=== PATIENT | female | born 1940 | race Caucasian/White ===

== ENCOUNTER 2017-06-24 20:41 | Emergency (ER) | payer OTHER ==
[2017-06-24 22:20] LABS: Absolute Lymphocytes (CBC) 2.2 K/uL (0.7-4.9); Absolute Monocytes 1.3 K/uL (0.1-1.3); Absolute Neutrophil 7.7 K/uL (1.8-8.0); Basophils % 0.6 % (0-1.3); Eosinophils % 1.9 % (0-4.4); Hematocrit 37.6 % (36.0-45.0); Lymphocytes % 19.5 % (15.3-44.8); MCH 28.5 pg (27.0-35.0); MCV 89.5 fL (80-100); MPV 9.5 fL (7.6-11.3); Monocytes % 11.1 % (3.3-12.3)
[2017-06-24] MEDS ORDERED: ONDANSETRON 4 MG/2 ML VIAL ONE (22:22)
[2017-06-24] MEDS ORDERED: LOPERAMIDE HCL 2 MG CAPSULE ONE (22:22)
[2017-06-24] MEDS ORDERED: cloNIDine HCl 0.1 MG TAB ONE (22:22)
[2017-06-24 22:25] LABS: Albumin 3.7 g/dL (3.2-5.5); Bilirubin Total 0.6 mg/dL (0.3-1.2); Protein, Total 7.5 g/dL (6.0-8.3)
--- NOTE | 2017-06-24 22:25 | RAD REPORT ---
EXAM DESCRIPTION: Giovanny Single View06/24/2017 10:13 pm CLINICAL HISTORY: Chest pain COMPARISON: March 2017 FINDINGS: The lungs appear clear of acute infiltrate. The heart is normal size IMPRESSION: No acute abnormalities displayed
--- NOTE | 2017-06-25 00:08 | ER ---
Nurse's Notes [facility] Name: Bharati Lancaster Age: 77 yrs Sex: Female : 1940 Arrival Date: 06/24/2017 Time: 20:57 Bed 4 Private MD: Diagnosis: Gastroenteritis;Uncontrolled hypertension Presentation: 06/24 21:06 Presenting complaint: Patient states: nausea/diarrhea. pt denies vomiting. pt c/o ak1 general weakness. pt vitals at home at 2030 were 216/116 110pulse. Transition of care: patient was not received from another setting of care. Onset of symptoms was June 24, 2017. Care prior to arrival: None. 21:06 Method Of Arrival: Wheelchair ak1 21:06 Acuity: GONZALEZ 3 ak1 Historical: - Allergies: 21:07 ACETAMINOPHEN; ak1 21:07 BACLOFEN; ak1 21:07 Codeine; ak1 21:07 Darvocet-N 100; ak1 21:07 Hydrocodone-Acetaminophen; ak1 21:07 plastic tape; ak1 21:07 Morphine; ak1 - Home Meds: 21:39 allopurinol 300 mg Oral tab 1 tab once daily [Active]; amlodipine 5 mg tab once daily tl2 [Active]; calcium carbonate 600 mg (1,500 mg) Oral tab daily [Active]; clonidine HCl 0.2 mg Oral tab 3 times per day [Active]; clonidine HCl 0.1 mg Oral tab [Active]; CURAPHEN daily [Active]; furosemide 20 mg Oral tab 1 tab Every other day [Active]; MCT Oil 7.7 kcal/mL Oral oil Every other day [Active]; Multiple Vitamins Oral tab daily [Active]; Neurontin 300 mg Oral cap 1 cap 3 times per day [Active]; omeprazole 40 mg Oral cpDR 1 cap once daily [Active]; paroxetine HCl 20 mg Oral tab [Active]; Synthroid 50 mcg Oral tab 1 tab once daily [Active]; Vitamin D3 800 unit Oral tab daily [Active]; - PMHx: 21:39 Atrial Fib; CHF; Hyperlipidemia; Hypertension; Hypothyroidism; tl2 - Immunization history:: Adult Immunizations up to date. - Social history:: Smoking status: Patient/guardian denies using tobacco. Screenin:34 Abuse screen: Denies threats or abuse. Nutritional screening: No deficits noted. tl2 Tuberculosis screening: No symptoms or risk factors identified. Fall Risk Secondary diagnosis (15 points). Assessment: 21:33 General: Appears in no apparent distress. uncomfortable, Behavior is cooperative, tl2 appropriate for age, anxious. 21:34 Pain: Complains of pain in headache. Neuro: Level of Consciousness is awake, alert, tl2 obeys commands, Oriented to person, place, time, situation. Cardiovascular: Reports shortness of breath, Denies chest pain, Rhythm is sinus rhythm. Respiratory: Reports shortness of breath Airway is patent Respiratory effort is even, unlabored, Respiratory pattern is regular, symmetrical, Breath sounds are clear bilaterally. GI: Abdomen is round Bowel sounds present X 4 quads. Reports diarrhea, nausea, Patient currently denies vomiting. : No signs and/or symptoms were reported regarding the genitourinary system. Derm: Skin is pink, warm \T\ dry. 21:39 Reassessment: Patient appears in no apparent distress at this time. Pt states she did tl2 not take her BP medication today because of her nausea. 22:52 Reassessment: Patient appears in no apparent distress at this time. Patient and/or tl2 family updated on plan of care and expected duration. Pain level reassessed. Patient is alert, oriented x 3, equal unlabored respirations, skin warm/dry/pink. BP trending down, will continue to monitor Patient states feeling better. 23:54 Reassessment: Patient appears in no apparent distress at this time. Patient and/or bp family updated on plan of care and expected duration. Pain level reassessed. Patient is alert, oriented x 3, equal unlabored respirations, skin warm/dry/pink. Patient states feeling better. 06/25 00:28 Reassessment: PT D/C HOME WITH FAMILY VIA W/C, DX WITH VIRAL GASTROENTERITIS. bp Vital Signs: 06/24 21:05 BP 235 / 86; Pulse 96; Resp 18; Temp 99.1(TE); Pulse Ox 96% on R/A; Weight 90.72 kg ak1 (R); Height 5 ft. 5 in. (165.10 cm) (R); Pain 0/10; 22:09 BP 222 / 89; Pulse 102; Resp 22; Pulse Ox 99% on R/A; tl2 22:48 BP 200 / 83; Pulse 95; Resp 19; Pulse Ox 96% on R/A; mt 22:52 BP 200 / 83; Pulse 92; Resp 18; Pulse Ox 94% on R/A; tl2 23:03 BP 189 / 75; Pulse 98; Resp 18; Pulse Ox 98% on R/A; bp 23:54 BP 168 / 72; Pulse 92; Resp 18; Pulse Ox 95% on R/A; bp 06/25 00:08 BP 182 / 69; Pulse 88; Resp 17; Pulse Ox 98% on R/A; mt 06/24 21:05 Body Mass Index 33.28 (90.72 kg, 165.10 cm) ak1 ED Course: 06/24 20:57 Patient arrived in ED. al2 21:07 Triage completed. ak1 21:07 Arm band placed on Patient placed in an exam room, on a stretcher, Patient notified of ak1 wait time. 21:34 Patient has correct armband on for positive identification. Bed in low position. Call tl2 light in reach. Side rails up X2. Adult w/ patient. 21:38 Ryder Briscoe MD is Attending Physician. ps1 21:52 Pramod Lee RN is Primary Nurse. bp 22:00 Inserted saline lock: 22 gauge in left forearm, using aseptic technique. Blood tl2 collected. placed by TOI Perez. 22:12 X-ray completed. Portable x-ray completed in exam room. Patient tolerated procedure kw1 well. 22:27 BNP Sent. bp 22:27 CXR XRAY Sent. bp 22:27 CBC with Diff Sent. bp 22:27 CMP Sent. bp 22:27 Troponin (emerg Dept Use Only) Sent. bp 06/25 00:28 No provider procedures requiring assistance completed. IV discontinued, intact, bp bleeding controlled, No redness/swelling at site. Pressure dressing applied. Administered Medications: 06/24 22:07 Drug: Zofran 4 mg Route: IVP; Site: left forearm; tl2 06/25 00:28 Follow up: Response: No adverse reaction bp 06/24 22:08 Drug: Imodium A-D 2 mg Route: PO; tl2 06/25 00:27 Follow up: Response: No adverse reaction bp 06/24 22:08 Drug: cloNIDine 0.2 mg Route: PO; tl2 06/25 00:27 Follow up: Response: No adverse reaction bp Outcome: 00:07 Discharge ordered by . ps1 00:29 Discharged to home via wheelchair, with family. bp 00:29 Condition: stable 00:29 Discharge instructions given to patient, family, Instructed on discharge instructions, follow up and referral plans. medication usage, Demonstrated understanding of instructions, follow-up care, medications, Prescriptions given X 2. 00:29 Patient left the ED. bp Signatures: Sarai Paredes RN RN ak1 Lala Cleary RN RN tl2 Christin Rose mt, Brian, RN RN bp Ryder Briscoe MD MD ps1 Stiven, Madelin arteaga1 Mechelle Vigil2 Corrections: (The following items were deleted from the chart) 06/24 21:36 21:33 General: Appears in no apparent distress. uncomfortable, Behavior is cooperative, tl2 appropriate for age, anxious, tl2
--- NOTE | 2017-06-25 00:08 | EDPHYS ---
Physician Documentation [facility] Name: Bharati Lancaster Age: 77 yrs Sex: Female : 1940 Arrival Date: 06/24/2017 Time: 20:57 Bed 4 Private MD: ED Physician Ryder Briscoe HPI: 06/24 23:58 This 77 yrs old Female presents to ER via Wheelchair with complaints of ps1 Nausea/Vomiting/Diarrhea. 23:58 The patient presents to the emergency department with nausea, vomiting, diarrhea, that ps1 is continuous, 10 times today. Onset: The symptoms/episode began/occurred 2 day(s) ago. Possible causes: unknown. The symptoms are alleviated by nothing. Associated signs and symptoms: Pertinent positives: headache and high blood pressure secondary to not being able to take medications. . hx of CHF. Sees Dr. Morton. . Historical: - Allergies: 21:07 ACETAMINOPHEN; ak1 21:07 BACLOFEN; ak1 21:07 Codeine; ak1 21:07 Darvocet-N 100; ak1 21:07 Hydrocodone-Acetaminophen; ak1 21:07 plastic tape; ak1 21:07 Morphine; ak1 - Home Meds: 21:39 allopurinol 300 mg Oral tab 1 tab once daily [Active]; amlodipine 5 mg tab once daily tl2 [Active]; calcium carbonate 600 mg (1,500 mg) Oral tab daily [Active]; clonidine HCl 0.2 mg Oral tab 3 times per day [Active]; clonidine HCl 0.1 mg Oral tab [Active]; CURAPHEN daily [Active]; furosemide 20 mg Oral tab 1 tab Every other day [Active]; MCT Oil 7.7 kcal/mL Oral oil Every other day [Active]; Multiple Vitamins Oral tab daily [Active]; Neurontin 300 mg Oral cap 1 cap 3 times per day [Active]; omeprazole 40 mg Oral cpDR 1 cap once daily [Active]; paroxetine HCl 20 mg Oral tab [Active]; Synthroid 50 mcg Oral tab 1 tab once daily [Active]; Vitamin D3 800 unit Oral tab daily [Active]; - PMHx: 21:39 Atrial Fib; CHF; Hyperlipidemia; Hypertension; Hypothyroidism; tl2 - Immunization history:: Adult Immunizations up to date. - Social history:: Smoking status: Patient/guardian denies using tobacco. ROS: 23:58 Constitutional: Negative for fever, chills, and weight loss, Eyes: Negative for injury, ps1 pain, redness, and discharge, Neck: Negative for injury, pain, and swelling, Cardiovascular: Negative for chest pain, palpitations, and edema, Respiratory: Negative for shortness of breath, cough, wheezing, and pleuritic chest pain, MS/Extremity: Negative for injury and deformity, Skin: Negative for injury, rash, and discoloration. 23:58 Abdomen/GI: Positive for nausea, vomiting, and diarrhea. Exam: 23:58 Constitutional: This is a well developed, well nourished patient who is awake, alert, ps1 and in no acute distress. Head/Face: Normocephalic, atraumatic. Neck: Trachea midline, no thyromegaly or masses palpated, and no cervical lymphadenopathy. Supple, full range of motion without nuchal rigidity, or vertebral point tenderness. No Meningismus. Chest/axilla: Normal chest wall appearance and motion. Nontender with no deformity. No lesions are appreciated. Cardiovascular: Regular rate and rhythm. No gallops, murmurs, or rubs. Normal PMI, no JVD. No pulse deficits. Respiratory: Lungs have equal breath sounds bilaterally, clear to auscultation and percussion. No rales, rhonchi or wheezes noted. No increased work of breathing, no retractions or nasal flaring. Abdomen/GI: Soft, non-tender, with normal bowel sounds. No distension or tympany. No guarding or rebound. No evidence of tenderness throughout. Skin: Warm, dry with normal turgor. Normal color with no rashes, no lesions, and no evidence of cellulitis. MS/ Extremity: Pulses equal, no cyanosis. Neurovascular intact. Full, normal range of motion. Neuro: Awake and alert, GCS 15, oriented to person, place, time, and situation. Cranial nerves II-XII grossly intact. Sensory grossly intact. Vital Signs: 21:05 BP 235 / 86; Pulse 96; Resp 18; Temp 99.1(TE); Pulse Ox 96% on R/A; Weight 90.72 kg ak1 (R); Height 5 ft. 5 in. (165.10 cm) (R); Pain 0/10; 22:09 BP 222 / 89; Pulse 102; Resp 22; Pulse Ox 99% on R/A; tl2 22:48 BP 200 / 83; Pulse 95; Resp 19; Pulse Ox 96% on R/A; mt 22:52 BP 200 / 83; Pulse 92; Resp 18; Pulse Ox 94% on R/A; tl2 23:03 BP 189 / 75; Pulse 98; Resp 18; Pulse Ox 98% on R/A; bp 23:54 BP 168 / 72; Pulse 92; Resp 18; Pulse Ox 95% on R/A; bp 03/ 00:08 BP 182 / 69; Pulse 88; Resp 17; Pulse Ox 98% on R/A; mt 03 21:05 Body Mass Index 33.28 (90.72 kg, 165.10 cm) ak1 MDM: 06/24 21:46 Patient medically screened. ps1 06/25 00:04 Data reviewed: vital signs, nurses notes, lab test result(s), EKG, radiologic studies. ps1 ED course: Gave zofran and immodium. Symptoms improved. Able to tolerate PO. Clonidine given. BP improved. Stable to go home with follow up with DR. Morton. Home with zofran. . 03 21:46 Order name: CBC with Diff ps1 06/24 21:46 Order name: CMP ps1 03 21:46 Order name: Troponin (emerg Dept Use Only) ps1 06/24 22:21 Order name: CBC with Automated Diff; Complete Time: 22:21 EDMS 06/24 22:21 Order name: BNP ps1 06/24 22:22 Order name: Comprehensive Metabolic Panel; Complete Time: 22:31 EDMS 06/24 21:46 Order name: CXR XRAY ps1 06/24 22:26 Order name: RAD; Complete Time: 22:31 EDMS 06/24 22:28 Order name: Troponin (Emerg Dept Use Only); Complete Time: 22:31 EDMS 06/24 23:08 Order name: BNP B-Type Natriuretic Peptide; Complete Time: 23:38 EDMS EC/15 21:23 Rate is 99 beats/min. Rhythm is regular. QRS [place] is Normal. TN interval is normal. QRS ps1 interval is prolonged. QT interval is prolonged at 518 msec. No Q waves. T waves are Normal. No ST changes noted. Clinical impression: IRBBB. PVC's. Non-specific Twaves. . Interpreted by me. Administered Medications: 22:07 Drug: Zofran 4 mg Route: IVP; Site: left forearm; tl2 06/25 00:28 Follow up: Response: No adverse reaction bp 06/24 22:08 Drug: Imodium A-D 2 mg Route: PO; tl2 06/25 00:27 Follow up: Response: No adverse reaction bp 06/24 22:08 Drug: cloNIDine 0.2 mg Route: PO; tl2 06/25 00:27 Follow up: Response: No adverse reaction bp Disposition: 06/25/17 00:07 Discharged to Home. Impression: Gastroenteritis, Uncontrolled hypertension. - Condition is Stable. - Discharge Instructions: Viral Gastroenteritis. - Prescriptions for Imodium A- D 2 mg Oral tablet - take 2 tablet by ORAL route every 4-6 hours after 1st loose stool and 1 tablet (2 mg) after each next bowel movement; do not exceed 16 mg in 24hrs; 20 tablet. Zofran 4 mg Oral Tablet - take 1 tablet by ORAL route every 12 hours As needed; 20 tablet. - Medication Reconciliation Form, Thank You Letter, Antibiotic Education, Prescription Opioid Use form. - Follow up: Emergency Department; When: As needed; Reason: Fever > 102 F, Trouble breathing, Worsening of condition. Follow up: Private Physician; When: As needed; Reason: Recheck today's complaints, Continuance of care, Re-evaluation by your physician. - Problem is an ongoing problem. - Symptoms have improved. Signatures: Dispatcher [employer] Sarai Ma RN RN ak1 Lala Cleary RN RN tl2 Pramod Lee RN RN bp Ryder Briscoe MD MD ps1
[2017-06-25 00:40] VITALS: TEMP 99.1
[2017-06-25 00:49] VITALS: BP 182/69; O2SAT 98
--- NOTE | 2017-06-25 12:43 | EKG ---
Test Date: 2017-06-24 Test Time: 21:23:30 Parking Lot Attendant And Cashier: JUDY MEASUREMENT RESULTS: Intervals: Rate: 99 OH: 140 QRSD: 110 QT: 404 QTc: 518 Letts: P: 72 OH: 140 QRS: -47 T: 33 INTERPRETIVE STATEMENTS: Sinus rhythm with occasional premature ventricular complexes Left axis deviation Right bundle branch block Prolonged QT Abnormal ECG Compared to ECG 04/06/2017 07:24:55 Ventricular premature complex(es) now present Electronically Signed On 06-25-17 12:43:15 CDT by Abhijit Joseph
== END 2017-06-25 00:29 | disposition home or self-care (01) ==
LOC: ER 20:41
DX: K52.9 Noninfective gastroenteritis and colitis, unspecified (principal); I10 Essential (primary) hypertension; E78.5 Hyperlipidemia, unspecified; I50.9 Heart failure, unspecified; I48.91 Unspecified atrial fibrillation; E03.9 Hypothyroidism, unspecified; Z88.6 Allergy status to analgesic agent; Z88.5 Allergy status to narcotic agent; Z91.048 Other nonmedicinal substance allergy status
CPT/HCPCS: 36415; 71045; 80053; 83880; 84484; 85025; 93005; 96374; 99284; J2405

== ENCOUNTER 2018-01-07 16:46 | Emergency (ER) | payer OTHER ==
--- NOTE | 2018-01-07 17:37 | RAD REPORT ---
EXAM DESCRIPTION: CT - Head Brain Wo Cont - 01/07/2018 5:28 pm CLINICAL HISTORY: Headache, hypertension COMPARISON: CT study July 2016 TECHNIQUE: Axial 5 mm thick images of the head were obtained without IV contrast. All CT scans are performed using dose optimization technique as appropriate and may include automated exposure control or mA/KV adjustment according to patient size. FINDINGS: No intracranial hemorrhage, mass, edema or shift of mid-line structures. No acute infarcti on changes seen. No acute cortical based infarction. No cortical edema or sulcal effacement. Atrophy changes are mild. Ventricular size is in proportion. Chronic ischemic change seen in the cerebral whi te matter. Intracranial findings are similar to the comparison study. Mastoid air cells and visualized portions of the paranasal sinuses are clear. No acute bony findings. IMPRESSION: No acute intracranial finding identifiable. Atrophy and chronic ischemic pattern is similar to July 2016.
[2018-01-07 18:17] LABS: Urine Amorphous Sediment 1+ /HPF (NONE SEEN); Urine Bacteria <20 /HPF (<20); Urine Culture Reflex Order REFLEXED; Urine RBC <5 /HPF (NONE SEEN)
[2018-01-07 18:18] LABS: Urine Blood NEGATIVE (NEG); Urine Glucose NEGATIVE (NEG); Urine Protein 3+ (NEG); Urine pH 5.5 (5.0-7.0)
--- NOTE | 2018-01-07 18:20 | RAD REPORT ---
EXAM DESCRIPTION: RAD - Chest Single View - 01/07/2018 6:12 pm CLINICAL HISTORY: lower extremity swelling Chest pain. COMPARISON: Chest Single View dated 06/24/2017; Chest Single View dated 04/06/2017; Chest Single View dated 04/05/2017; Chest Single View dated 12/01/2016 FINDINGS: Portable technique limits examination quality. The lungs are grossly clear. The heart is normal in size. No displaced fractures. IMPRESSION: No acute intrathoracic process suspected.
[2018-01-07 18:27] LABS: Absolute Lymphocytes (CBC) 1.8 K/uL (0.7-4.9); Absolute Monocytes 1.1 K/uL (0.1-1.3); Absolute Neutrophil 6.9 K/uL (1.8-8.0); Basophils % 0.9 % (0-1.3); Eosinophils % 3.8 % (0-4.4); Hematocrit 37.2 % (36.0-45.0); Lymphocytes % 17.7 % (15.3-44.8); MCH 30.5 pg (27.0-35.0); MCV 90.8 fL (80-100); MPV 9.3 fL (7.6-11.3); Monocytes % 10.8 % (3.3-12.3)
[2018-01-07 18:32] LABS: Protime INR 0.97
[2018-01-07 18:47] LABS: Magnesium 2.1 mg/dL (1.8-2.4); Potassium 4.1 mmol/L (3.5-5.1)
--- NOTE | 2018-01-07 19:06 | RAD REPORT ---
EXAM DESCRIPTION: US - Extrem Venous W Compress Jey - 01/07/2018 6:56 pm CLINICAL HISTORY: swelling lower extremities Bilateral leg edema and swelling. COMPARISON: Extremity Venous Uni Ltd dated 06/09/2016 TECHNIQUE: Real-time sonographic interrogation of the left and right lower extremity deep venous sys tems was performed. FINDINGS: Normal compressibility, flow augmentation, phasic flow and spontaneous flow is identified in both the left and right lower extremity deep venous systems. IMPRESSION: No sonographic evidence of left or right lower extremity deep venous thrombosis.
[2018-01-07] MEDS ORDERED: FUROSEMIDE 20 MG/ 2ML VIAL ONE (19:19)
[2018-01-07] MEDS ORDERED: POTASSIUM 25 MEQ EFFERV TAB ONE (19:20)
--- NOTE | 2018-01-07 19:27 | EDPHYS ---
Physician Documentation [facility] Name: Bharati Lancaster Age: 77 yrs Sex: Female : 1940 Arrival Date: 01/07/2018 Time: 16:47 Bed 20 Private MD: Casa Morton V ED Physician Brandon Shaver HPI: 01/07 17:15 This 77 yrs old Female presents to ER via Wheelchair with complaints of High cp Blood Pressure. 17:15 The patient has elevated blood pressure and discovered this at home, with a home cp device. Associated signs and symptoms: Pertinent positives: headache, Pertinent negatives: chest pain, visual changes, vomiting, weakness. Severity of symptoms: At its worst the blood pressure was 222 mm Hg, in the emergency department the blood pressure is improved, 179 mm Hg. Historical: - Allergies: 16:54 ACETAMINOPHEN; aa5 16:54 BACLOFEN; aa5 16:54 Codeine; aa5 16:54 Darvocet-N 100; aa5 16:54 Hydrocodone-Acetaminophen; aa5 16:54 Morphine; aa5 16:54 plastic tape; aa5 - Home Meds: 17:07 allopurinol 300 mg Oral tab 1 tab once daily [Active]; Bystolic 20 mg oral tab once aa5 daily [Active]; clonidine HCl 0.2 mg Oral tab 3 times per day [Active]; colchicine 0.6 mg Oral cap every two hours until pain goes away or diarrhea starts [Active]; doxepin 25mg QHS miscellaneous [Active]; Neurontin 300 mg Oral cap 1 cap 3 times per day [Active]; hydralazine 100 mg Oral tab 2 times per day [Active]; levothyroxine 50 mcg tab once daily [Active]; ProAir HFA 90 mcg/actuation inhalation HFAA 2 puffs every 6 hours [Active]; torsemide 10 mg oral tab once daily [Active]; Xarelto 20 mg oral tab 1 tab once daily [Active]; - PMHx: 16:54 Atrial Fib; CHF; Hyperlipidemia; Hypertension; Hypothyroidism; Degenative join disease; aa5 Gout; GERD; Cervical radicular pain; - PSHx: 16:54 hand, Knee, GB, Shoulder; Appendectomy; aa5 16:54 Cholecystectomy; aa5 - Immunization history:: Adult Immunizations up to date. - Social history:: Smoking status: Patient/guardian denies using tobacco. - Ebola Screening: : No symptoms or risks identified at this time. ROS: 17:20 Constitutional: Negative for body aches, chills, fever, poor PO intake. cp 17:20 Eyes: Negative for injury, pain, redness, and discharge. cp 17:20 ENT: Negative for drainage from ear(s), ear pain, sore throat, difficulty swallowing, difficulty handling secretions. 17:20 Cardiovascular: Negative for chest pain, edema, palpitations. 17:20 Respiratory: Negative for cough, shortness of breath, wheezing. 17:20 Abdomen/GI: Negative for abdominal pain, nausea, vomiting, and diarrhea, anorexia, black/tarry stool, rectal bleeding. 17:20 Back: Negative for pain at rest, pain with movement, radiated pain. 17:20 Skin: Negative for cellulitis, rash. 17:20 Neuro: Positive for headache, Negative for altered mental status, syncope, near syncope, weakness. 17:20 All other systems are negative. Exam: 17:25 Constitutional: The patient appears in no acute distress, alert, awake, cp non-diaphoretic, non-toxic, well developed, well nourished. 17:25 Head/Face: Normocephalic, atraumatic. cp 17:25 Eyes: Periorbital structures: appear normal, Pupils: equal, round, and reactive to light and accomodation, Extraocular movements: intact throughout, Conjunctiva: normal, no exudate, no injection, Sclera: no appreciated abnormality, Lids and lashes: appear normal, bilaterally. 17:25 ENT: External ear(s): are unremarkable, Ear canal(s): are normal, clear, TM's: bulging, is not appreciated, bilaterally, dullness, bilaterally, erythema, is not appreciated, bilaterally, Nose: is normal, Mouth: Lips: moist, Oral mucosa: pink and intact, moist, Posterior pharynx: is normal, airway is patent, no erythema, no exudate. 17:25 Neck: ROM/movement: is normal, is supple, without pain, no range of motions limitations, no meningismus, no nuchal rigidity. 17:25 Chest/axilla: Inspection: normal, Palpation: is normal, no crepitus, no tenderness. 17:25 Cardiovascular: Rate: normal, Rhythm: regular, Pulses: Pulses are 2+ in right radial artery and left radial artery. Edema: ankle edema, that is mild, JVD: is not appreciated. 17:25 Respiratory: the patient does not display signs of respiratory distress, Respirations: normal, no use of accessory muscles, no retractions, no splinting, no tachypnea, labored breathing, is not present, Breath sounds: are clear throughout, no decreased breath sounds, no stridor, no wheezing. 17:25 Abdomen/GI: Inspection: abdomen appears normal, Palpation: abdomen is soft and non-tender, in all quadrants, rebound tenderness, is not appreciated, voluntary guarding, is not appreciated, involuntary guarding, is not appreciated. 17:25 Back: pain, is absent, ROM is normal. 17:25 Skin: cellulitis, is not appreciated, no rash present. 17:25 Neuro: Orientation: to person, place \T\ time. Mentation: is normal, Cerebellar function: is grossly normal, Motor: moves all fours, strength is normal, Sensation: no obvious gross deficits. 17:53 ECG was reviewed by the Attending Physician. cp Vital Signs: 16:54 BP 179 / 70; Pulse 80; Resp 18 S; Temp 98.0(TE); Pulse Ox 95% on R/A; Weight 90.72 kg aa5 (R); Height 5 ft. 4 in. (162.56 cm) (R); Pain 4/10; 18:21 BP 168 / 101; Pulse 61; Resp 20; Pulse Ox 96% on R/A; aj 19:01 BP 177 / 77; Pulse 76; Resp 18; Pulse Ox 96% on R/A; aj 20:10 BP 189 / 68 Supine; Pulse 60; Resp 20 S; Pulse Ox 95% on R/A; bp 20:13 BP 200 / 68 Sitting; Pulse 66; Resp 20 S; Pulse Ox 95% on R/A; bp 20:15 BP 187 / 64 Standing; Pulse 65; Resp 20 S; Pulse Ox 96% on R/A; bp 16:54 Body Mass Index 34.33 (90.72 kg, 162.56 cm) aa5 MDM: 17:10 Patient medically screened. cp 19:15 Physician consultation: Casa Morton MD was contacted at 19:15, regarding patient's cp condition, outpatient follow-up, next week. 19:25 Data reviewed: vital signs, nurses notes, lab test result(s), EKG, radiologic studies, cp plain films, ultrasound. 19:25 Response to treatment: Blood pressure improved, but remains elevated. Patient has oral cp clonidine to take PRN. Will discharge to home for continued monitoring. 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 01/07 17:49 Order name: Urine Microscopic Only; Complete Time: 18:38 01/07 18:38 Interpretation: Normal except: UWBC 20-50. 01/07 17:49 Order name: Urine Culture 01/07 17:51 Order name: Urine Dipstick--Ancillary (enter results); Complete Time: 18:38 01/07 18:38 Interpretation: Normal except: UPROT 3+; UESTR TRACE. 01/07 18:00 Order name: CBC with Diff; Complete Time: 18:38 01/07 18:00 Order name: BMP; Complete Time: 18:52 01/07 18:52 Interpretation: Normal except: CL 109; GLUC 113; BUN 24; GFR 40. 01/07 18:00 Order name: BNP; Complete Time: 18:52 01/07 18:53 Interpretation: Abnormal: NT PRO-BNP 1415. 01/07 17:16 Order name: CT Head Brain wo Cont; Complete Time: 17:45 01/07 18:00 Order name: PT-INR; Complete Time: 18:38 01/07 18:00 Order name: Ptt, Activated; Complete Time: 18:38 01/07 18:00 Order name: US Extremity Venous W Compression Jey; Complete Time: 19:13 01/07 18:00 Order name: Magnesium; Complete Time: 18:52 01/07 18:00 Order name: XRAY Chest (1 view); Complete Time: 18:38 01/07 17:02 Order name: Orthostatics; Complete Time: 20:39 snw 01/07 17:10 Order name: EKG; Complete Time: 17:11 cp 01/07 17:10 Order name: EKG - Nurse/Tech; Complete Time: 17:54 cp 01/07 17:16 Order name: Urine Dipstick-Ancillary (obtain specimen); Complete Time: 17:53 cp EC:53 Rate is 58 beats/min. Rhythm is regular. [place] interval is normal. QRS interval is cp prolonged. QT interval is normal. T waves are Inverted in leads III, aVF. Interpreted by me. Reviewed by me. Administered Medications: 19:15 Drug: Potassium Effervescent Tablet 25 mEq Route: PO; cc3 20:00 Follow up: Response: No adverse reaction cc3 19:15 Drug: Lasix 20 mg Route: IVP; Site: right antecubital; cc3 20:00 Follow up: Response: No adverse reaction cc3 Disposition: 01/07/18 19:26 Discharged to Home. Impression: Hypertensive heart disease, Edema, unspecified - Mild Bilateral Lower Extremities. - Condition is Stable. - Discharge Instructions: Edema, Hypertension, How to Take Your Blood Pressure, [id number], Managing Your Hypertension. - Medication Reconciliation Form, Thank You Letter, Antibiotic Education, Prescription Opioid Use form. - Follow up: Casa Morton MD; When: 01/10/2018; Reason: hypertension. - Problem is an acute exacerbation. - Symptoms have improved. Addendum: 01/10/2018 07:48 Co-signature as Attending Physician, Brandon Shaver MD. r n Signatures: Dispatcher [employer] Shelbie Sawyer RN RN aj Therrien, Shelly, TAPE MAKING MACHINE OPERATOR-C TAPE MAKING MACHINE OPERATOR-Csnw Brandon Shaver MD MD rn Calderon, Audri, RN RN aa5 Matt Reilly PA PA cp Cordel, Charlene cc3 Corrections: (The following items were deleted from the chart) 01/07 20:39 19:26 01/07/2018 19:26 Discharged to Home. Impression: Hypertensive heart disease; cc3 Edema, unspecified - Mild Bilateral Lower Extremities. Condition is Stable. Forms are Medication Reconciliation Form, Thank You Letter, Antibiotic Education, Prescription Opioid Use. Follow up: Casa Morton; When: 01/10/2018; Reason: hypertension. Problem is an acute exacerbation. Symptoms have improved. cp
--- NOTE | 2018-01-07 19:27 | ER ---
Nurse's Notes [facility] Name: Bharati Lancaster Age: 77 yrs Sex: Female : 1940 Arrival Date: 01/07/2018 Time: 16:47 Bed 20 Private MD: Casa Morton V Diagnosis: Hypertensive heart disease;Edema, unspecified-Mild Bilateral Lower Extremities Presentation: 01/07 16:49 Presenting complaint: Patient states: "my blood pressure was 222/111 30 minutes ago". aa5 Pt also reports feeling lightheaded and headache today. Pt states "my blood pressure has been gradually getting higher and higher but today it was the highest". Pt reports taking Clonidine 0.2 mg and Bystolic 20 mg, and hydralazine 100 mg around 1540 today. Transition of care: patient was not received from another setting of care. Onset of symptoms was January 07, 2018. Risk Assessment: Do you want to hurt yourself or someone else? Patient reports no desire to harm self or others. Initial Sepsis Screen: Does the patient meet any 2 criteria? No. Patient's initial sepsis screen is negative. Does the patient have a suspected source of infection? No. Patient's initial sepsis screen is negative. Care prior to arrival: None. 16:49 Method Of Arrival: Wheelchair aa5 16:49 Acuity: GONZALEZ 3 aa5 Historical: - Allergies: 16:54 ACETAMINOPHEN; aa5 16:54 BACLOFEN; aa5 16:54 Codeine; aa5 16:54 Darvocet-N 100; aa5 16:54 Hydrocodone-Acetaminophen; aa5 16:54 Morphine; aa5 16:54 plastic tape; aa5 - Home Meds: 17:07 allopurinol 300 mg Oral tab 1 tab once daily [Active]; Bystolic 20 mg oral tab once aa5 daily [Active]; clonidine HCl 0.2 mg Oral tab 3 times per day [Active]; colchicine 0.6 mg Oral cap every two hours until pain goes away or diarrhea starts [Active]; doxepin 25mg QHS miscellaneous [Active]; Neurontin 300 mg Oral cap 1 cap 3 times per day [Active]; hydralazine 100 mg Oral tab 2 times per day [Active]; levothyroxine 50 mcg tab once daily [Active]; ProAir HFA 90 mcg/actuation inhalation HFAA 2 puffs every 6 hours [Active]; torsemide 10 mg oral tab once daily [Active]; Xarelto 20 mg oral tab 1 tab once daily [Active]; - PMHx: 16:54 Atrial Fib; CHF; Hyperlipidemia; Hypertension; Hypothyroidism; Degenative join disease; aa5 Gout; GERD; Cervical radicular pain; - PSHx: 16:54 hand, Knee, GB, Shoulder; Appendectomy; aa5 16:54 Cholecystectomy; aa5 - Immunization history:: Adult Immunizations up to date. - Social history:: Smoking status: Patient/guardian denies using tobacco. - Ebola Screening: : No symptoms or risks identified at this time. Screenin:21 Abuse screen: Denies threats or abuse. Denies injuries from another. Nutritional aj screening: No deficits noted. Tuberculosis screening: No symptoms or risk factors identified. Fall Risk None identified. Assessment: 18:21 General: Appears in no apparent distress. comfortable, Behavior is calm, cooperative, aj appropriate for age. Pain: Denies pain. Neuro: Level of Consciousness is awake, alert, obeys commands, Oriented to person, place, time, situation, Appropriate for age. Cardiovascular: Denies chest pain, Capillary refill < 3 seconds in bilateral fingers Patient's skin is warm and dry. Edema is 2+ to left midcalf, left ankle, left foot, left toes, right midcalf, right ankle, right foot and right toes. Respiratory: Airway is patent Respiratory effort is even, unlabored, Respiratory pattern is regular, symmetrical. Derm: Skin is intact, is healthy with good turgor, Skin is pink, warm \\T\\ dry. normal. 19:15 Reassessment: Patient appears in no apparent distress at this time. Patient and/or cc3 family updated on plan of care and expected duration. Pain level reassessed. Patient is alert, oriented x 3, equal unlabored respirations, skin warm/dry/pink. Received patient from morning shift TOI Morfin as a case of high blood pressure. With intravenous cannula gauge 22 at the right ACV no ongoing IVF noted. 20:20 Reassessment: Patient appears in no apparent distress at this time. Patient and/or cc3 family updated on plan of care and expected duration. Pain level reassessed. Patient is alert, oriented x 3, equal unlabored respirations, skin warm/dry/pink. Patient discharged home by JERICA Reilly, no prescription was given. IV cannula removed and patient left ER vitally stable by wheelchair with family. Vital Signs: 16:54 BP 179 / 70; Pulse 80; Resp 18 S; Temp 98.0(TE); Pulse Ox 95% on R/A; Weight 90.72 kg aa5 (R); Height 5 ft. 4 in. (162.56 cm) (R); Pain 4/10; 18:21 BP 168 / 101; Pulse 61; Resp 20; Pulse Ox 96% on R/A; aj 19:01 BP 177 / 77; Pulse 76; Resp 18; Pulse Ox 96% on R/A; aj 20:10 BP 189 / 68 Supine; Pulse 60; Resp 20 S; Pulse Ox 95% on R/A; bp 20:13 BP 200 / 68 Sitting; Pulse 66; Resp 20 S; Pulse Ox 95% on R/A; bp 20:15 BP 187 / 64 Standing; Pulse 65; Resp 20 S; Pulse Ox 96% on R/A; bp 16:54 Body Mass Index 34.33 (90.72 kg, 162.56 cm) aa5 ED Course: 16:47 Patient arrived in ED. mr 16:47 Casa Morton MD is Private Physician. mr 16:52 Triage completed. aa5 16:52 Arm band placed on. aa5 17:10 Matt Reilly PA is PHCP. cp 17:10 Brandon Shaver MD is Attending Physician. cp 17:13 Shelbie Cuevas, RN is Primary Nurse. aj 17:[address] via wheelchair. nj 17:27 CT completed. Patient tolerated procedure well. Patient moved back from CT. nj 17:27 CT Head Brain wo Cont In Process Unspecified. EDMS 17:50 EKG done, by biodiesel technology manager. reviewed by Matt PIZANO. sm3 18:12 XRAY Chest (1 view) In Process Unspecified. EDMS 18:21 Patient has correct armband on for positive identification. aj 18:21 Inserted saline lock: 22 gauge in right antecubital area, using aseptic technique. aj Blood collected. 18:54 Ultrasound completed. Patient tolerated well. cy 18:56 US Extremity Venous W Compression Jey In Process Unspecified. EDMS 19:24 Casa Morton MD is Referral Physician. cp 20:20 No provider procedures requiring assistance completed. IV discontinued, intact, cc3 bleeding controlled, No redness/swelling at site. Pressure dressing applied. Administered Medications: 19:15 Drug: Potassium Effervescent Tablet 25 mEq Route: PO; cc3 20:00 Follow up: Response: No adverse reaction cc3 19:15 Drug: Lasix 20 mg Route: IVP; Site: right antecubital; cc3 20:00 Follow up: Response: No adverse reaction cc3 Outcome: 19:26 Discharge ordered by . cp 20:20 Discharged to home via wheelchair, with family. cc3 20:20 Condition: stable 20:20 Discharge instructions given to patient, family, Instructed on discharge instructions, follow up and referral plans. Demonstrated understanding of instructions, follow-up care. 20:39 Patient left the ED. cc3 Signatures: Dispatcher [employer] EDMS Shelbie Cuevas RN RN aj Rivera, Mary mr HutchisonValerie RN RN aa5 Matt Reilly PA PA Neville Mcknight Brian, RN RN bp Yong, Chheannith cy Montes, Shakira 3 Brina Pressley cc3 Corrections: (The following items were deleted from the chart) 17:08 16:49 Presenting complaint: Patient states: "my blood pressure was 222/111 30 minutes aa5 ago". Pt also reports feeling lightheaded and headache today. Pt states "my blood pressure has been gradually getting higher and higher but today it was the highest". Pt reports taking Clonidine 0.2 mg and Bystolic 20 mg around 1540 today aa5
[2018-01-07 21:16] VITALS: TEMP 98
[2018-01-07 21:23] VITALS: BP 187/64; O2SAT 96
--- NOTE | 2018-01-08 09:27 | EKG ---
Test Date: 2018-01-07 Test Time: 17:46:09 Automobile Assembler: RONN MEASUREMENT RESULTS: Intervals: Rate: 58 SD: 118 QRSD: 138 QT: 488 QTc: 479 [place]: P: 72 SD: 118 QRS: -38 T: -10 INTERPRETIVE STATEMENTS: Sinus bradycardia with sinus arrhythmia Left axis deviation Right bundle branch block Voltage criteria for left ventricular hypertrophy Abnormal ECG Compared to ECG 06/24/2017 21:23:30 Left ventricular hypertrophy now present Sinus rhythm no longer present Ventricular premature complex(es) no longer present Prolonged QT interval no longer present Electronically Signed On 01-08-18 09:27:00 CDT by Abhijit Joseph
== END 2018-01-07 20:39 | disposition home or self-care (01) ==
LOC: ER 16:46
DX: I11.9 Hypertensive heart disease without heart failure (principal); R60.0 Localized edema; I10 Essential (primary) hypertension; I48.91 Unspecified atrial fibrillation; I50.9 Heart failure, unspecified; E78.5 Hyperlipidemia, unspecified; E03.9 Hypothyroidism, unspecified; Z88.5 Allergy status to narcotic agent; Z88.6 Allergy status to analgesic agent; Z88.8 Allergy status to other drugs, medicaments and biological substances; Z91.048 Other nonmedicinal substance allergy status
CPT/HCPCS: 36415; 70450; 71045; 80048; 83735; 83880; 85025; 85610; 85730; 87086; 87088; 93005; 93970; 96374; 99284; J1940; 81003; 81015

== ENCOUNTER 2018-04-06 11:49 | Emergency (ER) | payer OTHER ==
[2018-04-06 13:28] LABS: Absolute Lymphocytes (CBC) 1.5 K/uL (0.7-4.9); Absolute Monocytes 0.9 K/uL (0.1-1.3); Absolute Neutrophil 7.8 K/uL (1.8-8.0); Basophils % 0.6 % (0-1.3); Eosinophils % 1.5 % (0-4.4); Hematocrit 36.8 % (36.0-45.0); Lymphocytes % 14.8 % (15.3-44.8); MPV 9.6 fL (7.6-11.3); Monocytes % 8.5 % (3.3-12.3); RBC Red Blood Cell Count 3.89 M/uL (3.86-4.86)
[2018-04-06 13:45] LABS: ALT/SGPT 25 U/L (12-78); AST/SGOT 20 U/L (15-37); Albumin 3.4 g/dL (3.4-5.0); Alkaline Phosphatase 87 U/L (45-117); BUN Blood Urea Nitrogen 24 mg/dL (7-18); Bicarbonate 24 mmol/L (21-32); Bilirubin Direct < 0.1 mg/dL (0-0.2); Bilirubin Total 0.2 mg/dL (0.2-1.0); Glucose Level 155 mg/dL (74-106); Lipase 191 U/L (73-393); Phosphorus 2.1 mg/dL (2.5-4.9); Potassium 4.3 mmol/L (3.5-5.1); Protein, Total 8.1 g/dL (6.4-8.2); Sodium Level 142 mmol/L (136-145)
[2018-04-06 13:51] LABS: Urine Bacteria 20-50 /HPF (<20); Urine Culture Reflex Order REFLEXED; Urine Mucus 1+ /HPF (NONE SEEN)
[2018-04-06] MEDS ORDERED: NA CHLORIDE 0.9% 250 ML ONE (14:02)
--- NOTE | 2018-04-06 14:11 | ER ---
Nurse's Notes [facility] Name: Bharati Lancaster Age: 78 yrs Sex: Female : 1940 Arrival Date: 04/06/2018 Time: 11:52 Bed 16 Private MD: Casa Morton V Diagnosis: Diarrhea, unspecified;Urinary tract infection, site not specified Presentation: 04/06 11:57 Presenting complaint: Patient states: my BP was up, 204/86; i have diarrhea that aj1 started last night; denies fever, denies abd pain, reports lightheaded and headache;. Transition of care: patient was not received from another setting of care. Onset of symptoms was April 06, 2018. Risk Assessment: Do you want to hurt yourself or someone else? Patient reports no desire to harm self or others. Initial Sepsis Screen: Does the patient meet any 2 criteria? Yes Does the patient have a suspected source of infection? No. Patient's initial sepsis screen is negative. Care prior to arrival: None. 11:57 Method Of Arrival: Ambulatory aj1 11:57 Acuity: GONZALEZ 3 aj1 Triage Assessment: 12:02 General: Appears in no apparent distress. uncomfortable, Behavior is calm, cooperative, aj1 appropriate for age. Pain: Denies pain. GI: Reports diarrhea. Historical: - Allergies: 12:01 ACETAMINOPHEN; aj1 12:01 BACLOFEN; aj1 12:01 Codeine; aj1 12:01 Darvocet-N 100; aj1 12:01 Hydrocodone-Acetaminophen; aj1 12:01 Morphine; aj1 12:01 plastic tape; aj1 - Home Meds: 12:01 allopurinol 300 mg Oral tab 1 tab once daily [Active]; amlodipine 5 mg tab once daily aj1 [Active]; Bystolic 20 mg Oral tab once daily [Active]; calcium carbonate 600 mg (1,500 mg) Oral tab daily [Active]; clonidine HCl 0.2 mg oral tab 1 tab 3 times per day [Active]; clonidine HCl 0.2 mg Oral tab 3 times per day [Active]; colchicine 0.6 mg Oral cap every two hours until pain goes away or diarrhea starts [Active]; CURAPHEN daily [Active]; doxepin 25mg QHS miscellaneous [Active]; furosemide 20 mg Oral tab 1 tab Every other day [Active]; hydralazine 100 mg Oral tab 2 times per day [Active]; levothyroxine 50 mcg tab once daily [Active]; MCT Oil 7.7 kcal/mL Oral oil Every other day [Active]; paroxetine HCl 20 mg Oral tab [Active]; Neurontin 300 mg Oral cap 1 cap 3 times per day [Active]; Multiple Vitamins Oral tab daily [Active]; omeprazole 40 mg Oral cpDR 1 cap once daily [Active]; ProAir HFA 90 mcg/actuation inhalation HFAA 2 puffs every 6 hours [Active]; Synthroid 50 mcg Oral tab 1 tab once daily [Active]; torsemide 10 mg Oral tab once daily [Active]; Vitamin D3 800 unit Oral tab daily [Active]; Xarelto 20 mg Oral tab 1 tab once daily [Active]; - PMHx: 12:01 Atrial Fib; Cervical radicular pain; CHF; Degenative join disease; GERD; Gout; aj1 Hyperlipidemia; Hypertension; Hypothyroidism; - PSHx: 12:01 hand, Knee, GB, Shoulder; Appendectomy; Cholecystectomy; aj1 - Immunization history:: Adult Immunizations up to date. - Social history:: Smoking status: Patient/guardian denies using tobacco, Patient/guardian denies using alcohol. - Ebola Screening: : Patient negative for fever greater than or equal to 101.5 degrees Fahrenheit, and additional compatible Ebola Virus Disease symptoms Patient denies exposure to infectious person Patient denies travel to an Ebola-affected area in the 21 days before illness onset. Screenin:02 Abuse screen: Denies threats or abuse. Denies injuries from another. Nutritional aj1 screening: No deficits noted. Tuberculosis screening: No symptoms or risk factors identified. Fall Risk None identified. Assessment: 12:30 General: Appears in no apparent distress. uncomfortable, Behavior is calm, cooperative, jl7 appropriate for age. Pain: Denies pain. Neuro: Level of Consciousness is awake, alert, obeys commands, Oriented to person, place, time, situation. Cardiovascular: Patient's skin is warm and dry. Respiratory: Airway is patent Respiratory effort is even, unlabored. GI: Abdomen is round non-distended, Bowel sounds present X 4 quads. : No signs and/or symptoms were reported regarding the genitourinary system. EENT: No signs and/or symptoms were reported regarding the EENT system. Derm: Skin is pink, warm \T\ dry. Musculoskeletal: No signs and/or symptoms reported regarding the musculoskeletal system. 13:30 Reassessment: Patient appears in no apparent distress at this time. No changes from jl7 previously documented assessment. Patient and/or family updated on plan of care and expected duration. Pain level reassessed. Patient is alert, oriented x 3, equal unlabored respirations, skin warm/dry/pink. 14:30 Reassessment: Pt will be discharged once pharmacy delivers ordered medication. General:.jl7 Vital Signs: 12:02 BP 131 / 84; Pulse 63; Resp 18; Temp 98.0(O); Pulse Ox 98% on R/A; Weight 90.72 kg; aj1 Height 5 ft. 6 in. (167.64 cm); Pain 0/10; 14:24 BP 159 / 71; Pulse 71; Resp 18; Pulse Ox 97% on R/A; mh5 12:02 Body Mass Index 32.28 (90.72 kg, 167.64 cm) aj1 ED Course: 11:52 Patient arrived in ED. mr 11:53 Casa Morton MD is Private Physician. mr 11:59 Triage completed. aj1 12:02 Arm band placed on left wrist. aj1 12:02 Patient has correct armband on for positive identification. Placed in gown. Bed in low aj1 position. Call light in reach. Side rails up X 1. 12:28 Matt Reilly PA is PHCP. cp 12:28 Uvaldo Branch MD is Attending Physician. cp 12:35 Ga Valderrama RN is Primary Nurse. jl7 13:36 Inserted saline lock: 20 gauge in left forearm, using aseptic technique. bp 14:03 Urine collected: clean catch specimen, cloudy. mh5 14:04 Urine Dipstick--Ancillary (enter results) Sent. 5 14:04 Urine Culture Sent. 5 15:31 No provider procedures requiring assistance completed. IV discontinued, intact, jl7 bleeding controlled, No redness/swelling at site. Pressure dressing applied. Administered Medications: 13:55 Drug: NS 0.9% 250 ml Route: IV; Rate: bolus; Site: left antecubital; jl7 14:25 Follow up: Response: No adverse reaction; IV Status: Completed infusion [facility] 14:24 Drug: Rocephin 1 grams Route: IV; Rate: bolus; Site: left antecubital; 14:27 Follow up: Response: No adverse reaction; IV Status: Completed infusion 15:29 Drug: LoMOTIL 2 tabs Route: PO; 15:29 Follow up: Response: Medication administered at discharge. jl7 Outcome: 14:10 Discharge ordered by MD. rose 15:30 Discharged to home ambulatory, with family. [facility] 15:30 Condition: stable 15:30 Discharge instructions given to patient, family, Instructed on discharge instructions, follow up and referral plans. medication usage, Demonstrated understanding of instructions, follow-up care, medications, Prescriptions given X 3. 15:31 Patient left the ED. 7 Signatures: Ashwini Mullins, TOI RN aj1 Noa Correa Corey, PA PA cp Martinez, [facility] Ga Valderrama RN RN jl7 Pramod Lee RN RN bp Corrections: (The following items were deleted from the chart) 12:04 12:02 Pulse 63bpm; Resp 18bpm; Pulse Ox 98% RA; Temp 98.0F Oral; 90.72 kg; Height 5 ft. aj1 6 in.; BMI: 32.2; Pain 0/10; aj1
--- NOTE | 2018-04-06 14:11 | EDPHYS ---
Physician Documentation [facility] Name: Bharati Lancaster Age: 78 yrs Sex: Female : 1940 Arrival Date: 04/06/2018 Time: 11:52 Bed 16 Private MD: Casa Morton V ED Physician Uvaldo Branch HPI: 04/06 12:35 This 78 yrs old Female presents to ER via Ambulatory with complaints of cp Diarrhea, Nausea, Dizziness. 12:35 The patient presents to the emergency department with diarrhea, that is continuous. cp 12:35 Onset: The symptoms/episode began/occurred yesterday. cp 12:35 Possible causes: unknown. cp 12:35 Associated signs and symptoms: Pertinent negatives: abdominal pain, anorexia, cp constipation, fever, GI bleeding. Severity of symptoms: in the emergency department the symptoms are unchanged. Historical: - Allergies: 12:01 ACETAMINOPHEN; aj1 12:01 BACLOFEN; aj1 12:01 Codeine; aj1 12:01 Darvocet-N 100; aj 12:01 Hydrocodone-Acetaminophen; aj 12:01 Morphine; aj 12:01 plastic tape; aj1 - Home Meds: 12:01 allopurinol 300 mg Oral tab 1 tab once daily [Active]; amlodipine 5 mg tab once daily aj1 [Active]; Bystolic 20 mg Oral tab once daily [Active]; calcium carbonate 600 mg (1,500 mg) Oral tab daily [Active]; clonidine HCl 0.2 mg oral tab 1 tab 3 times per day [Active]; clonidine HCl 0.2 mg Oral tab 3 times per day [Active]; colchicine 0.6 mg Oral cap every two hours until pain goes away or diarrhea starts [Active]; CURAPHEN daily [Active]; doxepin 25mg QHS miscellaneous [Active]; furosemide 20 mg Oral tab 1 tab Every other day [Active]; hydralazine 100 mg Oral tab 2 times per day [Active]; levothyroxine 50 mcg tab once daily [Active]; MCT Oil 7.7 kcal/mL Oral oil Every other day [Active]; paroxetine HCl 20 mg Oral tab [Active]; Neurontin 300 mg Oral cap 1 cap 3 times per day [Active]; Multiple Vitamins Oral tab daily [Active]; omeprazole 40 mg Oral cpDR 1 cap once daily [Active]; ProAir HFA 90 mcg/actuation inhalation HFAA 2 puffs every 6 hours [Active]; Synthroid 50 mcg Oral tab 1 tab once daily [Active]; torsemide 10 mg Oral tab once daily [Active]; Vitamin D3 800 unit Oral tab daily [Active]; Xarelto 20 mg Oral tab 1 tab once daily [Active]; - PMHx: 12:01 Atrial Fib; Cervical radicular pain; CHF; Degenative join disease; GERD; Gout; aj1 Hyperlipidemia; Hypertension; Hypothyroidism; - PSHx: 12:01 hand, Knee, GB, Shoulder; Appendectomy; Cholecystectomy; aj1 - Immunization history:: Adult Immunizations up to date. - Social history:: Smoking status: Patient/guardian denies using tobacco, Patient/guardian denies using alcohol. - Ebola Screening: : Patient negative for fever greater than or equal to 101.5 degrees Fahrenheit, and additional compatible Ebola Virus Disease symptoms Patient denies exposure to infectious person Patient denies travel to an Ebola-affected area in the 21 days before illness onset. ROS: 12:40 Constitutional: Negative for body aches, chills, fever, poor PO intake. cp 12:40 Eyes: Negative for injury, pain, redness, and discharge. cp Exam: 12:45 Constitutional: The patient appears in no acute distress, alert, awake, cp non-diaphoretic, non-toxic, well developed, well nourished. 12:45 Head/Face: Normocephalic, atraumatic. cp 12:45 Eyes: Periorbital structures: appear normal, Pupils: equal, round, and reactive to light and accomodation, Extraocular movements: intact throughout, Conjunctiva: normal, no exudate, no injection, Sclera: no appreciated abnormality, Lids and lashes: appear normal, bilaterally. 12:45 ENT: External ear(s): are unremarkable, Ear canal(s): are normal, clear, TM's: are normal, no evidence of bulging, no erythema, Nose: is normal, Mouth: Lips: moist, Oral mucosa: pink and intact, moist, Posterior pharynx: is normal, airway is patent, no erythema, no exudate. 12:45 Neck: ROM/movement: is normal, is supple, without pain, no range of motions limitations, no meningismus, no nuchal rigidity. 12:45 Chest/axilla: Inspection: normal, Palpation: is normal, no crepitus, no tenderness. 12:45 Cardiovascular: Rate: normal, Rhythm: regular, Edema: is not appreciated, JVD: is not appreciated. 12:45 Respiratory: the patient does not display signs of respiratory distress, Respirations: normal, no use of accessory muscles, no retractions, no splinting, no tachypnea, labored breathing, is not present, Breath sounds: are clear throughout, no decreased breath sounds, no stridor, no wheezing. 12:45 Abdomen/GI: Inspection: obese Bowel sounds: active, all quadrants, Palpation: abdomen is soft and non-tender, in all quadrants, rebound tenderness, is not appreciated, voluntary guarding, is not appreciated, involuntary guarding, is not appreciated. 12:45 Back: pain, is absent, ROM is normal. 12:45 Skin: cellulitis, is not appreciated, no rash present. 12:45 Neuro: Orientation: to person, place \T\ time. Mentation: is normal, Cerebellar function: is grossly normal, Motor: moves all fours, strength is normal, Sensation: is normal. Vital Signs: 12:02 BP 131 / 84; Pulse 63; Resp 18; Temp 98.0(O); Pulse Ox 98% on R/A; Weight 90.72 kg; aj1 Height 5 ft. 6 in. (167.64 cm); Pain 0/10; 14:24 BP 159 / 71; Pulse 71; Resp 18; Pulse Ox 97% on R/A; mh5 12:02 Body Mass Index 32.28 (90.72 kg, 167.64 cm) aj1 MDM: 12:29 Patient medically screened. cp 13:00 Differential diagnosis: gastritis, diverticulitis, viral gastroenteritis, cp gastroenteritis, dehydration, electrolyte abnormality. 14:10 Data reviewed: vital signs, nurses notes, lab test result(s), radiologic studies, CT cp scan, and as a result, I will discharge patient. 14:10 Counseling: I had a detailed discussion with the patient and/or guardian regarding: the cp historical points, exam findings, and any diagnostic results supporting the discharge/admit diagnosis, lab results, radiology results, to return to the emergency department if symptoms worsen or persist or if there are any questions or concerns that arise at home. 04/06 12:49 Order name: Basic Metabolic Panel; Complete Time: 13:46 04/06 13:47 Interpretation: Normal except: CL 111; GLUC 155; BUN 24; CRE 1.33; GFR 39. 04/06 12:49 Order name: CBC with Diff; Complete Time: 13:45 04/06 13:45 Interpretation: Normal except: MCV 94.6; RDW 15.6; DIETER% 74.6; LYM% 14.8. 04/06 12:49 Order name: Creatinine for Radiology; Complete Time: 13:45 04/06 13:46 Interpretation: CRE 1.46; GFR 35; Reviewed. 04/06 12:49 Order name: Hepatic Function; Complete Time: 13:46 04/06 13:47 Interpretation: Normal except: GLOB 4.7; A/G 0.7. 04/06 12:49 Order name: Lipase; Complete Time: 13:46 04/06 12:49 Order name: Urine Microscopic Only; Complete Time: 13:55 04/06 13:55 Interpretation: Normal except: UWBC 20-50; URBC 5-10; UBACT 20-50. 04/06 12:28 Order name: Orthostatics; Complete Time: 12:42 04/06 12:49 Order name: Magnesium; Complete Time: 13:46 04/06 12:49 Order name: Phosphorus; Complete Time: 13:46 04/06 13:46 Interpretation: Abnormal: PHOS 2.1. 04/06 13:52 Order name: Urine Culture [facility] 04/06 13:53 Order name: Urine Dipstick--Ancillary (enter results) 04/06 12:49 Order name: IV Saline Lock; Complete Time: 13:36 04/06 12:49 Order name: Labs collected and sent; Complete Time: 13:35 04/06 12:49 Order name: Urine Dipstick-Ancillary (obtain specimen); Complete Time: 13:51 04/06 13:59 Order name: PO challenge; Complete Time: 15:25 cp Administered Medications: 13:55 Drug: NS 0.9% 250 ml Route: IV; Rate: bolus; Site: left antecubital; jl7 14:25 Follow up: Response: No adverse reaction; IV Status: Completed infusion jl7 14:24 Drug: Rocephin 1 grams Route: IV; Rate: bolus; Site: left antecubital; [facility] 14:27 Follow up: Response: No adverse reaction; IV Status: Completed infusion [facility] 15:29 Drug: LoMOTIL 2 tabs Route: PO; 15:29 Follow up: Response: Medication administered at discharge. [facility] Disposition: 16:19 Co-signature as Attending Physician, Uvaldo Branch MD I agree with the assessment and [facility] plan of care. Disposition: 04/06/18 14:10 Discharged to Home. Impression: Diarrhea, unspecified, Urinary tract infection, site not specified. - Condition is Stable. - Discharge Instructions: Food Choices to Help Relieve Diarrhea, Adult, Diarrhea, Adult, Urinary Tract Infection, Adult. - Prescriptions for Metronidazole 500 mg Oral Tablet - take 1 tablet by ORAL route every 8 hours for 7 days; 21 tablet. Lomotil 2.5- 0.025 mg Oral Tablet - take 1 tablet by ORAL route every 6 hours As needed; 20 tablet. Bactrim DS 800- 160 mg Oral Tablet - take 1 tablet by ORAL route every 12 hours for 7 days; 14 tablet. - Medication Reconciliation Form, Thank You Letter, Antibiotic Education, Prescription Opioid Use form. - Follow up: Private Physician; When: 2 - 3 days; Reason: Recheck today's complaints. - Problem is new. - Symptoms have improved. Signatures: Dispatcher [employer] EDMS Ashwini Mullins RN RN aj1 Uvaldo Branch MD MD [facility] Matt Reilly PA PA cp Leal, Jahala RN RN jl7 Corrections: (The following items were deleted from the chart) 15:31 14:10 04/06/2018 14:10 Discharged to Home. Impression: Diarrhea, unspecified; Urinary jl7 tract infection, site not specified. Condition is Stable. Forms are Medication Reconciliation Form, Thank You Letter, Antibiotic Education, Prescription Opioid Use. Follow up: Private Physician; When: 2 - 3 days; Reason: Recheck today's complaints. Problem is new. Symptoms have improved. cp
[2018-04-06] MEDS ORDERED: CEFTRIAXONE/SWI 1gm 1 GM/10 ML SYR ONE (14:28)
[2018-04-06] MEDS ORDERED: DIPHENOX/ATROP SULF 1 TAB PO ONE (14:47)
[2018-04-06 14:48] LABS: Urine Blood NEGATIVE (NEG); Urine Glucose NEGATIVE (NEG); Urine Protein 2+ (NEG); Urine pH 5.5 (5.0-7.0)
[2018-04-06 15:37] VITALS: TEMP 98
[2018-04-06 15:38] VITALS: BP 159/71; O2SAT 97
== END 2018-04-06 15:31 | disposition home or self-care (01) ==
LOC: ER 11:49
DX: N39.0 Urinary tract infection, site not specified (principal); R19.7 Diarrhea, unspecified; E78.5 Hyperlipidemia, unspecified; E03.9 Hypothyroidism, unspecified; I48.91 Unspecified atrial fibrillation; I11.0 Hypertensive heart disease with heart failure; I50.9 Heart failure, unspecified; K21.9 Gastro-esophageal reflux disease without esophagitis; Z79.01 Long term (current) use of anticoagulants; Z79.899 Other long term (current) drug therapy
CPT/HCPCS: 36415; 80048; 80076; 83690; 83735; 84100; 85025; 87086; 87088; 96361; 96374; 99284; J0696; 81003; 81015; 96365; 96375

== ENCOUNTER 2018-12-27 20:25 | Emergency (ER) | payer OTHER ==
[2018-12-27] MEDS ORDERED: cloNIDine HCl 0.1 MG TAB ONE (21:12)
[2018-12-27 22:04] LABS: Protime INR 1.96
[2018-12-27 22:15] LABS: Absolute Lymphocytes (CBC) 1.8 K/uL (0.7-4.9); Basophils % 0.9 % (0-1.3); Hematocrit 36.3 % (36.0-45.0); Lymphocytes % 16.4 % (15.3-44.8); MPV 9.6 fL (7.6-11.3); RBC Red Blood Cell Count 4.01 M/uL (3.86-4.86)
[2018-12-27 22:18] LABS: BUN Blood Urea Nitrogen 28 mg/dL (7-18); Bicarbonate 23 mmol/L (21-32); Glucose Level 136 mg/dL (74-106); NT PRO-BNP 1621 pg/mL (<450); Potassium 4.4 mmol/L (3.5-5.1); Sodium Level 143 mmol/L (136-145); Troponin (Emerg Dept Use Only) < 0.02 ng/mL (0.0-0.045)
[2018-12-27] MEDS ORDERED: FUROSEMIDE 40 MG/4 ML VIAL ONE (23:16)
--- NOTE | 2018-12-27 23:16 | RAD REPORT ---
EXAM DESCRIPTION: Giovanny Single View12/27/2018 9:10 pm CLINICAL HISTORY: Shortness of breath COMPARISON: 2018 FINDINGS: Lungs appear grossly clear Heart is mildly to moderately enlarged
--- NOTE | 2018-12-28 00:13 | ER ---
Nurse's Notes [facility] Name: Bharati Lancaster Age: 78 yrs Sex: Female : 1940 Arrival Date: 12/27/2018 Time: 20:29 Bed 7 Private MD: Diagnosis: Essential (primary) hypertension;Heart failure Presentation: 12/27 20:36 Presenting complaint: Patient states: I checked my BP at home and it was 230s for the la1 top number and I was feeling SOB, I took a clonidine 0.1 at about 1900. Transition of care: patient was not received from another setting of care. Onset of symptoms was December 27, 2018. Risk Assessment: Do you want to hurt yourself or someone else? Patient reports no desire to harm self or others. Initial Sepsis Screen: Does the patient meet any 2 criteria? No. Patient's initial sepsis screen is negative. Does the patient have a suspected source of infection? No. Patient's initial sepsis screen is negative. Care prior to arrival: None. 20:36 Method Of Arrival: Wheelchair la1 20:36 Acuity: GONZALEZ 3 la1 Historical: - Allergies: 20:35 ACETAMINOPHEN; la1 20:35 BACLOFEN; la1 20:35 Codeine; la1 20:35 Darvocet-N 100; la1 20:35 Hydrocodone-Acetaminophen; la1 20:35 Morphine; la1 20:35 plastic tape; la1 - Home Meds: 21:00 allopurinol 300 mg Oral tab 1 tab once daily [Active]; amlodipine 5 mg tab once daily lp1 [Active]; Bystolic 20 mg Oral tab once daily [Active]; calcium carbonate 600 mg (1,500 mg) Oral tab daily [Active]; clonidine HCl 0.2 mg Oral tab 3 times per day [Active]; clonidine HCl 0.2 mg Oral tab 1 tab 3 times per day [Active]; colchicine 0.6 mg Oral cap every two hours until pain goes away or diarrhea starts [Active]; CURAPHEN daily [Active]; doxepin 25mg QHS miscellaneous [Active]; furosemide 20 mg Oral tab 1 tab Every other day [Active]; hydralazine 100 mg Oral tab 2 times per day [Active]; levothyroxine 50 mcg tab once daily [Active]; MCT Oil 7.7 kcal/mL Oral oil Every other day [Active]; Multiple Vitamins Oral tab daily [Active]; Neurontin 300 mg Oral cap 1 cap 3 times per day [Active]; omeprazole 40 mg Oral cpDR 1 cap once daily [Active]; paroxetine HCl 20 mg Oral tab [Active]; ProAir HFA 90 mcg/actuation inhalation HFAA 2 puffs every 6 hours [Active]; Synthroid 50 mcg Oral tab 1 tab once daily [Active]; torsemide 10 mg Oral tab once daily [Active]; Vitamin D3 800 unit Oral tab daily [Active]; Xarelto 20 mg Oral tab 1 tab once daily [Active]; - PMHx: 20:35 Atrial Fib; Cervical radicular pain; CHF; Degenative join disease; GERD; Gout; la1 Hyperlipidemia; Hypertension; Hypothyroidism; - Immunization history:: Adult Immunizations up to date. - Social history:: Smoking status: Patient/guardian denies using tobacco. - Ebola Screening: : No symptoms or risks identified at this time. Screenin:56 Abuse screen: Denies threats or abuse. Denies injuries from another. Nutritional lp1 screening: No deficits noted. Tuberculosis screening: No symptoms or risk factors identified. Fall Risk None identified. Assessment: 20:54 General: Appears in no apparent distress. Behavior is appropriate for age. Pain: Denies lp1 pain. Neuro: Level of Consciousness is awake, alert, obeys commands, Oriented to person, place, time, situation. Cardiovascular: Patient's skin is warm and dry. Rhythm is sinus rhythm. Respiratory: Reports shortness of breath Airway is patent Respiratory effort is even, Respiratory pattern is regular, Breath sounds are clear bilaterally. Onset: The symptoms/episode began/occurred gradually, the patient has mild shortness of breath. GI: Abdomen is obese. : No signs and/or symptoms were reported regarding the genitourinary system. EENT: No signs and/or symptoms were reported regarding the EENT system. Derm: Skin is pink, warm \T\ dry. Musculoskeletal: No deficits noted. 22:03 Reassessment: Patient appears in no apparent distress at this time. No changes from lp1 previously documented assessment. Patient is alert, oriented x 3, equal unlabored respirations, skin warm/dry/pink. 23:15 Reassessment: Patient is alert, oriented x 3, equal unlabored respirations, skin lp1 warm/dry/pink. Patient states shortness of breath and headache have improved. Vital Signs: 20:36 BP 184 / 85; Pulse 85; Resp 20; Temp 98.4; Pulse Ox 98.2% on R/A; Weight 90.72 kg; la1 Height 5 ft. 3 in. (160.02 cm); 20:45 BP 232 / 89; Pulse 79; Resp 19; Pulse Ox 95% on R/A; lp1 21:00 BP 194 / 70; Pulse 78; Resp 20; Pulse Ox 95% on R/A; lp1 21:15 BP 204 / 79; Pulse 78; Resp 20; Pulse Ox 95% on R/A; lp1 21:45 BP 195 / 57; Pulse 75; Resp 15; Pulse Ox 97% on R/A; lp1 22:20 BP 175 / 59; Pulse 84; Resp 20; Pulse Ox 97% on R/A; lp1 22:40 BP 182 / 55; Pulse 64; Resp 15; Pulse Ox 95% on R/A; Pain 0/10; lp1 23:00 BP 193 / 54; Pulse 67; Resp 20; Pulse Ox 96% on R/A; lp1 12/28 00:00 BP 205 / 90 LA (man/); lp1 00:00 BP 201 / 73 LA (auto/); Pulse 71; Resp 19; Pulse Ox 97% on R/A; lp1 12/27 20:36 Body Mass Index 35.43 (90.72 kg, 160.02 cm) la1 ED Course: 12/27 20:29 Patient arrived in ED. cf2 20:36 Arm band placed on right wrist. la1 20:37 Triage completed. la1 20:43 Andrew Pascual MD is Attending Physician. gs 20:54 Marilyn Medina, TOI is Primary Nurse. lp1 20:55 EKG done, by ED staff, reviewed by Andrew Pascual MD. lp1 20:56 Patient has correct armband on for positive identification. Bed in low position. Call lp1 light in reach. glass maker on. Pulse ox on. NIBP on. 21:08 XRAY Chest (1 view) In Process Unspecified. EDMS 21:29 Missed attempt(s): 20 gauge in left antecubital area. 22 gauge in right antecubital ds4 area. Bleeding controlled, band aid applied, catheter tip intact. 21:45 Accessed peripheral vein via ultrasound, utilizing dynamic ultrasound technique using lp1 ,sterile technique, per hospital protocol. Good blood return. Flushes easily. 22g to R AC. 21:45 Initial lab(s) drawn, by me, sent to lab. lp1 23:38 No provider procedures requiring assistance completed. lp1 12/28 00:15 IV discontinued, No redness/swelling at site. Pressure dressing applied. lp1 Administered Medications: 12/27 21:12 Drug: cloNIDine 0.1 mg Route: PO; lp1 23:00 Follow up: Response: Blood pressure is lowered lp1 23:25 Drug: Lasix 40 mg Route: IVP; Site: right antecubital; lp1 12/28 00:32 Follow up: Response: No adverse reaction lp1 Outcome: 00:10 Discharge ordered by . 00:20 Discharged to home via wheelchair, with family. lp1 00:20 Condition: good 00:20 Discharge instructions given to patient, family, Instructed on discharge instructions, follow up and referral plans. Demonstrated understanding of instructions, follow-up care. 00:32 Patient left the ED. lp1 Signatures: Dispatcher [employer] EDMS Marilyn Medina RN RN lp1 Eusebio Taveras ds4 Frandy Vizcarra RN RN la1 Andrew Pascual MD MD gs Frazier, [place] cf2 Corrections: (The following items were deleted from the chart) 12/27 20:56 20:54 Respiratory: Reports shortness of breath Airway is patent Respiratory effort is lp1 even, Respiratory pattern is regular, Breath sounds are clear bilaterally. lp1 20:56 20:54 Respiratory: Reports shortness of breath Airway is patent Respiratory effort is lp1 even, Respiratory pattern is regular, Breath sounds are clear bilaterally. the patient has mild shortness of breath lp1
--- NOTE | 2018-12-28 00:14 | EDPHYS ---
Physician Documentation [facility] Name: Bharati Lancaster Age: 78 yrs Sex: Female : 1940 Arrival Date: 12/27/2018 Time: 20:29 Bed 7 Private MD: ED Physician Andrew Pascual HPI: 12/28 01:05 This 78 yrs old Female presents to ER via Wheelchair with complaints of High gs Blood Pressure, Shortness Of Breath. 01:05 The patient has elevated blood pressure and discovered this at home. Onset: The gs symptoms/episode began/occurred yesterday, last night. Modifying factors:. Associated signs and symptoms: Pertinent positives: dyspnea. Severity of symptoms: At its worst the blood pressure was severe, in the emergency department the blood pressure is unchanged. The patient has experienced similar episodes in the past, multiple times. The patient has not recently seen a physician. Historical: - Allergies: 12/27 20:35 ACETAMINOPHEN; la1 20:35 BACLOFEN; la1 20:35 Codeine; la1 20:35 Darvocet-N 100; la1 20:35 Hydrocodone-Acetaminophen; la1 20:35 Morphine; la1 20:35 plastic tape; la1 - Home Meds: 21:00 allopurinol 300 mg Oral tab 1 tab once daily [Active]; amlodipine 5 mg tab once daily lp1 [Active]; Bystolic 20 mg Oral tab once daily [Active]; calcium carbonate 600 mg (1,500 mg) Oral tab daily [Active]; clonidine HCl 0.2 mg Oral tab 3 times per day [Active]; clonidine HCl 0.2 mg Oral tab 1 tab 3 times per day [Active]; colchicine 0.6 mg Oral cap every two hours until pain goes away or diarrhea starts [Active]; CURAPHEN daily [Active]; doxepin 25mg QHS miscellaneous [Active]; furosemide 20 mg Oral tab 1 tab Every other day [Active]; hydralazine 100 mg Oral tab 2 times per day [Active]; levothyroxine 50 mcg tab once daily [Active]; MCT Oil 7.7 kcal/mL Oral oil Every other day [Active]; Multiple Vitamins Oral tab daily [Active]; Neurontin 300 mg Oral cap 1 cap 3 times per day [Active]; omeprazole 40 mg Oral cpDR 1 cap once daily [Active]; paroxetine HCl 20 mg Oral tab [Active]; ProAir HFA 90 mcg/actuation inhalation HFAA 2 puffs every 6 hours [Active]; Synthroid 50 mcg Oral tab 1 tab once daily [Active]; torsemide 10 mg Oral tab once daily [Active]; Vitamin D3 800 unit Oral tab daily [Active]; Xarelto 20 mg Oral tab 1 tab once daily [Active]; - PMHx: 20:35 Atrial Fib; Cervical radicular pain; CHF; Degenative join disease; GERD; Gout; la1 Hyperlipidemia; Hypertension; Hypothyroidism; - Immunization history:: Adult Immunizations up to date. - Social history:: Smoking status: Patient/guardian denies using tobacco. - Ebola Screening: : No symptoms or risks identified at this time. ROS: 12/28 01:05 All other systems are negative. gs Exam: 01:05 Head/Face: Normocephalic, atraumatic. Eyes: Pupils equal round and reactive to light, gs extra-ocular motions intact. Lids and lashes normal. Conjunctiva and sclera are non-icteric and not injected. Cornea within normal limits. Periorbital areas with no swelling, redness, or edema. ENT: Nares patent. No nasal discharge, no septal abnormalities noted. Tympanic membranes are normal and external auditory canals are clear. Oropharynx with no redness, swelling, or masses, exudates, or evidence of obstruction, uvula midline. Mucous membranes moist. Neck: Trachea midline, no thyromegaly or masses palpated, and no cervical lymphadenopathy. Supple, full range of motion without nuchal rigidity, or vertebral point tenderness. No Meningismus. Chest/axilla: Normal chest wall appearance and motion. Nontender with no deformity. No lesions are appreciated. Cardiovascular: Regular rate and rhythm with a normal S1 and S2. No gallops, murmurs, or rubs. Normal PMI, no JVD. No pulse deficits. Respiratory: Lungs have equal breath sounds bilaterally, clear to auscultation and percussion. No rales, rhonchi or wheezes noted. No increased work of breathing, no retractions or nasal flaring. Abdomen/GI: Soft, non-tender, with normal bowel sounds. No distension or tympany. No guarding or rebound. No evidence of tenderness throughout. Back: No spinal tenderness. No costovertebral tenderness. Full range of motion. Skin: Warm, dry with normal turgor. Normal color with no rashes, no lesions, and no evidence of cellulitis. MS/ Extremity: Pulses equal, no cyanosis. Neurovascular intact. Full, normal range of motion. Neuro: Awake and alert, GCS 15, oriented to person, place, time, and situation. Cranial nerves II-XII grossly intact. Motor strength 5/5 in all extremities. Sensory grossly intact. Cerebellar exam normal. Normal gait. 01:05 Constitutional: The patient appears alert, awake. 01:05 ECG was reviewed by the Attending Physician. Vital Signs: 12/27 20:36 BP 184 / 85; Pulse 85; Resp 20; Temp 98.4; Pulse Ox 98.2% on R/A; Weight 90.72 kg; la1 Height 5 ft. 3 in. (160.02 cm); 20:45 BP 232 / 89; Pulse 79; Resp 19; Pulse Ox 95% on R/A; lp1 21:00 BP 194 / 70; Pulse 78; Resp 20; Pulse Ox 95% on R/A; lp1 21:15 BP 204 / 79; Pulse 78; Resp 20; Pulse Ox 95% on R/A; lp1 21:45 BP 195 / 57; Pulse 75; Resp 15; Pulse Ox 97% on R/A; lp1 22:20 BP 175 / 59; Pulse 84; Resp 20; Pulse Ox 97% on R/A; lp1 22:40 BP 182 / 55; Pulse 64; Resp 15; Pulse Ox 95% on R/A; Pain 0/10; lp1 23:00 BP 193 / 54; Pulse 67; Resp 20; Pulse Ox 96% on R/A; lp1 12/28 00:00 BP 205 / 90 LA (man/); lp1 00:00 BP 201 / 73 LA (auto/); Pulse 71; Resp 19; Pulse Ox 97% on R/A; lp1 12/27 20:36 Body Mass Index 35.43 (90.72 kg, 160.02 cm) la1 MDM: 12/27 20:56 Patient medically screened. 12/28 01:05 Differential diagnosis: chf,malignant htn, mi. Data reviewed: vital signs, nurses gs notes. Counseling: I had a detailed discussion with the patient and/or guardian regarding: the historical points, exam findings, and any diagnostic results supporting the discharge/admit diagnosis, lab results, radiology results, the need for outpatient follow up. Response to treatment: the patient's symptoms have markedly improved after treatment, the patient's symptoms have resolved after treatment, no sob or pain, feel cxr tool more wet than previous offered admit for chf treatment refused and will see pcp later today. 12/27 20:57 Order name: Basic Metabolic Panel; Complete Time: 22:33 12/27 20:57 Order name: CBC with Diff; Complete Time: 22:33 12/27 20:57 Order name: NT PRO-BNP; Complete Time: :33 12/27 20:57 Order name: PT-INR; Complete Time: :33 12/27 20:57 Order name: Troponin (emerg Dept Use Only); Complete Time: 22:33 12/27 23:12 Order name: Troponin (emerg Dept Use Only); Complete Time: 00:07 12/27 20:57 Order name: XRAY Chest (1 view); Complete Time: 23:26 12/27 20:57 Order name: EKG; Complete Time: 20:58 12/27 20:57 Order name: Cardiac monitoring; Complete Time: 21:07 12/27 20:57 Order name: EKG - Nurse/Tech; Complete Time: 21: 12/27 20:57 Order name: IV Saline Lock; Complete Time: 21:49 12/27 20:57 Order name: Labs collected and sent; Complete Time: 21:49 12/27 20:57 Order name: O2 Per Protocol; Complete Time: 21: 12/27 20:57 Order name: O2 Sat Monitoring; Complete Time: 21:07 EC:05 Rate is 77 beats/min. Rhythm is regular. MA interval is normal. QRS interval is gs prolonged. QT interval is prolonged. No ST changes noted. Clinical impression: Abnormal EKG without significant change. Interpreted by me. Administered Medications: 12/27 21:12 Drug: cloNIDine 0.1 mg Route: PO; lp1 23:00 Follow up: Response: Blood pressure is lowered lp1 23:25 Drug: Lasix 40 mg Route: IVP; Site: right antecubital; lp1 12/28 00:32 Follow up: Response: No adverse reaction lp1 Disposition: 12/28/18 00:10 Discharged to Home. Impression: Essential (primary) hypertension, Heart failure. - Condition is Stable. - Discharge Instructions: Hypertension, Heart Failure, [id number]. - Medication Reconciliation Form, Thank You Letter, Antibiotic Education, Prescription Opioid Use form. - Follow up: Private Physician; When: Today; Reason: Re-evaluation by your physician. Signatures: Dispatcher [employer] EDMarilyn Ceballos RN RN lp1 Frandy Vizcarra RN RN la1 Andrew Pascual MD MD gs Corrections: (The following items were deleted from the chart) 00:32 00:10 12/28/2018 00:10 Discharged to Home. Impression: Essential (primary) lp1 hypertension; Heart failure. Condition is Stable. Forms are Medication Reconciliation Form, Thank You Letter, Antibiotic Education, Prescription Opioid Use. Follow up: Private Physician; When: Today; Reason: Re-evaluation by your physician. gs
[2018-12-28 01:17] VITALS: TEMP 98.4
[2018-12-28 01:22] VITALS: BP 205/90; O2SAT 97
--- NOTE | 2018-12-28 07:26 | EKG ---
Test Date: 2018-12-27 Test Time: 20:51:03 Boat Tester: [place] MEASUREMENT RESULTS: Intervals: Rate: 77 MO: 142 QRSD: 120 QT: 418 QTc: 473 [place]: P: 73 MO: 142 QRS: -44 T: 16 INTERPRETIVE STATEMENTS: Normal sinus rhythm Left axis deviation RSR' or QR pattern in V1 suggests right ventricular conduction delay Left ventricular hypertrophy with QRS widening Abnormal ECG Compared to ECG 01/07/2018 17:46:09 RSR' in V1 or V2 now present Sinus bradycardia no longer present Sinus arrhythmia no longer present Right bundle-branch block no longer present Electronically Signed On 12-28-18 07:25:11 CDT by Renaldo Mcleod
== END 2018-12-28 00:32 | disposition home or self-care (01) ==
LOC: ER 20:25
DX: I10 Essential (primary) hypertension (principal); I50.9 Heart failure, unspecified; I48.91 Unspecified atrial fibrillation; E03.9 Hypothyroidism, unspecified; Z79.01 Long term (current) use of anticoagulants; Z88.1 Allergy status to other antibiotic agents; Z88.5 Allergy status to narcotic agent; Z88.6 Allergy status to analgesic agent; Z88.8 Allergy status to other drugs, medicaments and biological substances
CPT/HCPCS: 93005; 85025; 80048; 36415; 85610; 84484 ×2; 83880; 71045; 96374; 99285; J1940

== ENCOUNTER 2019-03-21 18:38 | Inpatient (IN) | payer OTHER ==
--- NOTE | 2019-03-21 19:50 | RAD REPORT ---
EXAM DESCRIPTION: CT - Head Brain Wo Cont - 03/21/2019 7:39 pm CLINICAL HISTORY: Dizziness COMPARISON: 2018 TECHNIQUE: Computed axial tomography of the head was obtained. IV contrast was not requested. All CT scans are performed using dose optimization technique as appropriate and may include automated exposure control or mA/KV adjustment according to patient size. FINDINGS: An intracranial bleed is not seen . The ventricles are normal in caliber. No extra-axial fluid collection is noted. Mild low-density areas within periventricular, deep and subcortical white matter likely represent isc hemic changes secondary to small vessel disease. Fluid within the sinuses/ mastoids is not seen. IMPRESSION: No acute intracranial abnormality is seen. If patient's symptoms persist MRI of the bra in would be recommended.
[2019-03-21 20:20] LABS: Urine Blood NEGATIVE (NEG); Urine Glucose NEGATIVE (NEG); Urine Protein 2+ (NEG); Urine Specific Gravity 1.015 (1.005-1.030); Urine pH 5.5 (5.0-7.0)
[2019-03-21 20:32] LABS: Absolute Lymphocytes (CBC) 1.4 K/uL (0.7-4.9); Basophils % 0.7 % (0-1.3); Hematocrit 33.1 % (36.0-45.0); Lymphocytes % 11.9 % (15.3-44.8); MPV 9.6 fL (7.6-11.3); RBC Red Blood Cell Count 3.68 M/uL (3.86-4.86)
[2019-03-21 20:38] LABS: Protime INR 1.11
[2019-03-21 20:51] LABS: ALT/SGPT 27 U/L (12-78); AST/SGOT 19 U/L (15-37); Albumin 3.3 g/dL (3.4-5.0); Alkaline Phosphatase 98 U/L (45-117); BUN Blood Urea Nitrogen 43 mg/dL (7-18); Bicarbonate 27 mmol/L (21-32); Bilirubin Direct 0.1 mg/dL (0-0.2); Bilirubin Total 0.2 mg/dL (0.2-1.0); Glucose Level 144 mg/dL (74-106); Magnesium 2.2 mg/dL (1.8-2.4); Potassium 4.1 mmol/L (3.5-5.1); Protein, Total 7.6 g/dL (6.4-8.2); Sodium Level 139 mmol/L (136-145); Troponin (Emerg Dept Use Only) < 0.02 ng/mL (0.0-0.045)
[2019-03-21 20:57] LABS: Urine Bacteria <20 /HPF (<20); Urine Culture Reflex Order REFLEXED; Urine RBC <5 /HPF (NONE SEEN)
--- NOTE | 2019-03-21 21:19 | ER ---
Nurse's Notes [facility] Name: Bharati Lancaster Age: 79 yrs Sex: Female : 1940 Arrival Date: 03/21/2019 Time: 18:45 Bed 5 Private MD: Diagnosis: Acute dizziness;UTI Presentation: 03/21 18:45 Presenting complaint: Patient states: Dizziness and nausea that started one hour ago, aj1 patient states that she stood up to go to the bathroom and she was so dizzy that she couldn't make it. Patient received Zofran 4mg IV en route. States she is feeling a little better now, but her symptoms have not resolved completely. Transition of care: patient was not received from another setting of care. Onset of symptoms was March 21, 2019. Risk Assessment: Do you want to hurt yourself or someone else? Patient reports no desire to harm self or others. Initial Sepsis Screen: Does the patient meet any 2 criteria? No. Patient's initial sepsis screen is negative. Does the patient have a suspected source of infection? No. Patient's initial sepsis screen is negative. Care prior to arrival: None. 18:45 Method Of Arrival: EMS: [facility] aj1 18:45 Acuity: GONZALEZ 3 aj1 Triage Assessment: 18:50 General: Appears in no apparent distress. uncomfortable, Behavior is calm, cooperative, aj1 appropriate for age. Pain: Denies pain. Historical: - Allergies: 18:50 ACETAMINOPHEN; aj1 18:50 BACLOFEN; aj1 18:50 Codeine; aj1 18:50 Darvocet-N 100; aj1 18:50 Hydrocodone-Acetaminophen; aj1 18:50 Morphine; aj1 18:50 plastic tape; aj1 18:50 Demerol; aj1 - Home Meds: 18:50 allopurinol 100 mg oral tab 1 tab once daily [Active]; amlodipine 5 mg tab once daily aj1 [Active]; Bystolic 20 mg Oral tab once daily [Active]; clonidine HCl 0.2 mg Oral tab 3 times per day [Active]; colchicine 0.6 mg Oral cap every two hours until pain goes away or diarrhea starts [Active]; doxepin 25mg QHS miscellaneous at bedtime [Active]; Edarbi 80 mg oral tab 1 tab once daily [Active]; Neurontin 300 mg Oral cap 1 cap 3 times per day [Active]; hydralazine 100 mg Oral tab 2 times per day [Active]; metformin 500 mg Oral Tb24 1 tab once daily [Active]; ProAir HFA 90 mcg/actuation inhalation HFAA 2 puffs every 6 hours [Active]; ranitidine HCl 150 mg Oral cap 1 cap before meals [Active]; Xarelto 20 mg Oral tab 1 tab once daily [Active]; - PMHx: 18:50 Atrial Fib; Cervical radicular pain; CHF; Degenative join disease; GERD; Gout; aj1 Hyperlipidemia; Hypertension; Hypothyroidism; - PSHx: 18:50 Knee surgery; hand surgery; Cholecystectomy; Appendectomy; aj1 - Immunization history:: Flu vaccine is not up to date. - Social history:: Smoking status: Patient/guardian denies using tobacco. - Ebola Screening: : Patient denies travel to an Ebola-affected area in the 21 days before illness onset. - Family history:: not pertinent. - Hospitalizations: : No recent hospitalization is reported. Screenin:51 Abuse screen: Denies threats or abuse. Denies injuries from another. Nutritional aj1 screening: No deficits noted. Tuberculosis screening: No symptoms or risk factors identified. 19:14 Fall Risk No fall in past 12 months (0 pts). IV access (20 points). Gait- Weak (10 ak1 pts.). Assessment: 18:51 General: Appears in no apparent distress. uncomfortable, Behavior is calm, cooperative, aj1 appropriate for age. Pain: Denies pain. Neuro: Level of Consciousness is awake, alert, obeys commands, Oriented to person, place, time, situation, Patent Law Specialist are equal bilaterally Moves all extremities. Gait is not observed. Speech is normal, Facial symmetry appears normal, Reports dizziness, Denies paresthesias numbness headache. Cardiovascular: Denies chest pain, palpitations, shortness of breath, Heart tones S1 S2 present Patient's skin is warm and dry. Rhythm is sinus rhythm. Respiratory: Reports shortness of breath Airway is patent Respiratory effort is even, unlabored, Respiratory pattern is regular, symmetrical. GI: No signs and/or symptoms were reported involving the gastrointestinal system. : No signs and/or symptoms were reported regarding the genitourinary system. EENT: No signs and/or symptoms were reported regarding the EENT system. Derm: No signs and/or symptoms reported regarding the dermatologic system. Skin is pink, warm \T\ dry. normal. Musculoskeletal: No signs and/or symptoms reported regarding the musculoskeletal system. Circulation, motion, and sensation intact. 19:20 Reassessment: Patient appears in no apparent distress at this time. Patient and/or cc3 family updated on plan of care and expected duration. Pain level reassessed. Patient is alert, oriented x 3, equal unlabored respirations, skin warm/dry/pink. Received this female patient from morning shift RN Ashwini as a case of dizziness with IV cannula from EMS gauge 20 saline locked. General: Appears in no apparent distress. uncomfortable, Behavior is calm, cooperative, appropriate for age. Pain: Denies pain. Neuro: Level of Consciousness is awake, alert, obeys commands, Oriented to person, place, time, situation. Cardiovascular: Reports lightheadedness, Denies chest pain, palpitations, shortness of breath, Heart tones S1 S2 present Capillary refill < 3 seconds in bilateral fingers Patient's skin is warm and dry. Rhythm is regular. Respiratory: Airway is patent Respiratory effort is even, unlabored, Respiratory pattern is regular, symmetrical, Breath sounds are clear bilaterally. GI: Abdomen is round obese, Bowel sounds present X 4 quads. Abd is soft and non tender X 4 quads. : No signs and/or symptoms were reported regarding the genitourinary system. EENT: No signs and/or symptoms were reported regarding the EENT system. Derm: Skin is fragile, is thin, Skin is pink, warm \T\ dry. normal. Musculoskeletal: Circulation, motion, and sensation intact. Range of motion: intact in all extremities. 20:12 Reassessment: Patient appears in no apparent distress at this time. Patient and/or cc3 family updated on plan of care and expected duration. Pain level reassessed. Patient is alert, oriented x 3, equal unlabored respirations, skin warm/dry/pink. 21:20 Reassessment: Patient appears in no apparent distress at this time. Patient and/or cc3 family updated on plan of care and expected duration. Pain level reassessed. Patient is alert, oriented x 3, equal unlabored respirations, skin warm/dry/pink. 22:00 Reassessment: Patient appears in no apparent distress at this time. Patient and/or cc3 family updated on plan of care and expected duration. Pain level reassessed. Patient is alert, oriented x 3, equal unlabored respirations, skin warm/dry/pink. 23:05 Reassessment: Patient appears in no apparent distress at this time. Patient and/or cc3 family updated on plan of care and expected duration. Pain level reassessed. Patient is alert, oriented x 3, equal unlabored respirations, skin warm/dry/pink. Patient for admission, room available in 220, report called and handed over to [address] for continuity of care and management. Patient states feeling better. Patient states symptoms have improved. 23:40 Reassessment: Patient appears in no apparent distress at this time. Patient and/or cc3 family updated on plan of care and expected duration. Pain level reassessed. Patient is alert, oriented x 3, equal unlabored respirations, skin warm/dry/pink. Patient left ER for admission vitally stable by stretcher escorted by information technology consultant Eusebio and the patient's granddaughter. No valuables left in the patient's room. Patient denies pain at this time. Patient states feeling better. Patient states symptoms have improved. Vital Signs: 18:50 BP 194 / 70; Pulse 77; Resp 17; Temp 98.1; Pulse Ox 99% on R/A; Weight 90.72 kg (R); aj1 19:13 BP 168 / 63; Pulse 79; Resp 21; Pulse Ox 97% on R/A; ak1 20:30 BP 186 / 77; Pulse 75; Resp 18 S; Pulse Ox 98% on R/A; cc3 21:41 BP 201 / 77; Pulse 74; Resp 18 S; Pulse Ox 97% on R/A; cc3 22:00 BP 206 / 64; Pulse 73; Resp 16 S; Pulse Ox 97% on R/A; cc3 22:55 BP 189 / 78; Pulse 71; Resp 19 S; Pulse Ox 98% on R/A; cc3 23:06 BP 171 / 72; Pulse 66; Resp 15 S; Pulse Ox 97% on R/A; cc3 23:35 BP 167 / 77; Pulse 68; Resp 17 S; Pulse Ox 98% on R/A; Pain 0/10; cc3 ED Course: 18:45 Patient arrived in ED. aj1 18:46 Triage completed. aj1 18:50 Arm band placed on. aj1 18:51 Patient has correct armband on for positive identification. Bed in low position. Call aj1 light in reach. 18:51 No provider procedures requiring assistance completed. aj1 19:09 Guillaume Lancaster MD is Attending Physician. wa 19:13 Sarai Paredes, RN is Primary Nurse. ak1 19:41 CT Head Brain wo Cont In Process Unspecified. EDMS 20:45 EKG done, by ED staff, reviewed by Guillaume Lancaster MD. ds4 21:05 Chest Single View XRAY In Process Unspecified. EDMS 21:18 Casa Morton MD is Hospitalizing Provider. wa 23:05 Patient admitted, IV remains in place. cc3 Administered Medications: 22:20 Drug: cloNIDine 0.1 mg Route: PO; cc3 23:00 Follow up: Response: No adverse reaction; Blood pressure is lowered cc3 22:20 Drug: amLODIPine 5 mg Route: PO; cc3 23:00 Follow up: Response: No adverse reaction; Blood pressure is lowered cc3 22:30 Drug: fentaNYL (PF) 25 mcg {Note: RASS 0.} Route: IVP; Site: right hand; cc3 23:14 Follow up: Response: No adverse reaction; Pain is decreased; RASS: Alert and Calm (0) cc3 22:35 Drug: Zofran 4 mg Route: IVP; Site: right hand; cc3 23:14 Follow up: Response: No adverse reaction; Nausea is decreased cc3 22:40 Drug: Rocephin - (cefTRIAXone) 2 grams Route: IVPB; Infused Over: 30 mins; Site: right cc3 hand; 23:14 Follow up: Response: No adverse reaction; IV Status: Completed infusion; IV Intake: [id number] 22:48 Not Given (Patient Refused; Patient said she cannot take Aspirin because she's on cc3 Xarelto): Aspirin Chewable Tablet 324 mg PO once; 81 mg tablets x 4 Intake: 23:14 IV: 20ml; Total: 20ml. cc3 Outcome: 21:18 Decision to Hospitalize by Provider. wa 23:05 Admitted to Med/surg accompanied by tech, family with patient, via stretcher, room 220, cc3 with chart, Report called to [facility] [address] 23:05 Condition: stable 23:05 Instructed on the need for admit, Demonstrated understanding of instructions. 23:49 Patient left the ED. cc3 Signatures: Dispatcher [employer] Ashwini Sprague RN RN [email or web address] Eusebio Taveras ds4 Sarai Paredes RN RN ak1 Guillaume Lancaster MD MD wa Cordel, Charlene cc3
--- NOTE | 2019-03-21 21:19 | EDPHYS ---
Physician Documentation [facility] Name: Bharati Lancaster Age: 79 yrs Sex: Female : 1940 Arrival Date: 03/21/2019 Time: 18:45 Bed 5 Private MD: ED Physician Guillaume Lancaster HPI: 03/21 19:32 This 79 yrs old Female presents to ER via EMS with complaints of Dizziness. wa 19:32 The patient presents with feeling faint, generalized weakness, lightheadedness. Onset: wa The symptoms/episode began/occurred 1 hour(s) ago. Context: occurred at home, occurred while the patient was sitting, just prior to the episode the patient experienced no apparent symptoms. Modifying factors: The symptoms are alleviated by nothing, the symptoms are aggravated by nothing. Associated signs and symptoms: Pertinent positives: nausea, shortness of breath, Pertinent negatives: abdominal pain, blurred vision, confusion, focal weakness, headache, numbness, palpitations, tingling, vomiting. Severity of symptoms: At their worst the symptoms were moderate just prior to arrival, in the emergency department the symptoms mild improvement, Pain is currently a 0 / 10. Patient's baseline: Neuro: alert and fully oriented, Motor: no deficits, Ambulation: walks without assistance, Speech: normal, The patient has a previous history of HTN. The patient has not experienced similar symptoms in the past. The patient has not recently seen a physician, the patient's primary care provider is Dr. Dr. Morton. 79 yo F. sudden onset dizziness, described as lightheartedness and feeling faint. Began while sitting in a chair watching TV. states experienced extreme nausea with it. denies ALLEN, blurry vision, chest pain or palpitations. Given Zofran by EMS but nausea and dizziness still present although improved some. denies h/o same in the past. Historical: - Allergies: 18:50 ACETAMINOPHEN; aj1 18:50 BACLOFEN; aj1 18:50 Codeine; aj1 18:50 Darvocet-N 100; aj1 18:50 Hydrocodone-Acetaminophen; aj1 18:50 Morphine; aj1 18:50 plastic tape; aj1 18:50 Demerol; aj1 - Home Meds: 18:50 allopurinol 100 mg oral tab 1 tab once daily [Active]; amlodipine 5 mg tab once daily aj1 [Active]; Bystolic 20 mg Oral tab once daily [Active]; clonidine HCl 0.2 mg Oral tab 3 times per day [Active]; colchicine 0.6 mg Oral cap every two hours until pain goes away or diarrhea starts [Active]; doxepin 25mg QHS miscellaneous at bedtime [Active]; Edarbi 80 mg oral tab 1 tab once daily [Active]; Neurontin 300 mg Oral cap 1 cap 3 times per day [Active]; hydralazine 100 mg Oral tab 2 times per day [Active]; metformin 500 mg Oral Tb24 1 tab once daily [Active]; ProAir HFA 90 mcg/actuation inhalation HFAA 2 puffs every 6 hours [Active]; ranitidine HCl 150 mg Oral cap 1 cap before meals [Active]; Xarelto 20 mg Oral tab 1 tab once daily [Active]; - PMHx: 18:50 Atrial Fib; Cervical radicular pain; CHF; Degenative join disease; GERD; Gout; aj1 Hyperlipidemia; Hypertension; Hypothyroidism; - PSHx: 18:50 Knee surgery; hand surgery; Cholecystectomy; Appendectomy; aj1 - Immunization history:: Flu vaccine is not up to date. - Social history:: Smoking status: Patient/guardian denies using tobacco. - Ebola Screening: : Patient denies travel to an Ebola-affected area in the 21 days before illness onset. - Family history:: not pertinent. - Hospitalizations: : No recent hospitalization is reported. ROS: 19:39 Constitutional: Negative for fever, chills, and weight loss, Eyes: Negative for injury, wa pain, redness, and discharge, ENT: Negative for injury, pain, and discharge, Neck: Negative for injury, pain, and swelling, Abdomen/GI: Negative for abdominal pain, nausea, vomiting, diarrhea, and constipation, Back: Negative for injury and pain, : Negative for injury, bleeding, discharge, and swelling, MS/Extremity: Negative for injury and deformity, Skin: Negative for injury, rash, and discoloration. 19:39 Constitutional: 19:39 Cardiovascular: Negative for chest pain, edema, orthopnea, palpitations, paroxysmal nocturnal dyspnea. 19:39 Respiratory: Positive for shortness of breath, at rest. Negative for cough, hemoptysis, orthopnea, pleurisy, sputum production, wheezing. 19:39 Neuro: Positive for dizziness, weakness, Negative for altered mental status, headache, loss of consciousness, seizure activity, tingling, tremor. 19:39 All other systems are negative. Exam: 19:40 Head/Face: Normocephalic, atraumatic. Eyes: Pupils equal round and reactive to light, wa extra-ocular motions intact. Lids and lashes normal. Conjunctiva and sclera are non-icteric and not injected. Cornea within normal limits. Periorbital areas with no swelling, redness, or edema. ENT: Nares patent. No nasal discharge, no septal abnormalities noted. Tympanic membranes are normal and external auditory canals are clear. Oropharynx with no redness, swelling, or masses, exudates, or evidence of obstruction, uvula midline. Mucous membranes moist. Neck: Trachea midline, no thyromegaly or masses palpated, and no cervical lymphadenopathy. Supple, full range of motion without nuchal rigidity, or vertebral point tenderness. No Meningismus. Chest/axilla: Normal chest wall appearance and motion. Nontender with no deformity. No lesions are appreciated. Abdomen/GI: Soft, non-tender, with normal bowel sounds. No distension or tympany. No guarding or rebound. No evidence of tenderness throughout. Back: No spinal tenderness. No costovertebral tenderness. Full range of motion. Skin: Warm, dry with normal turgor. Normal color with no rashes, no lesions, and no evidence of cellulitis. MS/ Extremity: Pulses equal, no cyanosis. Neurovascular intact. Full, normal range of motion. Psych: Awake, alert, with orientation to person, place and time. Behavior, mood, and affect are within normal limits. 19:40 Constitutional: The patient appears NAD. appears generally weak 19:40 Cardiovascular: Rate: normal, Rhythm: irregularly irregular, Pulses: no pulse deficits are appreciated, Heart sounds: normal, Edema: 1+ edema to level of left ankle and right ankle, JVD: is not appreciated. 19:40 Respiratory: the patient does not display signs of respiratory distress, Respirations: normal, Breath sounds: are clear throughout, Respiratory rate: nml 19:40 Neuro: Orientation: is normal, Mentation: is normal, Cranial nerves: grossly normal, CN II- XII are normal as tested, Cerebellar function: normal finger to nose testing, heel to larsen testing is normal, able to perform alternating rapid hand movements, no facial asymmetry. neuro exam essentially within nml limits, Motor: moves all extremities symmetrically. Vital Signs: 18:50 BP 194 / 70; Pulse 77; Resp 17; Temp 98.1; Pulse Ox 99% on R/A; Weight 90.72 kg (R); aj1 19:13 BP 168 / 63; Pulse 79; Resp 21; Pulse Ox 97% on R/A; ak1 20:30 BP 186 / 77; Pulse 75; Resp 18 S; Pulse Ox 98% on R/A; cc3 21:41 BP 201 / 77; Pulse 74; Resp 18 S; Pulse Ox 97% on R/A; cc3 22:00 BP 206 / 64; Pulse 73; Resp 16 S; Pulse Ox 97% on R/A; cc3 22:55 BP 189 / 78; Pulse 71; Resp 19 S; Pulse Ox 98% on R/A; cc3 23:06 BP 171 / 72; Pulse 66; Resp 15 S; Pulse Ox 97% on R/A; cc3 23:35 BP 167 / 77; Pulse 68; Resp 17 S; Pulse Ox 98% on R/A; Pain 0/10; cc3 MDM: 19:09 Patient medically screened. wa 19:45 Differential diagnosis: cardiac arrhythmia, CVA, generalized weakness, idiopathic wa dizziness, TIA, vertigo, h/o afib. consider dysrhythmia. r/o CVA. Thus far, neuro intact. will eval and obs. 21:04 Data reviewed: vital signs, nurses notes. Test interpretation: by ED physician or ma midlevel provider:. Response to treatment: the patient's symptoms have markedly improved after treatment, states nausea has stopped. . 21:12 Test interpretation: by ED physician or midlevel provider: labs noted for 2+ protein, wa 1+ LE, 20-50 WBC in UA. CXR: no acute process. EKG: Interp by me: HR 72. sinus. LAD. RBBB. diffuse ST-T changes. EKG unchanged from 12/27/2018. . Physician consultation: Casa Morton MD. Admission orders: after a detailed discussion of the patient's condition and case, the admit orders are written by me. Other consultation: Dr. Morillo, neurology. advised will consult on this pt in AM. admit, obs, MRI r/o posterior circulation stroke. of note, pt with completely normal neuro exam, including cerebellar exam and dizziness and nausea has significantly improved. Not a candidate for emergent TPA. discussed with Dr. morillo. treated with rocephin for UTI. 22:02 ED course: 2200 hrs: c/o ALLEN. pain meds given. noted elevated BP. will give BP meds from ma pt's current BP med list. will continue to monitor and reassess. 03/21 19:16 Order name: Basic Metabolic Panel ma 03/21 19:16 Order name: CBC with Diff ma 03/21 19:16 Order name: Hepatic Function ma 03/21 19:16 Order name: Magnesium; Complete Time: 21:01 ma 03/21 19:16 Order name: Protime (+inr) ma 03/21 19:16 Order name: Troponin (emerg Dept Use Only); Complete Time: 21: ma 03/21 19:16 Order name: CT Head Brain wo Cont; Complete Time: 20:26 ma 03/21 19:27 Order name: Urine Microscopic Only; Complete Time: 21:01 [facility] 03/21 19:30 Order name: Urine Dipstick--Ancillary (enter results); Complete Time: 20:25 [facility] 03/21 21:05 Order name: Urine Culture [facility] 03/21 22:12 Order name: Basic Metabolic Panel [facility] 03/21 22:12 Order name: Basic Metabolic Panel [facility] 03/21 22:12 Order name: CBC with Automated Diff [facility] 03/21 22:12 Order name: CBC with Automated Diff [facility] 03/21 19:16 Order name: EKG; Complete Time: 19:17 ma 03/21 19:16 Order name: Cardiac monitoring; Complete Time: 20:06 ma 03/21 19:16 Order name: EKG - Nurse/Tech; Complete Time: 21:01 ma 03/21 19:16 Order name: IV Saline Lock; Complete Time: 21:01 ma 03/21 19:16 Order name: Labs collected and sent; Complete Time: 21:02 ma 03/21 20:34 Order name: Chest Single View XRAY; Complete Time: 21:33 ma 03/21 22:12 Order name: CONS Physician Consult [facility] 03/21 22:12 Order name: Consistent Carb (ADA) 1800 Renan EDAZ 03/21 22:26 Order name: MRA Neck Without Cont EDMS 03/21 22:26 Order name: Brain Wo Cont EDMS 03/21 19:16 Order name: NPO; Complete Time: : ma 03/21 19:16 Order name: O2 Per Protocol; Complete Time: : ma 03/21 19:16 Order name: O2 Sat Monitoring; Complete Time: : ma 03/21 19:16 Order name: Urine Dipstick-Ancillary (obtain specimen); Complete Time: : ma 03/21 21:03 Order name: Recheck Blood Pressure; Complete Time: 22:48 wa Administered Medications: 22:20 Drug: cloNIDine 0.1 mg Route: PO; cc3 23:00 Follow up: Response: No adverse reaction; Blood pressure is lowered cc3 22:20 Drug: amLODIPine 5 mg Route: PO; cc3 23:00 Follow up: Response: No adverse reaction; Blood pressure is lowered cc3 22:30 Drug: fentaNYL (PF) 25 mcg {Note: RASS 0.} Route: IVP; Site: right hand; cc3 23:14 Follow up: Response: No adverse reaction; Pain is decreased; RASS: Alert and Calm (0) cc3 22:35 Drug: Zofran 4 mg Route: IVP; Site: right hand; cc3 23:14 Follow up: Response: No adverse reaction; Nausea is decreased cc3 22:40 Drug: Rocephin - (cefTRIAXone) 2 grams Route: IVPB; Infused Over: 30 mins; Site: right cc3 hand; 23:14 Follow up: Response: No adverse reaction; IV Status: Completed infusion; IV Intake: [id number] 22:48 Not Given (Patient Refused; Patient said she cannot take Aspirin because she's on cc3 Xarelto): Aspirin Chewable Tablet 324 mg PO once; 81 mg tablets x 4 Disposition: 03/21/19 21:18 Hospitalization ordered by Casa Morton for Observation. Preliminary diagnosis are Acute dizziness, UTI. - Bed requested for Telemetry/MedSurg (observation). - Status is Observation. cc3 - Condition is Stable. - Problem is new. - Symptoms have improved. UTI on Admission? Yes Signatures: Dispatcher [employer] EDMS Ashwini Mullins RN RN aj1 Reva Massey RN Guillaume Page MD MD wa Cordel, Charlene cc3 Corrections: (The following items were deleted from the chart) 22:15 21:18 Hospitalization Ordered by Casa Morton MD for Observation. Preliminary diagnosis mw is Acute dizziness; UTI. Bed requested for Telemetry/MedSurg (observation). Status is Observation. Condition is Stable. Problem is new. Symptoms have improved. UTI on Admission? Yes. ma 23:49 22:15 03/21/2019 21:18 Hospitalization Ordered by Casa Morton MD for Observation. cc3 Preliminary diagnosis is Acute dizziness; UTI. Bed requested for Telemetry/MedSurg (observation). Status is Observation. Condition is Stable. Problem is new. Symptoms have improved. UTI on Admission? Yes. mw
--- NOTE | 2019-03-21 21:24 | RAD REPORT ---
EXAM DESCRIPTION: Giovanny Single View03/21/2019 8:59 pm CLINICAL HISTORY: sob COMPARISON: December 2018 FINDINGS: The lungs appear clear of acute infiltrate. The heart is mildly enlarged IMPRESSION: No acute abnormalities displayed
[2019-03-21] MEDS ORDERED: ONDANSETRON 4 MG/2 ML VIAL IV PRN (22:07)
[2019-03-21] MEDS ORDERED: ASPIRIN 81 MG CHEWABLE TABLET PO ONE (22:11)
[2019-03-21] MEDS ORDERED: cloNIDine HCL 0.1 MG TAB ONE (22:23)
[2019-03-21] MEDS ORDERED: FENTANYL CITR 100 MCG/2 ML ONE (22:24)
[2019-03-21] MEDS ORDERED: ASPIRIN EC 81 MG TAB PO ONE (22:25)
[2019-03-21] MEDS ORDERED: AMLODIPINE 5 MG TAB ONE (22:25)
[2019-03-21] MEDS ORDERED: CEFTRIAXONE/SWI 1gm 2 GM/20 ML SYR ONE (22:26)
[2019-03-21] MEDS ORDERED: ONDANSETRON 4 MG/2 ML VIAL ONE (22:26)
[2019-03-22 00:06] VITALS: BMI 31.1
[2019-03-22 06:01] LABS: Absolute Lymphocytes (CBC) 1.8 K/uL (0.7-4.9); Basophils % 0.6 % (0-1.3); Hematocrit 32.2 % (36.0-45.0); Lymphocytes % 17.3 % (15.3-44.8); MPV 9.7 fL (7.6-11.3); RBC Red Blood Cell Count 3.56 M/uL (3.86-4.86)
--- NOTE | 2019-03-22 06:01 | EKG ---
Test Date: 2019-03-21 Test Time: 20:04:12 Circular Sawyer Helper: MILAD MEASUREMENT RESULTS: Intervals: Rate: 72 IL: 124 QRSD: 142 QT: 472 QTc: 516 [place]: P: 74 IL: 124 QRS: -42 T: 8 INTERPRETIVE STATEMENTS: Normal sinus rhythm Left axis deviation Right bundle branch block Voltage criteria for left ventricular hypertrophy Abnormal ECG Compared to ECG 12/27/2018 20:51:03 Right bundle-branch block now present Electronically Signed On 03-22-19 06:00:52 APPRENTICE COOK by Abhijit Joseph
[2019-03-22 06:09] LABS: Potassium 3.9 mmol/L (3.5-5.1)
[2019-03-22] MEDS ORDERED: cloNIDine HCL 0.1 MG TAB PO PRN ×2 (06:49→16:15)
[2019-03-22] MEDS ORDERED: COLCHICINE 0.6 MG TAB PO PRN (06:52)
[2019-03-22] MEDS: RANITIDINE 150 MG TABLET PO SCH ×4 (08:51→21:21)
[2019-03-22] MEDS: GABAPENTIN 100 MG CAP PO SCH ×3 (08:51→21:21)
[2019-03-22] MEDS: TORSEMIDE 20 MG TAB PO SCH (08:51)
[2019-03-22] MEDS: allopurinoL 300 MG TAB PO SCH (08:52)
[2019-03-22] MEDS: HYDRALAZINE HCL 25 MG TABLET PO SCH ×2 (08:52→21:21)
[2019-03-22] MEDS: AMLODIPINE 2.5 MG TAB PO SCH (08:53)
[2019-03-22] MEDS: VALSARTAN 160 MG TAB PO SCH (08:53)
[2019-03-22] MEDS: ALBUTEROL INHALER 60 PUFF/8 GM IH SCH ×4 (08:54→21:00)
[2019-03-22] MEDS ORDERED: RIVAROXABAN 20 MG TABLET PO SCH (09:00)
[2019-03-22] MEDS ORDERED: NEBIVOLOL HCL 20 MG TABLET PO SCH (09:00)
[2019-03-22] MEDS ORDERED: CEFTRIAXONE 1 GM/NS 50 ML 1 GM/50 ML BAG IV SCH (09:00)
[2019-03-22] MEDS ORDERED: PNEUMOCOCCAL VACCINE 0.5 ML IMVAC ONE (09:00)
--- NOTE | 2019-03-22 09:06 | RAD REPORT ---
EXAM DESCRIPTION: MRI - Brain Wo Cont - 03/22/2019 8:49 am CLINICAL HISTORY: Dizziness/syncope COMPARISON: March 21, 2019 cat scan TECHNIQUE: Axial, sagittal, and coronal magnetic images of the brain were obtained. Contrast was not requested FINDINGS: Moderate signal is present within periventricular, deep and subcortical white matter bilat erally probably ischemic changes secondary to small vessel disease Diffusion-weighted/ADC mapping does not reveal evidence of acute infarction. The ventricles are normal caliber. 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 Fluid within the sinuses/mastoids is not noted. 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
--- NOTE | 2019-03-22 09:12 | RAD REPORT ---
EXAM DESCRIPTION: MRI - MRA Neck Without Cont - 03/22/2019 8:48 am CLINICAL HISTORY: Syncope/dizziness COMPARISON: None. TECHNIQUE: 2D and 3D [id number] Magnetic resonance angiogram of the neck was performed. MIPS rec onstruction performed. Contrast was not administered secondary to an elevated creatinine. This does l imit the quality of the examination. FINDINGS: Mild plaque is present within the common and internal carotid arteries bilaterally. Portions of the proximal and mid left internal carotid artery are not well visualized secondary to te chnical factors. Mild to moderate narrowing of the proximal left and mild narrowing of the proximal right external car otid arteries Evaluation of vertebral arteries was suboptimal without visualization of gross abnormality. IMPRESSION: Mild plaque within the common internal carotid arteries bilaterally Limited evaluation of portions of the proximal and mid left internal carotid arteries and vertebral a rteries. It is recommended that patient have a carotid ultrasound for further evaluation NASCET criteria used. Mild 0-49% stenosis Moderate 50-69% stenosis Severe 70-99% stenosis
--- NOTE | 2019-03-22 09:17 | RAD REPORT ---
EXAM DESCRIPTION: MRI - MRA Head Wo Cont - 03/22/2019 8:49 am CLINICAL HISTORY: Syncope and dizziness COMPARISON: None. TECHNIQUE: Magnetic resonance angiogram was performed. 3D MIPS reconstruction performed FINDINGS: The anterior cerebral, middle cerebral, posterior cerebral, distal internal carotid arteri es do not demonstrate a significant stenosis. 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 8 millimeter basilar tip arterial aneurysm IMPRESSION: 8 millimeter basilar tip arterial aneurysm
[2019-03-22] MEDS ORDERED: METFORMIN ER 500 MG TAB PO SCH ×2 (17:30)
[2019-03-22] MEDS: NEBIVOLOL HCL 20 MG TABLET PO SCH (18:16)
--- NOTE | 2019-03-22 18:20 | P.HP ---
Certification for Inpatient Patient admitted to: Observation With expected LOS: <2 Midnights Practitioner: I am a practitioner with admitting privileges, knowledge of patient current condition, hospital course, and medical plan of care. Services: Services provided to patient in accordance with Admission requirements found in Title 42 Section 412.3 of the Code of Federal Regulations Patient History Date of Service: 03/22/19 Reason for admission: SUDDEN DIZZINESS History of Present Illness: IS A PATIENT WITH HTN WAS WATCHING TV WITH FAMILY AND SUDDENLY GOT DIZZY AND NAUSEOUS. SHE IS UNSTEADY AT GAIT. I ASKED ER MD TO ORDER STROKE PROTOCOL BUT MRI COULD NOT BE DONE LAST NIGHT. SHE HAS 8 MM ANEURYSM AT THE BASILAR ARTERY. SHE IS CLINICALLY STABLE. I CALLED DR. BOLTON WHO WANTED TO TRANSFER PATIENT TO [facility] BUT THEY WANT TO SEE HER OUTPATIENT. I WILL TRY TO REDUCE HER BP WHILE SHE IS HERE. HER DIET IS POOR AT HOME AND THERE IS NO CONTROL OVER SALT AND WEIGHT. Allergies codeine phosphate [From Tylenol-Codeine #3] Allergy (Mild, Verified 04/05/17 23: 42) Rash morphine Allergy (Mild, Verified 04/05/17 23:42) Hives/Rash acetaminophen [From Darvocet-N 100] Allergy (Verified 04/05/17 23:42) Rash codeine Allergy (Verified 04/05/17 23:42) Rash meperidine HCl [From Demerol] Allergy (Verified 04/06/17 12:12) Unknown propoxyphene napsylate [From Darvocet-N 100] Allergy (Verified 04/05/17 23:42) Nausea/Vomiting BACLOFEN Allergy (Severe, Uncoded 04/05/17 23:42) Unknown Hydrocodone-Acetaminophen Allergy (Severe, Uncoded 04/05/17 23:42) Itching/Hives/Rash Tape Allergy (Severe, Uncoded 04/05/17 23:42) Rash plastic Allergy (Uncoded 04/05/17 23:42) Unknown Home Medications: Gabapentin [Neurontin*] 300 mg PO TID 02/14/16 Amlodipine [Norvasc*] 5 mg PO DAILY 12/02/16 allopurinoL [Zyloprim*] 100 mg PO DAILY 12/02/16 cloNIDine HCL [Catapres*] 0.1 mg PO TID PRN 12/02/16 Doxepin HCl [Sinequan] 25 mg PO BEDTIME 04/05/17 Rivaroxaban [Xarelto] 20 mg PO DAILY 04/05/17 Albuterol Sulfate [Proair Hfa] 2 puff IH QID 03/22/19 Azilsartan Medoxomil [Edarbi] 80 mg PO DAILY 03/22/19 Colchicine 0.6 mg PO Q2H 03/22/19 Hydralazine HCl [Apresoline] 199 mg PO BID 03/22/19 Metformin ER [Glucophage ER*] 500 mg PO PCS 03/22/19 Nebivolol HCl [Bystolic*] 20 mg PO DAILY 03/22/19 Ranitidine [Zantac*] 150 mg PO ACHS 03/22/19 Torsemide [Demadex*] 20 mg PO DAILY 03/22/19 - Past Medical/Surgical History Has patient received pneumonia vaccine in the past: No Diabetic: No -: hypertension -: hyperlipidemia -: hypothyroid -: gout -: appendectomy -: cholecystectomy -: jaqueline -: appe -: knee surg x2 -: wrist surg x3 -: surg on chin, not sure what it was -: L Knee replacement -: appendectomy -: Cholecystectomy - Family History Brother -: Heart disease, Hypertension, Diabetes, Liver disease, Kidney disease Father -: Lung disease Mother -: Heart disease, Hypertension, Blood disorders - Social History Smoking Status: Never smoker Alcohol use: No CD- Drugs: No Caffeine use: Yes Place of Residence: Home Review of Systems 10-point ROS is otherwise unremarkable General: As per HPI Physical Examination - Vital Signs Temperature: 97.3 F Blood Pressure: 167/48 Pulse: 85 Respirations: 23 Pulse Ox (%): 94 - Physical Exam General: Alert, In no apparent distress, Obese HEENT: Atraumatic, PERRLA, Mucous membr. moist/pink, EOMI, Sclerae nonicteric Neck: Supple, 2+ carotid pulse no bruit, No LAD, Without JVD or thyroid abnormality Respiratory: Clear to auscultation bilaterally, Normal air movement Cardiovascular: Regular rate/rhythm, Normal S1 S2 Gastrointestinal: Normal bowel sounds, No tenderness Musculoskeletal: No tenderness Integumentary: No rashes Neurological: Normal speech, Normal strength at 5/5 x4 extr, Normal tone, Normal affect, Abnormal gait (UNSTEADY GAIT, MILD ATAXIA. ) Lymphatics: No axilla or inguinal lymphadenopathy - Studies Laboratory Data (last 24 hrs) 03/22/19 05:26: Sodium 142, Potassium 3.9, BUN 41 H, Creatinine 1.63 H, Glucose 128 H 03/22/19 05:26: WBC 10.4, Hgb 10.8 L, Hct 32.2 L, Plt Count 218 03/21/19 20:15: PT 13.0 H, INR 1.11 03/21/19 20:15: WBC 11.6 H, Hgb 11.1 L, Hct 33.1 L, Plt Count 224 03/21/19 20:15: Sodium 139, Potassium 4.1, BUN 43 H, Creatinine 1.82 H, Glucose 144 H, Magnesium 2.2, Total Bilirubin 0.2, AST 19, ALT 27, Alkaline Phosphatase 98 Assessment and Plan - Problems (Diagnosis) (1) Basilar artery aneurysm Current Visit: Yes Status: Acute Plan: BP CONTROL SHE WILL NEED NEUROSURGERY EVAL. WE WILL GET HER APT BEFORE SHE GOES HOME. SEE HPI. (2) Hypertension Onset Date: 02/14/16 Current Visit: No Status: Chronic Plan: I RAISED BYSTOLIC TO BID AND HOPEFULLY BP WILL BE DOWN. SHE HAS A LABILE HTN AND AT TIMES SHE IS 120 AND NEXT DAY WITH SAME MEDS SHE CAN BE 200 SYSTOLIC. DIET IS POOR AND NOT SALT CONTROLLED. Qualifiers: Hypertension type: essential hypertension (3) Atrial fibrillation Current Visit: No Status: Chronic - Advance Directives Does patient have a Living Will: No Does patient have a Durable POA for Healthcare: No
[2019-03-22] MEDS ORDERED: DOXEPIN HCL 25 MG CAP ONE (20:49)
[2019-03-22] MEDS ORDERED: DOXEPIN HCL 25 MG CAP PO SCH (21:00)
[2019-03-22] MEDS ORDERED: DOXEPIN HCL 10 MG CAP PO SCH (21:00)
[2019-03-22] MEDS ORDERED: CEFTRIAXONE/SWI 1gm 1 GM/10 ML SYR IV SCH (21:00)
--- NOTE | 2019-03-23 00:07 | CON ---
Reason For Consultation: Consultation called because of dizziness. History Of Present Illness: Ms. Lancaster is a 79-year-old right-handed patient with atrial fibrillation, on Xarelto 20 mg daily, hypertension, hypothyroidism, who has had for at least 2 weeks episodes of lightheadedness, generalized weakness, feeling faint and vertiginous symptoms. She had significant episode on the 10th, that is yesterday and that episode occurred for about 1 hour prior to her coming into [facility] around 6:45 in the evening. She was evaluated by head CT scan, which was unremarkable. Her NIH Stroke Scale was actually placed at 0, but she did have some orthostatic related symptoms. 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 She did not have acute ischemic or hemorrhagic stroke. There was moderate small-vessel ischemic disease. MRA of the neck was limited in its evaluation of the internal carotid arteries and vertebral arteries and there is recommendation for an echocardiogram. It should be noted that the rest of the brain MRA did not show anything further and the MRA identified that the aneurysm mass 8 mm instead of 7.5. She was also diagnosed with urinary tract infection and was given Rocephin. At this point, she is hemodynamically stable, but at her admission she had very elevated blood pressures with systolic ranging up to over 200 or 210 and diastolic up to 98. Currently, blood pressure is 167/48. The possibility of a transfer was discussed and transfer center in [place] was contacted. After speaking with the neuro-interventionalist, they reported that since the patient has a non-ruptured basilar artery aneurysm and her blood pressure is greater than 140, that they do not recommend transfer for acute intervention at this time, but control her blood pressure and then schedule an outpatient evaluation for possible aneurysm evaluation and treatment accordingly. The patient was then transferred to the ICU for closer monitoring and to address her blood pressure issues. Past Medical History: As indicated in addition to cervical radiculopathy, congestive heart failure, degenerative joint disease, gastroesophageal reflux disease, gout, dyslipidemia, hypertension, and hypothyroidism. Past Surgical History: Knee surgery, hand surgery, cholecystectomy, appendectomy. Allergies: ACETAMINOPHEN, BACLOFEN, CODEINE, DARVOCET, NORCO, MORPHINE, PLASTIC TAPE, DEMEROL. Medications: At home, allopurinol 100 mg daily, amlodipine 5 mg daily, Bystolic 20 mg daily, clonidine 0.2 mg tablets 3 times daily, colchicine 0.6 mg every 2 hours, doxepin 25 mg at night, Neurontin 300 mg 3 times daily, hydralazine 100 mg 2 times daily, metformin 500 mg daily, ProAir inhaler 2 puffs every 6 hours as needed, ranitidine 150 mg before meals, Xarelto 20 mg daily. Family History: Noncontributory. Social History: No alcohol, tobacco, or IV drug use. Review of Systems: No recent fevers, chills, nausea, vomiting, myalgias, arthralgias, headaches, weight change, rash, psychiatric complaints, gastrointestinal or genitourinary issues. Physical Examination: Vital Signs: Blood pressure 167/48, pulse is 77, respiratory rate 17, temperature 97.3, oxygen saturation 94% on room air, weight 197 pounds, height 5 feet 5 inches, BMI 31.2. General: Ms. Lancaster is sitting on the side of her bed, in no acute distress. HEENT: She is normocephalic, atraumatic. Sclerae were anicteric. Oropharynx is pink and moist. Heart: Irregularly, irregular. Abdomen: Soft. Extremities: Show no significant clubbing, cyanosis, or edema. She does have some pain in the knees where she had a left knee replacement and she is scheduled for a potential right knee replacement due to degenerative joint disease there. NEUROLOGIC: Cranial nerve examination revealed no deficits. She has full visual laws to confrontation. Pupils are round, reactive to light and accommodation. Extraocular muscles are intact. Facial sensation intact to light touch and temperature bilaterally. Hearing slightly decreased bilaterally to finger rub. Tongue and palate extrude and elevate respectively in the midline. Motor examination in the upper extremities, no weakness left and right, proximally and distally. In the lower extremities, she has suboptimal effort due to bilateral knee pain. Sensory exam, stocking-glove, loss to light touch temperature. Reflexes 1+ at biceps, triceps, 0 at patellar , 0 at Achilles. Gait is antalgic and she has some orthostatic type dizziness as she gets up that resolves somewhat as she sits down. Laboratory Studies: Complete blood count with differential is essentially showing slightly low hemoglobin of 10.8, hematocrit 32.2, platelets normal 218, white blood cell count 10.4, INR 1.1. Chemistries; sodium 142, potassium 3.9, chloride 108, carbon dioxide 29, BUN 41, creatinine 1.63, glucose ranged 128-149 , calcium 8.9, magnesium 2.2. Liver function studies normal. Urinalysis 10-20 epithelial cells, 20-50 white blood cells, 1+ esterase, 2+ protein. Assessment And Plan: Ms. Lancaster is a 79-year-old with an 8 mm tip of the basilar aneurysm and symptoms of vertigo, but no focal long track findings. No speech loss. No vision loss. The transfer center in [place] was contacted, but they refused patient admission at this point indicating that she should be seen outpatient once her blood pressure is controlled with systolic blood pressure being less than 140. This was communicated with Dr. Morton, the patient 's primary care physician, and she is now in ICU to address her blood pressure and will then be discharged for admission to [place]. She should continue aggressive management of hypertension. At this point, continue all medications as indicated. Continue DVT prophylaxis, which actually is the Xarelto 20 mg daily, and once she has been discharged and her aneurysm addressed, she may follow up with Dr. Mccall's clinic 1 month later. RACHANA/FREDDY Voice ID: [id number] Report ID: [id number] BILLY
[2019-03-23 00:19] VITALS: O2SAT 100
[2019-03-23] MEDS: HYDRALAZINE HCL 25 MG TABLET PO SCH (08:59)
[2019-03-23] MEDS: GABAPENTIN 100 MG CAP PO SCH (08:59)
[2019-03-23] MEDS: VALSARTAN 160 MG TAB PO SCH (08:59)
[2019-03-23] MEDS: AMLODIPINE 2.5 MG TAB PO SCH (08:59)
[2019-03-23] MEDS: RANITIDINE 150 MG TABLET PO SCH (09:00)
[2019-03-23] MEDS: ALBUTEROL INHALER 60 PUFF/8 GM IH SCH (09:00)
[2019-03-23] MEDS: NEBIVOLOL HCL 20 MG TABLET PO SCH (09:00)
[2019-03-23] MEDS: TORSEMIDE 20 MG TAB PO SCH (11:20)
[2019-03-23] MEDS: allopurinoL 300 MG TAB PO SCH (11:21)
[2019-03-23] MEDS ORDERED: ACETAMINOPHEN 325 MG TABLET ONE (11:21)
[2019-03-23 11:23] VITALS: BP 150/45
[2019-03-23 11:49] VITALS: TEMP 98.2
[2019-03-23] MEDS ORDERED: RIVAROXABAN 20 MG TABLET PO SCH (17:00)
--- NOTE | 2019-03-24 07:35 | DS ---
Date of Discharge: 03/23/2019 Final Diagnosis: Basilar artery aneurysms. Secondary Diagnoses: Hypertension, atrial fibrillation, degenerative joint disease. Hospital Course: Patient is a 79-year-old with past medical history of elbow problems, comes in with acute severe dizziness and nausea, turns out to have a vertebral basilar artery aneurysm about [address] Mccall consulted on the patient. He talked to the doctors in [place] and then our nurses jayce led in an appointment for a neurosurgeon to see her on , which is the earliest appointment we can get. She is clinically stable, able to ambulate. I raised her Bystolic to 20 mg p.o. b.i.d. She t olerated it well. Her blood pressure stayed about 140/60, down to 110/60. Discharge Condition: Stable. Followup: In office in a week or 10 days or we will see her in beginning of April. Her WBC was hi gh in the urine, but she has no symptoms of UTI. This is asymptomatic bacteriuria. SAURABH/MODL Voice ID: [id number] Report ID: [id number]
== END 2019-03-23 11:40 | disposition home or self-care (01) | DRG 93 ==
LOC: ER 18:38 → ERHOLD 22:04 → 2ND 23:08 → OBSVTOIN 03-22 14:26 → 3RD-ICU 03-22 15:08
PROVIDERS: ADMIT Internal Medicine; ATTEND Internal Medicine
DX: I67.1 Cerebral aneurysm, nonruptured (principal); E03.9 Hypothyroidism, unspecified; I10 Essential (primary) hypertension; E78.5 Hyperlipidemia, unspecified; M10.9 Gout, unspecified; Z96.652 Presence of left artificial knee joint; I48.91 Unspecified atrial fibrillation; Z79.01 Long term (current) use of anticoagulants
CPT/HCPCS: 36415; 70450; 70544; 70547; 70551; 71045; 80048; 80076; 81003; 81015; 82947; 83735; 84484; 85025; 85610; 87086; 87088; 90670; 93005; 96365; 96375; 99285; G0378; J0696; J2405; J3010

== ENCOUNTER 2019-04-12 11:44 | Emergency (ER) | payer OTHER ==
--- OUTSIDE RECORDS SUMMARY | 2019-04-12 11:46 | XMS REPORT ---
:1940 Author Organization [facility] Address [address] [place] [address] Care Team Providers Name Role Phone KHAI CARRASCO Unavailable Unavailable Problems This patient has no known problems. Allergies, Adverse Reactions, Alerts This patient has no known allergies or adverse reactions. Medications This patient has no known medications. Results Test Description Test Time Test Comments Text Results Atomic Results Result Comments BASIC METABOLIC PANEL 2019-03-31 14:37:00 Test Item Value Reference Range Comments SODIUM (BEAKER) (test 140 meq/L 136-145 ccdh=191) POTASSIUM (BEAKER) (test 4.6 meq/L 3.5-5.1 ztsr=356) CHLORIDE (BEAKER) (test 107 meq/L 98-107 xnuj=991) CO2 (BEAKER) (test kjyz=684) 23 meq/L 22-29 BLOOD UREA NITROGEN (BEAKER) 78 mg/dL 7-21 (test vrzb=799) CREATININE (BEAKER) (test 2.35 mg/dL 0.57-1.25 dixt=703) GLUCOSE RANDOM (BEAKER) 112 mg/dL 70-105 (test fslx=887) CALCIUM (BEAKER) (test 9.8 mg/dL 8.4-10.2 jkbk=584) EGFR (BEAKER) (test 20 mL/min/1.73 sq m ESTIMATED GFR IS NOT axfx=4833) ACCURATE CREATININE CLEARANCE IN PREDICTING GLOMERULAR FILTRATION RATE. ESTIMATED GFR IS NOT APPLICABLE FOR DIALYSIS PATIENTS. BASIC METABOLIC [id number] 13:34:00 Test Item Value Reference Range Comments SODIUM (BEAKER) (test 138 meq/L 136-145 ivkj=564) POTASSIUM (BEAKER) (test 4.6 meq/L 3.5-5.1 kdgb=844) CHLORIDE (BEAKER) (test 106 meq/L 98-107 yrpr=738) CO2 (BEAKER) (test 21 meq/L 22-29 awxc=871) BLOOD UREA NITROGEN 80 mg/dL 7-21 (BEAKER) (test urhy=339) CREATININE (BEAKER) (test 2.49 mg/dL 0.57-1.25 cuix=260) GLUCOSE RANDOM (BEAKER) 122 mg/dL 70-105 (test nfbg=722) CALCIUM (BEAKER) (test 9.9 mg/dL 8.4-10.2 yafo=740) EGFR (BEAKER) (test 19 mL/min/1.73 sq m ESTIMATED GFR IS NOT uiza=4245) ACCURATE CREATININE CLEARANCE IN PREDICTING GLOMERULAR FILTRATION RATE. ESTIMATED GFR IS NOT APPLICABLE FOR DIALYSIS PATIENTS. [id number] 12:49:00 Test Item Value Reference Range Comments PROTIME (BEAKER) (test ohhd=647) 13.2 seconds 11.9-14.2 INR (BEAKER) (test grxn=414) 1.1 <=5.9 PARTIAL THROMBOPLASTIN TIME (BEAKER) (test 28.8 seconds 22.5-36.0 qofk=938) Effective 09/07/2018: PT Reference Range ChangeNew: 11.9-14.2 Previous: 11.7- 14.7RECOMMENDED COUMADIN/WARFARIN INR THERAPY RANGESSTANDARD DOSE: 2.0-3.0 Includes: PROPHYLAXIS for venous thrombosis, systemic embolization; TREATMENT for venous thrombosis and/or pulmonary embolus.HIGH RISK: Target INR is2.5-3.5 for patients wiht mechanical heart valves.CBC W/PLT COUNT & AUTO [id number] 12:48:00 Test Item Value Reference Range Comments WHITE BLOOD CELL COUNT (BEAKER) (test xynv=306) 12.4 K/ L 3.5-10.5 RED BLOOD CELL COUNT (BEAKER) (test keuo=014) 3.90 M/ L 3.93-5.22 HEMOGLOBIN (BEAKER) (test gsdv=058) 11.4 GM/DL 11.2-15.7 HEMATOCRIT (BEAKER) (test rsjs=088) 36.5 % 34.1-44.9 MEAN CORPUSCULAR VOLUME (BEAKER) (test pxkp=556) 93.6 fL 79.4-94.8 MEAN CORPUSCULAR HEMOGLOBIN (BEAKER) (test 29.2 pg 25.6-32.2 gggx=224) MEAN CORPUSCULAR HEMOGLOBIN CONC (BEAKER) (test 31.2 GM/DL 32.2-35.5 vhcz=219) RED CELL DISTRIBUTION WIDTH (BEAKER) (test 13.7 % 11.7-14.4 lydf=438) PLATELET COUNT (BEAKER) (test uqiy=719) 307 K/CU MM 150-450 MEAN PLATELET VOLUME (BEAKER) (test ldlv=900) 11.3 fL 9.4-12.3 NUCLEATED RED BLOOD CELLS (BEAKER) (test 0 /100 WBC 0-0 gtdz=303) NEUTROPHILS RELATIVE PERCENT (BEAKER) (test 68 % fulf=090) LYMPHOCYTES RELATIVE PERCENT (BEAKER) (test 19 % vjha=079) MONOCYTES RELATIVE PERCENT (BEAKER) (test 8 % ozkp=898) EOSINOPHILS RELATIVE PERCENT (BEAKER) (test 4 % uleu=874) BASOPHILS RELATIVE PERCENT (BEAKER) (test 1 % boeh=373) NEUTROPHILS ABSOLUTE COUNT (BEAKER) (test 8.38 K/ L 1.56-6.13 cyuz=715) LYMPHOCYTES ABSOLUTE COUNT (BEAKER) (test 2.40 K/ L 1.18-3.74 upcl=153) MONOCYTES ABSOLUTE COUNT (BEAKER) (test 0.94 K/ L 0.24-0.36 pfdk=389) EOSINOPHILS ABSOLUTE COUNT (BEAKER) (test 0.44 K/ L 0.04-0.36 lipw=343) BASOPHILS ABSOLUTE COUNT (BEAKER) (test 0.06 K/ L 0.01-0.08 oeth=226) IMMATURE GRANULOCYTES-RELATIVE PERCENT (BEAKER) 1 % 0-1 (test xzzo=4455)
[2019-04-12] MEDS ORDERED: NA CHLORIDE 0.9% 1,000 ML ONE (12:11)
[2019-04-12] MEDS ORDERED: ONDANSETRON 4 MG/2 ML VIAL ONE (12:11)
[2019-04-12] MEDS ORDERED: CEFTRIAXONE/SWI 1gm 1 GM/10 ML SYR ONE (12:11)
[2019-04-12 12:31] LABS: Absolute Lymphocytes (CBC) 1.5 K/uL (0.7-4.9); Basophils % 0.9 % (0-1.3); Lymphocytes % 12.7 % (15.3-44.8); MPV 9.4 fL (7.6-11.3); RBC Red Blood Cell Count 3.87 M/uL (3.86-4.86)
[2019-04-12 12:38] LABS: Albumin 3.1 g/dL (3.4-5.0); Bilirubin Direct 0.1 mg/dL (0-0.2); Bilirubin Total 0.2 mg/dL (0.2-1.0); Potassium 4.2 mmol/L (3.5-5.1); Protein, Total 7.4 g/dL (6.4-8.2)
[2019-04-12] MEDS ORDERED: METOCLOPRAMIDE 10 MG/2mL INJ ONE (12:57)
[2019-04-12] MEDS ORDERED: KETOROLAC 30 MG/ML INJ ONE (12:57)
--- NOTE | 2019-04-12 13:16 | RAD REPORT ---
EXAM DESCRIPTION: CT - Head Brain Wo Cont - 04/12/2019 12:41 pm CLINICAL HISTORY: Headache, vomiting, history of aneurysm COMPARISON: MRI March 22, 2019 TECHNIQUE: Axial 5 mm thick images of the head were obtained without IV contrast. All CT scans are performed using dose optimization technique as appropriate and may include automated exposure control or mA/KV adjustment according to patient size. FINDINGS: No intracranial hemorrhage is present. No mass effect, edema or shift of midline structure s. No acute cortical based infarction. Atrophy and chronic ischemic change matches comparison. The 7- 8 millimeter basilar tip aneurysm is again noted. Ventricles are in proportion to volume loss. Mastoid air cells and visualized portions of the paranasal sinuses are clear. No acute bony findings. IMPRESSION: No subarachnoid hemorrhage or other acute intracranial finding. No change to the 7-8 mm basilar tip aneurysm since March 22 imaging. Atrophy and chronic ischemic change similar to comparison.
[2019-04-12 13:36] LABS: Urine Blood NEGATIVE (NEG); Urine Glucose NEGATIVE (NEG); Urine Protein 3+ (NEG); Urine Specific Gravity 1.015 (1.005-1.030)
--- NOTE | 2019-04-12 14:07 | ER ---
Nurse's Notes [facility] Name: Bharati Lancaster Age: 79 yrs Sex: Female : 1940 Arrival Date: 04/12/2019 Time: 11:46 Bed 30 Private MD: Casa Morton V Diagnosis: Cystitis, unspecified without hematuria Presentation: 04/12 11:49 Presenting complaint: Patient states: occipital headache that radiates to the top of sv the head, hx frontal brain aneurysm, c/o vomiting, urinary problem x 1 day. Transition of care: patient was not received from another setting of care. Onset of symptoms was April 11, 2019. Risk Assessment: Do you want to hurt yourself or someone else? Patient reports no desire to harm self or others. Care prior to arrival: None. 11:49 Method Of Arrival: Wheelchair sv 11:49 Acuity: GONZALEZ 3 sv 12:10 Initial Sepsis Screen: Does the patient meet any 2 criteria? No. Patient's initial em sepsis screen is negative. Does the patient have a suspected source of infection? Yes: Dysuria/Frequency/Urgency/UTI. Historical: - Allergies: 11:50 ACETAMINOPHEN; sv 11:50 BACLOFEN; sv 11:50 Codeine; sv 11:50 Darvocet-N 100; sv 11:50 Demerol; sv 11:50 Hydrocodone-Acetaminophen; sv 11:50 Morphine; sv 11:50 plastic tape; sv - PMHx: 11:50 Atrial Fib; Cervical radicular pain; Degenative join disease; CHF; GERD; Gout; sv Hyperlipidemia; Hypertension; Hypothyroidism; - PSHx: 11:50 Knee surgery; Cholecystectomy; Appendectomy; hand surgery; sv - Immunization history:: Adult Immunizations up to date. - Social history:: Smoking status: Patient/guardian denies using tobacco, Patient/guardian denies using alcohol, street drugs, The patient lives with family. - Ebola Screening: : Patient negative for fever greater than or equal to 101.5 degrees Fahrenheit, and additional compatible Ebola Virus Disease symptoms Patient denies exposure to infectious person Patient denies travel to an Ebola-affected area in the 21 days before illness onset No symptoms or risks identified at this time. - Family history:: not pertinent. Screenin:30 Abuse screen: Denies threats or abuse. Nutritional screening: No deficits noted. em Tuberculosis screening: No symptoms or risk factors identified. Fall Risk None identified. Assessment: 12:30 General: Appears in no apparent distress. comfortable, Behavior is calm, cooperative, em Denies fever. Pain: Complains of pain in head Pain currently is 8 out of 10 on a pain scale. Neuro: Level of Consciousness is awake, alert, obeys commands, Oriented to person, place, time, situation, Appropriate for age Reports headache occipital area. Cardiovascular: Capillary refill < 3 seconds Patient's skin is warm and dry. Respiratory: Airway is patent Respiratory effort is even, unlabored, Respiratory pattern is regular, symmetrical. GI: Abdomen is round non-distended, Reports constipation, nausea, vomiting, Patient currently denies diarrhea. : Reports burning with urination. Derm: Skin is intact, is fragile, Skin is dry, Skin is pink, warm \T\ dry. Skin temperature is warm. Musculoskeletal: Capillary refill < 3 seconds, Range of motion: intact in all extremities, 13:49 Reassessment: Patient appears in no apparent distress at this time. Patient is alert, em oriented x 3, equal unlabored respirations, skin warm/dry/pink. Patient states feeling better. Patient states symptoms have improved. Vital Signs: 11:50 BP 139 / 70; Pulse 78; Resp 18; Pulse Ox 99% ; Weight 88.45 kg; Height 5 ft. 6 in. sv (167.64 cm); 13:11 BP 159 / 67; Pulse 66; Resp 20; Temp 99.1(O); Pulse Ox 100% on R/A; Pain 8/10; em 11:50 Body Mass Index 31.47 (88.45 kg, 167.64 cm) sv ED Course: 11:46 Patient arrived in ED. as 11:46 Casa Morton MD is Private Physician. as 11:50 Triage completed. sv 11:53 Arm band placed on. sv 11:56 Cesar Shah MD is Attending Physician. ma2 11:59 Pernell Pathak LVN is Primary Nurse. em 12:14 Initial lab(s) drawn, by me, sent to lab. Inserted saline lock: 22 gauge in right lt1 antecubital area, using aseptic technique. 12:30 Patient has correct armband on for positive identification. Bed in low position. Call em light in reach. Side rails up X2. Adult w/ patient. Pulse ox on. NIBP on. 12:40 CT completed. Patient tolerated procedure well. Patient moved back from CT. bq 12:42 Head Brain Wo Cont CT In Process Unspecified. EDMS 14:33 No provider procedures requiring assistance completed. IV discontinued, intact, em bleeding controlled, No redness/swelling at site. Pressure dressing applied. Administered Medications: 12:15 Drug: NS 0.9% 1000 ml Route: IV; Rate: 1 bolus; Site: right antecubital; em 14:30 Follow up: IV Status: Completed infusion; IV Intake: 1000ml em 12:18 Drug: Zofran 4 mg Route: IVP; Site: right antecubital; iw 13:00 Follow up: Response: No adverse reaction; Nausea is decreased em 13:17 Drug: TORadol 30 mg Route: IVP; Site: right antecubital; iw 14:30 Follow up: Response: No adverse reaction; Marked relief of symptoms; Pain is decreased em 13:19 Drug: Reglan 10 mg Route: IVP; Site: right antecubital; iw 14:30 Follow up: Response: No adverse reaction; Marked relief of symptoms; Pain is decreased em 13:20 Drug: Rocephin 1 grams Route: IV; Rate: calculated rate; Site: right antecubital; iw 13:30 Follow up: Response: No adverse reaction; IV Status: Completed infusion; IV Intake: 10mlem 14:29 Drug: Bactrim 160 mg-800 mg (DS) 160 mg Route: PO; em 14:30 Follow up: Response: Medication administered at discharge. em Intake: 13:30 IV: 10ml; Total: 10ml. em 14:30 IV: 1000ml; Total: 1010ml. em Outcome: 14:05 Discharge ordered by MD. villafana 14:33 Discharged to home via wheelchair, with family. em 14:33 Condition: good 14:33 Discharge instructions given to patient, family, Instructed on discharge instructions, follow up and referral plans. medication usage, Demonstrated understanding of instructions, follow-up care, medications, Prescriptions given X 2. 14:35 Patient left the ED. em Signatures: Dispatcher [employer] Tatianna Whittaker, TOI RN Bharati Alanis, Pernell, MACHINE HEEL SPRAYER MACHINE HEEL SPRAYER Jeane Salazar Irene, TOI RN iw Cesar Shah MD MD ma2 Yesica Vásquez 1
--- NOTE | 2019-04-12 14:07 | EDPHYS ---
Physician Documentation [facility] Name: Bharati Lancaster Age: 79 yrs Sex: Female : 1940 Arrival Date: 04/12/2019 Time: 11:46 Bed 30 Private MD: [facility] ED Physician Cesar Shah HPI: 04/12 14:04 This 79 yrs old Female presents to ER via Wheelchair with complaints of ma2 Vomiting, Headache, Urinary Problem. 14:04 The patient presents to the emergency department with nausea, vomiting. Onset: The ma2 symptoms/episode began/occurred gradually, 2 day(s) ago. Associated signs and symptoms: Pertinent negatives: belching, diarrhea, flatulence, GI bleeding. Severity of symptoms: At their worst the symptoms were moderate in the emergency department the symptoms are unchanged. The patient has not experienced similar symptoms in the past, The patient has experienced similar episodes in the past. Historical: - Allergies: 11:50 ACETAMINOPHEN; sv 11:50 BACLOFEN; sv 11:50 Codeine; sv 11:50 Darvocet-N 100; sv 11:50 Demerol; sv 11:50 Hydrocodone-Acetaminophen; sv 11:50 Morphine; sv 11:50 plastic tape; sv - PMHx: 11:50 Atrial Fib; Cervical radicular pain; Degenative join disease; CHF; GERD; Gout; sv Hyperlipidemia; Hypertension; Hypothyroidism; - PSHx: 11:50 Knee surgery; Cholecystectomy; Appendectomy; hand surgery; sv - Immunization history:: Adult Immunizations up to date. - Social history:: Smoking status: Patient/guardian denies using tobacco, Patient/guardian denies using alcohol, street drugs, The patient lives with family. - Ebola Screening: : Patient negative for fever greater than or equal to 101.5 degrees Fahrenheit, and additional compatible Ebola Virus Disease symptoms Patient denies exposure to infectious person Patient denies travel to an Ebola-affected area in the 21 days before illness onset No symptoms or risks identified at this time. - Family history:: not pertinent. ROS: 14:04 Constitutional: Negative for fever, chills, and weight loss. ma2 14:04 All other systems are negative. Exam: 14:04 Constitutional: This is a well developed, well nourished patient who is awake, alert, ma2 and in no acute distress. Head/Face: Normocephalic, atraumatic. Eyes: Pupils equal round and reactive to light, extra-ocular motions intact. Lids and lashes normal. Conjunctiva and sclera are non-icteric and not injected. Cornea within normal limits. Periorbital areas with no swelling, redness, or edema. ENT: Nares patent. No nasal discharge, no septal abnormalities noted. Tympanic membranes are normal and external auditory canals are clear. Oropharynx with no redness, swelling, or masses, exudates, or evidence of obstruction, uvula midline. Mucous membranes moist. Neck: Trachea midline, no thyromegaly or masses palpated, and no cervical lymphadenopathy. Supple, full range of motion without nuchal rigidity, or vertebral point tenderness. No Meningismus. Chest/axilla: Normal chest wall appearance and motion. Nontender with no deformity. No lesions are appreciated. Cardiovascular: Regular rate and rhythm with a normal S1 and S2. No gallops, murmurs, or rubs. Normal PMI, no JVD. No pulse deficits. Respiratory: Lungs have equal breath sounds bilaterally, clear to auscultation and percussion. No rales, rhonchi or wheezes noted. No increased work of breathing, no retractions or nasal flaring. Abdomen/GI: Soft, non-tender, with normal bowel sounds. No distension or tympany. No guarding or rebound. No evidence of tenderness throughout. MS/ Extremity: Pulses equal, no cyanosis. Neurovascular intact. Full, normal range of motion. Neuro: Awake and alert, GCS 15, oriented to person, place, time, and situation. Cranial nerves II-XII grossly intact. Motor strength 5/5 in all extremities. Sensory grossly intact. Cerebellar exam normal. Normal gait. Vital Signs: 11:50 BP 139 / 70; Pulse 78; Resp 18; Pulse Ox 99% ; Weight 88.45 kg; Height 5 ft. 6 in. sv (167.64 cm); 13:11 BP 159 / 67; Pulse 66; Resp 20; Temp 99.1(O); Pulse Ox 100% on R/A; Pain 8/10; em 11:50 Body Mass Index 31.47 (88.45 kg, 167.64 cm) sv MDM: 11:56 Patient medically screened. ma2 14:04 Differential diagnosis: Nonspecific abd pain, pancreatitis, appendicitis, ma2 diverticulitis. Data reviewed: vital signs, nurses notes. Counseling: I had a detailed discussion with the patient and/or guardian regarding: the historical points, exam findings, and any diagnostic results supporting the discharge/admit diagnosis, the presence of at least one elevated blood pressure reading (>120/80) during this emergency department visit, the need for outpatient follow up. Response to treatment: the patient's symptoms have markedly improved after treatment. 04/12 11:59 Order name: Basic Metabolic Panel; Complete Time: 13:09 nh2 04/12 11:59 Order name: CBC with Diff; Complete Time: 13:09 [facility] 04/12 11:59 Order name: Creatinine for Radiology; Complete Time: 13:09 nh2 04/12 11:59 Order name: Hepatic Function; Complete Time: 13:09 nh2 04/12 11:59 Order name: Lipase; Complete Time: 13:09 [facility] 04/12 13:24 Order name: Urine Dipstick--Ancillary (enter results); Complete Time: 13:38 bd 04/12 11:59 Order name: IV Saline Lock; Complete Time: 12:14 nh2 04/12 12:19 Order name: Head Brain Wo Cont CT; Complete Time: 13:38 em 04/12 11:59 Order name: Labs collected and sent; Complete Time: 12:14 nh2 04/12 11:59 Order name: Urine Dipstick-Ancillary (obtain specimen); Complete Time: 13:20 ma2 Administered Medications: 12:15 Drug: NS 0.9% 1000 ml Route: IV; Rate: 1 bolus; Site: right antecubital; em 14:30 Follow up: IV Status: Completed infusion; IV Intake: 1000ml em 12:18 Drug: Zofran 4 mg Route: IVP; Site: right antecubital; iw 13:00 Follow up: Response: No adverse reaction; Nausea is decreased em 13:17 Drug: TORadol 30 mg Route: IVP; Site: right antecubital; iw 14:30 Follow up: Response: No adverse reaction; Marked relief of symptoms; Pain is decreased em 13:19 Drug: Reglan 10 mg Route: IVP; Site: right antecubital; iw 14:30 Follow up: Response: No adverse reaction; Marked relief of symptoms; Pain is decreased em 13:20 Drug: Rocephin 1 grams Route: IV; Rate: calculated rate; Site: right antecubital; iw 13:30 Follow up: Response: No adverse reaction; IV Status: Completed infusion; IV Intake: 10mlem 14:29 Drug: Bactrim 160 mg-800 mg (DS) 160 mg Route: PO; em 14:30 Follow up: Response: Medication administered at discharge. em Disposition: 04/12/19 14:05 Discharged to Home. Impression: Cystitis, unspecified without hematuria. - Condition is Stable. - Discharge Instructions: Urinary Tract Infection, Adult. - Prescriptions for Reglan 10 mg Oral Tablet - take 1 tablet by ORAL route every 6 hours . take 30 minutes before meals and at bedtime; 100 tablet. Bactrim DS 800- 160 mg Oral Tablet - take 1 tablet by ORAL route every 12 hours for 5 days; 12 tablet. - Medication Reconciliation Form, Thank You Letter, Antibiotic Education, Prescription Opioid Use form. - Follow up: Private Physician; When: Tomorrow; Reason: If symptoms return. Signatures: Dispatcher [employer] Tatianna Whittaker, RN RN Pernell Blank, UPHOLSTER[employer] HE[employer]SE UPHOL[employer] HEAR[employer] Jennifer Muñoz RN RN iw Cesar Shah MD MD ma2 Corrections: (The following items were deleted from the chart) 14:35 14:05 04/12/2019 14:05 Discharged to Home. Impression: Cystitis, unspecified without em hematuria. Condition is Stable. Forms are Medication Reconciliation Form, Thank You Letter, Antibiotic Education, Prescription Opioid Use. Follow up: Private Physician; When: Tomorrow; Reason: If symptoms return. ma2
[2019-04-12] MEDS ORDERED: SMZ./TMP. 800/160 MG TABLET ONE (14:17)
[2019-04-12 14:41] VITALS: BP 159/67; TEMP 99.1; O2SAT 100
== END 2019-04-12 14:35 | disposition home or self-care (01) ==
LOC: ER 11:44
DX: N30.90 Cystitis, unspecified without hematuria (principal); I10 Essential (primary) hypertension; Z88.5 Allergy status to narcotic agent; Z88.6 Allergy status to analgesic agent; Z91.048 Other nonmedicinal substance allergy status
CPT/HCPCS: 96361; 85025; 80048; 36415; 80076; 81003; 83690; 70450; 96375; 96374; 99284; J2765; J0696; J7030; J2405

== ENCOUNTER 2019-05-14 11:31 | Emergency (ER) | payer OTHER ==
--- OUTSIDE RECORDS SUMMARY | 2019-05-14 11:33 | XMS REPORT ---
:1940 [facility] Address [address] [place] [address] Care Team Providers Name Role Phone KHAI [...] Comments SODIUM (BEAKER) (test 140 meq/L 136-145 sbon=893) POTASSIUM (BEAKER) (test 4.6 meq/L 3.5-5.1 jdct=647) CHLORIDE (BEAKER) (test 107 meq/L 98-107 lswr=707) CO2 (BEAKER) (test skif=288) 23 meq/L 22-29 BLOOD UREA NITROGEN (BEAKER) 78 mg/dL 7-21 (test hycn=741) CREATININE (BEAKER) (test 2.35 mg/dL 0.57-1.25 ikae=374) GLUCOSE RANDOM (BEAKER) 112 mg/dL 70-105 (test cbgk=075) CALCIUM (BEAKER) (test 9.8 mg/dL 8.4-10.2 fzwk=065) EGFR (BEAKER) (test 20 mL/min/1.73 sq m ESTIMATED GFR IS NOT igdt=6649) ACCURATE CREATININE CLEARANCE IN PREDICTING GLOMERULAR FILTRATION RATE. ESTIMATED GFR IS NOT APPLICABLE FOR DIALYSIS PATIENTS. BASIC METABOLIC [id number] 13:34:00 Test Item Value Reference Range Comments SODIUM (BEAKER) (test 138 meq/L 136-145 xoms=144) POTASSIUM (BEAKER) (test 4.6 meq/L 3.5-5.1 sovh=341) CHLORIDE (BEAKER) (test 106 meq/L 98-107 jwei=097) CO2 (BEAKER) (test 21 meq/L 22-29 kngk=581) BLOOD UREA NITROGEN 80 mg/dL 7-21 (BEAKER) (test xdad=130) CREATININE (BEAKER) (test 2.49 mg/dL 0.57-1.25 zfbk=061) GLUCOSE RANDOM (BEAKER) 122 mg/dL 70-105 (test zvpf=721) CALCIUM (BEAKER) (test 9.9 mg/dL 8.4-10.2 llei=951) EGFR (BEAKER) (test 19 mL/min/1.73 sq m ESTIMATED GFR IS NOT qrrf=3530) ACCURATE CREATININE CLEARANCE IN PREDICTING GLOMERULAR FILTRATION RATE. ESTIMATED GFR IS NOT APPLICABLE FOR DIALYSIS PATIENTS. PT/[id number] 12:49:00 Test Item Value Reference Range Comments PROTIME (BEAKER) (test ckny=715) 13.2 seconds 11.9-14.2 INR (BEAKER) (test unky=027) 1.1 <=5.9 PARTIAL THROMBOPLASTIN TIME (BEAKER) (test 28.8 seconds 22.5-36.0 mwwi=729) Effective 09/07/2018: PT Reference Range ChangeNew: 11.9-14.2 Previous: 11.7- 14.7RECOMMENDED COUMADIN/WARFARIN INR THERAPY RANGESSTANDARD DOSE: 2.0-3.0 Includes: PROPHYLAXIS for venous thrombosis, systemic embolization; TREATMENT for venous thrombosis and/or pulmonary embolus.HIGH RISK: Target INR is2.5-3.5 for patients wiht mechanical heart valves.CBC W/PLT COUNT & AUTO [id number] 12:48:00 Test Item Value Reference Range Comments WHITE BLOOD CELL COUNT (BEAKER) (test whqa=532) 12.4 K/ L 3.5-10.5 RED BLOOD CELL COUNT (BEAKER) (test lmih=791) 3.90 M/ L 3.93-5.22 HEMOGLOBIN (BEAKER) (test mvzz=741) 11.4 GM/DL 11.2-15.7 HEMATOCRIT (BEAKER) (test nioa=975) 36.5 % 34.1-44.9 MEAN CORPUSCULAR VOLUME (BEAKER) (test khoz=730) 93.6 fL 79.4-94.8 MEAN CORPUSCULAR HEMOGLOBIN (BEAKER) (test 29.2 pg 25.6-32.2 ymzr=163) MEAN CORPUSCULAR HEMOGLOBIN CONC (BEAKER) (test 31.2 GM/DL 32.2-35.5 hrrm=993) RED CELL DISTRIBUTION WIDTH (BEAKER) (test 13.7 % 11.7-14.4 uumz=140) PLATELET COUNT (BEAKER) (test inqo=132) 307 K/CU MM 150-450 MEAN PLATELET VOLUME (BEAKER) (test hlmc=412) 11.3 fL 9.4-12.3 NUCLEATED RED BLOOD CELLS (BEAKER) (test 0 /100 WBC 0-0 yltb=243) NEUTROPHILS RELATIVE PERCENT (BEAKER) (test 68 % wqqk=282) LYMPHOCYTES RELATIVE PERCENT (BEAKER) (test 19 % ineb=456) MONOCYTES RELATIVE PERCENT (BEAKER) (test 8 % civb=725) EOSINOPHILS RELATIVE PERCENT (BEAKER) (test 4 % dtlf=232) BASOPHILS RELATIVE PERCENT (BEAKER) (test 1 % vcwi=220) NEUTROPHILS ABSOLUTE COUNT (BEAKER) (test 8.38 K/ L 1.56-6.13 thhj=378) LYMPHOCYTES ABSOLUTE COUNT (BEAKER) (test 2.40 K/ L 1.18-3.74 fvth=451) MONOCYTES ABSOLUTE COUNT (BEAKER) (test 0.94 K/ L 0.24-0.36 irrc=038) EOSINOPHILS ABSOLUTE COUNT (BEAKER) (test 0.44 K/ L 0.04-0.36 npdr=608) BASOPHILS ABSOLUTE COUNT (BEAKER) (test 0.06 K/ L 0.01-0.08 fowq=579) IMMATURE GRANULOCYTES-RELATIVE PERCENT (BEAKER) 1 % 0-1 (test ncbt=5543)
[2019-05-14] MEDS ORDERED: NA CHLORIDE 0.9% 1,000 ML ONE (11:51)
[2019-05-14] MEDS ORDERED: FOLIC ACID 5 MG/ML VIAL ONE (11:52)
--- NOTE | 2019-05-14 11:55 | RAD REPORT ---
EXAM DESCRIPTION: CT - Ct Stroke Brain Wo Cont - 05/14/2019 11:44 am CLINICAL HISTORY: Acute CVA, slurred speech COMPARISON: CT HEAD APRIL 12, 2019 TECHNIQUE: Axial 5 millimeter thick images of the head were obtained without IV contrast. All CT scans are performed using dose optimization technique as appropriate and may include automated exposure control or mA/KV adjustment according to patient size. FINDINGS: No intracranial hemorrhage, mass, or cerebral edema. No acute infarction identifiable. No extra-axial fluid collections. [place] matter-white matter differentiation is preserved. Mild for age atrophy changes are present with ventricular size in proportion. mild to moderate chroni c ischemic changes are present. Visualized portions of the mastoid air cells, paranasal sinuses, and orbits are unremarkable. 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 Images were only immediately available in the exception folder. This precluded comparison. Findings w ere telephoned 11:43 a.m. to the referring clinician based on the preliminary image set. Final dictat ion with comparison was delayed. IMPRESSION: No CT evidence of acute intracranial process. Atrophy is mild and mild to moderate chronic ischemic changes are present. Chronic ischemic change ca n potentially mask nonhemorrhagic CVA. 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 No evidence for subarachnoid hemorrhage.
--- NOTE | 2019-05-14 12:00 | EDPHYS ---
Physician Documentation [facility] Name: Bharati Lancaster Age: 79 yrs Sex: Female : 1940 Arrival Date: 05/14/2019 Time: 11:32 Bed 5 Private MD: Casa Morton V ED Physician Matt Blackburn HPI: 05/14 11:47 This 79 yrs old Female presents to ER via Wheelchair with complaints of dudley Slurred Speech. 11:47 The patient presents to the emergency department with weakness of the right upper dudley extremity, that is mild. Onset: The symptoms/episode began/occurred 1 day(s) ago. Context: occurred at home. Associated signs and symptoms: Pertinent positives: dizziness. Severity of symptoms: At their worst the symptoms were mild in the emergency department the symptoms are unchanged. Patient's baseline: Neuro: alert and fully oriented. The patient has not experienced similar symptoms in the past. Historical: - Allergies: 11:39 ACETAMINOPHEN; aj1 11:39 BACLOFEN; aj1 11:39 Codeine; aj1 11:39 Darvocet-N 100; aj1 11:39 Demerol; aj1 11:39 Hydrocodone-Acetaminophen; aj1 11:39 Morphine; aj1 11:39 plastic tape; aj1 - Home Meds: 11:39 allopurinol 100 mg Oral tab 1 tab once daily [Active]; amlodipine 5 mg tab once daily aj1 [Active]; Bystolic 20 mg Oral tab once daily [Active]; clonidine HCl 0.2 mg Oral tab 3 times per day [Active]; colchicine 0.6 mg Oral cap every two hours until pain goes away or diarrhea starts [Active]; doxepin 25mg QHS miscellaneous at bedtime [Active]; Edarbi 80 mg Oral tab 1 tab once daily [Active]; hydralazine 100 mg Oral tab 2 times per day [Active]; metformin 500 mg Oral Tb24 1 tab once daily [Active]; Neurontin 300 mg Oral cap 1 cap 3 times per day [Active]; ProAir HFA 90 mcg/actuation inhalation HFAA 2 puffs every 6 hours [Active]; ranitidine HCl 150 mg Oral cap 1 cap before meals [Active]; Xarelto 20 mg Oral tab 1 tab once daily [Active]; - PMHx: 11:39 Atrial Fib; Cervical radicular pain; CHF; Degenative join disease; GERD; Gout; aj1 Hyperlipidemia; Hypertension; Hypothyroidism; - Immunization history:: Adult Immunizations up to date. - Coronavirus screen:: The patient has NOT traveled to [place], [place], or [place] in the past 14 days. - Social history:: Smoking status: Patient/guardian denies using tobacco. - Family history:: not pertinent. - Ebola Screening: : Patient denies travel to an Ebola-affected area in the 21 days before illness onset. ROS: 11:47 Constitutional: Negative for fever, chills, and weight loss, Eyes: Negative for injury, dudley pain, redness, and discharge, ENT: Negative for injury, pain, and discharge, Neck: Negative for injury, pain, and swelling, Cardiovascular: Negative for chest pain, palpitations, and edema, Respiratory: Negative for shortness of breath, cough, wheezing, and pleuritic chest pain, Abdomen/GI: Negative for abdominal pain, nausea, vomiting, diarrhea, and constipation, Back: Negative for injury and pain, : Negative for injury, bleeding, discharge, and swelling, MS/Extremity: Negative for injury and deformity, Skin: Negative for injury, rash, and discoloration, Psych: Negative for depression, anxiety, suicide ideation, homicidal ideation, and hallucinations, Allergy/Immunology: Negative for hives, rash, and allergies, Endocrine: Negative for neck swelling, polydipsia, polyuria, polyphagia, and marked weight changes, Hematologic/Lymphatic: Negative for swollen nodes, abnormal bleeding, and unusual bruising. 11:47 Neuro: Positive for numbness, tingling, of the face and right arm. Exam: 11:51 Constitutional: This is a well developed, well nourished patient who is awake, alert, dudley and in no acute distress. Eyes: Pupils equal round and reactive to light, extra-ocular motions intact. Lids and lashes normal. Conjunctiva and sclera are non-icteric and not injected. Cornea within normal limits. Periorbital areas with no swelling, redness, or edema. ENT: Nares patent. No nasal discharge, no septal abnormalities noted. Tympanic membranes are normal and external auditory canals are clear. Oropharynx with no redness, swelling, or masses, exudates, or evidence of obstruction, uvula midline. Mucous membranes moist. Neck: Trachea midline, no thyromegaly or masses palpated, and no cervical lymphadenopathy. Supple, full range of motion without nuchal rigidity, or vertebral point tenderness. No Meningismus. Chest/axilla: Normal chest wall appearance and motion. Nontender with no deformity. No lesions are appreciated. Cardiovascular: Regular rate and rhythm with a normal S1 and S2. No gallops, murmurs, or rubs. Normal PMI, no JVD. No pulse deficits. Respiratory: Lungs have equal breath sounds bilaterally, clear to auscultation and percussion. No rales, rhonchi or wheezes noted. No increased work of breathing, no retractions or nasal flaring. Abdomen/GI: Soft, non-tender, with normal bowel sounds. No distension or tympany. No guarding or rebound. No evidence of tenderness throughout. Back: No spinal tenderness. No costovertebral tenderness. Full range of motion. Female : Normal external genitalia. Skin: Warm, dry with normal turgor. Normal color with no rashes, no lesions, and no evidence of cellulitis. Neuro: Awake and alert, GCS 15, oriented to person, place, time, and situation. Cranial nerves II-XII grossly intact. Motor strength 5/5 in all extremities. Sensory grossly intact. Cerebellar exam normal. Normal gait. Psych: Awake, alert, with orientation to person, place and time. Behavior, mood, and affect are within normal limits. 11:51 Head/face: Noted is 11:51 Neuro: Orientation: is normal, appropriate for stated age, no acute changes, Mentation: is normal, Memory: is normal, appropriate for stated age, no acute changes, Cranial nerves: grossly normal, is grossly normal based on the patient's age, no acute changes, Cerebellar function: is grossly normal, is grossly normal based on the patient's age, no acute changes, Motor: is normal, is grossly normal based on the patient's age, no acute changes, moves all fours, Gait: not tested. Babinski testing is normal, seizure activity, is not displayed by the patient. Vital Signs: 11:51 BP 190 / 65; Pulse 64; Resp 17; Temp 97.8; Pulse Ox 99% on R/A; Pain 0/10; hb NIH Stroke Scale Scores: 11:45 NIHSS Score: 3 em 11:54 NIHSS Score: 2 [facility] MDM: 11:33 Patient medically screened. [facility] 11:51 Data reviewed: vital signs, nurses notes, lab test result(s), EKG, radiologic studies, [facility] CT scan, plain films. 11:56 ED course: to [facility], shlomo,dr shannon. ED course: no tpa, no drip and ship, symptoms began dudley yesterday, on xeralto, awoke with symptoms. 05/14 11:34 Order name: Basic Metabolic Panel; Complete Time: 13:42 em 05/14 11:34 Order name: CBC with Diff; Complete Time: 13:42 em 05/14 11:34 Order name: Protime (+inr); Complete Time: 13:42 05/14 11:34 Order name: Ptt, Activated; Complete Time: 13:42 em 05/14 11:34 Order name: CT Stroke Brain w/o Contrast; Complete Time: 13:42 05/14 12:00 Order name: Glucose, Ancillary Testing; Complete Time: 13:42 [facility] 05/14 11:34 Order name: Stroke CXR 1 View; Complete Time: 13:42 em 05/14 11:34 Order name: EKG; Complete Time: 11:42 em 05/14 11:34 Order name: Accucheck; Complete Time: 12:09 05/14 11:34 Order name: Cardiac monitoring; Complete Time: 12:09 05/14 11:34 Order name: EKG - Nurse/Tech; Complete Time: 12:09 05/14 11:54 Order name: CT Head Angio; Complete Time: 13:42 [facility] 05/14 11:34 Order name: IV Saline Lock; Complete Time: 12:10 05/14 11:34 Order name: Labs collected and sent; Complete Time: 12:09 05/14 11:34 Order name: NPO; Complete Time: 12:09 05/14 11:34 Order name: O2 Per Protocol; Complete Time: 12:10 em 05/14 11:34 Order name: O2 Sat Monitoring; Complete Time: 12:10 05/14 11:34 Order name: Stroke Swallow Screen; Complete Time: 12:09 em Administered Medications: 11:52 Drug: NS 0.9% 1000 ml Route: IV; Rate: 1 bolus; Site: left antecubital; em 13:01 Follow up: IV Status: Completed infusion; IV Intake: 1000ml em 11:52 Drug: foLIC Acid 1 mg Route: IVPB; Site: left antecubital; em 13:01 Follow up: Response: No adverse reaction; IV Status: Completed infusion em Point of Care Testing: Blood Glucose: 11:41 Blood Glucose: 93 mg/dL; em Ranges: Critical Glucose Levels:Adult <50 mg/dl or >400 mg/dl <40 mg/dl or >180 mg/dl Disposition: 05/14/19 12:[address] [facility]. Diagnosis are Cerebral infarction, Anemia, unspecified, Unspecified kidney failure. - Reason for transfer: Higher level of care. - Accepting physician is to [facility]. - Condition is Fair. - Problem is new. - Symptoms have improved. NIH Stroke Scale - NIH Stroke Score Date: 05/14/2019 Time: 11:45 Total Score = 3 1a. Level of Consciousness (LOC) - 0(Alert) 1b. Level of Consciousness (LOC) (Year \T\ Age) - 0(Both) 1c. LOC Commands (Open \T\ Closes Eyes/Knuckle Strap Sewer) - 0(Both) 2. Best Gaze (Lateral Gaze Paresis) - 0(Normal) 3. Visual Field Loss - 0(No visual loss) 4. Facial Palsy - 0(Normal) 5a. Left Arm: Motor (10-second hold) - 0(No drift) 5b. Right Arm: Motor (10-second hold) - 1(Drift) 6a. Left Leg: Motor (5-second hold - always test supine) - 0(No drift) 6b. Right Leg: Motor (5-second hold - always test supine) - 0(No drift) 7. Limb Ataxia (finger/nose \T\ heel/larsen - test with eyes open) - 0(Absent) 8. Sensory Loss (pinprick arms/legs/face) - 1(Mild to moderate loss) 9. Best Language: Aphasia (description/naming/reading) - 0(No aphasia) 10. Dysarthria (speech clarity - read or repeat words) - 1(Mild to Moderate) 11. Extinction and Inattention (visual/tactile/auditory/spatial/personal) - 0(No abnormality) Initials: em NIH Stroke Scale - NIH Stroke Score Date: 05/14/2019 Time: 11:54 Total Score = 2 1a. Level of Consciousness (LOC) - 0(Alert) 1b. Level of Consciousness (LOC) (Year \T\ Age) - 0(Both) 1c. LOC Commands (Open \T\ Closes Eyes/Knuckle Strap Sewer) - 0(Both) 2. Best Gaze (Lateral Gaze Paresis) - 0(Normal) 3. Visual Field Loss - 0(No visual loss) 4. Facial Palsy - 0(Normal) 5a. Left Arm: Motor (10-second hold) - 0(No drift) 5b. Right Arm: Motor (10-second hold) - 1(Drift) 6a. Left Leg: Motor (5-second hold - always test supine) - 0(No drift) 6b. Right Leg: Motor (5-second hold - always test supine) - 0(No drift) 7. Limb Ataxia (finger/nose \T\ heel/larsen - test with eyes open) - 0(Absent) 8. Sensory Loss (pinprick arms/legs/face) - 1(Mild to moderate loss) 9. Best Language: Aphasia (description/naming/reading) - 0(No aphasia) 10. Dysarthria (speech clarity - read or repeat words) - 0(Normal) 11. Extinction and Inattention (visual/tactile/auditory/spatial/personal) - 0(No abnormality) Initials: [facility] Signatures: Dispatcher [employer] Ashwini Sprague, RN RN aj1 Matt Blackburn MD MD cha Munoz, Edgar, RN RN em Baxter, Heather, RN RN Corrections: (The following items were deleted from the chart) 13:44 12:00 05/14/2019 12:00 Transfer ordered to [facility]. Diagnosis is Cerebral infarction. Reason for transfer: Higher level of care. Accepting physician is to [facility]. Condition is Fair. Problem is new. Symptoms have improved. [facility] 14:09 13:44 05/14/2019 12:00 Transfer ordered to [facility]. Diagnosis is Cerebral infarction; Anemia, unspecified; Unspecified kidney failure. Reason for transfer: Higher level of care. Accepting physician is to [facility]. Condition is Fair. Problem is new. Symptoms have improved. [facility]
--- NOTE | 2019-05-14 12:00 | ER ---
Nurse's Notes [facility] Name: Bharati Lancaster Age: 79 yrs Sex: Female : 1940 Arrival Date: 05/14/2019 Time: 11:32 Bed 5 Private MD: Casa Morton V Diagnosis: Cerebral infarction;Anemia, unspecified;Unspecified kidney failure Presentation: 05/14 11:35 Presenting complaint: Patient states: Right sided weakness that was intermittent aj1 yesterday, started again this morning at around 0700 and has gotten progressively worse. Patient states that she has a brain aneurysm that she has an appointment to see if it can be clipped next week. Code stroke called and patient taken directly to CT. Transition of care: patient was not received from another setting of care. Onset of symptoms was May 14, 2019 at 07:00. Risk Assessment: Do you want to hurt yourself or someone else? Patient reports no desire to harm self or others. Risk Assessment: Do you want to hurt yourself or someone else?. Initial Sepsis Screen: Does the patient meet any 2 criteria?. Care prior to arrival: None. 11:35 Method Of Arrival: Wheelchair aj1 11:35 Acuity: GONZALEZ 2 aj1 12:02 Initial Sepsis Screen: Does the patient have a suspected source of infection? No. hb Patient's initial sepsis screen is negative. Triage Assessment: 11:39 The onset of the patients symptoms was May 14, 2019 at 07:00. aj1 Stroke Activation: Symptom onset < 3 hours Physician: Stroke Attending; Name: ; Notified At: ; Arrived At: Physician: Chief Stroke Resident; Name: ; Notified At: ; Arrived At: Physician: Stroke Resident; Name: ; Notified At: ; Arrived At: Physician: ED Attending; Name: ; Notified At: ; Arrived At: Physician: ED Resident; Name: ; Notified At: ; Arrived At: Historical: - Allergies: 11:39 ACETAMINOPHEN; aj1 11:39 BACLOFEN; aj1 11:39 Codeine; aj1 11:39 Darvocet-N 100; aj1 11:39 Demerol; aj1 11:39 Hydrocodone-Acetaminophen; aj1 11:39 Morphine; aj1 11:39 plastic tape; aj1 - Home Meds: 11:39 allopurinol 100 mg Oral tab 1 tab once daily [Active]; amlodipine 5 mg tab once daily aj1 [Active]; Bystolic 20 mg Oral tab once daily [Active]; clonidine HCl 0.2 mg Oral tab 3 times per day [Active]; colchicine 0.6 mg Oral cap every two hours until pain goes away or diarrhea starts [Active]; doxepin 25mg QHS miscellaneous at bedtime [Active]; Edarbi 80 mg Oral tab 1 tab once daily [Active]; hydralazine 100 mg Oral tab 2 times per day [Active]; metformin 500 mg Oral Tb24 1 tab once daily [Active]; Neurontin 300 mg Oral cap 1 cap 3 times per day [Active]; ProAir HFA 90 mcg/actuation inhalation HFAA 2 puffs every 6 hours [Active]; ranitidine HCl 150 mg Oral cap 1 cap before meals [Active]; Xarelto 20 mg Oral tab 1 tab once daily [Active]; - PMHx: 11:39 Atrial Fib; Cervical radicular pain; CHF; Degenative join disease; GERD; Gout; aj1 Hyperlipidemia; Hypertension; Hypothyroidism; - Immunization history:: Adult Immunizations up to date. - Coronavirus screen:: The patient has NOT traveled to [place], [place], or [place] in the past 14 days. - Social history:: Smoking status: Patient/guardian denies using tobacco. - Family history:: not pertinent. - Ebola Screening: : Patient denies travel to an Ebola-affected area in the 21 days before illness onset. Screenin:55 Abuse screen: Denies threats or abuse. Denies injuries from another. Nutritional hb screening: No deficits noted. Tuberculosis screening: No symptoms or risk factors identified. Fall Risk Total Lee Fall Scale indicates Low Risk Score (25-44 pts). Fall prevention measures have been instituted. Side Rails Up X 2 Frequent Obs/Assesments occuring Family Present and informed to notify staff if they need to leave bedside As available Patient and Family Educated on Fall Prevention Program and strategies. 11:58 Patient has been NPO before screening. The patient is alert, able to follow commands. em The patient exhibits slurred or garbled speech. The patient is not exhibiting difficulty speaking. The patient does not exhibit difficulty understanding words. The patient is able to swallow own secretions with no drooling or need for suction. Patient tolerated one teaspoon of water. No drooling, immediate coughing, gurgling, or clearing of the throat was noted. The patient did not tolerate 90mL of water. Drooling, immediate coughing, gurgling, or clearing of the throat was noted. Bedside swallow screening discontinued. Patient kept NPO until cleared by Speech Therapy or Physician. The patient failed the bedside swallow screening. The patient will be kept NPO until cleared by Speech Therapy or Physician. Provider notified of bedside swallow screening results: Matt Blackburn MD. Assessment: 11:32 Reassessment: CODE STROKE CALLED, PT TO CT VIA WHEELCHAIR WITH ANASTASIA CM. hb 11:41 Reassessment: Pt from CT, Dr. Blackburn at bedside to evaluate patient. hb 11:45 Reassessment: BGL 93. hb 11:45 Reassessment: 20g LAC, labs collected and sent to lab with purple stroke sticker, hb outside lab notified. 11:45 VAN Scoring: Arm Drift: Minor drift Visual Disturbance: No visual disturbance noted. em Aphasia: No aphasia noted. Neglect: No neglect noted. 11:45 General: Appears in no apparent distress. comfortable, Behavior is calm, cooperative. em Pain: Denies pain. Neuro: Level of Consciousness is awake, alert, obeys commands, Oriented to person, place, time, situation, Appropriate for age Hobbing Press Operator are weak on left Weakness in left arm(s) Speech is slurred, Facial symmetry appears normal, paresthesias in right cheek and right arm. Cardiovascular: Capillary refill < 3 seconds Patient's skin is warm and dry. Respiratory: Airway is patent Respiratory effort is even, unlabored, Respiratory pattern is regular, symmetrical. GI: Patient currently denies nausea, vomiting. Derm: Skin is intact, is thin, Skin is pink, warm \T\ dry. Musculoskeletal: Range of motion: intact in all extremities. 11:46 Reassessment: EKG completed. hb 11:47 T-PA (Activase) Screening: Contraindications: Other: Pt not a candidate for TPA, takes hb Xarelto Is the patient on Aspirin, Heparin, or Warfarin:. 11:47 Reassessment: Pt takes Xarelto, decision made by Dr. Blackburn to not give TPA. hb 11:58 Patient has been NPO before screening. The patient is alert, and able to follow em commands. The patient exhibits slurred or garbled speech. Provider notified of the indication for Speech Therapy consult. The patient is not exhibiting difficulty speaking. The patient does not exhibit difficulty understanding words. The patient is able to swallow own secretions with no drooling or need for suction. Patient tolerated one teaspoon of water. No drooling, immediate coughing, gurgling, or clearing of the throat was noted. The patient did not tolerate 90mL of water. Drooling, immediate coughing, gurgling, or clearing of the throat was noted. Bedside swallow screening discontinued. Patient kept NPO until cleared by Speech Therapy or Physician. The patient failed the bedside swallow screening. The patient will be kept NPO until cleared by Speech Therapy or Physician. Provider notified of bedside swallow screening results: Matt Blackburn MD. Vital Signs: 11:51 BP 190 / 65; Pulse 64; Resp 17; Temp 97.8; Pulse Ox 99% on R/A; Pain 0/10; hb NIH Stroke Scale Scores: 11:45 NIHSS Score: 3 em 11:54 NIHSS Score: 2 [place] ED Course: 11:32 Patient arrived in ED. mr 11:32 Casa Morton MD is Private Physician. mr 11:33 Matt Blackburn MD is Attending Physician. [place]udley 11:37 Triage completed. aj1 11:38 Pernell Pathak, RN is Primary Nurse. em 11:39 Arm band placed on. aj1 11:44 CT Stroke Brain w/o Contrast In Process Unspecified. EDMS 11:45 Inserted saline lock: 20 gauge in left antecubital area, using aseptic technique. hb ,using aseptic technique. by Pernell CM Blood collected. 11:59 Stroke CXR 1 View In Process Unspecified. EDMS 11:59 Patient has correct armband on for positive identification. Placed in gown. Bed in low hb position. Call light in reach. 12:39 CT completed. Patient tolerated procedure well. Patient moved back from CT. bq 12:43 CT Head Angio In Process Unspecified. EDMS 14:08 No provider procedures requiring assistance completed. Patient transferred, IV remains em in place. Administered Medications: 11:52 Drug: NS 0.9% 1000 ml Route: IV; Rate: 1 bolus; Site: left antecubital; em 13:01 Follow up: IV Status: Completed infusion; IV Intake: 1000ml em 11:52 Drug: foLIC Acid 1 mg Route: IVPB; Site: left antecubital; em 13:01 Follow up: Response: No adverse reaction; IV Status: Completed infusion em Point of Care Testing: Blood Glucose: 11:41 Blood Glucose: 93 mg/dL; em Ranges: Intake: 13:01 IV: 1000ml; Total: 1000ml. em Outcome: 12:00 ER care complete, transfer ordered by MD. buckner 14:08 [place] by [place] [facility] [facility] [place]. em X-rays sent w/ patient. 14:08 Condition: good 14:08 Instructed on the need for transfer, Demonstrated understanding of instructions. 14:09 Patient left the ED. hb NIH Stroke Scale - NIH Stroke Score Date: 05/14/2019 Time: 11:45 Total Score = 3 1a. Level of Consciousness (LOC) - 0(Alert) 1b. Level of Consciousness (LOC) (Year \T\ Age) - 0(Both) 1c. LOC Commands (Open \T\ Closes Eyes/Funeral Home Location Manager) - 0(Both) 2. Best Gaze (Lateral Gaze Paresis) - 0(Normal) 3. Visual Field Loss - 0(No visual loss) 4. Facial Palsy - 0(Normal) 5a. Left Arm: Motor (10-second hold) - 0(No drift) 5b. Right Arm: Motor (10-second hold) - 1(Drift) 6a. Left Leg: Motor (5-second hold - always test supine) - 0(No drift) 6b. Right Leg: Motor (5-second hold - always test supine) - 0(No drift) 7. Limb Ataxia (finger/nose \T\ heel/larsen - test with eyes open) - 0(Absent) 8. Sensory Loss (pinprick arms/legs/face) - 1(Mild to moderate loss) 9. Best Language: Aphasia (description/naming/reading) - 0(No aphasia) 10. Dysarthria (speech clarity - read or repeat words) - 1(Mild to Moderate) 11. Extinction and Inattention (visual/tactile/auditory/spatial/personal) - 0(No abnormality) Initials: em NIH Stroke Scale - NIH Stroke Score Date: 05/14/2019 Time: 11:54 Total Score = 2 1a. Level of Consciousness (LOC) - 0(Alert) 1b. Level of Consciousness (LOC) (Year \T\ Age) - 0(Both) 1c. LOC Commands (Open \T\ Closes Eyes/Funeral Home Location Manager) - 0(Both) 2. Best Gaze (Lateral Gaze Paresis) - 0(Normal) 3. Visual Field Loss - 0(No visual loss) 4. Facial Palsy - 0(Normal) 5a. Left Arm: Motor (10-second hold) - 0(No drift) 5b. Right Arm: Motor (10-second hold) - 1(Drift) 6a. Left Leg: Motor (5-second hold - always test supine) - 0(No drift) 6b. Right Leg: Motor (5-second hold - always test supine) - 0(No drift) 7. Limb Ataxia (finger/nose \T\ heel/larsen - test with eyes open) - 0(Absent) 8. Sensory Loss (pinprick arms/legs/face) - 1(Mild to moderate loss) 9. Best Language: Aphasia (description/naming/reading) - 0(No aphasia) 10. Dysarthria (speech clarity - read or repeat words) - 0(Normal) 11. Extinction and Inattention (visual/tactile/auditory/spatial/personal) - 0(No abnormality) Initials: [place] Signatures: Dispatcher [employer] Ashwini Sprague, RN RN aj1 Matt Blackburn MD MD cha Rivera, Noa mr Bharati Iqbal Edgar, RN RN em Baxter, Heather, RN RN hb Corrections: (The following items were deleted from the chart) 12:01 11:45 Reassessment: 22g LAC, labs collected and sent to lab with purple stroke hb sticker, outside lab notified. hb
[2019-05-14 12:02] LABS: Absolute Lymphocytes (CBC) 2.1 K/uL (0.7-4.9); Basophils % 0.8 % (0-1.3); Lymphocytes % 19.5 % (15.3-44.8); MPV 9.2 fL (7.6-11.3); RBC Red Blood Cell Count 3.71 M/uL (3.86-4.86)
[2019-05-14 12:06] LABS: Protime INR 1.14
[2019-05-14 12:15] LABS: Potassium 4.6 mmol/L (3.5-5.1)
--- NOTE | 2019-05-14 12:48 | RAD REPORT ---
EXAM DESCRIPTION: RAD - Chest Single View - 05/14/2019 11:57 am CLINICAL HISTORY: DYSPNEA COMPARISON: Portable March 2019 TECHNIQUE: AP portable chest image was obtained 05/14/2019 11:57 am . FINDINGS: No focal mass or consolidation. Interstitial pattern is similar to the comparison study. H eart size is upper normal and stable. No significant failure or volume overload seen. No measurable p leural effusion and no pneumothorax. No acute bony abnormality seen. No acute aortic findings suspect ed. IMPRESSION: Mild chronic interstitial lung pattern not substantially different from comparison. Chronic pattern can mask interstitial edema and infiltrate.
--- NOTE | 2019-05-14 13:02 | RAD REPORT ---
EXAM DESCRIPTION: CT - Head angio - 05/14/2019 12:40 pm CLINICAL HISTORY: TIA;Numbness TECHNIQUE: During dynamic enhancement using nonionic IV contrast, axial 1 millimeter thick images of the head were obtained. Sagittal and axial reconstruction images were generated using MIP technique and reviewed. All CT scans are performed using dose optimization technique as appropriate and may include automated exposure control or mA/KV adjustment according to patient size. COMPARISON: CT head same date, CT head April 12, MRA brain March 2019 FINDINGS: The patient has known 8 millimeter basilar tip aneurysm again noted. Aneurysm extends sup erior to the posterior cerebral artery origins. CT imaging showed no evidence for aneurysm rupture or leakage. No other aneurysm seen. No vascular malformation otherwise noted. The anterior, middle and posterior cerebral artery distributions show no stenosis, occlusion or significant finding. Basilar a rtery is tortuous. No vasculitis findings. Major venous sinuses are patent. IMPRESSION: Basilar tip 8 millimeter aneurysm unchanged back to March 2019. No significant vascular finding otherwise noted.
[2019-05-14 14:49] VITALS: BP 190/65; TEMP 97.8; O2SAT 99
--- NOTE | 2019-05-15 05:27 | EKG ---
Test Date: 2019-05-14 Test Time: 11:48:42 Echo Vascular Tech: MEMO MEASUREMENT RESULTS: Intervals: Rate: 65 UT: 128 QRSD: 116 QT: 424 QTc: 440 [place]: P: 72 UT: 128 QRS: -42 T: -3 INTERPRETIVE STATEMENTS: Normal sinus rhythm with sinus arrhythmia Left axis deviation Right bundle branch block Abnormal ECG Compared to ECG 03/21/2019 20:04:12 no significant change from previous ECG Electronically Signed On 05-15-19 05:26:29 POWER PLANT TECHNICIAN by Abhijit Joseph
== END 2019-05-14 14:09 | disposition short-term general hospital (02) ==
LOC: ER 11:31
DX: I63.9 Cerebral infarction, unspecified (principal); I10 Essential (primary) hypertension; R29.703 NIHSS score 3; N19 Unspecified kidney failure; D64.9 Anemia, unspecified; E03.9 Hypothyroidism, unspecified; I48.91 Unspecified atrial fibrillation; Z79.01 Long term (current) use of anticoagulants; Z88.1 Allergy status to other antibiotic agents; Z88.5 Allergy status to narcotic agent; Z88.6 Allergy status to analgesic agent; Z88.8 Allergy status to other drugs, medicaments and biological substances; Z91.048 Other nonmedicinal substance allergy status
CPT/HCPCS: 96365; 93005; 85025; 80048; 36415; 85610; 82947; 85730; 70496; 70450; 71045; 99285; Q9967; J7030

== ENCOUNTER 2019-05-29 12:24 | Inpatient (IN) | payer OTHER ==
--- NOTE | 2019-05-29 15:32 | R.PREADM ---
SCREENING DATE AND TIME 05/29/2019 13:12 (MOTION PICTURE DIRECTOR) ANTICIPATED REHAB ADMISSION DATE 05/31/2019 REFERRING FACILITY [facility] REFERRAL DATE AND TIME 05/29/2019 13:12 (MOTION PICTURE DIRECTOR) ACUTE ADMIT DATE 05/14/2019 Previous Rehabilitation(s): No. 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 Juanjo Mccall M.D. MR# [id number] [facility] [id number] NAME BHARATI BRAVO AD[address]ESS [id number] [facility] [place]IP [address] DATE OF 1940 AGE 79 SSN# [id number] GENDER female MARITAL STATUS RACE white ADMIT FROM 02 - [facility] PRE-HOSPITAL LIVING SETTING 01 - Home (private home/apt. board/care, assisted living, [place] [facility], transitional living) HOME TYPE AND DETAILS Type of home: single family house # of steps within the residence: 0 # of levels in the residence: 1 # of steps to enter the residence: 0 PRE-HOSPITAL LIVING WITH Family/Relatives FAMILY SUPPORT Yes PRIMARY FAMILY CONTACT NAME WILMER GARCIA PRIMARY FAMILY CONTACT PHONE PHONE PRIMARY FAMILY CONTACT ON ADM.? no IS PRIMARY FAMILY CONTACT AUTH. REP.? no 1ST EMERGENCY CONTACT WILMER GARCIA 1ST CONTACT PHONE PHONE 1ST CONTACT ON ADM. no IS 1ST CONTACT AUTH. REP.? no PHONE 2ND CONTACT ON ADM.? no PATIENT EMPLOYMENT STATUS Retired (for age) PATIENT EMPLOYER No Employer PAYOR INFORMATION: 1ST PAYOR NAME [employer] MED[employer]ARE 1ST PAYOR PHONE 1ST PAYOR CONTACT Kenney Wells 1ST PAYOR INJURY/ILLNESS DUE TO ACCIDENT? No ANOTHER CONSTITUTION PARTY RESPONSIBLE? No PRIMARY REHAB/ACUTE DIAGNOSIS: LEFT MCA INFARCT ONSET DATE 05/14/2019 REHAB IMPAIRMENT CATEGORY (ANTON): 01 Stroke (STR) MEETS 60% rule AFFECTED EXTREMITIES: RLE, and RUE PRIMARY DIAGNOSIS-RELATED SURGERIES: No surgeries related to the primary diagnosis were performed. COMORBID REHAB/ACUTE DIAGNOSES: - N/A COPD DM LLE DVT GERD Gout Hyperlipidemia HTN Hypothyroidism CKD STAGE 4 Anemia INTERVENTIONS: - COPD 02 sats Medications Nebulizers Oxygen Resp. therapy X-rays - GERD Altered diet Elevation of head of bed Medications Nausea/vomiting Nighttime food/fluid restrictions Nutrition RISK FOR COMPLICATIONS: - COPD Acute Resp failure Pneumonia Resp. Arrest - GERD Alteration in sleep Aspiration Dehydration Malnutrition Pain SUMMARY OF ACUTE HOSPITALIZATION: Pt. is a 79 yo Right-handed white female. On 05/14/2019 Pt. presented to [facility] with sudden onset of right-side weakness . On 05/14/2019 she was admitted to [facility] with diagnosis LEFT MCA INFARCT. Her impairment category is Stroke 01 - Right Body (Left Brain) (01.2). Pre-morbidly, Pt. was independent/mod-I in Locomotion, Safety Awareness, Balance, Social Cognition, T ransfers Control, Sphincter Control, Self-Care, Communication, and Endurance; and she had good Locomo tion, Safety Awareness, Balance, Social Cognition, Transfers Control, Self-Care, Communication, Sphin cter Control, and Endurance. Currently, she has deficits of Locomotion, Safety Awareness, Balance, Transfers Control, Self-Care, a nd Endurance. Pt. is now referred to [facility] for acute in-patient rehabilitation in order to maximize patient's functional independence in activities of daily living, strength, ROM, and mobi lity. Patient has realistic goal of being discharged at assistance level 6-Florentino to reside at Home with Fam sasha/Relatives. Bharati Bravo is a 79 year old female that lives in a single ayde house with her . She was independent with ADLs and IADLs and ambulatory without assistive device. On 05/14/2019, patient right sided weakness and numbness and was admitted to [facility] and treated. She is now medically stable but in need of 24-hour nursing, doctor supervision and oversite while receivi ng active and ongoing intensive (PT, expected to participate in 3hours of therapy a day/15 hours per week and receive care with an intensive interdisciplinary approach. PAST MEDICAL HISTORY Anemia CKD STAGE 4 COPD DM GERD Gout HTN Hyperlipidemia Hypothyroidism LLE DVT MEDICATION ALLERGIES: No Known Drug Allergies (NKDA) ENVIRONMENTAL ALLERGIES: None Known - Substance Allergies None Known - Other Allergies None Known CODE STATUS: Full code WEIGHT/HEIGHT/BMI: WEIGHT 185 lbs HEIGHT 5' 6" BMI 29.9 DIET: - Diet Type Regular - Diet - Solid Texture Regular - Diet - Liquid Texture Regular - Tube Feed N/A REVIEW OF SYSTEMS: - Gen Alert and awake Lying in bed No apparent distress Oriented to: person, time, and place - Vital Signs Temperature: 98 F SBP/DBP: 118/52 Pulse: 68 Resp: 18 Vital signs stable, afebrile - CVS RRR VITAL SIGNS Temperature: 98 F SBP/DBP: 118/52 Pulse: 68 Resp: 18 Vital signs stable, afebrile MEDICATIONS/TREATMENT: Other- See attached MAR (Medication Administration Record). CURRENT SPHINCTER CONTROL: Pre-hospital bladder status: continent # of bladder accidents in the last 7 days prior to screenin Pre-hospital bowel status: continent # of bowel accidents in the last 7 days prior to screenin Last Bowel Movement Date: CURRENT LOCOMOTION STATUS: distance walked 270 feet DETAILED CURRENT FUNCTIONAL STATUS: - Bladder accident frequency: Ind - No accidents in the past 7 days - Bowel accident frequency: Ind - No accidents in the past 7 days - Walking score based on distance walked: 0(N/A) score based on distance walked: 3(>=150ft) - Wheelchair score based on distance traveled: 0(N/A) QI SCORES: - Self-Care A. Eating 05-Setup or clean-up assistance B. Oral hygiene 05-Setup or clean-up assistance C. Toileting hygiene 03-Partial/moderate assistance E. Shower/bathe self 03-Partial/moderate assistance F. Upper body dressing 04-Supervision or touching assistance G. Lower body dressing 03-Partial/moderate assistance H. Putting on/taking off footwear 03-Partial/moderate assistance - Mobility A. Roll left and right 04-Supervision or touching assistance B. Sit to lying 04-Supervision or touching assistance C. Lying to sitting on side of bed 04-Supervision or touching assistance D. Sit to stand 04-Supervision or touching assistance E. Chair/[id number] transfer 03-Partial/moderate assistance F. Toilet transfer 03-Partial/moderate assistance G. Car transfer 88-Not attempted due to medical condition or safety concerns I. Walk 10 feet 04-Supervision or touching assistance J. Walk 50 feet with two turns 88-Not attempted due to medical condition or safety concerns K. Walk 150 feet 04-Supervision or touching assistance L. Walking 10 feet on uneven surfaces 88-Not attempted due to medical condition or safety concerns M. 1 step (curb) 88-Not attempted due to medical condition or safety concerns N. 4 steps 88-Not attempted due to medical condition or safety concerns O. 12 steps 88-Not attempted due to medical condition or safety concerns P. Picking up object 88-Not attempted due to medical condition or safety concerns R. Wheel 50 feet with two turns 88-Not attempted due to medical condition or safety concerns S. Wheel 150 feet 88-Not attempted due to medical condition or safety concerns - Bladder and Bowel Bladder continence 0-Always continent Bowel continence 0-Always continent - Endurance Fair - Balance Fair - Safety Awareness Fair CURRENT FUNC. DEFICITS: Self-Care, Mobility, Endurance, Balance, and Safety Awareness CURRENT / PREVIOUS ASSISTIVE DEVICES: 3-in-1 Commode BSC [facility] Bed Oxygen Rolling Walker Shower Chair Tub Bench Wheelchair CURRENT USE ASSISTIVE DEVICES: SCDs HISTORY OF FALLS. HAS THE PATIENT HAD TWO OR MORE FALLS IN THE PAST YEAR OR ANY FALL WITH INJURY IN T HE PAST YEAR?: No PRIOR SURGERY. DID THE PATIENT HAVE MAJOR SURGERY DURING THE 100 DAYS PRIOR TO ADMISSION?: No THERAPY NOTES FROM ACUTE CARE: Attached. SPECIAL NEEDS: - Safety Concerns Skin breakdown precautions needed due to skin breakdown risk PRECAUTIONS: - Weight Bearing Precaution WBAT right LE PATIENT NEEDS ACTIVE AND ONGOING THERAPEUTIC INTERVENTION OF MULTIPLE THERAPY DISCIPLINES, INCLUDING: - Occupational Therapy Cognitive Retraining. Visual Perceptual Training. - Dietary and Nutrition Adequate Nutrition. Nutritional Education. Nutritional Supplements. - Speech Therapy Cognitive Training. Expressive Language Skills. Memory Strategies. Receptive Language Skills. Speech Intelligibility Training. PATIENT NEEDS CLOSE MEDICAL SUPERVISION BY A REHABILITATION PHYSICIAN FOR: Coordination of Treatment Team DVT Management Medical and Co-Morbidity Management PATIENT REQUIRES 24X7 REHAB NURSING FOR MEDICAL AND FUNCTIONAL MGT. 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 MEANS's functional capaci ty or adaptations to impairments Has a viable Discharge Plan Medically appropriate; condition is sufficiently stable to participate in intensive rehab program DISCHARGE PLAN: - Estimated Length of Stay (days) 17. - Consensus on plan Discharge plan has been discussed with primary caregiver. Patient/Family is in agreement with the nisa n. Primary caregiver is in agreement with the plan. - Patient/Family Goals Return home with assistance. - Planned Living Setting Upon Discharge Home, to live with Family/Relatives. Transitional Living. RECOMMENDED CARE LEVEL: IRF RECOMMENDATION DETAILS: Recommended Admission to Comprehensive Rehabilitation Program to Increase Functional [place] SCREENER'S COMPLETENESS CONFIRMATION: - Screening Confirmation The patient data collection on this preadmission screening form is finished PHYSICIANS REVIEW AND ADMISSION DETERMINATION Admit - Based on my review of the Pre-Admission Screening results, in my medical judgment and experie nce, I concur with the findings and recommend admission to [facility], as this patient requires an IRF level of care. SIGNATURE PANEL: Clinical Liaison - [electronically] signed by Renzo Doshi on 05/29/2019 at 13:48 (MOTION PICTURE DIRECTOR) Physician Reviewer - [electronically] signed by Dr. Juanjo Mccall M.D. on 05/29/2019 at 15:30 (MOTION PICTURE DIRECTOR )
--- OUTSIDE RECORDS SUMMARY | 2019-05-29 19:36 | XMS REPORT ---
:1940 [facility] Address [address] [place] [address] Care Team Providers Name Role Phone KARELY FLORES Unavailable Unavailable KHAI CARRASCO Unavailable Unavailable Problems This patient has no known problems. Allergies, Adverse Reactions, Alerts This patient has no known allergies or adverse reactions. Medications This patient has no known medications. Results Test Description Test Time Test Comments Text Results Atomic Results Result Comments POCT-GLUCOSE METER 2019-05-29 12:47:00 Test Item Value Reference Range Comments POC-GLUCOSE METER (BEAKER) 133 mg/dL 70-110 : TESTED AT [address] (test uzfk=7271) [place], [address]: Grout Pump Operator/Plastic Parts Fabricator UB=[id number] for TSEGGAI, TSIGHEREDA POCT-GLUCOSE [id number] 07:59:00 Test Item Value Reference Range Comments POC-GLUCOSE METER (BEAKER) 125 mg/dL 70-110 : TESTED AT [address] (test rgtz=1740) [facility], [address]: Grout Pump Operator/Plastic Parts Fabricator DK=[id number] for TSEGGAI, TSIGHEREDA POCT-GLUCOSE [id number] 21:06:00 Test Item Value Reference Range Comments POC-GLUCOSE METER (BEAKER) 192 mg/dL 70-110 : TESTED AT [address] (test iifa=6469) [facility], [address]: Grout Pump Operator/Plastic Parts Fabricator LQ=[id number] for MALIHA JULIAN POCT-GLUCOSE [id number] 17:33:00 Test Item Value Reference Range Comments POC-GLUCOSE METER (BEAKER) 124 mg/dL 70-110 : TESTED AT [address] (test hsnj=7629) [facility], [address]: Grout Pump Operator/Plastic Parts Fabricator LL=[id number] for TSEGGAI, TSIGHEREDA POCT-GLUCOSE [id number] 11:50:00 Test Item Value Reference Range Comments POC-GLUCOSE METER (BEAKER) 102 mg/dL 70-110 : TESTED AT [address] (test rsjk=0950) [facility], [address]: Grout Pump Operator/Plastic Parts Fabricator NA=[id number] for TSEGGAI, TSIGHEREDA POCT-GLUCOSE [id number] 07:44:00 Test Item Value Reference Range Comments POC-GLUCOSE METER (BEAKER) 96 mg/dL 70-110 : TESTED AT [address] (test gksw=6911) [facility], [address]: Grout Pump Operator/Plastic Parts Fabricator EF=[id number] for TSEGGAI, TSIGHEREDA POCT-GLUCOSE [id number] 22:28:00 Test Item Value Reference Range Comments POC-GLUCOSE METER (BEAKER) 201 mg/dL 70-110 : Notified RN/MD: TESTED AT (test hieg=2779) [address], [address]: Grout Pump Operator/Plastic Parts Fabricator RP=[id number] for LATHBRIDGE, SKYLER HEMOGLOBIN AND [id number] 11:01:00 Test Item Value Reference Range Comments HEMOGLOBIN (BEAKER) (test sihu=858) 9.3 GM/DL 11.2-15.7 HEMATOCRIT (BEAKER) (test upuw=007) 28.8 % 34.1-44.9 Grout Pump Operator ID - 6000POCT-GLUCOSE [id number] 23:42:00 Test Item Value Reference Range Comments POC-GLUCOSE METER (BEAKER) 158 mg/dL 70-110 : Notified RN/MD: TESTED AT (test wcpw=7531) [address], [address]: Grout Pump Operator/Plastic Parts Fabricator AR=[id number] for LATHBRIDGE, SKYLER POCT-GLUCOSE [id number] 12:06:00 Test Item Value Reference Range Comments POC-GLUCOSE METER (BEAKER) 157 mg/dL 70-110 : TESTED AT [address] (test rbxd=8180) [facility], [address]: Grout Pump Operator/Plastic Parts Fabricator DC=[id number] for TSEGGAI, TSIGHEREDA [id number] 06:57:00 Test Item Value Reference Range Comments MAGNESIUM (BEAKER) (test lpsv=942) 1.7 mg/dL 1.6-2.6 Grout Pump Operator ID - KEARA WBASIC METABOLIC [id number] 06:57:00 Test Item Value Reference Range Comments SODIUM (BEAKER) (test 141 meq/L 136-145 rqlv=951) POTASSIUM (BEAKER) (test 4.1 meq/L 3.5-5.1 sbxz=213) CHLORIDE (BEAKER) (test 110 meq/L 98-107 gdob=867) CO2 (BEAKER) (test 20 meq/L 22-29 rgdu=637) BLOOD UREA NITROGEN 32 mg/dL 7-21 (BEAKER) (test iohq=474) CREATININE (BEAKER) (test 1.23 mg/dL 0.57-1.25 urep=354) GLUCOSE RANDOM (BEAKER) 96 mg/dL 70-105 (test dxyu=683) CALCIUM (BEAKER) (test 9.7 mg/dL 8.4-10.2 tnbu=054) EGFR (BEAKER) (test 42 mL/min/1.73 sq m ESTIMATED GFR IS NOT enzm=8339) ACCURATE CREATININE CLEARANCE IN PREDICTING GLOMERULAR FILTRATION RATE. ESTIMATED GFR IS NOT APPLICABLE FOR DIALYSIS PATIENTS. Grout Pump Operator ID - KEARA WHEMOGLOBIN AND [id number] 05:42:00 Test Item Value Reference Range Comments HEMOGLOBIN (BEAKER) (test shsr=211) 8.3 GM/DL 11.2-15.7 HEMATOCRIT (BEAKER) (test anaz=728) 26.4 % 34.1-44.9 Grout Pump Operator ID - EmmettPOCT-GLUCOSE [id number] 22:26:00 Test Item Value Reference Range Comments POC-GLUCOSE METER (BEAKER) 137 mg/dL 70-110 : TESTED AT [address] (test oomo=4372) [facility], [address]: Grout Pump Operator/Plastic Parts Fabricator KJ=[id number] for MALLORY SRIVASTAVA RAD, CHEST, 1 VIEW, NON [id number] 21:41:00Reason for exam:->shortness of breath, coughShould this be performed at the bedside?->YesFINAL REPORT RAD, CHEST, 1 VIEW, NON DEPT INDICATION: shortness of breath, cough COMPARISON: None available FINDINGS: Portable frontal view of the chest. IMPRESSION: Lungs andpleura: Lungs are clear. No pleural effusion. No pneumothorax.Heart and mediastinum: Within normal limits. Atherosclerotic calcifications of the thoracic aorta.Additional findings: Osseous structures are unremarkable. Signed: Karely Davis Verified Date/Time: 21:41:23 Electronically signed by: KARELY DAVIS MD on 09:41 PMPOCT-GLUCOSE [id number] 16:37:00 Test Item Value Reference Range Comments POC-GLUCOSE METER (BEAKER) 217 mg/dL 70-110 : TESTED AT [address] (test tihz=4218) [facility], [facility]: Grout Pump Operator/Plastic Parts Fabricator CZ=[id number] for NITA PATE POCT-GLUCOSE [id number] 13:05:00 Test Item Value Reference Range Comments POC-GLUCOSE METER (BEAKER) 196 mg/dL 70-110 : TESTED AT [address] (test ygme=1514) [place] [address]: Grout Pump Operator/Plastic Parts Fabricator WI=[id number] for NITA PATE POCT-GLUCOSE [id number] 08:49:00 Test Item Value Reference Range Comments POC-GLUCOSE METER (BEAKER) 95 mg/dL 70-110 : TESTED AT [address] (test duxd=5552) [place] [address]: Grout Pump Operator/Plastic Parts Fabricator ZO=[id number] for PATENITA CARTAGENA HEMOGLOBIN AND [id number] 05:24:00 Test Item Value Reference Range Comments HEMOGLOBIN (BEAKER) (test spvt=233) 8.4 GM/DL 11.2-15.7 HEMATOCRIT (BEAKER) (test sovs=111) 27.0 % 34.1-44.9 Grout Pump Operator ID - 6000POCT-GLUCOSE [id number] 22:08:00 Test Item Value Reference Range Comments POC-GLUCOSE METER (BEAKER) 164 mg/dL 70-110 : TESTED AT [address] (test pqdw=0587) [place] [address]: Grout Pump Operator/Plastic Parts Fabricator DK=[id number] for MALLORY SRIVASTAVA POCT-GLUCOSE [id number] 12:57:00 Test Item Value Reference Range Comments POC-GLUCOSE METER (BEAKER) 156 mg/dL 70-110 : TESTED AT [address] (test whiy=6349) [place], [address]: Grout Pump Operator/Plastic Parts Fabricator ST=[id number] for NITA PATE POCT-GLUCOSE [id number] 08:38:00 Test Item Value Reference Range Comments POC-GLUCOSE METER (BEAKER) 102 mg/dL 70-110 : TESTED AT [facility] [address] (test fsln=8365) [facility], [address]: Grout Pump Operator/Plastic Parts Fabricator BO=[id number] for NITA PATE BASIC METABOLIC [id number] 06:30:00 Test Item Value Reference Range Comments SODIUM (BEAKER) (test 141 meq/L 136-145 qlec=725) POTASSIUM (BEAKER) (test 3.5 meq/L 3.5-5.1 ljyo=773) CHLORIDE (BEAKER) (test 114 meq/L 98-107 gmwt=759) CO2 (BEAKER) (test 19 meq/L 22-29 uyhg=105) BLOOD UREA NITROGEN 22 mg/dL 7-21 (BEAKER) (test agpx=991) CREATININE (BEAKER) (test 1.03 mg/dL 0.57-1.25 hlag=791) GLUCOSE RANDOM (BEAKER) 104 mg/dL 70-105 (test akug=231) CALCIUM (BEAKER) (test 9.3 mg/dL 8.4-10.2 shbv=172) EGFR (BEAKER) (test 52 mL/min/1.73 sq m ESTIMATED GFR IS NOT miux=3142) ACCURATE CREATININE CLEARANCE IN PREDICTING GLOMERULAR FILTRATION RATE. ESTIMATED GFR IS NOT APPLICABLE FOR DIALYSIS PATIENTS. Grout Pump Operator ID - GALAPCBC (HEMOGRAM ONLY)2019-05-24 05:51:00 Test Item Value Reference Range Comments WHITE BLOOD CELL COUNT (BEAKER) (test eevr=904) 11.1 K/ L 3.5-10.5 RED BLOOD CELL COUNT (BEAKER) (test zwbb=938) 2.67 M/ L 3.93-5.22 HEMOGLOBIN (BEAKER) (test rery=594) 7.8 GM/DL 11.2-15.7 HEMATOCRIT (BEAKER) (test nziw=878) 24.6 % 34.1-44.9 MEAN CORPUSCULAR VOLUME (BEAKER) (test vtkg=276) 92.1 fL 79.4-94.8 MEAN CORPUSCULAR HEMOGLOBIN (BEAKER) (test 29.2 pg 25.6-32.2 hwxt=737) MEAN CORPUSCULAR HEMOGLOBIN CONC (BEAKER) (test 31.7 GM/DL 32.2-35.5 azgh=723) RED CELL DISTRIBUTION WIDTH (BEAKER) (test 14.1 % 11.7-14.4 xgji=371) PLATELET COUNT (BEAKER) (test izle=590) 283 K/CU MM 150-450 MEAN PLATELET VOLUME (BEAKER) (test ahzy=527) 11.1 fL 9.4-12.3 NUCLEATED RED BLOOD CELLS (BEAKER) (test 0 /100 WBC 0-0 pikj=563) POCT-GLUCOSE [id number] 18:38:00 Test Item Value Reference Range Comments POC-GLUCOSE METER (BEAKER) 243 mg/dL 70-110 : Notified RN/MD: TESTED AT (test iehz=0241) [facility] [address] [facility], [address]: Grout Pump Operator/Plastic Parts Fabricator YN=[id number] for Keiry Mays BASIC METABOLIC [id number] 06:25:00 Test Item Value Reference Range Comments SODIUM (BEAKER) (test 139 meq/L 136-145 pybb=026) POTASSIUM (BEAKER) (test 3.9 meq/L 3.5-5.1 yvch=264) CHLORIDE (BEAKER) (test 114 meq/L 98-107 jkuo=617) CO2 (BEAKER) (test 19 meq/L 22-29 egvw=734) BLOOD UREA NITROGEN 29 mg/dL 7-21 (BEAKER) (test ynle=437) CREATININE (BEAKER) (test 1.18 mg/dL 0.57-1.25 vspk=891) GLUCOSE RANDOM (BEAKER) 124 mg/dL 70-105 (test ddaq=348) CALCIUM (BEAKER) (test 9.1 mg/dL 8.4-10.2 jlls=633) EGFR (BEAKER) (test 44 mL/min/1.73 sq m ESTIMATED GFR IS NOT yvhn=8675) ACCURATE CREATININE CLEARANCE IN PREDICTING GLOMERULAR FILTRATION RATE. ESTIMATED GFR IS NOT APPLICABLE FOR DIALYSIS PATIENTS. Grout Pump Operator ID - GALAPCBC (HEMOGRAM ONLY)2019-05-23 05:56:00 Test Item Value Reference Range Comments WHITE BLOOD CELL COUNT (BEAKER) (test czvb=467) 10.9 K/ L 3.5-10.5 RED BLOOD CELL COUNT (BEAKER) (test srou=807) 2.78 M/ L 3.93-5.22 HEMOGLOBIN (BEAKER) (test krmm=403) 7.9 GM/DL 11.2-15.7 HEMATOCRIT (BEAKER) (test nhio=197) 25.8 % 34.1-44.9 MEAN CORPUSCULAR VOLUME (BEAKER) (test axmi=277) 92.8 fL 79.4-94.8 MEAN CORPUSCULAR HEMOGLOBIN (BEAKER) (test 28.4 pg 25.6-32.2 ldlg=677) MEAN CORPUSCULAR HEMOGLOBIN CONC (BEAKER) (test 30.6 GM/DL 32.2-35.5 mcvd=987) RED CELL DISTRIBUTION WIDTH (BEAKER) (test 14.3 % 11.7-14.4 orjz=685) PLATELET COUNT (BEAKER) (test ylvb=405) 258 K/CU MM 150-450 MEAN PLATELET VOLUME (BEAKER) (test mtgl=999) 11.3 fL 9.4-12.3 NUCLEATED RED BLOOD CELLS (BEAKER) (test 0 /100 WBC 0-0 bnzl=727) POCT-GLUCOSE [id number] 00:29:00 Test Item Value Reference Range Comments POC-GLUCOSE METER (BEAKER) 126 mg/dL 70-110 : TESTED AT [facility] [address] [facility] (test hhis=0626) [facility], [address]: Grout Pump Operator/Plastic Parts Fabricator MP=[id number] for MASON GALARZA CBC W/PLT COUNT & AUTO [id number] 06:36:00 Test Item Value Reference Range Comments WHITE BLOOD CELL COUNT (BEAKER) (test cacr=968) 10.4 K/ L 3.5-10.5 RED BLOOD CELL COUNT (BEAKER) (test gjtg=838) 2.27 M/ L 3.93-5.22 HEMOGLOBIN (BEAKER) (test prvr=810) 6.8 GM/DL 11.2-15.7 HEMATOCRIT (BEAKER) (test vsfd=117) 21.3 % 34.1-44.9 MEAN CORPUSCULAR VOLUME (BEAKER) (test jkzz=409) 93.8 fL 79.4-94.8 MEAN CORPUSCULAR HEMOGLOBIN (BEAKER) (test 30.0 pg 25.6-32.2 gkyp=642) MEAN CORPUSCULAR HEMOGLOBIN CONC (BEAKER) (test 31.9 GM/DL 32.2-35.5 hbma=774) RED CELL DISTRIBUTION WIDTH (BEAKER) (test 14.4 % 11.7-14.4 khyh=360) PLATELET COUNT (BEAKER) (test dhfq=064) 197 K/CU MM 150-450 MEAN PLATELET VOLUME (BEAKER) (test vzry=807) 11.6 fL 9.4-12.3 NUCLEATED RED BLOOD CELLS (BEAKER) (test 0 /100 WBC 0-0 ekhl=322) NEUTROPHILS RELATIVE PERCENT (BEAKER) (test 71 % uksd=169) LYMPHOCYTES RELATIVE PERCENT (BEAKER) (test 13 % yufe=116) MONOCYTES RELATIVE PERCENT (BEAKER) (test 11 % mofy=575) EOSINOPHILS RELATIVE PERCENT (BEAKER) (test 4 % ryje=138) BASOPHILS RELATIVE PERCENT (BEAKER) (test 0 % fjms=094) NEUTROPHILS ABSOLUTE COUNT (BEAKER) (test 7.36 K/ L 1.56-6.13 stoc=243) LYMPHOCYTES ABSOLUTE COUNT (BEAKER) (test 1.31 K/ L 1.18-3.74 yawt=344) MONOCYTES ABSOLUTE COUNT (BEAKER) (test 1.13 K/ L 0.24-0.36 pedn=886) EOSINOPHILS ABSOLUTE COUNT (BEAKER) (test 0.44 K/ L 0.04-0.36 rcgv=015) BASOPHILS ABSOLUTE COUNT (BEAKER) (test 0.03 K/ L 0.01-0.08 pqqw=806) IMMATURE GRANULOCYTES-RELATIVE PERCENT (BEAKER) 1 % 0-1 (test oeuh=6345) POCT-GLUCOSE [id number] 06:11:00 Test Item Value Reference Range Comments POC-GLUCOSE METER (BEAKER) 111 mg/dL 70-110 : [address] (test clao=0925) [facility], [address]: Grout Pump Operator/Plastic Parts Fabricator DS=[id number] for RAFAEL ADORNO POCT-GLUCOSE [id number] 18:56:00 Test Item Value Reference Range Comments POC-GLUCOSE METER (BEAKER) 137 mg/dL 70-110 : Notified RN/MD: TESTED AT (test tjck=9697) [place] [address] [facility], [address]: Grout Pump Operator/Plastic Parts Fabricator XG=[id number] for DANDY HUNTER [id number] 13:58:00 Test Item Value Reference Range Comments POTASSIUM (BEAKER) (test ynwd=321) 3.9 meq/L 3.5-5.1 Grout Pump Operator ID - MALOU [id number] 13:58:00 Test Item Value Reference Range Comments MAGNESIUM (BEAKER) (test btxc=811) 1.8 mg/dL 1.6-2.6 Grout Pump Operator ID - MALOU FCBC (HEMOGRAM ONLY)2019-05-21 13:41:00 Test Item Value Reference Range Comments WHITE BLOOD CELL COUNT (BEAKER) (test lemi=663) 13.4 K/ L 3.5-10.5 RED BLOOD CELL COUNT (BEAKER) (test xuuj=686) 2.40 M/ L 3.93-5.22 HEMOGLOBIN (BEAKER) (test gifq=844) 7.2 GM/DL 11.2-15.7 HEMATOCRIT (BEAKER) (test gmjz=307) 22.3 % 34.1-44.9 MEAN CORPUSCULAR VOLUME (BEAKER) (test iqjm=236) 92.9 fL 79.4-94.8 MEAN CORPUSCULAR HEMOGLOBIN (BEAKER) (test 30.0 pg 25.6-32.2 wfuz=761) MEAN CORPUSCULAR HEMOGLOBIN CONC (BEAKER) (test 32.3 GM/DL 32.2-35.5 etuz=719) RED CELL DISTRIBUTION WIDTH (BEAKER) (test 14.6 % 11.7-14.4 kvns=237) PLATELET COUNT (BEAKER) (test dhsb=617) 189 K/CU MM 150-450 MEAN PLATELET VOLUME (BEAKER) (test pmqo=775) 11.2 fL 9.4-12.3 NUCLEATED RED BLOOD CELLS (BEAKER) (test 0 /100 WBC 0-0 ovsl=935) POCT-GLUCOSE [id number] 13:11:00 Test Item Value Reference Range Comments POC-GLUCOSE METER (BEAKER) 164 mg/dL 70-110 : Notified RN/MD: TESTED AT (test tlti=9611) [facility] [address] [facility], [address]: Grout Pump Operator/Plastic Parts Fabricator FY=[id number] for DANDY HUNTER URIC [id number] 10:43:00 Test Item Value Reference Range Comments URIC ACID (BEAKER) (test vqhp=200) 5.7 mg/dL 2.6-7.2 Grout Pump Operator ID - MALOU FBASIC METABOLIC [id number] 06:40:00 Test Item Value Reference Range Comments SODIUM (BEAKER) (test 139 meq/L 136-145 fauv=012) POTASSIUM (BEAKER) (test 3.7 meq/L 3.5-5.1 grtj=526) CHLORIDE (BEAKER) (test 114 meq/L 98-107 fgmo=544) CO2 (BEAKER) (test 20 meq/L 22-29 ggnv=949) BLOOD UREA NITROGEN 28 mg/dL 7-21 (BEAKER) (test jgsu=299) CREATININE (BEAKER) (test 1.19 mg/dL 0.57-1.25 ldhn=936) GLUCOSE RANDOM (BEAKER) 143 mg/dL 70-105 (test zhcd=619) CALCIUM (BEAKER) (test 8.6 mg/dL 8.4-10.2 ctks=387) EGFR (BEAKER) (test 44 mL/min/1.73 sq m ESTIMATED GFR IS NOT ifcr=5521) ACCURATE CREATININE CLEARANCE IN PREDICTING GLOMERULAR FILTRATION RATE. ESTIMATED GFR IS NOT APPLICABLE FOR DIALYSIS PATIENTS. Grout Pump Operator ID - KEARA WPOCT-GLUCOSE [id number] 06:37:00 Test Item Value Reference Range Comments POC-GLUCOSE METER (BEAKER) 156 mg/dL 70-110 : TESTED AT [facility] [address] [facility] (test fuup=7141) [facility], [address]: Grout Pump Operator/Plastic Parts Fabricator TX=[id number] for RAJ SALAS CBC (HEMOGRAM ONLY)2019-05-21 06:20:00 Test Item Value Reference Range Comments WHITE BLOOD CELL COUNT (BEAKER) (test cglt=554) 13.5 K/ L 3.5-10.5 RED BLOOD CELL COUNT (BEAKER) (test wgfv=507) 2.41 M/ L 3.93-5.22 HEMOGLOBIN (BEAKER) (test tcgb=639) 7.1 GM/DL 11.2-15.7 HEMATOCRIT (BEAKER) (test libp=592) 22.4 % 34.1-44.9 MEAN CORPUSCULAR VOLUME (BEAKER) (test pibt=705) 92.9 fL 79.4-94.8 MEAN CORPUSCULAR HEMOGLOBIN (BEAKER) (test 29.5 pg 25.6-32.2 udji=316) MEAN CORPUSCULAR HEMOGLOBIN CONC (BEAKER) (test 31.7 GM/DL 32.2-35.5 pvzv=444) RED CELL DISTRIBUTION WIDTH (BEAKER) (test 14.5 % 11.7-14.4 ufgs=148) PLATELET COUNT (BEAKER) (test xokp=402) 201 K/CU MM 150-450 MEAN PLATELET VOLUME (BEAKER) (test mhyh=442) 11.4 fL 9.4-12.3 NUCLEATED RED BLOOD CELLS (BEAKER) (test 0 /100 WBC 0-0 faaa=905) CBC (HEMOGRAM ONLY)2019-05-21 00:54:00 Test Item Value Reference Range Comments WHITE BLOOD CELL COUNT (BEAKER) (test jfxp=184) 12.6 K/ L 3.5-10.5 RED BLOOD CELL COUNT (BEAKER) (test mkro=198) 2.37 M/ L 3.93-5.22 HEMOGLOBIN (BEAKER) (test baci=644) 7.1 GM/DL 11.2-15.7 HEMATOCRIT (BEAKER) (test flvm=349) 22.3 % 34.1-44.9 MEAN CORPUSCULAR VOLUME (BEAKER) (test qroj=971) 94.1 fL 79.4-94.8 MEAN CORPUSCULAR HEMOGLOBIN (BEAKER) (test 30.0 pg 25.6-32.2 rynt=217) MEAN CORPUSCULAR HEMOGLOBIN CONC (BEAKER) (test 31.8 GM/DL 32.2-35.5 sdjo=064) RED CELL DISTRIBUTION WIDTH (BEAKER) (test 14.6 % 11.7-14.4 nqcl=028) PLATELET COUNT (BEAKER) (test urcd=635) 171 K/CU MM 150-450 MEAN PLATELET VOLUME (BEAKER) (test ijua=140) 11.4 fL 9.4-12.3 NUCLEATED RED BLOOD CELLS (BEAKER) (test 0 /100 WBC 0-0 elyo=238) POCT-GLUCOSE [id number] 00:42:00 Test Item Value Reference Range Comments POC-GLUCOSE METER (BEAKER) 155 mg/dL 70-110 : TESTED AT [facility] [address] (test jdsj=8508) [place], [address]: Grout Pump Operator/Plastic Parts Fabricator YU=[id number] for RAJ SALAS [id number] 19:49:00 Test Item Value Reference Range Comments FERRITIN (BEAKER) (test uqsh=876) 29 ng/mL 5-275 Grout Pump Operator ID - TERRI [id number] 18:51:00 Test Item Value Reference Range Comments TRANSFERRIN (BEAKER) (test kkqd=237) 211 mg/dL 174-382 Grout Pump Operator ID - TERRI CARL, TIBC, % SAT. (WITHOUT FERRITIN)2019-05-20 18:51:00 Test Item Value Reference Range Comments IRON (BEAKER) (test wyit=762) 14.0 ug/dL 40.0-160.0 TOTAL IRON BINDING CAPACITY (BEAKER) (test 264 ug/dL 250-450 ybfb=825) IRON % SATURATION (2) (BEAKER) (test utsd=6088) 5 % 20-55 Grout Pump Operator ID - TERRI MRAD, ANKLE, 1 VIEW, [id number] 18:09:00Reason for exam:- >left ankle painShould this be performed at the bedside?->YesFINAL REPORT TECHNIQUE: Two views of left ankle HISTORY: left ankle pain. COMPARISON: None. IMPRESSION:No acute displaced fracture or dislocation. Joint spaces are within normal limits.Minimal Achilles enthesopathy. Large plantar calcaneal spur and enthesopathy. Signed: Steven Lyman MDRepcross[facility] regional [facility] Verified Date/Time: 05/20/2019 18:09:20 Reading Location: [facility] [id number] Consult Reading Room Electronically signed by: STEVEN LYMAN DO on 2019 06:09 PMCBC (HEMOGRAM ONLY)2019-05-20 17:58:00 Test Item Value Reference Range Comments WHITE BLOOD CELL COUNT (BEAKER) (test bszu=033) 14.2 K/ L 3.5-10.5 RED BLOOD CELL COUNT (BEAKER) (test odea=074) 2.62 M/ L 3.93-5.22 HEMOGLOBIN (BEAKER) (test grqs=569) 7.8 GM/DL 11.2-15.7 HEMATOCRIT (BEAKER) (test dlof=091) 24.0 % 34.1-44.9 MEAN CORPUSCULAR VOLUME (BEAKER) (test bpuz=479) 91.6 fL 79.4-94.8 MEAN CORPUSCULAR HEMOGLOBIN (BEAKER) (test 29.8 pg 25.6-32.2 gwka=744) MEAN CORPUSCULAR HEMOGLOBIN CONC (BEAKER) (test 32.5 GM/DL 32.2-35.5 lihd=860) RED CELL DISTRIBUTION WIDTH (BEAKER) (test 14.6 % 11.7-14.4 kxsm=570) PLATELET COUNT (BEAKER) (test mvlb=786) 196 K/CU MM 150-450 MEAN PLATELET VOLUME (BEAKER) (test grvo=083) 11.4 fL 9.4-12.3 NUCLEATED RED BLOOD CELLS (BEAKER) (test 0 /100 WBC 0-0 uxsq=704) [id number] 05:29:00 Test Item Value Reference Range Comments MAGNESIUM (BEAKER) (test 1.9 mg/dL 1.6-2.6 Specimen slightly hemolyzed qpkk=331) [employer] Operator ID - TERRI [id number] 05:29:00 Test Item Value Reference Range Comments PHOSPHORUS (BEAKER) (test 3.3 mg/dL 2.3-4.7 Specimen slightly hemolyzed qcfj=779) Grout [employer] Operator ID - TERRI MBASIC METABOLIC [id number] 05:29:00 Test Item Value Reference Range Comments SODIUM (BEAKER) (test 139 meq/L 136-145 zycp=642) POTASSIUM (BEAKER) (test 3.8 meq/L 3.5-5.1 Specimen slightly xoqe=316) hemolyzed CHLORIDE (BEAKER) (test 115 meq/L 98-107 xcli=338) CO2 (BEAKER) (test 18 meq/L 22-29 tebm=440) BLOOD UREA NITROGEN 26 mg/dL 7-21 (BEAKER) (test rvpl=964) CREATININE (BEAKER) (test 1.04 mg/dL 0.57-1.25 Specimen slightly mtni=694) hemolyzed GLUCOSE RANDOM (BEAKER) 96 mg/dL 70-105 (test lplr=223) CALCIUM (BEAKER) (test 8.6 mg/dL 8.4-10.2 ofyd=158) EGFR (BEAKER) (test 51 mL/min/1.73 sq m ESTIMATED GFR IS NOT jkqo=6694) ACCURATE CREATININE CLEARANCE IN PREDICTING GLOMERULAR FILTRATION RATE. ESTIMATED GFR IS NOT APPLICABLE FOR DIALYSIS PATIENTS. Grout Pump Operator ID - TERRI [facility] [place] (HEMOGRAM ONLY)2019-05-20 04:51:00 Test Item Value Reference Range Comments WHITE BLOOD CELL COUNT (BEAKER) (test gvty=076) 13.5 K/ L 3.5-10.5 RED BLOOD CELL COUNT (BEAKER) (test abjl=431) 2.72 M/ L 3.93-5.22 HEMOGLOBIN (BEAKER) (test ctbo=690) 7.8 GM/DL 11.2-15.7 HEMATOCRIT (BEAKER) (test jtjo=658) 25.3 % 34.1-44.9 MEAN CORPUSCULAR VOLUME (BEAKER) (test tywg=448) 93.0 fL 79.4-94.8 MEAN CORPUSCULAR HEMOGLOBIN (BEAKER) (test 28.7 pg 25.6-32.2 lvdz=137) MEAN CORPUSCULAR HEMOGLOBIN CONC (BEAKER) (test 30.8 GM/DL 32.2-35.5 bnxa=610) RED CELL DISTRIBUTION WIDTH (BEAKER) (test 14.8 % 11.7-14.4 yusb=175) PLATELET COUNT (BEAKER) (test ilgf=437) 181 K/CU MM 150-450 MEAN PLATELET VOLUME (BEAKER) (test ojbr=402) 11.5 fL 9.4-12.3 NUCLEATED RED BLOOD CELLS (BEAKER) (test 0 /100 WBC 0-0 gssl=947) CBC (HEMOGRAM ONLY)2019-05-20 00:36:00 Test Item Value Reference Range Comments WHITE BLOOD CELL COUNT (BEAKER) (test lnen=127) 13.3 K/ L 3.5-10.5 RED BLOOD CELL COUNT (BEAKER) (test ybbg=555) 2.72 M/ L 3.93-5.22 HEMOGLOBIN (BEAKER) (test xcue=177) 8.1 GM/DL 11.2-15.7 HEMATOCRIT (BEAKER) (test aqxt=223) 25.3 % 34.1-44.9 MEAN CORPUSCULAR VOLUME (BEAKER) (test ksps=922) 93.0 fL 79.4-94.8 MEAN CORPUSCULAR HEMOGLOBIN (BEAKER) (test 29.8 pg 25.6-32.2 tnvq=499) MEAN CORPUSCULAR HEMOGLOBIN CONC (BEAKER) (test 32.0 GM/DL 32.2-35.5 vxfi=705) RED CELL DISTRIBUTION WIDTH (BEAKER) (test 14.8 % 11.7-14.4 hdli=557) PLATELET COUNT (BEAKER) (test gbne=006) 193 K/CU MM 150-450 MEAN PLATELET VOLUME (BEAKER) (test zcxw=266) 11.6 fL 9.4-12.3 NUCLEATED RED BLOOD CELLS (BEAKER) (test 0 /100 WBC 0-0 twab=079) POCT-GLUCOSE [id number] 18:36:00 Test Item Value Reference Range Comments POC-GLUCOSE METER (BEAKER) 101 mg/dL 70-110 : TESTED AT [address] (test qdsw=2299) [place] [id number]: Grout Pump Operator/[employer] LA=[id number] for DANDY HUNTER [facility] (HEMOGRAM ONLY)2019-05-19 18:33:00 Test Item Value Reference Range Comments WHITE BLOOD CELL COUNT (BEAKER) (test qpdz=562) 12.7 K/ L 3.5-10.5 RED BLOOD CELL COUNT (BEAKER) (test mouy=852) 2.69 M/ L 3.93-5.22 HEMOGLOBIN (BEAKER) (test gqiv=410) 8.0 GM/DL 11.2-15.7 HEMATOCRIT (BEAKER) (test gyoz=375) 25.0 % 34.1-44.9 MEAN CORPUSCULAR VOLUME (BEAKER) (test fkej=285) 92.9 fL 79.4-94.8 MEAN CORPUSCULAR HEMOGLOBIN (BEAKER) (test 29.7 pg 25.6-32.2 lfoj=459) MEAN CORPUSCULAR HEMOGLOBIN CONC (BEAKER) (test 32.0 GM/DL 32.2-35.5 zsfh=762) RED CELL DISTRIBUTION WIDTH (BEAKER) (test 14.5 % 11.7-14.4 yhkh=584) PLATELET COUNT (BEAKER) (test bemd=488) 168 K/CU MM 150-450 MEAN PLATELET VOLUME (BEAKER) (test leri=530) 11.1 fL 9.4-12.3 NUCLEATED RED BLOOD CELLS (BEAKER) (test 0 /100 WBC 0-0 yqac=702) CBC (HEMOGRAM ONLY)2019-05-19 12:46:00 Test Item Value Reference Range Comments WHITE BLOOD CELL COUNT (BEAKER) (test ofcw=375) 14.2 K/ L 3.5-10.5 RED BLOOD CELL COUNT (BEAKER) (test ldtc=672) 2.36 M/ L 3.93-5.22 HEMOGLOBIN (BEAKER) (test eihl=176) 6.9 GM/DL 11.2-15.7 HEMATOCRIT (BEAKER) (test ddmo=244) 22.6 % 34.1-44.9 MEAN CORPUSCULAR VOLUME (BEAKER) (test fopy=449) 95.8 fL 79.4-94.8 MEAN CORPUSCULAR HEMOGLOBIN (BEAKER) (test 29.2 pg 25.6-32.2 hdak=835) MEAN CORPUSCULAR HEMOGLOBIN CONC (BEAKER) (test 30.5 GM/DL 32.2-35.5 hkey=220) RED CELL DISTRIBUTION WIDTH (BEAKER) (test 14.4 % 11.7-14.4 xyia=193) PLATELET COUNT (BEAKER) (test dhpb=408) 182 K/CU MM 150-450 MEAN PLATELET VOLUME (BEAKER) (test pnxk=047) 11.2 fL 9.4-12.3 NUCLEATED RED BLOOD CELLS (BEAKER) (test 0 /100 WBC 0-0 paea=225) POCT-GLUCOSE [id number] 12:30:00 Test Item Value Reference Range Comments POC-GLUCOSE METER (BEAKER) 130 mg/dL 70-110 : TESTED AT [facility] [address] (test raab=8721) [place], [address]: Grout Pump Operator/Plastic Parts Fabricator [id number] for DANDY HUNTER [id number] 08:02:00 Test Item Value Reference Range Comments PHOSPHORUS (BEAKER) (test dxfy=257) 2.5 mg/dL 2.3-4.7 Grout Pump Operator ID - TERRI [id number] 08:02:00 Test Item Value Reference Range Comments MAGNESIUM (BEAKER) (test qejj=386) 1.6 mg/dL 1.6-2.6 Grout Pump Operator ID - TERRI MBASIC METABOLIC [id number] 08:02:00 Test Item Value Reference Range Comments SODIUM (BEAKER) (test 140 meq/L 136-145 yxqz=418) POTASSIUM (BEAKER) (test 4.1 meq/L 3.5-5.1 njkh=475) CHLORIDE (BEAKER) (test 117 meq/L 98-107 npuo=479) CO2 (BEAKER) (test 18 meq/L 22-29 zhsg=571) BLOOD UREA NITROGEN 30 mg/dL 7-21 (BEAKER) (test stsr=769) CREATININE (BEAKER) (test 1.03 mg/dL 0.57-1.25 bucf=816) GLUCOSE RANDOM (BEAKER) 123 mg/dL 70-105 (test fhsp=588) CALCIUM (BEAKER) (test 8.4 mg/dL 8.4-10.2 geou=501) EGFR (BEAKER) (test 52 mL/min/1.73 sq m ESTIMATED GFR IS NOT kvxk=5378) ACCURATE CREATININE CLEARANCE IN PREDICTING GLOMERULAR FILTRATION RATE. ESTIMATED GFR IS NOT APPLICABLE FOR DIALYSIS PATIENTS. Grout Pump Operator ID Ross MURRAY [id number] 07:40:00 Test Item Value Reference Range Comments FIBRINOGEN LEVEL (BEAKER) (test rxfx=296) 489 mg/dl 225-434 PT/[id number] 07:40:00 Test Item Value Reference Range Comments PROTIME (BEAKER) (test tzlv=234) 18.7 seconds 11.9-14.2 INR (BEAKER) (test hxgy=829) 1.6 <=5.9 PARTIAL THROMBOPLASTIN TIME (BEAKER) (test 30.0 seconds 22.5-36.0 dlne=237) Effective 09/07/2018: PT Reference Range ChangeNew: 11.9-14.2 Previous: 11.7- 14.7RECOMMENDED COUMADIN/WARFARIN INR THERAPY RANGESSTANDARD DOSE: 2.0-3.0 Includes: PROPHYLAXIS for venous thrombosis, systemic embolization; TREATMENT for venous thrombosis and/or pulmonary embolus.HIGH RISK: Target INR is2.5-3.5 for patients wiht mechanical heart valves.CBC (HEMOGRAM ONLY)2019-05-19 06:13:00 Test Item Value Reference Range Comments WHITE BLOOD CELL COUNT (BEAKER) (test ppwo=672) 14.8 K/ L 3.5-10.5 RED BLOOD CELL COUNT (BEAKER) (test apoq=461) 2.57 M/ L 3.93-5.22 HEMOGLOBIN (BEAKER) (test atar=726) 7.5 GM/DL 11.2-15.7 HEMATOCRIT (BEAKER) (test wkva=600) 24.7 % 34.1-44.9 MEAN CORPUSCULAR VOLUME (BEAKER) (test hgrv=644) 96.1 fL 79.4-94.8 MEAN CORPUSCULAR HEMOGLOBIN (BEAKER) (test 29.2 pg 25.6-32.2 ywaj=031) MEAN CORPUSCULAR HEMOGLOBIN CONC (BEAKER) (test 30.4 GM/DL 32.2-35.5 lqlr=190) RED CELL DISTRIBUTION WIDTH (BEAKER) (test 14.5 % 11.7-14.4 vxmk=250) PLATELET COUNT (BEAKER) (test nbit=396) 236 K/CU MM 150-450 MEAN PLATELET VOLUME (BEAKER) (test anxp=857) 11.5 fL 9.4-12.3 NUCLEATED RED BLOOD CELLS (BEAKER) (test 0 /100 WBC 0-0 bftl=514) POCT-GLUCOSE [id number] 00:26:00 Test Item Value Reference Range Comments POC-GLUCOSE METER (BEAKER) 110 mg/dL 70-110 : Notified RN/MD: TESTED AT (test lscz=2670) [address], [address]: Grout Pump Operator/Plastic Parts Fabricator [id number] for CHRIS ABAD POCT-GLUCOSE [id number] 18:22:00 Test Item Value Reference Range Comments POC-GLUCOSE METER (BEAKER) 127 mg/dL 70-110 : TESTED AT [address] (test vnih=5153) [facility], [address]: Grout Pump Operator/Plastic Parts Fabricator [id number] for RADHA STREETER POCT-GLUCOSE [id number] 12:25:00 Test Item Value Reference Range Comments POC-GLUCOSE METER (BEAKER) 171 mg/dL 70-110 : TESTED AT [address] (test klbw=1944) [facility], [address]: Grout Pump Operator/Plastic Parts Fabricator [id number] for RADHA STREETER [id number] 04:17:00 Test Item Value Reference Range Comments PHOSPHORUS (BEAKER) (test abcn=265) 2.0 mg/dL 2.3-4.7 Grout Pump Operator ID Ross SARAH [id number] 04:17:00 Test Item Value Reference Range Comments MAGNESIUM (BEAKER) (test upfh=617) 1.6 mg/dL 1.6-2.6 Grout Pump Operator ID - KEARA WBASIC METABOLIC [id number] 04:17:00 Test Item Value Reference Range Comments SODIUM (BEAKER) (test 141 meq/L 136-145 zunk=246) POTASSIUM (BEAKER) (test 4.1 meq/L 3.5-5.1 jwiv=374) CHLORIDE (BEAKER) (test 115 meq/L 98-107 hqvr=847) CO2 (BEAKER) (test 21 meq/L 22-29 ufzb=913) BLOOD UREA NITROGEN 22 mg/dL 7-21 (BEAKER) (test ryoy=701) CREATININE (BEAKER) (test 1.08 mg/dL 0.57-1.25 pljl=975) GLUCOSE RANDOM (BEAKER) 122 mg/dL 70-105 (test epzr=475) CALCIUM (BEAKER) (test 8.8 mg/dL 8.4-10.2 quwa=729) EGFR (BEAKER) (test 49 mL/min/1.73 sq m ESTIMATED GFR IS NOT uyrr=0746) ACCURATE CREATININE CLEARANCE IN PREDICTING GLOMERULAR FILTRATION RATE. ESTIMATED GFR IS NOT APPLICABLE FOR DIALYSIS PATIENTS. Grout Pump Operator ID Ross SARAH WCBC (HEMOGRAM ONLY)2019-05-18 03:55:00 Test Item Value Reference Range Comments WHITE BLOOD CELL COUNT (BEAKER) (test kgwx=098) 14.8 K/ L 3.5-10.5 RED BLOOD CELL COUNT (BEAKER) (test iawx=022) 3.00 M/ L 3.93-5.22 HEMOGLOBIN (BEAKER) (test gmul=934) 8.7 GM/DL 11.2-15.7 HEMATOCRIT (BEAKER) (test kzwo=021) 28.4 % 34.1-44.9 MEAN CORPUSCULAR VOLUME (BEAKER) (test lfgs=856) 94.7 fL 79.4-94.8 MEAN CORPUSCULAR HEMOGLOBIN (BEAKER) (test 29.0 pg 25.6-32.2 osgw=112) MEAN CORPUSCULAR HEMOGLOBIN CONC (BEAKER) (test 30.6 GM/DL 32.2-35.5 zndt=048) RED CELL DISTRIBUTION WIDTH (BEAKER) (test 14.3 % 11.7-14.4 juvj=567) PLATELET COUNT (BEAKER) (test zprc=409) 209 K/CU MM 150-450 MEAN PLATELET VOLUME (BEAKER) (test swer=577) 10.6 fL 9.4-12.3 NUCLEATED RED BLOOD CELLS (BEAKER) (test 0 /100 WBC 0-0 ccfp=449) POCT-GLUCOSE [id number] 18:43:00 Test Item Value Reference Range Comments POC-GLUCOSE METER (BEAKER) 139 mg/dL 70-110 : TESTED AT [facility] [address] [place] [address] (test qmfn=5328) [facility], [address]: Grout Pump Operator/Plastic Parts Fabricator [id number] for RADHA STREETER, CAROTID STENT W [id number] 15:10:00Reason for exam:->left carotid stenosisFINAL REPORT Date of procedure May CLINICAL HISTORY: 79 years female with recent arteriogram demonstrating heavily calcified irregular plaque at the origin of the left internal carotid artery with severe focal stenosis of approximately 95- 99 % and poor antegrade flow . After detailed discussions with the referring physician and the patient and his family the patient returned for angioplasty and stenting. Procedure: The risks and benefits of the procedure as well as alternative treatment were explained to the patient and his family and they expressed understanding and willingness to proceed with the procedure. A consent form was signed. The risks include but not limited to stroke, aneurysm rupture, seizure, damage to the blood vessels, hemorrhage, loss of vision, damage to the cranial nerves with loss of motor and sensory functions, infection, allergic reaction to the contrast, damage to the kidney with renal failure,need for additional treatment , complications of general anesthesia and . Neuroleptic sedation and monitoring was provided by anesthesiology. Using a micropuncture set and under fluoroscopic guidance and strict sterile technique a 6 Nicaraguan shuttle sheath was inserted through the right common femoral artery into the left common carotid artery. Under systemic anticoagulation to keep the ACT between 250 and 300 and following premedication with Plavix aspirin the following procedure was performed: 1. Pretreatment selective left common carotid arteriogram with biplane and oblique imaging over the carotid bifurcation.2. Pretreatment selective left common carotid arteriogram with biplane imaging over the intracranial carotid circulation.3. Successful stenting and angioplasty of proximal left internal carotid artery stenosis.4. Post treatment the left common carotid arteriogram with biplane imaging over the carotid bifurcation.5. Posttreatment left common carotid arteriogram with biplane imaging over the intracranial carotid circulation. Finding: The pretreatment left common carotid arteriogram with biplane and oblique imaging over the carotid bifurcation demonstrates an irregular plaque involving the origin of the left internal carotid artery with severe stenosis of approximately 95%. There is poor delayed antegrade flow distal tothe stenotic segment. Following the diagnostic angiogram, and via left common carotid artery approach, An SL 10 microcatheter was gently advanced over a microwire past the stenotic segment. An exchangewire was then placed within the microcatheter. Over the exchange wire a 4 x 20 mm balloon was utilized for predilatation of the stenotic segment. The balloon was then removed. Post angioplasty shows mild improvement in the lumenal diameter with residual stenosis of approximately 70%. A distal protective device (EmbYoics) was gently navigated through the stenotic segment and positioned in the distalcervical segment of the left internal carotid artery. A self expanded nitinol stent ( XACT) which measures 8-6 x 40 mm was was introduced over the wire of the protective device and successfully deployed across the stenotic segment extending from the proximal cervical segment of the left internal carotid artery to the distal segment of the left common carotid artery. A 4 x 20 mm mm balloon were introduced over the wire of the protective device and utilized for post stent deployment angioplasty. The protection devise was then removed using the retrieval sheath. Post treatment arteriogram demonstrates good apposition of the stent to the arterial wall with presybeterian of the intraluminal flow and mild residual stenosis of approximately 20%. There is no evidence of platelet aggregation, or dissection. Intracranially there is presybeterian of good antegrade flow with no evidence of acute clot formation. The MCA on the left side fills normally At the end of the procedure hemostasis was achieved utilizing manual compression and the deployment AngioSeal device. The patient tolerated the procedure well without acute complication related to the procedure. Impression: 1. Successful stenting and angioplasty of proximal left internal carotid artery stenosis. 2. The patient should remain on antiplatelet therapy. Signed: Khai Carrasco MDReport Verified Date/Time: 05/17/2019 15:10:42 Reading Location: [facility] [id number] Neuro Angio Reading Room Electronically signed by: KHAI CARRASCO MD on 2019 03:10 PMPOCT-GLUCOSE [id number] 12:40:00 Test Item Value Reference Range Comments POC-GLUCOSE METER (BEAKER) 130 mg/dL 70-110 : TESTED AT [facility] [address] [facility] (test qdfk=1703) [facility], [address]: Grout Pump Operator/Plastic Parts Fabricator [id number] for SYL RADHA PROTHROMBIN [id number] 11:08:00 Test Item Value Reference Range Comments PROTIME (BEAKER) (test oqzd=398) 13.7 seconds 11.9-14.2 INR (BEAKER) (test shwn=621) 1.1 <=5.9 Effective 09/07/2018: PT Reference Range ChangeNew: 11.9-14.2 Previous: 11.7- 14.7RECOMMENDED COUMADIN/WARFARIN INR THERAPY RANGESSTANDARD DOSE: 2.0-3.0 Includes: PROPHYLAXIS for venous thrombosis, systemic embolization; TREATMENT for venous thrombosis and/or pulmonary embolus.HIGH RISK: Target INR is2.5-3.5 for patients wiht mechanical heart valves.[id number] 09:19:00 Test Item Value Reference Range Comments PARTIAL THROMBOPLASTIN TIME (BEAKER) (test 37.6 seconds 22.5-36.0 yiej=711) POCT-GLUCOSE [id number] 06:49:00 Test Item Value Reference Range Comments POC-GLUCOSE METER (BEAKER) 110 mg/dL 70-110 : TESTED AT [facility] [address] [facility] (test ftry=1051) [facility], [address]: Grout Pump Operator/Plastic Parts Fabricator [id number] for MASON GALARZA BASIC METABOLIC [id number] 05:59:00 Test Item Value Reference Range Comments SODIUM (BEAKER) (test 140 meq/L 136-145 lvbb=736) POTASSIUM (BEAKER) (test 4.2 meq/L 3.5-5.1 Specimen slightly cdld=774) hemolyzed CHLORIDE (BEAKER) (test 111 meq/L 98-107 cbtp=387) CO2 (BEAKER) (test 22 meq/L 22-29 ahrj=185) BLOOD UREA NITROGEN 17 mg/dL 7-21 (BEAKER) (test nbsd=453) CREATININE (BEAKER) (test 1.23 mg/dL 0.57-1.25 Specimen slightly cryu=217) hemolyzed GLUCOSE RANDOM (BEAKER) 90 mg/dL 70-105 (test knon=574) CALCIUM (BEAKER) (test 8.8 mg/dL 8.4-10.2 ywyg=953) EGFR (BEAKER) (test 42 mL/min/1.73 sq m ESTIMATED GFR IS NOT ijeb=5420) ACCURATE CREATININE CLEARANCE IN PREDICTING GLOMERULAR FILTRATION RATE. ESTIMATED GFR IS NOT APPLICABLE FOR DIALYSIS PATIENTS. Grout Pump Operator ID - TERRI [id number] 05:35:00 Test Item Value Reference Range Comments PARTIAL THROMBOPLASTIN TIME (BEAKER) (test 38.3 seconds 22.5-36.0 gshv=161) Prior to initiating heparinPOCT-P2Y12 PLATELET [id number] 05:34:00 Test Item Value Reference Range Comments POC-P2Y12 PLATELET AGG (BEAKER) (test aadi=2381) 230 PRU RANGE INFORMATION: PRU reference range is 194-418. Post Drug Results: Lower PRU levels are associated with expected antiplatelet effect. Values may be below the stated reference range above. The post-drug PRU values reported in the [employer] P2Y12 package insert are [id number].POCT-ASPIRIN PLATELET [id number] 05:34:00 Test Item Value Reference Range Comments POC-ASPIRIN PLATELET AGG (BEAKER) (test xxsm=3851) 564 ARU RANGE INFORMATION: 350-549 ARU Therapeutic range for platelet function. 550-700 ARU Non-Therapeutic range for platelet function.[id number] 05:34:00 Test Item Value Reference Range Comments PARTIAL THROMBOPLASTIN TIME (BEAKER) (test 38.5 seconds 22.5-36.0 mghf=770) CBC (HEMOGRAM ONLY)2019-05-17 04:59:00 Test Item Value Reference Range Comments WHITE BLOOD CELL COUNT (BEAKER) (test zhjl=696) 11.9 K/ L 3.5-10.5 RED BLOOD CELL COUNT (BEAKER) (test iwsx=235) 3.27 M/ L 3.93-5.22 HEMOGLOBIN (BEAKER) (test bplf=247) 9.5 GM/DL 11.2-15.7 HEMATOCRIT (BEAKER) (test otum=265) 31.0 % 34.1-44.9 MEAN CORPUSCULAR VOLUME (BEAKER) (test mkos=767) 94.8 fL 79.4-94.8 MEAN CORPUSCULAR HEMOGLOBIN (BEAKER) (test 29.1 pg 25.6-32.2 bnno=359) MEAN CORPUSCULAR HEMOGLOBIN CONC (BEAKER) (test 30.6 GM/DL 32.2-35.5 xlln=990) RED CELL DISTRIBUTION WIDTH (BEAKER) (test 14.0 % 11.7-14.4 mliw=634) PLATELET COUNT (BEAKER) (test kump=497) 208 K/CU MM 150-450 MEAN PLATELET VOLUME (BEAKER) (test uoad=896) 10.9 fL 9.4-12.3 NUCLEATED RED BLOOD CELLS (BEAKER) (test 0 /100 WBC 0-0 wdgv=171) [id number] 02:03:00 Test Item Value Reference Range Comments PARTIAL THROMBOPLASTIN TIME (BEAKER) (test 35.8 seconds 22.5-36.0 wiaw=327) 6 hours after starting heparin infusion and as indicated per sliding scalePOCT- GLUCOSE [id number] 00:00:00 Test Item Value Reference Range Comments POC-GLUCOSE METER (BEAKER) 109 mg/dL 70-110 : TESTED AT [address] (test gudt=7428) [facility], [address]: Grout Pump Operator/Plastic Parts Fabricator [id number] for MASON GALARZA POCT-GLUCOSE [id number] 18:48:00 Test Item Value Reference Range Comments POC-GLUCOSE METER (BEAKER) 148 mg/dL 70-110 : Notified RN/MD: TESTED AT (test zbzi=8347) [address], [address]: Grout Pump Operator/Plastic Parts Fabricator [id number] for STEWART ZAPATA, ANGIOGRAM, [id number] 16:45:00Reason for exam:->basilar tip aneurysmFINAL REPORT Date of service May 16, 2019 CLINICAL HISTORY: 79 years old female with recent history of left hemispheric strokes and 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 The patient is referred for angiographic evaluation. Procedure: The risk and benefits of the procedure as well as alternatives were explained to the patient and his family and they expressed understanding and willingness to proceed with the procedure. A consent form was signed by the patient. The risks include but not limited to stroke, damage to the blood vessels, aneurysm rupture, hemorrhage, damage to the cranial nerves with loss motor, and sensory functions, loss of vision, infection, allergic reaction to the contrast, damage to the kidney with renal failure,need for additional treatment, and . Neuroleptic sedation was provided by anesthesiology. Using a micropuncture set and under fluoroscopic guidance and strict sterile technique a 4 Nicaraguan femoral sheath was inserted into the right radial artery. Through the sheath a 4 [place]ar[place]uan Blue Saint catheter was then advanced over the wire and the following procedure was performed: 1. Selective right common carotid arteriogram with biplane imaging over the common carotid bifurcation. 2. Selective right common carotid arteriogram with biplane imaging over the intracranial carotid circulation.3. Selective left common carotid arteriogram with biplane imaging over the common carotid bifurcation.4. Selective left common carotid arteriogram with biplane and oblique imaging over the intracranial carotid circulation.5. Selective left subclavian arteriogram with biplane imaging over the vertebrobasilar circulation.6. Selective right vertebral arteriogram with biplane and oblique imaging over the vertebrobasilar circulation.7. Selectiveright vertebral arteriogram with three-dimensional rotational imaging which was reconstructed on a dedicated workstation for better understanding of the anatomy. Findings: The selective right common carotid arteriogram with biplane imaging over the common carotid bifurcation demonstrates normal bifurcation of the common carotid artery with no angiographic evidence of dissection, aneurysm, significant focal stenosis , or other vascular abnormality. The selective right common carotid arteriogram withbiplane ,and three-dimensional imaging demonstrates normal antegrade flow with no angiographic evidence of aneurysm, vascular malformation, vasculitis, major branch occlusion, significant focal stenosis, dural arteriovenous fistula, or other vascular abnormality. There is flash filling of the left anterior cerebral artery through a patent anterior communicating artery filling the left KIRSTEN. The left A1 is not visualized. There is no significant pial collaterals. The venous system is within normal limits. The selective left common carotid arteriogram with biplane imaging over the common carotid bifurcation demonstrates a critical 99% stenosis of the left ICA just distal to the origin. The flow intracranially is extremely delayed. The selective left common carotid arteriogram with biplane ,and oblique imaging demonstrates extremely delayed antegrade flow with no angiographic evidence of aneurysm, vascular malformation, vasculitis, major branch occlusion, significant focal stenosis, dural arteriovenous fistula, or other vascular abnormality. The venous system is within normal limits. The selective left subclavian artery review left vertebral artery origin occlusion. The selective right vertebral arteriogram with 3-D rotational angiography demonstrates normal antegrade flow with a large basilarapex aneurysm. The aneurysm measured 6.8 mm at the neck 7 mm with an 6 mm height. At the end of theprocedure, the right femoral sheath was removed. Local hemostasis was achieved utilizing manual compression. The patient tolerated the procedure well without complication. SUMMARY: 1. Critical 99% left ICA stenosis right distal to the origin. 2. 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 Signed: [facility]ai [facility] Verified Date/Time: 16:45:20 Reading Location[facility] POCT- GLUCOSE [id number] 13:41:00 Test Item Value Reference Range Comments POC-GLUCOSE METER (BEAKER) 120 mg/dL 70-110 : TESTED AT [facility] [address] [facility] (test dsas=5103) [facility], [address]: Grout Pump Operator/Plastic Parts Fabricator [id number]=[id number] for ESVIN RIVERA [id number] 09:24:00 Test Item Value Reference Range Comments PARTIAL THROMBOPLASTIN TIME (BEAKER) (test 36.3 seconds 22.5-36.0 ilvh=298) 6 hours after starting heparin infusion and as indicated [facility] ( [facility])2019-05-16 09:10:00 Test Item Value Reference Range Comments WHITE BLOOD CELL COUNT (BEAKER) (test pdha=875) 10.1 K/ L 3.5-10.5 RED BLOOD CELL COUNT (BEAKER) (test mlnd=160) 3.68 M/ L 3.93-5.22 HEMOGLOBIN (BEAKER) (test uyzt=207) 10.6 GM/DL 11.2-15.7 HEMATOCRIT (BEAKER) (test wlek=201) 34.7 % 34.1-44.9 MEAN CORPUSCULAR VOLUME (BEAKER) (test ixdu=308) 94.3 fL 79.4-94.8 MEAN CORPUSCULAR HEMOGLOBIN (BEAKER) (test 28.8 pg 25.6-32.2 kfkv=086) MEAN CORPUSCULAR HEMOGLOBIN CONC (BEAKER) (test 30.5 GM/DL 32.2-35.5 qvvc=129) RED CELL DISTRIBUTION WIDTH (BEAKER) (test 14.0 % 11.7-14.4 acvq=605) PLATELET COUNT (BEAKER) (test rlrs=774) 240 K/CU MM 150-450 MEAN PLATELET VOLUME (BEAKER) (test tkzo=555) 10.6 fL 9.4-12.3 NUCLEATED RED BLOOD CELLS (BEAKER) (test 0 /100 WBC 0-0 fjlf=622) [id number] 03:01:00 Test Item Value Reference Range Comments PROTIME (BEAKER) (test oozr=677) 19.1 seconds 11.9-14.2 INR (BEAKER) (test dfbs=972) 1.7 <=5.9 PARTIAL THROMBOPLASTIN TIME (BEAKER) (test 32.2 seconds 22.5-36.0 mxgl=701) Effective 09/07/2018: PT Reference Range ChangeNew: 11.9-14.2 Previous: 11.7- 14.7RECOMMENDED COUMADIN/WARFARIN INR THERAPY RANGESSTANDARD DOSE: 2.0-3.0 Includes: PROPHYLAXIS for venous thrombosis, systemic embolization; TREATMENT for venous thrombosis and/or pulmonary embolus.HIGH RISK: Target INR is2.5-3.5 for patients wiht mechanical heart valves.Prior to initiating heparinPrior to initiating [id number] 03:01:00 Test Item Value Reference Range Comments PARTIAL THROMBOPLASTIN TIME (BEAKER) (test 32.2 seconds 22.5-36.0 vtng=022) BASIC METABOLIC [id number] 02:58:00 Test Item Value Reference Range Comments SODIUM (BEAKER) (test 135 meq/L 136-145 wxtx=476) POTASSIUM (BEAKER) (test 4.2 meq/L 3.5-5.1 royc=900) CHLORIDE (BEAKER) (test 106 meq/L 98-107 rupp=160) CO2 (BEAKER) (test 22 meq/L 22-29 vxac=960) BLOOD UREA NITROGEN 15 mg/dL 7-21 (BEAKER) (test zgzk=008) CREATININE (BEAKER) (test 1.16 mg/dL 0.57-1.25 evaf=193) GLUCOSE RANDOM (BEAKER) 116 mg/dL 70-105 (test ffdh=067) CALCIUM (BEAKER) (test 8.9 mg/dL 8.4-10.2 kjfz=591) EGFR (BEAKER) (test 45 mL/min/1.73 sq m ESTIMATED GFR IS NOT upxu=4190) ACCURATE CREATININE CLEARANCE IN PREDICTING GLOMERULAR FILTRATION RATE. ESTIMATED GFR IS NOT APPLICABLE FOR DIALYSIS PATIENTS. Grout Pump Operator ID - TERRI MPLATELET [id number] 02:45:00 Test Item Value Reference Range Comments PLATELET COUNT (BEAKER) (test imnl=129) 231 K/CU MM 150-450 Grout Pump Operator ID - [id number], CEREBRAL PERFUSION [id number] 01:22:00FINAL REPORT CT cerebral perfusion analysis. Comparison: None. Reason for exam: Neuro deficit, acute, stroke suspected. Discussion: CT imaging was provided using perfusion technique with associated post processed perfusion analysis maps including main transit time, time to peak, blood flow, and blood volume. Dose modulation, iterative reconstruction, and/or weight based adjustment of the mA/kV was utilized to reduce the radiation dose to as low as reasonably achievable. Thereis a large area of matched perfusion defects (increased mean transit time, decreased cerebral blood flow and decreased cerebral blood volume) in the left MCA territory consistent with an infarct core.Impression: Large left MCA infarct core. Discussed with covering neurology resident at approximately 1:20 AM 05/16/2018. Signed: Fabiano Montoya Verified Date/Time: 05/16/2019 01:22:48 [facility], CTANGIO [id number] 01: 09:00FINAL REPORT EXAM: CT, CT Angio, Brain. CT Carotid Angio CLINICAL HISTORY: Neuro deficit, acute, stroke suspected COMPARISON: None. TECHNIQUE: CT angiogram of the head and neck was performed with intravenous contrast. 2-D and 3-D reformatted images were obtained. This exam wasperformed according to our departmental dose optimization program which includes automated exposure control, adjustment of the mA and/or kV according to patient's size and/or use of iterative reconstructive technique. FINDINGS: CTA head: There are mild atherosclerotic calcifications of the bilateral carotid siphons. There is good flow related enhancement of the bilateral anterior, middle and posterior cerebral arteries and within the basilar artery. The intracranial and skull base internal carotid arteries as well as the vertebral arteries demonstrate normal flow-related enhancement. There is mild long segment stenosis of the proximal left intradural vertebral artery.There is no vessel occlusion or flow-limiting stenosis.The dural venous sinuses are patent. There is an 8 x 7 x 8 mm (AP x TR x CC)superiorly projecting and mildly lobulated basilar tip aneurysm. CTA neck: The visualized aortic arch and great vessel origins are unremarkable except for calcific atherosclerosis.There are small ulcerations of the distal right common carotid artery.The right internal carotid artery has a retropharyngeal course. There are atheromatous changes of the left carotid bulb with calcified and noncalcified plaque resulting in mild stenosis. There is near occlusion/ severe stenosis of the proximal left cervical ICA (approximately 79% criteria NASCET criteria) due to calcified and noncalcified mural plaque. The vertebral arteries are well visualized. There is mild stenosis of the bilateral vertebral artery origins due to calcified and noncalcified mural plaque. 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 Mild long segment stenosis of the proximal left intradural vertebral artery. No vessel occlusion or flow-limiting stenosis. CTA neck: Critical stenosis of the proximal left cervical ICA.Discussed with covering neurology resident at approximately 1:05 AM 05/16/2019. Signed: Fabiano Montoya MDReport Verified Date/Time: 05/16/2019 01:09:25 [facility], [id number] 01:09: 00FINAL REPORT EXAM: CT, CT Angio, Brain. CT Carotid Angio CLINICAL HISTORY: Neuro deficit, acute, stroke suspected COMPARISON: None. TECHNIQUE: CT angiogram of the head and neck was performed with intravenous contrast. 2-D and 3-D reformatted images were obtained. This exam wasperformed according to our departmental dose optimization program which includes automated exposure control, adjustment of the mA and/or kV according to patient's size and/or use of iterative reconstructive technique. FINDINGS: CTA head: There are mild atherosclerotic calcifications of the bilateral carotid siphons. There is good flow related enhancement of the bilateral anterior, middle and posterior cerebral arteries and within the basilar artery. The intracranial and skull base internal carotid arteries as well as the vertebral arteries demonstrate normal flow-related enhancement. There is mild long segment stenosis of the proximal left intradural vertebral artery.There is no vessel occlusion or flow-limiting stenosis.The dural venous sinuses are patent. There is an 8 x 7 x 8 mm (AP x TR x CC)superiorly projecting and mildly lobulated basilar tip aneurysm. CTA neck: The visualized aortic arch and great vessel origins are unremarkable except for calcific atherosclerosis.There are small ulcerations of the distal right common carotid artery.The right internal carotid artery has a retropharyngeal course. There are atheromatous changes of the left carotid bulb with calcified and noncalcified plaque resulting in mild stenosis. There is near occlusion/ severe stenosis of the proximal left cervical ICA (approximately 79% criteria NASCET criteria) due to calcified and noncalcified mural plaque. The vertebral arteries are well visualized. There is mild stenosis of the bilateral vertebral artery origins due to calcified and noncalcified mural plaque. 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 Mild long segment stenosis of the proximal left intradural vertebral artery. No vessel occlusion or flow-limiting stenosis. CTA neck: Critical stenosis of the proximal left cervical ICA.Discussed with covering neurology resident at approximately 1:05 AM 05/16/2019. Signed: Fabiano Montoya MDReport Verified Date/Time: 05/16/2019 01:09:25 [facility], BRAIN/STROKE [id number] 23:34 :00FINAL REPORT EXAM: CT head without contrast. CLINICAL HISTORY: Focal neuro deficit, new, fixed or worsening, <6 hours COMPARISON: Same-day brain MRI. TECHNIQUE: CT images of the head were obtained without intravenous contrast. This exam was performed according to our departmental dose optimization program which includes automated exposure control , adjustment of the mA and/or kV according to patient's size and/or use of iterative reconstructive technique. FINDINGS:There ismild generalized parenchymal atrophy.There are mild white matter microvascular ischemic changes. There is intracranial calcific atherosclerosis.There is an 8 x 7 mm opacity in the interpeduncular fossaconsistent with a basilar tip aneurysm.There is no acute intracranial hemorrhage, extra-axial fluid collection, mass effect, herniation, hydrocephalus or large demarcated acute territorial infarct. The basal cisterns are patent. There are bilateral lens replacements. The visualized paranasal sinusesand tympanomastoid cavities are clear. The skull base and calvarium are intact. IMPRESSION: Mild white matter microvascular ischemic changes.No acute intracranial hemorrhage, mass effect or large demarcated acute territorial infarct.8 x 7 mm basilar tip aneurysm. Discussed with neurology resident at 11:30 PM 05/15/2019. Signed: Fabiano Montoya Verified Date/Time: 05/15/2019 23:34:22 POCT-GLUCOSE [id number] 20:57:00 Test Item Value Reference Range Comments POC-GLUCOSE METER (BEAKER) 119 mg/dL 70-110 : TESTED AT [facility] [address] [facility] (test mhgn=3359) [facility], [id number]: Grout Pump Operator/Plastic Parts Fabricator [id number] for CARLINE PETERSON PROTHROMBIN [id number] 19:47:00 Test Item Value Reference Range Comments PROTIME (BEAKER) (test rkwk=731) 19.6 seconds 11.9-14.2 INR (BEAKER) (test ttfc=530) 1.7 <=5.9 Effective 09/07/2018: PT Reference Range ChangeNew: 11.9-14.2 Previous: 11.7- 14.7RECOMMENDED COUMADIN/WARFARIN INR THERAPY RANGESSTANDARD DOSE: 2.0-3.0 Includes: PROPHYLAXIS for venous thrombosis, systemic embolization; TREATMENT for venous thrombosis and/or pulmonary embolus.HIGH RISK: Target INR is2.5-3.5 for patients wiht mechanical heart valves.POCT-GLUCOSE [id number] 17:51:00 Test Item Value Reference Range Comments POC-GLUCOSE METER (BEAKER) 125 mg/dL 70-110 : TESTED AT [address] (test qowl=5863) [facility], [address]: Grout Pump Operator/Plastic Parts Fabricator [id number] for MISTI SIMONSLE POCT-GLUCOSE [id number] 11:55:00 Test Item Value Reference Range Comments POC-GLUCOSE METER (BEAKER) 169 mg/dL 70-110 : TESTED AT [address] (test tdxj=2266) [facility], [id number]: Grout Pump Operator/Plastic Parts Fabricator [id number] for MISTI SIMONSLE HEMOGLOBIN [id number] 10:46:00 Test Item Value Reference Range Comments HEMOGLOBIN A1C (BEAKER) (test hlxe=008) 5.8 % 4.3-6.1 POCT-GLUCOSE [id number] 08:50:00 Test Item Value Reference Range Comments POC-GLUCOSE METER (BEAKER) 134 mg/dL 70-110 : TESTED AT [address] (test jppq=4451) [facility], [id number]: Grout Pump Operator/Plastic Parts Fabricator [id number] for MARIA DEL CARMEN SIMONS VITAMIN B12 AND [id number] 07:44:00 Test Item Value Reference Range Comments VITAMIN B12 (BEAKER) (test nrgl=417) 472 pg/mL 213-816 FOLATE (BEAKER) (test xkmd=211) 19.4 ng/mL >=7.0 Grout Pump Operator ID - MALOU FPOCT-GLUCOSE [id number] 06:57:00 Test Item Value Reference Range Comments POC-GLUCOSE METER (BEAKER) 114 mg/dL 70-110 : TESTED AT [address] (test rvle=2904) [facility], [address]: Grout Pump Operator/Plastic Parts Fabricator [id number] for MALIHA JULIAN LIPID [id number] 06:53:00 Test Item Value Reference Range Comments TRIGLYCERIDES (BEAKER) (test fyks=943) 341 mg/dL CHOLESTEROL (BEAKER) (test hyeg=639) 199 mg/dL HDL CHOLESTEROL (BEAKER) (test ftwt=231) 41 mg/dL LDL CHOLESTEROL CALCULATED (BEAKER) (test 90 mg/dL yiiv=556) Triglyceride Reference Range: Low Risk <150 Borderline 150- 199 High Risk 200-499 Very High Risk >=500Cholesterol Reference Range: Low Risk <200 Borderline 200-239 High Risk > 240HDL Cholesterol Reference Range: Low Risk >=60 High Risk <40LDL Cholesterol Reference Range: Optimal <100 Near Optimal 100-129 Borderline 130-159 High 160-189 Very High >=190 Grout Pump Operator ID - PIAYALBASIC METABOLIC [id number] 06:53:00 Test Item Value Reference Range Comments SODIUM (BEAKER) (test 139 meq/L 136-145 ebah=286) POTASSIUM (BEAKER) (test 4.3 meq/L 3.5-5.1 mjsh=071) CHLORIDE (BEAKER) (test 110 meq/L 98-107 foku=369) CO2 (BEAKER) (test 22 meq/L 22-29 qmat=482) BLOOD UREA NITROGEN 17 mg/dL 7-21 (BEAKER) (test pzdl=298) CREATININE (BEAKER) (test 1.15 mg/dL 0.57-1.25 eddl=708) GLUCOSE RANDOM (BEAKER) 121 mg/dL 70-105 (test hqkt=340) CALCIUM (BEAKER) (test 9.3 mg/dL 8.4-10.2 ucfr=192) EGFR (BEAKER) (test 46 mL/min/1.73 sq m ESTIMATED GFR IS NOT ggdx=6883) ACCURATE CREATININE CLEARANCE IN PREDICTING GLOMERULAR FILTRATION RATE. ESTIMATED GFR IS NOT APPLICABLE FOR DIALYSIS PATIENTS. Grout Pump Operator ID - PIAYA LCBC (HEMOGRAM ONLY)2019-05-15 06:29:00 Test Item Value Reference Range Comments WHITE BLOOD CELL COUNT (BEAKER) (test nqux=579) 10.6 K/ L 3.5-10.5 RED BLOOD CELL COUNT (BEAKER) (test wlgn=246) 3.58 M/ L 3.93-5.22 HEMOGLOBIN (BEAKER) (test ppgb=733) 10.3 GM/DL 11.2-15.7 HEMATOCRIT (BEAKER) (test vpwk=980) 34.0 % 34.1-44.9 MEAN CORPUSCULAR VOLUME (BEAKER) (test kokc=070) 95.0 fL 79.4-94.8 MEAN CORPUSCULAR HEMOGLOBIN (BEAKER) (test 28.8 pg 25.6-32.2 nerb=181) MEAN CORPUSCULAR HEMOGLOBIN CONC (BEAKER) (test 30.3 GM/DL 32.2-35.5 jdqf=770) RED CELL DISTRIBUTION WIDTH (BEAKER) (test 13.8 % 11.7-14.4 pvnm=267) PLATELET COUNT (BEAKER) (test sjyl=217) 244 K/CU MM 150-450 MEAN PLATELET VOLUME (BEAKER) (test whuf=969) 10.8 fL 9.4-12.3 NUCLEATED RED BLOOD CELLS (BEAKER) (test 0 /100 WBC 0-0 glth=205) MR, BRAIN, WITHOUT [id number] 04:06:00FINAL REPORT EXAM: MR, BRAIN, WITHOUT CONTRAST CLINICAL INDICATION: Neuro deficit. Concern for stroke. TECHNIQUE: Sagittal and coronal T1-w and axial T2-FLAIR , GRE, fat-saturated T2-w, and diffusion-w images of the brain with ADC maps. COMPARISON: 03/22/2019 MRI/MRA FINDINGS:Parenchyma: There are a few punctate acute infarctions on DWI in the posterior left le radiata. Remote subcortical focal infarction of the left postcentral gyrus No hemorrhage. No mass or mass effect. Scattered foci of T2 hyperintensity are present in the cerebral white matter that are nonspecific but compatible with mild chronic microvascular ischemic changes. Extra-axial Collection: None Ventricular System: No hydrocephalus. Major Intracranial Flow Voids: Preserved. A basilar tip aneurysm is present with diameter of 0.9 cm correlating to prior MRA. Osseous Structures: Expected marrow signal. Included Orbits: Prior bilateral lens surgery Paranasal Sinuses: Predominantly clear Tympanomastoid Cavities: Normal IMPRESSION: 1. Few punctate acute infarctions in the posterior left le radiata. No hemorrhage or mass effect.2. 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 Signed: Denise Rosario MDReport Verified Date/Time: 05/15/2019 04:06: 56 POCT- GLUCOSE [id number] 21:18:00 Test Item Value Reference Range Comments POC-GLUCOSE METER (BEAKER) 95 mg/dL 70-110 : TESTED AT [facility] [address] (test efyz=4237) [facility], [address]: Grout Pump Operator/Plastic Parts Fabricator [id number] for MALIHA JULIAN BASIC METABOLIC [id number] 14:37:00 Test Item Value Reference Range Comments SODIUM (BEAKER) (test 140 meq/L 136-145 nxty=513) POTASSIUM (BEAKER) (test 4.6 meq/L 3.5-5.1 ubop=713) CHLORIDE (BEAKER) (test 107 meq/L 98-107 iwuy=180) CO2 (BEAKER) (test 23 meq/L 22-29 cpnq=289) BLOOD UREA NITROGEN 78 mg/dL 7-21 (BEAKER) (test vrbk=695) CREATININE (BEAKER) (test 2.35 mg/dL 0.57-1.25 ofeh=789) GLUCOSE RANDOM (BEAKER) 112 mg/dL 70-105 (test dtkx=064) CALCIUM (BEAKER) (test 9.8 mg/dL 8.4-10.2 ffmu=503) EGFR (BEAKER) (test 20 mL/min/1.73 sq m ESTIMATED GFR IS NOT cktt=8505) ACCURATE CREATININE CLEARANCE IN PREDICTING GLOMERULAR FILTRATION RATE. ESTIMATED GFR IS NOT APPLICABLE FOR DIALYSIS PATIENTS. BASIC METABOLIC [id number] 13:34:00 Test Item Value Reference Range Comments SODIUM (BEAKER) (test 138 meq/L 136-145 llpe=405) POTASSIUM (BEAKER) (test 4.6 meq/L 3.5-5.1 pgtz=554) CHLORIDE (BEAKER) (test 106 meq/L 98-107 tsnm=313) CO2 (BEAKER) (test 21 meq/L 22-29 epnn=297) BLOOD UREA NITROGEN 80 mg/dL 7-21 (BEAKER) (test gcjz=296) CREATININE (BEAKER) (test 2.49 mg/dL 0.57-1.25 rzak=674) GLUCOSE RANDOM (BEAKER) 122 mg/dL 70-105 (test gbda=303) CALCIUM (BEAKER) (test 9.9 mg/dL 8.4-10.2 gugs=659) EGFR (BEAKER) (test 19 mL/min/1.73 sq m ESTIMATED GFR IS NOT nmty=3271) ACCURATE CREATININE CLEARANCE IN PREDICTING GLOMERULAR FILTRATION RATE. ESTIMATED GFR IS NOT APPLICABLE FOR DIALYSIS PATIENTS. PT/[id number] 12:49:00 Test Item Value Reference Range Comments PROTIME (BEAKER) (test akxc=431) 13.2 seconds 11.9-14.2 INR (BEAKER) (test gxie=223) 1.1 <=5.9 PARTIAL THROMBOPLASTIN TIME (BEAKER) (test 28.8 seconds 22.5-36.0 kmym=116) Effective 09/07/2018: PT Reference Range ChangeNew: 11.9-14.2 Previous: 11.7- 14.7RECOMMENDED COUMADIN/WARFARIN INR THERAPY RANGESSTANDARD DOSE: 2.0-3.0 Includes: PROPHYLAXIS for venous thrombosis, systemic embolization; TREATMENT for venous thrombosis and/or pulmonary embolus.HIGH RISK: Target INR is2.5-3.5 for patients wiht mechanical heart valves.CBC W/PLT COUNT & AUTO [id number] 12:48:00 Test Item Value Reference Range Comments WHITE BLOOD CELL COUNT (BEAKER) (test vxli=174) 12.4 K/ L 3.5-10.5 RED BLOOD CELL COUNT (BEAKER) (test owda=047) 3.90 M/ L 3.93-5.22 HEMOGLOBIN (BEAKER) (test sqce=875) 11.4 GM/DL 11.2-15.7 HEMATOCRIT (BEAKER) (test reoo=529) 36.5 % 34.1-44.9 MEAN CORPUSCULAR VOLUME (BEAKER) (test hfng=358) 93.6 fL 79.4-94.8 MEAN CORPUSCULAR HEMOGLOBIN (BEAKER) (test 29.2 pg 25.6-32.2 nxwn=962) MEAN CORPUSCULAR HEMOGLOBIN CONC (BEAKER) (test 31.2 GM/DL 32.2-35.5 sgzl=080) RED CELL DISTRIBUTION WIDTH (BEAKER) (test 13.7 % 11.7-14.4 vyii=199) PLATELET COUNT (BEAKER) (test iqcf=077) 307 K/CU MM 150-450 MEAN PLATELET VOLUME (BEAKER) (test gdmq=707) 11.3 fL 9.4-12.3 NUCLEATED RED BLOOD CELLS (BEAKER) (test 0 /100 WBC 0-0 hani=972) NEUTROPHILS RELATIVE PERCENT (BEAKER) (test 68 % ygik=071) LYMPHOCYTES RELATIVE PERCENT (BEAKER) (test 19 % gdsf=903) MONOCYTES RELATIVE PERCENT (BEAKER) (test 8 % wdjg=480) EOSINOPHILS RELATIVE PERCENT (BEAKER) (test 4 % suxv=409) BASOPHILS RELATIVE PERCENT (BEAKER) (test 1 % bthv=747) NEUTROPHILS ABSOLUTE COUNT (BEAKER) (test 8.38 K/ L 1.56-6.13 erxc=267) LYMPHOCYTES ABSOLUTE COUNT (BEAKER) (test 2.40 K/ L 1.18-3.74 envy=675) MONOCYTES ABSOLUTE COUNT (BEAKER) (test 0.94 K/ L 0.24-0.36 wmms=408) EOSINOPHILS ABSOLUTE COUNT (BEAKER) (test 0.44 K/ L 0.04-0.36 khpz=460) BASOPHILS ABSOLUTE COUNT (BEAKER) (test 0.06 K/ L 0.01-0.08 gqbt=130) IMMATURE GRANULOCYTES-RELATIVE PERCENT (BEAKER) 1 % 0-1 (test iwfl=3680)
[2019-05-29] MEDS ORDERED: ALBUTEROL INHALER 60 PUFF/8 GM IH PRN (20:49)
[2019-05-29] MEDS ORDERED: DOCUSATE NA/SENNA CONC 1 TAB PO PRN (20:49)
[2019-05-29] MEDS ORDERED: COLCHICINE 0.6 MG TAB PO PRN (20:49)
[2019-05-29] MEDS: IPRATROPIUM BROM 0.5MG/2.5ML NEB SCH (21:30)
[2019-05-29] MEDS ORDERED: IPRATROPIUM BROM 0.5MG/2.5ML ONE (21:37)
[2019-05-29] MEDS: BENZONATATE 100 MG CAP PO PRN (22:16)
[2019-05-29] MEDS: MELATONIN 5 MG TABLET PO SCH (22:16)
[2019-05-29] MEDS: ATORVASTATIN 80 MG TAB PO SCH (22:16)
[2019-05-29] MEDS: GABAPENTIN 300 MG CAP PO SCH (22:16)
[2019-05-30] MEDS: IPRATROPIUM BROM 0.5MG/2.5ML NEB SCH (01:10)
[2019-05-30 06:11] LABS: Albumin 2.5 g/dL (3.4-5.0); Magnesium 2.3 mg/dL (1.8-2.4); Potassium 4.1 mmol/L (3.5-5.1); Prealbumin 31.1 mg/dL (20-40)
[2019-05-30 06:23] LABS: Absolute Lymphocytes (CBC) 2.3 K/uL (0.7-4.9); Basophils % 0.2 % (0-1.3); Hematocrit 38.1 % (36.0-45.0); MPV 9.3 fL (7.6-11.3); RBC Red Blood Cell Count 4.15 M/uL (3.86-4.86)
[2019-05-30] MEDS: LEVOTHYROXINE SOD 0.05 MG TABLET PO SCH (06:56)
[2019-05-30] MEDS: PANTOPRAZOLE 40MG TABLET PO SCH (06:56)
[2019-05-30] MEDS: NEBIVOLOL HCL 5 MG TAB PO SCH ×2 (08:18→19:19)
[2019-05-30] MEDS: cloNIDine HCL 0.1 MG TAB PO SCH ×2 (08:18→19:19)
[2019-05-30] MEDS: VALSARTAN 160 MG TAB PO SCH (08:19)
[2019-05-30] MEDS: predniSONE 20 MG TAB PO SCH (08:19)
[2019-05-30] MEDS: TICAGRELOR 90 MG TABLET PO SCH ×2 (08:19→19:19)
[2019-05-30] MEDS: RANITIDINE 150 MG TABLET PO SCH ×2 (08:20→19:20)
[2019-05-30] MEDS: ACETAMINOPHEN 500 MG TAB PO PRN ×3 (08:20→19:20)
[2019-05-30] MEDS: TORSEMIDE 20 MG TAB PO SCH (08:21)
[2019-05-30] MEDS: GUAIFENESIN 600 MG SA TAB PO SCH ×2 (08:21→19:20)
[2019-05-30] MEDS: allopurinoL 100 MG TAB PO SCH (08:21)
[2019-05-30] MEDS: FERROUS SULFATE 325 MG TAB PO SCH (08:21)
[2019-05-30] MEDS: TAMSULOSIN 0.4 MG SR CAP PO SCH (08:22)
[2019-05-30] MEDS: ASPIRIN 81 MG CHEWABLE TABLET PO SCH (08:22)
[2019-05-30] MEDS: HYDRALAZINE HCL 25 MG TABLET PO SCH ×4 (08:23→19:19)
[2019-05-30] MEDS: GABAPENTIN 300 MG CAP PO SCH ×3 (08:25→19:20)
[2019-05-30] MEDS ORDERED: AMOX/K CLAV 875 MG TAB PO SCH (08:30)
[2019-05-30 09:01] LABS: Anisocytosis 1+; Blood Morphology Comment NOTED (NOT SEEN); Platelet Estimate ADEQ
[2019-05-30] MEDS ORDERED: GLUCAGON 1 MG/VIAL IM PRN (09:32)
[2019-05-30] MEDS ORDERED: D50W 25 GM/50 ML SYRINGE/VIAL IV PRN (09:32)
[2019-05-30] MEDS: INSULIN -REGULAR HUMAN 50 UNIT/0.5 ML ML SQ SCH ×3 (11:30→19:20)
--- NOTE | 2019-05-30 14:35 | RAD REPORT ---
EXAM DESCRIPTION: RAD - Barium Swallow Modified - 05/30/2019 2:03 pm CLINICAL HISTORY: Swallowing eval Dysphagia COMPARISON: [facility] Protocol dated 02/13/2017 TECHNIQUE: The patient was given liquid, semi-solid and solid forms of barium. Lateral view fluorosc opic imaging was performed in conjunction with speech pathology service. FINDINGS: Laryngeal penetration: cleared thin when taken with barium tablet Pharyngeal residue: : vallecular and pyriform trace with thin and nectar Total fluoroscopy time: 2 minutes and 13 seconds
--- NOTE | 2019-05-30 14:37 | RAD REPORT ---
EXAM DESCRIPTION: RAD - Chest Single View - 05/30/2019 2:03 pm CLINICAL HISTORY: R/O PNEUMONIA Chest pain. COMPARISON: Chest Single View dated 05/14/2019; Chest Single View dated 03/21/2019; Chest Single View dated 12/27/2018; Chest Single View dated 01/07/2018; Barium Swallow Modified dated 05/30/2019 FINDINGS: Portable technique limits examination quality. The lungs are grossly clear. Slight high density material along the tracheobronchial tree suggests mi ld aspiration of barium. The heart is upper limit of normal in size. No displaced fractures. IMPRESSION: No focal infiltrate to suggest pneumonia seen. Mild aspiration of barium suspected.
--- NOTE | 2019-05-30 14:55 | FAST ---
SHIFT START DATE/TIME: 05/30/2019 07:00 (MOTOR VEHICLE EXAMINER) SHIFT END DATE/TIME: 05/30/2019 19:00 (MOTOR VEHICLE EXAMINER) NAME BETTY BRAVO DATE OF : 1940 DATE OF ADMISSION: 05/29/2019 19:32 (MOTOR VEHICLE EXAMINER) PHONE: AGE: 79 N# [id number] GENDER: Female ENCOUNTER PHYSICIAN: Dr. Juanjo Mccall M.D. ADMISSION DIAGNOSIS: - Stroke 01 - Right Body (Left Brain) (01.2) LEFT MCA INFARCT. EATING: EATING - STEP 1: Does the patient complete the activity by him/herself with no assistance (physical, verbal/nonverbal cueing, setup/clean-up)? No. EATING - STEP 2: Does the patient need only setup/clean-up assistance from one helper? Yes. 1. [id number] ADMISSION PERFORMANCE: Setup or clean-up assistance CODE: 05 ORAL HYGIENE: ORAL HYGIENE - STEP 1: Does the patient complete the activity by him/herself with no assistance (physical, verbal/nonverbal cueing, setup/clean-up)? No. ORAL HYGIENE - STEP 2: Does the patient need only setup/clean-up assistance from one helper? Yes. 1. [id number] ADMISSION PERFORMANCE: Setup or clean-up assistance CODE: 05 TOILETING HYGIENE: TOILETING HYGIENE - STEP 1: Does the patient complete the activity by him/herself with no assistance (physical, verbal/nonverbal cueing, setup/clean-up)? No. TOILETING HYGIENE - STEP 2: Does the patient need only setup/clean-up assistance from one helper? Yes. 1. [id number] ADMISSION PERFORMANCE: Setup or clean-up assistance CODE: 05 BATHING: Not assessed/no information CODE: - DRESSING - UPPER BODY: Not assessed/no information CODE: - DRESSING - LOWER BODY: Not assessed/no information CODE: - PUTTING ON/TAKING OFF FOOTWEAR: Not assessed/no information CODE: - DOES THE PATIENT USE A WHEELCHAIR/SCOOTER? CODE: EXPR INDICATE THE TYPE OF WHEELCHAIR/SCOOTER USED: CODE: EXPR INDICATE THE TYPE OF WHEELCHAIR/SCOOTER USED: CODE: EXPR BLADDER AND BOWEL: H350. BLADDER CONTINENCE (3-DAY ASSESSMENT PERIOD): Always continent (no documented incontinence) CODE: 0 H400. BOWEL CONTINENCE (3-DAY ASSESSMENT PERIOD): Occasionally incontinent (one episode of bowel incontinence) CODE: 1 SIGNATURE PANEL: The following modified sections: 1. [id number] Admission Performance, 1. [id number] Admission Performance, 1. [id number] Admission Performance, H400. Bowel Continence (3-day assessment period), H350. Bladder Con tinence (3-day assessment period) were [electronically] signed by Romy Contreras C.N.AJuan on WedMay 30 2019 14:54:57 GMT-0600 (Central Standard Time)
[2019-05-30 16:19] LABS: Urine Appearance CLOUDY; Urine Bilirubin NEGATIVE (NEG); Urine Blood NEGATIVE (NEG); Urine Color YELLOW; Urine Glucose NEGATIVE (NEG); Urine Protein 2+ (NEG); Urine Specific Gravity 1.015 (1.005-1.030); Urine Urobilinogen 0.2 mg/dL (0.2-1.0)
[2019-05-30] MEDS ORDERED: METFORMIN HCL 500 MG TAB PO SCH (17:00)
[2019-05-30] MEDS ORDERED: RIVAROXABAN 10 MG TABLET PO SCH (17:00)
[2019-05-30 17:04] LABS: Urine RBC <5 /HPF (NONE SEEN)
[2019-05-30 17:05] LABS: Urine Bacteria >50 /HPF (<20); Urine Culture Reflex Order REFLEXED
--- NOTE | 2019-05-30 17:33 | R.HP ---
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 board/care, assisted living, skilled nursing, transitional living) PRE-HOSPITAL LIVING WITH Family/Relatives ENCOUNTER PHYSICIAN: Dr. Juanjo Mccall M.D. 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 SECONDARY/COMORBID DIAGNOSES (TIERED): - N/A COPD DM LLE DVT GERD Gout Hyperlipidemia HTN Hypothyroidism CKD STAGE 4 Anemia HISTORY OF PRESENT ILLNESS (HPI): Pt. is a 79 yo Right-handed white female. On 05/14/2019 Pt. presented to [facility] with sudden onset of right-side weakness . On 05/14/2019 she was admitted to [facility] with diagnosis LEFT MCA INFARCT. Her impairment category is Stroke 01 - Right Body (Left Brain) (01.2). Pre-morbidly, Pt. was independent/mod-I in Locomotion, Safety Awareness, Balance, Social Cognition, T ransfers Control, Sphincter Control, Self-Care, Communication, and Endurance; and she had good Locomo tion, Safety Awareness, Balance, Social Cognition, Transfers Control, Self-Care, Communication, Sphin cter Control, and Endurance. Currently, she has deficits of Locomotion, Safety Awareness, Balance, Transfers Control, Self-Care, a nd Endurance. Pt. is now referred to [facility] for acute in-patient rehabilitation in order to maximize patient's functional independence in activities of daily living, strength, ROM, and mobi lity. Patient has realistic goal of being discharged at assistance level 6-Florentino to reside at Home with Fam sasha/Relatives. Bharati Bravo is a 79 year old female that lives in a single ayde house with her . She was independent with ADLs and IADLs and ambulatory without assistive device. On 05/14/2019, patient right sided weakness and numbness and was admitted to [facility] and treated. She is now medically stable but in need of 24-hour nursing, doctor supervision and oversite while receivi ng active and ongoing intensive (PT, expected to participate in 3hours of therapy a day/15 hours per week and receive care with an intensive interdisciplinary approach. MEDICATION ALLERGIES: No Known Drug Allergies (NKDA) ENVIRONMENTAL ALLERGIES: None Known - Substance Allergies None Known - Other Allergies None Known PAST MEDICAL HISTORY: Anemia CKD STAGE 4 COPD DM GERD Gout HTN Hyperlipidemia Hypothyroidism LLE DVT FAMILY HISTORY: Family history is not contributory. SOCIAL HISTORY: - Home Living Family/Relatives REVIEW OF SYSTEMS: - Gen No Chills Fatigue No Fever - Eyes No Double Vision No itchiness - ENMT No Difficulty Swallowing - CVS No Chest Discomfort No Chest Pain Fatigue No Weight Gain - Resp No Cough No Shortness of Breath - GI Continent No Abdominal Pain No Constipation No Diarrhea - Continent No Kidney Pain No Painful Urination No Urinary Urgency - MSK No Joint Pain Muscle Cramps Stiffness - Skin No Itching No Rash No Suspicious Lesions - Neuro Coordination Difficulty No Difficulty with Concentration Memory Loss No Seizures Weakness - Psych No Anxiety No Depression No HIV Exposure No Persistent Infections No Seasonal Allergies - Endo No Cold/Heat Intolerance No Excessive Hunger No Excessive Thirst No Excessive Urination PHYSICAL EXAM - Gen Alert and awake Lying in bed No apparent distress Oriented to: person, time, and place - Skin No skin breakdown. Normacephalic - Eyes No abnormalities - ENMT No abnormalities - Neck No abnormalities No cervical adenopathy - CVS RRR - Chest No abnormalities - Resp Clear to auscultation - Abd Soft - GI Non distended Deferred - No abnormalities - Ext No significant edema - MSK 4+/5 weakness in right upper and lower extremity - Neuro 4/5 strength right upper and lower extremities. - Psych No abnormalities VITAL SIGNS Temperature: 98 F SBP/DBP: 118/52 Pulse: 68 Resp: 18 NURSING: - Shower allowing shower - Bladder care per protocol - Skin care per protocol PRECAUTIONS: - Weight Bearing Precaution WBAT right LE ACTIVITIES OOB only with supervision QI SCORES: - Self-Care A. Eating 05-Setup or clean-up assistance B. Oral hygiene 05-Setup or clean-up assistance C. Toileting hygiene 03-Partial/moderate assistance E. Shower/bathe self 03-Partial/moderate assistance F. Upper body dressing 04-Supervision or touching assistance G. Lower body dressing 03-Partial/moderate assistance H. Putting on/taking off footwear 03-Partial/moderate assistance - Mobility A. Roll left and right 04-Supervision or touching assistance B. Sit to lying 04-Supervision or touching assistance C. Lying to sitting on side of bed 04-Supervision or touching assistance D. Sit to stand 04-Supervision or touching assistance E. Chair/fae-ry-akdgy transfer 03-Partial/moderate assistance F. Toilet transfer 03-Partial/moderate assistance G. Car transfer 88-Not attempted due to medical condition or safety concerns I. Walk 10 feet 04-Supervision or touching assistance J. Walk 50 feet with two turns 88-Not attempted due to medical condition or safety concerns K. Walk 150 feet 04-Supervision or touching assistance L. Walking 10 feet on uneven surfaces 88-Not attempted due to medical condition or safety concerns M. 1 step (curb) 88-Not attempted due to medical condition or safety concerns N. 4 steps 88-Not attempted due to medical condition or safety concerns O. 12 steps 88-Not attempted due to medical condition or safety concerns P. Picking up object 88-Not attempted due to medical condition or safety concerns R. Wheel 50 feet with two turns 88-Not attempted due to medical condition or safety concerns S. Wheel 150 feet 88-Not attempted due to medical condition or safety concerns - Bladder and Bowel Bladder continence 0-Always continent Bowel continence 0-Always continent - Endurance Fair - Balance Fair - Safety Awareness Fair CURRENT FUNC. DEFICITS: Self-Care, Mobility, Endurance, Balance, and Safety Awareness MEDICATIONS: - Other See attached MAR (Medication Administration Record) ASSESSMENT: Pt. is a 79 yo Right-handed white female.On 05/14/2019 Pt. presented to [facility] with sudden onset of right-side weakness.On 05/14/2019 she was admitted to [facility] with diagnosis LEFT MCA INFARCT.Her impairment category is Stroke 01 - Right Body (Left Brain) (01.2).Pre-morbidly, Pt. was independent/mod-I in Locomotion, Safety Awareness, Balance, Social Cogni tion, Transfers Control, Sphincter Control, Self-Care, Communication, and Endurance; and she had good Locomotion, Safety Awareness, Balance, Social Cognition, Transfers Control, Self-Care, Communication , Sphincter Control, and Endurance.Currently, she has deficits of Locomotion, Safety Awareness, Kiley ce, Transfers Control, Self-Care, and Endurance.Pt. is now referred to [facility] for acute in-patient rehabilitation in order to maximize patient's functional independence in act ivities of daily living, strength, ROM, and mobility.- Rehab Goal Patient has realistic goal of being discharged at assistance level 6-Florentino to reside at Home with Fam sasha/Relatives. Bharati Bravo is a 79 year old female that lives in a single ayde house with her . She was independent with ADLs and IADLs and ambulatory without assistive device. On 05/14/2019, patient right sided weakness and numbness and was admitted to [facility] and treated. She is now medically stable but in need of 24-hour nursing, doctor supervision and oversite while receivi ng active and ongoing intensive (PT, expected to participate in 3hours of therapy a day/15 hours per week and receive care with an intensive interdisciplinary approach.REHAB PLAN: for Dementia, TBI, Stroke, or others - Physical Therapy Gait dysfunction - to improve, our physical therapists will perform initial evaluation of pt's status upon admission and devise an individualized program for Gait Training, and Wheel Chair mobility Inability to transfer - to improve, our physical therapists will perform initial evaluation of pt's s tatus upon admission and devise an individualized program for Bed mobility Need for home safety evaluation - to improve, our physical therapists will perform initial evaluation of pt's status upon admission and devise an individualized program for Home Evaluation Need in caregiver upon discharge - to improve, our physical therapists will perform initial evaluatio n of pt's status upon admission and devise an individualized program for Caregiver Training New precaution - to improve, our physical therapists will perform initial evaluation of pt's status u bob admission and devise an individualized program for Patient precaution education Edema - to improve, our physical therapists will perform initial evaluation of pt's status upon admi ssion and devise an individualized program for Elevation Training, and Lymphedema Therapy Poor balance - to improve, our physical therapists will perform initial evaluation of pt's status upo n admission and devise an individualized program for Balance Training Poor endurance - to improve, our physical therapists will perform initial evaluation of pt's status u bob admission and devise an individualized program for Endurance Training Weakness - to improve, our physical therapists will perform initial evaluation of pt's status upon ad mission and devise an individualized program for Aquatic Therapy, Neuromuscular Reeducation, and Stre ngthening Achieving independence - to improve, our physical therapists will perform initial evaluation of pt's status upon admission and devise an individualized program for Community Reintegration Activities - Occupational Therapy ADL deficits - to improve, our occupation therapists will perform initial evaluation of pt's status u bob admission and devise an individualized program for Bathing, Bed mobility, Community Reintegration , Cooking, Dressing, Eating, Fine Motor Skills, Grooming, Homemaking, Kitchen Mobility, Laundry, Michelle ent Education, Safety Awareness, Splinting - Positioning, Transfers(Toilet, Tub, Shower), and Wheel C hair Management Need for care mgr - to improve, our occupation therapists will perform initial evaluation of pt's s tatus upon admission and devise an individualized program for Caregiver Training Weakness - to improve, our occupation therapists will perform initial evaluation of pt's status upon admission and devise an individualized program for Aquatic Therapy, Balance, Endurance, UE ROM, and U E strengthening MEDICAL PLAN: - Diet Type Start Regular - Diet - Liquid Texture Start Regular - Tube Feed Start N/A - Bladder care per protocol - Weight Bearing Precaution WBAT right LE - Skin care per protocol - Other See attached MAR (Medication Administration Record) - Diet - Solid Texture Regular - Shower shower DISCHARGE PLAN: - Estimated Length of Stay (days) 17. - Consensus on plan Discharge plan has been discussed with primary caregiver. Patient/Family is in agreement with the nisa n. Primary caregiver is in agreement with the plan. - Patient/Family Goals Return home with assistance. - Planned Living Setting Upon Discharge Home, to live with Family/Relatives. Transitional Living. SIGNATURE PANEL: (ARTIFICIAL LIMB FITTER)
--- NOTE | 2019-05-30 17:35 | PAPE ---
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 Juanjo Mccall M.D. ADMISSION DIAGNOSIS: LEFT MCA INFARCT ONSET DATE 05/14/2019 SECONDARY/COMORBID DIAGNOSES TIERED: - N/A COPD DM LLE DVT GERD Gout Hyperlipidemia HTN Hypothyroidism CKD STAGE 4 Anemia POST-ADMISSION FUNCTIONAL/MEDICAL STATUS: - Bladder Same accident frequency: Ind - No accidents in the past 7 days - Bowel Same accident frequency: Ind - No accidents in the past 7 days - Walking Same score based on distance walked: 0(N/A) Same score based on distance walked: 3(>=150ft) - Wheelchair Same score based on distance traveled: 0(N/A) STATUS CHANGE EVALUATION: No change in Functional or Medical Status is identified compared with Pre-Admission screening. PATIENT NEEDS CLOSE MEDICAL SUPERVISION BY A REHABILITATION PHYSICIAN FOR: Coordination of Treatment Team DVT Management Medical and Co-Morbidity Management PATIENT REQUIRES 24X7 REHAB NURSING FOR MEDICAL AND FUNCTIONAL MGT. OF THE FOLLOWING DEFICITS: Disease Management Medication Management Patient/Family Education Providing Safe Environment PATIENT REQUIRES INTENSIVE, COORDINATED INTERDISCIPLINARY APPROACH TO REHAB: Arranging Home Equipment/Services Discharge Planning Family Intervention/Training Climbing Guide/Case Management LIST OF IDENTIFIED AND POTENTIAL PROBLEMS: Alteration in leisure activities Bladder, Incontinence Bowel, Incontinence DVT, Actual or Potential Infection, Actual or Potential Mobility Impaired Pain, Alteration in Comfort Self Care Deficit Skin Integrity, Actual or Potential Urinary Tract Infection (UTI), Actual or Potential RISK FOR COMPLICATIONS - COPD Acute Resp failure. Pneumonia. Resp. Arrest. - GERD Alteration in sleep. Aspiration. Dehydration. Malnutrition. Pain. INTERVENTIONS - COPD 02 sats. Medications. Nebulizers. Oxygen. Resp. therapy. X-rays. - GERD Altered diet. Elevation of head of bed. Medications. Nausea/vomiting. Nighttime food/fluid restrictio ns. Nutrition. PATIENT COULD BE AT RISK FOR COMPLICATIONS FROM ADVERSE MEDICAL CONDITIONS DUE TO HIS/HER COMORBIDITI ES AND THE RIGORS OF THE INTENSIVE REHABILLITATION PROGRAM. METHODS OR INTERVENTIONS TO AVOID COMPLIC ATIONS INCLUDE: - Deep Vein Thrombosis (DVT) Prophylaxis therapy for prevention . Sequential Compression Device (SCD). MONTY [place]. - Bleeding Stroke patients assessed for lethargy or change in status. - Infection Clinical staff to assess and manage the signs and symptoms of infection including fever, redness, war mth, etc. - Urinary Tract Infection - Aspiration Clinical staff will assess and manage coughing, drooling, congestion. - Falls Patient will be evaluated for Fall Precautions and will be placed on Fall Precautions as indicated pe r protocol. - Skin Breakdown Nursing will assess skin daily using assessment tool and will place on Skin Breakdown Precautions as indicated per protocol. - Pain Clinical staff may employ non-medication methods such as massage, distraction, decrease stimulus, etc . as needed. Clinical staff will assess patient's pain level every shift per protocol to assess and e nsure pain management effectiveness. Medications will be given and the pain level re-assessed. PRELIMINARY PLAN OF CARE: - Physical Therapy Patient needs Physical Therapy for a daily minimum of 1.5 hours at least 5 out of 7 days, to improve: Mobility, Strengthening, Transfers, Stretching, ROM, Endurance, Ability to manage stairs, Gait, and Balance. - Speech Therapy Patient needs Speech Therapy for a daily minimum of 0.5 hours at least 5 out of 7 days, to improve: S wallowing, Cognition, Language Skills, and Compensatory Strategies. - Rehabilitation Nursing Patient requires 24x7 Rehabilitation Nursing for: Pain Issues, Identifying and preventing risk factor s, Monitoring and reporting current medical conditions, Assisting with ambulation and transfer, Shabbir ting with all ADL-s, Teaching patients about disease process and medications, Family teaching, Provid ing safe environment, Bowel and Bladder Issues, Skin Integrity, and Medication Management. Patient needs Climbing Guide and/or Case Management for: Discharge Planning, Arranging Home Equipmen t or Services, and Family Interventions. - Dietary and Nutrition Services Patient needs Dietary and Nutrition Services for: Adequate Nutrition, Nutritional Supplements, and Nu tritional Education. - Occupational Therapy Patient needs Occupational Therapy for a daily minimum of 1.5 hours at least 5 out of 7 days, to impr ove Activities of Daily Living, including: Eating, Grooming, Bathing, Dressing, Toileting, Toilet Tra nsfers, Community Reintegration, Higher functional activities, Adaptive Equipment, Splinting, Househo ld Tasks, and Other activities as determined. QI SCORES: - Self-Care A. Eating 05-Setup or clean-up assistance B. Oral hygiene 05-Setup or clean-up assistance C. Toileting hygiene 03-Partial/moderate assistance E. Shower/bathe self 03-Partial/moderate assistance F. Upper body dressing 04-Supervision or touching assistance G. Lower body dressing 03-Partial/moderate assistance H. Putting on/taking off footwear 03-Partial/moderate assistance - Mobility A. Roll left and right 04-Supervision or touching assistance B. Sit to lying 04-Supervision or touching assistance C. Lying to sitting on side of bed 04-Supervision or touching assistance D. Sit to stand 04-Supervision or touching assistance E. Chair/hzi-al-ucsro transfer 03-Partial/moderate assistance F. Toilet transfer 03-Partial/moderate assistance G. Car transfer 88-Not attempted due to medical condition or safety concerns I. Walk 10 feet 04-Supervision or touching assistance J. Walk 50 feet with two turns 88-Not attempted due to medical condition or safety concerns K. Walk 150 feet 04-Supervision or touching assistance L. Walking 10 feet on uneven surfaces 88-Not attempted due to medical condition or safety concerns M. 1 step (curb) 88-Not attempted due to medical condition or safety concerns N. 4 steps 88-Not attempted due to medical condition or safety concerns O. 12 steps 88-Not attempted due to medical condition or safety concerns P. Picking up object 88-Not attempted due to medical condition or safety concerns R. Wheel 50 feet with two turns 88-Not attempted due to medical condition or safety concerns S. Wheel 150 feet 88-Not attempted due to medical condition or safety concerns - Bladder and Bowel Bladder continence 0-Always continent Bowel continence 0-Always continent - Endurance Fair - Balance Fair - Safety Awareness Fair POTENTIAL FUNCTIONAL GOALS FOR PATIENT TO ACHIEVE BY DISCHARGE: - Safety Precaution Patient will remain free from falls or injury at time of discharge. - Bed Mobility Patient will perform bed mobility at 4-Marco level of assistance. - Transfers Patient will complete transfers from bed to chair at 4-Marco level of assistance. - Mobility Patient will ambulate 150 ft with 4-Marco level of assistance with RW. PATIENT REHAB POTENTIAL Ban BRAVO is able and expected to receive 3 hours of individualized therapy daily on at least 5 of chema ry 7 days BJuan BRAVO's prognosis for significant practical improvement within a reasonable period of time appears Good Expected level of measurable improvement will be of a practical value to B. SHELLY's functional capaci ty or adaptations to impairments Has a viable Discharge Plan Medically appropriate; condition is sufficiently stable to participate in intensive rehab program DISCHARGE PLAN: - Estimated Length of Stay (days) 17. - Consensus on plan Discharge plan has been discussed with primary caregiver. Patient/Family is in agreement with the nisa n. Primary caregiver is in agreement with the plan. - Patient/Family Goals Return home with assistance. - Planned Living Setting Upon Discharge Home, to live with Family/Relatives. Transitional Living. CONCLUSION ON REHABILITATION NECESSITY: I have evaluated patient's pre-admission functional status and, comparing it to the patient's post-ad mission functional status now, I conclude that the pre-admission assessment was accurate. Patient's c ondition on admission supports the medical necessity of admission to [facility]. It is safe to proceed with patient's therapy program. 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
--- NOTE | 2019-05-30 18:12 | P.HP ---
Certification for Inpatient Patient admitted to: Inpatient With expected LOS: >2 Midnights Patient will require the following post-hospital care: Rehabilitation Practitioner: I am a practitioner with admitting privileges, knowledge of patient current condition, hospital course, and medical plan of care. Services: Services provided to patient in accordance with Admission requirements found in Title 42 Section 412.3 of the Code of Federal Regulations Patient History Date of Service: 05/30/19 Reason for admission: WEAKNESS History of Present Illness: MS. BRAVO HAS HAD CAROTID ARTERY STENOSIS STENT FOR RECURRENT TIA. 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 SHE WILL GET SURGERY FOR THAT TWO MONTHS FROM NOW. SHE WAS SENT TO DR. CARRASCO FOR ANEURYSM IT WAS SYMPTOMATIC CAUSING HER TO HAVE DIZZINESS AND SYNCOPE. BUT LATELY SHE HAD TWO EPISODES OF TIA WITH HEMIPARESIS AND SHE WAS SENT TO [facility]. SHE WAS FOUND TO HAVE STENOSIS AND HAD STENT FOR IT DONE BY DR. CARRASCO. SHE IS NOW SENT TO REHAB HERE FOR PT SHE REMAINED GENERALLY WEAK. Allergies codeine phosphate [From Tylenol-Codeine #3] Allergy (Mild, Verified 04/05/17 23: 42) Rash morphine Allergy (Mild, Verified 04/05/17 23:42) Hives/Rash acetaminophen [From Darvocet-N 100] Allergy (Verified 04/05/17 23:42) Rash codeine Allergy (Verified 04/05/17 23:42) Rash meperidine HCl [From Demerol] Allergy (Verified 04/06/17 12:12) Unknown propoxyphene napsylate [From Darvocet-N 100] Allergy (Verified 04/05/17 23:42) Nausea/Vomiting BACLOFEN Allergy (Severe, Uncoded 04/05/17 23:42) Unknown Hydrocodone-Acetaminophen Allergy (Severe, Uncoded 04/05/17 23:42) Itching/Hives/Rash Tape Allergy (Severe, Uncoded 04/05/17 23:42) Rash plastic Allergy (Uncoded 04/05/17 23:42) Unknown Home Medications: Gabapentin [Neurontin*] 300 mg PO TID 02/14/16 Amlodipine [Norvasc*] 5 mg PO DAILY 12/02/16 allopurinoL [Zyloprim*] 100 mg PO DAILY 12/02/16 cloNIDine HCL [Catapres*] 0.3 mg PO TID PRN 12/02/16 Rivaroxaban [Xarelto] 20 mg PO DAILY 04/05/17 Albuterol Sulfate [Proair Hfa] 2 puff IH QID 03/22/19 Azilsartan Medoxomil [Edarbi] 80 mg PO DAILY 03/22/19 Colchicine 0.6 mg PO Q4HP PRN 03/22/19 Hydralazine HCl [Apresoline] 100 mg PO BID 03/22/19 Metformin ER [Glucophage ER*] 500 mg PO PCS 03/22/19 Ranitidine [Zantac*] 150 mg PO ACHS 03/22/19 Torsemide [Demadex*] 10 mg PO DAILY 03/22/19 Nebivolol HCl [Bystolic] 10 mg PO BID 05/29/19 - Past Medical/Surgical History Has patient received pneumonia vaccine in the past: No Diabetic: No -: hypertension -: hyperlipidemia -: hypothyroid -: gout -: appendectomy -: cholecystectomy -: jaqueline -: appe -: knee surg x2 -: wrist surg x3 -: surg on chin, not sure what it was -: L Knee replacement -: appendectomy -: Cholecystectomy - Family History Brother -: Heart disease, Hypertension, Diabetes, Liver disease, Kidney disease Father -: Lung disease Mother -: Heart disease, Hypertension, Blood disorders - Social History Smoking Status: Former smoker Alcohol use: No CD- Drugs: No Caffeine use: Yes Place of Residence: Home Review of Systems 10-point ROS is otherwise unremarkable General: Weakness, Malaise Physical Examination - Vital Signs Temperature: 99.4 F Blood Pressure: 120/61 Pulse: 64 Respirations: 18 Pulse Ox (%): 95 - Physical Exam General: Mild distress, Obese HEENT: Atraumatic, PERRLA, Mucous membr. moist/pink, EOMI, Sclerae nonicteric Neck: Supple, 2+ carotid pulse no bruit, No LAD, Without JVD or thyroid abnormality Respiratory: Clear to auscultation bilaterally, Normal air movement Cardiovascular: Regular rate/rhythm, Normal S1 S2 Gastrointestinal: Normal bowel sounds, No tenderness Musculoskeletal: No tenderness Integumentary: No rashes Neurological: Normal speech, Abnormal gait Lymphatics: No axilla or inguinal lymphadenopathy - Studies Laboratory Data (last 24 hrs) 05/30/19 05:36: Sodium 142, Potassium 4.1, BUN 48 H, Creatinine 1.54 H, Glucose 127 H, Magnesium 2.3 05/30/19 05:36: WBC 15.6 H, Hgb 12.4, Hct 38.1, Plt Count 337 Assessment and Plan - Problems (Diagnosis) (1) Diabetes Current Visit: Yes Status: Chronic Qualifiers: Diabetes mellitus type: type 2 Diabetes mellitus custodial insulin use: without superintendent terminal use Diabetes mellitus complication status: with circulatory complication Diabetes mellitus complication detail: with other circulatory complications Qualified Code(s): E11.59 - Type 2 diabetes mellitus with other circulatory complications (2) Dehydration Current Visit: Yes Status: Chronic Plan: REDUCE DIURETIC TO EVERY OTHER DAY AND ALSO K. (3) Fever Onset Date: 04/07/17 Current Visit: No Status: Acute Plan: UTI START WITH AUGMENTIN. AGREE. Qualifiers: Encounter type: initial encounter (4) Weakness Onset Date: 04/07/17 Current Visit: No Status: Chronic Plan: HAS HAD CERVICAL RADICULOPATHY. TIA NOW TWICE. WILL CHECK REPORTS FROM [facility]. RESUME MEDS AND PT. (5) Atrial fibrillation Current Visit: No Status: Chronic (6) Hypertension Onset Date: 05/20/15 Current Visit: No Status: Chronic Plan: CONT MEDS AND FU DAILY. Qualifiers: Hypertension type: essential hypertension - Advance Directives Does patient have a Living Will: No Does patient have a Durable POA for Healthcare: No
[2019-05-30] MEDS: CRANBERRY FRUIT EXTRACT 200 MG CAP PO SCH (19:18)
[2019-05-30] MEDS: AMOX/K CLAV 875 MG TAB PO SCH (19:19)
[2019-05-30] MEDS: MELATONIN 5 MG TABLET PO SCH (19:19)
[2019-05-30] MEDS: ATORVASTATIN 80 MG TAB PO SCH (19:20)
[2019-05-30] MEDS: GLUCERNA SHAKE 237 ML CAN PO SCH (19:21)
[2019-05-30] MEDS: IPRATROPIUM BROM 0.5MG/2.5ML NEB PRN (20:20)
[2019-05-31] MEDS: PANTOPRAZOLE 40MG TABLET PO SCH (06:03)
[2019-05-31] MEDS: LEVOTHYROXINE SOD 0.05 MG TABLET PO SCH (06:03)
[2019-05-31] MEDS: INSULIN -REGULAR HUMAN 50 UNIT/0.5 ML ML SQ SCH ×4 (07:19→20:59)
[2019-05-31] MEDS: TICAGRELOR 90 MG TABLET PO SCH ×2 (07:56→19:52)
[2019-05-31] MEDS: GLUCERNA SHAKE 237 ML CAN PO SCH ×2 (08:00→20:05)
[2019-05-31] MEDS: VALSARTAN 160 MG TAB PO SCH (08:00)
[2019-05-31] MEDS: LIDOCAINE 4% PATCH TOP SCH (08:00)
[2019-05-31] MEDS: CRANBERRY FRUIT EXTRACT 200 MG CAP PO SCH ×2 (08:04→19:53)
[2019-05-31] MEDS: HYDRALAZINE HCL 25 MG TABLET PO SCH ×3 (08:04→20:58)
[2019-05-31] MEDS: predniSONE 20 MG TAB PO SCH (08:04)
[2019-05-31] MEDS: TORSEMIDE 20 MG TAB PO SCH (08:04)
[2019-05-31] MEDS: allopurinoL 100 MG TAB PO SCH (08:04)
[2019-05-31] MEDS: METFORMIN HCL 500 MG TAB PO SCH (08:04)
[2019-05-31] MEDS: RANITIDINE 150 MG TABLET PO SCH ×2 (08:05→19:55)
[2019-05-31] MEDS: TAMSULOSIN 0.4 MG SR CAP PO SCH (08:05)
[2019-05-31] MEDS: ASPIRIN 81 MG CHEWABLE TABLET PO SCH (08:05)
[2019-05-31] MEDS: GUAIFENESIN 600 MG SA TAB PO SCH ×2 (08:05→19:55)
[2019-05-31] MEDS: FERROUS SULFATE 325 MG TAB PO SCH (08:06)
[2019-05-31] MEDS: AMOX/K CLAV 875 MG TAB PO SCH ×2 (08:06→19:52)
[2019-05-31] MEDS: cloNIDine HCL 0.1 MG TAB PO SCH ×2 (08:06→19:53)
[2019-05-31] MEDS: GABAPENTIN 300 MG CAP PO SCH ×3 (08:06→20:58)
[2019-05-31] MEDS: ACETAMINOPHEN 500 MG TAB PO PRN (08:06)
[2019-05-31] MEDS: NEBIVOLOL HCL 5 MG TAB PO SCH ×2 (08:07→19:52)
--- NOTE | 2019-05-31 10:23 | EKG ---
Test Date: 2019-05-30 Test Time: 14:32:28 Family Day Carer: ANTHONY MEASUREMENT RESULTS: Intervals: Rate: 66 WI: 124 QRSD: 144 QT: 486 QTc: 509 [place]: P: 76 WI: 124 QRS: -25 T: 41 INTERPRETIVE STATEMENTS: Normal sinus rhythm with sinus arrhythmia Right bundle branch block Voltage criteria for left ventricular hypertrophy Abnormal ECG Compared to ECG 05/14/2019 11:48:42 Left ventricular hypertrophy now present Left-axis deviation no longer present Electronically Signed On 05-31-19 10:22:27 COLLATERAL SPECIALIST by Abhijit Joseph
[2019-05-31] MEDS ORDERED: ONDANSETRON 4 MG (ODT) TAB PO PRN (10:37)
--- NOTE | 2019-05-31 11:22 | RAD REPORT ---
EXAM DESCRIPTION: CT - Head Brain Wo Cont - 05/31/2019 10:59 am CLINICAL HISTORY: Headache COMPARISON: None TECHNIQUE: Computed axial tomography of the head was obtained. IV contrast was not requested. All CT scans are performed using dose optimization technique as appropriate and may include automated exposure control or mA/KV adjustment according to patient size. FINDINGS: An intracranial bleed is not seen . Basilar tip aneurysm unchanged The ventricles are normal in caliber. No extra-axial fluid collection is noted. Mild to moderate low-density areas within periventricular, deep and subcortical white matter likely r epresent ischemic changes secondary to small vessel disease. Fluid within the sinuses/ mastoids is not seen. IMPRESSION: 8 millimeter basilar tip aneurysm unchanged No acute intracranial abnormality is seen. If patient's symptoms persist MRI of the brain would be r ecommended.
--- NOTE | 2019-05-31 14:12 | RAD REPORT ---
EXAM DESCRIPTION: RAD - Chest Single View - 05/31/2019 2:05 pm CLINICAL HISTORY: change in status; increased cough; WBCs elevated Chest pain. COMPARISON: Chest Single View dated 05/30/2019; Chest Single View dated 05/14/2019; Chest Single View d ated 03/21/2019; Chest Single View dated 12/27/2018 FINDINGS: Portable technique limits examination quality. The lungs are grossly clear. The heart is upper limit of normal in size. No displaced fractures. IMPRESSION: No acute intrathoracic process suspected.
[2019-05-31 14:16] LABS: Arterial Blood Carboxyhemoglob 1.4 % (0-1.5)
[2019-05-31 14:17] LABS: Blood Gas Oxyhemoglobin 91.6 % (94-97)
--- NOTE | 2019-05-31 17:34 | PN ---
Subjective: Ms. Lancaster is doing great this morning. Later on, nurse called me that she was having so me nausea and dizziness. Dr. Mccall ordered a stat CAT scan, which showed negative findings for an y kind of hemorrhage. Objective: Vital Signs: Blood pressure anywhere from 100 systolic to 150 systolic now. Chest: Clear. Heart: Regular. Abdomen: No guarding, no rebound, no rigidity. Laboratory Data: White count 15,000, BUN 48, creatinine 1.54. Assessment/plan: 1.Status post carotid stenosis, stent placement, did well with the surgery. Generally, she is weak. Her left side is weaker than the right side. Left minimally weak. Continue to work on PT. 2.High blood pressure, control was very difficult until now. We will have to modify medications, lo oks like BP is reducing on its own. 3.Prednisone is given to her from [facility]. I reviewed the record of [place] admission. I would see no signs of why she was placed on prednisone. I called Dr. Indra Oconnor and he has no idea wh y she is on prednisone. So, we will be stopping prednisone. She was not on steroids before. I see no signs of any acute illness requiring steroids. I see no signs of temporal arteritis or PMR, so it would be prudent just to stop the prednisone. RVD/MODL Voice ID: [id number] Report ID: [id number]
--- NOTE | 2019-05-31 17:48 | R.PN ---
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 Pt denied any depression. 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 She had nausea with dizziness. Head CT scan was negative for acute changes. ABG showed slightly low p O2 with normal pCO2. Started O2 2L via nasal cannula. Lactate mildly elevated to 2.1 and procalcitoni n is normal at < 0.05. She required moderate assistance for comprehension. Verbal problem solving done with 80% accuracy. Pr opelled wheelchair 325' with standby assistance. Ambulated 500' with rolling walker and contact guard assistance. VITAL SIGNS Temperature: 98 F SBP/DBP: 118/52 Pulse: 68 Resp: 18 MEDICATION ALLERGIES: No Known Drug Allergies (NKDA) ENVIRONMENTAL ALLERGIES: None Known - Substance Allergies None Known - Other Allergies None Known NURSING: - Shower allowing shower - Bladder care per protocol - Skin care per protocol PRECAUTIONS: - Weight Bearing Precaution WBAT right LE ACTIVITIES OOB only with supervision THERAPIES: - Occupational Therapy Cognitive Retraining. Visual Perceptual Training. - Dietary and Nutrition Adequate Nutrition. Nutritional Education. Nutritional Supplements. - Speech Therapy Cognitive Training. Expressive Language Skills. Memory Strategies. Receptive Language Skills. Speech Intelligibility Training. PHYSICAL EXAM - Gen Alert and awake Lying in bed No apparent distress Oriented to: person, time, and place - Skin No skin breakdown. Normacephalic - Eyes No abnormalities - ENMT No abnormalities - Neck No abnormalities No cervical adenopathy - CVS RRR - Chest No abnormalities - Resp Clear to auscultation - Abd Soft - GI Non distended Deferred - No abnormalities - Ext No significant edema - MSK 4+/5 weakness in right upper and lower extremity - Neuro 4/5 strength right upper and lower extremities. - Psych No abnormalities ASSESSMENT: Pt. is a 79 yo Right-handed white female.On 05/14/2019 Pt. presented to [facility] with sudden onset of right-side weakness.On 05/14/2019 she was admitted to [facility] nter with diagnosis LEFT MCA INFARCT.Her impairment category is Stroke 01 - Right Body (Left Brain) (01.2).Pre-morbidly, Pt. was independent/mod-I in Locomotion, Safety Awareness, Balance, Social Cogni tion, Transfers Control, Sphincter Control, Self-Care, Communication, and Endurance; and she had good Locomotion, Safety Awareness, Balance, Social Cognition, Transfers Control, Self-Care, Communication , Sphincter Control, and Endurance.Currently, she has deficits of Locomotion, Safety Awareness, Kiley ce, Transfers Control, Self-Care, and Endurance.Pt. is now referred to [facility] for acute in-patient rehabilitation in order to maximize patient's functional independence in act ivities of daily living, strength, ROM, and mobility.- Rehab Goal Patient has realistic goal of being discharged at assistance level 6-Florentino to reside at Home with Fam sasha/Relatives. MDM/PLAN: - Physical Therapy Gait dysfunction - to improve, our physical therapists will perform initial evaluation of pt's statu s upon admission and devise an individualized program for Gait Training, and Wheel Chair mobility Inability to transfer - to improve, our physical therapists will perform initial evaluation of pt's status upon admission and devise an individualized program for Bed mobility Need for home safety evaluation - to improve, our physical therapists will perform initial evaluatio n of pt's status upon admission and devise an individualized program for Home Evaluation Need in caregiver upon discharge - to improve, our physical therapists will perform initial evaluati on of pt's status upon admission and devise an individualized program for Caregiver Training New precaution - to improve, our physical therapists will perform initial evaluation of pt's status upon admission and devise an individualized program for Patient precaution education Edema - to improve, our physical therapists will perform initial evaluation of pt's status upon admis rodolfo and devise an individualized program for Elevation Training, and Lymphedema Therapy Poor balance - to improve, our physical therapists will perform initial evaluation of pt's status up on admission and devise an individualized program for Balance Training Poor endurance - to improve, our physical therapists will perform initial evaluation of pt's status upon admission and devise an individualized program for Endurance Training Weakness - to improve, our physical therapists will perform initial evaluation of pt's status upon a dmission and devise an individualized program for Aquatic Therapy, Neuromuscular Reeducation, and Str engthening Achieving independence - to improve, our physical therapists will perform initial evaluation of pt's status upon admission and devise an individualized program for Community Reintegration Activities - Occupational Therapy ADL deficits - to improve, our occupation therapists will perform initial evaluation of pt's status upon admission and devise an individualized program for Bathing, Bed mobility, Community Reintegratio n, Cooking, Dressing, Eating, Fine Motor Skills, Grooming, Homemaking, Kitchen Mobility, Laundry, Pat ient Education, Safety Awareness, Splinting - Positioning, Transfers(Toilet, Tub, Shower), and Wheel Chair Management Need for attending ambulatory care - to improve, our occupation therapists will perform initial evaluation of pt's status upon admission and devise an individualized program for Caregiver Training Weakness - to improve, our occupation therapists will perform initial evaluation of pt's status upon admission and devise an individualized program for Aquatic Therapy, Balance, Endurance, UE ROM, and UE strengthening - Other See attached MAR (Medication Administration Record) - Diet Type Continue Regular - Diet - Liquid Texture Continue Regular - Tube Feed Continue N/A - Bladder care per protocol - Weight Bearing Precaution WBAT right LE - Skin care per protocol - Diet - Solid Texture Continue Regular - Shower allowing shower for Dementia, TBI, Stroke, or others FUNCTIONAL STATUS: UPDATED AT WEEKLY TEAM CONFERENCE - Bladder Same accident frequency: 7-Ind - No accidents in the past 7 days - Bowel Same accident frequency: 7-Ind - No accidents in the past 7 days - Walking Same score based on distance walked: 0(N/A) Same score based on distance walked: 3(>=150ft) - Wheelchair Same score based on distance traveled: 0(N/A) FUNCTIONAL STATUS: - Self-Care A. Eating Florentino B. Grooming Florentino C. Bathing sup D. Dressing - Upper sup E. Dressing - Lower Marco F. Toileting sup - Sphincter Control G. Bladder control sup H. Bowel control Florentino - Transfers Control I. Bed/Chair/Wheelchair Marco J. Toilet Marco K. Tub/Shower modA - Locomotion L. Walk/Wheelchair (B) modA M. Stairs ADNO - Communication N. Comprehension (B) sup O. Expression (B) Marco - Social Cognition P. Social Interaction Florentino Q. Problem Solving sup R. Memory sup - Endurance Fair - Balance Fair - Safety Awareness Fair QI SCORES: - Self-Care A. Eating 05-Setup or clean-up assistance B. Oral hygiene 05-Setup or clean-up assistance C. Toileting hygiene 03-Partial/moderate assistance E. Shower/bathe self 03-Partial/moderate assistance F. Upper body dressing 04-Supervision or touching assistance G. Lower body dressing 03-Partial/moderate assistance H. Putting on/taking off footwear 03-Partial/moderate assistance - Mobility A. Roll left and right 04-Supervision or touching assistance B. Sit to lying 04-Supervision or touching assistance C. Lying to sitting on side of bed 04-Supervision or touching assistance D. Sit to stand 04-Supervision or touching assistance E. Chair/[id number] transfer 03-Partial/moderate assistance F. Toilet transfer 03-Partial/moderate assistance G. Car transfer 88-Not attempted due to medical condition or safety concerns I. Walk 10 feet 04-Supervision or touching assistance J. Walk 50 feet with two turns 88-Not attempted due to medical condition or safety concerns K. Walk 150 feet 04-Supervision or touching assistance L. Walking 10 feet on uneven surfaces 88-Not attempted due to medical condition or safety concerns M. 1 step (curb) 88-Not attempted due to medical condition or safety concerns N. 4 steps 88-Not attempted due to medical condition or safety concerns O. 12 steps 88-Not attempted due to medical condition or safety concerns P. Picking up object 88-Not attempted due to medical condition or safety concerns R. Wheel 50 feet with two turns 88-Not attempted due to medical condition or safety concerns S. Wheel 150 feet 88-Not attempted due to medical condition or safety concerns - Bladder and Bowel Bladder continence 0-Always continent Bowel continence 0-Always continent - Endurance Fair - Balance Fair - Safety Awareness Fair 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
[2019-05-31] MEDS: IPRATROPIUM BROM 0.5MG/2.5ML NEB PRN (20:20)
[2019-05-31] MEDS: ATORVASTATIN 80 MG TAB PO SCH (20:58)
[2019-05-31] MEDS: MELATONIN 5 MG TABLET PO SCH (20:58)
[2019-06-01] MEDS: LEVOTHYROXINE SOD 0.05 MG TABLET PO SCH (06:18)
[2019-06-01] MEDS: PANTOPRAZOLE 40MG TABLET PO SCH (06:18)
[2019-06-01 06:26] LABS: Absolute Lymphocytes (CBC) 1.6 K/uL (0.7-4.9); Basophils % 0.4 % (0-1.3); Hematocrit 28.3 % (36.0-45.0); Lymphocytes % 8.5 % (15.3-44.8); RBC Red Blood Cell Count 3.05 M/uL (3.86-4.86)
[2019-06-01 07:04] LABS: Albumin 2.4 g/dL (3.4-5.0); Magnesium 2.6 mg/dL (1.8-2.4); Potassium 4.9 mmol/L (3.5-5.1); Prealbumin 31.2 mg/dL (20-40)
[2019-06-01] MEDS: INSULIN -REGULAR HUMAN 50 UNIT/0.5 ML ML SQ SCH ×4 (07:30→20:41)
[2019-06-01 08:00] LABS: Blood Morphology Comment NOT SEEN (NOT SEEN); Platelet Estimate ADEQ; Urine White Blood Cell Casts OK
[2019-06-01] MEDS: GLUCERNA SHAKE 237 ML CAN PO SCH ×2 (08:00→20:00)
[2019-06-01] MEDS: LIDOCAINE 4% PATCH TOP SCH (08:00)
[2019-06-01] MEDS: GABAPENTIN 300 MG CAP PO SCH ×3 (08:08→20:41)
[2019-06-01] MEDS: METFORMIN HCL 500 MG TAB PO SCH (08:08)
[2019-06-01] MEDS: AMOX/K CLAV 875 MG TAB PO SCH ×2 (08:08→19:33)
[2019-06-01] MEDS: RANITIDINE 150 MG TABLET PO SCH ×2 (08:08→19:33)
[2019-06-01] MEDS: VALSARTAN 160 MG TAB PO SCH (08:09)
[2019-06-01] MEDS: allopurinoL 100 MG TAB PO SCH (08:09)
[2019-06-01] MEDS: HYDRALAZINE HCL 25 MG TABLET PO SCH ×4 (08:09→20:42)
[2019-06-01] MEDS: GUAIFENESIN 600 MG SA TAB PO SCH ×2 (08:09→19:33)
[2019-06-01] MEDS: TICAGRELOR 90 MG TABLET PO SCH ×2 (08:10→19:33)
[2019-06-01] MEDS: NEBIVOLOL HCL 5 MG TAB PO SCH ×2 (08:11→19:33)
[2019-06-01] MEDS: cloNIDine HCL 0.1 MG TAB PO SCH ×2 (08:12→19:34)
--- NOTE | 2019-06-01 17:52 | R.PN ---
ENCOUNTER DATE AND TIME: 06/01/2019 17:41 (MANAGER UTILIZATION) NAME BETTY LANCASTER DATE OF : 1940 DATE OF ADMISSION: 05/29/2019 19:32 (MANAGER UTILIZATION) LEFT MCA INFARCTCHIEF COMPLAINT: Right sided weakness SUBJECTIVE: Pt denied any Shortness of Breath. Pt denied any depression. 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 She had nausea with dizziness. Head CT scan was negative for acute changes. ABG showed slightly low p O2 with normal pCO2. Started O2 2L via nasal cannula. Lactate mildly elevated to 2.1 and procalcitoni n is normal at < 0.05. She required moderate assistance for comprehension. Verbal problem solving done with 80% accuracy. Pr opelled wheelchair 325' with standby assistance. Ambulated 500' with rolling walker and standby wilber tance. Her Hgb dropped from 12.4 to 9.1 in two days. She is on hemocyte plus and ferrous sulfate. Will repea t CBC in the AM. Her stool guaiac test is positive for occult blood. Her WBC increased from 15.6 to 1 8.9, neutrophils increased to 85.4 and absolute neutrophils increased to 16.2. Her UA grew pansensiti ve E. Coli. Dr. Morton started Augmentin. VITAL SIGNS Temperature: 97.0 F SBP/DBP: 122/46 Pulse: 54 Resp: 16 MEDICATION ALLERGIES: No Known Drug Allergies (NKDA) ENVIRONMENTAL ALLERGIES: None Known - Substance Allergies None Known - Other Allergies None Known NURSING: - Shower allowing shower - Bladder care per protocol - Skin care per protocol PRECAUTIONS: - Weight Bearing Precaution WBAT right LE ACTIVITIES OOB only with supervision THERAPIES: - Occupational Therapy Cognitive Retraining. Visual Perceptual Training. - Dietary and Nutrition Adequate Nutrition. Nutritional Education. Nutritional Supplements. - Speech Therapy Cognitive Training. Expressive Language Skills. Memory Strategies. Receptive Language Skills. Speech Intelligibility Training. PHYSICAL EXAM - Gen Alert and awake Lying in bed No apparent distress Oriented to: person, time, and place - Skin No skin breakdown. Normacephalic - Eyes No abnormalities - ENMT No abnormalities - Neck No abnormalities No cervical adenopathy - CVS RRR - Chest No abnormalities - Resp Clear to auscultation - Abd Soft - GI Non distended Deferred - No abnormalities - Ext No significant edema - MSK 4+/5 weakness in right upper and lower extremity - Neuro 4/5 strength right upper and lower extremities. - Psych No abnormalities ASSESSMENT: Pt. is a 79 yo Right-handed white female.On 05/14/2019 Pt. presented to [facility] with sudden onset of right-side weakness.On 05/14/2019 she was admitted to [facility] with diagnosis LEFT MCA INFARCT.Her impairment category is Stroke 01 - Right Body (Left Brain) (01.2).Pre-morbidly, Pt. was independent/mod-I in Locomotion, Safety Awareness, Balance, Social Cogni tion, Transfers Control, Sphincter Control, Self-Care, Communication, and Endurance; and she had good Locomotion, Safety Awareness, Balance, Social Cognition, Transfers Control, Self-Care, Communication , Sphincter Control, and Endurance.Currently, she has deficits of Locomotion, Safety Awareness, Kiley ce, Transfers Control, Self-Care, and Endurance.Pt. is now referred to [facility] for acute in-patient rehabilitation in order to maximize patient's functional independence in act ivities of daily living, strength, ROM, and mobility.- Rehab Goal Patient has realistic goal of being discharged at assistance level 6-Florentino to reside at Home with Fam sasha/Relatives. MDM/PLAN: - Physical Therapy Gait dysfunction - to improve, our physical therapists will perform initial evaluation of pt's statu s upon admission and devise an individualized program for Gait Training, and Wheel Chair mobility Inability to transfer - to improve, our physical therapists will perform initial evaluation of pt's status upon admission and devise an individualized program for Bed mobility Need for home safety evaluation - to improve, our physical therapists will perform initial evaluatio n of pt's status upon admission and devise an individualized program for Home Evaluation Need in caregiver upon discharge - to improve, our physical therapists will perform initial evaluati on of pt's status upon admission and devise an individualized program for Caregiver Training New precaution - to improve, our physical therapists will perform initial evaluation of pt's status upon admission and devise an individualized program for Patient precaution education Edema - to improve, our physical therapists will perform initial evaluation of pt's status upon admi ssion and devise an individualized program for Elevation Training, and Lymphedema Therapy Poor balance - to improve, our physical therapists will perform initial evaluation of pt's status up on admission and devise an individualized program for Balance Training Poor endurance - to improve, our physical therapists will perform initial evaluation of pt's status upon admission and devise an individualized program for Endurance Training Weakness - to improve, our physical therapists will perform initial evaluation of pt's status upon a dmission and devise an individualized program for Aquatic Therapy, Neuromuscular Reeducation, and Str engthening Achieving independence - to improve, our physical therapists will perform initial evaluation of pt's status upon admission and devise an individualized program for Community Reintegration Activities - Occupational Therapy ADL deficits - to improve, our occupation therapists will perform initial evaluation of pt's status upon admission and devise an individualized program for Bathing, Bed mobility, Community Reintegratio n, Cooking, Dressing, Eating, Fine Motor Skills, Grooming, Homemaking, Kitchen Mobility, Laundry, Pat ient Education, Safety Awareness, Splinting - Positioning, Transfers(Toilet, Tub, Shower), and Wheel Chair Management Need for family day care provider - to improve, our occupation therapists will perform initial evaluation of pt's status upon admission and devise an individualized program for Caregiver Training Weakness - to improve, our occupation therapists will perform initial evaluation of pt's status upon admission and devise an individualized program for Aquatic Therapy, Balance, Endurance, UE ROM, and UE strengthening - Other See attached MAR (Medication Administration Record) - Diet Type Continue Regular - Diet - Liquid Texture Continue Regular - Tube Feed Continue N/A - Bladder care per protocol - Weight Bearing Precaution WBAT right LE - Skin care per protocol - Diet - Solid Texture Continue Regular - Shower allowing shower for Dementia, TBI, Stroke, or others FUNCTIONAL STATUS: UPDATED AT WEEKLY TEAM CONFERENCE - Bladder Same accident frequency: 7-Ind - No accidents in the past 7 days - Bowel Same accident frequency: 7-Ind - No accidents in the past 7 days - Walking Same score based on distance walked: 0(N/A) Same score based on distance walked: 3(>=150ft) - Wheelchair Same score based on distance traveled: 0(N/A) FUNCTIONAL STATUS: - Self-Care A. Eating Florentino B. Grooming Florentino C. Bathing sup D. Dressing - Upper sup E. Dressing - Lower Marco F. Toileting sup - Sphincter Control G. Bladder control sup H. Bowel control Florentino - Transfers Control I. Bed/Chair/Wheelchair Marco J. Toilet Marco K. Tub/Shower modA - Locomotion L. Walk/Wheelchair (B) modA M. Stairs ADNO - Communication N. Comprehension (B) sup O. Expression (B) Marco - Social Cognition P. Social Interaction Florentino Q. Problem Solving sup R. Memory sup - Endurance Fair - Balance Fair - Safety Awareness Fair QI SCORES: - Self-Care A. Eating 05-Setup or clean-up assistance B. Oral hygiene 05-Setup or clean-up assistance C. Toileting hygiene 03-Partial/moderate assistance E. Shower/bathe self 03-Partial/moderate assistance F. Upper body dressing 04-Supervision or touching assistance G. Lower body dressing 03-Partial/moderate assistance H. Putting on/taking off footwear 03-Partial/moderate assistance - Mobility A. Roll left and right 04-Supervision or touching assistance B. Sit to lying 04-Supervision or touching assistance C. Lying to sitting on side of bed 04-Supervision or touching assistance D. Sit to stand 04-Supervision or touching assistance E. Chair/[id number] transfer 03-Partial/moderate assistance F. Toilet transfer 03-Partial/moderate assistance G. Car transfer 88-Not attempted due to medical condition or safety concerns I. Walk 10 feet 04-Supervision or touching assistance J. Walk 50 feet with two turns 88-Not attempted due to medical condition or safety concerns K. Walk 150 feet 04-Supervision or touching assistance L. Walking 10 feet on uneven surfaces 88-Not attempted due to medical condition or safety concerns M. 1 step (curb) 88-Not attempted due to medical condition or safety concerns N. 4 steps 88-Not attempted due to medical condition or safety concerns O. 12 steps 88-Not attempted due to medical condition or safety concerns P. Picking up object 88-Not attempted due to medical condition or safety concerns R. Wheel 50 feet with two turns 88-Not attempted due to medical condition or safety concerns S. Wheel 150 feet 88-Not attempted due to medical condition or safety concerns - Bladder and Bowel Bladder continence 0-Always continent Bowel continence 0-Always continent - Endurance Fair - Balance Fair - Safety Awareness Fair CURRENT FUNC. DEFICITS: Self-Care, Mobility, Endurance, Balance, and Safety Awareness SIGNATURE PANEL: (MANAGER UTILIZATION)
[2019-06-01] MEDS: MELATONIN 5 MG TABLET PO SCH (20:41)
[2019-06-01] MEDS: ATORVASTATIN 80 MG TAB PO SCH (20:41)
[2019-06-01] MEDS: IPRATROPIUM BROM 0.5MG/2.5ML NEB PRN (21:00)
--- NOTE | 2019-06-01 23:03 | PN ---
Subjective: Ms. Lancaster is doing great, feeling a lot better, not dizzy any longer. Objective: Chest: Clear. Heart: Regular. Abdomen: No guarding. No rebound or rigidity. Vital Signs: Blood pressure 122/46, pulse is 51. This is a very good blood pressure for someone, who has not had blood pressure control for a long time. Laboratory Examination: White count is 18,900. This is possibly from prednisone, which we discontin ued yesterday. I do not see any clinical signs of infection except for UTI. Her BUN is 64, creatini ne 1.70. Assessment And Plan: I have stopped the torsemide for now to see if there is improvement in her crea tinine. I am able to reduce the number of medications as her blood pressure is doing lot better and I will continue tapering the medicines if I can which will be great for her and have less side effect s from it. Prognosis overall fair. SAURABH/MODL Voice ID: [id number] Report ID: [id number]
[2019-06-02 06:10] LABS: Absolute Lymphocytes (CBC) 2.1 K/uL (0.7-4.9); Basophils % 0.3 % (0-1.3); Hematocrit 29.5 % (36.0-45.0); Lymphocytes % 14.9 % (15.3-44.8); MPV 9.1 fL (7.6-11.3); RBC Red Blood Cell Count 3.18 M/uL (3.86-4.86)
[2019-06-02] MEDS: LEVOTHYROXINE SOD 0.05 MG TABLET PO SCH (06:31)
[2019-06-02] MEDS: INSULIN -REGULAR HUMAN 50 UNIT/0.5 ML ML SQ SCH ×4 (07:30→20:31)
[2019-06-02] MEDS: LIDOCAINE 4% PATCH TOP SCH (08:00)
[2019-06-02] MEDS: GLUCERNA SHAKE 237 ML CAN PO SCH ×2 (08:00→20:29)
[2019-06-02] MEDS: cloNIDine HCL 0.1 MG TAB PO SCH ×2 (08:06→20:28)
[2019-06-02] MEDS: RANITIDINE 150 MG TABLET PO SCH ×2 (08:07→20:29)
[2019-06-02] MEDS: TICAGRELOR 90 MG TABLET PO SCH ×2 (08:07→20:26)
[2019-06-02] MEDS: NEBIVOLOL HCL 5 MG TAB PO SCH ×2 (08:07→20:27)
[2019-06-02] MEDS: GUAIFENESIN 600 MG SA TAB PO SCH ×2 (08:08→20:29)
[2019-06-02] MEDS: allopurinoL 100 MG TAB PO SCH (08:08)
[2019-06-02] MEDS: METFORMIN HCL 500 MG TAB PO SCH (08:08)
[2019-06-02] MEDS: GABAPENTIN 300 MG CAP PO SCH ×3 (08:08→20:30)
[2019-06-02] MEDS: FE SULF/FA/VIT B COMP & C TAB PO SCH (08:08)
[2019-06-02] MEDS: AMOX/K CLAV 875 MG TAB PO SCH ×2 (08:08→20:26)
[2019-06-02] MEDS: VALSARTAN 160 MG TAB PO SCH (08:09)
[2019-06-02] MEDS: ACETAMINOPHEN 500 MG TAB PO PRN (08:09)
[2019-06-02] MEDS: FERROUS SULFATE 325 MG TAB PO SCH (08:09)
[2019-06-02] MEDS: HYDRALAZINE HCL 25 MG TABLET PO SCH ×3 (09:04→20:29)
--- NOTE | 2019-06-02 09:59 | P.RH.PN ---
Estimated Length of Stay: 12 Expected Discharge Date: 06/09/19 Discharge Disposition Plan: Home Family Support: Yes Intermediate Goal: Mobility, Transfers, Self Care Vital Signs: Last Vital Signs Temp 97.3 F 06/02/19 06:56 Pulse 72 06/02/19 09:24 Resp 18 06/02/19 06:56 BP 138/41 L 06/02/19 09:24 Pulse Ox 98 06/02/19 06:56 Laboratory: Laboratory Last Values WBC 14.2 K/uL (4.3-10.9) H D 06/02/19 05:48 RBC 3.18 M/uL (3.86-4.86) L 06/02/19 05:48 Hgb 9.4 g/dL (12.0-15.0) L 06/02/19 05:48 Hct 29.5 % (36.0-45.0) L 06/02/19 05:48 MCV 92.8 fL (80-100) 06/02/19 05:48 MCH 29.6 pg (27.0-35.0) 06/02/19 05:48 MCHC 31.9 g/dL (32.0-36.0) L 06/02/19 05:48 RDW 16.4 % (12.1-15.2) H 06/02/19 05:48 Plt Count 351 K/uL (152-406) 06/02/19 05:48 MPV 9.1 fL (7.6-11.3) 06/02/19 05:48 Neutrophils % 74.3 % (41.7-73.7) H 06/02/19 05:48 Lymphocytes % 14.9 % (15.3-44.8) L 06/02/19 05:48 Monocytes % 8.9 % (3.3-12.3) 06/02/19 05:48 Eosinophils % 1.6 % (0-4.4) 06/02/19 05:48 Basophils % 0.3 % (0-1.3) 06/02/19 05:48 Absolute Neutrophils 10.5 K/uL (1.8-8.0) H 06/02/19 05:48 Segmented Neutrophils 72 % (40-80) 05/30/19 05:36 Band Neutrophils 4 % (0-1) H 05/30/19 05:36 Absolute Lymphocytes 2.1 K/uL (0.7-4.9) 06/02/19 05:48 Lymphocytes 12 % (15-42) L 05/30/19 05:36 Monocytes 8 % (0-10) 05/30/19 05:36 Absolute Monocytes 1.3 K/uL (0.1-1.3) 06/02/19 05:48 Eosinophils 1 % (0-3) 05/30/19 05:36 Absolute Eosinophils 0.2 K/uL (0-0.5) 06/02/19 05:48 Absolute Basophils 0.0 K/uL (0-0.5) 06/02/19 05:48 Metamyelocytes 1 % (0-0) H 05/30/19 05:36 Myelocytes 1 % (0-0) H 05/30/19 05:36 Anisocytosis 1+ 05/30/19 05:36 Morphology Comment Not seen (NOT SEEN) 06/01/19 06:13 pH 7.39 (7.35-7.45) 05/31/19 13:55 pCO2 37.4 mmHG (35-45) 05/31/19 13:55 pO2 73.4 mmHG (75-100) L 05/31/19 13:55 HCO3 22.3 mmol/L (22-28) 05/31/19 13:55 Base Excess -1.9 mmol/L 05/31/19 13:55 Oxyhemoglobin 91.6 % (94-97) L 05/31/19 13:55 ABG O2 Sat (Measured) 94.0 % (92-98.5) 05/31/19 13:55 ABG Carboxyhemoglobin 1.4 % (0-1.5) 05/31/19 13:55 ABG Methemoglobin 1.1 % (0-1.5) 05/31/19 13:55 Other Total Hgb 9.6 g/dl (12-18) L 05/31/19 13:55 Inspired O2 21.0 % 05/31/19 13:55 Sodium 140 mmol/L (136-145) 06/01/19 06:27 Potassium 4.9 mmol/L (3.5-5.1) 06/01/19 06:27 Chloride 109 mmol/L (98-107) H 06/01/19 06:27 Carbon Dioxide 26 mmol/L (21-32) 06/01/19 06:27 BUN 64 mg/dL (7-18) H 06/01/19 06:27 Creatinine 1.70 mg/dL (0.55-1.3) H 06/01/19 06:27 Estimated GFR 29 mL/min (=/>90) L 06/01/19 06:27 Glucose 117 mg/dL (74-106) H 06/01/19 06:27 POC Glucose 85 mg/dl (65-120) 06/02/19 07:21 Lactic Acid 1.8 mmol/L (0.4-2.0) 05/31/19 17:04 Calcium 9.1 mg/dL (8.5-10.1) 06/01/19 06:27 Magnesium 2.6 mg/dL (1.8-2.4) H 06/01/19 06:27 Albumin 2.4 g/dL (3.4-5.0) L 06/01/19 06:27 Prealbumin 31.2 mg/dL (20-40) 06/01/19 06:27 Procalcitonin 0.05 ng/mL (<0.50) 05/31/19 12:50 Urine Color Yellow 05/30/19 16:00 Urine Appearance Cloudy 05/30/19 16:00 Urine pH 5.0 (5.0-7.0) 05/30/19 16:00 Ur Specific [place] 1.015 (1.005-1.030) 05/30/19 16:00 Glucose (UA)(Auto) Negative (NEG) 05/30/19 16:00 Urine Ketones Negative (NEG) 05/30/19 16:00 Urine Blood Negative (NEG) 05/30/19 16:00 Urine Nitrite Negative (NEG) 05/30/19 16:00 Urine Bilirubin Negative (NEG) 05/30/19 16:00 Urine Urobilinogen 0.2 mg/dL (0.2-1.0) 05/30/19 16:00 Ur Leukocyte Esterase 3+ (NEG) H 05/30/19 16:00 Urine RBC <5 /HPF (NONE SEEN) 05/30/19 16:00 Urine WBC >50 /HPF (<5) H 05/30/19 16:00 Ur Squamous Epith Cells <5 /HPF (NONE SEEN) 05/30/19 16:00 Urine Bacteria >50 /HPF (<20) H 05/30/19 16:00 Urine Culture Reflexed Reflexed 05/30/19 16:00 Urine Total Protein 2+ (NEG) H 05/30/19 16:00 Weight: 174 lb Wound Present: No Closed Surgical Incision Present: No Negative Pressure Wound Therapy Present: No Physician Update: She is doing well. Walking 325' with rolling walker and minimum assistance. Her Hgb is holding steady at 9.4. She is on hemocyte plus. She is on antibiotics for her UTI. Medical Issues: Patient is always continent with bladder and bowel. Speech Therapy Update: Patient has min (trace) cognitive-linguistic impairments characterized by decreased mental flexibility and verbal fluency. Patient has been performing well in therapy. Treatment focuses on compensatory strategies and high leve/complex problem solving. Summary: Patient's care plan and skilled nursing goals have been reviewed and revised as necessary. Please see the Rehabilitation Signature page for all necessary signatures.
[2019-06-02] MEDS: MELATONIN 5 MG TABLET PO SCH (20:30)
[2019-06-02] MEDS: ATORVASTATIN 80 MG TAB PO SCH (20:30)
[2019-06-02] MEDS: IPRATROPIUM BROM 0.5MG/2.5ML NEB PRN (21:30)
--- NOTE | 2019-06-03 01:56 | PN ---
Subjective: Ms. Lancaster is doing great now. Has no nausea, vomiting, dizziness, or headaches. She is improving physically with the therapy. Physical Examination: Vital Signs: Blood pressure 146/52, pulse 68, temperature 98.6. Chest: Clear. Heart: Regular. Abdomen: No guarding. No rebound. No rigidity. Neurological: Her power overall is just mildly wea k. Otherwise, she has regained most of her physical abilities at this point. Laboratory Data: White count down to 14,000. It was high because of steroids. BUN is 64, creatinin e 1.74. Assessment And Plan: I stopped her diuretic because of dehydration I have seen on the blood work. I will be watching her blood count on a daily basis. Currently, she is clinically stable. RVD/MODL Voice ID: [id number] Report ID: [id number]
--- NOTE | 2019-06-03 02:29 | FAST ---
SHIFT START DATE/TIME: 06/02/2019 19:00 (BUTTON SAWYER) SHIFT END DATE/TIME: 06/03/2019 07:00 (BUTTON SAWYER) NAME BETTY BRAVO DATE OF : 1940 DATE OF ADMISSION: 05/29/2019 19:32 (BUTTON SAWYER) PHONE: AGE: 79 SSN# [id number] GENDER: Female ENCOUNTER PHYSICIAN: Dr. Juanjo Mccall M.D. ADMISSION DIAGNOSIS: - Stroke 01 - Right Body (Left Brain) (01.2) LEFT MCA INFARCT. EATING: Not assessed/no information CODE: - ORAL HYGIENE: Not assessed/no information CODE: - TOILETING HYGIENE: TOILETING HYGIENE - STEP 1: Does the patient complete the activity by him/herself with no assistance (physical, verbal/nonverbal cueing, setup/clean-up)? No. TOILETING HYGIENE - STEP 2: Does the patient need only setup/clean-up assistance from one helper? No. TOILETING HYGIENE - STEP 3: Does the patient need only verbal/nonverbal cueing or touching/steadying/contact guard assistance fro m one helper? Yes. 1. [id number] ADMISSION PERFORMANCE: Supervision or touching assistance CODE: 04 BATHING: Not assessed/no information CODE: - DRESSING - UPPER BODY: Not assessed/no information CODE: - DRESSING - LOWER BODY: Not assessed/no information CODE: - PUTTING ON/TAKING OFF FOOTWEAR: Not assessed/no information CODE: - ROLL LEFT AND RIGHT: ROLL LEFT AND RIGHT - STEP 1: Does the patient complete the activity by him/herself with no assistance (physical, verbal/nonverbal cueing, setup/clean-up)? No. ROLL LEFT AND RIGHT - STEP 2: Does the patient need only setup/clean-up assistance from one helper? No. ROLL LEFT AND RIGHT - STEP 3: Does the patient need only verbal/nonverbal cueing or touching/steadying/contact guard assistance fro m one helper? Yes. 1. [id number] ADMISSION PERFORMANCE: Supervision or touching assistance CODE: 04 SIT TO LYING: SIT TO LYING - STEP 1: Does the patient complete the activity by him/herself with no assistance (physical, verbal/nonverbal cueing, setup/clean-up)? No. SIT TO LYING - STEP 2: Does the patient need only setup/clean-up assistance from one helper? No. SIT TO LYING - STEP 3: Does the patient need only verbal/nonverbal cueing or touching/steadying/contact guard assistance fro m one helper? Yes. 1. [id number] ADMISSION PERFORMANCE: Supervision or touching assistance CODE: 04 LYING TO SITTING: LYING TO SITTING ON SIDE OF BED - STEP 1: Does the patient complete the activity by him/herself with no assistance (physical, verbal/nonverbal cueing, setup/clean-up)? No. LYING TO SITTING ON SIDE OF BED - STEP 2: Does the patient need only setup/clean-up assistance from one helper? No. LYING TO SITTING ON SIDE OF BED - STEP 3: Does the patient need only verbal/nonverbal cueing or touching/steadying/contact guard assistance fro m one helper? Yes. 1. [id number] ADMISSION PERFORMANCE: Supervision or touching assistance CODE: 04 SIT TO STAND: SIT TO STAND - STEP 1: Does the patient complete the activity by him/herself with no assistance (physical, verbal/nonverbal cueing, setup/clean-up)? No. SIT TO STAND - STEP 2: Does the patient need only setup/clean-up assistance from one helper? No. SIT TO STAND - STEP 3: Does the patient need only verbal/nonverbal cueing or touching/steadying/contact guard assistance fro m one helper? Yes. 1. [id number] ADMISSION PERFORMANCE: Supervision or touching assistance CODE: 04 TRANSFERS: BED, CHAIR: CHAIR/[id number] TRANSFER - STEP 1: Does the patient complete the activity by him/herself with no assistance (physical, verbal/nonverbal cueing, setup/clean-up)? No. CHAIR/[id number] TRANSFER - STEP 2: Does the patient need only setup/clean-up assistance from one helper? No. CHAIR/[id number] TRANSFER - STEP 3: Does the patient need only verbal/nonverbal cueing or touching/steadying/contact guard assistance fro m one helper? Yes. 1. [id number] ADMISSION PERFORMANCE: Supervision or touching assistance CODE: 04 TRANSFER TOILET: TOILET TRANSFER - STEP 1: Does the patient complete the activity by him/herself with no assistance (physical, verbal/nonverbal cueing, setup/clean-up)? No. TOILET TRANSFER - STEP 2: Does the patient need only setup/clean-up assistance from one helper? No. TOILET TRANSFER - STEP 3: Does the patient need only verbal/nonverbal cueing or touching/steadying/contact guard assistance fro m one helper? Yes. 1. [id number] ADMISSION PERFORMANCE: Supervision or touching assistance CODE: 04 TRANSFERS: CAR: Not assessed/no information CODE: - WALK 10 FEET: Not assessed/no information CODE: - 1 STEP (CURB): Not assessed/no information CODE: - PICKING UP OBJECT: Not assessed/no information CODE: - DOES THE PATIENT USE A WHEELCHAIR/SCOOTER? CODE: EXPR WHEEL 50 FEET WITH TWO TURNS: Not assessed/no information CODE: - INDICATE THE TYPE OF WHEELCHAIR/SCOOTER USED: CODE: EXPR WHEEL 150 FEET: Not assessed/no information CODE: - INDICATE THE TYPE OF WHEELCHAIR/SCOOTER USED: CODE: EXPR BLADDER AND BOWEL: H350. BLADDER CONTINENCE (3-DAY ASSESSMENT PERIOD): Always continent (no documented incontinence) CODE: 0 H400. BOWEL CONTINENCE (3-DAY ASSESSMENT PERIOD): Always continent CODE: 0
[2019-06-03] MEDS: LEVOTHYROXINE SOD 0.05 MG TABLET PO SCH (06:37)
[2019-06-03] MEDS: INSULIN -REGULAR HUMAN 50 UNIT/0.5 ML ML SQ SCH ×4 (07:30→20:33)
[2019-06-03] MEDS: LIDOCAINE 4% PATCH TOP SCH (08:00)
[2019-06-03] MEDS: GLUCERNA SHAKE 237 ML CAN PO SCH ×2 (08:00→20:00)
[2019-06-03] MEDS: TICAGRELOR 90 MG TABLET PO SCH ×2 (08:57→20:00)
[2019-06-03] MEDS: NEBIVOLOL HCL 5 MG TAB PO SCH ×2 (08:57→20:35)
[2019-06-03] MEDS: RANITIDINE 150 MG TABLET PO SCH ×2 (08:58→20:32)
[2019-06-03] MEDS: cloNIDine HCL 0.1 MG TAB PO SCH ×2 (08:58→20:32)
[2019-06-03] MEDS: AMOX/K CLAV 875 MG TAB PO SCH ×2 (08:58→20:32)
[2019-06-03] MEDS: METFORMIN HCL 500 MG TAB PO SCH (08:59)
[2019-06-03] MEDS: ACETAMINOPHEN 500 MG TAB PO PRN ×2 (08:59→20:33)
[2019-06-03] MEDS: GUAIFENESIN 600 MG SA TAB PO SCH ×2 (08:59→20:33)
[2019-06-03] MEDS: HYDRALAZINE HCL 25 MG TABLET PO SCH ×3 (08:59→20:33)
[2019-06-03] MEDS: VALSARTAN 160 MG TAB PO SCH (09:00)
[2019-06-03] MEDS: allopurinoL 100 MG TAB PO SCH (09:01)
[2019-06-03] MEDS: FE SULF/FA/VIT B COMP & C TAB PO SCH (09:02)
[2019-06-03] MEDS: GABAPENTIN 300 MG CAP PO SCH ×3 (09:02→20:33)
[2019-06-03] MEDS: FERROUS SULFATE 325 MG TAB PO SCH (09:03)
--- NOTE | 2019-06-03 11:35 | PN ---
Subjective: Ms. Lancaster is doing great, lot better than yesterday and day before. Denies chest pain, nausea, vomiting, diarrhea, coughing, sputum, hemoptysis, hematemesis, and melena. Physical Examination: Vital Signs: Blood pressure is higher up to 160/50, temperature 98.6. Chest: Clear. Heart: Irregular. Abdomen: No guarding, no rebound, no rigidity. Extremities: Left side; upper and lower limb muscle weakness, slightly lower than normal, not even a s low as 4/5. Laboratory Data: Hemoglobin is 9.4, WBC 14,000, I think this is still a residual effect of being on prednisone from [place]. BUN 64, creatinine 1.7. Assessment And Plan: 1.Left hemiparesis, stroke from recent carotid stenosis, status post stent placement. 2.Brain aneurysm, which is 8 mm, stable and needs surgery in future. Dr. Indra Oconnor is a neurovascul ar surgeon on case. 3.Hypertension, raised the dose to 320 mg once a day of Dilantin. She is still on multiple other me dications as her blood pressure has been always difficult to control in the past. 4.Diabetes. Continue medications, further stable. RVD/MODL Voice ID: [id number] Report ID: [id number]
[2019-06-03 12:59] LABS: C.diff Antigen/Toxin Ag neg : Tox neg (NEG : NEG)
[2019-06-03] MEDS: MELATONIN 5 MG TABLET PO SCH (20:32)
[2019-06-03] MEDS: ATORVASTATIN 80 MG TAB PO SCH (20:33)
[2019-06-03] MEDS: IPRATROPIUM BROM 0.5MG/2.5ML NEB PRN (20:35)
[2019-06-04] MEDS: LEVOTHYROXINE SOD 0.05 MG TABLET PO SCH (06:30)
[2019-06-04 06:35] LABS: Absolute Lymphocytes (CBC) 1.6 K/uL (0.7-4.9); Basophils % 0.5 % (0-1.3); Hematocrit 29.4 % (36.0-45.0); Lymphocytes % 13.3 % (15.3-44.8); RBC Red Blood Cell Count 3.16 M/uL (3.86-4.86)
[2019-06-04 07:06] LABS: Potassium 4.9 mmol/L (3.5-5.1)
[2019-06-04] MEDS: INSULIN -REGULAR HUMAN 50 UNIT/0.5 ML ML SQ SCH ×4 (07:24→20:12)
[2019-06-04] MEDS: LIDOCAINE 4% PATCH TOP SCH (07:25)
[2019-06-04 07:29] LABS: Blood Morphology Comment NOT SEEN (NOT SEEN); Platelet Estimate ADEQ
[2019-06-04] MEDS: AMOX/K CLAV 875 MG TAB PO SCH (07:49)
[2019-06-04] MEDS: NEBIVOLOL HCL 5 MG TAB PO SCH ×2 (07:49→20:12)
[2019-06-04] MEDS: cloNIDine HCL 0.1 MG TAB PO SCH ×2 (07:49→20:11)
[2019-06-04] MEDS: VALSARTAN 160 MG TAB PO SCH (07:50)
[2019-06-04] MEDS: RANITIDINE 150 MG TABLET PO SCH ×2 (07:51→20:12)
[2019-06-04] MEDS: GABAPENTIN 300 MG CAP PO SCH ×3 (07:51→20:12)
[2019-06-04] MEDS: allopurinoL 100 MG TAB PO SCH (07:52)
[2019-06-04] MEDS: METFORMIN HCL 500 MG TAB PO SCH (07:52)
[2019-06-04] MEDS: GLUCERNA SHAKE 237 ML CAN PO SCH ×2 (07:52→20:00)
[2019-06-04] MEDS: FE SULF/FA/VIT B COMP & C TAB PO SCH (07:52)
[2019-06-04] MEDS: TICAGRELOR 90 MG TABLET PO SCH ×2 (07:52→20:00)
[2019-06-04] MEDS: FERROUS SULFATE 325 MG TAB PO SCH (07:52)
[2019-06-04] MEDS: GUAIFENESIN 600 MG SA TAB PO SCH ×2 (07:52→20:11)
[2019-06-04] MEDS: HYDRALAZINE HCL 25 MG TABLET PO SCH ×3 (09:32→20:11)
[2019-06-04] MEDS ORDERED: LOPERAMIDE HCL 2 MG CAPSULE PO PRN (11:06)
--- NOTE | 2019-06-04 11:06 | P.PN ---
Subjective Date of Service: 06/04/19 Chief Complaint: WEAKNESS Subjective: Improving DIARRHEA FROM AUGMENTIN. SHE IS NOT COUGHING ANY LONGER. Review of Systems 10-point ROS is otherwise unremarkable Physical Examination - Vital Signs Temperature: 96.9 F Blood Pressure: 125/55 Pulse: 80 Respirations: 18 Pulse Ox (%): 96 - Studies Laboratory Data (last 24 hrs) 06/04/19 06:23: Sodium 143, Potassium 4.9, BUN 37 H D, Creatinine 1.38 H, Glucose 117 H 06/04/19 06:23: WBC 12.0 H D, Hgb 9.4 L, Hct 29.4 L, Plt Count 316 Assessment And Plan - Current Problems (Diagnosis) (1) Diabetes Current Visit: Yes Status: Chronic Qualifiers: Diabetes mellitus type: type 2 Diabetes mellitus prison insulin use: without prison use Diabetes mellitus complication status: with circulatory complication Diabetes mellitus complication detail: with other circulatory complications Qualified Code(s): E11.59 - Type 2 diabetes mellitus with other circulatory complications (2) Dehydration Current Visit: Yes Status: Chronic Plan: REDUCE DIURETIC TO EVERY OTHER DAY AND ALSO K. (3) Fever Onset Date: 04/07/17 Current Visit: No Status: Acute Plan: UTI START WITH AUGMENTIN. AGREE. STOP AUGMENTIN SHE HAS NO SS. CXR NEG. FEELS A LOT BETTER. Qualifiers: Encounter type: initial encounter (4) Weakness Onset Date: 04/07/17 Current Visit: No Status: Chronic Plan: HAS HAD CERVICAL RADICULOPATHY. TIA NOW TWICE. WILL CHECK REPORTS FROM [facility]. RESUME MEDS AND PT. (5) Atrial fibrillation Current Visit: No Status: Chronic (6) Hypertension Onset Date: 05/20/15 Current Visit: No Status: Chronic Plan: CONT MEDS AND FU DAILY. Qualifiers: Hypertension type: essential hypertension (7) Diarrhea Current Visit: Yes Status: Acute Plan: ABX RELATED. IMMMODIUM. STOP AUGMENTIN.
[2019-06-04] MEDS: ATORVASTATIN 80 MG TAB PO SCH (20:11)
[2019-06-04] MEDS: MELATONIN 5 MG TABLET PO SCH (20:11)
[2019-06-04] MEDS: ACETAMINOPHEN 500 MG TAB PO PRN (20:12)
[2019-06-05 06:06] LABS: Basophils % 0.4 % (0-1.3); Hematocrit 27.2 % (36.0-45.0); MPV 9.5 fL (7.6-11.3); RBC Red Blood Cell Count 2.91 M/uL (3.86-4.86)
[2019-06-05] MEDS: LEVOTHYROXINE SOD 0.05 MG TABLET PO SCH (06:32)
[2019-06-05] MEDS: INSULIN -REGULAR HUMAN 50 UNIT/0.5 ML ML SQ SCH ×4 (07:28→20:34)
[2019-06-05] MEDS: FERROUS SULFATE 325 MG TAB PO SCH (07:51)
[2019-06-05] MEDS: allopurinoL 100 MG TAB PO SCH (07:51)
[2019-06-05] MEDS: TICAGRELOR 90 MG TABLET PO SCH ×2 (07:52→19:20)
[2019-06-05] MEDS: METFORMIN HCL 500 MG TAB PO SCH (07:52)
[2019-06-05] MEDS: FE SULF/FA/VIT B COMP & C TAB PO SCH (07:52)
[2019-06-05] MEDS: GABAPENTIN 300 MG CAP PO SCH ×3 (07:52→20:33)
[2019-06-05] MEDS: RANITIDINE 150 MG TABLET PO SCH ×2 (07:52→19:21)
[2019-06-05] MEDS: GLUCERNA SHAKE 237 ML CAN PO SCH ×2 (07:52→19:21)
[2019-06-05] MEDS: GUAIFENESIN 600 MG SA TAB PO SCH ×2 (07:52→19:20)
[2019-06-05] MEDS: cloNIDine HCL 0.1 MG TAB PO SCH ×2 (08:00→20:33)
[2019-06-05] MEDS: NEBIVOLOL HCL 5 MG TAB PO SCH ×2 (08:00→19:20)
[2019-06-05] MEDS: VALSARTAN 160 MG TAB PO SCH (08:00)
[2019-06-05] MEDS: HYDRALAZINE HCL 25 MG TABLET PO SCH (08:53)
[2019-06-05] MEDS: LIDOCAINE 4% PATCH TOP SCH (09:00)
[2019-06-05] MEDS: IPRATROPIUM BROM 0.5MG/2.5ML NEB PRN (14:55)
--- NOTE | 2019-06-05 16:05 | FAST ---
SHIFT START DATE/TIME: 06/05/2019 07:00 ([facility]) SHIFT END DATE/TIME: 06/05/2019 19:00 ([facility]) NAME BETTY BRAVO DATE OF : 1940 DATE OF ADMISSION: 05/29/2019 19:32 ([facility]) PHONE: AGE: 79 N# [id number] GENDER: Female ENCOUNTER PHYSICIAN: Dr. Juanjo Mccall M.D. ADMISSION DIAGNOSIS: - Stroke 01 - Right Body (Left Brain) (01.2) LEFT MCA INFARCT. EATING: EATING - STEP 1: Does the patient complete the activity by him/herself with no assistance (physical, verbal/nonverbal cueing, setup/clean-up)? No. EATING - STEP 2: Does the patient need only setup/clean-up assistance from one helper? Yes. 1. [id number] ADMISSION PERFORMANCE: Setup or clean-up assistance CODE: 05 ORAL HYGIENE: ORAL HYGIENE - STEP 1: Does the patient complete the activity by him/herself with no assistance (physical, verbal/nonverbal cueing, setup/clean-up)? Yes. 1. [id number] ADMISSION PERFORMANCE: Independent CODE: 06 TOILETING HYGIENE: TOILETING HYGIENE - STEP 1: Does the patient complete the activity by him/herself with no assistance (physical, verbal/nonverbal cueing, setup/clean-up)? No. TOILETING HYGIENE - STEP 2: Does the patient need only setup/clean-up assistance from one helper? Yes. 1. [id number] ADMISSION PERFORMANCE: Setup or clean-up assistance CODE: 05 BATHING: Not assessed/no information CODE: - DRESSING - UPPER BODY: DRESSING - UPPER BODY - STEP 1: Does the patient complete the activity by him/herself with no assistance (physical, verbal/nonverbal cueing, setup/clean-up)? No. DRESSING - UPPER BODY - STEP 2: Does the patient need only setup/clean-up assistance from one helper? Yes. 1. [id number] ADMISSION PERFORMANCE: Setup or clean-up assistance CODE: 05 DRESSING - LOWER BODY: DRESSING - LOWER BODY - STEP 1: Does the patient complete the activity by him/herself with no assistance (physical, verbal/nonverbal cueing, setup/clean-up)? No. DRESSING - LOWER BODY - STEP 2: Does the patient need only setup/clean-up assistance from one helper? No. DRESSING - LOWER BODY - STEP 3: Does the patient need only verbal/nonverbal cueing or touching/steadying/contact guard assistance fro m one helper? Yes. 1. [id number] ADMISSION PERFORMANCE: Supervision or touching assistance CODE: 04 PUTTING ON/TAKING OFF FOOTWEAR: FOOTWEAR - STEP 1: Does the patient complete the activity by him/herself with no assistance (physical, verbal/nonverbal cueing, setup/clean-up)? No. FOOTWEAR - STEP 2: Does the patient need only setup/clean-up assistance from one helper? No. FOOTWEAR - STEP 3: Does the patient need only verbal/nonverbal cueing or touching/steadying/contact guard assistance fro m one helper? Yes. 1. [id number] ADMISSION PERFORMANCE: Supervision or touching assistance CODE: 04 DOES THE PATIENT USE A WHEELCHAIR/SCOOTER? CODE: EXPR INDICATE THE TYPE OF WHEELCHAIR/SCOOTER USED: CODE: EXPR INDICATE THE TYPE OF WHEELCHAIR/SCOOTER USED: CODE: EXPR BLADDER AND BOWEL: H350. BLADDER CONTINENCE (3-DAY ASSESSMENT PERIOD): Always continent (no documented incontinence) CODE: 0 H400. BOWEL CONTINENCE (3-DAY ASSESSMENT PERIOD): Always continent CODE: 0 SIGNATURE PANEL: The following modified sections: 1. [id number] Admission Performance, 1. [id number] Admission Performance, 1. [id number] Admission Performance, 1. [id number] Admission Performance, 1. [id number] Admission Performance, 1. [id number] Admission Performance, 1. [id number] Admission Performance, H350. Bladder Continence (3-day assessment period), H400. Bowel Continence (3-day assessment period) were [electronically] signed by Verna JoynerNLaurie on WedJun 05 2019 16:05:12 GMT-0600 (Central Standard Time)
--- NOTE | 2019-06-05 18:10 | R.PN ---
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 Pt denied any depression. 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 She had nausea with dizziness. Head CT scan was negative for acute changes. ABG showed slightly low p O2 with normal pCO2. Started O2 2L via nasal cannula. Lactate mildly elevated to 2.1 and procalcitoni n is normal at < 0.05. She required moderate assistance for comprehension. Verbal problem solving done with 80% accuracy. Pr opelled wheelchair 325' with standby assistance. Ambulated 1250' with rolling walker and independence . Up and down 15 steps with standby assistance. VITAL SIGNS Temperature: 97.8 F SBP/DBP: 128/47 Pulse: 79 Resp: 16 MEDICATION ALLERGIES: No Known Drug Allergies (NKDA) ENVIRONMENTAL ALLERGIES: None Known - Substance Allergies None Known - Other Allergies None Known NURSING: - Shower allowing shower - Bladder care per protocol - Skin care per protocol PRECAUTIONS: - Weight Bearing Precaution WBAT right LE ACTIVITIES OOB only with supervision THERAPIES: - Occupational Therapy Cognitive Retraining. Visual Perceptual Training. - Dietary and Nutrition Adequate Nutrition. Nutritional Education. Nutritional Supplements. - Speech Therapy Cognitive Training. Expressive Language Skills. Memory Strategies. Receptive Language Skills. Speech Intelligibility Training. PHYSICAL EXAM - Gen Alert and awake Lying in bed No apparent distress Oriented to: person, time, and place - Skin No skin breakdown. Normacephalic - Eyes No abnormalities - ENMT No abnormalities - Neck No abnormalities No cervical adenopathy - CVS RRR - Chest No abnormalities - Resp Clear to auscultation - Abd Soft - GI Non distended Deferred - No abnormalities - Ext No significant edema - MSK 4+/5 weakness in right upper and lower extremity - Neuro 4/5 strength right upper and lower extremities. - Psych No abnormalities ASSESSMENT: Pt. is a 79 yo Right-handed white female.On 05/14/2019 Pt. presented to [facility] with sudden onset of right-side weakness.On 05/14/2019 she was admitted to [facility] nt with diagnosis LEFT MCA INFARCT.Her impairment category is Stroke 01 - Right Body (Left Brain) (01.2).Pre-morbidly, Pt. was independent/mod-I in Locomotion, Safety Awareness, Balance, Social Cogni tion, Transfers Control, Sphincter Control, Self-Care, Communication, and Endurance; and she had good Locomotion, Safety Awareness, Balance, Social Cognition, Transfers Control, Self-Care, Communication , Sphincter Control, and Endurance.Currently, she has deficits of Locomotion, Safety Awareness, Kiley ce, Transfers Control, Self-Care, and Endurance.Pt. is now referred to [facility] for acute in-patient rehabilitation in order to maximize patient's functional independence in act ivities of daily living, strength, ROM, and mobility.- Rehab Goal Patient has realistic goal of being discharged at assistance level 6-Florentino to reside at Home with Fam sasha/Relatives. MDM/PLAN: - Physical Therapy Gait dysfunction - to improve, our physical therapists will perform initial evaluation of pt's statu s upon admission and devise an individualized program for Gait Training, and Wheel Chair mobility Inability to transfer - to improve, our physical therapists will perform initial evaluation of pt's status upon admission and devise an individualized program for Bed mobility Need for home safety evaluation - to improve, our physical therapists will perform initial evaluatio n of pt's status upon admission and devise an individualized program for Home Evaluation Need in caregiver upon discharge - to improve, our physical therapists will perform initial evaluati on of pt's status upon admission and devise an individualized program for Caregiver Training New precaution - to improve, our physical therapists will perform initial evaluation of pt's status upon admission and devise an individualized program for Patient precaution education Edema - to improve, our physical therapists will perform initial evaluation of pt's status upon admi ssion and devise an individualized program for Elevation Training, and Lymphedema Therapy Poor balance - to improve, our physical therapists will perform initial evaluation of pt's status up on admission and devise an individualized program for Balance Training Poor endurance - to improve, our physical therapists will perform initial evaluation of pt's status upon admission and devise an individualized program for Endurance Training Weakness - to improve, our physical therapists will perform initial evaluation of pt's status upon a dmission and devise an individualized program for Aquatic Therapy, Neuromuscular Reeducation, and Str engthening Achieving independence - to improve, our physical therapists will perform initial evaluation of pt's status upon admission and devise an individualized program for Community Reintegration Activities - Occupational Therapy ADL deficits - to improve, our occupation therapists will perform initial evaluation of pt's status upon admission and devise an individualized program for Bathing, Bed mobility, Community Reintegratio n, Cooking, Dressing, Eating, Fine Motor Skills, Grooming, Homemaking, Kitchen Mobility, Laundry, Pat ient Education, Safety Awareness, Splinting - Positioning, Transfers(Toilet, Tub, Shower), and Wheel Chair Management Need for care technician - to improve, our occupation therapists will perform initial evaluation of pt's status upon admission and devise an individualized program for Caregiver Training Weakness - to improve, our occupation therapists will perform initial evaluation of pt's status upon admission and devise an individualized program for Aquatic Therapy, Balance, Endurance, UE ROM, and UE strengthening - Other See attached MAR (Medication Administration Record) - Diet Type Continue Regular - Diet - Liquid Texture Continue Regular - Tube Feed Continue N/A - Bladder care per protocol - Weight Bearing Precaution WBAT right LE - Skin care per protocol - Diet - Solid Texture Continue Regular - Shower allowing shower for Dementia, TBI, Stroke, or others FUNCTIONAL STATUS: UPDATED AT WEEKLY TEAM CONFERENCE - Bladder Same accident frequency: 7-Ind - No accidents in the past 7 days - Bowel Same accident frequency: 7-Ind - No accidents in the past 7 days - Walking Same score based on distance walked: 0(N/A) Same score based on distance walked: 3(>=150ft) - Wheelchair Same score based on distance traveled: 0(N/A) FUNCTIONAL STATUS: - Self-Care A. Eating Florentino B. Grooming Florentino C. Bathing sup D. Dressing - Upper sup E. Dressing - Lower Marco F. Toileting sup - Sphincter Control G. Bladder control sup H. Bowel control Florentino - Transfers Control I. Bed/Chair/Wheelchair Marco J. Toilet Marco K. Tub/Shower modA - Locomotion L. Walk/Wheelchair (B) modA M. Stairs ADNO - Communication N. Comprehension (B) sup O. Expression (B) Marco - Social Cognition P. Social Interaction Florentino Q. Problem Solving sup R. Memory sup - Endurance Fair - Balance Fair - Safety Awareness Fair QI SCORES: - Self-Care A. Eating 05-Setup or clean-up assistance B. Oral hygiene 05-Setup or clean-up assistance C. Toileting hygiene 03-Partial/moderate assistance E. Shower/bathe self 03-Partial/moderate assistance F. Upper body dressing 04-Supervision or touching assistance G. Lower body dressing 03-Partial/moderate assistance H. Putting on/taking off footwear 03-Partial/moderate assistance - Mobility A. Roll left and right 04-Supervision or touching assistance B. Sit to lying 04-Supervision or touching assistance C. Lying to sitting on side of bed 04-Supervision or touching assistance D. Sit to stand 04-Supervision or touching assistance E. Chair/wfl-fi-ywwbi transfer 03-Partial/moderate assistance F. Toilet transfer 03-Partial/moderate assistance G. Car transfer 88-Not attempted due to medical condition or safety concerns I. Walk 10 feet 04-Supervision or touching assistance J. Walk 50 feet with two turns 88-Not attempted due to medical condition or safety concerns K. Walk 150 feet 04-Supervision or touching assistance L. Walking 10 feet on uneven surfaces 88-Not attempted due to medical condition or safety concerns M. 1 step (curb) 88-Not attempted due to medical condition or safety concerns N. 4 steps 88-Not attempted due to medical condition or safety concerns O. 12 steps 88-Not attempted due to medical condition or safety concerns P. Picking up object 88-Not attempted due to medical condition or safety concerns R. Wheel 50 feet with two turns 88-Not attempted due to medical condition or safety concerns S. Wheel 150 feet 88-Not attempted due to medical condition or safety concerns - Bladder and Bowel Bladder continence 0-Always continent Bowel continence 0-Always continent - Endurance Fair - Balance Fair - Safety Awareness Fair CURRENT FUNC. 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
[2019-06-05] MEDS: MELATONIN 5 MG TABLET PO SCH (20:33)
[2019-06-05] MEDS: ATORVASTATIN 80 MG TAB PO SCH (20:33)
--- NOTE | 2019-06-05 21:40 | PN ---
Subjective: Ms. Lancaster is doing a lot better. This morning she had an episode of blood pressure whic h was down to 120 systolic, which is really low for her, now it is up to 162 after we stopped hydrala zine for the time being. Objective: Chest: Clear. Heart: Regular. Abdomen: No guarding, no rebound, no rigidity. Laboratory Data: BUN 34, creatinine 1.46, WBC count 12,000 which is stable at this point. Assessment And Plan: 1.There are no signs of infection, except for respiratory infection she had a few days ago for which she was given Augmentin, which gave her severe diarrhea, so Augmentin has been discontinued. There are no signs of pneumonia on chest x-ray and very minimal cough at this point, I will observe her wit hout antibiotics to avoid any complications like diarrhea. 2.BUN and creatinine elevation 34/1.46, suggesting mild dehydration. We have stopped the diuretics a few days ago, we will see how much improvement we see. 3.Anemia. Hemoglobin down to 8.6. Again, she is on antiplatelet agent because of carotid stenosis. We will have to see how much she drops, she cannot get off anti platelet agent at this point. Othe rwise, she will have worsening of the stenosis or stent stenosis. Prognosis overall guarded. RVD/MODL Voice ID: [id number] Report ID: [id number]
[2019-06-06] MEDS: LEVOTHYROXINE SOD 0.05 MG TABLET PO SCH (06:25)
[2019-06-06 07:15] LABS: Absolute Lymphocytes (CBC) 1.8 K/uL (0.7-4.9); Basophils % 0.3 % (0-1.3); Hematocrit 29.2 % (36.0-45.0); Lymphocytes % 13.6 % (15.3-44.8); MPV 9.5 fL (7.6-11.3); RBC Red Blood Cell Count 3.14 M/uL (3.86-4.86)
[2019-06-06] MEDS: INSULIN -REGULAR HUMAN 50 UNIT/0.5 ML ML SQ SCH ×4 (07:16→21:00)
[2019-06-06] MEDS: GLUCERNA SHAKE 237 ML CAN PO SCH ×2 (08:00→19:53)
[2019-06-06] MEDS: LIDOCAINE 4% PATCH TOP SCH (08:00)
[2019-06-06] MEDS: TICAGRELOR 90 MG TABLET PO SCH ×2 (08:00→19:51)
[2019-06-06] MEDS: cloNIDine HCL 0.1 MG TAB PO SCH ×2 (08:09→21:07)
[2019-06-06] MEDS: GUAIFENESIN 600 MG SA TAB PO SCH ×2 (08:10→19:53)
[2019-06-06] MEDS: METFORMIN HCL 500 MG TAB PO SCH (08:10)
[2019-06-06] MEDS: VALSARTAN 160 MG TAB PO SCH (08:10)
[2019-06-06] MEDS: RANITIDINE 150 MG TABLET PO SCH ×2 (08:10→19:51)
[2019-06-06] MEDS: FE SULF/FA/VIT B COMP & C TAB PO SCH (08:10)
[2019-06-06] MEDS: NEBIVOLOL HCL 5 MG TAB PO SCH ×2 (08:11→19:51)
[2019-06-06] MEDS: GABAPENTIN 300 MG CAP PO SCH ×3 (08:11→21:07)
[2019-06-06] MEDS: allopurinoL 100 MG TAB PO SCH (08:11)
[2019-06-06 09:12] LABS: Blood Morphology Comment NOTED (NOT SEEN); Platelet Estimate ADEQ
[2019-06-06 09:13] LABS: Anisocytosis 1+
--- NOTE | 2019-06-06 14:22 | FAST ---
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 Juanjo Mccall M.D. ADMISSION DIAGNOSIS: - Stroke 01 - Right Body (Left Brain) (01.2) LEFT MCA INFARCT. EATING: EATING - STEP 1: Does the patient complete the activity by him/herself with no assistance (physical, verbal/nonverbal cueing, setup/clean-up)? No. EATING - STEP 2: Does the patient need only setup/clean-up assistance from one helper? Yes. 1. [id number] ADMISSION PERFORMANCE: Setup or clean-up assistance CODE: 05 ORAL HYGIENE: ORAL HYGIENE - STEP 1: Does the patient complete the activity by him/herself with no assistance (physical, verbal/nonverbal cueing, setup/clean-up)? Yes. 1. [id number] ADMISSION PERFORMANCE: Independent CODE: 06 TOILETING HYGIENE: TOILETING HYGIENE - STEP 1: Does the patient complete the activity by him/herself with no assistance (physical, verbal/nonverbal cueing, setup/clean-up)? Yes. 1. [id number] ADMISSION PERFORMANCE: Independent CODE: 06 BATHING: Not assessed/no information CODE: - DRESSING - UPPER BODY: DRESSING - UPPER BODY - STEP 1: Does the patient complete the activity by him/herself with no assistance (physical, verbal/nonverbal cueing, setup/clean-up)? No. DRESSING - UPPER BODY - STEP 2: Does the patient need only setup/clean-up assistance from one helper? Yes. 1. [id number] ADMISSION PERFORMANCE: Setup or clean-up assistance CODE: 05 DRESSING - LOWER BODY: DRESSING - LOWER BODY - STEP 1: Does the patient complete the activity by him/herself with no assistance (physical, verbal/nonverbal cueing, setup/clean-up)? No. DRESSING - LOWER BODY - STEP 2: Does the patient need only setup/clean-up assistance from one helper? No. DRESSING - LOWER BODY - STEP 3: Does the patient need only verbal/nonverbal cueing or touching/steadying/contact guard assistance fro m one helper? Yes. 1. [id number] ADMISSION PERFORMANCE: Supervision or touching assistance CODE: 04 PUTTING ON/TAKING OFF FOOTWEAR: FOOTWEAR - STEP 1: Does the patient complete the activity by him/herself with no assistance (physical, verbal/nonverbal cueing, setup/clean-up)? No. FOOTWEAR - STEP 2: Does the patient need only setup/clean-up assistance from one helper? No. FOOTWEAR - STEP 3: Does the patient need only verbal/nonverbal cueing or touching/steadying/contact guard assistance fro m one helper? Yes. 1. [id number] ADMISSION PERFORMANCE: Supervision or touching assistance CODE: 04 DOES THE PATIENT USE A WHEELCHAIR/SCOOTER? CODE: EXPR INDICATE THE TYPE OF WHEELCHAIR/SCOOTER USED: CODE: EXPR INDICATE THE TYPE OF WHEELCHAIR/SCOOTER USED: CODE: EXPR BLADDER AND BOWEL: H350. BLADDER CONTINENCE (3-DAY ASSESSMENT PERIOD): Always continent (no documented incontinence) CODE: 0 H400. BOWEL CONTINENCE (3-DAY ASSESSMENT PERIOD): Always continent CODE: 0 SIGNATURE PANEL: The following modified sections: 1. [id number] Admission Performance, 1. [id number] Admission Performance, 1. [id number] Admission Performance, 1. [id number] Admission Performance, 1. [id number] Admission Performance, 1. [id number] Admission Performance, H350. Bladder Continence (3-day assessment period), H400. Bowel Co ntinence (3-day assessment period) were [electronically] signed by Verna [email or web address] on WedJun 06 2019 14:20:52 GMT-0600 (Central Standard Time)
--- NOTE | 2019-06-06 17:50 | R.PN ---
ENCOUNTER DATE AND TIME: 06/06/2019 17:45 (SPINNER OPEN END) NAME BETTY LANCASTER DATE OF : 1940 DATE OF ADMISSION: 05/29/2019 19:32 (SPINNER OPEN END) LEFT MCA INFARCTCHIEF COMPLAINT: Right sided weakness SUBJECTIVE: Pt denied any Shortness of Breath. Pt denied any depression. 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 She had nausea with dizziness. Head CT scan was negative for acute changes. ABG showed slightly low p O2 with normal pCO2. Started O2 2L via nasal cannula. Lactate mildly elevated to 2.1 and procalcitoni n is normal at < 0.05. She required moderate assistance for comprehension. Verbal problem solving done with 80% accuracy. Pr opelled wheelchair 325' with standby assistance. Ambulated 1500' with rolling walker and independence . Up and down 15 steps with standby assistance. WBC 13.6, Hgb 9.2, Stained Glass Joiner 1.47, glucose 92 to 110. VITAL SIGNS Temperature: 97.8 F SBP/DBP: 147/49 Pulse: 64 Resp: 16 MEDICATION ALLERGIES: No Known Drug Allergies (NKDA) ENVIRONMENTAL ALLERGIES: None Known - Substance Allergies None Known - Other Allergies None Known NURSING: - Shower allowing shower - Bladder care per protocol - Skin care per protocol PRECAUTIONS: - Weight Bearing Precaution WBAT right LE ACTIVITIES OOB only with supervision THERAPIES: - Occupational Therapy Cognitive Retraining. Visual Perceptual Training. - Dietary and Nutrition Adequate Nutrition. Nutritional Education. Nutritional Supplements. - Speech Therapy Cognitive Training. Expressive Language Skills. Memory Strategies. Receptive Language Skills. Speech Intelligibility Training. PHYSICAL EXAM - Gen Alert and awake Lying in bed No apparent distress Oriented to: person, time, and place - Skin No skin breakdown. Normacephalic - Eyes No abnormalities - ENMT No abnormalities - Neck No abnormalities No cervical adenopathy - CVS RRR - Chest No abnormalities - Resp Clear to auscultation - Abd Soft - GI Non distended Deferred - No abnormalities - Ext No significant edema - MSK 4+/5 weakness in right upper and lower extremity - Neuro 4/5 strength right upper and lower extremities. - Psych No abnormalities ASSESSMENT: Pt. is a 79 yo Right-handed white female.On 05/14/2019 Pt. presented to [facility] with sudden onset of right-side weakness.On 05/14/2019 she was admitted to [facility] with diagnosis LEFT MCA INFARCT.Her impairment category is Stroke 01 - Right Body (Left Brain) (01.2).Pre-morbidly, Pt. was independent/mod-I in Locomotion, Safety Awareness, Balance, Social Cogni tion, Transfers Control, Sphincter Control, Self-Care, Communication, and Endurance; and she had good Locomotion, Safety Awareness, Balance, Social Cognition, Transfers Control, Self-Care, Communication , Sphincter Control, and Endurance.Currently, she has deficits of Locomotion, Safety Awareness, Kiley ce, Transfers Control, Self-Care, and Endurance.Pt. is now referred to [facility] for acute in-patient rehabilitation in order to maximize patient's functional independence in act ivities of daily living, strength, ROM, and mobility.- Rehab Goal Patient has realistic goal of being discharged at assistance level 6-Florentino to reside at Home with Fam sasha/Relatives. MDM/PLAN: - Physical Therapy Gait dysfunction - to improve, our physical therapists will perform initial evaluation of pt's statu s upon admission and devise an individualized program for Gait Training, and Wheel Chair mobility Inability to transfer - to improve, our physical therapists will perform initial evaluation of pt's status upon admission and devise an individualized program for Bed mobility Need for home safety evaluation - to improve, our physical therapists will perform initial evaluatio n of pt's status upon admission and devise an individualized program for Home Evaluation Need in caregiver upon discharge - to improve, our physical therapists will perform initial evaluati on of pt's status upon admission and devise an individualized program for Caregiver Training New precaution - to improve, our physical therapists will perform initial evaluation of pt's status upon admission and devise an individualized program for Patient precaution education Edema - to improve, our physical therapists will perform initial evaluation of pt's status upon admi ssion and devise an individualized program for Elevation Training, and Lymphedema Therapy Poor balance - to improve, our physical therapists will perform initial evaluation of pt's status up on admission and devise an individualized program for Balance Training Poor endurance - to improve, our physical therapists will perform initial evaluation of pt's status upon admission and devise an individualized program for Endurance Training Weakness - to improve, our physical therapists will perform initial evaluation of pt's status upon a dmission and devise an individualized program for Aquatic Therapy, Neuromuscular Reeducation, and Str engthening Achieving independence - to improve, our physical therapists will perform initial evaluation of pt's status upon admission and devise an individualized program for Community Reintegration Activities - Occupational Therapy ADL deficits - to improve, our occupation therapists will perform initial evaluation of pt's status upon admission and devise an individualized program for Bathing, Bed mobility, Community Reintegratio n, Cooking, Dressing, Eating, Fine Motor Skills, Grooming, Homemaking, Kitchen Mobility, Laundry, Pat ient Education, Safety Awareness, Splinting - Positioning, Transfers(Toilet, Tub, Shower), and Wheel Chair Management Need for career and guidance counselor - to improve, our occupation therapists will perform initial evaluation of pt's status upon admission and devise an individualized program for Caregiver Training Weakness - to improve, our occupation therapists will perform initial evaluation of pt's status upon admission and devise an individualized program for Aquatic Therapy, Balance, Endurance, UE ROM, and UE strengthening - Other See attached MAR (Medication Administration Record) - Diet Type Continue Regular - Diet - Liquid Texture Continue Regular - Tube Feed Continue N/A - Bladder care per protocol - Weight Bearing Precaution WBAT right LE - Skin care per protocol - Diet - Solid Texture Continue Regular - Shower allowing shower for Dementia, TBI, Stroke, or others FUNCTIONAL STATUS: UPDATED AT WEEKLY TEAM CONFERENCE - Bladder Same accident frequency: 7-Ind - No accidents in the past 7 days - Bowel Same accident frequency: 7-Ind - No accidents in the past 7 days - Walking Same score based on distance walked: 0(N/A) Same score based on distance walked: 3(>=150ft) - Wheelchair Same score based on distance traveled: 0(N/A) FUNCTIONAL STATUS: - Self-Care A. Eating Florentino B. Grooming Florentino C. Bathing sup D. Dressing - Upper sup E. Dressing - Lower Marco F. Toileting sup - Sphincter Control G. Bladder control sup H. Bowel control Florentino - Transfers Control I. Bed/Chair/Wheelchair Marco J. Toilet Marco K. Tub/Shower modA - Locomotion L. Walk/Wheelchair (B) modA M. Stairs ADNO - Communication N. Comprehension (B) sup O. Expression (B) Marco - Social Cognition P. Social Interaction Florentino Q. Problem Solving sup R. Memory sup - Endurance Fair - Balance Fair - Safety Awareness Fair QI SCORES: - Self-Care A. Eating 05-Setup or clean-up assistance B. Oral hygiene 05-Setup or clean-up assistance C. Toileting hygiene 03-Partial/moderate assistance E. Shower/bathe self 03-Partial/moderate assistance F. Upper body dressing 04-Supervision or touching assistance G. Lower body dressing 03-Partial/moderate assistance H. Putting on/taking off footwear 03-Partial/moderate assistance - Mobility A. Roll left and right 04-Supervision or touching assistance B. Sit to lying 04-Supervision or touching assistance C. Lying to sitting on side of bed 04-Supervision or touching assistance D. Sit to stand 04-Supervision or touching assistance E. Chair/bvs-dw-[id number] transfer 03-Partial/moderate assistance F. Toilet transfer 03-Partial/moderate assistance G. Car transfer 88-Not attempted due to medical condition or safety concerns I. Walk 10 feet 04-Supervision or touching assistance J. Walk 50 feet with two turns 88-Not attempted due to medical condition or safety concerns K. Walk 150 feet 04-Supervision or touching assistance L. Walking 10 feet on uneven surfaces 88-Not attempted due to medical condition or safety concerns M. 1 step (curb) 88-Not attempted due to medical condition or safety concerns N. 4 steps 88-Not attempted due to medical condition or safety concerns O. 12 steps 88-Not attempted due to medical condition or safety concerns P. Picking up object 88-Not attempted due to medical condition or safety concerns R. Wheel 50 feet with two turns 88-Not attempted due to medical condition or safety concerns S. Wheel 150 feet 88-Not attempted due to medical condition or safety concerns - Bladder and Bowel Bladder continence 0-Always continent Bowel continence 0-Always continent - Endurance Fair - Balance Fair - Safety Awareness Fair CURRENT FUNC. DEFICITS: Self-Care, Mobility, Endurance, Balance, and Safety Awareness SIGNATURE PANEL: (SPINNER OPEN END)
[2019-06-06] MEDS: MELATONIN 5 MG TABLET PO SCH (21:07)
[2019-06-06] MEDS: ATORVASTATIN 80 MG TAB PO SCH (21:07)
--- NOTE | 2019-06-06 21:12 | P.PN ---
Subjective Date of Service: 06/06/19 Chief Complaint: WEAKNESS Subjective: Improving DIARRHEA FROM AUGMENTIN. SHE IS NOT COUGHING ANY LONGER. SHE HAS SOME COUGH, NO UTI SS BUT HAD LOW GRADE FEVER A FEW DAYS AGO. Review of Systems 10-point ROS is otherwise unremarkable Physical Examination - Vital Signs Temperature: 97.3 F Blood Pressure: 138/52 Pulse: 75 Respirations: 18 Pulse Ox (%): 96 - Physical Exam General: Acute distress, Mild distress HEENT: Atraumatic, PERRLA, EOMI Neck: Supple, JVD not distended Respiratory: Clear to auscultation bilaterally, Normal air movement Cardiovascular: Regular rate/rhythm, Normal S1 S2 Gastrointestinal: Normal bowel sounds, No tenderness Musculoskeletal: No tenderness Integumentary: No rashes Neurological: Normal speech, Normal tone, Normal affect Lymphatics: No axilla or inguinal lymphadenopathy - Studies Laboratory Data (last 24 hrs) 06/06/19 06:18: Sodium 141, Potassium 5.0, BUN 33 H, Creatinine 1.47 H, Glucose 110 H 06/06/19 06:18: WBC 13.6 H, Hgb 9.2 L, Hct 29.2 L, Plt Count 348 Medications List Reviewed: Yes Assessment And Plan - Current Problems (Diagnosis) (1) Diabetes Current Visit: Yes Status: Chronic Qualifiers: Diabetes mellitus type: type 2 Diabetes mellitus shelter insulin use: without shelter use Diabetes mellitus complication status: with circulatory complication Diabetes mellitus complication detail: with other circulatory complications Qualified Code(s): E11.59 - Type 2 diabetes mellitus with other circulatory complications (2) Dehydration Current Visit: Yes Status: Chronic Plan: REDUCE DIURETIC TO EVERY OTHER DAY AND ALSO K. (3) Fever Onset Date: 04/07/17 Current Visit: No Status: Acute Plan: UTI START WITH AUGMENTIN. AGREE. STOP AUGMENTIN SHE HAS NO SS. CXR NEG. FEELS A LOT BETTER. WE HAD TO STOP AUGMENTIN SHE HAD SEVERE DIRARRHEA. USUALLY SHE SHOULD HAVE BEEN OKAY. HER WBC COUNT IS RISING NOW. I SUSPECTED THAT IT COULD BE FROM STEROIDS BUT WE STOPPED IT A FEW DAYS AGO AND ONCE AGAIN IT IS STARTIGN TO RISE. SHE DID GROW E COLI IN URINE. I WILL GIVE HER FEW DAYS OF CIPRO. Qualifiers: Encounter type: initial encounter (4) Weakness Onset Date: 04/07/17 Current Visit: No Status: Chronic Plan: HAS HAD CERVICAL RADICULOPATHY. TIA NOW TWICE. WILL CHECK REPORTS FROM [place]. RESUME MEDS AND PT. (5) Atrial fibrillation Current Visit: No Status: Chronic (6) Hypertension Onset Date: 05/20/15 Current Visit: No Status: Chronic Plan: CONT MEDS AND FU DAILY. Qualifiers: Hypertension type: essential hypertension (7) Diarrhea Current Visit: Yes Status: Acute Plan: ABX RELATED. IMMMODIUM. STOP AUGMENTIN.
[2019-06-07] MEDS: LEVOTHYROXINE SOD 0.05 MG TABLET PO SCH (06:22)
[2019-06-07 06:37] LABS: Absolute Lymphocytes (CBC) 1.8 K/uL (0.7-4.9); Basophils % 0.7 % (0-1.3); Lymphocytes % 17.9 % (15.3-44.8); RBC Red Blood Cell Count 3.12 M/uL (3.86-4.86)
[2019-06-07] MEDS: INSULIN -REGULAR HUMAN 50 UNIT/0.5 ML ML SQ SCH ×4 (07:30→20:45)
[2019-06-07] MEDS: FE SULF/FA/VIT B COMP & C TAB PO SCH ×3 (08:00→13:16)
[2019-06-07] MEDS: GLUCERNA SHAKE 237 ML CAN PO SCH ×2 (08:00→20:00)
[2019-06-07] MEDS: LIDOCAINE 4% PATCH TOP SCH (08:00)
[2019-06-07] MEDS: GABAPENTIN 300 MG CAP PO SCH ×3 (08:23→20:43)
[2019-06-07] MEDS: CIPROFLOXACIN HCL 250 MG TAB PO SCH ×2 (08:23→20:44)
[2019-06-07] MEDS: VALSARTAN 160 MG TAB PO SCH (08:24)
[2019-06-07] MEDS: allopurinoL 100 MG TAB PO SCH (08:24)
[2019-06-07] MEDS: GUAIFENESIN 600 MG SA TAB PO SCH ×2 (08:24→20:44)
[2019-06-07] MEDS: TICAGRELOR 90 MG TABLET PO SCH ×2 (08:25→20:43)
[2019-06-07] MEDS: RANITIDINE 150 MG TABLET PO SCH ×2 (08:25→20:43)
[2019-06-07] MEDS: cloNIDine HCL 0.1 MG TAB PO SCH ×2 (08:25→20:43)
[2019-06-07] MEDS: NEBIVOLOL HCL 5 MG TAB PO SCH ×2 (08:26→20:44)
[2019-06-07] MEDS: METFORMIN HCL 500 MG TAB PO SCH (08:27)
[2019-06-07] MEDS: BENZONATATE 100 MG CAP PO PRN (11:52)
--- NOTE | 2019-06-07 12:50 | P.PN ---
Subjective Date of Service: 06/07/19 Chief Complaint: CVA, HTN Subjective: Improving DIARRHEA FROM AUGMENTIN. SHE IS NOT COUGHING ANY LONGER. SHE HAS SOME COUGH, NO UTI SS BUT HAD LOW GRADE FEVER A FEW DAYS AGO. IS DOING GREAT. SHE IS READY TO GO HOME. Review of Systems 10-point ROS is otherwise unremarkable General: Weakness Neurological: As per HPI Physical Examination - Vital Signs Temperature: 97.4 F Blood Pressure: 142/67 Pulse: 70 Respirations: 18 Pulse Ox (%): 99 - Physical Exam General: In no apparent distress, Mild distress HEENT: Atraumatic, PERRLA, EOMI Neck: Supple, JVD not distended Respiratory: Clear to auscultation bilaterally, Normal air movement Cardiovascular: Regular rate/rhythm, Normal S1 S2 Gastrointestinal: Normal bowel sounds, No tenderness Musculoskeletal: No tenderness Integumentary: No rashes Neurological: Normal speech, Normal tone, Normal affect Lymphatics: No axilla or inguinal lymphadenopathy - Studies Laboratory Data (last 24 hrs) 06/07/19 06:20: Sodium 141, Potassium 5.0, BUN 31 H, Creatinine 1.54 H, Glucose 112 H 06/07/19 06:20: WBC 10.1 D, Hgb 9.3 L, Hct 29.0 L, Plt Count 287 Medications List Reviewed: Yes Assessment And Plan - Current Problems (Diagnosis) (1) Diabetes Current Visit: Yes Status: Chronic Qualifiers: Diabetes mellitus type: type 2 Diabetes mellitus [facility] insulin use: without exterminator termite use Diabetes mellitus complication status: with circulatory complication Diabetes mellitus complication detail: with other circulatory complications Qualified Code(s): E11.59 - Type 2 diabetes mellitus with other circulatory complications (2) Dehydration Current Visit: Yes Status: Chronic Plan: REDUCE DIURETIC TO EVERY OTHER DAY AND ALSO K. (3) Fever Onset Date: 04/07/17 Current Visit: No Status: Acute Plan: UTI START WITH AUGMENTIN. AGREE. STOP AUGMENTIN SHE HAS NO SS. CXR NEG. FEELS A LOT BETTER. WE HAD TO STOP AUGMENTIN SHE HAD SEVERE DIRARRHEA. USUALLY SHE SHOULD HAVE BEEN OKAY. HER WBC COUNT IS RISING NOW. I SUSPECTED THAT IT COULD BE FROM STEROIDS BUT WE STOPPED IT A FEW DAYS AGO AND ONCE AGAIN IT IS STARTIGN TO RISE. SHE DID GROW E COLI IN URINE. I WILL GIVE HER FEW DAYS OF CIPRO. WBC COUNT CAME DOWN TO NORMAL ON CIPRO. Qualifiers: Encounter type: initial encounter (4) Weakness Onset Date: 04/07/17 Current Visit: No Status: Chronic Plan: HAS HAD CERVICAL RADICULOPATHY. TIA NOW TWICE. WILL CHECK REPORTS FROM [place]. RESUME MEDS AND PT. (5) Atrial fibrillation Current Visit: No Status: Chronic (6) Hypertension Onset Date: 05/20/15 Current Visit: No Status: Chronic Plan: CONT MEDS AND FU DAILY. Qualifiers: Hypertension type: essential hypertension (7) Diarrhea Current Visit: Yes Status: Acute Plan: ABX RELATED. IMMMODIUM. STOP AUGMENTIN.
--- NOTE | 2019-06-07 18:16 | R.PN ---
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 Pt denied any depression. 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 She had nausea with dizziness. Head CT scan was negative for acute changes. ABG showed slightly low p O2 with normal pCO2. Started O2 2L via nasal cannula. Lactate mildly elevated to 2.1 and procalcitoni n is normal at < 0.05. She required moderate assistance for comprehension. Verbal problem solving done with 80% accuracy. Pr opelled wheelchair 325' with standby assistance. Ambulated 1500' with rolling walker and independence . Up and down 15 steps with independence. WBC 10.1, Hgb 9.3, Regulatory Affairs Coordinator 1.54, glucose 84 to 127. VITAL SIGNS Temperature: 97.4 F SBP/DBP: 142/67 Pulse: 70 Resp: 16 MEDICATION ALLERGIES: No Known Drug Allergies (NKDA) ENVIRONMENTAL ALLERGIES: None Known - Substance Allergies None Known - Other Allergies None Known NURSING: - Shower allowing shower - Bladder care per protocol - Skin care per protocol PRECAUTIONS: - Weight Bearing Precaution WBAT right LE ACTIVITIES OOB only with supervision THERAPIES: - Occupational Therapy Cognitive Retraining. Visual Perceptual Training. - Dietary and Nutrition Adequate Nutrition. Nutritional Education. Nutritional Supplements. - Speech Therapy Cognitive Training. Expressive Language Skills. Memory Strategies. Receptive Language Skills. Speech Intelligibility Training. PHYSICAL EXAM - Gen Alert and awake Lying in bed No apparent distress Oriented to: person, time, and place - Skin No skin breakdown. Normacephalic - Eyes No abnormalities - ENMT No abnormalities - Neck No abnormalities No cervical adenopathy - CVS RRR - Chest No abnormalities - Resp Clear to auscultation - Abd Soft - GI Non distended Deferred - No abnormalities - Ext No significant edema - MSK 4+/5 weakness in right upper and lower extremity - Neuro 4/5 strength right upper and lower extremities. - Psych No abnormalities ASSESSMENT: Pt. is a 79 yo Right-handed white female.On 05/14/2019 Pt. presented to [facility] with sudden onset of right-side weakness.On 05/14/2019 she was admitted to [facility] with diagnosis LEFT MCA INFARCT.Her impairment category is Stroke 01 - Right Body (Left Brain) (01.2).Pre-morbidly, Pt. was independent/mod-I in Locomotion, Safety Awareness, Balance, Social Cogni tion, Transfers Control, Sphincter Control, Self-Care, Communication, and Endurance; and she had good Locomotion, Safety Awareness, Balance, Social Cognition, Transfers Control, Self-Care, Communication , Sphincter Control, and Endurance.Currently, she has deficits of Locomotion, Safety Awareness, Kiley ce, Transfers Control, Self-Care, and Endurance.Pt. is now referred to [facility] for acute in-patient rehabilitation in order to maximize patient's functional independence in act ivities of daily living, strength, ROM, and mobility.- Rehab Goal Patient has realistic goal of being discharged at assistance level 6-Florentino to reside at Home with Fam sasha/Relatives. MDM/PLAN: - Physical Therapy Gait dysfunction - to improve, our physical therapists will perform initial evaluation of pt's statu s upon admission and devise an individualized program for Gait Training, and Wheel Chair mobility Inability to transfer - to improve, our physical therapists will perform initial evaluation of pt's status upon admission and devise an individualized program for Bed mobility Need for home safety evaluation - to improve, our physical therapists will perform initial evaluatio n of pt's status upon admission and devise an individualized program for Home Evaluation Need in caregiver upon discharge - to improve, our physical therapists will perform initial evaluati on of pt's status upon admission and devise an individualized program for Caregiver Training New precaution - to improve, our physical therapists will perform initial evaluation of pt's status upon admission and devise an individualized program for Patient precaution education Edema - to improve, our physical therapists will perform initial evaluation of pt's status upon admi ssion and devise an individualized program for Elevation Training, and Lymphedema Therapy Poor balance - to improve, our physical therapists will perform initial evaluation of pt's status up on admission and devise an individualized program for Balance Training Poor endurance - to improve, our physical therapists will perform initial evaluation of pt's status upon admission and devise an individualized program for Endurance Training Weakness - to improve, our physical therapists will perform initial evaluation of pt's status upon a dmission and devise an individualized program for Aquatic Therapy, Neuromuscular Reeducation, and Str engthening Achieving independence - to improve, our physical therapists will perform initial evaluation of pt's status upon admission and devise an individualized program for Community Reintegration Activities - Occupational Therapy ADL deficits - to improve, our occupation therapists will perform initial evaluation of pt's status upon admission and devise an individualized program for Bathing, Bed mobility, Community Reintegratio n, Cooking, Dressing, Eating, Fine Motor Skills, Grooming, Homemaking, Kitchen Mobility, Laundry, Pat ient Education, Safety Awareness, Splinting - Positioning, Transfers(Toilet, Tub, Shower), and Wheel Chair Management Need for respite care provider - to improve, our occupation therapists will perform initial evaluation of pt's status upon admission and devise an individualized program for Caregiver Training Weakness - to improve, our occupation therapists will perform initial evaluation of pt's status upon admission and devise an individualized program for Aquatic Therapy, Balance, Endurance, UE ROM, and UE strengthening - Other See attached MAR (Medication Administration Record) - Diet Type Continue Regular - Diet - Liquid Texture Continue Regular - Tube Feed Continue N/A - Bladder care per protocol - Weight Bearing Precaution WBAT right LE - Skin care per protocol - Diet - Solid Texture Continue Regular - Shower allowing shower for Dementia, TBI, Stroke, or others FUNCTIONAL STATUS: UPDATED AT WEEKLY TEAM CONFERENCE - Bladder Same accident frequency: 7-Ind - No accidents in the past 7 days - Bowel Same accident frequency: 7-Ind - No accidents in the past 7 days - Walking Same score based on distance walked: 0(N/A) Same score based on distance walked: 3(>=150ft) - Wheelchair Same score based on distance traveled: 0(N/A) FUNCTIONAL STATUS: - Self-Care A. Eating Florentino B. Grooming Florentino C. Bathing sup D. Dressing - Upper sup E. Dressing - Lower Marco F. Toileting sup - Sphincter Control G. Bladder control sup H. Bowel control Florentino - Transfers Control I. Bed/Chair/Wheelchair Marco J. Toilet Marco K. Tub/Shower modA - Locomotion L. Walk/Wheelchair (B) modA M. Stairs ADNO - Communication N. Comprehension (B) sup O. Expression (B) Marco - Social Cognition P. Social Interaction Florentino Q. Problem Solving sup R. Memory sup - Endurance Fair - Balance Fair - Safety Awareness Fair QI SCORES: - Self-Care A. Eating 05-Setup or clean-up assistance B. Oral hygiene 05-Setup or clean-up assistance C. Toileting hygiene 03-Partial/moderate assistance E. Shower/bathe self 03-Partial/moderate assistance F. Upper body dressing 04-Supervision or touching assistance G. Lower body dressing 03-Partial/moderate assistance H. Putting on/taking off footwear 03-Partial/moderate assistance - Mobility A. Roll left and right 04-Supervision or touching assistance B. Sit to lying 04-Supervision or touching assistance C. Lying to sitting on side of bed 04-Supervision or touching assistance D. Sit to stand 04-Supervision or touching assistance E. Chair/ase-yu-sufpr transfer 03-Partial/moderate assistance F. Toilet transfer 03-Partial/moderate assistance G. Car transfer 88-Not attempted due to medical condition or safety concerns I. Walk 10 feet 04-Supervision or touching assistance J. Walk 50 feet with two turns 88-Not attempted due to medical condition or safety concerns K. Walk 150 feet 04-Supervision or touching assistance L. Walking 10 feet on uneven surfaces 88-Not attempted due to medical condition or safety concerns M. 1 step (curb) 88-Not attempted due to medical condition or safety concerns N. 4 steps 88-Not attempted due to medical condition or safety concerns O. 12 steps 88-Not attempted due to medical condition or safety concerns P. Picking up object 88-Not attempted due to medical condition or safety concerns R. Wheel 50 feet with two turns 88-Not attempted due to medical condition or safety concerns S. Wheel 150 feet 88-Not attempted due to medical condition or safety concerns - Bladder and Bowel Bladder continence 0-Always continent Bowel continence 0-Always continent - Endurance Fair - Balance Fair - Safety Awareness Fair CURRENT FUNC. 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
[2019-06-07] MEDS: MELATONIN 5 MG TABLET PO SCH (20:43)
[2019-06-07] MEDS: ATORVASTATIN 80 MG TAB PO SCH (20:44)
[2019-06-07] MEDS: HYDRALAZINE HCL 25 MG TABLET PO SCH (20:44)
[2019-06-07] MEDS: IPRATROPIUM BROM 0.5MG/2.5ML NEB PRN (21:00)
[2019-06-08] MEDS: LEVOTHYROXINE SOD 0.05 MG TABLET PO SCH (06:34)
[2019-06-08 06:41] LABS: Absolute Lymphocytes (CBC) 1.9 K/uL (0.7-4.9); Basophils % 0.6 % (0-1.3); Hematocrit 27.9 % (36.0-45.0); Lymphocytes % 19.3 % (15.3-44.8); MPV 9.2 fL (7.6-11.3); RBC Red Blood Cell Count 3.01 M/uL (3.86-4.86)
[2019-06-08 07:16] LABS: Potassium 5.3 mmol/L (3.5-5.1)
[2019-06-08 07:20] LABS: Albumin 2.1 g/dL (3.4-5.0); Prealbumin 25.7 mg/dL (20-40)
[2019-06-08] MEDS: INSULIN -REGULAR HUMAN 50 UNIT/0.5 ML ML SQ SCH ×4 (07:30→20:56)
[2019-06-08] MEDS: GLUCERNA SHAKE 237 ML CAN PO SCH ×2 (08:00→20:00)
[2019-06-08] MEDS: LIDOCAINE 4% PATCH TOP SCH (08:00)
[2019-06-08] MEDS: cloNIDine HCL 0.1 MG TAB PO SCH ×2 (08:36→20:55)
[2019-06-08] MEDS: CIPROFLOXACIN HCL 250 MG TAB PO SCH ×2 (08:38→20:54)
[2019-06-08] MEDS: METFORMIN HCL 500 MG TAB PO SCH (08:38)
[2019-06-08] MEDS: allopurinoL 100 MG TAB PO SCH (08:38)
[2019-06-08] MEDS: GUAIFENESIN 600 MG SA TAB PO SCH ×2 (08:38→20:54)
[2019-06-08] MEDS: GABAPENTIN 300 MG CAP PO SCH ×3 (08:38→20:55)
[2019-06-08] MEDS: TICAGRELOR 90 MG TABLET PO SCH ×2 (08:39→20:55)
[2019-06-08] MEDS: RANITIDINE 150 MG TABLET PO SCH ×2 (08:39→20:56)
[2019-06-08] MEDS: HYDRALAZINE HCL 25 MG TABLET PO SCH ×2 (08:39→20:56)
[2019-06-08] MEDS: NEBIVOLOL HCL 5 MG TAB PO SCH ×2 (08:40→20:55)
[2019-06-08] MEDS ORDERED: TRAMADOL HCL 50 MG TAB PO PRN (11:30)
[2019-06-08] MEDS: FE SULF/FA/VIT B COMP & C TAB PO SCH (12:33)
--- NOTE | 2019-06-08 17:16 | PN ---
Subjective: Ms. Lancaster had some hoarseness today with laryngitis. Denies any chest pain, nausea, vom iting. Physical Examination: Vital Signs: Blood pressure 156/69, is fluctuating anywhere from 123 to 156. Sugar 73. Pulse 70, t emperature 97.6. HEENT: No JVD. No carotid bruits. Chest: Clear. Heart: Regular. Abdomen: No guarding, no rebound, no rigidity. Laboratory Data: Creatinine is down to 1.46 after stopping losartan. Hemoglobin is 8.8, fluctuating between 9 and 8. Potassium 5.3. Assessment And Plan: 1.Recent cerebrovascular accident with carotid stenosis, status post stent placement. Continue OT a nd PT. Patient starting to be more independent. 2.Hypertension. We are managing the blood pressure medications. Now valsartan has been stopped and hydralazine has been restarted to see if I see any improvement on the creatinine. 3.Laryngitis. Patient will notify us if there is a continuation and if there is sputum production. RVD/MODL Voice ID: [id number] Report ID: [id number]
--- NOTE | 2019-06-08 17:22 | R.PN ---
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 Pt denied any depression. 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 She had nausea with dizziness. Head CT scan was negative for acute changes. ABG showed slightly low p O2 with normal pCO2. Started O2 2L via nasal cannula. Lactate mildly elevated to 2.1 and procalcitoni n is normal at < 0.05. She required moderate assistance for comprehension. Verbal problem solving done with 80% accuracy. Pr opelled wheelchair 325' with standby assistance. Ambulated 1500' with rolling walker and independence . Up and down 15 steps with independence. 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 Prealbumin 25.7. VITAL SIGNS Temperature: 97.4 F SBP/DBP: 156/69 Pulse: 68 Resp: 16 MEDICATION ALLERGIES: No Known Drug Allergies (NKDA) ENVIRONMENTAL ALLERGIES: None Known - Substance Allergies None Known - Other Allergies None Known NURSING: - Shower allowing shower - Bladder care per protocol - Skin care per protocol PRECAUTIONS: - Weight Bearing Precaution WBAT right LE ACTIVITIES OOB only with supervision THERAPIES: - Occupational Therapy Cognitive Retraining. Visual Perceptual Training. - Dietary and Nutrition Adequate Nutrition. Nutritional Education. Nutritional Supplements. - Speech Therapy Cognitive Training. Expressive Language Skills. Memory Strategies. Receptive Language Skills. Speech Intelligibility Training. PHYSICAL EXAM - Gen Alert and awake Lying in bed No apparent distress Oriented to: person, time, and place - Skin No skin breakdown. Normacephalic - Eyes No abnormalities - ENMT No abnormalities - Neck No abnormalities No cervical adenopathy - CVS RRR - Chest No abnormalities - Resp Clear to auscultation - Abd Soft - GI Non distended Deferred - No abnormalities - Ext No significant edema - MSK 4+/5 weakness in right upper and lower extremity - Neuro 4/5 strength right upper and lower extremities. - Psych No abnormalities ASSESSMENT: Pt. is a 79 yo Right-handed white female.On 05/14/2019 Pt. presented to [facility] with sudden onset of right-side weakness.On 05/14/[address] [facility] with diagnosis LEFT MCA INFARCT.Her impairment category is Stroke 01 - Right Body (Left Brain) (01.2).Pre-morbidly, Pt. was independent/mod-I in Locomotion, Safety Awareness, Balance, Social Cogni tion, Transfers Control, Sphincter Control, Self-Care, Communication, and Endurance; and she had good Locomotion, Safety Awareness, Balance, Social Cognition, Transfers Control, Self-Care, Communication , Sphincter Control, and Endurance.Currently, she has deficits of Locomotion, Safety Awareness, Kiley ce, Transfers Control, Self-Care, and Endurance.Pt. is now referred to [facility] for acute in-patient rehabilitation in order to maximize patient's functional independence in act ivities of daily living, strength, ROM, and mobility.- Rehab Goal Patient has realistic goal of being discharged at assistance level 6-Florentino to reside at Home with Fam sasha/Relatives. MDM/PLAN: - Physical Therapy Gait dysfunction - to improve, our physical therapists will perform initial evaluation of pt's statu s upon admission and devise an individualized program for Gait Training, and Wheel Chair mobility Inability to transfer - to improve, our physical therapists will perform initial evaluation of pt's status upon admission and devise an individualized program for Bed mobility Need for home safety evaluation - to improve, our physical therapists will perform initial evaluatio n of pt's status upon admission and devise an individualized program for Home Evaluation Need in caregiver upon discharge - to improve, our physical therapists will perform initial evaluati on of pt's status upon admission and devise an individualized program for Caregiver Training New precaution - to improve, our physical therapists will perform initial evaluation of pt's status upon admission and devise an individualized program for Patient precaution education Edema - to improve, our physical therapists will perform initial evaluation of pt's status upon admi ssion and devise an individualized program for Elevation Training, and Lymphedema Therapy Poor balance - to improve, our physical therapists will perform initial evaluation of pt's status up on admission and devise an individualized program for Balance Training Poor endurance - to improve, our physical therapists will perform initial evaluation of pt's status upon admission and devise an individualized program for Endurance Training Weakness - to improve, our physical therapists will perform initial evaluation of pt's status upon a dmission and devise an individualized program for Aquatic Therapy, Neuromuscular Reeducation, and Str engthening Achieving independence - to improve, our physical therapists will perform initial evaluation of pt's status upon admission and devise an individualized program for Community Reintegration Activities - Occupational Therapy ADL deficits - to improve, our occupation therapists will perform initial evaluation of pt's status upon admission and devise an individualized program for Bathing, Bed mobility, Community Reintegratio n, Cooking, Dressing, Eating, Fine Motor Skills, Grooming, Homemaking, Kitchen Mobility, Laundry, Pat ient Education, Safety Awareness, Splinting - Positioning, Transfers(Toilet, Tub, Shower), and Wheel Chair Management Need for primary care provider - to improve, our occupation therapists will perform initial evaluation of pt's status upon admission and devise an individualized program for Caregiver Training Weakness - to improve, our occupation therapists will perform initial evaluation of pt's status upon admission and devise an individualized program for Aquatic Therapy, Balance, Endurance, UE ROM, and UE strengthening - Other See attached MAR (Medication Administration Record) - Diet Type Continue Regular - Diet - Liquid Texture Continue Regular - Tube Feed Continue N/A - Bladder care per protocol - Weight Bearing Precaution WBAT right LE - Skin care per protocol - Diet - Solid Texture Continue Regular - Shower allowing shower for Dementia, TBI, Stroke, or others FUNCTIONAL STATUS: UPDATED AT WEEKLY TEAM CONFERENCE - Bladder Same accident frequency: 7-Ind - No accidents in the past 7 days - Bowel Same accident frequency: 7-Ind - No accidents in the past 7 days - Walking Same score based on distance walked: 0(N/A) Same score based on distance walked: 3(>=150ft) - Wheelchair Same score based on distance traveled: 0(N/A) FUNCTIONAL STATUS: - Self-Care A. Eating Florentino B. Grooming Florentino C. Bathing sup D. Dressing - Upper sup E. Dressing - Lower Marco F. Toileting sup - Sphincter Control G. Bladder control sup H. Bowel control Florentino - Transfers Control I. Bed/Chair/Wheelchair Marco J. Toilet Marco K. Tub/Shower modA - Locomotion L. Walk/Wheelchair (B) modA M. Stairs ADNO - Communication N. Comprehension (B) sup O. Expression (B) Marco - Social Cognition P. Social Interaction Florentino Q. Problem Solving sup R. Memory sup - Endurance Fair - Balance Fair - Safety Awareness Fair QI SCORES: - Self-Care A. Eating 05-Setup or clean-up assistance B. Oral hygiene 05-Setup or clean-up assistance C. Toileting hygiene 03-Partial/moderate assistance E. Shower/bathe self 03-Partial/moderate assistance F. Upper body dressing 04-Supervision or touching assistance G. Lower body dressing 03-Partial/moderate assistance H. Putting on/taking off footwear 03-Partial/moderate assistance - Mobility A. Roll left and right 04-Supervision or touching assistance B. Sit to lying 04-Supervision or touching assistance C. Lying to sitting on side of bed 04-Supervision or touching assistance D. Sit to stand 04-Supervision or touching assistance E. Chair/[id number]-fhhtr transfer 03-Partial/moderate assistance F. Toilet transfer 03-Partial/moderate assistance G. Car transfer 88-Not attempted due to medical condition or safety concerns I. Walk 10 feet 04-Supervision or touching assistance J. Walk 50 feet with two turns 88-Not attempted due to medical condition or safety concerns K. Walk 150 feet 04-Supervision or touching assistance L. Walking 10 feet on uneven surfaces 88-Not attempted due to medical condition or safety concerns M. 1 step (curb) 88-Not attempted due to medical condition or safety concerns N. 4 steps 88-Not attempted due to medical condition or safety concerns O. 12 steps 88-Not attempted due to medical condition or safety concerns P. Picking up object 88-Not attempted due to medical condition or safety concerns R. Wheel 50 feet with two turns 88-Not attempted due to medical condition or safety concerns S. Wheel 150 feet 88-Not attempted due to medical condition or safety concerns - Bladder and Bowel Bladder continence 0-Always continent Bowel continence 0-Always continent - Endurance Fair - Balance Fair - Safety Awareness Fair CURRENT FUNC. DEFICITS: Self-Care, Mobility, Endurance, Balance, and Safety Awareness SIGNATURE PANEL: (CAR BLOCKER)
[2019-06-08] MEDS: ATORVASTATIN 80 MG TAB PO SCH (20:54)
[2019-06-08] MEDS: MELATONIN 5 MG TABLET PO SCH (20:55)
[2019-06-09 06:54] LABS: Absolute Lymphocytes (CBC) 1.5 K/uL (0.7-4.9); Basophils % 0.5 % (0-1.3); Hematocrit 28.3 % (36.0-45.0); Lymphocytes % 14.5 % (15.3-44.8); RBC Red Blood Cell Count 3.05 M/uL (3.86-4.86)
[2019-06-09 07:10] LABS: Potassium 5.2 mmol/L (3.5-5.1)
[2019-06-09] MEDS: LEVOTHYROXINE SOD 0.05 MG TABLET PO SCH (07:15)
[2019-06-09] MEDS: INSULIN -REGULAR HUMAN 50 UNIT/0.5 ML ML SQ SCH ×4 (07:30→20:36)
[2019-06-09] MEDS: ACETAMINOPHEN 500 MG TAB PO PRN (07:47)
[2019-06-09] MEDS: NEBIVOLOL HCL 5 MG TAB PO SCH ×2 (07:48→20:34)
[2019-06-09] MEDS: TICAGRELOR 90 MG TABLET PO SCH ×2 (07:48→20:35)
[2019-06-09] MEDS: RANITIDINE 150 MG TABLET PO SCH ×2 (07:49→20:33)
[2019-06-09] MEDS: allopurinoL 100 MG TAB PO SCH (07:49)
[2019-06-09] MEDS: cloNIDine HCL 0.1 MG TAB PO SCH ×2 (07:49→20:33)
[2019-06-09] MEDS: CIPROFLOXACIN HCL 250 MG TAB PO SCH ×2 (07:50→20:34)
[2019-06-09] MEDS: GUAIFENESIN 600 MG SA TAB PO SCH ×2 (07:51→20:34)
[2019-06-09] MEDS: GABAPENTIN 300 MG CAP PO SCH ×3 (07:51→20:34)
[2019-06-09] MEDS: METFORMIN HCL 500 MG TAB PO SCH (07:51)
[2019-06-09] MEDS: GLUCERNA SHAKE 237 ML CAN PO SCH ×2 (08:00→20:35)
[2019-06-09] MEDS: LIDOCAINE 4% PATCH TOP SCH (08:00)
[2019-06-09] MEDS: HYDRALAZINE HCL 25 MG TABLET PO SCH ×2 (09:38→20:33)
--- NOTE | 2019-06-09 10:08 | P.RH.PN ---
Estimated Length of Stay: 15 Expected Discharge Date: 06/12/19 Discharge Disposition Plan: Home Family Support: Yes Mcfp Goal: Mobility, Transfers, Self Care Vital Signs: Last Vital Signs Temp 97.3 F 06/09/19 07:02 Pulse 58 06/09/19 07:49 Resp 16 06/09/19 07:02 BP 146/56 H 06/09/19 07:49 Pulse Ox 94 06/09/19 07:02 Laboratory: Laboratory Last Values WBC 10.6 K/uL (4.3-10.9) 06/09/19 06:26 RBC 3.05 M/uL (3.86-4.86) L 06/09/19 06:26 Hgb 9.1 g/dL (12.0-15.0) L 06/09/19 06:26 Hct 28.3 % (36.0-45.0) L 06/09/19 06:26 MCV 92.8 fL (80-100) 06/09/19 06:26 MCH 29.8 pg (27.0-35.0) 06/09/19 06:26 MCHC 32.0 g/dL (32.0-36.0) 06/09/19 06:26 RDW 15.8 % (12.1-15.2) H 06/09/19 06:26 Plt Count 263 K/uL (152-406) 06/09/19 06:26 MPV 9.0 fL (7.6-11.3) 06/09/19 06:26 Neutrophils % 73.1 % (41.7-73.7) 06/09/19 06:26 Lymphocytes % 14.5 % (15.3-44.8) L 06/09/19 06:26 Monocytes % 8.1 % (3.3-12.3) 06/09/19 06:26 Eosinophils % 3.8 % (0-4.4) 06/09/19 06:26 Basophils % 0.5 % (0-1.3) 06/09/19 06:26 Absolute Neutrophils 7.8 K/uL (1.8-8.0) 06/09/19 06:26 Segmented Neutrophils 70 % (40-80) 06/06/19 06:18 Band Neutrophils 2 % (0-1) H 06/04/19 06:23 Absolute Lymphocytes 1.5 K/uL (0.7-4.9) 06/09/19 06:26 Lymphocytes 14 % (15-42) L 06/06/19 06:18 Monocytes 9 % (0-10) 06/06/19 06:18 Absolute Monocytes 0.9 K/uL (0.1-1.3) 06/09/19 06:26 Eosinophils 5 % (0-3) H 06/06/19 06:18 Absolute Eosinophils 0.4 K/uL (0-0.5) 06/09/19 06:26 Absolute Basophils 0.1 K/uL (0-0.5) 06/09/19 06:26 Metamyelocytes 1 % (0-0) H 06/06/19 06:18 Myelocytes 1 % (0-0) H 06/06/19 06:18 Anisocytosis 1+ 06/06/19 06:18 Morphology Comment Noted (NOT SEEN) 06/06/19 06:18 pH 7.39 (7.35-7.45) 05/31/19 13:55 pCO2 37.4 mmHG (35-45) 05/31/19 13:55 pO2 73.4 mmHG (75-100) L 05/31/19 13:55 HCO3 22.3 mmol/L (22-28) 05/31/19 13:55 Base Excess -1.9 mmol/L 05/31/19 13:55 Oxyhemoglobin 91.6 % (94-97) L 05/31/19 13:55 ABG O2 Sat (Measured) 94.0 % (92-98.5) 05/31/19 13:55 ABG Carboxyhemoglobin 1.4 % (0-1.5) 05/31/19 13:55 ABG Methemoglobin 1.1 % (0-1.5) 05/31/19 13:55 Other Total Hgb 9.6 g/dl (12-18) L 05/31/19 13:55 Inspired O2 21.0 % 05/31/19 13:55 Sodium 141 mmol/L (136-145) 06/09/19 06:26 Potassium 5.2 mmol/L (3.5-5.1) H 06/09/19 06:26 Chloride 111 mmol/L (98-107) H 06/09/19 06:26 Carbon Dioxide 24 mmol/L (21-32) 06/09/19 06:26 BUN 25 mg/dL (7-18) H 06/09/19 06:26 Creatinine 1.57 mg/dL (0.55-1.3) H 06/09/19 06:26 Estimated GFR 32 mL/min (=/>90) L 06/09/19 06:26 Glucose 113 mg/dL (74-106) H 06/09/19 06:26 POC Glucose 105 mg/dl (65-120) 06/09/19 07:31 Lactic Acid 1.8 mmol/L (0.4-2.0) 05/31/19 17:04 Calcium 9.1 mg/dL (8.5-10.1) 06/09/19 06:26 Magnesium 2.0 mg/dL (1.8-2.4) D 06/08/19 06:10 Albumin 2.1 g/dL (3.4-5.0) L 06/08/19 06:10 Prealbumin 25.7 mg/dL (20-40) 06/08/19 06:10 Procalcitonin 0.05 ng/mL (<0.50) 05/31/19 12:50 Urine Color Yellow 05/30/19 16:00 Urine Appearance Cloudy 05/30/19 16:00 Urine pH 5.0 (5.0-7.0) 05/30/19 16:00 Ur Specific [place] 1.015 (1.005-1.030) 05/30/19 16:00 Glucose (UA)(Auto) Negative (NEG) 05/30/19 16:00 Urine Ketones Negative (NEG) 05/30/19 16:00 Urine Blood Negative (NEG) 05/30/19 16:00 Urine Nitrite Negative (NEG) 05/30/19 16:00 Urine Bilirubin Negative (NEG) 05/30/19 16:00 Urine Urobilinogen 0.2 mg/dL (0.2-1.0) 05/30/19 16:00 Ur Leukocyte Esterase 3+ (NEG) H 05/30/19 16:00 Urine RBC <5 /HPF (NONE SEEN) 05/30/19 16:00 Urine WBC >50 /HPF (<5) H 05/30/19 16:00 Ur Squamous Epith Cells <5 /HPF (NONE SEEN) 05/30/19 16:00 Urine Bacteria >50 /HPF (<20) H 05/30/19 16:00 Urine Culture Reflexed Reflexed 05/30/19 16:00 Urine Total Protein 2+ (NEG) H 05/30/19 16:00 C. difficile Ag & Toxin Ag neg : tox neg (NEG : NEG) 06/02/19 13:45 Weight: 174 lb 4.8 oz Wound Present: No Closed Surgical Incision Present: No Negative Pressure Wound Therapy Present: No Physician Update: Labs reviewed and are stable. She is doing well with all therapy. She is modified independent with all activties. Will be discharged home with home health. Medical Issues: Patient is always continent with bladder and bowel. Speech Therapy Update: Patient has made significant progress on her overall cognitive-communication skills. She exhibits a min (trace) degree of impairment which tends to reveal itself during higher level/complex cognitive tasks such as mental math, performing calculations and converting measurements. She responds well to a distraction free environment with extra time to process /respond and occasional reminders/cues. Patient's ability to return home at prior level of functioning does not appear to be limited by her current cognitive-linguistic functioning. However, at this time it is recommended that she have close supv and assistance for at least the first couple of days. Summary: Patient's care plan and senior living goals have been reviewed and revised as necessary. Please see the Rehabilitation Signature page for all necessary signatures.
[2019-06-09] MEDS: FE SULF/FA/VIT B COMP & C TAB PO SCH (12:25)
--- NOTE | 2019-06-09 13:42 | P.PN ---
Subjective Date of Service: 06/09/19 Chief Complaint: CVA, HTN Subjective: Improving DIARRHEA FROM AUGMENTIN. SHE IS NOT COUGHING ANY LONGER. SHE HAS SOME COUGH, NO UTI SS BUT HAD LOW GRADE FEVER A FEW DAYS AGO. IS DOING GREAT. SHE IS READY TO GO HOME. SORE THROAT, COUGH, BETTER. SOME. Review of Systems 10-point ROS is otherwise unremarkable General: Weakness, Malaise Physical Examination - Vital Signs Temperature: 97.3 F Blood Pressure: 146/56 Pulse: 58 Respirations: 16 Pulse Ox (%): 94 - Physical Exam HEENT: Atraumatic, PERRLA, EOMI Neck: Supple, JVD not distended Respiratory: Clear to auscultation bilaterally, Normal air movement Cardiovascular: Regular rate/rhythm, Normal S1 S2 Gastrointestinal: Normal bowel sounds, No tenderness Musculoskeletal: No tenderness Integumentary: No rashes Neurological: Normal speech, Normal tone, Normal affect, Abnormal strength ( SOME WEAKNESS. L.) Lymphatics: No axilla or inguinal lymphadenopathy - Studies Laboratory Data (last 24 hrs) 06/09/19 06:26: Sodium 141, Potassium 5.2 H, BUN 25 H, Creatinine 1.57 H, Glucose 113 H 06/09/19 06:26: WBC 10.6, Hgb 9.1 L, Hct 28.3 L, Plt Count 263 Medications List Reviewed: Yes Assessment And Plan - Current Problems (Diagnosis) (1) Diabetes Current Visit: Yes Status: Chronic Qualifiers: Diabetes mellitus type: type 2 Diabetes mellitus ferry terminal supervisor insulin use: without ferry terminal supervisor use Diabetes mellitus complication status: with circulatory complication Diabetes mellitus complication detail: with other circulatory complications Qualified Code(s): E11.59 - Type 2 diabetes mellitus with other circulatory complications (2) Dehydration Current Visit: Yes Status: Chronic Plan: REDUCE DIURETIC TO EVERY OTHER DAY AND ALSO K. (3) Fever Onset Date: 04/07/17 Current Visit: No Status: Acute Plan: UTI START WITH AUGMENTIN. AGREE. STOP AUGMENTIN SHE HAS NO SS. CXR NEG. FEELS A LOT BETTER. WE HAD TO STOP AUGMENTIN SHE HAD SEVERE DIRARRHEA. USUALLY SHE SHOULD HAVE BEEN OKAY. HER WBC COUNT IS RISING NOW. I SUSPECTED THAT IT COULD BE FROM STEROIDS BUT WE STOPPED IT A FEW DAYS AGO AND ONCE AGAIN IT IS STARTIGN TO RISE. SHE DID GROW E COLI IN URINE. I WILL GIVE HER FEW DAYS OF CIPRO. WBC COUNT CAME DOWN TO NORMAL ON CIPRO. Qualifiers: Encounter type: initial encounter (4) Weakness Onset Date: 04/07/17 Current Visit: No Status: Chronic Plan: HAS HAD CERVICAL RADICULOPATHY. TIA NOW TWICE. WILL CHECK REPORTS FROM [place]. RESUME MEDS AND PT. (5) Atrial fibrillation Current Visit: No Status: Chronic (6) Hypertension Onset Date: 05/20/15 Current Visit: No Status: Chronic Plan: CONT MEDS AND FU DAILY. Qualifiers: Hypertension type: essential hypertension (7) Diarrhea Current Visit: Yes Status: Acute Plan: ABX RELATED. IMMMODIUM. STOP AUGMENTIN.
--- NOTE | 2019-06-09 15:02 | FAST ---
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 Juanjo Mccall M.D. ADMISSION DIAGNOSIS: - Stroke 01 - Right Body (Left Brain) (01.2) LEFT MCA INFARCT. EATING: Not assessed/no information CODE: - ORAL HYGIENE: ORAL HYGIENE - STEP 1: Does the patient complete the activity by him/herself with no assistance (physical, verbal/nonverbal cueing, setup/clean-up)? Yes. 1. ADMISSION PERFORMANCE: Independent CODE: 06 TOILETING HYGIENE: Not assessed/no information CODE: - BATHING: SHOWER/BATHE SELF - STEP 1: Does the patient complete the activity by him/herself with no assistance (physical, verbal/nonverbal cueing, setup/clean-up)? Yes. 1. ADMISSION PERFORMANCE: Independent CODE: 06 DRESSING - UPPER BODY: DRESSING - UPPER BODY - STEP 1: Does the patient complete the activity by him/herself with no assistance (physical, verbal/nonverbal cueing, setup/clean-up)? Yes. 1. ADMISSION PERFORMANCE: Independent CODE: 06 DRESSING - LOWER BODY: DRESSING - LOWER BODY - STEP 1: Does the patient complete the activity by him/herself with no assistance (physical, verbal/nonverbal cueing, setup/clean-up)? Yes. 1. ADMISSION PERFORMANCE: Independent CODE: 06 PUTTING ON/TAKING OFF FOOTWEAR: FOOTWEAR - STEP 1: Does the patient complete the activity by him/herself with no assistance (physical, verbal/nonverbal cueing, setup/clean-up)? Yes. 1. ADMISSION PERFORMANCE: Independent CODE: 06 DOES THE PATIENT USE A WHEELCHAIR/SCOOTER? CODE: EXPR INDICATE THE TYPE OF WHEELCHAIR/SCOOTER USED: CODE: EXPR INDICATE THE TYPE OF WHEELCHAIR/SCOOTER USED: CODE: EXPR BLADDER AND BOWEL: CODE: EXPR CODE: EXPR SIGNATURE PANEL: The following modified sections: 1. [id number] Admission Performance, 1. [id number] Admission Performance, 1. [id number] Admission Performance, 1. [id number] Admission Performance, 1. [id number] Admission Performance were [electronically] signed by BRIDGETTE Vasques on WedJun 09 2019 15:01:14 GMT-0600 (Central Standard Time)
--- NOTE | 2019-06-09 15:52 | FAST ---
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 Juanjo Mccall M.D. ADMISSION DIAGNOSIS: - Stroke 01 - Right Body (Left Brain) (01.2) LEFT MCA INFARCT. ROLL LEFT AND RIGHT: ROLL LEFT AND RIGHT - STEP 1: Does the patient complete the activity by him/herself with no assistance (physical, verbal/nonverbal cueing, setup/clean-up)? Yes. 1. [id number] ADMISSION PERFORMANCE: Independent CODE: 06 SIT TO LYING: SIT TO LYING - STEP 1: Does the patient complete the activity by him/herself with no assistance (physical, verbal/nonverbal cueing, setup/clean-up)? Yes. 1. [id number] ADMISSION PERFORMANCE: Independent CODE: 06 LYING TO SITTING: LYING TO SITTING ON SIDE OF BED - STEP 1: Does the patient complete the activity by him/herself with no assistance (physical, verbal/nonverbal cueing, setup/clean-up)? Yes. 1. [id number] ADMISSION PERFORMANCE: Independent CODE: 06 SIT TO STAND: SIT TO STAND - STEP 1: Does the patient complete the activity by him/herself with no assistance (physical, verbal/nonverbal cueing, setup/clean-up)? Yes. 1. [id number] ADMISSION PERFORMANCE: Independent CODE: 06 TRANSFERS: BED, CHAIR: CHAIR/[id number] TRANSFER - STEP 1: Does the patient complete the activity by him/herself with no assistance (physical, verbal/nonverbal cueing, setup/clean-up)? Yes. 1. [id number] ADMISSION PERFORMANCE: Independent CODE: 06 TRANSFER TOILET: TOILET TRANSFER - STEP 1: Does the patient complete the activity by him/herself with no assistance (physical, verbal/nonverbal cueing, setup/clean-up)? Yes. 1. [id number] ADMISSION PERFORMANCE: Independent CODE: 06 TRANSFERS: CAR: Not attempted due to environmental limitations (e.g., lack of equipment, weather constraints) CODE: 10 WALK 10 FEET: WALK 10 FEET - STEP 1: Does the patient complete the activity by him/herself with no assistance (physical, verbal/nonverbal cueing, setup/clean-up)? Yes. 1. [id number] ADMISSION PERFORMANCE: Independent CODE: 06 WALK 50 FEET: WALK 50 FEET - STEP 1: Does the patient complete the activity by him/herself with no assistance (physical, verbal/nonverbal cueing, setup/clean-up)? Yes. 1. [id number] ADMISSION PERFORMANCE: Independent CODE: 06 WALK 150 FEET: WALK 150 FEET - STEP 1: Does the patient complete the activity by him/herself with no assistance (physical, verbal/nonverbal cueing, setup/clean-up)? Yes. 1. [id number] ADMISSION PERFORMANCE: Independent CODE: 06 WALK 10 FEET UNEVEN: WALKING 10 FEET ON UNEVEN SURFACES - STEP 1: Does the patient complete the activity by him/herself with no assistance (physical, verbal/nonverbal cueing, setup/clean-up)? Yes. 1. [id number] ADMISSION PERFORMANCE: Independent CODE: 06 1 STEP (CURB): 1 STEP CURB - STEP 1: Does the patient complete the activity by him/herself with no assistance (physical, verbal/nonverbal cueing, setup/clean-up)? Yes. 1. [id number] ADMISSION PERFORMANCE: Independent CODE: 06 4 STEPS: 4 STEPS - STEP 1: Does the patient complete the activity by him/herself with no assistance (physical, verbal/nonverbal cueing, setup/clean-up)? Yes. 1. [id number] ADMISSION PERFORMANCE: Independent CODE: 06 12 STEPS: 12 STEPS - STEP 1: Does the patient complete the activity by him/herself with no assistance (physical, verbal/nonverbal cueing, setup/clean-up)? Yes. 1. [id number] ADMISSION PERFORMANCE: Independent CODE: 06 PICKING UP OBJECT: Not attempted due to medical condition or safety concerns CODE: 88 DOES THE PATIENT USE A WHEELCHAIR/SCOOTER? Q1. DOES THE PATIENT USE A WHEELCHAIR/SCOOTER?: Yes CODE: 1 WHEEL 50 FEET WITH TWO TURNS: WHEEL 50 FEET WITH TWO TURNS - STEP 1: Does the patient complete the activity by him/herself with no assistance (physical, verbal/nonverbal cueing, setup/clean-up)? Yes. 1. [id number] ADMISSION PERFORMANCE: Independent CODE: 06 INDICATE THE TYPE OF WHEELCHAIR/SCOOTER USED: RR1. INDICATE THE TYPE OF WHEELCHAIR/SCOOTER USED.: Manual CODE: 1 WHEEL 150 FEET: WHEEL 150 FEET - STEP 1: Does the patient complete the activity by him/herself with no assistance (physical, verbal/nonverbal cueing, setup/clean-up)? Yes. 1. [id number] ADMISSION PERFORMANCE: Independent CODE: 06 INDICATE THE TYPE OF WHEELCHAIR/SCOOTER USED: SS1. INDICATE THE TYPE OF WHEELCHAIR/SCOOTER USED.: Manual CODE: 1 BLADDER AND BOWEL: CODE: EXPR CODE: EXPR SIGNATURE PANEL: The following modified sections: 1. [id number] Admission Performance, 1. [id number] Admission Performance, 1. GA3000K Admission Performance, 1. [id number] Admission Performance, 1. [id number] Admission Performance, 1. PS9594B Admission Performance, 1. [id number] Admission Performance, 1. [id number] Admission Performance , 1. [id number] Admission Performance, 1. BF2535N Admission Performance, 1. FL7691H Admission Performanc e, 1. [id number] Admission Performance, 1. [id number] Admission Performance, Q1. Does the patient use a whe elchair/scooter?, 1. [id number] Admission Performance, RR1. Indicate the type of wheelchair/scooter used ., 1. [id number] Admission Performance, Code, SS1. Indicate the type of wheelchair/scooter used. were [e lectronically] signed by Jluis Barrera PTA on WedJun 09 2019 15:51:13 GMT-0600 (Central Standard Time)
[2019-06-09] MEDS: ATORVASTATIN 80 MG TAB PO SCH (20:32)
[2019-06-09] MEDS: MELATONIN 5 MG TABLET PO SCH (20:33)
[2019-06-09 23:30] VITALS: O2SAT 96
--- NOTE | 2019-06-10 02:30 | FAST ---
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 Juanjo Mccall M.D. ADMISSION DIAGNOSIS: - Stroke 01 - Right Body (Left Brain) (01.2) LEFT MCA INFARCT. EATING: Not assessed/no information CODE: - ORAL HYGIENE: Not assessed/no information CODE: - TOILETING HYGIENE: TOILETING HYGIENE - STEP 1: Does the patient complete the activity by him/herself with no assistance (physical, verbal/nonverbal cueing, setup/clean-up)? No. TOILETING HYGIENE - STEP 2: Does the patient need only setup/clean-up assistance from one helper? No. TOILETING HYGIENE - STEP 3: Does the patient need only verbal/nonverbal cueing or touching/steadying/contact guard assistance fro m one helper? Yes. 1. [id number] ADMISSION PERFORMANCE: Supervision or touching assistance CODE: 04 BATHING: Not assessed/no information CODE: - DRESSING - UPPER BODY: Not assessed/no information CODE: - DRESSING - LOWER BODY: Not assessed/no information CODE: - PUTTING ON/TAKING OFF FOOTWEAR: Not assessed/no information CODE: - ROLL LEFT AND RIGHT: ROLL LEFT AND RIGHT - STEP 1: Does the patient complete the activity by him/herself with no assistance (physical, verbal/nonverbal cueing, setup/clean-up)? No. ROLL LEFT AND RIGHT - STEP 2: Does the patient need only setup/clean-up assistance from one helper? No. ROLL LEFT AND RIGHT - STEP 3: Does the patient need only verbal/nonverbal cueing or touching/steadying/contact guard assistance fro m one helper? Yes. 1. [id number] ADMISSION PERFORMANCE: Supervision or touching assistance CODE: 04 SIT TO LYING: SIT TO LYING - STEP 1: Does the patient complete the activity by him/herself with no assistance (physical, verbal/nonverbal cueing, setup/clean-up)? No. SIT TO LYING - STEP 2: Does the patient need only setup/clean-up assistance from one helper? No. SIT TO LYING - STEP 3: Does the patient need only verbal/nonverbal cueing or touching/steadying/contact guard assistance fro m one helper? Yes. 1. [id number] ADMISSION PERFORMANCE: Supervision or touching assistance CODE: 04 LYING TO SITTING: LYING TO SITTING ON SIDE OF BED - STEP 1: Does the patient complete the activity by him/herself with no assistance (physical, verbal/nonverbal cueing, setup/clean-up)? No. LYING TO SITTING ON SIDE OF BED - STEP 2: Does the patient need only setup/clean-up assistance from one helper? No. LYING TO SITTING ON SIDE OF BED - STEP 3: Does the patient need only verbal/nonverbal cueing or touching/steadying/contact guard assistance fro m one helper? Yes. 1. [id number] ADMISSION PERFORMANCE: Supervision or touching assistance CODE: 04 SIT TO STAND: SIT TO STAND - STEP 1: Does the patient complete the activity by him/herself with no assistance (physical, verbal/nonverbal cueing, setup/clean-up)? No. SIT TO STAND - STEP 2: Does the patient need only setup/clean-up assistance from one helper? No. SIT TO STAND - STEP 3: Does the patient need only verbal/nonverbal cueing or touching/steadying/contact guard assistance fro m one helper? Yes. 1. [id number] ADMISSION PERFORMANCE: Supervision or touching assistance CODE: 04 TRANSFERS: BED, CHAIR: CHAIR/[id number] TRANSFER - STEP 1: Does the patient complete the activity by him/herself with no assistance (physical, verbal/nonverbal cueing, setup/clean-up)? No. CHAIR/[id number] TRANSFER - STEP 2: Does the patient need only setup/clean-up assistance from one helper? No. CHAIR/[id number] TRANSFER - STEP 3: Does the patient need only verbal/nonverbal cueing or touching/steadying/contact guard assistance fro m one helper? Yes. 1. [id number] ADMISSION PERFORMANCE: Supervision or touching assistance CODE: 04 TRANSFER TOILET: TOILET TRANSFER - STEP 1: Does the patient complete the activity by him/herself with no assistance (physical, verbal/nonverbal cueing, setup/clean-up)? No. TOILET TRANSFER - STEP 2: Does the patient need only setup/clean-up assistance from one helper? No. TOILET TRANSFER - STEP 3: Does the patient need only verbal/nonverbal cueing or touching/steadying/contact guard assistance fro m one helper? Yes. 1. [id number] ADMISSION PERFORMANCE: Supervision or touching assistance CODE: 04 TRANSFERS: CAR: Not assessed/no information CODE: - WALK 10 FEET: Not assessed/no information CODE: - 1 STEP (CURB): Not assessed/no information CODE: - PICKING UP OBJECT: Not assessed/no information CODE: - DOES THE PATIENT USE A WHEELCHAIR/SCOOTER? CODE: EXPR WHEEL 50 FEET WITH TWO TURNS: Not assessed/no information CODE: - INDICATE THE TYPE OF WHEELCHAIR/SCOOTER USED: CODE: EXPR WHEEL 150 FEET: Not assessed/no information CODE: - INDICATE THE TYPE OF WHEELCHAIR/SCOOTER USED: CODE: EXPR BLADDER AND BOWEL: H350. BLADDER CONTINENCE (3-DAY ASSESSMENT PERIOD): Always continent (no documented incontinence) CODE: 0 H400. BOWEL CONTINENCE (3-DAY ASSESSMENT PERIOD): Always continent CODE: 0
[2019-06-10 05:41] VITALS: BMI 28.3
[2019-06-10 06:28] LABS: Absolute Lymphocytes (CBC) 1.4 K/uL (0.7-4.9); Basophils % 0.4 % (0-1.3); Hematocrit 26.8 % (36.0-45.0); MPV 9.3 fL (7.6-11.3); RBC Red Blood Cell Count 2.88 M/uL (3.86-4.86)
[2019-06-10 06:29] LABS: Potassium 4.8 mmol/L (3.5-5.1)
[2019-06-10] MEDS: LEVOTHYROXINE SOD 0.05 MG TABLET PO SCH (06:29)
[2019-06-10 07:11] VITALS: TEMP 97.4
[2019-06-10] MEDS: INSULIN -REGULAR HUMAN 50 UNIT/0.5 ML ML SQ SCH ×2 (07:30→11:30)
[2019-06-10] MEDS: GLUCERNA SHAKE 237 ML CAN PO SCH (08:00)
[2019-06-10] MEDS: LIDOCAINE 4% PATCH TOP SCH (08:00)
[2019-06-10] MEDS: RANITIDINE 150 MG TABLET PO SCH (08:15)
[2019-06-10] MEDS: CIPROFLOXACIN HCL 250 MG TAB PO SCH (08:15)
[2019-06-10] MEDS: cloNIDine HCL 0.1 MG TAB PO SCH (08:15)
[2019-06-10] MEDS: GUAIFENESIN 600 MG SA TAB PO SCH (08:15)
[2019-06-10] MEDS: allopurinoL 100 MG TAB PO SCH (08:16)
[2019-06-10] MEDS: GABAPENTIN 300 MG CAP PO SCH ×2 (08:16→13:03)
[2019-06-10] MEDS: ACETAMINOPHEN 500 MG TAB PO PRN (08:16)
[2019-06-10] MEDS: METFORMIN HCL 500 MG TAB PO SCH (08:16)
[2019-06-10] MEDS: TICAGRELOR 90 MG TABLET PO SCH (08:17)
[2019-06-10] MEDS: NEBIVOLOL HCL 5 MG TAB PO SCH (08:17)
[2019-06-10] MEDS: HYDRALAZINE HCL 25 MG TABLET PO SCH (09:33)
[2019-06-10 09:35] VITALS: BP 153/63
[2019-06-10] MEDS: FE SULF/FA/VIT B COMP & C TAB PO SCH (12:08)
--- NOTE | 2019-06-10 15:45 | PN ---
Subjective: Ms. Lancaster has improved significantly with her left-sided hemiparesis. She had power is about 4/5 on left side. She walks with a walker without any assistance now and is very eager to go h ome today. Physical Examination: Vital Signs: Blood pressure 153/63, pulse is 65, temperature 97.4. HEENT: No JVD. No carotid bruits. Chest: Clear. Heart: Regular. Abdomen: No guarding, no rebound. No rigidity. Laboratory Data: White count of 9100, hemoglobin 8.6, hematocrit 26, BUN 27, creatinine 1.54. Assessment And Plan: 1.Cerebrovascular accident with left hemiparesis, improved significantly. Continue medications. 2.Carotid stenosis. She had a stent placement by Dr. Oconnor. 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 Follow up with Dr. Oconnor when she is clinically able to do the procedure. 4.Hypertension, very difficult to control high blood pressure, which is currently controlled reasona nati well with hydralazine, Edarbi, clonidine. I have stopped the diuretics because of kidney issues. The creatinine baseline about 1.5 to 1.57. 5.Chronic kidney disease 3. Because of diabetes mellitus, she will probably stay about 1.5 on creat inine. After stopping Edarbi or losartan, the creatinine did not improve any, so I would resume it ba ck now. We can have some protective effect of this medications for diabetics. 6.Diabetes mellitus. She is on metformin and tolerating it very well. Her A1c is checked in the [facility] on a routine basis about every 3 to 6 months and save for urine microalbumin. 7.Urinary tract infection. She had a mild urinary tract infection in the hospital. She grew E coli for which Cipro 250 b.i.d. was given, which took care of her white count elevation and fever. Medications: List of medication for discharge. At discharge; she is on Lipitor 80 mg once a day, Ci pro 250 b.i.d., clonidine 0.3 mg p.o. b.i.d., colchicine 0.6 mg p.o. b.i.d. for gout and gabapentin 3 00 mg p.o. t.i.d. for neuropathy in the feet, hydralazine currently 50 mg p.o. b.i.d. She has been a s high as 100 mg p.o. b.i.d. in past, levothyroxine 0.05 mg once a day for hypothyroidism, metformin 500 mg p.o. b.i.d., Bystolic 10 mg p.o. b.i.d., Brilinta 90 mg p.o. b.i.d. for carotid stenosis, sten t placement, Edarbi 80 mg once a day. On Xarelto, she will be back on Xarelto 20 mg once a day in co uple of days. Torsemide is on hold currently if she needs to go back on it, we will see how the clini jayce symptoms go and replace her back on torsemide. SAURABH/MODL Voice ID: [id number] Report ID: [id number]
== END 2019-06-10 13:15 | disposition home health service (06) | DRG 57 ==
LOC: 5TH 19:32
PROVIDERS: ADMIT Psychiatry & Neurology Neurology with Special Qualifications in Child Neurology; ATTEND Psychiatry & Neurology Neurology with Special Qualifications in Child Neurology
DX: I69.351 Hemiplegia and hemiparesis following cerebral infarction affecting right dominant side (principal); N18.4 Chronic kidney disease, stage 4 (severe); I48.20 Chronic atrial fibrillation, unspecified; N39.0 Urinary tract infection, site not specified; I12.9 Hypertensive chronic kidney disease with stage 1 through stage 4 chronic kidney disease, or unspecified chronic kidney disease; E11.22 Type 2 diabetes mellitus with diabetic chronic kidney disease; E11.59 Type 2 diabetes mellitus with other circulatory complications; J44.9 Chronic obstructive pulmonary disease, unspecified; K21.9 Gastro-esophageal reflux disease without esophagitis; M10.9 Gout, unspecified; E78.5 Hyperlipidemia, unspecified; E03.9 Hypothyroidism, unspecified; E86.0 Dehydration; B96.20 Unspecified Escherichia coli [E. coli] as the cause of diseases classified elsewhere; M54.12 Radiculopathy, cervical region; J04.0 Acute laryngitis; R19.7 Diarrhea, unspecified
CPT/HCPCS: 36415; 70450; 71045; 74230; 80048; 81001; 82040; 82274; 82805; 82947; 83605; 83735; 84134; 84145; 85025; 87077; 87086; 87088; 87186; 87324; 87449; 92523; 92611; 93005; 94640; 97110; 97112; 97116; 97127; 97161; 97530; J7512

== ENCOUNTER 2019-09-06 22:05 | Inpatient (IN) | payer OTHER ==
--- OUTSIDE RECORDS SUMMARY | 2019-09-06 22:10 | XMS REPORT | Clinical Summary ---
:1940 Author Organization [facility] Address [address] [place] [address] Care Team Providers Name Role Phone Aaron Morton Primary Care Provider Allergies Active Allergy Reactions Severity Noted Date Comments Amlodipine 03/30/2019 Baclofen Other (See Comments) High 04/05/2017 Codeine Nausea And Vomiting, Medium 03/31/2016 Palpitations, Hives Cyclobenzaprine Nausea And Vomiting 04/01/2016 tremo rs Meperidine Nausea And Vomiting 05/17/2019 Per daug hter Hydrocodone-Acetaminophen 03/30/2019 Morphine 03/30/2019 Propoxyphene Napsylate Nausea And Vomiting 04/05/2017 Medications Medication Sig Dispensed Refills Start Date End Date Status allopurinol Take 100 mg by 0 Act sushil (ZYLOPRIM) 100 MG mouth daily. tablet colchicine Take 0.6 mg by 0 Acti ve (COLCRYS) 0.6 mg mouth as needed. tablet gabapentin Take 300 mg by 0 Acti ve (NEURONTIN) 300 MG mouth 3 (three) capsule times daily. metFORMIN Take 500 mg by 0 Activ e (GLUCOPHAGE) 500 mouth daily with MG tablet dinner . nebivolol Take 20 mg by 0 Active (BYSTOLIC) 10 MG mouth 2 (two) tablet times daily . azilsartan Take 80 mg by 0 Activ e medoxomil (EDARBI) mouth daily . 80 mg Tab albuterol HFA Inhale 2 puffs by 0 Active (VENTOLIN HFA) 90 mouth via inhaler mcg/actuation every 6 (six) inhaler hours as needed for Wheezing. ranitidine Take 150 mg by 0 Acti ve (ZANTAC) 150 MG mouth every capsule evening . levothyroxine Take 50 mcg by 0 A ctive (SYNTHROID, mouth Every LEVOTHROID) 50 MCG morning on an tablet empty stomach. cloNIDine HCl Take 1 tablet 0 05/29/2019 05/28/19 A ctive (CATAPRES) 0.2 MG (0.2 mg total) by 21 tablet mouth nightly. hydrALAZINE Take 1 tablet 0 05/29/2019 Act sushil (APRESOLINE) 100 (100 mg total) by MG tablet mouth 3 (three) times daily. atorvastatin Take 1 tablet (80 0 05/29/2019 05/28/19 Active (LIPITOR) 80 MG mg total) by 21 tablet mouth nightly. melatonin 10 mg Take 10 mg by 0 05/29/2019 Active Tab mouth nightly. pantoprazole Take 1 tablet (40 30 tablet 0 05/29/2019 Active (PROTONIX) 40 MG mg total) by tablet mouth daily. tamsulosin Take 1 capsule 0 05/30/2019 Act sushil (FLOMAX) 0.4 mg (0.4 mg total) by Cap 24 hr capsule mouth daily. aspirin 325 MG Take 325 mg by 0 Active tablet mouth daily. ticagrelor Take 90 mg by 0 Activ e (BRILINTA) 90 mg mouth 2 (two) Tab tablet times daily. torsemide Take 20 mg by 0 Active (DEMADEX) 20 MG mouth daily. tablet amLODIPine Take 5 mg by 0 05/15/19 Discon tinued (NORVASC) 2.5 MG mouth daily . 20 tablet azilsartan Take by mouth. 0 03/31/20 Disc ontinued medoxomil 80 mg 19 Tab cloNIDine HCl Take 0.2 mg by 0 05/29/19 D iscontinued (CATAPRES) 0.2 MG mouth 3 (three) 20 tablet times daily. hydrALAZINE Take 100 mg by 0 05/29/19 Dis continued (APRESOLINE) 100 mouth 2 (two) 20 MG tablet times daily. rivaroxaban Take by mouth 0 05/29/19 Disc ontinued (XARELTO) 20 mg daily with 20 Tab tablet dinner. torsemide Take 20 mg by 0 08/30/19 Discon tinued (DEMADEX) 10 MG mouth daily . 20 tablet doxepin (SINEQUAN) Take 25 mg by 0 0 Discontinued 25 MG capsule mouth nightly. 20 amLODIPine Take 5 mg by 0 02/21/2019 05/17/19 Disco ntinued (NORVASC) 5 MG mouth daily. 20 tablet ipratropium-albute Take 3 mLs by 0 05/29/2019 Discontinued rol (DUO-NEB) 0.5 nebulization 20 mg-3 mg(2.5 mg every 4 (four) base)/3 mL hours as needed nebulizer solution for Wheezing for up to 360 days. cloNIDine HCl Take 1 tablet 0 05/30/2019 08/30/19 D iscontinued (CATAPRES) 0.3 MG (0.3 mg total) by 20 tablet mouth 2 (two) times daily before meals. rivaroxaban Take 1 tablet (20 0 06/15/2019 08/30/19 Discontinued (XARELTO) 20 mg mg total) by 20 Tab tablet mouth daily with dinner. aspirin 81 MG Take 1 tablet (81 360 tablet 0 05/30/2019 Discontinued chewable tablet mg total) by 20 mouth daily. benzonatate Take 1 capsule 20 capsule 0 05/29/2019 06/05/19 E xpired (TESSALON) 100 MG (100 mg total) by 20 capsule mouth 3 (three) times daily as needed for Cough for up to 7 days. ferrous sulfate Take 1 tablet 0 05/29/2019 08/30/19 Discontinued 325 (65 FE) MG (325 mg total) by 20 tablet mouth 2 (two) times daily with breakfast and dinner. guaiFENesin Take 1 tablet 0 05/29/2019 06/08/19 Exp ired (MUCINEX) 600 mg (600 mg total) by 20 12 hr tablet mouth 2 (two) times daily for 10 days. senna (SENOKOT) Take 1 tablet 0 05/29/2019 08/30/19 Discontinued 8.6 mg tablet (8.6 mg total) by 20 mouth nightly. ticagrelor Take 1 tablet (90 0 05/29/2019 06/14/19 (BRILINTA) 90 mg mg total) by 20 Tab tablet mouth 2 (two) times daily for 16 days. predniSONE Take 4 tablets 0 05/29/2019 06/03/19 Exp ired (DELTASONE) 10 MG (40 mg total) by 20 tablet mouth daily for 5 days. 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 Cerebral hypoperfusion 05/17/2019 Hypertensive crisis 05/17/2019 Atrial fibrillation 05/16/2019 Hypertension 05/16/2019 Carotid stenosis, left 05/16/2019 Acute ischemic stroke 05/15/2019 RUE weakness 05/14/2019 Encounters Date Type Specialty Care Team Description 09/06/2019 Hospital Cardiology Khai Carrasco Arrived Encounter MD Jarocho 09/06/2019 Hospital Pre-Admission Testing Khai Carrasco Acut e blood loss Encounter MD Jarocho anemia 09/05/2019 Anesthesia Event Ramon Aldana MD 08/30/2019 Hospital Pre-Admission Testing Encounter 08/30/2019 Travel 08/30/2019 Outside Orders Radiology Khai Carrasco Unruptured cerebral MD Jarocho aneurysm (Prima 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) 08/28/2019 Orders Only Family Medicine Livia Mora Cerebral ane urysm Claudia (Primary Dx) 06/17/2019 Outside Orders Central Scheduling Khai Carrasco Basil ar artery MD Jarocho aneurysm (HCC) (Primary Dx) 05/20/2019 Anesthesia Event Gastroenterology José Antonio Daniels MD 05/20/2019 Surgery Gastroenterology Gonzalo, UPPER ENDOS COPY MD Estiven 05/17/2019 Anesthesia Event Ankur Hightower MD 05/17/2019 Surgery Virtual, PROCEDURE DONE Surgeon OUTSIDE OR 05/16/2019 Anesthesia Event Helen Mackenzie MD 05/16/2019 Surgery Virtual, PROCEDURE DONE Surgeon OUTSIDE OR 05/15/2019 Travel 05/14/2019 [facility] General Internal ALMA ROSA Campbell (Primary Dx); - Encounter Medicine Karely 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); 05/29/2019 MD Sarahy Acute ischemic stroke ([facility]); Nikki Zuniga, Stenosis of left carotid artery; Paroxysmal atrial fibrillation (HCC); Venkatasubba Aneurysm (HCC); Sharpe, Chethan Basilar artery aneurysm (HCC); Padmerlynselina, Carotid steno sis, left; Cerebral hypoperfusion; Mina Flower Essential hype rtension; MD Sami Hypertensive crisis; Karol Barahona; MD Vilma Acute blood loss anemia; Kevin Antonio Symptomatic bradycardia MD Yvan 05/12/2019 Outside Orders Central Scheduling Khai Carrasco Cereb ral Jarocho fitzgerald MD nonruptured (Pr imary Dx) 03/31/2019 Anesthesia Event Davin Moraeve ShearerClaudia 03/31/2019 Surgery Virtual, PROCEDURE DONE Surgeon OUTSIDE OR 03/31/2019 Hospital Khai Carrasco Encounter MD Jarocho 03/31/2019 Orders Only FanSravan S Cerebral aneury sm, nonruptured 03/29/2019 Outside Orders Central Scheduling Khai Carrasco Cereb ral aneurysm, MD Jarocho 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 09/05/2018 Social History Tobacco Use Types Packs/Day Years Used Date Former Smoker 1 Quit: 2016 Smokeless Tobacco: Never Used Alcohol Use Drinks/Week oz/Week Comments No Alcohol Habits Answer Date Recorded How often do you have a drink containing alcohol? Never 03/31/2019 How many drinks containing alcohol do you have on a typical Not asked day when you are drinking? How often do you have six or more drinks on one occasion? No t asked Sex Assigned at Date Recorded Not on file Job Start Date Occupation Industry Not on file Not on file Not on file Travel History Travel Start Travel End No recent travel history available. Last Filed Vital Signs Vital Sign Reading Time Taken Blood Pressure 110/65 09/06/2019 11:36 AM CDT Pulse 62 09/06/2019 11:36 AM CDT Temperature 35.8 C (96.4 F) 09/06/2019 11:36 AM CDT Respiratory Rate 20 09/06/2019 11:36 AM CDT Oxygen Saturation 96% 09/06/2019 11:36 AM CDT Inhaled Oxygen Concentration 21% 05/28/2019 9:19 PM SKOOG OPERATOR Weight 90.7 kg (200 lb) 08/30/2019 9:30 AM CDT Height 167.6 cm (5' 6") 08/30/2019 9:30 AM CDT Body Mass Index 32.28 08/30/2019 9:30 AM CDT Plan of Treatment Date Type Specialty Care Team Description 09/07/2019 Hospital Encounter Elvin, Khai Forman MD Canceled (Provider) [address] [place], [place] [address] [phone] Procedures Procedure Name Priority Date/Time Associated Diagnosis Comme nts ECG 12-LEAD Routine 09/06/2019 9:35 AM CDT Procedure Note - Interface, External Ris In - 09/06/2019 4:10 PM CDT Ventricular Rate 89 BPM Atrial Rate 89 BPM P-R Interval 126 ms QRS Duration 136 ms Q-T Interval 424 ms QTC Calculation(Bazett) 515 ms P [place] 85 degrees R [place] -40 degrees T [place] 64 degrees Normal sinus rhythm Left axis deviation Left ventricular hypertrophy with QRS widening Abnormal ECG When compared with ECG of 13:49, Right bundle branch block is no longer Present BASIC METABOLIC Routine 09/06/2019 9:34 Results for this PANEL (7) AM CDT procedure are i n the results section. POCT-ASPIRIN Routine 09/06/2019 9:34 Results for this PLATELET AGGREGATION AM CDT procedu re are in the results section. POCT-P2Y12 PLATELET Routine 09/06/2019 9:34 Resu lts for this AGGREGATION AM CDT procedure are i n the results section. CBC W/PLT COUNT & Routine 09/06/2019 9:33 Result s for this AUTO DIFFERENTIAL AM CDT procedure are in the results section. TYPE AND SCREEN, Routine 09/06/2019 9:33 Results for this AUTOMATED AM CDT procedure are i n the results section. CBC W/PLT COUNT & Routine 09/06/2019 9:33 Result s for this AUTO DIFFERENTIAL AM CDT procedure are in the results section. PT/APTT Routine 09/06/2019 9:33 Results for this AM CDT procedure are i n the results section. RHYTHM STRIP - SCAN 05/31/2019 11:43 AM SKOOG OPERATOR POCT-GLUCOSE METER Routine 05/29/2019 12:35 Resul ts for this PM SKOOG OPERATOR procedure are i n the results section. POCT-GLUCOSE METER Routine 05/29/2019 7:40 Resul ts for this AM SKOOG OPERATOR procedure are i n the results section. POCT-GLUCOSE METER Routine 05/28/2019 8:54 Resul ts for this PM SKOOG OPERATOR procedure are i n the results section. POCT-GLUCOSE METER Routine 05/28/2019 5:20 Resul ts for this PM SKOOG OPERATOR procedure are i n the results section. POCT-GLUCOSE METER Routine 05/28/2019 11:38 Resul ts for this AM SKOOG OPERATOR procedure are i n the results section. POCT-GLUCOSE METER Routine 05/28/2019 7:25 Resul ts for this AM SKOOG OPERATOR procedure are i n the results section. POCT-GLUCOSE METER Routine 05/27/2019 10:17 Resul ts for this PM SKOOG OPERATOR procedure are i n the results section. HEMOGLOBIN AND Routine 05/27/2019 10:27 Results f or this HEMATOCRIT AM SKOOG OPERATOR procedure are i n the results section. POCT-GLUCOSE METER Routine 05/26/2019 11:30 Resul ts for this PM SKOOG OPERATOR procedure are i n the results section. POCT-GLUCOSE METER Routine 05/26/2019 11:54 Resul ts for this AM SKOOG OPERATOR procedure are i n the results section. MAGNESIUM Routine 05/26/2019 5:18 Results for this AM SKOOG OPERATOR procedure are i n the results section. BASIC METABOLIC Routine 05/26/2019 5:18 Results for this PANEL (7) AM SKOOG OPERATOR procedure are i n the results section. HEMOGLOBIN AND Routine 05/26/2019 5:18 Results f or this HEMATOCRIT AM SKOOG OPERATOR procedure are i n the results section. POCT-GLUCOSE METER Routine 05/25/2019 10:12 Resul ts for this PM SKOOG OPERATOR procedure are i n the results section. XR CHEST 1 VIEW Routine 05/25/2019 7:24 Results for this PORTABLE/BEDSIDE PM SKOOG OPERATOR procedure a re in the results section. POCT-GLUCOSE METER Routine 05/25/2019 4:25 Resul ts for this PM SKOOG OPERATOR procedure are i n the results section. POCT-GLUCOSE METER Routine 05/25/2019 12:53 Resul ts for this PM SKOOG OPERATOR procedure are i n the results section. POCT-GLUCOSE METER Routine 05/25/2019 7:55 Resul ts for this AM SKOOG OPERATOR procedure are i n the results section. HEMOGLOBIN AND Routine 05/25/2019 4:53 Results f or this HEMATOCRIT AM SKOOG OPERATOR procedure are i n the results section. POCT-GLUCOSE METER Routine 05/24/2019 9:56 Resul ts for this PM SKOOG OPERATOR procedure are i n the results section. TRANSFUSION SERVICE 05/24/2019 5:52 REPORT - SCAN PM SKOOG OPERATOR POCT-GLUCOSE METER Routine 05/24/2019 12:28 Resul ts for this PM SKOOG OPERATOR procedure are i n the results section. POCT-GLUCOSE METER Routine 05/24/2019 8:19 Resul ts for this AM SKOOG OPERATOR procedure are i n the results section. CBC (HEMOGRAM ONLY) Routine 05/24/2019 4:59 Resu lts for this AM SKOOG OPERATOR procedure are i n the results section. BASIC METABOLIC Routine 05/24/2019 4:59 Results for this PANEL (7) AM SKOOG OPERATOR procedure are i n the results section. PREPARE Routine 05/23/2019 11:54 Results for this LEUKO-REDUCED RBC PM SKOOG OPERATOR procedure are in the results section. POCT-GLUCOSE METER Routine 05/23/2019 6:26 Resul ts for this PM SKOOG OPERATOR procedure are i n the results section. TRANSFUSION SERVICE 05/23/2019 5:54 REPORT - SCAN PM SKOOG OPERATOR BASIC METABOLIC Routine 05/23/2019 5:30 Results for this PANEL (7) AM SKOOG OPERATOR procedure are i n the results section. CBC (HEMOGRAM ONLY) Routine 05/23/2019 5:30 Resu lts for this AM SKOOG OPERATOR procedure are i n the results section. POCT-GLUCOSE METER Routine 05/23/2019 12:16 Resul ts for this AM SKOOG OPERATOR procedure are i n the results section. TRANSFUSE Routine 05/22/2019 4:22 LEUKO-REDUCED RED PM SKOOG OPERATOR BLOOD CELLS POCT-GLUCOSE METER Routine 05/22/2019 5:59 Resul ts for this AM SKOOG OPERATOR procedure are i n the results section. CBC W/PLT COUNT & Routine 05/22/2019 5:38 Result s for this AUTO DIFFERENTIAL AM SKOOG OPERATOR procedure are in the results section. CBC W/PLT COUNT & Routine 05/22/2019 5:38 Result s for this AUTO DIFFERENTIAL AM SKOOG OPERATOR procedure are in the results section. PERIPHERAL VASCULAR 05/21/2019 9:10 REPORT - SCAN PM SKOOG OPERATOR POCT-GLUCOSE METER Routine 05/21/2019 6:43 Resul ts for this PM SKOOG OPERATOR procedure are i n the results section. TRANSFUSION SERVICE 05/21/2019 5:51 REPORT - SCAN PM SKOOG OPERATOR POTASSIUM Routine 05/21/2019 1:28 Results for this PM SKOOG OPERATOR procedure are i n the results section. MAGNESIUM Routine 05/21/2019 1:28 Results for this PM SKOOG OPERATOR procedure are i n the results section. CBC (HEMOGRAM ONLY) Routine 05/21/2019 1:28 Resu lts for this PM SKOOG OPERATOR procedure are i n the results section. POCT-GLUCOSE METER Routine 05/21/2019 12:58 Resul ts for this PM SKOOG OPERATOR procedure are i n the results section. POCT-GLUCOSE METER Routine 05/21/2019 6:25 Resul ts for this AM SKOOG OPERATOR procedure are i n the results section. URIC ACID Add-On 05/21/2019 5:59 Results for this AM SKOOG OPERATOR procedure are i n the results section. BASIC METABOLIC Routine 05/21/2019 5:59 Results for this PANEL (7) AM SKOOG OPERATOR procedure are i n the results section. CBC (HEMOGRAM ONLY) Routine 05/21/2019 5:59 Resu lts for this AM SKOOG OPERATOR procedure are i n the results section. CBC (HEMOGRAM ONLY) Routine 05/21/2019 12:39 Resu lts for this AM SKOOG OPERATOR procedure are i n the results section. POCT-GLUCOSE METER Routine 05/21/2019 12:30 Resul ts for this AM SKOOG OPERATOR procedure are i n the results section. PREPARE STAT 05/20/2019 11:54 Results for this LEUKO-REDUCED RBC PM SKOOG OPERATOR procedure are in the results section. VENOUS DOPPLER LEGS Routine 05/20/2019 7:30 Resu lts for this BILATERAL PM SKOOG OPERATOR procedure are i n the results section. TRANSFUSION SERVICE 05/20/2019 5:53 REPORT - SCAN PM SKOOG OPERATOR IRON, TIBC, % SAT. Routine 05/20/2019 5:50 Resul ts for this (WITHOUT FERRITIN) PM SKOOG OPERATOR procedure are in the results section. TRANSFERRIN Routine 05/20/2019 5:50 Results for this PM SKOOG OPERATOR procedure are i n the results section. FERRITIN Routine 05/20/2019 5:50 Results for this PM SKOOG OPERATOR procedure are i n the results section. CBC (HEMOGRAM ONLY) Routine 05/20/2019 5:49 Resu lts for this PM SKOOG OPERATOR procedure are i n the results section. XR ANKLE 1 VIEW LEFT MANPREET 05/20/2019 10:10 Res ults for this AM SKOOG OPERATOR procedure are i n the results section. REPORT OF PROCEDURE 05/20/2019 8:39 - ENDOSCOPY URL AM SKOOG OPERATOR UPPER ENDOSCOPY 05/20/2019 7:56 Gastrointestinal AM SKOOG OPERATOR hemorrhage, unspecified gastrointestinal hemorrhage type CBC (HEMOGRAM ONLY) Routine 05/20/2019 4:06 Resu lts for this AM SKOOG OPERATOR procedure are i n the results section. PHOSPHORUS Routine 05/20/2019 4:06 Results for this AM SKOOG OPERATOR procedure are i n the results section. MAGNESIUM Routine 05/20/2019 4:06 Results for this AM SKOOG OPERATOR procedure are i n the results section. BASIC METABOLIC Routine 05/20/2019 4:06 Results for this PANEL (7) AM SKOOG OPERATOR procedure are i n the results section. CBC (HEMOGRAM ONLY) Routine 05/20/2019 12:07 Resu lts for this AM SKOOG OPERATOR procedure are i n the results section. POCT-GLUCOSE METER Routine 05/19/2019 6:25 Resul ts for this PM SKOOG OPERATOR procedure are i n the results section. CBC (HEMOGRAM ONLY) Routine 05/19/2019 6:21 Resu lts for this PM SKOOG OPERATOR procedure are i n the results section. TRANSFUSE STAT 05/19/2019 4:35 LEUKO-REDUCED RED PM SKOOG OPERATOR BLOOD CELLS TYPE AND SCREEN, STAT 05/19/2019 1:24 Results for this AUTOMATED PM SKOOG OPERATOR procedure are i n the results section. POCT-GLUCOSE METER Routine 05/19/2019 12:18 Resul ts for this PM SKOOG OPERATOR procedure are i n the results section. CBC (HEMOGRAM ONLY) Routine 05/19/2019 12:14 Resu lts for this PM SKOOG OPERATOR procedure are i n the results section. FIBRINOGEN Routine 05/19/2019 7:25 Results for this AM SKOOG OPERATOR procedure are i n the results section. PT/APTT Routine 05/19/2019 7:25 Results for this AM SKOOG OPERATOR procedure are i n the results section. PHOSPHORUS Routine 05/19/2019 6:52 Results for this AM SKOOG OPERATOR procedure are i n the results section. MAGNESIUM Routine 05/19/2019 6:52 Results for this AM SKOOG OPERATOR procedure are i n the results section. BASIC METABOLIC Routine 05/19/2019 6:52 Results for this PANEL (7) AM SKOOG OPERATOR procedure are i n the results section. CBC (HEMOGRAM ONLY) Routine 05/19/2019 5:54 Resu lts for this AM SKOOG OPERATOR procedure are i n the results section. POCT-GLUCOSE METER Routine 05/19/2019 12:09 Resul ts for this AM SKOOG OPERATOR procedure are i n the results section. POCT-GLUCOSE METER Routine 05/18/2019 6:09 Resul ts for this PM SKOOG OPERATOR procedure are i n the results section. POCT-GLUCOSE METER Routine 05/18/2019 12:11 Resul ts for this PM SKOOG OPERATOR procedure are i n the results section. CBC (HEMOGRAM ONLY) Routine 05/18/2019 3:43 Resu lts for this AM SKOOG OPERATOR procedure are i n the results section. PHOSPHORUS Routine 05/18/2019 3:42 Results for this AM SKOOG OPERATOR procedure are i n the results section. MAGNESIUM Routine 05/18/2019 3:42 Results for this AM SKOOG OPERATOR procedure are i n the results section. BASIC METABOLIC Routine 05/18/2019 3:42 Results for this PANEL (7) AM SKOOG OPERATOR procedure are i n the results section. POCT-GLUCOSE METER Routine 05/17/2019 6:32 Resul ts for this PM SKOOG OPERATOR procedure are i n the results section. NV CAROTID ARTERY Routine 05/17/2019 3:25 Result s for this STENT PLACEMENT W PM SKOOG OPERATOR procedure are in PROTECTION the results section. PROCEDURE DONE 05/17/2019 1:00 Left carotid stenosis OUTSIDE OR PM SKOOG OPERATOR Special Needs REQ:1300 POCT-GLUCOSE METER Routine 05/17/2019 12:28 PM Re sults for this SKOOG OPERATOR procedure are i n the results section. PROTHROMBIN TIME/INR Add-On 05/17/2019 8:55 AM Results for this SKOOG OPERATOR procedure are i n the results section. APTT Routine 05/17/2019 8:55 AM Results for this SKOOG OPERATOR procedure are i n the results section. POCT-GLUCOSE METER Routine 05/17/2019 6:37 AM Re sults for this SKOOG OPERATOR procedure are i n the results section. CBC (HEMOGRAM ONLY) Routine 05/17/2019 4:12 AM R esults for this SKOOG OPERATOR procedure are i n the results section. APTT Routine 05/17/2019 4:12 AM Results for this SKOOG OPERATOR procedure are i n the results section. POCT-ASPIRIN PLATELET Routine 05/17/2019 4:12 AM Results for this AGGREGATION SKOOG OPERATOR procedure are i n the results section. POCT-P2Y12 PLATELET Routine 05/17/2019 4:12 AM R esults for this AGGREGATION SKOOG OPERATOR procedure are i n the results section. BASIC METABOLIC PANEL Routine 05/17/2019 4:12 AM Results for this (7) SKOOG OPERATOR procedure are i n the results section. APTT Routine 05/17/2019 4:12 AM Results for this SKOOG OPERATOR procedure are i n the results section. APTT Routine 05/17/2019 1:19 AM Results for this SKOOG OPERATOR procedure are i n the results section. POCT-GLUCOSE METER Routine 05/16/2019 11:49 PM Re sults for this SKOOG OPERATOR procedure are i n the results section. POCT-GLUCOSE METER Routine 05/16/2019 6:36 PM Re sults for this SKOOG OPERATOR procedure are i n the results section. TRANSFUSION SERVICE 05/16/2019 6:22 PM REPORT - SCAN SKOOG OPERATOR NV CEREBRAL 4 VESSEL Routine 05/16/2019 4:14 PM Results for this ANGIOGRAM SKOOG OPERATOR procedure are i n the results section. POCT-GLUCOSE METER Routine 05/16/2019 1:29 PM Re sults for this SKOOG OPERATOR procedure are i n the results section. PROCEDURE DONE OUTSIDE 05/16/2019 12:00 PM Aneurysm of OR SKOOG OPERATOR basilar artery (HCC) Special Needs REQ AFTERNOON CAROTID DOPPLER BILATERAL Routine 05/16/2019 12:00 PM SKOOG OPERATOR Results for this procedure are i n the results section . APTT Routine 05/16/2019 9:03 AM SKOOG OPERATOR Resu lts for this procedure are i n the results section . CBC (HEMOGRAM ONLY) Routine 05/16/2019 9:03 AM SKOOG OPERATOR Results for this procedure are i n the results section . APTT Routine 05/16/2019 2:36 AM SKOOG OPERATOR Resu lts for this procedure are i n the results section . PLATELET COUNT Routine 05/16/2019 2:36 AM SKOOG OPERATOR Re sults for this procedure are i n the results section . PT/APTT Routine 05/16/2019 2:36 AM SKOOG OPERATOR Resu lts for this procedure are i n the results section . BASIC METABOLIC PANEL (7) Routine 05/16/2019 2:36 AM SKOOG OPERATOR Results for this procedure are i n the results section . CT CEREBRAL PERFUSION STAT 05/15/2019 11:45 PM SKOOG OPERATOR Results for this ANALYSIS procedure are i n the results section . CT/CTA CAROTID STAT 05/15/2019 11:45 PM SKOOG OPERATOR Re sults for this procedure are i n the results section . CTA BRAIN STAT 05/15/2019 11:45 PM SKOOG OPERATOR Resu lts for this procedure are i n the results section . CT BRAIN/STROKE TEST DESIGN STAT 05/15/2019 11:21 PM SKOOG OPERATOR Results for this procedure are i n the results section . POCT-GLUCOSE METER Routine 05/15/2019 8:45 PM SKOOG OPERATOR Results for this procedure are i n the results section . PROTHROMBIN TIME/INR STAT 05/15/2019 6:48 PM SKOOG OPERATOR Results for this procedure are i n the results section . TYPE AND SCREEN, AUTOMATED STAT 05/15/2019 6:47 PM SKOOG OPERATOR Results for this procedure are i n the results section . POCT-GLUCOSE METER Routine 05/15/2019 5:39 PM SKOOG OPERATOR Results for this procedure are i n the results section . POCT-GLUCOSE METER Routine 05/15/2019 11:43 AM SKOOG OPERATOR Results for this procedure are i n the results section . POCT-GLUCOSE METER Routine 05/15/2019 8:38 AM SKOOG OPERATOR Results for this procedure are i n the results section . POCT-GLUCOSE METER Routine 05/15/2019 6:46 AM SKOOG OPERATOR Results for this procedure are i n the results section . VITAMIN B12 AND FOLATE Routine 05/15/2019 6:09 AM SKOOG OPERATOR Results for this procedure are i n the results section . LIPID PANEL Routine 05/15/2019 6:09 AM SKOOG OPERATOR Resu lts for this procedure are i n the results section . BASIC METABOLIC PANEL (7) Routine 05/15/2019 6:09 AM SKOOG OPERATOR Results for this procedure are i n the results section . HEMOGLOBIN A1C Routine 05/15/2019 6:08 AM SKOOG OPERATOR Re sults for this procedure are i n the results section . CBC (HEMOGRAM ONLY) Routine 05/15/2019 6:08 AM SKOOG OPERATOR Results for this procedure are i n the results section . MR BRAIN WITHOUT IV Routine 05/15/2019 2:26 AM SKOOG OPERATOR Results for this CONTRAST procedure are i n the results section . POCT-GLUCOSE METER Routine 05/14/2019 9:07 PM SKOOG OPERATOR Results for this procedure are i n the results section . BASIC METABOLIC PANEL (7) STAT 03/31/2019 2:07 PM SKOOG OPERATOR Results for this procedure are i n the results section . ECG 12-LEAD Routine 03/31/2019 1:49 PM SKOOG OPERATOR Procedure Note - Interface, External Ris In - 03/31/2019 12:56 PM SKOOG OPERATOR Ventricular Rate 65 BPM Atrial Rate 65 BPM P-R Interval 138 ms QRS Duration 148 ms Q-T Interval 486 ms QTC Calculation(Bazett) 505 ms P [place] 81 degrees R [place] -41 degrees T [place] 36 degrees Normal sinus rhythm with sin us arrhythmia Left axis deviation Right bundle branch block Voltage criteria for left ve ntricular hypertrophy Abnormal ECG No previous ECGs available ECG 12-LEAD Routine 03/31/2019 1:49 PM SKOOG OPERATOR Resu lts for this procedure are i n the results section . CBC W/PLT COUNT & AUTO Routine 03/31/2019 12:28 PM SKOOG OPERATOR Results for this DIFFERENTIAL procedure are i n the results section . PT/APTT Routine 03/31/2019 12:28 PM SKOOG OPERATOR Resu lts for this procedure are i n the results section . CBC W/PLT COUNT & AUTO Routine 03/31/2019 12:28 PM SKOOG OPERATOR Results for this DIFFERENTIAL procedure are i n the results section . BASIC METABOLIC PANEL (7) Routine 03/31/2019 12:28 PM SKOOG OPERATOR Results for this procedure are i n the results section . after 09/05/2018 Results POCT-P2Y12 PLATELET AGGREGATION (09/06/2019 9:34 AM CDT)Only the most recent of 2 resultswithin the time period is included. POC-P2Y12 Plt Agg 79 PRU [facility] Specimen Blood Narrative Performed At RANGE INFORMATION: PRU reference range is [facility] 194-418. Post Drug Results: Lower PRU levels are associated with expected antiplatelet effect. Values may be below the stated reference range above. The post-drug PRU values reported in the VerifyNow P2Y12 package insert are [id number]. Performing Organization Address City/State/[place] [address] [place] POCT-ASPIRIN PLATELET AGGREGATION (09/06/2019 9:34 AM CDT)Only the most recent of2 resultswithin the time period is included. POC-Aspirin Plt Agg 385 ARU [facility] Specimen Blood Narrative Performed At RANGE INFORMATION: 350-549 ARU Therapeutic [facility] range for platelet function. 550-700 ARU Non-Therapeutic range for platelet function. Performing Organization Address City/[facility] Phone Number [address] [phone] CENTER Basic Metabolic Panel (09/06/2019 9:34 AM CDT)Only the most recent of13 results within the time period is included. Sodium 138 136 - 145 meq/L [facility] Potassium 5.4 (H)Comment: Specimen 3.5 - 5.1 meq/L [facility] slightly hemolyzed [facility] Chloride 107 98 - 107 meq/L [facility] CO2 23 22 - 29 meq/L [facility] BUN 60 (H) 7 - 21 mg/dL [facility] Creatinine 2.09 (H)Comment: Specimen 0.57 - 1.25 mg/dL [facility] slightly hemolyzed [facility] Glucose 108 (H) 70 - 105 mg/dL [facility] Calcium 9.9 8.4 - 10.2 mg/dL [facility] [place] EGFR 23Comment: ESTIMATED GFR IS mL/min/1.73 sq m [facility] NOT ACCURATE CREATININE ME DICAL CENTER CLEARANCE IN PREDICTING GLOMERULAR FILTRATION RATE. ESTIMATED GFR IS NOT APPLICABLE FOR DIALYSIS PATIENTS. Specimen Blood Narrative Performed At Professor Of Surgery ID - CAROLINA F [facility] Performing Organization Address City/[facility] Phone Number [address] [address] CENTER Type and screen, automated (09/06/2019 9:33 AM CDT)Only the most recent of3 resultswithin the time period is included. ABO/RH AUTOMATED (BEAKER) A POSITIVE [facility] Ab Scrn NEGATIVE [facility] Specimen Blood Performing Organization Address City/[facility]/Zipcode Phone Number [address] [address] PT/aPTT (09/06/2019 9:33 AM CDT)Only the most recent of4 resultswithin the time period is included. Protime 12.8 11.9 - 14.2 seconds [facility] INR 1.0 <=5.9 [facility] PTT 25.6 22.5 - 36.0 seconds [facility] Specimen Blood Narrative Performed At Effective 09/07/2018: PT Reference Range [facility] Change New: 11.9-14.2Previous: 11.7-14.7 RECOMMENDED COUMADIN/WARFARIN INR THERAPY RANGES STANDARD DOSE: 2.0-3.0Includes: PROPHYLAXIS for venous thrombosis, systemic embolization; TREATMENT for venous thrombosis and/or pulmonary embolus. HIGH RISK: Target INR is 2.5-3.5 for patients wiht mechanical heart valves. Performing Organization Address City/State/Zipcode Phone Number [facility] [address] [place] [address] CENTER CBC with platelet count + automated diff (09/06/2019 9:33 AM CDT)Only the most recent of3 resultswithin the time period is included. WBC 14.6 (H) 3.5 - 10.5 K/L [facility] [place] RBC 3.55 (L) 3.93 - 5.22 M/L [facility] Hemoglobin 10.5 (L) 11.2 - 15.7 GM/DL [facility] Hematocrit 34.1 34.1 - 44.9 % [facility] MCV 96.1 (H) 79.4 - 94.8 fL [facility] MCH 29.6 25.6 - 32.2 pg [facility] MCHC 30.8 (L) 32.2 - 35.5 GM/DL [facility] RDW 14.0 11.7 - 14.4 % [facility] Platelets 280 150 - 450 K/CU MM [facility] MPV 11.0 9.4 - 12.3 fL [facility] nRBC 0 0 - 0 /100 WBC [facility] % Neutros 75 % [facility] % Lymphs 14 % [facility] % Monos 6 % [facility] % Eos 4 % [facility] % Baso 0 % [facility] # Neutros 11.01 (H) 1.56 - 6.13 K/L [facility] # Lymphs 1.99 1.18 - 3.74 K/L [facility] # Monos 0.92 (H) 0.24 - 0.36 K/L [facility] # Eos 0.58 (H) 0.04 - 0.36 K/L [facility] # Baso 0.04 0.01 - 0.08 K/L [facility] Immature 1 0 - 1 % [facility] Granulocytes-Relative [facility] Specimen Blood Performing Organization Address City/[facility]/Zipcode Phone Number [address] [address] [place] RHYTHM STRIP - SCAN (05/31/2019 11:43 AM SKOOG OPERATOR) Narrative Performed At This result has an attachment that is no t available. POC-Glucose meter (05/29/2019 12:35 PM SKOOG OPERATOR)Only the most recent of40 results within the time period is included. POC-Glucose Meter 133 (H)Comment: : TESTED AT 70 - 110 mg/dL [facility] [place] [address] [place], [address]: Professor Of Surgery/Digester Operator ID = [id number] for LIZ HARDY Specimen Blood Performing Organization Address City/[facility]/Zipcode Phone Number [address] [address] [place] Hemoglobin and hematocrit (05/27/2019 10:27 AM SKOOG OPERATOR)Only the most recent of3 resultswithin the time period is included. Hemoglobin 9.3 (L) 11.2 - 15.7 GM/DL [facility] Hematocrit 28.8 (L) 34.1 - 44.9 % [facility] Specimen Blood Narrative Performed At Professor Of Surgery ID - [id number] [facility] Performing Organization Address City/[facility]/Zipcode Phone Number [facility] [address] [place] [address] CENTER Magnesium (05/26/2019 5:18 AM SKOOG OPERATOR)Only the most recent of5 resultswithin the time period is included. Magnesium 1.7 1.6 - 2.6 mg/dL [facility] Specimen Blood Narrative Performed At Professor Of Surgery ID - KEARA W [facility] Performing Organization Address City/[facility]/Zipcode Phone Number [facility] [address] [place] [address] CENTER XR chest 1 view portable / bedside (05/25/2019 7:24 PM SKOOG OPERATOR) Specimen Narrative Performed At FINAL REPORT GE RIS RAD, CHEST, 1 VIEW, NON DEPT INDICATION: shortness of breath, cough COMPARISON: None available FINDINGS: Portable frontal view of the c hest. IMPRESSION: Lungs and pleura: Lungs are clear. No pl eural effusion. No pneumothorax. Heart and mediastinum: Within normal ng its. Atherosclerotic calcifications of the thoracic aorta. Additional findings: Osseous structures are unremarkable. Signed: Karely Davis MD Report Verified Date/Time:05/25/2019 21:41:23 Procedure Note Interface, External Ris In - 05/25/2019 9:43 PM SKOOG OPERATOR FINAL REPORT RAD, CHEST, 1 VIEW, NON DEPT INDICATION: shortness of breath, cough COMPARISON: None available FINDINGS: Portable frontal view of the c hest. IMPRESSION: Lungs and pleura: Lungs are clear. No pl eural effusion. No pneumothorax. Heart and mediastinum: Within normal ng its. Atherosclerotic calcifications of the thoracic aorta. Additional findings: Osseous structures are unremarkable. Signed: Karely Davis MD Report Verified Date/Time: 05/25/2019 2 1:41:23 Performing Organization Address City/State/Zipcode Phone Number GE RIS TRANSFUSION SERVICE REPORT - SCAN (05/24/2019 5:52 PM SKOOG OPERATOR)Only the most recent of5 resultswithin the time period is included. Narrative Performed At This result has an attachment that is no t available. CBC (Hemogram only) (05/24/2019 4:59 AM SKOOG OPERATOR)Only the most recent of15 results within the time period is included. WBC 11.1 (H) 3.5 - 10.5 K/L [facility] [place] RBC 2.67 (L) 3.93 - 5.22 M/L [facility] Hemoglobin 7.8 (L) 11.2 - 15.7 GM/DL [facility] Hematocrit 24.6 (L) 34.1 - 44.9 % [facility] MCV 92.1 79.4 - 94.8 fL [facility] MCH 29.2 25.6 - 32.2 pg [facility] MCHC 31.7 (L) 32.2 - 35.5 GM/DL [facility] RDW 14.1 11.7 - 14.4 % [facility] Platelets 283 150 - 450 K/CU MM [facility] MPV 11.1 9.4 - 12.3 fL [facility] nRBC 0 0 - 0 /100 WBC [facility] Specimen Blood Performing Organization Address City/[facility]/Zipcode Phone Number [facility] [address] [place] [address] CENTER Prepare Leuko-Red RBC (05/23/2019 11:54 PM SKOOG OPERATOR)Only the most recent of2 results within the time period is included. CROSSMATCH COMPATIBLE SAFETRACE TX Unit ABO A Pos SAFETRACE TX UNIT NUMBER [id number] [place] Status TX_TIMEINCHART [place] Blood Bank Product RED BLOOD CELLS [place]AF[place] PRODUCT CODE [id number] [place] Specimen Other Performing Organization Address City/State/Zipcode Phone Number [place] Transfuse Leuko-Red RBC (05/22/2019 4:22 PM SKOOG OPERATOR)Only the most recent of4 resultswithin the time period is included.PERIPHERAL VASCULAR REPORT - SCAN (05/21/2019 9:10 PM SKOOG OPERATOR) Narrative Performed At This result has an attachment that is no t available. Potassium (05/21/2019 1:28 PM SKOOG OPERATOR) Potassium 3.9 3.5 - 5.1 meq/L [facility] Specimen Blood Narrative Performed At Professor Of Surgery ID - [facility] Performing Organization Address City/[facility] Phone Number [address] [address] CENTER Uric acid (05/21/2019 5:59 AM SKOOG OPERATOR) Uric Acid 5.7 2.6 - 7.2 mg/dL [facility] Specimen Blood Narrative Performed At Professor Of Surgery ID - [facility] Performing Organization Address [facility] Phone Number [address] [address] CENTER Venous doppler legs bilateral (05/20/2019 7:30 PM SKOOG OPERATOR) Ejection Fraction [facility] ECHO HEAR TLAB [facility] Specimen Impressions Performed At Right Impression [facility] ECHO HEARTLAB [facility] 1. There is no deep venous obstruction in the common femoral, profunda femoral, femoral, popliteal, posterior tibial or peroneal veins where visualized. 2. There is no superficial venous obstruction in the great saphenous vein where visualized. Left Impression 1. There is no deep venous obstruction in the common femoral, profunda femoral, femoral, popliteal, posterior tibial or peroneal veins where visualized. 2. There is no superficial venous obstruction in the great saphenous vein where visualized. Conclusions Summary Venous duplex imaging and compression of the bilateral lower extremities were performed. The veins were technically difficult to visualize due to edema and patient body habitus. The bilateral venous systems were patent and compressible with no evidence of thrombus where visualized. The venous Doppler waveforms were phasic with resp iration . Signature Velocities are measured in cm/s ; Diameters are measured in cm Narrative Performed At PV [facility] - Lower Extremities DVT Study [facility] ECHO HEARTLAB [facility] Demographics Patient BHARATI Lozano Date of Study 05/20/2019 79 Visit [id number] Female of 1940 [id number] Phys[facility] Animal Stunner Kelsey aceves [facility] Physician Procedure Type of Study: Veins: Lower Extremities DVT Study, VENOUS DOPPLER LEG, BILATERAL. Indications for Study:DVT. Patient Status:Routine. Study Location:Portable. Technical Quality:Technically Difficult. Risk Factors History of Disease + + + + !Diagnosis!Dom e!Comments ! + + + + !Other !!Carotid Stenosis, Stroke ! + + + + !History/Risk Factors:!05/20/2019!LLE pain ! ! !!A fib ! ! !!COPD ! ! !!HLD ! ! !!HTN ! ! !!DVT LLE? ! 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 Indications for Study:DVT. Patient Status:Routine. Study Location:Portable. Technical Quality:Technically Difficult. Risk Factors History of Disease + + + + !Diagnosis !Date ! Comments ! + + + + !Other ! ! Carotid Stenosis, Stroke ! + + + + !History/Risk Factors: !05/20/2019! LLE pain ! ! ! ! A fib ! ! ! ! COPD ! ! ! ! HLD ! ! ! ! HTN ! ! ! ! DVT LLE? ! + + + + Impressions Right Impression 1. There is no deep venous obstruction i n the common femoral, profunda femoral, femoral, popliteal, posterior t ibial or peroneal veins where visualized. 2. There is no superficial venous obstru ction in the great saphenous vein where visualized. Left Impression 1. There is no deep venous obstruction i n the common femoral, profunda femoral, femoral, popliteal, posterior t ibial or peroneal veins where visualized. 2. There is no superficial venous obstru ction in the great saphenous vein where visualized. Conclusions Summary Venous duplex imaging and compression o f the bilateral lower extremities were performed. The veins were technica lly difficult to visualize due to edema and patient body habitus. The charles ateral venous systems were patent and compressible with no evidence of th rombus where visualized. The venous Doppler waveforms were phasic with resp iration . Signature Velocities are measured in cm/s ; Diamet ers are measured in cm Performing Organization Address [facility] Phone Number [facility] ECHO HEARTLAB MK[facility] Iron, TIBC, % sat. (without ferritin) (05/20/2019 5:50 PM SKOOG OPERATOR) Iron 14.0 (L) 40.0 - 160.0 ug/dL [facility] TIBC 264 250 - 450 ug/dL [facility] Iron % Saturation 5 (L) 20 - 55 % [facility] Specimen Blood Narrative Performed At Professor Of Surgery ID - [facility] Performing Organization Address [facility] Phone Number [address] [address] CENTER Transferrin (05/20/2019 5:50 PM SKOOG OPERATOR) Transferrin 211 174 - 382 mg/dL [facility] Specimen Blood Narrative Performed At Professor Of Surgery ID - [facility] Performing Organization Address [facility] Phone Number [address] [address] CENTER Ferritin (05/20/2019 5:50 PM SKOOG OPERATOR) Ferritin 29 5 - 275 ng/mL [facility] Specimen Blood Narrative Performed At Professor Of Surgery ID - [facility] Performing Organization Address [facility] Phone Number [address] [address] CENTER XR ankle 1 view left (05/20/2019 10:10 AM SKOOG OPERATOR) Specimen Narrative Performed At FINAL REPORT GE RIS TECHNIQUE: Two views of left ankle HISTORY: left ankle pain. COMPARISON: None. IMPRESSION: No acute displaced fracture or dislocati on. Joint spaces are within normal limits. Minimal Achilles enthesopathy. Large nisa ntar calcaneal spur and enthesopathy. Signed: Steven Lyman MD Report Verified Date/Time:05/20/2019 18:09:20 Reading Location: [facility] C013 Consult R eading Room Procedure Note Interface, External Ris In - 05/20/2019 6:11 PM SKOOG OPERATOR FINAL REPORT TECHNIQUE: Two views of left ankle HISTORY: left ankle pain. COMPARISON: None. IMPRESSION: No acute displaced fracture or dislocati on. Joint spaces are within normal limits. Minimal Achilles enthesopathy. Large nisa ntar calcaneal spur and enthesopathy. Signed: Steven Lyman MD Report Verified Date/Time: 05/20/2019 1 8:09:20 Reading Location: [facility] B1 [id number] Consult R eading Room Performing Organization Address City/State/Zipcode Phone Number [facility] REPORT OF PROCEDURE - ENDOSCOPY URL (05/20/2019 8:39 AM SKOOG OPERATOR) Narrative Performed At This result has an attachment that is no t available. Phosphorus (05/20/2019 4:06 AM SKOOG OPERATOR)Only the most recent of3 resultswithin the time period is included. Phosphorus 3.3Comment: Specimen slightly 2.3 - 4.7 mg/dL [facility] I [facility] hemolyzed MEDICAL CENTER Specimen Blood Narrative Performed At Professor Of Surgery ID - TERRI Chao [facility] Performing Organization Address City/State/Zipcode Phone Number [facility] [address] [place] [address] CENTER Fibrinogen (05/19/2019 7:25 AM SKOOG OPERATOR) Fibrinogen 489 (H) 225 - 434 mg/dl [facility] Specimen Blood Performing Organization Address City/State/Zipcode Phone Number [facility] [address] [place] [address] CENTER [place] Carotid Artery Stent Placement w/Protection (05/17/2019 3:25 PM SKOOG OPERATOR) Specimen Narrative Performed At FINAL REPORT MEHUL BENAVIDEZ Date of procedure May 17, 2019 CLINICAL HISTORY: 79 years female with r ecent arteriogram demonstrating heavily calcified irregula r plaque at the origin of the left internal carotid artery with severe focal stenosis of approximately 95- 99 % and poor antegrad e flow . After detailed discussions with the referring physician and the patient and his family the patient returned for angiopla sty and stenting. Procedure: The risks and benefits of the procedure as well as alternative treatment were explained to the patient and his family and they expressed understanding and willingness to proceed with the procedure. A consent form was signed. Th e risks include but not limited to stroke, aneurysm rupture, sei zure, damage to the blood vessels, hemorrhage, loss of vision, dam age to the cranial nerves with loss of motor and sensory functions , infection, allergic reaction to the contrast, damage to the kidney with renal failure,need for additional treatment, c omplications of general anesthesia and . Neuroleptic sedation and monitoring was provided by anesthesiology. Using a micropuncture set and under fluo roscopic guidance and strict sterile technique a 6 Tongan shuttle she ath was inserted through the right common femoral artery into the lef t common carotid artery. Under systemic anticoagulation to keep t he ACT between 250 and 300 and following premedication with Plavix aspirin the following procedure was performed: 1. Pretreatment selective left common ca rotid arteriogram with biplane and oblique imaging over the car otid bifurcation. 2. Pretreatment selective left common ca rotid arteriogram with biplane imaging over the intracranial ca rotid circulation. 3. Successful stenting and angioplasty o f proximal left internal carotid artery stenosis. 4. Post treatment the left common caroti d arteriogram with biplane imaging over the carotid bifurcation. 5. Posttreatment left common carotid art eriogram with biplane imaging over the intracranial carotid circulatio n. Finding: The pretreatment left common carotid art eriogram with biplane and oblique imaging over the carotid bifurca tion demonstrates an irregular plaque involving the origin of the left internal carotid arterywith severe stenosis of approx imately 95%. There is poor delayed antegrade flow distal to the luca notic segment. Following the diagnostic angiogram, and via left common carotid artery approach, An SL 10 microcatheter was gently advanced over a microwire past the stenotic segment. An exchange wire was then placed within the microcatheter. Over the excha nge wire a 4 x 20 mm balloon was utilized for predilatation of the st enotic segment. The balloon was then removed. Post angioplasty shows mild improvement in the lumenal diameter with residual stenosis of approximately 70%. A distal protective device (EmboShield) wa s gently navigated through the stenotic segment and positioned in t he distal cervical segment of the left internal carotid artery. A self expanded nitinol stent ( XACT) which measures 8-6 x 40 mm was was introduced over the wire of the protective device and successfully d eployed across the stenotic segment extending from the proximal cerv ical segment of the left internal carotid artery to the distal se gment of the left common carotid artery. A 4 x 20 mm mm balloon w ere introduced over the wire of the protective device and utilized fo r post stent deployment angioplasty. The protection devise was t hen removed using the retrieval sheath. Post treatment arteriogram demonstrates good apposition of the stent to the arterial wall with pentecostalism of the intraluminal flow and mild residual stenosis of approximately 20%. There is no evidence of platelet aggregation, or dissection. Int racranially there is pentecostalism of good antegrade flow with no evidence of acute clot formation. The MCA on the left side fill s normally At the end of the procedure hemostasis w as achieved utilizing manual compression and the deployment AngioSeal device. The patient tolerated the procedure well without acu te complication related to the procedure. Impression: 1. Successful stenting and angioplasty o f proximal left internal carotid artery stenosis. 2. The patient should remain on antiplat elet therapy. Signed: Khai Carrasco MD Report Verified Date/Time:05/17/2019 15:10:42 Reading Location: [facility] Y018 [facility] o Reading Room Procedure Note Interface, External Ris In - 05/17/2019 3:32 PM SKOOG OPERATOR FINAL REPORT Date of procedure May 17, 2019 CLINICAL HISTORY: 79 years female with r ecent arteriogram demonstrating heavily calcified irregula r plaque at the origin of the left internal carotid artery with severe focal stenosis of approximately 95- 99 % and poor antegrad e flow . After detailed discussions with the referring physician and the patient and his family the patient returned for angiopla sty and stenting. Procedure: The risks and benefits of the procedure as well as alternative treatment were explained to the patient and his family and they expressed understanding and willingness to proceed with the procedure. A consent form was signed. Th e risks include but not limited to stroke, aneurysm rupture, sei zure, damage to the blood vessels, hemorrhage, loss of vision, dam age to the cranial nerves with loss of motor and sensory functions , infection, allergic reaction to the contrast, damage to the kidney with renal failure,need for additional treatment, c omplications of general anesthesia and . Neuroleptic sedation and monitoring was provided by anesthesiology. Using a micropuncture set and under fluo roscopic guidance and strict sterile technique a 6 Tongan shuttle she ath was inserted through the right common femoral artery into the lef t common carotid artery. Under systemic anticoagulation to keep t he ACT between 250 and 300 and following premedication with Plavix aspirin the following procedure was performed: 1. Pretreatment selective left common ca rotid arteriogram with biplane and oblique imaging over the car otid bifurcation. 2. Pretreatment selective left common ca rotid arteriogram with biplane imaging over the intracranial ca rotid circulation. 3. Successful stenting and angioplasty o f proximal left internal carotid artery stenosis. 4. Post treatment the left common caroti d arteriogram with biplane imaging over the carotid bifurcation. 5. Posttreatment left common carotid art eriogram with biplane imaging over the intracranial carotid circulatio n. Finding: The pretreatment left common carotid art eriogram with biplane and oblique imaging over the carotid bifurca tion demonstrates an irregular plaque involving the origin of the left internal carotid artery with severe stenosis of approxim ately 95%. There is poor delayed antegrade flow distal to the luca notic segment. Following the diagnostic angiogram, and via left common carotid artery approach, An SL 10 microcatheter was gently advanced over a microwire past the stenotic segment. An exchange wire was then placed within the microcatheter. Over the excha nge wire a 4 x 20 mm balloon was utilized for predilatation of the st enotic segment. The balloon was then removed. Post angioplasty shows mild improvement in the lumenal diameter with residual stenosis of approximately 70%. A distal protective device (EmboShield) wa s gently navigated through the stenotic segment and positioned in t he distal cervical segment of the left internal carotid artery. A self expanded nitinol stent ( XACT) which measures 8-6 x 40 mm was was introduced over the wire of the protective device and successfully d eployed across the stenotic segment extending from the proximal cerv ical segment of the left internal carotid artery to the distal se gment of the left common carotid artery. A 4 x 20 mm mm balloon w ere introduced over the wire of the protective device and utilized fo r post stent deployment angioplasty. The protection devise was t hen removed using the retrieval sheath. Post treatment arteriogram demonstrates good apposition of the stent to the arterial wall with pentecostalism of the intraluminal flow and mild residual stenosis of approximately 20%. There is no evidence of platelet aggregation, or dissection. Int racranially there is pentecostalism of good antegrade flow with no evidence of acute clot formation. The MCA on the left side fill s normally At the end of the procedure hemostasis w as achieved utilizing manual compression and the deployment AngioSeal device. The patient tolerated the procedure well without acu te complication related to the procedure. Impression: 1. Successful stenting and angioplasty o f proximal left internal carotid artery stenosis. 2. The patient should remain on antiplat elet therapy. Signed: Khai Carrasco MD Report Verified Date/Time: 05/17/2019 1 5:10:42 Reading Location: [facility] Y018 [facility] o Reading Room Performing Organization Address City/State/Zipcode Phone Number GE RIS aPTT (05/17/2019 8:55 AM SKOOG OPERATOR)Only the most recent of6 resultswithin the time period is included. PTT 37.6 (H) 22.5 - 36.0 seconds [facility] Specimen Blood Performing Organization Address City/State/Zipcode Phone Number [facility] [address] [place] [address] CENTER Prothrombin time/INR (05/17/2019 8:55 AM SKOOG OPERATOR)Only the most recent of2 results within the time period is included. Protime 13.7 11.9 - 14.2 seconds [facility] INR 1.1 <=5.9 [facility] Specimen Blood Narrative Performed At Effective 09/07/2018: PT Reference Range [facility] Change New: 11.9-14.2Previous: 11.7-14.7 RECOMMENDED COUMADIN/WARFARIN INR THERAPY RANGES STANDARD DOSE: 2.0-3.0Includes: PROPHYLAXIS for venous thrombosis, systemic embolization; TREATMENT for venous thrombosis and/or pulmonary embolus. HIGH RISK: Target INR is 2.5-3.5 for patients wiht mechanical heart valves. 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 The patient is referred for an giographic evaluation. Procedure: The risk and benefits of the procedure a s well as alternatives were explained to the patient and his family and they expressed understanding and willingness to proceed with the procedure. A consent form was signed by the patient. The risks include but not limited to stroke, damage to the blood v essels, aneurysm rupture, hemorrhage, damage to the cranial nerves with loss motor, and sensory functions, loss of vision, infection, al lergic reaction to the contrast, damage to the kidney with ej l failure,need for additional treatment, and . Neuroleptic sedation was provided by [facility]. Using a micropuncture set and under fluo roscopic guidance and strict sterile technique a 4 Tongan femoral she ath was inserted into the right radial artery. Through the sheath a 4 Tongan Yamsafer catheter was then advanced over the wire and the following procedure was performed: 1. Selective right common carotid arteri ogram with biplane imaging over the common carotid bifurcation. 2. Selective right common carotid arteri ogram with biplane imaging over the intracranial carotid circulatio n. 3. Selective left common carotid arterio gram with biplane imaging over the common carotid bifurcation. 4. Selective left common carotid arterio gram with biplane and oblique imaging over the intracranial carotid ci rculation. 5. Selective left subclavian arteriogram with biplane imaging over the vertebrobasilar circulation. 6. Selective right vertebral arteriogram with biplane and oblique imaging over the vertebrobasilar circula tion. 7. Selective right vertebral arteriogram with three-dimensional rotational imaging which was reconstruct ed on a dedicated workstation for better understanding of the anatomy. Findings: The selective right common carotid arter iogram with biplane imaging over the common carotid bifurcation demo nstrates normal bifurcation of the common carotid artery with no ang iographic evidence of dissection, aneurysm, significant focal stenosis , or other vascular abnormality. The selective right common carotid arter iogram with biplane ,and three-dimensional imaging demonstrates n ormal antegrade flow with no angiographic evidence of aneurysm, vascu lar malformation, vasculitis, major branch occlusion, significant foca l stenosis, dural arteriovenous fistula, or other vascular abnormality. There is flash filling of the left anterior cerebral ar sary through a patent anterior communicating artery filling th e left KIRSTEN. The left A1 is not visualized. There is no significant pial collaterals. The venous system is within normal limits. The selective left common carotid arteri ogram with biplane imaging over the common carotid bifurcation demo nstrates a critical 99% stenosis of the left ICA just distal to the origin. The flow intracranially is extremely delayed. The selective left common carotid arteri ogram with biplane ,and oblique imaging demonstrates extremely d elayed antegrade flow with no angiographic evidence of aneurysm, vascu lar malformation, vasculitis, major branch occlusion, significant foca l stenosis, dural arteriovenous fistula, or other vascular abnormality. The venous system is within normal limits. The selective left subclavian artery rev iew left vertebral artery origin occlusion. The selective right vertebral arteriogra m with 3-D rotational angiography demonstrates normal antegrad e flow with a large basilar apex aneurysm. The aneurysm measured 6.8 mm at the neck 7 mm with an 6 mm height. At the end of the procedure, the right f emoral sheath was removed. Local hemostasis was achieved utilizing manual compression. The patient tolerated the procedure well wit hout complication. SUMMARY: 1. Critical 99% left ICA stenosis right distal to the origin. 2. 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 The patient is referred for an giographic evaluation. Procedure: The risk and benefits of the procedure a s well as alternatives were explained to the patient and his family and they expressed understanding and willingness to proceed with the procedure. A consent form was signed by the patient. The risks include but not limited to stroke, damage to the blood v essels, aneurysm rupture, hemorrhage, damage to the cranial nerves with loss motor, and sensory functions, loss of vision, infection, al lergic reaction to the contrast, damage to the kidney with ej l failure,need for additional treatment, and . Neuroleptic sedation was provided by [facility]. Using a micropuncture set and under fluo roscopic guidance and strict sterile technique a 4 Tongan femoral she ath was inserted into the right radial artery. Through the sheath a 4 Tongan Yamsafer catheter was then advanced over the wire and the following procedure was performed: 1. Selective right common carotid arteri ogram with biplane imaging over the common carotid bifurcation. 2. Selective right common carotid arteri ogram with biplane imaging over the intracranial carotid circulatio n. 3. Selective left common carotid arterio gram with biplane imaging over the common carotid bifurcation. 4. Selective left common carotid arterio gram with biplane and oblique imaging over the intracranial carotid ci rculation. 5. Selective left subclavian arteriogram with biplane imaging over the vertebrobasilar circulation. 6. Selective right vertebral arteriogram with biplane and oblique imaging over the vertebrobasilar circula tion. 7. Selective right vertebral arteriogram with three-dimensional rotational imaging which was reconstruct ed on a dedicated workstation for better understanding of the anatomy. Findings: The selective right common carotid arter iogram with biplane imaging over the common carotid bifurcation demo nstrates normal bifurcation of the common carotid artery with no ang iographic evidence of dissection, aneurysm, significant focal stenosis , or other vascular abnormality. The selective right common carotid arter iogram with biplane ,and three-dimensional imaging demonstrates n ormal antegrade flow with no angiographic evidence of aneurysm, vascu lar malformation, vasculitis, major branch occlusion, significant foca l stenosis, dural arteriovenous fistula, or other vascular abnormality. There is flash filling of the left anterior cerebral ar sary through a patent anterior communicating artery filling th e left KIRSTEN. The left A1 is not visualized. There is no significant pial collaterals. The venous system is within normal limits. The selective left common carotid arteri ogram with biplane imaging over the common carotid bifurcation demo nstrates a critical 99% stenosis of the left ICA just distal to the origin. The flow intracranially is extremely delayed. The selective left common carotid arteri ogram with biplane ,and oblique imaging demonstrates extremely d elayed antegrade flow with no angiographic evidence of aneurysm, vascu lar malformation, vasculitis, major branch occlusion, significant foca l stenosis, dural arteriovenous fistula, or other vascular abnormality. The venous system is within normal limits. The selective left subclavian artery rev iew left vertebral artery origin occlusion. The selective right vertebral arteriogra m with 3-D rotational angiography demonstrates normal antegrad e flow with a large basilar apex aneurysm. The aneurysm measured 6.8 mm at the neck 7 mm with an 6 mm height. At the end of the procedure, the right f emoral sheath was removed. Local hemostasis was achieved utilizing manual compression. The patient tolerated the procedure well wit hout complication. SUMMARY: 1. Critical 99% left ICA stenosis right distal to the origin. 2. 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 Signed: Khai Carrasco MD Report Verified Date/Time: 05/16/2019 1 6:45:20 Reading Location: [facility] B1 Y018 Neuro Radha o Reading Room Performing Organization Address City/State/Zipcode Phone Number [employer] Carotid doppler bilateral (05/16/2019 12:00 PM SKOOG OPERATOR) Ejection Fraction [facility] E[facility] HEAR [facility] CPACS Specimen Impressions Performed At Right [facility] ECHO HEARTLAB [facility] CPACS 1. The internal carotid artery is within normal limits. 2. There is non-occluding plaque in the external carotid artery. 3. There is non-occluding plaque in the common carotid artery. 4. The vertebral artery flow is antegrade and normal. Left Impression 1. There is 70-99% diameter reduction in the internal carotid artery with heterogeneous plaque, a peak velocity of >522/178 cm/sec and an ICA/CCA peak systolic velocity ratio of 5.8. 2. There is >50% stenosis in the external carotid artery with a velocity of 293/70 cm/sec. 3. There is non-occluding plaque in the common carotid artery. 4. The vertebral artery was not visualiz ed. Conclusions Summary Carotid duplex scanning and color flow imaging were performed bilaterally. The arteries were adequately visualized. The right internal carotid artery was normal with no plaque visualized. The left internal carotid artery had 70-99% hemodynamically significant stenosis with heterogeneous plaque. The right vertebral artery was antegrade. The left vertebral artery was not visualized. *2D measurement was not obtained due to shadowing. Increased Doppler velocities of >522/178 cm/sec suggestive of a >80% diameter reduction. Signature Velocities are measured in cm/s ; Diameters are measured in cm Carotid Right Measurements + +----+----+-----+ +---- + + !Location !PSV !EDV !Angle!%Stenosis 2D!%Stenosis Doppler!Tortuosity ! + +----+----+-----+ +---- + + !Prox CCA !123 !29!60 !! ! ! + +----+----+-----+ +---- + + !Dist CCA !110 !24!60 !! ! ! + +----+----+-----+ +---- + + !Prox ICA !123 !25!60 !! ! ! + +----+----+-----+ +---- + + !Dist ICA !109 !34!60 !! ! ! + +----+----+-----+ +---- + + !Prox ECA !187 !33!60 !! ! ! + +----+----+-----+ +---- + + !Vertebral!33.8!7.07!60 !! ! ! + +----+----+-----+ +---- + + !Prox Subclavian!135 !!60 !! ! ! + +----+----+-----+ +---- + + - Additional Measurements:ICAPSV/CCAPSV 1.12.ICAEDV/CCAEDV 1.17. Carotid Left Measurements + +---+----+-----+ +----- + + !Location !PSV!EDV !Angle!%Stenosis 2D!%Stenosis Doppler !Tortuosity ! + +---+----+-----+ +----- + + !Prox CCA !88 !9 !60 !! ! ! + +---+----+-----+ +----- + + !Dist CCA !90 !12!60 !! ! ! + +---+----+-----+ +----- + + !Prox ICA !522!178 !60 !! ! ! + +---+----+-----+ +----- + + !Dist ICA !134!28!60 !! ! ! + +---+----+-----+ +----- + + !Prox ECA !293!70!60 !! ! ! + +---+----+-----+ +----- + + !Prox Subclavian!164!30.1!60 !! ! ! + +---+----+-----+ +----- + + - Additional Measurements:ICAPSV/CCAPSV 5.8.ICAEDV/CCAEDV 19.78. Narrative Performed At LAB - Carotid Duplex Study [facility] Demographics Patient NameBHARATI BRAVO Date of Study 05/16/2019 79 Visit [id number] Female of 1940 Referring SHALONDA BENNETT Room Number [id number] Physician Animal Stunner Pramod aceves, T Physician DOHERTY Procedure Type of Study: Cerebral: Carotid, CAROTID DOPPLER, CHARLES ATERAL. Indications for Study:Carotid stenosis . Patient Status:Routine. Study Location:Portable. Technical Quality:Adequate visualization . - Results were reported to:SARAI DOHERTY@ [facility]. Risk Factors History of Disease +---------+----+ + !Diagnosis!Date!Comments ! +---------+----+ + !Other!!Carotid Stenosis, Stroke ! +---------+----+ + Procedure Note Interface, External Ris In - 05/17/2019 1:06 PM SKOOG OPERATOR PV LAB - Carotid Duplex Study Demographics Patient Name BHARATI BRAVO Dom e of Study 05/16/2019 Age 79 Visit Number [id number] Gen hebert Female Accession Number [id number] Dom e of 1940 Referring SHALONDA BENNETT Adele m Number [id number] Physician Animal Stunner Pramod Pizarro Int erpreting Tonya Burleson, T Cira mcdonald MD Procedure Type of Study: Cerebral: Carotid, CAROTID DOPPLER, CHARLES ATERAL. Indications for Study:Carotid stenosis . Patient Status:Routine. Study Location:Portable. Technical Quality:Adequate visualization . - Results were reported to:SARAI DOHERTY@. Risk Factors History of Disease +---------+----+ + !Diagnosis!Date!Comments ! +---------+----+ + !Other ! !Carotid Stenosis, Stroke ! +---------+----+ + Impressions Right Impression 1. The internal carotid artery is within normal limits. 2. There is non-occluding plaque in the external carotid artery. 3. There is non-occluding plaque in the common carotid artery. 4. The vertebral artery flow is antegrad e and normal. Left Impression 1. There is 70-99% diameter reduction in the internal carotid artery with heterogeneous plaque, a peak velocity of >522/178 cm/sec and an ICA/CCA peak systolic velocity ratio of 5.8. 2. There is >50% stenosis in the externa l carotid artery with a velocity of 293/70 cm/sec. 3. There is non-occluding plaque in the common carotid artery. 4. The vertebral artery was not visualiz ed. Conclusions Summary Carotid duplex scanning and color flow imaging were performed bilaterally. The arteries were adequately visualized . The right internal carotid artery was normal with no plaque visualized. T he left internal carotid artery had 70-99% hemodynamically significant sten osis with heterogeneous plaque. The right vertebral artery was antegrade. T he left vertebral artery was not visualized. *2D measurement was not obtained due to shadowing. Increased Doppler velocities of >522/178 cm/sec suggestiv e of a >80% diameter reduction. Signature Velocities are measured in cm/s ; Diamet ers are measured in cm Carotid Right Measurements + +----+----+-----+------- -----+ + + !Location !PSV !EDV !Angle!%Stenos is 2D!%Stenosis Doppler!Tortuosity ! + +----+----+-----+------- -----+ + + !Prox CCA !123 !29 !60 ! ! ! ! + +----+----+-----+------- -----+ + + !Dist CCA !110 !24 !60 ! ! ! ! + +----+----+-----+------- -----+ + + !Prox ICA !123 !25 !60 ! ! ! ! + +----+----+-----+------- -----+ + + !Dist ICA !109 !34 !60 ! ! ! ! + +----+----+-----+------- -----+ + + !Prox ECA !187 !33 !60 ! ! ! ! + +----+----+-----+------- -----+ + + !Vertebral !33.8!7.07!60 ! ! ! ! + +----+----+-----+------- -----+ + + !Prox Subclavian!135 ! !60 ! ! ! ! + +----+----+-----+------- -----+ + + - Additional Measurements:ICAPSV/CCAPS V 1.12.ICAEDV/CCAEDV 1.17. Carotid Left Measurements + +---+----+-----+-------- ----+ + + !Location !PSV!EDV !Angle!%Stenosi s 2D!%Stenosis Doppler !Tortuosity ! + +---+----+-----+-------- ----+ + + !Prox CCA !88 !9 !60 ! ! ! ! + +---+----+-----+-------- ----+ + + !Dist CCA !90 !12 !60 ! ! ! ! + +---+----+-----+-------- ----+ + + !Prox ICA !522!178 !60 ! ! ! ! + +---+----+-----+-------- ----+ + + !Dist ICA !134!28 !60 ! ! ! ! + +---+----+-----+-------- ----+ + + !Prox ECA !293!70 !60 ! ! ! ! + +---+----+-----+-------- ----+ + + !Prox Subclavian!164!30.1!60 ! ! ! ! + +---+----+-----+-------- ----+ + + - Additional Measurements:ICAPSV/CCAPS V 5.8.ICAEDV/CCAEDV 19.78. Performing Organization Address City/[facility]/Zipcode Phone Number [facility] CPACS Platelet count (05/16/2019 2:36 AM SKOOG OPERATOR) Platelets 231 150 - 450 K/CU MM [facility] Specimen Blood Narrative Performed At Professor Of Surgery ID - [id number] [facility] Performing Organization Address City/State/Zipcode Phone Number [facility] [address] [place] [address] CENTER CTA carotid (05/15/2019 11:45 PM SKOOG OPERATOR) Specimen Narrative Performed At FINAL REPORT [place] RIS EXAM: CT, CT Angio, Brain.CT Carotid Angio CLINICAL HISTORY: Neuro deficit, acute, stroke suspected COMPARISON: None. TECHNIQUE: CT angiogram of the head and neck was performed with intravenous contrast.2-D and 3-D ref ormatted images were obtained. This exam was performed according to our departmental dose optimization program which includes auto mated exposure control, adjustment of the mA and/or kV according to patient's size and/or use of iterative reconstructive technique. FINDINGS: CTA head: There are mild atherosclerotic calcifications of the bilateral carotid siphons. There is good flow related enhancement of the bilateral anterior, middle and poste rior cerebral arteries and within the basilar artery. The intracran ial and skull base internal carotid arteries as well as the vertebra l arteries demonstrate normal flow-related enhancement. There is mild long segment stenosis of the proximal left intradural vertebral arter y. There is no vessel occlusion or flow-ng iting stenosis. The dural venous sinuses are patent. 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 CTA neck: The visualized aortic arch and great vessel origins are unremarkable except for calcific atheros clerosis. There are small ulcerations of the dista l right common carotid artery. The right internal carotid artery has a retropharyngeal course. There are atheromatous changes of the left car otid bulb with calcified and noncalcified plaque resulting in mild st enosis. There is near occlusion/ severe stenosis of the proxim al left cervical ICA (approximately 79% criteria NASCET crite donnell) due to calcified and noncalcified mural plaque. The vertebral arteries are well visuali zed. There is mild stenosis of the bilateral vertebral artery origin s due to calcified and noncalcified mural plaque. IMPRESSION: CTA head: 8 x 7 x 8 mm basilar tip aneur ysm. Mild long segment stenosis of the proximal left intradural vertebral artery. No vessel occlusion or flow-limiting stenosis. CTA neck: Critical stenosis of the proxi mal left cervical ICA. Discussed with covering neurology reside nt at approximately 1:05 AM 05/16/2019. Signed: Fabiano Montoya MD Report Verified Date/Time:05/16/2019 01:09:25 Procedure Note Interface, External Ris In - 05/16/2019 1:12 AM SKOOG OPERATOR FINAL REPORT EXAM: CT, CT Angio, Brain. CT Carotid A ngio CLINICAL HISTORY: Neuro deficit, acute, stroke suspected COMPARISON: None. TECHNIQUE: CT angiogram of the head and neck was performed with intravenous contrast. 2-D and 3-D refor matted images were obtained. This exam was performed according to our departmental dose optimization program which includes auto mated exposure control, adjustment of the mA and/or kV according to patient's size and/or use of iterative reconstructive technique. FINDINGS: CTA head: There are mild atherosclerotic calcifications of the bilateral carotid siphons. There is good flow related enhancement of the bilateral anterior, middle and poste rior cerebral arteries and within the basilar artery. The intracran ial and skull base internal carotid arteries as well as the vertebra l arteries demonstrate normal flow-related enhancement. There is mild long segment stenosis of the proximal left intradural vertebral arter y. There is no vessel occlusion or flow-ng iting stenosis. The dural venous sinuses are patent. 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 CTA neck: The visualized aortic arch and great vessel origins are unremarkable except for calcific atheros clerosis. There are small ulcerations of the dista l right common carotid artery. The right internal carotid artery has a retropharyngeal course. There are atheromatous changes of the left car otid bulb with calcified and noncalcified plaque resulting in mild st enosis. There is near occlusion/ severe stenosis of the proxim al left cervical ICA (approximately 79% criteria NASCET crite donnell) due to calcified and noncalcified mural plaque. The vertebral arteries are well visuali zed. There is mild stenosis of the bilateral vertebral artery origin s due to calcified and noncalcified mural plaque. IMPRESSION: CTA head: 8 x 7 x 8 mm basilar tip aneur ysm. Mild long segment stenosis of the proximal left intradural vertebral artery. No vessel occlusion or flow-limiting stenosis. CTA neck: Critical stenosis of the proxi mal left cervical ICA. Discussed with covering neurology reside nt at approximately 1:05 AM 05/16/2019. Signed: Fabiano Montoya MD Report Verified Date/Time: 05/16/2019 0 1:09:25 Performing Organization Address City/State/Zipcode Phone Number [facility] [employer] CT brain cerebral perfusion analysis (05/15/2019 11:45 PM SKOOG OPERATOR) Specimen Narrative Performed At FINAL REPORT [employer] CT cerebral perfusion analysis. Comparison: None. Reason for exam: Neuro deficit, acute, s troke suspected. Discussion: CT imaging was provided usin g perfusion technique with associated post processed perfusion anal ysis maps including main transit time, time to peak, blood flow, and blood volume. Dose modulation, iterative reconstruction, an d/or weight based adjustment of the mA/kV was utilized to reduce the radiation dose to as low as reasonably achievable. There is a large area of matched perfusi on defects (increased mean transit time, decreased cerebral blood f low and decreased cerebral blood volume) in the left MCA territory consistent with an infarct core. Impression: Large left MCA infarct core. Discussed with covering neurology reside nt at approximately 1:20 AM 05/16/2018. Signed: Fabiano Montoya MD Report Verified Date/Time:05/16/2019 01:22:48 Procedure Note Interface, External Ris In - 05/16/2019 1:25 AM SKOOG OPERATOR FINAL REPORT CT cerebral perfusion analysis. Comparison: None. Reason for exam: Neuro deficit, acute, s troke suspected. Discussion: CT imaging was provided usin g perfusion technique with associated post processed perfusion anal ysis maps including main transit time, time to peak, blood flow, and blood volume. Dose modulation, iterative reconstruction, an d/or weight based adjustment of the mA/kV was utilized to reduce the radiation dose to as low as reasonably achievable. There is a large area of matched perfusi on defects (increased mean transit time, decreased cerebral blood f low and decreased cerebral blood volume) in the left MCA territory consistent with an infarct core. Impression: Large left MCA infarct core. Discussed with covering neurology reside nt at approximately 1:20 AM 05/16/2018. Signed: Fabiano Montoya MD Report Verified Date/Time: 05/16/2019 0 1:22:48 Performing Organization Address City/State/Zipcode Phone Number [employer] CTA brain (05/15/2019 11:45 PM SKOOG OPERATOR) Specimen Narrative Performed At FINAL REPORT [facility] EXAM: CT, CT Angio, Brain.CT Carotid Angio CLINICAL HISTORY: Neuro deficit, acute, stroke suspected COMPARISON: None. TECHNIQUE: CT angiogram of the head and neck was performed with intravenous contrast.2-D and 3-D ref ormatted images were obtained. This exam was performed according to our departmental dose optimization program which includes auto mated exposure control, adjustment of the mA and/or kV according to patient's size and/or use of iterative reconstructive technique. FINDINGS: CTA head: There are mild atherosclerotic calcifications of the bilateral carotid siphons. There is good flow related enhancement of the bilateral anterior, middle and poste rior cerebral arteries and within the basilar artery. The intracran ial and skull base internal carotid arteries as well as the vertebra l arteries demonstrate normal flow-related enhancement. There is mild long segment stenosis of the proximal left intradural vertebral arter y. There is no vessel occlusion or flow-ng iting stenosis. The dural venous sinuses are patent. 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 CTA neck: The visualized aortic arch and great vessel origins are unremarkable except for calcific atheros clerosis. There are small ulcerations of the dista l right common carotid artery. The right internal carotid artery has a retropharyngeal course. There are atheromatous changes of the left car otid bulb with calcified and noncalcified plaque resulting in mild st enosis. There is near occlusion/ severe stenosis of the proxim al left cervical ICA (approximately 79% criteria NASCET crite donnell) due to calcified and noncalcified mural plaque. The vertebral arteries are well visuali zed. There is mild stenosis of the bilateral vertebral artery origin s due to calcified and noncalcified mural plaque. IMPRESSION: CTA head: 8 x 7 x 8 mm basilar tip aneur ysm. Mild long segment stenosis of the proximal left intradural vertebral artery. No vessel occlusion or flow-limiting stenosis. CTA neck: Critical stenosis of the proxi mal left cervical ICA. Discussed with covering neurology reside nt at approximately 1:05 AM 05/16/2019. Signed: Fabiano Montoya MD Report Verified Date/Time:05/16/2019 01:09:25 Procedure Note Interface, External Ris In - 05/16/2019 1:12 AM SKOOG OPERATOR FINAL REPORT EXAM: CT, CT Angio, Brain. CT Carotid A ngio CLINICAL HISTORY: Neuro deficit, acute, stroke suspected COMPARISON: None. TECHNIQUE: CT angiogram of the head and neck was performed with intravenous contrast. 2-D and 3-D refor matted images were obtained. This exam was performed according to our departmental dose optimization program which includes auto mated exposure control, adjustment of the mA and/or kV according to patient's size and/or use of iterative reconstructive technique. FINDINGS: CTA head: There are mild atherosclerotic calcifications of the bilateral carotid siphons. There is good flow related enhancement of the bilateral anterior, middle and poste rior cerebral arteries and within the basilar artery. The intracran ial and skull base internal carotid arteries as well as the vertebra l arteries demonstrate normal flow-related enhancement. There is mild long segment stenosis of the proximal left intradural vertebral arter y. There is no vessel occlusion or flow-ng iting stenosis. The dural venous sinuses are patent. 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 CTA neck: The visualized aortic arch and great vessel origins are unremarkable except for calcific atheros clerosis. There are small ulcerations of the dista l right common carotid artery. The right internal carotid artery has a retropharyngeal course. There are atheromatous changes of the left car otid bulb with calcified and noncalcified plaque resulting in mild st enosis. There is near occlusion/ severe stenosis of the proxim al left cervical ICA (approximately 79% criteria NASCET crite donnell) due to calcified and noncalcified mural plaque. The vertebral arteries are well visuali zed. There is mild stenosis of the bilateral vertebral artery origin s due to calcified and noncalcified mural plaque. IMPRESSION: CTA head: 8 x 7 x 8 mm basilar tip aneur ysm. Mild long segment stenosis of the proximal left intradural vertebral artery. No vessel occlusion or flow-limiting stenosis. CTA neck: Critical stenosis of the proxi mal left cervical ICA. Discussed with covering neurology reside nt at approximately 1:05 AM 05/16/2019. Signed: Fabiano Montoya MD Report Verified Date/Time: 05/16/2019 0 1:09:25 Performing Organization Address City/State/Zipcode Phone Number [facility] [employer] CT brain/stroke test design (05/15/2019 11:21 PM SKOOG OPERATOR) Specimen Narrative Performed At FINAL REPORT [employer] EXAM: CT head without contrast. CLINICAL HISTORY: Focal neuro deficit, n ew, fixed or worsening, <6 hours COMPARISON: Same-day brain MRI. TECHNIQUE: CT images of the head were ob tained without intravenous contrast.This exam was performed acc ording to our departmental dose optimization program which includes auto mated exposure control, adjustment of the mA and/or kV according to patient's size and/or use of iterative reconstructive technique. FINDINGS: There is mild generalized parenchymal at rophy. There are mild white matter microvascula r ischemic changes. There is intracranial calcific atherosclerosis. There is an 8 x 7 mm opacity in the inte rpeduncular fossa consistent with a basilar tip aneurysm. There is no acute intracranial hemorrhag e, extra-axial fluid collection, mass effect, herniation, hyd rocephalus or large demarcated acute territorial infarct. The basal cisterns are patent. There are bilateral lens replacements. The visualized paranasal sinuses and tympanomastoid cavities are clear.The skull base and calvarium are intact. IMPRESSION: Mild white matter microvascular ischemic changes. No acute intracranial hemorrhage, mass e ffect or large demarcated acute territorial infarct. 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 Discussed with neurology resident at 11: 30 PM 05/15/2019. Signed: Fabiano Montoya MD Report Verified Date/Time:05/15/2019 23:34:22 Procedure Note Interface, External Ris In - 05/15/2019 11:36 PM SKOOG OPERATOR FINAL REPORT EXAM: CT head without contrast. CLINICAL HISTORY: Focal neuro deficit, n ew, fixed or worsening, <6 hours COMPARISON: Same-day brain MRI. TECHNIQUE: CT images of the head were ob tained without intravenous contrast. This exam was performed accor ding to our departmental dose optimization program which includes auto mated exposure control, adjustment of the mA and/or kV according to patient's size and/or use of iterative reconstructive technique. FINDINGS: There is mild generalized parenchymal at rophy. There are mild white matter microvascula r ischemic changes. There is intracranial calcific atherosclerosis. There is an 8 x 7 mm opacity in the inte rpeduncular fossa consistent with a basilar tip aneurysm. There is no acute intracranial hemorrhag e, extra-axial fluid collection, mass effect, herniation, hyd rocephalus or large demarcated acute territorial infarct. T he basal cisterns are patent. There are bilateral lens replacements. The visualized paranasal sinuses and tympanomastoid cavities are clear. The skull base and calvarium are intact. IMPRESSION: Mild white matter microvascular ischemic changes. No acute intracranial hemorrhage, mass e ffect or large demarcated acute territorial infarct. 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 Discussed with neurology resident at 11: 30 PM 05/15/2019. Signed: Fabiano Montoya MD Report Verified Date/Time: 05/15/2019 2 3:34:22 Performing Organization Address City/[facility]/Zipcode Phone Number [facility] Vitamin B12 and Folate (05/15/2019 6:09 AM SKOOG OPERATOR) Vitamin B12 472 213 - 816 pg/mL [facility] Folate 19.4 >=7.0 ng/mL [facility] Specimen Blood Narrative Performed At Professor Of Surgery ID - MALOU F [facility] Performing Organization Address City/[facility]/Zipcode Phone Number [facility] [address] [place] [address] CENTER Lipid panel (05/15/2019 6:09 AM SKOOG OPERATOR) Triglycerides 341 mg/dL [facility] Cholesterol 199 mg/dL [facility] HDL 41 mg/dL [facility] LDL Calculated 90 mg/dL [facility] Specimen Blood Narrative Performed At Triglyceride Reference Range: [facility] Low Risk <150 [id number] High Risk 200-499 Very High Risk>=500 Cholesterol Reference Range: Low Risk <200 [id number] High Risk>240 HDL Cholesterol Reference Range: Low Risk >=60 High Risk <40 LDL Cholesterol Reference Range: Optimal<100 Near [id number] Very High >=190 Professor Of Surgery ID - PIAYA L Performing Organization Address City/State/Zipcode Phone Number [address] [phone] [place] Hemoglobin A1c (05/15/2019 6:08 AM SKOOG OPERATOR) Hemoglobin A1C 5.8 4.3 - 6.1 % [facility] Specimen Blood Performing Organization Address City/[facility]/Zipcode Phone Number [address] [phone] [place] MR brain without IV contrast (05/15/2019 2:26 AM SKOOG OPERATOR) Specimen Narrative Performed At FINAL REPORT [employer] EXAM: MR, BRAIN, WITHOUT CONTRAST CLINICAL INDICATION:Neuro deficit. C oncern for stroke. TECHNIQUE: Sagittal and coronal T1-w and axial T2-FLAIR, GRE, fat-saturated T2-w, and diffusion-w imag es of the brain with ADC maps. COMPARISON: 03/22/2019 MRI/MRA FINDINGS: Parenchyma: There are a few punctate acu te infarctions on DWI in the posterior left le radiata. Remote barahona bcortical focal infarction of the left postcentral gyrus No hemorrhage . No mass or mass effect. Scattered foci of T2 hyperintensity are present in the cerebral white matter that are nonspecific but compatib le with mild chronic microvascular ischemic changes. Extra-axial Collection:None Ventricular System: No hydrocephalus. Major Intracranial Flow Voids: Preserved . A basilar tip aneurysm is present with diameter of 0.9 cm correlat ing to prior MRA. Osseous Structures:Expected marrow s ignal. Included Orbits: Prior bilateral lens barahona rgery Paranasal Sinuses:Predominantly douglas r Tympanomastoid Cavities:Normal IMPRESSION: 1. Few punctate acute infarctions in the posterior left le radiata. No hemorrhage or mass effect. 2. Remote subcortical infarction of the left postcentral gyrus and background mild chronic deep white matte r ischemic changes. 3. 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 Signed: Denise Rosario MD Report Verified Date/Time:05/15/2019 04:06:56 Procedure Note Interface, External Ris In - 05/15/2019 4:10 AM SKOOG OPERATOR FINAL REPORT EXAM: MR, BRAIN, WITHOUT CONTRAST CLINICAL INDICATION: Neuro deficit. Con cern for stroke. TECHNIQUE: Sagittal and coronal T1-w and axial T2-FLAIR, GRE, fat-saturated T2-w, and diffusion-w imag es of the brain with ADC maps. COMPARISON: 03/22/2019 MRI/MRA FINDINGS: Parenchyma: There are a few punctate acu te infarctions on DWI in the posterior left le radiata. Remote bar[place]ona bcortical focal infarction of the left postcentral gyrus No hemorrhage . No mass or mass effect. Scattered foci of T2 hyperintensity are present in the cerebral white matter that are nonspecific but compatib le with mild chronic microvascular ischemic changes. Extra-axial Collection: None Ventricular System: No hydrocephalus. Major Intracranial Flow Voids: Preserved . A basilar tip aneurysm is present with diameter of 0.9 cm correlat ing to prior MRA. Osseous Structures: Expected marrow sig nal. Included Orbits: Prior bilateral lens barahona rgery Paranasal Sinuses: Predominantly clear Tympanomastoid Cavities: Normal IMPRESSION: 1. Few punctate acute infarctions in the posterior left le radiata. No hemorrhage or mass effect. 2. Remote subcortical infarction of the left postcentral gyrus and background mild chronic deep white matte r ischemic changes. 3. 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 Signed: Denise Rosario MD Report Verified Date/Time: 05/15/2019 0 4:06:56 Performing Organization Address City/State/Zipcode Phone Number [employer] ECG 12 lead (03/31/2019 1:49 PM SKOOG OPERATOR) Specimen Narrative Performed At Ventricular Rate 65 BPM [place] MUSE Atrial Rate 65 BPM P-R Interval 138 ms QRS Duration 148 ms Q-T Interval 486 ms QTC Calculation(Bazett) 505 ms P [place] 81 degrees R [place] -41 degrees T [place] 36 degrees Normal sinus rhythm with sinus arrhythmi a Left anterior fascicular block Right bundle branch block Voltage criteria for left ventricular hy pertrophy Nonspecific ST abnormality Prolonged QT Abnormal ECG No previous ECGs available Confirmed by MD CRENSHAW YOCHAI ([id number]) on 04/03/2019 6:26:38 AM Procedure Note Interface, External Ris In - 04/03/2019 6:26 AM SKOOG OPERATOR Ventricular Rate 65 BPM Atrial Rate 65 BPM P-R Interval 138 ms QRS Duration 148 ms Q-T Interval 486 ms QTC Calculation(Bazett) 505 ms P [place] 81 degrees R [place] -41 degrees T [place] 36 degrees Normal sinus rhythm with sinus arrhythmi a Left anterior fascicular block Right bundle branch block Voltage criteria for left ventricular hy pertrophy Nonspecific ST abnormality Prolonged QT Abnormal ECG No previous ECGs available Confirmed by MD CRENSHAW YOCHAI ([id number]) on 04/03/2019 6:26:38 AM Performing Organization Address City/State/Zipcode Phone Number [facility] MUSE after 09/05/2018 Insurance Payer Benefit Plan / Group Subscriber ID Type Phone A ddress [employer] - MEDICARE MGD [employer] MEDICARE ADV xxxxxxxxx Maps Contracted CARE Advance Directives For more information, please contact:[address] [phone] Code Status Date Activated Date Inactivated Comments Full Code 05/14/2019 4:27 PM 05/29/2019 8:25 PM This code status was determined by: Patient
--- OUTSIDE RECORDS SUMMARY | 2019-09-06 22:12 | XMS REPORT ---
:1940 Author Organization [facility] Address [address] [place] [address] Care Team Providers Name Role Phone DEUCE CARRASCO Attending Clinician Unavailable DALE FLORES Attending Clinician Unavailable SHALONDA Admitting Clinician Unavailable DEUCE CARRASCO Admitting Clinician Unavailable Problems This patient has no known problems. Allergies, Adverse Reactions, Alerts This patient has no known allergies or adverse reactions. Medications This patient has no known medications. Procedures This patient has no known procedures. Results Test Description Test Time Test Comments Results Result Comments Source POCT-P2Y12 PLATELET AGGREGATION 2019-09-06 11:11:00 Test Item Value Reference Range Interpretation Comme nts POC-P2Y12 PLATELET AGG (BEAKER) (test code = 2303) 79 PRU RANGE INFORMATION: PRU reference range is 194-418. Post Drug Results: Lower PRU levels are associated with expected antiplatelet effect. Values may be below the stated reference range above. The post-drug PRU values reported in the [employer] P2Y12 package insert are 18-435.POCT-ASPIRIN PLATELET [id number] 11:08:00 Test Item Value Reference Range Interpretation Comments POC-ASPIRIN PLATELET AGG (BEAKER) 385 ARU (test code = 2302) RANGE INFORMATION: 350-549 ARU Therapeutic range for platelet function. 550-700 ARU Non-Therapeutic range for platelet function.BASIC METABOLIC [id number] 10:35:00 Test Item Value Reference Range Interpretation Comments SODIUM (BEAKER) 138 meq/L 136-145 (test code = 381) POTASSIUM (BEAKER) 5.4 meq/L 3.5-5.1 H Specimen slightly (test code = 379) hemolyzed CHLORIDE (BEAKER) 107 meq/L 98-107 (test code = 382) CO2 (BEAKER) (test 23 meq/L 22-29 code = 355) BLOOD UREA NITROGEN 60 mg/dL 7-21 H (BEAKER) (test code = 354) CREATININE (BEAKER) 2.09 mg/dL 0.57-1.25 H Specimen slightly (test code = 358) hemolyzed GLUCOSE RANDOM 108 mg/dL 70-105 H (BEAKER) (test code = 652) CALCIUM (BEAKER) 9.9 mg/dL 8.4-10.2 (test code = 697) EGFR (BEAKER) (test 23 mL/min/1.73 ESTIMA LYN GFR IS code = 1092) sq m NOT ACCURATE CREATININE CLEARANCE IN PREDICTING GLOMERULAR FILTRATION RATE . ESTIMATED GFR I S NOT APPLICABLE FOR DIALYSIS PATIEN TS. Alberene Stone Setter ID - MALOU FCBC W/PLT COUNT & AUTO [id number] 10:33:00 Test Item Value Reference Range Interpretation Comments WHITE BLOOD CELL COUNT (BEAKER) 14.6 K/ L 3.5-10.5 H (test code = 775) RED BLOOD CELL COUNT (BEAKER) 3.55 M/ L 3.93-5.22 L (test code = 761) HEMOGLOBIN (BEAKER) (test code = 10.5 GM/DL 11.2-15.7 L 410) HEMATOCRIT (BEAKER) (test code = 34.1 % 34.1-44.9 411) MEAN CORPUSCULAR VOLUME (BEAKER) 96.1 fL 79.4-94.8 H (test code = 753) MEAN CORPUSCULAR HEMOGLOBIN 29.6 pg 25.6-32.2 (BEAKER) (test code = 751) MEAN CORPUSCULAR HEMOGLOBIN CONC 30.8 GM/DL 32.2-35.5 L (BEAKER) (test code = 752) RED CELL DISTRIBUTION WIDTH 14.0 % 11.7-14.4 (BEAKER) (test code = 412) PLATELET COUNT (BEAKER) (test 280 K/CU MM 150-450 code = 756) MEAN PLATELET VOLUME (BEAKER) 11.0 fL 9.4-12.3 (test code = 754) NUCLEATED RED BLOOD CELLS 0 /100 WBC 0-0 (BEAKER) (test code = 413) NEUTROPHILS RELATIVE PERCENT 75 % (BEAKER) (test code = 429) LYMPHOCYTES RELATIVE PERCENT 14 % (BEAKER) (test code = 430) MONOCYTES RELATIVE PERCENT 6 % (BEAKER) (test code = 431) EOSINOPHILS RELATIVE PERCENT 4 % (BEAKER) (test code = 432) BASOPHILS RELATIVE PERCENT 0 % (BEAKER) (test code = 437) NEUTROPHILS ABSOLUTE COUNT 11.01 K/ L 1.56-6.13 H (BEAKER) (test code = 670) LYMPHOCYTES ABSOLUTE COUNT 1.99 K/ L 1.18-3.74 (BEAKER) (test code = 414) MONOCYTES ABSOLUTE COUNT (BEAKER) 0.92 K/ L 0.24-0.36 H (test code = 415) EOSINOPHILS ABSOLUTE COUNT 0.58 K/ L 0.04-0.36 H (BEAKER) (test code = 416) BASOPHILS ABSOLUTE COUNT (BEAKER) 0.04 K/ L 0.01-0.08 (test code = 417) IMMATURE GRANULOCYTES-RELATIVE 1 % 0-1 PERCENT (BEAKER) (test code = 2801) [id number] 10:12:00 Test Item Value Reference Range Interpretation Comments PROTIME (BEAKER) (test code = 12.8 seconds 11.9-14.2 759) INR (BEAKER) (test code = 370) 1.0 <=5.9 PARTIAL THROMBOPLASTIN TIME 25.6 seconds 22.5-36.0 (BEAKER) (test code = 760) Effective 09/07/2018: PT Reference Range ChangeNew: 11.9-14.2 Previous: 11.7- 14.7RECOMMENDED COUMADIN/WARFARIN INR THERAPY RANGESSTANDARD DOSE: 2.0-3.0 Includes: PROPHYLAXIS for venous thrombosis, systemic embolization; TREATMENT for venous thrombosis and/or pulmonary embolus.HIGH RISK: Target INR is2.5-3.5 for patients wiht mechanical heart valves.POCT-GLUCOSE [id number] 12:47:00 Test Item Value Reference Range Interpretation Comments POC-GLUCOSE METER 133 mg/dL 70-110 H : TESTED A T [facility] 6720 (BEAKER) (test code [facility], = 1538) [address]: Alberene Stone Setter/Techni gretel ID = [id number] for LIZ BRYAN POCT-GLUCOSE [id number] 07:59:00 Test Item Value Reference Range Interpretation Comments POC-GLUCOSE METER 125 mg/dL 70-110 H : TESTED A T [facility] 6720 (BEAKER) (test code [facility], = 1538) 17079: Alberene Stone Setter/Techni gretel ID = [id number] for TSEG GAI, TSIGHEREDA POCT-GLUCOSE [id number] 21:06:00 Test Item Value Reference Range Interpretation Comments POC-GLUCOSE METER 192 mg/dL 70-110 H : [facility] (test code = [facility], 1538) 66368: Alberene Stone Setter/Techni gretel ID = [id number] for DE NNIS, MALIHA POCT-GLUCOSE [id number] 17:33:00 Test Item Value Reference Range Interpretation Comments POC-GLUCOSE METER 124 mg/dL 70-110 H : [facility] (test code [facility], = 1538) 04810: Alberene Stone Setter/Techni gretel ID = [id number] for TSEG GAI, TSIGHEREDA POCT-GLUCOSE [id number] 11:50:00 Test Item Value Reference Range Interpretation Comments POC-GLUCOSE METER 102 mg/dL 70-110 : [facility] (test code [facility], = 1538) 87142: Alberene Stone Setter/Techni gretel ID = [id number] for TSEG GAI, TSIGHEREDA POCT-GLUCOSE [id number] 07:44:00 Test Item Value Reference Range Interpretation Comments POC-GLUCOSE METER 96 mg/dL 70-110 : [facility] (test code [facility], = 1538) 84518: Alberene Stone Setter/Techni gretel ID = [id number] for TSEG GAI, TSIGHEREDA POCT-GLUCOSE [id number] 22:28:00 Test Item Value Reference Range Interpretation Comments POC-GLUCOSE METER 201 mg/dL 70-110 H : Notified RN/MD: (BANNER) (test code = TESTED AT [facility] 6720 1538) [facility], [address]: Alberene Stone Setter/Techni grteel ID = [id number] for LATHBRIDGE, AMRITA ICE HEMOGLOBIN AND [id number] 11:01:00 Test Item Value Reference Range Interpretation Comments HEMOGLOBIN (BANNER) (test code = 9.3 GM/DL 11.2-15.7 L 410) HEMATOCRIT (BEAKER) (test code = 28.8 % 34.1-44.9 L 411) Alberene Stone Setter ID - [id number]-GLUCOSE [id number] 23:42:00 Test Item Value Reference Range Interpretation Comments POC-GLUCOSE METER 158 mg/dL 70-110 H : Notified RN/MD: (BEAKER) (test code = TESTED AT [facility] 6720 1538) [facility], [address]: Alberene Stone Setter/Techni gretel ID = [id number] for AMRITA RAYO ICE POCT-GLUCOSE [id number] 12:06:00 Test Item Value Reference Range Interpretation Comments POC-GLUCOSE METER 157 mg/dL 70-110 H : TESTED A T [facility] 6720 (BANNER) (test code [facility], = 1538) 66962: Alberene Stone Setter/Techni gretel ID = [id number] for LIZ BRYAN [id number] 06:57:00 Test Item Value Reference Range Interpretation Comments MAGNESIUM (BEAKER) (test code = 1.7 mg/dL 1.6-2.6 627) Alberene Stone Setter ID - KEARA WBASIC METABOLIC [id number] 06:57:00 Test Item Value Reference Range Interpretation Comments SODIUM (BEAKER) 141 meq/L 136-145 (test code = 381) POTASSIUM (BEAKER) 4.1 meq/L 3.5-5.1 (test code = 379) CHLORIDE (BEAKER) 110 meq/L 98-107 H (test code = 382) CO2 (BEAKER) (test 20 meq/L 22-29 L code = 355) BLOOD UREA NITROGEN 32 mg/dL 7-21 H (BEAKER) (test code = 354) CREATININE (BEAKER) 1.23 mg/dL 0.57-1.25 (test code = 358) GLUCOSE RANDOM 96 mg/dL 70-105 (BEAKER) (test code = 652) CALCIUM (BEAKER) 9.7 mg/dL 8.4-10.2 (test code = 697) EGFR (BEAKER) (test 42 mL/min/1.73 ESTIMA LYN GFR IS code = 1092) sq m NOT ACCURATE CREATININE CLEARANCE IN PREDICTING GLOMERULAR FILTRATION RATE . ESTIMATED GFR I S NOT APPLICABLE FOR DIALYSIS PATIEN TS. Alberene Stone Setter ID - KEARA WHEMOGLOBIN AND [id number] 05:42:00 Test Item Value Reference Range Interpretation Comments HEMOGLOBIN (BEAKER) (test code = 8.3 GM/DL 11.2-15.7 L 410) HEMATOCRIT (BEAKER) (test code = 26.4 % 34.1-44.9 L 411) Alberene Stone Setter ID - [id number]-GLUCOSE [id number] 22:26:00 Test Item Value Reference Range Interpretation Comments POC-GLUCOSE METER 137 mg/dL 70-110 H : TESTED A T [facility] 6720 (BEAKER) (test code = [facility], 1538) 827[address]: Alberene Stone Setter/Techni gretel ID = [id number] for MALLORY GRAHAM RAD, CHEST, 1 VIEW, NON [id number] 21:41:00Reason for exam:->shortness of breath, coughShould this [...] are unremarkable. Signed: Karely Davis Verified Date/Time: 05/25/2019 21:41:23 POCT-GLUCOSE [id number] 16:37:00 Test Item Value Reference Range Interpretation Comments POC-GLUCOSE METER 217 mg/dL 70-110 H : TESTED A T [facility] 6720 (BEAKER) (test code = [facility], 1538) 84354: Alberene Stone Setter/Techni gretel ID = [id number] for RO DGERS, JAMECA POCT-GLUCOSE [id number] 13:05:00 Test Item Value Reference Range Interpretation Comments POC-GLUCOSE METER 196 mg/dL 70-110 H : TESTED A T [facility] 6720 (BEAKER) (test code = [facility], 1538) 05863: Alberene Stone Setter/Techni gretel ID = [id number] for RO DGERS, JAMECA POCT-GLUCOSE [id number] 08:49:00 Test Item Value Reference Range Interpretation Comments POC-GLUCOSE METER 95 mg/dL 70-110 : TESTED A T [facility] 6720 (BEAKER) (test code = [facility], 153) 80362: Alberene Stone Setter/Techni gretel ID = [id number] for NITA PORTER HEMOGLOBIN AND [id number] 05:24:00 Test Item Value Reference Range Interpretation Comments HEMOGLOBIN (BEAKER) (test code = 8.4 GM/DL 11.2-15.7 L 410) HEMATOCRIT (BEAKER) (test code = 27.0 % 34.1-44.9 L 411) Alberene Stone Setter ID - [id number]-GLUCOSE [id number] 22:08:00 Test Item Value Reference Range Interpretation Comments POC-GLUCOSE METER 164 mg/dL 70-110 H : TESTED A T [facility] 6720 (BEAKER) (test code = [facility], 1538) 63120: Alberene Stone Setter/Techni gretel ID = [id number] for MALLORY GRAHAM POCT-GLUCOSE [id number] 12:57:00 Test Item Value Reference Range Interpretation Comments POC-GLUCOSE METER 156 mg/dL 70-110 H : TESTED A T [facility] 6720 (BEAKER) (test code = [facility], 1538) 93223: Alberene Stone Setter/Techni gretel ID = [id number] for NITA GARNGER POCT-GLUCOSE [id number] 08:38:00 Test Item Value Reference Range Interpretation Comments POC-GLUCOSE METER 102 mg/dL 70-110 : TESTED A T [facility] 6720 (BEAKER) (test code = [facility], 1538) 26660: Alberene Stone Setter/Techni gretel ID = [id number] for RO DGERS, ROGERIOECA BASIC METABOLIC [id number] 06:30:00 Test Item Value Reference Range Interpretation Comments SODIUM (BEAKER) 141 meq/L 136-145 (test code = 381) POTASSIUM (BEAKER) 3.5 meq/L 3.5-5.1 (test code = 379) CHLORIDE (BEAKER) 114 meq/L 98-107 H (test code = 382) CO2 (BEAKER) (test 19 meq/L 22-29 L code = 355) BLOOD UREA NITROGEN 22 mg/dL 7-21 H (BEAKER) (test code = 354) CREATININE (BEAKER) 1.03 mg/dL 0.57-1.25 (test code = 358) GLUCOSE RANDOM 104 mg/dL 70-105 (BEAKER) (test code = 652) CALCIUM (BEAKER) 9.3 mg/dL 8.4-10.2 (test code = 697) EGFR (BEAKER) (test 52 mL/min/1.73 ESTIMA LYN GFR IS code = 1092) sq m NOT ACCURATE CREATININE CLEARANCE IN PREDICTING GLOMERULAR FILTRATION RATE . ESTIMATED GFR I S NOT APPLICABLE FOR DIALYSIS PATIEN TS. Alberene Stone Setter ID - [id number] (HEMOGRAM ONLY)2019-05-24 05:51:00 Test Item Value Reference Range Interpretation Comments WHITE BLOOD CELL COUNT (BEAKER) 11.1 K/ L 3.5-10.5 H (test code = 775) RED BLOOD CELL COUNT (BEAKER) 2.67 M/ L 3.93-5.22 L (test code = 761) HEMOGLOBIN (BEAKER) (test code = 7.8 GM/DL 11.2-15.7 L 410) HEMATOCRIT (BEAKER) (test code = 24.6 % 34.1-44.9 L 411) MEAN CORPUSCULAR VOLUME (BEAKER) 92.1 fL 79.4-94.8 (test code = 753) MEAN CORPUSCULAR HEMOGLOBIN 29.2 pg 25.6-32.2 (BEAKER) (test code = 751) MEAN CORPUSCULAR HEMOGLOBIN CONC 31.7 GM/DL 32.2-35.5 L (BEAKER) (test code = 752) RED CELL DISTRIBUTION WIDTH 14.1 % 11.7-14.4 (BEAKER) (test code = 412) PLATELET COUNT (BEAKER) (test 283 K/CU MM 150-450 code = 756) MEAN PLATELET VOLUME (BEAKER) 11.1 fL 9.4-12.3 (test code = 754) NUCLEATED RED BLOOD CELLS 0 /100 WBC 0-0 (BEAKER) (test code = 413) POCT-GLUCOSE [id number] 18:38:00 Test Item Value Reference Range Interpretation Comments POC-GLUCOSE METER 243 mg/dL 70-110 H : Notified RN/MD: (BEAKER) (test code = TESTED AT [facility] 0621 4337) [place], [address]: Alberene Stone Setter/Techni gretel ID = [id number] for Keiry Owens BASIC METABOLIC [id number] 06:25:00 Test Item Value Reference Range Interpretation Comments SODIUM (BEAKER) 139 meq/L 136-145 (test code = 381) POTASSIUM (BEAKER) 3.9 meq/L 3.5-5.1 (test code = 379) CHLORIDE (BEAKER) 114 meq/L 98-107 H (test code = 382) CO2 (BEAKER) (test 19 meq/L 22-29 L code = 355) BLOOD UREA NITROGEN 29 mg/dL 7-21 H (BEAKER) (test code = 354) CREATININE (BEAKER) 1.18 mg/dL 0.57-1.25 (test code = 358) GLUCOSE RANDOM 124 mg/dL 70-105 H (BEAKER) (test code = 652) CALCIUM (BEAKER) 9.1 mg/dL 8.4-10.2 (test code = 697) EGFR (BEAKER) (test 44 mL/min/1.73 ESTIMA LYN GFR IS code = 1092) sq m NOT ACCURATE CREATININE CLEARANCE IN PREDICTING GLOMERULAR FILTRATION RATE . ESTIMATED GFR I S NOT APPLICABLE FOR DIALYSIS PATIEN TS. Alberene Stone Setter ID - [id number] (HEMOGRAM ONLY)2019-05-23 05:56:00 Test Item Value Reference Range Interpretation Comments WHITE BLOOD CELL COUNT (BEAKER) 10.9 K/ L 3.5-10.5 H (test code = 775) RED BLOOD CELL COUNT (BEAKER) 2.78 M/ L 3.93-5.22 L (test code = 761) HEMOGLOBIN (BEAKER) (test code = 7.9 GM/DL 11.2-15.7 L 410) HEMATOCRIT (BEAKER) (test code = 25.8 % 34.1-44.9 L 411) MEAN CORPUSCULAR VOLUME (BEAKER) 92.8 fL 79.4-94.8 (test code = 753) MEAN CORPUSCULAR HEMOGLOBIN 28.4 pg 25.6-32.2 (BEAKER) (test code = 751) MEAN CORPUSCULAR HEMOGLOBIN CONC 30.6 GM/DL 32.2-35.5 L (BEAKER) (test code = 752) RED CELL DISTRIBUTION WIDTH 14.3 % 11.7-14.4 (BEAKER) (test code = 412) PLATELET COUNT (BEAKER) (test 258 K/CU MM 150-450 code = 756) MEAN PLATELET VOLUME (BEAKER) 11.3 fL 9.4-12.3 (test code = 754) NUCLEATED RED BLOOD CELLS 0 /100 WBC 0-0 (BEAKER) (test code = 413) POCT-GLUCOSE [id number] 00:29:00 Test Item Value Reference Range Interpretation Comments POC-GLUCOSE METER 126 mg/dL 70-110 H : TESTED A T [facility] 6720 (BEAKER) (test code = [place], 1538) [address]: Alberene Stone Setter/Techni gretel ID = [id number] for MASON PHELPS CBC W/PLT COUNT & AUTO [id number] 06:36:00 Test Item Value Reference Range Interpretation Comments WHITE BLOOD CELL COUNT (BEAKER) 10.4 K/ L 3.5-10.5 (test code = 775) RED BLOOD CELL COUNT (BEAKER) 2.27 M/ L 3.93-5.22 L (test code = 761) HEMOGLOBIN (BEAKER) (test code = 6.8 GM/DL 11.2-15.7 L 410) HEMATOCRIT (BEAKER) (test code = 21.3 % 34.1-44.9 L 411) MEAN CORPUSCULAR VOLUME (BEAKER) 93.8 fL 79.4-94.8 (test code = 753) MEAN CORPUSCULAR HEMOGLOBIN 30.0 pg 25.6-32.2 (BEAKER) (test code = 751) MEAN CORPUSCULAR HEMOGLOBIN CONC 31.9 GM/DL 32.2-35.5 L (BEAKER) (test code = 752) RED CELL DISTRIBUTION WIDTH 14.4 % 11.7-14.4 (BEAKER) (test code = 412) PLATELET COUNT (BEAKER) (test 197 K/CU MM 150-450 code = 756) MEAN PLATELET VOLUME (BEAKER) 11.6 fL 9.4-12.3 (test code = 754) NUCLEATED RED BLOOD CELLS 0 /100 WBC 0-0 (BEAKER) (test code = 413) NEUTROPHILS RELATIVE PERCENT 71 % (BEAKER) (test code = 429) LYMPHOCYTES RELATIVE PERCENT 13 % (BEAKER) (test code = 430) MONOCYTES RELATIVE PERCENT 11 % (BEAKER) (test code = 431) EOSINOPHILS RELATIVE PERCENT 4 % (BEAKER) (test code = 432) BASOPHILS RELATIVE PERCENT 0 % (BEAKER) (test code = 437) NEUTROPHILS ABSOLUTE COUNT 7.36 K/ L 1.56-6.13 H (BEAKER) (test code = 670) LYMPHOCYTES ABSOLUTE COUNT 1.31 K/ L 1.18-3.74 (BEAKER) (test code = 414) MONOCYTES ABSOLUTE COUNT (BEAKER) 1.13 K/ L 0.24-0.36 H (test code = 415) EOSINOPHILS ABSOLUTE COUNT 0.44 K/ L 0.04-0.36 H (BEAKER) (test code = 416) BASOPHILS ABSOLUTE COUNT (BEAKER) 0.03 K/ L 0.01-0.08 (test code = 417) IMMATURE GRANULOCYTES-RELATIVE 1 % 0-1 PERCENT (BEAKER) (test code = 2801) POCT-GLUCOSE [id number] 06:11:00 Test Item Value Reference Range Interpretation Comments POC-GLUCOSE METER 111 mg/dL 70-110 H : TESTED A T [place] [address] (BANNER) (test code = [facility], 1538) [address]: Alberene Stone Setter/Techni gretel ID = [id number] for RAFAEL CARBAJAL POCT-GLUCOSE [id number] 18:56:00 Test Item Value Reference Range Interpretation Comments POC-GLUCOSE METER 137 mg/dL 70-110 H : Notified RN/MD: (BANNER) (test code = TESTED AT [place] [id number] 1538) [facility], [address]: Alberene Stone Setter/Techni gretel ID = [id number] for DANDY ESTRADA [id number] 13:58:00 Test Item Value Reference Range Interpretation Comments POTASSIUM (BEAKER) (test code = 3.9 meq/L 3.5-5.1 379) Alberene Stone Setter ID Ross WESTFALL [id number] 13:58:00 Test Item Value Reference Range Interpretation Comments MAGNESIUM (BEAKER) (test code = 1.8 mg/dL 1.6-2.6 627) Alberene Stone Setter ID - MALOU FCBC (HEMOGRAM ONLY)2019-05-21 13:41:00 Test Item Value Reference Range Interpretation Comments WHITE BLOOD CELL COUNT (BEAKER) 13.4 K/ L 3.5-10.5 H (test code = 775) RED BLOOD CELL COUNT (BEAKER) 2.40 M/ L 3.93-5.22 L (test code = 761) HEMOGLOBIN (BEAKER) (test code = 7.2 GM/DL 11.2-15.7 L 410) HEMATOCRIT (BEAKER) (test code = 22.3 % 34.1-44.9 L 411) MEAN CORPUSCULAR VOLUME (BEAKER) 92.9 fL 79.4-94.8 (test code = 753) MEAN CORPUSCULAR HEMOGLOBIN 30.0 pg 25.6-32.2 (BEAKER) (test code = 751) MEAN CORPUSCULAR HEMOGLOBIN CONC 32.3 GM/DL 32.2-35.5 (BEAKER) (test code = 752) RED CELL DISTRIBUTION WIDTH 14.6 % 11.7-14.4 H (BEAKER) (test code = 412) PLATELET COUNT (BEAKER) (test 189 K/CU MM 150-450 code = 756) MEAN PLATELET VOLUME (BEAKER) 11.2 fL 9.4-12.3 (test code = 754) NUCLEATED RED BLOOD CELLS 0 /100 WBC 0-0 (BEAKER) (test code = 413) POCT-GLUCOSE [id number] 13:11:00 Test Item Value Reference Range Interpretation Comments POC-GLUCOSE METER 164 mg/dL 70-110 H : Notified RN/MD: (BEAKER) (test code = TESTED AT [facility] 1129 0134) [facility], [address]: Alberene Stone Setter/Techni gretel ID = [id number] for DANDY ESTRADA URIC [id number] 10:43:00 Test Item Value Reference Range Interpretation Comments URIC ACID (BEAKER) (test code = 5.7 mg/dL 2.6-7.2 773) Alberene Stone Setter ID - MALOU FBASIC METABOLIC [id number] 06:40:00 Test Item Value Reference Range Interpretation Comments SODIUM (BEAKER) 139 meq/L 136-145 (test code = 381) POTASSIUM (BEAKER) 3.7 meq/L 3.5-5.1 (test code = 379) CHLORIDE (BEAKER) 114 meq/L 98-107 H (test code = 382) CO2 (BEAKER) (test 20 meq/L 22-29 L code = 355) BLOOD UREA NITROGEN 28 mg/dL 7-21 H (BEAKER) (test code = 354) CREATININE (BEAKER) 1.19 mg/dL 0.57-1.25 (test code = 358) GLUCOSE RANDOM 143 mg/dL 70-105 H (BEAKER) (test code = 652) CALCIUM (BEAKER) 8.6 mg/dL 8.4-10.2 (test code = 697) EGFR (BEAKER) (test 44 mL/min/1.73 ESTIMA LYN GFR IS code = 1092) sq m NOT ACCURATE CREATININE CLEARANCE IN PREDICTING GLOMERULAR FILTRATION RATE . ESTIMATED GFR I S NOT APPLICABLE FOR DIALYSIS PATIEN TS. Alberene Stone Setter ID - KEARA WPOCT-GLUCOSE [id number] 06:37:00 Test Item Value Reference Range Interpretation Comments POC-GLUCOSE METER 156 mg/dL 70-110 H : TESTED A T [facility] 6720 (BEAKER) (test code = HUM[facility]ERTO [place] [facility], 1538) [address]: Alberene Stone Setter/Techni gretel ID = [id number] for VA RELA, RAJ CBC (HEMOGRAM ONLY)2019-05-21 06:20:00 Test Item Value Reference Range Interpretation Comments WHITE BLOOD CELL COUNT (BEAKER) 13.5 K/ L 3.5-10.5 H (test code = 775) RED BLOOD CELL COUNT (BEAKER) 2.41 M/ L 3.93-5.22 L (test code = 761) HEMOGLOBIN (BEAKER) (test code = 7.1 GM/DL 11.2-15.7 L 410) HEMATOCRIT (BEAKER) (test code = 22.4 % 34.1-44.9 L 411) MEAN CORPUSCULAR VOLUME (BEAKER) 92.9 fL 79.4-94.8 (test code = 753) MEAN CORPUSCULAR HEMOGLOBIN 29.5 pg 25.6-32.2 (BEAKER) (test code = 751) MEAN CORPUSCULAR HEMOGLOBIN CONC 31.7 GM/DL 32.2-35.5 L (BEAKER) (test code = 752) RED CELL DISTRIBUTION WIDTH 14.5 % 11.7-14.4 H (BEAKER) (test code = 412) PLATELET COUNT (BEAKER) (test 201 K/CU MM 150-450 code = 756) MEAN PLATELET VOLUME (BEAKER) 11.4 fL 9.4-12.3 (test code = 754) NUCLEATED RED BLOOD CELLS 0 /100 WBC 0-0 (BEAKER) (test code = 413) CBC (HEMOGRAM ONLY)2019-05-21 00:54:00 Test Item Value Reference Range Interpretation Comments WHITE BLOOD CELL COUNT (BEAKER) 12.6 K/ L 3.5-10.5 H (test code = 775) RED BLOOD CELL COUNT (BEAKER) 2.37 M/ L 3.93-5.22 L (test code = 761) HEMOGLOBIN (BEAKER) (test code = 7.1 GM/DL 11.2-15.7 L 410) HEMATOCRIT (BEAKER) (test code = 22.3 % 34.1-44.9 L 411) MEAN CORPUSCULAR VOLUME (BEAKER) 94.1 fL 79.4-94.8 (test code = 753) MEAN CORPUSCULAR HEMOGLOBIN 30.0 pg 25.6-32.2 (BEAKER) (test code = 751) MEAN CORPUSCULAR HEMOGLOBIN CONC 31.8 GM/DL 32.2-35.5 L (BEAKER) (test code = 752) RED CELL DISTRIBUTION WIDTH 14.6 % 11.7-14.4 H (BEAKER) (test code = 412) PLATELET COUNT (BEAKER) (test 171 K/CU MM 150-450 code = 756) MEAN PLATELET VOLUME (BEAKER) 11.4 fL 9.4-12.3 (test code = 754) NUCLEATED RED BLOOD CELLS 0 /100 WBC 0-0 (BEAKER) (test code = 413) POCT-GLUCOSE [id number] 00:42:00 Test Item Value Reference Range Interpretation Comments POC-GLUCOSE METER 155 mg/dL 70-110 H : TESTED A T [facility] 6720 (BEAKER) (test code = [place], 1538) [address]: Alberene Stone Setter/Techni gretel ID = [id number] for RAJ YANG [id number] 19:49:00 Test Item Value Reference Range Interpretation Comments FERRITIN (BEAKER) (test code = 361) 29 ng/mL 5-275 Alberene Stone Setter ID - TERRI [id number] 18:51:00 Test Item Value Reference Range Interpretation Comments TRANSFERRIN (BEAKER) (test code = 211 mg/dL 174-382 541) Alberene Stone Setter ID - TERRI HENRY, TIBC, % SAT. (WITHOUT FERRITIN)2019-05-20 18:51:00 Test Item Value Reference Range Interpretation Comments IRON (BEAKER) (test code = 547) 14.0 ug/dL 40.0-160.0 L TOTAL IRON BINDING CAPACITY 264 ug/dL 250-450 (BEAKER) (test code = 769) IRON % SATURATION (2) (BEAKER) 5 % 20-55 L (test code = 2590) Alberene Stone Setter ID - TERRI MRAD, ANKLE, 1 VIEW, [id number] 18:09:00Reason for exam:- >left ankle painShould this be performed at the bedside?->YesFINAL REPORT TECHNIQUE: Two views of left ankle HISTORY: left ankle pain. COMPARISON: None. IMPRESSION:No acute displaced fracture or dislocation. Joint spaces are within normal limits.Minimal Achilles enthesopathy. Large plantar calcaneal spur and enthesopathy. Signed: Steven Lyman MDReport Verified Date/Time: 05/20/2019 18:09:20 Reading Location: [address] Consult Reading Room CBC (HEMOGRAM ONLY)2019-05-20 17:58:00 Test Item Value Reference Range Interpretation Comments WHITE BLOOD CELL COUNT (BEAKER) 14.2 K/ L 3.5-10.5 H (test code = 775) RED BLOOD CELL COUNT (BEAKER) 2.62 M/ L 3.93-5.22 L (test code = 761) HEMOGLOBIN (BEAKER) (test code = 7.8 GM/DL 11.2-15.7 L 410) HEMATOCRIT (BEAKER) (test code = 24.0 % 34.1-44.9 L 411) MEAN CORPUSCULAR VOLUME (BEAKER) 91.6 fL 79.4-94.8 (test code = 753) MEAN CORPUSCULAR HEMOGLOBIN 29.8 pg 25.6-32.2 (BEAKER) (test code = 751) MEAN CORPUSCULAR HEMOGLOBIN CONC 32.5 GM/DL 32.2-35.5 (BEAKER) (test code = 752) RED CELL DISTRIBUTION WIDTH 14.6 % 11.7-14.4 H (BEAKER) (test code = 412) PLATELET COUNT (BEAKER) (test 196 K/CU MM 150-450 code = 756) MEAN PLATELET VOLUME (BEAKER) 11.4 fL 9.4-12.3 (test code = 754) NUCLEATED RED BLOOD CELLS 0 /100 WBC 0-0 (BEAKER) (test code = 413) [id number] 05:29:00 Test Item Value Reference Range Interpretation Comments MAGNESIUM (BEAKER) 1.9 mg/dL 1.6-2.6 Specimen slightly (test code = 627) hemolyzed Alberene Stone Setter ID - TERRI [id number] 05:29:00 Test Item Value Reference Range Interpretation Comments PHOSPHORUS (BEAKER) 3.3 mg/dL 2.3-4.7 Specimen slightly (test code = 604) hemolyzed Alberene Stone Setter ID - TERRI MBASIC METABOLIC [id number] 05:29:00 Test Item Value Reference Range Interpretation Comments SODIUM (BEAKER) 139 meq/L 136-145 (test code = 381) POTASSIUM (BEAKER) 3.8 meq/L 3.5-5.1 Specimen slightly (test code = 379) hemolyzed CHLORIDE (BEAKER) 115 meq/L 98-107 H (test code = 382) CO2 (BEAKER) (test 18 meq/L 22-29 L code = 355) BLOOD UREA NITROGEN 26 mg/dL 7-21 H (BEAKER) (test code = 354) CREATININE (BEAKER) 1.04 mg/dL 0.57-1.25 Specimen slightly (test code = 358) hemolyzed GLUCOSE RANDOM 96 mg/dL 70-105 (BEAKER) (test code = 652) CALCIUM (BEAKER) 8.6 mg/dL 8.4-10.2 (test code = 697) EGFR (BEAKER) (test 51 mL/min/1.73 ESTIMA LYN GFR IS code = 1092) sq m NOT ACCURATE CREATININE CLEARANCE IN PREDICTING GLOMERULAR FILTRATION RATE . ESTIMATED GFR I S NOT APPLICABLE FOR DIALYSIS PATIEN TS. Alberene Stone Setter ID - TERRI MCBC (HEMOGRAM ONLY)2019-05-20 04:51:00 Test Item Value Reference Range Interpretation Comments WHITE BLOOD CELL COUNT (BEAKER) 13.5 K/ L 3.5-10.5 H (test code = 775) RED BLOOD CELL COUNT (BEAKER) 2.72 M/ L 3.93-5.22 L (test code = 761) HEMOGLOBIN (BEAKER) (test code = 7.8 GM/DL 11.2-15.7 L 410) HEMATOCRIT (BEAKER) (test code = 25.3 % 34.1-44.9 L 411) MEAN CORPUSCULAR VOLUME (BEAKER) 93.0 fL 79.4-94.8 (test code = 753) MEAN CORPUSCULAR HEMOGLOBIN 28.7 pg 25.6-32.2 (BEAKER) (test code = 751) MEAN CORPUSCULAR HEMOGLOBIN CONC 30.8 GM/DL 32.2-35.5 L (BEAKER) (test code = 752) RED CELL DISTRIBUTION WIDTH 14.8 % 11.7-14.4 H (BEAKER) (test code = 412) PLATELET COUNT (BEAKER) (test 181 K/CU MM 150-450 code = 756) MEAN PLATELET VOLUME (BEAKER) 11.5 fL 9.4-12.3 (test code = 754) NUCLEATED RED BLOOD CELLS 0 /100 WBC 0-0 (BEAKER) (test code = 413) CBC (HEMOGRAM ONLY)2019-05-20 00:36:00 Test Item Value Reference Range Interpretation Comments WHITE BLOOD CELL COUNT (BEAKER) 13.3 K/ L 3.5-10.5 H (test code = 775) RED BLOOD CELL COUNT (BEAKER) 2.72 M/ L 3.93-5.22 L (test code = 761) HEMOGLOBIN (BEAKER) (test code = 8.1 GM/DL 11.2-15.7 L 410) HEMATOCRIT (BEAKER) (test code = 25.3 % 34.1-44.9 L 411) MEAN CORPUSCULAR VOLUME (BEAKER) 93.0 fL 79.4-94.8 (test code = 753) MEAN CORPUSCULAR HEMOGLOBIN 29.8 pg 25.6-32.2 (BEAKER) (test code = 751) MEAN CORPUSCULAR HEMOGLOBIN CONC 32.0 GM/DL 32.2-35.5 L (BEAKER) (test code = 752) RED CELL DISTRIBUTION WIDTH 14.8 % 11.7-14.4 H (BEAKER) (test code = 412) PLATELET COUNT (BEAKER) (test 193 K/CU MM 150-450 code = 756) MEAN PLATELET VOLUME (BEAKER) 11.6 fL 9.4-12.3 (test code = 754) NUCLEATED RED BLOOD CELLS 0 /100 WBC 0-0 (BEAKER) (test code = 413) POCT-GLUCOSE [id number] 18:36:00 Test Item Value Reference Range Interpretation Comments POC-GLUCOSE METER 101 mg/dL 70-110 : TESTED A T [facility] 6720 (BEAKER) (test code = [place], 1538) [address]: Alberene Stone Setter/Techni gretel ID = [id number] for DANDY WINSTON CBC (HEMOGRAM ONLY)2019-05-19 18:33:00 Test Item Value Reference Range Interpretation Comments WHITE BLOOD CELL COUNT (BEAKER) 12.7 K/ L 3.5-10.5 H (test code = 775) RED BLOOD CELL COUNT (BEAKER) 2.69 M/ L 3.93-5.22 L (test code = 761) HEMOGLOBIN (BEAKER) (test code = 8.0 GM/DL 11.2-15.7 L 410) HEMATOCRIT (BEAKER) (test code = 25.0 % 34.1-44.9 L 411) MEAN CORPUSCULAR VOLUME (BEAKER) 92.9 fL 79.4-94.8 (test code = 753) MEAN CORPUSCULAR HEMOGLOBIN 29.7 pg 25.6-32.2 (BEAKER) (test code = 751) MEAN CORPUSCULAR HEMOGLOBIN CONC 32.0 GM/DL 32.2-35.5 L (BEAKER) (test code = 752) RED CELL DISTRIBUTION WIDTH 14.5 % 11.7-14.4 H (BEAKER) (test code = 412) PLATELET COUNT (BEAKER) (test 168 K/CU MM 150-450 code = 756) MEAN PLATELET VOLUME (BEAKER) 11.1 fL 9.4-12.3 (test code = 754) NUCLEATED RED BLOOD CELLS 0 /100 WBC 0-0 (BEAKER) (test code = 413) CBC (HEMOGRAM ONLY)2019-05-19 12:46:00 Test Item Value Reference Range Interpretation Comments WHITE BLOOD CELL COUNT (BEAKER) 14.2 K/ L 3.5-10.5 H (test code = 775) RED BLOOD CELL COUNT (BEAKER) 2.36 M/ L 3.93-5.22 L (test code = 761) HEMOGLOBIN (BEAKER) (test code = 6.9 GM/DL 11.2-15.7 L 410) HEMATOCRIT (BEAKER) (test code = 22.6 % 34.1-44.9 L 411) MEAN CORPUSCULAR VOLUME (BEAKER) 95.8 fL 79.4-94.8 H (test code = 753) MEAN CORPUSCULAR HEMOGLOBIN 29.2 pg 25.6-32.2 (BEAKER) (test code = 751) MEAN CORPUSCULAR HEMOGLOBIN CONC 30.5 GM/DL 32.2-35.5 L (BEAKER) (test code = 752) RED CELL DISTRIBUTION WIDTH 14.4 % 11.7-14.4 (BEAKER) (test code = 412) PLATELET COUNT (BEAKER) (test 182 K/CU MM 150-450 code = 756) MEAN PLATELET VOLUME (BEAKER) 11.2 fL 9.4-12.3 (test code = 754) NUCLEATED RED BLOOD CELLS 0 /100 WBC 0-0 (BEAKER) (test code = 413) POCT-GLUCOSE [id number] 12:30:00 Test Item Value Reference Range Interpretation Comments POC-GLUCOSE METER 130 mg/dL 70-110 H : TESTED A T [facility] 6720 (BEAKER) (test code = [place], 1538) [address]: Alberene Stone Setter/Techni gretel ID = [id number] for DANDY ESTRADA [id number] 08:02:00 Test Item Value Reference Range Interpretation Comments PHOSPHORUS (BEAKER) (test code = 2.5 mg/dL 2.3-4.7 604) Alberene Stone Setter ID - TERRI [id number] 08:02:00 Test Item Value Reference Range Interpretation Comments MAGNESIUM (BEAKER) (test code = 1.6 mg/dL 1.6-2.6 627) Alberene Stone Setter ID - TERRI MBASIC METABOLIC [id number] 08:02:00 Test Item Value Reference Range Interpretation Comments SODIUM (BEAKER) 140 meq/L 136-145 (test code = 381) POTASSIUM (BEAKER) 4.1 meq/L 3.5-5.1 (test code = 379) CHLORIDE (BEAKER) 117 meq/L 98-107 H (test code = 382) CO2 (BEAKER) (test 18 meq/L 22-29 L code = 355) BLOOD UREA NITROGEN 30 mg/dL 7-21 H (BEAKER) (test code = 354) CREATININE (BEAKER) 1.03 mg/dL 0.57-1.25 (test code = 358) GLUCOSE RANDOM 123 mg/dL 70-105 H (BEAKER) (test code = 652) CALCIUM (BEAKER) 8.4 mg/dL 8.4-10.2 (test code = 697) EGFR (BEAKER) (test 52 mL/min/1.73 ESTIMA LYN GFR IS code = 1092) sq m NOT ACCURATE CREATININE CLEARANCE IN PREDICTING GLOMERULAR FILTRATION RATE . ESTIMATED GFR I S NOT APPLICABLE FOR DIALYSIS PATIEN TS. Alberene Stone Setter ID - TERRI [id number] 07:40:00 Test Item Value Reference Range Interpretation Comments FIBRINOGEN LEVEL (BEAKER) (test 489 mg/dl 225-434 H code = 658) [id number] 07:40:00 Test Item Value Reference Range Interpretation Comments PROTIME (BEAKER) (test code = 18.7 seconds 11.9-14.2 H 759) INR (BEAKER) (test code = 370) 1.6 <=5.9 PARTIAL THROMBOPLASTIN TIME 30.0 seconds 22.5-36.0 (BEAKER) (test code = 760) Effective 09/07/2018: PT Reference Range ChangeNew: 11.9-14.2 Previous: 11.7- 14.7RECOMMENDED COUMADIN/WARFARIN INR THERAPY RANGESSTANDARD DOSE: 2.0-3.0 Includes: PROPHYLAXIS for venous thrombosis, systemic embolization; TREATMENT for venous thrombosis and/or pulmonary embolus.HIGH RISK: Target INR is2.5-3.5 for patients wiht mechanical heart valves.CBC (HEMOGRAM ONLY)2019-05-19 06:13:00 Test Item Value Reference Range Interpretation Comments WHITE BLOOD CELL COUNT (BEAKER) 14.8 K/ L 3.5-10.5 H (test code = 775) RED BLOOD CELL COUNT (BEAKER) 2.57 M/ L 3.93-5.22 L (test code = 761) HEMOGLOBIN (BEAKER) (test code = 7.5 GM/DL 11.2-15.7 L 410) HEMATOCRIT (BEAKER) (test code = 24.7 % 34.1-44.9 L 411) MEAN CORPUSCULAR VOLUME (BEAKER) 96.1 fL 79.4-94.8 H (test code = 753) MEAN CORPUSCULAR HEMOGLOBIN 29.2 pg 25.6-32.2 (BEAKER) (test code = 751) MEAN CORPUSCULAR HEMOGLOBIN CONC 30.4 GM/DL 32.2-35.5 L (BEAKER) (test code = 752) RED CELL DISTRIBUTION WIDTH 14.5 % 11.7-14.4 H (BEAKER) (test code = 412) PLATELET COUNT (BEAKER) (test 236 K/CU MM 150-450 code = 756) MEAN PLATELET VOLUME (BEAKER) 11.5 fL 9.4-12.3 (test code = 754) NUCLEATED RED BLOOD CELLS 0 /100 WBC 0-0 (BEAKER) (test code = 413) POCT-GLUCOSE [id number] 00:26:00 Test Item Value Reference Range Interpretation Comments POC-GLUCOSE METER 110 mg/dL 70-110 : [facility]: [facility] (test code = TESTED AT [place] [address] 1538) [facility], [address]: Alberene Stone Setter/Techni gretel ID = [id number] for CHRIS PEREZ POCT-GLUCOSE [id number] 18:22:00 Test Item Value Reference Range Interpretation Comments POC-GLUCOSE METER 127 mg/dL 70-110 H : TESTED A T [place] [address] ([place]) (test code = [facility], 153) [address]: Alberene Stone Setter/Techni gretel ID = [id number] for RADHA DE LOS SANTOS POCT-GLUCOSE [id number] 12:25:00 Test Item Value Reference Range Interpretation Comments POC-GLUCOSE METER 171 mg/dL 70-110 H : [facility] ([facility]ER[facility] (test code = [place], 1538) [address]: Alberene Stone Setter/Techni gretel ID = [id number] for RADHA DE LOS SANTOS [id number] 04:17:00 Test Item Value Reference Range Interpretation Comments PHOSPHORUS (BEAKER) (test code = 2.0 mg/dL 2.3-4.7 L 604) Alberene Stone Setter ID Ross SARAH [id number] 04:17:00 Test Item Value Reference Range Interpretation Comments MAGNESIUM (BEAKER) (test code = 1.6 mg/dL 1.6-2.6 627) Alberene Stone Setter ID - KEARA WBASIC METABOLIC [id number] 04:17:00 Test Item Value Reference Range Interpretation Comments SODIUM (BEAKER) 141 meq/L 136-145 (test code = 381) POTASSIUM (BEAKER) 4.1 meq/L 3.5-5.1 (test code = 379) CHLORIDE (BEAKER) 115 meq/L 98-107 H (test code = 382) CO2 (BEAKER) (test 21 meq/L 22-29 L code = 355) BLOOD UREA NITROGEN 22 mg/dL 7-21 H (BEAKER) (test code = 354) CREATININE (BEAKER) 1.08 mg/dL 0.57-1.25 (test code = 358) GLUCOSE RANDOM 122 mg/dL 70-105 H (BEAKER) (test code = 652) CALCIUM (BEAKER) 8.8 mg/dL 8.4-10.2 (test code = 697) EGFR (BEAKER) (test 49 mL/min/1.73 ESTIMA LYN GFR IS code = 1092) sq m NOT ACCURATE CREATININE CLEARANCE IN PREDICTING GLOMERULAR FILTRATION RATE . ESTIMATED GFR I S NOT APPLICABLE FOR DIALYSIS PATIEN TS. Alberene Stone Setter ID Ross SARAH WCBC (HEMOGRAM ONLY)2019-05-18 03:55:00 Test Item Value Reference Range Interpretation Comments WHITE BLOOD CELL COUNT (BEAKER) 14.8 K/ L 3.5-10.5 H (test code = 775) RED BLOOD CELL COUNT (BEAKER) 3.00 M/ L 3.93-5.22 L (test code = 761) HEMOGLOBIN (BEAKER) (test code = 8.7 GM/DL 11.2-15.7 L 410) HEMATOCRIT (BEAKER) (test code = 28.4 % 34.1-44.9 L 411) MEAN CORPUSCULAR VOLUME (BEAKER) 94.7 fL 79.4-94.8 (test code = 753) MEAN CORPUSCULAR HEMOGLOBIN 29.0 pg 25.6-32.2 (BEAKER) (test code = 751) MEAN CORPUSCULAR HEMOGLOBIN CONC 30.6 GM/DL 32.2-35.5 L (BEAKER) (test code = 752) RED CELL DISTRIBUTION WIDTH 14.3 % 11.7-14.4 (BEAKER) (test code = 412) PLATELET COUNT (BEAKER) (test 209 K/CU MM 150-450 code = 756) MEAN PLATELET VOLUME (BEAKER) 10.6 fL 9.4-12.3 (test code = 754) NUCLEATED RED BLOOD CELLS 0 /100 WBC 0-0 (BEAKER) (test code = 413) POCT-GLUCOSE [id number] 18:43:00 Test Item Value Reference Range Interpretation Comments POC-GLUCOSE METER 139 mg/dL 70-110 H : TESTED A T [facility] 6720 (BEAKER) (test code = LEONARDMIKE Mackenzie [facility], 1538) [address]: Alberene Stone Setter/Techni gretel ID = [id number] for RADHA DE LOS SANTOS, CAROTID STENT W [id number] 15:10:00Reason for exam:->left carotid stenosisFINAL REPORT Date of procedure May 17, 2019 CLINICAL HISTORY: 79 years female with recent [...] kidney with renal failure,need for additional treatment, complications of general anesthesia and . Neuroleptic sedation and monitoring was provided by anesthesiology. Using a micropuncture set and under fluoroscopic guidance and strict sterile technique a 6 [place] shuttle sheath was inserted through the right common femoral artery into the left common carotid artery. Under systemic anticoagulation to keep the ACT between 250 and 300 and following premedication with Plavix aspirin the following procedure was performed: 1. Pretreatment selective left common carotid arteriogram with biplane and oblique imaging over the carotid bifurcation.2. Pretreatment select sushil left common carotid arteriogram with biplane imaging [...] approximately 70%. A distal protective device (EmboShield) was gently navigated through the stenotic segment and positioned in the distal cervical segment of the left internal [...] the stent to the arterial wall with evangelical of the intraluminal flow and mild residual stenosis of approximately 20%. There is no evidence of platelet aggregation, or dissection. Intracranially there is evangelical of good antegrade flow with no evidence of acute clot formation. The MCA on the left side fills normally At the end of the procedure hemostasis was achieved utilizin g manual compression and the deployment AngioSeal device. The patient tolerated the procedure well without acute complication related to the procedure. Impression: 1. Successful stenting and angioplasty of proximal left internal carotid artery stenosis. 2. The patient should remain on antiplatelet therapy. Signed: Khai Carrascoeport Verified Date/Time: 05/17/2019 15:10:42 [facility] Reading Room POCT-GLUCOSE [id number] 12:40:00 Test Item Value Reference Range Interpretation Comments POC-GLUCOSE METER 130 mg/dL 70-110 H : TESTED A T [facility] 6720 ([place]) (test code = [place], 1538) [address]: Alberene Stone Setter/Techni gretel ID = [id number] for RADHA DE LOS SANTOS PROTHROMBIN [id number] 11:08:00 Test Item Value Reference Range Interpretation Comments PROTIME (BEAKER) (test code = 13.7 seconds 11.9-14.2 759) INR (BEAKER) (test code = 370) 1.1 <=5.9 Effective 09/07/2018: PT Reference Range ChangeNew: 11.9-14.2 Previous: 11.7- 14.7RECOMMENDED COUMADIN/WARFARIN INR THERAPY RANGESSTANDARD DOSE: 2.0-3.0 Includes: PROPHYLAXIS for venous thrombosis, systemic embolization; TREATMENT for venous thrombosis and/or pulmonary embolus.HIGH RISK: Target INR is2.5-3.5 for patients wiht mechanical heart valves.[id number] 09:19:00 Test Item Value Reference Range Interpretation Comments PARTIAL THROMBOPLASTIN TIME 37.6 seconds 22.5-36.0 H (BEAKER) (test code = 760) POCT-GLUCOSE [id number] 06:49:00 Test Item Value Reference Range Interpretation Comments POC-GLUCOSE METER 110 mg/dL 70-110 : TESTED A T [facility] 6720 ([employer]) (test code = [place], 1538) [address]: Alberene Stone Setter/Techni gretel ID = [id number] for MASON PHELPS BASIC METABOLIC [id number] 05:59:00 Test Item Value Reference Range Interpretation Comments SODIUM (BEAKER) 140 meq/L 136-145 (test code = 381) POTASSIUM (BEAKER) 4.2 meq/L 3.5-5.1 Specimen slightly (test code = 379) hemolyzed CHLORIDE (BEAKER) 111 meq/L 98-107 H (test code = 382) CO2 (BEAKER) (test 22 meq/L 22-29 code = 355) BLOOD UREA NITROGEN 17 mg/dL 7-21 (BEAKER) (test code = 354) CREATININE (BEAKER) 1.23 mg/dL 0.57-1.25 Specimen slightly (test code = 358) hemolyzed GLUCOSE RANDOM 90 mg/dL 70-105 (BEAKER) (test code = 652) CALCIUM (BEAKER) 8.8 mg/dL 8.4-10.2 (test code = 697) EGFR (BEAKER) (test 42 mL/min/1.73 ESTIMA LYN GFR IS code = 1092) sq m NOT ACCURATE CREATININE CLEARANCE IN PREDICTING GLOMERULAR FILTRATION RATE . ESTIMATED GFR I S NOT APPLICABLE FOR DIALYSIS PATIEN TS. Alberene Stone Setter ID - TERRI [id number] 05:35:00 Test Item Value Reference Range Interpretation Comments PARTIAL THROMBOPLASTIN TIME 38.3 seconds 22.5-36.0 H (BEAKER) (test code = 760) Prior to initiating heparinPOCT-P2Y12 PLATELET [id number] 05:34:00 Test Item Value Reference Range Interpretation Comments POC-P2Y12 PLATELET AGG (BEAKER) (test 230 PRU code = 2303) RANGE INFORMATION: PRU reference range is 194-418. Post Drug Results: Lower PRU levels are associated with expected antiplatelet effect. Values may be below the stated reference range above. The post-drug PRU values reported in the [employer] P2Y12 package insert are [id number].POCT-ASPIRIN PLATELET [id number] 05:34:00 Test Item Value Reference Range Interpretation Comments POC-ASPIRIN PLATELET AGG (BEAKER) 564 ARU (test code = 2302) RANGE INFORMATION: 350-549 ARU Therapeutic range for platelet function. 550-700 ARU Non-Therapeutic range for platelet function.[id number] 05:34:00 Test Item Value Reference Range Interpretation Comments PARTIAL THROMBOPLASTIN TIME 38.5 seconds 22.5-36.0 H (BEAKER) (test code = 760) CBC (HEMOGRAM ONLY)2019-05-17 04:59:00 Test Item Value Reference Range Interpretation Comments WHITE BLOOD CELL COUNT (BEAKER) 11.9 K/ L 3.5-10.5 H (test code = 775) RED BLOOD CELL COUNT (BEAKER) 3.27 M/ L 3.93-5.22 L (test code = 761) HEMOGLOBIN (BEAKER) (test code = 9.5 GM/DL 11.2-15.7 L 410) HEMATOCRIT (BEAKER) (test code = 31.0 % 34.1-44.9 L 411) MEAN CORPUSCULAR VOLUME (BEAKER) 94.8 fL 79.4-94.8 (test code = 753) MEAN CORPUSCULAR HEMOGLOBIN 29.1 pg 25.6-32.2 (BEAKER) (test code = 751) MEAN CORPUSCULAR HEMOGLOBIN CONC 30.6 GM/DL 32.2-35.5 L (BEAKER) (test code = 752) RED CELL DISTRIBUTION WIDTH 14.0 % 11.7-14.4 (BEAKER) (test code = 412) PLATELET COUNT (BEAKER) (test 208 K/CU MM 150-450 code = 756) MEAN PLATELET VOLUME (BEAKER) 10.9 fL 9.4-12.3 (test code = 754) NUCLEATED RED BLOOD CELLS 0 /100 WBC 0-0 (BEAKER) (test code = 413) [id number] 02:03:00 Test Item Value Reference Range Interpretation Comments PARTIAL THROMBOPLASTIN TIME 35.8 seconds 22.5-36.0 (BEAKER) (test code = 760) 6 hours after starting heparin infusion and as indicated per sliding scalePOCT- GLUCOSE [id number] 00:00:00 Test Item Value Reference Range Interpretation Comments POC-GLUCOSE METER 109 mg/dL 70-110 : TESTED A T [facility] 6720 (BEAKER) (test code = [place], 1538) [address]: Alberene Stone Setter/Techni gretel ID = [id number] for RA MILLER MASON POCT-GLUCOSE [id number] 18:48:00 Test Item Value Reference Range Interpretation Comments POC-GLUCOSE METER 148 mg/dL 70-110 H : Notified RN/MD: (GIFTY) (test code = TESTED AT [facility] 6720 1538) [facility] ALBERTO [facility], [address]: Alberene Stone Setter/Techni gretel ID = [id number] for STEWART MOORE, ANGIOGRAM, [id number] 16:45:00Reason for exam:->basilar tip aneurysmFINAL REPORT Date [...] guidance and strict sterile technique a 4 [place] femoral sheath was inserted into the right radial artery. Through the sheath a 4 [place] [employer] catheter was then advanced over the wire [...] abnormality. The selective right common carotid arteriogram with biplane ,and three-dimensional imaging demonstrates normal antegrade flow [...] mm basilar apex aneurysm. Signed: Khai Carrasco MDReport Verified Date/Time: 05/16/2019 16:45:20 Reading Location: [place] [address] Neuro Angio Reading Room POCT-GLUCOSE [id number] 13:41:00 Test Item Value Reference Range Interpretation Comments POC-GLUCOSE METER 120 mg/dL 70-110 H : TESTED A T [facility] 6720 (GIFTY) (test code = [place], 1538) [address]: Alberene Stone Setter/Techni gretel ID = [id number] for ESVIN LAMBERT [id number] 09:24:00 Test Item Value Reference Range Interpretation Comments PARTIAL THROMBOPLASTIN TIME 36.3 seconds 22.5-36.0 H ([place]) (test code = 760) 6 hours after starting heparin infusion and as indicated per sliding scaleCBC (HEMOGRAM ONLY)2019-05-16 09:10:00 Test Item Value Reference Range Interpretation Comments WHITE BLOOD CELL COUNT (BEAKER) 10.1 K/ L 3.5-10.5 (test code = 775) RED BLOOD CELL COUNT (BEAKER) 3.68 M/ L 3.93-5.22 L (test code = 761) HEMOGLOBIN (BEAKER) (test code = 10.6 GM/DL 11.2-15.7 L 410) HEMATOCRIT (BEAKER) (test code = 34.7 % 34.1-44.9 411) MEAN CORPUSCULAR VOLUME (BEAKER) 94.3 fL 79.4-94.8 (test code = 753) MEAN CORPUSCULAR HEMOGLOBIN 28.8 pg 25.6-32.2 (BEAKER) (test code = 751) MEAN CORPUSCULAR HEMOGLOBIN CONC 30.5 GM/DL 32.2-35.5 L (BEAKER) (test code = 752) RED CELL DISTRIBUTION WIDTH 14.0 % 11.7-14.4 (BEAKER) (test code = 412) PLATELET COUNT (BEAKER) (test 240 K/CU MM 150-450 code = 756) MEAN PLATELET VOLUME (BEAKER) 10.6 fL 9.4-12.3 (test code = 754) NUCLEATED RED BLOOD CELLS 0 /100 WBC 0-0 (BEAKER) (test code = 413) [id number] 03:01:00 Test Item Value Reference Range Interpretation Comments PROTIME (BEAKER) (test code = 19.1 seconds 11.9-14.2 H 759) INR (BEAKER) (test code = 370) 1.7 <=5.9 PARTIAL THROMBOPLASTIN TIME 32.2 seconds 22.5-36.0 (BEAKER) (test code = 760) Effective 09/07/2018: PT Reference Range ChangeNew: 11.9-14.2 Previous: 11.7- 14.7RECOMMENDED COUMADIN/WARFARIN INR THERAPY RANGESSTANDARD DOSE: 2.0-3.0 Includes: PROPHYLAXIS for venous thrombosis, systemic embolization; TREATMENT for venous thrombosis and/or pulmonary embolus.HIGH RISK: Target INR is2.5-3.5 for patients wiht mechanical heart valves.Prior to initiating heparinPrior to initiating [id number] 03:01:00 Test Item Value Reference Range Interpretation Comments PARTIAL THROMBOPLASTIN TIME 32.2 seconds 22.5-36.0 (BEAKER) (test code = 760) BASIC METABOLIC [id number] 02:58:00 Test Item Value Reference Range Interpretation Comments SODIUM (BEAKER) 135 meq/L 136-145 L (test code = 381) POTASSIUM (BEAKER) 4.2 meq/L 3.5-5.1 (test code = 379) CHLORIDE (BEAKER) 106 meq/L 98-107 (test code = 382) CO2 (BEAKER) (test 22 meq/L 22-29 code = 355) BLOOD UREA NITROGEN 15 mg/dL 7-21 (BEAKER) (test code = 354) CREATININE (BEAKER) 1.16 mg/dL 0.57-1.25 (test code = 358) GLUCOSE RANDOM 116 mg/dL 70-105 H (BEAKER) (test code = 652) CALCIUM (BEAKER) 8.9 mg/dL 8.4-10.2 (test code = 697) EGFR (BEAKER) (test 45 mL/min/1.73 ESTIMA LYN GFR IS code = 1092) sq m NOT ACCURATE CREATININE CLEARANCE IN PREDICTING GLOMERULAR FILTRATION RATE . ESTIMATED GFR I S NOT APPLICABLE FOR DIALYSIS PATIEN TS. Alberene Stone Setter ID - TERRI MPLATELET [id number] 02:45:00 Test Item Value Reference Range Interpretation Comments PLATELET COUNT (BEAKER) (test 231 K/CU MM 150-450 code = 756) Alberene Stone Setter ID - [id number], CEREBRAL PERFUSION [id number] 01:22:00FINAL REPORT CT cerebral perfusion analysis. Comparison: None. Reason for exam: Neuro deficit, acute, stroke suspected. Discussion: CT imaging was provided using perfusion technique with associated post processed perfusion analysis maps including main transit time, time to peak, blood flow, and blood volume. Dose modulation, iterative reconstruction, and/or weight based adjustm ent of the mA/kV was utilized to reduce [...] approximately 1:20 AM 05/16/2018. Signed: Fabiano Montoya MDReport Verified Date/Time: 05/16/2019 01:22:48 [facility] [place] [id number] 01:09:00 FINAL REPORT EXAM: CT, CT Angio, Brain. [...] Fabiano Montoya MDReport Verified Date/Time: 05/16/2019 01:09:25 CT, CAROTID, ANGIO 2019-05-16 01:09:00FINAL REPORT EXAM: CT, CT Angio, Brain. CT [...] left carotid bulb with calcified and noncalcified pl aque resulting in mild stenosis. There is near [...] at approximately 1:05 AM 05/16/2019. Signed: Fabiano Montoyamaribel Verified Date/Time: 05/16/2019 01:09:25 [facility], BRAIN/STROKE PROTOCOL 2019-05-15 23:34:00FINAL REPORT EXAM: CT head without contrast. 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 Discussed with neurology resident at 11:30 PM 05/15/2019. Signed: [facility] Verified Date/Time: 05/15/2019 23:34:22 POCT-GLUCOSE [id number] 20:57:00 Test Item Value Reference Range Interpretation Comments POC-GLUCOSE METER 119 mg/dL 70-110 H : TESTED A T [facility] 6720 (BEAKER) (test code = HUMBERTO Mackenzie [place], 1538) [id number]: Alberene Stone Setter/Techni gretel ID = [id number] for CARLINE HARDING PROTHROMBIN [id number] 19:47:00 Test Item Value Reference Range Interpretation Comments PROTIME (BEAKER) (test code = 19.6 seconds 11.9-14.2 H 759) INR (BEAKER) (test code = 370) 1.7 <=5.9 Effective 09/07/2018: PT Reference Range ChangeNew: 11.9-14.2 Previous: 11.7- 14.7RECOMMENDED COUMADIN/WARFARIN INR THERAPY RANGESSTANDARD DOSE: 2.0-3.0 Includes: PROPHYLAXIS for venous thrombosis, systemic embolization; TREATMENT for venous thrombosis and/or pulmonary embolus.HIGH RISK: Target INR is2.5-3.5 for patients wiht mechanical heart valves.POCT-GLUCOSE [id number] 17:51:00 Test Item Value Reference Range Interpretation Comments POC-GLUCOSE METER 125 mg/dL 70-110 H : TESTED A T [facility] 6720 (BEAKER) (test code = [facility], 1538) [id number]: Alberene Stone Setter/Techni gretel ID = [id number] for BR OWN, MARIA DEL CARMEN POCT-GLUCOSE [id number] 11:55:00 Test Item Value Reference Range Interpretation Comments POC-GLUCOSE METER 169 mg/dL 70-110 H : TESTED A T [facility] 6720 (BEAKER) (test code = [facility], 1538) [id number]: Alberene Stone Setter/Techni gretel ID = [id number] for BR OWN, MARIA DEL CARMEN HEMOGLOBIN [id number] 10:46:00 Test Item Value Reference Range Interpretation Comments HEMOGLOBIN A1C (BEAKER) (test code = 5.8 % 4.3-6.1 368) POCT-GLUCOSE [id number] 08:50:00 Test Item Value Reference Range Interpretation Comments POC-GLUCOSE METER 134 mg/dL 70-110 H : TESTED A T [facility] 6720 (BEAKER) (test code = [facility], 1538) [id number]: Alberene Stone Setter/Techni gretel ID = [id number] for BR OWN, MARIA DEL CARMEN VITAMIN B12 AND [id number] 07:44:00 Test Item Value Reference Range Interpretation Comments VITAMIN B12 (BEAKER) (test code = 472 pg/mL 213-519 614) FOLATE (BEAKER) (test code = 362) 19.4 ng/mL >=7.0 Alberene Stone Setter ID - MALOU FPOCT-GLUCOSE [id number] 06:57:00 Test Item Value Reference Range Interpretation Comments POC-GLUCOSE METER 114 mg/dL 70-110 H : [facility] ([facility] (test code = [facility], 1538) [id number]: Alberene Stone Setter/Techni gretel ID = [id number] for DE MALIHA WARNER LIPID [id number] 06:53:00 Test Item Value Reference Range Interpretation Comments TRIGLYCERIDES (BEAKER) (test code = 341 mg/dL 540) CHOLESTEROL (BEAKER) (test code = 199 mg/dL 631) HDL CHOLESTEROL (BEAKER) (test code 41 mg/dL = 976) LDL CHOLESTEROL CALCULATED (BEAKER) 90 mg/dL (test code = 633) Triglyceride Reference Range: Low Risk <150 Borderline 150-199 High Risk 200-499 Very High Risk >=500Cholesterol Reference Range: Low Risk <200 Borderline 200-239 High Risk >240HDL Cholesterol Reference Range: Low Risk >=60 High Risk <40LDL Cholesterol Reference Range: Optimal <100 Near Optimal 100-129 Borderline 130-159 High 160-189 Very High >=190 Alberene Stone Setter ID - PIAYALBASIC METABOLIC [id number] 06:53:00 Test Item Value Reference Range Interpretation Comments SODIUM (BEAKER) 139 meq/L 136-145 (test code = 381) POTASSIUM (BEAKER) 4.3 meq/L 3.5-5.1 (test code = 379) CHLORIDE (BEAKER) 110 meq/L 98-107 H (test code = 382) CO2 (BEAKER) (test 22 meq/L 22-29 code = 355) BLOOD UREA NITROGEN 17 mg/dL 7-21 (BEAKER) (test code = 354) CREATININE (BEAKER) 1.15 mg/dL 0.57-1.25 (test code = 358) GLUCOSE RANDOM 121 mg/dL 70-105 H (BEAKER) (test code = 652) CALCIUM (BEAKER) 9.3 mg/dL 8.4-10.2 (test code = 697) EGFR (BEAKER) (test 46 mL/min/1.73 ESTIMA LYN GFR IS code = 1092) sq m NOT ACCURATE CREATININE CLEARANCE IN PREDICTING GLOMERULAR FILTRATION RATE . ESTIMATED GFR I S NOT APPLICABLE FOR DIALYSIS PATIEN TS. Alberene Stone Setter ID - PIAYA LCBC (HEMOGRAM ONLY)2019-05-15 06:29:00 Test Item Value Reference Range Interpretation Comments WHITE BLOOD CELL COUNT (BEAKER) 10.6 K/ L 3.5-10.5 H (test code = 775) RED BLOOD CELL COUNT (BEAKER) 3.58 M/ L 3.93-5.22 L (test code = 761) HEMOGLOBIN (BEAKER) (test code = 10.3 GM/DL 11.2-15.7 L 410) HEMATOCRIT (BEAKER) (test code = 34.0 % 34.1-44.9 L 411) MEAN CORPUSCULAR VOLUME (BEAKER) 95.0 fL 79.4-94.8 H (test code = 753) MEAN CORPUSCULAR HEMOGLOBIN 28.8 pg 25.6-32.2 (BEAKER) (test code = 751) MEAN CORPUSCULAR HEMOGLOBIN CONC 30.3 GM/DL 32.2-35.5 L (BEAKER) (test code = 752) RED CELL DISTRIBUTION WIDTH 13.8 % 11.7-14.4 (BEAKER) (test code = 412) PLATELET COUNT (BEAKER) (test 244 K/CU MM 150-450 code = 756) MEAN PLATELET VOLUME (BEAKER) 10.8 fL 9.4-12.3 (test code = 754) NUCLEATED RED BLOOD CELLS 0 /100 WBC 0-0 (BEAKER) (test code = 413) MR, BRAIN, WITHOUT [id number] 04:06:00FINAL REPORT EXAM: MR, BRAIN, WITHOUT CONTRAST CLINICAL INDICATION: Neuro deficit. Concern for stroke. TECHNIQUE: Sagittal and coronal T1-w and axial T2-FLAIR, GRE, fat-saturated T2-w, and diffusion-w images of [...] Signed: Denise Rosario MDReport Verified Date/Time: 05/15/2019 04:06:56 POCT-GLUCOSE [id number] 21:18:00 Test Item Value Reference Range Interpretation Comments POC-GLUCOSE METER 95 mg/dL 70-110 : TESTED A T [facility] 6720 (BEAKER) (test code = [facility], 1538) [id number]: Alberene Stone Setter/Techni gretel ID = [id number] for PETEBan ORVILLEMALIHA BASIC METABOLIC [id number] 14:37:00 Test Item Value Reference Range Interpretation Comments SODIUM (BEAKER) 140 meq/L 136-145 (test code = 381) POTASSIUM (BEAKER) 4.6 meq/L 3.5-5.1 (test code = 379) CHLORIDE (BEAKER) 107 meq/L 98-107 (test code = 382) CO2 (BEAKER) (test 23 meq/L 22-29 code = 355) BLOOD UREA NITROGEN 78 mg/dL 7-21 H (BEAKER) (test code = 354) CREATININE (BEAKER) 2.35 mg/dL 0.57-1.25 H (test code = 358) GLUCOSE RANDOM 112 mg/dL 70-105 H (BEAKER) (test code = 652) CALCIUM (BEAKER) 9.8 mg/dL 8.4-10.2 (test code = 697) EGFR (BEAKER) (test 20 mL/min/1.73 ESTIMA LYN GFR IS code = 1092) sq m NOT ACCURATE CREATININE CLEARANCE IN PREDICTING GLOMERULAR FILTRATION RATE . ESTIMATED GFR I S NOT APPLICABLE FOR DIALYSIS PATIEN TS. BASIC METABOLIC [id number] 13:34:00 Test Item Value Reference Range Interpretation Comments SODIUM (BEAKER) 138 meq/L 136-145 (test code = 381) POTASSIUM (BEAKER) 4.6 meq/L 3.5-5.1 (test code = 379) CHLORIDE (BEAKER) 106 meq/L 98-107 (test code = 382) CO2 (BEAKER) (test 21 meq/L 22-29 L code = 355) BLOOD UREA NITROGEN 80 mg/dL 7-21 H (BEAKER) (test code = 354) CREATININE (BEAKER) 2.49 mg/dL 0.57-1.25 H (test code = 358) GLUCOSE RANDOM 122 mg/dL 70-105 H (BEAKER) (test code = 652) CALCIUM (BEAKER) 9.9 mg/dL 8.4-10.2 (test code = 697) EGFR (BEAKER) (test 19 mL/min/1.73 ESTIMA LYN GFR IS code = 1092) sq m NOT ACCURATE CREATININE CLEARANCE IN PREDICTING GLOMERULAR FILTRATION RATE . ESTIMATED GFR I S NOT APPLICABLE FOR DIALYSIS PATIEN TS. [id number] 12:49:00 Test Item Value Reference Range Interpretation Comments PROTIME (BEAKER) (test code = 13.2 seconds 11.9-14.2 759) INR (BEAKER) (test code = 370) 1.1 <=5.9 PARTIAL THROMBOPLASTIN TIME 28.8 seconds 22.5-36.0 (BEAKER) (test code = 760) Effective 09/07/2018: PT Reference Range ChangeNew: 11.9-14.2 Previous: 11.7- 14.7RECOMMENDED COUMADIN/WARFARIN INR THERAPY RANGESSTANDARD DOSE: 2.0-3.0 Includes: PROPHYLAXIS for venous thrombosis, systemic embolization; TREATMENT for venous thrombosis and/or pulmonary embolus.HIGH RISK: Target INR is2.5-3.5 for patients wiht mechanical heart valves.CBC W/PLT COUNT & AUTO [id number] 12:48:00 Test Item Value Reference Range Interpretation Comments WHITE BLOOD CELL COUNT (BEAKER) 12.4 K/ L 3.5-10.5 H (test code = 775) RED BLOOD CELL COUNT (BEAKER) 3.90 M/ L 3.93-5.22 L (test code = 761) HEMOGLOBIN (BEAKER) (test code = 11.4 GM/DL 11.2-15.7 410) HEMATOCRIT (BEAKER) (test code = 36.5 % 34.1-44.9 411) MEAN CORPUSCULAR VOLUME (BEAKER) 93.6 fL 79.4-94.8 (test code = 753) MEAN CORPUSCULAR HEMOGLOBIN 29.2 pg 25.6-32.2 (BEAKER) (test code = 751) MEAN CORPUSCULAR HEMOGLOBIN CONC 31.2 GM/DL 32.2-35.5 L (BEAKER) (test code = 752) RED CELL DISTRIBUTION WIDTH 13.7 % 11.7-14.4 (BEAKER) (test code = 412) PLATELET COUNT (BEAKER) (test 307 K/CU MM 150-450 code = 756) MEAN PLATELET VOLUME (BEAKER) 11.3 fL 9.4-12.3 (test code = 754) NUCLEATED RED BLOOD CELLS 0 /100 WBC 0-0 (BEAKER) (test code = 413) NEUTROPHILS RELATIVE PERCENT 68 % (BEAKER) (test code = 429) LYMPHOCYTES RELATIVE PERCENT 19 % (BEAKER) (test code = 430) MONOCYTES RELATIVE PERCENT 8 % (BEAKER) (test code = 431) EOSINOPHILS RELATIVE PERCENT 4 % (BEAKER) (test code = 432) BASOPHILS RELATIVE PERCENT 1 % (BEAKER) (test code = 437) NEUTROPHILS ABSOLUTE COUNT 8.38 K/ L 1.56-6.13 H (BEAKER) (test code = 670) LYMPHOCYTES ABSOLUTE COUNT 2.40 K/ L 1.18-3.74 (BEAKER) (test code = 414) MONOCYTES ABSOLUTE COUNT (BEAKER) 0.94 K/ L 0.24-0.36 H (test code = 415) EOSINOPHILS ABSOLUTE COUNT 0.44 K/ L 0.04-0.36 H (BEAKER) (test code = 416) BASOPHILS ABSOLUTE COUNT (BEAKER) 0.06 K/ L 0.01-0.08 (test code = 417) IMMATURE GRANULOCYTES-RELATIVE 1 % 0-1 PERCENT (BEAKER) (test code = 2801)
[2019-09-06 22:32] LABS: Absolute Lymphocytes (CBC) 1.2 K/uL (0.7-4.9); Basophils % 0.5 % (0-1.3); Hematocrit 30.2 % (36.0-45.0); Lymphocytes % 6.3 % (15.3-44.8); MPV 9.3 fL (7.6-11.3); Protime INR 0.97; RBC Red Blood Cell Count 3.25 M/uL (3.86-4.86)
[2019-09-06] MEDS ORDERED: ONDANSETRON 4 MG/2 ML VIAL ONE (22:39)
[2019-09-06] MEDS ORDERED: MORPHINE 4 MG/ML SYR ONE (22:39)
[2019-09-06 22:44] LABS: ALT/SGPT 23 U/L (12-78); AST/SGOT 21 U/L (15-37); Albumin 3.2 g/dL (3.4-5.0); Alkaline Phosphatase 96 U/L (45-117); BUN Blood Urea Nitrogen 56 mg/dL (7-18); Bicarbonate 21 mmol/L (21-32); Bilirubin Direct < 0.1 mg/dL (0-0.2); Bilirubin Total 0.2 mg/dL (0.2-1.0); Glucose Level 199 mg/dL (74-106); Magnesium 2.2 mg/dL (1.8-2.4); NT PRO-BNP 993 pg/mL (<450); Potassium 4.9 mmol/L (3.5-5.1); Protein, Total 7.6 g/dL (6.4-8.2); Sodium Level 138 mmol/L (136-145); Troponin (Emerg Dept Use Only) 0.06 ng/mL (0.0-0.045)
[2019-09-06] MEDS ORDERED: KETOROLAC 30 MG/ML INJ ONE (22:44)
[2019-09-06] MEDS ORDERED: ONDANSETRON 4 MG/2 ML VIAL IV PRN (23:20)
[2019-09-06] MEDS ORDERED: MORPHINE 4 MG/ML SYR IV PRN (23:20)
[2019-09-06] MEDS ORDERED: AZITHROMYCIN IV 500 MG in NA CHLORIDE 0.9% 250 ML IVPB ONE (23:20)
[2019-09-06] MEDS ORDERED: AZITHROMYCIN 500 MG INJ IVPB ONE (23:46)
[2019-09-06] MEDS ORDERED: ENOXAPARIN 100 MG/ML SYR SQ ONE (23:46)
[2019-09-06] MEDS ORDERED: NA CHLORIDE 0.9% 250 ML ONE (23:47)
[2019-09-07] MEDS ORDERED: NITROGLYCERIN 1 GM PKT TD SCH
--- NOTE | 2019-09-07 06:18 | EKG ---
Test Date: 2019-09-06 Test Time: 22:14:43 Tourist Adviser: TT MEASUREMENT RESULTS: Intervals: Rate: 98 FL: 122 QRSD: 132 QT: 406 QTc: 518 [place]: P: 77 FL: 122 QRS: -45 T: 29 INTERPRETIVE STATEMENTS: Normal sinus rhythm Right bundle branch block Left anterior fascicular block Bifascicular block Moderate voltage criteria for LVH, may be normal variant Abnormal ECG Compared to ECG 05/30/2019 14:32:28 Left anterior fascicular block now present Bifascicular block now present Sinus arrhythmia no longer present Electronically Signed On 09-07-19 06:17:38 CDT by Renaldo Mcleod
[2019-09-07 06:28] LABS: Absolute Lymphocytes (CBC) 1.8 K/uL (0.7-4.9); Basophils % 0.8 % (0-1.3); Lymphocytes % 12.5 % (15.3-44.8); MPV 9.3 fL (7.6-11.3); RBC Red Blood Cell Count 2.98 M/uL (3.86-4.86)
[2019-09-07 06:53] LABS: Potassium 5.2 mmol/L (3.5-5.1)
[2019-09-07] MEDS ORDERED: ALBUTEROL INHALER 60 PUFF/8 GM IH PRN (07:57)
[2019-09-07] MEDS ORDERED: MELATONIN 5 MG TABLET PO PRN (07:57)
[2019-09-07 08:17] VITALS: BMI 32.3
--- NOTE | 2019-09-07 08:20 | RAD REPORT ---
EXAM DESCRIPTION: Giovanny Single View09/06/2019 10:36 pm CLINICAL HISTORY: Chest pain COMPARISON: May 2019 FINDINGS: The lungs appear clear of acute infiltrate. The heart is normal size IMPRESSION: No acute abnormalities displayed
[2019-09-07] MEDS: COLCHICINE 0.6 MG TAB PO SCH (08:57)
[2019-09-07] MEDS: TAMSULOSIN 0.4 MG SR CAP PO SCH (08:57)
[2019-09-07] MEDS: PANTOPRAZOLE 40MG TABLET PO SCH (08:58)
[2019-09-07] MEDS: VALSARTAN 160 MG TAB PO SCH (08:58)
[2019-09-07] MEDS: FERROUS SULFATE 325 MG TAB PO SCH ×2 (08:58→21:23)
[2019-09-07] MEDS: HYDRALAZINE HCL 25 MG TABLET PO SCH ×3 (08:59→21:00)
[2019-09-07] MEDS: GABAPENTIN 300 MG CAP PO SCH ×3 (08:59→21:23)
[2019-09-07] MEDS: allopurinoL 100 MG TAB PO SCH (08:59)
[2019-09-07] MEDS ORDERED: ASPIRIN EC 81 MG TAB PO SCH (09:00)
[2019-09-07] MEDS ORDERED: AZILSARTAN MEDOXOMIL 80 MG PO SCH (09:00)
[2019-09-07] MEDS: NEBIVOLOL HCL 20 MG TABLET PO SCH ×2 (09:26→21:00)
[2019-09-07] MEDS ORDERED: NITROGLYCERIN 0.4 MG/TAB SL ONE (09:33)
[2019-09-07 09:45] LABS: Urine Appearance CLEAR; Urine Bilirubin NEGATIVE (NEG); Urine Blood NEGATIVE (NEG); Urine Color YELLOW; Urine Glucose NEGATIVE (NEG); Urine Protein 2+ (NEG); Urine Specific Gravity 1.015 (1.005-1.030); Urine Urobilinogen 0.2 mg/dL (0.2-1.0); Urine pH 5.5 (5.0-7.0)
[2019-09-07 09:54] LABS: Urine Microscopic Reflex ORDER UMIC
[2019-09-07 11:14] LABS: Urine Amorphous Sediment 2+ /HPF (NONE SEEN); Urine Bacteria 20-50 /HPF (<20); Urine Culture Reflex Order NOT NEEDED; Urine RBC <5 /HPF (NONE SEEN)
[2019-09-07] MEDS ORDERED: NITROGLYCERIN 0.4 MG/TAB SL PRN (11:43)
[2019-09-07] MEDS ORDERED: ISOSORBIDE MONO SR 30 MG TAB PO SCH (12:00)
[2019-09-07] MEDS: NITROGLYCERIN 1 GM PKT TD SCH ×2 (12:13→17:42)
[2019-09-07] MEDS: LIDOCAINE 4% PATCH TOP SCH (12:14)
--- NOTE | 2019-09-07 17:36 | CON ---
Date of Consultation: 09/07/2019 Reason For Consultation: Chest pain and elevated troponin. History Of Present Illness: This 79-year-old female presented to the emergency room with chest pain, started about 3 p.m. yesterday along with shortness of breath. Chest pain is retrosternal. No radi ation. However, it seems that it gets relieved with sublingual nitroglycerin. Patient is known to h ave chronic atrial fibrillation and also carotid stenosis, status post carotid stents. She also has a history of brain aneurysm, diabetes, and hypertension. She denies having any nausea, vomiting, or diarrhea. No other complaints. Past Medical History: As outlined above in the HPI. Medications: Refer to reconciliation sheet for detailed list. Allergies: CODEINE, MORPHINE, ACETAMINOPHEN AND CODEINE. LIST OF ALLERGIES WAS REVIEWED. Family History: No premature coronary artery disease or cancer. Social History: She does not smoke or drink. Does not use any drugs. Review of Systems: All systems reviewed and they were negative except what is mentioned in the HPI. Physical Examination: Vital Signs: Temperature is 98.4, pulse 94, breathing at 18-20, blood pressure is 133/49, saturating 100%. General: This is a pleasant, elderly female, in no apparent distress. Head and Neck: Pupils are equal and reactive to light. Intact eye movements. No JVD. No cervical lymphadenopathy. Neck supple. Thyroid is not enlarged. Lungs: Clear to auscultation bilaterally. No rhonchi, rales, or crackles. No accessory muscle use. Heart: Regular rate and rhythm. No extra sounds. Abdomen: Soft and nontender. Bowel sounds positive. No organomegaly. No masses or hernia. No rig idity or rebound. Extremities: No clubbing or cyanosis. Intact pulses. Skin: No rash. Neurologic: Alert, awake, oriented x3. No acute focal deficits appreciated. Investigations: Troponin 0.07 and 0.05. NT-proBNP is 993. White blood cell count is 14.4, hemoglob in 9.1. Potassium 5.2, BUN is 59, creatinine is 2.06. Assessment And Recommendation: 1.Chest pain, atypical, however, gets relieved with nitroglycerin. This is unlikely to be cardiac i n etiology as this patient had a cardiac catheterization that showed normal coronary arteries as repo rted in the system by Dr. Joseph in 2018. At this point, given the fact that her creatinine is eleva shira, I recommend further evaluation with cardiac nuclear stress test. If that is negative, no furthe r workup to be done. 2.Hypertension. Blood pressure is acceptable. Continue current management. Thank you for the courtesy of this consultation. /FREDDY Voice ID: [id number] Report ID: [id number]
[2019-09-07] MEDS: RIVAROXABAN 10 MG TABLET PO SCH (17:41)
[2019-09-07] MEDS: METFORMIN HCL 500 MG TAB PO SCH (17:42)
[2019-09-07] MEDS ORDERED: RIVAROXABAN 10 MG TABLET PO SCH (18:00)
[2019-09-07] MEDS: ATORVASTATIN 80 MG TAB PO SCH (21:23)
[2019-09-07] MEDS: cloNIDine HCL 0.1 MG TAB PO SCH (21:23)
[2019-09-08] MEDS: NITROGLYCERIN 1 GM PKT TD SCH ×4 (00:14→17:35)
[2019-09-08] MEDS ORDERED: DIGOXIN 0.25 MG/ML AMP IV ONE (02:51)
[2019-09-08] MEDS: LEVOTHYROXINE SOD 0.05 MG TABLET PO SCH (06:00)
[2019-09-08] MEDS ORDERED: AMIODARONE HCL 150 MG in D5W 100 ML IV STA (06:49)
[2019-09-08] MEDS ORDERED: AMIODARONE HCL 150 MG/3 ML INJ IV ONE (07:00)
[2019-09-08] MEDS ORDERED: D5W 100 ML IV ONE (07:00)
[2019-09-08] MEDS ORDERED: AMIODARONE IN DEXTROSE,ISO-OSM 360 MG/200 ML BAG IV ONE (07:01)
[2019-09-08] MEDS ORDERED: AMIODARONE HCL 450 MG in D5W 241 ML IV SCH (07:15)
[2019-09-08] MEDS: TAMSULOSIN 0.4 MG SR CAP PO SCH (09:00)
[2019-09-08] MEDS: PANTOPRAZOLE 40MG TABLET PO SCH (09:00)
[2019-09-08] MEDS: ASPIRIN 81 MG CHEWABLE TABLET PO SCH (09:00)
[2019-09-08] MEDS: NEBIVOLOL HCL 20 MG TABLET PO SCH ×2 (09:00→20:17)
[2019-09-08] MEDS: allopurinoL 100 MG TAB PO SCH (09:00)
[2019-09-08] MEDS: COLCHICINE 0.6 MG TAB PO SCH (09:00)
[2019-09-08] MEDS: HYDRALAZINE HCL 25 MG TABLET PO SCH (09:00)
[2019-09-08] MEDS: FERROUS SULFATE 325 MG TAB PO SCH ×2 (09:00→20:16)
[2019-09-08] MEDS: VALSARTAN 160 MG TAB PO SCH (09:00)
[2019-09-08] MEDS: LIDOCAINE 4% PATCH TOP SCH (09:00)
[2019-09-08] MEDS: GABAPENTIN 300 MG CAP PO SCH ×3 (09:00→20:16)
--- NOTE | 2019-09-08 11:40 | P.HP ---
Certification for Inpatient Patient admitted to: Inpatient With expected LOS: >2 Midnights Practitioner: I am a practitioner with admitting privileges, knowledge of patient current condition, hospital course, and medical plan of care. Services: Services provided to patient in accordance with Admission requirements found in Title 42 Section 412.3 of the Code of Federal Regulations Patient History Date of Service: 09/07/19 Reason for admission: CHEST PAIN History of Present Illness: MS. BRAVO HAS DM, UNCONTROLLED HTN. CKD-3, COMES WITH CHEST PAIN THAT IS PLEURITIC. I SAW HER AT LUNCH TIME ON . SHE HAS NO DYSPNEA. PAIN IS MORE WHEN SHE BREATHES DEEP. Allergies codeine phosphate [From Tylenol-Codeine #3] Allergy (Mild, Verified 09/07/19 03:31) Rash morphine Allergy (Mild, Verified 09/07/19 03:31) Hives/Rash acetaminophen [From Darvocet-N 100] Allergy (Verified 09/07/19 03:31) Rash codeine Allergy (Verified 09/07/19 03:31) Rash meperidine HCl [From Demerol] Allergy (Verified 09/07/19 03:31) Unknown propoxyphene napsylate [From Darvocet-N 100] Allergy (Verified 09/07/19 03:31) Nausea/Vomiting BACLOFEN Allergy (Severe, Uncoded 09/07/19 03:31) Unknown Hydrocodone-Acetaminophen Allergy (Severe, Uncoded 09/07/19 03:31) Itching/Hives/Rash Tape Allergy (Severe, Uncoded 09/07/19 03:31) Rash plastic Allergy (Uncoded 09/07/19 03:31) Unknown Home Medications: Gabapentin [Neurontin*] 300 mg PO TID 02/14/16 Azilsartan Medoxomil [Edarbi] 80 mg PO DAILY 03/22/19 Nebivolol HCl [Bystolic*] 20 mg PO BID 05/29/19 Atorvastatin Calcium [Lipitor] 80 mg PO BEDTIME #30 tab 06/09/19 Ranitidine [Zantac*] 150 mg PO BID #30 tab 06/09/19 Levothyroxine [Synthroid*] 0.05 mg PO DAILYAC tablet 06/10/19 allopurinoL [Zyloprim*] 100 mg PO DAILY tab 06/10/19 Albuterol Inhaler [Ventolin Inhaler] 2 puff IH Q6H PRN 09/07/19 Aspirin Chewable [Aspirin Chewable*] 81 mg PO DAILY 09/07/19 Calcium Carbonate [Calcium] 500 mg PO DAILY 09/07/19 Calcium Carbonate/Vitamin D3 [Calcium 600-Vit D3 500 Softgel] 1 cap PO DAILY 09/07/19 Cholecalciferol (Vitamin D3) [Vitamin D3] 125 mcg PO DAILY 09/07/19 Clonidine HCl [Catapres*] 0.2 mg PO BEDTIME 09/07/19 Colchicine [Colcrys *] 0.6 mg PO DAILY 09/07/19 Ferrous Sulfate [Feosol] 325 mg PO BID 09/07/19 Hydralazine [Apresoline*] 100 mg PO TID 09/07/19 Melatonin 10 mg PO BEDTIME PRN 09/07/19 Metformin HCl [Glucophage*] 500 mg PO DAILY AT SUPPER 09/07/19 Pantoprazole [Protonix Tab] 40 mg PO DAILY 09/07/19 Rivaroxaban [Xarelto] 20 mg PO DAILY 6PM 09/07/19 Tamsulosin [Flomax] 0.4 mg PO DAILY 09/07/19 Ticagrelor [Brilinta*] 1 tab PO BID 09/07/19 Torsemide 20 mg PO DAILY 09/07/19 cloNIDine HCL [Catapres] 0.3 mg PO BIDAC 09/07/19 - Past Medical/Surgical History Has patient received pneumonia vaccine in the past: Yes Diabetic: No -: hypertension -: hyperlipidemia -: hypothyroid -: gout -: appendectomy -: cholecystectomy -: jaqueline -: appe -: knee surg x2 -: wrist surg x3 -: surg on chin, not sure what it was -: L Knee replacement -: appendectomy -: Cholecystectomy - Family History Brother -: Heart disease, Hypertension, Diabetes, Liver disease, Kidney disease Father -: Lung disease Mother -: Heart disease, Hypertension, Blood disorders - Social History Smoking Status: Never smoker Alcohol use: No CD- Drugs: No Caffeine use: No Place of Residence: Home Review of Systems 10-point ROS is otherwise unremarkable Respiratory: Pleuritic Pain, As per HPI Physical Examination - Vital Signs Temperature: 97.4 F Blood Pressure: 138/54 Pulse: 75 Respirations: 18 Pulse Ox (%): 100 - Physical Exam General: Moderate distress HEENT: Atraumatic, PERRLA, Mucous membr. moist/pink, EOMI, Sclerae nonicteric Neck: Supple, 2+ carotid pulse no bruit, No LAD, Without JVD or thyroid abn ormality Respiratory: Clear to auscultation bilaterally, Normal air movement Cardiovascular: Regular rate/rhythm, Normal S1 S2 Gastrointestinal: Normal bowel sounds, No tenderness Musculoskeletal: No tenderness Integumentary: No rashes Neurological: Normal gait, Normal speech, Normal strength at 5/5 x4 extr, Normal tone, Normal affect Lymphatics: No axilla or inguinal lymphadenopathy Assessment and Plan - Problems (Diagnosis) (1) Chest pain Onset Date: 12/02/16 Current Visit: No Status: Acute Plan: ATYPICAL PAIN. COSTOCHONDRITIS. MAY NOT BE CARDIAC. Qualifiers: Chest pain type: intercostal pain Qualified Code(s): R07.82 - Intercostal pain (2) Diabetes Current Visit: No Status: Chronic Qualifiers: Diabetes mellitus type: type 2 Diabetes mellitus detention insulin use: without detention use Diabetes mellitus complication status: with circulatory complication Diabetes mellitus complication detail: with other circulatory complications Qualified Code(s): E11.59 - Type 2 diabetes mellitus with other circulatory complications (3) CKD stage 3 due to type 2 diabetes mellitus Current Visit: Yes Status: Chronic Plan: WILL REDUCE THE LEVEL IF IMPROVES WITH HYDRATION. SHE HAS BEEN ON MULTIPLE MEDS FOR HTN IT HAS BEEN DIFFICULT TO CONTROL. SHE HAS BEEN FULLY CHECKED FOR SECONDARY CAUSES OF BP. - Advance Directives Does patient have a Living Will: No Does patient have a Durable POA for Healthcare: Yes
--- NOTE | 2019-09-08 11:56 | P.PN ---
Subjective Date of Service: 09/08/19 Chief Complaint: A FIB LAST NIGHT Subjective: Improving LAST NIGHT WENT INTO A FIB. HER BYSTOLIC WAS HELD BP WAS LOW. SHE IN ICU NOW CONVERTED BACK TO SINUS ON AMIODARONE DRIP. SHE IS STABLE TO GO TO FLOOR AND DC IN AM AFTER CKD IS STABLIIZED AND BP IS BETTER. Review of Systems 10-point ROS is otherwise unremarkable General: Weakness Physical Examination - Vital Signs Temperature: 97.4 F Blood Pressure: 138/54 Pulse: 75 Respirations: 18 Pulse Ox (%): 100 - Physical Exam General: Alert, Mild distress, Obese HEENT: Atraumatic, PERRLA, EOMI Neck: Supple, JVD not distended Respiratory: Clear to auscultation bilaterally, Normal air movement Cardiovascular: Regular rate/rhythm, Normal S1 S2 Gastrointestinal: Normal bowel sounds, No tenderness Musculoskeletal: No tenderness Integumentary: No rashes Neurological: Normal speech, Normal tone, Normal affect Lymphatics: No axilla or inguinal lymphadenopathy - Studies Medications List Reviewed: Yes Assessment And Plan - Current Problems (Diagnosis) (1) Chest pain Onset Date: 12/02/16 Current Visit: No Status: Acute Plan: ATYPICAL PAIN. COSTOCHONDRITIS. MAY NOT BE CARDIAC. Qualifiers: Chest pain type: intercostal pain Qualified Code(s): R07.82 - Intercostal pain (2) Diabetes Current Visit: No Status: Chronic Qualifiers: Diabetes mellitus type: type 2 Diabetes mellitus technician terminal and repeater insulin use: without nursing home use Diabetes mellitus complication status: with circulatory complication Diabetes mellitus complication detail: with other circulatory complications Qualified Code(s): E11.59 - Type 2 diabetes mellitus with other circulatory complications (3) CKD stage 3 due to type 2 diabetes mellitus Current Visit: Yes Status: Chronic Plan: WILL REDUCE THE LEVEL IF IMPROVES WITH HYDRATION. SHE HAS BEEN ON MULTIPLE MEDS FOR HTN IT HAS BEEN DIFFICULT TO CONTROL. SHE HAS BEEN FULLY CHECKED FOR SECONDARY CAUSES OF BP. (4) Atrial fibrillation Current Visit: No Status: Chronic Plan: CONTINUE MEDS. BACK ON SMALL DOSE OF BYSTOLIC IF NOT ABLE TO TOLERATE REGULAR DOSE.
[2019-09-08] MEDS: METFORMIN HCL 500 MG TAB PO SCH ×2 (17:00→17:23)
[2019-09-08] MEDS: AMIODARONE HCL 200 MG TAB PO SCH (17:21)
[2019-09-08] MEDS: RIVAROXABAN 10 MG TABLET PO SCH (17:24)
[2019-09-08] MEDS ORDERED: ACETAMINOPHEN 325 MG TABLET PO PRN (19:09)
[2019-09-08] MEDS: cloNIDine HCL 0.1 MG TAB PO SCH (20:16)
[2019-09-08] MEDS: ATORVASTATIN 80 MG TAB PO SCH (20:16)
[2019-09-09] MEDS: LEVOTHYROXINE SOD 0.05 MG TABLET PO SCH (05:38)
[2019-09-09] MEDS: NEBIVOLOL HCL 20 MG TABLET PO SCH (09:00)
[2019-09-09 09:16] VITALS: O2SAT 97
[2019-09-09] MEDS: COLCHICINE 0.6 MG TAB PO SCH (09:49)
[2019-09-09] MEDS: GABAPENTIN 300 MG CAP PO SCH (09:49)
[2019-09-09] MEDS: TAMSULOSIN 0.4 MG SR CAP PO SCH (09:49)
[2019-09-09] MEDS: FERROUS SULFATE 325 MG TAB PO SCH (09:49)
[2019-09-09] MEDS: allopurinoL 100 MG TAB PO SCH (09:49)
[2019-09-09] MEDS: PANTOPRAZOLE 40MG TABLET PO SCH (09:50)
[2019-09-09] MEDS: ASPIRIN 81 MG CHEWABLE TABLET PO SCH (09:50)
[2019-09-09] MEDS: AMIODARONE HCL 200 MG TAB PO SCH (09:50)
[2019-09-09] MEDS: VALSARTAN 160 MG TAB PO SCH (09:50)
[2019-09-09] MEDS: LIDOCAINE 4% PATCH TOP SCH (09:52)
[2019-09-09] MEDS ORDERED: NEBIVOLOL HCL 5 MG TAB PO SCH (10:00)
[2019-09-09 10:36] LABS: Absolute Lymphocytes (CBC) 1.6 K/uL (0.7-4.9); Basophils % 0.6 % (0-1.3); Hematocrit 29.1 % (36.0-45.0); MPV 9.3 fL (7.6-11.3); RBC Red Blood Cell Count 3.07 M/uL (3.86-4.86)
[2019-09-09 10:48] LABS: Potassium 5.1 mmol/L (3.5-5.1)
--- NOTE | 2019-09-09 12:59 | EKG ---
Test Date: 2019-09-08 Test Time: 09:32:14 Rehabilitation Tech: MAGGIE MEASUREMENT RESULTS: Intervals: Rate: 67 MN: 122 QRSD: 134 QT: 438 QTc: 462 [place]: P: 81 MN: 122 QRS: -31 T: 59 INTERPRETIVE STATEMENTS: Normal sinus rhythm with sinus arrhythmia Left axis deviation Right bundle branch block Abnormal ECG Electronically Signed On 09-09-19 12:58:23 CDT by Renaldo Mcleod
--- NOTE | 2019-09-09 13:00 | EKG ---
Test Date: 2019-09-08 Test Time: 02:34:46 Manager Of Housekeeping: RT-O MEASUREMENT RESULTS: Intervals: Rate: 133 PA: QRSD: 134 QT: 352 QTc: 523 [place]: P: PA: QRS: -40 T: 87 INTERPRETIVE STATEMENTS: Atrial fibrillation with rapid ventricular response Left axis deviation Right bundle branch block Minimal voltage criteria for LVH, may be normal variant Abnormal ECG Electronically Signed On 09-09-19 12:59:23 CDT by Renlado Mcleod
--- NOTE | 2019-09-09 13:02 | EKG ---
Test Date: 2019-09-07 Test Time: 12:00:53 Supervisor Nut Processing: MAGGIE MEASUREMENT RESULTS: Intervals: Rate: 102 [place]: 122 QRSD: 132 QT: 390 QTc: 508 [place]: P: 92 CO: 122 QRS: -55 T: 90 INTERPRETIVE STATEMENTS: Sinus tachycardia Left axis deviation Right bundle branch block Abnormal ECG Electronically Signed On 09-09-19 13:02:29 CDT by Renaldo Mcleod
[2019-09-09 13:35] VITALS: BP 158/67; TEMP 97.9
--- NOTE | 2019-09-11 15:13 | EDPHYS ---
Physician Documentation [facility] Name: Bharati Lancaster Age: 79 yrs Sex: Female : 1940 Arrival Date: 09/06/2019 Time: 22:08 Bed 6 Private MD: ED Physician Cesar Shah HPI: 09/05 22:21 This 79 yrs old Female presents to ER via EMS with complaints of chest pain. ma2 22:21 The patient or guardian reports chest pain that is located primarily in the epigastric ma2 area. Associated signs and symptoms: Pertinent negatives: diaphoresis, headache, lower extremity swelling, lightheadedness. The chest pain is described as aching. Severity of pain: At its worst the pain was moderate in the emergency department the pain is unchanged. The patient has not experienced similar symptoms in the past. Historical: - Allergies: 22:14 ACETAMINOPHEN; mg2 22:14 BACLOFEN; mg2 22:14 Codeine; mg2 22:14 Darvocet-N 100; mg2 22:14 Demerol; mg2 22:14 Hydrocodone-Acetaminophen; mg2 22:14 Morphine; mg2 22:14 plastic tape; mg2 - PMHx: 22:14 Atrial Fib; Cervical radicular pain; CHF; Degenative join disease; GERD; Gout; mg2 Hyperlipidemia; Hypertension; Hypothyroidism; - PSHx: 22:14 Knee surgery; Carpal Tunnel Repair; mg2 - Immunization history:: Flu vaccine is not up to date. - Social history:: Smoking status: Patient/guardian denies using tobacco, Patient/guardian denies using alcohol, street drugs, IV drugs, Patient/guardian denies using The patient lives with family. - Family history:: not pertinent. ROS: 22:21 Constitutional: Negative for fever, chills, and weight loss. ma2 22:21 All other systems are negative. Exam: 22:21 Constitutional: This is a well developed, well nourished patient who is awake, alert, ma2 and in no acute distress. ENT: Nares patent. No nasal discharge, no septal abnormalities noted. Tympanic membranes are normal and external auditory canals are clear. Oropharynx with no redness, swelling, or masses, exudates, or evidence of obstruction, uvula midline. Mucous membranes moist. Neck: Trachea midline, no thyromegaly or masses palpated, and no cervical lymphadenopathy. Supple, full range of motion without nuchal rigidity, or vertebral point tenderness. No Meningismus. Chest/axilla: Normal chest wall appearance and motion. Nontender with no deformity. No lesions are appreciated. Cardiovascular: Regular rate and rhythm with a normal S1 and S2. No gallops, murmurs, or rubs. Normal PMI, no JVD. No pulse deficits. Respiratory: Lungs have equal breath sounds bilaterally, clear to auscultation and percussion. No rales, rhonchi or wheezes noted. No increased work of breathing, no retractions or nasal flaring. Abdomen/GI: Soft, non-tender, with normal bowel sounds. No distension or tympany. No guarding or rebound. No evidence of tenderness throughout. Back: No spinal tenderness. No costovertebral tenderness. Full range of motion. Vital Signs: 22:11 BP 137 / 51; Pulse 98; Resp 18; Temp 99; Pulse Ox 95% on R/A; Weight 90.72 kg; Height 5 mg2 ft. 6 in. (167.64 cm); Pain 8/10; 09/06 00:09 BP 115 / 51; Pulse 92; Resp 18; Pulse Ox 96% on R/A; mg2 01:32 BP 112 / 59; Pulse 86; Resp 18; Temp 99; Pulse Ox 94% on R/A; mg2 09/05 22:11 Body Mass Index 32.28 (90.72 kg, 167.64 cm) mg2 MDM: 09/05 22:17 Patient medically screened. ma2 22:21 Differential diagnosis: abnormal EKG, gastroesophageal reflux disease (GERD), stable ma2 angina. 23:16 GLORIA Risk Score: 1 - ASA use in past 7 days. Data reviewed: vital signs, nurses notes. ma2 Counseling: I had a detailed discussion with the patient and/or guardian regarding: the historical points, exam findings, and any diagnostic results supporting the discharge/admit diagnosis, the presence of at least one elevated blood pressure reading (>120/80) during this emergency department visit, the need for outpatient follow up. ED course: discussed with dr. morton. 23:16 ED course: chest pain resolved, given asa by ems. ma2 09/05 22:11 Order name: Basic Metabolic Panel; Complete Time: 22:59 mg2 09/05 22:11 Order name: CBC with Diff; Complete Time: 22:35 [facility] 09/05 22:11 Order name: LFT's; Complete Time: 22:59 [facility] 09/05 22:11 Order name: Magnesium; Complete Time: 22:59 [facility] 09/05 22:11 Order name: NT PRO-BNP; Complete Time: 22:59 [facility] 09/05 22:11 Order name: PT-INR; Complete Time: 22:35 [facility] 09/05 22:11 Order name: Troponin (emerg Dept Use Only); Complete Time: 22:59 [facility] 09/05 22:37 Order name: Flu ma2 09/05 22:37 Order name: Strep al2 09/05 22:38 Order name: Influenza Screen (A EDMO 09/05 22:43 Order name: COVID-19 [facility] 09/05 23:25 Order name: Basic Metabolic Panel [facility] 09/05 23:25 Order name: Basic Metabolic Panel [facility] 09/05 22:11 Order name: XRAY Chest (1 view) [facility] 09/05 22:11 Order name: EKG; Complete Time: 22:12 [facility] 09/05 23:24 Order name: Consistent Carb (ADA) [address] EDMO 09/05 23:24 Order name: EKG Electrocardiogram [facility] 09/05 23:25 Order name: EKG Electrocardiogram [facility] 09/05 23:25 Order name: CBC with Automated Diff [facility] 09/05 23:25 Order name: CBC with Automated Diff [facility] 09/05 23:25 Order name: Troponin I [facility] 09/05 23:25 Order name: Troponin I [facility] 09/05 23:25 Order name: Troponin I [facility] 09/05 22:11 Order name: Cardiac monitoring; Complete Time: 22: [facility] 09/05 22:11 Order name: EKG - Nurse/Tech; Complete Time: 22:30 [facility] 09/05 22:11 Order name: IV Saline Lock; Complete Time: 22:30 [facility] 09/05 22:11 Order name: Labs collected and sent; Complete Time: 22: [facility] 09/05 22:11 Order name: O2 Per Protocol; Complete Time: 22:31 [facility] 09/05 22:11 Order name: O2 Sat Monitoring; Complete Time: 22: [facility] 09/05 22:37 Order name: Document PUI#; Complete Time: 00:07 [facility] 09/05 22:37 Order name: Droplet/Contact Precautions; Complete Time: 22:42 ma2 09/05 23:25 Order name: EKG Electrocardiogram EDMS 09/05 23:25 Order name: EKG Electrocardiogram EDMS Administered Medications: 22:40 Not Given (Physician Discretion): Ondansetron (Zofran) 4 mg PO once mg2 22:40 Drug: TORadol 30 mg Route: IVP; Site: right wrist; mg2 09/06 00:31 Follow up: Response: No adverse reaction mg2 09/05 22:41 Not Given (Physician Discretion): morphine 4 mg IVP once; RASS on ADMIN: Combtv4, Very mg2 Agttd3, Agttd2, Rstlss1, AlertClm0, Drwsy-1, Lt Sdtn-2, Mod Sdtn-3, Dp Sdtn-4, UnArsble-5 22:42 Drug: Zofran (Ondansetron) 4 mg Route: IVP; Site: right wrist; mg2 09/06 00:31 Follow up: Response: No adverse reaction mg2 09/05 23:50 Drug: Lovenox 100 mg Route: Sub-Q; Site: left lower abdomen; jb4 09/06 00:31 Follow up: Response: No adverse reaction mg2 00:00 Drug: AZITHromycin 500 mg Route: IVPB; Infused Over: 1 hrs; Site: right wrist; jb4 01:26 Follow up: Response: No adverse reaction; IV Status: Completed infusion mg2 Disposition: 09/06/19 23:18 Hospitalization ordered by Casa Morton for Inpatient Admission. Preliminary diagnosis is Non-ST elevation (NSTEMI) myocardial infarction. - Bed requested for Telemetry/MedSurg (Inpatient). - Status is Inpatient Admission. mg2 - Condition is Stable. - Problem is new. - Symptoms are unchanged. Signatures: Dispatcher [employer] EDMS Kelsey Dunham RN RN tl1 Humberto Maddox RN RN jb4 Cesar Shah MD MD ma2 Ermias Rubio RN RN mg2 Corrections: (The following items were deleted from the chart) 00:21 09/05 23:18 Hospitalization Ordered by Casa Morton MD for Inpatient Admission. tl1 Preliminary diagnosis is Non-ST elevation (NSTEMI) myocardial infarction. Bed requested for Telemetry/MedSurg (Inpatient). Status is Inpatient Admission. Condition is Stable. Problem is new. Symptoms are unchanged. ma2 09/06 01:35 00:21 09/06/2019 23:18 Hospitalization Ordered by Casa Morton MD for Inpatient mg2 Admission. Preliminary diagnosis is Non-ST elevation (NSTEMI) myocardial infarction. Bed requested for Telemetry/MedSurg (Inpatient). Status is Inpatient Admission. Condition is Stable. Problem is new. Symptoms are unchanged. tl1
--- NOTE | 2019-09-11 15:13 | ER ---
Nurse's Notes [facility] Name: Bharati Lancaster Age: 79 yrs Sex: Female : 1940 Arrival Date: 09/06/2019 Time: 22:08 Bed 6 Private MD: Diagnosis: Non-ST elevation (NSTEMI) myocardial infarction Presentation: 09/05 22:11 Chief complaint: EMS states: she has shortness of breath and sharp chest pain radiating mg2 to the back since 3 pm. Coronavirus screen: Proceed with normal triage. Patient denies a cough. Patient reports shortness of breath or difficulty breathing. Patient denies measured and/or subjective temperature greater than 100.4F prior to today's visit. Patient denies travel on a cruise ship or to a country the [facility] currently lists as an affected area. Patient denies contact with known and/or suspected case of COVID-19. Ebola Screen: No symptoms or risks identified at this time. Initial Sepsis Screen: Does the patient meet any 2 criteria? No. Patient's initial sepsis screen is negative. Does the patient have a suspected source of infection? No. Patient's initial sepsis screen is negative. Risk Assessment: Do you want to hurt yourself or someone else? Patient reports no desire to harm self or others. Onset of symptoms was September 06, 2019 at 15:00. 22:11 Method Of Arrival: EMS: [facility] 22:11 Acuity: GONZALEZ 2 mg2 22:11 Care prior to arrival: Medication(s) given: ASA, 325 mg, Nitroglycerin, 0.4 mg SL mg2 zofran 4 mg. Triage Assessment: 22:14 General: Appears in no apparent distress. comfortable, Behavior is calm, cooperative. mg2 Pain: Complains of pain in chest Pain radiates to back Pain currently is 8 out of 10 on a pain scale. Quality of pain is described as aching. EENT: No signs and/or symptoms were reported regarding the EENT system. Neuro: Level of Consciousness is awake, alert, obeys commands, Oriented to person, place, time, situation. Cardiovascular: Capillary refill < 3 seconds Patient's skin is warm and dry. Respiratory: Reports shortness of breath Airway is patent Respiratory effort is even, unlabored, Respiratory pattern is regular, symmetrical. GI: No signs and/or symptoms were reported involving the gastrointestinal system. : No signs and/or symptoms were reported regarding the genitourinary system. Derm: Skin is intact, is healthy with good turgor, Skin is pink, warm \T\ dry. normal. Musculoskeletal: Circulation, motion, and sensation intact. Capillary refill < 3 seconds. Historical: - Allergies: 22:14 ACETAMINOPHEN; mg2 22:14 BACLOFEN; mg2 22:14 Codeine; mg2 22:14 Darvocet-N 100; mg2 22:14 Demerol; mg2 22:14 Hydrocodone-Acetaminophen; mg2 22:14 Morphine; mg2 22:14 plastic tape; mg2 - PMHx: 22:14 Atrial Fib; Cervical radicular pain; CHF; Degenative join disease; GERD; Gout; mg2 Hyperlipidemia; Hypertension; Hypothyroidism; - PSHx: 22:14 Knee surgery; Carpal Tunnel Repair; mg2 - Immunization history:: Flu vaccine is not up to date. - Social history:: Smoking status: Patient/guardian denies using tobacco, Patient/guardian denies using alcohol, street drugs, IV drugs, Patient/guardian denies using The patient lives with family. - Family history:: not pertinent. Screenin:16 Abuse screen: Denies threats or abuse. Denies injuries from another. Nutritional mg2 screening: No deficits noted. Tuberculosis screening: No symptoms or risk factors identified. Fall Risk IV access (20 points). Assessment: 22:15 General: see triage note. mg2 22:50 Reassessment: daughter called- abby- [phone]. mg2 23:00 Reassessment: Patient appears in no apparent distress at this time. Patient and/or mg2 family updated on plan of care and expected duration. Pain level reassessed. Patient is alert, oriented x 3, equal unlabored respirations, skin warm/dry/pink. provider ordered to cancel flu and strep. 23:47 Reassessment: Patient's daughter called, Madelin, who has POA for patient; Updated on lp1 plan of care for patient admission; States PCP is Dr. Morton and Dr. 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 09/06 00:38 Reassessment: Patient appears in no apparent distress at this time. Patient and/or mg2 family updated on plan of care and expected duration. Pain level reassessed. Patient is alert, oriented x 3, equal unlabored respirations, skin warm/dry/pink. 4th floor nurse is not ready to take report yet. Vital Signs: 09/05 22:11 BP 137 / 51; Pulse 98; Resp 18; Temp 99; Pulse Ox 95% on R/A; Weight 90.72 kg; Height 5 mg2 ft. 6 in. (167.64 cm); Pain 8/10; 09/06 00:09 BP 115 / 51; Pulse 92; Resp 18; Pulse Ox 96% on R/A; mg2 01:32 BP 112 / 59; Pulse 86; Resp 18; Temp 99; Pulse Ox 94% on R/A; mg2 09/05 22:11 Body Mass Index 32.28 (90.72 kg, 167.64 cm) mg2 ED Course: 09/05 22:08 Patient arrived in ED. lp1 22:10 Ermias Rubio, RN is Primary Nurse. mg2 22:13 Triage completed. mg2 22:15 Arm band placed on. mg2 22:16 Patient has correct armband on for positive identification. engine monitor on. Pulse mg2 ox on. NIBP on. 22:16 No provider procedures requiring assistance completed. Maintain EMS IV. Dressing mg2 intact. Good blood return noted. Site clean \T\ dry. Gauge \T\ site: 20 \T\ right Wrist. 22:17 Cesar Shah MD is Attending Physician. ma2 22:36 XRAY Chest (1 view) In Process Unspecified. EDMS 23:18 Casa Morton MD is Hospitalizing Provider. ma2 09/06 01:33 Patient admitted, IV remains in place. mg2 Administered Medications: 09/05 22:40 Not Given (Physician Discretion): Ondansetron (Zofran) 4 mg PO once mg2 22:40 Drug: TORadol 30 mg Route: IVP; Site: right wrist; mg2 09/06 00:31 Follow up: Response: No adverse reaction mg2 09/05 22:41 Not Given (Physician Discretion): morphine 4 mg IVP once; RASS on ADMIN: Combtv4, Very mg2 Agttd3, Agttd2, Rstlss1, AlertClm0, Drwsy-1, Lt Sdtn-2, Mod Sdtn-3, Dp Sdtn-4, UnArsble-5 22:42 Drug: Zofran (Ondansetron) 4 mg Route: IVP; Site: right wrist; mg2 09/06 00:31 Follow up: Response: No adverse reaction mg2 09/05 23:50 Drug: Lovenox 100 mg Route: Sub-Q; Site: left lower abdomen; jb4 09/06 00:31 Follow up: Response: No adverse reaction mg2 00:00 Drug: AZITHromycin 500 mg Route: IVPB; Infused Over: 1 hrs; Site: right wrist; jb4 01:26 Follow up: Response: No adverse reaction; IV Status: Completed infusion mg2 Outcome: 09/05 23:18 Decision to Hospitalize by Provider. ma2 09/06 01:31 Admitted to Tele accompanied by tech, via wheelchair, room 415, with chart, Report mg2 called to TOI Grady Condition: stable Instructed on the need for admit, Demonstrated understanding of instructions. 01:35 Patient left the ED. mg2 Signatures: Dispatcher [employer] EDMarilyn Ceballos RN RN lp1 Humberto Maddox RN RN jb4 Cesar Shah MD MD ma2 Ermias Rubio RN RN mg2
--- NOTE | 2019-09-15 14:11 | P.DS ---
Admission Date: 09/06/19 Discharge Date: 09/15/19 Disposition: ROUTINE DISCHARGE Discharge Condition: FAIR Reason for Admission: A FIB LAST NIGHT - Problems (1) Chest pain Onset Date: 12/02/16 Status: Acute Qualifiers: Chest pain type: intercostal pain Qualified Code(s): R07.82 - Intercostal pain (2) Diabetes Status: Chronic Qualifiers: Diabetes mellitus type: type 2 Diabetes mellitus long-term insulin use: without exterminator helper use Diabetes mellitus complication status: with circulatory complication Diabetes mellitus complication detail: with other circulatory complications Qualified Code(s): 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 BRAVO HAS DM, UNCONTROLLED HTN. CKD-3, COMES WITH CHEST PAIN THAT IS PLEURITIC. I SAW HER AT LUNCH TIME ON . SHE HAS NO DYSPNEA. PAIN IS MORE WHEN SHE BREATHES DEEP. Hospital Course: MS. BRAVO COMES WITH CHEST PAIN THAT WAS PLEURITIC IN NATURE. LATER GOES INTO A FIB. NEEDED AMIODARONE DRIP. SHE IS STABLE TO GO HOME ON AMIODARONE PO. HER BP MEDS WERE ON HOLD BP WAS LOW. HER WBC WAS MILD HIGH BUT THERE WAS NO BACTERIAL INFECTION DETECTED. Vital Signs/Physical Exam: Temp Pulse Resp BP Pulse Ox 97.9 F 75 18 158/67 H 96 09/09/19 12:00 09/09/19 12:00 09/09/19 12:00 09/09/19 12:00 09/09/19 12:00 Laboratory Data at Discharge: WBC 11.6 K/uL (4.3-10.9) H D 09/09/19 10:28 Hgb 9.4 g/dL (12.0-15.0) L 09/09/19 10:28 Hct 29.1 % (36.0-45.0) L 09/09/19 10:28 Plt Count 247 K/uL (152-406) 09/09/19 10:28 PT 11.4 SECONDS (9.5-12.5) 09/06/19 22:15 INR 0.97 09/06/19 22:15 Sodium 141 mmol/L (136-145) 09/09/19 10:28 Potassium 5.1 mmol/L (3.5-5.1) 09/09/19 10:28 BUN 44 mg/dL (7-18) H 09/09/19 10:28 Creatinine 1.70 mg/dL (0.55-1.3) H 09/09/19 10:28 Glucose 110 mg/dL (74-106) H 09/09/19 10:28 Magnesium 2.2 mg/dL (1.8-2.4) 09/06/19 22:15 Total Bilirubin 0.2 mg/dL (0.2-1.0) 09/06/19 22:15 AST 21 U/L (15-37) 09/06/19 22:15 ALT 23 U/L (12-78) 09/06/19 22:15 Alkaline Phosphatase 96 U/L (45-117) 09/06/19 22:15 Troponin I < 0.02 ng/mL (0.0-0.045) 09/08/19 09:12 Home Medications: Gabapentin [Neurontin*] 300 mg PO TID 02/14/16 Azilsartan Medoxomil [Edarbi] 80 mg PO DAILY 03/22/19 Nebivolol HCl [Bystolic*] 20 mg PO BID 05/29/19 Atorvastatin Calcium [Lipitor] 80 mg PO BEDTIME #30 tab 06/09/19 Ranitidine [Zantac*] 150 mg PO BID #30 tab 06/09/19 Levothyroxine [Synthroid*] 0.05 mg PO DAILYAC tablet 06/10/19 allopurinoL [Zyloprim*] 100 mg PO DAILY tab 06/10/19 Albuterol Inhaler [Ventolin Inhaler*] 2 puff IH Q6H PRN 09/07/19 Calcium Carbonate [Calcium] 500 mg PO DAILY 09/07/19 Calcium Carbonate/Vitamin D3 [Calcium 600-Vit D3 500 Softgel] 1 cap PO DAILY 09/07/19 Cholecalciferol (Vitamin D3) [Vitamin D3] 125 mcg PO DAILY 09/07/19 Clonidine HCl [Catapres*] 0.2 mg PO BEDTIME 09/07/19 Colchicine [Colcrys *] 0.6 mg PO DAILY 09/07/19 Ferrous Sulfate [Ferrous Sulfate*] 325 mg PO BID 09/07/19 Melatonin 10 mg PO BEDTIME PRN 09/07/19 Pantoprazole [Protonix Tab*] 40 mg PO DAILY 09/07/19 Rivaroxaban [Xarelto*] 20 mg PO DAILY 6PM 09/07/19 Tamsulosin [Flomax*] 0.4 mg PO DAILY 09/07/19 Ticagrelor [Brilinta*] 1 tab PO BID 09/07/19 cloNIDine HCL [Catapres*] 0.3 mg PO BIDAC 09/07/19 Amiodarone HCl [Cordarone*] 200 mg PO DAILY #30 tab 09/09/19 New Medications: Amiodarone HCl [Cordarone*] 200 mg PO DAILY #30 tab Followup: Renaldo Mcleod MD [ACTIVE - CAN ADMIT] - Casa Morton MD [ACTIVE - CAN ADMIT] -
== END 2019-09-09 12:41 | disposition home or self-care (01) | DRG 313 ==
LOC: ER 22:05 → ERHOLD 23:22 → 4TH 09-07 01:32 → 3RD-ICU 09-08 06:30 → 2ND 09-08 21:00
PROVIDERS: ADMIT Internal Medicine; ATTEND Internal Medicine
DX: R07.82 Intercostal pain (principal); I48.91 Unspecified atrial fibrillation; I12.9 Hypertensive chronic kidney disease with stage 1 through stage 4 chronic kidney disease, or unspecified chronic kidney disease; N18.3 Chronic kidney disease, stage 3 (moderate); M94.0 Chondrocostal junction syndrome [Tietze]; E11.22 Type 2 diabetes mellitus with diabetic chronic kidney disease; Z91.048 Other nonmedicinal substance allergy status; Z91.09 Other allergy status, other than to drugs and biological substances; Z79.899 Other long term (current) drug therapy; Z79.890 Hormone replacement therapy; Z79.82 Long term (current) use of aspirin; Z79.84 Long term (current) use of oral hypoglycemic drugs; E78.5 Hyperlipidemia, unspecified; E03.9 Hypothyroidism, unspecified; Z90.49 Acquired absence of other specified parts of digestive tract; Z96.652 Presence of left artificial knee joint; E11.59 Type 2 diabetes mellitus with other circulatory complications; E66.9 Obesity, unspecified; Z68.32 Body mass index [BMI] 32.0-32.9, adult; Z88.6 Allergy status to analgesic agent; Z88.5 Allergy status to narcotic agent; Z20.828 Contact with and (suspected) exposure to other viral communicable diseases
CPT/HCPCS: 36415; 71045; 80048; 80076; 81003; 81015; 82947; 83735; 83880; 84484; 85025; 85610; 87086; 87088; 93005; 96365; 96372; 96375; 99285; J0282; J0456; J1160; J1650; J2405; J7030; J7060; U0002

== ENCOUNTER 2020-02-01 07:41 | Observation (INO) | payer OTHER ==
--- OUTSIDE RECORDS SUMMARY | 2020-02-01 08:05 | XMS REPORT | Clinical Summary ---
:1940 Author Organization [facility] Address [address] [place] [address] Care Team Providers Name Role Phone Aaron [...] Refills Start Date End Date Status allopurinol (ZYLOPRIM) Take 100 mg by 0 Active 100 MG tablet mouth daily. colchicine (COLCRYS) Take 0.6 mg by 0 Active 0.6 mg tablet mouth as needed. gabapentin (NEURONTIN) Take 300 mg by 0 Active 300 MG capsule mouth 3 (three) times daily. metFORMIN (GLUCOPHAGE) Take 500 mg by 0 Active 500 MG tablet mouth daily with dinner . nebivolol (BYSTOLIC) Take 20 mg by 0 Active 10 MG tablet mouth 2 (two) times daily . azilsartan medoxomil Take 80 mg by 0 Active (EDARBI) 80 mg Tab mouth daily . albuterol HFA Inhale 2 puffs 0 A ctive (VENTOLIN HFA) 90 by mouth via mcg/actuation inhaler inhaler every 6 (six) hours as needed for Wheezing. ranitidine (ZANTAC) Take 150 mg by 0 Active 150 MG capsule mouth every evening . levothyroxine Take 50 mcg by 0 A ctive (SYNTHROID, mouth Every LEVOTHROID) 50 MCG morning on an tablet empty stomach. cloNIDine HCl Take 1 tablet 0 05/29/2019 05/28/2020 Active (CATAPRES) 0.2 MG (0.2 mg total) tablet by mouth nightly. Additional Information Patient taking differently: 0.2 mg Oral 3 times daily, Reported on 08/30/2019 9:31 AM hydrALAZINE Take 1 tablet (100 0 05/29/2019 Active (APRESOLINE) 100 MG mg total) by mouth tablet 3 (three) times daily. atorvastatin Take 1 tablet (80 0 05/29/201905/28/ Active (LIPITOR) 80 MG mg total) by mouth 2020 tablet nightly. melatonin 10 mg Tab Take 10 mg by 0 05/29/2019 Active mouth nightly. pantoprazole Take 1 tablet (40 30 tablet 0 05/29/2019 Active (PROTONIX) 40 MG mg total) by mouth tablet daily. tamsulosin (FLOMAX) Take 1 capsule 0 05/30/2019 Active 0.4 mg Cap 24 hr (0.4 mg total) by capsule mouth daily. aspirin 325 MG Take 325 mg by 0 Active tablet mouth daily. ticagrelor Take 90 mg by 0 Activ e (BRILINTA) 90 mg mouth 2 (two) Tab tablet times daily. torsemide (DEMADEX) Take 20 mg by 0 Active 20 MG tablet mouth daily. amLODIPine Take 5 mg by mouth 0 05/15/ Discontinued (NORVASC) 2.5 MG daily . 2019 (Er ror) tablet azilsartan Take by mouth. 0 03/31/ Disc ontinued medoxomil 80 mg Tab 2018 cloNIDine HCl Take 0.2 mg by 0 05/29/ D iscontinued (Stop (CATAPRES) 0.2 MG mouth 3 (three) 2020 Taking at tablet times daily. Dischar ge) hydrALAZINE Take 100 mg by 0 05/29/ Dis continued (APRESOLINE) 100 MG mouth 2 (two) 2020 (Reorder) tablet times daily. rivaroxaban Take by mouth 0 05/29/ Disc ontinued (XARELTO) 20 mg Tab daily with dinner. 2 020 (Reorder) tablet torsemide (DEMADEX) Take 20 mg by 0 08/29/ Discontinued 10 MG tablet mouth daily . 2020 (Er ror) doxepin (SINEQUAN) Take 25 mg by 0 05/15/ Discontinued 25 MG capsule mouth nightly. 2020 ( Error) amLODIPine Take 5 mg by mouth 0 02/21/201905/17/ Discontinued (NORVASC) 5 MG daily. 2020 tablet ipratropium-albuter Take 3 mLs by 0 05/29/201908/29 / Discontinued ol (DUO-NEB) 0.5 nebulization every 2019 (Error) mg-3 mg(2.5 mg 4 (four) hours as base)/3 mL needed for nebulizer solution Wheezing for up to 360 days. cloNIDine HCl Take 1 tablet (0.3 0 05/30/201908/29/ Discontinued (CATAPRES) 0.3 MG mg total) by mouth 202 0 (Error) tablet 2 (two) times daily before meals. rivaroxaban Take 1 tablet (20 0 06/15/2019 Discontinued (XARELTO) 20 mg Tab mg total) by mouth 2 020 (Error) tablet daily with dinner. aspirin 81 MG Take 1 tablet (81 360 tablet 0 05/30/2019 Discontinued chewable tablet mg total) by mouth 2019 (Error) daily. benzonatate Take 1 capsule 20 capsule 0 05/29/201906/05/ E xpired (TESSALON) 100 MG (100 mg total) by 2019 capsule mouth 3 (three) times daily as needed for Cough for up to 7 days. ferrous sulfate 325 Take 1 tablet (325 0 05/29/201908/29/ Discontinued (65 FE) MG tablet mg total) by mouth 202 0 (Error) 2 (two) times daily with breakfast and dinner. guaiFENesin Take 1 tablet (600 0 05/29/201906/08/ (MUCINEX) 600 mg 12 mg total) by mouth 2 020 hr tablet 2 (two) times daily for 10 days. senna (SENOKOT) 8.6 Take 1 tablet (8.6 0 05/29/201908/29/ Discontinued mg tablet mg total) by mouth 2019 ( Error) nightly. ticagrelor Take 1 tablet (90 0 05/29/201906/13/ (BRILINTA) 90 mg mg total) by mouth 2020 Tab tablet 2 (two) times daily for 16 days. predniSONE Take 4 tablets (40 0 05/29/201906/03/ (DELTASONE) 10 MG mg total) by mouth 202 0 tablet daily for 5 days. Active Problems Problem [...] Encounters Date Type Specialty Care Team Description 09/07/2019 [facility] Khai Carrasco Canceled (Pro vider) Encounter MD Jarocho 09/07/2019 Lab Requisition Lab 09/06/2019 [facility] Cardiology Khai Carrasco Encounter MD Jarocho 09/06/2019 Hospital Pre-Admission Testing [...] ENDOS COPY MD Estiven 05/17/2019 Anesthesia Event Sania Ann MD Nazareth, Veeral Mehta, MD 05/17/2019 Surgery Virtual, PROCEDURE DONE Surgeon OUTSIDE OR 05/16/2019 Anesthesia Event Radhika Campos MD Brownewell, Tiffany Doan, MD 05/16/2019 Surgery Virtual, PROCEDURE DONE Surgeon OUTSIDE OR 05/15/2019 Travel 05/14/2019 [facility] General Internal ALMA ROSA Campbell (Primary Dx); - Encounter Medicine Karely 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); 05/29/2019 MD Sarahy Acute ischemic stroke (HCC); Nikki Zuniga, Stenosis of left carotid artery; Paroxysmal atrial fibrillation (HCC); Venkatasubba Aneurysm (HCC); Sharpe, Chethan Basilar artery aneurysm (HCC); Charles, Carotid steno sis, left; Cerebral hypoperfusion; Mina Flower Essential hype rtension; MD Sami Hypertensive crisis; Payal Barahonaena; MD Vilma Acute blood loss anemia; Kevin Antonio Symptomatic bradycardia MD Yvan 05/12/2019 Outside Orders Central Scheduling Khai Carrasco Cereb ral Jarocho fitzgerald MD nonruptured (Pr imary Dx) 03/31/2019 Anesthesia Event Morgan Liviaeve Taylor 03/31/2019 Surgery Virtual, PROCEDURE DONE Surgeon OUTSIDE OR 03/31/2019 Hospital Khai Carrasco Encounter MD Jarocho 03/31/2019 Orders Only Sravan Owens Cerebral aneury sm, nonruptured 03/29/2019 Outside Orders Central Scheduling Khai Carrasco Cereb ral aneurysmJarocho MD 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 01/31/2019 Social History Tobacco Use Types Packs/Day Years Used Date Former Smoker 1 Quit: 2017 Smokeless Tobacco: Never Used Alcohol Use Drinks/Week [...] Assigned at Date Recorded Not on file Last Filed Vital Signs Vital Sign Reading Time Taken Comments Blood Pressure 110/65 09/06/2019 11:36 AM CDT Pulse 62 09/06/2019 11:36 AM CDT Temperature 35.8 C (96.4 F) 09/06/2019 11:36 AM CDT Respiratory Rate 20 09/06/2019 11:36 AM CDT Oxygen Saturation 96% 09/06/2019 11:36 AM CDT Inhaled Oxygen Concentration 21% 05/28/2019 9:19 PM ACCESS DEVELOPER Weight 90.7 kg (200 lb) 08/30/2019 9:30 AM CDT Height 167.6 cm (5' 6") 08/30/2019 9:30 AM CDT Body Mass Index 32.28 08/30/2019 9:30 AM CDT Plan of Treatment Not on file Procedures Procedure Name Priority Date/Time Associated Comments Diagnosis TRANSFUSION SERVICE 09/07/2019 5:53 REPORT - SCAN PM CDT SARS-COV2/RT-PCR Routine 09/07/2019 12:01 Results for this ([facility]) AM CDT procedure are in the results section. ECG 12-LEAD Routine 09/06/2019 9:35 AM CDT Procedure Note - Interface, External Ris In - 09/06/2019 4:10 PM CDT Ventricular Rate 89 BPM Atrial Rate 89 BPM P-R Interval 126 ms QRS Duration 136 ms Q-T Interval 424 ms QTC Calculation(Bazett) 515 ms P [place] 85 degrees R [place] -40 degrees T [place] 64 degrees Normal sinus rhythm Left axis deviation Left ventricular hypertrophy with QRS widening Abnormal ECG When compared with ECG of 13:49, Right bundle branch block is no longer Present ECG 12-LEAD Routine 09/06/2019 9:35 Results for this AM CDT procedure are i n the results section. BASIC METABOLIC Routine 09/06/2019 9:34 Results for [...] RHYTHM STRIP - SCAN 05/31/2019 11:43 AM ACCESS DEVELOPER POCT-GLUCOSE METER Routine 05/29/2019 12:35 Resul ts for this PM ACCESS DEVELOPER procedure are i n the results section. POCT-GLUCOSE METER Routine 05/29/2019 7:40 Resul ts for this AM ACCESS DEVELOPER procedure are i n the results section. POCT-GLUCOSE METER Routine 05/28/2019 8:54 Resul ts for this PM ACCESS DEVELOPER procedure are i n the results section. POCT-GLUCOSE METER Routine 05/28/2019 5:20 Resul ts for this PM ACCESS DEVELOPER procedure are i n the results section. POCT-GLUCOSE METER Routine 05/28/2019 11:38 Resul ts for this AM ACCESS DEVELOPER procedure are i n the results section. POCT-GLUCOSE METER Routine 05/28/2019 7:25 Resul ts for this AM ACCESS DEVELOPER procedure are i n the results section. POCT-GLUCOSE METER Routine 05/27/2019 10:17 Resul ts for this PM ACCESS DEVELOPER procedure are i n the results section. HEMOGLOBIN AND Routine 05/27/2019 10:27 Results f or this HEMATOCRIT AM ACCESS DEVELOPER procedure are i n the results section. POCT-GLUCOSE METER Routine 05/26/2019 11:30 Resul ts for this PM ACCESS DEVELOPER procedure are i n the results section. POCT-GLUCOSE METER Routine 05/26/2019 11:54 Resul ts for this AM ACCESS DEVELOPER procedure are i n the results section. MAGNESIUM Routine 05/26/2019 5:18 Results for this AM ACCESS DEVELOPER procedure are i n the results section. BASIC METABOLIC Routine 05/26/2019 5:18 Results for this PANEL (7) AM ACCESS DEVELOPER procedure are i n the results section. HEMOGLOBIN AND Routine 05/26/2019 5:18 Results f or this HEMATOCRIT AM ACCESS DEVELOPER procedure are i n the results section. POCT-GLUCOSE METER Routine 05/25/2019 10:12 Resul ts for this PM ACCESS DEVELOPER procedure are i n the results section. XR CHEST 1 VIEW Routine 05/25/2019 7:24 Results for this PORTABLE/BEDSIDE PM ACCESS DEVELOPER procedure a re in the results section. POCT-GLUCOSE METER Routine 05/25/2019 4:25 Resul ts for this PM ACCESS DEVELOPER procedure are i n the results section. POCT-GLUCOSE METER Routine 05/25/2019 12:53 Resul ts for this PM ACCESS DEVELOPER procedure are i n the results section. POCT-GLUCOSE METER Routine 05/25/2019 7:55 Resul ts for this AM ACCESS DEVELOPER procedure are i n the results section. HEMOGLOBIN AND Routine 05/25/2019 4:53 Results f or this HEMATOCRIT AM ACCESS DEVELOPER procedure are i n the results section. POCT-GLUCOSE METER Routine 05/24/2019 9:56 Resul ts for this PM ACCESS DEVELOPER procedure are i n the results section. TRANSFUSION SERVICE 05/24/2019 5:52 REPORT - SCAN PM ACCESS DEVELOPER POCT-GLUCOSE METER Routine 05/24/2019 12:28 Resul ts for this PM ACCESS DEVELOPER procedure are i n the results section. POCT-GLUCOSE METER Routine 05/24/2019 8:19 Resul ts for this AM ACCESS DEVELOPER procedure are i n the results section. CBC (HEMOGRAM ONLY) Routine 05/24/2019 4:59 Resu lts for this AM ACCESS DEVELOPER procedure are i n the results section. BASIC METABOLIC Routine 05/24/2019 4:59 Results for this PANEL (7) AM ACCESS DEVELOPER procedure are i n the results section. PREPARE Routine 05/23/2019 11:54 Results for this LEUKO-REDUCED RBC PM ACCESS DEVELOPER procedure are in the results section. POCT-GLUCOSE METER Routine 05/23/2019 6:26 Resul ts for this PM ACCESS DEVELOPER procedure are i n the results section. TRANSFUSION SERVICE 05/23/2019 5:54 REPORT - SCAN PM ACCESS DEVELOPER BASIC METABOLIC Routine 05/23/2019 5:30 Results for this PANEL (7) AM ACCESS DEVELOPER procedure are i n the results section. CBC (HEMOGRAM ONLY) Routine 05/23/2019 5:30 Resu lts for this AM ACCESS DEVELOPER procedure are i n the results section. POCT-GLUCOSE METER Routine 05/23/2019 12:16 Resul ts for this AM ACCESS DEVELOPER procedure are i n the results section. TRANSFUSE Routine 05/22/2019 4:22 LEUKO-REDUCED RED PM ACCESS DEVELOPER BLOOD CELLS POCT-GLUCOSE METER Routine 05/22/2019 5:59 Resul ts for this AM ACCESS DEVELOPER procedure are i n the results section. CBC W/PLT COUNT & Routine 05/22/2019 5:38 Result s for this AUTO DIFFERENTIAL AM ACCESS DEVELOPER procedure are in the results section. CBC W/PLT COUNT & Routine 05/22/2019 5:38 Result s for this AUTO DIFFERENTIAL AM ACCESS DEVELOPER procedure are in the results section. PERIPHERAL VASCULAR 05/21/2019 9:10 REPORT - SCAN PM ACCESS DEVELOPER POCT-GLUCOSE METER Routine 05/21/2019 6:43 Resul ts for this PM ACCESS DEVELOPER procedure are i n the results section. TRANSFUSION SERVICE 05/21/2019 5:51 REPORT - SCAN PM ACCESS DEVELOPER POTASSIUM Routine 05/21/2019 1:28 Results for this PM ACCESS DEVELOPER procedure are i n the results section. MAGNESIUM Routine 05/21/2019 1:28 Results for this PM ACCESS DEVELOPER procedure are i n the results section. CBC (HEMOGRAM ONLY) Routine 05/21/2019 1:28 Resu lts for this PM ACCESS DEVELOPER procedure are i n the results section. POCT-GLUCOSE METER Routine 05/21/2019 12:58 Resul ts for this PM ACCESS DEVELOPER procedure are i n the results section. POCT-GLUCOSE METER Routine 05/21/2019 6:25 Resul ts for this AM ACCESS DEVELOPER procedure are i n the results section. URIC ACID Add-On 05/21/2019 5:59 Results for this AM ACCESS DEVELOPER procedure are i n the results section. BASIC METABOLIC Routine 05/21/2019 5:59 Results for this PANEL (7) AM ACCESS DEVELOPER procedure are i n the results section. CBC (HEMOGRAM ONLY) Routine 05/21/2019 5:59 Resu lts for this AM ACCESS DEVELOPER procedure are i n the results section. CBC (HEMOGRAM ONLY) Routine 05/21/2019 12:39 Resu lts for this AM ACCESS DEVELOPER procedure are i n the results section. POCT-GLUCOSE METER Routine 05/21/2019 12:30 Resul ts for this AM ACCESS DEVELOPER procedure are i n the results section. PREPARE STAT 05/20/2019 11:54 Results for this LEUKO-REDUCED RBC PM ACCESS DEVELOPER procedure are in the results section. VENOUS DOPPLER LEGS Routine 05/20/2019 7:30 Resu lts for this BILATERAL PM ACCESS DEVELOPER procedure are i n the results section. TRANSFUSION SERVICE 05/20/2019 5:53 REPORT - SCAN PM ACCESS DEVELOPER IRON, TIBC, % SAT. Routine 05/20/2019 5:50 Resul ts for this (WITHOUT FERRITIN) PM ACCESS DEVELOPER procedure are in the results section. TRANSFERRIN Routine 05/20/2019 5:50 Results for this PM ACCESS DEVELOPER procedure are i n the results section. FERRITIN Routine 05/20/2019 5:50 Results for this PM ACCESS DEVELOPER procedure are i n the results section. CBC (HEMOGRAM ONLY) Routine 05/20/2019 5:49 Resu lts for this PM ACCESS DEVELOPER procedure are i n the results section. XR ANKLE 1 VIEW LEFT MANPREET 05/20/2019 10:10 Res ults for this AM ACCESS DEVELOPER procedure are i n the results section. REPORT OF PROCEDURE 05/20/2019 8:39 - ENDOSCOPY URL AM ACCESS DEVELOPER UPPER ENDOSCOPY 05/20/2019 7:56 Gastrointestinal AM ACCESS DEVELOPER hemorrhage, unspecified gastrointestinal hemorrhage type CBC (HEMOGRAM ONLY) Routine 05/20/2019 4:06 Resu lts for this AM ACCESS DEVELOPER procedure are i n the results section. PHOSPHORUS Routine 05/20/2019 4:06 Results for this AM ACCESS DEVELOPER procedure are i n the results section. MAGNESIUM Routine 05/20/2019 4:06 Results for this AM ACCESS DEVELOPER procedure are i n the results section. BASIC METABOLIC Routine 05/20/2019 4:06 Results for this PANEL (7) AM ACCESS DEVELOPER procedure are i n the results section. CBC (HEMOGRAM ONLY) Routine 05/20/2019 12:07 Resu lts for this AM ACCESS DEVELOPER procedure are i n the results section. POCT-GLUCOSE METER Routine 05/19/2019 6:25 Resul ts for this PM ACCESS DEVELOPER procedure are i n the results section. CBC (HEMOGRAM ONLY) Routine 05/19/2019 6:21 Resu lts for this PM ACCESS DEVELOPER procedure are i n the results section. TRANSFUSE STAT 05/19/2019 4:35 LEUKO-REDUCED RED PM ACCESS DEVELOPER BLOOD CELLS TYPE AND SCREEN, STAT 05/19/2019 1:24 Results for this AUTOMATED PM ACCESS DEVELOPER procedure are i n the results section. POCT-GLUCOSE METER Routine 05/19/2019 12:18 Resul ts for this PM ACCESS DEVELOPER procedure are i n the results section. CBC (HEMOGRAM ONLY) Routine 05/19/2019 12:14 Resu lts for this PM ACCESS DEVELOPER procedure are i n the results section. FIBRINOGEN Routine 05/19/2019 7:25 Results for this AM ACCESS DEVELOPER procedure are i n the results section. PT/APTT Routine 05/19/2019 7:25 Results for this AM ACCESS DEVELOPER procedure are i n the results section. PHOSPHORUS Routine 05/19/2019 6:52 Results for this AM ACCESS DEVELOPER procedure are i n the results section. MAGNESIUM Routine 05/19/2019 6:52 Results for this AM ACCESS DEVELOPER procedure are i n the results section. BASIC METABOLIC Routine 05/19/2019 6:52 Results for this PANEL (7) AM ACCESS DEVELOPER procedure are i n the results section. CBC (HEMOGRAM ONLY) Routine 05/19/2019 5:54 Resu lts for this AM ACCESS DEVELOPER procedure are i n the results section. POCT-GLUCOSE METER Routine 05/19/2019 12:09 Resul ts for this AM ACCESS DEVELOPER procedure are i n the results section. POCT-GLUCOSE METER Routine 05/18/2019 6:09 Resul ts for this PM ACCESS DEVELOPER procedure are i n the results section. POCT-GLUCOSE METER Routine 05/18/2019 12:11 Resul ts for this PM ACCESS DEVELOPER procedure are i n the results section. CBC (HEMOGRAM ONLY) Routine 05/18/2019 3:43 Resu lts for this AM ACCESS DEVELOPER procedure are i n the results section. PHOSPHORUS Routine 05/18/2019 3:42 Results for this AM ACCESS DEVELOPER procedure are i n the results section. MAGNESIUM Routine 05/18/2019 3:42 Results for this AM ACCESS DEVELOPER procedure are i n the results section. BASIC METABOLIC Routine 05/18/2019 3:42 Results for this PANEL (7) AM ACCESS DEVELOPER procedure are i n the results section. POCT-GLUCOSE METER Routine 05/17/2019 6:32 Resul ts for this PM ACCESS DEVELOPER procedure are i n the results section. NV CAROTID ARTERY Routine 05/17/2019 3:25 Result s for this STENT PLACEMENT W PM ACCESS DEVELOPER procedure are in PROTECTION the results section. PROCEDURE DONE 05/17/2019 1:00 Left carotid stenosis OUTSIDE OR PM ACCESS DEVELOPER Special Needs REQ:[id number] POCT-GLUCOSE METER Routine 05/17/2019 12:28 PM Re sults for this ACCESS DEVELOPER procedure are i n the results section. PROTHROMBIN TIME/INR Add-On 05/17/2019 8:55 AM Results for this ACCESS DEVELOPER procedure are i n the results section. APTT Routine 05/17/2019 8:55 AM Results for this ACCESS DEVELOPER procedure are i n the results section. POCT-GLUCOSE METER Routine 05/17/2019 6:37 AM Re sults for this ACCESS DEVELOPER procedure are i n the results section. CBC (HEMOGRAM ONLY) Routine 05/17/2019 4:12 AM R esults for this ACCESS DEVELOPER procedure are i n the results section. APTT Routine 05/17/2019 4:12 AM Results for this ACCESS DEVELOPER procedure are i n the results section. POCT-ASPIRIN PLATELET Routine 05/17/2019 4:12 AM Results for this AGGREGATION ACCESS DEVELOPER procedure are i n the results section. POCT-P2Y12 PLATELET Routine 05/17/2019 4:12 AM R esults for this AGGREGATION ACCESS DEVELOPER procedure are i n the results section. BASIC METABOLIC PANEL Routine 05/17/2019 4:12 AM Results for this (7) ACCESS DEVELOPER procedure are i n the results section. APTT Routine 05/17/2019 4:12 AM Results for this ACCESS DEVELOPER procedure are i n the results section. APTT Routine 05/17/2019 1:19 AM Results for this ACCESS DEVELOPER procedure are i n the results section. POCT-GLUCOSE METER Routine 05/16/2019 11:49 PM Re sults for this ACCESS DEVELOPER procedure are i n the results section. POCT-GLUCOSE METER Routine 05/16/2019 6:36 PM Re sults for this ACCESS DEVELOPER procedure are i n the results section. TRANSFUSION SERVICE 05/16/2019 6:22 PM REPORT - SCAN ACCESS DEVELOPER NV CEREBRAL 4 VESSEL Routine 05/16/2019 4:14 PM Results for this ANGIOGRAM ACCESS DEVELOPER procedure are i n the results section. POCT-GLUCOSE METER Routine 05/16/2019 1:29 PM Re sults for this ACCESS DEVELOPER procedure are i n the results section. PROCEDURE DONE OUTSIDE 05/16/2019 12:00 PM Aneurysm of OR ACCESS DEVELOPER basilar artery (HCC) Special Needs REQ AFTERNOON CAROTID DOPPLER BILATERAL Routine 05/16/2019 12:00 PM ACCESS DEVELOPER Results for this procedure are i n the results section . APTT Routine 05/16/2019 9:03 AM ACCESS DEVELOPER Resu lts for this procedure are i n the results section . CBC (HEMOGRAM ONLY) Routine 05/16/2019 9:03 AM ACCESS DEVELOPER Results for this procedure are i n the results section . APTT Routine 05/16/2019 2:36 AM ACCESS DEVELOPER Resu lts for this procedure are i n the results section . PLATELET COUNT Routine 05/16/2019 2:36 AM ACCESS DEVELOPER Re sults for this procedure are i n the results section . PT/APTT Routine 05/16/2019 2:36 AM ACCESS DEVELOPER Resu lts for this procedure are i n the results section . BASIC METABOLIC PANEL (7) Routine 05/16/2019 2:36 AM ACCESS DEVELOPER Results for this procedure are i n the results section . CT CEREBRAL PERFUSION STAT 05/15/2019 11:45 PM ACCESS DEVELOPER Results for this ANALYSIS procedure are i n the results section . CT/CTA CAROTID STAT 05/15/2019 11:45 PM ACCESS DEVELOPER Re sults for this procedure are i n the results section . CTA BRAIN STAT 05/15/2019 11:45 PM ACCESS DEVELOPER Resu lts for this procedure are i n the results section . CT BRAIN/STROKE TEST DESIGN STAT 05/15/2019 11:21 PM ACCESS DEVELOPER Results for this procedure are i n the results section . POCT-GLUCOSE METER Routine 05/15/2019 8:45 PM ACCESS DEVELOPER Results for this procedure are i n the results section . PROTHROMBIN TIME/INR STAT 05/15/2019 6:48 PM ACCESS DEVELOPER Results for this procedure are i n the results section . TYPE AND SCREEN, AUTOMATED STAT 05/15/2019 6:47 PM ACCESS DEVELOPER Results for this procedure are i n the results section . POCT-GLUCOSE METER Routine 05/15/2019 5:39 PM ACCESS DEVELOPER Results for this procedure are i n the results section . POCT-GLUCOSE METER Routine 05/15/2019 11:43 AM ACCESS DEVELOPER Results for this procedure are i n the results section . POCT-GLUCOSE METER Routine 05/15/2019 8:38 AM ACCESS DEVELOPER Results for this procedure are i n the results section . POCT-GLUCOSE METER Routine 05/15/2019 6:46 AM ACCESS DEVELOPER Results for this procedure are i n the results section . VITAMIN B12 AND FOLATE Routine 05/15/2019 6:09 AM ACCESS DEVELOPER Results for this procedure are i n the results section . LIPID PANEL Routine 05/15/2019 6:09 AM ACCESS DEVELOPER Resu lts for this procedure are i n the results section . BASIC METABOLIC PANEL (7) Routine 05/15/2019 6:09 AM ACCESS DEVELOPER Results for this procedure are i n the results section . HEMOGLOBIN A1C Routine 05/15/2019 6:08 AM ACCESS DEVELOPER Re sults for this procedure are i n the results section . CBC (HEMOGRAM ONLY) Routine 05/15/2019 6:08 AM ACCESS DEVELOPER Results for this procedure are i n the results section . MR BRAIN WITHOUT IV Routine 05/15/2019 2:26 AM ACCESS DEVELOPER Results for this CONTRAST procedure are i n the results section . POCT-GLUCOSE METER Routine 05/14/2019 9:07 PM ACCESS DEVELOPER Results for this procedure are i n the results section . BASIC METABOLIC PANEL (7) STAT 03/31/2019 2:07 PM ACCESS DEVELOPER Results for this procedure are i n the results section . ECG 12-LEAD Routine 03/31/2019 1:49 PM ACCESS DEVELOPER Procedure Note - Interface, External Ris In - 03/31/2019 12:56 PM ACCESS DEVELOPER Ventricular Rate 65 BPM Atrial Rate 65 BPM P-R Interval 138 ms QRS Duration 148 ms Q-T Interval 486 ms QTC Calculation(Bazett) 505 ms P [place] 81 degrees R [place] -41 degrees T [place] 36 degrees Normal sinus rhythm with sin us arrhythmia Left axis deviation Right bundle branch block Voltage criteria for left ve ntricular hypertrophy Abnormal ECG No previous ECGs available ECG 12-LEAD Routine 03/31/2019 1:49 PM ACCESS DEVELOPER Resu lts for this procedure are i n the results section . CBC W/PLT COUNT & AUTO Routine 03/31/2019 12:28 PM ACCESS DEVELOPER Results for this DIFFERENTIAL procedure are i n the results section . PT/APTT Routine 03/31/2019 12:28 PM ACCESS DEVELOPER Resu lts for this procedure are i n the results section . CBC W/PLT COUNT & AUTO Routine 03/31/2019 12:28 PM ACCESS DEVELOPER Results for this DIFFERENTIAL procedure are i n the results section . BASIC METABOLIC PANEL (7) Routine 03/31/2019 12:28 PM ACCESS DEVELOPER Results for this procedure are i n the results section . after 01/31/2019 Results TRANSFUSION SERVICE REPORT - SCAN (09/07/2019 5:53 PM CDT)Only the most recent of6 resultswithin the time period is included. Narrative Performed At This result has an attachment that is no t available. SARS-CoV2/RT-PCR ([facility]) (09/07/2019 12:01 AM CDT) SARS-COV2/RT-PCR Not Detected Not Detected, [facility] Negative [facility] SARS-COV-2 [facility] Specimen Other - Nasopharyngeal wall structure (b adal structure) Narrative Performed At Negative results do not preclude SARS-CoV-2 [facility] infection and should not be used as the sole basis for patient management decisions. Negative results must be combined with clinical observations, patient history, and epidemiological information. A false negative result may occur if a specimen is improperly collected, transported or handled. The limit of detection for this assay is 250 copies/mL. This SARS CoV-2 test is a rapid, real-time RT-PCR test intended for the qualitative detection of nucleic acid from SARS-CoV-2 in a nasopharyngeal swab specimen collected from individuals suspected of COVID-19 by their healthcare provider. This test has not been Food and Drug Administration (FDA) cleared or approved and has been authorized by FDA under an Emergency Use Authorization (EUA). This EUA will be effective until the declaration that circumstances exist justifying the authorization of the emergency use of in vitro diagnostic tests for detection and/or diagnosis of COVID-19 is terminated under Section 564(b)(2) of the Act or the EUA is revoked under Section 564(g) of the Act. Fact Sheet for Healthcare Providers: https://www.Activism.com/Documents/Xpert%20Xpre ss%20SARS%20CoV-2/Fact%20Sheets/302-3802%20SAR S-COV-2%20HEALTHCARE%20PROVIDERS%20FACT%20SHEE T.pdf Fact Sheet for Healthcare Patients: https://www.Activism.com/Documents/Xpert%20Xpre ss%20SARS%20CoV-2/Fact%20Sheets/302-3801%20SAR S-COV-2%20PATIENT%20FACT%20SHEET.pdf Performing Laboratory: [address] [address] Performing Organization Address City/State/Zipcode Phone Number [address] [address] CENTER ECG 12 lead (09/06/2019 9:35 AM CDT)Only the most recent of2 resultswithin the time period is included. Specimen Narrative Performed At Ventricular Rate 89 BPM GE MUSE Atrial Rate 89 BPM P-R Interval 126 ms QRS Duration 136 ms Q-T Interval 424 ms QTC Calculation(Bazett) 515 ms P [place] 85 degrees R [place] -40 degrees T [place] 64 degrees Normal sinus rhythm Left axis deviation Left ventricular hypertrophy with QRS wi dening Right bundle branch block Abnormal ECG When compared with ECG of 31-MAR-2019 13 :49, Right bundle branch block is no longer P resent Confirmed by MD Kimble Roberto ([id number]) on 09/06 9:27:51 AM Procedure Note Interface, External Ris In - 09/07/2019 9:27 AM CDT Ventricular Rate 89 BPM Atrial Rate 89 BPM P-R Interval 126 ms QRS Duration 136 ms Q-T Interval 424 ms QTC Calculation(Bazett) 515 ms P [place] 85 degrees R [place] -40 degrees T [place] 64 degrees Normal sinus rhythm Left axis deviation Left ventricular hypertrophy with QRS wi dening Right bundle branch block Abnormal ECG When compared with ECG of 31-MAR-2019 13 :49, Right bundle branch block is no longer P resent Confirmed by MD Kimble Roberto ([id number]) on 09/07/2019 9:27:51 AM Performing Organization Address City/State/Zipcode Phone Number [facility] POCT-P2Y12 PLATELET AGGREGATION (09/06/2019 9:34 AM CDT)Only the most recent of 2 resultswithin the time period is included. Pathologist Sig nature POC-P2Y12 Plt Agg 79 PRU [facility] Specimen Blood - Entire right upper arm (body str ucture) Narrative Performed At RANGE INFORMATION: PRU reference range is [facility] 194-418. Post Drug Results: Lower PRU levels are associated with expected antiplatelet effect. Values may be below the stated reference range above. The post-drug PRU values reported in the VerifyNow P2Y12 package insert are [id number]. Performing Organization Address [place]/[facility] Phone Number [address] [address] [place] POCT-ASPIRIN PLATELET AGGREGATION (09/06/2019 9:34 AM CDT)Only the most recent of2 resultswithin the time period is included. Pathologist Sig nature POC-Aspirin Plt Agg 385 ARU [facility] Specimen Blood - Entire right upper arm (body str ucture) Narrative Performed At RANGE INFORMATION: 350-549 ARU Therapeutic [facility] range for platelet function. 550-700 ARU Non-Therapeutic range for platelet function. Performing Organization Address City/[facility] Phone Number [address] [address] CENTER Basic Metabolic Panel (09/06/2019 9:34 AM CDT)Only the most recent of13 results within the time period is included. Sodium 138 136 - 145 meq/L [facility] Potassium 5.4 (H)Comment: 3.5 - 5.1 meq/L [facility] hemolyzed [place] Chloride 107 98 - 107 meq/L [facility] CO2 23 22 - 29 meq/L [facility] BUN 60 (H) 7 - 21 mg/dL [facility] Creatinine 2.09 (H)Comment: 0.57 - 1.25 [facility] Specimen slightly mg/dL [facility] hemolyzed [place] Glucose 108 (H) 70 - 105 mg/dL [facility] Calcium 9.9 8.4 - 10.2 [facility] mg/dL [facility] [place] EGFR 23Comment: ESTIMATED mL/min/1.73 sq [facility] GFR IS NOT m [facility] ACCURATE CENTER CREATININE CLEARANCE IN PREDICTING GLOMERULAR FILTRATION RATE. ESTIMATED GFR IS NOT APPLICABLE FOR DIALYSIS PATIENTS. Specimen Blood - Entire right upper arm (body str ucture) Narrative Performed At Home Demonstrator ID - CAROLINA F [facility] Performing Organization Address City/[facility] Cent[facility] Phone Number [address] [address] CENTER Type and screen, automated (09/06/2019 9:33 AM CDT)Only the most recent of3 resultswithin the time period is included. Pathologist Sig nature ABO/RH AUTOMATED A POSITIVE [facility] Ab Scrn NEGATIVE [facility] Specimen Blood Performing Organization Address City/[facility] Phone Number [address] [address] PT/aPTT (09/06/2019 9:33 AM CDT)Only the most recent of4 resultswithin the time period is included. Pathologist Sig nature Protime 12.8 11.9 - 14.2 seconds [facility] INR 1.0 <=5.9 [facility] PTT 25.6 22.5 - 36.0 seconds [facility] Specimen Blood - Entire right upper arm (body str ucture) Narrative Performed At Effective 09/07/2018: PT Reference Range [facility] Change New: 11.9-14.2 Previous: 11.7-14.7 RECOMMENDED COUMADIN/WARFARIN INR THERAPY RANGES STANDARD DOSE: 2.0-3.0 Includes: PROPHYLAXIS for venous thrombosis, systemic embolization; TREATMENT for venous thrombosis and/or pulmonary embolus. HIGH RISK: Target INR is 2.5-3.5 for patients wiht mechanical heart valves. Performing Organization Address City/State/Zipcode Phone Number [facility] [address] [place] [address] CENTER CBC with platelet count + automated diff (09/06/2019 9:33 AM CDT)Only the most recent of3 resultswithin the time period is included. Pathologist Sig nature WBC 14.6 (H) 3.5 - 10.5 [facility] K/L [facility] RBC 3.55 (L) 3.93 - 5.22 [facility] M/L [facility] Hemoglobin 10.5 (L) 11.2 - 15.7 [facility] GM/DL [facility] Hematocrit 34.1 34.1 - 44.9 % [facility] MCV 96.1 (H) 79.4 - 94.8 fL [facility] MCH 29.6 25.6 - 32.2 pg [facility] MCHC 30.8 (L) 32.2 - 35.5 [facility] GM/DL [facility] RDW 14.0 11.7 - 14.4 % [facility] Platelets 280 150 - 450 K/CU [facility] MPV 11.0 9.4 - 12.3 fL [facility] nRBC 0 0 - 0 /100 WBC [facility] % Neutros 75 % [facility] % Lymphs 14 % [facility] % Monos 6 % [facility] % Eos 4 % [facility] % Baso 0 % [facility] # Neutros 11.01 (H) 1.56 - 6.13 [facility] # Lymphs 1.99 1.18 - 3.74 [facility] # Monos 0.92 (H) 0.24 - 0.36 [facility] # Eos 0.58 (H) 0.04 - 0.36 [facility] # Baso 0.04 0.01 - 0.08 [facility] Immature 1 0 - 1 % [facility] Specimen Blood Performing Organization Address City/State/Zipcode Phone Number [address] [phone] CENTER RHYTHM STRIP - SCAN (05/31/2019 11:43 AM ACCESS DEVELOPER) Narrative Performed At This result has an attachment that is no t available. POC-Glucose meter (05/29/2019 12:35 PM ACCESS DEVELOPER)Only the most recent of40 results within the time period is included. POC-Glucose Meter 133 (H)Comment: : 70 - 110 [facility] TESTED AT [facility] mg/dL [address], [address]: Home Demonstrator/Technicia n ID = [id number] for ANTONYLIZ Specimen Blood Performing Organization Address City/[facility]/Zipcode Phone Number [address] [phone] CENTER Hemoglobin and hematocrit (05/27/2019 10:27 AM ACCESS DEVELOPER)Only the most recent of3 resultswithin the time period is included. Pathologist Sig nature Hemoglobin 9.3 (L) 11.2 - 15.7 GM/DL [facility] Hematocrit 28.8 (L) 34.1 - 44.9 % [facility] Specimen Blood Narrative Performed At Home Demonstrator ID - [id number] [facility] CENTER Performing Organization Address City/[facility]/Zipcode Phone Number [facility] [address] [place] [address] CENTER Magnesium (05/26/2019 5:18 AM ACCESS DEVELOPER)Only the most recent of5 resultswithin the time period is included. Pathologist Sig nature Magnesium 1.7 1.6 - 2.6 mg/dL [facility] Specimen Blood Narrative Performed At Home Demonstrator ID - KEARA W [facility] Performing Organization Address [place]/[facility]/Zipcode Phone Number [facility] [address] [place], [place] [phone] CENTER XR chest 1 view portable / bedside (05/25/2019 7:24 PM ACCESS DEVELOPER) Specimen Narrative Performed At FINAL REPORT GE [...] Karely Davis MD Report Verified Date/Time: 05/25/2019 21:41:23 Procedure Note Interface, External Ris In - 05/25/2019 9:43 PM ACCESS DEVELOPER FINAL REPORT RAD, CHEST, 1 VIEW, NON [...] Date/Time: 05/25/2019 2 1:41:23 Performing Organization Address City/State/[facility] Phone Number GE RIS CBC (Hemogram only) (05/24/2019 4:59 AM ACCESS DEVELOPER)Only the most recent of15 results within the time period is included. Pathologist Sig nature WBC 11.1 (H) 3.5 - 10.5 K/L [facility] RBC 2.67 (L) 3.93 - 5.22 M/L [facility] Hemoglobin 7.8 (L) 11.2 - 15.7 GM/DL [facility] Hematocrit 24.6 (L) 34.1 - 44.9 % [facility] MCV 92.1 79.4 - 94.8 fL [facility] MCH 29.2 25.6 - 32.2 pg [facility] MCHC 31.7 (L) 32.2 - 35.5 GM/DL [facility] RDW 14.1 11.7 - 14.4 % [facility] Platelets 283 150 - 450 K/CU MM [facility] MPV 11.1 9.4 - 12.3 fL [facility] nRBC 0 0 - 0 /100 WBC [facility] Specimen Blood Performing Organization Address [place]/[facility] Cent[facility]ode Phone Number [address] [address] CENTER Prepare Leuko-Red RBC (05/23/2019 11:54 PM ACCESS DEVELOPER)Only the most recent of2 results within the time period is included. Pathologist Sig nature CROSSMATCH COMPATIBLE SAFETRACE TX Unit ABO A Pos SAFETRACE TX UNIT NUMBER [id number] SAFETRACE TX Status TX_TIMEINCHART SAFETRACE TX Blood Bank Product RED BLOOD CELLS SAFETRACE TX PRODUCT CODE [id number] SAFETRACE TX Specimen Other Performing Organization Address City/[facility]ode Phone Number SAFETRACE TX Transfuse Leuko-Red RBC (05/22/2019 4:22 PM ACCESS DEVELOPER)Only the most recent of2 resultswithin the time period is included.PERIPHERAL VASCULAR REPORT - SCAN (05/21/2019 9:10 PM ACCESS DEVELOPER) Narrative Performed At This result has an attachment that is no t available. Potassium (05/21/2019 1:28 PM ACCESS DEVELOPER) Pathologist Sig nature Potassium 3.9 3.5 - 5.1 meq/L [facility] Specimen Blood Narrative Performed At Home Demonstrator ID - [facility] Performing Organization Address City/[facility] Cent[facility]ode Phone Number [address] [address] [place] Uric acid (05/21/2019 5:59 AM ACCESS DEVELOPER) Pathologist Sig [facility] Uric Acid 5.7 2.6 - 7.2 mg/dL [facility] Specimen Blood Narrative Performed At Home Demonstrator ID - [facility] Performing Organization Address [place]/[facility] Cent[facility] Phone Number [address] [address] [place] Venous doppler legs bilateral (05/20/2019 7:30 PM ACCESS DEVELOPER) Pathologist Sig nature Ejection Fraction [facility] Specimen Impressions Performed At Right Impression [facility] 1. There is no deep venous obstruction [...] are measured in cm Narrative Performed At LAB - Lower Extremities DVT Study [facility] Demographics Patient Name BHARATI BRAVO Date of Study 05/20/2019 Age 79 Visit Number [id number] Gender Female Accession Number [id number] Date of 1940 Referring Mina Flower Room Number [id number] [employer]ician [employer] President eKlsey Kaufman Interpreting Tonya Burleson T Physician Procedure Type of Study: Veins: Lower Extremities DVT Study, VENOUS DOPPLER LEG, BILATERAL. Indications for Study:DVT. Patient Status:Routine. Study Location:Portable. Technical Quality:Technically Difficult. Risk Factors History of Disease + + + + !Diagnosis !Date !Comments ! + + + + !Other ! !Carotid Stenosis, Stroke ! + + + + !History/Risk Factors: !05/20/2019!LLE pain ! ! ! !A fib ! ! ! !COPD ! ! ! !HLD ! ! ! !HTN ! ! ! !DVT LLE? ! + + + + Procedure Note Interface, External Ris In - 05/21/2019 8:28 AM ACCESS DEVELOPER PV LAB - Lower Extremities DVT Study Demographics Patient Name BHARATI BRAVO Dom e of Study 05/20/2019 Age 79 Visit Number [id number] Gen hebert Female Accession Number [id number] Dom e of 1940 Referring Mina Mundo Mcdanielo m Number [id number] Physician [employer] President Kelsey Kaufman Int [facility] Tonya Burleson, T Cira mcdonald MD Procedure [...] are measured in cm Performing Organization Address [place]/[facility] Phone Number [facility] MKCKESSON CPACS Iron, TIBC, % sat. (without ferritin) (05/20/2019 5:50 PM ACCESS DEVELOPER) Pathologist Sig nature Iron 14.0 (L) 40.0 - 160.0 [facility] ug/dL [facility] TIBC 264 250 - 450 ug/dL [facility] Iron % Saturation 5 (L) 20 - 55 % [facility] Specimen Blood Narrative Performed At Home Demonstrator SC - [facility] Performing Organization Address [facility] Phone Number [address] [phone] CENTER Transferrin (05/20/2019 5:50 PM ACCESS DEVELOPER) Pathologist Sig nature Transferrin 211 174 - 382 mg/dL [facility] Specimen Blood Narrative Performed At Home Demonstrator SC - [facility] Performing Organization Address [facility] Phone Number [address] [phone] CENTER Ferritin (05/20/2019 5:50 PM ACCESS DEVELOPER) Pathologist Sig nature Ferritin 29 5 - 275 ng/mL [facility] [place] Specimen Blood Narrative Performed At Home Demonstrator ID - [facility] Performing Organization Address [facility] Phone Number [address] [address] CENTER XR ankle 1 view left (05/20/2019 10:10 AM ACCESS DEVELOPER) Specimen Narrative Performed At FINAL REPORT GE RIS TECHNIQUE: Two views of left ankle HISTORY: left ankle pain. COMPARISON: None. IMPRESSION: No acute displaced fracture or dislocati on. Joint spaces are within normal limits. Minimal Achilles enthesopathy. Large nisa ntar calcaneal spur and enthesopathy. Signed: Steven Lyman MD Report Verified Date/Time: 05/20/2019 18:09:20 Reading Location: [facility] B1 C013W Consult R eading Room Procedure Note Interface, External Ris In - 05/20/2019 6:11 PM ACCESS DEVELOPER FINAL REPORT TECHNIQUE: Two views of left ankle HISTORY: left ankle pain. COMPARISON: None. IMPRESSION: No acute displaced fracture or dislocati on. Joint spaces are within normal limits. Minimal Achilles enthesopathy. Large nisa ntar calcaneal spur and enthesopathy. Signed: Steven Lyman MD Report Verified Date/Time: 05/20/2019 1 8:09:20 Reading Location: [facility] C013W Consult R eading Room Performing Organization Address City/State/Zipcode Phone Number GE RIS REPORT OF PROCEDURE - ENDOSCOPY URL (05/20/2019 8:39 AM ACCESS DEVELOPER) Narrative Performed At This result has an attachment that is no t available. Phosphorus (05/20/2019 4:06 AM ACCESS DEVELOPER)Only the most recent of3 resultswithin the time period is included. Pathologist Sig nature Phosphorus 3.3Comment: 2.3 - 4.7 mg/dL [facility] hemolyzed CENTER Specimen Blood Narrative Performed At Home Demonstrator ID - TERRI Chao [facility] Performing Organization Address City/[facility]/Zipcode Phone Number [address] [address] CENTER Fibrinogen (05/19/2019 7:25 AM ACCESS DEVELOPER) Pathologist Sig nature Fibrinogen 489 (H) 225 - 434 mg/dl [facility] Specimen Blood Performing Organization Address City/[facility]/Zipcode Phone Number [address] [address] [place] Carotid Artery Stent Placement w/Protection (05/17/2019 3:25 PM ACCESS DEVELOPER) Specimen Narrative Performed At FINAL REPORT [facility] Date of procedure May 17, 2019 CLINICAL [...] guidance and strict sterile technique a 6 Tunisian shuttle she ath was inserted through the [...] internal carotid artery with severe stenosis of approxi mately 95%. There is poor delayed antegrade flow [...] the stent to the arterial wall with mosque of the intraluminal flow and mild residual stenosis of approximately 20%. There is no evidence of platelet aggregation, or dissection. Int racranially there is mosque of good antegrade flow with no evidence [...] Khai Carrasco MD Report Verified Date/Time: 05/17/2019 15:10:42 Reading Location: [facility] B1 Y018 [facility] o Reading Room Procedure Note Interface, External Ris In - 05/17/2019 3:32 PM ACCESS DEVELOPER FINAL REPORT Date of procedure May 17, [...] guidance and strict sterile technique a 6 Tunisian shuttle she ath was inserted through the [...] the stent to the arterial wall with mosque of the intraluminal flow and mild residual stenosis of approximately 20%. There is no evidence of platelet aggregation, or dissection. Int racranially there is mosque of good antegrade flow with no evidence [...] Verified Date/Time: 05/17/2019 1 5:10:42 Reading Location: [facility] [address] [place] [address] Reading Room Performing Organization Address City/[facility] Cent[facility] Phone Number GE RIS aPTT (05/17/2019 8:55 AM ACCESS DEVELOPER)Only the most recent of6 resultswithin the time period is included. Pathologist Sig nature PTT 37.6 (H) 22.5 - 36.0 seconds [facility] Specimen Blood Performing Organization Address City/[facility]/Zipcode Phone Number [address] [address] CENTER Prothrombin time/INR (05/17/2019 8:55 AM ACCESS DEVELOPER)Only the most recent of2 results within the time period is included. Pathologist Sig nature Protime 13.7 11.9 - 14.2 seconds [facility] INR 1.1 <=5.9 [facility] Specimen Blood Narrative Performed At Effective 09/07/2018: PT Reference Range [facility] Change New: 11.9-14.2 Previous: 11.7-14.7 RECOMMENDED COUMADIN/WARFARIN INR THERAPY RANGES STANDARD DOSE: 2.0-3.0 Includes: PROPHYLAXIS for venous thrombosis, systemic embolization; TREATMENT for venous thrombosis and/or pulmonary embolus. HIGH RISK: Target INR is 2.5-3.5 for patients wiht mechanical heart valves. Performing Organization Address City/State/Zipcode Phone Number [facility] [address] [place] [address] CENTER [place] cerebral 4 vessel angiogram (05/16/2019 4:14 PM ACCESS DEVELOPER) Specimen Narrative Performed At FINAL REPORT [facility] Date of service May 16, 2019 CLINICAL [...] and . Neuroleptic sedation was provided by [facility]. Using a micropuncture set and under fluo roscopic guidance and strict sterile technique a 4 Tunisian femoral she ath was inserted into the right radial artery. Through the sheath a 4 Tunisian Weaver catheter was then advanced over the wire [...] Khai Carrasco MD Report Verified Date/Time: 05/16/2019 16:45:20 Reading Location: [facility] Y018 [facility] o Reading Room Procedure Note Interface, External Ris In - 05/16/2019 4:47 PM ACCESS DEVELOPER FINAL REPORT Date of service May 16, [...] and . Neuroleptic sedation was provided by [facility]. Using a micropuncture set and under fluo roscopic guidance and strict sterile technique a 4 Tunisian femoral she ath was inserted into the right radial artery. Through the sheath a 4 Tunisian Weaver catheter was then advanced over the wire [...] Verified Date/Time: 05/16/2019 1 6:45:20 Reading Location: [facility] Y018 [facility] Rad[facility] o Reading Room Performing Organization Address City/State/Zipcode Phone Number [facility] RIS Carotid doppler bilateral (05/16/2019 12:00 PM ACCESS DEVELOPER) Pathologist Sig nature Ejection Fraction [facility]PA Specimen Impressions Performed At Right Impression [facility] 1. The internal carotid artery is within [...] +----+----+-----+ +---- + + !Prox CCA !123 !29 !60 ! ! ! ! + +----+----+-----+ +---- + + !Dist CCA !110 !24 !60 ! ! ! ! + +----+----+-----+ +---- + + !Prox ICA !123 !25 !60 ! ! ! ! + +----+----+-----+ +---- + + !Dist ICA !109 !34 !60 ! ! ! ! + +----+----+-----+ +---- + + !Prox ECA !187 !33 !60 ! ! ! ! + +----+----+-----+ +---- + + !Vertebral !33.8!7.07!60 ! ! ! ! + +----+----+-----+ +---- + + !Prox Subclavian!135 ! !60 ! ! ! ! + +----+----+-----+ +---- + + - Additional Measurements:ICAPSV/CCAPSV 1.12.ICAEDV/CCAEDV 1.17. Carotid Left Measurements + +---+----+-----+ +----- + + !Location !PSV!EDV !Angle!%Stenosis 2D!%Stenosis Doppler !Tortuosity ! + +---+----+-----+ +----- + + !Prox CCA !88 !9 !60 ! ! ! ! + +---+----+-----+ +----- + + !Dist CCA !90 !12 !60 ! ! ! ! + +---+----+-----+ +----- + + !Prox ICA !522!178 !60 ! ! ! ! + +---+----+-----+ +----- + + !Dist ICA !134!28 !60 ! ! ! ! + +---+----+-----+ +----- + + !Prox ECA !293!70 !60 ! ! ! ! + +---+----+-----+ +----- + + !Prox Subclavian!164!30.1!60 ! ! ! ! + +---+----+-----+ +----- + + - Additional Measurements:ICAPSV/CCAPSV 5.8.ICAEDV/CCAEDV 19.78. Narrative Performed At LAB - Carotid Duplex Study [facility] Demographics Patient Name BHARATI BRAVO Date of Study 05/16/2019 Age 79 Visit Number [id number] Gender Female Accession Number [id number] Date of 1940 Referring SHALONDA BENNETT Room Number 7518 Physician Financial Institution President Pramod Pizarro Interpreting Tonya Burleson, T Physician DOHERTY Procedure Type of Study: Cerebral: Carotid, CAROTID DOPPLER, CHARLES ATERAL. Indications for Study:Carotid stenosis . Patient Status:Routine. Study Location:Portable. Technical Quality:Adequate visualization . - Results were reported to:SARAI DOHERTY@1 200. Risk Factors History of Disease +---------+----+ + !Diagnosis!Date!Comments ! +---------+----+ + !Other ! !Carotid Stenosis, Stroke ! +---------+----+ + Procedure Note Interface, External Ris In - 05/17/2019 1:06 PM ACCESS DEVELOPER PV LAB - Carotid Duplex Study Demographics Patient Name MEANSBHARATI Dom e of Study 05/16/2019 Age 79 Visit Number [id number] Gen hebert Female Accession Number [id number] Dom e of 1940 Referring SHALONDA BENNETT Adele m Number [id number] Physician Financial Institution President Pramdo Pizarro Int erpreting Tonya Burleson, T Cira [...] Measurements:ICAPSV/CCAPS V 5.8.ICAEDV/CCAEDV 19.78. Performing Organization Address City/[facility]/Zipcode Phone Number [facility] Platelet count (05/16/2019 2:36 AM ACCESS DEVELOPER) Pathologist Sig nature Platelets 231 150 - 450 K/CU MM [facility] Specimen Blood Narrative Performed At Home Demonstrator ID - [id number] [facility] Performing Organization Address City/[facility]/Zipcode Phone Number [facility] [address] [place] [address] CENTER CTA carotid (05/15/2019 11:45 PM ACCESS DEVELOPER) Specimen Narrative Performed At FINAL REPORT [employer] EXAM: CT, CT Angio, Brain. CT Carotid Angio CLINICAL HISTORY: Neuro deficit, acute, stroke suspected COMPARISON: None. TECHNIQUE: CT angiogram of the head and neck was performed with intravenous contrast. 2-D and 3-D refo rmatted images were obtained. This exam was performed [...] Fabiano Montoya MD Report Verified Date/Time: 05/16/2019 01:09:25 Procedure Note Interface, External Ris In - 05/16/2019 1:12 AM ACCESS DEVELOPER FINAL REPORT EXAM: CT, CT Angio, Brain. [...] 1:09:25 Performing Organization Address City/State/Zipcode Phone Number [employer] CT brain cerebral perfusion analysis (05/15/2019 11:45 PM ACCESS DEVELOPER) Specimen Narrative Performed At FINAL REPORT [employer] CT cerebral perfusion analysis. Comparison: None. Reason [...] MCA infarct core. Discussed with covering neurology [facility] nt at approximately 1:20 AM 05/16/2018. Signed: Fabiano Montoya MD Report Verified Date/Time: 05/16/2019 01:22:48 Procedure Note Interface, External Ris In - 05/16/2019 1:25 AM ACCESS DEVELOPER FINAL REPORT CT cerebral perfusion analysis. Comparison: [...] MCA infarct core. Discussed with covering neurology [facility] nt at approximately 1:20 AM 05/16/2018. Signed: Fabiano Montoya MD Report Verified Date/Time: 05/16/2019 0 1:22:48 Performing Organization Address City/State/Zipcode Phone Number [employer] CTA brain (05/15/2019 11:45 PM ACCESS DEVELOPER) Specimen Narrative Performed At FINAL REPORT [employer] EXAM: CT, CT Angio, Brain. CT Carotid Angio CLINICAL HISTORY: Neuro deficit, acute, stroke suspected COMPARISON: None. TECHNIQUE: CT angiogram of the head and neck was performed with intravenous contrast. 2-D and 3-D refo rmatted images were obtained. This exam was performed [...] Fabiano Montoya MD Report Verified Date/Time: 05/16/2019 01:09:25 Procedure Note Interface, External Ris In - 05/16/2019 1:12 AM ACCESS DEVELOPER FINAL REPORT EXAM: CT, CT Angio, Brain. [...] 1:09:25 Performing Organization Address City/State/Zipcode Phone Number [employer] CT brain/stroke test design (05/15/2019 11:21 PM ACCESS DEVELOPER) Specimen Narrative Performed At FINAL REPORT [employer] EXAM: CT head without contrast. CLINICAL HISTORY: Focal neuro deficit, n ew, fixed or worsening, <6 hours COMPARISON: Same-day brain MRI. TECHNIQUE: CT images of the head were ob tained without intravenous contrast. This exam was performed acco rding to our departmental dose optimization program which [...] Fabiano Montoya MD Report Verified Date/Time: 05/15/2019 23:34:22 Procedure Note Interface, External Ris In - 05/15/2019 11:36 PM ACCESS DEVELOPER FINAL REPORT EXAM: CT head without contrast. [...] Date/Time: 05/15/2019 2 3:34:22 Performing Organization Address City/State/Zipcode Phone Number [facility] Vitamin B12 and Folate (05/15/2019 6:09 AM ACCESS DEVELOPER) Pathologist Sig nature Vitamin B12 472 213 - 816 pg/mL [facility] Folate 19.4 >=7.0 ng/mL [facility] Specimen Blood Narrative Performed At Home Demonstrator ID - [place]INA F [facility] Performing Organization Address City/[facility]/Zipcode Phone Number [address] [address] CENTER Lipid panel (05/15/2019 6:09 AM ACCESS DEVELOPER) Pathologist Sig nature Triglycerides 341 mg/dL [facility] Cholesterol 199 mg/dL [facility] HDL 41 mg/dL [facility] LDL Calculated 90 mg/dL [facility] Specimen Blood Narrative Performed At Triglyceride Reference Range: [facility] Low Risk <150 Borderline 150-199 High Risk 200-499 Very High Risk >=500 Cholesterol Reference Range: Low Risk <200 Borderline 200-239 High Risk >240 HDL Cholesterol Reference Range: Low Risk >=60 High Risk <40 LDL Cholesterol Reference Range: Optimal <100 Near Optimal 100-129 Borderline 130-159 High 160-189 Very High >=190 Home Demonstrator ID - [id number] L Performing Organization Address City/State/Zipcode Phone Number [facility] [address] [place], [place] [id number] [place] Hemoglobin A1c (05/15/2019 6:08 AM ACCESS DEVELOPER) Pathologist Sig nature Hemoglobin A1C 5.8 4.3 - 6.1 % [facility] Specimen Blood Performing Organization Address City/State/Zipcode Phone Number [address] [address] [place] MR brain without IV contrast (05/15/2019 2:26 AM ACCESS DEVELOPER) Specimen Narrative Performed At FINAL REPORT [employer] EXAM: MR, BRAIN, WITHOUT CONTRAST CLINICAL INDICATION: Neuro deficit. Co ncern for stroke. TECHNIQUE: Sagittal and coronal T1-w [...] to prior MRA. Osseous Structures: Expected marrow si gnal. Included Orbits: Prior bilateral lens [place] rgery [...] Denise Rosario MD Report Verified Date/Time: 05/15/2019 04:06:56 Procedure Note Interface, External Ris In - 05/15/2019 4:10 AM ACCESS DEVELOPER FINAL REPORT EXAM: MR, BRAIN, WITHOUT CONTRAST [...] 4:06:56 Performing Organization Address City/State/Zipcode Phone Number [facility] RIS after 01/31/2019 Insurance Payer Benefit Plan / Subscriber ID Effective Phone Address T e Group Dates HUMANA - HUMANA [id number] 2018-[employer] Maps Contracted MEDICARE MGD MEDICARE ADV nt CARE Advance Directives For more information, please contact: [phone] Code Status Date Activated Date Inactivated Comments Full Code 05/14/2019 4:27 PM 05/29/2019 8:25 PM This code status was determined by: Patient
--- OUTSIDE RECORDS SUMMARY | 2020-02-01 08:10 | XMS REPORT | Continuity of Care Document ---
:1940 Author Organization [facility] t Address [address] [place] [address] Care Team Providers Name Role Phone Aaron Morton Primary Care Physician Anna CM, Eva Attending Clinician Unavailable Unknown Attending Clinician Unavailable India Carrasco MD Attending Clinician Pob, Lab Main Attending Clinician Unavailable Doctor Unassigned, Name Attending Clinician Unavailable [facility] Attending Clinician Unavailable [facility] Attending Clinician Unavailable Only, Test Attending Clinician Unavailable India Carrasco MD Attending Clinician INDIA CARRASCO Attending Clinician Unavailable Katya DOHERTY, Maria Luz Attending Clinician Claudia Mora Attending Clinician Dale Flores MD Attending Clinician Shalonda DOHERTY Attending Clinician Charles Lebron MD Attending Clinician [phone] Sami Flower MD Attending Clinician Jun DOHERTY Attending Clinician Yvan Antonio MD Attending Clinician Gonzalo DOHERTY Attending Clinician Thomas Daniels MD Attending Clinician Arslan Ann MD Attending Clinician Chetan Hightower MD Attending Clinician Virtual Attending Clinician Unavailable Iam Campos MD Attending Clinician Bakari Mackenzie MD Attending Clinician DALE FLORES Attending Clinician Unavailable Jean Owens Attending Clinician Unavailable India Carrasco MD Man Admitting Clinician SHALONDA Admitting Clinician Unavailable INDIA CARRASCO Admitting Clinician Unavailable Payers Payer Name Policy Type Policy Effective Date Expiration Date Sour ce Number HUMANA - MEDICARE [id number] [address] [facility] MGD CAREHUMANA 00:00:00 - Medical MEDICARE Center [id number] 019-PresentMaps Contracted Problems Condition Condition Condition Status Onset Resolution Last Treating Co mments Source Name Details Category Date Date Treatment Clinician Date Acute Acute Disease Active 2020-[address] [facility] blood loss blood loss 2 Ella k[facility] - anemia anemia 00:00: Medical 00 [place] Gout flare Gout flare Disease Active 2020-[address] [facility] - 00:00: Medical 00 [place] COPD COPD Disease Active 2020-[address] [facility] (chronic (chronic 2 [facility] - obstructiv obstructiv 00:00: Ar dical e e 00 Center pulmonary pulmonary disease) disease) Gastroesop Gastroesop Disease Active 2020-[address] hageal hageal 2- [facility] - reflux reflux 00:00: Medical disease disease 00 Center with with esophagiti esophagiti s s HLD HLD Disease Active 2020-[address] [facility] (hyperlipi (hyperlipi 2- Ella kes - demia) demia) 00:00: Medical 00 [place] Hypothyroi Hypothyroi Disease Active 2020-[address] dism dism 2- [facility] - 00:00: Medical 00 [place] Coagulopat Coagulopat Disease Active 2020-[address] hy hy 2- [facility] - 00:00: Medical 00 [place] 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 00:00: Medica l 00 Center Cerebral Cerebral Disease Active 2020-0 [facility] hypoperfus hypoperfus 2-05 [facility] - ion ion 00:00: Medical 00 [place] Hypertensi Hypertensi Disease Active [facility] ve crisis ve crisis 2-05 [facility] - 00:00: Medical [place] Atrial Atrial Disease Active [facility] fibrillati fibrillati 2-04 Ella kes - on on 00:00: Medical [place] Hypertensi Hypertensi Disease Active [facility] on on 2- [facility] - 00:00: Medical [place] Carotid Carotid Disease Active [facility] stenosis, stenosis, 2-04 [facility] - left left 00:00: Medical [place] Acute Acute Disease Active [facility] ischemic ischemic 2-03 [facility] - stroke stroke 00:00: Medical [place] RUE RUE Disease Active [facility] weakness weakness 2- [facility] - 00:00: Medical 00 [place] Allergies, Adverse Reactions, Alerts Allergy Allergy Status Severity Reaction(s) Onset Inactive Treating Comm ents Source Name Type Date Date Clinician Meperidi Propensi Active Nausea And Per [facility] to Vomiting 2- daughter [facility] - adverse 00:00: Medical reaction 00 [place] Amlodipi Propensi Active 2018-[address] [facility] ne ty to 2-19 [facility] - adverse 00:00: Medical reaction 00 [place] s Hydrocod Propensi Active 2018-[address] one-Acet ty to 2-19 [facility] - aminophe adverse 00:00: Medical n reaction 00 [place] s Morphine Propensi Active 2018-[address] ty to 2-19 [facility] - adverse 00:00: Medical reaction Center s Baclofen Propensi Active Other (See 2016-[address] ty to Comments) 2-25 [facility] - adverse 00:00: Medical reaction 00 Center s Propoxyp Propensi Active Nausea And 2016-[address] hene ty to Vomiting 2-25 [facility] - Napsylat adverse 00:00: Medical e reaction 00 [place] Cycloben Propensi Active Nausea And 2015-[address] zaprine ty to Vomiting 2-21 [facility] - adverse 00:00: Medical reaction 00 [place] s Codeine Propensi Active Nausea And 2015-[address] [facility] ty to Vomiting, 2-20 [facility] - adverse Palpitations 00:00: Med ical reaction , Hives 00 Center s Social History Social Habit Start Date Stop Date Quantity Comments Source History of tobacco Current smoker [facility] use Medical Center History [facility] - Alcohol Std Drinks Medica l [place] History [facility] - Alcohol Binge Medical Carolee ter Sex Assigned At [facility] Cigarettes smoked 2019-08-30 2019-08-30 [facility] jose - current (pack per 00:00:00 00:00:00 [facility] Center day) - Reported Tobacco use and 2019-08-30 2019-08-30 Never used [facility] Ella jose - exposure 00:00:00 00:00:00 [facility] Alcohol intake 2019-08-30 2019-08-30 Current [facility] Marc es - 00:00:00 00:00:00 non-drinker of Medical Ce nter alcohol (finding) History [facility] 2019-03-31 2019-03-31 [address] [facility] [address] [facility] - Alcohol Frequency 00:00:00 00:00:00 [facility] Smoking Status Start Date Stop Date Source Former smoker 2019-08-30 00:00:00 2019-08-30 00:00:00 [facility] Medications Ordered Filled Start Stop Current Ordering Indication Dosage Frequency Signature Comments Components Source Medication Medication Date Date Medication? Clinician (SIG) Name Name aspirin 325 2019- Yes 325mg QD Take [address] MG tablet 5-27 mg by [facility] - 10:35: mouth Medical 24 daily. [place] ticagrelor Yes 90mg Q.5D Take [address] (BRILINTA) 5-27 by mouth 2 Marc es - 90 mg Tab 10:35: (two) Medical tablet 24 times Center daily. torsemide Yes 20mg QD Take [address] (DEMADEX) 5-20 by mouth [facility] - 20 MG 09:36: daily. Medical tablet 26 Center azilsartan Yes 80mg QD Take [address] medoxomil 5-20 by mouth [facility] - (EDARBI) 80 09:31: daily . Med ical mg Tab 59 Center ranitidine Yes 150mg QD Take [address] (ZANTAC) 5-20 mg by [facility] - 150 MG 09:31: mouth Medical capsule 59 every Center evening . torsemide 2020-0 2020- No 20mg QD Take [address] (DEMADEX) 5-20 05-20 by mouth [facility] - 10 MG 09:31: 00:00 daily . Medical tablet 57 :00 Center rivaroxaban 2020-0 2020- No 20mg Take [address] [facility] (XARELTO) 3-05 05-20 tablet (20 Marc es - 20 mg Tab 00:00: 00:00 mg total) Me dical tablet 00 :00 by mouth Center daily with dinner. tamsulosin 2020-0 Yes .4mg QD Take 1 [facility] (FLOMAX) 2-18 capsule [facility] - 0.4 mg Cap 00:00: (0.4 mg Medi jayce 24 hr 00 total) by Center capsule mouth daily. cloNIDine 2020-0 2020- No .3mg Take 1 [facility] HCl 2-18 05-20 tablet [facility] - (CATAPRES) 00:00: 00:00 (0.3 mg Med ical 0.3 MG 00 :00 total) by Center tablet mouth 2 (two) times daily before meals. aspirin 81 2020-0 2020- No 81mg QD Take [address] MG chewable 2-18 05-20 tablet (81 L ukes - tablet 00:00: 00:00 mg total) Medic al 00 :00 by mouth Center daily. allopurinol 2020-0 Yes 100mg QD Take [address] (ZYLOPRIM) 2-17 mg by [facility] - 100 MG 18:25: mouth Medical tablet 17 daily. Center colchicine 2020-0 Yes .6mg Take 0.[address] [facility] (COLCRYS) 2-17 mg by [facility] - 0.6 mg 18:25: mouth as Medical tablet 17 needed. Center gabapentin 2020-0 Yes 300mg Q.[id number] Take [address] (NEURONTIN) 2-17 [id number] mg by L ukes - 300 MG 18:25: 3D mouth 3 Medical capsule 17 (three) Center times daily. metFORMIN 2020-0 Yes 500mg Take [address] [facility] [facility] (GLUCOPHAGE 2-17 mg by [facility]ukes - ) 500 MG 18:25: mouth Medical tablet 17 daily with Center dinner . nebivolol 2020-0 Yes 20mg Q.5D Take [address] (BYSTOLIC) 2-17 by mouth 2 Marc es - 10 MG 18:25: (two) Medical tablet 17 times Center daily . albuterol 2020-0 Yes 2{puff} Inhale [address] HFA 2-17 puffs by [facility]ukes - (VENTOLIN 18:25: mouth via Med ical HFA) 90 17 inhaler Center mcg/actuati every 6 on inhaler (six) hours as needed for Wheezing. levothyroxi 2020-0 Yes 50ug Take [address] [facility] ne 2-17 mcg by [facility]ukes - (SYNTHROID, 18:25: mouth Medic al LEVOTHROID) 17 Every Center 50 MCG morning on tablet an empty stomach. hydrALAZINE 0 2020- No 100mg Q.5D Take [address] (APRESOLINE 2-17 02-17 mg by [facility]ukes - ) 100 MG 15:39: 00:00 mouth 2 Medic al tablet 37 :00 (two) Center times daily. rivaroxaban 2019-0 2020- No Take by [facility] (XARELTO) 2-17 02-17 mouth [facility] - 20 mg Tab 15:39: 00:00 daily with M edical tablet 37 :00 dinner. Center cloNIDine 2019-0 2019- No .2mg Q.[id number] Take 0.[address] HCl 2-17 02-17 [id number] mg by [facility] - (CATAPRES) 15:39: 00:00 3D mouth 3 Med ical 0.2 MG 34 :00 (three) Center tablet times daily. hydrALAZINE 2019-0 Yes 100mg Q.[id number] Take [address] (APRESOLINE 2-17 [id number] tablet [facility]ukes - ) 100 MG 00:00: 3D (100 mg Medica l tablet 00 total) by Center mouth 3 (three) times daily. melatonin 2020-0 Yes 10mg QD Take [address] 10 mg Tab 2-17 by mouth [facility] - 00:00: nightly. Medical 00 Center pantoprazol 2020-0 Yes 40mg QD Take [address] [facility] e 2-17 tablet (40 [facility] - (PROTONIX) 00:00: mg total) Me dical 40 MG 00 by mouth Center tablet daily. cloNIDine 2019-0 2020- No .2mg QD Take 1 [facility] HCl 2-17 02-16 tablet [facility] - (CATAPRES) 00:00: 23:59 (0.2 mg Med ical 0.2 MG 00 :00 total) by Center tablet mouth nightly. atorvastati No 80mg QD Take [address] n (LIPITOR) 05-29-16 tablet (80 L ukes - 80 MG 00:00: 23:59 mg total) Medica l tablet 00 :00 by mouth Center nightly. ipratropium 2019- No 3mL Take [address] -albuterol 05-29-20 by [facility]ukes - (DUO-NEB) 00:00: 00:00 nebulizati M edical 0.5 mg-3 00 :00 on every 4 Cente r mg(2.5 mg (four) base)/3 mL hours as nebulizer needed for solution Wheezing for up to 360 days. ferrous 2019- No 325mg Take [address] [facility] sulfate 325 05-29 tablet [facility] - (65 FE) MG 00:00: 00:00 (325 mg Med ical tablet 00 :00 total) by Center mouth 2 (two) times daily with breakfast and dinner. senna 2019- No 8.6mg QD Take [address] (SENOKOT) 05-29-20 tablet [facility] - 8.6 mg 00:00: 00:00 (8.6 mg Medical tablet 00 :00 total) by Center mouth nightly. ticagrelor 2019- No 90mg Q.5D Take [address] (BRILINTA) 05-29 03-04 tablet (90 Ella kes - 90 mg Tab 00:00: 23:59 mg total) Me dical tablet 00 :00 by mouth 2 Center (two) times daily for 16 days. guaiFENesin 2019- No 600mg Q.5D Take [address] (MUCINEX) 05-29 tablet [facility] - 600 mg 12 00:00: 23:59 (600 mg Medi jayce hr tablet 00 :00 total) by Cente r mouth 2 (two) times daily for 10 days. benzonatate 2019- No 100mg Take [address] (TESSALON) 05-29 capsule [facility] - 100 MG 00:00: 23:59 (100 mg Medical capsule 00 :00 total) by Center mouth 3 (three) times daily as needed for Cough for up to 7 days. predniSONE 40mg QD Take [address] (DELTASONE) 217 02- tablets Luke s - 10 MG 00:00: 23:59 (40 mg Medical tablet 00 :00 total) by Center mouth daily for 5 days. doxepin 25mg QD Take [address] (SINEQUAN) 05-15 by mouth Luke s - 25 MG 14:19: 00:00 nightly. Medical capsule 34 :00 [place] amLODIPine No 5mg QD Take [address] (NORVASC) 05-1503 by mouth [facility] - 2.5 MG 14:19: 00:00 daily . Medical tablet 05 :00 [place] azilsartan 2018-[address] [facility] medoxomil 06-01 12-20 mouth. [facility] - 80 mg Tab 12:31: 00:00 Medical 46 :00 [place] amLODIPine 2018-04 5mg QD Take [address] (NORVASC) 5 04-23 by mouth Marc es - MG tablet 00:00: 00:00 daily. Medic al 00 :00 [place] Vital Signs Vital Name Observation Time Observation Value Comments Source Systolic blood 2019-09-06 11:36:00 110 mm[Hg] [facility] pressure [facility] Diastolic blood 2019-09-06 11:36:00 65 mm[Hg] [facility] S t [facility] Heart rate 2019-09-06 11:36:00 62 /min [facility] Body temperature 2019-09-06 11:36:00 35.78 Sri [facility] Respiratory rate 2019-09-06 11:36:00 20 /min [facility] Oxygen saturation in 2019-09-06 11:36:00 96 /min [facility] Arterial blood by Medical Ce nter Pulse oximetry Body height 2019-08-30 09:30:00 167.6 cm [facility] Body weight 2019-08-30 09:30:00 90.719 kg [facility] BMI 2019-08-30 09:30:00 32.28 kg/m2 [facility] Procedures Procedure Date / Time Performing Clinician Source Performed TRANSFUSION SERVICE 2019-09-07 17:53:54 Provider, Default [facility] REPORT - SCAN Scanning [facility] SARS-COV2/RT-PCR (HS 2019-09-07 00:01:00 [facility] - & REF LABS) [facility] ECG 12-LEAD 2019-09-06 09:35:00 Unknown, Hl7 Doctor [facility] POCT-P2Y12 PLATELET 2019-09-06 09:34:00 Livia Mora [facility] POCT-ASPIRIN PLATELET 2019-09-06 09:34:00 Livia Mora [facility] BASIC METABOLIC PANEL 2019-09-06 09:34:00 Livia Mora [facility] (7) [facility] PT/APTT 2019-09-06 09:33:00 Livia Mora [facility] TYPE AND SCREEN, 2019-09-06 09:33:00 Livia Mora [facility] AUTOMATED [facility] CBC W/PLT COUNT & AUTO 2019-09-06 09:33:00 Livia Mora [facility] DIFFERENTIAL [facility] RHYTHM STRIP - SCAN 2019-05-31 11:43:59 Provider, Default [facility] POCT-GLUCOSE METER 2019-05-29 12:35:00 Kevin Antonio [facility] POCT-GLUCOSE METER 2019-05-29 07:40:00 Kevin Antonio [facility] POCT-GLUCOSE METER 2019-05-28 20:54[facility] 2019-05-28 17:20[facility]SE [facility] 2019-05-28 11:38:00 [facility]SE METER 2019-05-28 07:25:00 [facility] POCT-GLUCOSE METER 2019-05-27 22:17:[facility] HEMO[facility]IN AND 2019-05-27 10:27:00 Nikki Zuniga [facility] POCT-GLUCOSE METER 2019-05-26 23:30:00 [facility] PO[facility]-GLUCOSE METER 2019-05-26 11:54:00 [facility] HEMOGLOBIN AND 2019-05-26 05:18:00 Nikki Zuniga [facility] BASIC METABOLIC PANEL 2019-05-26 05:18:00 Nikki Zuniga [facility] (7) [facility] MAGNESIUM 2019-05-26 05:18:00 Nikki Zuniga [facility] POCT-GLUCOSE METER 2019-05-25 22:12:00 Nikki Zuniga [facility] XR CHEST 1 VIEW 2019-05-25 19:24:00 Nikki Zuniga [facility] PORTABLE/BEDSIDE [facility] POCT-GLUCOSE METER 2019-05-25 16:25:00 Nikki Zuniga [facility] POCT-GLUCOSE METER 2019-05-25 12:53:00 Nikki Zuniga [facility] POCT-GLUCOSE METER 2019-05-25 07:55:00 Nikki Zuniga [facility] HEMOGLOBIN AND 2019-05-25 04:53:00 Nikki Zuniga [facility] POCT-GLUCOSE METER 2019-05-24 21:56:00 Nikki Zuniga [facility] TRANSFUSION SERVICE 2019-05-24 17:52:04 Reji Jackson [facility] REPORT - SCAN Scanning [facility] POCT-GLUCOSE METER 2019-05-24 12:28:00 Nikki Zuniga [facility] POCT-GLUCOSE METER 2019-05-24 08:19:00 Nikki Zuniga [facility] BASIC METABOLIC PANEL 2019-05-24 04:59:00 Nikki Zuniga [facility] () [facility] CBC (HEMOGRAM ONLY) 2019-05-24 04:59:00 Nikki Zuniga [facility] PREPARE LEUKO-REDUCED 2019-05-23 23:54:00 Flex Vásquez [facility] RBC [facility] POCT-GLUCOSE METER 2019-05-23 18:26:00 [facility] TRANSFUSION SERVICE 2019-05-23 17:54:38 Provider, Default [facility] REPORT - SCAN Scanning [facility] CBC (HEMOGRAM ONLY) 2019-05-23 05:30:00 Flex Vásquez [facility] BASIC METABOLIC PANEL 2019-05-23 05:30:00 [facility] POCT-GLUCOSE METER 2019-05-23 00:16:00 Nikki Zuniga [facility] TRANSFUSE LEUKO-REDUCED 2019-05-22 16:22:50 Flex Vásquez [facility] RED BLOOD CELLS [facility] POCT-GLUCOSE METER 2019-05-22 05:59:00 [facility] CBC W/PLT COUNT & AUTO 2019-05-22 05:38:00 [facility] DI[facility] PERIPHERAL VASCULAR 2019-05-21 21:10:52 Provider, Default [facility] REPORT SCAN [facility] POCT-GLUCOSE METER 2019-05-21 18:43:00 [facility] TRANSFUSION SERVICE 2019-05-21 17:51:48 Provider, [facility] CBC (HEMOGRAM ONLY) 2019-05-21 13:28:00 Flex Vásquez [facility] MAGNESIUM 2019-05-21 13:28:00 Flex Vásquez [facility] POTASSIUM 2019-05-21 13:28:00 Flex Vásquez [facility] POCT-GLUCOSE METER 2019-05-21 12:58:00 Mundo Mina [facility] POCT-GLUCOSE METER 2019-05-21 06:25:00 [facility] (HE[facility] ONLY) 2019-05-21 05:59:00 Flex Vásquez [facility] BASIC METABOLIC PANEL 2019-05-21 05:59:00 Cesar Mae [facility] (7) [facility] URIC ACID 2019-05-21 05:59:00 Thad Patricia [facility] CBC (HEMOGRAM ONLY) 2019-05-21 00:39:00 Felx Vásquez [facility] POCT-GLUCOSE METER 2019-05-21 00:30:00 Ra Mundohul [facility] PREPARE LEUKO-REDUCED 2019-05-20 23:54:00 Linda Juarez [facility] VENOUS DOPPLER LEGS 2019-05-20 19:30:00 Kenji Carney [facility] TRANSFUSION SERVICE 2019-05-20 17:53:02 Provider, Reji [facility] - REPORT - SCAN Scanning [facility] FERRITIN 2019-05-20 17:50:00 Kenji Carney [facility] TRANSFERRIN 2019-05-20 17:50:00 Kenji Carney [facility] IRON, TIBC, % SAT. 2019-05-20 17:50:00 Kenji Carney [facility] - (WITHOUT FERRITIN) Medical Cente r CBC (HEMOGRAM ONLY) 2019-05-20 17:49:00 Flex Vásquez [facility] XR ANKLE 1 VIEW LEFT 2019-05-20 10:10:00 Kenji Carney [facility] REPORT OF PROCEDURE - 2019-05-20 08:39:57 Estiven Sánchez [facility] ENDOSCOPY [facility] UPPER ENDOSCOPY 2019-05-20 07:56:00 Estiven Sánchez [facility] BASIC METABOLIC PANEL 2019-05-20 04:06:00 Vivien Sharpe [facility] - (7) [facility]ter MAGNESIUM 2019-05-20 04:06:00 Vivien Sharpe, [facility] St Marc es - [facility] nter PHOSPHORUS 2019-05-20 04:06:00 Venpatel Sharpe, [facility] St Marc - [facility] Ce nter CBC (HEMOGRAM ONLY) 2019-05-20 04:06:00 Flex Vásquez [facility] CBC (HEMOGRAM ONLY) 2019-05-20 00:07:00 Flex Vásquez [facility] POCT-GLUCOSE METER 2019-05-19 18:25:00 Mina Flower [facility] CBC (HEMOGRAM ONLY) 2019-05-19 18:21:00 Flex Vásquez CH, I [facility] TRANSFUSE LEUKO-REDUCED 2019-05-19 16:35:17 Kenji Carney [facility] RED BLOOD CELLS [facility] TYPE AND SCREEN, 2019-05-19 13:24:00 Mono Juarez [facility] AUTOMATED Mir [facility] POCT-GLUCOSE METER 2019-05-19 12:18:00 Mina Flower [facility] CBC (HEMOGRAM ONLY) 2019-05-19 12:14:00 Flex Vásquez CH, I [facility] PT/APTT 2019-05-19 07:25:00 Flex Vásquez [facility] FIBRINOGEN 2019-05-19 07:25:00 Flex Vásquez [facility] BASIC METABOLIC PANEL 2019-05-19 06:52:00 Vivien Sharpe [facility] - (7) [facility] Ce nter MAGNESIUM 2019-05-19 06:52:00 Vivien Sharpe, [facility] St Marc [facility] Medical Ce nter PHOSPHORUS 2019-05-19 06:52:00 Vivien Sharpe, [facility] St Marc [facility] Ce nter CBC (HEMOGRAM ONLY) 2019-05-19 05:54:00 Kenji Carney [facility] POCT-GLUCOSE METER 2019-05-19 00:09:00 Mundo Mina [facility] POCT-GLUCOSE METER 2019-05-18 18:09:00 Ra Mundohul [facility] POCT-GLUCOSE METER 2019-05-18 12:11:00 Alfredmission hospitalfershreyaascencion Sharpe, [facility] Ce nter CBC (HEMOGRAM ONLY) 2019-05-18 03:43:00 Chanda Coronel [facility] BASIC METABOLIC PANEL 2019-05-18 03:42:00 Alfredmission hospitalfershreyaascencion Sharpe, [facility] (7) [facility] Ce nter MAGNESIUM 2019-05-18 03:42:00 Alfredmission hospitaltom Sharpe, [facility] Ce nter PHOSPHORUS 2019-05-18 03:42:00 [facility], [facility] Ce nter POCT-GLUCOSE METER 2019-05-17 18:32:00 [facility] Shar[facility], [facility] Ce nter [place] CAROTID ARTERY STENT 2019-05-17 15:25:00 Livia Mora [facility] W PROTECTION Medical C enter PROCEDURE DONE OUTSIDE 2019-05-17 13:00:00 Surgeon Harlan [facility] POCT-GLUCOSE METER 2019-05-17 12:28:00 [facility] Hospital[facility]rett Sharpe [facility] Ce nter APTT 2019-05-17 08:55:00 [facility]/INR 2019-05-17 08:55:00 Livia Mora [facility] POCT-GLUCOSE METER 2019-05-17 06:37:00 Vivien Sharpe [facility] Ce nter BASIC METABOLIC PANEL 2019-05-17 04:12:00 Nikki Zuniga [facility] (7) [facility] POCT-P2Y12 PLATELET 2019-05-17 04:12:00 Livia Mora [facility] AGGREGATION [facility] POCT-ASPIRIN PLATELET 2019-05-17 04:12:00 Livia Mora [facility] APTT 2019-05-17 04:12:00 Berna [facility] CBC (HEMOGRAM ONLY) 2019-05-17 04:12:00 Berna [facility] APTT 2019-05-17 01:19:00 Berna [facility] POCT-GLUCOSE METER 2019-05-16 23:49:00 Vivien Sharpe [facility] nter POCT-GLUCOSE METER 2019-05-16 18:36:00 [facility] Ce nter TRANSFUSION SERVICE 2019-05-16 18:22:25 Provider, Reji [facility] REPORT - SCAN Scanning [facility] [place] CEREBRAL 4 VESSEL 2019-05-16 16:14:00 Livia Mora [facility] ANGIOGRAM [facility] POCT-GLUCOSE METER 2019-05-16 13:29:00 Nikki Zuniga [facility] CAROTID DOPPLER 2019-05-16 12:00:00 Kenji Carney [facility] BILATERAL [facility] PROCEDURE DONE OUTSIDE 2019-05-16 12:00:00 Harlan, [facility] OR [facility] CBC (HEMOGRAM ONLY) 2019-05-16 09:03:00 [facility]a [facility] [facility] APTT 2019-05-16 09:03:00 Kenji Carney [facility] BASIC METABOLIC PANEL 2019-05-16 02:36:00 Nikki Zuniga [place] [id number]) [facility] PT/APTT 2019-05-16 02:36:00 De SotoLivia cardoso [facility] PLATELET COUNT 2019-05-16 02:36:00 Ramzan, Chanda [facility] APTT 2019-05-16 02:36:00 Ramzarafael, [facility] CTA BRAIN 2019-05-15 23:45:00 Manish Graf lewis [facility] CT/CTA CAROTID 2019-05-15 23:45:00 [facility] CT CEREBRAL PERFUSION 2019-05-15 23:45:00 Berna, [facility] CT BRAIN/STROKE TEST 2019-05-15 23:21:[address] [facility] POCT-GLUCOSE METER 2019-05-15 20:45:00 Nikki Zuniga [facility] PROTHROMBIN TIME/INR 2019-05-15 18:48:00 [facility] TYPE AND SCREEN, 2019-05-15 18:47:00 [facility] POCT-GLUCOSE METER 2019-05-15 17:39:00 Nikki Zuniga [facility] POCT-GLUCOSE METER 2019-05-15 11:43:00 Nikki Zuniga [facility] POCT-GLUCOSE METER 2019-05-15 08:38:00 Nikki Zuniga [facility] POCT-GLUCOSE METER 2019-05-15 06:46:00 Nikki Zuniga [facility] BASIC METABOLIC PANEL 2019-05-15 06:09:00 Nikki Zuniga [facility] () [facility] LIPID PANEL 2019-05-15 06:09:00 Nikki Zuniga [facility] VITAMIN B12 AND FOLATE 2019-05-15 06:09:00 Roman ZunigaRehan [facility] CBC (HEMOGRAM ONLY) 2019-05-15 06:08:00 Nikki Zuniga [facility] HEMOGLOBIN A1C 2019-05-15 06:08:00 [facility] BRAIN WITHOUT IV 2019-05-15 02:26:00 Berna Chanda [facility] POCT-GLUCOSE METER 2019-05-14 21:07:00 [facility] BASIC METABOLIC PANEL 2019-03-31 14:07:00 Magnus García [place] [id number]) [facility] ECG 12-LEAD 2019-03-31 13:49:47 Unknown, Hl7 Doctor [facility] BASIC METABOLIC PANEL 2019-03-31 12:28:00 Livia Mora [place] [address]) [facility] PT/APTT 2019-03-31 12:28:00 Livia Mora [facility] CBC W/PLT COUNT & AUTO 2019-03-31 12:28:00 [facility] Start End Encounter Admission Attending Care Care Encounter Source Date/Time Date/Time Type Type Clinicians Facility Department ID 2020-01-25 2020-01-25 Transition Jaz Castillo 1.2.840.114 [id number] 00:00:00 00:00:00 of Care Ermias Ly 350.1.13.10 [place] 4.2.7.2.686 [id number] 2020-01-23 2020-01-24 Hospital Unknown, [facility]ending [facility] 1.2.84 0.114 [id number] 10:26:00 11:59:00 Encounter Khai Carrasco [facility] 350.1.13. 10 Clear 4.2.7.2.686 [place] [id number] Hospital 111 ([facility]) 2020-01-24 2020-01-24 Telephone Khai Carrasco [facility] 1.2.840.114 [id number] 00:00:00 00:00:00 [facility] 350.1.13.10 Clear 4.2.7.2.686 [place] [id number] Medical [facility] Office [facility] 2020-01-22 2020-01-22 Sheetrock Applicator Alicia, [facility] 1.2.840.114 [id number] 12:34:09 12:49:09 Visit Lab Main José Miguel 350.1.13.10 [place] 4.2.7.2.686 [facility] [id number] [address] 2020-01-22 2020-01-22 Orders Doctor SHILPA 1.2.840.114 [id number] 00:00:00 00:00:00 Only Unassigned, KAILYN 350.1.13.10 [facility] 4.2.7.2.686 [id number] [id number] 2020-01-17 2020-01-17 Sheetrock Applicator c-Lab [facility] 1.2.840.114 [id number] 08:19:12 08:49:12 Visit HEALTH 350.1.13.10 CLINICS 4.2.7.2.686 [id number] [facility] 2020-01-15 2020-01-15 Sheetrock Applicator Vls-Lab [facility] 1.2.840.114 [id number] 12:07:39 12:22:39 Visit SPECIALTY 350.1.13.10 CARE 4.2.7.2.686 CENTER AT [id number] [address] 2020-01-15 2020-01-15 Laboratory Only, [facility] 1.2.840.114 [id number] 10:08:01 10:23:01 Only Test [place] 350.1.13.10 [place] 4.2.7.2.686 [place] [id number] [facility] 2020-01-15 2020-01-15 Orders Doctor SHILPA 1.2.840.114 [id number] 00:00:00 00:00:00 Only Unassigned, KAILYN 350.1.13.10 [facility] 4.2.7.2.686 [id number] [id number] 2020-01-08 2020-01-08 Office ElvinKhai [facility] 1.2.840.114 [id number] 10:52:01 16:03:43 Visit [facility] 350.1.13.10 Clear 4.2.7.2.686 [place] [id number] Medical [address] Office Building Results Test Description Test Time Test Comments Results Result [facility] e Comments ECG 12 lead 2019-08-12 Interface, External [facility] 8 Ris In - 09/07/2019 - Med ical 09:27:54 9:27 AM Center CDTVentricular Rate 89 BPMAtrial Rate 89 BPMP-R Interval 126 msQRS Duration 136 msQ-T Interval 424 msQTC Calculation(Bazett) 515 msP [facility] 85 degreesR [facility] -40 degreesT [facility] 64 degreesNormal sinus rhythmLeft axis deviationLeft ventricular hypertrophy with QRS wideningRight bundle branch blockAbnormal ECGWhen compared with ECG of 31-MAR-2019 13:49,Right bundle branch block is no longer PresentConfirmed by MD Kimble Roberto ([id number]) on 09/07/2019 9:27:51 AM SARS-CoV2/RT-PCR ([facility]) 2019-09-07 06:43:00 Test Item Value Reference Range Interpretation Comme nts SARS-COV2/RT-PCR (test code = Not Detected Not Detected, Negative 50577-7) SARS-COV-2 PERFORMING LAB [facility] (test code = 11777-5) [facility] (test code = JACI) Negative results do not preclude SARS-CoV-2 infection and should not be used as [...] of the Act. Fact Sheet for Healthcare Providers:https://www.Veggie Grill/Documents/Xpert%20Xpress %20SARS%20CoV-2/Fact%20Sheets /3023802%99WIZF-ZET-1%20HEAL THCARE%20PROVIDERS%20FACT%20S HEET.pdf Fact Sheet for Healthcare Patients:https://www.BookBub/Documents/Xpert%20Xpress% 20SARS%20CoV-2/Fact%20Sheets/ 3023801%29SGQL-RQA-8%20PATIE NT%20FACT%20SHEET.pdf Performing Laboratory:[facility] [place], [place] [address]alfred[place] [address] [facility] ([facility])2019-09-07 06:43:00 Test Item Value Reference Range Interpretation Comments SARS-COV2/RT-PCR (test Not Detected Not Detected, Negative code = 2697083) SARS-COV-2 PERFORMING LAB [facility] (test code = 7849239) Negative results do not preclude SARS-CoV-2 infection and should not be used as the sole basis for patient management decisions. Negative results must be combined with clinical observations, patient history, and epidemiological information. A false negative result may occur if a specimen is improperly collected, transported or handled.The limit of detection for this assay is 250 copies/mL.This SARS CoV-2 test is a rapid, real-time RT-PCR test intended for the qualitative detection of nucleic acid from SARS-CoV-2 in a nasopharyngeal swab specimen collected from individuals suspected of COVID-19 by their healthcare provider.This test has not been Food and Drug [...] is revoked under Section 564(g) of the Act.Fact Sheet for Healthcare Pro viders:https://www.Kimeltu.Outright/Documents/Xpert%20Xpress%20SARS%20CoV-2/Fact%20Sh eets/302-3802%10YTSD-SGU-0%20HEALTHCARE%20PROVIDERS%20FACT%20SHEET.pdfFact Sheet for Healthcare Patients:https://www.IPXI/Documents/Xpert%20Xpress%20SARS%20CoV-2/Fact%20Sheets/302-3801%20SARS-COV -2%20PATIENT%20FACT%20SHEET.pdfPerforming Laboratory:[facility] [place], [place] [id number] PLATELET AGGREGATION 2019-09-06 11:11:00 Test Item Value Reference Range Interpretation Comments POC-P2Y12 Plt Agg 79 PRU (test code = 2303) JACI (test code = RANGE INFORMATION: PRU JACI) reference range is 194-418. Post Drug Results: Lower PRU levels are associated with expected antiplatelet effect. Values may be below the stated reference range above. The post-drug PRU values reported in the VerifyNow P2Y12 package insert are 18-435. [facility] PLATELET [id number] 11:11:00 Test Item Value Reference Range Interpretation Comments POC-P2Y12 PLATELET AGG (BEAKER) (test 79 PRU code = 2303) RANGE INFORMATION: PRU reference range is 194-418. Post Drug Results: Lower PRU levels are associated with expected antiplatelet effect. Values may be below the stated reference range above. The post-drug PRU values reported in the VerifyNow P2Y12 package insert are 18-435.POCT-ASPIRIN PLATELET AGGREGATION 2019-09-06 11:08:00 Test Item Value Reference Range Interpretation Comments POC-Aspirin Plt Agg 385 ARU (test code = 2302) JACI (test code = RANGE INFORMATION: 350-549 JACI) ARU Therapeutic range for platelet function. 550-700 ARU Non-Therapeutic range for platelet function. [facility] PLATELET [id number] 11:08:00 Test Item Value Reference Range Interpretation Comments POC-ASPIRIN PLATELET AGG (BEAKER) 385 ARU (test code = 2302) RANGE INFORMATION: 350-549 ARU Therapeutic range for platelet function. 550-700 ARU Non-Therapeutic range for platelet function.Type and screen, [id number] 10:37:00 Test Item Value Reference Range Interpretation Comments ABO/RH AUTOMATED (BEAKER) (test A POSITIVE code = 2260) Ab Scrn (test code = 890-4) NEGATIVE [facility] Metabolic [id number] 10:35:00 Test Item Value Reference Range Interpretation Comments Sodium (test code = 138 meq/L 810-554 7167-2) Potassium (test code = 5.4 meq/L 3.5-5.1 H Speci men slightly 2823-3) hemolyzed Chloride (test code = 107 meq/L 98-107 2075-0) CO2 (test code = 23 meq/L 22-29 2028-9) BUN (test code = 60 mg/dL 7-21 H 3094-0) Creatinine (test code 2.09 mg/dL 0.57-1.25 H Specim en slightly = 2160-0) hemolyzed Glucose (test code = 108 mg/dL 70-105 H 2345-7) Calcium (test code = 9.9 mg/dL 8.4-10.2 87954-4) EGFR (test code = 23 mL/min/1.73 [place] [address]-8) NOT ACCURATE CREATININE CLEARANCE IN PREDICTING GLOMERULAR FILTRATION RATE . ESTIMATED GFR I S NOT APPLICABLE FOR DIALYSIS PATIENTS. JACI (test code = JACI) Dermatology Specialist ID - MALOU Raymond Lab Interpretation Abnormal (test code = 77720-3) [facility] METABOLIC [id number] 10:35:00 Test Item Value Reference Range Interpretation [...] S NOT APPLICABLE FOR DIALYSIS PATIEN TS. Dermatology Specialist ID - RAIL [address] FLAT FCBC with platelet count + automated [id number] 10:33:00 Test Item Value Reference Range Interpretation Comments WBC (test code = 6690-2) 14.6 3.5- 10.5 K/L H RBC (test code = 789-8) 3.55 3.93- 5.22 M/L L MCHC (test code = 786-4) 30.8 32.2- 35.5 GM/DL L Hematocrit (test code = 4544-3) 34.1 % 34.1-44.9 MCV (test code = 787-2) 96.1 fL 79.4-94.8 H MCH (test code = 785-6) 29.6 pg 25.6-32.2 RDW (test code = 788-0) 14.0 % 11.7-14.4 Platelets (test code = 777-3) 280 150- 450 K/CU MM MPV (test code = 78286-7) 11.0 fL 9.4-12.3 nRBC (test code = 413) 0 0- 0 /100 WBC % Neutros (test code = 429) 75 % % Lymphs (test code = 430) 14 % % Monos (test code = 431) 6 % % Eos (test code = 432) 4 % % Baso (test code = 437) 0 % # Neutros (test code = 670) 11.01 1.56- 6.13 K/L H # Lymphs (test code = 414) 1.99 1.18- 3.74 K/L # Monos (test code = 415) 0.92 0.24- 0.36 K/L H # Eos (test code = 416) 0.58 0.04- 0.36 K/L H # Baso (test code = 417) 0.04 0.01- 0.08 K/L Immature Granulocytes-Relative 1 % 0-1 (test code = 2801) Lab Interpretation (test code = Abnormal 38455-2) [facility] W/PLT COUNT & AUTO [id number] 10:33:00 Test Item Value Reference Range Interpretation [...] 0-1 PERCENT (BEAKER) (test code = 2801) [id number] 10:12:00 Test Item Value Reference Range Interpretation Comments Protime (test code = 12.8 11.9- 14.2 5902-2) seconds INR (test code = 1.0 <=5.9 6301-6) PTT (test code = 25.6 22.5- 36.0 46745-6) seconds JACI (test code = JACI) Effective 09/07/2018: PT Reference Range ChangeNew: 11.9-14.2 Previous: 11.7-14.7 RECOMMENDED COUMADIN/WARFARIN INR THERAPY RANGESSTANDARD DOSE: 2.0-3.0 Includes: PROPHYLAXIS for venous thrombosis, systemic embolization; TREATMENT for venous thrombosis and/or pulmonary embolus.HIGH RISK: Target INR is 2.5-3.5 for patients wiht mechanical heart valves. Lab Interpretation Normal (test code = 77386-4) [facility] Center[facility]/[id number] 10:12:00 Test Item Value Reference Range Interpretation [...] INR is2.5-3.5 for patients wiht mechanical heart valves.POC-Glucose [id number] 12:47:00 Test Item Value Reference Range Interpretation Comments POC-Glucose Meter (test 133 mg/dL 70-110 H : TE STED AT [facility] code = 1538) [address] [facility], [address]: Dermatology Specialist/Techni gretel ID = [id number] for AVANIGGPAULIE CROWDER REDA Lab Interpretation (test Abnormal code = 08782-0) [facility] [id number] 12:47:00 Test Item Value Reference Range Interpretation Comments POC-GLUCOSE METER 133 mg/dL 70-110 H : TESTED A T [facility] 6720 (BEAKER) (test code [facility], = 1538) [address]: Dermatology Specialist/Techni gretel ID = [id number] for TSEG GAI, TSIGHEREDA POCT-GLUCOSE [id number] 07:59:00 Test Item Value Reference Range Interpretation Comments POC-GLUCOSE METER 125 mg/dL 70-110 H : TESTED A T [facility] 6720 (BEAKER) (test code [facility], = 1538) [address]: Dermatology Specialist/Techni gretel ID = [id number] for TSEG GAI, TSIGHEREDA POCT-GLUCOSE [id number] 21:06:00 Test Item Value Reference Range Interpretation Comments POC-GLUCOSE METER 192 mg/dL 70-110 H : TESTED A T [facility] 6720 (BEAKER) (test code = [facility], 1538) [address]: Dermatology Specialist/Techni gretel ID = [id number] for DE NNIS, MALIHA POCT-GLUCOSE [id number] 17:33:00 Test Item Value Reference Range Interpretation Comments POC-GLUCOSE METER 124 mg/dL 70-110 H : TESTED A T [facility] 6720 (BEAKER) (test code [facility], = 1538) [address]: Dermatology Specialist/Techni gretel ID = [id number] for TSEG GAI, TSIGHEREDA POCT-GLUCOSE [id number] 11:50:00 Test Item Value Reference Range Interpretation Comments POC-GLUCOSE METER 102 mg/dL 70-110 : TESTED A T [facility] 6720 (BEAKER) (test code [facility], = 1538) [address]: Dermatology Specialist/Techni gretel ID = [id number] for TSEG GAI, TSIGHEREDA POCT-GLUCOSE [id number] 07:44:00 Test Item Value Reference Range Interpretation Comments POC-GLUCOSE METER 96 mg/dL 70-110 : [facility] (test code [facility], = 1538) [address]: Dermatology Specialist/Techni gretel ID = [id number] for TSEG CHARLOTTE BUTTEREDA POCT-GLUCOSE [id number] 22:28:00 Test Item Value Reference Range Interpretation Comments POC-GLUCOSE METER 201 mg/dL 70-110 H : Notified RN/MD: (GIFTY) (test code = TESTED AT [facility] 6720 1538) [facility], [address]: Dermatology Specialist/Techni gretel ID = [id number] for LATHBRIDGE, AMRITA ICE Hemoglobin and [id number] 11:01:00 Test Item Value Reference Range Interpretation Comments Hemoglobin (test code = 9.3 11.2- 15.7 GM/DL L 786-4) Hematocrit (test code = 28.8 % 34.1-44.9 L 4544-3) JACI (test code = JACI) Dermatology Specialist ID - [id number] Lab Interpretation (test Abnormal code = 22270-2) [facility] CenterHEMOGLOBIN AND [id number] 11:01:00 Test Item Value Reference Range Interpretation Comments HEMOGLOBIN (BEAKER) (test code = 9.3 GM/DL 11.2-15.7 L 410) HEMATOCRIT (BEAKER) (test code = 28.8 % 34.1-44.9 L 411) Dermatology Specialist ID - [id number]-GLUCOSE [id number] 23:42:00 Test Item Value Reference Range Interpretation Comments POC-GLUCOSE METER 158 mg/dL 70-110 H : Notified RN/: (GIFTY) (test code = TESTED AT [facility] 6720 1538) [facility], [address]: Dermatology Specialist/Techni gretel ID = [id number] for LATHBRIDGE, AMRITA ICE POCT-GLUCOSE [id number] 12:06:00 Test Item Value Reference Range Interpretation Comments POC-GLUCOSE METER 157 mg/dL 70-110 H : [facility] (BEAKER[facility] (test code [facility], = 1538) [address]: Dermatology Specialist/Techni gretel ID = [id number] for LIZ BRYAN [id number] 06:57:00 Test Item Value Reference Range Interpretation Comments Magnesium (test code = 1.7 mg/dL 1.6-2.6 74274-5) JACI (test code = JACI) Dermatology Specialist ID - KEARA W Lab Interpretation (test Normal code = 81352-4) [facility] CenterMAGNESIUM2020-02-14 06:57:00 Test Item Value Reference Range Interpretation Comments MAGNESIUM (BEAKER) (test code = 1.7 mg/dL 1.6-2.6 627) Dermatology Specialist ID - KEARA WBASIC METABOLIC [id number] 06:57:00 Test Item Value Reference Range Interpretation [...] S NOT APPLICABLE FOR DIALYSIS PATIEN TS. Dermatology Specialist ID - KEARA WHEMOGLOBIN AND [id number] 05:42:00 Test Item Value Reference Range Interpretation Comments HEMOGLOBIN (BEAKER) (test code = 8.3 GM/DL 11.2-15.7 L 410) HEMATOCRIT (BEAKER) (test code = 26.4 % 34.1-44.9 L 411) Dermatology Specialist ID - [id number]-GLUCOSE [id number] 22:26:00 Test Item Value Reference Range Interpretation Comments POC-GLUCOSE METER 137 mg/dL 70-110 H : TESTED A T [facility] 6720 (BEAKER) (test code = HUMBERTO Mackenzie [facility], 1538) [address]: Dermatology Specialist/Techni gretel ID = [id number] for MALLORY GRAHAM RAD, CHEST, 1 VIEW, NON [id number] 21:41:00Reason for exam:->shortness of breath, coughShould this be performed at the bedside?->YesFINAL REPORT RAD, CHEST, 1 VIEW, NON DEPT INDICATION: shortness of breath, cough COMPARISON: None available FINDINGS: Portable frontal view of the chest. IMPRESSION: Lungs andpleura: Lungs are clear. No pleural effusion. No pneumothorax.Heart and mediastinum: Within normal limits. Atherosclerotic calcifications of the thoracic aorta.Additional findings: Osseous structures are unremarkable. Signed: Annelise Davis Verified Date/Time: 05/25/2019 21:41:23 XR chest 1 view portable / [id number] 21:41:00 Interface, External Ris In - 05/25/2019 9:43 PM CSTFINAL REPORT RAD, CHEST, 1 VIEW, NON DEPT INDICATION: shortness of breath, cough COMPARISON: None available FINDINGS: Portablefrontal view of the chest. IMPRESSION: Lungs and pleura: Lungs are clear. No pleural effusion. No pneumothorax.Heart and mediastinum: Within normal limits. Atherosclerotic calcifications of the thoracic aorta.Additional findings: Osseous structures are unremarkable. Signed: Annelise Davis Verified Date/Time: 05/25/2019 21:41:23 Electronically signed by: ANNELISE DAVIS MDon 05/25/2019 09:41 [facility] [id number] 16:37:00 Test Item Value Reference Range Interpretation Comments POC-GLUCOSE METER 217 mg/dL 70-110 H : TESTED A T [facility] 6720 (BEAKER) (test code = HUMBERTO Mackenzie [place], 1538) [address]: Dermatology Specialist/Techni gretel ID = [id number] for NITA GRANGER POCT-GLUCOSE [id number] 13:05:00 Test Item Value Reference Range Interpretation Comments POC-GLUCOSE METER 196 mg/dL 70-110 H : TESTED A T [facility] 6720 (BEAKER) (test code = [facility], 153) [address]: Dermatology Specialist/Techni gretel ID = [id number] for RO DGERS, JAMECA POCT-GLUCOSE [id number] 08:49:00 Test Item Value Reference Range Interpretation Comments POC-GLUCOSE METER 95 mg/dL 70-110 : TESTED A T [facility] 6720 (BEAKER) (test code = [facility], 153) [address]: Dermatology Specialist/Techni gretel ID = [id number] for RODG ERS, ROGERIOECA HEMOGLOBIN AND [id number] 05:24:00 Test Item Value Reference Range Interpretation Comments HEMOGLOBIN (BEAKER) (test code = 8.4 GM/DL 11.2-15.7 L 410) HEMATOCRIT (BEAKER) (test code = 27.0 % 34.1-44.9 L 411) Dermatology Specialist ID - [id number]-GLUCOSE [id number] 22:08:00 Test Item Value Reference Range Interpretation Comments POC-GLUCOSE METER 164 mg/dL 70-110 H : TESTED A T [facility] 6720 (BEAKER) (test code = [facility], 153) [address]: Dermatology Specialist/Techni gretel ID = [id number] for MALLORY GRAHAM POCT-GLUCOSE [id number] 12:57:00 Test Item Value Reference Range Interpretation Comments POC-GLUCOSE METER 156 mg/dL 70-110 H : TESTED A T [facility] 6720 (BEAKER) (test code = [facility], 153) [address]: Dermatology Specialist/Techni gretel ID = [id number] for RO DGERS, JAMECA POCT-GLUCOSE [id number] 08:38:00 Test Item Value Reference Range Interpretation Comments POC-GLUCOSE METER 102 mg/dL 70-110 : TESTED A T [facility] 6720 (BEAKER) (test code = [facility], 153) [address]: Dermatology Specialist/Techni gretel ID = [id number] for RO DGERS, JAMECA BASIC METABOLIC [id number] 06:30:00 Test Item Value Reference Range Interpretation [...] S NOT APPLICABLE FOR DIALYSIS PATIEN TS. Dermatology Specialist ID - [id number] (Hemogram only)2019-05-24 05:51:00 Test Item Value Reference Range Interpretation Comments WBC (test code = 6690-2) 11.1 3.5- 10.5 K/L H RBC (test code = 789-8) 2.67 3.93- 5.22 M/L L MCHC (test code = 786-4) 31.7 32.2- 35.5 GM/DL L Hematocrit (test code = 4544-3) 24.6 % 34.1-44.9 L MCV (test code = 787-2) 92.1 fL 79.4-94.8 MCH (test code = 785-6) 29.2 pg 25.6-32.2 RDW (test code = 788-0) 14.1 % 11.7-14.4 Platelets (test code = 777-3) 283 150- 450 K/CU MM MPV (test code = 35164-1) 11.1 fL 9.4-12.3 nRBC (test code = 413) 0 0- 0 /100 WBC Lab Interpretation (test code = Abnormal 01828-1) [facility])2019-05-24 05:51:00 Test Item Value Reference [...] WBC 0-0 (BEAKER) (test code = 413) Prepare Leuko-Red [id number] 23:54:00 Test Item Value Reference Range Interpretation Comments CROSSMATCH (test code = 2264) COMPATIBLE Unit ABO (test code = A Pos 4408391) UNIT NUMBER (test code = [id number] 934-0) Status (test code = 9825997) [facility] Blood Bank Product (test code RED BLOOD CELLS = 2263) PRODUCT CODE (test code = B3767F62 933-2) [facility] [id number] 18:38:00 Test Item Value Reference Range Interpretation Comments POC-GLUCOSE METER 243 mg/dL 70-110 H : Notified RN/MD: (GIFTY) (test code = TESTED AT [facility] 6720 1538) [place] [place], [address]: Dermatology Specialist/Techni gretel ID = [id number] for St sanchez Keiry BASIC METABOLIC [id number] 06:25:00 Test Item Value Reference Range Interpretation [...] S NOT APPLICABLE FOR DIALYSIS PATIEN TS. Dermatology Specialist ID - [id number] (HEMOGRAM ONLY)2019-05-23 05:56:00 Test [...] 0-0 (BEAKER) (test code = 413) POCT-GLUCOSE [id number] 00:29:00 Test Item Value Reference Range Interpretation Comments POC-GLUCOSE METER 126 mg/dL 70-110 H : TESTED A T [facility] 6720 (BEAKER) (test code = [place], 1538) [id number]: Dermatology Specialist/Techni gretel ID = [id number] for MASON PHELPS CBC W/PLT COUNT & AUTO [id number] 06:36:00 Test Item Value Reference Range Interpretation [...] PERCENT (BEAKER) (test code = 2801) POCT-GLUCOSE [id number] 06:11:00 Test Item Value Reference Range Interpretation Comments POC-GLUCOSE METER 111 mg/dL 70-110 H : TESTED A T [facility] 67 ([facility]) (test [facility] = [facility], 1538) [address]: Dermatology Specialist/Techni gretel ID = [id number] for RAFAEL CARBAJAL POCT-GLUCOSE [id number] 18:56:00 Test Item Value Reference Range Interpretation Comments POC-GLUCOSE METER 137 mg/dL 70-110 H : Notified RN/MD: (MAKENNAAKER) (test code = TESTED AT [place] [id number] 1538) [facility], [address]: Dermatology Specialist/Techni gretel ID = [id number] for DANDY ESTRADA Urgvvdmkl6745-99-62 13:58:00 Test Item Value Reference Range Interpretation Comments Potassium (test code = 3.9 meq/L 3.5-5.1 2823-3) JACI (test code = JACI) Dermatology Specialist ID - MALOU F Lab Interpretation (test Normal code = 60666-0) [facility] 13:58:00 Test Item Value Reference Range Interpretation Comments POTASSIUM (BEAKER) (test code = 3.9 meq/L 3.5-5.1 379) Dermatology Specialist ID - MALOU [id number] 13:58:00 Test Item Value Reference Range Interpretation Comments MAGNESIUM (BEAKER) (test code = 1.8 mg/dL 1.6-2.6 627) Dermatology Specialist ID - MALOU FCBC (HEMOGRAM ONLY)2019-05-21 13:41:00 [...] 0-0 (BEAKER) (test code = 413) POCT-GLUCOSE [id number] 13:11:00 Test Item Value Reference Range Interpretation Comments POC-GLUCOSE METER 164 mg/dL 70-110 H : Notified RN/MD: (GIFTY) (test code = TESTED AT [facility] 6720 2504) [facility], [address]: Dermatology Specialist/Techni gretel ID = [id number] for DANDY WINSTON Uric [id number] 10:43:00 Test Item Value Reference Range Interpretation Comments Uric Acid (test code = 5.7 mg/dL 2.6-7.2 3084-1) JACI (test code = JACI) Dermatology Specialist ID - MALOU F Lab Interpretation (test Normal code = 81297-2) [facility] [id number] 10:43:00 Test Item Value Reference Range Interpretation Comments URIC ACID (BEAKER) (test code = 5.7 mg/dL 2.6-7.2 773) Dermatology Specialist ID - MALOU FVenous doppler legs axavjbvfi3546-07-92 08:28:09[facility] ECHO HEARTLAB MKCKESSON CPACSRight Impression1. There is no deep venous obstruction in the common femoral, profundafemoral, femoral, popliteal, posterior tibial or peroneal veins wherevisualized.2. There is no superficial venous obstruction in the great saphenous veinwhere visualized.Left Impression1. There is no deep venous obstruction in the common femoral, profundafemoral, fem oral, popliteal, posterior tibial or peroneal veins wherevisualized.2. There is no superficial venous obstruction in the great saphenous veinwhere visualized. Conclusions Summary Venous duplex imaging and compression of the bilateral lower extremities were performed. The veins were technically difficult to visualize due to edema and patient body habitus. The bilateral venous systems were patent and compressible with no evidence of thrombus where visualized. The venous Doppler waveforms were phasic with respiration . Signature Velocities are measured in cm/s ; Diameters are measured in cm Interface, External Ris In - 05/21/2019 8:28 AM CSTPV LAB - Lower Extremities DVT Study Demographics Patient Name BETTY BRAVO Date of Study 05/20/2019 Age 79 Visit Number [id number] Gender Female Accession Number [id number] Date of 1940 Referring Mina Flower Room Number 7518 Physician [employer] Kelsey Burleson RVT Physician ProcedureType of Study: Veins: Lower Extremities DVT Study, VENOUS DOPPLER LEG, BILATERAL. Indications for Study:DVT.PatientStatus:Routine.Study Location:Portable.Technical Quality:Technically Difficult.Risk FactorsHistory of Disease+ + + --+!Diagnosis !Date !Comments !+ + +-- +!Other ! !Carotid Stenosis, Stroke !+ + + +!Hi story/Risk Factors: !05/20/2019!LLE pain !! ! !A fib !! ! !COPD !! ! !HLD !! ! !HTN !! ! !DVT LLE? !+ + + +ImpressionsRight Impression1. There is no deep venous obstruction in the common femoral, profundafemoral, femoral, popliteal, posterior tibial or peroneal veins wherevisualized.2. There is no superficial venous obstruction in the great saphenous veinwhere visualized.Left Impression1. There is no deep venous obstruction in the common femoral, profundafemoral, femoral, popliteal, posterior tibial or peroneal veins wherevisualized.2. There is no superficial venous obstruction in the great saphenous veinwhere visualized. Conclusions Summary Venous duplex imaging and compression of the bilateral lower extremities were performed. The veins were technically difficult to visualize due to edema and patient body habitus. The bilateral venous systems were patent and compressible with no evidence of thrombus where visualized. The venous Doppler waveforms were phasic with respiration . Signature Velocities are measured in cm/s ; Diameters are measured in [facility] BASIC METABOLIC [id number] 06:40:00 Test Item Value Reference Range Interpretation [...] S NOT APPLICABLE FOR DIALYSIS PATIEN TS. Dermatology Specialist DEDE SARAH WPOCT-GLUCOSE [id number] 06:37:00 Test Item Value Reference Range Interpretation Comments POC-GLUCOSE METER 156 mg/dL 70-110 H : TESTED Eva T [facility] 6720 (BEAKER) (test code = [place], 1538) [address]: Dermatology Specialist/Techni gretel ID = [id number] for VA RELA, RAJ CBC (HEMOGRAM ONLY)2019-05-21 [...] 0-0 (BEAKER) (test code = 413) POCT-GLUCOSE [id number] 00:42:00 Test Item Value Reference Range Interpretation Comments POC-GLUCOSE METER 155 mg/dL 70-110 H : TESTED A T [facility] 6720 (BEAKER) (test code = HUMBERTO Mackenzie [facility], 1538) [address]: Dermatology Specialist/Techni gretel ID = [id number] for RAJ YANG [id number] 19:49:00 Test Item Value Reference Range Interpretation Comments Ferritin (test code = 29 ng/mL 5-275 2276-4) JACI (test code = JACI) Dermatology Specialist ID - TERRI M Lab Interpretation (test Normal code = 06464-7) [facility] CenterFERRITIN2020-02-08 19:49:00 Test Item Value Reference Range Interpretation Comments FERRITIN (BEAKER) (test code = 361) 29 ng/mL 5-275 Dermatology Specialist ID - TERRI CUquxhmuvksd6417-16-65 18:51:00 Test Item Value Reference Range Interpretation Comments Transferrin (test code = 211 mg/dL 709-609 9148-6) JACI (test code = JACI) Dermatology Specialist ID - TERRI M Lab Interpretation (test Normal code = 27760-5) [facility] CenterIron, TIBC, % sat. (without ferritin)2019-05-20 18:51:00 Test Item Value Reference Range Interpretation Comments Iron (test code = 2498-4) 14.0 ug/dL 40-160 L TIBC (test code = 2500-7) 264 ug/dL 250-450 Iron % Saturation (test 5 % 20-55 L code = 2502-3) JACI (test code = JACI) Dermatology Specialist ID Ross Chao Lab Interpretation (test Abnormal code = 11659-7) [facility] CenterTRANSFERRIN2020-02-08 18:51:00 Test Item Value Reference Range Interpretation Comments TRANSFERRIN (BEAKER) (test code = 211 mg/dL 174-382 541) Dermatology Specialist ID - TERRI HENRY, TIBC, % SAT. (WITHOUT FERRITIN)2019-05-20 18:51:00 Test Item Value Reference Range Interpretation Comments IRON (BEAKER) (test code = 547) 14.0 ug/dL 40.0-160.0 L TOTAL IRON BINDING CAPACITY 264 ug/dL 250-450 (BEAKER) (test code = 769) IRON % SATURATION (2) (BEAKER) 5 % 20-55 L (test code = 2590) Dermatology Specialist ID - TERRI MRAD, ANKLE, 1 VIEW, [id number] 18:09:00Reason for exam:- >left ankle painShould this be performed at the bedside?->YesFINAL REPORT TECHNIQUE: Two views of left ankle HISTORY: left ankle pain. COMPARISON: None. IMPRESSION:No acute displaced fracture or dislocation. Joint spaces are within normal limits.Minimal Achilles enthesopathy. Large plantar calcaneal spur and enthesopathy. Signed: Steven Lyman Verified Date/Time: 05/20/2019 18:09:20 Reading Location: [facility] C013 Consult Reading Room XR ankle 1 view [id number] 18:09:00Interface, External Ris In - 05/20/2019 6:11 PM CSTFINAL REPORT TECHNIQUE: Two views of left ankle HISTORY: left ankle pain. COMPARISON: None. IMPRESSION:No acute displaced fracture or dislocation. Joint spaces are within normal limits.Minimal Achilles enthesopathy. Large plantar calcaneal spur and enthesopathy. Signed: Steven Lyman Verified Date/Time: 05/20/2019 18:09:20 Reading Location: [facility] B1 C013W Consult Reading Room [facility] (HEMOGRAM ONLY)2019-05-20 17:58:00 Test Item Value Reference [...] WBC 0-0 (BEAKER) (test code = 413) [id number] 05:29:00 Test Item Value Reference Range Interpretation Comments Phosphorus (test code 3.3 mg/dL 2.3-4.7 Specim en = 2777-1) slightly hemolyzed JACI (test code = JACI) Dermatology Specialist ID - TERRI M Lab Interpretation Normal (test code = 14774-1) [facility] CenterMAGNESIUM2020-02-08 05:29:00 Test Item Value Reference Range Interpretation Comments MAGNESIUM (BEAKER) 1.9 mg/dL 1.6-2.6 Specimen slightly (test code = 627) hemolyzed Dermatology Specialist ID - TERRI [id number] 05:29:00 Test Item Value Reference Range Interpretation Comments PHOSPHORUS (BEAKER) 3.3 mg/dL 2.3-4.7 Specimen slightly (test code = 604) hemolyzed Dermatology Specialist ID - TERRI MBASIC METABOLIC [id number] 05:29:00 Test Item Value Reference Range Interpretation [...] S NOT APPLICABLE FOR DIALYSIS PATIEN TS. Dermatology Specialist ID - TERRI MCBC (HEMOGRAM ONLY)2019-05-20 04:51:00 [...] 0-0 (BEAKER) (test code = 413) POCT-GLUCOSE [id number] 18:36:00 Test Item Value Reference Range Interpretation Comments POC-GLUCOSE METER 101 mg/dL 70-110 : TESTED A T [facility] 6720 (BEAKER) (test code = [place], 1538) [address]: Dermatology Specialist/Techni gretel ID = [id number] for DANDY ESTRADA CBC (HEMOGRAM ONLY)2019-05-19 18:33:00 Test Item Value [...] 0-0 (BEAKER) (test code = 413) POCT-GLUCOSE [id number] 12:30:00 Test Item Value Reference Range Interpretation Comments POC-GLUCOSE METER 130 mg/dL 70-110 H : [facility] (BEAKER[facility] (test code = HUMBERTO Mackenzie [place], 1538) [address]: Dermatology Specialist/Techni gretel ID = [id number] for DANDY WINSTON [id number] 08:02:00 Test Item Value Reference Range Interpretation Comments PHOSPHORUS (BEAKER) (test code = 2.5 mg/dL 2.3-4.7 604) Dermatology Specialist ID - TERRI [id number] 08:02:00 Test Item Value Reference Range Interpretation Comments MAGNESIUM (BEAKER) (test code = 1.6 mg/dL 1.6-2.6 627) Dermatology Specialist ID - TERRI MBASIC METABOLIC [id number] 08:02:00 Test Item Value Reference Range Interpretation [...] S NOT APPLICABLE FOR DIALYSIS PATIEN TS. Dermatology Specialist ID - TERRI MYpfivdciws3576-23-00 07:40:00 Test Item Value Reference Range Interpretation Comments Fibrinogen (test code = 3255-7) 489 mg/dl 225-434 H Lab Interpretation (test code = Abnormal 70000-6) [facility] CenterFIBRINOGEN2020 07:40:00 Test Item Value Reference Range Interpretation Comments FIBRINOGEN LEVEL (BEAKER) (test 489 mg/dl 225-434 H code = 658) PT/[id number] 07:40:00 Test Item Value Reference Range Interpretation [...] RED BLOOD CELLS 0 /100 WBC 0-0 (AKER) (test code = 413) POCT-GLUCOSE [id number] 00:26:00 Test Item Value Reference Range Interpretation Comments POC-GLUCOSE METER 110 mg/dL 70-110 : Notified RN/MD: ([facility]) (test code = TESTED AT [place] [address]38) [facility], [address]: Dermatology Specialist/Techni gretel ID = [id number] for CHRIS PEREZ POCT-GLUCOSE [id number] 18:22:00 Test Item Value Reference Range Interpretation Comments POC-GLUCOSE METER 127 mg/dL 70-110 H : [facility] ([facility]) (test code = [facility], 1538) [address]: Dermatology Specialist/Techni gretel ID = [id number] for RADHA DE LOS SANTOS POCT-GLUCOSE [id number] 12:25:00 Test Item Value Reference Range Interpretation Comments POC-GLUCOSE METER 171 mg/dL 70-110 H : [facility] ([facility]) (test code = [facility], 1538) [address]: Dermatology Specialist/Techni gretel ID = [id number] for RADHA DE LOS SANTOS [id number] 04:17:00 Test Item Value Reference Range Interpretation Comments PHOSPHORUS (BEAKER) (test code = 2.0 mg/dL 2.3-4.7 L 604) Dermatology Specialist ID - KEARA [id number] 04:17:00 Test Item Value Reference Range Interpretation Comments MAGNESIUM (BEAKER) (test code = 1.6 mg/dL 1.6-2.6 627) Dermatology Specialist ID Ross SARAH WBASIC METABOLIC [id number] 04:17:00 Test Item Value Reference Range Interpretation [...] S NOT APPLICABLE FOR DIALYSIS PATIEN TS. Dermatology Specialist ID Ross SARAH WCBC (HEMOGRAM ONLY)2019-05-18 03:55:00 [...] 0-0 (BEAKER) (test code = 413) POCT-GLUCOSE [id number] 18:43:00 Test Item Value Reference Range Interpretation Comments POC-GLUCOSE METER 139 mg/dL 70-110 H : TESTED A T [facility] 6720 (BEAKER) (test code = [place], 1538) [address]: Dermatology Specialist/Techni gretel ID = [id number] for RADHA DE LOS SANTOS Carotid Artery Stent Placement w/Njpkmlsfqq9169-37-26 15:10:00Interface, External Ris In - 05/17/2019 3:32 PM CSTFINAL REPORT Date of procedure May 17, 2019 [...] strict sterile technique a 6 Tongan shuttle sheath was inserted through the right common femoral artery into the left common carotid artery. Under systemic anticoagulation to keep the ACT between 250 and 300 and following premedication with Plavix aspirin the following procedure was performed: 1. Pretreatment selective left common carotid arteriogram with biplane and oblique imaging over the carotid bifurcation.2. Pretreatment selective left common carotid arteriogram with biplaneimaging over the intracranial carotid circulation.3. Successful stenting and angioplasty of proximalleft internal carotid artery stenosis.4. Post treatment the left common carotid arteriogram with biplane imaging over the carotid bifurcation.5. Posttreatment left common carotid arteriogram with biplan e imaging over the intracranial carotid circulation. Finding: The pretreatment left common carotid arteriogram with biplane and oblique imaging over the carotid bifurcation demonstrates an irregular plaque involving the origin of the left internal carotid artery with severe stenosis of ktkqiredminxy14%. There is poor delayed antegrade flow distal to the stenotic segment. Following the diagnostic angiogram, and [...] of approximately 70%. A distal protective device (EmbRF Code) was gently navigated through the stenotic segment [...] the stent to the arterial wall with yazidi of the intraluminal flow and mild residual stenosis of approximately 20%. There is no evidence of platelet aggregation, or dissection. Intracranially there is yazidi of good antegrade flow with no evidence [...] MDReport Verified Date/Time: 05/17/2019 15:10:42 Reading Location: [facility] B1 Y018 Neuro Angio Reading Room Electronicallysigned by: KHAI CARRASCO MD on 05/17/2019 03:10 [facility] ANGELA, CAROTID STENT W [id number] 15:10:00Reason for exam:->left carotid stenosisFINAL REPORT Date [...] strict sterile technique a 6 Tongan shuttle sheath was inserted through the right [...] the stent to the arterial wall with yazidi of the intraluminal flow and mild residual stenosis of approximately 20%. There is no evidence of platelet aggregation, or dissection. Intracranially there is yazidi of good antegrade flow with no evidence [...] MDReport Verified Date/Time: 05/17/2019 15:10:42 Reading Location: [facility] A9Y679 Neuro Angio Reading Room Carotid doppler [id number] 13:06:24Ejection FractionSLEH ECHO HEARTLAB MKCKESSON CPACSRight Impression1. The internal carotid artery iswithin normal limits.2. There is non-occluding plaque in the external carotid artery.3. There is non-occluding plaque in the common carotid artery.4. The vertebral artery flow is antegrade and normal.Left Impression1. There is 70-99% diameter reduction in the internal carotid artery withheterogeneous plaque, a peak velocity of >522/178 cm/sec and an ICA/CCA peaksystolic velocity ratio of 5.8.2. There is >50% stenosis in the external carotid artery with a velocity of293/70 cm/sec.3. There is non-occluding plaque in the common carotid artery.4. The vertebral artery was not visualized. Conclusions Summary Carotid duplex scanning and color flow imaging were performed bilaterally. The arterieswere adequately visualized. The right internal carotid artery [...] Diameters are measured in cm Carotid Right Measurements+ +----+----+-----+ --+ + +!Location !PSV !EDV !Angle!%Stenosis 2D!%Stenosis Doppler!Tortuosity !+ +----+----+-----+ + + +!Pr ox CCA !123 !29 !60 ! ! ! !+ +----+----+-----+--------- ---+ + +!Dist CCA !110 !24 !60 ! ! ! !+ +----+----+-----+ + + +!Pr ox ICA!123 !25 !60 ! ! ! !+ +----+----+-----+-------- ----+ + +!Dist ICA !109 !34 !60 ! ! ! !+ +----+----+-----+ + + +!Pr ox ECA !187 !33 !60 ! ! ! !+ +----+----+-----+------- -----+ + +!Vertebral !33.8!7.07!60 ! ! ! !+ +----+----+-----+ + + +!Pr ox Subclavian!135 ! !60 ! ! ! !+ +----+----+-----+ + + + - Additional Measurements:ICAPSV/CCAPSV 1.12.ICAEDV/CCAEDV 1.17. Carotid Left Measurements+ +---+----+-----+ + +---- -------+!Location !PSV!EDV !Angle!%Stenosis 2D!%Stenosis Doppler !Tortuosity !+ +---+ ----+-----+ + + +!Prox CCA !88 !9 !60 ! ! ! !+ +---+----+-----+ + +------- ----+!Dist CCA !90 !12 !60 ! ! ! !+ +--- +----+-----+ + + +!Prox ICA !522!178 !60 ! ! ! !+ +---+----+-----+ + +------ -----+!Dist ICA !134!28 !60 ! ! ! !+ +-- -+----+-----+ + + +!Prox ECA !293!70 !60 !! ! !+ +---+----+-----+ + +----- ------+!Prox Subclavian!164!30.1!60 ! ! ! !+ +---+----+-----+ + + + - Additional Measurements:ICAPSV/CCAPSV5.8.ICAEDV/CCAEDV 19.78. Interface, External Ris In - 05/17/2019 1:06 PM CSTPV LAB - Carotid DuplexStudy Demographics Patient Name BETTY BRAVO Date of Study 05/16/2019 Age 79 Visit Number [id number] Gender Female Accession Number [id number] Date of 1940 Referring SHALONDA BENNETT Room Number 0636 Physician [employer] Pramod Pizarro Interpreting Tonya Burleson RVT Physician ProcedureType of Stud y: Cerebral: Carotid, CAROTID DOPPLER, BILATERAL. Indications for Study:Carotid stenosis .Patient Status:Routine.Study Location:Portable.Technical Quality:Adequate visualization. - Results were reported to:SARAI DOHERTY@1200.Risk FactorsHistory of Disease+---------+----+ +!Diagnosis!Date!Comments ! +---------+----+ +!Oth er ! !Carotid Stenosis, Stroke !+---------+----+ +ImpressionsRight Impression1. The internal carotid artery is within normallimits.2. There is non-occluding plaque in the external carotid artery.3. There is non-occluding plaque in the common carotid artery.4. The vertebral artery flow is antegrade and normal.Left Impression1. There is 70- 99% diameter reduction in the internal carotid artery withheterogeneous plaque, a peakvelocity of >522/178 cm/sec and an ICA/CCA peaksystolic velocity ratio of 5.8.2. There is >50%stenosis in the external carotid artery with a velocity of293/70 cm/sec.3. There is non-occluding plaque in the common carotid artery.4. The vertebral artery was not visualized. Conclusions Summary Carotid duplex scanning and color [...] in cm/s ; Diameters are measured in cmCarotid Right Measurements+ +----+----+-----+ + ----+ +!Location !PSV !EDV !Angle!%Stenosis 2D!%Stenosis Doppler!Tortuosity !+------- --------+----+----+-----+ + + +!Prox CCA !123 !29 !60 ! ! ! !+ +----+----+-----+ + -----+ +!Dist CCA !110 !24 !60 ! ! ! !+------ ---------+----+----+-----+ + + +!Prox ICA !123 !25 !60! ! ! !+ +----+----+-----+ + ------+ +!Dist ICA !109 !34 !60 ! ! ! !+----- +----+----+-----+ + + +!Prox ECA !187 !33 !60 ! ! ! !+ +----+----+-----+ + -------+ +!Vertebral !33.8!7.07!60 ! ! ! !+---- +----+----+-----+ + + +!Prox Subclavian!135 ! !60 ! ! ! !+ +----+----+-----+ + + + - Additional Measurements:ICAPSV/CCAPSV 1.12.ICAEDV/CCAEDV 1.17.Carotid Left M easurements+ +---+----+-----+ + +----- ------+!Location !PSV!EDV !Angle!%Stenosis 2D!%Stenosis Doppler !Tortuosity !+ +---+----+-----+------- -----+ + +!Prox CCA !88 !9 !60 ! ! ! !+ +---+----+-----+ + + +!Di st CCA !90 !12 !60 ! ! ! !+ +---+----+-----+------ ------+ + +!Prox ICA !522!178 !60 ! !! !+ +---+----+-----+ + + +!Di st ICA !134!28 !60 ! ! ! !+ +---+----+-----+----- -------+ + +!Prox ECA !293!70 !60 ! ! ! !+ +---+----+-----+ + + +!Pr ox Subclavian!164!30.1!60 ! ! ! !+ +---+----+-----+ + + + - Additional Measurements:ICAPSV/CCAPSV 5.8.ICAEDV/CCAEDV 19.78.[facility] [id number] 12:40:00 Test Item Value Reference Range Interpretation Comments POC-GLUCOSE METER 130 mg/dL 70-110 H : TESTED A T [facility] 6720 (GIFTY) (test code = [place], 1538) [address]: Dermatology Specialist/Techni gretel ID = [id number] for MIKE FLORES RADHA Prothrombin time/[id number] 11:08:00 Test Item Value Reference Range Interpretation Comments Protime (test code = 13.7 11.9- 14.2 5902-2) seconds INR (test code = 1.1 <=5.9 6301-6) JACI (test code = JACI) Effective 09/07/2018: PT Reference Range ChangeNew: 11.9-14.2 Previous: 11.7-14.7 RECOMMENDED COUMADIN/WARFARIN INR THERAPY RANGESSTANDARD DOSE: 2.0-3.0 Includes: PROPHYLAXIS for venous thrombosis, systemic embolization; TREATMENT for venous thrombosis and/or pulmonary embolus.HIGH RISK: Target INR is 2.5-3.5 for patients wiht mechanical heart valves. Lab Interpretation Normal (test code = 22988-4) [facility] CenterPROTHROMBIN TIME/[id number] 11:08:00 Test Item Value Reference Range Interpretation Comments PROTIME (BEAKER) (test code = 13.7 seconds 11.9-14.2 759) [facility] (test code = 370) 1.1 <=5.9 Effective 09/07/2018: PT Reference Range ChangeNew: 11.9-14.2 Previous: 11.7- 14.7RECOMMENDED COUMADIN/WARFARIN INR THERAPY RANGESSTANDARD DOSE: 2.0-3.0 Includes: PROPHYLAXIS for venous thrombosis, systemic embolization; TREATMENT for venous thrombosis and/or pulmonary embolus.HIGH RISK: Target INR is2.5-3.5 for patients wiht mechanical heart valves.[id number] 09:19:00 Test Item Value Reference Range Interpretation Comments PTT (test code = 64873-8) 37.6 22.5- 36.0 seconds H Lab Interpretation (test code = Abnormal 59262-5) [facility] CenterAPTT2020-02-05 09:19:00 Test Item Value Reference Range Interpretation Comments PARTIAL THROMBOPLASTIN TIME 37.6 seconds 22.5-36.0 H (BEAKER) (test code = 760) POCT-GLUCOSE [id number] 06:49:00 Test Item Value Reference Range Interpretation Comments POC-GLUCOSE METER 110 mg/dL 70-110 : TESTED A T [facility] 6720 (BEAKER) (test code = [place], 1538) [address]: Dermatology Specialist/Techni gretel ID = [id number] for MASON PHELPS BASIC METABOLIC [id number] 05:59:00 Test Item Value Reference Range Interpretation [...] S NOT APPLICABLE FOR DIALYSIS PATIEN TS. Dermatology Specialist ID - TERRI [id number] 05:35:00 Test Item Value Reference Range Interpretation Comments PARTIAL THROMBOPLASTIN TIME 38.3 seconds 22.5-36.0 H (BEAKER) (test code = 760) Prior to initiating heparinPOCT-P2Y12 PLATELET [id number] 05:34:00 Test Item Value Reference Range Interpretation Comments POC-P2Y12 PLATELET AGG (BEAKER) (test 230 PRU code = 2303) RANGE INFORMATION: PRU reference range is 194-418. Post Drug Results: Lower PRU levels are associated with expected antiplatelet effect. Values may be below the stated reference range above. The post-drug PRU values reported in the [employer] P2Y12 package insert are [id number].POCT-ASPIRIN PLATELET AGGREGATION 2019-05-17 05:34:00 Test Item Value Reference Range Interpretation Comments POC-ASPIRIN PLATELET AGG (BEAKER) 564 ARU (test code = 2302) RANGE INFORMATION: 350-549 ARU Therapeutic range for platelet function. 550-700 ARU Non-Therapeutic range for platelet function.[id number] 05:34:00 Test Item Value Reference Range Interpretation [...] WBC 0-0 (BEAKER) (test code = 413) [id number] 02:03:00 Test Item Value Reference Range Interpretation Comments PARTIAL THROMBOPLASTIN TIME 35.8 seconds 22.5-36.0 (BEAKER) (test code = 760) 6 hours after starting heparin infusion and as indicated per sliding scalePOCT- GLUCOSE [id number] 00:00:00 Test Item Value Reference Range Interpretation Comments POC-GLUCOSE METER 109 mg/dL 70-110 : TESTED A T [facility] 6720 ([facility]) (test code = [facility] Mackenzie [facility], 153) [address]: Dermatology Specialist/Techni gretel ID = [id number] for MASON PHELPS POCT-GLUCOSE [id number] 18:48:00 Test Item Value Reference Range Interpretation Comments POC-GLUCOSE METER 148 mg/dL 70-110 H : Notified RN/MD: ([facility]) (test code = TESTED AT [facility] 6720 1538) CARLOS ALBERTO [facility], [address]: Dermatology Specialist/Techni gretel ID = [id number] for STEWART MOORE, ANGIOGRAM, [id number] 16:45:00Reason for exam:->basilar tip aneurysmFINAL REPORT Date [...] strict sterile technique a 4 Tongan femoral sheath was inserted into the right radial artery. Through the sheath a 4 Tongan [employer] catheter was then advanced over the wire [...] MDReport Verified Date/Time: 05/16/2019 16:45:20 Reading Location[facility] Reading Room [place] cerebral 4 vessel [id number] 16:45:00Interface, External Ris In - 05/16/2019 4:47 PM CSTFINAL REPORT Date of service May 16, 2019 [...] they expressed understanding and willingness to proceed withthe procedure. A consent form was signed by the patient. The risks include but not limited to stroke, damage to the blood vessels, aneurysm rupture, hemorrhage, damage to the cranial nerves with loss mo tor, and sensory functions, loss of vision, infection, allergic reaction to the contrast, damage to the kidney with renal failure,need for additional treatment, and . Neuroleptic sedation was provided by anesthesiology. Using a micropuncture set and under fluoroscopic guidance and strict sterile technique a 4 Tongan femoral sheath was inserted into the right radial artery. Through the sheath a 4French Weaver catheter was then advanced over the wire and the following procedure was performed:1. Selective right common carotid arteriogram with biplane imaging over the common carotid bifurcation. 2. Selective right common carotid arteriogram with biplane imaging over the intracranial carotid c irculation.3. Selective left common carotid arteriogram with biplane imaging over the common carotidbifurcation.4. Selective left common carotid arteriogram with biplane and oblique imaging over the intracranial carotid circulation.5. Selective left subclavian arteriogram with biplane imaging over the vertebrobasilar circulation.6. Selective right vertebral arteriogram with biplane and oblique imaging over the vertebrobasilar circulation.7. Selective right vertebral arteriogram with three-dimensional rotational imaging which was reconstructed on a dedicated workstation for better understanding of the anatomy. Findings: The selective right common carotid arteriogram with biplane imaging over the common carotid bifurcation demonstrates normal bifurcation of the common carotid artery with no angiographic evidence of dissection, aneurysm, significant focal stenosis , or other vascular abnormality.The selective right common carotid arteriogram with biplane ,and three-dimensional imaging demonstrates normal antegrade flow with no angiographic evidence of aneurysm, vascular malformation, vasculitis, major branch occlusion, significant focal stenosis, dural arteriovenous fistula, or other vascularabnormality. There is flash filling of the left anterior cerebral artery through a patent anterior co mmunicating artery filling the left KIRSTEN. The left A1 is not visualized. There is no significant pialcollaterals. The venous system is within normal limits. [...] demonstrates normal antegrade flow with a large basilar apex aneurysm. The aneurysm measured 6.8 mm at the neck 7 mm with an 6 mm height. At the end of the procedure, the right femoral sheath was removed. Local hemostasis was achieved utilizing manual compression. The patient tolerated the procedure well without complication. SUMMARY: 1. Critical 99% left ICA stenosis right distal to the origin. 2. 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 Signed: Khai Carrasco MDReport Verified Date/Time: 05/16/2019 16:45:20Reading Location: [facility] Y018 Neuro Angio Reading Room [facility] [id number] 13:41:00 Test Item Value Reference Range Interpretation Comments POC-GLUCOSE METER 120 mg/dL 70-110 H : TESTED A T [facility] 6720 (BEAKER) (test code = HUMBERTO Gurdeep [facility], 1538) [address]: Dermatology Specialist/Techni gretel ID = [id number] for ESVIN LAMBERT [id number] 09:24:00 Test Item Value Reference Range Interpretation Comments PARTIAL THROMBOPLASTIN TIME 36.3 seconds 22.5-36.0 H (BEAKER) (test code = 760) 6 hours after starting heparin infusion and as indicated per sliding scaleCB (HEMOGRAM ONLY)2019-05-16 09:10:00 Test Item Value Reference [...] WBC 0-0 (BEAKER) (test code = 413) [id number] 03:01:00 Test Item Value Reference Range Interpretation [...] heart valves.Prior to initiating heparinPrior to initiating [id number] 03:01:00 Test Item Value Reference Range Interpretation Comments PARTIAL THROMBOPLASTIN TIME 32.2 seconds 22.5-36.0 (BEAKER) (test code = 760) BASIC METABOLIC [id number] 02:58:00 Test Item Value Reference Range Interpretation [...] S NOT APPLICABLE FOR DIALYSIS PATIEN TS. Dermatology Specialist ID - TERRI MPlatelet [id number] 02:45:00 Test Item Value Reference Range Interpretation Comments Platelets (test code = 231 150- 450 K/CU MM 777-3) JACI (test code = JACI) Dermatology Specialist ID - [id number] Lab Interpretation (test Normal code = 39858-4) [facility] Center[facility] [id number] 02:45:00 Test Item Value Reference Range Interpretation Comments PLATELET COUNT (BEAKER) (test 231 K/CU MM 150-450 code = 756) Dermatology Specialist ID - [id number], CEREBRAL PERFUSION [id number] 01:22:00FINAL REPORT CT cerebral perfusion analysis. Comparison: [...] at approximately 1:20 AM 05/16/2018. Signed: Fabiano Montoyaepdarryl Verified Date/Time: 05/16/2019 01:22:48 [facility] brain cerebral perfusion analysis 2019-05-16 01:22:00Interface, External Ris In - 05/16/2019 1:[address] cerebralperfusion analysis[address] Comparison: None. Reason for exam: Neuro [...] There is a large area of matched perfusion defects (inc reased mean transit time, decreased cerebral blood flow and decreased cerebral blood volume) in the left MCA territory consistent with an infarct core. Impression: Large left MCA infarct core. Discussed with covering neurology resident at approximately 1:20 AM 05/16/2018. Signed: Fabiano Montoya MDReport Verified Date/Time: 05/16/2019 01:22:48 [facility] CTANG[facility] [id number] 01:09:00FINAL REPORT EXAM: CT, CT Angio, Brain. [...] at approximately 1:05 AM 05/16/2019. Signed: Fabiano Montoyaort Verified Date/Time: 05/16/2019 01:09:25 [facility], ANGIO 2019-05-16 01:09:00FINAL REPORT EXAM: CT, [...] Fabiano Montoya MDReport Verified Date/Time: 05/16/2019 01:09:25 [facility] [id number] 01:09:00Interface, External Ris In - 05/16/2019 1:12 AM CSTFINAL REPORT EXAM: CT, CTAngio, Brain. CT Carotid Angio CLINICAL HISTORY: Neuro deficit, acute, stroke suspected COMPARISON:None. TECHNIQUE: CT angiogram of the head and neck was performed with intravenous contrast. 2-D and3-D reformatted images were obtained. This exam was performed according to our departmental dose optimization program which includes automated exposure control, adjustment of the mA and/or kV accordingto patient's size and/or use of iterative reconstructive [...] vessel occlusion or flow-limiting stenosis.The dural venous sinusesare patent. 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 CTA neck: The visualized aortic arch and great vessel origins are unremarkable except for calcific atherosclerosis.There are small ulcerations of the distal right common carotid artery.The right internal carotid artery has a retropharyngeal course. There are atheromatous changes of theleft carotid bulb with calcified and noncalcified plaque resulting in mild stenosis. There is near occlusion/ severe stenosis of the proximal left cervical ICA (approximately 79% criteria NASCET criteria) due to calcified and noncalcified mural plaque. The vertebral arteries are well visualized. There is mild stenosis of the bilateral vertebral artery origins due to calcified and noncalcified muralplaque. 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 Mild long segment stenosis of the proximal left intradural vertebral artery. No vessel occlusion or flow-limiting stenosis. CTA neck: Critical stenosis of the proximal left cervical ICA. Discussed with covering neurology resident at approximately 1:05 AM 05/16/2019. Signed: Fabiano Montoya MDReport Verified Date/Time: 05/16/2019 01:09:25 [facility] [id number] 01:09:00Interface, External Ris In - 05/16/2019 1:12 AM CSTFINAL REPORT EXAM: CT, CTAngio, Brain. CT Carotid Angio CLINICAL HISTORY: Neuro deficit, acute, stroke suspected COMPARISON:None. TECHNIQUE: CT angiogram of the head and neck was performed with intravenous contrast. 2-D and3-D reformatted images were obtained. This exam was performed according to our departmental dose opti mization program which includes automated exposure control, adjustment of the mA and/or kV accordingto patient's size and/or use of iterative reconstructive [...] vessel occlusion or flow-limiting stenosis.The dural venous sinusesare patent. 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 CTA neck: The visualized aortic arch and great vessel origins are unremarkable except for calcific atherosclerosis.There are small ulcerations of the distal right common carotid artery.The right internal carotid artery has a retropharyngeal course. There are atheromatous changes of theleft carotid bulb with calcified and noncalcified plaque resulting in mild stenosis. There is near occlusion/ severe stenosis of the proximal left cervical ICA (approximately 79% criteria NASCET criteria) due to calcified and noncalcified mural plaque. The vertebral arteries are well visualized. There is mild stenosis of the bilateral vertebral artery origins due to calcified and noncalcified muralplaque. 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 Mild long segment stenosis of theproximal left intradural vertebral artery. No vessel occlusion or flow-limiting stenosis. CTA neck: C ritical stenosis of the proximal left cervical ICA. Discussed with covering neurology resident at approximately 1:05 AM 05/16/2019. Signed: Fabiano Montoya Verified Date/Time: 05/16/2019 01:09:25 [facility]OKE [id number] 23:34:00FINAL REPORT EXAM: CT head without contrast. [...] is no acute intracranial hemorrhage, extra-axial fluid c ollection, mass effect, herniation, hydrocephalus or large demarcated [...] Signed: Fabiano Montoya Verified Date/Time: 05/15/2019 23:34:22 [facility] brain/stroke test design 2019-05-15 23:34:00Interface, External Ris In - 05/15/2019 11:36 PM CSTFINAL REPORT EXAM: CT head without contrast. CLINICAL [...] and/or use of iterative reconstructive technique. FINDINGS:There is mild generalized parenchymal atrophy.There are mild white matter microvascular ischemic changes. There is intracranial calcific atherosclerosis.Thereis an 8 x 7 mm opacity in the interpeduncular fossa consistent with a basilar tip aneurysm.There is no [...] demarcated acute territorial infarct.8 x 7 mm basilartip aneurysm. Discussed with neurology resident at 11:30 PM 05/15/2019. Signed: Fabiano Montoya MDReportVerified Date/Time: 05/15/2019 23:34:22 [facility]PO[facility] [id number] 20:57:00 Test Item Value Reference Range Interpretation Comments POC-GLUCOSE METER 119 mg/dL 70-110 H : TESTED A T [facility] 6720 (BEAKER) (test code = [place] [place], 1538) [address]: Dermatology Specialist/Techni gretel ID = [id number] for CARLINE HARDING PROTHROMBIN [id number] 19:47:00 Test Item Value Reference Range Interpretation [...] is2.5-3.5 for patients wiht mechanical heart valves.POCT-GLUCOSE [id number] 17:51:00 Test Item Value Reference Range Interpretation Comments POC-GLUCOSE METER 125 mg/dL 70-110 H : TESTED A T [facility] 6720 (BEAKER) (test code = [facility], 1538) [address]: Dermatology Specialist/Techni gretel ID = [id number] for BR OWN, MARIA DEL CARMEN POCT-GLUCOSE [id number] 11:55:00 Test Item Value Reference Range Interpretation Comments POC-GLUCOSE METER 169 mg/dL 70-110 H : TESTED A T [facility] 6720 (BEAKER) (test code = [facility], 1538) [address]: Dermatology Specialist/Techni gretel ID = [id number] for BR OWN, MARIA DEL CARMEN Hemoglobin [id number] 10:46:00 Test Item Value Reference Range Interpretation Comments Hemoglobin A1C (test code = 4548-4) 5.8 % 4.3-6.1 Lab Interpretation (test code = Normal 91852-1) [facility]MO[facility]IN [id number] 10:46:00 Test Item Value Reference Range Interpretation Comments HEMOGLOBIN A1C (BEAKER) (test code = 5.8 % 4.3-6.1 368) POCT-GLUCOSE [id number] 08:50:00 Test Item Value Reference Range Interpretation Comments POC-GLUCOSE METER 134 mg/dL 70-110 H : TESTED A T [facility] 6720 (BEAKER) (test code = [facility], 1538) [address]: Dermatology Specialist/Techni gretel ID = [id number] for BR OWN, MARIA DEL CARMEN Vitamin B12 and [id number] 07:44:00 Test Item Value Reference Range Interpretation Comments Vitamin B12 (test code = 472 pg/mL 102-941 0693-9) Folate (test code = 19.4 ng/mL >=7.0 2284-8) JACI (test code = JACI) Dermatology Specialist ID - MALOU F Lab Interpretation (test Normal code = 71535-2) [facility] Center[facility]ITAMIN B12 AND [id number] 07:44:00 Test Item Value Reference Range Interpretation Comments VITAMIN B12 (BEAKER) (test code = 472 pg/mL 213-816 774) FOLATE (BEAKER) (test code = 362) 19.4 ng/mL >=7.0 Dermatology Specialist ID - MALOU FPOCT-GLUCOSE [id number] 06:57:00 Test Item Value Reference Range Interpretation Comments POC-GLUCOSE METER 114 mg/dL 70-110 H : TESTED A T [facility] 6720 (BEAKER) (test code = [facility] [place], 1538) [address]: Dermatology Specialist/Techni gretel ID = [id number] for DE NNIS, MALIHA Lipid [id number] 06:53:00 Test Item Value Reference Range Interpretation Comments Triglycerides (test 341 mg/dL code = 2571-8) Cholesterol (test code 199 mg/dL = 2093-3) HDL (test code = 41 mg/dL 5-9) LDL Calculated (test 90 mg/dL code = 48273-3) JACI (test code = JACI) Triglyceride Reference Range: Low Risk <150 Borderline 150-199 High Risk 200-499 Very High Risk >=500 Cholesterol Reference Range: Low Risk <200 Borderline 200-239 High Risk >240 HDL Cholesterol Reference Range: Low Risk >=60 High Risk <40 LDL Cholesterol Reference Range: Optimal <100 Near Optimal 100-129 Borderline 130-159 High 160-189 Very High >=190 Dermatology Specialist ID - MARITZA L [facility] CenterLIPID [id number] 06:53:00 Test Item Value Reference Range Interpretation [...] Borderline 130-159 High 160-189 Very High >=190 Dermatology Specialist ID - PIAYALBASIC METABOLIC [id number] 06:53:00 Test Item Value Reference Range Interpretation [...] S NOT APPLICABLE FOR DIALYSIS PATIEN TS. Dermatology Specialist ID - PIAYA LCBC (HEMOGRAM ONLY)2019-05-15 06:29:00 [...] (test code = 413) MR, BRAIN, WITHOUT [id number] 04:06:00FINAL REPORT EXAM: MR, BRAIN, WITHOUT CONTRAST [...] aneurysm similar to prior MRA. Signed: Denise Roasrio MDReport Verified Date/Time: 05/15/2019 04:06:56 MR brain without IV [id number] 04:06:00Interface, External Ris In - 05/15/2019 4:10 AM CSTFINAL REPORT EXAM: MR, BRAIN, WITHOUT CONTRAST CLINICAL [...] are nonspecific but compatible with mild chronic microvascularischemic changes. Extra-axial Collection: None Ventricular System: No hydrocephalus. Major Intracranial Flow Voids: Preserved. A basilar tip aneurysm is present with diameter of 0.9 cm correlating toprior MRA. Osseous Structures: Expected marrow signal. Included [...] Denise Rosario MDReport Verified Date/Time: 05/15/2019 04:06:56 [facility] 2019-05-14 21:18:00 Test Item Value Reference Range Interpretation Comments POC-GLUCOSE METER 95 mg/dL 70-110 : TESTED A T [facility] 6720 (BEAKER) (test code = HUMBERTO Mackenzie [facility], 1538) [address]: Dermatology Specialist/Techni gretel ID = [id number] for MALIHA COWAN BASIC METABOLIC [id number] 14:37:00 Test Item Value Reference Range Interpretation [...] APPLICABLE FOR DIALYSIS PATIEN TS. BASIC METABOLIC [id number] 13:34:00 Test Item Value Reference Range Interpretation [...] S NOT APPLICABLE FOR DIALYSIS PATIEN TS. [id number] 12:49:00 Test Item Value Reference Range Interpretation [...] mechanical heart valves.CBC W/PLT COUNT & AUTO [id number] 12:48:00 Test Item Value Reference Range Interpretation [...]
--- OUTSIDE RECORDS SUMMARY | 2020-02-01 08:10 | XMS REPORT | Summary of Care ---
:1940 Author Organization [facility] Address [address] [place] [address] Care Team Providers Name Role Phone Selene Primary Care Provider Reason for Visit Reason Comments Orders Encounter Details Date Type Department Care Team Description 11/15/2019 Telephone [facility] Neurosurgery, [place], Patricia C, SOLDER DEPOSIT OPERATOR [place] [address] Floor [phone] [place] [address] [phone] Allergies Active Allergy Reactions Severity Noted Date Comments Adhesive Tape-Silicones Other - See comments Medium 6 Tears skin Codeine Nausea and/or Vomiting, Medium 03/31/2016 Palpitations Propoxyphene N-Acetaminophen Nausea and/or Vomiting, Medium 1 06/01/2015 Palpitations Cyclobenzaprine Other - See comments 04/01/2016 trem ors Hydrocodone Nausea and/or Vomiting, Medium 03/31/2016 Palpitations Morphine Nausea and/or Vomiting Medium 03/31/2016 Acetaminophen-Codeine Nausea and/or Vomiting, Medium 03/31/20 16 Palpitations documented as of this encounter (statuses as of 11/15/2019) Medications Medication Sig Dispensed Refills Start Date End Date Status Nebivolol (BYSTOLIC) Take 1 tablet by 0 Active 20 mg tablet mouth daily. levothyroxine Take 50 mcg by 0 A ctive (SYNTHROID) 50 mcg mouth daily. tablet rivaroxaban (XARELTO) Take 20 mg by 0 Active 20 mg tablet mouth daily. hydralAZINE Take 100 mg by 0 Act sushil (APRESOLINE) 100 mg mouth 2 (two) tablet times daily. allopurinol 300 mg Take 300 mg by 0 Active tablet mouth daily. cloniDINE 0.2 mg Take 0.2 mg by 0 Active tablet mouth 3 (three) times daily. colchicine 0.6 mg Take 0.6 mg by 0 Active tablet mouth as needed. doxepin 25 mg capsule Take 25 mg by 0 Active mouth at bedtime. gabapentin 300 mg Take 300 mg by 0 Active capsule mouth 3 (three) times daily. albuterol 90 Inhale 2 Puffs 0 Ac tive mcg/actuation inhaler every 6 (six) hours as needed for Wheezing or Shortness of Breath. torsemide 10 mg tablet Take 10 mg by 0 Active mouth daily. documented as of this encounter (statuses as of 11/15/2019) Active Problems Problem Noted Date Post-op pain 04/01/2016 documented as of this encounter (statuses as of 11/15/2019) Social History Tobacco Use Types Packs/Day Years Used Date Former Smoker Smokeless Tobacco: Never Used Comments: Quit 4 years ago Alcohol Use Drinks/Week oz/Week Comments No 0 Standard drinks or equivalent 0.0 Sex Assigned at Date Recorded Not on file COVID-19 Exposure Response Date Recorded In the last month, have you been in contact with No / Unsure 10/30/2019 9:40 AM CDT someone who was confirmed or suspected to have Coronavirus / COVID-19? documented as of this encounter Last Filed Vital Signs Not on filedocumented in this encounter Miscellaneous Notes Telephone Encounter - Patricia Rose FNP - 11/15/2019 10:11 AM CDTPre-op labs placed. Livia Mora NP, left message with instructions to patient's VM. 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 11/15/2019, Expires: Stenosis of carotid artery, 11/14/2020 unspecified laterality VERIFYNOW ASPIRIN TEST LAB Routine Congenital anomaly of Expected: cerebrovascular system 11/15/2019, Expires: Stenosis of carotid artery, 11/14/2020 unspecified laterality CBC WITH DIFF LAB Routine Congenital anomaly of Expec shira: cerebrovascular system 11/15/2019, Expires: Stenosis of carotid artery, 11/14/2020 unspecified laterality BASIC METABOLIC PANEL LAB Routine Congenital anomaly of Expected: (NA, K, CL, CO2, cerebrovascular system 11/15/2019, Expires: GLUCOSE, BUN, Stenosis of carotid artery, 11/14/2020 CREATININE, CA) unspecified laterality PROTHROMBIN TIME / INR LAB Routine Stenosis of caroti d artery, Expected: unspecified late rality 11/15/2019, Expires: Congenital anomaly of 2020 cerebrovascular system aPTT LAB Routine Congenital anomaly of Expect ed: cerebrovascular system 11/15/2019, Expires: Stenosis of carotid artery, 11/14/2020 unspecified laterality Type and Screen - LAB Routine 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 11/15/2019, Expires: Stenosis of carotid artery, 11/14/2020 unspecified laterality Health Maintenance Due Date Last Done Comments Depression Screening 1954 DTaP,Tdap,and Td Vaccines (1 - Tdap) 1961 Zoster Recombinant Vaccine (SHINGRIX) (1 of 2) 02/08/1992 LUNG CANCER SCREEN: Recommended for age 55-80 with 30 + 02/07/19 97 pack year history Medicare Wellness Visit 2007 Osteoporosis Screening 2007 PNEUMOCOCCAL VACCINES 65+ (1 of 1 - PPSV23) 2007 INFLUENZA VACCINE (#1) 2019 documented as of this encounter Implants Implanted Type Area Masonry Teacher Device Shelf Model / Serial Identifier Expiration / Lot Date [employer] W/ Gent CEMENT Left: Vinny [id number] / Implanted: Qty: 1 on 04/01/2016 by EggFlex rich MD at [facility] Knee 8 [id number] / [id number] [employer] C[employer] W/ Gent CEMENT Left: Vinny [id number] / Implanted: Qty: 1 on 04/01/2016 by Flex Penaloza MD at [facility] Knee 8 [id number] / [id number] Ps Open Box Femoral-Left Femur Left: Biomet 02/12 [id number] / Implanted: Qty: 1 on 04/01/2016 by Flex Penaloza MD at [facility] Knee J [id number] / [id number] Fixed Cruciate Tibial Plate KNEE Left: Biomet [id number] / Implanted: Qty: 1 on 04/01/2016 by Flex Penaloza MD at [facility] Knee J [id number] / [id number] Ps Tibial Bearing KNEE Left: Biomet 06/25/2020 1 [id number] / Implanted: Qty: 1 on 04/01/2016 by Flex Penaloza MD at [facility] Knee 3 [id number] / [id number] Lens, Raf #Sn60wf - [id number] LENS Left: Raf 06/09/2022 [id number] / Implanted: Qty: 1 on 12/09/2017 by Benjamin Rodriguez MD at [facility] Eye 9 [id number] / [id number] Lens, Raf #Sn60wf - [id number] LENS Right: Raf 08/09/2022 [id number] / Implanted: Qty: 1 on 12/23/2017 by Benjamin Rodriguez MD at [facility] Eye 2 [id number] / [id number] Adc Patella 28 X 8 Mm - [id number] Left: Biomet 11/01/2020 [id number] / Implanted: Qty: 1 on 04/01/2016 by Flex Penaloza MD at [facility] Knee 9 [id number] / [id number] documented as of this encounter Results Not on filedocumented in this encounter Visit Diagnoses Diagnosis 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
--- OUTSIDE RECORDS SUMMARY | 2020-02-01 08:10 | XMS REPORT | Summary of Care ---
:1940 Author Organization [facility] Address [address] [place] [address] Care Team Providers Name Role Phone Selene Primary Care Provider Reason for Referral Radiology Services (MANPREET) Status Reason Specialty Diagnoses / Referred By Referred To Procedures Contact Contact New Request Diagnostic Diagnoses Congenital anomaly of cerebrovascular system [place], Radiology Procedures IR ANGIOGRAM CEREBRAL Patricia Heck, [address] [address] Reason for Visit Reason Comments Orders Encounter Details Date Type Department Care Team Description 11/06/2019 Case Management [facility] Neurosurgery, Ant Rose, Orders [facility] SVP BUSINESS DEVELOPMENT[address] [address] [place] [address] [phone] Allergies Active Allergy Reactions Severity Noted Date [...] as of this encounter (statuses as of 11/06/2019) Medications Medication Sig Dispensed Refills Start Date [...] as of this encounter (statuses as of 11/06/2019) Active Problems Problem Noted Date Post-op pain 04/01/2016 documented as of this encounter (statuses as of 11/06/2019) Social History Tobacco Use Types Packs/Day Years [...] Travel End No recent travel history available. COVID-19 Exposure Response Date Recorded In the last month, have you been in contact with No / Unsure 10/30/2019 9:40 AM CDT someone who was confirmed or suspected to have Coronavirus / COVID-19? documented as of this encounter Last Filed Vital Signs Not on filedocumented in this encounter Progress Notes Patricia Rose FNP - 11/06/2019 1:[address] Oconnor, order placed for aneurysm embolization at [facility] on November 20. documented in this encounter Plan of Treatment Name Type Priority Associated Diagnoses Order S chedule IR ANGIOGRAM CEREBRAL IMAGING MANPREET Congenital anomaly of Expected: cerebrovascular system 11/05, Expires: 11/05/2020 Health Maintenance Due Date Last Done Comments DTaP,Tdap,and Td Vaccines (1 - Tdap) 1953 Depression Screening 1954 Zoster Recombinant Vaccine (SHINGRIX) (1 of 2) 02/08/1992 LUNG CANCER SCREEN: Recommended for age 55-80 with 30 + 02/07/19 97 pack year history Medicare Wellness Visit 2007 Osteoporosis Screening 2007 PNEUMOCOCCAL VACCINES 65+ (1 of 2 - PCV13) 2007 INFLUENZA VACCINE (#1) 2019 documented as of this encounter Implants Implanted Type Area Computer Applications Developer Device Shelf Model / Serial Identifier Expiration / Lot Date [employer] C[employer] W/ Gent CEMENT Left: Vinny [id number] / Implanted: Qty: 1 on 04/01/2016 by Flex Penaloza MD at [facility] Knee 8 [id number] / [id number] [employer] W/ Gent CEMENT Left: Vinny -1113-140-01 / Implanted: Qty: 1 on 04/01/2016 by Flex Penaloza MD at [facility] Knee 8 [id number] / [id number] Ps Open Box Femoral-Left Femur Left: Biomet 02/12 [id number] / Implanted: Qty: 1 on 04/01/2016 by Flex Penaloza MD at [facility] Knee J [id number] / [id number] Fixed Cruciate Tibial Plate KNEE Left: Biomet [id number] / Implanted: Qty: 1 on 04/01/2016 by Flex Penaloza MD at [facility] Knee J [id number] / [id number] Ps Tibial Bearing KNEE Left: Biomet 06/25/2020 1 [id number] / Implanted: Qty: 1 on 04/01/2016 by Flex Penaloza MD at [facility] Knee 3 [id number] / [id number] Lens, Raf #Sn60wf - [id number] LENS Left: Raf 06/09/2022 SN60WF / Implanted: Qty: 1 on 12/09/2017 by Benjamin Rodriguez MD at [facility] Eye 6 [id number] / [id number] Lens, Raf #Sn60wf - [id number] LENS Right: Raf 08/09/2022 SN60WF / Implanted: Qty: 1 on 12/23/2017 by Benjamin Rodriguez MD at [facility] Eye 4 [id number] / [id number] Adc Patella 28 X 8 Mm - [id number] Left: Biomet 11/01/2020 [id number] / Implanted: Qty: 1 on 04/01/2016 by Flex Penaloza MD at [facility] Knee 9 [id number] / [id number] documented as of this encounter Results Not on filedocumented in this encounter Visit Diagnoses Diagnosis 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
--- OUTSIDE RECORDS SUMMARY | 2020-02-01 08:10 | XMS REPORT | Summary of Care ---
:1940 Author Organization [facility] Address [address] [place] [address] Care Team Providers Name Role Phone Selene Primary Care Provider Reason for Visit Reason Comments Pre-op Clearance Encounter Details Date Type Department Care Team Description 11/16/2019 Laboratory Only [facility] Clinical Jean Rose, FRONT DESK AGENT [address] [place] [address] Unspecified general Laboratory, Clear Only, Clc Bls Test medical examination [facility] (Primary Dx) [address] [phone] Allergies Active Allergy Reactions Severity Noted Date [...] as of this encounter (statuses as of 11/16/2019) Medications Medication Sig Dispensed Refills Start Date [...] tablet mouth daily. cloniDINE 0.2 mg Take 0.3 mg by 0 Active tablet mouth 3 [...] as of this encounter (statuses as of 11/16/2019) Active Problems Problem Noted Date Post-op pain 04/01/2016 documented as of this encounter (statuses as of 11/16/2019) Social History Tobacco Use Types Packs/Day Years [...] Signs Not on filedocumented in this encounter Nursing Notes Nidhi Tolliver - 11/16/2019 10:15 AM RENETTATBroberto Lancaster is a 79 year old female here for COVID Screening with a Nasopharyngeal Swab. All droplet and contact precautions taken with appropriate PPE worn while interacting with patient. ? Goggles ? N95 Mask ? Gloves ? Gown Date of procedure: 11/21/2019 Patient educated on plan of care for visit, swabbing technique, risks and benefits of test and length of time to receive results. Verbal consent obtained to perform test. CDC Fact Sheet for Patients nCoV Diagnostic Panel dated 06/25/2019 and Fact Sheet What to Do if Sick with COVID 19 06/05/19 provided. Patient swabbed per appropriate nasopharyngeal technique, and patient tolerated well. Patient was discharged from the testing clinic in stable condition. Nidhi Tolliver 11/16/2019 9:32 AM documented in this encounter Plan of Treatment Date Type Specialty Care Team Description 11/09/2019 Anesthesia Event Radiology Diogenes Garciaoy, VICE CHAIRMAN [address] [place], [place] [address] 11/16/2019 Oil Transport Driver Visit Phlebotomy Val Rose, FRONT DESK AGENT [address] [place], [place] [id number] Congenital anomaly of cerebrovascular sy stem; Draw, Clc-Bls Lab Stenosis of carotid artery, unspecified laterality 11/21/2019 Hospital Encounter Radiology Patricia Rose, FRONT DESK AGENT [address] [place] [address] Name Type Priority Associated Diagnoses Order S chedule COVID-19 (PCR MOLECULAR LAB Routine Unspecified gener al Expected: 11/16/2019, TESTING) medical examination Expires: 11/15/2020 Health Maintenance Due Date Last Done Comments [...] of this encounter Implants Implanted Type Area Air Traffic Control Operator Device Shelf Model / Serial Identifier Expiration / Lot Date [employer] Cement W/ Gent CEMENT Left: Vinny [id number] / Implanted: Qty: 1 on 04/01/2016 by Flex Penaloza MD at [facility] Knee 8 [id number] / [id number] [employer] C[employer] W/ Gent CEMENT Left: Vinny [id number] / Implanted: Qty: 1 on 04/01/2016 by Flex Penaloza MD at [facility] Knee 8 [id number] / [id number] Ps Open Box Femoral-Left Femur Left: Biomet 02/12 029060 / Implanted: Qty: 1 on 04/01/2016 by Flex Penaloza MD at [facility] Knee J [id number] / [id number] Fixed Cruciate Tibial Plate KNEE Left: Biomet [id number] / Implanted: Qty: 1 on 04/01/2016 by Flex Penaloza MD at [facility] Knee J [id number] / [id number] Ps Tibial Bearing KNEE Left: Biomet 06/25/2020 1 82073 / Implanted: Qty: 1 on 04/01/2016 by Flex Penaloza MD at [facility] Knee 3 [id number] / [id number] Lens, Raf #Sn60wf - [id number] LENS Left: Raf 06/09/2022 SN60WF / Implanted: Qty: 1 on 12/09/2017 by Benjamin Rodriguez MD at [facility] Eye 4 [id number] / [id number] Lens, Raf #Sn60wf - [id number] LENS Right: Raf 08/09/2022 SN60WF / Implanted: Qty: 1 on 12/23/2017 by Benjamin Rodriguez MD at [facility] Eye 0 [id number] / [id number] Adc Patella 28 X 8 Mm - [id number] Left: Biomet 11/01/2020 [id number] / Implanted: Qty: 1 on 04/01/2016 by Flex Penaloza MD at [facility] Knee 9 [id number] / [id number] documented as of this encounter Results Not on filedocumented in this encounter Visit Diagnoses Diagnosis Unspecified general medical examination - Primary Congenital anomaly of cerebrovascular sy stem Stenosis of carotid artery, unspecified laterality documented in this encounter Additional Health Concerns Infection Onset Date Last Indicated Resolved Time COVID-19 Rule Out 11/16/2019 11/16/2019 documented as of this encounter Insurance Payer Benefit Plan / Subscriber ID Effective Dates Phone Addre ss Type Group HUMANA - HUMANA [id number] 2017-[facility] Adv MANAGED MEDICARE ERS t PPO MEDICARE documented as of this encounter
--- OUTSIDE RECORDS SUMMARY | 2020-02-01 08:11 | XMS REPORT | Summary of Care ---
:1940 Author Organization [facility] Address [address] [place] [address] Care Team Providers Name Role Phone Selene Primary Care Provider Reason for Visit Reason Comments LAB WORK Encounter Details Date Type Department Care Team Description 11/16/2019 Pharmacognosy Teacher Visit [facility] Val Rose, CORRESPONDENCE DICTATOR [address] [place] [address] Congenital anomaly of cerebrovascular sy stem; Clinical Draw, Clc-Bls Lab Stenosis of carotid artery, unspecified laterality Laboratory, [address] [address] Allergies Active Allergy Reactions Severity [...] on filedocumented in this encounter Nursing Notes Joe Gutiérrez P - 11/16/2019 11:00 AM CDT Venipuncture collection performed by clean technique on the left anticubitus. Total of 1 attempts were made. Slight pressure and a bandage/dressing were applied to the site(s). The patient experienced no complications. The following specimens were processed according to instructions and sent to [facility] laboratories per lab order on 11/16/19: LT BLUE 1 SST 1 RED LAV 1 PPT DK GREEN (LiHep) DK GREEN (SodH) PRAJAPATI DK BLUE (K2) DK BLUE (S) ACD Blood Culture NIPT/NTD Aspirin and PRUtest tubes 4x documented in this encounter Plan of Treatment Date Type Specialty Care Team Description 11/09/2019 Anesthesia Event Radiology Costa Garcia, APPRENTICE ELECTRICIAN [address] [place], [place] [address] [phone] 11/16/2019 Laboratory Only Phlebotomy Patricia Rose, CORRESPONDENCE DICTATOR [address] [place], [place] [address] Unspecified general Only, Clc Bls Test medical examination (Primary Dx) 11/21/2019 Hospital Encounter Radiology Patricia Rose, CORRESPONDENCE DICTATOR [address] [place], [place] [address] Name Type Priority Associated Diagnoses Date/Ti me VERIFYNOW PRUTEST LAB Routine Congenital anomaly of 0 11/16/2019 9:41 AM (P2Y12) cerebrovascular system CDT Stenosis of carotid artery, unspecified laterality VERIFYNOW ASPIRIN TEST LAB Routine Congenital anomaly of 11/16/2019 9:41 AM cerebrovascular system CDT Stenosis of carotid artery, unspecified laterality CBC WITH DIFF LAB Routine Congenital anomaly of 11/15 9:41 AM cerebrovascular system CDT Stenosis of carotid artery, unspecified laterality BASIC METABOLIC PANEL LAB Routine Congenital anomaly of 11/16/2019 9:41 AM (NA, K, CL, CO2, cerebrovascular system CDT GLUCOSE, BUN, Stenosis of carotid artery, CREATININE, CA) unspecified laterality PROTHROMBIN TIME / INR LAB Routine Stenosis of caroti d artery, 11/16/2019 9:41 AM unspecified late rality CDT Congenital anomaly of cerebrovascular system aPTT LAB Routine Congenital anomaly of 2019 9:41 AM cerebrovascular system CDT Stenosis of carotid artery, unspecified laterality Health Maintenance Due Date Last [...] of this encounter Implants Implanted Type Area Practice Advisor Device Shelf Model / Serial Identifier Expiration / Lot Date [employer] C[employer] W/ Gent CEMENT Left: Vinny -1113-140-01 / Implanted: Qty: 1 on 04/01/2016 by Flex Penaloza MD at [facility] Knee 8 [id number] / [id number] [employer] Cement W/ Gent CEMENT Left: Vinny [id number] / Implanted: Qty: 1 on 04/01/2016 by Flex Penaloza MD at [facility] Knee 8 [id number] / [id number] Ps Open Box Femoral-Left Femur Left: Biomet 02/12 [id number] / Implanted: Qty: 1 on 04/01/2016 by Flex Penaloza MD at [facility] Knee J [id number] / [id number] Fixed Cruciate Tibial Plate KNEE Left: Biomet [id number] / Implanted: Qty: 1 on 04/01/2016 by Flex Penaloza MD at [facility] Knee J [id number] / [id number] Ps Tibial Bearing KNEE Left: Biomet 06/25/2020 1 [id number] / Implanted: Qty: 1 on 04/01/2016 by Flex Penaloza MD at [facility] Knee 3 [id number] / [id number] Lens, Raf #Sn60wf - [id number] LENS Left: Raf 06/09/2022 SN60WF / Implanted: Qty: 1 on 12/09/2017 by Benjamin Rodriguez MD at [facility] Eye 3 [id number] / [id number] Lens, Raf #Sn60wf - [id number] LENS Right: Raf 08/09/2022 SN60WF / Implanted: Qty: 1 on 12/23/2017 by Benjamin Rodriguez MD at [facility] Eye 6 [id number] / [id number] Adc Patella 28 X 8 Mm - [id number] Left: Biomet 11/01/2020 021629 / Implanted: Qty: 1 on 04/01/2016 by Flex Penaloza MD at [facility] Knee 9 [id number] / [id number] documented as of this encounter Results Not [...] Addre ss Type Group HUMANA - HUMANA [id number] [facility] ERS t PPO MEDICARE documented as of this encounter
--- OUTSIDE RECORDS SUMMARY | 2020-02-01 08:11 | XMS REPORT | Summary of Care ---
:1940 Author Organization [facility] Address [address] [place] [address] Care Team Providers Name Role Phone Selene Primary Care Provider Reason for Visit Reason Comments Pre-op Clearance Encounter Details Date Type Department Care Team Description 11/16/2019 Laboratory Only [facility] Clinical Jean Rose, BUSINESS CONTROLLER [address] [place] [address] Unspecified general Laboratory, Clear Only, Clc Bls Test medical examination [facility] (Primary Dx) [address] [phone] Allergies Active Allergy Reactions Severity [...] Description 11/09/2019 Anesthesia Event Radiology Diogenes Garciaoy, SOLUTION ADVISOR [address] [place] [address] 11/16/2019 Director Long Term Care Visit Phlebotomy Val Rose, BUSINESS CONTROLLER [address] [place], [place] [phone] Congenital anomaly of cerebrovascular sy stem; Draw, Clc-Bls Lab Stenosis of carotid artery, unspecified laterality 11/21/2019 Hospital Encounter Radiology Patricia Rose, BUSINESS CONTROLLER [address] [place] [address] Name Type Priority Associated Diagnoses [...] of this encounter Implants Implanted Type Area Wall Taper Device Shelf Model / Serial Identifier Expiration / Lot Date [employer] C[employer] W/ Gent CEMENT Left: Vinny [id number] / Implanted: Qty: 1 on 04/01/2016 by Flex Penaloza MD at [facility] Knee 8 [id number] / [id number] [employer] Cement W/ Gent CEMENT Left: Vinny [id number] / Implanted: Qty: 1 on 04/01/2016 by Flex Penaloza MD at [facility] Knee 8 [id number] / [id number] Ps Open Box Femoral-Left Femur Left: Biomet 02/12 222524 / Implanted: Qty: 1 on 04/01/2016 by Flex Penaloza MD at [facility] Knee J [id number] / [id number] Fixed Cruciate Tibial Plate KNEE Left: Biomet [id number] / Implanted: Qty: 1 on 04/01/2016 by Flex Penaloza MD at [facility] Knee J [id number] / [id number] Ps Tibial Bearing KNEE Left: Biomet 06/25/2020 1 27692 / Implanted: Qty: 1 on 04/01/2016 by Flex Penaloza MD at [facility] Knee 3 [id number] / [id number] Lens, Raf #Sn60wf - [id number] LENS Left: Raf 06/09/2022 SN60WF / Implanted: Qty: 1 on 12/09/2017 by Benjamin Rodriguez MD at [facility] Eye 3 [id number] / [id number] Lens, Raf #Sn60wf - [id number] LENS Right: Raf 08/09/2022 SN60WF / Implanted: Qty: 1 on 12/23/2017 by Benjamin Rodriguez MD at [facility] Eye 4 [id number] / [id number] Adc Patella 28 X 8 Mm - [id number] Left: Biomet 11/01/2020 [id number] / Implanted: Qty: 1 on 04/01/2016 by Flex Penaloza MD at [facility] Knee 9 [id number] / [id number] documented as of this encounter Results Not [...] Addre ss Type Group HUMANA - HUMANA [id number] 2017-[facility] Adv MANAGED MEDICARE ERS t PPO MEDICARE documented as of this encounter
--- OUTSIDE RECORDS SUMMARY | 2020-02-01 08:13 | XMS REPORT | Summary of Care ---
:1940 Author Organization [facility] Address [address] [place] [id number] Care Team Providers Name Role Phone Selene Primary Care Provider Reason for Referral Radiology Services (MANPREET) Status Reason Specialty Diagnoses / Procedures Referred By Gurdeep bazzi To Contact Contact Closed Diagnostic Diagnoses Congenital anomaly of cerebrovascular system [place] Radiology Procedures IR EMBOLIZATION CENTRAL NERVOUS SYSTEM (SECURITY SUPPORT ANALYST) PERMANENT IR ANGIOGRAM CEREBRAL Patricia Heck, [employer] [address] [place] [address] Reason for Visit Auth/Cert Status Reason Specialty Diagnoses / Procedures Referred By Gurdeep bazzi To Contact Contact Surgery Diagnoses Congenital anomaly of cerebrovascular system Clc 4c Procedures IR EMBOLIZATION CENTRAL NERVOUS SYSTEM (SECURITY SUPPORT ANALYST) PERMANENT [address] [place] [address] Encounter Details Date Type Department Care Team Description 11/21/2019 - [facility] Chyna Álvarez MD [address] [place] [address] S/P aneurysm repair 11/23/2019 Encounter Medicine/Surgery Benjamin Nina MD [address] [place] [phone] CLC 6A Kathleen Campbell RN [address] [place] [id number] [address] [place] [address] [place] [address] Allergies Active Allergy Reactions Severity Noted Date [...] as of this encounter (statuses as of 11/23/2019) Medications Medication Sig Dispensed Refills Start Date End Date Status aspirin 81 mg Take 1 tablet 60 tablet 0 11/23/2019 A ctive chewable by mouth daily. tabletIndications: S/P aneurysm repair Nebivolol Take 1 tablet 0 Discon tinued (BYSTOLIC) 20 mg by mouth daily. 0 tablet levothyroxine Take 50 mcg by 0 D iscontinued (SYNTHROID) 50 mcg mouth daily. 0 tablet rivaroxaban Take 20 mg by 0 Disc ontinued (XARELTO) 20 mg mouth daily. 0 tablet hydralAZINE Take 100 mg by 0 Dis continued (APRESOLINE) 100 mg mouth 2 (two) 0 tablet times daily. allopurinol 300 mg Take 300 mg by 0 Discontinued tablet mouth daily. 0 cloniDINE 0.2 mg Take 0.3 mg by 0 11/23/19 2 Discontinued tablet mouth 3 (three) 0 times daily. colchicine 0.6 mg Take 0.6 mg by 0 02 Discontinued tablet mouth as 0 needed. doxepin 25 mg Take 25 mg by 0 Di scontinued capsule mouth at 0 bedtime. gabapentin 300 mg Take 300 mg by 0 02 Discontinued capsule mouth 3 (three) 0 times daily. albuterol 90 Inhale 2 Puffs 0 Di scontinued mcg/actuation every 6 (six) 0 inhaler hours as needed for Wheezing or Shortness of Breath. torsemide 10 mg Take 10 mg by 0 Discontinued tablet mouth daily. 0 ticagrelor Take 90 mg by 0 Disco ntinued (BRILINTA) 90 mg mouth 2 (two) 0 tablet times daily. documented as of this encounter (statuses as of 11/23/2019) Active Problems Problem Noted Date S/P aneurysm repair 11/21/2019 Post-op pain 04/01/2016 documented as of this encounter (statuses as of 11/23/2019) Immunizations Name Administration Dates Next Due Pneumococcal Polysaccharide, PPSV23 (PNEUMOVAX) 11/23/2019 documented as of this encounter Social History Tobacco Use Types Packs/Day Years [...] of this encounter Last Filed Vital Signs Vital Sign Reading Time Taken Comments Blood Pressure 132/47 11/23/2019 11:15 AM CDT Pulse 69 11/23/2019 11:15 AM CDT Temperature 36.8 C (98.3 F) 11/23/2019 11:15 AM CDT Respiratory Rate 17 11/23/2019 11:15 AM CDT Oxygen Saturation 97% 11/23/2019 11:15 AM CDT Inhaled Oxygen Concentration - - Weight 93.9 kg (207 lb) 11/23/2019 6:19 AM CDT Height 167.6 cm (5' 6") 11/21/2019 10:20 AM CDT Body Mass Index 33.41 11/21/2019 10:20 AM CDT documented in this encounter Discharge Summaries Ortega Álvarez MD - 11/22/2019 11:49 AM CDT CLS Team Discharge Summary Date of Service: 11/22/2019 ADMIT DATE: 11/21/2019 DISCHARGE DATE: 11/22/2019 ATTENDING MD: Ortega Álvarez MD PCP: [facility] REASON FOR ADMISSION Brain aneurysm s/p 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 * Orders Placed This Encounter CONSULT ADULT PHYSICAL THERAPY No orders of the defined types were placed in this encounter. Temp: [36.3 C (97.4 F)-37 C (98.6 F)] Heart Rate (monitor): [43-82] Pulse: [40-80] Resp: [11-17] BP: (109-168)/(31-78) Arterial Line BP: (99-205)/(35-149) MAP (mmHg): [63-109] MAP: [56 mmHg-151 mmHg] Physical Exam SIGNIFICANT LAB/X-RAYS: Recent Results (from the past 48 hour(s)) Type and Screen - ONCE Routine Collection Time: 11/21/19 8:43 AM Result Value Ref Range ABO & RH A Positive IAT Negative BASIC METABOLIC PANEL (NA, K, CL, CO2, GLUCOSE, BUN, CREATININE, CA) Collection Time: 11/21/19 9:14 AM Result Value Ref Range NA 140 135 - 145 mmol/L K 5.3 (H) 3.5 - 5.0 mmol/L CL 112 (H) 98 - 108 mmol/L CO2 TOTAL 21 (L) 23 - 31 mmol/L AGAP 7 2 - 16 BUN 43 (H) 7 - 23 mg/dL GLUCOSE 135 (H) 70 - 110 mg/dL CREATININE 1.40 (H) 0.50 - 1.04 mg/dL CALCIUM 9.5 8.6 - 10.6 mg/dL eGFR Calculation (Non-) 36.5 mL/min/1.73m2 eGFR Calculation () 44.2 mL/min/1.73m2 CBC WITH DIFF Collection Time: 11/21/19 9:15 AM Result Value Ref Range WBC 11.49 (H) 4.30 - 11.10 10*3/L RBC 3.69 (L) 3.93 - 5.25 10*6/L HGB 11.0 (L) 11.6 - 15.0 g/dL HCT 34.6 (L) 35.7 - 45.2 % MCV 93.8 80.6 - 95.5 fL MCH 29.8 25.9 - 32.8 pg MCHC 31.8 31.6 - 35.1 g/dL RDW-SD 51.1 (H) 39.0 - 49.9 fL RDW-CV 14.8 12.0 - 15.5 % PLT 261 166 - 358 10*3/L MPV 10.8 9.5 - 12.9 fL NRBC/100 WBC 0.0 0.0 - 10.0 /100 WBCs NRBC x10^3 <0.01 10*3/L GRAN MAT (NEUT) % 69.7 % IMM GRAN % 0.90 % LYMPH % 15.9 % MONO % 9.4 % EOS % 3.7 % BASO % 0.4 % GRAN MAT x10^3(ANC) 8.00 (H) 1.88 - 7.09 10*3/uL IMM GRAN x10^3 0.10 (H) 0.00 - 0.06 10*3/uL LYMPH x10^3 1.83 1.32 - 3.29 10*3/uL MONO x10^3 1.08 (H) 0.33 - 0.92 10*3/uL EOS x10^3 0.43 (H) 0.03 - 0.39 10*3/uL BASO x10^3 0.05 0.01 - 0.07 10*3/uL PROTHROMBIN TIME / INR Collection Time: 11/21/19 9:15 AM Result Value Ref Range PROTIME PATIENT 10.4 10.1 - 12.6 Seconds INR 0.9 POCT ACT LOW RANGE Collection Time: 11/21/19 10:37 AM Result Value Ref Range ACTLR 197 (H) 89 - 169 Seconds CBC with Differential Collection Time: 11/22/19 4:28 AM Result Value Ref Range WBC 11.25 (H) 4.30 - 11.10 10*3/L RBC 3.15 (L) 3.93 - 5.25 10*6/L HGB 9.1 (L) 11.6 - 15.0 g/dL HCT 29.8 (L) 35.7 - 45.2 % MCV 94.6 80.6 - 95.5 fL MCH 28.9 25.9 - 32.8 pg MCHC 30.5 (L) 31.6 - 35.1 g/dL RDW-SD 52.1 (H) 39.0 - 49.9 fL RDW-CV 15.1 12.0 - 15.5 % PLT 196 166 - 358 10*3/L MPV 10.6 9.5 - 12.9 fL NRBC/100 WBC 0.0 0.0 - 10.0 /100 WBCs NRBC x10^3 <0.01 10*3/L GRAN MAT (NEUT) % 71.4 % IMM GRAN % 0.40 % LYMPH % 15.6 % MONO % 8.4 % EOS % 3.8 % BASO % 0.4 % GRAN MAT x10^3(ANC) 8.04 (H) 1.88 - 7.09 10*3/uL IMM GRAN x10^3 0.04 0.00 - 0.06 10*3/uL LYMPH x10^3 1.75 1.32 - 3.29 10*3/uL MONO x10^3 0.95 (H) 0.33 - 0.92 10*3/uL EOS x10^3 0.43 (H) 0.03 - 0.39 10*3/uL BASO x10^3 0.04 0.01 - 0.07 10*3/uL BASIC METABOLIC PANEL (NA, K, CL, CO2, GLUCOSE, BUN, CREATININE, CA) Collection Time: 11/22/19 4:28 AM Result Value Ref Range NA 139 135 - 145 mmol/L K 5.1 (H) 3.5 - 5.0 mmol/L CL 115 (H) 98 - 108 mmol/L CO2 TOTAL 21 (L) 23 - 31 mmol/L AGAP 3 2 - 16 BUN 35 (H) 7 - 23 mg/dL GLUCOSE 128 (H) 70 - 110 mg/dL CREATININE 1.43 (H) 0.50 - 1.04 mg/dL CALCIUM 8.5 (L) 8.6 - 10.6 mg/dL eGFR Calculation (Non-) 35.6 mL/min/1.73m2 eGFR Calculation () 43.1 mL/min/1.73m2 MAGNESIUM Collection Time: 11/22/19 4:28 AM Result Value Ref Range MAGNESIUM 1.9 1.7 - 2.4 mg/dL Ir Embolization Central Nervous System (numerical control machine machinist) Permanent Result Date: 11/21/2019 Impression: 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 I saw and examined the patient today. No Chest pain. No SOB, no headache. VSS General: alert and oriented x 3 ; no apparent distress HEENT: normocephalic atraumatic, pupils equal, round, reactive to light Neck: supple, no lymphadenopathy, no bruits, no JVD Lungs: clear to auscultation bilaterally, no crackles, no wheezes, cough is strong and effective Cardio: regular rate and rhythm, no murmurs, no gallops Abdomen: soft; non-tender; non-distended; normoactive bowel sounds Extremities: no clubbing, cyanosis, or edema Skin: no rashes Neuro: cranial nerves grossly intact; sensation grossly intact; muscle strength grossly normal in all four extremities HOSPITAL COURSE: Brain aneurysm s/p Trans radial stent assisted coiling of basilar apex aneurysm Chronic A fib H/o DVT H/o CVA HTN Plan: BP control, goal SBP 140-160 Glycemic control Aspirin per neurosurg to be added. Repeat Hg, if stable. Ok to discharge Resume BP meds Hold BB for now due to asymptomatic bradycardia. Awake, no focal neuro deficit on exam. Resume meds PT/OT Gloria ITEMS FOR FOLLOW UP PROVIDER: (including pending labs/cultures/studies, anticipated problems, etc.) FUNCTIONAL STATUS: fully ambulatory DISCHARGE CONDITION: good COGNITIVE STATUS: cognitively intact DISCHARGE INSTRUCTIONS: Discharge Orders Regular Diet; Texture: Regular. Texture Regular. Diabetic: No Discharge Condition - Discharge Condition: GOOD Discharge Activity Discharge Activity: Ambulate VTE Propylaxis- Was ordered during hospitalization Discharge Instructions Order Comments: With neurosurgery in 1-2 weeks DISCHARGE MEDICATIONS: Current Discharge Medication List START taking these medications Details aspirin 81 mg Take 81 mg by mouth daily. Qty: 60 tablet, Refills: 0 Start date: 11/23/2019 Associated Diagnoses: S/P aneurysm repair CONTINUE these medications which have NOT CHANGED Details BRILINTA 90 mg Take 90 mg by mouth 2 (two) times daily. albuterol (VENTOLIN) 2 Puffs Inhale 2 Puffs every 6 (six) hours as needed for Wheezing or Shortness of Breath. allopurinoL (ZYLOPRIM) 300 mg Take 300 mg by mouth daily. cloNIDine (CATAPRES) 0.3 mg Take 0.3 mg by mouth 3 (three) times daily. colchicine (COLCRYS) 0.6 mg Take 0.6 mg by mouth as needed. doxepin (SINEQUAN) 25 mg Take 25 mg by mouth at bedtime. gabapentin (NEURONTIN) 300 mg Take 300 mg by mouth 3 (three) times daily. torsemide (DEMADEX) 10 mg Take 10 mg by mouth daily. hydrALAZINE (APRESOLINE) 100 mg Take 100 mg by mouth 2 (two) times daily. levothyroxine (SYNTHROID) 50 mcg Take 50 mcg by mouth daily. rivaroxaban (XARELTO) 20 mg Take 20 mg by mouth daily. STOP taking these medications Nebivolol (BYSTOLIC) 1 tablet Comments: Reason for Stopping: WOUND CARE: CODE STATUS: full code OXYGEN (is patient being discharged on oxygen): no PATIENT EDUCATION PROVIDED: DISCHARGE: home self care FOLLOW-UP APPOINTMENT: PLAN FOR READMISSION: No Please call or text [phone] to contact Ortega Álvarez MD with any questions. - documented in this encounter Discharge Instructions AppointmentsMadelin Mejia - 11/22/2019 2:07 PM CDTThe neurology clinic With Dr. Indra Oconnor.will contact you for your follow up appointment. AttachmentsThe following attachments cannot be sent through Care Everywhere. Aspirin, ASA oral tablets (Niuean)Blood Thinners (Anticoagulants), Using (Niuean)Brain Aneurysm, Surgery for a (Niuean)Brain Aneurysm, Surgery: Recovery at Home (Niuean)Brain Aneurysm, What Is a (Niuean)documented in this encounter Progress Notes Dorothy Toledo RN - 11/23/2019 1:23 PM CDT Care Management Discharge Disposition Note (DCDN) 5-2-1 Interventions: Disease specific education;Clear discharge plan;Intensive medication reconciliation/management;Follow-up phone calls;Follow-up appointments 5-2-1 Providers: Physician;Teradata Developer/Screw Supervisor;Nurse 5-2-1 Patient Capacity Improvements: Other Discharge Plan for ongoing care and services: Is this a new referral: Patient Choice completed for referred services: DME location: Other DME location: Durable Medical Equipment: Home Health location: Discharge location(s): Patient choice completed for referred services: Discussed with patient/patients family involved in decision making: Patient or family caregiver understands, and agrees with discharge plan. Community resources/referrals made or provided to patient: Resources/Referrals: Transportation: Private Vehicle Mental Status: Alert & Oriented to Person,Place & Time Living Arrangement: Other living arrangement: Address of living arrangement: [address] [place] [address] Funding Resources: Medicare Replacement Nursing informed of discharge plan: Name of RN informed: Expected discharge date: 11/23/2019 Time: Additional Information: CM/SW Name & Contact number: Dorothy Toledo RN Ph. [phone] The following information has been provided to the facility noted above: reason for the patient discharge or transfer; patients physical and psychosocial status; summary of care, treatment, servicesprovided to patient; and the patient progress toward goals. Parrish Allen DO - 11/23/2019 11:24 AM CDT Medicine Progress Note Jamey Bravo is a 79 year old female patient is feeling well this morning but some mild right armpain from the procedure site. Denies any chest pain or shortness of breath. Objective Physical Exam: Vitals: 11/23/19 0619 11/23/19 0717 11/23/19 0720 11/23/19 1115 BP: (!) 159/58 (!) 158/59 132/47 Pulse: 73 75 69 Resp: 15 17 Temp: 36.7 C (98.1 F) 36.8 C (98.3 F) TempSrc: Oral Oral SpO2: 98% 97% 97% Weight: 93.9 kg (207 lb) Height: General Appearance: Alert, cooperative, no distress, appears stated age Head: Normocephalic, without obvious abnormality, atraumatic Neck: Supple no JVD or Lymphadenopathy Lungs: Clear to auscultation bilaterally, respirations unlabored Heart: S1 and S2 normal, no murmur Abdomen: Soft, NT, ND with good bowel sounds Extremities: No cyanosis, clubbing or edema Skin: Skin color, texture, turgor normal, no rashes or lesions No Bacteremia Pain assessed and addressed Medications Current Facility-Administered Medications: acetaminophen (TYLENOL) tablet 650 mg, 650 mg, Oral, Q6HPRN, Ortega Álvarez MD, 650 mg at 11/22/19 1717 aspirin chewable tablet 81 mg, 81 mg, Oral, DAILY, Everton Red MD, 81 mg at 11/23/19 0852 cloNIDine (CATAPRES) tablet 0.3 mg, 0.3 mg, Oral, TID, Ortega Álvarez MD, 0.3 mg at 11/23/19 0852 doxepin (SINEQUAN) capsule 25 mg, 25 mg, Oral, QHS, Ortega Álvarez MD, 25 mg at 11/22/192057 gabapentin (NEURONTIN) capsule 300 mg, 300 mg, Oral, TID, Ortega Álvarez MD, 300 mg at 11/23/19 08 hydrALAZINE (APRESOLINE) tablet 100 mg, 100 mg, Oral, BID, Ortega Álvarez MD, 100 mg at 11/23/19 0852 levothyroxine (SYNTHROID) tablet 50 mcg, 50 mcg, Oral, QAM-0600, Ortega Álvarez MD, 50 mcgat 11/23/19 0621 niCARdipine (CARDENE I.V.) 40 mg in 200 mL 0.83% Sodium Chloride (RTU) infusion, 2.5-15 mg/hr, IV Infusion, TITRATE, Everton Red MD, Stopped at 11/22/19 1000 ondansetron (ZOFRAN (PF)) injection 4 mg, 4 mg, Slow IV Push, Q6HPRN, Ortega Álvarez MD rivaroxaban (XARELTO) tablet 20 mg, 20 mg, Oral, DAILY, Ortega Álvarez MD, 20 mg at 11/22/19 0853 ticagrelor (BRILINTA) tablet 90 mg, 90 mg, Oral, BID, Everton Red MD, 90 mg at 11/23/19 0851 Labs/Radiology/Diagnostics Recent Results (from the past 24 hour(s)) CBC WITH DIFF Collection Time: 11/22/19 11:36 AM Result Value Ref Range WBC 11.83 (H) 4.30 - 11.10 10*3/L RBC 3.04 (L) 3.93 - 5.25 10*6/L HGB 9.0 (L) 11.6 - 15.0 g/dL HCT 29.2 (L) 35.7 - 45.2 % MCV 96.1 (H) 80.6 - 95.5 fL MCH 29.6 25.9 - 32.8 pg MCHC 30.8 (L) 31.6 - 35.1 g/dL RDW-SD 53.2 (H) 39.0 - 49.9 fL RDW-CV 15.1 12.0 - 15.5 % PLT 207 166 - 358 10*3/L MPV 11.2 9.5 - 12.9 fL NRBC/100 WBC 0.0 0.0 - 10.0 /100 WBCs NRBC x10^3 <0.01 10*3/L GRAN MAT (NEUT) % 76.4 % IMM GRAN % 0.60 % LYMPH % 13.1 % MONO % 7.3 % EOS % 2.3 % BASO % 0.3 % GRAN MAT x10^3(ANC) 9.05 (H) 1.88 - 7.09 10*3/uL IMM GRAN x10^3 0.07 (H) 0.00 - 0.06 10*3/uL LYMPH x10^3 1.55 1.32 - 3.29 10*3/uL MONO x10^3 0.86 0.33 - 0.92 10*3/uL EOS x10^3 0.27 0.03 - 0.39 10*3/uL BASO x10^3 0.03 0.01 - 0.07 10*3/uL @ASSESSMENTPLANBEGIN@ Bharati Ruvalcaba Anisha is a 79 year old female admitted with S/p elective brain aneurysm repair Principal Problem: S/P aneurysm repair Active Problems: Post-op pain ? Appreciated input from neurosurgery ? Continuing on aspirin and Brilinta ? Encourage oral intake and ambulation ? Patient is awaiting to be picked up by the daughter this morning ? See discharge summary from yesterday from Dr.Athera Most recent hemoglobin A1c level: Length of Stay: 2 PARRISH CATESGEECAILIN PHONE [phone] Liborio Wong SW - 11/22/2019 3:09 PM CDTSummary: MADDIE Care Management Social Functional Assessment Patient Name: Bharati Bravo Age: [age] year old Sex: female Patient's Previous Admission Date at [facility]: 04/01/2016 Current diagnosis and co-morbidities: Congenital anomaly of cerebrovascular system [Q28.3] Readmission Questions: Was patient discharged from any acute care hospital within the last 30 days: No Social Functional Assessment: Primary language spoken/preferred: Niuean Mental Status: Alert & Oriented to Person,Place & Time Information given by: Other Patient's support system: Spouse;Child Name and number of support system: YSABEL GARCIA [phone] ALYSSA BRAVO SPOUSE [phone] Primary Fashion Consultant: Self MPOA: Same as support system Address of living arrangement : [address] [place] [address] Persons living in home: Self;Spouse;Child Barriers to returning home: None Baseline functional status- ambulation: Independent Functional status-baseline personal care: Independent Baseline functional status- driving: Dependent Baseline functional status- grocery shopping: Requires minimal to moderate assistance Functional status-baseline housekeeping: Requires minimal to moderate assistance Functional status-baseline meal prep: Requires minimal to moderate assistance Current functional status same as prior: Yes Do you have a PCP?: Yes Name of PCP: DR CASA MORTON Home Health Care Agency: No Provider Services: No DME Company: No Equipment: Walker Hemodialysis: No Funding Resources: Medicare Replacement Medicare Replacement name and information: [employer] Prescription coverage plan: Medicare Part D Anticipated services prior to disharge: Continue Medical Eval Expected mode of discharge transportation: Family Additional info required for discharge planning: Pending medical evaluation Recommended discharge plan: Home SFA Complete: Social Functional Assessment complete: Yes Alcohol Use Screening (AUDIT-C) How often do you have a drink containing alcohol?: Never SCORE: 0 Did patient elect to have resources provided: No Role of Care Management explained. 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 Patient denies any pain, no headache or dizziness, no blurring of vision. No fever or CP. PAST MEDICAL HISTORY Past Medical History: Diagnosis Date Acid reflux well controlled Atrial fibrillation Cleared by Dr. Morton and Dr. Mcleod Cataract Cerebrovascular disease DVT of leg (deep venous thrombosis) 2012 Left leg, taking zarelto Dyslipidemia Gout Hyperlipidemia Hypertension Hypothyroidism Post-operative nausea and vomiting RBBB (right bundle branch block) Past Surgical History: Procedure Laterality Date APPENDECTOMY ARTHROSCOPIC SHOULDER ROTATOR CUFF REPAIR Left CHOLECYSTECTOMY KNEE ARTHROSCOPY Bilateral OPEN CARPAL TUNNEL RELEASE Bilateral PHACOEMULSIFICATION OF CATARACT WITH INTRAOCULAR LENS IMPLANT Left 12/09/2017 Surgeon: Benjamin Rodriguez MD; Location: [facility] OR [facility] PHACOEMULSIFICATION OF CATARACT WITH INTRAOCULAR LENS IMPLANT Right 12/23/2017 Surgeon: Benjamin Rodriguez MD; Location: [facility] OR [facility] THYROIDECTOMY Questionable - was told that her thyroid was removed at age [age] TOTAL KNEE ARTHROPLASTY Left 04/01/2016 Surgeon: Flex Marrero MD; Location: [facility] OR Location No family history on file. ALLERGIES Allergies Allergen Reactions Adhesive Tape-Silicones Other - See comments Tears skin Codeine Nausea and/or Vomiting and Palpitations Darvocet A500 [Propoxyphene N-Acetaminophen] Nausea and/or Vomiting and Palpitations Hydrocodone Nausea and/or Vomiting and Palpitations Morphine Nausea and/or Vomiting Tylenol-Codeine #3 [Acetaminophen-Codeine] Nausea and/or Vomiting and Palpitations Flexeril [Cyclobenzaprine] Other - See comments tremors MEDICATIONS No current facility-administered medications on file prior to encounter. Current Outpatient Medications on File Prior to Encounter Medication Sig Dispense Refill ticagrelor (BRILINTA) 90 mg tablet Take 90 mg by mouth 2 (two) times daily. albuterol 90 mcg/actuation inhaler Inhale 2 Puffs every 6 (six) hours as needed for Wheezing or Shortness of Breath. allopurinol 300 mg tablet Take 300 mg by mouth daily. cloniDINE 0.2 mg tablet Take 0.3 mg by mouth 3 (three) times daily. colchicine 0.6 mg tablet Take 0.6 mg by mouth as needed. doxepin 25 mg capsule Take 25 mg by mouth at bedtime. gabapentin 300 mg capsule Take 300 mg by mouth 3 (three) times daily. torsemide 10 mg tablet Take 10 mg by mouth daily. hydralAZINE (APRESOLINE) 100 mg tablet Take 100 mg by mouth 2 (two) times daily. levothyroxine (SYNTHROID) 50 mcg tablet Take 50 mcg by mouth daily. Nebivolol (BYSTOLIC) 20 mg tablet Take 1 tablet by mouth daily. rivaroxaban (XARELTO) 20 mg tablet Take 20 mg by mouth daily. SOCIAL HISTORY Social History Socioeconomic History Marital status: Spouse name: Not on file Number of children: Not on file Years of education: Not on file Highest education level: Not on file Occupational History Not on file Social Needs Financial resource strain: Not on file Food insecurity Worry: Not on file Inability: Not on file Transportation needs Medical: Not on file Non-medical: Not on file Tobacco Use Smoking status: Former Smoker Smokeless tobacco: Never Used Tobacco comment: Quit 4 years ago Substance and Sexual Activity Alcohol use: No Alcohol/week: 0.0 standard drinks Drug use: No Sexual activity: Not on file Lifestyle Physical activity Days per week: Not on file Minutes per session: Not on file Stress: Not on file Relationships Social connections Talks on phone: Not on file Gets together: Not on file Attends restorationist service: Not on file Active member of club or organization: Not on file Attends meetings of clubs or organizations: Not on file Relationship status: Not on file Intimate partner violence Fear of current or ex partner: Not on file Emotionally abused: Not on file Physically abused: Not on file Forced sexual activity: Not on file Other Topics Concern Not on file Social History Narrative Not on file REVIEW OF SYSTEMS (-)=Negative,(+)=Positive General: (-) fever, (-) chills, (-) weight loss Skin: (-) rash, (-) lesion HEENT: (-) headache, (-) change in vision, (-) sore throat Neck: (-) pain, (-) difficulty swallowing, (-) mass Heme: (-) bleeding disorder Resp: (-) cough, (-) shortness of breath, (-) wheezing Cardio: (-) chest pain, (-) palpitations, (-) syncope GI: (-) abdominal pain, (-) vomiting, (-) diarrhea : (-) dysuria, (-) hematuria, (-) increased frequency Endo: (-) heat intolerance, (-) diabetes, (-) cold intolerance Neuro: (-) numbness, (-) weakness, (-) change in speech Back: (-) pain, (-)spasms RONALDO: (-) muscle pain, (-) joint pain, (-) claudication Psych: (-) anxiety, (-) depression, (-) psychiatric disorder PHYSICAL EXAMINATION Vitals: 11/15/19 1042 11/21/19 1020 11/21/19 1400 11/21/19 1405 BP: (!) 169/76 (!) 145/47 Pulse: 78 54 54 Resp: Temp: 36.4 C (97.5 F) TempSrc: Temporal Artery SpO2: 98% 93% 92% Weight: 86.2 kg (190 lb 0.6 oz) 88.2 kg (194 lb 6.4 oz) Height: 1.676 m (5' 6") O2 sat: SpO2 readings for the past 24 hrs: SpO2 11/21/19 1020 98 % 11/21/19 1400 93 % 11/21/19 1405 92 % I & O: Intake/Output Summary (Last 24 hours) at 11/21/2019 1417 Last data filed at 11/21/2019 1343 Gross per 24 hour Intake 1200 ml Output 1395 ml Net -195 ml Pain Scale: General: alert and oriented x 3 ; no apparent distress HEENT: normocephalic atraumatic, pupils equal, round, reactive to light Neck: supple, no lymphadenopathy, no bruits, no JVD Lungs: clear to auscultation bilaterally, no crackles, no wheezes, cough is strong and effective Cardio: regular rate and rhythm, no murmurs, no gallops Abdomen: soft; non-tender; non-distended; normoactive bowel sounds Extremities: no clubbing, cyanosis, or edema Skin: no rashes Neuro: cranial nerves grossly intact; sensation grossly intact; muscle strength grossly normal in all four extremities LABS - reviewed pertinent labs as below: Recent Results (from the past 48 hour(s)) Type and Screen - ONCE Routine Collection Time: 11/21/19 8:43 AM Result Value Ref Range ABO & RH A Positive IAT Negative BASIC METABOLIC PANEL (NA, K, CL, CO2, GLUCOSE, BUN, CREATININE, CA) Collection Time: 11/21/19 9:14 AM Result Value Ref Range NA 140 135 - 145 mmol/L K 5.3 (H) 3.5 - 5.0 mmol/L CL 112 (H) 98 - 108 mmol/L CO2 TOTAL 21 (L) 23 - 31 mmol/L AGAP 7 2 - 16 BUN 43 (H) 7 - 23 mg/dL GLUCOSE 135 (H) 70 - 110 mg/dL CREATININE 1.40 (H) 0.50 - 1.04 mg/dL CALCIUM 9.5 8.6 - 10.6 mg/dL eGFR Calculation (Non-) 36.5 mL/min/1.73m2 eGFR Calculation () 44.2 mL/min/1.73m2 CBC WITH DIFF Collection Time: 11/21/19 9:15 AM Result Value Ref Range WBC 11.49 (H) 4.30 - 11.10 10*3/L RBC 3.69 (L) 3.93 - 5.25 10*6/L HGB 11.0 (L) 11.6 - 15.0 g/dL HCT 34.6 (L) 35.7 - 45.2 % MCV 93.8 80.6 - 95.5 fL MCH 29.8 25.9 - 32.8 pg MCHC 31.8 31.6 - 35.1 g/dL RDW-SD 51.1 (H) 39.0 - 49.9 fL RDW-CV 14.8 12.0 - 15.5 % PLT 261 166 - 358 10*3/L MPV 10.8 9.5 - 12.9 fL NRBC/100 WBC 0.0 0.0 - 10.0 /100 WBCs NRBC x10^3 <0.01 10*3/L GRAN MAT (NEUT) % 69.7 % IMM GRAN % 0.90 % LYMPH % 15.9 % MONO % 9.4 % EOS % 3.7 % BASO % 0.4 % GRAN MAT x10^3(ANC) 8.00 (H) 1.88 - 7.09 10*3/uL IMM GRAN x10^3 0.10 (H) 0.00 - 0.06 10*3/uL LYMPH x10^3 1.83 1.32 - 3.29 10*3/uL MONO x10^3 1.08 (H) 0.33 - 0.92 10*3/uL EOS x10^3 0.43 (H) 0.03 - 0.39 10*3/uL BASO x10^3 0.05 0.01 - 0.07 10*3/uL PROTHROMBIN TIME / INR Collection Time: 11/21/19 9:15 AM Result Value Ref Range PROTIME PATIENT 10.4 10.1 - 12.6 Seconds INR 0.9 POCT ACT LOW RANGE Collection Time: 11/21/19 10:37 AM Result Value Ref Range ACTLR 197 (H) 89 - 169 Seconds IMAGING - reviewed, pertinent results as below: No final results containing an impression from the past 48 hours were found. 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 Resume meds PT/OT Xarelto Most recent hemoglobin A1c level: No DM Advance Care Planning discussed and documented; advance care plan or surrogate decision maker documented in the medical record: Pain Assessment Documented: addressed Patient treated with a beta-lactam antibiotic as definitive therapy MSSA bacteremia: Patients with Primary Headache Diagnosis and Imaging of the Head was Obtained: documented in this encounter Consult Notes Marisabel Calvert SLP - 11/23/2019 11:59 AM CDTAssociated Order(s): CONSULT SPEECH Speech-Language Pathology Clinical Swallow Evaluation 11/23/2019 Bharati Bravo : 1940 Age: [age] year old Sex: female Referring Physician: Parrish Allen DO Date of Referral: 11/23/2019 Reason for Referral: dysphagia Date of Admission/Onset: 11/21/19 Time IN/OUT: 11:43-12:07 SUBJECTIVE: Patient stated she has had mild difficulty swallowing for years. She did not notice a change in swallowing after he recent stroke this year. She stated she sometimes coughs when she eats and drinks, but "It doesn't bother me. It's been going on a long time." She denied any recent pneumonia. She prefers to swallow pills whole in applesauce or pudding. She has noticed that bread will sometimes get stuck in her throat. OBJECTIVE: is being seen for a clinical swallow evaluation. Bharati Bravo is a 79 year old female admitted for post op monitoring following transradial stent assisted coiling of basilar apex aneurysm.PMH significant for left CVA in May 2019, GERD, COPD, left carotid stent, as otherwise stated below. Pt was referred for swallow evaluation after nurse observed patient to cough on liquids this morning. 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 Most recent chest imaging from outside facility was completed on 05/25/19 and showed clear lungs. Previous MILK VENDOR Services/Swallow History: Seen by MILK VENDOR at [facility] at time of her stroke. No objective swallow assessment was completed. Based on clinical swallow evaluation, patient was recommended for regular solids and thin liquids. Past Medical History: Diagnosis Date Acid reflux well controlled Atrial fibrillation Cleared by Dr. Morton and Dr. Mcleod Cataract Cerebrovascular disease DVT of leg (deep venous thrombosis) 2012 Left leg, taking zarelto Dyslipidemia Gout Hyperlipidemia Hypertension Hypothyroidism Post-operative nausea and vomiting RBBB (right bundle branch block) Past Surgical History: Procedure Laterality Date APPENDECTOMY ARTHROSCOPIC SHOULDER ROTATOR CUFF REPAIR Left CHOLECYSTECTOMY KNEE ARTHROSCOPY Bilateral OPEN CARPAL TUNNEL RELEASE Bilateral PHACOEMULSIFICATION OF CATARACT WITH INTRAOCULAR LENS IMPLANT Left 12/09/2017 Surgeon: Benjamin Rodriguez MD; Location: [facility] OR Location PHACOEMULSIFICATION OF CATARACT WITH INTRAOCULAR LENS IMPLANT Right 12/23/2017 Surgeon: Benjamin Rodriguez MD; Location: [facility] OR [facility]ly [facility] THYROIDECTOMY Questionable - was told that her thyroid was removed at age 9 or 10 TOTAL KNEE ARTHROPLASTY Left 04/01/2016 Surgeon: Flex Marrero MD; Location: [facility] OR [facility] General Behavior: Alert and Cooperative Hearing: Within Functional Limits for speech Oral Mechanism: Structure: moist oral mucosa, clean oral cavity and upper dentures, lower natural dentition with some missing teeth Function: Unremarkable - no facial droop/weakness, no subjective trismus, symmetric labial spread and pucker, lingual protrusion midline with equal lateralization, symmetrical palatal retraction, no dysphonia, no dysarthria, no apraxia Respiratory Status: room air Orientation/Cognition: - Patient oriented to: person, place, time and situation - Response type: verbal - If verbal, describe speech: clear - Follows 1-step commands: Yes CLINICAL SWALLOW EVALUATION Current Diet Texture/Means of Nutrition: mechanical soft, thin liquids Swallows on command: Yes Handles Secretions: Yes Volitional Cough: Yes Spontaneous Cough: Yes PO trials were administered by patient. Patient was provided with multiple bites/sips of thin liquids, puree and chewable solid consistencies with the following observations: Oral Stage: Anterior leakage of bolus (left or right) not observed Pocketing of bolus (left or right) not observed Subjectively Prolonged oral phase not observed Oral residue (left/right/diffuse) not observed Pharyngeal Stage: Subjectively reduced laryngeal elevation not observed Coughing or throat clearing observed: large immediate coughs after continuous sips of thin liquid, throat-clear after 1/10 cup sips of thin liquid, and throat-clear after 1/5 trials of puree. None after single straw sips thin liquid or after solids. Change in voice quality not observed Multiple swallows subjectively not observed Respiratory sufficiency and coordination: WFL - no increased work of breathing and/or oxygen sats and respiratory rate remained stable Report of globus sensation: Yes - after solids that improved with sips of liquid 3 oz water challenge: failed Patient/Family/Staff education: Provided verbally. Discussed findings of evaluation, recommendationsand MILK VENDOR plan of care. Discussed recommendation/option for instrumental swallow assessment. RN and referring provider notified of findings and recommendations. Educated about what are overt s/s aspiration and signs of a developing respiratory infection to look out for. Educated about swallow precautions, specifically to take single sips at a time. Pt stated she is agreeable to an MBS, but does not want to have it completed as an inpatient because she wants to go home MANPREET, as her sister is visiting from [place] and waiting to pick her up. Pt was informed that MBS could be completed as an outpatientprocedure and patient stated she would like that. Patient/Family goal: to go home MANPREET ASSESSMENT/IMPRESSIONS: Bharati Ruvalcaba Means presents with suspected dysphagia, which per patient is chronic, though patient doeshave risk factors for dysphagia that include recent stroke and brain aneurysm. Pt was assessed with thin liquids, purees, and regular solids. Oral motor exam was unremarkable. Mastication was timely and she achieved complete oral clearance between bites. Labial seal was complete and prevented anteriorspillage. She produced immediate large coughs after continuous sips of thin liquids, concerning for aspiration. Note: aspiration cannot be ruled out nor confirmed without objective assessment/imaging.She consumed single sips of thin liquids without any large coughs, but with a throat clear x1/10 trials. She also produced a throat-clear following 1/5 puree trials, but none following regular solids or straw sips of thin liquids. Vocal quality remained clear. She endorsed globus sensation after the cracker that resolved with a sip of thin liquid. An objective swallow assessment is recommended to further evaluate swallowing, but patient has declined to have this completed as an inpatient. This can be completed as an outpatient instead. She does appear to be safe to continue with PO intake of a regular diet and thin liquids with single sips at atime as there are no indications of a developing respiratory infection, this issue is chronic and appears to be mild, and she does not have a recent history of pneumonia. Prognosis is fair for safe po intake with adherence to swallow precautions due to above findings andlack of indications of aspiration-related infection. RECOMMENDATIONS/GOALS: 1. Recommend patient initiate a regular-textured diet with thin liquids and swallow precautions: sitfully upright/chair, small single sips at a time, remain upright for 30 minutes after meals and givepills whole in puree or pudding. 2. Recommend referral for outpatient modified barium swallow study 3. No further acute MILK VENDOR services indicated at this time, so service is signing off. Please re-consult if indicated. Thank you. Marisabel Calvert M.S., [facility] Speech-Language Pathologist Pager: [phone] Office: [phone] signed by Marisabel Calvert, MILK VENDOR at 11/23/2019 1:36 PM CDTDesTonya ghosh, PT - 11/22/2019 2:33 PM CDTAssociated Order(s): CONSULT ADULT PHYSICAL THERAPY Patient agreeable to working with physical therapy. Patient met Semi reclined in bed. Nurse Figueroa approved PT visit. PHYSICAL THERAPY EVALUATION Consult received, chart reviewed and evaluation complete this date. Patient is referred to PT for evaluation and treatment. Patient is a 79 year old female who presents to hospital for Brain Aneurysm, s/p large basilar apex aneurysm repair on 11/21/19. PMHX: L CVA, R BBB, LLE DVT, HTN, A-fib, L carotid stent, Daily Has, GERD. Discharge Recommendations: Therapy Needs and Potential: Patient would benefit from continued physical therapy services to address: decline in bed mobility decline in transfers decline in gait and/or balance decreased strength decreased endurance Patient demonstrates good potential to improve and meet therapy goals with further physical therapy services. Patient appears motivated to improve their functional mobility and return to their previous levelof function. Patient demonstrates ability to tolerate atleast 30-60 minutes of physical therapy with active participation. Challenges to Home Transition: increased risk of falls decreased safety awareness Equipment recommendations: has DME Current Functional Status and/or Treatment:Functional mobility training, Transfer training, Gait training, Patient/Family/Caregiver education and Therapeutic exercise Bed Mobility: Rolling: SBA/Setup Scooting in supine: SBA/Setup Supine-sit: SBA/Setup Sitting balance Fair+ Scooting to edge of bed: SBA/Setup Sit to supine: SBA/Setup. Pt required marked increased time to come to sitting and to scoot to EOB with cues for technique and breathing Transfers: Sit to stand: CGA using Rolling Walker from EOB but required min a from low toilet Stand to sit: CGA using Rolling Walker Static/dynamic standing balance: F+ for majority of time but did have one LOB requring F Verbal cueing provided for correct hand placement and correct use of AD, From EOB and Toilet with grab bar, patient was unable to urinate though tried for some time, encouraged her to drink more fluids which her nurse also emphasized Mild dizziness with intial standing but improved with PLB Ambulation: Assisted patient with ambulation as follows: 160 feet using Rolling Walker and CGA Patient presenting with 4 point gait pattern. . Pt performed sidesteps to the R with RW w/min a with 1 LOB then forward and backward gait x 4 ft w/RW w/CGA with improvement noted so then had patient ambulate into the hallway Very slow aditi Cues to look up and for her posture, cues for correct use of RW and positioning within it Therapeutic exercise: patient educated in Adaptive equipment , Compensatory techniques/adaptive strategies, Deep breathing, Fall prevention, General strengthening, Positioning, Relaxation/breathing techniques and Safety awareness., instructed patient in the following: glut sets, long arc quads, seated marching, hip flex, achilles stretch w/5 sec holds with correct breathing, slowly, patient/caregiver instructed to perform HEP 2-3 times per day, 10-15 repetitions., patient/caregiver verbalizes understanding of instructions., Handout given, reviewed, educated on benefits of the ex's to her mobility. Pt educated on bene fits of using her BSC for a time at night if needs to get up to go to bathroom for safety, educated to have sister with her for all transfers and gait until she feels safe again in the home. Vitals: EOB 174/65, back in bed after gait 173/61, HR 81-89, O2 94-96%. Pt had onset of ALLEN while sitting on toilet so encouraged her to work on PLB which improved it, informed nurse. After session, patient Semi reclined in bed. Call button provided. Nurse Carolina informed of her levels,LOB, and inability to urinate. PLAN OF CARE: At least 2 times per week, once or twice a day (while in hospital) per patient's tolerance and medical needs. See below for complete details. 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 Morton and Dr. Mcleod Cataract Cerebrovascular disease DVT of leg (deep venous thrombosis) 2012 Left leg, taking zarelto Dyslipidemia Gout Hyperlipidemia Hypertension Hypothyroidism Post-operative nausea and vomiting RBBB (right bundle branch block) PSH: Past Surgical History: Procedure Laterality Date APPENDECTOMY ARTHROSCOPIC SHOULDER ROTATOR CUFF REPAIR Left CHOLECYSTECTOMY KNEE ARTHROSCOPY Bilateral OPEN CARPAL TUNNEL RELEASE Bilateral PHACOEMULSIFICATION OF CATARACT WITH INTRAOCULAR LENS IMPLANT Left 12/09/2017 Surgeon: Benjamin Rodriguez MD; Location: [facility] OR Location PHACOEMULSIFICATION OF CATARACT WITH INTRAOCULAR LENS IMPLANT Right 12/23/2017 Surgeon: Benjamin Rodriguez MD; Location: [facility] OR Location THYROIDECTOMY Questionable - was told that her thyroid was removed at age [age] TOTAL KNEE ARTHROPLASTY Left 04/01/2016 Surgeon: Flex Marrero MD; Location: [facility] OR Location Prior Living Situation: lives alone but her sister is going to stay with her for a while and has already come in, they have 4 small dogs in the home, H with no steps DME: Bed Side Commode, Single Point Cane, Rolling Walker, Four wheeled walker with seat, Wheel Chair Prior level of Mobility: community ambulation, house hold ambulation, ambulates with Four wheeled walker with seat, and furniture walks mostly Subjective: states her just , they were 56 yrs. States she has not driven sinceFeb, kids won't let her. Patient/Family Goals: go home today Patient/Family verbalizes understanding of condition: Yes PAIN: 0/10 at rest but with any movement of L wrist pain 6-8/10 (Art Line recently removed) - nurse informed COMMUNICATION Primary Language: Niuean Able to Verbalize needs: Yes Vision:glasses Hearing:good; no issues reported ORIENTATION/COGNITION: Oriented to: person, place, date/time and situation Awake: Yes Alert: Yes Dizzy: Yes with standing Follows Commands: Yes 1-Step Yes Multi-Step Yes Inconsistent: No NEUROLOGICAL Light Touch: within functional limits bilateral LE, Heel to larsen: intact Tone: wfl BALANCE: Sitting: Static: Fair+ Dynamic: Fair+ Standing: Static: Fair+ Dynamic: Fair RANGE OF MOTION: within functional limits bilateral LE, STRENGTH: 4-/5 (G-), bilateral LE ENDURANCE: Fair+, Room air SKIN INTEGRITY: not intact, bruises B UEs PROBLEM LIST: Decline in bed mobility, Decline in gait, Decline in transfers, Decreased strength, Decreased endurance, Decreased balance, Safety awareness deficits, Pain and Vertigo ASSESSMENT: Patient is a 79 year old female seen secondary to the above listed diagnosis. Patient would benefit from continued PT to address the above listed deficits to maximize independence and safety with functional mobility. Rehabilitation Potential: good Goals: The following goals are to maximize independence and safety with functional mobility to eventually return to prior living situation and prior functional status. Upon discharge, patient and/or family will demonstrate the followin. Supine-sit: Modified independent 2. Sit to stand: Modified independent using Rolling Walker 3. Modified independent with ambulation, Feet: 200 using least assistive device. 4. Demonstrate or verbalize understanding of home exercise program in order to continue with their rehab on their own. Treatment Plan: Gait training, Therapeutic exercise, Transfer training, Balance training, Bed mobility training, Safety education, patient/caregiver education, Pain management, Neuromuscular Re-Education and Functional Motor Training PATIENT EDUCATION: Patient provided with preferred teaching of verbal information, written information and demonstration on role of PT, plan of care, HEP, benefits of the ex's to her mobility, PLB, home safety, fall prevention, bed mobility and transfer techniques, use of RW. Shows readiness to learn.Verbal instruction and Written material teaching provided. Individual is able to read and needs reinforcement of teaching. Total Time Tx Codes in Minutes: 47 min Total Treatment Time in Minutes: 55 min Tonya Carlos, PT [phone] pgr documented in this encounter Nursing Notes Richa Gutiérrez RN - 11/23/2019 6:31 AM CDTPatient was given her AM medication and had noticeable coughing after drinking her fluids. Primary RN mentioned to the patient that a follow up would need to be made to [facility]/Hospitalist and that they may want her to be NPO until further evaluation can be made. Patient shared that coughing happens sometimes while she is eating and/or drinking and that she was 'told that she can go home today and wantsto go home today'. RN notified [facility]/Hospitalist of occurrence and educated patient on risk of aspirati on. Patient to continue to be monitored for well being and safety. Richa Head RN - 11/23/2019 12:15 AM CDTSummary: Transfer of Care Primary RN received ICU downgrade from [facility] patient is alert and oriented, no complaints of pain or signs of distress, generalized edema present, call light within reach, bed in low position and will continue to be monitored for well being. Giana Cee RN - 11/21/2019 3:47 PM CDTTR band off now. R radial is clean,dry, intact. No bleeding noted. Will monitor for changes. Pt continues to deny pain. Giana Mcneal RN - 11/21/2019 2:[address]eda and [address] Wild aware SBP is 170's. Pt is SB on tele. Pt DBP in 40's. Instructed to leave Cardene at current rate and do not titrate because of bradycardia and low diastolic. Awaiting furtherorders. Kathleen Hightower RN - 11/21/2019 12:46 PM CDTProcedure Complete;VSS;NAD; Pt under anesthesia care team. Report given to TOI Figueroa on 4C Kathleen Hightower RN - 11/21/2019 9:40 AM CD[facility]t [facility] and [facility] to procedure table in supine position. Pt under anesthesia care team;VSS;NAD documented in this encounter Miscellaneous Notes Care Plan - Jennie Land RN - 11/23/2019 12:37 PM CDT Problem: Discharge Planning Goal: Absence of venous thromboembolism Outcome: Adequate for discharge Goal: Adequate for discharge Outcome: Adequate for discharge Goal: Effective communication Outcome: Adequate for discharge Problem: Falls, Risk of Goal: Absence of falls Outcome: Adequate for discharge Problem: Pain Goal: Control of pain at or below patient's documented comfort goal Outcome: Adequate for discharge Goal: Reduction in pain sensation Outcome: Adequate for discharge Problem: Skin integrity Impaired (Risk or Actual) Goal: Prevention of new skin breakdown Outcome: Adequate for discharge Problem: Tissue Perfusion - Altered, Risk of Goal: Hemodynamically stable Outcome: Adequate for discharge are Domi - Dustin Gu RN - 11/23/2019 9:50 AM CDT Problem: Discharge Planning Goal: Absence of venous thromboembolism Outcome: Progressing as expected Goal: Adequate for discharge Outcome: Progressing as expected Goal: Effective communication Outcome: Progressing as expected Problem: Falls, Risk of Goal: Absence of falls Outcome: Progressing as expected Problem: Pain Goal: Control of pain at or below patient's documented comfort goal Outcome: Progressing as expected Goal: Reduction in pain sensation Outcome: Progressing as expected Problem: Skin integrity Impaired (Risk or Actual) Goal: Prevention of new skin breakdown Outcome: Progressing as expected Problem: Tissue Perfusion - Altered, Risk of Goal: Hemodynamically stable Outcome: Progressing as expected are Domi - Denton Reeves RN - 11/22/2019 11:19 PM CDT Problem: Discharge Planning Goal: Absence of venous thromboembolism Outcome: Progressing as expected Goal: Adequate for discharge Outcome: Progressing as expected Goal: Effective communication Outcome: Progressing as expected Problem: Falls, Risk of Goal: Absence of falls Outcome: Progressing as expected Problem: Pain Goal: Control of pain at or below patient's documented comfort goal Outcome: Progressing as expected Goal: Reduction in pain sensation Outcome: Progressing as expected Problem: Skin integrity Impaired (Risk or Actual) Goal: Prevention of new skin breakdown Outcome: Progressing as expected Problem: Tissue Perfusion - Altered, Risk of Goal: Hemodynamically stable Outcome: Progressing as expected are Plan - Ami Davey RN - 11/21/2019 10:42 PM CDT Problem: Discharge Planning Goal: Absence of venous thromboembolism Outcome: Progressing as expected Goal: Adequate for discharge Outcome: Progressing as expected Goal: Effective communication Outcome: Progressing as expected Problem: Falls, Risk of Goal: Absence of falls Outcome: Progressing as expected Problem: Pain Goal: Control of pain at or below patient's documented comfort goal Outcome: Progressing as expected Goal: Reduction in pain sensation Outcome: Progressing as expected Problem: Skin integrity Impaired (Risk or Actual) Goal: Prevention of new skin breakdown Outcome: Progressing as expected Problem: Tissue Perfusion - Altered, Risk of Goal: Hemodynamically stable Outcome: Progressing as expected ursing Note - Giana Cee RN - 11/21/2019 1:50 PM CDTAssumed care of this patient now from OR. Dr. Red at bedside and assessing patient. (Neurosurgery). Pt alert, oriented and COHEN 5/5. Pupils equal and reactive. R radial TR band intact and will start to decompress now-2cc/every 15 minutes until deflated. Will monitor for bleeding at site. SB on tele.BP 134/49. Cardene at 5mg/hr. Will titrate PRN. ursing Note - Karmen Ross RN - 11/21/2019 9:00 AM CDTVitals were taken at 0845 documented in this encounter Plan of Treatment Date Type Specialty Care Team Description 12/25/2019 Office Visit Neurological Surgery ElvinIndra MD [address] [place] [address] [address] [place] [address] [phone] Name Type Priority Associated Diagnoses Order S chedule EKG-12 LEAD ROUTINE HEART STATION Routine ONCE fo r 1 Occurrences starting 2019 until 0 Health Maintenance Due Date Last Done Comments DTaP,Tdap,and Td Vaccines (1 - Tdap) 1961 Zoster Recombinant Vaccine (SHINGRIX) (1 of 2) 02/08/1992 LUNG CANCER SCREEN: Recommended for age 55-80 with 30 1997 + pack year history Medicare Wellness Visit 2007 Osteoporosis Screening 2007 PNEUMOCOCCAL VACCINES 65+ (1 of 1 - PPSV23) 2007 INFLUENZA VACCINE (#1) 2019 Depression Screening 11/20/2020 11/21/2019 documented as of this encounter Implants Implanted Type Area Machine Learning Intern Device Shelf Model / Serial Identifier Expiration / Lot Date Palacos [employer] Cement W/ Gent CEMENT Left: Knee Vinny 1113-140-01 / Implanted: Qty: 1 on 04/01/2016 by Flex Penaloza MD at [facility] 8 [id number] / [id number] [employer] Cement W/ Gent CEMENT Left: Knee Vinny 1113-140-01 / Implanted: Qty: 1 on 04/01/2016 by Flex Penaloza MD at [facility] 8 [id number] / [id number] Ps Open Box Femoral-Left Femur Left: Knee Biomet 11/0 06/2025 [id number] / Implanted: Qty: 1 on 04/01/2016 by Flex Penaloza MD at [facility] J [id number] / [id number] Fixed Cruciate Tibial Plate KNEE Left: Knee Biomet 0 09/18/2025 [id number] / Implanted: Qty: 1 on 04/01/2016 by Flex Penaloza MD at [facility] J [id number] / [id number] Ps Tibial Bearing KNEE Left: Knee Biomet 06/25/2020 [id number] / Implanted: Qty: 1 on 04/01/2016 by Flex Penaloza MD at [facility] [id number] / [id number] Lens, Raf #[id number] - [id number] LENS Left: Eye Raf 06/09/2022 [id number] / Implanted: Qty: 1 on 12/09/2017 by Benjamin Rodriguez MD at [facility] 2 [id number] / [id number] Lens, Raf #[id number] - [id number] LENS Right: Eye Raf 08/09/2022 [id number] / Implanted: Qty: 1 on 12/23/2017 by Benjamin Rodriguez MD at [facility] 7 [id number] / [id number] Neuroform [place] STENT N/A: Nesbit 08/17/2023 UZA [id number] / Implanted: Qty: 1 on 11/21/2019 by Indra Oconnor MD at [facility] ([facility]) Cranium [id number] / [id number] Adc Patella 28 X 8 Mm - [id number] Left: Knee Biomet 11/01/2020 [id number] / Implanted: Qty: 1 on 04/01/2016 by Flex Penaloza MD at [facility] 9 [id number] / [id number] Target 360 Ultra Detachable Coil Cranium Nesbit 04/29/2021 [id number] / Implanted: Qty: 1 on 11/21/2019 by Indra Oconnor MD at [facility] ([facility]) [id number] / [id number] Target 360 Ultra Detachable Coil Cranium Nesbit 05/03/2021 [id number] / Implanted: Qty: 1 on 11/21/2019 by Indra Oconnor MD at [facility] ([facility]) [id number] / [id number] documented as of this encounter Procedures Procedure Name Priority Date/Time Associated Diagnosis Comme nts CBC WITH DIFF MANPREET 11/22/2019 11:36 Results fo r this AM CDT procedure are i n the results section. CBC WITH DIFF MANPREET 11/22/2019 4:28 Results fo r this AM CDT procedure are i n the results section. BASIC METABOLIC MANPREET 11/22/2019 4:28 Results for this PANEL (NA, K, CL, AM CDT procedure are in CO2, GLUCOSE, BUN, the resul ts CREATININE, CA) section. MAGNESIUM MANPREET 11/22/2019 4:28 Results for this AM CDT procedure are i n the results section. IR EMBOLIZATION MANPREET 11/21/2019 1:16 Congenital anomaly of Results for this CENTRAL NERVOUS PM CDT cerebrovascular system pr ocedure are in SYSTEM (SECURITY SUPPORT ANALYST) the results PERMANENT section. POCT ACT LOW RANGE Routine 11/21/2019 10:37 Resul ts for this AM CDT procedure are i n the results section. PROTHROMBIN TIME / MANPREET 11/21/2019 9:15 Congenital anomaly of Results for this INR AM CDT cerebrovascular system proce dure are in the results section. CBC WITH DIFF MANPREET 11/21/2019 9:15 Congenital anomaly of R esults for this AM CDT cerebrovascular system proce dure are in the results section. BASIC METABOLIC MANPREET 11/21/2019 9:14 Congenital anomaly of Results for this PANEL (NA, K, CL, AM CDT cerebrovascular system procedure are in CO2, GLUCOSE, BUN, the resul ts CREATININE, CA) section. HB ABO GROUPING Routine 11/21/2019 8:43 Results for this AM CDT procedure are i n the results section. documented in this encounter Results CBC WITH DIFF (11/22/2019 11:36 AM CDT) Pathologist Sig nature WBC 11.83 (H) 4.30 - 11.10 [facility] 10*3/L [facility] RBC 3.04 (L) 3.93 - 5.25 [facility] 10*6/L [facility] HGB 9.0 (L) 11.6 - 15.0 [facility] g/dL [facility] HCT 29.2 (L) 35.7 - 45.2 % [facility] MCV 96.1 (H) 80.6 - 95.5 fL [facility] MCH 29.6 25.9 - 32.8 pg [facility] MCHC 30.8 (L) 31.6 - 35.1 [facility] g/dL [facility] RDW-SD 53.2 (H) 39.0 - 49.9 fL [facility] RDW-CV 15.1 12.0 - 15.5 % [facility] PLT 207 166 - 358 [facility] 10*3/L [facility] MPV 11.2 9.5 - 12.9 fL [facility] NRBC/100 WBC 0.0 0.0 - 10.0 /100 [facility] WBCs [facility] NRBC x10^3 <0.01 10*3/L [facility] GRAN MAT (NEUT) % 76.4 % [facility] IMM GRAN % 0.60 % [facility] LYMPH % 13.1 % [facility] MONO % 7.3 % [facility] EOS % 2.3 % [facility] BASO % 0.3 % [facility] GRAN MAT x10^3(ANC) 9.05 (H) 1.88 - 7.09 [facility] 10*3/uL [facility] IMM GRAN x10^3 0.07 (H) 0.00 - 0.06 [facility] 10*3/uL [facility] LYMPH x10^3 1.55 1.32 - 3.29 [facility] 10*3/uL [facility] MONO x10^3 0.86 0.33 - 0.92 [facility] 10*3/uL [facility] EOS x10^3 0.27 0.03 - 0.39 [facility] 10*3/uL [facility] BASO x10^3 0.03 0.01 - 0.07 [facility] 10*3/uL [facility] Specimen Blood - ARTERIAL Performing Organization Address City/[facility]/Zipcode Phone Number [facility] CLIA: [id number] [place], [place] [address] [facility] [address] MAGNESIUM (11/22/2019 4:28 AM CDT) [facility] MAGNESIUM 1.9 1.7 - 2.4 mg/dL [facility]ORATORY [facility] Specimen Blood - ARTERIAL Performing Organization Address City/[facility]/Zipcode Phone Number [facility] CLIA: [id number] [place] [address] [facility] [address] BASIC METABOLIC PANEL (NA, K, CL, CO2, GLUCOSE, BUN, CREATININE, CA) (11/22/2019 4:28 AM CDT) NA 139 135 - 145 [facility] mmol/L [facility] K 5.1 (H) 3.5 - 5.0 [facility] mmol/L [facility] CL 115 (H) 98 - 108 mmol/L [facility] CO2 TOTAL 21 (L) 23 - 31 mmol/L [facility] AGAP 3 2 - 16 [facility] BUN 35 (H) 7 - 23 mg/dL [facility] GLUCOSE 128 (H) 70 - 110 mg/dL [facility] CREATININE 1.43 (H) 0.50 - 1.04 [facility] mg/dL [facility] CALCIUM 8.5 (L) 8.6 - 10.6 [facility] mg/dL [facility] eGFR Calculation 35.6 mL/min/1.73m2 [facility] (Non- [facility]) [place] eGFR Calculation 43.1 mL/min/1.73m2 [facility] () [facility] Specimen Blood - ARTERIAL Narrative Performed At Association of Glomerular Filtration Rate [facility] (GFR) and Staging of Kidney Disease* CAMPUS + + --+ + | GFR (mL/min/1.73 m2) | With Kidney Damage | Without Kidney Damage + + --+ + | >90 | Stage one | Normal + + --+ + | 60-89 | Stage two | Decreased GFR + + --+ + | 30-59 | Stage three | Stage three + + --+ + | 15-29 | Stage four | Stage four + + --+ + | <15 (or dialysis) | Stage five | Stage five + + --+ + *Each stage assumes the associated GFR level has been in effect for at least three months. Stages 1 to 5, with or without kidney disease, indicate chronic kidney disease. Notes: Determination of stages one and two (with eGFR >59mL/min/1.73 m2) requires estimation of kidney damage for at least three months as defined by structural or functional abnormalities of the kidney, manifested by either: Pathological abnormalities or Markers of kidney damage (including abnormalities in the composition of the blood or urine or abnormalities in imaging tests). Performing Organization Address City/State/Zipcode Phone Number [facility] CLIA: [id number] [place] [address] [facility] [address] CBC with Differential (11/22/2019 4:28 AM CDT) [facility] WBC 11.25 (H) 4.30 - 11.10 [facility] 10*3/L [facility] RBC 3.15 (L) 3.93 - 5.25 [facility] 10*6/L [facility] HGB 9.1 (L) 11.6 - 15.0 [facility] g/dL [facility] HCT 29.8 (L) 35.7 - 45.2 % [facility] MCV 94.6 80.6 - 95.5 fL [facility] MCH 28.9 25.9 - 32.8 pg [facility] MCHC 30.5 (L) 31.6 - 35.1 [facility] g/dL [facility] RDW-SD 52.1 (H) 39.0 - 49.9 fL [facility] RDW-CV 15.1 12.0 - 15.5 % [facility] PLT 196 166 - 358 [facility] 10*3/L [facility] MPV 10.6 9.5 - 12.9 fL [facility] NRBC/100 WBC 0.0 0.0 - 10.0 /100 [facility] WBCs [facility] NRBC x10^3 <0.01 10*3/L [facility] GRAN MAT (NEUT) % 71.4 % [facility] IMM GRAN % 0.40 % [facility] LYMPH % 15.6 % [facility] MONO % 8.4 % [facility] EOS % 3.8 % [facility] BASO % 0.4 % [facility] GRAN MAT x10^3(ANC) 8.04 (H) 1.88 - 7.09 [facility] 10*3/uL [facility] IMM GRAN x10^3 0.04 0.00 - 0.06 [facility] 10*3/uL [facility] LYMPH x10^3 1.75 1.32 - 3.29 [facility] 10*3/uL [facility] MONO x10^3 0.95 (H) 0.33 - 0.92 [facility] 10*3/uL [facility] EOS x10^3 0.43 (H) 0.03 - 0.39 [facility] 10*3/uL [facility] BASO x10^3 0.04 0.01 - 0.07 [facility] 10*3/uL [facility] Specimen Blood - ARTERIAL Performing Organization Address City/State/Zipcode Phone Number [facility] CLIA: [id number] [place] [address] [facility] [address] IR EMBOLIZATION CENTRAL NERVOUS SYSTEM (SECURITY SUPPORT ANALYST) PERMANENT (11/21/2019 1:16 PM CDT) Specimen Impressions Performed At Impression: PACS/VR/DOSE 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 Narrative Performed At Examination: stent-assisted coiling of a basilar apex aneurysm PACS/VR/DOSE Operators: Dr. Indra Oconnor Indication: Large basilar apex aneurysm. Consent: The patient was given a full and complet e explanation of the procedure including the risks, benefits, and possible complicati ons which include but are not limited to vessel injury, vessel rupture, stro ke, infection, coma and , and may include additional procedures. Frankie keenan understood and wished to proceed. Anesthesia: General. Procedure: The patient was brought into the biplane [facility] on angiography suite and placed supine on the table. After prepping and d raping both femoral regions and the right radial artery in t he usual sterile fashion, a 21-gauge TekLinks micro puncture needle was used to punctu re the radial artery and after brisk return of arterial blood, a 0.018 in ch wire was threaded via the needle, after the 6-Sudanese vascular sheath was then advanced over the wire and connected to a pressurized arterial saline bag infusing 4 units heparin/ML. A 6-Sudanese benchmark catheter, was then advanced over a glide wire to the subclavian artery followed by biplane im age acquisition of the same: Patient is on aspirin and brilinta. She was heparinize d with 3000 units of heparin an ACT of close to 250. Vessels catheterized: - Right subclavian - Right vertebral Vessels imaged: Right subclavian artery, cervical, obliq ue AP, lateral Right vertebral artery, intracranial, AP , lateral, and oblique 3-D rotational angiography acquisitions were performed through the right vertebral artery. These 3-D acquisitions were then transferred, reconstructed and analyzed on [facility] computer workstation. Intervention 1. Placement of intracranial stent in th e left LACE ROLLER and basilar artery. 2. 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 Following the diagnostic angiography and 3-D rotational angiography, the guide catheter was left in the subclavia n artery due to significant stenosis at the vertebral artery origin. A SL 10 micro catheter was used to traverse the lesion and navigated into the left LACE ROLLER. A Neuroform stent was deployed from the left LACE ROLLER into the basilar artery. Th e measurement of the stent was 3 mm x 24 mm. Next the same micro-catheter w as used to traverse the stent into the aneurysm. 3 coils were used to embo lize the aneurysm. After each coil, a control run was perfo rmed to ensure there is no compromise of the LACE ROLLER and the basilar ar sary. Final run showed good obliteration of the basilar apex aneurysm with no thro mbus in any vessels visualized. The catheter was removed from the [facility] and images were reviewed. The right radial artery arterial sheath was then remov ed and hemostasis was achieved by TR band. Patient tolerated the procedure well wit hout complications. Findings were discussed with the patient , his family and the referring physicians. Findings: - Right subclavian artery: There is a 90% critical stenosis at the vertebral artery origin. - Right Vertebral Artery: Atherosclerosis in the cervical segment. Maximal steno sis around 60% with no flow limitation. Intracranial images showed a large basilar apex aneurysm which measures 6 mm in height 8 millimeter in width and 6 mm in the neck. -Right vertebral artery after placement of the neural amount of a stent. The stent is well-positioned from the basilar artery t o left LACE ROLLER. There is no stenosis or thrombus seen. It bridges the neck of the aneurysm well. Right vertebral artery control run 1: Th ere is no encroachment of the basilar apex. The coil was within the co nfines of the aneurysm. Right vertebral artery control run 2: Th ere is no encroachment of the basilar apex. The coil was within the co nfines of the aneurysm. Right vertebral artery control run 3: Th ere is no encroachment of the basilar apex. The coil was within the co nfines of the aneurysm. There is adequate occlusion of the aneurysm. Procedure Note [facility], Radiant Results Inft User - 2019 2:52 PM CDT Examination: stent-assisted coiling of a basilar apex aneurysm Operators: Dr. Indra Oconnor Indication: Large basilar apex aneurysm. Consent: The patient was given a full and complet e explanation of the procedure including the risks, benefits, and possi ble complications which include but are not limited to vessel injury, vessel rupture, stroke, infection, coma and , and may include additional pr ocedures. Patient understood and wished to proceed. Anesthesia: General. Procedure: The patient was brought into the biplane high resolution angiography suite and placed supine on the table. After p repping and draping both femoral regions and the right radial artery in t he usual sterile fashion, a 21-gauge TekLinks micro puncture needle was used to puncture the radial artery and after brisk return of arterial bloo d, a 0.018 inch wire was threaded via the needle, after the 6-Sudanese vascu lar sheath was then advanced over the wire and connected to a pressurized arterial saline bag infusing 4 units heparin/ML. A 6-Sudanese benchmark catheter, was then advanced over a glide wire to the subclavian artery followed by biplane im age acquisition of the same: Patient is on aspirin and brilinta. She was heparinized with 3000 units of heparin an ACT of close to 250. Vessels catheterized: - Right subclavian - Right vertebral Vessels imaged: Right subclavian artery, cervical, obliq ue AP, lateral Right vertebral artery, intracranial, AP , lateral, and oblique 3-D rotational angiography acquisitions were performed through the right vertebral artery. These 3-D acquisitions were then transferred, reconstructed and analyzed on [employer] computer workstation. Intervention 1. Placement of intracranial stent in th e left LACE ROLLER and basilar artery. 2. 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 Following the diagnostic angiography and 3-D rotational angiography, the guide catheter was left in the subclavia n artery due to significant stenosis at the vertebral artery origin. A SL 10 microcatheter was used to traverse the lesion and navigated into t he left LACE ROLLER. A Neuroform stent was deployed from the left LACE ROLLER into the basi lar artery. The measurement of the stent was 3 mm x 24 mm. Next the same mi crotch piece baster-catheter was used to traverse the stent into the aneurysm. 3 coils wer e used to embolize the aneurysm. After each coil, a control run was perfo rmed to ensure there is no compromise of the LACE ROLLER and the basilar ar sary. Final run showed good obliteration of the basilar apex aneurys m with no thrombus in any vessels visualized. The catheter was removed from the patien t and images were reviewed. The right radial artery arterial sheath was then removed and hemostasis was achieved by TR band. Patient tolerated the procedure well wit hout complications. Findings were discussed with the patient , his family and the referring physicians. Findings: - Right subclavian artery: There is a 90% critical stenosis at the vertebral artery origin. - Right Vertebral Artery: Atherosclerosis in the cervical segment. Maximal stenosis around 60% with no flow limitation. Intracranial images showed a large basilar apex aneurysm which measures 6 mm in height 8 millimeter in width and 6 mm in the neck. -Right vertebral artery after placement of the neural amount of a stent. The stent is well-positioned from the ba silar artery to left LACE ROLLER. There is no stenosis or thrombus seen. It bridges the neck of the aneurysm well. Right vertebral artery control run 1: Th ere is no encroachment of the basilar apex. The coil was within the co nfines of the aneurysm. Right vertebral artery control run 2: Th ere is no encroachment of the basilar apex. The coil was within the co nfines of the aneurysm. Right vertebral artery control run 3: Th ere is no encroachment of the basilar apex. The coil was within the co nfines of the aneurysm. There is adequate occlusion of the aneurysm. IMPRESSION Impression: Successful stent-assisted coiling of a l arge basilar apex aneurysm. Performing Organization Address City/State/Zipcode Phone Number PACS/VR/DOSE POCT ACT LOW RANGE (11/21/2019 10:37 AM CDT) [employer] Sig nature ACTLR 197 (H) 89 - 169 Seconds [facility] Specimen Blood Performing Organization Address City/State/Zipcode Phone Number [facility] CLIA: [id number] [place] [address] [place] [address] PROTHROMBIN TIME / INR (11/21/2019 9:15 AM CDT) PROTIME PATIENT 10.4 10.1 - 12.6 [facility] Seconds [facility] INR 0.9Comment: Normal [facility] INR <1.1; Warfarin [facility] Therapeutic range [facility] 2.0 to 3.0 or 2.5 to 3.5, depending upon the indications. Specimen Blood Performing Organization Address City/State/Zipcode Phone Number [facility] CLIA: [id number] [place] [address] [facility] [address] CBC WITH DIFF (11/21/2019 9:15 AM CDT) Pathologist Sig nature WBC 11.49 (H) 4.30 - 11.10 [facility] 10*3/L [facility] RBC 3.69 (L) 3.93 - 5.25 [facility] 10*6/L [facility] HGB 11.0 (L) 11.6 - 15.0 [facility] g/dL [facility] HCT 34.6 (L) 35.7 - 45.2 % [facility] MCV 93.8 80.6 - 95.5 fL [facility] MCH 29.8 25.9 - 32.8 pg [facility] MCHC 31.8 31.6 - 35.1 [facility] g/dL [facility] RDW-SD 51.1 (H) 39.0 - 49.9 fL [facility] RDW-CV 14.8 12.0 - 15.5 % [facility] PLT 261 166 - 358 [facility] 10*3/L [facility] MPV 10.8 9.5 - 12.9 fL [facility] NRBC/100 WBC 0.0 0.0 - 10.0 /100 [facility] WBCs [facility] NRBC x10^3 <0.01 10*3/L [facility] GRAN MAT (NEUT) % 69.7 % [facility] IMM GRAN % 0.90 % [facility] LYMPH % 15.9 % [facility] MONO % 9.4 % [facility] EOS % 3.7 % [facility] BASO % 0.4 % [facility] GRAN MAT x10^3(ANC) 8.00 (H) 1.88 - 7.09 [facility] 10*3/uL [facility] IMM GRAN x10^3 0.10 (H) 0.00 - 0.06 [facility] 10*3/uL [facility] LYMPH x10^3 1.83 1.32 - 3.29 [facility] 10*3/uL [facility] MONO x10^3 1.08 (H) 0.33 - 0.92 [facility] 10*3/uL [facility] EOS x10^3 0.43 (H) 0.03 - 0.39 [facility] 10*3/uL [facility] BASO x10^3 0.05 0.01 - 0.07 [facility] 10*3/uL [facility] Specimen Blood Performing Organization Address City/State/Zipcode Phone Number [facility] CLIA: [id number] [place] [address] [facility] [address] BASIC METABOLIC PANEL (NA, K, CL, CO2, GLUCOSE, BUN, CREATININE, CA) (11/21/2019 9:14 AM CDT) NA 140 135 - 145 [facility] mmol/L [facility] K 5.3 (H)Comment: 3.5 - 5.0 [facility] Slight hemolysis mmol/L [facility] CL 112 (H) 98 - 108 [facility] mmol/L [facility] CO2 TOTAL 21 (L) 23 - 31 [facility] mmol/L [facility] AGAP 7 2 - 16 [facility] BUN 43 (H)Comment: 7 - 23 mg/dL [facility] Slight hemolysis [facility] GLUCOSE 135 (H) 70 - 110 [facility] mg/dL [facility] CREATININE 1.40 (H) 0.50 - 1.04 [facility] mg/dL [facility] CALCIUM 9.5 8.6 - 10.6 [facility] mg/dL [facility] eGFR Calculation 36.5 mL/min/1.73m2 [facility] (Non- [facility] [place]) [facility] eGFR Calculation 44.2 mL/min/1.73m2 [facility] () [facility] Specimen Blood Narrative Performed At [facility] (GFR) and Staging of Kidney Disease* CAMPUS + + --+ + | GFR (mL/min/1.73 m2) | With Kidney Damage | Without Kidney Damage + + --+ + | >90 | Stage one | Normal + + --+ + | 60-89 | Stage two | Decreased GFR + + --+ + | 30-59 | Stage three | Stage three + + --+ + | 15-29 | Stage four | Stage four + + --+ + | <15 (or dialysis) | Stage five | Stage five + + --+ + *Each stage assumes the associated GFR level has been in effect for at least three months. Stages 1 to 5, with or without kidney disease, indicate chronic kidney disease. Notes: Determination of stages one and two (with eGFR >59mL/min/1.73 m2) requires estimation of kidney damage for at least three months as defined by structural or functional abnormalities of the kidney, manifested by either: Pathological abnormalities or Markers of kidney damage (including abnormalities in the composition of the blood or urine or abnormalities in imaging tests). Performing Organization Address City/[facility]/Zipcode Phone Number [facility] CLIA: [id number] [place], [place] [address] SERVICES-[address] Type and Screen - ONCE Routine (11/21/2019 8:43 AM CDT) Pathologist Sig nature ABO & RH A Positive LAB Comment: Performed at [facility] Laboratory Services - [facility] Blood Bank [address] [place] [id number] Toll Free: [phone] CLIA No. [id number] IAT Negative LAB Comment: Performed at [facility] Laboratory Services - [facility] Blood Bank [address] [place] [phone] Toll Free: [phone] CLIA No. 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 Post-op pain Other acute postoperative pain documented in this encounter Administered Medications Medication Order MAR Action Action Date Dose Rate Site acetaminophen (TYLENOL) tablet Given 11/22/2019 5:17 PM CDT 650 mg 650 mg 650 mg, Oral, Q6HPRN, Starting Wed11/21/19 at 1416, Until Discontinued, Routine, Pain (scale 1-3) aspirin chewable tablet 81 mg Given 11/23/2019 8:52 AM CDT 81 mg 81 mg, Oral, DAILY, First dose on Wed11/22/19 at 0900, Until Discontinued, Routine Given 11/22/2019 8:53 AM CDT 81 mg cloNIDine (CATAPRES) tablet 0.3 mg Given 11/23/2019 2:00 PM CDT 0.3 mg 0.3 mg, Oral, TID, First dose (after last modification) on Wed11/21/19 at 1430, Until Discontinued, Routine Given 11/23/2019 8:52 AM CDT 0.3 mg Given 11/22/2019 8:58 PM CDT 0.3 mg doxepin (SINEQUAN) capsule 25 mg Given 11/22/2019 8:58 PM CDT 25 mg 25 mg, Oral, QHS, First dose on Wed11/21/19 at 2100, Until Discontinued, Routine Given 11/21/2019 8:23 PM CDT 25 mg gabapentin (NEURONTIN) capsule 300 mg Given 11/23/2019 2:00 PM CDT 300 mg 300 mg, Oral, TID, First dose on Wed11/21/19 at 2000, Until Discontinued, Routine Given 11/23/2019 8:52 AM CDT 300 mg Given 11/22/2019 8:58 PM CDT 300 mg hydrALAZINE (APRESOLINE) tablet 100 mg Given 11/23/2019 8:52 AM CDT 100 mg 100 mg, Oral, BID, First dose on Wed11/21/19 at 2000, Until Discontinued, Routine Given 11/22/2019 8:58 PM CDT 100 mg Given 11/22/2019 8:53 AM CDT 100 mg levothyroxine (SYNTHROID) tablet 50 mcg Given 11/23/2019 6:21 AM CDT 50 mcg 50 mcg, Oral, QAM-0600, First dose on Wed11/22/19 at 0600, Until Discontinued, Routine Given 11/22/2019 5:44 AM CDT 50 mcg niCARdipine (CARDENE I.V.) 40 mg Restarted 11/22/2019 9:00 AM C DT 5 mg/hr 25 mL/hr in 200 mL 0.83% Sodium Chloride (RTU) infusion 2.5-15 mg/hr (12.5-75 mL/hr), IV Infusion, TITRATE, SBP Goal < 180 mmHg, 140-170, Starting Wed11/21/19 at 1509, Initiate infusion at 2.5 mg/hr. Titrate by 2.5 mg/hr every 5 minutes to 15 minutes as needed to achieve and maintain goal blood pressure. Maximum dose = 15 mg/hr. If goal not maintained at maximum allowed dose, contact prescriber., New Bag 11/21/2019 8:23 PM CDT 5 mg/hr 25 mL/hr New Bag 11/21/2019 7:30 PM CDT 2.5 mg/hr 12.5 mL/hr rivaroxaban (XARELTO) tablet 20 mg Given 11/22/2019 8:53 AM CDT 20 mg 20 mg, Oral, DAILY, First dose on Wed11/22/19 at 0900, Until Discontinued, Routine ticagrelor (BRILINTA) tablet 90 mg Given 11/23/2019 8:51 AM CDT 90 mg 90 mg, Oral, BID, First dose on Wed11/22/19 at 0800, Until Discontinued, Routine Given 11/22/2019 8:58 PM CDT 90 mg Given 11/22/2019 8:53 AM CDT 90 mg Medication Order MAR Action Action Date Dose Rate Site aspirin tablet 650 mg Given 11/21/2019 8:51 AM CDT 650 mg 650 mg, Oral, ONCE, 1 dose, Wed11/21/19 at 0945, Routine iodixanol (VISIPAQUE 320-100 mL) injection Given 11/21/2019 2:30 PM CDT 200 mL 100 mL 100 mL, Injection, ONCE, 1 dose, Wed11/21/19 at 1430, Routine lidocaine 1% (PF) (XYLOCAINE) injection Given 11/21/2019 10:30 AM CDT 10 mL PRN, Starting Wed11/21/19 at 1030, Until Wed11/21/19 at 1030, Routine pneumococcal vac polyvalent Given 11/23/2019 12:49 PM CDT 0.5 mL Left Arm (PNEUMOVAX-23) injection 0.5 mL 0.5 mL, Intramuscular, ONCE, 1 dose, Jyoti 11/23/19 at 1245, Routine documented in this encounter Insurance Payer Benefit Plan / Subscriber ID Effective Dates Phone Addre ss Type Group HUMANA - HUMANA [id number] 2017-[facility] Adv MANAGED MEDICARE ERS t PPO MEDICARE [phone] [id number] ([place]) [place] [address] documented as of this encounter Advance Directives Type Date Recorded Patient Taxi Proprietor Explanati on Power of Partition Setter 11/21/2019 1:38 PM Power of Partition Setter 11/21/2019 1:40 PM
--- OUTSIDE RECORDS SUMMARY | 2020-02-01 08:13 | XMS REPORT | Summary of Care ---
:1940 Author Organization [facility] Address [address] [place] [address] Care Team Providers Name Role Phone Selene Primary Care Provider Reason for Referral Radiology Services (MANPREET) Status Reason Specialty Diagnoses / Procedures Referred By Gurdeep bazzi To Contact Contact Closed Diagnostic Diagnoses Congenital anomaly of cerebrovascular system [place] Radiology Procedures IR EMBOLIZATION CENTRAL NERVOUS SYSTEM (SNIPPER) PERMANENT IR ANGIOGRAM CEREBRAL Patricia Heck, MANAGER PHARMACEUTICAL [address] [place] [address] Reason for Visit Auth/Cert Status Reason Specialty Diagnoses / Procedures Referred By Gurdeep bazzi To Contact Contact Surgery Diagnoses Congenital anomaly of cerebrovascular system Clc 4c Procedures IR EMBOLIZATION CENTRAL NERVOUS SYSTEM (SNIPPER) PERMANENT [address] [place] [address] Encounter Details Date Type Department Care Team Description 11/21/2019 - [facility] Chyna Álvarez MD [address] [place] [address] S/P aneurysm repair 11/23/2019 Encounter Medicine/Surgery Benjamin Nina MD [address] [place] [phone] CLC 6A Kathleen Campbell RN [address] [place] [address] [address] [place] [address] [place] [address] Allergies Active Allergy Reactions Severity [...] Dispensed Refills Start Date End Date Status levothyroxine Take 50 mcg by 0 A ctive (SYNTHROID) 50 mcg mouth daily. tablet rivaroxaban Take 20 mg by 0 Acti ve (XARELTO) 20 mg mouth daily. tablet hydralAZINE Take 100 mg by 0 Act sushil (APRESOLINE) 100 mg mouth 2 (two) tablet times daily. allopurinol 300 mg Take 300 mg by 0 Active tablet mouth daily. cloniDINE 0.2 mg Take 0.3 mg by 0 Active tablet mouth 3 (three) times daily. colchicine 0.6 mg Take 0.6 mg by 0 Active tablet mouth as needed. doxepin 25 mg Take 25 mg by 0 Ac tive capsule mouth at bedtime. gabapentin 300 mg Take 300 mg by 0 Active capsule mouth 3 (three) times daily. albuterol 90 Inhale 2 Puffs 0 Ac tive mcg/actuation every 6 (six) inhaler hours as needed for Wheezing or Shortness of Breath. torsemide 10 mg Take 10 mg by 0 Active tablet mouth daily. ticagrelor Take 90 mg by 0 Activ e (BRILINTA) 90 mg mouth 2 (two) tablet times daily. aspirin 81 mg Take 1 tablet 60 tablet 0 11/23/2019 A ctive chewable by mouth daily. tabletIndications: S/P aneurysm repair Nebivolol Take 1 tablet 0 Discon tinued (BYSTOLIC) 20 mg by mouth daily. 0 tablet documented as of this encounter (statuses as [...] 2.4 mg/dL Ir Embolization Central Nervous System (senior energy trader) Permanent Result Date: 11/21/2019 Impression: Successful stent-assisted [...] deficit on exam. Resume meds PT/OT Xarelto ITEMS FOR FOLLOW UP PROVIDER: (including pending [...] FOR READMISSION: No Please call or text [phone] to contact Ortega Álvarez MD with any questions. - documented in this encounter Discharge Instructions Madelin Cordova - 11/22/2019 2:07 PM CDTThe neurology clinic With Dr. Indra Oconnor.will contact you for your follow up appointment. AttachmentsThe following attachments cannot be sent through Care Everywhere. Aspirin, ASA oral tablets (Brazilian)Blood Thinners (Anticoagulants), Using (Brazilian)Brain Aneurysm, Surgery for a (Brazilian)Brain Aneurysm, Surgery: Recovery at Home (Brazilian)Brain Aneurysm, What Is a (Brazilian)documented in this encounter Progress Notes Dorothy Toledo RN - 11/23/2019 1:23 PM CDT Care Management Discharge Disposition Note (DCDN) 5-2-1 Interventions: Disease specific education;Clear discharge plan;Intensive medication reconciliation/management;Follow-up phone calls;Follow-up appointments 5-2-1 Providers: Physician;Php Software Engineer/Grader Green [employer];Nurse 5-2-1 Patient Capacity Improvements: Other Discharge Plan [...] Other living arrangement: Address of living arrangement: [address] [place] [address] Funding Resources: Medicare Replacement Nursing informed of discharge plan: Name of RN informed: Expected discharge date: 11/23/2019 Time: Additional Information: BELKYS/GENO Name & Contact number: Dorothy Toledo RN Ph. [phone] The following information has been provided to [...] Ortega Álvarez MD, 300 mg at 11/23/19 0852 hydrALAZINE (APRESOLINE) tablet 100 mg, 100 mg, [...] 0.03 0.01 - 0.07 10*3/uL @ASSESSMENTPLANBEGIN@ Bharati Peg Anisha is a 79 year old female admitted with S/p elective brain aneurysm repair Principal Problem: S/P aneurysm repair Active Problems: Post-op pain ? Appreciated input from neurosurgery ? Continuing on aspirin and Brilinta ? Encourage oral intake and ambulation ? Patient is awaiting to be picked up by the daughter this morning ? 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] Readmission Questions: Was patient discharged from any acute care hospital within the last 30 days: No Social Functional Assessment: Primary language spoken/preferred: Brazilian Mental Status: Alert & Oriented to Person,Place & Time Information given by: Other Patient's support system: Spouse;Child Name and number of support system: YSABEL GARCIA [phone] ALYSSA BRAVO SPOUSE [phone] Primary Automation Control Integrator: Self MPOA: Same as support system Address of living arrangement : [address] [place] [address] Persons living in home: Self;Spouse;Child Barriers to [...] Left 12/09/2017 Surgeon: Benjamin Rodriguez MD; Location: [facility] OR [facility] PHACOEMULSIFICATION OF CATARACT WITH INTRAOCULAR LENS IMPLANT Right 12/23/2017 Surgeon: Benjamin Rodriguez MD; Location: [facility] OR [facility] THYROIDECTOMY Questionable - was told that her thyroid was removed at age 9 or 10 TOTAL KNEE ARTHROPLASTY Left 04/01/2016 Surgeon: Flex Marrero MD; Location: [facility] OR Location No family history [...] file Gets together: Not on file Attends mosque service: Not on file Active member of [...] (!) 145/47 Pulse: 78 54 54 Resp: 20 15 13 Temp: 36.4 C (97.5 F) TempSrc: Temporal [...] year old Sex: female Referring Physician: Parrish Teqwimuah, DO Date of Referral: 11/23/2019 Reason for [...] Pertinent Imaging: Ir Embolization Central Nervous System (senior energy trader) Permanent Result Date: 11/21/2019 Impression: 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 Most recent chest imaging from outside facility was completed on 05/25/19 and showed clear lungs. Previous SKI PATROL DIRECTOR Services/Swallow History: Seen by SKI PATROL DIRECTOR at [facility] at [...] Left 12/09/2017 Surgeon: Benjamin Rodriguez MD; Location: [facility] OR Location PHACOEMULSIFICATION OF CATARACT WITH INTRAOCULAR LENS IMPLANT Right 12/23/2017 Surgeon: Benjamin Rodriguez MD; Location: [facility] OR Location THYROIDECTOMY Questionable - was told that her thyroid was removed at age 9 or 10 TOTAL KNEE ARTHROPLASTY Left 04/01/2016 Surgeon: Flex Marrero MD; Location: [facility] General Behavior: Alert and Cooperative Hearing: Within [...] Provided verbally. Discussed findings of evaluation, recommendationsand SKI PATROL DIRECTOR plan of care. Discussed recommendation/option for instrumental [...] MANPREET, as her sister is visiting from [place] and waiting to pick her up. Pt was informed that MBS could be completed as an outpatientprocedure and patient stated she would like that. Patient/Family goal: to go home MANPREET ASSESSMENT/IMPRESSIONS: Bhaarti Ruvalcaba Means presents with suspected dysphagia, which [...] barium swallow study 3. No further acute SKI PATROL DIRECTOR services indicated at this time, so service is signing off. Please re-consult if indicated. Thank you. Marisabel Calvert M.S., [facility]SKI PATROL DIRECTOR Speech-Language Pathologist Pager: [phone] Office: [phone] signed by Marisabel Calvert, SKI PATROL DIRECTOR at 11/23/2019 1:36 PM Tonya Hale, PT - 11/22/2019 2:33 PM CDTAssociated Order(s): [...] disease DVT of leg (deep venous thrombosis) 2013 Left leg, taking zarelto Dyslipidemia Gout Hyperlipidemia Hypertension Hypothyroidism Post-operative nausea and vomiting RBBB (right bundle branch block) PSH: Past Surgical History: Procedure Laterality Date APPENDECTOMY ARTHROSCOPIC SHOULDER ROTATOR CUFF REPAIR Left CHOLECYSTECTOMY KNEE ARTHROSCOPY Bilateral OPEN CARPAL TUNNEL RELEASE Bilateral PHACOEMULSIFICATION OF CATARACT WITH INTRAOCULAR LENS IMPLANT Left 12/09/2017 Surgeon: Benjamin Rodriguez MD; Location: [facility] OR Location PHACOEMULSIFICATION OF CATARACT WITH INTRAOCULAR LENS IMPLANT Right 12/23/2017 Surgeon: Benjamin Rodriguez MD; Location: [facility] OR Location THYROIDECTOMY Questionable - was told that her thyroid was removed at age 9 or 10 TOTAL KNEE ARTHROPLASTY Left 04/01/2016 Surgeon: Flex Marrero MD; Location: [facility] OR [facility] Prior Living Situation: lives alone but her [...] removed) - nurse informed COMMUNICATION Primary Language: Brazilian Able to Verbalize needs: Yes Vision:glasses Hearing:good; [...] in Minutes: 55 min Tonya Carlos, PT [phone] pgr documented in this encounter Nursing Notes Richa Gutiérrez RN - 11/23/2019 6:31 AM CDTPatient was given her AM medication and had noticeable coughing after drinking her fluids. Primary RN mentioned to the patient that a follow up would need to be made to [facility]/Hospitalist and that they may want her to be NPO until further evaluation can be made. Patient shared that coughing happens sometimes while she is eating and/or drinking and that she was 'told that she can go home today and wantsto go home today'. RN notified [facility]/Hospitalist of occurrence and educated patient on risk [...] - 11/21/2019 9:40 AM CDTPt brought to [facility] and transferred to procedure table in supine [...] Hemodynamically stable Outcome: Adequate for discharge are Plan - Dustin Gu RN - 11/23/2019 9:50 [...] Outcome: Progressing as expected are Plan - Denton Reeves RN - 11/22/2019 11:19 [...] Outcome: Progressing as expected are Domi - Ami Davey RN - 11/21/2019 10:42 [...] patient. (Neurosurgery). Pt alert, oriented and COHEN /. Pupils equal and reactive. R radial TR [...] Team Description 12/25/2019 Office Visit Neurological Surgery Indra Oconnor MD [address] [place] [address] [phone] Name Type Priority Associated Diagnoses Order [...] of this encounter Implants Implanted Type Area Colorist Dyer Device Shelf Model / Serial Identifier Expiration / Lot Date [employer] Cement W/ Gent CEMENT Left: Knee Vinny -1113-140-01 / Implanted: Qty: 1 on 04/01/2016 by Flex Penaloza MD at [facility] 8 [id number] / [id number] [employer]ement W/ Gent CEMENT Left: Knee Vinny -1113-140-01 / Implanted: Qty: 1 on 04/01/2016 by Flex Penaloza MD at [facility] [id number] / [id number] Ps Open Box Femoral-Left Femur Left: Knee Biomet 11/0 06/2025 [id number] / Implanted: Qty: 1 on 04/01/2016 by Flex Penaloza MD at [facility] J [id number] / [id number] Fixed Cruciate Tibial Plate KNEE Left: Knee Biomet 0 09/18/2025 [id number] / Implanted: Qty: 1 on 04/01/2016 by Flex Penaloza MD at [facility] J [id number] / [id number] Ps Tibial Bearing KNEE Left: Knee Biomet 06/25/2020 [id number] / Implanted: Qty: 1 on 04/01/2016 by Flex Penaloza MD at [facility] [id number] / [id number] Lens, Raf #Sn60wf - [id number] LENS Left: Eye Raf 06/09/2022 [id number] / Implanted: Qty: 1 on 12/09/2017 by Benjamin Rodriguez MD at [facility] 2 [id number] / [id number] Lens, Raf #Sn60wf - [id number] LENS Right: Eye Raf 08/09/2022 [id number] / Implanted: Qty: 1 on 12/23/2017 by Benjamin Rodriguez MD at [facility] 5 [id number] / [id number] Neuroform Clancy STENT N/A: Fransisca 08/17/2023 UZA [id number] / Implanted: Qty: 1 on 11/21/2019 by Indra Oconnor MD at [facility] ([facility]) Cranium [id number] / [id number] Adc Patella 28 X 8 Mm - [id number] Left: Knee Biomet 11/01/2020 [id number] / Implanted: Qty: 1 on 04/01/2016 by Flex Penaloza MD at [facility] [id number] / [id number] Target 360 Ultra Detachable Coil Cranium Rio 04/29/2021 [id number] / Implanted: Qty: 1 on 11/21/2019 by Indra Oconnor MD at [facility] ([facility]) [id number] / [id number] Target 360 Ultra Detachable Coil Cranium Rio 05/03/2021 [id number] / Implanted: Qty: 1 on 11/21/2019 by Indra Oconnor MD at [facility] ([facility]) [id number] / [id number] documented as of this encounter Procedures Procedure [...] cerebrovascular system pr ocedure are in SYSTEM (SNIPPER) the results PERMANENT section. POCT ACT LOW [...] (H) 4.30 - 11.10 [facility] 10*3/L [facility] RBC 3.04 (L) 3.93 - 5.25 [facility] 10*6/L [facility] HGB 9.0 (L) 11.6 - 15.0 [facility] g/dL [facility] HCT 29.2 (L) 35.7 - 45.2 % [facility] MCV 96.1 (H) 80.6 - 95.5 fL [facility] MCH 29.6 25.9 - 32.8 pg [facility] MCHC 30.8 (L) 31.6 - 35.1 [facility] g/dL [facility] RDW-SD 53.2 (H) 39.0 - 49.9 fL [facility] RDW-CV 15.1 12.0 - 15.5 % [facility] PLT 207 166 - 358 [facility] 10*3/L [facility] MPV 11.2 9.5 - 12.9 fL [facility] NRBC/100 WBC 0.0 0.0 - 10.0 /100 [facility] WBCs [facility] NRBC x10^3 <0.01 10*3/L [facility] GRAN MAT (NEUT) % 76.4 % [facility] IMM GRAN % 0.60 % [facility] LYMPH % 13.1 % [facility] MONO % 7.3 % [facility] EOS % 2.3 % [facility] BASO % 0.3 % [facility] GRAN MAT x10^3(ANC) 9.05 (H) 1.88 - 7.09 [facility] 10*3/uL [facility] IMM GRAN x10^3 0.07 (H) 0.00 - 0.06 [facility] 10*3/uL [facility] LYMPH x10^3 1.55 1.32 - 3.29 [facility] 10*3/uL [facility] MONO x10^3 0.86 0.33 - 0.92 [facility] 10*3/uL [facility] EOS x10^3 0.27 0.03 - 0.39 [facility] 10*3/uL [facility] BASO x10^3 0.03 0.01 - 0.07 [facility] 10*3/uL [facility] Specimen Blood - ARTERIAL Performing Organization Address City/[facility]/Zipcode Phone Number [facility] CLIA: [id number] [place] [address] [facility] [address] MAGNESIUM (11/22/2019 4:28 AM CDT) Pathologist Sig nature MAGNESIUM 1.9 1.7 - 2.4 mg/dL [facility] Specimen Blood - ARTERIAL Performing Organization Address City/[facility]/Zipcode Phone Number [facility] CLIA: [id number] [place] [address] [facility] [address] BASIC METABOLIC PANEL (NA, K, CL, CO2, GLUCOSE, BUN, CREATININE, CA) (11/22/2019 4:28 AM CDT) NA 139 135 - 145 [facility] mmol/L [facility] K 5.1 (H) 3.5 - 5.0 [facility] mmol/L [facility] CL 115 (H) 98 - 108 mmol/L [facility] CO2 TOTAL 21 (L) 23 - 31 mmol/L [facility] AGAP 3 2 - 16 [facility] BUN 35 (H) 7 - 23 mg/dL [facility] GLUCOSE 128 (H) 70 - 110 mg/dL [facility] CREATININE 1.43 (H) 0.50 - 1.04 [facility] mg/dL [facility] CALCIUM 8.5 (L) 8.6 - 10.6 [facility] mg/dL [facility] eGFR Calculation 35.6 mL/min/1.73m2 [facility] ([facility] [place]) [place] eGFR Calculation 43.1 mL/min/1.73m2 [facility] () [facility] Specimen Blood - ARTERIAL Narrative Performed At Association of Glomerular Filtration Rate [facility] (GFR) and Staging of Kidney Disease* CAMPUS [...] tests). Performing Organization Address City/State/Zipcode Phone Number [facility] CLIA: [id number] [place] [address] [facility] [address] CBC with Differential (11/22/2019 4:28 AM CDT) [facility] WBC 11.25 (H) 4.30 - 11.10 [facility] 10*3/L [facility] RBC 3.15 (L) 3.93 - 5.25 [facility] 10*6/L [facility] HGB 9.1 (L) 11.6 - 15.0 [facility] g/dL [facility] HCT 29.8 (L) 35.7 - 45.2 % [facility] MCV 94.6 80.6 - 95.5 fL [facility] MCH 28.9 25.9 - 32.8 pg [facility] MCHC 30.5 (L) 31.6 - 35.1 [facility] g/dL [facility] RDW-SD 52.1 (H) 39.0 - 49.9 fL [facility] RDW-CV 15.1 12.0 - 15.5 % [facility] PLT 196 166 - 358 [facility] 10*3/L [facility] MPV 10.6 9.5 - 12.9 fL [facility] NRBC/100 WBC 0.0 0.0 - 10.0 /100 [facility] WBCs [facility] NRBC x10^3 <0.01 10*3/L [facility] GRAN MAT (NEUT) % 71.4 % [facility] IMM GRAN % 0.40 % [facility] LYMPH % 15.6 % [facility] MONO % 8.4 % [facility] EOS % 3.8 % [facility] BASO % 0.4 % [facility] GRAN MAT x10^3(ANC) 8.04 (H) 1.88 - 7.09 [facility] 10*3/uL [facility] IMM GRAN x10^3 0.04 0.00 - 0.06 [facility] 10*3/uL [facility] LYMPH x10^3 1.75 1.32 - 3.29 [facility] 10*3/uL [facility] MONO x10^3 0.95 (H) 0.33 - 0.92 [facility] 10*3/uL [facility] EOS x10^3 0.43 (H) 0.03 - 0.39 [facility] 10*3/uL [facility] BASO x10^3 0.04 0.01 - 0.07 [facility] 10*3/uL [facility] Specimen Blood - ARTERIAL Performing Organization Address City/State/Zipcode Phone Number [facility] CLIA: [id number] CIRILO ERICKSON [address] [facility] [address] IR EMBOLIZATION CENTRAL NERVOUS SYSTEM (SNIPPER) PERMANENT (11/21/2019 1:16 PM CDT) Specimen Impressions [...] The patient was brought into the [facility] on angiography suite and placed supine on the table. After prepping and d raping both femoral regions and the right radial artery in t he usual sterile fashion, a 21-gauge Vedantu micro puncture needle was used to punctu re the radial artery and after brisk return of arterial blood, a 0.018 in ch wire was threaded via the needle, after the 6-Zambian vascular sheath was then advanced over the wire and connected to a pressurized arterial saline bag infusing 4 units heparin/ML. A 6-Zambian benchmark catheter, was then advanced over a [...] were then transferred, reconstructed and analyzed on independen t computer workstation. Intervention 1. Placement of intracranial stent in th e left EARTH SCIENCE TEACHER and basilar artery. 2. 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 Following the diagnostic angiography and 3-D rotational angiography, the guide catheter was left in the subclavia n artery due to significant stenosis at the vertebral artery origin. A SL 10 micro catheter was used to traverse the lesion and navigated into the left EARTH SCIENCE TEACHER. A Neuroform stent was deployed from the left EARTH SCIENCE TEACHER into the basilar artery. Th e measurement of the stent was 3 mm x 24 mm. Next the same micro-catheter w as used to traverse the stent into the aneurysm. 3 coils were used to embo lize the aneurysm. After each coil, a control run was perfo rmed to ensure there is no compromise of the EARTH SCIENCE TEACHER and the basilar ar sary. Final run showed good obliteration of the basilar apex aneurysm with no thro mbus in any vessels visualized. [facility] and images were reviewed. The right [...] from the basilar artery t o left EARTH SCIENCE TEACHER. There is no stenosis or thrombus seen. [...] adequate occlusion of the aneurysm. Procedure Note [facility], Radiant Results Inft User - 2019 2:52 [...] t he usual sterile fashion, a 21-gauge Vedantu micro puncture needle was used to puncture the radial artery and after brisk return of arterial bloo d, a 0.018 inch wire was threaded via the needle, after the 6-Zambian vascu lar sheath was then advanced over the wire and connected to a pressurized arterial saline bag infusing 4 units heparin/ML. A 6-Zambian benchmark catheter, was then advanced over a [...] were then transferred, reconstructed and analyzed on [employer] computer workstation. Intervention 1. Placement of intracranial stent in th e left EARTH SCIENCE TEACHER and basilar artery. 2. 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 Following the diagnostic angiography and 3-D rotational angiography, the guide catheter was left in the subclavia n artery due to significant stenosis at the vertebral artery origin. A SL 10 microcatheter was used to traverse the lesion and navigated into t he left EARTH SCIENCE TEACHER. A Neuroform stent was deployed from the left EARTH SCIENCE TEACHER into the basi lar artery. The measurement of the stent was 3 mm x 24 mm. Next the same mi escrow secretary-catheter was used to traverse the stent into the aneurysm. 3 coils wer e used to embolize the aneurysm. After each coil, a control run was perfo rmed to ensure there is no compromise of the EARTH SCIENCE TEACHER and the basilar ar sary. Final run [...] from the ba silar artery to left EARTH SCIENCE TEACHER. There is no stenosis or thrombus seen. [...] ACT LOW RANGE (11/21/2019 10:37 AM CDT) Pathologist Sig nature ACTLR 197 (H) 89 - 169 Seconds [facility] Specimen Blood Performing Organization Address City/State/Zipcode Phone Number [facility] CLIA: [id number] [place] [address] [place] [address] PROTHROMBIN TIME / INR (11/21/2019 9:15 AM CDT) Pathologist Darshan PROTIME PATIENT 10.4 10.1 - 12.6 [facility] Seconds SERVICES-CLEAR [facility] INR 0.9Comment: Normal [facility] INR <1.1; Warfarin SERVICES-CLEAR Therapeutic range [facility] 2.0 to 3.0 or 2.5 to 3.5, depending upon the indications. Specimen Blood Performing Organization Address City/State/Zipcode Phone Number [facility] CLIA: [id number] [place] [address] [facility] [address] CBC WITH DIFF (11/21/2019 9:15 AM CDT) Pathologist [facility] nature WBC 11.49 (H) 4.30 - 11.10 [facility] 10*3/L [facility] RBC 3.69 (L) 3.93 - 5.25 [facility] 10*6/L [facility] HGB 11.0 (L) 11.6 - 15.0 [facility] g/dL [facility] HCT 34.6 (L) 35.7 - 45.2 % [facility] MCV 93.8 80.6 - 95.5 fL [facility] MCH 29.8 25.9 - 32.8 pg [facility] MCHC 31.8 31.6 - 35.1 [facility] g/dL [facility] RDW-SD 51.1 (H) 39.0 - 49.9 fL [facility] RDW-CV 14.8 12.0 - 15.5 % [facility] PLT 261 166 - 358 [facility] 10*3/L [facility] MPV 10.8 9.5 - 12.9 fL [facility] NRBC/100 WBC 0.0 0.0 - 10.0 /100 [facility] WBCs [facility] NRBC x10^3 <0.01 10*3/L [facility] GRAN MAT (NEUT) % 69.7 % [facility] IMM GRAN % 0.90 % [facility] % 15.9 % [facility] MONO % 9.4 % [facility] EOS % 3.7 % [facility] BASO % 0.4 % [facility] GRAN MAT x10^3(ANC) 8.00 (H) 1.88 - 7.09 [facility] 10*3/uL [facility] IMM GRAN x10^3 0.10 (H) 0.00 - 0.06 [facility] 10*3/uL [facility] LYMPH x10^3 1.83 1.32 - 3.29 [facility] 10*3/uL [facility] MONO x10^3 1.08 (H) 0.33 - 0.92 [facility] 10*3/uL [facility] EOS x10^3 0.43 (H) 0.03 - 0.39 [facility] 10*3/uL [facility] BASO x10^3 0.05 0.01 - 0.07 [facility] 10*3/uL [facility] Specimen Blood Performing Organization Address City/State/Zipcode Phone Number [facility] CLIA: [id number] [place] [address] [facility] [address] BASIC METABOLIC PANEL (NA, K, CL, CO2, GLUCOSE, BUN, CREATININE, CA) (11/21/2019 9:14 AM CDT) NA 140 135 - 145 [facility] mmol/L [facility] K 5.3 (H)Comment: 3.5 - 5.0 [facility] Slight hemolysis mmol/L [facility] CL 112 (H) 98 - 108 [facility] mmol/L [facility] CO2 TOTAL 21 (L) 23 - 31 [facility] mmol/L [facility] AGAP 7 2 - 16 [facility] BUN 43 (H)Comment: 7 - 23 mg/dL [facility] Slight hemolysis [facility] GLUCOSE 135 (H) 70 - 110 [facility] mg/dL [facility] CREATININE 1.40 (H) 0.50 - 1.04 [facility] mg/dL [facility] CALCIUM 9.5 8.6 - 10.6 [facility] mg/dL [facility] eGFR Calculation 36.5 mL/min/1.73m2 [facility] (Non- [facility] eGFR Calculation 44.2 mL/min/1.73m2 [facility] () [facility] Specimen Blood Narrative Performed At [facility] Glomerular Filtration [facility] (GFR) and Staging of Kidney Disease* CAMPUS [...] tests). Performing Organization Address City/State/Zipcode Phone Number [facility] CLIA: [id number] [place] [address] SERVICES-[address] Type and Screen - ONCE Routine (11/21/2019 8:43 AM CDT) [facility] ABO & RH A Positive LAB Comment: Performed at [facility] Laboratory Services - [facility] Blood Bank [address] [place] [id number] Toll Free: [phone] CLIA No. [id number] IAT Negative LAB Comment: Performed at [facility] Laboratory Services - [facility] Blood Bank [address] [place] [phone] Toll Free: [phone] CLIA No. [id number] Specimen Blood - [facility] Performing Organization Address [...] cloNIDine (CATAPRES) tablet 0.3 mg Given 11/23/2019 8:52 AM CDT 0.3 mg 0.3 mg, Oral, TID, First dose (after last modification) on Wed11/21/19 at 1430, Until Discontinued, Routine Given 11/22/2019 8:58 PM CDT 0.3 mg Given 11/22/2019 1:42 PM CDT 0.3 mg doxepin (SINEQUAN) capsule 25 mg Given 11/22/2019 8:58 PM CDT 25 mg 25 mg, Oral, QHS, First dose on Wed11/21/19 at 2100, Until Discontinued, Routine Given 11/21/2019 8:23 PM CDT 25 mg gabapentin (NEURONTIN) capsule 300 mg Given 11/23/2019 8:52 AM CDT 300 mg 300 mg, Oral, TID, First dose on Wed11/21/19 at 2000, Until Discontinued, Routine Given 11/22/2019 8:58 PM CDT 300 mg Given 11/22/2019 1:42 PM CDT 300 mg hydrALAZINE (APRESOLINE) tablet [...] mL 0.5 mL, Intramuscular, ONCE, 1 dose, [facility] 11/23/19 at 1245, Routine documented in this encounter Insurance Payer Benefit Plan / Subscriber ID Effective Dates Phone Addre ss Type Group HUMANA - HUMANA [id number] 2017-[facility] MANAGED MEDICARE ERS t PPO MEDICARE Guarantor Name Account Type Relation to Date of Phone Billing Address Patient Means,Bharati Ruvalcaba Personal/Famil Self 1940 [phone] [address] ([place]) [place] [address] documented as of this encounter Advance Directives Type Date Recorded Patient Dietary Clerk Explanati on Power of Tax Adjuster 11/21/2019 1:38 PM Power of Tax Adjuster 11/21/2019 1:40 PM
--- OUTSIDE RECORDS SUMMARY | 2020-02-01 08:14 | XMS REPORT | Summary of Care ---
:1940 Author Organization [address] [address] Care Team Providers Name Role Phone Selene Primary Care Provider Reason for Visit Reason Comments Headache Encounter Details Date Type Department Care Team Description 01/08/[address] [facility] Elvin, Desiree Murrieta al anomaly of cerebrovascular system (Primary Dx); Neurosurgery, Ron DOHERTY Stenosis of carotid artery, unspecified laterality ; [address] Pre-op exam 250 [facility] 4th [place] [phone] Allergies Active Allergy Reactions Severity Noted [...] as of this encounter (statuses as of 01/08/2020) Medications Medication Sig Dispensed Refills Start Date End Date Status aspirin 81 mg chewable Take 1 tablet by 60 tablet 0 11/23/2019 Active tabletIndications: S/P mouth daily. aneurysm repair documented as of this encounter (statuses as of 01/08/2020) Active Problems Problem Noted Date S/P aneurysm repair 11/21/2019 Post-op pain 04/01/2016 documented as of this encounter (statuses as of 01/08/2020) Immunizations Name Administration Dates Next Due Pneumococcal [...] been in contact with No / Unsure 01/08/2020 10:51 AM CDT someone who was confirmed or suspected to have Coronavirus / COVID-19? documented as of this encounter Last Filed Vital Signs Vital Sign Reading Time Taken Comments Blood Pressure 184/75 01/08/2020 11:02 AM CDT Pulse 73 01/08/2020 11:02 AM CDT Temperature - - Respiratory Rate - - Oxygen Saturation - - Inhaled Oxygen Concentration - - Weight 89.4 kg (197 lb 1.6 oz) 01/08/2020 11:01 AM CDT Height 167.6 cm (5' 6") 01/08/2020 11:01 AM CDT Body Mass Index 31.81 01/08/2020 11:01 AM CDT documented in this encounter Progress Notes Indra Oconnor MD - 01/08/2020 11:15 AM CDTAgreed with assessment and plan. RVA stent TTATTPatricia wei FNP - 01/08/2020 11:15 AM CDT Neurosurgery Clinic Note 01/08/2020 Chief Complaint: follow up HPI: Bharati Lancaster is a 79 year old woman presenting to neurosurgery clinic for 4 week post-op follow up. 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 She has recovered very well. Today, she does not have any neurological complaints. Denies TIA or stroke symptoms. Past Medical History: Past Medical History: Diagnosis Date Acid reflux well controlled Atrial fibrillation Cleared by Dr. Morton and Dr. Mcleod Cataract Cerebrovascular disease DVT of leg (deep venous thrombosis) 2012 Left leg, taking zarelto Dyslipidemia Gout Hyperlipidemia Hypertension Hypothyroidism Post-operative nausea and vomiting RBBB (right bundle branch block) Surgical History: Past Surgical History: Procedure Laterality Date APPENDECTOMY ARTHROSCOPIC SHOULDER ROTATOR CUFF REPAIR Left CHOLECYSTECTOMY KNEE ARTHROSCOPY Bilateral OPEN CARPAL TUNNEL RELEASE Bilateral PHACOEMULSIFICATION OF CATARACT WITH INTRAOCULAR LENS IMPLANT Left 12/09/2017 Surgeon: Benjamin Rodriguez MD; Location[facility] OR Location PHACOEMULSIFICATION OF CATARACT WITH INTRAOCULAR LENS IMPLANT Right 12/23/2017 Surgeon: Benjamin Rodriguez MD; Location: [facility] OR Location THYROIDECTOMY Questionable - was told that her thyroid was removed at age 9 or 10 TOTAL KNEE ARTHROPLASTY Left 04/01/2016 Surgeon: Flex Marrero MD; Location: [facility] OR [facility] Review of Systems A 10 system ROM was negative apart from the positives noted in the HPI above. Physical Exam: BP (!) 184/75 | Pulse 73 | Ht 5' 6" (1.676 m) | Wt 197 lb 1.6 oz (89.4 kg) | BMI 31.81 kg/m Appearance: patient alert, oriented x4, and in no acute distress ENT: PERRL bilaterally, EOMI bilaterally Cardiovascular: 2+ dorsalis pedis pulses Respiratory: No use of accessory respiratory muscles Extremities: extremities, peripheral pulses and reflexes normal, no edema, redness or tenderness inthe calves or thighs Musculoskeletal: Moves all extremities equally, normal tone in BUE & BLE, bulk is normal, no atrophy Neuro: Language/Speech: Fluency: intact; no dysarthria Comprehension: intact Cranial Nerves: EOMI, gaze is conjugate and without any deviation, no nystagmus Face symmetric, no facial droop, tongue midline Hearing intact Gait stable without drift Imaging: IR Embolization 11/21/19: Findings: - Right subclavian artery: There is [...] stent is well-positioned from the basilar artery to left 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 There is no stenosis or thrombus seen. It bridges the neck of the aneurysm well. Right vertebral artery control run 1: There is no encroachment of the basilar apex. The coil was within the confines of the aneurysm. Right vertebral artery control run 2: There is no encroachment of the basilar apex. The coil was within the confines of the aneurysm. Right vertebral artery control run 3: There is no encroachment of the basilar apex. The coil was within the confines of the aneurysm. There is adequate occlusion of the aneurysm. 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 Overall, she is recovering well. We reviewed her imagine and met with patient and her family. 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 We explained the procedure in detail, as well as associated risks. Patient and family voiced understanding and wish to proceed. Will plan for right vertebral stent on 01/23/20. Pre op labs placed [facility] documented in this encounter Plan of Treatment Name Type Priority Associated Diagnoses Order S chedule VERIFYNOW PRUTEST (P2Y12) LAB Routine Stenosis of car otid Expected: 01/08/2020, artery, unspecified Expires: 01/07/2021 laterality Pre-op exam VERIFYNOW ASPIRIN TEST LAB Routine Stenosis of caroti d Expected: 01/08/2020, artery, unspecified Expires: 01/07/2021 laterality Pre-op exam CBC WITH DIFF LAB Routine Stenosis of carotid Expecte d: 01/08/2020, artery, unspecified Expires: 01/07/2021 laterality Pre-op exam BASIC METABOLIC PANEL LAB Routine Stenosis of carotid Expected: 01/08/2020, (NA, K, CL, CO2, GLUCOSE, artery, unspeci fied Expires: 01/07/2021 BUN, CREATININE, CA) laterality Pre-op exam PROTHROMBIN TIME / INR LAB Routine Stenosis of caroti d Expected: 01/08/2020, artery, unspecified Expires: 01/07/2021 laterality Pre-op exam aPTT LAB Routine Stenosis of carotid Expected : 01/08/2020, artery, unspecified Expires: 01/07/2021 laterality Pre-op exam Health Maintenance Due Date Last Done Comments DTaP,Tdap,and Td Vaccines (1 - Tdap) 1961 Zoster Recombinant Vaccine (SHINGRIX) (1 of 2) 02/08/1992 LUNG CANCER SCREEN: Recommended for age 55-80 with 30 1997 + pack year history Medicare Wellness Visit 2007 Osteoporosis Screening 2007 INFLUENZA VACCINE (#1) 2019 Depression Screening 11/20/2020 11/21/2019 PNEUMOCOCCAL VACCINES 65+ Completed 11/23/2019 documented as of this encounter Implants Implanted Type Area Weaver N[employer] Device Shelf Model / Serial Identifier Expiration / Lot Date [employer] W/ Gent CEMENT Left: Knee Vinny [id number] / Implanted: Qty: 1 on 04/01/2016 by Flex Penaloza MD at [facility] 8 [id number] / [id number] [employer] W/ Gent CEMENT Left: Knee Vinny [id number] / Implanted: Qty: 1 on 04/01/2016 by Flex Penaloza MD at [facility] 8 [id number] / [id number] Ps Open Box Femoral-Left Femur Left: Knee Biomet 11/0 06/2025 [id number] / Implanted: Qty: 1 on 04/01/2016 by Flex Penaloza MD at [facility] J [id number] / [id number] Fixed Cruciate Tibial Plate KNEE Left: Knee Biomet 0 09/18/2025 [id number] / Implanted: Qty: 1 on 04/01/2016 by Flex Penaloza MD at [facility] J [id number] / [id number] Ps Tibial Bearing KNEE Left: Knee Biomet 06/25/2020 [id number] / Implanted: Qty: 1 on 04/01/2016 by Flex Penaloza MD at [facility] 3 [id number] / [id number] Lens, Raf #Sn60wf - [id number] LENS Left: Eye Raf 06/09/2022 SN60WF / Implanted: Qty: 1 on 12/09/2017 by Benjamin Rodriguez MD at [facility] 8 [id number] / [id number] Lens, Raf #Sn60wf - [id number] LENS Right: Eye Raf 08/09/2022 SN60WF / Implanted: Qty: 1 on 12/23/2017 by Benjamin Rodriguez MD at [facility] 9 [id number] / [id number] Neuroform [place] STENT N/A: Frnasisca 08/17/2023 UZA [id number] / Implanted: Qty: 1 on 11/21/2019 by Indra Oconnor MD at [facility] ([facility]) Cranium [id number] / [id number] Adc Patella 28 X 8 Mm - [id number] Left: Knee Biomet 11/01/2020 [id number] / Implanted: Qty: 1 on 04/01/2016 by Flex Penaloza MD at [facility] 9 [id number] / [id number] Target 360 Ultra Detachable Coil Cranium Fransisca 04/29/2021 [id number] / Implanted: Qty: 1 on 11/21/2019 by Indra Oconnor MD at [facility] ([facility]) [id number] / [id number] Target 360 Ultra Detachable Coil Cranium [place] 05/03/2021 [id number] / Implanted: Qty: 1 on 11/21/2019 by Indra Oconnor MD at [facility] ([facility]) [id number] / [id number] documented as of this encounter Results Not on filedocumented in this encounter Visit Diagnoses Diagnosis 

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
--- OUTSIDE RECORDS SUMMARY | 2020-02-01 08:14 | XMS REPORT | Summary of Care ---
:1940 Author Organization [facility] - [address] [address] Care Team Providers Name Role Phone Selene Primary Care Provider Reason for Visit Reason Comments Transition Of Care Encounter Details Date Type Department Care Team Description 11/24/2019 Transition of Care [facility] [address] [address] Allergies Active Allergy Reactions Severity Noted Date [...] as of this encounter (statuses as of 11/24/2019) Medications Medication Sig Dispensed Refills Start Date End Date Status aspirin 81 mg chewable Take 1 tablet by 60 tablet 0 11/23/2019 Active tabletIndications: S/P mouth daily. aneurysm repair documented as of this encounter (statuses as of 11/24/2019) Active Problems Problem Noted Date S/P aneurysm repair 11/21/2019 Post-op pain 04/01/2016 documented as of this encounter (statuses as of 11/24/2019) Immunizations Name Administration Dates Next Due Pneumococcal [...] this encounter Miscellaneous Notes Telephone Encounter - Ermias Castillo RN - 11/24/2019 3:01 PM CDT2nd attempt CM made follow up call to patient post-discharge. No answer and call went to voicemail. CM left a discreet message with purpose of call and CM's call back information. Telephone Encounter - Ermias Castillo RN - 11/24/2019 10:47 AM CDT1st attempt CM made follow up call to patient post-discharge. No answer and call went to voicemail. CM left a discreet message with purpose of call and CM's call back information. documented in this encounter Plan of Treatment Date Type Specialty Care Team Description 12/25/2019 Office Visit Neurological Surgery Elvin, Indra Avendaño MD [address] [place] [phone] Health Maintenance Due Date Last Done Comments [...] of this encounter Implants Implanted Type Area Mds Coordinator Device Shelf Model / Serial Identifier Expiration / Lot Date [employer] C[employer] W/ Gent CEMENT Left: Knee Vinny -1113-140-01 / Implanted: Qty: 1 on 04/01/2016 by Flex Penaloza MD at [facility] 8 [id number] / [id number] [employer] Cement W/ Gent CEMENT Left: Knee Vinny -1113-140-01 / Implanted: Qty: 1 on 04/01/2016 by Flex Penaloza MD at [facility] 8 [id number] / [id number] Ps Open Box Femoral-Left Femur Left: Knee Biomet 11/0 06/2025 [id number] / Implanted: Qty: 1 on 04/01/2016 by Flex Penaloza MD at [facility] J [id number] / [id number] Fixed Cruciate Tibial Plate KNEE Left: Knee Biomet 0 09/18/2025 [id number] / Implanted: Qty: 1 on 04/01/2016 by Flex Penaloza MD at [facility] J [id number] / [id number] Ps Tibial Bearing KNEE Left: Knee Biomet 06/25/2020 [id number] / Implanted: Qty: 1 on 04/01/2016 by Flex Penaloza MD at [facility] 3 [id number] / [id number] Lens, Raf #Sn60wf - [id number] LENS Left: Eye Raf 06/09/2022 SN60WF / Implanted: Qty: 1 on 12/09/2017 by Benjamin Rodriguez MD at [facility] 7 [id number] / [id number] Lens, Raf #Sn60wf - [id number] LENS Right: Eye Raf 08/09/2022 SN60WF / Implanted: Qty: 1 on 12/23/2017 by Benjamin Rodriguez MD at [facility] 8 [id number] / [id number] Neuroform [place] STENT N/A: Fransisca 08/17/2023 UZA [id number] / Implanted: Qty: 1 on 11/21/2019 by Indra Oconnor MD at [facility] ([facility]) Cranium [id number] / [id number] Adc Patella 28 X 8 Mm - [id number] Left: Knee Biomet 11/01/2020 [id number] / Implanted: Qty: 1 on 04/01/2016 by Flex Penaloza MD at [facility] 9 [id number] / [id number] Target 360 Ultra Detachable Coil Cranium [place] 04/29/2021 [id number] / Implanted: Qty: 1 on 11/21/2019 by Indra Oconnor MD at [facility] ([facility]) [id number] / [id number] Target 360 Ultra Detachable Coil Cranium Fransisca 05/03/2021 [id number] / Implanted: Qty: 1 on 11/21/2019 by Indra Oconnor MD at [facility] ([facility]) [id number] / [id number] documented as of this encounter Results Not on filedocumented in this encounter Insurance Payer Benefit Plan / Subscriber ID Effective Dates Phone Addre ss Type Group HUMANA - HUMANA [id number] 2017-[facility] MANAGED MEDICARE ERS t PPO MEDICARE documented as of this encounter Advance Directives Type Date Recorded Patient Out Patient Therapist Explanati on Power of Element Burner 11/21/2019 1:38 PM Power of Element Burner 11/21/2019 1:40 PM
--- OUTSIDE RECORDS SUMMARY | 2020-02-01 08:15 | XMS REPORT | Summary of Care ---
:1940 Author Organization [facility] - Health Address [address] [place] [address] Care Team Providers Name Role Phone Selene Primary Care Provider Encounter Details Date Type Department Care Team Description 01/15/2020 Orders Only [facility] Doctor Unassigned, No [address] [facility] [place] [address] [address] [place] [address] Allergies Active Allergy Reactions Severity Noted Date [...] as of this encounter (statuses as of 01/15/2020) Medications Medication Sig Dispensed Refills Start Date End Date Status aspirin 81 mg chewable Take 1 tablet by 60 tablet 0 11/23/2019 Active tabletIndications: S/P mouth daily. aneurysm repair documented as of this encounter (statuses as of 01/15/2020) Active Problems Problem Noted Date S/P aneurysm repair 11/21/2019 Post-op pain 04/01/2016 documented as of this encounter (statuses as of 01/15/2020) Immunizations Name Administration Dates Next Due Pneumococcal [...] been in contact with No / Unsure 01/10/2020 3:10 PM CDT someone who was confirmed or suspected to have Coronavirus / COVID-19? documented as of this encounter Last Filed Vital Signs Not on filedocumented in this encounter Plan of Treatment Date Type Specialty Care Team Description 01/15/2020 Laboratory Only Clinical Medical Only, Adc Test Laboratory 01/23/2020 Appointment Radiology Patricia Rose, COUNTY DIRECTOR WELFARE [address] [place] [address] Health Maintenance Due Date Last Done Comments [...] of this encounter Implants Implanted Type Area Bods Developer Device Shelf Model / Serial Identifier Expiration / Lot Date [employer] W/ Gent CEMENT Left: Knee Vinny -1113-140-01 / Implanted: Qty: 1 on 04/01/2016 by Flex Penaloza MD at [facility] 8 [id number] / [id number] [employer] W/ Gent CEMENT Left: Knee Vinny -1113-140-01 / Implanted: Qty: 1 on 04/01/2016 by Flex Penaloza MD at [facility] 8 [id number] / [id number] Ps Open Box Femoral-Left Femur Left: Knee Biomet 11/0 06/2025 [id number] / Implanted: Qty: 1 on 04/01/2016 by Flex Penaloza MD at [facility] J [id number] / [id number] Fixed Cruciate Tibial Plate KNEE Left: Knee Biomet 0 09/18/2025 [id number] / Implanted: Qty: 1 on 04/01/2016 by Flex Penaloza MD at [facility] J [id number] / [id number] Ps Tibial Bearing KNEE Left: Knee Biomet 06/25/2020 [id number] / Implanted: Qty: 1 on 04/01/2016 by Flex Penaloza MD at [facility] 3 [id number] / [id number] Lens, Raf #Sn60wf - [id number] LENS Left: Eye Raf 06/09/2022 SN60WF / Implanted: Qty: 1 on 12/09/2017 by Benjamin Rodriguez MD at [facility] 9 [id number] / [id number] Lens, Raf #Sn60wf - [id number] LENS Right: Eye Raf 08/09/2022 SN60WF / Implanted: Qty: 1 on 12/23/2017 by Benjamin Rodriguez MD at [facility] 7 [id number] / [id number] Neuroform [place] STENT N/A: Fransisca 08/17/2023 UZA [id number] / Implanted: Qty: 1 on 11/21/2019 by Indra Oconnor MD at [facility] ([facility]) Cranium [id number] / [id number] Adc Patella 28 X 8 Mm - [id number] Left: Knee Biomet 11/01/2020 [id number] / Implanted: Qty: 1 on 04/01/2016 by Flex Penaloza MD at [facility] 9 [id number] / [id number] Target 360 Ultra Detachable Coil Cranium [place] 04/29/2021 [id number] / Implanted: Qty: 1 on 11/21/2019 by Indra Oconnor MD at [facility] ([facility]) [id number] / [id number] Target 360 Ultra Detachable Coil Cranium [place] 05/03/2021 [id number] / Implanted: Qty: 1 on 11/21/2019 by Indra Oconnor MD at [facility] ([facility]) [id number] documented as of this encounter Procedures Procedure Name Priority Date/Time Associated Diagnosis Comme nts ASSIGNMENT OF BENEFITS Routine 01/15/2020 10:05 AM CDT documented in this encounter Results Not on filedocumented in this encounter Insurance Payer Benefit Plan / Subscriber ID Effective Dates Phone Addre ss Type Group HUMANA - HUMANA [id number] 2017-[facility] Adv MANAGED MEDICARE ERS t PPO MEDICARE documented as of this encounter Advance Directives Type Date Recorded Patient Child Care Attendant Explanati on Power of Tube Depatcher 11/21/2019 1:38 PM Power of Tube Depatcher 11/21/2019 1:40 PM
--- OUTSIDE RECORDS SUMMARY | 2020-02-01 08:15 | XMS REPORT | Summary of Care ---
:1940 Author Organization [address] [address] Care Team Providers Name Role Phone Selene Primary Care Provider Reason for Referral Radiology Services (Routine) Status Reason Specialty Diagnoses / Referred By Referred To Procedures Contact Contact New Request Diagnostic Diagnoses Congenital anomaly of cerebrovascular system Stenosis of carotid artery, unspecified laterality [place], Radiology Procedures IR INTRAVASCULAR STENT WITH DISTAL EMBOLIC PROTECTION RENATA [address] [place] [address] Reason for Visit Reason Comments Headache Encounter Details Date Type Department Care Team Description 01/08/2020 Office Visit [facility] Elvin, Indra Avendaño, Congenit al anomaly of cerebrovascular system (Primary Dx); Neurosurgery, Ron DOHERTY Stenosis of carotid artery, unspecified laterality ; [address] Pre-op exam [address] [facility], [address] [place] [phone] Allergies Active Allergy Reactions Severity Noted [...] CDTAgreed with assessment and plan. RVA stent TTATTPernell wei FNP - 01/08/2020 11:15 AM CDT [...] Left 12/09/2017 Surgeon: Benjamin Rodriguez MD; Location: [facility] OR Location PHACOEMULSIFICATION OF CATARACT WITH INTRAOCULAR LENS IMPLANT Right 12/23/2017 Surgeon: Benjamin Rodriguez MD; Location: [facility] OR [facility] THYROIDECTOMY Questionable - was told that her thyroid was removed at age [age] TOTAL KNEE ARTHROPLASTY Left 04/01/2016 Surgeon: Flex Marrero MD; Location: [facility] OR [facility] Review of Systems A 10 system ROM [...] well-positioned from the basilar artery to left SLOT MACHINE KEY PERSON. There is no stenosis or thrombus seen. [...] REHANA Fountain Neurosurgery documented in this encounter Miscellaneous Notes Addendum Note - Pernell Rose FNP - 01/08/2020 11:15 AM CDT Addended by: PERNELL BARNETT on: 01/08/2020 04:03 PM Modules accepted: Orders documented in this encounter Plan of Treatment Name Type Priority Associated Diagnoses Order S chedule VERIFYNOW PRUTEST LAB Routine Stenosis of carotid Exp ected: (P2Y12) artery, unspecified 01/08/20 20, laterality Expires: Pre-op exam 01/07/2021 VERIFYNOW ASPIRIN TEST LAB Routine Stenosis of caroti d Expected: artery, unspecified 01/08/20 20, laterality Expires: Pre-op exam 01/07/2021 CBC WITH DIFF LAB Routine Stenosis of carotid Expecte d: artery, unspecified 01/08/20 20, laterality Expires: Pre-op exam 01/07/2021 BASIC METABOLIC PANEL LAB Routine Stenosis of carotid Expected: (NA, K, CL, CO2, artery, unspecified 12/12, GLUCOSE, BUN, laterality Expires: CREATININE, CA) Pre-op exam 01/07/2021 PROTHROMBIN TIME / INR LAB Routine Stenosis of caroti d Expected: artery, unspecified 01/08/20 20, laterality Expires: Pre-op exam 01/07/2021 aPTT LAB Routine Stenosis of carotid Expected : artery, unspecified 01/08/20 20, laterality Expires: Pre-op exam 01/07/2021 IR INTRAVASCULAR STENT IMAGING Routine Congenital anomaly of Expected: WITH DISTAL EMBOLIC cerebrovascu lar system 01/08/2020, PROTECTION Stenosis of carotid Expires: artery, unspecified 01/08/20 21 laterality Health Maintenance Due Date Last Done [...] of this encounter Implants Implanted Type Area Shopping Inspector Device Shelf Model / Serial Identifier Expiration / Lot Date [employer] C[employer] W/ Gent CEMENT Left: Knee Vinny -1113-140-01 / Implanted: Qty: 1 on 04/01/2016 by Flex Penlaoza MD at [facility] 8 [id number] / [id number] [employer] W/ Gent CEMENT Left: Knee Vinny -1113-140-01 / Implanted: Qty: 1 on 04/01/2016 by Flex Penaloza MD at [facility] 8 [id number] / [id number] Ps Open Box Femoral-Left Femur Left: Knee Biomet 11/0 06/2025 [id number] / Implanted: Qty: 1 on 04/01/2016 by Flex Penaloza MD at [facility] J [id number] / [id number] Fixed Cruciate Tibial Plate KNEE Left: Knee Biomet 0 09/18/2025 [id number] / Implanted: Qty: 1 on 04/01/2016 by Flex Penaloza MD at [facility] J [id number] / [id number] Ps Tibial Bearing KNEE Left: Knee Biomet 06/25/2020 [id number] / Implanted: Qty: 1 on 04/01/2016 by Flex Penaloza MD at [facility] 3 [id number] / [id number] Lens, Raf #Sn60wf - [id number] LENS Left: Eye Raf 06/09/2022 SN60WF / Implanted: Qty: 1 on 12/09/2017 by Benjamin Rodriguez MD at [facility] 7 [id number] / [id number] Lens, Raf #Sn60wf - [id number] LENS Right: Eye Raf 08/09/2022 SN60WF / Implanted: Qty: 1 on 12/23/2017 by Benjamin Rodriguez MD at [facility] 0 [id number] / [id number] Neuroform [place] STENT N/A: Fransisca 08/17/2023 UZA [id number] / Implanted: Qty: 1 on 11/21/2019 by Indra Oconnor MD at [facility] ([facility]) Cranium [id number] 605 / [id number] Adc Patella 28 X 8 Mm - [id number] Left: Knee Biomet 11/01/2020 [id number] / Implanted: Qty: 1 on 04/01/2016 by Flex Penaloza MD at [facility] 9 [id number] / [id number] Target 360 Ultra Detachable Coil Cranium [place] 04/29/2021 [id number] / Implanted: Qty: 1 on 11/21/2019 by Indra Oconnor MD at [facility] ([facility]) [id number] Target 360 Ultra Detachable Coil Cranium [place] 05/03/2021 [id number] / Implanted: Qty: 1 on 11/21/2019 by Indra Oconnor MD at [facility] ([facility]) [id number] documented as of this encounter Results Not on filedocumented in this encounter Visit Diagnoses Diagnosis Congenital anomaly of cerebrovascular sy stem - Primary Stenosis of carotid artery, unspecified laterality Pre-op exam Preoperative examination, unspecified documented in this encounter Insurance Payer Benefit Plan / Subscriber ID Effective Dates Phone Addre ss Type Group HUMANA - HUMANA [id number] 2017-[facility] MANAGED MEDICARE ERS t PPO MEDICARE documented as of this encounter Advance Directives Type Date Recorded Patient Travel Freight And Passenger Agent Explanati on Power of Power Technician 11/21/2019 1:38 PM Power of Power Technician 11/21/2019 1:40 PM
--- OUTSIDE RECORDS SUMMARY | 2020-02-01 08:15 | XMS REPORT | Summary of Care ---
:1940 Author Organization [address] [address] Care Team Providers Name Role Phone Selene Primary Care Provider Reason for Visit Reason Comments Headache Encounter Details Date Type Department Care Team Description 01/08/2020 Office Visit [facility] Elvin, Desiree Murrieta al anomaly of cerebrovascular system (Primary Dx); Neurosurgery, Ron DOHERTY Stenosis of carotid artery, unspecified laterality ; [address] Pre-op exam [address] [facility] 4th [place] [phone] Allergies Active Allergy Reactions [...] Left 12/09/2017 Surgeon: Benjamin Rodriguez MD; Location: [facility] OR Location PHACOEMULSIFICATION OF CATARACT WITH INTRAOCULAR LENS IMPLANT Right 12/23/2017 Surgeon: Benjamin Rodriguez MD; Location: [facility] OR Location THYROIDECTOMY Questionable - was told that her thyroid was removed at age 9 or 10 TOTAL KNEE ARTHROPLASTY Left 04/01/2016 Surgeon: Flex Marrero MD; Location: [facility] OR [facility] Review of Systems A 10 system ROM [...] well-positioned from the basilar artery to left 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 There is no stenosis or thrombus seen. [...] of this encounter Implants Implanted Type Area Senior Group Manager Device Shelf Model / Serial Identifier Expiration / Lot Date Pal[employer] Cement W/ Gent CEMENT Left: Knee Vinny 95-0135-099-01 / Implanted: Qty: 1 on 04/01/2016 by Flex Penaloza MD at [facility] 8 [id number] / [id number] Pal[employer] Cement W/ Gent CEMENT Left: Knee Vinny [id number] / Implanted: Qty: 1 on 04/01/2016 by Flex Penaloza MD at [facility] 8 [id number] / [id number] Ps Open Box Femoral-Left Femur Left: Knee Biomet 11/0 06/2025 [id number] / Implanted: Qty: 1 on 04/01/2016 by Flex Penaloza MD at [facility] J [id number] / [id number] Fixed Cruciate Tibial Plate KNEE Left: Knee Biomet 0 09/18/2025 [id number] / Implanted: Qty: 1 on 04/01/2016 by Flex Penaloza MD at [facility] J [id number] / [id number] Ps Tibial Bearing KNEE Left: Knee Biomet 06/25/2020 [id number] / Implanted: Qty: 1 on 04/01/2016 by Flex Penaloza MD at [facility] 3 [id number] / [id number] Lens, Raf #Sn60wf - [id number] LENS Left: Eye Raf 06/09/2022 SN60WF / Implanted: Qty: 1 on 12/09/2017 by Benjamin Rodriguez MD at [facility] 5 [id number] / [id number] Lens, Raf #Sn60wf - [id number] LENS Right: Eye Raf 08/09/2022 SN60WF / Implanted: Qty: 1 on 12/23/2017 by Benjamin Rodriguez MD at [facility] 5 [id number] / [id number] Neuroform [place] STENT N/A: Fransisca 08/17/2023 UZA [id number] / Implanted: Qty: 1 on 11/21/2019 by Indra Oconnor MD at [facility] ([facility]) Cranium [id number] 605 / [id number] Adc Patella 28 X 8 Mm - [id number] Left: Knee Biomet 11/01/2020 [id number] / Implanted: Qty: 1 on 04/01/2016 by Flex Penaloza MD at [facility] 9 [id number] / [id number] Target 360 Ultra Detachable Coil Cranium Fransisca 04/29/2021 [id number] / Implanted: Qty: 1 on 11/21/2019 by Indra Oconnor MD at [facility] ([facility]) [id number] / [id number] Target 360 Ultra Detachable Coil Cranium [place] 05/03/2021 [id number] / Implanted: Qty: 1 on 11/21/2019 by Indra Oconnor MD at [facility] ([facility]) [id number] / [id number] documented as of this encounter Results Not on filedocumented in this encounter Visit Diagnoses Diagnosis Congenital anomaly of cerebrovascular sy stem - Primary Stenosis of carotid artery, unspecified laterality Pre-op exam Preoperative examination, unspecified documented in this encounter Insurance Payer Benefit Plan / Subscriber ID Effective Dates Phone Addre ss Type Group HUMANA - HUMANA [id number] 2017-[facility] MANAGED MEDICARE ERS t PPO MEDICARE [phone] [address] ([place]) [place] [address] documented as of this encounter Advance Directives Type Date Recorded 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
--- OUTSIDE RECORDS SUMMARY | 2020-02-01 08:16 | XMS REPORT | Summary of Care ---
:1940 Author Organization [facility] Address [address] [place] [address] Care Team Providers Name Role Phone Selene Primary Care Provider Reason for Visit Reason Comments LAB WORK Auth/Cert Status Reason Specialty Diagnoses / Referred By Referred To Procedures Contact Contact Clinical Medical Diagnoses PRE OP Adc Lab Laboratory Procedures PRE OP COVID TEST [address] [place] [address] Encounter Details Date Type Department Care Team Description 01/15/2020 Security Flex Utility Officer Visit [facility] [place], Indra Avendaño MD [address] [facility] [address] [place] [address] Stenosis of carotid artery, unspecified laterality ; PHLEBOTOMY/LAB Vls-Lab Pre-op exam [address] [facility] [address] [place] [address] Allergies Active Allergy Reactions Severity Noted Date [...] been in contact with No / Unsure 01/15/2020 12:47 PM CDT someone who was confirmed or suspected to have Coronavirus / COVID-19? documented as of this encounter Last Filed Vital Signs Not on filedocumented in this encounter Nursing Notes Cata Garcia - 01/15/2020 12:15 PM CDTCalled client services( I spoke to Lisa) and verified that these test are only done in [place]... documented in this encounter Plan of Treatment Date Type Specialty Care Team Description 01/17/2020 Security Flex Utility Officer Visit Phlebotomy [facility] 01/23/2020 Appointment Radiology Patricia Rose, PASTEURISER OPERATOR [address] [place], [place] [phone] Health Maintenance Due Date Last Done Comments [...] of this encounter Implants Implanted Type Area Drill Operator Pneumatic Device Shelf Model / Serial Identifier Expiration / Lot Date Pal[employer] Cement W/ Gent CEMENT Left: Knee Vinny 1113-140-01 / Implanted: Qty: 1 on 04/01/2016 by Flex Penaloza MD at [facility] 8 [id number] / [id number] Pal[employer] Cement W/ Gent CEMENT Left: Knee Vinny 1113-140-01 / Implanted: Qty: 1 on 04/01/2016 by Flex Penaloza MD at [facility] 8 [id number] / [id number] Ps Open Box Femoral-Left Femur Left: Knee Biomet 11/0 06/2025 [id number] / Implanted: Qty: 1 on 04/01/2016 by Flex Penaloza MD at [facility] J [id number] / [id number] Fixed Cruciate Tibial Plate KNEE Left: Knee Biomet 0 09/18/2025 291701 / Implanted: Qty: 1 on 04/01/2016 by Flex Penaloza MD at [facility] J [id number] / [id number] Ps Tibial Bearing KNEE Left: Knee Biomet 06/25/2020 487166 / Implanted: Qty: 1 on 04/01/2016 by Flex Penaloza MD at [facility] 3 [id number] / [id number] Lens, Raf #Sn60wf - [id number] LENS Left: Eye Raf 06/09/2022 SN60WF / Implanted: Qty: 1 on 12/09/2017 by Benjamin Rodriguez MD at [facility] 0 [id number] / [id number] Lens, Raf #Sn60wf - [id number] LENS Right: Eye Raf 08/09/2022 SN60WF / Implanted: Qty: 1 on 12/23/2017 by Benjamin Rodriguez MD at [facility] 5 [id number] / [id number] Neuroform [place] STENT N/A: Fransisca 08/17/2023 UZA S3024 / Implanted: Qty: 1 on 11/21/2019 by Indra Oconnor MD at [facility] ([facility]) Cranium [id number] 605 / [id number] Adc Patella 28 X 8 Mm - [id number] Left: Knee Biomet 11/01/2020 [id number] / Implanted: Qty: 1 on 04/01/2016 by Flex Penaloza MD at [facility] 9 [id number] / [id number] Target 360 Ultra Detachable Coil Cranium [place] 04/29/2021 [id number] / Implanted: Qty: 1 on 11/21/2019 by Indra Oconnor MD at [facility] ([facility]) 10889 5 / [id number] Target 360 Ultra Detachable Coil Cranium [place] 05/03/2021 [id number] / Implanted: Qty: 1 on 11/21/2019 by Indra Oconnor MD at [facility] ([facility]) [id number] 0 / [id number] documented as of this encounter Results Not on filedocumented in this encounter Visit Diagnoses Diagnosis Stenosis of carotid artery, unspecified laterality Pre-op exam Preoperative examination, unspecified documented in this encounter Additional Health Concerns Infection Onset Date Last Indicated Resolved Time COVID-19 Rule Out 01/15/2020 01/15/2020 documented as of this encounter Insurance Payer Benefit Plan / Subscriber ID Effective Dates Phone Addre ss Type Group HUMANA - HUMANA [id number] 2017-[facility] MANAGED MEDICARE ERS t PPO MEDICARE [phone] [place] [address] [address] ([place]) [place] [address] documented as of this encounter Advance Directives Type Date Recorded Patient Still Operator Whiskey Explanati on Power of Insecticide Expert 11/21/2019 1:38 PM Power of Insecticide Expert 11/21/2019 1:40 PM
--- OUTSIDE RECORDS SUMMARY | 2020-02-01 08:16 | XMS REPORT | Summary of Care ---
:1940 Author Organization [facility] Address [address] [place] [address] Care Team Providers Name Role Phone Selene Primary Care Provider Reason for Visit Reason Comments LAB WORK Encounter Details Date Type Department Care Team Description 01/17/2020 Acoustical Tile Carpenters Supervisor Visit [facility] Clinical Patricia Rose, LITHARGE SUPERVISOR [address] [place] [address] Stenosis of carotid Laboratory - [facility], [facility] artery, unspecified Bates laterality [address] [place] [phone] Allergies Active Allergy Reactions Severity Noted Date [...] as of this encounter (statuses as of 01/17/2020) Medications Medication Sig Dispensed Refills Start Date End Date Status aspirin 81 mg chewable Take 1 tablet by 60 tablet 0 11/23/2019 Active tabletIndications: S/P mouth daily. aneurysm repair documented as of this encounter (statuses as of 01/17/2020) Active Problems Problem Noted Date S/P aneurysm repair 11/21/2019 Post-op pain 04/01/2016 documented as of this encounter (statuses as of 01/17/2020) Immunizations Name Administration Dates Next Due Pneumococcal [...] on filedocumented in this encounter Nursing Notes Princess Eva Egan - 01/17/2020 8:30 AM CDT Venipuncture collection performed by clean technique on the right anticubitus. Total of 1 attempts were made. Slight pressure and a bandage/dressing were applied to the site(s). The patient experiencedno complications. The following specimens were processed according to instructions and sent to [facility] laboratories per lab order on 01/17/2020: LT BLUE SST RED LAV PPT DK GREEN (LiHep) DK GREEN (SodH) PRAJAPATI DK BLUE (K2) DK BLUE (S) ACD Blood Culture NIPT/NTD 4 v[place]a [place] Walked to lab by Cristina Brush signed by Princess Eva Egan at 01/17/2020 8:31 AM CDTdocumented in this encounter Plan of Treatment Date Type Specialty Care Team Description 01/16/2020 Anesthesia Event Radiology Deandra Young, RN [address] [place] [address] 01/23/2020 Hospital Encounter Radiology Herson Rose C, LITHARGE SUPERVISOR [address] [place] [address] Health Maintenance Due Date Last [...] of this encounter Implants Implanted Type Area Sap Trainer Device Shelf Model / Serial Identifier Expiration / Lot Date [employer] C[employer] W/ Gent CEMENT Left: Knee Vinny 1113-140-01 / Implanted: Qty: 1 on 04/01/2016 by Flex Penaloza MD at [facility] 8 [id number] / [id number] [employer] Cement W/ Gent CEMENT Left: Knee Vinny 1113-140- / Implanted: Qty: 1 on 04/01/2016 by Flex Penaloza MD at [facility] 8 [id number] / [id number] Ps Open Box Femoral-Left Femur Left: Knee Biomet 11/0 06/2025 [id number] / Implanted: Qty: 1 on 04/01/2016 by Flex Penaloza MD at [facility] J [id number] / [id number] Fixed Cruciate Tibial Plate KNEE Left: Knee Biomet 0 09/18/2025 [id number] / Implanted: Qty: 1 on 04/01/2016 by Flex Penaloza MD at [facility] J [id number] / [id number] Ps Tibial Bearing KNEE Left: Knee Biomet 06/25/2020 [id number] / Implanted: Qty: 1 on 04/01/2016 by Flex Penaloza MD at [facility] 3 [id number] / [id number] Lens, Raf #Sn60wf - [id number] LENS Left: Eye Raf 06/09/2022 SN60WF / Implanted: Qty: 1 on 12/09/2017 by Benjamin Rodriguez MD at [facility] 0 [id number] / [id number] Lens, Raf #Sn60wf - [id number] LENS Right: Eye Raf 08/09/2022 SN60WF / Implanted: Qty: 1 on 12/23/2017 by Benjamin Rodriguez MD at [facility] 3 [id number] / [id number] Neuroform [place] STENT N/A: [place] 08/17/2023 UZA [id number] / Implanted: Qty: 1 on 11/21/2019 by Indra Oconnor MD at [facility] ([facility]) Cranium [id number] 605 / [id number] Adc Patella 28 X 8 Mm - [id number] Left: Knee Biomet 11/01/2020 [id number] / Implanted: Qty: 1 on 04/01/2016 by Flex Penaloza MD at [facility] 9 [id number] / [id number] Target 360 Ultra Detachable Coil Cranium [place] 04/29/2021 [id number] / Implanted: Qty: 1 on 11/21/2019 by Indra Oconnor MD at [facility] ([facility]) [id number] 5 / [id number] Target 360 Ultra Detachable Coil Cranium [place] 05/03/2021 [id number] / Implanted: Qty: 1 on 11/21/2019 by Indra Oconnor MD at [facility] ([facility]) [id number] 0 / [id number] documented as of this encounter Results Not on filedocumented in this encounter Visit Diagnoses Diagnosis Stenosis of carotid artery, unspecified laterality documented in this encounter Insurance Payer Benefit Plan / Subscriber ID Effective Dates Phone Addre ss Type Group HUMANA - HUMANA [id number] 2017-[facility] Adv MANAGED MEDICARE ERS t PPO MEDICARE [phone] [address] [address] ([place]) [place] [address] documented as of this encounter Advance Directives Type Date Recorded Patient Corporate Affairs Manager Explanati on Power of Application Integration Architect 11/21/2019 1:38 PM Power of Application Integration Architect 11/21/2019 1:40 PM
--- OUTSIDE RECORDS SUMMARY | 2020-02-01 08:16 | XMS REPORT | Summary of Care ---
:1940 Author Organization [facility] Address [address] [place] [address] Care Team Providers Name Role Phone Selene Primary Care Provider Reason for Visit Reason Comments LAB WORK Auth/Cert Status Reason Specialty Diagnoses / Referred By Referred To Procedures Contact Contact Clinical Medical Diagnoses PRE OP Adc Lab Laboratory Procedures PRE OP COVID TEST [address] [place] [address] Encounter Details Date Type Department Care Team Description 01/15/2020 Laboratory Only [facility] Patricia Rose, TRACTOR DISTRIBUTOR [address] [place] [address] Preop testing (Primary Dx); Phlebotomy Only, Adc Test Stenosis of carotid artery, unspecified laterality ; Lab-[place] Pre-op exam [address] [place] [address] Allergies Active Allergy Reactions Severity Noted Date [...] in contact with No / Unsure 01/15/2020 10:07 AM CDT someone who was confirmed or suspected to have Coronavirus / COVID-19? documented as of this encounter Last Filed Vital Signs Not on filedocumented in this encounter Nursing Notes Tyron Noel - 01/15/2020 10:30 AM CDT Venipuncture collection performed by clean technique on the left anticubitus. Total of 1 attempts were made. Slight pressure and a bandage/dressing were applied to the site(s). The patient experienced no complications. The following specimens were processed according to instructions and sent to [facility] laboratories per lab order on today: LT BLUE 1 SST 1 RED LAV 1 PPT DK GREEN (LiHep) DK GREEN (SodH) PRAJAPATI DK BLUE (K2) DK BLUE (S) ACD Blood Culture NIPT/NTD Notified patient and her daughter that the 2 [facility] tests can only be performed in [place] per Client services. documented in this encounter Plan of Treatment Date Type Specialty Care Team Description 01/23/2020 Appointment Radiology Patricia Rose, TRACTOR DISTRIBUTOR [address] [place] [address] Name Type Priority Associated Diagnoses Date/Ti me CBC WITH DIFF LAB Routine Stenosis of carotid 020 10:32 AM artery, unspecified CDT laterality Pre-op exam BASIC METABOLIC PANEL LAB Routine Stenosis of carotid 01/15/2020 10:32 AM (NA, K, CL, CO2, GLUCOSE, artery, unspeci fied CDT BUN, CREATININE, CA) laterality Pre-op exam PROTHROMBIN TIME / INR LAB Routine Stenosis of caroti d 01/15/2020 10:32 AM artery, unspecified CDT laterality Pre-op exam aPTT LAB Routine Stenosis of carotid 01/15/20 20 10:32 AM artery, unspecified CDT laterality Pre-op exam COVID-19 (PCR MOLECULAR LAB Routine Stenosis of carot id 01/15/2020 10:33 AM TESTING) artery, unspecified CDT laterality Pre-op exam Preop testing Name Type Priority Associated Diagnoses Order S marlo COVID-19 (PCR MOLECULAR LAB Routine Stenosis of carot id Expected: 01/15/2020, TESTING) artery, unspecified Expires: 01/14/2021 laterality Pre-op exam Preop testing Health Maintenance Due Date Last Done Comments [...] of this encounter Implants Implanted Type Area Rn Provider Relations Device Shelf Model / Serial Identifier Expiration / Lot Date [employer] Cement W/ Gent CEMENT Left: Knee Vinny 80-9027-252-01 / Implanted: Qty: 1 on 04/01/2016 by Flex Penaloza MD at [facility] 8 [id number] / [id number] [employer] Cement W/ Gent CEMENT Left: Knee Vinny 52-9003-991-01 / Implanted: Qty: 1 on 04/01/2016 by Flex Penaloza MD at [facility] 8 [id number] / [id number] Ps Open Box Femoral-Left Femur Left: Knee Biomet 11/0 06/2025 [id number] / Implanted: Qty: 1 on 04/01/2016 by Flex Penaloza MD at [facility] J [id number] / [id number] Fixed Cruciate Tibial Plate KNEE Left: Knee Biomet 0 09/18/2025 [id number] / Implanted: Qty: 1 on 04/01/2016 by Flex Penaloza MD at [facility] J [id number] / [id number] Ps Tibial Bearing KNEE Left: Knee Biomet 06/25/2020 [id number] / Implanted: Qty: 1 on 04/01/2016 by Flex Penaloza MD at [facility] 3 [id number] / [id number] Lens, Raf #Sn60wf - [id number] LENS Left: Eye Raf 06/09/2022 SN60WF / Implanted: Qty: 1 on 12/09/2017 by Benjamin Rodriguez MD at [facility] 8 [id number] / [id number] Lens, Raf #Sn60wf - [id number] LENS Right: Eye Raf 08/09/2022 SN60WF / Implanted: Qty: 1 on 12/23/2017 by Benjamin Rodriguez MD at [facility] 8 [id number] / [id number] Neuroform [place] STENT N/A: [place] 08/17/2023 UZA [id number] / Implanted: Qty: 1 on 11/21/2019 by Indra Oconnor MD at [facility] ([facility]) Cranium [id number] 605 / [id number] Adc Patella 28 X 8 Mm - [id number] Left: Knee Biomet 11/01/2020 [id number] / Implanted: Qty: 1 on 04/01/2016 by Flex Penaloza MD at [facility] 9 [id number] / [id number] Target 360 Ultra Detachable Coil Cranium [place] 04/29/2021 [id number] / Implanted: Qty: 1 on 11/21/2019 by Indra Oconnor MD at [facility] ([facility]) [id number] Target 360 Ultra Detachable Coil Cranium [place] 05/03/2021 [id number] / Implanted: Qty: 1 on 11/21/2019 by Indra Oconnor MD at [facility] ([facility]) [id number] documented as of this encounter Results Not on filedocumented in this encounter Visit Diagnoses Diagnosis Preop testing - Primary Preoperative examination, unspecified Stenosis of carotid artery, unspecified laterality Pre-op exam Preoperative examination, unspecified documented in this encounter Insurance Payer Benefit Plan / Subscriber ID Effective Dates Phone Addre ss Type Group HUMANA - HUMANA [id number] 2017-[facility] MANAGED MEDICARE ERS t PPO MEDICARE [phone] [address] ([place], [place] [address] documented as of this encounter Advance Directives Type Date Recorded Patient Tow Mate Explanati on Power of Baseball Coach 11/21/2019 1:38 PM Power of Baseball Coach 11/21/2019 1:40 PM
--- OUTSIDE RECORDS SUMMARY | 2020-02-01 08:17 | XMS REPORT | Summary of Care ---
:1940 Author Organization [facility] Address [address] [place] [address] Care Team Providers Name Role Phone Selene Primary Care Provider Encounter Details Date Type Department Care Team Description 01/22/2020 Orders Only [facility] Doctor Unassigned, No [address] [facility] [place] [address] [address] [place] [address] Allergies Active Allergy Reactions Severity Noted Date [...] as of this encounter (statuses as of 01/22/2020) Medications Medication Sig Dispensed Refills Start Date End Date Status aspirin 81 mg chewable Take 1 tablet by 60 tablet 0 11/23/2019 Active tabletIndications: S/P mouth daily. aneurysm repair documented as of this encounter (statuses as of 01/22/2020) Active Problems Problem Noted Date S/P aneurysm repair 11/21/2019 Post-op pain 04/01/2016 documented as of this encounter (statuses as of 01/22/2020) Immunizations Name Administration Dates Next Due Pneumococcal [...] 01/16/2020 Anesthesia Event Radiology Deandra Young, RN [address] [place] [address] 01/22/2020 Ged Tutor Visit Phlebotomy ElvinIndra MD [address] [place] [address] Pob, Adc Lab Main 01/23/2020 Hospital Encounter Radiology Herson Rose C, BUSHER HELPER [address] [place], [place] [address] 02/01/2020 Office Visit Urology Gioavny Burnett M D [address] [facility] [address] [place], [place] [address] Health Maintenance Due Date Last Done Comments [...] of this encounter Implants Implanted Type Area Eyelet Operator Device Shelf Model / Serial Identifier Expiration / Lot Date Pal[employer] Cement W/ Gent CEMENT Left: Knee Vinny 31-7188-723-01 / Implanted: Qty: 1 on 04/01/2016 by Flex Penaloza MD at [facility] 8 [id number] / [id number] Pal[employer] Cement W/ Gent CEMENT Left: Knee Vinny 22-4451-929-01 / Implanted: Qty: 1 on 04/01/2016 by Flex Penaloza MD at [facility] 8 [id number] / [id number] Ps Open Box Femoral-Left Femur Left: Knee Biomet 11/0 06/2025 [id number] / Implanted: Qty: 1 on 04/01/2016 by Flex Penaloza MD at [facility] J [id number] / [id number] Fixed Cruciate Tibial Plate KNEE Left: Knee Biomet 0 09/18/2025 [id number] / Implanted: Qty: 1 on 04/01/2016 by Flex Penaloza MD at [facility] J [id number] / [id number] Ps Tibial Bearing KNEE Left: Knee Biomet 06/25/2020 472615 / Implanted: Qty: 1 on 04/01/2016 by Flex Penaloza MD at [facility] 3 [id number] / [id number] Lens, Raf #Sn60wf - [id number] LENS Left: Eye Raf 06/09/2022 SN60WF / Implanted: Qty: 1 on 12/09/2017 by Benjamin Rodriguez MD at [facility] 5 [id number] / [id number] Lens, Raf #Sn60wf - [id number] LENS Right: Eye Raf 08/09/2022 SN60WF / Implanted: Qty: 1 on 12/23/2017 by Benjamin Rodriguez MD at [facility] 5 [id number] / [id number] Neuroform [place] STENT N/A: [place] 08/17/2023 UZA S3024 / Implanted: Qty: 1 on 11/21/2019 by Indra Oconnor MD at [facility] ([facility]) Cranium 21644 605 / [id number] Adc Patella 28 X 8 Mm - [id number] Left: Knee Biomet 11/01/2020 853249 / Implanted: Qty: 1 on 04/01/2016 by Flex Penaloza MD at [facility] 9 [id number] / [id number] Target 360 Ultra Detachable Coil Cranium [place] 04/29/2021 [id number] / Implanted: Qty: 1 on 11/21/2019 by Indra Oconnor MD at [facility] ([facility]) [id number] Target 360 Ultra Detachable Coil Cranium [place] 05/03/2021 [id number] / Implanted: Qty: 1 on 11/21/2019 by Indra Oconnor MD at [facility] ([facility]) [id number] documented as of this encounter Procedures Procedure Name Priority Date/Time Associated Diagnosis Comme nts ASSIGNMENT OF BENEFITS Routine 01/22/2020 12:33 PM CDT documented in this encounter Results Not on filedocumented in this encounter Insurance Payer Benefit Plan / Subscriber ID Effective Dates Phone Addre ss Type Group HUMANA - HUMANA [id number] 2017-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
--- OUTSIDE RECORDS SUMMARY | 2020-02-01 08:18 | XMS REPORT | Summary of Care ---
:1940 Author Organization [facility] Address [address] [place] [address] Care Team Providers Name Role Phone Selene Primary Care Provider Reason for Visit Reason Comments LAB WORK Auth/Cert Status Reason Specialty Diagnoses / Procedures Referred By Umang philippe Referred To Contact Radiology Clc Ir [address] [place] [address] Phone: Fax: Encounter Details Date Type Department Care Team Description 01/22/2020 Dough Sheeter Visit [facility] Elvin, Indra Avendaño MD [address] [facility] [address] [place] [address] Pre-operative Professional Office Pob, Adc Lab Main clearance (Primary Building Phlebotomy Dx) Lab Professional Office Building [address] [place] [address] , [address] [place] [address] Allergies Active Allergy Reactions Severity [...] been in contact with No / Unsure 01/22/2020 12:33 PM CDT someone who was confirmed or suspected to have Coronavirus / COVID-19? documented as of this encounter Last Filed Vital Signs Not on filedocumented in this encounter Nursing Notes Alcira Beckwith - 01/22/2020 1:00 PM CDTcovid documented in this encounter Plan of Treatment Date Type Specialty Care Team Description 01/16/2020 Anesthesia Event Radiology Deandra Young, RN [address] [place] [address] 01/23/2020 Hospital Encounter Radiology Herson Rose C, BACK MAKER [address] [place], [place] [address] 02/01/2020 Office Visit Urology Giovany Burnett M D [address] [facility] [address] [place], [place] [address] Name Type Priority Associated Diagnoses Order S chedule COVID-19 (ID NOW RAPID LAB Routine Pre-operative douglas romero Expected: 01/22/2020, TESTING) Expires: 2020 Health Maintenance Due Date Last Done Comments [...] of this encounter Implants Implanted Type Area Compression Molding Machine Operator Device Shelf Model / Serial Identifier Expiration / Lot Date Pal[employer] R[employer] Cement W/ Gent CEMENT Left: Knee Vinny 1113-140-01 / Implanted: Qty: 1 on 04/01/2016 by Flex Penaloza MD at [facility] 8 [id number] / [id number] Pal[employer]os R&[employer] Cement W/ Gent CEMENT Left: Knee Vinny -1113-140-01 / Implanted: Qty: 1 on 04/01/2016 by Flex Penaloza MD at [facility] 8 [id number] / [id number] Ps Open Box Femoral-Left Femur Left: Knee Biomet 11/0 06/2025 [id number] / Implanted: Qty: 1 on 04/01/2016 by Flex Penaloza MD at [facility] J [id number] / [id number] Fixed Cruciate Tibial Plate KNEE Left: Knee Biomet 0 09/18/2025 859374 / Implanted: Qty: 1 on 04/01/2016 by Flex Penaloza MD at [facility] J [id number] / [id number] Ps Tibial Bearing KNEE Left: Knee Biomet 06/25/2020 849798 / Implanted: Qty: 1 on 04/01/2016 by Flex Penaloza MD at [facility] 3 [id number] / [id number] Lens, Raf #Sn60wf - [id number] LENS Left: Eye Raf 06/09/2022 SN60WF / Implanted: Qty: 1 on 12/09/2017 by Benjamin Rodriguez MD at [facility] 8 [id number] / [id number] Lens, Raf #Sn60wf - [id number] LENS Right: Eye Raf 08/09/2022 SN60WF / Implanted: Qty: 1 on 12/23/2017 by Benjamin Rodriguez MD at [facility] 3 [id number] / [id number] Neuroform [place] STENT N/A: [place] 08/17/2023 UZA S3024 / Implanted: Qty: 1 on 11/21/2019 by Indra Oconnor MD at [facility] ([facility]) Cranium [id number] 605 / [id number] Adc Patella 28 X 8 Mm - [id number] Left: Knee Biomet 11/01/2020 [id number] / Implanted: Qty: 1 on 04/01/2016 by Flex Penaloza MD at [facility] 9 [id number] / [id number] Target 360 Ultra Detachable Coil Cranium [place] 04/29/2021 [id number] / Implanted: Qty: 1 on 11/21/2019 by Indra Oconnor MD at [facility] ([facility]) 63031 5 / [id number] Target 360 Ultra Detachable Coil Cranium [place] 05/03/2021 [id number] / Implanted: Qty: 1 on 11/21/2019 by Indra Oconnor MD at [facility] ([facility]) [id number] 0 / [id number] documented as of this encounter Results Not on filedocumented in this encounter Visit Diagnoses Diagnosis Pre-operative clearance - Primary Preoperative examination, unspecified documented in this encounter Additional Health Concerns Infection Onset Date Last Indicated Resolved Time COVID-19 Rule Out 01/22/2020 01/22/2020 documented as of this encounter Insurance Payer Benefit Plan / Subscriber ID Effective Dates Phone Addre ss Type Group HUMANA - HUMANA [id number] 2017-[facility] Adv MANAGED MEDICARE ERS t PPO MEDICARE [phone] [address] [address] ([place]) [place] [address] documented as of this encounter Advance Directives Type Date Recorded 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
--- OUTSIDE RECORDS SUMMARY | 2020-02-01 08:18 | XMS REPORT | Summary of Care ---
:1940 [address] Organization [facility] Address [address] [place] [id number] Care Team Providers Name Role Phone Selene Primary Care Provider Reason for Visit Reason Comments Assessment Encounter Details Date Type Department Care Team Description 01/24/2020 Telephone [facility] Mirela, Kirill Oconnor MD Assessment [address], [address] [facility] [place] [address] [place] [address] [phone] Allergies Active Allergy Reactions Severity Noted Date [...] as of this encounter (statuses as of 01/24/2020) Medications Medication Sig Dispensed Refills Start Date End Date Status aspirin 81 mg Take 1 tablet by 60 tablet 0 11/23/2019 Suspended chewable mouth daily. tabletIndications: S/P aneurysm repair Additional Information aspirin 325 mg tablet Take 325 mg by mouth. 0 Suspended warfarin 5 mg tablet warfarin 5 mg tablet 0 Suspended traMADoL 50 mg tablet tramadol 50 mg tablet 0 Suspended Take 1 tablet every 8 hours by oral route for 10 days. torsemide 20 mg tablet Take 20 mg by mouth. 0 Suspended torsemide 10 mg tablet Take 10 mg by mouth. 0 Suspended BRILINTA 90 mg tablet 0 01/15/2020 Suspended ticagrelor 90 mg tablet Take 90 mg by mouth. 0 Suspended tamsulosin 0.4 mg 24 hr Take 0.4 mg by mouth. 0 05/13 Suspended capsule rivaroxaban (XARELTO) 20 Xarelto 20 mg tablet 0 Suspended mg tablet ranitidine 150 mg capsule Take 150 mg by mouth. 0 Suspended PARoxetine 10 mg tablet paroxetine 10 mg tablet 0 Suspended pantoprazole 40 mg EC Take 40 mg by mouth. 0 020 Suspended tablet oxybutynin chloride 5 mg Take 5 mg by mouth 2 0 12/12 Suspended tablet (two) times daily. omeprazole-sodium omeprazole 40 mg-sodium 0 Suspended bicarbonate 40-1.1 bicarbonate 1.1 gram mg-gram per capsule capsule nebivoloL 10 mg tablet Take 20 mg by mouth. 0 Suspended Nebivolol (BYSTOLIC) 20 Bystolic 20 mg tablet 0 Suspended mg tablet metroNIDAZOLE 500 mg metronidazole 500 mg 0 Suspended tablet tablet metoprolol tartrate 100 metoprolol tartrate 100 0 Suspended mg tablet mg tablet metformin ER 500 mg 24 hr TAKE 1 TABLET BY MOUTH 0 0 10/30/2019 Suspended tablet EVERY DAY AFTER EVENING MEAL metFORMIN 500 mg tablet Take 500 mg by mouth. 0 Suspended melatonin 10 mg Tab Take 10 mg by mouth. 0 0 Suspended losartan-hydrochlorothiaz losartan 100 0 Suspended yumi 100-12.5 mg per mg-hydrochlorothiazide tablet 12.5 mg tablet losartan 100 mg tablet losartan 100 mg tablet 0 Suspended levothyroxine 50 mcg Take 50 mcg by mouth. 0 020 Suspended tablet levothyroxine (SYNTHROID) Synthroid 50 mcg tablet 0 Suspended 50 mcg tablet labetaloL 200 mg tablet labetalol 200 mg tablet 0 Suspended hydrALAZINE 50 mg tablet hydralazine 50 mg tablet 0 Suspended hydrALAZINE 100 mg tablet Take 100 mg by mouth 3 0 0 12/12/2019 Suspended (three) times daily. hydrALAZINE 100 mg tablet hydralazine 100 mg 0 05/29 Suspended tablet glimepiride 2 mg tablet Take 2 mg by mouth 0 020 Suspended daily. gabapentin 100 mg capsule gabapentin 100 mg 0 Suspended capsule gabapentin 300 mg capsule Take 300 mg by mouth 3 0 0 01/06/2020 Suspended (three) times daily. gabapentin 300 mg capsule Take 300 mg by mouth. 0 Suspended furosemide 20 mg tablet furosemide 20 mg tablet 0 Suspended doxepin 25 mg capsule Take 25 mg by mouth. 0 Suspended colchicine 0.6 mg tablet colchicine 0.6 mg tablet 0 Suspended cloNIDine 0.2 mg tablet clonidine HCl 0.2 mg 0 05/29 Suspended tablet cloNIDine 0.1 mg tablet clonidine HCl 0.1 mg 0 Suspended tablet cloNIDine 0.3 mg tablet 0 01/21/2020 Suspended ciprofloxacin HCl 500 mg ciprofloxacin 500 mg 0 Suspended tablet tablet cefUROXime 250 mg tablet Take 250 mg by mouth 2 0 Suspended (two) times daily. ACCU-CHEK MAGDI PLUS TEST CHECK GLUCOSE ONCE DAILY 0 12/16/2019 Suspended STRP strip ICD E11.9 (TABLET TAKING PATIENTS) BRAND ASK PATIENT baclofen 10 mg tablet baclofen 10 mg tablet 0 Suspended EDARBI 80 mg Tab 0 01/16/2020 Mckenzie spended azilsartan 80 mg Tab Take 80 mg by mouth. 0 Suspended atorvastatin 80 mg tablet Take 80 mg by mouth 0 11/10 Suspended daily. atorvastatin 80 mg tablet Take 80 mg by mouth. 0 05/28/2020 Suspended amLODIPine 2.5 mg tablet amlodipine 2.5 mg tablet 0 Suspended ALPRAZolam 0.5 mg tablet alprazolam 0.5 mg tablet 0 Suspended allopurinoL 300 mg tablet allopurinol 300 mg 0 Suspended tablet allopurinoL 100 mg tablet 0 01/15/2020 Suspended allopurinoL 100 mg tablet allopurinol 100 mg 0 Suspended tablet albuterol 90 Inhale 2 Puffs. 0 S uspended mcg/actuation inhaler documented as of this encounter (statuses as of 01/24/2020) Active Problems Problem Noted Date Vertebral artery stenosis 01/23/2020 S/P aneurysm repair 11/21/2019 Post-op pain 04/01/2016 documented as of this encounter (statuses as of 01/24/2020) Immunizations Name Administration Dates Next Due Pneumococcal [...] Telephone Encounter - Erna Pereyra RN - 01/24/2020 8:56 AM CDTPatient is admitted to the hospital. Ms. Grady is the POA who has not been contacted sot that the nurses can update her medication list as the patient's BP is very high. Daughter states that no one has contacted her. Called POINTER HELPER Marta who will call Ms. Grady so that she can handle this issue. Marta stated that she will be calling the patient momentarily. elephone Encounter - Marilyn Post - 01/24/2020 8:43 AM CDTBlenyluci [place] is a 79 year old female needing to speak with a nurse in the clinic, says patient's BP is extremely high and she is unable to speak to the nurse where the patient is hospitalized and patient is having severe headaches. Please call. [phone] documented in this encounter Plan of Treatment Date Type Specialty Care Team Description 02/01/2020 Office Visit Urology Giovany Burnett M D 0 [facility] [address] [place], [place] [id number] Health Maintenance Due Date Last Done Comments [...] of this encounter Implants Implanted Type Area Circuit [employer] Judge Device Shelf Model / Serial Identifier Expiration / Lot Date [employer] W/ Gent CEMENT Left: Knee Vinny -1113-140-01 / Implanted: Qty: 1 on 04/01/2016 by Flex Penaloza MD at [facility] 8 [id number] / [id number] [employer] W/ Gent CEMENT Left: Knee Vinny -1113-140-01 / Implanted: Qty: 1 on 04/01/2016 by Flex Penaloza MD at [facility] 8 [id number] / [id number] Ps Open Box Femoral-Left Femur Left: Knee Biomet 11/0 06/2025 [id number] / Implanted: Qty: 1 on 04/01/2016 by Flex Penaloza MD at [facility] J [id number] / [id number] Fixed Cruciate Tibial Plate KNEE Left: Knee Biomet 0 09/18/2025 [id number] / Implanted: Qty: 1 on 04/01/2016 by Flex Penaloza MD at [facility] J [id number] / [id number] Ps Tibial Bearing KNEE Left: Knee [employer]omet 06/25/2020 [id number] / Implanted: Qty: 1 on 04/01/2016 by Flex Penaloza MD at [facility] 3 [id number] / [id number] Lens, Raf #Sn60wf - [id number] LENS Left: Eye Raf 06/09/2022 [id number] / Implanted: Qty: 1 on 12/09/2017 by Benjamin Rodriguez MD at [facility] 2 [id number] / [id number] Lens, Raf #Sn60wf - [id number] LENS Right: Eye Raf 08/09/2022 [id number] / Implanted: Qty: 1 on 12/23/2017 by Benjamin Rodriguez MD at [facility] 9 [id number] / [id number] Neuroform Enola STENT N/A: [employer]way 08/17/2023 UZA [id number] / Implanted: Qty: 1 on 11/21/2019 by Indra Oconnor MD at [facility] ([facility]) Cranium [id number] / [id number] Xience Yanelis Everolimus Eluding Coronary Stent System STENT N/A: Aguilar [id number] / Implanted: Qty: 1 on 01/23/2020 at [facility] ([facility]) [employer] [id number] / [id number] Adc Patella 28 X 8 Mm - [id number] Left: Knee Biomet 11/01/2020 [id number] / Implanted: Qty: 1 on 04/01/2016 by Flex Penaloza MD at [facility] 9 [id number] / [id number] [employer] 360 Ultra Detachable Coil Cranium Fransisca 04/29/2021 [id number] / Implanted: Qty: 1 on 11/21/2019 by Indra Oconnor MD at [facility] [id number] / [id number] [employer] 360 Ultra Detachable Coil Cranium Solway 05/03/2021 [id number] / Implanted: Qty: 1 on 11/21/2019 by Indra Oconnor MD at [facility]) [id number] / [id number] documented as of this encounter Results Not on filedocumented in this encounter Insurance Payer Benefit Plan / Subscriber ID Effective Dates Phone Addre ss Type Group HUMANA - HUMANA [id number] 2017-[facility] MANAGED MEDICARE ERS t PPO MEDICARE documented as of this encounter Advance Directives Type Date Recorded 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
--- OUTSIDE RECORDS SUMMARY | 2020-02-01 08:19 | XMS REPORT | Summary of Care ---
:1940 Author Organization [facility] Address [address] [place] [address] Care Team Providers Name Role Phone Selene Primary Care Provider Reason for Referral (Routine) Status Reason Specialty Diagnoses / Referred By Referred To Procedures Contact Contact New Request Diagnoses S/P aneurysm repair Casa Morton Rajesh V Procedures Discharge Follow-up: PCP CASA MORTON V; 3-[facility] [address] [facility] [facility] [address] [place] [id number] Phone: Radiology Services (Routine) Status Reason Specialty Diagnoses / Procedures Referred By Gurdeep bazzi To Contact Contact Closed Diagnostic Diagnoses Congenital anomaly of cerebrovascular system Stenosis of carotid artery, unspecified laterality [place], Radiology Procedures IR INTRAVASCULAR STENT WITHOUT DISTAL EMBOLIC PROTECTION IR INTRAVASCULAR STENT WITH DISTAL EMBOLIC PROTECTION POLO [facility] [address] [place] [address] Reason for Visit Auth/Cert Status Reason Specialty Diagnoses / Procedures Referred By Umang philippe Referred To Contact Radiology [facility] [address] [place] [address] Phone: Fax: Encounter Details Date Type Department Care Team Description 01/23/2020 - Hospital [facility] Unknown, Attending Vertebral artery 01/24/2020 Encounter Intensive Care ElvinIndra MD [address] [place] [id number] stenosis Unit CLC 4C Kathleen Campbell, RN [address] [place] [address] [address] Catalino Campbell [address] [place] [address] [place] [address] Allergies Active Allergy Reactions Severity [...] Dispensed Refills Start Date End Date Status traMADoL 50 mg tramadol 50 mg tablet 0 Active tablet Take 1 tablet every 8 hours by oral route for 10 days. torsemide 20 mg Take 20 mg by 0 Active tablet mouth. tamsulosin 0.4 mg Take 0.4 mg by 0 05/30/2019 Active 24 hr capsule mouth. PARoxetine 10 mg paroxetine 10 mg 0 Active tablet tablet oxybutynin Take 5 mg by mouth 0 01/03/2020 Active chloride 5 mg 2 (two) times tablet daily. omeprazole-sodium omeprazole 40 0 Active bicarbonate 40-1.1 mg-sodium mg-gram per bicarbonate 1.1 capsule gram capsule nebivoloL 10 mg Take 20 mg by 0 Active tablet mouth. metoprolol metoprolol 0 Active tartrate 100 mg tartrate 100 mg tablet tablet metFORMIN 500 mg Take 500 mg by 0 Active tablet mouth. melatonin 10 mg Take 10 mg by 0 05/29/2019 Active Tab mouth. losartan 100 mg losartan 100 mg 0 Active tablet tablet levothyroxine Synthroid 50 mcg 0 Active (SYNTHROID) 50 mcg tablet tablet labetaloL 200 mg labetalol 200 mg 0 Active tablet tablet hydrALAZINE 100 mg Take 100 mg by 0 12/12/2019 Active tablet mouth 3 (three) times daily. hydrALAZINE 100 mg hydralazine 100 mg 0 05/29/2019 Active tablet tablet glimepiride 2 mg Take 2 mg by mouth 0 01/09/2020 Active tablet daily. gabapentin 100 mg gabapentin 100 mg 0 Active capsule capsule furosemide 20 mg furosemide 20 mg 0 Active tablet tablet doxepin 25 mg Take 25 mg by 0 Ac tive capsule mouth. colchicine 0.6 mg colchicine 0.6 mg 0 Active tablet tablet cloNIDine 0.1 mg clonidine HCl 0.1 0 Active tablet mg tablet ACCU-CHEK MAGDI CHECK GLUCOSE ONCE 0 12/16/2019 Active PLUS TEST STRP DAILY ICD E11.9 strip (TABLET TAKING PATIENTS) BRAND ASK PATIENT baclofen 10 mg baclofen 10 mg 0 Active tablet tablet EDARBI 80 mg Tab 0 01/16/2020 Ac tive azilsartan 80 mg Take 80 mg by 0 Active Tab mouth. atorvastatin 80 mg Take 80 mg by 0 11/23/2019 Active tablet mouth daily. amLODIPine 2.5 mg amlodipine 2.5 mg 0 Active tablet tablet ALPRAZolam 0.5 mg alprazolam 0.5 mg 0 Active tablet tablet allopurinoL 100 mg 0 01/15/2020 Active tablet albuterol 90 Inhale 2 Puffs. 0 A ctive mcg/actuation inhaler aspirin 81 mg EC Take 1 tablet by 30 tablet 0 01/25/2020 Active tabletIndications: mouth daily. S/P aneurysm repair ticagrelor 90 mg Take 1 tablet by 30 tablet 0 01/24/2020 Active tabletIndications: mouth 2 (two) S/P aneurysm times daily. repair aspirin 81 mg Take 1 tablet by 60 tablet 0 11/23/2019 01/24/20 Discontinued chewable mouth daily. 20 tabletIndications: S/P aneurysm repair aspirin 325 mg Take 325 mg by 0 01/24/20 Discontinued tablet mouth. 20 warfarin 5 mg warfarin 5 mg 0 01/24/20 Di scontinued tablet tablet 20 torsemide 10 mg Take 10 mg by 0 01/24/20 Discontinued tablet mouth. 20 BRILINTA 90 mg 0 01/15/2020 01/24/20 Disc ontinued tablet 20 ticagrelor 90 mg Take 90 mg by 0 01/24/20 Discontinued tablet mouth. 20 rivaroxaban Xarelto 20 mg 0 01/24/20 Disc ontinued (XARELTO) 20 mg tablet 20 tablet ranitidine 150 mg Take 150 mg by 0 0 Discontinued capsule mouth. 20 pantoprazole 40 mg Take 40 mg by 0 05/29/2019 Discontinued EC tablet mouth. 20 Nebivolol Bystolic 20 mg 0 01/24/20 Disco ntinued (BYSTOLIC) 20 mg tablet 20 tablet metroNIDAZOLE 500 metronidazole 500 0 01/10 07/30 Discontinued mg tablet mg tablet 20 metformin ER 500 TAKE 1 TABLET BY 0 10/30/201901/23 Discontinued mg 24 hr tablet MOUTH EVERY DAY 20 AFTER EVENING MEAL losartan-hydrochlo losartan 100 0 01/24/20 Discontinued rothiazide mg-hydrochlorothia 20 100-12.5 mg per zide 12.5 mg tablet tablet levothyroxine 50 Take 50 mcg by 0 12/21/2019 0 Discontinued mcg tablet mouth. 20 hydrALAZINE 50 mg hydralazine 50 mg 0 01/10 07/30 Discontinued tablet tablet 20 gabapentin 300 mg Take 300 mg by 0 01/06/2020 Discontinued capsule mouth 3 (three) 20 times daily. gabapentin 300 mg Take 300 mg by 0 0 Discontinued capsule mouth. 20 cloNIDine 0.2 mg clonidine HCl 0.2 0 05/29/201901/10 Discontinued tablet mg tablet 20 cloNIDine 0.3 mg 0 01/21/2020 01/24/20 Di scontinued tablet 20 ciprofloxacin HCl ciprofloxacin 500 0 01/10 07/30 Discontinued 500 mg tablet mg tablet 20 cefUROXime 250 mg Take 250 mg by 0 12/11/2019 Discontinued tablet mouth 2 (two) 20 times daily. atorvastatin 80 mg Take 80 mg by 0 05/29/2019 Discontinued tablet mouth. 20 allopurinoL 300 mg allopurinol 300 mg 0 Discontinued tablet tablet 20 allopurinoL 100 mg allopurinol 100 mg 0 Discontinued tablet tablet 20 documented as of this encounter (statuses as [...] Sign Reading Time Taken Comments Blood Pressure 176/74 01/24/2020 9:00 AM CDT Pulse 88 01/24/2020 9:00 AM CDT Temperature 37 C (98.6 F) 01/24/2020 8:00 AM CDT Respiratory Rate 19 01/24/2020 9:00 AM CDT Oxygen Saturation 96% 01/24/2020 9:00 AM CDT Inhaled Oxygen Concentration - - Weight 90 kg (198 lb 6.6 oz) 01/23/2020 12:45 PM CDT Height 167.6 cm (5' 6") 01/23/2020 2:26 PM CDT Body Mass Index 32.02 01/23/2020 12:45 PM CDT documented in this encounter Discharge Instructions AttachmentsThe following attachments cannot be sent through Care Everywhere. Brain Aneurysms, Bleeding ([place] African)Carotid Artery Disease ([place] African)Stroke, Preventing Recurrent with a Healthier Lifestyle ([place] African)documented in this encounter H&P Notes Flo Richardson MD - 01/23/2020 2:24 PM CDT MEDICINE CLS ADMIT H&P PCP: Casa Morton Date of Service: 01/23/2020 CHIEF COMPLAINT: Patient was admitted to the ICU status post right vertebral artery stent HISTORY OF PRESENT ILLNESS 79-year-old female patients with past medical history all atrial fibrillation, previous history of ischemic stroke, DVT, dyslipidemia and hypertension who was admitted to the hospital for elective right vertebral artery stent, procedure went well and patient sent to the ICU for close monitoring, I so the patient's in the ICU after the procedure, patient had radial artery entrance, patient denied any double vision or blurry vision, patient denied any slurred speech or difficulty swallowing, patient denied any focal weakness or numbness. Patient have previous history of basal artery aneurysm PAST MEDICAL HISTORY Past Medical History: Diagnosis [...] Left 12/09/2017 Surgeon: Benjamin Rodriguez MD; Location: [facility] OR Location PHACOEMULSIFICATION OF CATARACT WITH INTRAOCULAR LENS IMPLANT Right 12/23/2017 Surgeon: Benjamin Rodriguez MD; Location: [facility] OR Location THYROIDECTOMY Questionable - was told that her thyroid was removed at age 9 or 10 TOTAL KNEE ARTHROPLASTY Left 04/01/2016 Surgeon: Flex Marrero MD; Location: [facility] OR [facility] No family history on file. ALLERGIES Allergies [...] Prior to Encounter Medication Sig Dispense Refill ACCU-CHEK MAGDI PLUS TEST STRP strip CHECK GLUCOSE ONCE DAILY ICD E11.9 (TABLET TAKING PATIENTS) BRAND ASK PATIENT albuterol 90 mcg/actuation inhaler Inhale 2 Puffs. allopurinoL 100 mg tablet allopurinoL 100 mg tablet allopurinol 100 mg tablet allopurinoL 300 mg tablet allopurinol 300 mg tablet ALPRAZolam 0.5 mg tablet alprazolam 0.5 mg tablet amLODIPine 2.5 mg tablet amlodipine 2.5 mg tablet aspirin 325 mg tablet Take 325 mg by mouth. atorvastatin 80 mg tablet Take 80 mg by mouth daily. atorvastatin 80 mg tablet Take 80 mg by mouth. azilsartan 80 mg Tab Take 80 mg by mouth. baclofen 10 mg tablet baclofen 10 mg tablet BRILINTA 90 mg tablet cefUROXime 250 mg tablet Take 250 mg by mouth 2 (two) times daily. ciprofloxacin HCl 500 mg tablet ciprofloxacin 500 mg tablet cloNIDine 0.1 mg tablet clonidine HCl 0.1 mg tablet cloNIDine 0.2 mg tablet clonidine HCl 0.2 mg tablet cloNIDine 0.3 mg tablet colchicine 0.6 mg tablet colchicine 0.6 mg tablet doxepin 25 mg capsule Take 25 mg by mouth. EDARBI 80 mg Tab furosemide 20 mg tablet furosemide 20 mg tablet gabapentin 100 mg capsule gabapentin 100 mg capsule gabapentin 300 mg capsule Take 300 mg by mouth 3 (three) times daily. gabapentin 300 mg capsule Take 300 mg by mouth. glimepiride 2 mg tablet Take 2 mg by mouth daily. hydrALAZINE 100 mg tablet Take 100 mg by mouth 3 (three) times daily. hydrALAZINE 100 mg tablet hydralazine 100 mg tablet hydrALAZINE 50 mg tablet hydralazine 50 mg tablet labetaloL 200 mg tablet labetalol 200 mg tablet levothyroxine (SYNTHROID) 50 mcg tablet Synthroid 50 mcg tablet levothyroxine 50 mcg tablet Take 50 mcg by mouth. losartan 100 mg tablet losartan 100 mg tablet losartan-hydrochlorothiazide 100-12.5 mg per tablet losartan 100 mg- hydrochlorothiazide 12.5 mg tablet melatonin 10 mg Tab Take 10 mg by mouth. metFORMIN 500 mg tablet Take 500 mg by mouth. metformin ER 500 mg 24 hr tablet TAKE 1 TABLET BY MOUTH EVERY DAY AFTER EVENING MEAL metoprolol tartrate 100 mg tablet metoprolol tartrate 100 mg tablet metroNIDAZOLE 500 mg tablet metronidazole 500 mg tablet Nebivolol (BYSTOLIC) 20 mg tablet Bystolic 20 mg tablet nebivoloL 10 mg tablet Take 20 mg by mouth. omeprazole-sodium bicarbonate 40-1.1 mg-gram per capsule omeprazole 40 mg- sodium bicarbonate 1.1gram capsule oxybutynin chloride 5 mg tablet Take 5 mg by mouth 2 (two) times daily. pantoprazole 40 mg EC tablet Take 40 mg by mouth. PARoxetine 10 mg tablet paroxetine 10 mg tablet ranitidine 150 mg capsule Take 150 mg by mouth. rivaroxaban (XARELTO) 20 mg tablet Xarelto 20 mg tablet tamsulosin 0.4 mg 24 hr capsule Take 0.4 mg by mouth. ticagrelor 90 mg tablet Take 90 mg by mouth. torsemide 10 mg tablet Take 10 mg by mouth. torsemide 20 mg tablet Take 20 mg by mouth. traMADoL 50 mg tablet tramadol 50 mg tablet Take 1 tablet every 8 hours by oral route for 10 days. warfarin 5 mg tablet warfarin 5 mg tablet aspirin 81 mg chewable tablet Take 1 tablet by mouth daily. 60 tablet 0 SOCIAL HISTORY Social History Socioeconomic History Marital [...] file Gets together: Not on file Attends synagogue service: Not on file Active member of [...] depression, (-) psychiatric disorder PHYSICAL EXAMINATION Vitals: 01/23/20 1300 01/23/20 1315 01/23/20 1330 01/23/20 1400 BP: (!) 145/108 138/57 (!) 152/59 (!) 146/65 BP Location: Pulse: 89 89 91 89 Resp: 15 Temp: TempSrc: SpO2: 94% 94% 95% 97% Weight: Height: O2 sat: SpO2 readings for the past 24 hrs: SpO2 01/23/20 1200 100 % 01/23/20 1205 100 % 01/23/20 1210 100 % 01/23/20 1215 100 % 01/23/20 1230 97 % 01/23/20 1245 97 % 01/23/20 1300 94 % 01/23/20 1315 94 % 01/23/20 1330 95 % 01/23/20 1400 97 % I & O: Intake/Output Summary (Last 24 hours) at 01/23/2020 1424 Last data filed at 01/23/2020 1221 Gross per 24 hour Intake 300 ml Output Net 300 ml Pain Scale: General: alert and oriented x 3 ; no apparent distress, follows commands HEENT: normocephalic atraumatic, pupils equal, round, reactive to light Neck: supple, no lymphadenopathy, no bruits, no JVD Lungs: clear to auscultation bilaterally, no crackles, no wheezes, cough is strong and effective Cardio: irregular rate and rhythm, no murmurs, no gallops Abdomen: soft; non-tender; non-distended; normoactive bowel sounds Extremities: no clubbing, cyanosis, or edema, no deformities Skin: no rashes, no itching jung, no purpura, no ulcerations Neuro: cranial nerves grossly intact; sensation grossly intact; muscle strength grossly normal in all four extremities, no gaze preference system: No tenderness, no retention, no distention and no reported discharges Hematology system: No bleeds, no hemorrhages, no lymphadenopathy and no lymphedema LABS - reviewed pertinent labs as below: Recent Results (from the past 48 hour(s)) COVID-19 (ID NOW RAPID TESTING) Collection Time: 01/22/20 12:50 PM Specimen: NASOPHARYNGEAL SWAB Result Value Ref Range SARS-CoV-2 Rapid ID NOW Not Detected Not Detected Type and Screen - Routine Collection Time: 01/23/20 9:45 AM Result Value Ref Range ABO & RH A Positive IAT Negative IMAGING - reviewed, pertinent results as below: No final results containing an impression from the past 48 hours were found. EKG: Hospital Encounter 11/21/19 EKG-12 LEAD ROUTINE EKG-12 LEAD ROUTINE ASSESSMENT/PLAN Bharati Lancaster is a 79 year old female with PMH as listed above, admitted to the hospital with: Right vertebral artery stent due to vertebral artery stenosis History of basilar apex aneurysm status post coiling Chronic A. Fib Hypertension Hypothyroidism Plan Neuro check every one hour Keep systolic blood pressure between 1001 40 Aspirin and Brilinta We will hold anticoagulation for now Blood sugar control, keep numbers between 1001 80 Heart rate controlled Resume home medications DVT prophylaxis Possible discharge tomorrow documented in this encounter Nursing Notes Tawnya Ann RN - 01/24/2020 9:33 AM CDTSpoke with daughter Ysabel. We currently have all home medications on file. Daughter feels that all blood pressure medications should have been started last night. Explained that our Nurse Specialist doctor orders home medications that they need during the hospital stay. When asked what can I do now to resolve any issues. She states nothing can be done and no resolution can be had. Patient's vitals are stable. IV labetalol given once along with Norvasc. Patient is adequate for discharge. documented in this encounter Miscellaneous Notes Care Plan - Tawnya Ann RN - 01/24/2020 9:30 AM CDT Problem: Discharge Planning Goal: Absence of venous thromboembolism Outcome: Adequate for discharge Goal: Adequate for discharge Outcome: Adequate for discharge Goal: Effective communication Outcome: Adequate for discharge documented in this encounter Plan of Treatment Date Type Specialty Care Team Description 02/01/2020 Office Visit Urology Giovany Burnett M D [address] [facility] [address] [place], [place] [address] Name Type Priority Associated Diagnoses Date/Ti me MRSA / MSSA Screen by PCR, LAB MANPREET 1 2:33 PM CDT Nares Name Type Priority Associated Diagnoses Order S chedule MRSA / MSSA Screen by PCR, LAB MANPREET O NCE for 1 Occurrences Nares starting 2019 until 0 Transfusion Reaction LAB Routine FOR FOL LOW-UP TESTING Investigation until disconti nued starting 2019 Urinalysis (Spun) LAB MANPREET FOR FOLLOW -UP TESTING until discontin ued starting 2019 Health Maintenance Due Date Last Done Comments [...] of this encounter Implants Implanted Type Area Engraver Optical Frames Device Shelf Model / Serial Identifier Expiration / Lot Date [employer] W/ Gent CEMENT Left: Knee Vinny [id number] / Implanted: Qty: 1 on 04/01/2016 by Flex Penaloza MD at [facility] 8 [id number] / [id number] [employer] W/ Gent CEMENT Left: Knee Vinny [id number] / Implanted: Qty: 1 on 04/01/2016 by Flex Penaloza MD at [facility] 8 [id number] / [id number] Ps Open Box Femoral-Left Femur Left: Knee Biomet 11/0 06/2025 [id number] / Implanted: Qty: 1 on 04/01/2016 by Flex Penaloza MD at [facility] J [id number] / [id number] Fixed Cruciate Tibial Plate KNEE Left: Knee Biomet 0 09/18/2025 [id number] / Implanted: Qty: 1 on 04/01/2016 by Flex Penaloza MD at [facility] J [id number] / [id number] Ps Tibial Bearing KNEE Left: Knee [employer]omet 06/25/2020 [id number] / Implanted: Qty: 1 on 04/01/2016 by Flex Penaloza MD at [facility] 3 [id number] / [id number] Lens, Raf #[id number] - [id number] LENS Left: Eye Raf 06/09/2022 [id number] / Implanted: Qty: 1 on 12/09/2017 by Benjamin Rodriguez MD at [facility] 9 [id number] / [id number] Lens, Raf #Sn60wf - [id number] LENS Right: Eye Raf 08/09/2022 [id number] / Implanted: Qty: 1 on 12/23/2017 by Benjamin Rodriguez MD at [facility] 3 [id number] / [id number] Neuroform Centrahoma STENT N/A: Fransisca 08/17/2023 UMICHAEL [id number] / Implanted: Qty: 1 on 11/21/2019 by Indra Oconnor MD at [facility] Cranium [id number] / [id number] Xience Yanelis Everolimus Eluding Coronary Stent System STENT N/A: Aguilar [id number] / Implanted: Qty: 1 on 01/23/2020 at [facility] [employer] [id number] / [id number] Adc Patella 28 X 8 Mm - [id number] Left: Knee Biomet 11/01/2020 [id number] / Implanted: Qty: 1 on 04/01/2016 by Flex Penaloza MD at [facility] 9 [id number] / [id number] Target 360 Ultra Detachable Coil Cranium Fransisca 04/29/2021 [id number] / Implanted: Qty: 1 on 11/21/2019 by Indra Oconnor MD at [facility] ([facility]) [id number] Target 360 Ultra Detachable Coil Cranium Fransisca 05/03/2021 [id number] / Implanted: Qty: 1 on 11/21/2019 by Indra Oconnor MD at [facility] ([facility]) [id number] documented as of this encounter Procedures Procedure Name Priority Date/Time Associated Diagnosis Comme nts CBC WITH DIFF MANPREET 01/24/2020 2:35 Results fo r this AM CDT procedure are i n the results section. BASIC METABOLIC PANEL MANPREET 01/24/2020 2:35 Re sults for this (NA, K, CL, CO2, AM CDT procedure a re in GLUCOSE, BUN, the results CREATININE, CA) section. MAGNESIUM MANPREET 01/24/2020 2:35 Results for this AM CDT procedure are i n the results section. BASIC METABOLIC PANEL STAT 01/23/2020 4:41 Re sults for this (NA, K, CL, CO2, PM CDT procedure a re in GLUCOSE, BUN, the results CREATININE, CA) section. IR INTRAVASCULAR Routine 01/23/2020 11:58 Congenital anomaly o f Results for this STENT WITHOUT DISTAL AM CDT cerebrovasc ular system procedure are in EMBOLIC PROTECTION Stenosis of carotid th e results artery, unspecified section. laterality TYPE AND SCREEN Routine 01/23/2020 9:45 Results for this AM CDT procedure are i n the results section. documented in this encounter Results MAGNESIUM (01/24/2020 2:35 AM CDT) Pathologist Sig nature MAGNESIUM 2.1 1.7 - 2.4 mg/dL [facility] [[email or web address] LABORATORY [facility] Specimen Blood - LINE, VENOUS Performing Organization Address City/State/Zipcode Phone Number [facility] [[email or web address] LABORATORY CLIA: [id number] [place] [address] [facility] [address] BASIC METABOLIC PANEL (NA, K, CL, CO2, GLUCOSE, BUN, CREATININE, CA) (01/24/2020 2:35 AM CDT) NA 141 135 - 145 [facility] [[email or web address] LABORATORY mmol/L [facility] K 4.7 3.5 - 5.0 [facility] [[email or web address] LAB[facility]ATORY mmol/L [facility] CL 109 (H) 98 - 108 mmol/L [facility] CO2 TOTAL 21 (L) 23 - 31 mmol/L [facility] AGAP 11 2 - 16 [facility] BUN 38 (H) 7 - 23 mg/dL [facility] GLUCOSE 162 (H) 70 - 110 mg/dL [facility] CREATININE 1.61 (H) 0.50 - 1.04 [facility] [[email or web address] LAB[facility]ATORY mg/dL [facility] CALCIUM 9.6 8.6 - 10.6 [facility] [[email or web address] LABORATORY mg/dL [facility] eGFR Calculation 31.0 mL/min/1.73m2 [facility] (Non- [facility] Salvadorean) [place] eGFR Calculation 37.6 mL/min/1.73m2 [facility] () [facility] Specimen Blood - LINE, VENOUS Narrative Performed At [facility] of Glomerular Filtration Rate [facility] (GFR) and Staging of Kidney [...] tests). Performing Organization Address City/State/Zipcode Phone Number [facility] [[email or web address] LABORATORY CLIA: [id number] [place] [address] SERVICES-[address] CBC WITH DIFF (01/24/2020 2:35 AM CDT) [facility] nature WBC 12.02 (H) 4.30 - 11.10 [facility] 10*3/L [facility] RBC 4.10 3.93 - 5.25 [facility] 10*6/L [facility] HGB 11.2 (L) 11.6 - 15.0 [facility] g/dL [facility] HCT 37.5 35.7 - 45.2 % [facility] MCV 91.5 80.6 - 95.5 fL [facility] MCH 27.3 25.9 - 32.8 pg [facility] MCHC 29.9 (L) 31.6 - 35.1 [facility] g/dL [facility] RDW-SD 52.7 (H) 39.0 - 49.9 fL [facility] RDW-CV 15.7 (H) 12.0 - 15.5 % [facility] PLT 287 166 - 358 [facility] 10*3/L [facility] MPV 10.5 9.5 - 12.9 fL [facility] NRBC/100 WBC 0.0 0.0 - 10.0 /100 [facility] WBCs [facility] NRBC x10^3 <0.01 10*3/L [facility] GRAN MAT (NEUT) % 69.6 % [facility] IMM GRAN % 1.30 % [facility] LYMPH % 16.4 % [facility] MONO % 9.9 % [facility] EOS % 2.4 % [facility] BASO % 0.4 % [facility] GRAN MAT x10^3(ANC) 8.36 (H) 1.88 - 7.09 [facility] 10*3/uL [facility] IMM GRAN x10^3 0.16 (H) 0.00 - 0.06 [facility] 10*3/uL [facility] LYMPH x10^3 1.97 1.32 - 3.29 [facility] 10*3/uL [facility] MONO x10^3 1.19 (H) 0.33 - 0.92 [facility] 10*3/uL [facility] EOS x10^3 0.29 0.03 - 0.39 [facility] [[email or web address] LABORATORY 10*3/uL [facility] BASO x10^3 0.05 0.01 - 0.07 [facility] [[email or web address] LABORATORY 10*3/uL [facility] Specimen Blood - LINE, VENOUS Performing Organization Address City/State/Zipcode Phone Number [facility] [[email or web address] LABORATORY CLIA: [id number] [place] [address] [facility] [address] BASIC METABOLIC PANEL (NA, K, CL, CO2, GLUCOSE, BUN, CREATININE, CA) (01/23/2020 4:41 PM CDT) NA 140 135 - 145 [email or web address] LABORATORY mmol/L [facility] K 4.4 3.5 - 5.0 [email or web address] LABORATORY mmol/L [facility] CL 108 98 - 108 mmol/L [email or web address] LAB[facility]ATORY [facility] CO2 TOTAL 25 23 - 31 mmol/L [email or web address] LABORATORY [facility] AGAP 7 2 - 16 [email or web address] LAB[facility] BUN 39 (H) 7 - 23 mg/dL [email or web address] LABORATORY [facility] GLUCOSE 109 70 - 110 mg/dL [email or web address]] LABORATORY [facility] CREATININE 1.57 (H) 0.50 - 1.04 [facility] [[email or web address]] LABORATORY mg/dL [facility] CALCIUM 9.4 8.6 - 10.6 [facility] [[email or web address]] LABORATORY mg/dL [facility] eGFR Calculation 31.9 mL/min/1.73m2 [facility] (Non- [facility] Salvadorean) [place] eGFR Calculation 38.7 mL/min/1.73m2 [facility] [[email or web address]] LABORATORY () [facility] Specimen Blood - ARM, LEFT Narrative Performed At Association of Glomerular Filtration Rate [facility] (GFR) and Staging of Kidney Disease* [place] + + --+ + | GFR (mL/min/1.73 [...] tests). Performing Organization Address City/State/Zipcode Phone Number [facility] [[email or web address]] LABORATORY CLIA: [id number] [place] [address] SERVICES-[facility] [address] IR INTRAVASCULAR STENT WITHOUT DISTAL EMBOLIC PROTECTION (01/23/2020 11:58 AM CDT) Specimen Impressions Performed At Impression: PACS/VR/DOSE Successful vertebral artery stenting of the right vert ebral artery origin. No residual aneurysm seen. Mild less than 50% left carotid stent st enosis with no flow limitation. Narrative Performed At Examination: PACS/VR/DOSE 1 Cerebral angiography 2 right vertebral artery origin stenting Date of surgery January 23, 2020 Operators: Dr. Indra Oconnor Indication: Right vertebral artery origin stenosis Consent: The patient was given a full and complet e explanation of the procedure including the risks, benefits, and possible complicati ons which include but are not limited to vessel injury, vessel rupture, stro ke, infection, coma and , and may include additional procedures. Frankie keenan understood and wished to proceed. Anesthesia: Conscious sedation and local infiltratio n of the right wrist using subcutaneous and subcuticular injection of 1% lidocaine. Procedure: The patient was brought into the biplane [facility] on angiography suite and placed supine on the table. After prepping and d raping both femoral regions in the usual sterile fashion, a 21-gauge Cook micro puncture needle was used to puncture the femoral artery and after bris k return of arterial blood, a 0.018 inch wire was threaded via the needle, after the needle was withdrawn a 6-Citizen Of [place] vascular sheath was then advanced over the wire and connected to a pressurized arterial saline bag infusin g 4 units heparin/ML. A 5 Citizen [place] Weaver 2 catheter, was then advanced ove r an 0.035 inch Terumo Glidewire was used to select the followi ng arteries followed by biplane image acquisition of the same: Vessels catheterized: - Right Common Carotid Artery - Right Vertebral Artery - Left Common Carotid Artery -Left subclavian artery -Right subclavian artery Vessels imaged: Right common carotid artery, cervical, o blique AP, lateral Right internal carotid artery, intracran ial, AP, lateral Right internal carotid artery, intracran ial, biplane oblique Right external carotid artery, intracran ial, biplane, AP, lateral Left common carotid artery, cervical, ob lique AP and lateral Left internal carotid artery, intracrani al, AP, lateral Left internal carotid artery, intracrani al, biplane oblique Left external carotid artery, intracrani al, biplane, AP, lateral Right vertebral artery, intracranial, AP , lateral Left vertebral artery, intracranial, AP, lateral Intervention After diagnostic angiogram a 6 Citizen Of [place] Envoy guide cath eter was placed into the subclavian artery at the vertebral a rtery origin. We then used a microcatheter and microwire to traverse the lesion, an d then we exchanged microcatheter for a BMW exchange length wire. Over the exchange length wire a xience drug-eluting stent measured 4 x 15 mm was nisa shahbaz across lesion. It was then slowly inflated to nominal pres sure. Post deployment run shows complete patency with no residual stenos is. The catheter was removed from the patien t and images were reviewed. The right common femoral artery arterial sheath was t hen removed and groin hemostasis was achieved by compressive d evice. Patient tolerated the procedure well wit hout complications. Findings were discussed with the patient , his family and the referring physicians. Findings: - Right Common Carotid Artery: Carotid bifurcation is widely patent. Th ere is no carotid stenosis. Cervical ICA is normal. - Right Internal Carotid Artery: Normal appearance of the petrous, cavern ous and supraclinoid internal carotid arteries. The carotid terminus, anterior and middle cerebral arteries are normal. Anterior communicating artery is demonstrated well and is normal in appearance. Right External Carotid Artery: Normal anatomy and no evidence of arteri ovenous shunting or dural fistulization. - Left Common Carotid Artery: Previous carotid stent is seen there is mild less than 50% in-stent stenosis with no flow limitation. - Left Internal Carotid Artery: Normal appearance of the petrous, cavern ous and supraclinoid internal carotid arteries. The carotid terminus, anterior and middle cerebral arteries are normal. Anterior communicating artery is demonstrated well and is normal in appearance. - Left External Carotid Artery: Normal anatomy and no evidence of arter iovenous shunting or dural fistulization. - Right Subclavian Artery: The origin of the right vertebral artery has a 90% stenosis. - Right Vertebral Artery: Normal course in the cervical segment. 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 Right vertebral artery post stenting It reviewed complete resolution of the s tenosis with no vessel drop-off intracranially or in the cervical verteb ral segment. - Left Subclavian Artery: Normal anatomy with no evidence of stenosis or dissec tion. The vertebral artery is not seen Procedure Note [facility], Radiant Results Inft User - 2019 11:11 AM CDT Examination: 1 Cerebral angiography 2 right vertebral artery origin stenting Date of surgery January 23, 2020 Operators: Dr. Indra Oconnor Indication: Right vertebral artery origin stenosis Consent: The patient was given a full and complet e explanation of the procedure including the risks, benefits, and possi ble complications which include but are not limited to vessel injury, vessel rupture, stroke, infection, coma and , and may include additional pr ocedures. Patient understood and wished to proceed. Anesthesia: Conscious sedation and local infiltratio n of the right wrist using subcutaneous and subcuticular injection of 1% lidocaine. Procedure: The patient was brought into the biplane high resolution angiography suite and placed supine on the table. After p repping and draping both femoral regions in the usual sterile fashion, a 21-gauge Cook micro puncture needle was used to puncture the femoral artery and after brisk return of arterial blood, a 0.018 inch wire was threaded vi a the needle, after the needle was withdrawn a 6-Citizen [place] vascular sheath was then advanced over the wire and connected to a pressurized arterial sali ne bag infusing 4 units heparin/ML. A 5 [place] Weaver 2 catheter, was then advanced over an 0.035 inch Terumo Glidewire was used to select the followi ng arteries followed by biplane image acquisition of the same: Vessels catheterized: - Right Common Carotid Artery - Right Vertebral Artery - Left Common Carotid Artery -Left subclavian artery -Right subclavian artery Vessels imaged: Right common carotid artery, cervical, o blique AP, lateral Right internal carotid artery, intracran ial, AP, lateral Right internal carotid artery, intracran ial, biplane oblique Right external carotid artery, intracran ial, biplane, AP, lateral Left common carotid artery, cervical, ob lique AP and lateral Left internal carotid artery, intracrani al, AP, lateral Left internal carotid artery, intracrani al, biplane oblique Left external carotid artery, intracrani al, biplane, AP, lateral Right vertebral artery, intracranial, AP , lateral Left vertebral artery, intracranial, AP, lateral Intervention After diagnostic angiogram a 6 Citizen [place] En voy guide catheter was placed into the subclavian artery at the vertebral a rtery origin. We then used a microcatheter and microwire to traverse the lesion, and then we exchanged microcatheter for a BMW exchange length wire. Over the exchange length wire a xience drug-eluting stent measured 4 x 15 mm was placed across lesion. It was then slowly inflated to nominal pres sure. Post deployment run shows complete patency with no residual stenos is. The catheter was removed from the patien t and images were reviewed. The right common femoral artery arteria l sheath was then removed and groin hemostasis was achieved by compressive d evice. Patient tolerated the procedure well wit hout complications. Findings were discussed with the patient , his family and the referring physicians. Findings: - Right Common Carotid Artery: Carotid bifurcation is widely patent. Th ere is no carotid stenosis. Cervical ICA is normal. - Right Internal Carotid Artery: Normal appearance of the petrous, cavern ous and supraclinoid internal carotid arteries. The carotid terminus, anterior and middle cerebral arteries are normal. Anterior communicat ing artery is demonstrated well and is normal in appearance. Right External Carotid Artery: Normal anatomy and no evidence of arteri ovenous shunting or dural fistulization. - Left Common Carotid Artery: Previous carotid stent is seen there is mild less than 50% in-stent stenosis with no flow limitation. - Left Internal Carotid Artery: Normal appearance of the petrous, cavern ous and supraclinoid internal carotid arteries. The carotid terminus, anterior and middle cerebral arteries are normal. Anterior communicat ing artery is demonstrated well and is normal in appearance. - Left External Carotid Artery: Normal anatomy and no evidence of arter iovenous shunting or dural fistulization. - Right Subclavian Artery: The origin of the right vertebral artery has a 90% stenosis. - Right Vertebral Artery: Normal course in the cervical segment. 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 Right vertebral artery post stenting It reviewed complete resolution of the s tenosis with no vessel drop-off intracranially or in the cervical verteb ral segment. - Left Subclavian Artery: Normal anatomy with no evidence of sten osis or dissection. The vertebral artery is not seen IMPRESSION Impression: Successful vertebral artery stenting of the right vertebral artery origin. No residual aneurysm seen. Mild less than 50% left carotid stent st enosis with no flow limitation. Performing Organization Address City/State/Zipcode Phone Number PACS/VR/DOSE Type and Screen - Routine (01/23/2020 9:45 AM CDT) Pathologist Sig nature ABO & RH A Positive LAB Comment: Performed at [facility] [[email or web address]] Laboratory Services - [facility] Blood Bank [address] [place] [id number] Toll Free: [phone] CLIA No. [id number] IAT Negative LAB Comment: Performed at [facility] [[email or web address]] Laboratory Services - [facility] Blood Bank [address] [place] [id number] Toll Free: [phone] CLIA No. 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, unspecified laterality Vertebral artery stenosis Occlusion and stenosis of vertebral melo ry without mention of cerebral infarction documented in this encounter Administered Medications Medication Order MAR Action Action Date Dose Rate Site acetaminophen (TYLENOL) tablet Given 01/23/2020 11:09 PM CDT 650 mg 650 mg 650 mg, Oral, Q6HPRN, Starting Wed01/23/20 at 2305, Until Discontinued, Routine, Pain (scale 1-3) allopurinoL (ZYLOPRIM) tablet 100 mg Given 01/24/2020 8:05 AM CDT 100 mg 100 mg, Oral, DAILY, First dose on Wed01/24/20 at 0900, Until Discontinued, Routine amLODIPine (NORVASC) tablet 5 mg Given 01/24/2020 8:05 AM CDT 5 mg 5 mg, Oral, DAILY, First dose on Wed01/24/20 at 0900, Until Discontinued, Routine aspirin EC tablet 81 mg 81 mg, Oral, DAILY, First dose on Wed at 0900, Until Discontinued, Routine atorvastatin (LIPITOR) tablet 80 mg Given 01/24/2020 8:05 AM CDT 80 mg 80 mg, Oral, DAILY, First dose on Wed01/24/20 at 0900, Until Discontinued, Routine FENTanyl PF (SUBLIMAZE (PF)) injection 25 Given 01/24/2020 4:19 AM CDT 25 mcg mcg 25 mcg, Slow IV Push, Q5MIN PRN, 4 doses, Starting Wed01/23/20 at 1044, Until Discontinued, Routine, Pain (scale 4-6) labetaloL (NORMODYNE) injection 10 mg Given 01/24/2020 8:12 AM CDT 10 mg 10 mg, Slow IV Push, Q6HPRN, Starting Wed01/24/20 at 0437, Until Discontinued, Routine, SPB > 160 Given 01/24/2020 4:42 AM CDT 10 mg ondansetron (ZOFRAN (PF)) injection 4 mg 4 mg, Slow IV Push, PRN, 1 dose, Startin g Wed01/23/20 at 1044, Until Discontinued, Routine, Nausea and Vomiting (N/V) ticagrelor (BRILINTA) tablet 90 mg Given 01/24/2020 8:05 AM CDT 90 mg 90 mg, Oral, BID, First dose on Wed01/23/20 at 2000, Until Discontinued, Routine Given 01/23/2020 7:57 PM CDT 90 mg Medication Order MAR Action Action Date Dose Rate Site aspirin tablet 325 mg Given 01/24/2020 8:05 AM CDT 325 mg 325 mg, Oral, DAILY, First dose on Wed01/24/20 at 0900, Until Discontinued, Routine heparin 1,000 unit/mL Given 01/23/2020 11:01 AM CDT 2,500 Units Right Wrist injection Slow IV Push, PRN, Starting Wed01/23/20 at 1101, Until Wed01/23/20 at 1101, Routine iodixanol (VISIPAQUE 320-100 mL) injection Given 01/23/2020 2:00 PM CDT 200 mL 100 mL 100 mL, Injection, ONCE, 1 dose, Wed01/23/20 at 1400, Routine iodixanoL (VISIPAQUE 320-50 mL) injection 50 Given 1:00 PM CDT 50 mL mL 50 mL, Injection, ONCE, 1 dose, Wed01/23/20 at 1300, Routine lidocaine 1% (PF) (XYLOCAINE) injection Given 01/23/2020 10:51 AM CDT 10 mL PRN, Starting Wed01/23/20 at 1051, Until Wed01/23/20 at 1051, Routine nitroglycerin 50 mg in D5W 250 mL Given 01/23/2020 11:02 AM CDT 200 mcg Right Wrist infusion RTU PRN, Starting Wed01/23/20 at 1102 ticagrelor (BRILINTA) tablet 90 mg Given 01/23/2020 9:58 AM CDT 90 mg 90 mg, Oral, BID, First dose on Wed01/23/20 at 2000, Until Discontinued, Routine verapamiL (ISOPTIN) injection Given 01/23/2020 11:02 AM CDT 2.5 mg Righ t Wrist PRN, Starting Wed01/23/20 at 1102, Until Wed01/23/20 at 1102, Routine documented in this encounter Insurance Payer Benefit Plan / Subscriber ID Effective Dates Phone Addre ss Type Group HUMANA - HUMANA [id number] 2017- Adv MANAGED MEDICARE ERS t PPO MEDICARE documented as of this encounter Advance Directives Type Date 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
--- OUTSIDE RECORDS SUMMARY | 2020-02-01 08:20 | XMS REPORT | Summary of Care ---
:1940 Author Organization [facility] - [facility] Address [address] [place] [address] Care Team Providers Name Role Phone Selene Primary Care Provider Reason for Visit Reason Comments Transition Of Care Encounter Details Date Type Department Care Team Description 01/25/2020 [facility] [address] [address] Allergies Active Allergy Reactions Severity Noted Date [...] as of this encounter (statuses as of 01/25/2020) Medications Medication Sig Dispensed Refills Start Date End Date Status traMADoL 50 mg tablet tramadol 50 mg tablet 0 Active Take 1 tablet every 8 hours by oral route for 10 days. torsemide 20 mg Take 20 mg by 0 Active tablet mouth. tamsulosin 0.4 mg 24 Take 0.4 mg by 0 05/30/2019 Active hr capsule mouth. PARoxetine 10 mg paroxetine 10 mg 0 Active tablet tablet oxybutynin chloride 5 Take 5 mg by mouth 0 0 Active mg tablet 2 (two) times daily. omeprazole-sodium omeprazole 40 0 Active bicarbonate 40-1.1 mg-sodium mg-gram per capsule bicarbonate 1.1 gram capsule nebivoloL 10 mg Take 20 mg by 0 Active tablet mouth. metoprolol tartrate metoprolol tartrate 0 Active 100 mg tablet 100 mg tablet metFORMIN 500 mg Take 500 mg by 0 Active tablet mouth. melatonin 10 mg Tab Take 10 mg by 0 05/29/2019 Active mouth. losartan 100 mg losartan 100 mg [...] 0 Active tablet tablet doxepin 25 mg capsule Take 25 mg by 0 Active mouth. 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 atorvastatin 80 mg Take 80 mg by mouth 0 11/23/2019 Active tablet daily. amLODIPine 2.5 mg amlodipine 2.5 mg [...] 0 01/24/2020 Active tabletIndications: mouth 2 (two) times S/P aneurysm repair daily. documented as of this encounter (statuses as of 01/25/2020) Active Problems Problem Noted Date Vertebral artery stenosis 01/23/2020 S/P aneurysm repair 11/21/2019 Post-op pain 04/01/2016 documented as of this encounter (statuses as of 01/25/2020) Immunizations Name Administration Dates Next Due Pneumococcal [...] Telephone Encounter - Ermias Castillo RN - 01/25/2020 2:53 PM CDT TRANSITIONAL CARE MANAGEMENT ASSESSMENT 01/25/2020 Bharati Lancaster [id number] Bharati Lancaster is a 79 year old /White female was admitted on 01/23/20 to [facility] ([facility]. She was discharged on 01/24/20 with discharge disposition of HR- Routine Discharge. Admitting Physician: Indra Oconnor Discharge Diagnosis: FINAL DIAGNOSIS: Vertebral artery stent Linked Episodes Type: Episode: Status: Noted: Resolved: Last update: Updated by: TRANSITION OF CARE TCM Active 01/24/2020 01/25/2020 2:43 PM Ermias Castillo, RN Comments: TCM Hmp-tche-wq-face outreach documentation: Discharge Assessment Chart Assessed: 01/25/20 TCM Outreach Completed: 01/25/20 Do you have a few minutes to speak with me about how you are doing at home?: Yes(Spoke with pt and daughter on speaker phone. States pt is doing better today. Had nausea and was unable to eat yesterday.) Discharge Instructions Do you understand your at-home instructions?: Yes(No questions at this time.) Medications Have you filled your prescriptions and do you have them in your home? 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 Who will be taking you?: Yes(Daughter) Home Health Assistance Has the home health nurse contacted you since you've been home?: N/A Survey - Recognition Is there anything you would like to share about your recent hospitalization, or anyone you would like to recognize?: No Do you have any suggestions for improvement?: No Do you have any other questions or concerns at this time?: No Future Appointments: Future Appointments Provider Department Dept Phone 02/01/2020 9:30 AM Giovany Burnett MD [facility] [phone] COVID-19 It is noted in the discharge summary that you were tested for COVID 19. Did your physician discuss the results of this test with you? yes Do you have any questions about your test results? no What instructions did you receive from your physician? prevention Do you have any questions about your discharge instructions related to COVID 19? no Should you have any other questions or concerns, you may call the Access Center at [phone] or toll free [phone] for further guidance. documented in this encounter Plan of Treatment Date Type Specialty Care Team Description 02/01/2020 Office Visit Urology Giovany Burnett M D [address] [facility] [address] [place], [place] [address] Health Maintenance Due Date Last Done Comments [...] of this encounter Implants Implanted Type Area Pasteuriser Operator Device Shelf Model / Serial Identifier Expiration / Lot Date [employer] Cement W/ Gent CEMENT Left: Knee Vinny -1113-140-01 / Implanted: Qty: 1 on 04/01/2016 by Flex Penaloza MD at [facility] 8 [id number] / [id number] [employer] Cement W/ Gent CEMENT Left: Knee Vinny -1113-140-01 / Implanted: Qty: 1 on 04/01/2016 by Flex Penaloza MD at [facility] 8 [id number] / [id number] Ps Open Box Femoral-Left Femur Left: Knee Biomet 11/0 06/2025 [id number] / Implanted: Qty: 1 on 04/01/2016 by Flex Penaloza MD at [facility] J [id number] / [id number] Fixed Cruciate Tibial Plate KNEE Left: Knee Biomet 0 09/18/2025 [id number] / Implanted: Qty: 1 on 04/01/2016 by Flex Penaloza MD at [facility] J [id number] / [id number] Ps Tibial Bearing KNEE Left: Knee Biomet 06/25/2020 [id number] / Implanted: Qty: 1 on 04/01/2016 by Flex Penaloza MD at [facility] 3 [id number] / [id number] Lens, Raf #Sn60wf - [id number] LENS Left: Eye Raf 06/09/2022 [id number] / Implanted: Qty: 1 on 12/09/2017 by Benjamin Rodriguez MD at [facility] 7 [id number] / [id number] Lens, Raf #Sn60wf - [id number] LENS Right: Eye Raf 08/09/2022 [id number] / Implanted: Qty: 1 on 12/23/2017 by Benjamin Rodriguez MD at [facility] 2 [id number] / [id number] Neuroform [place] STENT N/A: Fransisca 08/17/2023 UZA [id number] / Implanted: Qty: 1 on 11/21/2019 by Indra Oconnor MD at [facility] ([facility]) Cranium [id number] / [id number] Xience Yanelis Everolimus Eluding Coronary Stent System STENT N/A: Aguilar [id number] / Implanted: Qty: 1 on 01/23/2020 at [facility] ([facility]) [employer] [id number] / [id number] Adc Patella 28 X 8 Mm - [id number] Left: Knee Biomet 11/01/2020 [id number] / Implanted: Qty: 1 on 04/01/2016 by Flex Penaloza MD at [facility] 9 [id number] / [id number] Target 360 Ultra Detachable Coil Cranium Stevenson 04/29/2021 [id number] / Implanted: Qty: 1 on 11/21/2019 by Indra Oconnor MD at [facility] ([facility]) [id number] / [id number] Target 360 Ultra Detachable Coil Cranium Stevenson 05/03/2021 [id number] / Implanted: Qty: 1 on 11/21/2019 by Indra Oconnor MD at [facility] ([facility]) [id number] / [id number] documented as of this encounter Results Not on filedocumented in this encounter Insurance Payer Benefit Plan / Subscriber ID Effective Dates Phone Addre ss Type Group HUMANA - HUMANA [id number] [facility] MANAGED MEDICARE ERS t PPO MEDICARE documented as of this encounter Advance Directives Type Date Recorded 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
[2020-02-01 08:33] LABS: Absolute Lymphocytes (CBC) 1.7 K/uL (0.7-4.9); Basophils % 0.5 % (0-1.3); Hematocrit 24.4 % (36.0-45.0); Lymphocytes % 13.9 % (15.3-44.8); MPV 9.1 fL (7.6-11.3); RBC Red Blood Cell Count 2.89 M/uL (3.86-4.86)
[2020-02-01 08:34] LABS: Protime INR 0.94
[2020-02-01 08:50] LABS: Potassium 4.4 mmol/L (3.5-5.1)
--- NOTE | 2020-02-01 09:00 | EDPHYS ---
Physician Documentation [facility] Name: Bharati Lancaster Age: 79 yrs Sex: Female : 1940 Arrival Date: 02/01/2020 Time: 07:43 Bed 8 Private MD: Casa Morton V ED Physician Uvaldo Branch HPI: 01/31 09:46 This 79 yrs old Female presents to ER via Wheelchair with complaints of Blood kdr Transfusion. 09:46 The patient has been feeling generally weak and a recent blood draw revealed that she kdr was anemic. She has had prior transfusions for unknown cause. After the patient evaluation and blood draw had been initiated, it was discovered by the warehouse delivery driver that there were direct admission orders. The patient was then sent to the floor with Dr. Morton's order set. avionics shop supervisor Jamie affirmed that I did not need to write admission orders. Onset: The symptoms/episode began/occurred at an unknown time. Severity of symptoms: At their worst the symptoms were mild in the emergency department the symptoms are unchanged. The patient has experienced similar episodes in the past, several times. The patient has been recently seen by a physician: Dr. Morton. Historical: - Allergies: 08:04 BACLOFEN; jl7 08:04 Codeine; jl7 08:04 Darvocet-N 100; jl7 08:04 Demerol; jl7 08:04 Hydrocodone-Acetaminophen; jl7 08:04 Morphine; jl7 08:04 plastic tape; jl7 - Home Meds: 08:04 allopurinol 100 mg Oral tab 1 tab once daily [Active]; atorvastatin 80 mg oral tab 1 jl7 tab once daily [Active]; BRILINTA 90 mg oral tab 1 tab 2 times per day [Active]; clonidine HCl 0.3 mg oral tab [Active]; Edarbi 80 mg Oral tab 1 tab once daily [Active]; gabapentin 300 mg oral cap 1 cap 3 times per day [Active]; glimepiride 2 mg Oral tab 1 tab once daily [Active]; hydralazine 100 mg Oral tab 2 times per day [Active]; levothyroxine 50 mcg tab 1 tab once daily [Active]; oxybutynin chloride 5 mg Oral tab 1 tab 2 times per day [Active]; Xarelto 15 mg oral tab [Active]; - PMHx: 08:04 Atrial Fib; Cervical radicular pain; Degenative join disease; GERD; Gout; jl7 Hyperlipidemia; Hypertension; Hypothyroidism; CHF; Diabetes - NIDDM; DVT; Chronic Kidney Disease; - PSHx: 08:04 Knee surgery; Carpal Tunnel Repair; Carotid surgery; jl7 - Immunization history:: Adult Immunizations up to date. - Social history:: Smoking status: Patient denies any tobacco usage or history of. ROS: 09:46 Constitutional: Negative for fever, chills, and weight loss - has been feeling kdr generally weak. Eyes: Negative for injury, pain, redness, and discharge, ENT: Negative for injury, pain, and discharge, Neck: Negative for injury, pain, and swelling, Cardiovascular: Negative for chest pain, palpitations, and edema, Respiratory: Negative for shortness of breath, cough, wheezing, and pleuritic chest pain, Abdomen/GI: Negative for abdominal pain, nausea, vomiting, diarrhea, and constipation, Back: Negative for injury and pain, : Negative for injury, bleeding, discharge, and swelling, MS/Extremity: Negative for injury and deformity, Skin: Negative for injury, rash, and discoloration, Neuro: Negative for headache, weakness, numbness, tingling, and seizure activity. Psych: Negative for depression, anxiety, suicide ideation, homicidal ideation, and hallucinations, Allergy/Immunology: Negative for hives, rash, and allergies, Endocrine: Negative for neck swelling, polydipsia, polyuria, polyphagia, and marked weight changes, Hematologic/Lymphatic: Negative for swollen nodes, abnormal bleeding, and unusual bruising. Exam: 09:46 Constitutional: This is a well developed, well nourished patient who is awake, alert, kdr and in no acute distress. Head/Face: Normocephalic, atraumatic. Eyes: Pupils equal round and reactive to light, extra-ocular motions intact. Lids and lashes normal. Conjunctiva and sclera are non-icteric and not injected. Cornea within normal limits. Periorbital areas with no swelling, redness, or edema. Neck: Trachea midline, no thyromegaly or masses palpated, and no cervical lymphadenopathy. Supple, full range of motion without nuchal rigidity, or vertebral point tenderness. No Meningismus. Chest/axilla: Normal chest wall appearance and motion. Nontender with no deformity. No lesions are appreciated. Cardiovascular: Regular rate and rhythm with a normal S1 and S2. No gallops, murmurs, or rubs. Normal PMI, no JVD. No pulse deficits. Respiratory: Lungs have equal breath sounds bilaterally, clear to auscultation and percussion. No rales, rhonchi or wheezes noted. No increased work of breathing, no retractions or nasal flaring. Back: No spinal tenderness. No costovertebral tenderness. Full range of motion. Skin: Warm, dry with normal turgor. Normal color with no rashes, no lesions, and no evidence of cellulitis. MS/ Extremity: Pulses equal, no cyanosis. Neurovascular intact. Full, normal range of motion. Neuro: Awake and alert, GCS 15, oriented to person, place, time, and situation. Cranial nerves II-XII grossly intact. Motor strength 5/5 in all extremities. Sensory grossly intact. Cerebellar exam normal. Normal gait. Psych: Awake, alert, with orientation to person, place and time. Behavior, mood, and affect are within normal limits. 09:46 Abdomen/GI: Inspection: obese Bowel sounds: active, diminished, in all quadrants, Palpation: soft, nontender. Vital Signs: 07:56 BP 171 / 63; Pulse 71; Resp 15; Temp 97.8; Pulse Ox 100% ; Weight 89.36 kg; Height 5 jl7 ft. 5 in. (165.10 cm); Pain 0/10; 08:31 BP 150 / 52; Pulse 71; Resp 17; Pulse Ox 100% ; jl7 09:30 BP 118 / 83; Pulse 76; Resp 16; Pulse Ox 100% ; jl7 07:56 Body Mass Index 32.78 (89.36 kg, 165.10 cm) jl7 MDM: 09:00 Patient medically screened. kdr 09:46 Data reviewed: vital signs, nurses notes, lab test result(s). Counseling: I had a kdr detailed discussion with the patient and/or guardian regarding: the historical points, exam findings, and any diagnostic results supporting the discharge/admit diagnosis, lab results, the need for outpatient follow up. 01/31 07:57 Order name: CBC with Diff kdr 01/31 07:57 Order name: Chem 7 kdr 01/31 07:57 Order name: PT-INR kdr 01/31 07:57 Order name: Type And Screen kdr Administered Medications: No medications were administered Disposition: 02/01/20 09:00 Hospitalization ordered by Casa Morton for Observation. Preliminary diagnosis is Anemia, unspecified. - Bed requested for Telemetry/MedSurg (observation). - Status is Observation. jl7 - Condition is Fair. - Problem is an acute exacerbation. - Symptoms are unchanged. Signatures: Dispatcher [employer] EDMS Uvaldo Branch MD MD kdr Martinez, Eric em1 Ga Valderrama, RN RN jl7 Corrections: (The following items were deleted from the chart) 09:05 09:00 Hospitalization Ordered by Casa Morton MD for Observation. Preliminary diagnosis em1 is Anemia, unspecified. Bed requested for Telemetry/MedSurg (observation). Status is Observation. Condition is Fair. Problem is an acute exacerbation. Symptoms are unchanged. kdr 09:10 08:04 Allergies: ACETAMINOPHEN; jl7 jl7 09:50 09:05 02/01/2020 09:00 Hospitalization Ordered by Casa Morton MD for Observation. jl7 Preliminary diagnosis is Anemia, unspecified. Bed requested for Telemetry/MedSurg (observation). Status is Observation. Condition is Fair. Problem is an acute exacerbation. Symptoms are unchanged. em1
--- NOTE | 2020-02-01 09:00 | ER ---
Nurse's Notes [facility] Name: Bharati Lancaster Age: 79 yrs Sex: Female : 1940 Arrival Date: 02/01/2020 Time: 07:43 Bed 8 Private MD: Casa Morton V Diagnosis: Anemia, unspecified Presentation: 01/31 07:56 Chief complaint: Patient's son or daughter states: Had a Right carotid stent placed on jl7 01-23-20; blood work yesterday and Dr. Morton sent us here due to low hgb. Denies pain. Coronavirus screen: Client denies travel out of the [place] in the last 14 days. At this time, the client does not indicate any symptoms associated with coronavirus-19. Ebola Screen: No symptoms or risks identified at this time. Initial Sepsis Screen: Does the patient meet any 2 criteria? No. Patient's initial sepsis screen is negative. Does the patient have a suspected source of infection? No. Patient's initial sepsis screen is negative. Risk Assessment: Do you want to hurt yourself or someone else? Patient reports no desire to harm self or others. Onset of symptoms is unknown. Care prior to arrival: None. Transition of care: patient was not received from another setting of care. 07:56 Method Of Arrival: Wheelchair [facility] 07:56 Acuity: GONZALEZ 2 jl7 Triage Assessment: 07:45 General: Appears in no apparent distress. comfortable, Behavior is calm, cooperative, jl7 appropriate for age. Pain: Denies pain. Neuro: Level of Consciousness is awake, alert, obeys commands, Oriented to person, place, time, situation. Cardiovascular: Reports Feeling tired Patient's skin is warm and dry. Respiratory: Airway is patent Respiratory effort is even, unlabored, Respiratory pattern is regular, symmetrical, Denies shortness of breath. GI: Reports constipation, Patient currently denies diarrhea, nausea, vomiting. Derm: Skin is dry, Skin is pale, Skin temperature is warm. Historical: - Allergies: 08:04 BACLOFEN; jl7 08:04 Codeine; jl7 08:04 Darvocet-N 100; jl7 08:04 Demerol; jl7 08:04 Hydrocodone-Acetaminophen; jl7 08:04 Morphine; jl7 08:04 plastic tape; jl7 - Home Meds: 08:04 allopurinol 100 mg Oral tab 1 tab once daily [Active]; atorvastatin 80 mg oral tab 1 jl7 tab once daily [Active]; BRILINTA 90 mg oral tab 1 tab 2 times per day [Active]; clonidine HCl 0.3 mg oral tab [Active]; Edarbi 80 mg Oral tab 1 tab once daily [Active]; gabapentin 300 mg oral cap 1 cap 3 times per day [Active]; glimepiride 2 mg Oral tab 1 tab once daily [Active]; hydralazine 100 mg Oral tab 2 times per day [Active]; levothyroxine 50 mcg tab 1 tab once daily [Active]; oxybutynin chloride 5 mg Oral tab 1 tab 2 times per day [Active]; Xarelto 15 mg oral tab [Active]; - PMHx: 08:04 Atrial Fib; Cervical radicular pain; Degenative join disease; GERD; Gout; jl7 Hyperlipidemia; Hypertension; Hypothyroidism; CHF; Diabetes - NIDDM; DVT; Chronic Kidney Disease; - PSHx: 08:04 Knee surgery; Carpal Tunnel Repair; Carotid surgery; jl7 - Immunization history:: Adult Immunizations up to date. - Social history:: Smoking status: Patient denies any tobacco usage or history of. Screenin:34 Abuse screen: Denies threats or abuse. Denies injuries from another. Nutritional jl7 screening: No deficits noted. Tuberculosis screening: No symptoms or risk factors identified. Fall Risk IV access (20 points). Ambulatory Aid- Crutches/Cane/Walker (15 pts). Gait- Weak (10 pts.). Mental Status- Oriented to own ability (0 pts). Total Lee Fall Scale indicates High Risk Score (45 or more points). Fall prevention measures have been instituted. Side Rails Up X 2 Placed Close to Nursing Station Frequent Obs/Assessments Occuring Family Present and informed to notify staff if the need to leave the bedside As available patient and family educated on Fall Prevention Program and Strategies. Assessment: 08:34 General: See triage assessment. jl 09:30 Reassessment: Patient appears in no apparent distress at this time. No changes from jl7 previously documented assessment. Patient and/or family updated on plan of care and expected duration. Pain level reassessed. Patient is alert, oriented x 3, equal unlabored respirations, skin warm/dry/pink. Vital Signs: 07:56 BP 171 / 63; Pulse 71; Resp 15; Temp 97.8; Pulse Ox 100% ; Weight 89.36 kg; Height 5 jl7 ft. 5 in. (165.10 cm); Pain 0/10; 08:31 BP 150 / 52; Pulse 71; Resp 17; Pulse Ox 100% ; jl7 09:30 BP 118 / 83; Pulse 76; Resp 16; Pulse Ox 100% ; jl7 07:56 Body Mass Index 32.78 (89.36 kg, 165.10 cm) jl7 ED Course: 07:43 Patient arrived in ED. ag5 07:43 Casa Morton MD is Private Physician. ag5 07:52 Uvaldo Branch MD is Attending Physician. kdr 07:55 Ga Valderrama RN is Primary Nurse. jl7 07:58 Triage completed. jl7 08:04 Arm band placed on right wrist. jl7 08:23 Initial lab(s) drawn, by pr, sent to lab. T\T\S collected, blood band applied to patient. jl7 Inserted saline lock: 20 gauge in left hand, using aseptic technique. Blood collected. 08:34 Patient has correct armband on for positive identification. Placed in gown. Bed in low jl7 position. Call light in reach. Side rails up X2. cafeteria monitor on. Pulse ox on. NIBP on. Warm blanket given. Pillow given. 08:59 Casa Morton MD is Hospitalizing Provider. kdr 09:30 No provider procedures requiring assistance completed. Patient admitted, IV remains in jl7 place. intact, No redness/swelling at site. Administered Medications: No medications were administered Outcome: 09:00 Decision to Hospitalize by Provider. kdr 09:46 Admitted to Med/surg accompanied by [facility], via stretcher, room 215, with chart, Report jl7 called to TOI Cazares 09:46 Condition: stable 09:46 Discharge instructions given to patient, family, Instructed on the need for admit, Demonstrated understanding of instructions. 09:50 Patient left the ED. jl7 Signatures: Uvaldo Branch MD MD kdr Ga Valderrama, TOI RN jl7 Latia Martinez 5 Corrections: (The following items were deleted from the chart) 09:10 08:04 Allergies: ACETAMINOPHEN; jl7 jl7
[2020-02-01 10:34] VITALS: BMI 33.7
[2020-02-01] MEDS ORDERED: ONDANSETRON 4 MG/2 ML VIAL IV PRN (12:00)
[2020-02-01] MEDS ORDERED: NACHLORIDE 0.45% 1,000 ML IV SCH (12:00)
[2020-02-01] MEDS ORDERED: LOPERAMIDE HCL 2 MG CAPSULE PO PRN (12:00)
[2020-02-01] MEDS ORDERED: DIPHENHYDRAMINE 25 MG TAB/CAP PO PRN (12:00)
[2020-02-01] MEDS ORDERED: POLYETHYL GLY 3350 17 GM/DOSE PO PRN (12:00)
[2020-02-01] MEDS ORDERED: ONDANSETRON 4 MG (ODT) TAB PO PRN (12:00)
[2020-02-01 12:22] VITALS: O2SAT 97
[2020-02-01 12:55] LABS: Absolute Lymphocytes (CBC) 1.8 K/uL (0.7-4.9); Basophils % 0.4 % (0-1.3); Hematocrit 23.3 % (36.0-45.0); Lymphocytes % 15.3 % (15.3-44.8); MPV 9.2 fL (7.6-11.3); RBC Red Blood Cell Count 2.75 M/uL (3.86-4.86)
[2020-02-01 12:59] LABS: Protime INR 0.91; RBC Red Blood Cell Count 2.68 M/uL (3.86-4.86)
[2020-02-01] MEDS ORDERED: NA CHLORIDE 0.9% 250 ML ONE (13:34)
[2020-02-01] MEDS ORDERED: HOME MED 1 EA UNK (Hydralazine Hcl [Apresoline] 100 MG) PO SCH (14:00)
[2020-02-01] MEDS ORDERED: HOME MED 1 EA UNK (Gabapentin [Gabapentin] 300 MG) PO SCH (14:00)
[2020-02-01] MEDS ORDERED: CLONIDINE HCL PO SCH (14:00)
--- NOTE | 2020-02-01 15:30 | RAD REPORT ---
EXAM DESCRIPTION: RAD - Chest Single View - 02/01/2020 3:02 pm CLINICAL HISTORY: admit Chest pain. COMPARISON: Chest Single View dated 09/06/2019; Chest Single View dated 05/31/2019; Chest Single View dated 05/30/2019; Chest Single View dated 05/14/2019 FINDINGS: Portable technique limits examination quality. The lungs are grossly clear. The heart is normal in size. No displaced fractures. IMPRESSION: No acute intrathoracic process suspected.
[2020-02-01 17:14] LABS: ALT/SGPT 21 U/L (12-78); AST/SGOT 18 U/L (15-37); Albumin 2.9 g/dL (3.4-5.0); Alkaline Phosphatase 128 U/L (45-117); BUN Blood Urea Nitrogen 36 mg/dL (7-18); Bicarbonate 24 mmol/L (21-32); Bilirubin Direct < 0.1 mg/dL (0-0.2); Bilirubin Total 0.2 mg/dL (0.2-1.0); Ferritin 5.2 ng/mL (8-388); Glucose Level 98 mg/dL (74-106); Potassium 4.4 mmol/L (3.5-5.1); Protein, Total 7.3 g/dL (6.4-8.2); Sodium Level 142 mmol/L (136-145)
[2020-02-01 20:36] LABS: Hematocrit 29.5 % (36.0-45.0)
[2020-02-01 20:47] VITALS: BP 161/70; TEMP 97.4
[2020-02-01] MEDS ORDERED: OXYBUTYNIN CHLORIDE 5 MG PO SCH (21:00)
[2020-02-01] MEDS ORDERED: [UNRECOGNIZED DRUG - OTHER] PO SCH (21:00)
[2020-02-01] MEDS ORDERED: HOME MED 1 EA UNK (Melatonin [Melatonin] 10 MG) PO SCH (21:00)
[2020-02-01] MEDS ORDERED: TICAGRELOR PO SCH (21:00)
[2020-02-02] MEDS ORDERED: ALLOPURINOL 100 MG PO SCH (06:00)
[2020-02-02] MEDS ORDERED: HOME MED 1 EA UNK (Glimepiride [Glimepiride] 2 MG) PO SCH (06:00)
[2020-02-02] MEDS ORDERED: HOME MED 1 EA UNK (Levothyroxine [Synthroid*] 50 MCG) PO SCH (06:00)
[2020-02-02] MEDS ORDERED: AZILSARTAN MEDOXOMIL PO SCH (06:00)
[2020-02-02] MEDS ORDERED: HOME MED 1 EA UNK (Atorvastatin Calcium [Lipitor] 80 MG) PO SCH (06:00)
--- NOTE | 2020-02-03 09:36 | EKG ---
Test Date: 2020-02-01 Test Time: 14:43:11 Circus Artist: ANTHONY MEASUREMENT RESULTS: Intervals: Rate: 76 OK: 142 QRSD: 136 QT: 442 QTc: 497 [place]: P: 70 OK: 142 QRS: -36 T: 48 INTERPRETIVE STATEMENTS: Normal sinus rhythm Left axis deviation Right bundle branch block Voltage criteria for left ventricular hypertrophy Cannot rule out Septal infarct, age undetermined Abnormal ECG Compared to ECG 09/08/2019 09:32:14 Left ventricular hypertrophy now present Myocardial infarct finding now present Sinus arrhythmia no longer present Electronically Signed On 02-03-20 09:31:26 CDT by Renaldo Mcleod
[2020-02-06 05:44] LABS: Alpha-1-Globulins 0.3 g/dL (0.2-0.3); Alpha-2-Globulins 0.9 g/dL (0.5-0.9); Gamma Globulins 1.1 g/dL (0.8-1.7); INTERPRETATION REPORT
--- NOTE | 2020-02-07 21:35 | P.SSS ---
Patient History Date of Service: 02/07/20 Reason for admission: ANEMIA History of Present Illness: HAS MANY ISSUES, DM, HTN. CKD-2, BASILAR ARTERY STENOSIS, THLOPTHLOCCO [place] ANEURYSM SP COIL BY DR. CARRASCO. SHE COMES IN WITH ANEMIA DOWN TO7.3 GMS. I ASKED FOR DIRECT ADMISSION. SHE WAS GIVEN TWO UNITS OF PACKED RBCS. SHE IS A CORONARY DISEASE PATIENT ALSO. SHE CAN'T TAKE XARELTO ANY LONGER THAT WAS GIVEN FOR A FIB. FAMILY KNOWS THR RISK OF STROKE ETC. Allergies codeine phosphate [From Tylenol-Codeine #3] Allergy (Mild, Verified 09/07/19 03:31) Rash morphine Allergy (Mild, Verified 09/07/19 03:31) Hives/Rash acetaminophen [From Darvocet-N 100] Allergy (Verified 09/07/19 03:31) Rash codeine Allergy (Verified 09/07/19 03:31) Rash meperidine HCl [From Demerol] Allergy (Verified 09/07/19 03:31) Unknown propoxyphene napsylate [From Darvocet-N 100] Allergy (Verified 09/07/19 03:31) Nausea/Vomiting BACLOFEN Allergy (Severe, Uncoded 09/07/19 03:31) Unknown Hydrocodone-Acetaminophen Allergy (Severe, Uncoded 09/07/19 03:31) Itching/Hives/Rash Tape Allergy (Severe, Uncoded 09/07/19 03:31) Rash plastic Allergy (Uncoded 09/07/19 03:31) Unknown Home Medications: Allopurinol 100 mg PO [id number] 02/01/20 Atorvastatin Calcium [Lipitor] 80 mg PO [id number] 02/01/20 Azilsartan Medoxomil [Edarbi] 1 tab PO [id number] 02/01/20 Clonidine HCl [Catapres] 1 tab PO TID 02/01/20 Gabapentin 300 mg PO TID 02/01/20 Glimepiride 2 mg PO [id number] 02/01/20 Hydralazine HCl [Apresoline] 100 mg PO TID 02/01/20 Levothyroxine [Synthroid] 50 mcg PO [id number] 02/01/20 Melatonin 10 mg PO BEDTIME 02/01/20 Oxybutynin Chloride 5 mg PO BID 02/01/20 Ticagrelor [Brilinta*] 1 tab PO BID 02/01/20 Vit C/E/Zn/Coppr/Lutein/Zeaxan [Preservision Areds 2 Softgel] 1 each PO BID 02/01/20 - Past Medical/Surgical History Has patient received pneumonia vaccine in the past: Yes Diabetic: No -: hypertension -: hyperlipidemia -: hypothyroid -: gout -: appendectomy -: cholecystectomy -: jaqueline -: appe -: knee surg x2 -: wrist surg x3 -: surg on chin, not sure what it was -: L Knee replacement -: appendectomy -: Cholecystectomy - Family History Brother -: Heart disease, Hypertension, Diabetes, Liver disease, Kidney disease Father -: Lung disease Mother -: Heart disease, Hypertension, Blood disorders - Social History Smoking Status: Never smoker Alcohol use: No CD- Drugs: No Caffeine use: Yes Place of Residence: Home Physical Examination - Vital Signs Temperature: 97.4 F Blood Pressure: 161/70 Pulse: 70 Respirations: 16 Pulse Ox (%): 97 - Disposition Disposition: ROUTINE DISCHARGE Condition: FAIR
== END 2020-02-01 21:15 | disposition home or self-care (01) ==
LOC: ER 07:41 → 2ND 09:26
PROVIDERS: ADMIT Internal Medicine; ATTEND Internal Medicine
DX: I12.9 Hypertensive chronic kidney disease with stage 1 through stage 4 chronic kidney disease, or unspecified chronic kidney disease (principal); N18.2 Chronic kidney disease, stage 2 (mild); D63.1 Anemia in chronic kidney disease; E11.22 Type 2 diabetes mellitus with diabetic chronic kidney disease; I25.10 Atherosclerotic heart disease of native coronary artery without angina pectoris; I48.91 Unspecified atrial fibrillation; R94.31 Abnormal electrocardiogram [ECG] [EKG]; I45.10 Unspecified right bundle-branch block; Z79.84 Long term (current) use of oral hypoglycemic drugs; E78.5 Hyperlipidemia, unspecified; E03.9 Hypothyroidism, unspecified; M10.9 Gout, unspecified; Z96.652 Presence of left artificial knee joint
CPT/HCPCS: 36430; 93005; 85025 ×2; 80048 ×2; 36415; 86900; 86850; 85610 ×2; 85044; 86901; 80076; 85730; 84443; 85018; 85014; 82728; 82607; 84165; 71045; 99285; G0378; P9016 ×2; J7050; G0379

== ENCOUNTER 2020-03-16 08:04 | Emergency (ER) | payer OTHER ==
--- OUTSIDE RECORDS SUMMARY | 2020-03-16 08:08 | XMS REPORT | Clinical Summary ---
:1940 Author Organization [facility] Address [address] [place] [address] Care Team Providers Name Role Phone Aaron [...] Date Type Specialty Care Team Description 09/07/2019 [facility] Khai Carrasco Canceled (Pro vider) Encounter MD Jarocho 09/07/2019 Lab Requisition Lab 09/06/2019 [facility] Cardiology Khai Carrasco Encounter MD [...] DONE Surgeon OUTSIDE OR 05/15/2019 Travel 05/14/2019 [facility] General Internal ALMA ROSA Campbell [...] Essential hype rtension; MD Sami Hypertensive crisis; Jun Melena; MD Vilma Acute blood loss anemia; Kevin [...] aneurysmJarocho MD 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 03/16/2019 Social History Tobacco Use Types Packs/Day Years [...] Inhaled Oxygen Concentration 21% 05/28/2019 9:19 PM MAGAZINE DESIGNER Weight 90.7 kg (200 lb) 08/30/2019 9:30 AM CDT Height 167.6 cm (5' 6") 08/30/2019 9:30 AM CDT Body Mass Index 32.28 08/30/2019 9:30 AM CDT Plan of Treatment Health Maintenance Due Date Last Done Comments MEDICARE ANNUAL WELLNESS (YEAR 2 or FIRST YEAR if no 04/13/2019 IPPE) INFLUENZA VACCINE (#1) 2019 PNEUMOCOCCAL 65+ YRS Completed 12/23/2014 Procedures Procedure Name Priority Date/Time Associated Comments [...] 424 ms QTC Calculation(Bazett) 515 ms P Teaberry 85 degrees R Teaberry -40 degrees T Teaberry 64 degrees Normal sinus rhythm Left axis [...] RHYTHM STRIP - SCAN 05/31/2019 11:43 AM MAGAZINE DESIGNER POCT-GLUCOSE METER Routine 05/29/2019 12:35 Resul ts for this PM MAGAZINE DESIGNER procedure are i n the results section. POCT-GLUCOSE METER Routine 05/29/2019 7:40 Resul ts for this AM MAGAZINE DESIGNER procedure are i n the results section. POCT-GLUCOSE METER Routine 05/28/2019 8:54 Resul ts for this PM [employer]AZINE DESIGNER procedure are i n the results section. POCT-GLUCOSE METER Routine 05/28/2019 5:20 Resul ts for this PM MAGAZINE DESIGNER procedure are i n the results section. POCT-GLUCOSE METER Routine 05/28/2019 11:38 Resul ts for this AM MAGAZINE DESIGNER procedure are i n the results section. POCT-GLUCOSE METER Routine 05/28/2019 7:25 Resul ts for this AM [employer]AZINE DESIGNER procedure are i n the results section. POCT-GLUCOSE METER Routine 05/27/2019 10:17 Resul ts for this PM [employer]AZINE DESIGNER procedure are i n the results section. HEMOGLOBIN AND Routine 05/27/2019 10:27 Results f or this HEMATOCRIT AM MAGAZINE DESIGNER procedure are i n the results section. POCT-GLUCOSE METER Routine 05/26/2019 11:30 Resul ts for this PM [employer]AZINE DESIGNER procedure are i n the results section. POCT-GLUCOSE METER Routine 05/26/2019 11:54 Resul ts for this AM MAGAZINE DESIGNER procedure are i n the results section. MAGNESIUM Routine 05/26/2019 5:18 Results for this AM MAGAZINE DESIGNER procedure are i n the results section. BASIC METABOLIC Routine 05/26/2019 5:18 Results for this PANEL (7) AM MAGAZINE DESIGNER procedure are i n the results section. HEMOGLOBIN AND Routine 05/26/2019 5:18 Results f or this HEMATOCRIT AM MAGAZINE DESIGNER procedure are i n the results section. POCT-GLUCOSE METER Routine 05/25/2019 10:12 Resul ts for this PM MAGAZINE DESIGNER procedure are i n the results section. XR CHEST 1 VIEW Routine 05/25/2019 7:24 Results for this PORTABLE/BEDSIDE PM MAGAZINE DESIGNER procedure a re in the results section. POCT-GLUCOSE METER Routine 05/25/2019 4:25 Resul ts for this PM MAGAZINE DESIGNER procedure are i n the results section. POCT-GLUCOSE METER Routine 05/25/2019 12:53 Resul ts for this PM MAGAZINE DESIGNER procedure are i n the results section. POCT-GLUCOSE METER Routine 05/25/2019 7:55 Resul ts for this AM MAGAZINE DESIGNER procedure are i n the results section. HEMOGLOBIN AND Routine 05/25/2019 4:53 Results f or this HEMATOCRIT AM MAGAZINE DESIGNER procedure are i n the results section. POCT-GLUCOSE METER Routine 05/24/2019 9:56 Resul ts for this PM [employer]AZINE DESIGNER procedure are i n the results section. TRANSFUSION SERVICE 05/24/2019 5:52 REPORT - SCAN PM MAGAZINE DESIGNER POCT-GLUCOSE METER Routine 05/24/2019 12:28 Resul ts for this PM MAGAZINE DESIGNER procedure are i n the results section. POCT-GLUCOSE METER Routine 05/24/2019 8:19 Resul ts for this AM MAGAZINE DESIGNER procedure are i n the results section. CBC (HEMOGRAM ONLY) Routine 05/24/2019 4:59 Resu lts for this AM MAGAZINE DESIGNER procedure are i n the results section. BASIC METABOLIC Routine 05/24/2019 4:59 Results for this PANEL (7) AM MAGAZINE DESIGNER procedure are i n the results section. PREPARE Routine 05/23/2019 11:54 Results for this LEUKO-REDUCED RBC PM MAGAZINE DESIGNER procedure are in the results section. POCT-GLUCOSE METER Routine 05/23/2019 6:26 Resul ts for this PM MAGAZINE DESIGNER procedure are i n the results section. TRANSFUSION SERVICE 05/23/2019 5:54 REPORT - SCAN PM MAGAZINE DESIGNER BASIC METABOLIC Routine 05/23/2019 5:30 Results for this PANEL (7) AM MAGAZINE DESIGNER procedure are i n the results section. CBC (HEMOGRAM ONLY) Routine 05/23/2019 5:30 Resu lts for this AM MAGAZINE DESIGNER procedure are i n the results section. POCT-GLUCOSE METER Routine 05/23/2019 12:16 Resul ts for this AM MAGAZINE DESIGNER procedure are i n the results section. TRANSFUSE Routine 05/22/2019 4:22 LEUKO-REDUCED RED PM MAGAZINE DESIGNER BLOOD CELLS POCT-GLUCOSE METER Routine 05/22/2019 5:59 Resul ts for this AM MAGAZINE DESIGNER procedure are i n the results section. CBC W/PLT COUNT & Routine 05/22/2019 5:38 Result s for this AUTO DIFFERENTIAL AM [employer]AZINE DESIGNER procedure are in the results section. CBC W/PLT COUNT & Routine 05/22/2019 5:38 Result s for this AUTO DIFFERENTIAL AM [employer]AZINE DESIGNER procedure are in the results section. PERIPHERAL VASCULAR 05/21/2019 9:10 REPORT - SCAN PM MAGAZINE DESIGNER POCT-GLUCOSE METER Routine 05/21/2019 6:43 Resul ts for this PM MAGAZINE DESIGNER procedure are i n the results section. TRANSFUSION SERVICE 05/21/2019 5:51 REPORT - SCAN PM MAGAZINE DESIGNER POTASSIUM Routine 05/21/2019 1:28 Results for this PM MAGAZINE DESIGNER procedure are i n the results section. MAGNESIUM Routine 05/21/2019 1:28 Results for this PM MAGAZINE DESIGNER procedure are i n the results section. CBC (HEMOGRAM ONLY) Routine 05/21/2019 1:28 Resu lts for this PM MAGAZINE DESIGNER procedure are i n the results section. POCT-GLUCOSE METER Routine 05/21/2019 12:58 Resul ts for this PM MAGAZINE DESIGNER procedure are i n the results section. POCT-GLUCOSE METER Routine 05/21/2019 6:25 Resul ts for this AM MAGAZINE DESIGNER procedure are i n the results section. URIC ACID Add-On 05/21/2019 5:59 Results for this AM MAGAZINE DESIGNER procedure are i n the results section. BASIC METABOLIC Routine 05/21/2019 5:59 Results for this PANEL (7) AM MAGAZINE DESIGNER procedure are i n the results section. CBC (HEMOGRAM ONLY) Routine 05/21/2019 5:59 Resu lts for this AM MAGAZINE DESIGNER procedure are i n the results section. CBC (HEMOGRAM ONLY) Routine 05/21/2019 12:39 Resu lts for this AM MAGAZINE DESIGNER procedure are i n the results section. POCT-GLUCOSE METER Routine 05/21/2019 12:30 Resul ts for this AM MAGAZINE DESIGNER procedure are i n the results section. PREPARE STAT 05/20/2019 11:54 Results for this LEUKO-REDUCED RBC PM MAGAZINE DESIGNER procedure are in the results section. VENOUS DOPPLER LEGS Routine 05/20/2019 7:30 Resu lts for this BILATERAL PM MAGAZINE DESIGNER procedure are i n the results section. TRANSFUSION SERVICE 05/20/2019 5:53 REPORT - SCAN PM MAGAZINE DESIGNER IRON, TIBC, % SAT. Routine 05/20/2019 5:50 Resul ts for this (WITHOUT FERRITIN) PM MAGAZINE DESIGNER procedure are in the results section. TRANSFERRIN Routine 05/20/2019 5:50 Results for this PM MAGAZINE DESIGNER procedure are i n the results section. FERRITIN Routine 05/20/2019 5:50 Results for this PM MAGAZINE DESIGNER procedure are i n the results section. CBC (HEMOGRAM ONLY) Routine 05/20/2019 5:49 Resu lts for this PM MAGAZINE DESIGNER procedure are i n the results section. XR ANKLE 1 VIEW LEFT MANPREET 05/20/2019 10:10 Res ults for this AM MAGAZINE DESIGNER procedure are i n the results section. REPORT OF PROCEDURE 05/20/2019 8:39 - ENDOSCOPY URL AM MAGAZINE DESIGNER UPPER ENDOSCOPY 05/20/2019 7:56 Gastrointestinal AM MAGAZINE DESIGNER hemorrhage, unspecified gastrointestinal hemorrhage type CBC (HEMOGRAM ONLY) Routine 05/20/2019 4:06 Resu lts for this AM MAGAZINE DESIGNER procedure are i n the results section. PHOSPHORUS Routine 05/20/2019 4:06 Results for this AM MAGAZINE DESIGNER procedure are i n the results section. MAGNESIUM Routine 05/20/2019 4:06 Results for this AM MAGAZINE DESIGNER procedure are i n the results section. BASIC METABOLIC Routine 05/20/2019 4:06 Results for this PANEL (7) AM MAGAZINE DESIGNER procedure are i n the results section. CBC (HEMOGRAM ONLY) Routine 05/20/2019 12:07 Resu lts for this AM MAGAZINE DESIGNER procedure are i n the results section. POCT-GLUCOSE METER Routine 05/19/2019 6:25 Resul ts for this PM MAGAZINE DESIGNER procedure are i n the results section. CBC (HEMOGRAM ONLY) Routine 05/19/2019 6:21 Resu lts for this PM MAGAZINE DESIGNER procedure are i n the results section. TRANSFUSE STAT 05/19/2019 4:35 LEUKO-REDUCED RED PM MAGAZINE DESIGNER BLOOD CELLS TYPE AND SCREEN, STAT 05/19/2019 1:24 Results for this AUTOMATED PM MAGAZINE DESIGNER procedure are i n the results section. POCT-GLUCOSE METER Routine 05/19/2019 12:18 Resul ts for this PM MAGAZINE DESIGNER procedure are i n the results section. CBC (HEMOGRAM ONLY) Routine 05/19/2019 12:14 Resu lts for this PM MAGAZINE DESIGNER procedure are i n the results section. FIBRINOGEN Routine 05/19/2019 7:25 Results for this AM MAGAZINE DESIGNER procedure are i n the results section. PT/APTT Routine 05/19/2019 7:25 Results for this AM MAGAZINE DESIGNER procedure are i n the results section. PHOSPHORUS Routine 05/19/2019 6:52 Results for this AM MAGAZINE DESIGNER procedure are i n the results section. MAGNESIUM Routine 05/19/2019 6:52 Results for this AM MAGAZINE DESIGNER procedure are i n the results section. BASIC METABOLIC Routine 05/19/2019 6:52 Results for this PANEL (7) AM MAGAZINE DESIGNER procedure are i n the results section. CBC (HEMOGRAM ONLY) Routine 05/19/2019 5:54 Resu lts for this AM MAGAZINE DESIGNER procedure are i n the results section. POCT-GLUCOSE METER Routine 05/19/2019 12:09 Resul ts for this AM MAGAZINE DESIGNER procedure are i n the results section. POCT-GLUCOSE METER Routine 05/18/2019 6:09 Resul ts for this PM MAGAZINE DESIGNER procedure are i n the results section. POCT-GLUCOSE METER Routine 05/18/2019 12:11 Resul ts for this PM MAGAZINE DESIGNER procedure are i n the results section. CBC (HEMOGRAM ONLY) Routine 05/18/2019 3:43 Resu lts for this AM MAGAZINE DESIGNER procedure are i n the results section. PHOSPHORUS Routine 05/18/2019 3:42 Results for this AM MAGAZINE DESIGNER procedure are i n the results section. MAGNESIUM Routine 05/18/2019 3:42 Results for this AM MAGAZINE DESIGNER procedure are i n the results section. BASIC METABOLIC Routine 05/18/2019 3:42 Results for this PANEL (7) AM MAGAZINE DESIGNER procedure are i n the results section. POCT-GLUCOSE METER Routine 05/17/2019 6:32 Resul ts for this PM MAGAZINE DESIGNER procedure are i n the results section. NV CAROTID ARTERY Routine 05/17/2019 3:25 Result s for this STENT PLACEMENT W PM MAGAZINE DESIGNER procedure are in PROTECTION the results section. PROCEDURE DONE 05/17/2019 1:00 Left carotid stenosis OUTSIDE OR PM MAGAZINE DESIGNER Special Needs REQ:1300 POCT-GLUCOSE METER Routine 05/17/2019 12:28 PM Re sults for this MAGAZINE DESIGNER procedure are i n the results section. PROTHROMBIN TIME/INR Add-On 05/17/2019 8:55 AM Results for this MAGAZINE DESIGNER procedure are i n the results section. APTT Routine 05/17/2019 8:55 AM Results for this MAGAZINE DESIGNER procedure are i n the results section. POCT-GLUCOSE METER Routine 05/17/2019 6:37 AM Re sults for this MAGAZINE DESIGNER procedure are i n the results section. CBC (HEMOGRAM ONLY) Routine 05/17/2019 4:12 AM R esults for this MAGAZINE DESIGNER procedure are i n the results section. APTT Routine 05/17/2019 4:12 AM Results for this MAGAZINE DESIGNER procedure are i n the results section. POCT-ASPIRIN PLATELET Routine 05/17/2019 4:12 AM Results for this AGGREGATION MAGAZINE DESIGNER procedure are i n the results section. POCT-P2Y12 PLATELET Routine 05/17/2019 4:12 AM R esults for this AGGREGATION MAGAZINE DESIGNER procedure are i n the results section. BASIC METABOLIC PANEL Routine 05/17/2019 4:12 AM Results for this (7) MAGAZINE DESIGNER procedure are i n the results section. APTT Routine 05/17/2019 4:12 AM Results for this MAGAZINE DESIGNER procedure are i n the results section. APTT Routine 05/17/2019 1:19 AM Results for this MAGAZINE DESIGNER procedure are i n the results section. POCT-GLUCOSE METER Routine 05/16/2019 11:49 PM Re sults for this MAGAZINE DESIGNER procedure are i n the results section. POCT-GLUCOSE METER Routine 05/16/2019 6:36 PM Re sults for this MAGAZINE DESIGNER procedure are i n the results section. TRANSFUSION SERVICE 05/16/2019 6:22 PM REPORT - SCAN MAGAZINE DESIGNER NV CEREBRAL 4 VESSEL Routine 05/16/2019 4:14 PM Results for this ANGIOGRAM MAGAZINE DESIGNER procedure are i n the results section. POCT-GLUCOSE METER Routine 05/16/2019 1:29 PM Re sults for this MAGAZINE DESIGNER procedure are i n the results section. 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 APTT Routine 05/16/2019 9:03 AM MAGAZINE DESIGNER Resu lts for this procedure are i n the results section . CBC (HEMOGRAM ONLY) Routine 05/16/2019 9:03 AM MAGAZINE DESIGNER Results for this procedure are i n the results section . APTT Routine 05/16/2019 2:36 AM MAGAZINE DESIGNER Resu lts for this procedure are i n the results section . PLATELET COUNT Routine 05/16/2019 2:36 AM MAGAZINE DESIGNER Re sults for this procedure are i n the results section . PT/APTT Routine 05/16/2019 2:36 AM MAGAZINE DESIGNER Resu lts for this procedure are i n the results section . BASIC METABOLIC PANEL (7) Routine 05/16/2019 2:36 AM MAGAZINE DESIGNER Results for this procedure are i n the results section . CT CEREBRAL PERFUSION STAT 05/15/2019 11:45 PM MAGAZINE DESIGNER Results for this ANALYSIS procedure are i n the results section . CT/CTA CAROTID STAT 05/15/2019 11:45 PM MAGAZINE DESIGNER Re sults for this procedure are i n the results section . CTA BRAIN STAT 05/15/2019 11:45 PM MAGAZINE DESIGNER Resu lts for this procedure are i n the results section . CT BRAIN/STROKE TEST DESIGN STAT 05/15/2019 11:21 PM MAGAZINE DESIGNER Results for this procedure are i n the results section . POCT-GLUCOSE METER Routine 05/15/2019 8:45 PM MAGAZINE DESIGNER Results for this procedure are i n the results section . PROTHROMBIN TIME/INR STAT 05/15/2019 6:48 PM MAGAZINE DESIGNER Results for this procedure are i n the results section . TYPE AND SCREEN, AUTOMATED STAT 05/15/2019 6:47 PM MAGAZINE DESIGNER Results for this procedure are i n the results section . POCT-GLUCOSE METER Routine 05/15/2019 5:39 PM MAGAZINE DESIGNER Results for this procedure are i n the results section . POCT-GLUCOSE METER Routine 05/15/2019 11:43 AM MAGAZINE DESIGNER Results for this procedure are i n the results section . POCT-GLUCOSE METER Routine 05/15/2019 8:38 AM MAGAZINE DESIGNER Results for this procedure are i n the results section . POCT-GLUCOSE METER Routine 05/15/2019 6:46 AM MAGAZINE DESIGNER Results for this procedure are i n the results section . VITAMIN B12 AND FOLATE Routine 05/15/2019 6:09 AM MAGAZINE DESIGNER Results for this procedure are i n the results section . LIPID PANEL Routine 05/15/2019 6:09 AM MAGAZINE DESIGNER Resu lts for this procedure are i n the results section . BASIC METABOLIC PANEL (7) Routine 05/15/2019 6:09 AM MAGAZINE DESIGNER Results for this procedure are i n the results section . HEMOGLOBIN A1C Routine 05/15/2019 6:08 AM MAGAZINE DESIGNER Re sults for this procedure are i n the results section . CBC (HEMOGRAM ONLY) Routine 05/15/2019 6:08 AM MAGAZINE DESIGNER Results for this procedure are i n the results section . MR BRAIN WITHOUT IV Routine 05/15/2019 2:26 AM MAGAZINE DESIGNER Results for this CONTRAST procedure are i n the results section . POCT-GLUCOSE METER Routine 05/14/2019 9:07 PM MAGAZINE DESIGNER Results for this procedure are i n the results section . BASIC METABOLIC PANEL (7) STAT 03/31/2019 2:07 PM MAGAZINE DESIGNER Results for this procedure are i n the results section . ECG 12-LEAD Routine 03/31/2019 1:49 PM MAGAZINE DESIGNER Procedure Note - Interface, External Ris In - 03/31/2019 12:56 PM MAGAZINE DESIGNER Ventricular Rate 65 BPM Atrial Rate 65 BPM P-R Interval 138 ms QRS Duration 148 ms Q-T Interval 486 ms QTC Calculation(Bazett) 505 ms P Te[place]erry 81 degrees R Teaberry -41 degrees T Teaberry 36 degrees Normal sinus rhythm with sin us arrhythmia Left axis deviation Right bundle branch block Voltage criteria for left ve ntricular hypertrophy Abnormal ECG No previous ECGs available ECG 12-LEAD Routine 03/31/2019 1:49 PM MAGAZINE DESIGNER Resu lts for this procedure are i n the results section . CBC W/PLT COUNT & AUTO Routine 03/31/2019 12:28 PM MAGAZINE DESIGNER Results for this DIFFERENTIAL procedure are i n the results section . PT/APTT Routine 03/31/2019 12:28 PM MAGAZINE DESIGNER Resu lts for this procedure are i n the results section . CBC W/PLT COUNT & AUTO Routine 03/31/2019 12:28 PM MAGAZINE DESIGNER Results for this DIFFERENTIAL procedure are i n the results section . BASIC METABOLIC PANEL (7) Routine 03/31/2019 12:28 PM MAGAZINE DESIGNER Results for this procedure are i n the results section . after 03/16/2019 Results TRANSFUSION SERVICE REPORT - SCAN (09/07/2019 5:53 PM CDT)Only the most recent of6 resultswithin the time period is included. Narrative Performed At This result has an attachment that is no t available. SARS-CoV2/RT-PCR ([facility]) (09/07/2019 12:01 AM CDT) SARS-COV2/RT-PCR Not Detected Not Detected, [facility] Negative [facility] SARS-COV-2 [facility] PERFORMING LAB [facility] Specimen Other - Nasopharyngeal wall structure (b adal structure) Narrative Performed At Negative results do not preclude SARS-CoV-2 [facility] infection and should not be used as [...] the Act. Fact Sheet for Healthcare Providers: https://www.[employer]/Documents/Xpert%20Xpre ss%20SARS%20CoV-2/Fact%20Sheets/3023802%20SAR S-COV-2%20HEALTHCARE%20PROVIDERS%20FACT%20SHEE T.pdf Fact Sheet for Healthcare Patients: https://www.[employer]/Documents/Xpert%20Xpre ss%20SARS%20CoV-2/Fact%20Sheets/3023801%20SAR S-COV-2%20PATIENT%20FACT%20SHEET.pdf Performing Laboratory: [address] [address] Performing Organization Address City/State/Zipcode Phone Number [facility] [address] [place] [address] [place] ECG 12 lead (09/06/2019 9:35 AM CDT)Only the most recent of2 resultswithin the time period is included. Specimen Narrative Performed At Ventricular Rate 89 BPM GE MUSE Atrial Rate 89 BPM P-R Interval 126 ms QRS Duration 136 ms Q-T Interval 424 ms QTC Calculation(Bazett) 515 ms P Teaberry 85 degrees R Teaberry -40 degrees T Teaberry 64 degrees Normal sinus rhythm Left axis deviation Left ventricular hypertrophy with QRS wi dening Right bundle branch block Abnormal ECG When compared with ECG of 31-MAR-2019 13 :49, Right bundle branch block is no longer P resent Confirmed by MD Lamin, Kadeem ([id number]) on 09/06 9:27:51 AM Procedure Note Interface, External Ris In - 09/07/2019 9:27 AM CDT Ventricular Rate 89 BPM Atrial Rate 89 BPM P-R Interval 126 ms QRS Duration 136 ms Q-T Interval 424 ms QTC Calculation(Bazett) 515 ms P Teaberry 85 degrees R Teaberry -40 degrees T Teab[place] 64 degrees Normal sinus rhythm Left axis deviation Left ventricular hypertrophy with QRS wi dening Right bundle branch block Abnormal ECG When compared with ECG of 31-MAR-2019 13 :49, Right bundle branch block is no longer P resent Confirmed by MD Kimble Roberto ([id number]) on 09/07/2019 9:27:51 AM Performing Organization Address City/State/Zipcode Phone Number [facility] [place] POCT-P2Y12 PLATELET AGGREGATION (09/06/2019 9:34 AM CDT)Only the most recent of 2 resultswithin the time period is included. Pathologist Sig nature POC-P2Y12 Plt Agg 79 PRU [facility] Specimen Blood - Entire right upper arm (body str ucture) Narrative Performed At RANGE INFORMATION: PRU reference range is [facility] 194-418. Post Drug Results: Lower PRU levels are associated with expected antiplatelet effect. Values may be below the stated reference range above. The post-drug PRU values reported in the [employer]Now P2Y12 package insert are [id number]. Performing Organization Address [facility] Phone Number [address] [address] [place] POCT-ASPIRIN PLATELET AGGREGATION (09/06/2019 9:34 AM CDT)Only the most recent of2 resultswithin the time period is included. Pathologist Sig nature POC-Aspirin Plt Agg 385 ARU [facility] Specimen Blood - Entire right upper arm (body str ucture) Narrative Performed At RANGE INFORMATION: 350-549 ARU Therapeutic [facility] range for platelet function. 550-700 ARU Non-Therapeutic range for platelet function. Performing Organization Address [facility] Phone Number [address] [address] CENTER Basic Metabolic Panel (09/06/2019 9:34 AM CDT)Only the most recent of13 results within the time period is included. Sodium 138 136 - 145 meq/L [facility] Potassium 5.4 (H)Comment: 3.5 - 5.1 meq/L [facility] Specimen slightly [facility] hemolyzed CENTER Chloride 107 98 - 107 meq/L [facility] CO2 23 22 - 29 meq/L [facility] BUN 60 (H) 7 - 21 mg/dL [facility] Creatinine 2.09 (H)Comment: 0.57 - 1.25 [facility] Specimen slightly mg/dL [facility] hemolyzed CENTER Glucose 108 (H) 70 - 105 mg/dL [facility] Calcium 9.9 8.4 - 10.2 [facility] mg/dL [facility] EGFR 23Comment: ESTIMATED mL/min/1.73 sq [facility] GFR IS NOT m [facility] ACCURATE CENTER CREATININE CLEARANCE IN PREDICTING GLOMERULAR FILTRATION RATE. ESTIMATED GFR IS NOT APPLICABLE FOR DIALYSIS PATIENTS. Specimen Blood - Entire right upper arm (body str ucture) Narrative Performed At [facility] CENTER Performing Organization Address City/[facility]/Zipcode Phone Number [address] [address] CENTER Type and screen, automated (09/06/2019 9:33 AM CDT)Only the most recent of3 resultswithin the time period is included. Pathologist Sig nature ABO/RH AUTOMATED A POSITIVE [facility] Ab Scrn NEGATIVE [facility] Specimen Blood Performing Organization Address City/[facility]/Zipcode Phone Number [facility] [address] [place] [address] PT/aPTT (09/06/2019 9:33 AM CDT)Only the most recent of4 resultswithin the time period is included. Pathologist Sig nature Protime 12.8 11.9 - 14.2 seconds [facility] INR 1.0 <=5.9 [facility] PTT 25.6 22.5 - 36.0 seconds [facility] Specimen Blood - Entire right upper arm (body str ucture) Narrative Performed At Effective 09/07/2018: PT Reference Range [facility] Change New: 11.9-14.2 Previous: 11.7-14.7 RECOMMENDED COUMADIN/WARFARIN INR THERAPY RANGES STANDARD DOSE: 2.0-3.0 Includes: PROPHYLAXIS for venous thrombosis, systemic embolization; TREATMENT for venous thrombosis and/or pulmonary embolus. HIGH RISK: Target INR is 2.5-3.5 for patients wiht mechanical heart valves. Performing Organization Address City/State/Zipcode Phone Number [facility] [address] [place] [address] CENTER CBC with platelet count + automated diff (09/06/2019 9:33 AM CDT)Only the most recent of3 resultswithin the time period is included. Pathologist Sig nature WBC 14.6 (H) 3.5 - 10.5 [facility] K/L [facility] RBC 3.55 (L) 3.93 - 5.22 [facility] M/L [facility] Hemoglobin 10.5 (L) 11.2 - 15.7 [facility] GM/DL [facility] Hematocrit 34.1 34.1 - 44.9 % [facility] MCV 96.1 (H) 79.4 - 94.8 fL [facility] MCH 29.6 25.6 - 32.2 pg [facility] MCHC 30.8 (L) 32.2 - 35.5 [facility] GM/DL [facility] RDW 14.0 11.7 - 14.4 % [facility] Platelets 280 150 - 450 K/CU [facility] MPV 11.0 9.4 - 12.3 fL [facility] nRBC 0 0 - 0 /100 WBC [facility] % Neutros 75 % [facility] % Lymphs 14 % [facility] % Monos 6 % [facility] % Eos 4 % [facility] % Baso 0 % [facility] # Neutros 11.01 (H) 1.56 - 6.13 [facility] # Lymphs 1.99 1.18 - 3.74 [facility] # Monos 0.92 (H) 0.24 - 0.36 [facility] # Eos 0.58 (H) 0.04 - 0.36 [facility] # Baso 0.04 0.01 - 0.08 [facility] Immature 1 0 - 1 % [facility] Granulocytes-Relativ [facility] e [place] Specimen Blood Performing Organization Address City/State/Zipcode Phone Number [address] [address] [place] RHYTHM STRIP - SCAN (05/31/2019 11:43 AM MAGAZINE DESIGNER) Narrative Performed At This result has an attachment that is no t available. POC-Glucose meter (05/29/2019 12:35 PM MAGAZINE DESIGNER)Only the most recent of40 results within the time period is included. POC-Glucose Meter 133 (H)Comment: : 70 - 110 [facility] TESTED AT [facility] mg/dL [address], [address]: [facility]/Technicia n ID = [id number] for TSEGGAI, TSCARMENEREDA Specimen Blood Performing Organization Address City/[facility]/Zipcode Phone Number [address] [address] [place] Hemoglobin and hematocrit (05/27/2019 10:27 AM MAGAZINE DESIGNER)Only the most recent of3 resultswithin the time period is included. Pathologist Sig nature Hemoglobin 9.3 (L) 11.2 - 15.7 GM/DL [facility] Hematocrit 28.8 (L) 34.1 - 44.9 % [facility] Specimen Blood Narrative Performed At [facility] ID - [id number] [facility] CENTER Performing Organization Address City/State/Zipcode Phone Number [facility] [address] [place], [place] [phone] CENTER Magnesium (05/26/2019 5:18 AM MAGAZINE DESIGNER)Only the most recent of5 resultswithin the time period is included. Pathologist Sig nature Magnesium 1.7 1.6 - 2.6 mg/dL [facility] Specimen Blood Narrative Performed At [facility] ID - KEARA W [facility] CENTER Performing Organization Address City/State/Zipcode Phone Number [facility] [address] [place], [place] [phone] CENTER XR chest 1 view portable / bedside (05/25/2019 7:24 PM MAGAZINE DESIGNER) Specimen Narrative Performed At FINAL REPORT GE [...] External Ris In - 05/25/2019 9:43 PM MAGAZINE DESIGNER FINAL REPORT RAD, CHEST, 1 VIEW, NON [...] Date/Time: 05/25/2019 2 1:41:23 Performing Organization Address City/[facility] Phone Number GE RIS CBC (Hemogram only) (05/24/2019 4:59 AM MAGAZINE DESIGNER)Only the most recent of15 results within the time period is included. Pathologist Sig nature WBC 11.1 (H) 3.5 - 10.5 K/L [facility] RBC 2.67 (L) 3.93 - 5.22 M/L [facility] Hemoglobin 7.8 (L) 11.2 - 15.7 GM/DL [facility] Hematocrit 24.6 (L) 34.1 - 44.9 % [facility] MCV 92.1 79.4 - 94.8 fL [facility] MCH 29.2 25.6 - 32.2 pg [facility] MCHC 31.7 (L) 32.2 - 35.5 GM/DL [facility] RDW 14.1 11.7 - 14.4 % [facility] Platelets 283 150 - 450 K/CU MM [facility] MPV 11.1 9.4 - 12.3 fL [facility] nRBC 0 0 - 0 /100 WBC [facility] Specimen Blood Performing Organization Address City/[facility]/Zipcode Phone Number [facility] [address] [place] [address] CENTER Prepare Leuko-Red RBC (05/23/2019 11:54 PM MAGAZINE DESIGNER)Only the most recent of2 results within the time period is included. Pathologist Sig nature CROSSMATCH COMPATIBLE SAFETRACE TX Unit ABO A Pos SAFETRACE TX UNIT NUMBER [id number] SAFETRACE TX Status TX_TIMEINCHART SAFETRACE TX Blood Bank Product RED BLOOD CELLS SAFETRACE TX PRODUCT CODE [id number] SAF[place]ACE [place] Specimen Other Performing Organization Address City/[facility]/Zipcode Phone Number SAFETRACE TX Transfuse Leuko-Red RBC (05/22/2019 4:22 PM MAGAZINE DESIGNER)Only the most recent of2 resultswithin the time period is included.PERIPHERAL VASCULAR REPORT - SCAN (05/21/2019 9:10 PM MAGAZINE DESIGNER) Narrative Performed At This result has an attachment that is no t available. Potassium (05/21/2019 1:28 PM MAGAZINE DESIGNER) Pathologist Sig nature Potassium 3.9 3.5 - 5.1 meq/L [facility] Specimen Blood Narrative Performed At [facility] ID - [facility] Performing Organization Address [facility] Phone Number [address] [address] CENTER Uric acid (05/21/2019 5:59 AM MAGAZINE DESIGNER) Pathologist Sig nature Uric Acid 5.7 2.6 - 7.2 mg/dL [facility] Specimen Blood Narrative Performed At [facility] ID - [facility] Performing Organization Address [facility] Phone Number [address] [address] [place] Venous doppler legs bilateral (05/20/2019 7:30 PM MAGAZINE DESIGNER) Pathologist Sig nature Ejection Fraction [facility] ECHO HEARTLAB [facility] Specimen Impressions Performed At Right Impression [facility] ECHO HEARTLAB [facility] HE[facility] 1. There is no deep venous obstruction [...] At LAB - Lower Extremities DVT Study [facility] ECHO HEARTLAB [facility] Demographics Patient Name BHARATI BRAVO Date of Study 05/20/2019 Age 79 Visit Number [id number] Gender Female Accession Number [id number] Date of 1940 Referring Mina Flower Room Number [id number] Physician Sports Clerk Kelsey Kaufman Interpreting Tonya Burleson T Physician Procedure [...] External Ris In - 05/21/2019 8:28 AM MAGAZINE DESIGNER PV LAB - Lower Extremities DVT Study Demographics Patient Name BHARATI BRAVO Dom e of Study 05/20/2019 Age 79 Visit Number [id number] Gen hebert Female Accession Number [id number] Dom e of 1940 Referring Mina Angulo Number [id number] Physician Sports Clerk Kelsey Kaufman [facility] Tonya Burleson, T Cira mcdonald MD Procedure [...] are measured in cm Performing Organization Address [facility] Phone Number [facility] ECHO HEARTLAB [facility] CPACS Iron, TIBC, % sat. (without ferritin) (05/20/2019 5:50 PM MAGAZINE DESIGNER) Pathologist Sig nature Iron 14.0 (L) 40.0 - 160.0 [facility] ug/dL [facility] TIBC 264 250 - 450 ug/dL [facility] Iron % Saturation 5 (L) 20 - 55 % [facility] Specimen Blood Narrative Performed At [facility] ID - [facility] Performing Organization Address [facility] Phone Number [address] [address] CENTER Transferrin (05/20/2019 5:50 PM MAGAZINE DESIGNER) Pathologist Sig nature Transferrin 211 174 - 382 mg/dL [facility] Specimen Blood Narrative Performed At [facility] ID - [facility] Performing Organization Address [facility] Phone Number [address] [address] CENTER Ferritin (05/20/2019 5:50 PM MAGAZINE DESIGNER) Pathologist Sig nature Ferritin 29 5 - 275 ng/mL [facility] DICAL [place] Specimen Blood Narrative Performed At [facility] ID - [facility] Performing Organization Address [facility] Phone Number [address] [address] CENTER XR ankle 1 view left (05/20/2019 10:10 AM MAGAZINE DESIGNER) Specimen Narrative Performed At FINAL REPORT GE RIS TECHNIQUE: Two views of left ankle HISTORY: left ankle pain. COMPARISON: None. IMPRESSION: No acute displaced fracture or dislocati on. Joint spaces are within normal limits. Minimal Achilles enthesopathy. Large nisa ntar calcaneal spur and enthesopathy. Signed: Steven Lyman MD Report Verified Date/Time: 05/20/2019 18:09:20 Reading Location: [facility] [id number] Consult R eading Room Procedure Note Interface, External Ris In - 05/20/2019 6:11 PM MAGAZINE DESIGNER FINAL REPORT TECHNIQUE: Two views of left ankle HISTORY: left ankle pain. COMPARISON: None. IMPRESSION: No acute displaced fracture or dislocati on. Joint spaces are within normal limits. Minimal Achilles enthesopathy. Large nisa ntar calcaneal spur and enthesopathy. Signed: Steven Lyman MD Report Verified Date/Time: 05/20/2019 1 8:09:20 Reading Location: [facility] B1 C013W Consult R eading Room Performing Organization Address City/[facility]/Zipcode Phone Number [facility] REPORT OF PROCEDURE - ENDOSCOPY URL (05/20/2019 8:39 AM MAGAZINE DESIGNER) Narrative Performed At This result has an attachment that is no t available. Phosphorus (05/20/2019 4:06 AM MAGAZINE DESIGNER)Only the most recent of3 resultswithin the time period is included. Pathologist Sig nature Phosphorus 3.3Comment: 2.3 - 4.7 mg/dL [facility] MEDICAL hemolyzed CENTER Specimen Blood Narrative Performed At [facility] ID - TERRI Chao [facility] Performing Organization Address City/[facility]/Zipcode Phone Number [address] [address] CENTER Fibrinogen (05/19/2019 7:25 AM MAGAZINE DESIGNER) Pathologist Sig nature Fibrinogen 489 (H) 225 - 434 mg/dl [facility] Specimen Blood Performing Organization Address City/State/Zipcode Phone Number [facility] [address] [place] [address] CENTER [place] Carotid Artery Stent Placement w/Protection (05/17/2019 3:25 PM MAGAZINE DESIGNER) Specimen Narrative Performed At FINAL REPORT [place] Date of procedure May 17, 2019 CLINICAL [...] guidance and strict sterile technique a 6 Fijian shuttle she ath was inserted through the [...] of approximately 70%. A distal protective device (EmbVaybee) wa s gently navigated through the stenotic [...] the stent to the arterial wall with christianity of the intraluminal flow and mild residual stenosis of approximately 20%. There is no evidence of platelet aggregation, or dissection. Int racranially there is christianity of good antegrade flow with no evidence [...] Report Verified Date/Time: 05/17/2019 15:10:42 Reading Location: [facility] B1 Y018 Neuro Radha o Reading Room Procedure Note Interface, External Ris In - 05/17/2019 3:32 PM MAGAZINE DESIGNER FINAL REPORT Date of procedure May 17, [...] guidance and strict sterile technique a 6 Fijian shuttle she ath was inserted through the [...] the stent to the arterial wall with christianity of the intraluminal flow and mild residual stenosis of approximately 20%. There is no evidence of platelet aggregation, or dissection. Int racranially there is christianity of good antegrade flow with no evidence [...] Verified Date/Time: 05/17/2019 1 5:10:42 Reading Location: [facility] [address] [place] [address] Reading Room Performing Organization Address City/State/Zipcode Phone Number GE RIS aPTT (05/17/2019 8:55 AM MAGAZINE DESIGNER)Only the most recent of6 resultswithin the time period is included. Pathologist Sig nature PTT 37.6 (H) 22.5 - 36.0 seconds [facility] Specimen Blood Performing Organization Address City/State/Zipcode Phone Number [address] [address] CENTER Prothrombin time/INR (05/17/2019 8:55 AM MAGAZINE DESIGNER)Only the most recent of2 results within the time period is included. Pathologist Sig nature Protime 13.7 11.9 - 14.2 seconds [facility] INR 1.1 <=5.9 [facility] Specimen Blood Narrative Performed At Effective 09/07/2018: PT Reference Range [facility] Change New: 11.9-14.2 Previous: 11.7-14.7 RECOMMENDED COUMADIN/WARFARIN INR THERAPY RANGES STANDARD DOSE: 2.0-3.0 Includes: PROPHYLAXIS for venous thrombosis, systemic embolization; TREATMENT for venous thrombosis and/or pulmonary embolus. HIGH RISK: Target INR is 2.5-3.5 for patients wiht mechanical heart valves. Performing Organization Address City/State/Zipcode Phone Number [facility] [address] [place] [address] CENTER NV cerebral 4 vessel angiogram (05/16/2019 4:14 PM MAGAZINE DESIGNER) Specimen Narrative Performed At FINAL REPORT [place] Date of service May 16, 2019 CLINICAL [...] and . Neuroleptic sedation was provided by [facility]. Using a micropuncture set and under fluo roscopic guidance and strict sterile technique a 4 Fijian femoral she ath was inserted into the right radial artery. Through the sheath a 4 Fijian Weaver catheter was then advanced over the [...] Report Verified Date/Time: 05/16/2019 16:45:20 Reading Location: [facility] Y018 [facility] Reading Room Procedure Note Interface, External Ris In - 05/16/2019 4:47 PM MAGAZINE DESIGNER FINAL REPORT Date of service May 16, [...] and . Neuroleptic sedation was provided by [facility]. Using a micropuncture set and under fluo roscopic guidance and strict sterile technique a 4 Fijian femoral she ath was inserted into the right radial artery. Through the sheath a 4 Fijian [employer] catheter was then advanced over the wire [...] Verified Date/Time: 05/16/2019 1 6:45:20 Reading Location: [facility] B1 Y018 Neuro Radha o Reading Room Performing Organization Address City/State/Zipcode Phone Number GE RIS Carotid doppler bilateral (05/16/2019 12:00 PM MAGAZINE DESIGNER) Pathologist Sig nature Ejection Fraction [facility] ECHO HEARTLAB [facility]CK [facility] CPACS Specimen Impressions Performed At Right Impression [facility] ECHO HEARTLAB [facility] CPACS 1. The internal carotid artery is [...] Additional Measurements:ICAPSV/CCAPSV 5.8.ICAEDV/CCAEDV 19.78. Narrative Performed At [facility] - Carotid Duplex Study [facility] Demographics Patient Name BHARATI BRAVO Date of Study 05/16/2019 Age 79 Visit Number [id number] Gender Female Accession Number [id number] Date of 1940 Referring SHALONDA BENNETT Room Number 7518 Physician Sports Clerk Pramod Pizarro Interpreting Tonya Burleson Jose Physician Procedure Type of Study: Cerebral: Carotid, CAROTID DOPPLER, CHARLES ATERAL. Indications for Study:Carotid stenosis . Patient Status:Routine. Study Location:Portable. Technical Quality:Adequate visualization . - Results were reported to:SARAI DOHERTY@1 200. Risk Factors History of Disease +---------+----+ + !Diagnosis!Date!Comments ! +---------+----+ + !Other ! !Carotid Stenosis, Stroke ! +---------+----+ + Procedure Note Interface, External Ris In - 05/17/2019 1:06 PM MAGAZINE DESIGNER PV LAB - Carotid Duplex Study Demographics Patient Name BHARATI BRAVO Dom e of Study 05/16/2019 Age 79 Visit Number [id number] Gen hebert Female Accession Number [id number] Dom e of 1940 Referring SHALONDA LOUISEJoseYEVGENIY Adele m Number 7518 Physician Sports Clerk Pramod Pizarro Int erpreting Tonya Sarah BethXOCHILT pascual MD Procedure Type of Study: Cerebral: Carotid, [...] Measurements:ICAPSV/CCAPS V 5.8.ICAEDV/CCAEDV 19.78. Performing Organization Address [facility]/Zipcode Phone Number [facility] ECHO HEARTLAB [facility] CPACS Platelet count (05/16/2019 2:36 AM MAGAZINE DESIGNER) Pathologist Sig nature Platelets 231 150 - 450 K/CU MM [facility] Specimen Blood Narrative Performed At [facility] ID - [id number] [facility] Performing Organization Address City/[facility]/Zipcode Phone Number [facility] [address] [place] [address] CENTER CTA carotid (05/15/2019 11:45 PM MAGAZINE DESIGNER) Specimen Narrative Performed At FINAL REPORT [place] EXAM: CT, CT Angio, Brain. CT Carotid [...] External Ris In - 05/16/2019 1:12 AM MAGAZINE DESIGNER FINAL REPORT EXAM: CT, CT Angio, Brain. [...] Date/Time: 05/16/2019 0 1:09:25 Performing Organization Address City/[facility] Phone Number [place] [facility] brain cerebral perfusion analysis (05/15/2019 11:45 PM MAGAZINE DESIGNER) Specimen Narrative Performed At FINAL REPORT [place] CT cerebral perfusion analysis. Comparison: None. Reason [...] External Ris In - 05/16/2019 1:25 AM MAGAZINE DESIGNER FINAL REPORT CT cerebral perfusion analysis. Comparison: [...] 1:22:48 Performing Organization Address City/State/Zipcode Phone Number GE RIS CTA brain (05/15/2019 11:45 PM MAGAZINE DESIGNER) Specimen Narrative Performed At FINAL REPORT Get[employer] PRAMOD EXAM: CT, CT Angio, Brain. CT Carotid [...] External Ris In - 05/16/2019 1:12 AM MAGAZINE DESIGNER FINAL REPORT EXAM: CT, CT Angio, Brain. [...] 1:09:25 Performing Organization Address City/State/Zipcode Phone Number [place] brain/stroke test design (05/15/2019 11:21 PM MAGAZINE DESIGNER) Specimen Narrative Performed At FINAL REPORT [place] EXAM: CT head without contrast. CLINICAL HISTORY: [...] External Ris In - 05/15/2019 11:36 PM MAGAZINE DESIGNER FINAL REPORT EXAM: CT head without contrast. [...] 3:34:22 Performing Organization Address City/State/Zipcode Phone Number [facility] Vitamin B12 and Folate (05/15/2019 6:09 AM MAGAZINE DESIGNER) Pathologist [facility] Vitamin B12 472 213 - 816 pg/mL [facility] Folate 19.4 >=7.0 ng/mL [facility] Specimen Blood Narrative Performed At [facility] DEDE Raymond [facility] Performing Organization Address City/[facility]/Zipcode Phone Number [facility] [address] [place] [address] CENTER Lipid panel (05/15/2019 6:09 AM MAGAZINE DESIGNER) Pathologist Sig nature Triglycerides 341 mg/dL [facility] Cholesterol 199 mg/dL [facility] HDL 41 mg/dL [facility] LDL Calculated 90 mg/dL [facility] Specimen Blood Narrative Performed At Triglyceride Reference Range: [facility] Low Risk <150 Borderline 150-199 High Risk 200-499 Very High Risk >=500 Cholesterol Reference Range: Low Risk <200 Borderline 200-239 High Risk >240 HDL Cholesterol Reference Range: Low Risk >=60 High Risk <40 LDL Cholesterol Reference Range: Optimal <100 Near Optimal 100-129 Borderline 130-159 High 160-189 Very High >=190 [facility] ID - MARITZA L Performing Organization Address City/State/Zipcode Phone Number [address] [phone] [place] Hemoglobin A1c (05/15/2019 6:08 AM MAGAZINE DESIGNER) Pathologist Chaz thomas Hemoglobin A1C 5.8 4.3 - 6.1 % [facility] Specimen Blood Performing Organization Address [facility] Phone Number [address] [address] [place] MR brain without IV contrast (05/15/2019 2:26 AM MAGAZINE DESIGNER) Specimen Narrative Performed At FINAL REPORT [place] EXAM: MR, BRAIN, WITHOUT CONTRAST CLINICAL INDICATION: [...] External Ris In - 05/15/2019 4:10 AM MAGAZINE DESIGNER FINAL REPORT EXAM: MR, BRAIN, WITHOUT CONTRAST [...] Address City/State/Zipcode Phone Number GE RIS after 03/16/2019 Insurance Payer Benefit Plan / Subscriber ID Effective Phone Address T [facility] Group Dates HUMANA - HUMANA [id number] 2018-Prese Maps Contracted MEDICARE MGD MEDICARE ADV nt CARE Advance Directives For more information, please contact: [phone] Code Status Date Activated Date Inactivated Comments Full Code 05/14/2019 4:27 PM 05/29/2019 8:25 PM This code status was determined by: Patient
--- OUTSIDE RECORDS SUMMARY | 2020-03-16 08:12 | XMS REPORT | Continuity of Care Document ---
:1940 Author Organization [facility] t Address [address] [place] [address] Care Team Providers Name Role Phone Aaron Morton Primary Care Physician Anna CM, Eva Attending Clinician Unavailable Unknown Attending Clinician Unavailable India Carrasco MD Attending Clinician Pob, Lab Main Attending Clinician Unavailable Doctor Unassigned, Name Attending Clinician Unavailable [facility] Attending Clinician Unavailable Vls-Lab Attending Clinician Unavailable Only, Test Attending Clinician Unavailable India Carrasco MD Attending Clinician Unavailable INDIA CARRASCO Attending Clinician Unavailable Katya DOHERTY, Thi Attending Clinician Claudia Mora Attending Clinician Dale Flores MD Attending Clinician Shalonda DOHERTY Attending Clinician Charles Lebron MD Attending Clinician [phone] Sami Flower MD Attending Clinician Jun DOHERTY Attending Clinician Yvan Antonio MD Attending Clinician Gonzalo DOHERTY Attending Clinician Thomas Daniels MD Attending Clinician Arslan Ann MD Attending Clinician Katja DOHERTY, Chetan Attending Clinician Virtual Attending Clinician Unavailable Andres DOHERTY, Iam Attending Clinician Gurdeep DOHERTY, Bakari Attending Clinician DALE FLORES Attending Clinician Unavailable Jean Owens Attending Clinician Unavailable India Carrasco MD Admitting Clinician SHALONDA Admitting Clinician Unavailable INDIA CARRASCO Admitting Clinician Unavailable Payers Payer Name Policy Type Policy Effective Date Expiration Date Sour ce Number HUMANA - MEDICARE [id number] [address] [facility] MGD CAREHUMANA 00:00:00 - Medical MEDICARE Center [id number] 019-PresentMaps Contracted Problems Condition Condition Condition Status Onset Resolution Last Treating Co mments Source Name Details Category Date Date Treatment Clinician Date Acute Acute Disease Active 2020-[address] [facility] blood loss blood loss 2- Ella kes - anemia anemia 00:00: Medical 00 [place] Gout flare Gout flare Disease Active 2020-[address] [facility]- [facility] - 00:00: Medical 00 [place] COPD COPD Disease Active 2020-[address] [facility] (chronic (chronic 2-11 [facility] - obstructiv obstructiv 00:00: Me dical e e 00 Center pulmonary pulmonary disease) disease) Gastroesop Gastroesop Disease Active 2020-[address] hageal hageal 2-11 [facility] - reflux reflux 00:00: Medical disease disease 00 Center with with esophagiti esophagiti s s HLD HLD Disease Active 2020-[address] [facility] (hyperlipi (hyperlipi 2-11 Ella kes - demia) demia) 00:00: Medical 00 [place] Hypothyroi Hypothyroi Disease Active 2020-[address] dism dism 2- [facility] - 00:00: Medical 00 Center Coagulopat Coagulopat Disease Active 2020-[address] hy hy 2-11 [facility] - 00:00: Medical 00 [place] 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 00:00: Medica l 00 Center Cerebral Cerebral Disease Active 2020-0 [facility] hypoperfus hypoperfus 2-05 [facility] - ion ion 00:00: Medical 00 [place] Hypertensi Hypertensi Disease Active [facility] ve crisis ve crisis 2-05 [facility] - 00:00: Medical [place] Atrial Atrial Disease Active [facility] fibrillati fibrillati 2-04 Ella k[facility] - on on 00:00: Medical [place] Hypertensi Hypertensi Disease Active [facility] on on 2 [facility] - 00:00: Medical [place] Carotid Carotid Disease Active [facility] stenosis, stenosis, 2- [facility] - left left 00:00: Medical [place] Acute Acute Disease Active [facility] ischemic ischemic 2- [facility] - stroke stroke 00:00: Medical [place] RUE RUE Disease Active [facility] weakness weakness 2- [facility] - 00:00: Medical [place] Allergies, Adverse Reactions, Alerts Allergy Allergy Status Severity Reaction(s) Onset Inactive Treating Comm ents Source Name Type Date Date Clinician Herb Marcumensi Active Nausea And Per [facility] to Vomiting 2- daughter [facility] - adverse 00:00: Medical reaction 00 [place] s Amlodipi Propensi Active 2018-[address] ne ty to 2-19 [facility] - adverse 00:00: Medical reaction 00 [place] s Hydrocod Propensi Active 2018-[address] one-Acet ty to 2-19 [facility] - aminophe adverse 00:00: Medical n reaction 00 [place] s Morphine Propensi Active 2018-[address] ty to 2-19 [facility] - adverse 00:00: Medical reaction 00 Center s Baclofen Propensi Active Other (See 2016-[address] ty to Comments) 2-25 [facility] - adverse 00:00: Medical reaction 00 Center s Propoxyp Propensi Active Nausea And 2016-[address] hene ty to Vomiting 2-25 [facility] - Napsylat adverse 00:00: Medical e reaction 00 Center s Cycloben Propensi Active Nausea And 2015-[address] zaprine ty to Vomiting 2-21 [facility] - adverse 00:00: Medical reaction 00 [place] s Codeine Propensi Active Nausea And 2015-[address] [facility] ty to Vomiting, 2-20 [facility] - adverse Palpitations 00:00: Med ical reaction , Hives 00 Center s Social History Social Habit Start Date Stop Date Quantity Comments Source History of tobacco Current smoker [facility] use [facility] Center History [facility] - Alcohol Std Drinks Medica l [place] History [facility] - Alcohol Binge Medical Carolee ter Sex Assigned At [facility] Cigarettes smoked 2019-08-30 2019-08-30 [facility] - current (pack per 00:00:00 00:00:00 [facility] Center day) - Reported Tobacco use and 2019-08-30 2019-08-30 Never used [facility] jose - exposure 00:00:00 00:00:00 [facility] Alcohol intake 2019-08-30 2019-08-30 [facility] 00[facility]00:00 non-drinker of Medical Ce nter alcohol (finding) History [facility] 2019-03-31 2019-03-31 [address] [facility] [address] [facility] - Alcohol Frequency 00:00:00 00:00:00 [facility] Smoking Status Start Date Stop Date Source Former smoker 2019-08-30 00:00:00 2019-08-30 00:00:00 [facility] Medications Ordered Filled Start Stop Current Ordering Indication Dosage Frequency Signature Comments Components Source Medication Medication Date Date Medication? Clinician (SIG) Name Name aspirin 325 Yes 325mg QD Take [address] MG tablet 5-27 mg by [facility] - 10:35: mouth Medical 24 daily. [place] ticagrelor Yes 90mg Q.5D Take 90 mg [...] . Medical tablet 57 :00 Center rivaroxaban 2019-0 2020- No 20mg Take [address] [facility] [facility] [...] (two) times daily before meals. aspirin 81 2019-0 2020- No 81mg QD Take 1 [facility] [...] 17 needed. Center gabapentin 2020-0 Yes 300mg [id number] Take [address] (NEURONTIN) 2-17 [id number] mg by L ukes - 300 MG [...] morning on tablet an empty stomach. hydrALAZINE 2019- No 100mg Q.5D Take [address] (APRESOLINE 2-17 02-17 mg by [facility]ukes - ) 100 MG 15:39: 00:00 mouth 2 Medic al tablet 37 :00 (two) Center times daily. rivaroxaban 2019- No Take by [facility] (XARELTO) 2-17 02-17 mouth [facility] - 20 mg Tab 15:39: 00:00 daily with M edical tablet 37 :00 dinner. Center cloNIDine 2019- No .2mg Q.[id number] Take 0.[address] HCl 2-17 02-17 [id number] mg by [facility] - (CATAPRES) 15:39: 00:00 3D mouth 3 Med ical 0.2 MG 34 :00 (three) Center tablet times daily. hydrALAZINE 2019-0 Yes 100mg Q.[id number] Take [address] (APRESOLINE 2-17 [id number] tablet [facility] - ) 100 MG 00:00: 3D (100 mg Medica l tablet 00 total) by Center mouth 3 (three) times daily. melatonin 2019-0 Yes 10mg QD Take [address] 10 mg Tab 2-17 by mouth [facility] - 00:00: nightly. Medical 00 Center pantoprazol 2019-0 Yes 40mg QD Take [address] e 2-17 tablet (40 [facility] - (PROTONIX) 00:00: mg total) Me dical 40 MG 00 by mouth Center tablet daily. cloNIDine 2019-2020- No .2mg QD Take 1 [facility] HCl 2-17 02-16 tablet [facility] - (CATAPRES) 00:00: 23:59 (0.2 mg Med ical 0.2 MG 00 :00 total) by Center tablet mouth nightly. atorvastati No 80mg QD Take [address] n (LIPITOR) 05-29 02-16 tablet (80 L ukes - 80 MG [...] Wheezing for up to 360 days. ferrous 2019-2019- No 325mg Take [address] [facility] sulfate [...] :00 total) by Center mouth nightly. ticagrelor 2019-2019- No 90mg Q.5D Take [address] (BRILINTA) 05-29 03-04 tablet (90 [facility] k[facility] - 90 mg Tab 00:00: 23:59 mg total) Me dical tablet 00 :00 by mouth 2 Center (two) times daily for 16 days. guaiFENesin 2019- No 600mg Q.5D Take [address] (MUCINEX) 05-2927 tablet [facility] - 600 mg 12 00:00: 23:59 (600 mg Medi jayce hr tablet 00 :00 total) by Cente r mouth 2 (two) times daily for 10 days. benzonatate 2019-2019- No 100mg Take [address] (TESSALON) 05-2924 capsule [facility] - 100 MG 00:00: 23:59 (100 mg Medical capsule 00 :00 total) by Center mouth 3 (three) times daily as needed for Cough for up to 7 days. predniSONE 40mg QD Take [address] (DELTASONE) 2-17 02-22 tablets Luke s - 10 MG 00:00: 23:59 (40 mg Medical tablet 00 :00 total) by Center mouth daily for 5 days. doxepin 25mg QD Take [address] (SINEQUAN) 05-15-03 by mouth Luke [facility] - 25 MG 14:19: 00:00 nightly. Medical capsule 34 :00 [place] amLODIPine 5mg QD Take [address] (NORVASC) 05-1503 by mouth [facility] - 2.5 MG 14:19: 00:00 daily . Medical tablet 05 :00 [place] azilsartan 2018-[address] medoxomil 06-01 12-20 mouth. [facility] - 80 mg Tab 12:31: 00:00 Medical 46 :00 [place] amLODIPine 2018-04 5mg QD Take [address] (NORVASC) 5 04-23 by mouth Marc es - MG tablet 00:00: 00:00 daily. Medic al 00 :00 [place] Vital Signs Vital Name Observation Time Observation Value Comments Source Systolic blood 2019-09-06 11:36:00 110 mm[Hg] [facility] pressure [facility] Diastolic blood 2019-09-06 11:36:00 65 mm[Hg] [facility] S [facility] Heart rate 2019-09-06 11:36:00 62 /min [facility] Body temperature 2019-09-06 11:36:00 35.78 Sri [facility] Respiratory rate 2019-09-06 11:36:00 20 /min [facility] Oxygen saturation in 2019-09-06 11:36:00 96 /min [facility] Arterial blood by Medical Ce nter Pulse oximetry Body height 2019-08-30 09:30:00 167.6 cm [facility] Body weight 2019-08-30 09:30:00 90.719 kg [facility] BMI 2019-08-30 09:30:00 32.28 kg/m2 [facility] Procedures Procedure Date / Time Performing Clinician Source Performed TRANSFUSION SERVICE 2019-09-07 17:53:54 Provider, Default [facility] REPORT - SCAN [facility] SARS-COV2/RT-PCR ([facility] 2019-09-07 00:01:00 [facility] - & REF LABS) [facility] ECG 12-LEAD 2019-09-06 09:35:00 Unknown, Hl7 Doctor [facility] POCT-P2Y12 PLATELET 2019-09-06 09:34:00 Livia Mora [facility] AGGREGATION [facility] POCT-ASPIRIN PLATELET 2019-09-06 09:34:00 Livia Mora [facility] BASIC METABOLIC PANEL 2019-09-06 09:34:[address] [facility] (7) [facility] PT/APTT 2019-09-06 09:33:00 Livia Mora [facility] TYPE AND SCREEN, 2019-09-06 09:33:00 Livia Mora [facility] AUTOMATED [facility] CBC W/PLT COUNT & AUTO 2019-09-06 09:33:00 Livia Mora [facility] DIFFERENTIAL [facility] RHYTHM STRIP - SCAN 2019-05-31 11:43:59 Provider, Default [facility] POCT-GLUCOSE METER 2019-05-29 12:35:00 Kevin Antonio [facility] POCT-GLUCOSE METER 2019-05-29 07:40:00 Kevin Antoniod [facility] POCT-GLUCOSE METER 2019-05-28 20:54:00 [facility] 2019-05-28 17:20:00 [facility] POCT-GLUCOSE METER 2019-05-28 11:38:00 [facility] POCT-GLUCOSE METER 2019-05-28 07:25:[facility] PO[facility]UCOSE METER 2019-05-27 22:17:00 [facility] HEMO[facility] AND 2019-05-27 10:27:00 Nikki Zuniga [facility] POCT-GLUCOSE METER 2019-05-26 23:30:00 [facility] POCT-GLUCOSE METER 2019-05-26 11:54:00 [facility] HEMOGLOBIN AND 2019-05-26 05:18:00 Nikki Zuniga [facility] BASIC METABOLIC PANEL 2019-05-26 05:18:00 Nikki Zuniga [facility] (7) [facility] MAGNESIUM 2019-05-26 05:18:00 Nikki Zuniga [facility] POCT-GLUCOSE METER 2019-05-25 22:12:00 Nikki Zuniga [facility] XR CHEST 1 VIEW 2019-05-25 19:24:00 Nikki Zuniga [facility] PORTABLE/BEDSIDE [facility] POCT-GLUCOSE METER 2019-05-25 16:25:00 Nikki Zuniga [facility] POCT-GLUCOSE METER 2019-05-25 12:53:00 Nikki Zuniga [facility] POCT-GLUCOSE METER 2019-05-25 07:55:00 Nikki Zuniga [facility] HEMOGLOBIN AND 2019-05-25 04:53:00 Nikki Zuniga [facility] POCT-GLUCOSE METER 2019-05-24 21:56:00 Nikki Zuniga [facility] TRANSFUSION SERVICE 2019-05-24 17:52:04 Reji Jackson [facility] REPORT - SCAN Scanning [facility] POCT-GLUCOSE METER 2019-05-24 12:28:00 Nikki Zuniga [facility] POCT-GLUCOSE METER 2019-05-24 08:19:00 Nikki Zungia [facility] BASIC METABOLIC PANEL 2019-05-24 04:59:00 Nikki Zuniga [facility] () [facility] CBC (HEMOGRAM ONLY) 2019-05-24 04:59:00 Nikki Zuniga [facility] PREPARE LEUKO-REDUCED 2019-05-23 23:54:00 Flex Vásquez [facility] RBC [facility] POCT-GLUCOSE METER 2019-05-23 18:26:00 Nikki Zuniga [facility] TRANSFUSION SERVICE 2019-05-23 17:54:38 [facility] CBC (HEMOGRAM ONLY) 2019-05-23 05:30:00 Flex Vásquez [facility] BASIC METABOLIC PANEL 2019-05-23 05:30:00 Nikki Zuniga [facility] () [facility] POCT-GLUCOSE METER 2019-05-23 00:16:00 Nikki Zuniga [facility] TRANSFUSE LEUKO-REDUCED 2019-05-22 16:22:50 Flex Vásquez [facility] RED BLOOD CELLS [facility] POCT-GLUCOSE METER 2019-05-22 05:59:00 [facility] W/PLT COUNT & AUTO 2019-05-22 05:38:00 [facility] DI[facility]ENTIAL [facility] PERIPHERAL VASCULAR 2019-05-21 21:10:52 Provider, Default [facility] REPORT [facility] POCT-GLUCOSE METER 2019-05-21 18:43:00 [facility] TRANSFUSION SERVICE 2019-05-21 17:51:48 Provider, [facility] CBC (HEMOGRAM ONLY) 2019-05-21 13:28:00 Flex Vásquez CH, I [facility] MAGNESIUM 2019-05-21 13:28:00 Flex Vásquez [facility] POTASSIUM 2019-05-21 13:28:00 Flex Vásquez [facility] POCT-GLUCOSE METER 2019-05-21 12:58:[address] [facility] POCT-GLUCOSE METER 2019-05-21 06:25:[address] [facility] CBC (HEMOGRAM ONLY) 2019-05-21 05:59:00 Flex Vásquez [facility] BASIC METABOLIC PANEL 2019-05-21 05:59:00 Carmelita Jasongerard Radhadang [facility] (7) [facility] URIC ACID 2019-05-21 05:59:00 Thad Patricia, [facility] CBC (HEMOGRAM ONLY) 2019-05-21 00:39:00 Flex Vásquez [facility] POCT-GLUCOSE METER 2019-05-21 00:30:[address] [facility] PREPARE LEUKO-REDUCED 2019-05-20 23:54:00 Bao-Anmol Pedr skip [facility] VENOUS DOPPLER LEGS 2019-05-20 19:30:00 Kenji Carney [facility] TRANSFUSION SERVICE 2019-05-20 17:53:02 Provider, Reji [facility] - REPORT - SCAN Scanning [facility] Center FERRITIN 2019-05-20 17:50:00 Kenji Carney [facility] TRANSFERRIN 2019-05-20 17:50:00 Kenji Carney [facility] IRON, TIBC, % SAT. 2019-05-20 17:50:[address] [facility] - (WITHOUT FERRITIN) Medical Cente r CBC (HEMOGRAM ONLY) 2019-05-20 17:49:00 Flex Vásquez [facility] XR ANKLE 1 VIEW LEFT 2019-05-20 10:10:00 Kenji Carney [facility] REPORT OF PROCEDURE - 2019-05-20 08:39:57 Estiven Sánchez [facility] - ENDOSCOPY [facility] UPPER ENDOSCOPY 2019-05-20 07:56:00 Estiven Sánchez [facility] BASIC METABOLIC PANEL 2019-05-20 04:06:00 Vivien Sharpe [facility] Medical Ce nter MAGNESIUM 2019-05-20 04:06:00 Venkatasbrett Sharpe, [facility] St Marc es - [facility] Medical Ce nter PHOSPHORUS 2019-05-20 04:06:00 Venkatasubascencion Sharpe, [facility] St Marc [facility] Medical Ce nter CBC (HEMOGRAM ONLY) 2019-05-20 04:06:00 Flex Vásquez [facility] CBC (HEMOGRAM ONLY) 2019-05-20 00:07:00 Flex Vásquez [facility] POCT-GLUCOSE METER 2019-05-19 18:25:[address] [facility] CBC (HEMOGRAM ONLY) 2019-05-19 18:21:00 Flex Vásquez [facility] TRANSFUSE LEUKO-REDUCED 2019-05-19 16:35:17 Kenji Carney [facility] RED BLOOD CELLS [facility] TYPE AND SCREEN, 2019-05-19 13:24:00 Mono Juarez [facility] POCT-GLUCOSE METER 2019-05-19 12:18:[address] [facility] CBC (HEMOGRAM ONLY) 2019-05-19 12:14:00 Flex Vásquez CH, I [facility] PT/APTT 2019-05-19 07:25:00 Flex Vásquez [facility] FIBRINOGEN 2019-05-19 07:25:00 Flex Vásquez [facility] BASIC METABOLIC PANEL 2019-05-19 06:52:00 Venpatel Sharpe [facility] - (7) [facility] Medical Ce nter MAGNESIUM 2019-05-19 06:52:00 Venkatasubba Sharpe, [facility] Medical Ce nter PHOSPHORUS 2019-05-19 06:52:00 Jose Manuelshreyaascencion Sharpe, [facility] Ce nter CBC (HEMOGRAM ONLY) 2019-05-19 05:54:00 Kenji Carney [facility] POCT-GLUCOSE METER 2019-05-19 00:09:[address] [facility] POCT-GLUCOSE METER 2019-05-18 18:09:[address] [facility] POCT-GLUCOSE METER 2019-05-18 12:11:00 Vivien Sharpe [facility] Ce nter CBC (HEMOGRAM ONLY) 2019-05-18 03:43:00 Chanda Coronel [facility] BASIC METABOLIC PANEL 2019-05-18 03:42:00 Ziggyferbrett Sharpe [facility] (7) [facility] Ce nter MAGNESIUM 2019-05-18 03:42:00 Ziggyferbrett Sharpe, [facility] Ce nter PHOSPHORUS 2019-05-18 03:42:00 Alfredformerly vidant [facility] hospitalferbrett Sharpe, [facility] Ce nter POCT-GLUCOSE METER 2019-05-17 18:32:00 Ziggyferbrett Sharpe [facility] Ce nter [place] CAROTID ARTERY STENT 2019-05-17 15:25:00 Livia Mora [facility] W PROTECTION Medical C enter PROCEDURE DONE OUTSIDE 2019-05-17 13:00:00 Surgeon Harlan [facility] POCT-GLUCOSE METER 2019-05-17 12:28:00 Vivien Sharpe [facility] Ce nter APTT 2019-05-17 08:55:00 Chanda Coronel [facility] PROTHROMBIN TIME/INR 2019-05-17 08:55:00 Livia Mora CH I [facility] POCT-GLUCOSE METER 2019-05-17 06:37:00 Vivien Sharpe [facility] Ce nter BASIC METABOLIC PANEL 2019-05-17 04:12:00 Nkiki Zuniga [facility] (7) [facility] POCT-P2Y12 PLATELET 2019-05-17 04:12:00 Livia Mora [facility] AGGREGATION [facility] POCT-ASPIRIN PLATELET 2019-05-17 04:12:00 Livia Mora [facility] APTT 2019-05-17 04:12:00 Berna [facility] CBC (HEMOGRAM ONLY) 2019-05-17 04:12:00 [facility]a [facility] APTT 2019-05-17 01:19:00 Berna [facility] POCT-GLUCOSE METER 2019-05-16 23:49:00 Vivien Sharpe [facility] Ce nter POCT-GLUCOSE METER 2019-05-16 18:36:00 Alfredformerly [facility] hospitaltom Sharpe [facility] nter TRANSFUSION SERVICE 2019-05-16 18:22:25 Provider, Reji [facility] REPORT - SCAN Scanning [facility] [place] CEREBRAL 4 VESSEL 2019-05-16 16:14:00 Livia Mora CH I [facility] ANGIOGRAM [facility] POCT-GLUCOSE METER 2019-05-16 13:29:00 Nikki Zuniga [facility] CAROTID DOPPLER 2019-05-16 12:00:[address] [facility] BILATERAL [facility] PROCEDURE DONE OUTSIDE 2019-05-16 12:00:00 Surgeon Harlan [facility] OR [facility] CBC (HEMOGRAM ONLY) 2019-05-16 09:03:00 Berna [facility] APTT 2019-05-16 09:03:00 Kenji Carney [facility] BASIC METABOLIC PANEL 2019-05-16 02:36:00 Nikki Zuniga [address] PT/APTT 2019-05-16 02:36:00 Livia Moraecca [facility] PLATELET COUNT 2019-05-16 02:36:00 Ramzan, Chanda [facility] APTT 2019-05-16 02:36:00 Ramzarafael, [facility] CTA BRAIN 2019-05-15 23:45:00 Manish Graf [facility] CT/CTA CAROTID 2019-05-15 23:45:00 [facility] CT CEREBRAL PERFUSION 2019-05-15 23:45:00 Berna, [facility] CT BRAIN/STROKE TEST 2019-05-15 23:21:00 Manish Graf [facility] POCT-GLUCOSE METER 2019-05-15 20:45:00 Nikki Zuniga [facility] PROTHROMBIN TIME/INR 2019-05-15 18:48:00 [facility] TYPE AND SCREEN, 2019-05-15 18:47:00 [facility] POCT-GLUCOSE METER 2019-05-15 17:39:00 Nikki Zuniga [facility] POCT-GLUCOSE METER 2019-05-15 11:43:00 Nikki Zuniga [facility] POCT-GLUCOSE METER 2019-05-15 08:38:00 Nikki Zuniga [facility] POCT-GLUCOSE METER 2019-05-15 06:46:00 Nikki Zuniga [facility] BASIC METABOLIC PANEL 2019-05-15 06:09:00 Nikki Zuniga [place] [id number]) [facility] LIPID PANEL 2019-05-15 06:09:00 Nikki Zuniga [facility] VITAMIN B12 AND FOLATE 2019-05-15 06:09:00 [facility] CBC (HEMOGRAM ONLY) 2019-05-15 06:08:[address] [facility] [address] [facility] HEMOGLOBIN A1C 2019-05-15 06:08:00 [facility] MR BRAIN WITHOUT IV 2019-05-15 02:26:00 Chanda Coronel [facility] POCT-GLUCOSE METER 2019-05-14 21:07:00 [facility] BASIC METABOLIC PANEL 2019-03-31 14:07:00 Magnus García [address] ECG 12-LEAD 2019-03-31 13:49:47 Unknown, Hl7 Doctor [facility] BASIC METABOLIC PANEL 2019-03-31 12:28:00 Livia Mora [address] PT/APTT 2019-03-31 12:28:00 Livia Mora [facility] CBC W/PLT COUNT & AUTO 2019-03-31 12:28:00 Livia Mora [facility] Plan of Care Planned Activity Planned Date Details Comments Source Future Scheduled 2019-12-12 INFLUENZA VACCINE [facility] - Test 00:00:00 (#1) [code = [facility] Center INFLUENZA VACCINE (#1)] Future Scheduled 2019-04-13 MEDICARE ANNUAL [facility] - Test 00:00:00 WELLNESS (YEAR 2 or Medical Center FIRST YEAR if no IPPE) [code = MEDICARE ANNUAL WELLNESS (YEAR 2 or FIRST YEAR if no IPPE)] Encounters Start End Encounter Admission Attending Care Care Encounter Source Date/Time Date/Time Type Type Clinicians Facility Department ID 2020-01-25 2020-01-25 Transition Jaz Castillo [id number] 00:00:00 00:00:00 of Care Ermias Ly [id number] Nesha [id number] 2020-01-23 2020-01-24 Hospital Unknown, Attending [facility] [id number] 10:26:00 11:59:00 Encounter Khai Carrasco no [facility] [id number] Clear [id number] [place] [id number] [facility] 111 ([facility]) 2020-01-24 2020-01-24 Telephone Khai Carrasco [facility] [id number] 00:00:00 00:00:00 [facility] [facility] 350.1.13.10 [place] 4.2.7.2.686 [place] [id number] Medical 196 Office Building 2020-01-22 2020-01-22 Regional Project Manager Alicia [facility] 1.2.840.114 [id number] 12:34:09 12:49:09 Visit Lab Main [place] 350.1.13.10 [place] 4.2.7.2.686 [facility] [id number] [address] 2020-01-22 2020-01-22 Orders Doctor SHILPA 1.2.840.114 [id number] 00:00:00 00:00:00 Only Unassigned, KAILYN 350.1.13.10 [facility] 4.2.7.2.686 [id number] 009 2020-01-17 2020-01-17 Regional Project Manager [facility]-Lab [facility] 1.2.840.114 [id number] 08:19:12 08:49:12 Visit HEALTH 350.1.13.10 CLINICS 4.2.7.2.686 [id number] [facility] 2020-01-15 2020-01-15 Regional Project Manager Vls-Lab [facility] 1.2.840.114 [id number] 12:07:39 12:22:39 Visit SPECIALTY 350.1.13.10 CARE 4.2.7.2.686 CENTER AT [id number] [address] 2020-01-15 2020-01-15 Laboratory Only, [facility] 1.2.840.114 7 [id number] 10:08:01 10:23:01 Only Test [place] 350.1.13.10 [place] 4.2.7.2.686 [place] [id number] 2020-01-15 2020-01-15 Orders Doctor SHILPA 1.2.840.114 [id number] 00:00:00 00:00:00 Only Unassigned, KAILYN 350.1.13.10 [facility] 4.2.7.2.686 [id number] 009 2020-01-08 2020-01-08 Office Elvin, Khai CARDENAS 1.2.840.114 [id number] 10:52:01 16:03:43 Visit [facility] 350.1.13.10 [place] 4.2.7.2.686 [place] [id number] Medical 196 Office Building Results Test Description Test Time Test Comments Results Result [facility] e Comments ECG 12 lead 2019-08-12 Interface, External [facility] 8 Ris In - 09/07/2019 - Med ical 09:27:54 9:27 AM Center CDTVentricular Rate 89 BPMAtrial Rate 89 BPMP-R Interval 126 msQRS Duration 136 msQ-T Interval 424 msQTC Calculation(Bazett) 515 msP [place] 85 degreesR [place] -40 degreesT [place] 64 degreesNormal sinus rhythmLeft axis deviationLeft ventricular hypertrophy with QRS wideningRight bundle branch blockAbnormal ECGWhen compared with ECG of 31-MAR-2019 13:49,Right bundle branch block is no longer PresentConfirmed by MD Lamin, Kadeem ([id number]) on 09/07/2019 9:27:51 AM SARS-CoV2/RT-PCR ([facility]) 2019-09-07 06:43:00 Test Item Value Reference Range Interpretation Comme nts SARS-COV2/RT-PCR (test code = Not Detected Not Detected, Negative 05882-9) SARS-COV-2 PERFORMING LAB [facility] (test code = 23131-1) JACI (test code = JACI) Negative results do [...] of the Act. Fact Sheet for Healthcare Providers:https://www.[employer]/Documents/Xpert%20Xpress %20SARS%20CoV-2/Fact%20Sheets /302-3802%01TLXW-RLS-7%20HEAL THCARE%20PROVIDERS%20FACT%20S HEET.pdf Fact Sheet for Healthcare Patients:https://www.[employer]/Documents/Xpert%20Xpress% 20SARS%20CoV-2/Fact%20Sheets/ 302-3801%30QXRA-DRT-7%20PATIE NT%20FACT%20SHEET.pdf Performing Laboratory:[facility] [place] [id number] [place], [place] [address]ARS-COV2/RT-PCR ([facility])2019-09-07 06:43:00 Test Item Value Reference Range Interpretation Comments SARS-COV2/RT-PCR (test Not Detected Not Detected, Negative code = 4772498) SARS-COV-2 PERFORMING LAB [facility] (test code = 3596316) Negative results do not preclude SARS-CoV-2 infection [...] of the Act.Fact Sheet for Healthcare Pro viders:https://www.[employer]/Documents/Xpert%20Xpress%20SARS%20CoV-2/Fact%20Sh eets/302-3802%70XHPU-WME-5%20HEALTHCARE%20PROVIDERS%20FACT%20SHEET.pdfFact Sheet for Healthcare Patients:https://www.[employer]/Documents/Xpert%20Xpress%20SARS%20CoV-2/Fact%20Sheets/302-3801%20SARS-COV -2%20PATIENT%20FACT%20SHEET.pdfPerforming Laboratory:[address] [id number] PLATELET AGGREGATION 2019-09-06 11:11:00 Test Item Value [...] the VerifyNow P2Y12 package insert are 18-435. [facility] PLATELET [id number] 11:11:00 Test Item Value Reference Range Interpretation Comments POC-P2Y12 PLATELET AGG (BEAKER) (test 79 PRU code = 2303) RANGE INFORMATION: PRU reference range is 194-418. Post Drug Results: Lower PRU levels are associated with expected antiplatelet effect. Values may be below the stated reference range above. The post-drug PRU values reported in the VerifyNow P2Y12 package insert are 18-435.POCT-ASPIRIN PLATELET [id number] 11:08:00 Test Item Value Reference Range Interpretation Comments POC-Aspirin Plt Agg 385 ARU (test code = 2302) JACI (test code = RANGE INFORMATION: 350-549 JACI) ARU Therapeutic range for platelet function. 550-700 ARU Non-Therapeutic range for platelet function. [facility]ASPIR[facility] PLATELET [id number] 11:08:00 Test Item Value Reference Range Interpretation Comments POC-ASPIRIN PLATELET AGG (BEAKER) 385 ARU (test code = 2302) RANGE INFORMATION: 350-549 ARU Therapeutic range for platelet function. 550-700 ARU Non-Therapeutic range for platelet function.Type and screen, [id number] 10:37:00 Test Item Value Reference Range Interpretation Comments ABO/RH AUTOMATED (BEAKER) (test A POSITIVE code = 2260) Ab Scrn (test code = 890-4) NEGATIVE [facility] Metabolic [id number] 10:35:00 Test Item Value Reference Range Interpretation Comments Sodium (test code = 138 meq/L 166-627 5870-2) Potassium (test code = 5.4 meq/L 3.5-5.1 [...] Calcium (test code = 9.9 mg/dL 8.4-10.2 42667-9) EGFR (test code = 23 mL/min/1.73 [place] [address]-9) NOT ACCURATE CREATININE CLEARANCE IN PREDICTING GLOMERULAR FILTRATION RATE . ESTIMATED GFR I S NOT APPLICABLE FOR DIALYSIS PATIENTS. JACI (test code = JACI) Operational Review Sergeant ID - MALOU Raymond Lab Interpretation Abnormal (test code = 18585-9) [facility] METABOLIC [id number] 10:35:00 Test Item Value Reference Range Interpretation [...] S NOT APPLICABLE FOR DIALYSIS PATIEN TS. Operational Review Sergeant ID - [facility] with platelet count + automated [id number] 10:33:00 Test Item Value Reference Range Interpretation [...] 450 K/CU MM MPV (test code = 93521-5) 11.0 fL 9.4-12.3 nRBC (test code = [...] 2801) Lab Interpretation (test code = Abnormal 29253-8) [facility] W/PLT COUNT & AUTO [id number] 10:33:00 Test Item Value Reference Range Interpretation [...] 0-1 PERCENT (BEAKER) (test code = 2801) [id number] 10:12:00 Test Item Value Reference Range Interpretation Comments Protime (test code = 12.8 11.9- 14.2 5902-2) seconds INR (test code = 1.0 <=5.9 6301-6) PTT (test code = 25.6 22.5- 36.0 04251-0) seconds JACI (test code = JACI) Effective 09/07/2018: PT Reference Range ChangeNew: 11.9-14.2 Previous: 11.7-14.7 RECOMMENDED COUMADIN/WARFARIN INR THERAPY RANGESSTANDARD DOSE: 2.0-3.0 Includes: PROPHYLAXIS for venous thrombosis, systemic embolization; TREATMENT for venous thrombosis and/or pulmonary embolus.HIGH RISK: Target INR is 2.5-3.5 for patients wiht mechanical heart valves. Lab Interpretation Normal (test code = 78771-7) [facility] HospitalPT/[id number] 10:12:00 Test Item Value Reference Range Interpretation [...] is2.5-3.5 for patients wiht mechanical heart valves.POC-Glucose [id number] 12:47:00 Test Item Value Reference Range Interpretation Comments POC-Glucose Meter (test 133 mg/dL 70-110 H : TE STED AT [facility] code = 1538) 20 [facility], [address]: Operational Review Sergeant/Techni gretel ID = [id number] for TSEGGAI, CHARLOTTEE REDA Lab Interpretation (test Abnormal code = 31794-3) [facility] [id number] 12:47:00 Test Item Value Reference Range Interpretation Comments POC-GLUCOSE METER 133 mg/dL 70-110 H : TESTED A T [facility] 6720 (BEAKER) (test code [facility], = 1538) [address]: Operational Review Sergeant/Techni gretel ID = [id number] for TSEG GAI, TSIGHEREDA POCT-GLUCOSE [id number] 07:59:00 Test Item Value Reference Range Interpretation Comments POC-GLUCOSE METER 125 mg/dL 70-110 H : TESTED A T [facility] 6720 (BEAKER) (test code [facility], = 1538) 560[address]: Operational Review Sergeant/Techni gretel ID = [id number] for TSEG GAI, TSIGHEREDA POCT-GLUCOSE [id number] 21:06:00 Test Item Value Reference Range Interpretation Comments POC-GLUCOSE METER 192 mg/dL 70-110 H : TESTED A T [facility] 6720 (BEAKER) (test code = [facility], 1538) [address]: Operational Review Sergeant/Techni gretel ID = [id number] for DE NNIS, MALIHA POCT-GLUCOSE [id number] 17:33:00 Test Item Value Reference Range Interpretation Comments POC-GLUCOSE METER 124 mg/dL 70-110 H : TESTED A T [facility] 6720 (BEAKER) (test code [facility], = 1538) 72795: Operational Review Sergeant/Techni gretel ID = [id number] for TSEG GAI, TSIGHEREDA POCT-GLUCOSE [id number] 11:50:00 Test Item Value Reference Range Interpretation Comments POC-GLUCOSE METER 102 mg/dL 70-110 : [facility] (test code [facility], = 1538) 729[address]: Operational Review Sergeant/Techni gretel ID = [id number] for TSEG GAI, TSIGHEREDA POCT-GLUCOSE [id number] 07:44:00 Test Item Value Reference Range Interpretation Comments POC-GLUCOSE METER 96 mg/dL 70-110 : [facility] ([facility]ER[facility] (test code [facility], = 1538) 08454: Operational Review Sergeant/Techni gretel ID = [id number] for TSEG GAI, TSIGHEREDA POCT-GLUCOSE [id number] 22:28:00 Test Item Value Reference Range Interpretation Comments POC-GLUCOSE METER 201 mg/dL 70-110 H : Notified RN/: (GIFTY) (test code = TESTED AT [place] [address] 1538) [facility], [address]: Operational Review Sergeant/Techni gretel ID = [id number] for LATHBRIDGE, AMRITA ICE Hemoglobin and [id number] 11:01:00 Test Item Value Reference Range Interpretation Comments Hemoglobin (test code = 9.3 11.2- 15.7 GM/DL L 786-4) Hematocrit (test code = 28.8 % 34.1-44.9 L 4544-3) JACI (test code = JACI) Operational Review Sergeant ID - [id number] Lab Interpretation (test Abnormal code = 17257-1) [facility] HospitalHEMOGLOBIN AND [id number] 11:01:00 Test Item Value Reference Range Interpretation Comments HEMOGLOBIN (BEAKER) (test code = 9.3 GM/DL 11.2-15.7 L 410) HEMATOCRIT (BEAKER) (test code = 28.8 % 34.1-44.9 L 411) Operational Review Sergeant ID - [id number]-GLUCOSE [id number] 23:42:00 Test Item Value Reference Range Interpretation Comments POC-GLUCOSE METER 158 mg/dL 70-110 H : Notified RN/: (GIFTY) (test code = TESTED AT [place] 0283020 1538) [facility], [address]: Operational Review Sergeant/Techni gretel ID = [id number] for LATAMRITA WHITING ICE POCT-GLUCOSE [id number] 12:06:00 Test Item Value Reference Range Interpretation Comments POC-GLUCOSE METER 157 mg/dL 70-110 H : TESTED A T [facility] 6720 (BEAKER) (test code [facility], = 1538) 100[address]: Operational Review Sergeant/Techni gretel ID = [id number] for CHARLOTTE BRYANEREDEva [id number] 06:57:00 Test Item Value Reference Range Interpretation Comments Magnesium (test code = 1.7 mg/dL 1.6-2.6 84775-7) JACI (test code = JACI) Operational Review Sergeant ID - KEARA W Lab Interpretation (test Normal code = 94714-4) [facility]MAGNESIUM2020-02-14 06:57:00 Test Item Value Reference Range Interpretation Comments MAGNESIUM (BEAKER) (test code = 1.7 mg/dL 1.6-2.6 627) Operational Review Sergeant ID - KEARA WBASIC METABOLIC [id number] 06:57:00 Test Item Value Reference Range Interpretation [...] S NOT APPLICABLE FOR DIALYSIS PATIEN TS. Operational Review Sergeant ID - KEARA WHEMOGLOBIN AND [id number] 05:42:00 Test Item Value Reference Range Interpretation Comments HEMOGLOBIN (BEAKER) (test code = 8.3 GM/DL 11.2-15.7 L 410) HEMATOCRIT (BEAKER) (test code = 26.4 % 34.1-44.9 L 411) Operational Review Sergeant ID - [id number]-GLUCOSE [id number] 22:26:00 Test Item Value Reference Range Interpretation Comments POC-GLUCOSE METER 137 mg/dL 70-110 H : TESTED A T [facility] 6720 (GIFTY) (test code = [place], 1538) [address]: Operational Review Sergeant/Techni gretel ID = [id number] for MALLORY GRAHAM RAD, CHEST, 1 VIEW, NON [id number] 21:41:00Reason for exam:->shortness of breath, coughShould this [...] 21:41:23 XR chest 1 view portable / [id number] 21:41:00 Interface, External Ris In - 05/25/2019 9:43 PM CSTFINAL REPORT RAD, CHEST, 1 VIEW, NON DEPT INDICATION: shortness of breath, cough COMPARISON: None available FINDINGS: Portablefrontal view of the chest. IMPRESSION: Lungs and pleura: Lungs are clear. No pleural effusion. No pneumothorax.Heart and mediastinum: Within normal limits. Atherosclerotic calcifications of the thoracic aorta.Additional findings: Osseous structures are unremarkable. Signed: Annelise Davisort Verified Date/Time: 05/25/2019 21:41:23 Electronically signed by: ANNELISE DAVIS MDon 05/25/2019 09:41 [facility] [id number] 16:37:00 Test Item Value Reference Range Interpretation Comments POC-GLUCOSE METER 217 mg/dL 70-110 H : TESTED A T [facility] 6720 (BEAKER) (test code = [facility], 1538) [address]: Operational Review Sergeant/Techni gretel ID = [id number] for RO DGERS, JAMECA POCT-GLUCOSE [id number] 13:05:00 Test Item Value Reference Range Interpretation Comments POC-GLUCOSE METER 196 mg/dL 70-110 H : TESTED A T [facility] 6720 (BEAKER) (test code = [facility], 1538) 95498: Operational Review Sergeant/Techni gretel ID = [id number] for RO DGERS, JAMECA POCT-GLUCOSE [id number] 08:49:00 Test Item Value Reference Range Interpretation Comments POC-GLUCOSE METER 95 mg/dL 70-110 : TESTED A T [facility] 6720 (BEAKER) (test code = [facility], 1538) 65[address]: Operational Review Sergeant/Techni gretel ID = [id number] for RODG ERS, JAMECA HEMOGLOBIN AND [id number] 05:24:00 Test Item Value Reference Range Interpretation Comments HEMOGLOBIN (BEAKER) (test code = 8.4 GM/DL 11.2-15.7 L 410) HEMATOCRIT (BEAKER) (test code = 27.0 % 34.1-44.9 L 411) Operational Review Sergeant ID - [id number]-GLUCOSE [id number] 22:08:00 Test Item Value Reference Range Interpretation Comments POC-GLUCOSE METER 164 mg/dL 70-110 H : TESTED A T [facility] 6720 (BEAKER) (test code = [facility], 1538) 49982: Operational Review Sergeant/Techni gretel ID = [id number] for NELI GRAHAMA POCT-GLUCOSE [id number] 12:57:00 Test Item Value Reference Range Interpretation Comments POC-GLUCOSE METER 156 mg/dL 70-110 H : TESTED A T [facility] 6720 (BEAKER) (test code = [facility], 1538) 75395: Operational Review Sergeant/Techni gretel ID = [id number] for RO DGERS, JAMECA POCT-GLUCOSE [id number] 08:38:00 Test Item Value Reference Range Interpretation Comments POC-GLUCOSE METER 102 mg/dL 70-110 : TESTED A T [facility] 6720 (BEAKER) (test code = [place], 1538) [address]: Operational Review Sergeant/Techni gretel ID = [id number] for NITA GRANGER BASIC METABOLIC [id number] 06:30:00 Test Item Value Reference Range Interpretation [...] S NOT APPLICABLE FOR DIALYSIS PATIEN TS. Operational Review Sergeant ID - GALAPCBC (Hemogram only)2019-05-24 05:51:00 Test [...] 450 K/CU MM MPV (test code = 61246-2) 11.1 fL 9.4-12.3 nRBC (test code = 413) 0 0- 0 /100 WBC Lab Interpretation (test code = Abnormal 86434-2) [facility] (HEMOGRAM ONLY)2019-05-24 05:51:00 Test Item Value Reference [...] (BEAKER) (test code = 413) Prepare Leuko-Red [id number] 23:54:00 Test Item Value Reference Range Interpretation Comments CROSSMATCH (test code = 2264) COMPATIBLE Unit ABO (test code = A Pos 7075819) UNIT NUMBER (test code = [id number] 934-0) Status (test code = 9814969) TX_TIMEINCHART Blood Bank Product (test code RED BLOOD CELLS = 2263) PRODUCT CODE (test code = A9468X54 933-2) [facility] [id number] 18:38:00 Test Item Value Reference Range Interpretation Comments POC-GLUCOSE METER 243 mg/dL 70-110 H : Notified RN/MD: (GIFTY) (test code = TESTED AT [facility] 3890 9679) [place], [address]: Operational Review Sergeant/Techni gretel ID = [id number] for Keiry Owens BASIC METABOLIC [id number] 06:25:00 Test Item Value Reference Range Interpretation [...] S NOT APPLICABLE FOR DIALYSIS PATIEN TS. Operational Review Sergeant ID - GALAPCBC (HEMOGRAM ONLY)2019-05-23 05:56:00 Test [...] 0-0 (BEAKER) (test code = 413) POCT-GLUCOSE [id number] 00:29:00 Test Item Value Reference Range Interpretation Comments POC-GLUCOSE METER 126 mg/dL 70-110 H : TESTED A T [facility] 6720 (BEAKER) (test code = [place], 1538) [address]: Operational Review Sergeant/Techni gretel ID = [id number] for MASON PHELPS CBC W/PLT COUNT & AUTO [id number] 06:36:00 Test Item Value Reference Range Interpretation [...] PERCENT (BEAKER) (test code = 2801) POCT-GLUCOSE [id number] 06:11:00 Test Item Value Reference Range Interpretation Comments POC-GLUCOSE METER 111 mg/dL 70-110 H : TESTED A T [facility] 6720 ([facility] (test code = HUM[facility]ERTO Gurdeep [facility], 1538) [address]: Operational Review Sergeant/Techni gretel ID = [id number] for RAFAEL CARBAJAL POCT-GLUCOSE [id number] 18:56:00 Test Item Value Reference Range Interpretation Comments POC-GLUCOSE METER 137 mg/dL 70-110 H : Notified RN/MD: (GIFTY) (test code = TESTED AT [facility] 6720 1538) [facility], [address]: Operational Review Sergeant/Techni gretel ID = [id number] for SH DANDY WINSTON [id number] 13:58:00 Test Item Value Reference Range Interpretation Comments Potassium (test code = 3.9 meq/L 3.5-5.1 2823-3) JACI (test code = JACI) Operational Review Sergeant ID - MALOU Raymond Lab Interpretation (test Normal code = 96828-5) [facility] Hospital[facility]OT[facility]UM2020-02-09 13:58:00 Test Item Value Reference Range Interpretation Comments POTASSIUM (BEAKER) (test code = 3.9 meq/L 3.5-5.1 379) Operational Review Sergeant ID - MALOU [id number] 13:58:00 Test Item Value Reference Range Interpretation Comments MAGNESIUM (BEAKER) (test code = 1.8 mg/dL 1.6-2.6 627) Operational Review Sergeant ID - MALOU FCBC (HEMOGRAM ONLY)2019-05-21 13:41:00 [...] 0-0 (BEAKER) (test code = 413) POCT-GLUCOSE [id number] 13:11:00 Test Item Value Reference Range Interpretation Comments POC-GLUCOSE METER 164 mg/dL 70-110 H : Notified RN/MD: (BEAKER) (test code = TESTED AT [facility] 6720 4460) [facility], [address]: Operational Review Sergeant/Techni gretel ID = [id number] for DANDY WINSTON Uric [id number] 10:43:00 Test Item Value Reference Range Interpretation Comments Uric Acid (test code = 5.7 mg/dL 2.6-7.2 3084-1) JACI (test code = JACI) Operational Review Sergeant ID - MALOU F Lab Interpretation (test Normal code = 73984-2) [facility] HospitalURIC [id number] 10:43:00 Test Item Value Reference Range Interpretation Comments URIC ACID (BEAKER) (test code = 5.7 mg/dL 2.6-7.2 773) Operational Review Sergeant ID - MALOU FVenous doppler legs [id number] 08:28:09Ejection FractionSLE ECHO HEARTLAB MKCKESSON CPACSRight Impression1. 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 Operational Review Sergeant ID - KEARA WPOCT-GLUCOSE [id number] 06:37:00 Test Item Value Reference Range Interpretation Comments POC-GLUCOSE METER 156 mg/dL 70-110 H : TESTED A T [facility] 6720 (BEAKER) (test code = [place], 1538) [address]: Operational Review Sergeant/Techni gretel ID = [id number] for VA RELA, RAJ CBC (HEMOGRAM ONLY)2019-05-21 [...] 0-0 (BEAKER) (test code = 413) POCT-GLUCOSE [id number] 00:42:00 Test Item Value Reference Range Interpretation Comments POC-GLUCOSE METER 155 mg/dL 70-110 H : TESTED A T [facility] 6720 (BEAKER) (test code = HUMBERTO Mackenzie [facility], 1538) [address]: Operational Review Sergeant/Techni gretel ID = [id number] for AL RAJ ESPINOZA [id number] 19:49:00 Test Item Value Reference Range Interpretation Comments Ferritin (test code = 29 ng/mL 5-275 2276-4) JACI (test code = JACI) Operational Review Sergeant DEDE Chao Lab Interpretation (test Normal code = 65319-0) [facility] HospitalFERRITIN2020-02-08 19:49:00 Test Item Value Reference Range Interpretation Comments FERRITIN (BEAKER) (test code = 361) 29 ng/mL 5-275 Operational Review Sergeant DEDE MURRAY GArkfzbnmdhu1736-57-69 18:51:00 Test Item Value Reference Range Interpretation Comments Transferrin (test code = 211 mg/dL 025-410 1196-6) JACI (test code = JACI) Operational Review Sergeant ID - TERRI Chao Lab Interpretation (test Normal code = 76425-6) [facility] HospitalIron, TIBC, % sat. (without ferritin)2019-05-20 18:51:00 Test Item Value Reference Range Interpretation Comments Iron (test code = 2498-4) 14.0 ug/dL 40-160 L TIBC (test code = 2500-7) 264 ug/dL 250-450 Iron % Saturation (test 5 % 20-55 L code = 2502-3) JACI (test code = JACI) Operational Review Sergeant ID - TERRI Chao Lab Interpretation (test Abnormal code = 95057-4) [facility] HospitalTRANSFERRIN2020-02-08 18:51:00 Test Item Value Reference Range Interpretation Comments TRANSFERRIN (BEAKER) (test code = 211 mg/dL 174-382 541) Operational Review Sergeant ID - TERRI LAYCON, TIBC, % SAT. (WITHOUT FERRITIN)2019-05-20 18:51:00 Test Item Value Reference Range Interpretation Comments IRON (BEAKER) (test code = 547) 14.0 ug/dL 40.0-160.0 L TOTAL IRON BINDING CAPACITY 264 ug/dL 250-450 (BEAKER) (test code = 769) IRON % SATURATION (2) (BEAKER) 5 % 20-55 L (test code = 2590) Operational Review Sergeant ID - TERRI MRAD, ANKLE, 1 VIEW, [id number] 18:09:00Reason for exam:- >left ankle painShould this be performed at the bedside?->YesFINAL REPORT TECHNIQUE: Two views of left ankle HISTORY: left ankle pain. COMPARISON: None. IMPRESSION:No acute displaced fracture or dislocation. Joint spaces are within normal limits.Minimal Achilles enthesopathy. Large plantar calcaneal spur and enthesopathy. Signed: Steven Lyman Verified Date/Time: 05/20/2019 18:09:20 Reading Location: [address] Reading Room XR ankle 1 view [id number] 18:09:00Interface, External Ris In - 05/20/2019 6:11 PM CSTFINAL REPORT TECHNIQUE: Two views of left ankle HISTORY: left ankle pain. COMPARISON: None. IMPRESSION:No acute displaced fracture or dislocation. Joint spaces are within normal limits.Minimal Achilles enthesopathy. Large plantar calcaneal spur and enthesopathy. Signed: Steven Lyman MDRepdarryl Verified Date/Time: 05/20/2019 18:09:20 Reading Location: [facility] C013W Consult Reading Room [facility] (HEMOGRAM ONLY) 2019-05-20 17:58:00 Test Item Value Reference Range Interpretation [...] WBC 0-0 (BEAKER) (test code = 413) [id number] 05:29:00 Test Item Value Reference Range Interpretation Comments Phosphorus (test code 3.3 mg/dL 2.3-4.7 Specim en = 2777-1) slightly hemolyzed JACI (test code = JACI) Operational Review Sergeant ID - TERRI M Lab Interpretation Normal (test code = 15693-8) [facility]UM2020-02-08 05:29:00 Test Item Value Reference Range Interpretation Comments MAGNESIUM (BEAKER) 1.9 mg/dL 1.6-2.6 Specimen slightly (test code = 627) hemolyzed Operational Review Sergeant ID - TERRI [id number] 05:29:00 Test Item Value Reference Range Interpretation Comments PHOSPHORUS (BEAKER) 3.3 mg/dL 2.3-4.7 Specimen slightly (test code = 604) hemolyzed Operational Review Sergeant ID - TERRI MBASIC METABOLIC [id number] 05:29:00 Test Item Value Reference Range Interpretation [...] S NOT APPLICABLE FOR DIALYSIS PATIEN TS. Operational Review Sergeant ID - TERRI MCBC (HEMOGRAM ONLY)2019-05-20 04:51:00 [...] 0-0 (BEAKER) (test code = 413) POCT-GLUCOSE [id number] 18:36:00 Test Item Value Reference Range Interpretation Comments POC-GLUCOSE METER 101 mg/dL 70-110 : [facility] (test code = [place], 1538) [address]: Operational Review Sergeant/Techni gretel ID = [id number] for DANDY ESTRADA CBC (HEMOGRAM ONLY)2019-05-19 18:33:00 [...] 0-0 (BEAKER) (test code = 413) POCT-GLUCOSE [id number] 12:30:00 Test Item Value Reference Range Interpretation Comments POC-GLUCOSE METER 130 mg/dL 70-110 H : TESTED A T [facility] 6720 (BEAKER) (test code = HUM[place]ERTO [place], 1538) [address]: Operational Review Sergeant/Techni gretel ID = [id number] for DANDY ESTRADA [id number] 08:02:00 Test Item Value Reference Range Interpretation Comments PHOSPHORUS (BEAKER) (test code = 2.5 mg/dL 2.3-4.7 604) Operational Review Sergeant ID - TERRI [id number] 08:02:00 Test Item Value Reference Range Interpretation Comments MAGNESIUM (BEAKER) (test code = 1.6 mg/dL 1.6-2.6 627) Operational Review Sergeant ID - TERRI MBASIC METABOLIC [id number] 08:02:00 Test Item Value Reference Range Interpretation [...] S NOT APPLICABLE FOR DIALYSIS PATIEN TS. Operational Review Sergeant ID - TERRI [id number] 07:40:00 Test Item Value Reference Range Interpretation Comments Fibrinogen (test code = 3255-7) 489 mg/dl 225-434 H Lab Interpretation (test code = Abnormal 76239-8) [facility] 07[facility]00 Test Item Value Reference Range Interpretation Comments FIBRINOGEN LEVEL (BEAKER) (test 489 mg/dl 225-434 H code = 658) PT/[id number] 07:40:00 Test Item Value Reference Range Interpretation [...] 0-0 (BEAKER) (test code = 413) POCT-GLUCOSE [id number] 00:26:00 Test Item Value Reference Range Interpretation Comments POC-GLUCOSE METER 110 mg/dL 70-110 : Notified RN/MD: ([facility]) (test code = TESTED AT [place] [address]) [facility], [address]: Operational Review Sergeant/Techni gretel ID = [id number] for CHRIS PEREZ POCT-GLUCOSE [id number] 18:22:00 Test Item Value Reference Range Interpretation Comments POC-GLUCOSE METER 127 mg/dL 70-110 H : TESTED A T [facility] 6720 ([facility]) (test code = [facility], 153) [address]: Operational Review Sergeant/Techni gretel ID = [id number] for RADHA DE LOS SANTOS POCT-GLUCOSE [id number] 12:25:00 Test Item Value Reference Range Interpretation Comments POC-GLUCOSE METER 171 mg/dL 70-110 H : TESTED A T [facility] 6720 ([facility]) (test code = [facility], 153) [address]: Operational Review Sergeant/Techni gretel ID = [id number] for RADHA DE LOS SANTOS [id number] 04:17:00 Test Item Value Reference Range Interpretation Comments PHOSPHORUS (BEAKER) (test code = 2.0 mg/dL 2.3-4.7 L 604) Operational Review Sergeant ID Ross SARAH [id number] 04:17:00 Test Item Value Reference Range Interpretation Comments MAGNESIUM (BEAKER) (test code = 1.6 mg/dL 1.6-2.6 627) Operational Review Sergeant ID - KEARA WBASIC METABOLIC [id number] 04:17:00 Test Item Value Reference Range Interpretation [...] S NOT APPLICABLE FOR DIALYSIS PATIEN TS. Operational Review Sergeant ID Ross SARAH WCBC (HEMOGRAM ONLY)2019-05-18 03:55:00 [...] 0-0 (BEAKER) (test code = 413) POCT-GLUCOSE [id number] 18:43:00 Test Item Value Reference Range Interpretation Comments POC-GLUCOSE METER 139 mg/dL 70-110 H : [facility] ([facility]) (test code = HUMBERTO Mackenzie [facility], 1538) [address]: Operational Review Sergeant/Techni gretel ID = [id number] for RADHA DE LOS SANTOS [place] Carotid Artery Stent Placement w/[id number] 15:10:00Interface, External Ris In - 05/17/2019 3:32 [...] guidance and strict sterile technique a 6 Cook Islander shuttle sheath was inserted through the right [...] internal carotid artery with severe stenosis of ztrdaoahejeet79%. There is poor delayed antegrade flow distal [...] of approximately 70%. A distal protective device ([employer]) was gently navigated through the stenotic segment and positioned in the distal cervical segment of the left internal carotid artery. A self expanded nitinol stent ( XACT) which measures 8-6 x 40 mm was was introduced over the wir e of the protective device and successfully deployed [...] the stent to the arterial wall with anabaptist of the intraluminal flow and mild residual stenosis of approximately 20%. There is no evidence of platelet aggregation, or dissection. Intracranially there is anabaptist of good ante grade flow with no evidence of acute clot [...] MDReport Verified Date/Time: 05/17/2019 15:10:42 Reading Location: [facility] Y018 Neuro Angio Reading Room Electronicallysigned by: KHAI CARRASCO MD on 05/17/2019 03:10 [facility] CAROT[facility] ST[facility] W [id number] 15:10:00Reason for exam:->left carotid stenosisFINAL REPORT Date [...] guidance and strict sterile technique a 6 Cook Islander shuttle sheath was inserted through the right [...] of approximately 70%. A distal protective device ([employer]) was gently navigated through the stenotic segment and positioned in the distalcervical segment of the left internal carotid artery. A self expanded nitinol stent ( XACT) which measures 8- 6 x 40 mm was was introduced over [...] the stent to the arterial wall with anabaptist of the intraluminal flow and mild residual stenosis of approximately 20%. There is no evidence of platelet aggregation, or dissection. Intracranially there is anabaptist of good antegrade flow with no evidence of acute clot formation. The MCA on the left side fills normally At the end of the procedure hemostasis was achieved utilizing manual compression and the deployment AngioSeal device. The patient tolerated the procedure well wi thout acute complication related to the procedure. Impression: 1. Successful stenting and angioplasty of proximal left internal carotid artery stenosis. 2. The patient should remain on antiplatelet therapy. Signed: Khai Carrasco MDReport Verified Date/Time: 05/17/2019 15:10:42 Reading Location: [facility] [id number] Neuro Angio Reading Room Carotid doppler [id number] 13:06:24Ejection FractionSST. [facility] ECHO HEARTLAB MKCKESSON CPACSRight Impression1. 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 Indications for Study:Carotid stenosis .Patient Status:Routine.Study Location:Portable.Technical Quality:Adequate visualization. - Results were reported to:SARAI DOHERTY@[facility].Risk FactorsHistory of Disease+---------+----+ +!Diagnosis!Date!Comments ! +---------+----+ +!Oth [...] + + - Additional Measurements:ICAPSV/CCAPSV 5.8.ICAEDV/CCAEDV 19.78.[facility] [id number] 12:40:00 Test Item Value Reference Range Interpretation Comments POC-GLUCOSE METER 130 mg/dL 70-110 H : TESTED A Jose [facility] 6720 (GIFTY) (test code = [place]ERT[place], 9415) [address]: Operational Review Sergeant/Techni gretel ID = [id number] for RADHA DE LOS SANTOS Prothrombin time/[id number] 11:08:00 Test Item Value Reference Range Interpretation [...] valves. Lab Interpretation Normal (test code = 43275-5) [facility] HospitalPROTHROMBIN [facility]/[id number] 11:08:00 Test Item Value Reference Range Interpretation [...] INR is2.5-3.5 for patients wiht mechanical heart valves.[id number] 09:19:00 Test Item Value Reference Range Interpretation Comments PTT (test code = 91138-4) 37.6 22.5- 36.0 seconds H Lab Interpretation (test code = Abnormal 11903-7) [facility]APTT2020-[facility]-05 09:19:00 Test Item Value Reference Range Interpretation Comments PARTIAL THROMBOPLASTIN TIME 37.6 seconds 22.5-36.0 H (BEAKER) (test code = 760) POCT-GLUCOSE [id number] 06:49:00 Test Item Value Reference Range Interpretation Comments POC-GLUCOSE METER 110 mg/dL 70-110 : TESTED A T [facility] 6720 (BEAKER) (test code = [place]O [place], 1538) [address]: Operational Review Sergeant/Techni gretel ID = [id number] for MASON PHELPS BASIC METABOLIC [id number] 05:59:00 Test Item Value Reference Range Interpretation [...] S NOT APPLICABLE FOR DIALYSIS PATIEN TS. Operational Review Sergeant ID - TERRI [id number] 05:35:00 Test Item Value Reference Range Interpretation Comments PARTIAL THROMBOPLASTIN TIME 38.3 seconds 22.5-36.0 H (BEAKER) (test code = 760) Prior to initiating heparinPOCT-P2Y12 PLATELET [id number] 05:34:00 Test Item Value Reference Range Interpretation Comments POC-P2Y12 PLATELET AGG (BEAKER) (test 230 PRU code = 2303) RANGE INFORMATION: PRU reference range is 194-418. Post Drug Results: Lower PRU levels are associated with expected antiplatelet effect. Values may be below the stated reference range above. The post-drug PRU values reported in the [employer] P2Y12 package insert are 18-435.POCT-ASPIRIN PLATELET [id number] 05:34:00 Test Item Value Reference Range Interpretation Comments POC-ASPIRIN PLATELET AGG (BEAKER) 564 ARU (test code = 2302) RANGE INFORMATION: 350-549 ARU Therapeutic range for platelet function. 550-700 ARU Non-Therapeutic range for platelet function.[id number] 05:34:00 Test Item Value Reference Range Interpretation [...] WBC 0-0 (BEAKER) (test code = 413) [id number] 02:03:00 Test Item Value Reference Range Interpretation Comments PARTIAL THROMBOPLASTIN TIME 35.8 seconds 22.5-36.0 (BEAKER) (test code = 760) 6 hours after starting heparin infusion and as indicated per sliding scalePOCT- GLUCOSE [id number] 00:00:00 Test Item Value Reference Range Interpretation Comments POC-GLUCOSE METER 109 mg/dL 70-110 : TESTED A T [facility] 6720 (BEAKER) (test code = [place], 1538) [address]: Operational Review Sergeant/Techni gretel ID = [id number] for MASON PHELPS POCT-GLUCOSE [id number] 18:48:00 Test Item Value Reference Range Interpretation Comments POC-GLUCOSE METER 148 mg/dL 70-110 H : Notified RN/MD: (GIFTY) (test code = TESTED AT [facility] 6720 1538) [facility], [address]: Operational Review Sergeant/Techni gretel ID = [id number] for MIKE MEJIASTEWART DEVLIN, ANGIOGRAM, [id number] 16:45:00Reason for exam:->basilar tip aneurysmFINAL REPORT Date [...] guidance and strict sterile technique a 4 Cook Islander femoral sheath was inserted into the right radial artery. Through the sheath a 4 Cook Islander Weaver catheter was then advanced over the [...] MDReport Verified Date/Time: 05/16/2019 16:45:20 Reading Location: [facility] Y018 Neuro Angio Reading Room [place] cerebral 4 vessel [id number] 16:45:00Interface, External Ris In - 05/16/2019 4:47 [...] guidance and strict sterile technique a 4 Cook Islander femoral sheath was inserted into the right [...] Carrasco MDReport Verified Date/Time: 05/16/2019 16:45:20Reading Location: [place] [address] Neuro Angio Reading Room [facility]PO[facility] [id number] 13:41:00 Test Item Value Reference Range Interpretation Comments POC-GLUCOSE METER 120 mg/dL 70-110 H : TESTED A T [facility] 6720 (BEAKER) (test code = [place], 1538) [address]: Operational Review Sergeant/Techni gretel ID = [id number] for ESVIN LAMBERT [id number] 09:24:00 Test Item Value Reference Range Interpretation [...] WBC 0-0 (BEAKER) (test code = 413) PT/[id number] 03:01:00 Test Item Value Reference Range Interpretation [...] heart valves.Prior to initiating heparinPrior to initiating [id number] 03:01:00 Test Item Value Reference Range Interpretation Comments PARTIAL THROMBOPLASTIN TIME 32.2 seconds 22.5-36.0 (BEAKER) (test code = 760) BASIC METABOLIC [id number] 02:58:00 Test Item Value Reference Range Interpretation [...] S NOT APPLICABLE FOR DIALYSIS PATIEN TS. Operational Review Sergeant ID - TERRI MPlatelet [id number] 02:45:00 Test Item Value Reference Range Interpretation Comments Platelets (test code = 231 150- 450 K/CU MM 777-3) JACI (test code = JACI) Operational Review Sergeant ID - [id number] Lab Interpretation (test Normal code = 08244-0) [facility] HospitalPLATELET [id number] 02:45:00 Test Item Value Reference Range Interpretation Comments PLATELET COUNT (BEAKER) (test 231 K/CU MM 150-450 code = 756) Operational Review Sergeant ID - [id number], CEREBRAL PERFUSION [id number] 01:22:00FINAL REPORT CT cerebral perfusion analysis. Comparison: [...] Signed: Fabiano Montoya Verified Date/Time: 05/16/2019 01:22:48 . [facility] brain cerebral perfusion analysis 2019-05-16 01:22:00Interface, External [...] Fabiano Montoya MDReport Verified Date/Time: 05/16/2019 01:22:48 [facility] CTANGIO [id number] 01:09:00FINAL REPORT EXAM: CT, CT Angio, Brain. [...] Signed: Fabiano Montoya Verified Date/Time: 05/16/2019 01:09:25 [facility], CAROTID, [id number] 01:09:00FINAL REPORT EXAM: CT, CT Angio, Brain. [...] Fabiano Montoya MDReport Verified Date/Time: 05/16/2019 01:09:25 [facility] [id number] 01:09:00Interface, External Ris In - 05/16/2019 1:12 AM CSTFINAL REPORT EXAM: CT, CT Angio, Brain. CT [...] approximately 1:05 AM 05/16/2019. Signed: Fabiano Montoya [facility] Verified Date/Time: 05/16/2019 01:09:25 [facility] HospitalCT[facility] [id number] 01:09:00Interface, External Ris In - 05/16/2019 1:12 [...] at approximately 1:05 AM 05/16/2019. Signed: Fabiano Montoyaconnecticut children's medical center Verified Date/Time: 05/16/2019 01:09:25 [facility]RAIN/STROKE [id number] 23:34:00FINAL REPORT EXAM: CT head without contrast. [...] tip aneurysm. Discussed with neurology resident at 1 1:30 PM 05/15/2019. Signed: Fabiano Montoya Verified Date/Time: 05/15/2019 23:34:22 [facility] brain/stroke test [id number] 23:34:00Interface, External Ris In - 05/15/2019 11:36 [...] resident at 11:30 PM 05/15/2019. Signed: Fabiano MontoyaVerified Date/Time: 05/15/2019 23:34:22 [facility] POCT-GLUCOSE [id number] 20:57:00 Test Item Value Reference Range Interpretation Comments POC-GLUCOSE METER 119 mg/dL 70-110 H : TESTED A T [facility] 6720 (BEAKER) (test code = HUMBERTO Mackenzie [facility], 1538) [address]: Operational Review Sergeant/Techni gretel ID = [id number] for CARLINE HARDING PROTHROMBIN TIME/[id number] 19:47:00 Test Item Value Reference Range Interpretation [...] is2.5-3.5 for patients wiht mechanical heart valves.POCT-GLUCOSE [id number] 17:51:00 Test Item Value Reference Range Interpretation Comments POC-GLUCOSE METER 125 mg/dL 70-110 H : TESTED A T [facility] 6720 (BEAKER) (test code = HUMBERTO Mackenzie [facility], 1538) [address]: Operational Review Sergeant/Techni gretel ID = [id number] for BR OWN, MARIA DEL CARMEN POCT-GLUCOSE [id number] 11:55:00 Test Item Value Reference Range Interpretation Comments POC-GLUCOSE METER 169 mg/dL 70-110 H : TESTED A T [facility] 6720 (BEAKER) (test code = HUMBERTO Mackenzie [facility], 1538) [address]: Operational Review Sergeant/Techni gretel ID = [id number] for BR OWN, MARIA DEL CARMEN Hemoglobin [id number] 10:46:00 Test Item Value Reference Range Interpretation Comments Hemoglobin A1C (test code = 4548-4) 5.8 % 4.3-6.1 Lab Interpretation (test code = Normal 08947-2) [facility] HospitalHEMOGLOBIN [id number] 10:46:00 Test Item Value Reference Range Interpretation Comments HEMOGLOBIN A1C (BEAKER) (test code = 5.8 % 4.3-6.1 368) POCT-GLUCOSE [id number] 08:50:00 Test Item Value Reference Range Interpretation Comments POC-GLUCOSE METER 134 mg/dL 70-110 H : TESTED A T [facility] 6720 (BEAKER) (test code = HUMBERTO Mackenzie [place], 1538) [address]: Operational Review Sergeant/Techni gretel ID = [id number] for BR OWN, MARIA DEL CARMEN Vitamin B12 and [id number] 07:44:00 Test Item Value Reference Range Interpretation Comments Vitamin B12 (test code = 472 pg/mL 399-590 7692-9) Folate (test code = 19.4 ng/mL >=7.0 2284-8) JACI (test code = JACI) Operational Review Sergeant ID Ross WESTFALL F Lab Interpretation (test Normal code = 53231-1) [facility] HospitalVITAMIN B12 AND [id number] 07:44:00 Test Item Value Reference Range Interpretation Comments VITAMIN B12 (BEAKER) (test code = 472 pg/mL 213-816 774) FOLATE (BEAKER) (test code = 362) 19.4 ng/mL >=7.0 Operational Review Sergeant ID Ross WESTFALL FPOCT-GLUCOSE [id number] 06:57:00 Test Item Value Reference Range Interpretation Comments POC-GLUCOSE METER 114 mg/dL 70-110 H : TESTED A T [facility] 6720 (BEAKER) (test code = [place], 1538) [address]: Operational Review Sergeant/Techni gretel ID = [id number] for DE NNIS, MALIHA Lipid [id number] 06:53:00 Test Item Value Reference Range Interpretation Comments Triglycerides (test 341 mg/dL code = 2571-8) Cholesterol (test code 199 mg/dL = 2093-3) HDL (test code = 41 mg/dL 5-9) LDL Calculated (test 90 mg/dL code = 80766-4) JACI (test code = JACI) Triglyceride Reference Range: Low Risk <150 Borderline 150-199 High Risk 200-499 Very High Risk >=500 Cholesterol Reference Range: Low Risk <200 Borderline 200-239 High Risk >240 HDL Cholesterol Reference Range: Low Risk >=60 High Risk <40 LDL Cholesterol Reference Range: Optimal <100 Near Optimal 100-129 Borderline 130-159 High 160-189 Very High >=190 Operational Review Sergeant ID - MARITZA Pedersen [facility] HospitalLIPID [id number] 06:53:00 Test Item Value Reference Range Interpretation [...] Borderline 130-159 High 160-189 Very High >=190 Operational Review Sergeant ID - PIAYALBASIC METABOLIC [id number] 06:53:00 Test Item Value Reference Range Interpretation [...] S NOT APPLICABLE FOR DIALYSIS PATIEN TS. Operational Review Sergeant ID - PIAYA LCBC (HEMOGRAM ONLY)2019-05-15 06:29:00 [...] (test code = 413) MR, BRAIN, WITHOUT [id number] 04:06:00FINAL REPORT EXAM: MR, BRAIN, WITHOUT CONTRAST [...] similar to prior MRA. Signed: Denise Rosario MDRjanineort Verified Date/Time: 05/15/2019 04:06:56 MR brain without IV [id number] 04:06:00Interface, External Ris In - 05/15/2019 4:10 [...] similar to prior MRA. Signed: Denise Rosario MDRjanineort Verified Date/Time: 05/15/2019 04:06:56 [facility] 2019-05-14 21:18:00 Test Item Value Reference Range Interpretation Comments POC-GLUCOSE METER 95 mg/dL 70-110 : TESTED A T [facility] 6720 (BEAKER) (test code = [place], 1538) [address]: Operational Review Sergeant/Techni gretel ID = [id number] for MALIHA COWAN BASIC METABOLIC [id number] 14:37:00 Test Item Value Reference Range Interpretation [...] APPLICABLE FOR DIALYSIS PATIEN TS. BASIC METABOLIC [id number] 13:34:00 Test Item Value Reference Range Interpretation [...] S NOT APPLICABLE FOR DIALYSIS PATIEN TS. PT/[id number] 12:49:00 Test Item Value Reference Range Interpretation [...] mechanical heart valves.CBC W/PLT COUNT & AUTO [id number] 12:48:00 Test Item Value Reference Range Interpretation [...] % 0-1 PERCENT (BEAKER) (test code = 4662)
--- NOTE | 2020-03-16 09:16 | RAD REPORT ---
EXAM DESCRIPTION: RAD - Pelvis - 03/16/2020 8:54 am CLINICAL HISTORY: Pelvic pain status post injury FINDINGS: No fracture or dislocation is seen. The bones are osteoporotic If the patient continues to have symptoms to suggest an occult fracture then MRI would be recommended
--- NOTE | 2020-03-16 09:17 | RAD REPORT ---
EXAM DESCRIPTION: RAD - Hip Right 2 View - 03/16/2020 8:54 am CLINICAL HISTORY: Right hip pain FINDINGS: No fracture or dislocation is seen. The bones are osteoporotic If the patient continues to have symptoms to suggest an occult fracture then MRI would be recommended
--- NOTE | 2020-03-16 09:19 | RAD REPORT ---
EXAM DESCRIPTION: RAD - Femur Right - 03/16/2020 8:54 am CLINICAL HISTORY: Leg pain FINDINGS: No fracture is seen. Bones are osteoporotic
--- NOTE | 2020-03-16 09:26 | ER ---
Nurse's Notes [facility] Name: Bharati Lancaster Age: 80 yrs Sex: Female : 1940 Arrival Date: 03/16/2020 Time: 08:08 Bed 7 Private MD: Casa Morton V Diagnosis: Osteoarthritis of hip;Contusion of right hip Presentation: 03/16 08:21 Chief complaint: Patient states: I fell a few weeks ago and I have pain in my right ec1 hip. I was seen and they did xrays of my right wrist. Coronavirus screen: Client denies travel out of the [place] in the last 14 days. Ebola Screen: Patient negative for fever greater than or equal to 101.5 degrees Fahrenheit, and additional compatible Ebola Virus Disease symptoms. 08:21 Method Of Arrival: Wheelchair ec1 08:24 Initial Sepsis Screen: Does the patient meet any 2 criteria? No. Patient's initial ec1 sepsis screen is negative. Does the patient have a suspected source of infection? No. Patient's initial sepsis screen is negative. Risk Assessment: Do you want to hurt yourself or someone else? Patient reports no desire to harm self or others. Onset of symptoms was February 24, 2020. 08:24 Acuity: GONZALEZ 4 ec1 Triage Assessment: 09:14 General: Appears in no apparent distress. uncomfortable, Behavior is calm, cooperative. ec1 Pain: Complains of pain in right hip. EENT: No deficits noted. Neuro: No deficits noted. Cardiovascular: No deficits noted. Patient's skin is warm and dry. Respiratory: Airway is patent Respiratory effort is even, unlabored. GI: No signs and/or symptoms were reported involving the gastrointestinal system. : No signs and/or symptoms were reported regarding the genitourinary system. Derm: Bruising that is dark purple, on right lower abdomen. Musculoskeletal: Reports pain in right hip. Historical: - Allergies: 09:14 BACLOFEN; ec1 09:14 Codeine; ec1 09:14 Darvocet-N 100; ec1 09:14 Demerol; ec1 09:14 Hydrocodone-Acetaminophen; ec1 09:14 Morphine; ec1 09:14 plastic tape; ec1 - Home Meds: 09:14 allopurinol 100 mg Oral tab 1 tab once daily [Active]; atorvastatin 80 mg Oral tab 1 ec1 tab once daily [Active]; BRILINTA 90 mg Oral tab 1 tab 2 times per day [Active]; clonidine HCl 0.3 mg Oral tab [Active]; Edarbi 80 mg Oral tab 1 tab once daily [Active]; gabapentin 300 mg Oral cap 1 cap 3 times per day [Active]; glimepiride 2 mg Oral tab 1 tab once daily [Active]; hydralazine 100 mg Oral tab 2 times per day [Active]; levothyroxine 50 mcg tab 1 tab once daily [Active]; oxybutynin chloride 5 mg Oral tab 1 tab 2 times per day [Active]; Xarelto 15 mg Oral tab [Active]; - PMHx: 09:14 Atrial Fib; Cervical radicular pain; CHF; chronic kidney disease; Degenative join ec1 disease; Diabetes - NIDDM; DVT; GERD; Gout; Hyperlipidemia; Hypertension; Hypothyroidism; - PSHx: 09:14 Angioplasty; CABG; Heart stents; Carotid surgery; Appendectomy; Cholecystectomy; ec1 ; Hysterectomy; Tubal ligation; Gastric Bypass; Hernia repair; Ear Tubes; Tonsillectomy; Knee surgery; Disc surgery; Joint replacement; - Immunization history:: Adult Immunizations up to date. - Social history:: Smoking status: unknown. - Family history:: not pertinent. - Hospitalizations: : No recent hospitalization is reported. Screenin:16 Abuse screen: Denies threats or abuse. Denies injuries from another. Nutritional ec1 screening: No deficits noted. Tuberculosis screening: No symptoms or risk factors identified. Fall Risk Fall in past 12 months (25 points). Secondary diagnosis (15 points) No IV (0 pts). Ambulatory Aid- Crutches/Cane/Walker (15 pts). Gait- Weak (10 pts.). Mental Status- Oriented to own ability (0 pts). Assessment: 09:19 Musculoskeletal: Circulation, motion, and sensation intact. Capillary refill < 3 ec1 seconds, Reports pain in right hip, radiates down right upper leg. 10:34 Reassessment: Patient appears in no apparent distress at this time. No changes from ec1 previously documented assessment. Vital Signs: 08:24 BP 160 / 66; Resp 16 S; Temp 99.1(O); Pulse Ox 99% on R/A; Weight 90.72 kg (R); Pain ec1 8/10; 10:15 BP 139 / 59; Pulse 99; Resp 16 S; Pulse Ox 98% on R/A; ec1 ED Course: 08:08 Patient arrived in ED. as 08:09 Casa Morton MD is Private Physician. as 08:10 Brandon Shaver MD is Attending Physician. rn 08:20 Siomara Ragsdale RN is Primary Nurse. ec1 08:54 XRAY Pelvis In Process Unspecified. EDMS 08:54 XRAY Femur RIGHT In Process Unspecified. EDMS 08:54 XRAY Hip RIGHT 2 view In Process Unspecified. EDMS 09:12 Triage completed. ec1 09:16 Patient has correct armband on for positive identification. Placed in gown. Bed in low ec1 position. Side rails up X2. Adult w/ patient. 09:19 Patient pt given warm blankets. ec1 09:24 Casa Morton MD is Referral Physician. rn 10:42 No provider procedures requiring assistance completed. ec1 Administered Medications: No medications were administered Outcome: 09:25 Discharge ordered by . rn 10:42 Discharged to home via wheelchair, with family. ec1 10:42 Condition: good 10:42 Discharge instructions given to patient, family, Instructed on discharge instructions, follow up and referral plans. Demonstrated understanding of instructions, follow-up care. 10:43 Patient left the ED. ec1 Signatures: Dispatcher [employer] Jeane Lockett as Brandon Shaver MD MD rn Cruz, Emily, TOI RN ec1 Corrections: (The following items were deleted from the chart) 09:12 08:24 BP 160 / 66; Resp 16bpm; Spontaneous; Pain 8/10; ec1 ec1
--- NOTE | 2020-03-16 09:26 | EDPHYS ---
Physician Documentation [facility] Name: Bharati Lancaster Age: 80 yrs Sex: Female : 1940 Arrival Date: 03/16/2020 Time: 08:08 Bed 7 Private MD: Casa Morton V ED Physician Brandon Shaver HPI: 03/16 09:07 This 80 yrs old Female presents to ER via Wheelchair with complaints of Leg rn Pain, Hip Pain. 09:07 The patient presents with an injury, pain. The complaints affect the right hip and rn buttocks. Onset: The symptoms/episode began/occurred 2 week(s) ago. Modifying factors: The symptoms are alleviated by remaining still, the symptoms are aggravated by movement, weight bearing. Associated signs and symptoms: Pertinent negatives fever, numbness, tingling, weakness. Severity of symptoms: At their worst the symptoms were moderate, in the emergency department the symptoms are unchanged. The patient has experienced similar episodes in the past. The patient has been recently seen by a physician:. Reports 2 recent falls over last 2-3 weeks, last fall 2 weeks ago, seen but only evaluated for wrist, which was not broken. Reports achiness and pain to right hip and right proximal leg, was ambulatory since falls, but pain slowly worsening. No weakness. Pain more severe today, didn't want to bear weight. . Historical: - Allergies: 09:14 BACLOFEN; ec1 09:14 Codeine; ec1 09:14 Darvocet-N 100; ec1 09:14 Demerol; ec1 09:14 Hydrocodone-Acetaminophen; ec1 09:14 Morphine; ec1 09:14 plastic tape; ec1 - Home Meds: 09:14 allopurinol 100 mg Oral tab 1 tab once daily [Active]; atorvastatin 80 mg Oral tab 1 ec1 tab once daily [Active]; BRILINTA 90 mg Oral tab 1 tab 2 times per day [Active]; clonidine HCl 0.3 mg Oral tab [Active]; Edarbi 80 mg Oral tab 1 tab once daily [Active]; gabapentin 300 mg Oral cap 1 cap 3 times per day [Active]; glimepiride 2 mg Oral tab 1 tab once daily [Active]; hydralazine 100 mg Oral tab 2 times per day [Active]; levothyroxine 50 mcg tab 1 tab once daily [Active]; oxybutynin chloride 5 mg Oral tab 1 tab 2 times per day [Active]; Xarelto 15 mg Oral tab [Active]; - PMHx: 09:14 Atrial Fib; Cervical radicular pain; CHF; chronic kidney disease; Degenative join ec1 disease; Diabetes - NIDDM; DVT; GERD; Gout; Hyperlipidemia; Hypertension; Hypothyroidism; - PSHx: 09:14 Angioplasty; CABG; Heart stents; Carotid surgery; Appendectomy; Cholecystectomy; ec1 ; Hysterectomy; Tubal ligation; Gastric Bypass; Hernia repair; Ear Tubes; Tonsillectomy; Knee surgery; Disc surgery; Joint replacement; - Immunization history:: Adult Immunizations up to date. - Social history:: Smoking status: unknown. - Family history:: not pertinent. - Hospitalizations: : No recent hospitalization is reported. ROS: 09:07 Constitutional: Negative for fever, chills, and weight loss, Eyes: Negative for injury, rn pain, redness, and discharge, Neck: Negative for injury, pain, and swelling, Cardiovascular: Negative for chest pain, palpitations, and edema, Respiratory: Negative for shortness of breath, cough, wheezing, and pleuritic chest pain, Abdomen/GI: Negative for abdominal pain, nausea, vomiting, diarrhea, and constipation, Back: Negative for injury and pain, MS/Extremity: + right leg and hip pain Skin: Negative for injury, rash, and discoloration, Neuro: Negative for headache, weakness, numbness, tingling, and seizure. Exam: 09:07 Constitutional: This is a well developed, well nourished patient who is awake, alert, rn and in no acute distress. Head/Face: Normocephalic, atraumatic. Cardiovascular: Regular rate and rhythm. No pulse deficits. Respiratory: No increased work of breathing, no retractions or nasal flaring. Abdomen/GI: Soft, non-tender Back: No spinal tenderness. Skin: Warm, dry, + contusion right lateral hip region MS/ Extremity: Pulses equal, no cyanosis. + painful rom right hip with lateral tenderness. Legs equal length, no rotation. Neuro: Awake and alert, GCS 15, oriented to person, place, time, and situation. Vital Signs: 08:24 BP 160 / 66; Resp 16 S; Temp 99.1(O); Pulse Ox 99% on R/A; Weight 90.72 kg (R); Pain ec1 8/10; 10:15 BP 139 / 59; Pulse 99; Resp 16 S; Pulse Ox 98% on R/A; ec1 MDM: 08:11 Patient medically screened. rn 09:21 Differential diagnosis: closed fracture, contusion. Data reviewed: vital signs, nurses rn notes, radiologic studies, plain films, and as a result, I will discharge patient. Counseling: I had a detailed discussion with the patient and/or guardian regarding: the historical points, exam findings, and any diagnostic results supporting the discharge/admit diagnosis, radiology results, the need for outpatient follow up, to return to the emergency department if symptoms worsen or persist or if there are any questions or concerns that arise at home. Special discussion: I discussed with the patient/guardian in detail that at this point there is no indication for admission to the hospital. It is understood, however, that if the symptoms persist or worsen the patient needs to return immediately for re-evaluation. ED course: No acute findings on plain films, no fracture/dislocation. Will dc home with pcp f/u and return precautions. . 03/16 08:22 Order name: XRAY Pelvis; Complete Time: 09:19 rn 03/16 08:22 Order name: XRAY Femur RIGHT; Complete Time: 09:19 rn 03/16 08:22 Order name: XRAY Hip RIGHT 2 view; Complete Time: 09:19 rn Administered Medications: No medications were administered Disposition: 03/16/20 09:25 Discharged to Home. Impression: Osteoarthritis of hip, Contusion of right hip. - Condition is Stable. - Discharge Instructions: Arthritis, Contusion. - Medication Reconciliation Form, Thank You Letter, Antibiotic Education, Prescription Opioid Use form. - Follow up: Casa Morton MD; When: 2 - 3 days; Reason: Recheck today's complaints, Re-evaluation by your physician. - Problem is an ongoing problem. - Symptoms are unchanged. Signatures: Dispatcher [employer] EDMS Brandon Shaver MD MD rn Cruz, Emily, RN RN ec1 Corrections: (The following items were deleted from the chart) 09:24 09:07 Constitutional: This is a well developed, well nourished patient who is awake, rn alert, and in no acute distress. Head/Face: Normocephalic, atraumatic. Cardiovascular: Regular rate and rhythm. No pulse deficits. Respiratory: No increased work of breathing, no retractions or nasal flaring. Abdomen/GI: Soft, non-tender Back: No spinal tenderness. Skin: Warm, dry MS/ Extremity: Pulses equal, no cyanosis. + painful rom right hip with lateral tenderness. Legs equal length, no rotation. Neuro: Awake and alert, GCS 15, oriented to person, place, time, and situation. rn 10:43 09:25 03/16/2020 09:25 Discharged to Home. Impression: Osteoarthritis of hip; Contusion ec1 of right hip. Condition is Stable. Forms are Medication Reconciliation Form, Thank You Letter, Antibiotic Education, Prescription Opioid Use. Follow up: Caas Morton; When: 2 - 3 days; Reason: Recheck today's complaints, Re-evaluation by your physician. Problem is an ongoing problem. Symptoms are unchanged. rn
[2020-03-21 01:22] VITALS: TEMP 99.1
[2020-03-21 01:23] VITALS: BP 139/59; O2SAT 98
== END 2020-03-16 10:43 | disposition home or self-care (01) ==
LOC: ER 08:04
DX: M16.11 Unilateral primary osteoarthritis, right hip (principal); W19.XXXA Unspecified fall, initial encounter; Z91.81 History of falling; Y93.9 Activity, unspecified; Y92.9 Unspecified place or not applicable; Z79.01 Long term (current) use of anticoagulants; E11.22 Type 2 diabetes mellitus with diabetic chronic kidney disease; I13.0 Hypertensive heart and chronic kidney disease with heart failure and stage 1 through stage 4 chronic kidney disease, or unspecified chronic kidney disease; N18.9 Chronic kidney disease, unspecified; I50.9 Heart failure, unspecified; Z95.1 Presence of aortocoronary bypass graft; Z95.818 Presence of other cardiac implants and grafts
CPT/HCPCS: 72170; 99283

== ENCOUNTER 2020-03-18 11:41 | Inpatient (IN) | payer OTHER ==
[2020-03-18] MEDS ORDERED: NA CHLORIDE 0.9% 0 ML ONE (12:06)
[2020-03-18] MEDS ORDERED: NA CHLORIDE 0.9% 500 ML ONE ×2 (12:15→14:59)
[2020-03-18 12:28] LABS: Absolute Lymphocytes (CBC) 1.1 K/uL (0.7-4.9); Basophils % 0.3 % (0-1.3); Hematocrit 30.9 % (36.0-45.0); Lymphocytes % 5.7 % (15.3-44.8); MPV 8.8 fL (7.6-11.3); RBC Red Blood Cell Count 3.61 M/uL (3.86-4.86)
--- OUTSIDE RECORDS SUMMARY | 2020-03-18 12:30 | XMS REPORT | Clinical Summary ---
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 POCT-GLUCOSE METER Routine 05/29/2019 7:40 Resul ts for this AM AUDIT ASSOCIATE procedure are i n the results section. POCT-GLUCOSE METER Routine 05/28/2019 8:54 Resul ts for this PM AUDIT ASSOCIATE procedure are i n the results section. POCT-GLUCOSE METER Routine 05/28/2019 5:20 Resul ts for this PM AUDIT ASSOCIATE procedure are i n the results section. POCT-GLUCOSE METER Routine 05/28/2019 11:38 Resul ts for this AM AUDIT ASSOCIATE procedure are i n the results section. POCT-GLUCOSE METER Routine 05/28/2019 7:25 Resul ts for this AM AUDIT ASSOCIATE procedure are i n the results section. POCT-GLUCOSE METER Routine 05/27/2019 10:17 Resul ts for this PM AUDIT ASSOCIATE procedure are i n the results section. HEMOGLOBIN AND Routine 05/27/2019 10:27 Results f or this HEMATOCRIT AM AUDIT ASSOCIATE procedure are i n the results section. POCT-GLUCOSE METER Routine 05/26/2019 11:30 Resul ts for this PM AUDIT ASSOCIATE procedure are i n the results section. POCT-GLUCOSE METER Routine 05/26/2019 11:54 Resul ts for this AM AUDIT ASSOCIATE procedure are i n the results section. MAGNESIUM Routine 05/26/2019 5:18 Results for this AM AUDIT ASSOCIATE procedure are i n the results section. BASIC METABOLIC Routine 05/26/2019 5:18 Results for this PANEL (7) AM AUDIT ASSOCIATE procedure are i n the results section. HEMOGLOBIN AND Routine 05/26/2019 5:18 Results f or this HEMATOCRIT AM AUDIT ASSOCIATE procedure are i n the results section. POCT-GLUCOSE METER Routine 05/25/2019 10:12 Resul ts for this PM AUDIT ASSOCIATE procedure are i n the results section. XR CHEST 1 VIEW Routine 05/25/2019 7:24 Results for this PORTABLE/BEDSIDE PM AUDIT ASSOCIATE procedure a re in the results section. POCT-GLUCOSE METER Routine 05/25/2019 4:25 Resul ts for this PM AUDIT ASSOCIATE procedure are i n the results section. POCT-GLUCOSE METER Routine 05/25/2019 12:53 Resul ts for this PM AUDIT ASSOCIATE procedure are i n the results section. POCT-GLUCOSE METER Routine 05/25/2019 7:55 Resul ts for this AM AUDIT ASSOCIATE procedure are i n the results section. HEMOGLOBIN AND Routine 05/25/2019 4:53 Results f or this HEMATOCRIT AM AUDIT ASSOCIATE procedure are i n the results section. POCT-GLUCOSE METER Routine 05/24/2019 9:56 Resul ts for this PM AUDIT ASSOCIATE procedure are i n the results section. TRANSFUSION SERVICE 05/24/2019 5:52 REPORT - SCAN PM AUDIT ASSOCIATE POCT-GLUCOSE METER Routine 05/24/2019 12:28 Resul ts for this PM AUDIT ASSOCIATE procedure are i n the results section. POCT-GLUCOSE METER Routine 05/24/2019 8:19 Resul ts for this AM AUDIT ASSOCIATE procedure are i n the results section. CBC (HEMOGRAM ONLY) Routine 05/24/2019 4:59 Resu lts for this AM AUDIT ASSOCIATE procedure are i n the results section. BASIC METABOLIC Routine 05/24/2019 4:59 Results for this PANEL (7) AM AUDIT ASSOCIATE procedure are i n the results section. PREPARE Routine 05/23/2019 11:54 Results for this LEUKO-REDUCED RBC PM AUDIT ASSOCIATE procedure are in the results section. POCT-GLUCOSE METER Routine 05/23/2019 6:26 Resul ts for this PM AUDIT ASSOCIATE procedure are i n the results section. TRANSFUSION SERVICE 05/23/2019 5:54 REPORT - SCAN PM AUDIT ASSOCIATE BASIC METABOLIC Routine 05/23/2019 5:30 Results for this PANEL (7) AM AUDIT ASSOCIATE procedure are i n the results section. CBC (HEMOGRAM ONLY) Routine 05/23/2019 5:30 Resu lts for this AM AUDIT ASSOCIATE procedure are i n the results section. POCT-GLUCOSE METER Routine 05/23/2019 12:16 Resul ts for this AM AUDIT ASSOCIATE procedure are i n the results section. TRANSFUSE Routine 05/22/2019 4:22 LEUKO-REDUCED RED PM AUDIT ASSOCIATE BLOOD CELLS POCT-GLUCOSE METER Routine 05/22/2019 5:59 Resul ts for this AM AUDIT ASSOCIATE procedure are i n the results section. CBC W/PLT COUNT & Routine 05/22/2019 5:38 Result s for this AUTO DIFFERENTIAL AM AUDIT ASSOCIATE procedure are in the results section. CBC W/PLT COUNT & Routine 05/22/2019 5:38 Result s for this AUTO DIFFERENTIAL AM AUDIT ASSOCIATE procedure are in the results section. PERIPHERAL VASCULAR 05/21/2019 9:10 REPORT - SCAN PM AUDIT ASSOCIATE POCT-GLUCOSE METER Routine 05/21/2019 6:43 Resul ts for this PM AUDIT ASSOCIATE procedure are i n the results section. TRANSFUSION SERVICE 05/21/2019 5:51 REPORT - SCAN PM AUDIT ASSOCIATE POTASSIUM Routine 05/21/2019 1:28 Results for this PM AUDIT ASSOCIATE procedure are i n the results section. MAGNESIUM Routine 05/21/2019 1:28 Results for this PM AUDIT ASSOCIATE procedure are i n the results section. CBC (HEMOGRAM ONLY) Routine 05/21/2019 1:28 Resu lts for this PM AUDIT ASSOCIATE procedure are i n the results section. POCT-GLUCOSE METER Routine 05/21/2019 12:58 Resul ts for this PM AUDIT ASSOCIATE procedure are i n the results section. POCT-GLUCOSE METER Routine 05/21/2019 6:25 Resul ts for this AM AUDIT ASSOCIATE procedure are i n the results section. URIC ACID Add-On 05/21/2019 5:59 Results for this AM AUDIT ASSOCIATE procedure are i n the results section. BASIC METABOLIC Routine 05/21/2019 5:59 Results for this PANEL (7) AM AUDIT ASSOCIATE procedure are i n the results section. CBC (HEMOGRAM ONLY) Routine 05/21/2019 5:59 Resu lts for this AM AUDIT ASSOCIATE procedure are i n the results section. CBC (HEMOGRAM ONLY) Routine 05/21/2019 12:39 Resu lts for this AM AUDIT ASSOCIATE procedure are i n the results section. POCT-GLUCOSE METER Routine 05/21/2019 12:30 Resul ts for this AM AUDIT ASSOCIATE procedure are i n the results section. PREPARE STAT 05/20/2019 11:54 Results for this LEUKO-REDUCED RBC PM AUDIT ASSOCIATE procedure are in the results section. VENOUS DOPPLER LEGS Routine 05/20/2019 7:30 Resu lts for this BILATERAL PM AUDIT ASSOCIATE procedure are i n the results section. TRANSFUSION SERVICE 05/20/2019 5:53 REPORT - SCAN PM AUDIT ASSOCIATE IRON, TIBC, % SAT. Routine 05/20/2019 5:50 Resul ts for this (WITHOUT FERRITIN) PM AUDIT ASSOCIATE procedure are in the results section. TRANSFERRIN Routine 05/20/2019 5:50 Results for this PM AUDIT ASSOCIATE procedure are i n the results section. FERRITIN Routine 05/20/2019 5:50 Results for this PM AUDIT ASSOCIATE procedure are i n the results section. CBC (HEMOGRAM ONLY) Routine 05/20/2019 5:49 Resu lts for this PM AUDIT ASSOCIATE procedure are i n the results section. XR ANKLE 1 VIEW LEFT MANPREET 05/20/2019 10:10 Res ults for this AM AUDIT ASSOCIATE procedure are i n the results section. REPORT OF PROCEDURE 05/20/2019 8:39 - ENDOSCOPY URL AM AUDIT ASSOCIATE UPPER ENDOSCOPY 05/20/2019 7:56 Gastrointestinal AM AUDIT ASSOCIATE hemorrhage, unspecified gastrointestinal hemorrhage type CBC (HEMOGRAM ONLY) Routine 05/20/2019 4:06 Resu lts for this AM AUDIT ASSOCIATE procedure are i n the results section. PHOSPHORUS Routine 05/20/2019 4:06 Results for this AM AUDIT ASSOCIATE procedure are i n the results section. MAGNESIUM Routine 05/20/2019 4:06 Results for this AM AUDIT ASSOCIATE procedure are i n the results section. BASIC METABOLIC Routine 05/20/2019 4:06 Results for this PANEL (7) AM AUDIT ASSOCIATE procedure are i n the results section. CBC (HEMOGRAM ONLY) Routine 05/20/2019 12:07 Resu lts for this AM AUDIT ASSOCIATE procedure are i n the results section. POCT-GLUCOSE METER Routine 05/19/2019 6:25 Resul ts for this PM AUDIT ASSOCIATE procedure are i n the results section. CBC (HEMOGRAM ONLY) Routine 05/19/2019 6:21 Resu lts for this PM AUDIT ASSOCIATE procedure are i n the results section. TRANSFUSE STAT 05/19/2019 4:35 LEUKO-REDUCED RED PM AUDIT ASSOCIATE BLOOD CELLS TYPE AND SCREEN, STAT 05/19/2019 1:24 Results for this AUTOMATED PM AUDIT ASSOCIATE procedure are i n the results section. POCT-GLUCOSE METER Routine 05/19/2019 12:18 Resul ts for this PM AUDIT ASSOCIATE procedure are i n the results section. CBC (HEMOGRAM ONLY) Routine 05/19/2019 12:14 Resu lts for this PM AUDIT ASSOCIATE procedure are i n the results section. FIBRINOGEN Routine 05/19/2019 7:25 Results for this AM AUDIT ASSOCIATE procedure are i n the results section. PT/APTT Routine 05/19/2019 7:25 Results for this AM AUDIT ASSOCIATE procedure are i n the results section. PHOSPHORUS Routine 05/19/2019 6:52 Results for this AM AUDIT ASSOCIATE procedure are i n the results section. MAGNESIUM Routine 05/19/2019 6:52 Results for this AM AUDIT ASSOCIATE procedure are i n the results section. BASIC METABOLIC Routine 05/19/2019 6:52 Results for this PANEL (7) AM AUDIT ASSOCIATE procedure are i n the results section. CBC (HEMOGRAM ONLY) Routine 05/19/2019 5:54 Resu lts for this AM AUDIT ASSOCIATE procedure are i n the results section. POCT-GLUCOSE METER Routine 05/19/2019 12:09 Resul ts for this AM AUDIT ASSOCIATE procedure are i n the results section. POCT-GLUCOSE METER Routine 05/18/2019 6:09 Resul ts for this PM AUDIT ASSOCIATE procedure are i n the results section. POCT-GLUCOSE METER Routine 05/18/2019 12:11 Resul ts for this PM AUDIT ASSOCIATE procedure are i n the results section. CBC (HEMOGRAM ONLY) Routine 05/18/2019 3:43 Resu lts for this AM AUDIT ASSOCIATE procedure are i n the results section. PHOSPHORUS Routine 05/18/2019 3:42 Results for this AM AUDIT ASSOCIATE procedure are i n the results section. MAGNESIUM Routine 05/18/2019 3:42 Results for this AM AUDIT ASSOCIATE procedure are i n the results section. BASIC METABOLIC Routine 05/18/2019 3:42 Results for this PANEL (7) AM AUDIT ASSOCIATE procedure are i n the results section. POCT-GLUCOSE METER Routine 05/17/2019 6:32 Resul ts for this PM AUDIT ASSOCIATE procedure are i n the results section. NV CAROTID ARTERY Routine 05/17/2019 3:25 Result s for this STENT PLACEMENT W PM AUDIT ASSOCIATE procedure are in PROTECTION the results section. PROCEDURE DONE 05/17/2019 1:00 Left carotid stenosis OUTSIDE OR PM AUDIT ASSOCIATE Special Needs REQ:1300 POCT-GLUCOSE METER Routine 05/17/2019 12:28 PM Re sults for this AUDIT ASSOCIATE procedure are i n the results section. PROTHROMBIN TIME/INR Add-On 05/17/2019 8:55 AM Results for this AUDIT ASSOCIATE procedure are i n the results section. APTT Routine 05/17/2019 8:55 AM Results for this AUDIT ASSOCIATE procedure are i n the results section. POCT-GLUCOSE METER Routine 05/17/2019 6:37 AM Re sults for this AUDIT ASSOCIATE procedure are i n the results section. CBC (HEMOGRAM ONLY) Routine 05/17/2019 4:12 AM R esults for this AUDIT ASSOCIATE procedure are i n the results section. APTT Routine 05/17/2019 4:12 AM Results for this AUDIT ASSOCIATE procedure are i n the results section. POCT-ASPIRIN PLATELET Routine 05/17/2019 4:12 AM Results for this AGGREGATION AUDIT ASSOCIATE procedure are i n the results section. POCT-P2Y12 PLATELET Routine 05/17/2019 4:12 AM R esults for this AGGREGATION AUDIT ASSOCIATE procedure are i n the results section. BASIC METABOLIC PANEL Routine 05/17/2019 4:12 AM Results for this (7) AUDIT ASSOCIATE procedure are i n the results section. APTT Routine 05/17/2019 4:12 AM Results for this AUDIT ASSOCIATE procedure are i n the results section. APTT Routine 05/17/2019 1:19 AM Results for this AUDIT ASSOCIATE procedure are i n the results section. POCT-GLUCOSE METER Routine 05/16/2019 11:49 PM Re sults for this AUDIT ASSOCIATE procedure are i n the results section. POCT-GLUCOSE METER Routine 05/16/2019 6:36 PM Re sults for this AUDIT ASSOCIATE procedure are i n the results section. TRANSFUSION SERVICE 05/16/2019 6:22 PM REPORT - SCAN AUDIT ASSOCIATE NV CEREBRAL 4 VESSEL Routine 05/16/2019 4:14 PM Results for this ANGIOGRAM AUDIT ASSOCIATE procedure are i n the results section. POCT-GLUCOSE METER Routine 05/16/2019 1:29 PM Re sults for this AUDIT ASSOCIATE procedure are i n the results section. 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 APTT Routine 05/16/2019 9:03 AM AUDIT ASSOCIATE Resu lts for this procedure are i n the results section . CBC (HEMOGRAM ONLY) Routine 05/16/2019 9:03 AM AUDIT ASSOCIATE Results for this procedure are i n the results section . APTT Routine 05/16/2019 2:36 AM AUDIT ASSOCIATE Resu lts for this procedure are i n the results section . PLATELET COUNT Routine 05/16/2019 2:36 AM AUDIT ASSOCIATE Re sults for this procedure are i n the results section . PT/APTT Routine 05/16/2019 2:36 AM AUDIT ASSOCIATE Resu lts for this procedure are i n the results section . BASIC METABOLIC PANEL (7) Routine 05/16/2019 2:36 AM AUDIT ASSOCIATE Results for this procedure are i n the results section . CT CEREBRAL PERFUSION STAT 05/15/2019 11:45 PM AUDIT ASSOCIATE Results for this ANALYSIS procedure are i n the results section . CT/CTA CAROTID STAT 05/15/2019 11:45 PM AUDIT ASSOCIATE Re sults for this procedure are i n the results section . CTA BRAIN STAT 05/15/2019 11:45 PM AUDIT ASSOCIATE Resu lts for this procedure are i n the results section . CT BRAIN/STROKE TEST DESIGN STAT 05/15/2019 11:21 PM AUDIT ASSOCIATE Results for this procedure are i n the results section . POCT-GLUCOSE METER Routine 05/15/2019 8:45 PM AUDIT ASSOCIATE Results for this procedure are i n the results section . PROTHROMBIN TIME/INR STAT 05/15/2019 6:48 PM AUDIT ASSOCIATE Results for this procedure are i n the results section . TYPE AND SCREEN, AUTOMATED STAT 05/15/2019 6:47 PM AUDIT ASSOCIATE Results for this procedure are i n the results section . POCT-GLUCOSE METER Routine 05/15/2019 5:39 PM AUDIT ASSOCIATE Results for this procedure are i n the results section . POCT-GLUCOSE METER Routine 05/15/2019 11:43 AM AUDIT ASSOCIATE Results for this procedure are i n the results section . POCT-GLUCOSE METER Routine 05/15/2019 8:38 AM AUDIT ASSOCIATE Results for this procedure are i n the results section . POCT-GLUCOSE METER Routine 05/15/2019 6:46 AM AUDIT ASSOCIATE Results for this procedure are i n the results section . VITAMIN B12 AND FOLATE Routine 05/15/2019 6:09 AM AUDIT ASSOCIATE Results for this procedure are i n the results section . LIPID PANEL Routine 05/15/2019 6:09 AM AUDIT ASSOCIATE Resu lts for this procedure are i n the results section . BASIC METABOLIC PANEL (7) Routine 05/15/2019 6:09 AM AUDIT ASSOCIATE Results for this procedure are i n the results section . HEMOGLOBIN A1C Routine 05/15/2019 6:08 AM AUDIT ASSOCIATE Re sults for this procedure are i n the results section . CBC (HEMOGRAM ONLY) Routine 05/15/2019 6:08 AM AUDIT ASSOCIATE Results for this procedure are i n the results section . MR BRAIN WITHOUT IV Routine 05/15/2019 2:26 AM AUDIT ASSOCIATE Results for this CONTRAST procedure are i n the results section . POCT-GLUCOSE METER Routine 05/14/2019 9:07 PM AUDIT ASSOCIATE Results for this procedure are i n the results section . BASIC METABOLIC PANEL (7) STAT 03/31/2019 2:07 PM AUDIT ASSOCIATE Results for this procedure are i n the results section . ECG 12-LEAD Routine 03/31/2019 1:49 PM AUDIT ASSOCIATE Procedure Note - Interface, External Ris In - 03/31/2019 12:56 PM AUDIT ASSOCIATE Ventricular Rate 65 BPM Atrial Rate 65 BPM P-R Interval 138 ms QRS Duration 148 ms Q-T Interval 486 ms QTC Calculation(Bazett) 505 ms P [place] 81 degrees R [place] -41 degrees T [place] 36 degrees Normal sinus rhythm with sin us arrhythmia Left axis deviation Right bundle branch block Voltage criteria for left ve ntricular hypertrophy Abnormal ECG No previous ECGs available ECG 12-LEAD Routine 03/31/2019 1:49 PM AUDIT ASSOCIATE Resu lts for this procedure are i n the results section . CBC W/PLT COUNT & AUTO Routine 03/31/2019 12:28 PM AUDIT ASSOCIATE Results for this DIFFERENTIAL procedure are i n the results section . PT/APTT Routine 03/31/2019 12:28 PM AUDIT ASSOCIATE Resu lts for this procedure are i n the results section . CBC W/PLT COUNT & AUTO Routine 03/31/2019 12:28 PM AUDIT ASSOCIATE Results for this DIFFERENTIAL procedure are i n the results section . BASIC METABOLIC PANEL (7) Routine 03/31/2019 12:28 PM AUDIT ASSOCIATE Results for this procedure are i n the results section . after 03/18/2019 Results TRANSFUSION SERVICE REPORT - SCAN (09/07/2019 5:53 PM CDT)Only the most recent of6 resultswithin the time period is included. Narrative Performed At This result has an attachment that is no t available. SARS-CoV2/RT-PCR ([facility]) (09/07/2019 12:01 AM CDT) SARS-COV2/RT-PCR Not Detected Not Detected, [facility] Negative [facility] SARS-COV-2 [facility] PER[facility] Specimen Other - Nasopharyngeal wall structure (b adal structure) Narrative Performed At Negative results do not preclude SARS-CoV-2 [facility] infection and should not be used as [...] the Act. Fact Sheet for Healthcare Providers: https://www.Mytopia/Documents/Xpert%20Xpre ss%20SARS%20CoV-2/Fact%20Sheets/3023802%20SAR S-COV-2%20HEALTHCARE%20PROVIDERS%20FACT%20SHEE T.pdf Fact Sheet for Healthcare Patients: https://www.Mytopia/Documents/Xpert%20Xpre ss%20SARS%20CoV-2/Fact%20Sheets/3023801%20SAR S-COV-2%20PATIENT%20FACT%20SHEET.pdf Performing Laboratory: [address] [address] Performing Organization Address City/State/Zipcode Phone Number [facility] [address] [place] [address] [facility] ECG 12 lead (09/06/2019 9:35 AM CDT)Only the most recent of2 resultswithin the time period is included. Specimen Narrative Performed At Ventricular Rate 89 BPM GE MUSE Atrial Rate 89 BPM P-R Interval 126 ms QRS Duration 136 ms Q-T Interval 424 ms QTC Calculation(Bazett) 515 ms P [place] 85 degrees R [place] -40 degrees T [place] 64 degrees Normal sinus rhythm Left axis [...] 424 ms QTC Calculation(Bazett) 515 ms P [place] 85 degrees R [place] -40 degrees T [place] 64 degrees Normal sinus rhythm Left axis deviation Left ventricular hypertrophy with QRS wi dening Right bundle branch block Abnormal ECG When compared with ECG of 31-MAR-2019 13 :49, Right bundle branch block is no longer P resent Confirmed by MD Kimble Roberto ([id number]) on 09/07/2019 9:27:51 AM Performing Organization Address City/State/Zipcode Phone Number [facility] [place] POCT-P2Y12 PLATELET AGGREGATION (09/06/2019 9:34 AM CDT)Only the most recent of 2 resultswithin the time period is included. Pathologist Sig nature POC-P2Y12 Plt Agg 79 PRU [facility] Specimen Blood - Entire right upper arm (body str ucture) Narrative Performed At RANGE INFORMATION: PRU reference range is [facility] 194-418. Post Drug Results: Lower PRU levels are associated with expected antiplatelet effect. Values may be below the stated reference range above. The post-drug PRU values reported in the [employer]Now P2Y12 package insert are [id number]. Performing Organization Address [facility] Phone Number [address] [address] [facility] POCT-ASPIRIN PLATELET AGGREGATION (09/06/2019 9:34 AM CDT)Only the most recent of2 resultswithin the time period is included. Pathologist Sig nature POC-Aspirin Plt Agg 385 ARU [facility] Specimen Blood - Entire right upper arm (body str ucture) Narrative Performed At RANGE INFORMATION: 350-549 ARU Therapeutic [facility] range for platelet function. 550-700 ARU Non-Therapeutic range for platelet function. Performing Organization Address [facility]ode Phone Number [address] [address] CENTER Basic Metabolic Panel (09/06/2019 9:34 AM CDT)Only the most recent of13 results within the time period is included. Sodium 138 136 - 145 meq/L [facility] Potassium 5.4 (H)Comment: 3.5 - 5.1 meq/L [facility] Specimen slightly [facility] hemolyzed CENTER Chloride 107 98 - 107 meq/L [facility] CO2 23 22 - 29 meq/L [facility] BUN 60 (H) 7 - 21 mg/dL [facility] Creatinine 2.09 (H)Comment: 0.57 - 1.25 [facility] Specimen slightly mg/dL [facility] hemolyzed CENTER Glucose 108 (H) 70 - 105 mg/dL [facility] Calcium 9.9 8.4 - 10.2 [facility] mg/dL [facility] EGFR 23Comment: ESTIMATED mL/min/1.73 sq [facility] GFR IS NOT m [facility] ACCURATE [facility]ENTER CREATININE CLEARANCE IN PREDICTING GLOMERULAR FILTRATION RATE. ESTIMATED GFR IS NOT APPLICABLE FOR DIALYSIS PATIENTS. Specimen Blood - Entire right upper arm (body str ucture) Narrative Performed At Drafting Teacher ID - MALOU F [facility] Performing Organization Address City/[facility]/Zipcode Phone Number [address] [address] CENTER Type and screen, automated (09/06/2019 9:33 AM CDT)Only the most recent of3 resultswithin the time period is included. Pathologist Sig nature ABO/RH AUTOMATED A POSITIVE [facility] Ab Scrn NEGATIVE [facility] Specimen Blood Performing Organization Address City/[facility]/Zipcode Phone Number [facility] [address] [place] [address] PT/aPTT (09/06/2019 9:33 AM CDT)Only the most recent of4 resultswithin the time period is included. Pathologist Sig nature Protime 12.8 11.9 - 14.2 seconds [facility] INR 1.0 <=5.9 [facility] PTT 25.6 22.5 - 36.0 seconds [facility] Specimen Blood - Entire right upper arm (body str ucture) Narrative Performed At Effective 09/07/2018: PT Reference Range [facility] Change New: 11.9-14.2 Previous: 11.7-14.7 RECOMMENDED COUMADIN/WARFARIN INR THERAPY RANGES STANDARD DOSE: 2.0-3.0 Includes: PROPHYLAXIS for venous thrombosis, systemic embolization; TREATMENT for venous thrombosis and/or pulmonary embolus. HIGH RISK: Target INR is 2.5-3.5 for patients wiht mechanical heart valves. Performing Organization Address City/State/Zipcode Phone Number [facility] [address] [place] [address] CENTER CBC with platelet count + automated diff (09/06/2019 9:33 AM CDT)Only the most recent of3 resultswithin the time period is included. Pathologist Sig nature WBC 14.6 (H) 3.5 - 10.5 [facility] K/L [facility] RBC 3.55 (L) 3.93 - 5.22 [facility] M/L [facility] Hemoglobin 10.5 (L) 11.2 - 15.7 [facility] GM/DL [facility] Hematocrit 34.1 34.1 - 44.9 % [facility] MCV 96.1 (H) 79.4 - 94.8 fL [facility] MCH 29.6 25.6 - 32.2 pg [facility] MCHC 30.8 (L) 32.2 - 35.5 [facility] GM/DL [facility] RDW 14.0 11.7 - 14.4 % [facility] Platelets 280 150 - 450 K/CU [facility] MPV 11.0 9.4 - 12.3 fL [facility] nRBC 0 0 - 0 /100 WBC [facility] % Neutros 75 % [facility] % Lymphs 14 % [facility] % Monos 6 % [facility] % Eos 4 % [facility] % Baso 0 % [facility] # Neutros 11.01 (H) 1.56 - 6.13 [facility] # Lymphs 1.99 1.18 - 3.74 [facility] # Monos 0.92 (H) 0.24 - 0.36 [facility] # Eos 0.58 (H) 0.04 - 0.36 [facility] # Baso 0.04 0.01 - 0.08 [facility] Immature 1 0 - 1 % [facility] Granulocytes-Relativ [facility] e [place] Specimen Blood Performing Organization Address City/State/Zipcode Phone Number [address] [address] [place] RHYTHM STRIP - SCAN (05/31/2019 11:43 AM AUDIT ASSOCIATE) Narrative Performed At This result has an attachment that is no t available. POC-Glucose meter (05/29/2019 12:35 PM AUDIT ASSOCIATE)Only the most recent of40 results within the time period is included. POC-Glucose Meter 133 (H)Comment: : 70 - 110 [facility] TESTED AT [facility] mg/dL [address], [id number]: Drafting Teacher/Technicia n ID = [id number] for TSEGGAI, TSCARMENEREDA Specimen Blood Performing Organization Address City/[facility]/Zipcode Phone Number [address] [address] [place] Hemoglobin and hematocrit (05/27/2019 10:27 AM AUDIT ASSOCIATE)Only the most recent of3 resultswithin the time period is included. Pathologist Sig nature Hemoglobin 9.3 (L) 11.2 - 15.7 GM/DL [facility] Hematocrit 28.8 (L) 34.1 - 44.9 % [facility] Specimen Blood Narrative Performed At Drafting Teacher ID - [id number] [facility] Performing Organization Address City/State/Zipcode Phone Number [facility] [address], [place] [phone] CENTER Magnesium (05/26/2019 5:18 AM AUDIT ASSOCIATE)Only the most recent of5 resultswithin the time period is included. Pathologist Sig nature Magnesium 1.7 1.6 - 2.6 mg/dL [facility] Specimen Blood Narrative Performed At Drafting Teacher ID - KEARA W [facility] Performing Organization Address City/State/Zipcode Phone Number [facility] [address], [place] [phone] CENTER XR chest 1 view portable / bedside (05/25/2019 7:24 PM AUDIT ASSOCIATE) Specimen Narrative Performed At FINAL REPORT GE [...] External Ris In - 05/25/2019 9:43 PM AUDIT ASSOCIATE FINAL REPORT RAD, CHEST, 1 VIEW, NON [...] Date/Time: 05/25/2019 2 1:41:23 Performing Organization Address City/[facility] Phone Number GE RIS CBC (Hemogram only) (05/24/2019 4:59 AM AUDIT ASSOCIATE)Only the most recent of15 results within the time period is included. Pathologist Sig nature WBC 11.1 (H) 3.5 - 10.5 K/L [facility] RBC 2.67 (L) 3.93 - 5.22 M/L [facility] Hemoglobin 7.8 (L) 11.2 - 15.7 GM/DL [facility] Hematocrit 24.6 (L) 34.1 - 44.9 % [facility] MCV 92.1 79.4 - 94.8 fL [facility] MCH 29.2 25.6 - 32.2 pg [facility] MCHC 31.7 (L) 32.2 - 35.5 GM/DL [facility] RDW 14.1 11.7 - 14.4 % [facility] Platelets 283 150 - 450 K/CU MM [facility] MPV 11.1 9.4 - 12.3 fL [facility] nRBC 0 0 - 0 /100 WBC [facility] Specimen Blood Performing Organization Address City/[facility]/Zipcode Phone Number [facility] [address] [place] [address] CENTER Prepare Leuko-Red RBC (05/23/2019 11:54 PM AUDIT ASSOCIATE)Only the most recent of2 results within the time period is included. Pathologist Sig nature CROSSMATCH COMPATIBLE SAFETRACE TX Unit ABO A Pos SAFET[place]ACE TX UNIT NUMBER [id number] [place] Status TX_TIMEINCHART [place] Blood Bank Product RED BLOOD CELLS [place]ACE [place] PRODUCT CODE [id number] [place] Specimen Other Performing Organization Address City/[facility]/Zipcode Phone Number S[employer] [place] Transfuse Leuko-Red RBC (05/22/2019 4:22 PM AUDIT ASSOCIATE)Only the most recent of2 resultswithin the time period is included.PERIPHERAL VASCULAR REPORT - SCAN (05/21/2019 9:10 PM AUDIT ASSOCIATE) Narrative Performed At This result has an attachment that is no t available. Potassium (05/21/2019 1:28 PM AUDIT ASSOCIATE) Pathologist Sig nature Potassium 3.9 3.5 - 5.1 meq/L [facility] Specimen Blood Narrative Performed At Drafting Teacher ID - [facility] Performing Organization Address [facility] Phone Number [address] [address] CENTER Uric acid (05/21/2019 5:59 AM AUDIT ASSOCIATE) Pathologist Sig nature Uric Acid 5.7 2.6 - 7.2 mg/dL [facility] Specimen Blood Narrative Performed At Drafting Teacher ID - [facility] Performing Organization Address [facility] Phone Number [address] [address] [place] Venous doppler legs bilateral (05/20/2019 7:30 PM AUDIT ASSOCIATE) Pathologist Sig nature Ejection Fraction [facility] Specimen Impressions Performed At Right Impression [facility] 1. There is no deep venous obstruction [...] At LAB - Lower Extremities DVT Study [facility] ECHO HEARTLAB MKCKESSON [facility] Demographics Patient Name BHARATI BRAVO Date of Study 05/20/2019 Age 79 Visit Number [id number] Gender Female Accession Number [id number] Date of 1940 Referring Mina Flower Room Number 7518 Physician [employer] Marking Machine Operator Kelsey Kaufman Interpreting Tonya Burleson T Physician [...] External Ris In - 05/21/2019 8:28 AM AUDIT ASSOCIATE PV LAB - Lower Extremities DVT Study Demographics Patient Name BHARATI BRAVO Dom e of Study 05/20/2019 Age 79 Visit Number [id number] Gen hebert Female Accession Number [id number] Dom e of 1940 Referring Mina Angulo Number [id number] Physician Cut Out And Marking Machine Operator Kelsey Kaufman [facility] Tonya Burleson, T Cira mcdonald [...] are measured in cm Performing Organization Address [facility] Phone Number [facility] MKCKESSON CPACS Iron, TIBC, % sat. (without ferritin) (05/20/2019 5:50 PM AUDIT ASSOCIATE) Pathologist Sig nature Iron 14.0 (L) 40.0 - 160.0 [facility] ug/dL [facility] TIBC 264 250 - 450 ug/dL [facility] Iron % Saturation 5 (L) 20 - 55 % [facility] Specimen Blood Narrative Performed At Drafting Teacher ID - [facility] Performing Organization Address [facility] Phone Number [address] [address] CENTER Transferrin (05/20/2019 5:50 PM AUDIT ASSOCIATE) Pathologist Sig nature Transferrin 211 174 - 382 mg/dL [facility] Specimen Blood Narrative Performed At Drafting Teacher ID - [facility] Performing Organization Address [facility] Phone Number [address] [address] CENTER Ferritin (05/20/2019 5:50 PM AUDIT ASSOCIATE) Pathologist Sig nature Ferritin 29 5 - 275 ng/mL [facility] [place] Specimen Blood Narrative Performed At Drafting Teacher ID - [facility] Performing Organization Address [facility]coal Phone Number [address] [address] CENTER XR ankle 1 view left (05/20/2019 10:10 AM AUDIT ASSOCIATE) Specimen Narrative Performed At FINAL REPORT GE RIS TECHNIQUE: Two views of left ankle HISTORY: left ankle pain. COMPARISON: None. IMPRESSION: No acute displaced fracture or dislocati on. Joint spaces are within normal limits. Minimal Achilles enthesopathy. Large nisa ntar calcaneal spur and enthesopathy. Signed: Steven Lyman MD Report Verified Date/Time: 05/20/2019 18:09:20 Reading Location: [facility] C013W Consult R eading Room Procedure Note Interface, External Ris In - 05/20/2019 6:11 PM AUDIT ASSOCIATE FINAL REPORT TECHNIQUE: Two views of left ankle HISTORY: left ankle pain. COMPARISON: None. IMPRESSION: No acute displaced fracture or dislocati on. Joint spaces are within normal limits. Minimal Achilles enthesopathy. Large nisa ntar calcaneal spur and enthesopathy. Signed: Steven Lyman MD Report Verified Date/Time: 05/20/2019 1 8:09:20 Reading Location: [facility] B1 C013W Consult R eading Room Performing Organization Address City/[facility]/Zipcode Phone Number [facility] REPORT OF PROCEDURE - ENDOSCOPY URL (05/20/2019 8:39 AM AUDIT ASSOCIATE) Narrative Performed At This result has an attachment that is no t available. Phosphorus (05/20/2019 4:06 AM AUDIT ASSOCIATE)Only the most recent of3 resultswithin the time period is included. Pathologist Sig nature Phosphorus 3.3Comment: 2.3 - 4.7 mg/dL [facility] MEDICAL hemolyzed CENTER Specimen Blood Narrative Performed At Drafting Teacher ID - TERRI Chao [facility] Performing Organization Address City/[facility]/Zipcode Phone Number [address] [address] CENTER Fibrinogen (05/19/2019 7:25 AM AUDIT ASSOCIATE) Pathologist Sig nature Fibrinogen 489 (H) 225 - 434 mg/dl [facility] Specimen Blood Performing Organization Address City/State/Zipcode Phone Number [facility] [address] [place] [address] CENTER [place] Carotid Artery Stent Placement w/Protection (05/17/2019 3:25 PM AUDIT ASSOCIATE) Specimen Narrative Performed At FINAL REPORT [facility] Date of procedure May 17, 2019 CLINICAL [...] guidance and strict sterile technique a 6 Anguillan shuttle she ath was inserted through the [...] of approximately 70%. A distal protective device (EmbMaluuba) wa s gently navigated through the stenotic [...] the stent to the arterial wall with orthodoxy of the intraluminal flow and mild residual stenosis of approximately 20%. There is no evidence of platelet aggregation, or dissection. Int racranially there is orthodoxy of good antegrade flow with no evidence [...] Report Verified Date/Time: 05/17/2019 15:10:42 Reading Location: [facility] B1 Y018 Neuro Radha o Reading Room Procedure Note Interface, External Ris In - 05/17/2019 3:32 PM AUDIT ASSOCIATE FINAL REPORT Date of procedure May 17, [...] guidance and strict sterile technique a 6 Anguillan shuttle she ath was inserted through the [...] the stent to the arterial wall with orthodoxy of the intraluminal flow and mild residual stenosis of approximately 20%. There is no evidence of platelet aggregation, or dissection. Int racranially there is orthodoxy of good antegrade flow with no evidence [...] Verified Date/Time: 05/17/2019 1 5:10:42 Reading Location: [facility] [address] [place] [address] Reading Room Performing Organization Address City/State/Zipcode Phone Number GE RIS aPTT (05/17/2019 8:55 AM AUDIT ASSOCIATE)Only the most recent of6 resultswithin the time period is included. Pathologist Sig nature PTT 37.6 (H) 22.5 - 36.0 seconds [facility] Specimen Blood Performing Organization Address City/State/Zipcode Phone Number [address] [address] CENTER Prothrombin time/INR (05/17/2019 8:55 AM AUDIT ASSOCIATE)Only the most recent of2 results within the time period is included. Pathologist Sig nature Protime 13.7 11.9 - 14.2 seconds [facility] INR 1.1 <=5.9 [facility] Specimen Blood Narrative Performed At Effective 09/07/2018: PT Reference Range [facility] Change New: 11.9-14.2 Previous: 11.7-14.7 RECOMMENDED COUMADIN/WARFARIN INR THERAPY RANGES STANDARD DOSE: 2.0-3.0 Includes: PROPHYLAXIS for venous thrombosis, systemic embolization; TREATMENT for venous thrombosis and/or pulmonary embolus. HIGH RISK: Target INR is 2.5-3.5 for patients wiht mechanical heart valves. Performing Organization Address City/State/Zipcode Phone Number [facility] [address] [place] [address] CENTER [place] cerebral 4 vessel angiogram (05/16/2019 4:14 PM AUDIT ASSOCIATE) Specimen Narrative Performed At FINAL REPORT [facility] Date of service May 16, 2019 CLINICAL [...] and . Neuroleptic sedation was provided by [facility]. Using a micropuncture set and under fluo roscopic guidance and strict sterile technique a 4 Anguillan femoral she ath was inserted into the right radial artery. Through the sheath a 4 Anguillan Weaver catheter was then advanced over the [...] Report Verified Date/Time: 05/16/2019 16:45:20 Reading Location: [facility] Y018 [facility] Reading Room Procedure Note Interface, External Ris In - 05/16/2019 4:47 PM AUDIT ASSOCIATE FINAL REPORT Date of service May 16, [...] and . Neuroleptic sedation was provided by [facility]. Using a micropuncture set and under fluo roscopic guidance and strict sterile technique a 4 Anguillan femoral she ath was inserted into the right radial artery. Through the sheath a 4 [place]an [employer] catheter was then advanced over the wire [...] Verified Date/Time: 05/16/2019 1 6:45:20 Reading Location: [facility] B1 Y018 Neuro Radha o Reading Room Performing Organization Address City/State/Zipcode Phone Number GE RIS Carotid doppler bilateral (05/16/2019 12:00 PM AUDIT ASSOCIATE) Pathologist Sig nature Ejection Fraction [facility] ECHO HEART[facility] MKCK [facility] CPACS Specimen Impressions Performed At Right Impression [facility] CPACS 1. The internal carotid artery is [...] Additional Measurements:ICAPSV/CCAPSV 5.8.ICAEDV/CCAEDV 19.78. Narrative Performed At [facility] - Carotid Duplex Study [facility] Demographics Patient Name BHARATI BRAVO Date of Study 05/16/2019 Age 79 Visit Number [id number] Gender Female Accession Number [id number] Date of 1940 Referring SHALONDA BENNETT Room Number 7518 Physician Cut Out And Marking Machine Operator Pramod Pizarro Interpreting Tonya Burleson Jose Physician [...] External Ris In - 05/17/2019 1:06 PM AUDIT ASSOCIATE PV LAB - Carotid Duplex Study Demographics Patient Name BHARATI BRAVO Dom e of Study 05/16/2019 Age 79 Visit Number [id number] Gen hebert Female Accession Number [id number] Dom e of 1940 Referring SHALONDA LOUISEJoseYEVGENIY Adele m Number 7518 Physician Cut Out And Marking Machine Operator Pramod Pizarro Int erpreting Tonya Sarah BethXOCHILT [...] Measurements:ICAPSV/CCAPS V 5.8.ICAEDV/CCAEDV 19.78. Performing Organization Address [facility]/Zipcode Phone Number [facility] CPACS Platelet count (05/16/2019 2:36 AM AUDIT ASSOCIATE) Pathologist Sig nature Platelets 231 150 - 450 K/CU MM [facility] Specimen Blood Narrative Performed At Drafting Teacher ID - [id number] [facility] Performing Organization Address City/[facility]/Zipcode Phone Number [facility] [address] [place] [address] CENTER CTA carotid (05/15/2019 11:45 PM AUDIT ASSOCIATE) Specimen Narrative Performed At FINAL REPORT [facility] EXAM: CT, CT Angio, Brain. CT Carotid [...] External Ris In - 05/16/2019 1:12 AM AUDIT ASSOCIATE FINAL REPORT EXAM: CT, CT Angio, Brain. [...] Date/Time: 05/16/2019 0 1:09:25 Performing Organization Address City/[facility] Cent[facility]ode Phone Number [facility] CT brain cerebral perfusion analysis (05/15/2019 11:45 PM AUDIT ASSOCIATE) Specimen Narrative Performed At FINAL REPORT [facility] CT cerebral perfusion analysis. Comparison: None. Reason [...] External Ris In - 05/16/2019 1:25 AM AUDIT ASSOCIATE FINAL REPORT CT cerebral perfusion analysis. Comparison: [...] GE RIS CTA brain (05/15/2019 11:45 PM AUDIT ASSOCIATE) Specimen Narrative Performed At FINAL REPORT AXADO PRAMOD EXAM: CT, CT Angio, Brain. CT [...] External Ris In - 05/16/2019 1:12 AM AUDIT ASSOCIATE FINAL REPORT EXAM: CT, CT Angio, Brain. [...] 1:09:25 Performing Organization Address City/State/Zipcode Phone Number [facility] CT brain/stroke test design (05/15/2019 11:21 PM AUDIT ASSOCIATE) Specimen Narrative Performed At FINAL REPORT [facility] EXAM: CT head without contrast. CLINICAL HISTORY: [...] External Ris In - 05/15/2019 11:36 PM AUDIT ASSOCIATE FINAL REPORT EXAM: CT head without contrast. [...] 3:34:22 Performing Organization Address City/State/Zipcode Phone Number [facility] Vitamin B12 and Folate (05/15/2019 6:09 AM AUDIT ASSOCIATE) Pathologist [facility] Vitamin B12 472 213 - 816 pg/mL [facility] Folate 19.4 >=7.0 ng/mL [facility] Specimen Blood Narrative Performed At Drafting Teacher DEDE Raymond [facility] Performing Organization Address City/[facility]/Zipcode Phone Number [facility] [address] [place] [address] CENTER Lipid panel (05/15/2019 6:09 AM AUDIT ASSOCIATE) Pathologist Sig nature Triglycerides 341 mg/dL [facility] Cholesterol 199 mg/dL [facility] HDL 41 mg/dL [facility] LDL Calculated 90 mg/dL [facility] Specimen Blood Narrative Performed At Triglyceride Reference Range: [facility] Low Risk <150 Borderline 150-199 High Risk 200-499 Very High Risk >=500 Cholesterol Reference Range: Low Risk <200 Borderline 200-239 High Risk >240 HDL Cholesterol Reference Range: Low Risk >=60 High Risk <40 LDL Cholesterol Reference Range: Optimal <100 Near Optimal 100-129 Borderline 130-159 High 160-189 Very High >=190 Drafting Teacher ID - MARITZA L Performing Organization Address City/State/Zipcode Phone Number [address] [phone] [place] Hemoglobin A1c (05/15/2019 6:08 AM AUDIT ASSOCIATE) Pathologist Chaz thomas Hemoglobin A1C 5.8 4.3 - 6.1 % [facility] Specimen Blood Performing Organization Address [facility] Phone Number [address] [address] [place] MR brain without IV contrast (05/15/2019 2:26 AM AUDIT ASSOCIATE) Specimen Narrative Performed At FINAL REPORT [facility] EXAM: MR, BRAIN, WITHOUT CONTRAST CLINICAL INDICATION: [...] External Ris In - 05/15/2019 4:10 AM AUDIT ASSOCIATE FINAL REPORT EXAM: MR, BRAIN, WITHOUT CONTRAST [...] Address City/State/Zipcode Phone Number GE RIS after 03/18/2019 Insurance Payer Benefit Plan / Subscriber ID Effective Phone Address T [facility] Group Dates HUMANA - HUMANA [id number] 2018-Prese Maps Contracted MEDICARE MGD MEDICARE ADV nt CARE Advance Directives For more information, please contact: [phone] Code Status Date Activated Date Inactivated Comments Full Code 05/14/2019 4:27 PM 05/29/2019 8:25 PM This code status was determined by: Patient
--- OUTSIDE RECORDS SUMMARY | 2020-03-18 12:33 | XMS REPORT | Continuity of Care Document ---
:1940 Author Organization [facility] t Address [address] [place] [address] Care Team Providers Name Role Phone Aaron Morton Primary Care Physician Anna CM, Eva Attending Clinician Unavailable Unknown Attending Clinician Unavailable India Carrasco MD Attending Clinician Pob, Lab Main Attending Clinician Unavailable Doctor Unassigned, Name Attending Clinician Unavailable [facility] Attending Clinician Unavailable Vls-Lab Attending Clinician Unavailable Only, Test Attending Clinician Unavailable India Carrasco MD Attending Clinician Unavailable INDIA CARRASCO Attending Clinician Unavailable Katya DOHERTY, Thi Attending Clinician Claudia Mora Attending Clinician Dale Flores MD Attending Clinician Shalonda DOHERTY Attending Clinician Charles Lebron MD Attending Clinician [phone] Sami Flower MD Attending Clinician Jun DOHERTY [...] Date Sour ce Number HUMANA - MEDICARE [id number] [facility] MGD CAREHUMANA 00:00:00 - Medical MEDICARE Center [id number] 019-PresentMaps Contracted Problems Condition Condition Condition Status Onset Resolution Last Treating Co mments Source Name Details Category Date Date Treatment Clinician Date Acute Acute Disease Active 2020-[address] [facility] blood loss blood loss 2- Ella kes - anemia anemia 00:00: Medical 00 [place] Gout flare Gout flare Disease Active 2020-[address] [facility] - 00:[facility]: Medical 00 [place] COPD COPD Disease Active 2020-[address] [facility] [...] kes - demia) demia) 00:00: Medical 00 [place] Hypothyroi Hypothyroi Disease Active 2020-[address] dism dism 2- [facility] - 00:00: Medical 00 Center Coagulopat Coagulopat Disease Active 2020-[address] hy hy 2-11 [facility] - 00:00: Medical 00 [place] 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 00:00: Medica l 00 Center Cerebral Cerebral Disease Active 2020-0 [facility] hypoperfus hypoperfus 2-05 Ella kes - ion ion 00:00: Medical 00 [place] Hypertensi Hypertensi Disease Active [facility] ve crisis ve crisis 2-05 [facility] - 00:00: Medical [place] Atrial Atrial Disease Active [facility] fibrillati fibrillati 2-04 Ella kes - on on 00:00: Medical [place] Hypertensi Hypertensi Disease Active [facility] on on 2 [facility] - 00:00: Medical [place] Carotid Carotid Disease Active [facility] stenosis, stenosis, 2- [facility] - left left 00:00: Medical [place] Acute Acute Disease Active [facility] ischemic ischemic 2- [facility] - stroke stroke 00:00: Medical [place] RUE RUE Disease Active [facility] weakness weakness 2- [facility] - 00:00: Medical [place] Allergies, Adverse Reactions, Alerts Allergy Allergy Status Severity Reaction(s) Onset Inactive Treating Comm ents Source Name Type Date Date Clinician Herb Marcumensi Active Nausea And Per [facility] to Vomiting 2- daughter [facility] - adverse 00:00: Medical reaction 00 [facility] s Amlodipi Propensi Active 2018-[address] ne ty to 2-19 [facility] - adverse 00:00: Medical reaction 00 [place] s Hydrocod Propensi Active 2018-[address] one-Acet ty to 2-19 [facility] - aminophe adverse 00:00: Medical n reaction 00 [place] s Morphine Propensi Active 2018-[address] [...] [facility] - adverse 00:00: Medical reaction 00 [place] s Codeine Propensi Active Nausea And 2015-[address] [facility] ty to Vomiting, 2-20 [facility] - adverse Palpitations 00:00: Med ical reaction , Hives 00 Center s Social History Social Habit Start Date Stop Date Quantity Comments Source History of tobacco Current smoker [facility] use [facility] History [facility] - Alcohol Std Drinks Medica l [facility] History [facility] - Alcohol Binge Medical Carolee ter Sex Assigned At [facility] Cigarettes smoked 2019-08-30 2019-08-30 [facility] - current (pack per 00:00:00 00:00:00 [facility] day) - Reported Tobacco use and 2019-08-30 2019-08-30 Never used [facility] jose - exposure 00:00:00 00:00:00 [facility] Alcohol intake 2019-08-30 2019-08-30 [facility] 00:00:00 non-drinker of Medical Ce nter alcohol (finding) History [facility] 2019-03-31 2019-03-31 [address] [facility] [address] [facility] - Alcohol Frequency 00:00:00 00:00:00 [facility] Smoking Status Start Date Stop Date Source Former smoker 2019-08-30 00:00:00 2019-08-30 00:00:00 [facility] Medications Ordered Filled Start Stop Current Ordering Indication Dosage Frequency Signature Comments Components Source Medication Medication Date Date Medication? Clinician (SIG) Name Name aspirin 325 Yes 325mg QD Take [address] MG tablet 5-27 mg by [facility] - 10:35: mouth Medical 24 daily. [place] ticagrelor Yes 90mg Q.5D Take 90 mg [...] 17 needed. Center gabapentin 2020-0 Yes 300mg Q.[id number] Take [address] (NEURONTIN) 2-17 [id number] mg by L ukes - 300 MG [...] :00 dinner. Center cloNIDine 2019- No .2mg Q.[id number] Take 0.[address] HCl 2-17 02-17 [id number] mg by [facility] - (CATAPRES) 15:39: 00:00 3D mouth 3 Med ical 0.2 MG 34 :00 (three) Center tablet times daily. hydrALAZINE 2019-0 Yes 100mg Q.[id number] Take [address] (APRESOLINE 2-17 [id number] tablet [facility] - ) 100 MG 00:00: [...] 14:19: 00:00 nightly. Medical capsule 34 :00 [facility] amLODIPine 5mg QD Take [address] (NORVASC) 05-1503 by mouth [facility] - 2.5 MG 14:19: 00:00 daily . Medical tablet 05 :00 [place] azilsartan 2018-[address] medoxomil 06-01 12-20 mouth. [facility] - 80 mg Tab 12:31: 00:00 Medical 46 :00 [place] amLODIPine 2018-04 5mg QD Take [address] (NORVASC) 5 04-23 by mouth Marc es - MG tablet 00:00: 00:00 daily. Medic al 00 :00 [facility] Vital Signs Vital Name Observation Time Observation Value Comments Source Systolic blood 2019-09-06 11:36:00 110 mm[Hg] [facility] pressure [facility] Diastolic blood 2019-09-06 11:36:00 65 mm[Hg] [facility] S [facility] Heart rate 2019-09-06 11:36:00 62 /min [facility] Body temperature 2019-09-06 11:36:00 35.78 Sri [facility] Respiratory rate 2019-09-06 11:36:00 20 /min [facility] Oxygen saturation in 2019-09-06 11:36:00 96 /min [facility] Arterial blood by Medical Ce nter Pulse oximetry Body height 2019-08-30 09:30:00 167.6 cm [facility] Body weight 2019-08-30 09:30:00 90.719 kg [facility] BMI 2019-08-30 09:30:00 32.28 kg/m2 [facility] Procedures Procedure Date / Time Performing Clinician Source Performed TRANSFUSION SERVICE 2019-09-07 17:53:54 Provider, Default [facility] REPORT - SCAN [facility] SARS-COV2/RT-PCR ([facility] 2019-09-07 00:01:00 [facility]F LABS) [facility] ECG 12-LEAD 2019-09-06 09:35:00 Unknown, Hl7 Doctor [facility] POCT-P2Y12 PLATELET 2019-09-06 09:34:[address] [facility] AGGREGATION [facility] POCT-ASPIRIN PLATELET 2019-09-06 09:34:00 Livia Mora [facility] BASIC METABOLIC PANEL 2019-09-06 09:34:[address] [facility] (7) [facility] PT/APTT 2019-09-06 09:33:00 Livia Mora [facility] TYPE AND SCREEN, 2019-09-06 09:33:[address] [facility] AUTOMATED [facility] CBC W/PLT COUNT & AUTO 2019-09-06 09:33:[address] [facility] DIFFERENTIAL [facility] RHYTHM STRIP - SCAN 2019-05-31 11:43:59 Provider, Default [facility] POCT-GLUCOSE METER 2019-05-29 12:35:00 Kevin Antonio [facility] POCT-GLUCOSE METER 2019-05-29 07:40:00 Kevin Antoniod [facility] POCT-GLUCOSE METER 2019-05-28 20:54:00 [facility] POCT-[facility] MET[facility] 2019-05-28 17:20:00 [facility] POCT-GLUCOSE METER 2019-05-28 11:38:00 [facility] POCT-GLUCOSE METER 2019-05-28 07:25:[facility]SE METER 2019-05-27 22:17:00 [facility] HEMO[facility] AND 2019-05-27 10:27:00 Nikki Zuniga [facility] POCT-GLUCOSE METER 2019-05-26 23:30:00 [facility] POCT-GLUCOSE METER 2019-05-26 11:54:00 [facility] HEMOGLOBIN AND 2019-05-26 05:18:00 Nikki Zuniga [facility] BASIC METABOLIC PANEL 2019-05-26 05:18:[address] [facility] (7) [facility] MAGNESIUM 2019-05-26 05:18:00 Nikki Zuniga [facility] POCT-GLUCOSE METER 2019-05-25 22:12:00 Nikki Zuniga [facility] XR CHEST 1 VIEW 2019-05-25 19:24:[address] [facility] PORTABLE/BEDSIDE [facility] POCT-GLUCOSE METER 2019-05-25 16:25:00 Nikki Zuniga [facility] POCT-GLUCOSE METER 2019-05-25 12:53:00 Nikki Zuniga [facility] POCT-GLUCOSE METER 2019-05-25 07:55:00 Nikki Zuniga [facility] HEMOGLOBIN AND 2019-05-25 04:53:00 Nikki Zuniga [facility] POCT-GLUCOSE METER 2019-05-24 21:56:00 Nikki Zuniga [facility] TRANSFUSION SERVICE 2019-05-24 17:52:[address] [facility] REPORT - SCAN Scanning [facility] POCT-GLUCOSE METER 2019-05-24 12:28:00 Nikki Zuniga [facility] POCT-GLUCOSE METER 2019-05-24 08:19:00 Nikki Zuniga [facility] BASIC METABOLIC PANEL 2019-05-24 04:59:[address] [facility] () [facility] CBC (HEMOGRAM ONLY) 2019-05-24 04:59:00 Nikki Zuniga [facility] PREPARE LEUKO-REDUCED 2019-05-23 23:54:[address] [facility] RBC [facility] POCT-GLUCOSE METER 2019-05-23 18:26:00 Nikki Zuniga [facility] TRANSFUSION SERVICE 2019-05-23 17:54:38 Provider, [facility] REPORT SCAN [facility] CBC (HEMOGRAM ONLY) 2019-05-23 05:30:00 Flex Vásquez [facility] BASIC METABOLIC PANEL 2019-05-23 05:30:[address] [facility] () [facility] POCT-GLUCOSE METER 2019-05-23 00:16:00 Nikki Zuniga [facility] TRANSFUSE LEUKO-REDUCED 2019-05-22 16:22:[address] [facility] RED BLOOD CELLS [facility] POCT-GLUCOSE METER 2019-05-22 05:59:00 [facility] W/PLT COUNT & AUTO 2019-05-22 05:38:00 Mina Flower [facility] PERIPHERAL VASCULAR 2019-05-21 21:10:52 Provider, Default [facility] REPORT [facility] POCT-GLUCOSE METER 2019-05-21 18:43:00 [facility] TRANSFUSION SERVICE 2019-05-21 17:51:48 Provider, [facility] CBC (HEMOGRAM ONLY) 2019-05-21 13:28:00 Flex Vásquez [facility] MAGNESIUM 2019-05-21 13:28:00 Flex Vásquez [facility] POTASSIUM 2019-05-21 13:28:00 Flex Vásquez [facility] POCT-GLUCOSE METER 2019-05-21 12:58:00 Ra Mundohul [facility] POCT-GLUCOSE METER 2019-05-21 06:25:00 Mundo [facility] CBC (HEMOGRAM ONLY) 2019-05-21 05:59:00 Flex Vásquez [facility] BASIC METABOLIC PANEL 2019-05-21 05:59:[address] [facility] (7) [facility] URIC ACID 2019-05-21 05:59:00 Thad Patricia, [facility] CBC (HEMOGRAM ONLY) 2019-05-21 00:39:00 Flex Vásquez [facility] POCT-GLUCOSE METER 2019-05-21 00:30:00 Ra Mundohul [facility] PREPARE LEUKO-REDUCED 2019-05-20 23:54:00 Bao-Anmol Pedr skip [facility] VENOUS DOPPLER LEGS 2019-05-20 19:30:00 Kenji Carney [facility] TRANSFUSION SERVICE 2019-05-20 17:53:02 Provider, Reji [facility] - REPORT - SCAN Scanning [facility] FERRITIN 2019-05-20 17:50:00 Kenji Carney [facility] TRANSFERRIN 2019-05-20 17:50:00 Kenji Carney [facility] IRON, TIBC, % SAT. 2019-05-20 17:50:00 Kenji Carney [facility] - (WITHOUT FERRITIN) Medical Cente r CBC (HEMOGRAM ONLY) 2019-05-20 17:49:00 Flex Vásquez [facility] XR ANKLE 1 VIEW LEFT 2019-05-20 10:10:00 Kenji Carney [facility] REPORT OF PROCEDURE - 2019-05-20 08:39:57 Estiven Sánchez [facility] - ENDOSCOPY [facility] UPPER ENDOSCOPY 2019-05-20 07:56:00 Estiven Sánchez [facility] BASIC METABOLIC PANEL 2019-05-20 04:06:00 Vivien Sharpe [facility] - (7) [facility] Medical Ce nter MAGNESIUM 2019-05-20 04:06:00 Venkatasbrett Sharpe, [facility] St Marc es - [facility] Medical Ce nter PHOSPHORUS 2019-05-20 04:06:00 Venkatasubascencion Sharpe, [facility] St Marc [facility] Medical Ce nter CBC (HEMOGRAM ONLY) 2019-05-20 04:06:00 Flex Vásquez [facility] CBC (HEMOGRAM ONLY) 2019-05-20 00:07:00 Felx Vásquez [facility] POCT-GLUCOSE METER 2019-05-19 18:25:00 Mina Flower [facility] CBC (HEMOGRAM ONLY) 2019-05-19 18:21:00 Flex Vásquez [facility] TRANSFUSE LEUKO-REDUCED 2019-05-19 16:35:[address] [facility] RED BLOOD CELLS [facility] TYPE AND SCREEN, 2019-05-19 13:24:00 Mono Juarez [facility] POCT-GLUCOSE METER 2019-05-19 12:18:00 Mina Flower [facility] CBC (HEMOGRAM ONLY) 2019-05-19 12:14:00 Flex Vásuqez [facility] PT/APTT 2019-05-19 07:25:00 Flex Vásquez [facility] FIBRINOGEN 2019-05-19 07:25:00 Flex Vásquez [facility] BASIC METABOLIC PANEL 2019-05-19 06:52:00 Venpatel Sharpe [facility] - (7) [facility] Medical Ce nter MAGNESIUM 2019-05-19 06:52:00 Venkatasubba Sharpe, [facility] Medical Ce nter PHOSPHORUS 2019-05-19 06:52:00 Jose Manuelshreyaascencion Sharpe, [facility] Ce nter CBC (HEMOGRAM ONLY) 2019-05-19 05:54:00 Kenji Carney [facility] POCT-GLUCOSE METER 2019-05-19 00:09:00 Mundo Mina [facility] POCT-GLUCOSE METER 2019-05-18 18:09:00 Ra Mundohul [facility] POCT-GLUCOSE METER 2019-05-18 12:11:00 Vivien Sharpe [facility] Ce nter CBC (HEMOGRAM ONLY) 2019-05-18 03:43:00 Chanda Coronel [facility] BASIC METABOLIC PANEL 2019-05-18 03:42:[address] [facility] (7) [facility] Ce nter MAGNESIUM 2019-05-18 03:42:00 Ziggyferbrett Sharpe, [facility] Ce nter PHOSPHORUS 2019-05-18 03:42:00 Alfredatrium healthferbrett Sharpe, [facility] Ce nter POCT-GLUCOSE METER 2019-05-17 18:32:00 Ziggyferbrett Sharpe [facility] Ce nter NV CAROTID ARTERY STENT 2019-05-17 15:25:00 Livia Mora [facility] W PROTECTION Medical C enter PROCEDURE DONE OUTSIDE 2019-05-17 13:00:00 Surgeon Harlan [facility] POCT-GLUCOSE METER 2019-05-17 12:28:00 Vivien Sharpe [facility] Ce nter APTT 2019-05-17 08:55:00 Chanda Coronel [facility] PROTHROMBIN TIME/INR 2019-05-17 08:55:00 Livia Mora [facility] POCT-GLUCOSE METER 2019-05-17 06:37:00 Vivien Sharpe [facility] Ce nter BASIC METABOLIC PANEL 2019-05-17 04:12:[address] [facility] (7) [facility] POCT-P2Y12 PLATELET 2019-05-17 04:12:[address] [facility] AGGREGATION [facility] POCT-ASPIRIN PLATELET 2019-05-17 04:12:00 Livia Mora [facility] APTT 2019-05-17 04:12:00 Berna [facility] CBC (HEMOGRAM ONLY) 2019-05-17 04:12:00 Berna [facility] APTT 2019-05-17 01:19:00 Berna [facility] POCT-GLUCOSE METER 2019-05-16 23:49:00 Vivien Sharpe [facility] Ce nter POCT-GLUCOSE METER 2019-05-16 18:36:00 [facility] Sharpe [facility] nter TRANSFUSION SERVICE 2019-05-16 18:22:25 Provider, Reji [facility] REPORT - SCAN Scanning [facility] NV CEREBRAL 4 VESSEL 2019-05-16 16:14:00 Livia Mora [facility] ANGIOGRAM [facility] POCT-GLUCOSE METER 2019-05-16 13:29:00 Nikki Zuniga [facility] CAROTID DOPPLER 2019-05-16 12:00:00 Kenji Carney [facility] BILATERAL [facility] PROCEDURE DONE OUTSIDE 2019-05-16 12:00:[address] [facility] OR [facility] CBC (HEMOGRAM ONLY) 2019-05-16 09:03:00 Berna [facility] APTT 2019-05-16 09:03:00 Kenji Carney [facility] BASIC METABOLIC PANEL 2019-05-16 02:36:00 Nikki Zuniga [address] PT/APTT 2019-05-16 02:36:00 Livia Moraecca [facility] PLATELET COUNT 2019-05-16 02:36:00 Ramzan, Chanda [facility] APTT 2019-05-16 02:36:00 Ramzarafael, [facility] CTA BRAIN 2019-05-15 23:45:00 Manish Graf [facility] CT/CTA CAROTID 2019-05-15 23:45:00 [facility] CT CEREBRAL PERFUSION 2019-05-15 23:45:00 Berna, [facility] CT BRAIN/STROKE TEST 2019-05-15 23:21:00 Manish Graf [facility] POCT-GLUCOSE METER 2019-05-15 20:45:00 Nikki Zuniga [facility] PROTHROMBIN TIME/INR 2019-05-15 18:48:00 [facility] TYPE AND SCREEN, 2019-05-15 18:47:00 [facility] POCT-GLUCOSE METER 2019-05-15 17:39:00 Nikki Zuniga [facility] POCT-GLUCOSE METER 2019-05-15 11:43:00 Nikki Zuniga [facility] POCT-GLUCOSE METER 2019-05-15 08:38:00 Nikki Zuniga [facility] POCT-GLUCOSE METER 2019-05-15 06:46:00 Nikki Zuniga [facility] BASIC METABOLIC PANEL 2019-05-15 06:09:00 Nikki Zuniga [place] [address]) [facility] LIPID PANEL 2019-05-15 06:09:00 Nikki Zuniga [facility] VITAMIN B12 AND FOLATE 2019-05-15 06:09:00 [facility] CBC (HEMOGRAM ONLY) 2019-05-15 06:08:00 [facility] HEMOGLOBIN A1C 2019-05-15 06:08:00 [facility] MR BRAIN WITHOUT IV 2019-05-15 02:26:00 Chanda Coronel [facility] POCT-GLUCOSE METER 2019-05-14 21:07:00 [facility] BASIC METABOLIC PANEL 2019-03-31 14:07:00 Magnus García [address] ECG 12-LEAD 2019-03-31 13:49:47 Unknown, Hl7 Doctor [facility] BASIC METABOLIC PANEL 2019-03-31 12:28:00 Livia Mora [address] PT/APTT 2019-03-31 12:28:00 Livia Mora [facility] CBC W/PLT COUNT & AUTO 2019-03-31 12:28:00 [facility] Plan of Care Planned Activity Planned Date Details Comments Source Future Scheduled 2019-12-12 INFLUENZA VACCINE [facility] - Test 00:00:00 (#1) [code = [facility] INFLUENZA VACCINE (#1)] Future Scheduled 2019-04-13 MEDICARE ANNUAL [facility] - Test 00:00:00 WELLNESS (YEAR 2 or Medical Center FIRST YEAR if no IPPE) [code = MEDICARE ANNUAL WELLNESS (YEAR 2 or FIRST YEAR if no IPPE)] Encounters Start End Encounter Admission Attending Care Care Encounter Source Date/Time Date/Time Type Type Clinicians Facility Department ID 2020-01-25 2020-01-25 Transition Jaz Castillo [id number] 00:00:00 00:00:00 of Care Ermias Ly [id number] Nesha [id number] 2020-01-23 2020-01-24 Hospital Unknown, Attending [facility] 1.2.84 0.114 [id number] 10:26:00 11:59:00 Encounter Khai Carrasco no [facility] [id number]. 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 Alicia [facility] [id number] 12:34:09 12:49:09 Visit Lab Main [place] [id number] [place] [id number] [facility] [phone] [address] 2020-01-22 2020-01-22 Orders Doctor SHILPA [id number] 00:00:00 00:00:00 Only Unassigned, KAILYN [id number] [place] [facility] 4.2.7.2.686 [id number] 2020-01-17 2020-01-17 Wax Machine Operator [facility] [id number] 08:19:12 08:49:12 Visit HEALTH [id number] CLINICS 4.2.7.2.686 [id number] [facility] 2020-01-15 2020-01-15 Wax Machine Operator Vls-Lab [facility] [id number] 12:07:39 12:22:39 Visit SPECIALTY [id number] CARE 4.2.7.2.686 CENTER AT [id number] [address] 2020-01-15 2020-01-15 Laboratory Only, [facility] [id number] 10:08:01 10:23:01 Only Test [place] [id number] [place] 4.2.7.2.686 [place] [id number] 2020-01-15 2020-01-15 Orders Doctor SHILPA [id number] 00:00:00 00:00:00 Only Unassigned, KAILYN [id number] [place] [facility] 4.2.7.2.686 [id number] 2020-01-08 2020-01-08 Office Elvin, Khai CARDENAS [id number] 10:52:01 16:03:43 Visit [facility] [id number] [place] [id number] [place] [id number] Medical [address] Results Test Description Test Time Test Comments Results Result [facility] e Comments ECG 12 lead 2019-08-12 Interface, External [facility] 8 Ris In - 09/07/2019 - Med ical 09:27:54 9:27 AM Center CDTVentricular Rate 89 BPMAtrial Rate 89 BPMP-R Interval 126 msQRS Duration 136 msQ-T Interval 424 msQTC Calculation(Bazett) 515 msP [place] 85 degreesR [place] -40 degreesT [place] 64 degreesNormal sinus rhythmLeft axis deviationLeft ventricular hypertrophy with QRS wideningRight bundle branch blockAbnormal ECGWhen compared with ECG of 31-MAR-2019 13:49,Right bundle branch block is no longer PresentConfirmed by MD Lamin, Kadeem ([id number]) on 09/07/2019 9:27:51 AM SARS-CoV2/RT-PCR ([facility]) 2019-09-07 06:43:00 Test Item Value Reference Range Interpretation Comme nts SARS-COV2/RT-PCR (test code = Not Detected Not Detected, Negative 82819-0) SARS-COV-2 PERFORMING LAB [facility] (test code = 46115-1) JACI (test code = JACI) Negative results [...] of the Act. Fact Sheet for Healthcare Providers:https://www.Goodwall/Documents/Xpert%20Xpress %20SARS%20CoV-2/Fact%20Sheets /302-3802%96HKLP-TCL-1%20HEAL THCARE%20PROVIDERS%20FACT%20S HEET.pdf Fact Sheet for Healthcare Patients:https://www.LoanLogics/Documents/Xpert%20Xpress% 20SARS%20CoV-2/Fact%20Sheets/ 302-3801%78VVHP-KZV-0%20PATIE NT%20FACT%20SHEET.pdf Performing Laboratory:[facility] [place] [id number] [place], [place] [address]ARS-COV2/RT-PCR ([facility]F [facility])2019-09-07 06:43:00 Test Item Value Reference Range Interpretation Comments SARS-COV2/RT-PCR (test Not Detected Not Detected, Negative code = 5677492) SARS-COV-2 PERFORMING LAB [facility] (test code = 7882606) Negative results do not preclude SARS-CoV-2 infection [...] of the Act.Fact Sheet for Healthcare Pro viders:https://www.Nuevora/Documents/Xpert%20Xpress%20SARS%20CoV-2/Fact%20Sh eets/302-3802%10LQHF-LAU-9%20HEALTHCARE%20PROVIDERS%20FACT%20SHEET.pdfFact Sheet for Healthcare Patients:https://www.NorthPage/Documents/Xpert%20Xpress%20SARS%20CoV-2/Fact%20Sheets/302-3801%20SARS-COV -2%20PATIENT%20FACT%20SHEET.pdfPerforming Laboratory:[address] [id number]-[id number] PLATELET AGGREGATION 2019-09-06 11:11:00 Test Item Value [...] the VerifyNow P2Y12 package insert are 18-435. [facility] [id number] 11:11:00 Test Item Value Reference Range Interpretation Comments POC-P2Y12 PLATELET AGG (BEAKER) (test 79 PRU code = 2303) RANGE INFORMATION: PRU reference range is 194-418. Post Drug Results: Lower PRU levels are associated with expected antiplatelet effect. Values may be below the stated reference range above. The post-drug PRU values reported in the VerifyNow P2Y12 package insert are 18-435.POCT-ASPIRIN PLATELET [id number] 11:08:00 Test Item Value Reference Range Interpretation Comments POC-Aspirin Plt Agg 385 ARU (test code = 2302) JACI (test code = RANGE INFORMATION: 350-549 JACI) ARU Therapeutic range for platelet function. 550-700 ARU Non-Therapeutic range for platelet function. [facility] [id number] 11:08:00 Test Item Value Reference Range Interpretation Comments POC-ASPIRIN PLATELET AGG (BEAKER) 385 ARU (test code = 2302) RANGE INFORMATION: 350-549 ARU Therapeutic range for platelet function. 550-700 ARU Non-Therapeutic range for platelet function.Type and screen, [id number] 10:37:00 Test Item Value Reference Range Interpretation Comments ABO/RH AUTOMATED (BEAKER) (test A POSITIVE code = 2260) Ab Scrn (test code = 890-4) NEGATIVE [facility] Metabolic [id number] 10:35:00 Test Item Value Reference Range Interpretation Comments Sodium (test code = 138 meq/L 613-489 6120-2) Potassium (test code = 5.4 meq/L 3.5-5.1 [...] Calcium (test code = 9.9 mg/dL 8.4-10.2 91587-4) EGFR (test code = 23 mL/min/1.73 [place] [address]-4) NOT ACCURATE CREATININE CLEARANCE IN PREDICTING GLOMERULAR FILTRATION RATE . ESTIMATED GFR I S NOT APPLICABLE FOR DIALYSIS PATIENTS. JACI (test code = JACI) Business Insight And Analytics Manager ID - MALOU Raymond Lab Interpretation Abnormal (test code = 85027-9) [facility] METABOLIC [id number] 10:35:00 Test Item Value Reference Range Interpretation [...] S NOT APPLICABLE FOR DIALYSIS PATIEN TS. Business Insight And Analytics Manager ID - [facility] with platelet count + automated [id number] 10:33:00 Test Item Value Reference Range Interpretation [...] 450 K/CU MM MPV (test code = 42590-6) 11.0 fL 9.4-12.3 nRBC (test code = [...] 2801) Lab Interpretation (test code = Abnormal 02443-9) [facility] W/PLT COUNT & AUTO [id number] 10:33:00 Test Item Value Reference Range Interpretation [...] 0-1 PERCENT (BEAKER) (test code = 2801) PT/[id number] 10:12:00 Test Item Value Reference Range Interpretation Comments Protime (test code = 12.8 11.9- 14.2 5902-2) seconds INR (test code = 1.0 <=5.9 6301-6) PTT (test code = 25.6 22.5- 36.0 28182-7) seconds JACI (test code = JACI) Effective 09/07/2018: PT Reference Range ChangeNew: 11.9-14.2 Previous: 11.7-14.7 RECOMMENDED COUMADIN/WARFARIN INR THERAPY RANGESSTANDARD DOSE: 2.0-3.0 Includes: PROPHYLAXIS for venous thrombosis, systemic embolization; TREATMENT for venous thrombosis and/or pulmonary embolus.HIGH RISK: Target INR is 2.5-3.5 for patients wiht mechanical heart valves. Lab Interpretation Normal (test code = 54534-3) [facility] CenterPT/[id number] 10:12:00 Test Item Value Reference Range Interpretation [...] is2.5-3.5 for patients wiht mechanical heart valves.POC-Glucose [id number] 12:47:00 Test Item Value Reference Range Interpretation Comments POC-Glucose Meter (test 133 mg/dL 70-110 H : TE STED AT [facility] code = 1538) 20 [facility], [address]: Business Insight And Analytics Manager/Techni gretel ID = [id number] for TSEGGAI, CHARLOTTEE REDA Lab Interpretation (test Abnormal code = 66386-9) [facility] [id number] 12:47:00 Test Item Value Reference Range Interpretation Comments POC-GLUCOSE METER 133 mg/dL 70-110 H : TESTED A T [facility] 6720 (BEAKER) (test code [facility], = 1538) [address]: Business Insight And Analytics Manager/Techni gretel ID = [id number] for TSEG GAI, TSIGHEREDA POCT-GLUCOSE [id number] 07:59:00 Test Item Value Reference Range Interpretation Comments POC-GLUCOSE METER 125 mg/dL 70-110 H : TESTED A T [facility] 6720 (BEAKER) (test code [facility], = 1538) [address]: Business Insight And Analytics Manager/Techni gretel ID = [id number] for TSEG GAI, TSIGHEREDA POCT-GLUCOSE [id number] 21:06:00 Test Item Value Reference Range Interpretation Comments POC-GLUCOSE METER 192 mg/dL 70-110 H : TESTED A T [facility] 6720 (BEAKER) (test code = [facility], 1538) [address]: Business Insight And Analytics Manager/Techni gretel ID = [id number] for DE NNIS, MALIHA POCT-GLUCOSE [id number] 17:33:00 Test Item Value Reference Range Interpretation Comments POC-GLUCOSE METER 124 mg/dL 70-110 H : TESTED A T [facility] 6720 (BEAKER) (test code [facility], = 1538) [address]: Business Insight And Analytics Manager/Techni gretel ID = [id number] for TSEG GAI, TSIGHEREDA POCT-GLUCOSE [id number] 11:50:00 Test Item Value Reference Range Interpretation Comments POC-GLUCOSE METER 102 mg/dL 70-110 : [facility] (test code [facility], = 1538) [address]: Business Insight And Analytics Manager/Techni gretel ID = [id number] for TSEG GAI, TSIGHEREDA POCT-GLUCOSE [id number] 07:44:00 Test Item Value Reference Range Interpretation Comments POC-GLUCOSE METER 96 mg/dL 70-110 : [facility] ([facility]ER[facility] (test code [facility], = 1538) [address]: Business Insight And Analytics Manager/Techni gretel ID = [id number] for TSEG GAI, TSIGHEREDA POCT-GLUCOSE [id number] 22:28:00 Test Item Value Reference Range Interpretation Comments POC-GLUCOSE METER 201 mg/dL 70-110 H : Notified RN/: (GIFTY) (test code = TESTED AT [place] [address] 1538) [facility], [address]: Business Insight And Analytics Manager/Techni gretel ID = [id number] for LATHBRIDGE, AMRITA ICE Hemoglobin and [id number] 11:01:00 Test Item Value Reference Range Interpretation Comments Hemoglobin (test code = 9.3 11.2- 15.7 GM/DL L 786-4) Hematocrit (test code = 28.8 % 34.1-44.9 L 4544-3) JACI (test code = JACI) Business Insight And Analytics Manager ID - [id number] Lab Interpretation (test Abnormal code = 53502-2) [facility] CenterHEMOGLOBIN AND [id number] 11:01:00 Test Item Value Reference Range Interpretation Comments HEMOGLOBIN (BEAKER) (test code = 9.3 GM/DL 11.2-15.7 L 410) HEMATOCRIT (BEAKER) (test code = 28.8 % 34.1-44.9 L 411) Business Insight And Analytics Manager ID - 6000POCT-GLUCOSE [id number] 23:42:00 Test Item Value Reference Range Interpretation Comments POC-GLUCOSE METER 158 mg/dL 70-110 H : Notified RN/: (GIFTY) (test code = TESTED AT [place] [id number] 1538) [facility], [address]: Business Insight And Analytics Manager/Techni gretel ID = [id number] for LATAMRITA WHITING ICE POCT-GLUCOSE [id number] 12:06:00 Test Item Value Reference Range Interpretation Comments POC-GLUCOSE METER 157 mg/dL 70-110 H : TESTED A T [facility] 6720 (BEAKER) (test code [facility], = 1538) [address]: Business Insight And Analytics Manager/Techni gretel ID = [id number] for CHARLOTTE BRYANEREDEva [id number] 06:57:00 Test Item Value Reference Range Interpretation Comments Magnesium (test code = 1.7 mg/dL 1.6-2.6 93091-9) JACI (test code = JACI) Business Insight And Analytics Manager ID - KEARA W Lab Interpretation (test Normal code = 99007-2) [facility] CenterMAGNESIUM2020-02-14 06:57:00 Test Item Value Reference Range Interpretation Comments MAGNESIUM (BEAKER) (test code = 1.7 mg/dL 1.6-2.6 627) Business Insight And Analytics Manager ID - KEARA WBASIC METABOLIC [id number] 06:57:00 Test Item Value Reference Range Interpretation [...] S NOT APPLICABLE FOR DIALYSIS PATIEN TS. Business Insight And Analytics Manager ID - KEARA WHEMOGLOBIN AND [id number] 05:42:00 Test Item Value Reference Range Interpretation Comments HEMOGLOBIN (BEAKER) (test code = 8.3 GM/DL 11.2-15.7 L 410) HEMATOCRIT (BEAKER) (test code = 26.4 % 34.1-44.9 L 411) Business Insight And Analytics Manager ID - 6000POCT-GLUCOSE [id number] 22:26:00 Test Item Value Reference Range Interpretation Comments POC-GLUCOSE METER 137 mg/dL 70-110 H : TESTED A T [facility] 6720 (GIFTY) (test code = [place], 1538) [address]: Business Insight And Analytics Manager/Techni gretel ID = [id number] for MALLORY GRAHAM RAD, CHEST, 1 VIEW, NON [id number] 21:41:00Reason for exam:->shortness of breath, coughShould this [...] 21:41:23 XR chest 1 view portable / [id number] 21:41:00 Interface, External Ris In - 05/25/2019 [...] signed by: ANNELISE DAVIS MDon 05/25/2019 09:41 [facility] [id number] 16:37:00 Test Item Value Reference Range Interpretation Comments POC-GLUCOSE METER 217 mg/dL 70-110 H : TESTED A T [facility] 6720 (BEAKER) (test code = [facility], 1538) [address]: Business Insight And Analytics Manager/Techni gretel ID = [id number] for RO DGERS, JAMECA POCT-GLUCOSE [id number] 13:05:00 Test Item Value Reference Range Interpretation Comments POC-GLUCOSE METER 196 mg/dL 70-110 H : TESTED A T [facility] 6720 (BEAKER) (test code = [facility], 1538) [address]: Business Insight And Analytics Manager/Techni gretel ID = [id number] for RO DGERS, JAMECA POCT-GLUCOSE [id number] 08:49:00 Test Item Value Reference Range Interpretation Comments POC-GLUCOSE METER 95 mg/dL 70-110 : TESTED A T [facility] 6720 (BEAKER) (test code = [facility], 1538) [address]: Business Insight And Analytics Manager/Techni gretel ID = [id number] for RODG ERS, JAMECA HEMOGLOBIN AND [id number] 05:24:00 Test Item Value Reference Range Interpretation Comments HEMOGLOBIN (BEAKER) (test code = 8.4 GM/DL 11.2-15.7 L 410) HEMATOCRIT (BEAKER) (test code = 27.0 % 34.1-44.9 L 411) Business Insight And Analytics Manager ID - 6000POCT-GLUCOSE [id number] 22:08:00 Test Item Value Reference Range Interpretation Comments POC-GLUCOSE METER 164 mg/dL 70-110 H : TESTED A T [facility] 6720 (BEAKER) (test code = [facility], 1538) [address]: Business Insight And Analytics Manager/Techni gretel ID = [id number] for NELI GRAHAMA POCT-GLUCOSE [id number] 12:57:00 Test Item Value Reference Range Interpretation Comments POC-GLUCOSE METER 156 mg/dL 70-110 H : TESTED A T [facility] 6720 (BEAKER) (test code = [facility], 1538) [address]: Business Insight And Analytics Manager/Techni gretel ID = [id number] for RO DGERS, JAMECA POCT-GLUCOSE [id number] 08:38:00 Test Item Value Reference Range Interpretation Comments POC-GLUCOSE METER 102 mg/dL 70-110 : TESTED A T [facility] 6720 (BEAKER) (test code = HUM[place]ERTO Mackenzie [place], 1538) [address]: Business Insight And Analytics Manager/Techni gretel ID = [id number] for NITA GRANGER BASIC METABOLIC [id number] 06:30:00 Test Item Value Reference Range Interpretation [...] S NOT APPLICABLE FOR DIALYSIS PATIEN TS. Business Insight And Analytics Manager ID - GALAPCBC (Hemogram only)2019-05-24 05:51:00 Test [...] 450 K/CU MM MPV (test code = 11626-8) 11.1 fL 9.4-12.3 nRBC (test code = 413) 0 0- 0 /100 WBC Lab Interpretation (test code = Abnormal 75486-9) [facility] (HEMOGRAM ONLY)2019-05-24 05:51:00 Test Item Value Reference [...] (BEAKER) (test code = 413) Prepare Leuko-Red [id number] 23:54:00 Test Item Value Reference Range Interpretation Comments CROSSMATCH (test code = 2264) COMPATIBLE Unit ABO (test code = A Pos 7926282) UNIT NUMBER (test code = [id number] 934-0) Status (test code = 6552962) TX_TIMEINCHART Blood Bank Product (test code RED BLOOD CELLS = 2263) PRODUCT CODE (test code = Z2996Q98 933-2) [facility] [id number] 18:38:00 Test Item Value Reference Range Interpretation Comments POC-GLUCOSE METER 243 mg/dL 70-110 H : Notified RN/MD: (GIFTY) (test code = TESTED AT [facility] 0324 3567) [place], [address]: Business Insight And Analytics Manager/Techni gretel ID = [id number] for Keiry Owens BASIC METABOLIC [id number] 06:25:00 Test Item Value Reference Range Interpretation [...] S NOT APPLICABLE FOR DIALYSIS PATIEN TS. Business Insight And Analytics Manager ID - GALAPCBC (HEMOGRAM ONLY)2019-05-23 05:56:00 Test [...] 0-0 (BEAKER) (test code = 413) POCT-GLUCOSE [id number] 00:29:00 Test Item Value Reference Range Interpretation Comments POC-GLUCOSE METER 126 mg/dL 70-110 H : TESTED A T [facility] 6720 (BEAKER) (test code = [place], 1538) [address]: Business Insight And Analytics Manager/Techni gretel ID = [id number] for MASON PHELPS CBC W/PLT COUNT & AUTO [id number] 06:36:00 Test Item Value Reference Range Interpretation [...] PERCENT (BEAKER) (test code = 2801) POCT-GLUCOSE [id number] 06:11:00 Test Item Value Reference Range Interpretation Comments POC-GLUCOSE METER 111 mg/dL 70-110 H : TESTED A T [facility] 6720 [facility] (test code = HUMBERTO Gurdeep [facility], 1538) [address]: Business Insight And Analytics Manager/Techni gretel ID = [id number] for RAFAEL CARBAJAL POCT-GLUCOSE [id number] 18:56:00 Test Item Value Reference Range Interpretation Comments POC-GLUCOSE METER 137 mg/dL 70-110 H : Notified RN/MD: (GIFTY) (test code = TESTED AT [facility] 6720 1538) [facility], [address]: Business Insight And Analytics Manager/Techni gretel ID = [id number] for SH DANDY WINSTON [id number] 13:58:00 Test Item Value Reference Range Interpretation Comments Potassium (test code = 3.9 meq/L 3.5-5.1 2823-3) JACI (test code = JACI) Business Insight And Analytics Manager ID - MALOU Raymond Lab Interpretation (test Normal code = 70041-8) [facility] CenterPOT[facility]SIUM2020-02-09 13:58:00 Test Item Value Reference Range Interpretation Comments POTASSIUM (BEAKER) (test code = 3.9 meq/L 3.5-5.1 379) Business Insight And Analytics Manager ID - MALOU [id number] 13:58:00 Test Item Value Reference Range Interpretation Comments MAGNESIUM (BEAKER) (test code = 1.8 mg/dL 1.6-2.6 627) Business Insight And Analytics Manager ID - MALOU FCBC (HEMOGRAM ONLY)2019-05-21 13:41:00 [...] 0-0 (BEAKER) (test code = 413) POCT-GLUCOSE [id number] 13:11:00 Test Item Value Reference Range Interpretation Comments POC-GLUCOSE METER 164 mg/dL 70-110 H : Notified RN/MD: (BEAKER) (test code = TESTED AT [facility] 6720 5992) [facility] AL[facility]ERT[facility], [address]: Business Insight And Analytics Manager/Techni gretel ID = [id number] for DANDY WINSTON Uric [id number] 10:43:00 Test Item Value Reference Range Interpretation Comments Uric Acid (test code = 5.7 mg/dL 2.6-7.2 3084-1) JACI (test code = JACI) Business Insight And Analytics Manager ID - MALOU F Lab Interpretation (test Normal code = 24354-0) [facility] CenterURIC [id number] 10:43:00 Test Item Value Reference Range Interpretation Comments URIC ACID (BEAKER) (test code = 5.7 mg/dL 2.6-7.2 773) Business Insight And Analytics Manager ID - MALOU FVenous doppler legs [id number] 08:28:09Ejection FractionSLE ECHO HEARTLAB MKCKESSON CPACSRight Impression1. [...] of Study 05/20/2019 Age 79 Visit Number [id number] Gender Female Accession Number [id number] Date of 1940 Referring Mina Flower Room Number 7518 Physician Mail Handler Assistant Kelsey Burleson [facility] Physician ProcedureType of Study: Veins: Lower Extremities [...] in cm/s ; Diameters are measured in [facility] BASIC METABOLIC [id number] 06:40:00 Test Item Value Reference Range Interpretation [...] 697) EGFR (BEAKER) (test 44 mL/min/1.73 ESTIMA YLN GFR IS code = 1092) sq m NOT ACCURATE CREATININE CLEARANCE IN PREDICTING GLOMERULAR FILTRATION RATE . ESTIMATED GFR I S NOT APPLICABLE FOR DIALYSIS PATIEN TS. Business Insight And Analytics Manager ID - KEARA WPOCT-GLUCOSE [id number] 06:37:00 Test Item Value Reference Range Interpretation Comments POC-GLUCOSE METER 156 mg/dL 70-110 H : TESTED A T [facility] 6720 (BEAKER) (test code = [place], 1538) [address]: Business Insight And Analytics Manager/Techni gretel ID = [id number] for VA RELA, RAJ CBC (HEMOGRAM ONLY)2019-05-21 [...] 0-0 (BEAKER) (test code = 413) POCT-GLUCOSE [id number] 00:42:00 Test Item Value Reference Range Interpretation Comments POC-GLUCOSE METER 155 mg/dL 70-110 H : TESTED A T [facility] 6720 (BEAKER) (test code = HUMBERTO Mackenzie [facility], 1538) [address]: Business Insight And Analytics Manager/Techni gretel ID = [id number] for DC RAJ ESPINOZA [id number] 19:49:00 Test Item Value Reference Range Interpretation Comments Ferritin (test code = 29 ng/mL 5-275 2276-4) JACI (test code = JACI) Business Insight And Analytics Manager DEDE Chao Lab Interpretation (test Normal code = 23008-0) [facility] CenterFERRITIN2020-02-08 19:49:00 Test Item Value Reference Range Interpretation Comments FERRITIN (BEAKER) (test code = 361) 29 ng/mL 5-275 Business Insight And Analytics Manager DEDE MURRAY UHkcsggdlrhk1535-97-81 18:51:00 Test Item Value Reference Range Interpretation Comments Transferrin (test code = 211 mg/dL 144-912 0802-6) JACI (test code = JACI) Business Insight And Analytics Manager ID - TERRI Chao Lab Interpretation (test Normal code = 12880-7) [facility] CenterIron, TIBC, % sat. (without ferritin)2019-05-20 18:51:00 Test Item Value Reference Range Interpretation Comments Iron (test code = 2498-4) 14.0 ug/dL 40-160 L TIBC (test code = 2500-7) 264 ug/dL 250-450 Iron % Saturation (test 5 % 20-55 L code = 2502-3) JACI (test code = JACI) Business Insight And Analytics Manager ID - TERRI Chao Lab Interpretation (test Abnormal code = 65418-2) [facility] CenterTRANSFERRIN2020-02-08 18:51:00 Test Item Value Reference Range Interpretation Comments TRANSFERRIN (BEAKER) (test code = 211 mg/dL 174-382 541) Business Insight And Analytics Manager ID - TERRI LACYON, TIBC, % SAT. (WITHOUT FERRITIN)2019-05-20 18:51:00 Test Item Value Reference Range Interpretation Comments IRON (BEAKER) (test code = 547) 14.0 ug/dL 40.0-160.0 L TOTAL IRON BINDING CAPACITY 264 ug/dL 250-450 (BEAKER) (test code = 769) IRON % SATURATION (2) (BEAKER) 5 % 20-55 L (test code = 2590) Business Insight And Analytics Manager ID - TERRI MRAD, ANKLE, 1 VIEW, [id number] 18:09:00Reason for exam:- >left ankle painShould this be performed at the bedside?->YesFINAL REPORT TECHNIQUE: Two views of left ankle HISTORY: left ankle pain. COMPARISON: None. IMPRESSION:No acute displaced fracture or dislocation. Joint spaces are within normal limits.Minimal Achilles enthesopathy. Large plantar calcaneal spur and enthesopathy. Signed: Steven Lyman Verified Date/Time: 05/20/2019 18:09:20 Reading Location: [address] Reading Room XR ankle 1 view [id number] 18:09:00Interface, External Ris In - 05/20/2019 6:11 PM CSTFINAL REPORT TECHNIQUE: Two views of left ankle HISTORY: left ankle pain. COMPARISON: None. IMPRESSION:No acute displaced fracture or dislocation. Joint spaces are within normal limits.Minimal Achilles enthesopathy. Large plantar calcaneal spur and enthesopathy. Signed: Steven Lyman MDRepdarryl Verified Date/Time: 05/20/2019 18:09:20 Reading Location: [facility] C013W Consult Reading Room [facility] (HEMOGRAM ONLY) 2019-05-20 17:58:00 Test Item Value [...] WBC 0-0 (BEAKER) (test code = 413) [id number] 05:29:00 Test Item Value Reference Range Interpretation Comments Phosphorus (test code 3.3 mg/dL 2.3-4.7 Specim en = 2777-1) slightly hemolyzed JACI (test code = JACI) Business Insight And Analytics Manager ID - TERRI M Lab Interpretation Normal (test code = 45287-3) [facility] CenterMAGN[facility]IUM2020-02-08 05:29:00 Test Item Value Reference Range Interpretation Comments MAGNESIUM (BEAKER) 1.9 mg/dL 1.6-2.6 Specimen slightly (test code = 627) hemolyzed Business Insight And Analytics Manager ID - TERRI [id number] 05:29:00 Test Item Value Reference Range Interpretation Comments PHOSPHORUS (BEAKER) 3.3 mg/dL 2.3-4.7 Specimen slightly (test code = 604) hemolyzed Business Insight And Analytics Manager ID - TERRI MBASIC METABOLIC [id number] 05:29:00 Test Item Value Reference Range Interpretation [...] S NOT APPLICABLE FOR DIALYSIS PATIEN TS. Business Insight And Analytics Manager ID - TERRI MCBC (HEMOGRAM ONLY)2019-05-20 04:51:00 [...] 0-0 (BEAKER) (test code = 413) POCT-GLUCOSE [id number] 18:36:00 Test Item Value Reference Range Interpretation Comments POC-GLUCOSE METER 101 mg/dL 70-110 : [facility] (BEAKER[facility] (test code = [place], 1538) [address]: Business Insight And Analytics Manager/Techni gretel ID = [id number] for DANDY ESTRADA CBC (HEMOGRAM ONLY)2019-05-19 18:33:00 [...] 0-0 (BEAKER) (test code = 413) POCT-GLUCOSE [id number] 12:30:00 Test Item Value Reference Range Interpretation Comments POC-GLUCOSE METER 130 mg/dL 70-110 H : TESTED A T [facility] 6720 (BEAKER) (test code = [place], 1538) [address]: Business Insight And Analytics Manager/Techni gretel ID = [id number] for DANDY ESTRADA [id number] 08:02:00 Test Item Value Reference Range Interpretation Comments PHOSPHORUS (BEAKER) (test code = 2.5 mg/dL 2.3-4.7 604) Business Insight And Analytics Manager ID - TERRI [id number] 08:02:00 Test Item Value Reference Range Interpretation Comments MAGNESIUM (BEAKER) (test code = 1.6 mg/dL 1.6-2.6 627) Business Insight And Analytics Manager ID - TERRI MBASIC METABOLIC [id number] 08:02:00 Test Item Value Reference Range Interpretation [...] S NOT APPLICABLE FOR DIALYSIS PATIEN TS. Business Insight And Analytics Manager ID - TERRI DYiyclwiiaq7216-93-61 07:40:00 Test Item Value Reference Range Interpretation Comments Fibrinogen (test code = 3255-7) 489 mg/dl 225-434 H Lab Interpretation (test code = Abnormal 08511-1) [facility] CenterFIBRINOGEN2020 07:40:00 Test Item Value Reference Range Interpretation Comments FIBRINOGEN LEVEL (BEAKER) (test 489 mg/dl 225-434 H code = 658) [id number] 07:40:00 Test Item Value Reference Range Interpretation [...] 0-0 (BEAKER) (test code = 413) POCT-GLUCOSE [id number] 00:26:00 Test Item Value Reference Range Interpretation Comments POC-GLUCOSE METER 110 mg/dL 70-110 : Notified RN/MD: ([facility]) (test code = TESTED AT [place] [address] 153) [facility], [address]: Business Insight And Analytics Manager/Techni gretel ID = [id number] for CHRIS PEREZ POCT-GLUCOSE [id number] 18:22:00 Test Item Value Reference Range Interpretation Comments POC-GLUCOSE METER 127 mg/dL 70-110 H : TESTED A T [facility] 6720 ([facility]) (test code = [facility], 153) [address]: Business Insight And Analytics Manager/Techni gretel ID = [id number] for RADHA DE LOS SANTOS POCT-GLUCOSE [id number] 12:25:00 Test Item Value Reference Range Interpretation Comments POC-GLUCOSE METER 171 mg/dL 70-110 H : TESTED A T [facility] 6720 ([facility]) (test code = [facility], 153) [address]: Business Insight And Analytics Manager/Techni gretel ID = [id number] for RADHA DE LOS SANTOS [id number] 04:17:00 Test Item Value Reference Range Interpretation Comments PHOSPHORUS (BEAKER) (test code = 2.0 mg/dL 2.3-4.7 L 604) Business Insight And Analytics Manager ID Ross SARAH [id number] 04:17:00 Test Item Value Reference Range Interpretation Comments MAGNESIUM (BEAKER) (test code = 1.6 mg/dL 1.6-2.6 627) Business Insight And Analytics Manager ID - KEARA WBASIC METABOLIC [id number] 04:17:00 Test Item Value Reference Range Interpretation [...] S NOT APPLICABLE FOR DIALYSIS PATIEN TS. Business Insight And Analytics Manager ID Ross SARAH WCBC (HEMOGRAM ONLY)2019-05-18 03:55:00 [...] 0-0 (BEAKER) (test code = 413) POCT-GLUCOSE [id number] 18:43:00 Test Item Value Reference Range Interpretation Comments POC-GLUCOSE METER 139 mg/dL 70-110 H : [facility] (test code = HUMBERTO Mackenzie [facility], 1538) [address]: Business Insight And Analytics Manager/Techni gretel ID = [id number] for RADHA DE LOS SANTOS [place] Carotid Artery Stent Placement w/[id number] 15:10:00Interface, External Ris In - 05/17/2019 3:32 [...] guidance and strict sterile technique a 6 St Helenian shuttle sheath was inserted through the right [...] internal carotid artery with severe stenosis of wociekhimmpcf12%. There is poor delayed antegrade flow distal [...] of approximately 70%. A distal protective device (EmbItsOn) was gently navigated through the stenotic segment [...] platelet aggregation, or dissection. Intracranially there is mosque of good ante grade flow with no [...] MDReport Verified Date/Time: 05/17/2019 15:10:42 Reading Location: [facility] Y018 Neuro Angio Reading Room Electronicallysigned by: KHAI CARRASCO MD on 05/17/2019 03:10 [facility] ST[facility] W [id number] 15:10:00Reason for exam:->left carotid stenosisFINAL REPORT Date [...] guidance and strict sterile technique a 6 St Helenian shuttle sheath was inserted through the right [...] of approximately 70%. A distal protective device (EmbItsOn) was gently navigated through the stenotic segment [...] platelet aggregation, or dissection. Intracranially there is mosque of good antegrade flow [...] MDReport Verified Date/Time: 05/17/2019 15:10:42 Reading Location: [facility] [id number] Neuro Angio Reading Room Carotid doppler [id number] 13:06:24Ejection [facility]ractionSPORTNEUF [facility] ECHO HEARTLAB MKCKESSON CPACSRight Impression1. [...] of Study 05/16/2019 Age 79 Visit Number [id number] Gender Female Accession Number [id number] Date of 1940 Referring SHALONDA BENNETT Room Number 7518 Physician Mail Handler Assistant Pramod Pizarro Interpreting Tonya Burleson, T Physician ProcedureType of Stud y: Cerebral: Carotid, CAROTID DOPPLER, BILATERAL. Indications for Study:Carotid stenosis .Patient Status:Routine.Study Location:Portable.Technical Quality:Adequate visualization. - Results were reported to:[email or web address].Risk FactorsHistory of Disease+---------+----+ +!Diagnosis!Date!Comments ! +---------+----+ +!Oth [...] + + - Additional Measurements:ICAPSV/CCAPSV 5.8.ICAEDV/CCAEDV 19.78.[facility] [id number] 12:40:00 Test Item Value Reference Range Interpretation Comments POC-GLUCOSE METER 130 mg/dL 70-110 H : TESTED A Jose [facility] 6720 (GIFTY) (test code = [place]ERTO [place], 6640) [address]: Business Insight And Analytics Manager/Techni gretel ID = [id number] for RADHA DE LOS SANTOS Prothrombin time/[id number] 11:08:00 Test Item Value Reference Range Interpretation [...] valves. Lab Interpretation Normal (test code = 65109-3) [facility] CenterPROTHROMBIN [facility]/[id number] 11:08:00 Test Item Value Reference Range Interpretation [...] INR is2.5-3.5 for patients wiht mechanical heart valves.[id number] 09:19:00 Test Item Value Reference Range Interpretation Comments PTT (test code = 00307-1) 37.6 22.5- 36.0 seconds H Lab Interpretation (test code = Abnormal 21345-7) [facility] CenterAPTT2020-02-05 09:19:00 Test Item Value Reference Range Interpretation Comments PARTIAL THROMBOPLASTIN TIME 37.6 seconds 22.5-36.0 H (BEAKER) (test code = 760) POCT-GLUCOSE [id number] 06:49:00 Test Item Value Reference Range Interpretation Comments POC-GLUCOSE METER 110 mg/dL 70-110 : TESTED A T [facility] 6720 (BEAKER) (test code = HUMBERTO [place], 1538) [address]: Business Insight And Analytics Manager/Techni gretel ID = [id number] for MASON PHELPS BASIC METABOLIC [id number] 05:59:00 Test Item Value Reference Range Interpretation [...] S NOT APPLICABLE FOR DIALYSIS PATIEN TS. Business Insight And Analytics Manager ID - TERRI [id number] 05:35:00 Test Item Value Reference Range Interpretation Comments PARTIAL THROMBOPLASTIN TIME 38.3 seconds 22.5-36.0 H (BEAKER) (test code = 760) Prior to initiating heparinPOCT-P2Y12 PLATELET [id number] 05:34:00 Test Item Value Reference Range Interpretation Comments POC-P2Y12 PLATELET AGG (BEAKER) (test 230 PRU code = 2303) RANGE INFORMATION: PRU reference range is 194-418. Post Drug Results: Lower PRU levels are associated with expected antiplatelet effect. Values may be below the stated reference range above. The post-drug PRU values reported in the [employer]Now P2Y12 package insert are 18-435.POCT-ASPIRIN PLATELET [id number] 05:34:00 Test Item Value Reference Range Interpretation Comments POC-ASPIRIN PLATELET AGG (BEAKER) 564 ARU (test code = 2302) RANGE INFORMATION: 350-549 ARU Therapeutic range for platelet function. 550-700 ARU Non-Therapeutic range for platelet function.[id number] 05:34:00 Test Item Value Reference Range Interpretation [...] WBC 0-0 (BEAKER) (test code = 413) [id number] 02:03:00 Test Item Value Reference Range Interpretation Comments PARTIAL THROMBOPLASTIN TIME 35.8 seconds 22.5-36.0 (BEAKER) (test code = 760) 6 hours after starting heparin infusion and as indicated per sliding scalePOCT- GLUCOSE [id number] 00:00:00 Test Item Value Reference Range Interpretation Comments POC-GLUCOSE METER 109 mg/dL 70-110 : TESTED A T [facility] 6720 (BEAKER) (test code = [place]ERTO [place], 1538) [address]: Business Insight And Analytics Manager/Techni gretel ID = [id number] for MASON PHELPS POCT-GLUCOSE [id number] 18:48:00 Test Item Value Reference Range Interpretation Comments POC-GLUCOSE METER 148 mg/dL 70-110 H : Notified RN/MD: (GIFTY) (test code = TESTED AT [facility] 6720 1538) CARLOS ALBERTO [facility], [address]: Business Insight And Analytics Manager/Techni gretel ID = [id number] for MIKE MEJIASTEWART DEVLIN, ANGIOGRAM, [id number] 16:45:00Reason for exam:->basilar tip aneurysmFINAL REPORT Date [...] guidance and strict sterile technique a 4 St Helenian femoral sheath was inserted into the right radial artery. Through the sheath a 4 St Helenian Weaver catheter was then advanced over the [...] MDReport Verified Date/Time: 05/16/2019 16:45:20 Reading Location: [facility] Y018 Neuro Angio Reading Room NV cerebral 4 vessel [id number] 16:45:00Interface, External Ris In - 05/16/2019 4:47 [...] guidance and strict sterile technique a 4 St Helenian femoral sheath was inserted into the right [...] Carrasco MDReport Verified Date/Time: 05/16/2019 16:45:20Reading Location: [place] [address] Neuro Angio Reading Room [facility] [id number] 13:41:00 Test Item Value Reference Range Interpretation Comments POC-GLUCOSE METER 120 mg/dL 70-110 H : TESTED A T [facility] 6720 (BEAKER) (test code = [place]UM[place]ERTO [place], 1538) [address]: Business Insight And Analytics Manager/Techni gretel ID = [id number] for ESVIN LAMBERT [id number] 09:24:00 Test Item Value Reference Range Interpretation [...] WBC 0-0 (BEAKER) (test code = 413) [id number] 03:01:00 Test Item Value Reference Range Interpretation [...] heart valves.Prior to initiating heparinPrior to initiating [id number] 03:01:00 Test Item Value Reference Range Interpretation Comments PARTIAL THROMBOPLASTIN TIME 32.2 seconds 22.5-36.0 (BEAKER) (test code = 760) BASIC METABOLIC [id number] 02:58:00 Test Item Value Reference Range Interpretation [...] S NOT APPLICABLE FOR DIALYSIS PATIEN TS. Business Insight And Analytics Manager ID - TERRI MPlatelet [id number] 02:45:00 Test Item Value Reference Range Interpretation Comments Platelets (test code = 231 150- 450 K/CU MM 777-3) JACI (test code = JACI) Business Insight And Analytics Manager ID - [id number] Lab Interpretation (test Normal code = 71362-3) [facility] CenterPLATE[facility] [id number] 02:45:00 Test Item Value Reference Range Interpretation Comments PLATELET COUNT (BEAKER) (test 231 K/CU MM 150-450 code = 756) Business Insight And Analytics Manager ID - [id number], CEREBRAL PERFUSION [id number] 01:22:00FINAL REPORT CT cerebral perfusion analysis. Comparison: [...] Signed: Fabiano Montoya Verified Date/Time: 05/16/2019 01:22:48 [facility] brain cerebral perfusion analysis 2019-05-16 01:22:00Interface, External [...] Fabiano Montoya MDReport Verified Date/Time: 05/16/2019 01:22:48 [facility] CTANGIO [id number] 01:09:00FINAL REPORT EXAM: CT, CT Angio, Brain. [...] Signed: Fabiano Montoya Verified Date/Time: 05/16/2019 01:09:25 [facility], CAROTID, [id number] 01:09:00FINAL REPORT EXAM: CT, CT Angio, Brain. [...] Fabiano Montoya MDReport Verified Date/Time: 05/16/2019 01:09:25 [facility] [id number] 01:09:00Interface, External Ris In - 05/16/2019 1:12 [...] approximately 1:05 AM 05/16/2019. Signed: Fabiano Montoya [facility] Verified Date/Time: 05/16/2019 01:09:25 [facility] CenterCTA [id number] 01:09:00Interface, External Ris In - 05/16/2019 1:12 [...] at approximately 1:05 AM 05/16/2019. Signed: [facility]oyathe [facility] Verified Date/Time: 05/16/2019 01:09:25 [facility]CT, BRAIN/STROKE [id number] 23:34:00FINAL REPORT EXAM: CT head without contrast. [...] Signed: Fabiano Montoya Verified Date/Time: 05/15/2019 23:34:22 [facility] brain/stroke test [id number] 23:34:00Interface, External Ris In - 05/15/2019 11:36 [...] 05/15/2019. Signed: Fabiano MontoyaVerified Date/Time: 05/15/2019 23:34:22 [facility] POCT-GLUCOSE [id number] 20:57:00 Test Item Value Reference Range Interpretation Comments POC-GLUCOSE METER 119 mg/dL 70-110 H : TESTED A T [facility] 6720 (BEAKER) (test code = HUMBERTO Mackenzie [facility], 1538) [address]: Business Insight And Analytics Manager/Techni gretel ID = [id number] for CARLINE HARDING PROTHROMBIN TIME/[id number] 19:47:00 Test Item Value Reference Range Interpretation [...] is2.5-3.5 for patients wiht mechanical heart valves.POCT-GLUCOSE [id number] 17:51:00 Test Item Value Reference Range Interpretation Comments POC-GLUCOSE METER 125 mg/dL 70-110 H : TESTED A T [facility] 6720 (BEAKER) (test code = HUMBERTO Mackenzie [facility], 1538) [address]: Business Insight And Analytics Manager/Techni gretel ID = [id number] for BR OWN, MARIA DEL CARMEN POCT-GLUCOSE [id number] 11:55:00 Test Item Value Reference Range Interpretation Comments POC-GLUCOSE METER 169 mg/dL 70-110 H : TESTED A T [facility] 6720 (BEAKER) (test code = HUMBERTO Mackenzie [facility], 1538) [address]: Business Insight And Analytics Manager/Techni gretel ID = [id number] for BR OWN, MARIA DEL CARMEN Hemoglobin [id number] 10:46:00 Test Item Value Reference Range Interpretation Comments Hemoglobin A1C (test code = 4548-4) 5.8 % 4.3-6.1 Lab Interpretation (test code = Normal 86390-0) [facility] CenterHEMOGLOBIN [id number] 10:46:00 Test Item Value Reference Range Interpretation Comments HEMOGLOBIN A1C (BEAKER) (test code = 5.8 % 4.3-6.1 368) POCT-GLUCOSE [id number] 08:50:00 Test Item Value Reference Range Interpretation Comments POC-GLUCOSE METER 134 mg/dL 70-110 H : TESTED A T [facility] 6720 (BEAKER) (test code = HUMBERTO Mackenzie [place], 1538) [address]: Business Insight And Analytics Manager/Techni gretel ID = [id number] for BR OWN, MARIA DEL CARMEN Vitamin B12 and [id number] 07:44:00 Test Item Value Reference Range Interpretation Comments Vitamin B12 (test code = 472 pg/mL 971-433 7591-9) Folate (test code = 19.4 ng/mL >=7.0 2284-8) JACI (test code = JACI) Business Insight And Analytics Manager ID Ross WESTFALL F Lab Interpretation (test Normal code = 67789-4) [facility] CenterVITAMIN B12 AND [id number] 07:44:00 Test Item Value Reference Range Interpretation Comments VITAMIN B12 (BEAKER) (test code = 472 pg/mL 213-816 774) FOLATE (BEAKER) (test code = 362) 19.4 ng/mL >=7.0 Business Insight And Analytics Manager ID Ross WESTFALL FPOCT-GLUCOSE [id number] 06:57:00 Test Item Value Reference Range Interpretation Comments POC-GLUCOSE METER 114 mg/dL 70-110 H : TESTED A T [facility] 6720 (BEAKER) (test code = HUMBERTO [place], 1538) [address]: Business Insight And Analytics Manager/Techni gretel ID = [id number] for DE NNIS, MALIHA Lipid [id number] 06:53:00 Test Item Value Reference Range Interpretation Comments Triglycerides (test 341 mg/dL code = 2571-8) Cholesterol (test code 199 mg/dL = 2093-3) HDL (test code = 41 mg/dL 5-9) LDL Calculated (test 90 mg/dL code = 97346-5) JACI (test code = JACI) Triglyceride Reference Range: Low Risk <150 Borderline 150-199 High Risk 200-499 Very High Risk >=500 Cholesterol Reference Range: Low Risk <200 Borderline 200-239 High Risk >240 HDL Cholesterol Reference Range: Low Risk >=60 High Risk <40 LDL Cholesterol Reference Range: Optimal <100 Near Optimal 100-129 Borderline 130-159 High 160-189 Very High >=190 Business Insight And Analytics Manager ID - MARITZA Pedersen [facility] CenterLIPID [id number] 06:53:00 Test Item Value Reference Range Interpretation [...] Borderline 130-159 High 160-189 Very High >=190 Business Insight And Analytics Manager ID - PIAYALBASIC METABOLIC [id number] 06:53:00 Test Item Value Reference Range Interpretation [...] S NOT APPLICABLE FOR DIALYSIS PATIEN TS. Business Insight And Analytics Manager ID - PIAYA LCBC (HEMOGRAM ONLY)2019-05-15 06:29:00 [...] (test code = 413) MR, BRAIN, WITHOUT [id number] 04:06:00FINAL REPORT EXAM: MR, BRAIN, WITHOUT CONTRAST [...] Date/Time: 05/15/2019 04:06:56 MR brain without IV [id number] 04:06:00Interface, External Ris In - 05/15/2019 4:10 [...] Denise Rosario MDRjanineort Verified Date/Time: 05/15/2019 04:06:56 [facility] 2019-05-14 21:18:00 Test Item Value Reference Range Interpretation Comments POC-GLUCOSE METER 95 mg/dL 70-110 : TESTED A T [facility] 6720 (BEAKER) (test code = [place]ERTO [place], 1538) [address]: Business Insight And Analytics Manager/Techni gretel ID = [id number] for MALIHA COWAN BASIC METABOLIC [id number] 14:37:00 Test Item Value Reference Range Interpretation [...] APPLICABLE FOR DIALYSIS PATIEN TS. BASIC METABOLIC [id number] 13:34:00 Test Item Value Reference Range Interpretation [...] S NOT APPLICABLE FOR DIALYSIS PATIEN TS. [id number] 12:49:00 Test Item Value Reference Range Interpretation [...] mechanical heart valves.CBC W/PLT COUNT & AUTO [id number] 12:48:00 Test Item Value Reference Range Interpretation [...] % 0-1 PERCENT (BEAKER) (test code = 3155)
[2020-03-18 12:40] LABS: Potassium 3.6 mmol/L (3.5-5.1)
--- NOTE | 2020-03-18 13:31 | RAD REPORT ---
EXAM DESCRIPTION: Giovanny Single View03/18/2020 1:16 pm CLINICAL HISTORY: Chest pain COMPARISON: January 2020 FINDINGS: The lungs appear clear of acute infiltrate. The heart is normal size IMPRESSION: No acute abnormalities displayed
[2020-03-18 14:41] LABS: Urine Bacteria 20-50 /HPF (<20); Urine Mucus 2+ /HPF (NONE SEEN)
[2020-03-18 14:58] LABS: Urine Blood NEGATIVE (NEG); Urine Glucose NEGATIVE (NEG); Urine Protein 2+ (NEG); Urine Specific Gravity 1.015 (1.005-1.030); Urine pH 5.5 (5.0-7.0)
[2020-03-18] MEDS ORDERED: CEFTRIAXONE/SWI 1gm 1 GM/10 ML SYR ONE (14:59)
--- NOTE | 2020-03-18 15:08 | EDPHYS ---
Physician Documentation [facility] Name: Bharati Lancaster Age: 80 yrs Sex: Female : 1940 Arrival Date: 03/18/2020 Time: 11:45 Bed 2 Private MD: ED Physician Brandon Shaver HPI: 03/18 14:16 This 80 yrs old Female presents to ER via EMS with complaints of General rn Weakness. 14:16 Reports generalized weakness and fatigue for 3 days now, not eating/drinking, no rn energy, no fever/vomiting/diarrhea. No blood in stool. No chest pain/sob. Reports unable to stand due to weakness.. Onset: The symptoms/episode began/occurred 3 day(s) ago. Severity of symptoms: At their worst the symptoms were moderate in the emergency department the symptoms are unchanged. It is unknown whether or not the patient has had similar symptoms in the past. The patient has not recently seen a physician. Historical: - Allergies: 11:48 BACLOFEN; bp 11:48 Codeine; bp 11:48 Darvocet-N 100; bp 11:48 Demerol; bp 11:48 Hydrocodone-Acetaminophen; bp 11:48 Morphine; bp 11:48 plastic tape; bp - Home Meds: 11:52 atorvastatin 80 mg Oral tab 1 tab once daily [Active]; allopurinol 100 mg Oral tab 1 bp tab once daily [Active]; BRILINTA 90 mg Oral tab 1 tab 2 times per day [Active]; clonidine HCl 0.3 mg Oral tab [Active]; Edarbi 80 mg Oral tab 1 tab once daily [Active]; gabapentin 300 mg Oral cap 1 cap 3 times per day [Active]; glimepiride 2 mg Oral tab 1 tab once daily [Active]; hydralazine 100 mg Oral tab 2 times per day [Active]; levothyroxine 50 mcg tab 1 tab once daily [Active]; oxybutynin chloride 5 mg Oral tab 1 tab 2 times per day [Active]; Xarelto 15 mg Oral tab [Active]; - PMHx: 11:48 Atrial Fib; Cervical radicular pain; CHF; chronic kidney disease; Degenative join bp disease; Diabetes - NIDDM; DVT; GERD; Gout; Hyperlipidemia; Hypertension; Hypothyroidism; - Immunization history:: Adult Immunizations unknown, Adult Immunizations unknown. - Social history:: Smoking status: Patient denies any tobacco usage or history of. Smoking status: Patient denies any tobacco usage or history of. - Family history:: not pertinent. - Hospitalizations: : No recent hospitalization is reported. ROS: 14:16 Constitutional: Negative for fever, chills, and weight loss, Eyes: Negative for injury, rn pain, redness, and discharge, Neck: Negative for injury, pain, and swelling, Cardiovascular: Negative for chest pain, palpitations, and edema, Respiratory: Negative for shortness of breath, cough, wheezing, and pleuritic chest pain, Abdomen/GI: Negative for abdominal pain, nausea, vomiting, diarrhea, and constipation, Back: Negative for injury and pain, : Negative for injury, bleeding, discharge, and swelling, MS/Extremity: Negative for injury and deformity, Skin: Negative for injury, rash, and discoloration, Neuro: + generalized weakness Exam: 12:24 ECG was reviewed by the Attending Physician. rn 14:16 Constitutional: This is a well developed, well nourished patient who is awake, alert, rn and in no acute distress. Head/Face: Normocephalic, atraumatic. ENT: dry MM with thick secretions Cardiovascular: Tachycardic, regular Respiratory: No increased work of breathing, no retractions or nasal flaring. Abdomen/GI: soft, non-tender Skin: Warm, dry MS/ Extremity: Pulses equal, no cyanosis. + bilateral edema Neuro: Awake and alert, GCS 15, oriented to person, place, time, and situation. Motor strength 4/5 in all extremities. Sensory grossly intact. Vital Signs: 11:45 BP 136 / 75; Pulse 118; Resp 19; Temp 98.7; Pulse Ox 98% ; jl7 15:05 BP 146 / 55; Pulse 115; Resp 19; Pulse Ox 97% ; jl7 15:45 BP 129 / 59; Pulse 117; Resp 18; Pulse Ox 97% ; bp MDM: 11:46 Patient medically screened. rn 14:16 Differential Diagnosis dehydration, acute on chronic kidney failure, UTI, COVID. Data rn reviewed: vital signs, nurses notes, lab test result(s), radiologic studies, plain films, and as a result, I will admit patient. Counseling: I had a detailed discussion with the patient and/or guardian regarding: the historical points, exam findings, and any diagnostic results supporting the discharge/admit diagnosis, lab results, radiology results, the need for further work-up and treatment in the hospital. Response to treatment: the patient's symptoms have mildly improved after treatment, and as a result, I will admit patient. Admission orders: after a detailed discussion of the patient's condition and case, the admit orders are written by me. ED course: Pt with acute on chronic renal failure, will admit to [facility] for further care and evaluation. Urine pending, but possible UTI given fever and elevated WBC. . 03/18 11:48 Order name: CBC with Diff; Complete Time: 12:58 rn 03/18 11:48 Order name: Basic Metabolic Panel; Complete Time: 12:58 rn 03/18 11:48 Order name: Urine Culture 03/18 11:48 Order name: Urine Microscopic Only 03/18 11:48 Order name: Procalcitonin; Complete Time: 14:15 rn 03/18 11:48 Order name: Lactate; Complete Time: 12:58 rn 03/18 11:48 Order name: COVID-19 03/18 11:48 Order name: XRAY Chest (1 view) 03/18 11:48 Order name: Blood Culture Adult (2) 03/18 11:48 Order name: Flu; Complete Time: 12:58 03/18 13:01 Order name: Chest Single View; Complete Time: 14:15 EDVA 03/18 14:37 Order name: Urine Dipstick--Ancillary (enter results) 03/18 14:59 Order name: Urine Dipstick-Ancillary EDVA 03/18 11:48 Order name: IV Start; Complete Time: 12:18 rn 03/18 11:48 Order name: Urine Dipstick-Ancillary (obtain specimen); Complete Time: 14:27 rn 03/18 12:29 Order name: EKG; Complete Time: 14:47 rn 03/18 12:29 Order name: EKG - Nurse/Tech; Complete Time: 12:29 rn EC:24 Rate is 111 beats/min. Rhythm is regular. Left axis deviation noted. QRS is positive in rn lead I and negative in lead aVF. NM interval is normal. QRS interval is prolonged at 144 msec. QT interval is normal. No Q waves. T waves are Inverted in leads V1, V2, V3. No ST changes noted. Clinical impression: Sinus tachycardia. Interpreted by me. Reviewed by me. Administered Medications: 12:15 Drug: NS 0.9% 500 ml Route: IV; Rate: bolus; Site: right antecubital; bp 15:27 Follow up: IV Status: Completed infusion; IV Intake: 500ml bp 14:30 Drug: Rocephin 1 grams Route: IV; Rate: calculated rate; Site: right antecubital; bp 15:28 Follow up: IV Status: Completed infusion; IV Intake: 50ml bp 14:30 Drug: NS 0.9% 500 ml Route: IV; Rate: bolus; Site: right antecubital; bp 15:46 Follow up: IV Status: Completed infusion; IV Intake: 500ml bp Disposition: 03/18/20 14:24 Hospitalization ordered by Casa Morton for Inpatient Admission. Preliminary diagnosis are Acute kidney failure, Dehydration, Weakness, Urinary tract infection, site not specified. - Bed requested for Telemetry/MedSurg (Inpatient). - Status is Inpatient Admission. bp - Condition is Stable. - Problem is new. - Symptoms have improved. Signatures: Dispatcher [employer] EDMS Renetta Wilburn Roman, MD MD rn Leal, Jahala, RN RN jlPramod Michaels RN RN bp Corrections: (The following items were deleted from the chart) 14:29 14:24 Hospitalization Ordered by [facility]icks[facility] Tron[facility] for Inpatient Admission. Preliminary rn diagnosis is Acute kidney failure; Dehydration; Weakness; Urinary tract infection, site not specified. Bed requested for Telemetry/MedSurg (Inpatient). Status is Inpatient Admission. Condition is Stable. Problem is new. Symptoms have improved. rn 15:24 14:29 03/18/2020 14:24 Hospitalization Ordered by Casa Morton MD for Inpatient bd Admission. Preliminary diagnosis is Acute kidney failure; Dehydration; Weakness; Urinary tract infection, site not specified. Bed requested for Telemetry/MedSurg (Inpatient). Status is Inpatient Admission. Condition is Stable. Problem is new. Symptoms have improved. rn 15:47 15:24 03/18/2020 14:24 Hospitalization Ordered by Casa Morton MD for Inpatient bp Admission. Preliminary diagnosis is Acute kidney failure; Dehydration; Weakness; Urinary tract infection, site not specified. Bed requested for Telemetry/MedSurg (Inpatient). Status is Inpatient Admission. Condition is Stable. Problem is new. Symptoms have improved. bd
--- NOTE | 2020-03-18 15:08 | ER ---
Nurse's Notes [facility] Name: Bharati Lancaster Age: 80 yrs Sex: Female : 1940 Arrival Date: 03/18/2020 Time: 11:45 Bed 2 Private MD: Diagnosis: Acute kidney failure;Dehydration;Weakness;Urinary tract infection, site not specified Presentation: 03/18 11:45 Chief complaint: EMS states: Toned out for general weakness, left hand tremors, BGL 84, jl7 hasn't been feeling well for a few days now. Coronavirus screen: Client denies travel out of the [place] in the last 14 days. At this time, the client does not indicate any symptoms associated with coronavirus-19. Ebola Screen: No symptoms or risks identified at this time. Initial Sepsis Screen: Does the patient meet any 2 criteria? No. Patient's initial sepsis screen is negative. Does the patient have a suspected source of infection? No. Patient's initial sepsis screen is negative. Risk Assessment: Do you want to hurt yourself or someone else? Patient reports no desire to harm self or others. Onset of symptoms was March 18, 2020. Care prior to arrival: IV initiated. 20 GA, in the right antecubital area, Glucose check: 84. Transition of care: patient was not received from another setting of care. 11:45 Method Of Arrival: EMS [facility] 11:45 Acuity: GONZALEZ 2 jl7 Triage Assessment: 11:48 General: Appears in no apparent distress. uncomfortable, Behavior is cooperative, jl7 anxious. Pain: Complains of pain in right knee Pain began years ago. Is continuous. EENT: Oral mucosa is dry. Neuro: Level of Consciousness is awake, alert, obeys commands, Oriented to person, place, time, situation. Cardiovascular: Patient's skin is warm and dry. Rhythm is regular. Respiratory: Airway is patent Respiratory effort is even, unlabored, Respiratory pattern is regular, symmetrical. GI: Abdomen is round non-distended, Abd is soft and non tender X 4 quads. Patient currently denies diarrhea, nausea, vomiting. : No signs and/or symptoms were reported regarding the genitourinary system. Derm: Skin is pink, warm \T\ dry. Musculoskeletal: Reports pain in right knee. Historical: - Allergies: 11:48 BACLOFEN; bp 11:48 Codeine; bp 11:48 Darvocet-N 100; bp 11:48 Demerol; bp 11:48 Hydrocodone-Acetaminophen; bp 11:48 Morphine; bp 11:48 plastic tape; bp - Home Meds: 11:52 atorvastatin 80 mg Oral tab 1 tab once daily [Active]; allopurinol 100 mg Oral tab 1 bp tab once daily [Active]; BRILINTA 90 mg Oral tab 1 tab 2 times per day [Active]; clonidine HCl 0.3 mg Oral tab [Active]; Edarbi 80 mg Oral tab 1 tab once daily [Active]; gabapentin 300 mg Oral cap 1 cap 3 times per day [Active]; glimepiride 2 mg Oral tab 1 tab once daily [Active]; hydralazine 100 mg Oral tab 2 times per day [Active]; levothyroxine 50 mcg tab 1 tab once daily [Active]; oxybutynin chloride 5 mg Oral tab 1 tab 2 times per day [Active]; Xarelto 15 mg Oral tab [Active]; - PMHx: 11:48 Atrial Fib; Cervical radicular pain; CHF; chronic kidney disease; Degenative join bp disease; Diabetes - NIDDM; DVT; GERD; Gout; Hyperlipidemia; Hypertension; Hypothyroidism; - Immunization history:: Adult Immunizations unknown, Adult Immunizations unknown. - Social history:: Smoking status: Patient denies any tobacco usage or history of. Smoking status: Patient denies any tobacco usage or history of. - Family history:: not pertinent. - Hospitalizations: : No recent hospitalization is reported. Screenin:50 Abuse screen: Denies threats or abuse. Denies injuries from another. Nutritional jl7 screening: No deficits noted. Tuberculosis screening: No symptoms or risk factors identified. Fall Risk IV access (20 points). Assessment: 11:50 General: SEE TRIAGE NOTE. bp 13:30 Reassessment: No changes from previously documented assessment. Patient and/or family bp updated on plan of care and expected duration. Pain level reassessed. UOP PENDING. REMAINS ST ON MONITOR. 14:30 Reassessment: Patient appears in no apparent distress at this time. No changes from bp previously documented assessment. Patient and/or family updated on plan of care and expected duration. Pain level reassessed. ADMIT INITIATED. 15:41 Reassessment: Patient appears in no apparent distress at this time. No changes from bp previously documented assessment. ADMIT COMPLETE, BED ASSIGNED. Vital Signs: 11:45 BP 136 / 75; Pulse 118; Resp 19; Temp 98.7; Pulse Ox 98% ; jl7 15:05 BP 146 / 55; Pulse 115; Resp 19; Pulse Ox 97% ; jl7 15:45 BP 129 / 59; Pulse 117; Resp 18; Pulse Ox 97% ; bp ED Course: 11:45 Patient arrived in ED. jl7 11:45 Arm band placed on right wrist. jl7 11:46 Pramod Lee, RN is Primary Nurse. bp 11:46 Brandon Shaver MD is Attending Physician. rn 11:48 Triage completed. jl7 11:50 Patient has correct armband on for positive identification. Placed in gown. Bed in low jl7 position. Call light in reach. Side rails up X2. chemical educator on. Pulse ox on. NIBP on. Warm blanket given. 11:53 Maintain EMS IV. Dressing intact. Good blood return noted. Site clean \T\ dry. Gauge \T\ bp site: 20 G RIGHT AC. 12:15 COVID swab sent to lab. Flu and/or RSV swab sent to lab. jl7 12:30 EKG done, by ED staff, reviewed by Brandon Shaver MD. em1 13:17 Chest Single View In Process Unspecified. EDMS 14:23 Dickson Troncoso is Hospitalizing Provider. rn 14:29 Casa Morton MD is Hospitalizing Provider. rn 15:27 No provider procedures requiring assistance completed. Patient admitted, IV remains in bp place. Administered Medications: 12:15 Drug: NS 0.9% 500 ml Route: IV; Rate: bolus; Site: right antecubital; bp 15:27 Follow up: IV Status: Completed infusion; IV Intake: 500ml bp 14:30 Drug: Rocephin 1 grams Route: IV; Rate: calculated rate; Site: right antecubital; bp 15:28 Follow up: IV Status: Completed infusion; IV Intake: 50ml bp 14:30 Drug: NS 0.9% 500 ml Route: IV; Rate: bolus; Site: right antecubital; bp 15:46 Follow up: IV Status: Completed infusion; IV Intake: 500ml bp Intake: 15:27 IV: 500ml; Total: 500ml. bp 15:28 IV: 50ml; Total: 550ml. bp 15:46 IV: 500ml; Total: 1050ml. bp Outcome: 14:24 Decision to Hospitalize by Provider. rn 15:42 Admitted to Tele accompanied by tech, via wheelchair, room 220, with chart, Report bp called to JESSIE CM 15:42 Condition: stable 15:42 Instructed on the need for admit. 15:47 Patient left the ED. bp Signatures: Dispatcher [employer] EDMS Brandon Shaver MD MD rn John Tolliver em1 Ga Valderrama RN RN jl7 Pramod Lee RN RN bp
[2020-03-18 16:47] VITALS: BMI 29.9
[2020-03-18] MEDS: NA CHLORIDE 0.9% 1,000 ML IV SCH (17:14)
[2020-03-18] MEDS: MELATONIN 5 MG TABLET PO SCH (21:00)
[2020-03-18] MEDS ORDERED: HOME MED 1 EA UNK (Hydralazine Hcl [Apresoline] 100 MG) PO SCH (21:00)
[2020-03-18] MEDS ORDERED: HOME MED 1 EA UNK (Melatonin [Melatonin] 10 MG) PO SCH (21:00)
[2020-03-18] MEDS: TICAGRELOR 90 MG TABLET PO SCH (21:12)
[2020-03-18] MEDS: HYDRALAZINE HCL 25 MG TABLET PO SCH (21:12)
[2020-03-18] MEDS: CLONIDINE HCL 0.3 MG TAB PO SCH (21:12)
[2020-03-18] MEDS: OXYBUTYNIN CHLORIDE 5 MG TAB PO SCH (21:12)
[2020-03-18] MEDS: APIXABAN 2.5 MG TABLET PO SCH (21:13)
--- NOTE | 2020-03-18 21:35 | P.HP ---
Certification for Inpatient Patient admitted to: Inpatient Practitioner: I am a practitioner with admitting privileges, knowledge of patient current condition, hospital course, and medical plan of care. Services: Services provided to patient in accordance with Admission requirements found in Title 42 Section 412.3 of the Code of Federal Regulations Patient History Date of Service: 03/18/20 Reason for admission: GENERALLY WEAK, NOT ABLE TO WALK History of Present Illness: MS. BRAVO HAS MANY MEDICAL ISSUES INCLUDING, DM, UNCONTROLLED HTN, CKD 3, DJD, OBESITY,BACK PAIN. RECENT BASILAR ARTERY STENOSIS STENT. RECENT BRAIN ANEURYSM COIL INSERTION BY KHAI RODRIGEZ. FAMILY CALLED AND SAID THAT SHE IS VERY WEAK, NOT ABLE TO STAND UP ANY LONGER. Allergies codeine phosphate [From Tylenol-Codeine #3] Allergy (Mild, Verified 09/07/19 03:31) Rash morphine Allergy (Mild, Verified 09/07/19 03:31) Hives/Rash acetaminophen [From Darvocet-N 100] Allergy (Verified 09/07/19 03:31) Rash codeine Allergy (Verified 09/07/19 03:31) Rash meperidine HCl [From Demerol] Allergy (Verified 09/07/19 03:31) Unknown propoxyphene napsylate [From Darvocet-N 100] Allergy (Verified 09/07/19 03:31) Nausea/Vomiting BACLOFEN Allergy (Severe, Uncoded 09/07/19 03:31) Unknown Hydrocodone-Acetaminophen Allergy (Severe, Uncoded 09/07/19 03:31) Itching/Hives/Rash Tape Allergy (Severe, Uncoded 09/07/19 03:31) Rash plastic Allergy (Uncoded 09/07/19 03:31) Unknown Home Medications: Allopurinol 100 mg PO [id number] 02/01/20 Atorvastatin Calcium [Lipitor] 80 mg PO [id number] 02/01/20 Azilsartan Medoxomil [Edarbi] 1 tab PO [id number] 02/01/20 Clonidine HCl [Catapres] 1 tab PO TID 02/01/20 Gabapentin 300 mg PO TID 02/01/20 Glimepiride 2 mg PO [id number] 02/01/20 Hydralazine HCl [Apresoline] 100 mg PO TID 02/01/20 Levothyroxine [Synthroid] 50 mcg PO [id number] 02/01/20 Melatonin 10 mg PO BEDTIME 02/01/20 Oxybutynin Chloride 5 mg PO BID 02/01/20 Ticagrelor [Brilinta*] 1 tab PO BID 02/01/20 Vit C/E/Zn/Coppr/Lutein/Zeaxan [Preservision Areds 2 Softgel] 1 each PO BID 02/01/20 - Past Medical/Surgical History Has patient received pneumonia vaccine in the past: No Diabetic: Yes -: hypertension -: hyperlipidemia -: hypothyroid -: gout -: appendectomy -: cholecystectomy -: DVT L leg 30 yrs ago -: DM 2018 oral/diet controlled -: strokes 05/2018 -: mesh "in the middle of her head" anurysm -: neck stents bilat -: jaqueline -: appe -: knee surg x2 -: wrist surg x3 -: surg on chin, not sure what it was -: L Knee replacement -: appendectomy -: Cholecystectomy - Family History Brother -: Heart disease, Hypertension, Diabetes, Liver disease, Kidney disease Father -: Lung disease Mother -: Heart disease, Hypertension, Blood disorders - Social History Smoking Status: Former smoker Alcohol use: No CD- Drugs: No Caffeine use: Yes Place of Residence: Home Review of Systems 10-point ROS is otherwise unremarkable General: Weakness, Malaise Eyes: Other ENT: Other (DRY MOUTH) Physical Examination - Vital Signs Temperature: 98.4 F Blood Pressure: 140/62 Pulse: 119 Respirations: 18 Pulse Ox (%): 95 - Physical Exam General: Oriented x3, Mild distress, Other (CLINICALLY DEHYDRATED) HEENT: Atraumatic, PERRLA, Mucous membr. moist/pink, EOMI, Sclerae nonicteric Neck: Supple, 2+ carotid pulse no bruit, No LAD, Without JVD or thyroid abnormality Respiratory: Clear to auscultation bilaterally, Normal air movement Cardiovascular: Regular rate/rhythm, Normal S1 S2 Gastrointestinal: Normal bowel sounds, No tenderness Musculoskeletal: No tenderness Integumentary: No rashes Neurological: Normal gait, Normal speech, Normal strength at 5/5 x4 extr, Normal tone, Normal affect Lymphatics: No axilla or inguinal lymphadenopathy - Studies Laboratory Data (last 24 hrs) 03/18/20 12:15: Sodium 140, Potassium 3.6, BUN 56 H, Creatinine 3.07 H, Glucose 71 L 03/18/20 12:15: WBC 18.6 H, Hgb 9.8 L, Hct 30.9 L, Plt Count 381 Microbiology Data (last 24 hrs): 03/18/20 12:08 Nasopharnyx Influenza Type A Antigen Screen - Final 03/18/20 12:08 Nasopharnyx Influenza Type B Antigen Screen - Final Assessment and Plan - Problems (Diagnosis) (1) Prerenal azotemia Current Visit: Yes Status: Acute Plan: IV HYDRATION SHOULD IMPROVE HER KIDNEYS. CHECK SONOGRAM AND PVR. (2) UTI (urinary tract infection) Current Visit: Yes Status: Acute Plan: IV ROCEPHIN CULTURES ARE PENDING. (3) Diabetes type 2, controlled Current Visit: Yes Status: Chronic Plan: CHECK A1C LDL RESUME MEDS. Qualifiers: Diabetes mellitus mcfp insulin use: without mcfp use Diabetes mellitus complication status: with circulatory complication (4) History of atrial fibrillation Current Visit: Yes Status: Chronic Plan: RESTART GENTLE ANTICOAGUALTION. SHE HAD ANEMIA ON XARELTO. (5) Hypertension Onset Date: 05/20/15 Current Visit: No Status: Chronic Qualifiers: Hypertension type: essential hypertension - Advance Directives Does patient have a Living Will: Yes Does patient have a Durable POA for Healthcare: Yes
[2020-03-19] MEDS: NA CHLORIDE 0.9% 1,000 ML IV SCH ×2 (02:25→07:39)
[2020-03-19] MEDS: LEVOTHYROXINE SOD 0.05 MG TABLET PO SCH (06:00)
[2020-03-19] MEDS ORDERED: GLIMEPIRIDE 2 MG TABLET PO SCH (06:00)
[2020-03-19] MEDS: ATORVASTATIN 80 MG TAB PO SCH (06:00)
[2020-03-19] MEDS: allopurinoL 100 MG TAB PO SCH (06:00)
[2020-03-19 06:04] LABS: Basophils % 0.2 % (0-1.3); Hematocrit 25.1 % (36.0-45.0); Lymphocytes % 6.9 % (15.3-44.8); MPV 8.5 fL (7.6-11.3); RBC Red Blood Cell Count 2.93 M/uL (3.86-4.86)
[2020-03-19 06:11] LABS: Potassium 3.7 mmol/L (3.5-5.1)
[2020-03-19] MEDS ORDERED: D50W 50 ML IV ONE (06:31)
[2020-03-19] MEDS: TICAGRELOR 90 MG TABLET PO SCH ×2 (08:46→20:40)
[2020-03-19] MEDS: OXYBUTYNIN CHLORIDE 5 MG TAB PO SCH ×2 (08:47→20:46)
[2020-03-19] MEDS: CLONIDINE HCL 0.3 MG TAB PO SCH ×3 (08:47→20:41)
[2020-03-19] MEDS: HYDRALAZINE HCL 25 MG TABLET PO SCH ×3 (08:47→20:46)
[2020-03-19] MEDS: APIXABAN 2.5 MG TABLET PO SCH ×2 (08:47→20:41)
[2020-03-19] MEDS: D5 0.45 NS 1,000 ML IV SCH ×2 (08:48→23:35)
[2020-03-19] MEDS: CEFTRIAXONE/SWI 1gm 1 GM/10 ML SYR IVP SCH (08:48)
--- NOTE | 2020-03-19 13:13 | P.PN ---
Subjective Date of Service: 03/19/20 Chief Complaint: GENERALLY WEAK, NOT ABLE TO WALK Subjective: Improving SHE DOES NOT FEEL ANY BETTER BUT HER CREATININE HAS IMPRVOED. STILL WEAK AND HAS VERY SENSITIVE FEET. Review of Systems 10-point ROS is otherwise unremarkable General: Weakness, Malaise Physical Examination - Vital Signs Temperature: 98.2 F Blood Pressure: 172/75 Pulse: 115 Respirations: 18 Pulse Ox (%): 95 - Physical Exam General: Moderate distress, Obese HEENT: Atraumatic, PERRLA, EOMI Neck: Supple, JVD not distended Respiratory: Clear to auscultation bilaterally, Normal air movement Cardiovascular: Regular rate/rhythm, Normal S1 S2 Gastrointestinal: Normal bowel sounds, No tenderness Musculoskeletal: No tenderness Integumentary: No rashes Neurological: Normal speech, Normal tone, Normal affect, Other, Abnormal sensa tion (FEET HYPERAESTHESIA.) Lymphatics: No axilla or inguinal lymphadenopathy - Studies Microbiology Data (last 24 hrs): 03/18/20 12:08 Nasopharnyx Influenza Type A Antigen Screen - Final 03/18/20 12:08 Nasopharnyx Influenza Type B Antigen Screen - Final Medications List Reviewed: Yes Assessment And Plan - Current Problems (Diagnosis) (1) Prerenal azotemia Current Visit: Yes Status: Acute Plan: IV HYDRATION SHOULD IMPROVE HER KIDNEYS. CHECK SONOGRAM AND PVR. (2) UTI (urinary tract infection) Current Visit: Yes Status: Acute Plan: IV ROCEPHIN CULTURES ARE PENDING. (3) Diabetes type 2, controlled Current Visit: Yes Status: Chronic Plan: CHECK A1C LDL RESUME MEDS. Qualifiers: Diabetes mellitus jail insulin use: without jail use Diabetes mellitus complication status: with circulatory complication (4) History of atrial fibrillation Current Visit: Yes Status: Chronic Plan: RESTART GENTLE ANTICOAGUALTION. SHE HAD ANEMIA ON XARELTO. (5) Hypertension Onset Date: 05/20/15 Current Visit: No Status: Chronic Qualifiers: Hypertension type: essential hypertension (6) General weakness Current Visit: Yes Status: Acute (7) Diabetic neuropathy Current Visit: Yes Status: Chronic Plan: VERY SENSITIVE RESTART GABAPENTIN. Qualifiers: Diabetes mellitus type: type 2
[2020-03-19] MEDS: GABAPENTIN 300 MG CAP PO SCH ×2 (13:47→20:41)
[2020-03-19] MEDS: MELATONIN 5 MG TABLET PO SCH (20:47)
[2020-03-20] MEDS ORDERED: AZILSARTAN MEDOXOMIL 80 MG PO SCH (06:00)
[2020-03-20] MEDS: LEVOTHYROXINE SOD 0.05 MG TABLET PO SCH (06:04)
[2020-03-20] MEDS: ATORVASTATIN 80 MG TAB PO SCH (06:04)
[2020-03-20] MEDS: VALSARTAN 160 MG TAB PO SCH (06:04)
[2020-03-20] MEDS: allopurinoL 100 MG TAB PO SCH (06:05)
[2020-03-20] MEDS: NACHLORIDE 0.45% 1,000 ML IV SCH ×2 (07:09→21:14)
[2020-03-20] MEDS: HYDRALAZINE HCL 25 MG TABLET PO SCH ×3 (08:33→21:07)
[2020-03-20] MEDS: TICAGRELOR 90 MG TABLET PO SCH ×2 (08:33→21:08)
[2020-03-20] MEDS: OXYBUTYNIN CHLORIDE 5 MG TAB PO SCH ×2 (08:33→21:09)
[2020-03-20] MEDS: CEFTRIAXONE/SWI 1gm 1 GM/10 ML SYR IVP SCH (08:33)
[2020-03-20] MEDS: APIXABAN 2.5 MG TABLET PO SCH (08:33)
[2020-03-20] MEDS: CLONIDINE HCL 0.3 MG TAB PO SCH ×3 (08:33→21:08)
[2020-03-20] MEDS: GABAPENTIN 300 MG CAP PO SCH ×3 (08:33→21:09)
[2020-03-20] MEDS: VANCOMYCIN ORAL SOLN 250 MG/5 ML OSYR PO SCH ×3 (12:59→23:41)
[2020-03-20 13:57] LABS: C.diff Antigen/Toxin Ag neg : Tox neg (NEG : NEG)
[2020-03-20] MEDS: MELATONIN 5 MG TABLET PO SCH (21:00)
[2020-03-20] MEDS: ENSURE HIGH PROTEIN 237 ML CAN PO SCH (21:09)
--- NOTE | 2020-03-20 22:55 | PN ---
Subjective: Patient feels little better today. Denies any chest pain, nausea, vomiting. Her diarrh ea is still there. As soon as she stands up, she has loose BM. This is unclear whether it is a loos e BM or incontinence of stool itself. Physical Examination: Vital Signs: Blood pressure 130/60, pulse is 97, temperature 98.6. HEENT: No JVD. No carotid bruits. Patient is generally weak. Chest: Clear. Heart: Regular. Abdomen: No guarding, no rebound, no rigidity. Investigations: WBC 14,700, hemoglobin 8, hematocrit 25. BUN 50, creatinine 2.06. Assessment And Plannin.Generalized debilitation, dehydration clinically improved. 2.Urinary tract infection. Continue antibiotics. WBC count improving. 3.Anemia. Once again, she is not able to tolerate even the smallest dose of Eliquis, which should b e given to her for atrial fibrillation related stroke prevention. So at this point, we have to stop her Eliquis. She has not tolerated medications in the past. The patient's family aware that she is at risk of stroke or other embolisms if she continues to have drop in hemoglobin and we cannot give h er Eliquis. Prognosis is guarded overall. SAURABH/MODNuvia Voice ID: [id number] Report ID: [id number]
[2020-03-21 06:02] LABS: Absolute Lymphocytes (CBC) 1.1 K/uL (0.7-4.9); Basophils % 0.3 % (0-1.3); Lymphocytes % 8.1 % (15.3-44.8); MPV 8.1 fL (7.6-11.3); RBC Red Blood Cell Count 3.08 M/uL (3.86-4.86)
[2020-03-21] MEDS: ATORVASTATIN 80 MG TAB PO SCH (06:10)
[2020-03-21] MEDS: VALSARTAN 160 MG TAB PO SCH ×3 (06:10→20:21)
[2020-03-21] MEDS: VANCOMYCIN ORAL SOLN 250 MG/5 ML OSYR PO SCH ×3 (06:10→17:13)
[2020-03-21] MEDS: allopurinoL 100 MG TAB PO SCH (06:15)
[2020-03-21] MEDS: LEVOTHYROXINE SOD 0.05 MG TABLET PO SCH (06:15)
[2020-03-21 06:19] LABS: Potassium 3.6 mmol/L (3.5-5.1)
[2020-03-21] MEDS: CEFTRIAXONE/SWI 1gm 1 GM/10 ML SYR IVP SCH (09:14)
[2020-03-21] MEDS: FAMOTIDINE 20 MG/2 ML VIAL IV SCH ×2 (09:14→20:22)
[2020-03-21] MEDS: CLONIDINE HCL 0.3 MG TAB PO SCH ×3 (09:15→20:20)
[2020-03-21] MEDS: GABAPENTIN 300 MG CAP PO SCH ×3 (09:15→20:21)
[2020-03-21] MEDS: HYDRALAZINE HCL 25 MG TABLET PO SCH ×3 (09:15→20:19)
[2020-03-21] MEDS: TICAGRELOR 90 MG TABLET PO SCH ×2 (09:16→20:21)
[2020-03-21] MEDS: OXYBUTYNIN CHLORIDE 5 MG TAB PO SCH ×2 (09:16→20:24)
[2020-03-21] MEDS: NACHLORIDE 0.45% 1,000 ML IV SCH (09:17)
[2020-03-21] MEDS: ENSURE HIGH PROTEIN 237 ML CAN PO SCH ×2 (09:17→20:21)
[2020-03-21] MEDS: ACETAMINOPHEN 500 MG TAB PO PRN (12:48)
--- NOTE | 2020-03-21 14:23 | PN ---
Subjective: Ms. Lancaster is doing little better. Denies any chest pain, nausea, vomiting. Her diarrhe a still continues but improved compared to yesterday. Her C diff colitis report is still pending. S he has nausea all day, she says, more so in the morning. Objective: Vital Signs: Blood pressure 161/68, temperature 98.1. HEENT: No JVD. No carotid bruits. General: Generalized debilitation, not able to ambulate yet. Chest: Clear. Heart: Regular. Extremities: Bilateral lower limb severe neuropathy and painful condition. Assessment/plan: 1.Generalized debilitation. Continue OT and PT. 2.Dehydration. Renal failure, improved. 3.Urinary tract infection. Continue antibiotics. 4.Severe nausea. Start Pepcid 20 mg b.i.d. We have no GI doctor available as usual at this hospita l. Prognosis remains overall guarded. 5.Diarrhea. C diff colitis report is pending still. I started vancomycin with anticipation that th e possibility of C diff colitis here as clinically she was not improving. RVD/MODL Voice ID: [id number] Report ID: [id number]
[2020-03-21] MEDS: MELATONIN 5 MG TABLET PO SCH (20:20)
[2020-03-22] MEDS: NACHLORIDE 0.45% 1,000 ML IV SCH (05:02)
[2020-03-22] MEDS: VANCOMYCIN ORAL SOLN 250 MG/5 ML OSYR PO SCH ×3 (05:16→11:27)
[2020-03-22] MEDS: LEVOTHYROXINE SOD 0.05 MG TABLET PO SCH (05:16)
[2020-03-22] MEDS: ATORVASTATIN 80 MG TAB PO SCH (05:16)
[2020-03-22] MEDS: allopurinoL 100 MG TAB PO SCH (05:17)
[2020-03-22 05:59] LABS: Absolute Lymphocytes (CBC) 1.1 K/uL (0.7-4.9); Basophils % 0.2 % (0-1.3); Hematocrit 25.5 % (36.0-45.0); MPV 8.6 fL (7.6-11.3); RBC Red Blood Cell Count 3.03 M/uL (3.86-4.86)
[2020-03-22 06:02] LABS: Potassium 3.8 mmol/L (3.5-5.1)
[2020-03-22 07:28] LABS: Platelet Estimate ADEQ
[2020-03-22 07:29] LABS: Blood Morphology Comment NOTED (NOT SEEN)
[2020-03-22 07:30] LABS: Anisocytosis 1+
[2020-03-22] MEDS: GABAPENTIN 300 MG CAP PO SCH ×3 (09:01→21:08)
[2020-03-22] MEDS: FAMOTIDINE 20 MG/2 ML VIAL IV SCH ×2 (09:01→21:04)
[2020-03-22] MEDS: ACETAMINOPHEN 500 MG TAB PO PRN (09:01)
[2020-03-22] MEDS: CEFTRIAXONE/SWI 1gm 1 GM/10 ML SYR IVP SCH (09:01)
[2020-03-22] MEDS: TICAGRELOR 90 MG TABLET PO SCH ×2 (09:01→21:07)
[2020-03-22] MEDS: VALSARTAN 160 MG TAB PO SCH ×2 (09:02→21:04)
[2020-03-22] MEDS: CLONIDINE HCL 0.3 MG TAB PO SCH ×3 (09:02→21:07)
[2020-03-22] MEDS: HYDRALAZINE HCL 25 MG TABLET PO SCH ×3 (09:03→21:07)
[2020-03-22] MEDS: OXYBUTYNIN CHLORIDE 5 MG TAB PO SCH ×2 (09:03→21:07)
[2020-03-22] MEDS: ENSURE HIGH PROTEIN 237 ML CAN PO SCH ×2 (09:04→21:08)
[2020-03-22] MEDS ORDERED: COLCHICINE 0.6 MG TAB PO PRN (10:53)
[2020-03-22] MEDS ORDERED: COLCHICINE 0.6 MG TAB PO ONE (10:53)
--- NOTE | 2020-03-22 19:53 | PN ---
Subjective: Patient is feeling a lot better today. Denies chest pain, nausea, or vomiting. Her ganesh rrhea has improved somewhat. Physical Examination: Vital Signs: Blood pressure 141/58, temperature 98.2. Neck: No JVD. No carotid bruits. Extremities: She is still not able to walk. She is still not able to get up on her own from the bed , being generally weak. Neurological: She has no focal deficit, but generally, she is weak in the lower limbs. She has sever e neuropathy, which is probably impeding her ambulation. Laboratory Data: White count is 14,000, hemoglobin 8, hematocrit 25, platelets of 322. BUN 25, creat inine 0.98. Assessment And Plannin.Dehydration has improved from the urinary tract infection. She has improved in her clinical statu s of white count somehow it is increasing. So, I will be watching for a culture, which may help us a t this point, but the culture is negative for any urine positivity and also the blood cultures have b een negative. Now, this white count elevation on admission was because of any kind of GI issues, whi ch is unclear at this point. She does have worsening chronic diarrhea. Unfortunately, we do not hav e a GI specialist on-call almost ever at this hospital. So, we cannot do a colonoscopy on her, which she needs. 2.Severe neuropathy. Continue PT. We have referred her to rehab facility here, and once again, ins [employer] has not approved anything yet. Prognosis remains guarded. She is not approved for inpatient yet. I had a round up from discharge planning. Call the insurance company for a peer-to-p eer talk at this point. SAURABH/FREDDY Voice ID: [id number] Report ID: [id number]
[2020-03-22] MEDS: MELATONIN 5 MG TABLET PO SCH (21:00)
[2020-03-23] MEDS: NACHLORIDE 0.45% 1,000 ML IV SCH ×2 (00:47→21:00)
[2020-03-23 05:12] LABS: Basophils % 0.4 % (0-1.3); Hematocrit 24.8 % (36.0-45.0); MPV 8.3 fL (7.6-11.3); RBC Red Blood Cell Count 2.96 M/uL (3.86-4.86)
[2020-03-23 05:26] LABS: Potassium 3.6 mmol/L (3.5-5.1)
[2020-03-23] MEDS: ATORVASTATIN 80 MG TAB PO SCH (05:53)
[2020-03-23] MEDS: ACETAMINOPHEN 500 MG TAB PO PRN (05:53)
[2020-03-23] MEDS: allopurinoL 100 MG TAB PO SCH (05:54)
[2020-03-23] MEDS: LEVOTHYROXINE SOD 0.05 MG TABLET PO SCH (05:54)
[2020-03-23] MEDS: ENSURE HIGH PROTEIN 237 ML CAN PO SCH ×2 (09:00→21:11)
[2020-03-23] MEDS: HYDRALAZINE HCL 25 MG TABLET PO SCH ×3 (09:15→20:01)
[2020-03-23] MEDS: CLONIDINE HCL 0.3 MG TAB PO SCH ×3 (09:16→20:01)
[2020-03-23] MEDS: TICAGRELOR 90 MG TABLET PO SCH ×2 (09:17→20:01)
[2020-03-23] MEDS: OXYBUTYNIN CHLORIDE 5 MG TAB PO SCH ×2 (09:17→20:01)
[2020-03-23] MEDS: VALSARTAN 160 MG TAB PO SCH ×2 (09:18→20:01)
[2020-03-23] MEDS: FAMOTIDINE 20 MG/2 ML VIAL IV SCH ×2 (09:18→20:02)
[2020-03-23] MEDS: GABAPENTIN 300 MG CAP PO SCH ×3 (09:19→20:02)
[2020-03-23] MEDS ORDERED: NA CHLORIDE 0.9% 250 ML ONE (13:06)
[2020-03-23] MEDS ORDERED: NA CHLORIDE 0.9% 100 ML ONE (19:57)
[2020-03-23] MEDS: MELATONIN 5 MG TABLET PO SCH (20:02)
[2020-03-24] MEDS: ATORVASTATIN 80 MG TAB PO SCH (05:24)
[2020-03-24] MEDS: LEVOTHYROXINE SOD 0.05 MG TABLET PO SCH (05:24)
[2020-03-24] MEDS: allopurinoL 100 MG TAB PO SCH (05:24)
[2020-03-24 05:47] LABS: Absolute Lymphocytes (CBC) 1.3 K/uL (0.7-4.9); Basophils % 0.3 % (0-1.3); Hematocrit 29.9 % (36.0-45.0); MPV 8.3 fL (7.6-11.3); RBC Red Blood Cell Count 3.54 M/uL (3.86-4.86)
[2020-03-24 05:59] LABS: Potassium 3.6 mmol/L (3.5-5.1)
[2020-03-24] MEDS: CLONIDINE HCL 0.3 MG TAB PO SCH ×3 (08:49→21:20)
[2020-03-24] MEDS: GABAPENTIN 300 MG CAP PO SCH ×3 (08:50→21:20)
[2020-03-24] MEDS: VALSARTAN 160 MG TAB PO SCH ×2 (08:50→21:19)
[2020-03-24] MEDS: FAMOTIDINE 20 MG/2 ML VIAL IV SCH ×2 (08:51→21:20)
[2020-03-24] MEDS: OXYBUTYNIN CHLORIDE 5 MG TAB PO SCH ×2 (08:51→21:20)
[2020-03-24] MEDS: HYDRALAZINE HCL 25 MG TABLET PO SCH ×3 (08:53→21:20)
[2020-03-24] MEDS: TICAGRELOR 90 MG TABLET PO SCH ×2 (08:53→21:20)
[2020-03-24] MEDS: ENSURE HIGH PROTEIN 237 ML CAN PO SCH ×2 (08:55→21:00)
[2020-03-24] MEDS: ACETAMINOPHEN 500 MG TAB PO PRN (09:53)
--- NOTE | 2020-03-24 11:58 | P.PN ---
Subjective Date of Service: 03/24/20 Chief Complaint: GENERALLY WEAK, NOT ABLE TO WALK Subjective: C/O voiced SHE DOES NOT FEEL ANY BETTER BUT HER CREATININE HAS IMPRVOED. STILL WEAK AND HAS VERY SENSITIVE FEET. TODAY SHE SAYS SHE FEELS WORSE. ON ASKING HOW SHE SAYS SHE IS FATIGUED AND HAS COUGH. SHE STILL HAS NOT BEEN ABLE TO WALK WITH GEN WEAKNESS. Review of Systems 10-point ROS is otherwise unremarkable General: Weakness, Malaise Physical Examination - Vital Signs Temperature: 98.4 F Blood Pressure: 179/73 Pulse: 80 Respirations: 18 Pulse Ox (%): 96 - Physical Exam General: Mild distress, Obese HEENT: Atraumatic, PERRLA, EOMI Neck: Supple, JVD not distended Respiratory: Clear to auscultation bilaterally, Normal air movement Cardiovascular: Regular rate/rhythm, Normal S1 S2 Gastrointestinal: Normal bowel sounds, No tenderness Musculoskeletal: No tenderness Integumentary: No rashes Neurological: Normal speech, Normal affect, Abnormal strength (GEN WEAK, NO FOCAL DEFICITS.) Lymphatics: No axilla or inguinal lymphadenopathy - Studies Microbiology Data (last 24 hrs): 03/18/20 12:15 Blood - Blood Aerobic Blood Culture - Final No growth in 5 days. 03/18/20 12:15 Blood - Blood Anaerobic Blood Culture - Final No growth in 5 days. 03/18/20 12:15 Blood - Blood Aerobic Blood Culture - Final No growth in 5 days. 03/18/20 12:15 Blood - Blood Anaerobic Blood Culture - Final No growth in 5 days. Medications List Reviewed: Yes Assessment And Plan - Current Problems (Diagnosis) (1) Prerenal azotemia Current Visit: Yes Status: Acute Plan: IV HYDRATION SHOULD IMPROVE HER KIDNEYS. CHECK SONOGRAM AND PVR. (2) UTI (urinary tract infection) Current Visit: Yes Status: Acute Plan: IV ROCEPHIN CULTURES ARE PENDING. NEG CULTURE. ABX DCED. (3) Diabetes type 2, controlled Current Visit: Yes Status: Chronic Plan: CHECK A1C LDL RESUME MEDS. 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 SHE HAD ANEMIA ON XARELTO. (5) Hypertension Onset Date: 05/20/15 Current Visit: No Status: Chronic Qualifiers: Hypertension type: essential hypertension (6) General weakness Current Visit: Yes Status: Acute (7) Diabetic neuropathy Current Visit: Yes Status: Chronic Plan: VERY SENSITIVE RESTART GABAPENTIN. Qualifiers: Diabetes mellitus type: type 2 (8) Cough Current Visit: Yes Status: Acute Plan: CHECK COVID TEST AGAIN. SHE TODAY HAS COUGH. (9) Leukocytosis Current Visit: Yes Status: Chronic Plan: NEG BC 2 NEG URINE CS NEG C DIFF. ORDER CT CHEST ABDOMEN AND PELVIS TO SEE WHY SHE HAS LEUKOCYTOSIS AND SHE FEELS BAD.
[2020-03-24 12:19] LABS: ALT/SGPT 27 U/L (12-78); AST/SGOT 22 U/L (15-37); Albumin 1.7 g/dL (3.4-5.0); Alkaline Phosphatase 156 U/L (45-117); Bilirubin Direct < 0.1 mg/dL (0-0.2); Bilirubin Total 0.3 mg/dL (0.2-1.0); Protein, Total 6.4 g/dL (6.4-8.2)
--- NOTE | 2020-03-24 14:00 | RAD REPORT ---
EXAM DESCRIPTION: CT - Chest Abdomen Pelvis W Cont - 03/24/2020 1:42 pm CLINICAL HISTORY: leukocytosis, unclear source of sepsis COMPARISON: No comparisons TECHNIQUE: Following dynamic enhancement using 100 milliliters nonionic IV contrast, axial imaging o f the chest, abdomen and pelvis was performed. Biphasic technique was utilized through the abdomen. Oral contrast was administered. All CT scans are performed using dose optimization technique as appropriate and may include automated exposure control or mA/KV adjustment according to patient size. FINDINGS: Lungs are clear of mass and infiltrate. Linear stranding posterior gutter on the left is a telectasis or scarring. No pleural effusion, pleural thickening or pneumothorax. No significant aorti c or pulmonary arterial tree finding. Mediastinal and hilar regions show no mass or abnormal lymphade nopathy. No chest wall mass or axillary lymphadenopathy. Liver shows borderline fatty infiltration pattern. No focal liver lesions identified. No abnormal sherrill er capsule nodularity. Portal vein shows normal enhancement pattern. No splenomegaly or focal splenic finding. Pancreas and peripancreatic tissue show no suspicious findings. Gallbladder is absent. Bili isaak tree within normal limits. Symmetric renal function is seen with no mass or hydronephrosis. No pyelonephritis or acute renal pa renchymal process identified. Patient has bilateral renal cysts. Urinary bladder is quite distended b ut shows no wall thickening, mass or intraluminal abnormality. No uterine or ovarian abnormality seen . No gastric dilatation or wall thickening. No acute small bowel finding. No evidence for appendicitis. Patient has a prominent, fatty ileocecal valve. No colon dilatation, wall thickening or mass. There is minimal diverticulosis without diverticulitis in the sigmoid colon. No acute GI findings seen. No acute or destructive bony process. No significant vascular findings. IMPRESSION: CT chest imaging shows no pneumonia or other acute process. CT abdomen and pelvis shows prominent distention of the urinary bladder without wall thickening, felicia a or enhancement. No mass seen. No pyelonephritis identifiable. Patient has minimal diverticulosis but no diverticulitis or other acute GI process seen.
[2020-03-24] MEDS: NACHLORIDE 0.45% 1,000 ML IV SCH ×2 (14:26→17:00)
[2020-03-24] MEDS: MELATONIN 5 MG TABLET PO SCH (21:00)
[2020-03-25] MEDS: LEVOTHYROXINE SOD 0.05 MG TABLET PO SCH (05:35)
[2020-03-25] MEDS: allopurinoL 100 MG TAB PO SCH (05:35)
[2020-03-25] MEDS: ATORVASTATIN 80 MG TAB PO SCH (05:35)
[2020-03-25 06:39] LABS: C-Reactive Protein 13.9 mg/L (<3.00); Potassium 3.6 mmol/L (3.5-5.1)
[2020-03-25 06:41] LABS: Absolute Lymphocytes (CBC) 1.4 K/uL (0.7-4.9); Basophils % 0.3 % (0-1.3); Hematocrit 31.2 % (36.0-45.0); Lymphocytes % 8.1 % (15.3-44.8); MPV 8.5 fL (7.6-11.3); RBC Red Blood Cell Count 3.72 M/uL (3.86-4.86)
[2020-03-25] MEDS ORDERED: SPIRONOLACTONE 25 MG TABLET PO SCH (09:00)
[2020-03-25] MEDS ORDERED: AMLODIPINE 10 MG TAB PO SCH (09:00)
[2020-03-25] MEDS: HYDRALAZINE HCL 25 MG TABLET PO SCH ×2 (09:10→13:57)
[2020-03-25] MEDS: FAMOTIDINE 20 MG/2 ML VIAL IV SCH (09:11)
[2020-03-25] MEDS: TICAGRELOR 90 MG TABLET PO SCH (09:11)
[2020-03-25] MEDS: GABAPENTIN 300 MG CAP PO SCH ×2 (09:11→13:57)
[2020-03-25] MEDS: OXYBUTYNIN CHLORIDE 5 MG TAB PO SCH (09:11)
[2020-03-25] MEDS: CLONIDINE HCL 0.3 MG TAB PO SCH ×2 (09:11→13:57)
[2020-03-25] MEDS: VALSARTAN 160 MG TAB PO SCH (09:11)
[2020-03-25] MEDS: ENSURE HIGH PROTEIN 237 ML CAN PO SCH (09:12)
--- NOTE | 2020-03-25 09:15 | RAD REPORT ---
EXAM DESCRIPTION: USExtrem Venous W Compress Bil03/25/2020 8:47 am CLINICAL HISTORY: Leg pain/elevated D-dimer COMPARISON: 2018 FINDINGS: The common femoral, superficial femoral, popliteal and posterior tibial veins bilaterally are compressible and demonstrate augmentation. Doppler demonstrates good flow. IMPRESSION: No evidence of deep venous thrombosis involving either lower extremity.
[2020-03-25 16:45] VITALS: BP 171/58; TEMP 98.2
--- NOTE | 2020-03-25 17:05 | P.DS ---
Admission Date: 03/18/20 Discharge Date: 03/25/20 Disposition: TRANSFER TO [facility] [place] Discharge Condition: FAIR Reason for Admission: GENERALLY WEAK, NOT ABLE TO WALK - Problems (1) Prerenal azotemia Current Visit: Yes Status: Acute (2) UTI (urinary tract infection) Current Visit: Yes Status: Acute (3) Diabetes type 2, controlled Current Visit: Yes Status: Chronic Qualifiers: Diabetes mellitus longterm insulin use: without longterm use Diabetes mellitus complication status: with circulatory complication (4) History of atrial fibrillation Current Visit: Yes Status: Chronic (5) Hypertension Onset Date: 05/20/15 Current Visit: No Status: Chronic Qualifiers: Hypertension type: essential hypertension (6) General weakness Current Visit: Yes Status: Acute (7) Diabetic neuropathy Current Visit: Yes Status: Chronic Qualifiers: Diabetes mellitus type: type 2 (8) Cough Current Visit: Yes Status: Acute (9) Leukocytosis Current Visit: Yes Status: Chronic Brief History of Present Illness: MS. BRAVO HAS MANY MEDICAL ISSUES INCLUDING, DM, UNCONTROLLED HTN, CKD 3, DJD, OBESITY,BACK PAIN. RECENT BASILAR ARTERY STENOSIS STENT. RECENT BRAIN ANEURYSM COIL INSERTION BY KHAI RODRIGEZ. FAMILY CALLED AND SAID THAT SHE IS VERY WEAK, NOT ABLE TO STAND UP ANY LONGER. Hospital Course: MS. BRAVO CAME WITH GEN WEAKNESS, FALLS FOR A FEW DAYS. SHE HAD A COIL PLACED IN BRAIN ANEURYSM AND LATER A STENT IN BASILAR ARTERY BY DR. KHAI CARRASCO AT [facility]. SHE ON ADMISSION HAD WBC COUNT ELEVATION OF 18K, THAT CAME DOWN TO 13K WITH IV ABX BUT SHE NEVER GREW ANY BACTERIA IN URINE, HAD NEG BLOOD CULTURES- NEG FOR ALBER ALSO. I STOPPED ANTIBIOTICS AFTER A WEEK OR SO THERE WAS NO SIGNS OF UTI. I ORDERED CT OF CHEST ABDOMEN AND PELVIS THAT WAS NEGATIVE FOR TUMORS, INFECTIONS OR PE. I ALSO DID VENOUS DOPPLER ON BOTH LEGS- NEG. I ORDERED MRI OF C AND L SPINE BUT WITH HER NOT HAVING A CARD OF CLEARANCE FOR THE COIL AND STENT, THE TEST COULD NOT BE DONE. MEANWHILE SHE HAD DROP IN HER HEMOGLOBIN DOWN TO 7 GM AND I GAVE HER TWO UNITS OF PACKED RBCS. SHE HAS A FIB BUT SHE IS NOT ABLE TO TOLERATE EVEN THE SMALL DOSE OF XARELTO OR ELIQUIS. SHE IS NOW ON BRILLINTA FOR STENT IN THE BASILAR ARTERY. HER STOOL FOR C DIFF IS NEGATIVE. SHE HAD DIARRHEA SINCE ADMISSION THAT IS NOW EASING OFF WIHOUT ANY PARTICULAR THERAPY. WE DON'T HAVE GI SPECIALIST OT ID TEAM TO TAKE CARE OF HER. SHE WILL GO TO [facility] [place] TODAY IF THEY HAVE A BED. IT IS UNCLEAR WHY SHE HAS LEUKOCYTOSIS. I HAD SMEAR DONE THAT SHOWS NO SIGNS OF MALIGNANCY. DR CARRASCO RULES OUT ANY INFECTION POST OP THE PROCEDURES. WE NEED MRI OF SPINE TO RULE OUT OCCULT OSTEOMYELITIS. Vital Signs/Physical Exam: Temp Pulse Resp BP Pulse Ox 98.2 F 73 18 171/58 H 96 03/25/20 16:00 03/25/20 16:00 03/25/20 16:00 03/25/20 16:00 03/25/20 16:00 Laboratory Data at Discharge: WBC 17.1 K/uL (4.3-10.9) H D 03/25/20 05:48 Hgb 10.3 g/dL (12.0-15.0) L 03/25/20 05:48 Hct 31.2 % (36.0-45.0) L 03/25/20 05:48 Plt Count 332 K/uL (152-406) 03/25/20 05:48 Sodium 141 mmol/L (136-145) 03/25/20 05:48 Potassium 3.6 mmol/L (3.5-5.1) 03/25/20 05:48 BUN 17 mg/dL (7-18) 03/25/20 05:48 Creatinine 0.92 mg/dL (0.55-1.3) 03/25/20 05:48 Glucose 119 mg/dL (74-106) H 03/25/20 05:48 Total Bilirubin 0.3 mg/dL (0.2-1.0) 03/24/20 05:06 AST 22 U/L (15-37) 03/24/20 05:06 ALT 27 U/L (12-78) 03/24/20 05:06 Alkaline Phosphatase 156 U/L (45-117) H 03/24/20 05:06 Home Medications: Allopurinol 100 mg PO [id number] 02/01/20 Atorvastatin Calcium [Lipitor] 80 mg PO [id number] 02/01/20 Azilsartan Medoxomil [Edarbi] 1 tab PO [id number] 02/01/20 Clonidine HCl [Catapres] 1 tab PO TID 02/01/20 Gabapentin 300 mg PO TID 02/01/20 Glimepiride 2 mg PO [id number] 02/01/20 Hydralazine HCl [Apresoline] 100 mg PO TID 02/01/20 Levothyroxine [Synthroid] 50 mcg PO [id number] 02/01/20 Melatonin 10 mg PO BEDTIME 02/01/20 Oxybutynin Chloride 5 mg PO BID 02/01/20 Ticagrelor [Brilinta*] 1 tab PO BID 02/01/20 Vit C/E/Zn/Coppr/Lutein/Zeaxan [Preservision Areds 2 Softgel] 1 each PO BID 02/01/20 Followup: Unknown,U [Primary Care Provider] -
[2020-03-25 18:44] VITALS: O2SAT 95
== END 2020-03-25 18:57 | disposition short-term general hospital (02) | DRG 683 ==
LOC: ER 11:41 → ERHOLD 14:32 → 2ND 15:40
PROVIDERS: ADMIT Internal Medicine; ATTEND Internal Medicine
PROC: 30233N1 Transfusion of Nonautologous Red Blood Cells into Peripheral Vein, Percutaneous Approach (ICD-10-PCS; principal; 2020-03-23)
DX: N17.9 Acute kidney failure, unspecified (principal); I48.20 Chronic atrial fibrillation, unspecified; E86.0 Dehydration; I12.9 Hypertensive chronic kidney disease with stage 1 through stage 4 chronic kidney disease, or unspecified chronic kidney disease; N18.30 Chronic kidney disease, stage 3 unspecified; E11.22 Type 2 diabetes mellitus with diabetic chronic kidney disease; E11.59 Type 2 diabetes mellitus with other circulatory complications; E11.40 Type 2 diabetes mellitus with diabetic neuropathy, unspecified; E78.5 Hyperlipidemia, unspecified; E03.9 Hypothyroidism, unspecified; D64.9 Anemia, unspecified; M19.90 Unspecified osteoarthritis, unspecified site; M10.9 Gout, unspecified; D72.829 Elevated white blood cell count, unspecified; K21.9 Gastro-esophageal reflux disease without esophagitis; E66.9 Obesity, unspecified; R53.81 Other malaise; R05 Cough; R19.7 Diarrhea, unspecified; R79.89 Other specified abnormal findings of blood chemistry; Z68.30 Body mass index [BMI] 30.0-30.9, adult; Z88.1 Allergy status to other antibiotic agents; Z88.5 Allergy status to narcotic agent; Z91.048 Other nonmedicinal substance allergy status; Z79.84 Long term (current) use of oral hypoglycemic drugs; Z79.890 Hormone replacement therapy; Z79.01 Long term (current) use of anticoagulants; Z79.899 Other long term (current) drug therapy; Z86.718 Personal history of other venous thrombosis and embolism; Z86.73 Personal history of transient ischemic attack (TIA), and cerebral infarction without residual deficits; Z90.49 Acquired absence of other specified parts of digestive tract; Z96.652 Presence of left artificial knee joint; Z87.891 Personal history of nicotine dependence; Z20.828 Contact with and (suspected) exposure to other viral communicable diseases
CPT/HCPCS: 36415; 36430; 71045; 71260; 72170; 74177; 80048; 80076; 81003; 81015; 82274; 82550; 82947; 83605; 84145; 85025; 85379; 86140; 86850; 86900; 86901; 87040; 87045; 87046; 87086; 87088; 87177; 87209; 87324; 87449; 87804; 89055; 93005; 93970; 96361; 96365; 97110; 97161; 97530; 99283; 99285; J0696; J7030; J7040; J7050; J7799; P9016; Q9967; U0002; U0003

== ENCOUNTER 2020-07-28 10:58 | Emergency (ER) | payer OTHER ==
--- OUTSIDE RECORDS SUMMARY | 2020-07-28 11:02 | XMS REPORT | Continuity of Care Document ---
:1940 Author Organization [facility] t Address [address] [place] [address] Care Team Providers Name Role Phone Doctor Unassigned, Name Attending Clinician Unavailable Anna CM, Eva Attending Clinician Unavailable Cal DOHERTY Attending Clinician Debra DOHERTY Attending Clinician Portillo Jimenez DO Attending Clinician Semaj Horne MD Attending Clinician Darius DOHERTY Attending Clinician Janay Ye MD Attending Clinician Lionel Kwok MD Attending Clinician India Carrasco MD Attending Clinician Unknown Attending Clinician Unavailable Pob, Lab Main Attending Clinician Unavailable [facility] Attending Clinician Unavailable Vls-Lab Attending Clinician Unavailable Only, Test Attending Clinician Unavailable INDIA CARRASCO Attending Clinician Unavailable DALE FLORES Attending Clinician Unavailable Debra DOHERTY Admitting Clinician Jose Palma MD Admitting Clinician India Carrasco MD Admitting Clinician SHALONDA Admitting Clinician Unavailable INDIA CARRASCO Admitting Clinician Unavailable Problems This patient has no known problems. Allergies, Adverse Reactions, Alerts This patient has no known allergies or adverse reactions. Medications This patient has no known medications. Procedures This patient has no known procedures. Encounters Start End Encounter Admission Attending Care Care Encounter Source Date/Time Date/Time Type Type Clinicians Facility Department ID 2020-05-07 2020-05-07 Orders Doctor SHILPA 1.2.840.114 [id number] 00:00:00 00:00:00 Only UnassignedCLIVE 350.1.13.10 [place] [facility] 4.2.7.2.686 [id number] 009 2020-05-03 2020-05-03 Transition Jaz Castillo 1.2.840.114 [id number] 00:00:00 00:00:00 of Care Ermias Ly 350.1.13.10 [place] 4.2.7.2.686 [id number] 403 2020-04-26 2020-05-02 [facility] Zachary Mccall [facility] 1.2.840 .114 [id number] 19:53:00 21:15:00 Encounter wendy [facility] 350.1.13.10 Clear 4.2.7.2.686 [place] [id number] [facility] 109 ([facility]) 2020-04-19 2020-04-19 Transition Jaz Castillo 1.2.840.114 [id number] 00:00:00 00:00:00 of Care Ermias Ly 350.1.13.10 [place] 4.2.7.2.686 [id number] 403 2020-04-19 2020-04-19 Patient Tony [facility] 1.2.840.114 [id number] 00:00:00 00:00:00 Outreach Rojelio PRIMARY 350.1.13.10 Portillo [facility] 4.2.7.2.686 PAVILLION [id number] 2020-03-25 2020-04-18 Hospital Kirsten Horne 1.2.8 40.114 [id number] 20:15:00 20:11:00 Encounter Darius Fred [facility] 350.1.13.10 [facility] 4.2.7.2.686 [id number] 100 2020-04-02 2020-04-02 Anesthesia Rissa [facility] 1.2.840.114 [id number] 16:49:00 17:43:00 Abhinav LEDESMA 350.1.13.10 SCIENCES 4.2.7.2.686 BLDG [id number] 020 2020-03-25 2020-03-25 Telephone Khai Carrasco [facility] 1.2.840.114 [id number] 00:00:00 00:00:00 [facility] 350.1.13.10 Clear 4.2.7.2.686 Guerra [id number] Medical 196 Office Building 2020-01-25 2020-01-25 Transition Jaz Castillo 1.2.840.114 [id number] 00:00:00 00:00:00 of Care Ermias Ly 350.1.13.10 [place] 4.2.7.2.686 [id number] 403 2020-01-23 2020-01-24 Hospital Unknown, Attending [facility] 1.2.84 0.114 [id number] 10:26:00 11:59:00 Encounter Khai Carrasco no [facility] 350.1.13. 10 Clear 4.2.7.2.686 [place] [id number] Hospital 111 ([facility]) 2020-01-24 2020-01-24 Telephone Khai Carrasco [facility] 1.2.840.114 [id number] 00:00:00 00:00:00 [facility] 350.1.13.10 Clear 4.2.7.2.686 Guerra [id number] Medical 196 Office Building 2020-01-22 2020-01-22 Copy Writer Carlos Vargas [facility] 1.2.840.114 [id number] 12:34:09 12:49:09 Visit Lab Main José Miguel 350.1.13.10 [place] 4.2.7.2.686 Professgabriel [id number] nal 353 Building 2020-01-22 2020-01-22 Orders Doctor SHILPA 1.2.840.114 [id number] 00:00:00 00:00:00 Only Unassigned, CL[place] 350.1.13.10 [place] [facility] 4.2.7.2.686 [id number] [id number] 2020-01-17 2020-01-17 Copy Writer [facility] 1.2.840.114 [id number] 08:19:12 08:49:12 Visit [facility] 350.1.13.10 CLINICS 4.2.7.2.686 [id number] 316 2020-01-15 2020-01-15 Copy Writer Vls-Lab [place] 1.2.840.114 [id number] 12:07:39 12:22:39 Visit SPECIALTY 350.1.13.10 CARE 4.2.7.2.686 [facility] [id number] FARNCISCO JAVIER [address] [place] [address] 2020-01-15 2020-01-15 Laboratory Only, Adc [facility] 1.2.840.114 [id number] 10:08:01 10:23:01 Only Test [place] 350.1.13.10 [place] 4.2.7.2.686 [place] [id number] 2020-01-15 2020-01-15 Orders Doctor SHILPA 1.2.840.114 [id number] 00:00:00 00:00:00 Only Unassigned, [place] 350.1.13.10 [place] [facility] 4.2.7.2.686 [id number] [id number] 2020-01-08 2020-01-08 Office Elvin, Khai [facility] 1.2.840.114 [id number] 10:52:01 16:03:43 Visit [facility] 350.1.13.10 [place] 4.2.7.2.686 [place] [id number] Medical 196 Office Building Results Test Description Test Time Test Comments Results Result Comments Source SARS-COV2/RT-PCR ([facility]) 2019-09-07 06:43:00 Test Item Value Reference Range Interpretation Comme nts SARS-COV2/RT-PCR (test code = 0313457) Not Detected Not Detected, N egative SARS-COV-2 PERFORMING LAB (test code = [facility] Negative results do not preclude SARS-CoV-2 infection [...] of the Act.Fact Sheet for Healthcare Pro viders:https://www.Oddcast/Documents/Xpert%20Xpress%20SARS%20CoV-2/Fact%20Sh eets/302-3802%26XINH-RCX-0%20HEALTHCARE%20PROVIDERS%20FACT%20SHEET.pdfFact Sheet for Healthcare Patients:https://www.Signix/Documents/Xpert%20Xpress%20SARS%20CoV-2/Fact%20Sheets/302-3801%20SARS-COV -2%20PATIENT%20FACT%20SHEET.pdfPerforming Laboratory:[address], [place] [id number] PLATELET AGGREGATION 2019-09-06 11:11:00 Test Item Value Reference Range Interpretation Comments POC-P2Y12 PLATELET AGG (BEAKER) (test 79 PRU code = 2303) RANGE INFORMATION: PRU reference range is 194-418. Post Drug Results: Lower PRU levels are associated with expected antiplatelet effect. Values may be below the stated reference range above. The post-drug PRU values reported in the VerifyNow P2Y12 package insert are 18-435.POCT-ASPIRIN PLATELET [id number] 11:08:00 Test Item Value Reference Range Interpretation Comments POC-ASPIRIN PLATELET AGG (BEAKER) 385 ARU (test code = 2302) RANGE INFORMATION: 350-549 ARU Therapeutic range for platelet function. 550-700 ARU Non-Therapeutic range for platelet function.BASIC METABOLIC [id number] 10:35:00 Test Item Value Reference Range Interpretation [...] S NOT APPLICABLE FOR DIALYSIS PATIEN TS. Preservative Filler Machine Operator ID - [place] FCBC W/PLT COUNT & AUTO [id number] 10:33:00 Test Item Value Reference Range Interpretation [...] 0-1 PERCENT (BEAKER) (test code = 2801) [id number] 10:12:00 Test Item Value Reference Range Interpretation [...] is2.5-3.5 for patients wiht mechanical heart valves.POCT-GLUCOSE [id number] 12:47:00 Test Item Value Reference Range Interpretation Comments POC-GLUCOSE METER 133 mg/dL 70-110 H : TESTED Eva Garcia [facility] 6720 (BEAKER) (test code [facility], = 1538) 25275: Preservative Filler Machine Operator/Techni gretel ID = [id number] for TSEG GAI, TSIGHEREDA POCT-GLUCOSE [id number] 07:59:00 Test Item Value Reference Range Interpretation Comments POC-GLUCOSE METER 125 mg/dL 70-110 H : TESTED A T [facility] 6720 (BEAKER) (test code [facility], = 1538) 37294: Preservative Filler Machine Operator/Techni gretel ID = [id number] for TSEG GAI, TSIGHEREDA POCT-GLUCOSE [id number] 21:06:00 Test Item Value Reference Range Interpretation Comments POC-GLUCOSE METER 192 mg/dL 70-110 H : TESTED A T [facility] 6720 (BEAKER) (test [facility] = [facility], 1538) [address]: Preservative Filler Machine Operator/Techni gretel ID = [id number] for DE NNIS, MALIHA POCT-GLUCOSE [id number] 17:33:00 Test Item Value Reference Range Interpretation Comments POC-GLUCOSE METER 124 mg/dL 70-110 H : TESTED A T [facility] 6720 (BEAKER) (test code [facility], = 1538) 29824: Preservative Filler Machine Operator/Techni gretel ID = [id number] for TSEG GAI, TSIGHEREDA POCT-GLUCOSE [id number] 11:50:00 Test Item Value Reference Range Interpretation Comments POC-GLUCOSE METER 102 mg/dL 70-110 : TESTED A T [facility] 6720 (BEAKER) (test code [facility], = 1538) 23131: Preservative Filler Machine Operator/Techni gretel ID = [id number] for TSEG GAI, TSIGHEREDA POCT-GLUCOSE [id number] 07:44:00 Test Item Value Reference Range Interpretation Comments POC-GLUCOSE METER 96 mg/dL 70-110 : TESTED A T [facility] 6720 (BEAKER) (test code [facility], = 1538) 86310: Preservative Filler Machine Operator/Techni gretel ID = [id number] for TSEG GAI, TSIGHEREDA POCT-GLUCOSE [id number] 22:28:00 Test Item Value Reference Range Interpretation Comments POC-GLUCOSE METER 201 mg/dL 70-110 H : Notified RN/MD: (GIFTY) (test code = TESTED AT [place] [address] 1538) [facility], [address]: Preservative Filler Machine Operator/Techni gretel ID = [id number] for LATHBRID[place], AMRITA ICE HEMOGLOBIN AND [id number] 11:01:00 Test Item Value Reference Range Interpretation Comments HEMOGLOBIN (BEAKER) (test code = 9.3 GM/DL 11.2-15.7 L 410) HEMATOCRIT (BEAKER) (test code = 28.8 % 34.1-44.9 L 411) Preservative Filler Machine Operator ID - [id number]-GLUCOSE [id number] 23:42:00 Test Item Value Reference Range Interpretation Comments POC-GLUCOSE METER 158 mg/dL 70-110 H : Notified RN/MD: (GIFTY) (test code = TESTED AT [place] [address] 1538) [facility], [address]: Preservative Filler Machine Operator/Techni gretel ID = [id number] for LATHBRIDGE, AMRITA ICE POCT-GLUCOSE [id number] 12:06:00 Test Item Value Reference Range Interpretation Comments POC-GLUCOSE METER 157 mg/dL 70-110 H : TESTED A T [facility] 67 (BEAKER) (test code [facility], = 1538) [address]: Preservative Filler Machine Operator/Techni gretel ID = [id number] for LIZ BRYAN [id number] 06:57:00 Test Item Value Reference Range Interpretation Comments MAGNESIUM (BEAKER) (test code = 1.7 mg/dL 1.6-2.6 627) Preservative Filler Machine Operator ID - KEARA WBASIC METABOLIC [id number] 06:57:00 Test Item Value Reference Range Interpretation [...] S NOT APPLICABLE FOR DIALYSIS PATIEN TS. Preservative Filler Machine Operator ID - KEARA WHEMOGLOBIN AND [id number] 05:42:00 Test Item Value Reference Range Interpretation Comments HEMOGLOBIN (BEAKER) (test code = 8.3 GM/DL 11.2-15.7 L 410) HEMATOCRIT (BEAKER) (test code = 26.4 % 34.1-44.9 L 411) Preservative Filler Machine Operator ID - [id number]-GLUCOSE [id number] 22:26:00 Test Item Value Reference Range Interpretation Comments POC-GLUCOSE METER 137 mg/dL 70-110 H : TESTED A T [facility] 6720 (OtherInbox) (test code = HUMBERTO [employer] [facility], 1538) 39[address]: Preservative Filler Machine Operator/Techni gretel ID = [id number] for MALLORY GRAHAM RAD, CHEST, 1 VIEW, NON [id number] 21:41:00Reason for exam:->shortness of breath, coughShould this [...] Signed: Annelise Davis Verified Date/Time: 05/25/2019 21:41:23 POCT-GLUCOSE [id number] 16:37:00 Test Item Value Reference Range Interpretation Comments POC-GLUCOSE METER 217 mg/dL 70-110 H : TESTED A T [facility] 6720 (BEAccelergy) (test code = HUMBERTO [employer] [facility], 1538) 37385: Preservative Filler Machine Operator/Techni gretel ID = [id number] for RO DGERS, ROGERIOECA POCT-GLUCOSE [id number] 13:05:00 Test Item Value Reference Range Interpretation Comments POC-GLUCOSE METER 196 mg/dL 70-110 H : TESTED A T [facility] 6720 (BEAKER) (test code = [facility], 1538) 44202: Preservative Filler Machine Operator/Techni gretel ID = [id number] for RO DGERS, JAMECA POCT-GLUCOSE [id number] 08:49:00 Test Item Value Reference Range Interpretation Comments POC-GLUCOSE METER 95 mg/dL 70-110 : TESTED A T [facility] 6720 (BEAKER) (test code = [facility], 1538) 10727: Preservative Filler Machine Operator/Techni gretel ID = [id number] for RODG ERS, ROGERIOECA HEMOGLOBIN AND [id number] 05:24:00 Test Item Value Reference Range Interpretation Comments HEMOGLOBIN (BEAKER) (test code = 8.4 GM/DL 11.2-15.7 L 410) HEMATOCRIT (BEAKER) (test code = 27.0 % 34.1-44.9 L 411) Preservative Filler Machine Operator ID - [id number]-GLUCOSE [id number] 22:08:00 Test Item Value Reference Range Interpretation Comments POC-GLUCOSE METER 164 mg/dL 70-110 H : TESTED A T [facility] 6720 (BEAKER) (test code = [facility], 1538) 88210: Preservative Filler Machine Operator/Techni gretel ID = [id number] for MALLORY GRAHAM POCT-GLUCOSE [id number] 12:57:00 Test Item Value Reference Range Interpretation Comments POC-GLUCOSE METER 156 mg/dL 70-110 H : TESTED A T [facility] 6720 (BEAKER) (test code = [facility], 1538) 63048: Preservative Filler Machine Operator/Techni gretel ID = [id number] for RO DGERS, JAMECA POCT-GLUCOSE [id number] 08:38:00 Test Item Value Reference Range Interpretation Comments POC-GLUCOSE METER 102 mg/dL 70-110 : TESTED A T [facility] 6720 (BEAKER) (test code = [facility], 1538) 44515: Preservative Filler Machine Operator/Techni gretel ID = [id number] for RO DGERS, JAMECA BASIC METABOLIC [id number] 06:30:00 Test Item Value Reference Range Interpretation [...] S NOT APPLICABLE FOR DIALYSIS PATIEN TS. Preservative Filler Machine Operator ID - GALAPCBC (HEMOGRAM ONLY)2019-05-24 05:51:00 [...] 0-0 (BEAKER) (test code = 413) POCT-GLUCOSE [id number] 18:38:00 Test Item Value Reference Range Interpretation Comments POC-GLUCOSE METER 243 mg/dL 70-110 H : Notified RN/MD: (BEAKER) (test code = TESTED AT [facility] 9646 2227) [facility], [address]: Preservative Filler Machine Operator/Techni gretel ID = [id number] for Keiry Owens BASIC METABOLIC [id number] 06:25:00 Test Item Value Reference Range Interpretation [...] S NOT APPLICABLE FOR DIALYSIS PATIEN TS. Preservative Filler Machine Operator ID - GALAPCBC (HEMOGRAM ONLY)2019-05-23 05:56:00 [...] 0-0 (BEAKER) (test code = 413) POCT-GLUCOSE [id number] 00:29:00 Test Item Value Reference Range Interpretation Comments POC-GLUCOSE METER 126 mg/dL 70-110 H : TESTED A T [facility] 6720 (BEAKER) (test code = [facility], 1538) 7[address]: Preservative Filler Machine Operator/Techni gretel ID = [id number] for MASON PHELPS CBC W/PLT COUNT & AUTO [id number] 06:36:00 Test Item Value Reference Range Interpretation [...] PERCENT (BEAKER) (test code = 2801) POCT-GLUCOSE [id number] 06:11:00 Test Item Value Reference Range Interpretation Comments POC-GLUCOSE METER 111 mg/dL 70-110 H : TESTED A T [facility] 6720 ([facility]) (test code = [facility], 1538) [address]: Preservative Filler Machine Operator/Techni gretel ID = [id number] for MEHUL Emery RAFAEL POCT-GLUCOSE [id number] 18:56:00 Test Item Value Reference Range Interpretation Comments POC-GLUCOSE METER 137 mg/dL 70-110 H : Notified RN/MD: ([facility]) (test code = TESTED AT [facility] 6720 1538) [facility], [address]: Preservative Filler Machine Operator/Techni gretel ID = [id number] for DANDY ESTRADA [id number] 13:58:00 Test Item Value Reference Range Interpretation Comments POTASSIUM (BEAKER) (test code = 3.9 meq/L 3.5-5.1 379) Preservative Filler Machine Operator ID - MALOU [id number] 13:58:00 Test Item Value Reference Range Interpretation Comments MAGNESIUM (BEAKER) (test code = 1.8 mg/dL 1.6-2.6 627) Preservative Filler Machine Operator ID - MALOU FCBC (HEMOGRAM ONLY)2019-05-21 [...] 0-0 (BEAKER) (test code = 413) POCT-GLUCOSE [id number] 13:11:00 Test Item Value Reference Range Interpretation Comments POC-GLUCOSE METER 164 mg/dL 70-110 H : Notified RN/MD: (BEAKER) (test code = TESTED AT [facility] 6720 1442) [place], [address]: Preservative Filler Machine Operator/Techni gretel ID = [id number] for DANDY ESTRADA URIC [id number] 10:43:00 Test Item Value Reference Range Interpretation Comments URIC ACID (BEAKER) (test code = 5.7 mg/dL 2.6-7.2 773) Preservative Filler Machine Operator ID - MALOU FBASIC METABOLIC [id number] 06:40:00 Test Item Value Reference Range Interpretation [...] S NOT APPLICABLE FOR DIALYSIS PATIEN TS. Preservative Filler Machine Operator ID - KEARA WPOCT-GLUCOSE [id number] 06:37:00 Test Item Value Reference Range Interpretation Comments POC-GLUCOSE METER 156 mg/dL 70-110 H : TESTED A T [facility] 6720 (BEAKER) (test code = [facility], 1538) [address]: Preservative Filler Machine Operator/Techni gretel ID = [id number] for MN RELA, RAJ CBC (HEMOGRAM ONLY)2019-05-21 06:20:00 Test [...] 0-0 (BEAKER) (test code = 413) POCT-GLUCOSE [id number] 00:42:00 Test Item Value Reference Range Interpretation Comments POC-GLUCOSE METER 155 mg/dL 70-110 H : TESTED A T [facility] 6720 (BEAKER) (test code = [place], 1538) [address]: Preservative Filler Machine Operator/Techni gretel ID = [id number] for RAJ YANG [id number] 19:49:00 Test Item Value Reference Range Interpretation Comments FERRITIN (BEAKER) (test code = 361) 29 ng/mL 5-275 Preservative Filler Machine Operator ID - TERRI [id number] 18:51:00 Test Item Value Reference Range Interpretation Comments TRANSFERRIN (BEAKER) (test code = 211 mg/dL 174-382 541) Preservative Filler Machine Operator ID - TERRI CARL, TIBC, % SAT. (WITHOUT FERRITIN)2019-05-20 18:51:00 Test Item Value Reference Range Interpretation Comments IRON (BEAKER) (test code = 547) 14.0 ug/dL 40.0-160.0 L TOTAL IRON BINDING CAPACITY 264 ug/dL 250-450 (BEAKER) (test code = 769) IRON % SATURATION (2) (BEAKER) 5 % 20-55 L (test code = 2590) Preservative Filler Machine Operator ID - TERRI MRAD, ANKLE, 1 VIEW, [id number] 18:09:00Reason for exam:- >left ankle painShould this be performed at the bedside?->YesFINAL REPORT TECHNIQUE: Two views of left ankle HISTORY: left ankle pain. COMPARISON: None. IMPRESSION:No acute displaced fracture or dislocation. Joint spaces are within normal limits.Minimal Achilles enthesopathy. Large plantar calcaneal spur and enthesopathy. Signed: Steven Lyman MDReport Verified Date/Time: 05/20/2019 18:09:20 Reading Location: [address] Consult Reading Room CBC (HEMOGRAM ONLY)2019-05-20 [...] WBC 0-0 (BEAKER) (test code = 413) [id number] 05:29:00 Test Item Value Reference Range Interpretation Comments MAGNESIUM (BEAKER) 1.9 mg/dL 1.6-2.6 Specimen slightly (test code = 627) hemolyzed Preservative Filler Machine Operator ID - TERRI [id number] 05:29:00 Test Item Value Reference Range Interpretation Comments PHOSPHORUS (BEAKER) 3.3 mg/dL 2.3-4.7 Specimen slightly (test code = 604) hemolyzed Preservative Filler Machine Operator ID - TERRI MBASIC METABOLIC [id number] 05:29:00 Test Item Value Reference Range Interpretation [...] S NOT APPLICABLE FOR DIALYSIS PATIEN TS. Preservative Filler Machine Operator ID - TERRI MCBC (HEMOGRAM ONLY)2019-05-20 04:51:00 [...] 0-0 (BEAKER) (test code = 413) POCT-GLUCOSE [id number] 18:36:00 Test Item Value Reference Range Interpretation Comments POC-GLUCOSE METER 101 mg/dL 70-110 : TESTED A T [facility] 6720 (BEAKER) (test code = [place], 1538) [address]: Preservative Filler Machine Operator/Techni gretel ID = [id number] for DANDY WINSTON CBC (HEMOGRAM ONLY)2019-05-19 18:33:00 [...] 0-0 (BEAKER) (test code = 413) POCT-GLUCOSE [id number] 12:30:00 Test Item Value Reference Range Interpretation Comments POC-GLUCOSE METER 130 mg/dL 70-110 H : TESTED A T [facility] 6720 (BEAKER) (test code = [place], 1538) [address]: Preservative Filler Machine Operator/Techni gretel ID = [id number] for SH DANDY WINSTON [id number] 08:02:00 Test Item Value Reference Range Interpretation Comments PHOSPHORUS (BEAKER) (test code = 2.5 mg/dL 2.3-4.7 604) Preservative Filler Machine Operator DEDE - TERRI [id number] 08:02:00 Test Item Value Reference Range Interpretation Comments MAGNESIUM (BEAKER) (test code = 1.6 mg/dL 1.6-2.6 627) Preservative Filler Machine Operator ID - TERRI MBASIC METABOLIC [id number] 08:02:00 Test Item Value Reference Range Interpretation [...] S NOT APPLICABLE FOR DIALYSIS PATIEN TS. Preservative Filler Machine Operator DEDE - TERRI [id number] 07:40:00 Test Item Value Reference Range Interpretation Comments FIBRINOGEN LEVEL (BEAKER) (test 489 mg/dl 225-434 H code = 658) [id number] 07:40:00 Test Item Value Reference Range Interpretation [...] 0-0 (BEAKER) (test code = 413) POCT-GLUCOSE [id number] 00:26:00 Test Item Value Reference Range Interpretation Comments POC-GLUCOSE METER 110 mg/dL 70-110 : Notified RN/MD: (GIFTY) (test code = TESTED AT [facility] 6731 7765) [facility], [address]: Preservative Filler Machine Operator/Techni gretel ID = [id number] for CHRIS PEREZ POCT-GLUCOSE [id number] 18:22:00 Test Item Value Reference Range Interpretation Comments POC-GLUCOSE METER 127 mg/dL 70-110 H : TESTED A T [facility] 6720 (BEAKER) (test code = HUMBERTO Mackenzie [place], 1538) [address]: Preservative Filler Machine Operator/Techni gretel ID = [id number] for RADHA DE LOS SANTOS POCT-GLUCOSE [id number] 12:25:00 Test Item Value Reference Range Interpretation Comments POC-GLUCOSE METER 171 mg/dL 70-110 H : TESTED A T [facility] 6720 (BEAKER) (test code = HUMBERTO Mackenzie [facility], 1538) [address]: Preservative Filler Machine Operator/Techni gretel ID = [id number] for RADHA DE [place]OS [id number] 04:17:00 Test Item Value Reference Range Interpretation Comments PHOSPHORUS (BEAKER) (test code = 2.0 mg/dL 2.3-4.7 L 604) Preservative Filler Machine Operator DEDE SARAH [id number] 04:17:00 Test Item Value Reference Range Interpretation Comments MAGNESIUM (BEAKER) (test code = 1.6 mg/dL 1.6-2.6 627) Preservative Filler Machine Operator DEDE SARAH WBASIC METABOLIC [id number] 04:17:00 Test Item Value Reference Range Interpretation [...] S NOT APPLICABLE FOR DIALYSIS PATIEN TS. Preservative Filler Machine Operator ID Ross SARAH WCBC (HEMOGRAM ONLY)2019-05-18 [...] 0-0 (BEAKER) (test code = 413) POCT-GLUCOSE [id number] 18:43:00 Test Item Value Reference Range Interpretation Comments POC-GLUCOSE METER 139 mg/dL 70-110 H : TESTED A T [facility] 6720 (BEAKER) (test code = HUMBERTO Mackenzie [facility], 1538) [address]: Preservative Filler Machine Operator/Techni gretel ID = [id number] for MIKE SANDRARADHA, CAROTID STENT W [id number] 15:10:00Reason for exam:->left carotid stenosisFINAL REPORT Date [...] guidance and strict sterile technique a 6 [place] shuttle sheath was inserted through the right [...] the stent to the arterial wall with spiritism of the intraluminal flow and mild residual stenosis of approximately 20%. There is no evidence of platelet aggregation, or dissection. Intracranially there is spiritism of good antegrade flow with no evidence [...] remain on antiplatelet therapy. Signed: Khai Carrasco Verified Date/Time: 05/17/2019 15:10:42 Reading Location: [facility] [id number] Neuro Angio Reading Room POCT-GLUCOSE [id number] 12:40:00 Test Item Value Reference Range Interpretation Comments POC-GLUCOSE METER 130 mg/dL 70-110 H : TESTED A T [facility] 6720 (BEAKER) (test code = [place]ERTO [place], 1538) [address]: Preservative Filler Machine Operator/Techni gretel ID = [id number] for RADHA DE LOS SANTOS PROTHROMBIN [id number] 11:08:00 Test Item Value Reference Range Interpretation [...] INR is2.5-3.5 for patients wiht mechanical heart valves.[id number] 09:19:00 Test Item Value Reference Range Interpretation Comments PARTIAL THROMBOPLASTIN TIME 37.6 seconds 22.5-36.0 H (BEAKER) (test code = 760) POCT-GLUCOSE [id number] 06:49:00 Test Item Value Reference Range Interpretation Comments POC-GLUCOSE METER 110 mg/dL 70-110 : [facility] (BEAKER) (test code = [place]ERTO [place], 1538) [address]: Preservative Filler Machine Operator/Techni gretel ID = [id number] for MASON PHELPS BASIC METABOLIC [id number] 05:59:00 Test Item Value Reference Range Interpretation [...] S NOT APPLICABLE FOR DIALYSIS PATIEN TS. 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 Post Drug Results: Lower PRU levels are associated with expected antiplatelet effect. Values may be below the stated reference range above. The post-drug PRU values reported in the [employer] P2Y12 package insert are 18-435.POCT-ASPIRIN PLATELET [id number] 05:34:00 Test Item Value Reference Range Interpretation Comments POC-ASPIRIN PLATELET AGG (BEAKER) 564 ARU (test code = 2302) RANGE INFORMATION: 350-549 ARU Therapeutic range for platelet function. 550-700 ARU Non-Therapeutic range for platelet function.[id number] 05:34:00 Test Item Value Reference Range Interpretation [...] WBC 0-0 (BEAKER) (test code = 413) [id number] 02:03:00 Test Item Value Reference Range Interpretation Comments PARTIAL THROMBOPLASTIN TIME 35.8 seconds 22.5-36.0 (BEAKER) (test code = 760) 6 hours after starting heparin infusion and as indicated per sliding scalePOCT- GLUCOSE [id number] 00:00:00 Test Item Value Reference Range Interpretation Comments POC-GLUCOSE METER 109 mg/dL 70-110 : TESTED A T [facility] 6720 (GIFTY) (test code = HUMBERTO Mackenzie [facility], 1538) [address]: Preservative Filler Machine Operator/Techni gretel ID = [id number] for MASON PHELPS POCT-GLUCOSE [id number] 18:48:00 Test Item Value Reference Range Interpretation Comments POC-GLUCOSE METER 148 mg/dL 70-110 H : Notified RN/MD: (GIFTY) (test code = TESTED AT [facility] 6720 1538) CARL[facility] ALBERTO [facility], [address]: Preservative Filler Machine Operator/Techni gretel ID = [id number] for MIKE STEWART DIMAS, ANGIOGRAM, [id number] 16:45:00Reason for exam:->basilar tip aneurysmFINAL REPORT Date [...] guidance and strict sterile technique a 4 Indonesian femoral sheath was inserted into the right radial artery. Through the sheath a 4 Indonesian Weaver catheter was then advanced over the [...] mm basilar apex aneurysm. Signed: Khai Carrasco Verified Date/Time: 05/16/2019 16:45:20 Reading Location: [facility] B1 Y018 Neuro Angio Reading Room POCT-GLUCOSE [id number] 13:41:00 Test Item Value Reference Range Interpretation Comments POC-GLUCOSE METER 120 mg/dL 70-110 H : TESTED A T [facility] 6720 (BEAKER) (test code = HUMBERTO [place], 1538) [address]: Preservative Filler Machine Operator/Techni gretel ID = [id number] for ESVIN LAMBERT [id number] 09:24:00 Test Item Value Reference Range Interpretation [...] WBC 0-0 (BEAKER) (test code = 413) [id number] 03:01:00 Test Item Value Reference Range Interpretation [...] heart valves.Prior to initiating heparinPrior to initiating [id number] 03:01:00 Test Item Value Reference Range Interpretation Comments PARTIAL THROMBOPLASTIN TIME 32.2 seconds 22.5-36.0 (BEAKER) (test code = 760) BASIC METABOLIC [id number] 02:58:00 Test Item Value Reference Range Interpretation [...] S NOT APPLICABLE FOR DIALYSIS PATIEN TS. Preservative Filler Machine Operator ID - TERRI MPLATELET [id number] 02:45:00 Test Item Value Reference Range Interpretation Comments PLATELET COUNT (BEAKER) (test 231 K/CU MM 150-450 code = 756) Preservative Filler Machine Operator ID - [id number], CEREBRAL PERFUSION [id number] 01:22:00FINAL REPORT CT cerebral perfusion analysis. Comparison: [...] Fabiano Montoya MDReport Verified Date/Time: 05/16/2019 01:22:48 . [facility] [id number] 01:09:00 FINAL REPORT EXAM: CT, CT Angio, [...] at approximately 1:05 AM 05/16/2019. Signed: Fabiano Montoyaeport Verified Date/Time: 05/16/2019 01:09:25 [facility], CAROTID, ANGIO 2019-05-16 01:09:00FINAL REPORT EXAM: CT, [...] Signed: Fabiano Montoya Verified Date/Time: 05/16/2019 01:09:25 [facility], BRAIN/STROKE PROTOCOL 2019-05-15 23:34:00FINAL REPORT EXAM: CT [...] Fabiano Montoya Verified Date/Time: 05/15/2019 23:34:22 POCT-GLUCOSE [id number] 20:57:00 Test Item Value Reference Range Interpretation Comments POC-GLUCOSE METER 119 mg/dL 70-110 H : TESTED A T [facility] 6720 (BEAKER) (test code = [facility], 1538) [address]: Preservative Filler Machine Operator/Techni gretel ID = [id number] for CARLINE HARDING PROTHROMBIN [id number] 19:47:00 Test Item Value Reference Range Interpretation [...] is2.5-3.5 for patients wiht mechanical heart valves.POCT-GLUCOSE [id number] 17:51:00 Test Item Value Reference Range Interpretation Comments POC-GLUCOSE METER 125 mg/dL 70-110 H : TESTED A T [facility] 6720 (BEAKER) (test code = [facility], 1538) [address]: Preservative Filler Machine Operator/Techni gretel ID = [id number] for BR OWN, MARIA DEL CARMEN POCT-GLUCOSE [id number] 11:55:00 Test Item Value Reference Range Interpretation Comments POC-GLUCOSE METER 169 mg/dL 70-110 H : TESTED A T [facility] 6720 (BEAKER) (test code = [facility], 1538) [address]: Preservative Filler Machine Operator/Techni gretel ID = [id number] for BR OWN, MARIA DEL CARMEN HEMOGLOBIN [id number] 10:46:00 Test Item Value Reference Range Interpretation Comments HEMOGLOBIN A1C (BEAKER) (test code = 5.8 % 4.3-6.1 368) POCT-GLUCOSE [id number] 08:50:00 Test Item Value Reference Range Interpretation Comments POC-GLUCOSE METER 134 mg/dL 70-110 H : TESTED A T [facility] 6720 (BEAKER) (test code = [facility], 1538) [address]: Preservative Filler Machine Operator/Techni gretel ID = [id number] for BR OWN, MARIA DEL CARMEN VITAMIN B12 AND [id number] 07:44:00 Test Item Value Reference Range Interpretation Comments VITAMIN B12 (BEAKER) (test code = 472 pg/mL 213-816 774) FOLATE (BEAKER) (test code = 362) 19.4 ng/mL >=7.0 Preservative Filler Machine Operator ID - MALOU FPOCT-GLUCOSE [id number] 06:57:00 Test Item Value Reference Range Interpretation Comments POC-GLUCOSE METER 114 mg/dL 70-110 H : TESTED A T [facility] 6720 (BEAKER) (test code = HUMBERTO Mackenzie [place], 1538) [address]: Preservative Filler Machine Operator/Techni gretel ID = [id number] for DE [place], MALIHA LIPID [id number] 06:53:00 Test Item Value Reference Range Interpretation [...] Borderline 130-159 High 160-189 Very High >=190 Preservative Filler Machine Operator ID - MARITZALBASIC METABOLIC [id number] 06:53:00 Test Item Value Reference Range Interpretation [...] S NOT APPLICABLE FOR DIALYSIS PATIEN TS. Preservative Filler Machine Operator ID - PIAYA LCBC (HEMOGRAM ONLY)2019-05-15 [...] (test code = 413) MR, BRAIN, WITHOUT [id number] 04:06:00FINAL REPORT EXAM: MR, BRAIN, WITHOUT CONTRAST [...] Rosario MDReport Verified Date/Time: 05/15/2019 04:06:56 POCT-GLUCOSE [id number] 21:18:00 Test Item Value Reference Range Interpretation Comments POC-GLUCOSE METER 95 mg/dL 70-110 : TESTED A T [facility] 6720 (BEAKER) (test code = HUMBERTO Mackenzie [facility], 1538) [address]: Preservative Filler Machine Operator/Techni gretel ID = [id number] for PETEBan ORVILLEMALIHA BASIC METABOLIC [id number] 14:37:00 Test Item Value Reference Range Interpretation [...] APPLICABLE FOR DIALYSIS PATIEN TS. BASIC METABOLIC [id number] 13:34:00 Test Item Value Reference Range Interpretation [...] S NOT APPLICABLE FOR DIALYSIS PATIEN TS. [id number] 12:49:00 Test Item Value Reference Range Interpretation [...] mechanical heart valves.CBC W/PLT COUNT & AUTO [id number] 12:48:00 Test Item Value Reference Range Interpretation [...]
--- NOTE | 2020-07-28 12:28 | EDPHYS ---
Physician Documentation [facility] Name: Bharati Lancaster Age: 80 yrs Sex: Female : 1940 Arrival Date: 07/28/2020 Time: 11:01 Bed 13 Private MD: KATARZYNA Physician Matt Blackburn HPI: 07/28 13:09 This 80 yrs old Female presents to ER via Wheelchair with complaints of kb Shoulder Pain. 13:09 The patient or guardian complains of decreased range of motion, pain, that is acute, kb tenderness. left shoulder. Context: The problem was sustained at home, resulted from an unknown reason, The patient experiences decreased range of motion, The patient reports no obvious deformity. Onset: The symptoms/episode began/occurred yesterday. Modifying factors: the symptoms are alleviated by nothing. The symptoms are aggravated by movement. Associated signs and symptoms: The patient has no apparent associated signs or symptoms. Severity of symptoms: At their worst the symptoms were moderate, in the emergency department the symptoms are unchanged. Treatment prior to arrival includes: no previous treatment. The patient has not experienced similar symptoms in the past. The patient has not recently seen a physician. Historical: - Allergies: 11:20 Codeine; jd3 11:20 Morphine; jd3 11:20 Propoxyphene N-Acetaminophen; jd3 11:20 Hydrocodone-Acetaminophen; jd3 11:20 codeine sulfate; jd3 11:20 Demerol; jd3 11:20 BACLOFEN; jd3 11:20 plastic tape; jd3 11:20 Darvocet-N 100; jd3 11:20 CYCLOBENZAPRINE; jd3 11:20 ceftriaxone; jd3 11:20 PENICILLINS; jd3 11:20 Tape; jd3 - Home Meds: 11:20 allopurinol 100 mg Oral tab 1 tab once daily [Active]; aspirin 81 mg Oral TbEC jd3 [Active]; atorvastatin 80 mg Oral tab 1 tab once daily [Active]; clonidine HCl 0.1 mg oral tab [Active]; colchicine 0.6 mg Oral cap [Active]; levothyroxine 50 mcg tab 1 tab once daily [Active]; magnesium oxide 400 mg Oral tab [Active]; metoprolol tartrate 25 mg Oral tab [Active]; pantoprazole 40 mg oral TbEC [Active]; Triamcinolone Acetonide Topical [Active]; - PMHx: 11:20 Cervical radicular pain; CHF; Degenative join disease; Diabetes - NIDDM; DVT; GERD; jd3 Gout; Hyperlipidemia; chronic kidney disease; Hypertension; Hypothyroidism; - Immunization history:: Adult Immunizations up to date, Harpreet and Harpreet 1 dose. - Social history:: Smoking status: Patient/guardian denies using tobacco, but has a distant history of tobacco abuse. ROS: 13:06 Constitutional: Negative for fever, chills, and weight loss, Cardiovascular: Negative kb for chest pain, palpitations, and edema, Respiratory: Negative for shortness of breath, cough, wheezing, and pleuritic chest pain, Skin: Negative for injury, rash, and discoloration, Neuro: Negative for headache, weakness, numbness, tingling, and seizure. 13:06 MS/extremity: Positive for decreased range of motion, pain, tenderness, of the posterior aspect of left shoulder. Exam: 13:06 Constitutional: This is a well developed, well nourished patient who is awake, alert, kb and in no acute distress. Head/Face: Normocephalic, atraumatic. Respiratory: Respirations even and unlabored. No increased work of breathing, no retractions or nasal flaring. Skin: Warm, dry with normal turgor. Normal color. Neuro: Awake and alert, GCS 15, oriented to person, place, time, and situation. Moves all extremities. Normal gait. 13:06 Musculoskeletal/extremity: Extremities: grossly normal except: noted in the posterior aspect of left shoulder: decreased ROM, pain, tenderness, ROM: limited active range of motion, limited active range of motion due to pain, Circulation is intact in all extremities. Sensation intact. Vital Signs: 11:20 BP 177 / 68; Pulse 80; Resp 17 S; Temp 98.5(TE); Pulse Ox 99% on R/A; Weight 72.57 kg jd3 (R); Height 5 ft. 6 in. (167.64 cm) (R); Pain 8/10; 11:20 Body Mass Index 25.82 (72.57 kg, 167.64 cm) jd3 MDM: 11:48 Patient medically screened. kb 12:45 Data reviewed: vital signs, nurses notes. Data interpreted: Pulse oximetry: on room air kb is 99 %. Interpretation: normal. Counseling: I had a detailed discussion with the patient and/or guardian regarding: the historical points, exam findings, and any diagnostic results supporting the discharge/admit diagnosis, radiology results, the need for outpatient follow up, a orthopedic surgeon, to return to the emergency department if symptoms worsen or persist or if there are any questions or concerns that arise at home. 07/28 12:47 Order name: Sling; Complete Time: 13:00 kb Administered Medications: 12:10 Drug: Tylenol 1000 mg Route: PO; zb 12:47 Follow up: Response: No adverse reaction zb 12:47 Drug: Zofran (Ondansetron) 4 mg Route: PO; zb 13:00 Follow up: Response: Nausea is decreased zb Disposition: 07/29 08:59 Co-signature as Attending Physician, Matt Blackburn MD I agree with the assessment and dudley plan of care. Disposition: 07/28/20 12:27 Discharged to Home. Impression: Pain in left shoulder. - Condition is Stable. - Discharge Instructions: Musculoskeletal Pain, Shoulder Pain, [id number]. - Medication Reconciliation Form, Thank You Letter, Antibiotic Education, Prescription Opioid Use form. - Follow up: Emergency Department; When: As needed; Reason: Worsening of condition. Follow up: Private Physician; When: 2 - 3 days; Reason: Recheck today's complaints, Continuance of care, Re-evaluation by your physician. Signatures: Dispatcher [employer] EDAlesha Boss, ESTHETICIAN/SKIN THERAPIST-C ESTHETICIAN/SKIN THERAPIST-Ckb Matt Blackburn MD MD cha Davies, Jonathon, RN RN jd3 Brown, Zipporah, RN RN zb Corrections: (The following items were deleted from the chart) 07/28 13:01 12:27 07/28/2020 12:27 Discharged to Home. Impression: Pain in left shoulder. Condition zb is Stable. Forms are Medication Reconciliation Form, Thank You Letter, Antibiotic Education, Prescription Opioid Use. Follow up: Emergency Department; When: As needed; Reason: Worsening of condition. Follow up: Private Physician; When: 2 - 3 days; Reason: Recheck today's complaints, Continuance of care, Re-evaluation by your physician. kb
--- NOTE | 2020-07-28 12:28 | ER ---
Nurse's Notes [facility] Name: Bharati Lancaster Age: 80 yrs Sex: Female : 1940 Arrival Date: 07/28/2020 Time: 11:01 Bed 13 Private MD: Diagnosis: Pain in left shoulder Presentation: 07/28 11:11 Chief complaint: Patient's son or daughter states: adult child: "she is on [facility]. jd3 yesterday she was fine, but today when she woke up she was having pretty bad left arm pain especially when moving it. the pain radiates up into the shoulder and neck causing her to not want to move that arm.". Coronavirus screen: At this time, the client does not indicate any symptoms associated with coronavirus-19. Ebola Screen: Patient negative for fever greater than or equal to 101.5 degrees Fahrenheit, and additional compatible Ebola Virus Disease symptoms. Initial Sepsis Screen: Does the patient meet any 2 criteria? No. Patient's initial sepsis screen is negative. Does the patient have a suspected source of infection? No. Patient's initial sepsis screen is negative. Risk Assessment: Do you want to hurt yourself or someone else? Patient reports no desire to harm self or others. Onset of symptoms was July 28, 2020. 11:11 Method Of Arrival: Wheelchair jd3 11:11 Acuity: GONZALEZ 4 jd3 Historical: - Allergies: 11:20 Codeine; jd3 11:20 Morphine; jd3 11:20 Propoxyphene N-Acetaminophen; jd3 11:20 Hydrocodone-Acetaminophen; jd3 11:20 codeine sulfate; jd3 11:20 Demerol; jd3 11:20 BACLOFEN; jd3 11:20 plastic tape; jd3 11:20 Darvocet-N 100; jd3 11:20 CYCLOBENZAPRINE; jd3 11:20 ceftriaxone; jd3 11:20 PENICILLINS; jd3 11:20 Tape; jd3 - Home Meds: 11:20 allopurinol 100 mg Oral tab 1 tab once daily [Active]; aspirin 81 mg Oral TbEC jd3 [Active]; atorvastatin 80 mg Oral tab 1 tab once daily [Active]; clonidine HCl 0.1 mg oral tab [Active]; colchicine 0.6 mg Oral cap [Active]; levothyroxine 50 mcg tab 1 tab once daily [Active]; magnesium oxide 400 mg Oral tab [Active]; metoprolol tartrate 25 mg Oral tab [Active]; pantoprazole 40 mg oral TbEC [Active]; Triamcinolone Acetonide Topical [Active]; - PMHx: 11:20 Cervical radicular pain; CHF; Degenative join disease; Diabetes - NIDDM; DVT; GERD; jd3 Gout; Hyperlipidemia; chronic kidney disease; Hypertension; Hypothyroidism; - Immunization history:: Adult Immunizations up to date, Harpreet and Harpreet 1 dose. - Social history:: Smoking status: Patient/guardian denies using tobacco, but has a distant history of tobacco abuse. Screenin:21 Abuse screen: Denies threats or abuse. Denies injuries from another. Nutritional zb screening: No deficits noted. Tuberculosis screening: No symptoms or risk factors identified. Fall Risk Fall in past 12 months (25 points). Secondary diagnosis (15 points) impaired mobility, No IV (0 pts). Ambulatory Aid- None/Bed Rest/Nurse Assist (0 pts). Gait- Weak (10 pts.). Mental Status- Oriented to own ability (0 pts). Total Lee Fall Scale indicates High Risk Score (45 or more points). Fall prevention measures have been instituted. Frequent Obs/Assessments Occuring Family Present and informed to notify staff if the need to leave the bedside As available patient and family educated on Fall Prevention Program and Strategies. Assessment: 12:13 General: Appears in no apparent distress. uncomfortable, Behavior is calm, cooperative, zb appropriate for age. Pain: Complains of pain in left arm Pain radiates to posterior aspect of left shoulder Pain currently is 8 out of 10 on a pain scale. Alleviated by nothing. Neuro: Level of Consciousness is awake, alert, obeys commands, Oriented to person, place, time, situation. Cardiovascular: Patient's skin is warm and dry. Respiratory: Airway is patent Respiratory effort is even, unlabored, Respiratory pattern is regular, symmetrical. GI: Abdomen is round. Derm: Skin is intact. Musculoskeletal: Range of motion: limited in left shoulder. 13:00 Reassessment: Patient appears in no apparent distress at this time. Patient and/or zb family updated on plan of care and expected duration. Pain level reassessed. Patient is alert, oriented x 3, equal unlabored respirations, skin warm/dry/pink. d/c instructions given. sling applied for comfort. nausea decrease. patient wheeled by daughter out. Vital Signs: 11:20 BP 177 / 68; Pulse 80; Resp 17 S; Temp 98.5(TE); Pulse Ox 99% on R/A; Weight 72.57 kg jd3 (R); Height 5 ft. 6 in. (167.64 cm) (R); Pain 8/10; 11:20 Body Mass Index 25.82 (72.57 kg, 167.64 cm) [facility] ED Course: 11:01 Patient arrived in ED. as 11:13 Triage completed. jd3 11:24 Arm band placed on. jd3 11:47 Alesha Travis FNP-C is [facility]. kb 11:47 Matt Blackburn MD is Attending Physician. kb 12:09 Emi Carbajal RN is Primary Nurse. zb 12:11 Humerus Left XRAY In Process Unspecified. EDMS 12:24 Patient has correct armband on for positive identification. Bed in low position. Call zb light in reach. Adult w/ patient. Pulse ox on. NIBP on. Door closed. Noise minimized. Warm blanket given. 13:01 No provider procedures requiring assistance completed. Patient did not have IV access zb during this emergency room visit. 13:21 Humerus Left XRAY In Process Unspecified. EDMS Administered Medications: 12:10 Drug: Tylenol 1000 mg Route: PO; zb 12:47 Follow up: Response: No adverse reaction zb 12:47 Drug: Zofran (Ondansetron) 4 mg Route: PO; zb 13:00 Follow up: Response: Nausea is decreased zb Outcome: 12:27 Discharge ordered by . kb 13:01 Discharged to home via wheelchair, with family. zb 13:01 Condition: stable 13:01 Discharge instructions given to patient, family, Instructed on discharge instructions, follow up and referral plans. Demonstrated understanding of instructions, follow-up care. 13:01 Patient left the ED. zb Signatures: Dispatcher [employer] EDMS Alesha Travis FNP-C FNP-Ckb Martinez, Amelia as Davies, Jonathon, RN RN jEmi Mcdaniels RN RN zb Corrections: (The following items were deleted from the chart) 11:24 11:20 Pulse 80bpm; Resp 17bpm; Spontaneous; Pulse Ox 99% RA; Temp 98.5F Temporal; 72.57 jd3 kg Reported; Height 5 ft. 6 in. Reported; BMI: 25.8; Pain 8/10; jd3
[2020-07-28] MEDS ORDERED: ACETAMINOPHEN 500 MG TAB ONE (12:29)
--- NOTE | 2020-07-28 12:41 | RAD REPORT ---
EXAM DESCRIPTION: RAD - Humerus Left - 07/28/2020 12:11 pm CLINICAL HISTORY: Left arm pain FINDINGS: The distal aspect of the left humerus is not included in the field of view and is not eval uated. No fracture is seen involving the mid and proximal left humerus. No bony lesion is visualized. 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
[2020-07-28] MEDS ORDERED: ONDANSETRON 4 MG (ODT) TAB ONE (13:04)
[2020-07-28 13:09] VITALS: BP 177/68; TEMP 98.5; O2SAT 99
== END 2020-07-28 13:01 | disposition home or self-care (01) ==
LOC: ER 10:58
DX: M25.512 Pain in left shoulder (principal); E11.22 Type 2 diabetes mellitus with diabetic chronic kidney disease; I13.0 Hypertensive heart and chronic kidney disease with heart failure and stage 1 through stage 4 chronic kidney disease, or unspecified chronic kidney disease; N18.9 Chronic kidney disease, unspecified; I50.9 Heart failure, unspecified; Z79.82 Long term (current) use of aspirin; Z88.0 Allergy status to penicillin; Z88.1 Allergy status to other antibiotic agents; Z88.5 Allergy status to narcotic agent; Z88.8 Allergy status to other drugs, medicaments and biological substances; Z91.048 Other nonmedicinal substance allergy status
CPT/HCPCS: 99283

== ENCOUNTER 2020-08-09 19:47 | Emergency (ER) | payer OTHER ==
--- OUTSIDE RECORDS SUMMARY | 2020-08-09 19:51 | XMS REPORT | Continuity of Care Document ---
:1940 Author Organization [facility] t Address [address] [place] [address] Care Team Providers Name Role Phone Selene Aaron Primary Care Physician Doctor Unassigned, Name Attending Clinician Unavailable Anna CM, A Attending Clinician Unavailable Cal DOHERTY Attending Clinician Debra DOHERTY Attending Clinician Portillo Jimenez DO Attending Clinician Semaj Horne MD Attending Clinician Darius DOHERTY Attending Clinician Janay Ye MD Attending Clinician Lionel Kwok MD Attending Clinician India Carrasco MD Attending Clinician Unknown Attending Clinician Unavailable Pob, Lab Main Attending Clinician Unavailable [facility] Attending Clinician Unavailable Vls-Lab Attending Clinician Unavailable Only, Test Attending Clinician Unavailable India Carrasco MD Attending Clinician Unavailable INDIA CARRASCO Attending Clinician Unavailable Katya DOHERTY, Maria Luz Attending Clinician Claudia Mora Attending Clinician Unavailable DALE FLORES Attending Clinician Unavailable Debra DOHERTY Admitting Clinician Jose Palma MD Admitting Clinician India Carrasco MD Admitting Clinician SHALONDA Admitting Clinician Unavailable INDIA CARRASCO Admitting Clinician Unavailable Payers Payer Name Policy Type Policy Effective Date Expiration Date Sour ce Number HUMANEva - MEDICARE [id number] [facility] MGD CAREHUSABRINAA 00:00:00 - Medical MEDICARE Center [id number]/[id number] 019-PresentMaps Contracted Problems Condition Condition Condition Status Onset Resolution Last Treating Co mments Source Name Details Category Date Date Treatment Clinician Date Acute Acute Disease Active 2020-[address] [facility] blood loss blood loss 2- Ella kes - anemia anemia 00:00: Medical 00 [place] Gout flare Gout flare Disease Active 2020-[address] [facility] - [facility]: Medical 00 [place] COPD COPD Disease Active 2020-[address] [facility] (chronic (chronic 2 [facility] - obstructiv obstructiv 00:00: Me dical e e 00 Center pulmonary pulmonary disease) disease) Gastroesop Gastroesop Disease Active 2020-[address] hageal hageal 2 [facility] - reflux reflux 00:00: Medical disease disease 00 Center with with esophagiti esophagiti s s HLD HLD Disease Active 2020-[address] [facility] (hyperlipi (hyperlipi 2- Ella kes - demia) demia) 00:00: Medical 00 Center Hypothyroi Hypothyroi Disease Active 2020-[address] dism dism 2 [facility] - 00:[facility]: Medical 00 Center Coagulopat Coagulopat Disease Active 2020-[address] hy hy 2 [facility] - 00:00: Medical 00 Center 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 00:00: Medica l 00 Center Cerebral Cerebral Disease Active 2020-0 [facility] hypoperfus hypoperfus 2-05 [facility] - ion ion 00:00: Medical 00 Center Hypertensi Hypertensi Disease Active 2020-[address] ve crisis ve crisis 2-05 [facility] - 00:00: Medical 00 Center Atrial Atrial Disease Active 2020-[address] [facility] fibrillati fibrillati 2-04 [facility] - on on 00:00: Medical 00 Center Hypertensi Hypertensi Disease Active 2020-[address] on on 2-04 [facility] - 00:00: Medical 00 [place] Carotid Carotid Disease Active [facility] stenosis, stenosis, 2-04 [facility] - left left 00:00: Medical 00 [place] Acute Acute Disease Active [facility] ischemic ischemic 2-03 [facility] - stroke stroke 00:00: Medical 00 [place] RUE RUE Disease Active [facility] weakness weakness 2-02 [facility] - 00:00: Medical 00 Center Allergies, Adverse Reactions, Alerts Allergy Allergy Status Severity Reaction(s) Onset Inactive Treating Comm ents Source Name Type Date Date Clinician Meperidi Propensi Active Nausea And Per [facility] to Vomiting 2- daughter [facility] - adverse 00:00: Medical reaction 00 [place] Amlodipi Propensi Active 2018-[address] ne ty to 2- [facility] - adverse 00:00: Medical reaction 00 [place] Hydrocod Propensi Active 2018-[address] one-Acet ty to 2- [facility] - aminophe adverse 00:00: Medical n reaction 00 [place] Morphine Propensi Active 2018-[address] ty to 2- [facility] - adverse 00:00: Medical reaction 00 [place] Baclofen Propensi Active Other (See 2016-[address] ty to Comments) 2- [facility] - adverse 00:00: Medical reaction 00 [place] Propoxyp Propensi Active Nausea And 2016-[address] hene ty to Vomiting 2-25 [facility] - Napsylat adverse 00:00: Medical e reaction 00 [place] Cycloben Propensi Active Nausea And 2015-[address] zaprine ty to Vomiting 2- [facility] - adverse 00:00: Medical reaction 00 Center s Codeine Propensi Active Nausea And 2015-[address] [facility] ty to Vomiting, 2-20 [facility] - adverse Palpitations 00:00: Med ical reaction , Hives 00 [place] Social History Social Habit Start Date Stop Date Quantity Comments Source History of tobacco Current smoker [facility] use Medical Center History SDOH [facility] - Alcohol Std Drinks [facility] History SDOH [facility] - Alcohol Binge Medical Carolee ter Sex Assigned At [facility] Cigarettes smoked 2019-08-30 2019-08-30 [facility] - current (pack per 00:00:00 00:00:00 Medical Center day) - Reported Tobacco use and 2019-08-30 2019-08-30 Never used XOCHITL Moraes [facility] kes - exposure 00:00:00 00:00:00 [facility] Alcohol intake 2019-08-30 2019-08-30 Current [facility] - 00:00:00 00:00:00 non-drinker of Medical Ce nter alcohol (finding) History SDOH 2019-03-31 2019-03-31 1 [facility] Frequency 00:00:00 00:00:00 [facility] Smoking Status Start Date Stop Date Source Former smoker 2019-08-30 00:00:00 2019-08-30 00:00:[address] [facility] Medications Ordered Filled Start Stop Current Ordering Indication Dosage Frequency Signature Comments Components Source Medication Medication Date Date Medication? Clinician (SIG) Name Name aspirin 325 2019-0 Yes 325mg QD Take [address] MG tablet 5-27 mg by [facility] - 10:35: mouth Medical 24 daily. [place] ticagrelor Yes 90mg Q.5D Take [address] (BRILINTA) 5-27 by mouth 2 Marc es - 90 mg Tab 10:35: (two) Medical tablet 24 times Center daily. torsemide 0 Yes 20mg QD Take [address] (DEMADEX) 5-20 by mouth [facility]ukes - 20 MG 09:36: daily. Medical tablet 26 [place] azilsartan 0 Yes 80mg QD Take [address] medoxomil 5-20 by mouth [facility] - (EDARBI) 80 09:31: daily . Med ical mg Tab 59 Center ranitidine 0 Yes 150mg QD Take [address] (ZANTAC) 5-20 mg by [facility]ukes - 150 MG 09:31: mouth Medical capsule 59 every Center evening . torsemide 0 2020- No 20mg QD Take [address] (DEMADEX) 5-20 05-20 by mouth [facility] - 10 MG 09:31: 00:00 daily . Medical tablet 57 :00 [place] rivaroxaban 0 2020- No 20mg Take [address] [facility] [...] 17 needed. Center gabapentin 2020-0 Yes 300mg Q.[id number] Take [address] (NEURONTIN) 2-17 [id number] mg by L ukes - 300 MG [...] morning on tablet an empty stomach. hydrALAZINE Yes 100mg Q.[id number] Take [address] (APRESOLINE -17 [id number] tablet [facility]ukes - ) 100 MG 00:00: 3D (100 mg Medica l tablet 00 total) by Center mouth 3 (three) times daily. melatonin Yes 10mg QD Take [address] 10 mg Tab 17 by mouth [facility]ukes - 00:00: nightly. Medical 00 Center pantoprazol 2019- Yes 40mg QD Take [address] e 2-17 tablet (40 [facility] - (PROTONIX) 00:00: mg total) Me dical 40 MG 00 by mouth Center tablet daily. cloNIDine 2020- No .2mg QD Take 1 [facility] t HCl 05-29 tablet [facility] - (CATAPRES) 00:00: 23:59 (0.2 mg Med ical 0.2 MG 00 :00 total) by Center tablet mouth nightly. atorvastati 2020- No 80mg QD Take [address] n (LIPITOR) 05-29 tablet (80 L ukes - 80 MG [...] 325mg Take [address] sulfate 325 05-29-20 tablet [facility]ukes - (65 FE) MG 00:00: 00:00 (325 mg Med ical tablet 00 :00 total) by Center mouth 2 (two) times daily with breakfast and dinner. senna 2019- No 8.6mg QD Take [address] (SENOKOT) 05-29 05-20 tablet [facility] - 8.6 mg 00:00: 00:00 (8.6 mg Medical tablet 00 :00 total) by Center mouth nightly. Vital Signs Vital Name Observation Time Observation Value Comments Source Systolic blood 2019-09-06 11:36:00 110 mm[Hg] [facility] pressure [facility] Diastolic blood 2019-09-06 11:36:00 65 mm[Hg] [facility] S [facility] Heart rate 2019-09-06 11:36:00 62 /min [facility] Body temperature 2019-09-06 11:36:[address] [facility] Respiratory rate 2019-09-06 11:36:00 20 /min [facility] Oxygen saturation in 2019-09-06 11:36:00 96 /min [facility] Arterial blood by Medical Ce nter Pulse oximetry Body height 2019-08-30 09:30:00 167.6 cm [facility] Body weight 2019-08-30 09:30:00 90.719 kg [facility] BMI 2019-08-30 09:30:00 32.28 kg/m2 [facility] Procedures Procedure Date / Time Performed Performing Clinician [facility] e TRANSFUSION SERVICE 2019-09-07 17:53:54 Provider, Default [facility] REPORT - SCAN Scanning [facility] SARS-COV2/RT-PCR ([facility] & 2019-09-07 00:01:00 [facility] REF LABS) [facility] ECG 12-LEAD 2019-09-06 09:35:[address] [facility] POCT-P2Y12 PLATELET 2019-09-06 09:34:00 Livia Mora [facility] AGGREGATION [facility] POCT-ASPIRIN PLATELET 2019-09-06 09:34:[address] [facility] AGGREGATION [facility] BASIC METABOLIC PANEL 2019-09-06 09:34:[address] [facility] (7) [facility] TYPE AND SCREEN, 2019-09-06 09:33:00 Livia Mora [facility] AUTOMATED [facility] CBC W/PLT COUNT & AUTO 2019-09-06 09:33[facility]00 [facility] PT/APTT 2019-09-06 09:33:[address] [facility] Plan of Care Planned Activity Planned Date Details Comments Source Future Scheduled 2020-04-[address] [facility] - Test 00:00:00 (12+) [code = [facility] DEPRESSION SCREENING (12+)] Future Scheduled 2019-12-[address] [facility] - Test 00:00:00 (#1) [code = [facility] INFLUENZA VACCINE (#1)] Future Scheduled 2019-04-[address] [facility] - Test 00:00:00 WELLNESS (YEAR 2 or Medical Center FIRST YEAR if no IPPE) [code = MEDICARE ANNUAL WELLNESS (YEAR 2 or FIRST YEAR if no IPPE)] Encounters Start End Encounter Admission Attending Care Care Encounter Source Date/Time Date/Time Type Type Clinicians Facility Department ID 2020-05-07 2020-05-07 Orders Doctor SHILPA [id number] 00:00:00 00:00:00 Only Unassigned, CLIVE [id number] [place] [facility] 4.2.7.2.686 [id number] 2020-05-03 2020-05-03 Transition Jaz Castillo 1.2.840.114 [id number] 00:00:00 00:00:00 of Care Ermias Ly [id number] [place] 4.2.7.2.686 [id number] 2020-04-26 2020-05-02 [facility] Zachary Mccall [facility] 1.2.840 .114 [id number] 19:53:00 21:15:00 Encounter Ezzo, [facility] Health [id number] [place] 4.2.7.2.686 [place] [id number] Hospital 109 ([facility]) 2020-04-19 2020-04-19 Transition Jaz Castillo 1.2.840.114 [id number] 00:00:00 00:00:00 of Care Ermias Ly [id number] [place] 4.2.7.2.686 [id number] 2020-04-19 2020-04-19 Patient Tony KSJAYESH 1.2.840.114 [id number] 00:00:00 00:00:00 Outreach Rojelio PRIMARY [id number] [place] [facility] 4.2.7.2.686 [place] [id number] 2020-03-25 2020-04-18 [facility] Kirsten Horne 1.2.8 40.114 [id number] 20:15:00 20:11:00 Encounter Mccoy Fred Clive [id number] [facility] 4.2.7.2.686 [id number] 2020-04-02 2020-04-02 [facility]-CLIN 1.2.840.114 [id number] 16:49:00 17:43:00 Abhinavcynthia MEEHAN 350.1.13.10 SCIENCES 4.2.7.2.686 BLDG [id number] 2020-03-25 2020-03-25 Telephone Khai Carrasco [facility] 1.2.840.114 [id number] 00:00:00 00:00:00 [facility] [id number] Clear 4.2.7.2.686 Guerra [id number] Medical [address] 2020-01-25 2020-01-25 Transition AnnaAtif blackrafael 1.2.840.114 [id number] 00:00:00 00:00:00 of Care Ermias Ly 350.1.13.10 [place] 4.2.7.2.686 [id number] 2020-01-23 2020-01-24 Hospital Unknown, Attending [facility] 1.2.84 0.114 [id number] 10:26:00 11:59:00 Encounter Khai Carrasco [facility] 350.1.13. 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 Alicia, [facility] 1.2.840.114 [id number] 12:34:09 12:49:09 Visit Lab Main [place] 350.1.13.10 [place] 4.2.7.2.686 [facility] [id number] [address] 2020-01-22 2020-01-22 Orders Doctor SHILPA 1.2.840.114 [id number] 00:00:00 00:00:00 Only Unassigned, CLIVE 350.1.13.10 [place] [facility] 4.2.7.2.686 [id number] 2020-01-17 2020-01-17 Gang 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 Operator [facility]IT 1.2.840.114 [id number] 08:19:12 08:49:12 Visit HEALTH 350.1.13.10 CLINICS 4.2.7.2.686 [id number] 2020-01-15 2020-01-15 Gang Drill Operator Vls-Lab [facility] 1.2.840.114 [id number] 12:07:39 12:22:39 Visit SPECIALTY 350.1.13.10 CARE 4.2.7.2.686 [place] AT [id number] FRANCISCO JAVIER [address] [place] [address] 2020-01-15 2020-01-15 Laboratory Only, [facility] 1.2.840.114 [id number] 10:08:01 10:23:01 Only Test [place] 350.1.13.10 [place] 4.2.7.2.686 [place] [id number] [facility] 2020-01-15 2020-01-15 Orders Doctor SHILPA 1.2.840.114 [id number] 00:00:00 00:00:00 Only Unassigned, CLIVE 350.1.13.10 [place] [facility] 4.2.7.2.686 [id number] [id number] 2020-01-08 2020-01-08 Office Khai Carrasco [facility] 1.2.840.114 [id number] 10:52:01 16:03:43 Visit [facility] 350.1.13.10 [place] 4.2.7.2.686 [place] [id number] Medical [address] Results Test Description Test Time Test Comments Results Result [facility] e Comments ECG 12 lead 2019-08-12 Interface, External [facility] 8 Ris In - 09/07/2019 - Med ical 09:27:54 9:27 AM Center CDTVentricular Rate 89 BPMAtrial Rate 89 BPMP-R Interval 126 msQRS Duration 136 msQ-T Interval 424 msQTC Calculation(Bazett) 515 msP [place] 85 degreesR [place] -40 degreesT [place] 64 degreesNormal sinus rhythmLeft axis deviationLeft ventricular hypertrophy with QRS wideningRight bundle branch blockAbnormal ECGWhen compared with ECG of 31-MAR-2019 13:49,Right bundle branch block is no longer PresentConfirmed by MD Kimble Roberto ([id number]) on 09/07/2019 9:27:51 AM SARS-CoV2/RT-PCR ([facility] & Ref Labs) 2019-09-07 06:43:00 Test Item Value Reference Range Interpretation Comme nts SARS-COV2/RT-PCR (test code = Not Detected Not Detected, Negative 10316-4) SARS-COV-[address] [facility] (test code = 42358-0) JACI (test code = JACI) Negative results [...] of the Act. Fact Sheet for Healthcare Providers:https://www.[employer] .[employer]/Documents/Xpert%20Xpress %20SARS%20CoV-2/Fact%20Sheets /302-3802%58HQJL-IYR-8%20HEAL THCARE%20PROVIDERS%20FACT%20S HEET.pdf Fact Sheet for Healthcare Patients:https://www.[employer]/Documents/Xpert%20Xpress% 20SARS%20CoV-2/Fact%20Sheets/ 302-3801%13BPXX-NTD-1%20PATIE NT%20FACT%20SHEET.pdf Performing Laboratory:[facility] [address] [place] [address] [facility] ([facility] & REF LABS)2019-09-07 06:43:00 Test Item Value Reference Range Interpretation Comments SARS-COV2/RT-PCR (test Not Detected Not Detected, Negative code = 1307403) SARS-COV-[address] [facility] (test code = 2769358) Negative results do not preclude SARS-CoV-2 infection [...] of the Act.Fact Sheet for Healthcare Pro viders:https://www.[employer]/Documents/Xpert%20Xpress%20SARS%20CoV-2/Fact%20Sh eets/302-3802%51KJPK-YFH-0%20HEALTHCARE%20PROVIDERS%20FACT%20SHEET.pdfFact Sheet for Healthcare Patients:https://www.[address].com/Documents/Xpert%20Xpress%20SARS%20CoV-2/Fact%20Sheets/3023801%20SARS-COV -2%20PATIENT%20FACT%20SHEET.pdfPerforming Laboratory:[facility], [place] [id number] PLATELET AGGREGATION 2019-09-06 11:11:00 Test Item Value [...] the VerifyNow P2Y12 package insert are 18-435. [facility] PLATELET [id number] 11:11:00 Test Item Value Reference Range Interpretation Comments POC-P2Y12 PLATELET AGG (BEAKER) (test 79 PRU code = 2303) RANGE INFORMATION: PRU reference range is 194-418. Post Drug Results: Lower PRU levels are associated with expected antiplatelet effect. Values may be below the stated reference range above. The post-drug PRU values reported in the Ver[employer]Now P2Y12 package insert are 18-435.POCT-ASPIRIN PLATELET [id number] 11:08:00 Test Item Value Reference Range Interpretation Comments POC-Aspirin Plt Agg 385 ARU (test code = 2302) JACI (test code = RANGE INFORMATION: 350-549 JACI) ARU Therapeutic range for platelet function. 550-700 ARU Non-Therapeutic range for platelet function. [facility]ASPIRIN PLATELET [id number] 11:08:00 Test Item Value Reference Range Interpretation Comments POC-ASPIRIN PLATELET AGG (BEAKER) 385 ARU (test code = 2302) RANGE INFORMATION: 350-549 ARU Therapeutic range for platelet function. 550-700 ARU Non-Therapeutic range for platelet function.Type and screen, [id number] 10:37:00 Test Item Value Reference Range Interpretation Comments ABO/RH AUTOMATED (BEAKER) (test A POSITIVE code = 2260) Ab Scrn (test code = 890-4) NEGATIVE [facility] Metabolic [id number] 10:35:00 Test Item Value Reference Range Interpretation Comments Sodium (test code = 138 meq/L 830-363 4464-2) Potassium (test code = 5.4 meq/L 3.5-5.1 [...] Calcium (test code = 9.9 mg/dL 8.4-10.2 28897-7) EGFR (test code = 23 mL/min/1.73 [place] [address]-7) NOT ACCURATE CREATININE CLEARANCE IN PREDICTING GLOMERULAR FILTRATION RATE . ESTIMATED GFR I S NOT APPLICABLE FOR DIALYSIS PATIENTS. JACI (test code = JACI) Director Park ID - MALOU Raymond Lab Interpretation Abnormal (test code = 82467-3) [facility] METABOLIC [id number] 10:35:00 Test Item Value Reference Range Interpretation [...] mg/dL 8.4-10.2 (test code = 697) EGFR (GIFTY) (test 23 mL/min/1.73 ESTIMA LYN GFR IS code = 1092) sq m NOT ACCURATE CREATININE CLEARANCE IN PREDICTING GLOMERULAR FILTRATION RATE . ESTIMATED GFR I S NOT APPLICABLE FOR DIALYSIS PATIEN TS. Director Park ID - MALOU FCBC with platelet count + automated [id number] 10:33:00 Test Item Value Reference Range Interpretation Comments WBC (test code = 6690-2) 14.6 See_Comment H [A utomated message] The system [employer] generated this result transmitted ref erence range: 3.5 - 10 .5 K/L. The refe rence range was not u sed to interpret this result as normal/abnor mal. RBC (test code = 789-8) 3.55 See_Comment L [Au tomated message] The system [employer] generated this result transmitted ref erence range: 3.93 - 5 .22 M/L. The refe rence range was not u sed to interpret this result as normal/abnor mal. MCHC (test code = 786-4) 30.8 See_Comment L [A utomated message] The system [employer] generated this result transmitted ref erence range: 32.2 - 3 5.5 GM/DL. The refe rence range was not u sed to interpret this result as normal/abnor mal. Hematocrit (test code = 34.1 % 34.1-44.9 4544-3) MCV (test code = 787-2) 96.1 fL 79.4-94.8 H MCH (test code = 785-6) 29.6 pg 25.6-32.2 RDW (test code = 788-0) 14.0 % 11.7-14.4 Platelets (test code = 280 See_Comment [Aut omated message] 777-3) The system [employer] generated this result transmitted ref erence range: 150 - 45 0 K/CU MM. The referen ce range was not u sed to interpret this result as normal/abnor mal. MPV (test code = 11.0 fL 9.4-12.3 50435-9) nRBC (test code = 413) 0 See_Comment [Aut omated message] The system [employer] generated this result transmitted ref erence range: 0 - 0 /1 00 WBC. The refere nce range was not u sed to interpret this result as normal/abnor mal. % Neutros (test code = 75 % 429) % Lymphs (test code = 14 % 430) % Monos (test code = 6 % 431) % Eos (test code = 432) 4 % % Baso (test code = 437) 0 % # Neutros (test code = 11.01 See_Comment H [Aut omated message] 670) The system [employer] generated this result transmitted ref erence range: 1.56 - 6 .13 K/L. The refe rence range was not u sed to interpret this result as normal/abnor mal. # Lymphs (test code = 1.99 See_Comment [Auto mated message] 414) The system [employer] generated this result transmitted ref erence range: 1.18 - 3 .74 K/L. The refe rence range was not u sed to interpret this result as normal/abnor mal. # Monos (test code = 0.92 See_Comment H [Autom ated message] 415) The system [employer] generated this result transmitted ref erence range: 0.24 - 0 .36 K/L. The refe rence range was not u sed to interpret this result as normal/abnor mal. # Eos (test code = 416) 0.58 See_Comment H [Au tomated message] The system [employer] generated this result transmitted ref erence range: 0.04 - 0 .36 K/L. The refe rence range was not u sed to interpret this result as normal/abnor mal. # Baso (test code = 417) 0.04 See_Comment [A utomated message] The system [employer] generated this result transmitted ref erence range: 0.01 - 0 .08 K/L. The refe rence range was not u sed to interpret this result as normal/abnor mal. Immature 1 % 0-1 Granulocytes-Relative (test code = 2801) Lab Interpretation (test Abnormal code = 61211-6) [facility] W/PLT COUNT & AUTO [id number] 10:33:00 Test Item Value Reference Range Interpretation [...] 0-1 PERCENT (BEAKER) (test code = 2801) [id number] 10:12:00 Test Item Value Reference Interpretation Comments Range Protime (test code = 12.8 See_Comment [Autom ated 5902-2) message] The system which generated this result transmitted reference range : 11.9 - 14.2 seconds. The reference range was not used to interpret this result as normal/abnormal . INR (test code = 1.0 See_Comment [Automated 0211-6) message] The system which generated this result transmitted reference range : <=5.9. The reference range was not used to interpret this result as normal/abnormal . PTT (test code = 25.6 See_Comment [Automated 11743-9) message] The system which generated this result transmitted reference range : 22.5 - 36.0 seconds. The reference range was not used to interpret this result as normal/abnormal . JACI (test code = Effective 09/07/2018: JACI) PT Reference Range ChangeNew: 11.9-14.2 Previous: 11.7-14.7 RECOMMENDED COUMADIN/WARFARIN INR THERAPY RANGESSTANDARD DOSE: 2.0-3.0 Includes: PROPHYLAXIS for venous thrombosis, systemic embolization; TREATMENT for venous thrombosis and/or pulmonary embolus.HIGH RISK: Target INR is 2.5-3.5 for patients wiht mechanical heart valves. Lab Interpretation Normal (test code = 10303-5) [facility]/[id number] 10:12:00 Test Item Value Reference Range Interpretation [...] is2.5-3.5 for patients wiht mechanical heart valves.POCT-GLUCOSE [id number] 12:47:00 Test Item Value Reference Range Interpretation Comments POC-GLUCOSE METER 133 mg/dL 70-110 H : TESTED A T [facility] 6720 (BEAKER) (test code [facility], = 1538) [address]: Director Park/Techni gretel ID = [id number] for TSEG GAI, TSIGHEREDA POCT-GLUCOSE [id number] 07:59:00 Test Item Value Reference Range Interpretation Comments POC-GLUCOSE METER 125 mg/dL 70-110 H : TESTED A T [facility] 6720 (BEAKER) (test code [facility], = 1538) 03875: Director Park/Techni gretel ID = [id number] for TSEG GAI, TSIGHEREDA POCT-GLUCOSE [id number] 21:06:00 Test Item Value Reference Range Interpretation Comments POC-GLUCOSE METER 192 mg/dL 70-110 H : TESTED A T [facility] 6720 (BEAKER) (test code = [facility], 1538) 62147: Director Park/Techni gretel ID = [id number] for DE NNIS, MALIHA POCT-GLUCOSE [id number] 17:33:00 Test Item Value Reference Range Interpretation Comments POC-GLUCOSE METER 124 mg/dL 70-110 H : TESTED A T [facility] 6720 (BEAKER) (test code [facility], = 1538) 23312: Director Park/Techni gretel ID = [id number] for TSEG GAI, TSIGHEREDA POCT-GLUCOSE [id number] 11:50:00 Test Item Value Reference Range Interpretation Comments POC-GLUCOSE METER 102 mg/dL 70-110 : TESTED A T [facility] 6720 (BEAKER) (test code [facility], = 1538) 08666: Director Park/Techni gretel ID = [id number] for TSEG GAI, TSIGHEREDA POCT-GLUCOSE [id number] 07:44:00 Test Item Value Reference Range Interpretation Comments POC-GLUCOSE METER 96 mg/dL 70-110 : TESTED A T [facility] 6720 (BEAKER) (test code [facility], = 1538) 15891: Director Park/Techni gretel ID = [id number] for TSEG GAI, TSIGHEREDA POCT-GLUCOSE [id number] 22:28:00 Test Item Value Reference Range Interpretation Comments POC-GLUCOSE METER 201 mg/dL 70-110 H : Notified RN/MD: (GIFTY) (test code = TESTED AT [place] [address] 1538) [facility], 16161: Director Park/Techni gretel ID = [id number] for LATHBRIDGE, AMRITA ICE HEMOGLOBIN AND [id number] 11:01:00 Test Item Value Reference Range Interpretation Comments HEMOGLOBIN (BEAKER) (test code = 9.3 GM/DL 11.2-15.7 L 410) HEMATOCRIT (BEAKER) (test code = 28.8 % 34.1-44.9 L 411) Director Park ID - [id number]-GLUCOSE [id number] 23:42:00 Test Item Value Reference Range Interpretation Comments POC-GLUCOSE METER 158 mg/dL 70-110 H : Notified RN/MD: (GIFTY) (test code = TESTED AT [place] [id number] 1538) [facility], 75603: Director Park/Techni gretel ID = [id number] for LATHBRIDGE, AMRITA ICE POCT-GLUCOSE [id number] 12:06:00 Test Item Value Reference Range Interpretation Comments POC-GLUCOSE METER 157 mg/dL 70-110 H : TESTED A T [facility] 6720 ([facility]) (test code [facility], = 1538) 22785: Director Park/Techni gretel ID = [id number] for LIZ BRYAN [id number] 06:57:00 Test Item Value Reference Range Interpretation Comments MAGNESIUM (BEAKER) (test code = 1.7 mg/dL 1.6-2.6 627) Director Park ID - KEARA WBASIC METABOLIC [id number] 06:57:00 Test Item Value Reference Range Interpretation [...] S NOT APPLICABLE FOR DIALYSIS PATIEN TS. Director Park ID - KEARA WHEMOGLOBIN AND [id number] 05:42:00 Test Item Value Reference Range Interpretation Comments HEMOGLOBIN (BEAKER) (test code = 8.3 GM/DL 11.2-15.7 L 410) HEMATOCRIT (BEAKER) (test code = 26.4 % 34.1-44.9 L 411) Director Park ID - [id number]-GLUCOSE [id number] 22:26:00 Test Item Value Reference Range Interpretation Comments POC-GLUCOSE METER 137 mg/dL 70-110 H : TESTED A T [facility] 6720 (MAKENNAdooyoo) (test code = [facility]ERTO Mackenzie [facility], 1538) 38893: Director Park/Techni gretel ID = [id number] for MALLORY GRAHAM RAD, CHEST, 1 VIEW, NON [id number] 21:41:00Reason for exam:->shortness of breath, coughShould this [...] Annelise Davis Verified Date/Time: 05/25/2019 21:41:23 POCT-GLUCOSE [id number] 16:37:00 Test Item Value Reference Range Interpretation Comments POC-GLUCOSE METER 217 mg/dL 70-110 H : TESTED A T [facility] 6720 (BEAKER) (test code = [facility], 153) 04259: Director Park/Techni gretel ID = [id number] for RO DGERS, ROGERIOECA POCT-GLUCOSE [id number] 13:05:00 Test Item Value Reference Range Interpretation Comments POC-GLUCOSE METER 196 mg/dL 70-110 H : TESTED A T [facility] 6720 (BEAKER) (test code = [facility], 153) 85011: Director Park/Techni gretel ID = [id number] for RO DGERS, JAMECA POCT-GLUCOSE [id number] 08:49:00 Test Item Value Reference Range Interpretation Comments POC-GLUCOSE METER 95 mg/dL 70-110 : TESTED A T [facility] 6720 (BEAKER) (test code = [facility], 153) 85923: Director Park/Techni gretel ID = [id number] for RODG ERS, ROGERIOECA HEMOGLOBIN AND [id number] 05:24:00 Test Item Value Reference Range Interpretation Comments HEMOGLOBIN (BEAKER) (test code = 8.4 GM/DL 11.2-15.7 L 410) HEMATOCRIT (BEAKER) (test code = 27.0 % 34.1-44.9 L 411) Director Park ID - [id number]-GLUCOSE [id number] 22:08:00 Test Item Value Reference Range Interpretation Comments POC-GLUCOSE METER 164 mg/dL 70-110 H : TESTED A T [facility] 6720 (BEAKER) (test code = [facility], [facility]) 72686: Director Park/Techni gretel ID = [id number] for MALLORY GRAHAM POCT-GLUCOSE [id number] 12:57:00 Test Item Value Reference Range Interpretation Comments POC-GLUCOSE METER 156 mg/dL 70-110 H : TESTED A T [facility] 6720 (BEAKER) (test code = [facility], 153) 09685: Director Park/Techni gretel ID = [id number] for RO DGERS, ROGERIOECA POCT-GLUCOSE [id number] 08:38:00 Test Item Value Reference Range Interpretation Comments POC-GLUCOSE METER 102 mg/dL 70-110 : TESTED A T [facility] 6720 (BEAKER) (test code = [facility], 1538) 35487: Director Park/Techni gretel ID = [id number] for NITA GRANGER BASIC METABOLIC [id number] 06:30:00 Test Item Value Reference Range Interpretation [...] S NOT APPLICABLE FOR DIALYSIS PATIEN TS. Director Park ID - [id number] (HEMOGRAM ONLY)2019-05-24 05:51:00 Test [...] 0-0 (BEAKER) (test code = 413) POCT-GLUCOSE [id number] 18:38:00 Test Item Value Reference Range Interpretation Comments POC-GLUCOSE METER 243 mg/dL 70-110 H : Notified RN/MD: (BEAKER) (test code = TESTED AT [facility] 4933 1851) [facility], 22099: Director Park/Techni gretel ID = [id number] for Keiry Owens BASIC METABOLIC [id number] 06:25:00 Test Item Value Reference Range Interpretation [...] S NOT APPLICABLE FOR DIALYSIS PATIEN TS. Director Park ID - [id number] (HEMOGRAM ONLY)2019-05-23 05:56:00 Test [...] 0-0 (BEAKER) (test code = 413) POCT-GLUCOSE [id number] 00:29:00 Test Item Value Reference Range Interpretation Comments POC-GLUCOSE METER 126 mg/dL 70-110 H : TESTED A T [facility] 6720 (BEAKER) (test code = [place], 1538) 34749: Director Park/Techni gretel ID = [id number] for MASON PHELPS CBC W/PLT COUNT & AUTO [id number] 06:36:00 Test Item Value Reference Range Interpretation [...] PERCENT (BEAKER) (test code = 2801) POCT-GLUCOSE [id number] 06:11:00 Test Item Value Reference Range Interpretation Comments POC-GLUCOSE METER 111 mg/dL 70-110 H : TESTED A T [facility] 67 ([facility]) (test code = [facility], 1538) 65229: Director Park/Techni gretel ID = [id number] for RAFAEL CARBAJAL POCT-GLUCOSE [id number] 18:56:00 Test Item Value Reference Range Interpretation Comments POC-GLUCOSE METER 137 mg/dL 70-110 H : Notified RN/MD: ([facility]) (test code = TESTED AT [place] [id number] 153) CARL[facility] ALBERTO [facility], 83000: Director Park/Techni gretel ID = [id number] for DANDY ESTRADA [id number] 13:58:00 Test Item Value Reference Range Interpretation Comments POTASSIUM (BEAKER) (test code = 3.9 meq/L 3.5-5.1 379) Director Park ID - MALOU [id number] 13:58:00 Test Item Value Reference Range Interpretation Comments MAGNESIUM (BEAKER) (test code = 1.8 mg/dL 1.6-2.6 627) Director Park ID - MALOU FCBC (HEMOGRAM ONLY)2019-05-21 13:41:00 [...] 0-0 (BEAKER) (test code = 413) POCT-GLUCOSE [id number] 13:11:00 Test Item Value Reference Range Interpretation Comments POC-GLUCOSE METER 164 mg/dL 70-110 H : Notified RN/MD: (BEAKER) (test code = TESTED AT [facility] 5098 4039) [facility] AL[facility], 01904: Director Park/Techni gretel ID = [id number] for DANDY WINSTON URIC [id number] 10:43:00 Test Item Value Reference Range Interpretation Comments URIC ACID (BEAKER) (test code = 5.7 mg/dL 2.6-7.2 773) Director Park ID - MALOU FBASIC METABOLIC [id number] 06:40:00 Test Item Value Reference Range Interpretation [...] S NOT APPLICABLE FOR DIALYSIS PATIEN TS. Director Park ID - KEARA WPOCT-GLUCOSE [id number] 06:37:00 Test Item Value Reference Range Interpretation Comments POC-GLUCOSE METER 156 mg/dL 70-110 H : TESTED A T [facility] 6720 (BEAKER) (test code = [place], 1538) 27705: Director Park/Techni gretel ID = [id number] for VA RELA, RAJ CBC (HEMOGRAM ONLY)2019-05-21 [...] 0-0 (BEAKER) (test code = 413) POCT-GLUCOSE [id number] 00:42:00 Test Item Value Reference Range Interpretation Comments POC-GLUCOSE METER 155 mg/dL 70-110 H : [facility] ([facility]ER[facility] (test code = [place], 1538) 70050: Director Park/Techni gretel ID = [id number] for VA RAJ ESPINOZA [id number] 19:49:00 Test Item Value Reference Range Interpretation Comments FERRITIN (BEAKER) (test code = 361) 29 ng/mL 5-275 Director Park ID - TERRI [id number] 18:51:00 Test Item Value Reference Range Interpretation Comments TRANSFERRIN (BEAKER) (test code = 211 mg/dL 174-382 541) Director Park ID - TERRI LACYON, TIBC, % SAT. (WITHOUT FERRITIN)2019-05-20 18:51:00 Test Item Value Reference Range Interpretation Comments IRON (BEAKER) (test code = 547) 14.0 ug/dL 40.0-160.0 L TOTAL IRON BINDING CAPACITY 264 ug/dL 250-450 (BEAKER) (test code = 769) IRON % SATURATION (2) (BEAKER) 5 % 20-55 L (test code = 2590) Director Park ID - TERRI MRAD, ANKLE, 1 VIEW, [id number] 18:09:00Reason for exam:- >left ankle painShould this be performed at the bedside?->YesFINAL REPORT TECHNIQUE: Two views of left ankle HISTORY: left ankle pain. COMPARISON: None. IMPRESSION:No acute displaced fracture or dislocation. Joint spaces are within normal limits.Minimal Achilles enthesopathy. Large plantar calcaneal spur and enthesopathy. Signed: Steven Lyman MDReport Verified Date/Time: 05/20/2019 18:09:20 Reading Location: [facility] Consult Reading Room CBC (HEMOGRAM ONLY)2019-05-20 17:58:00 [...] WBC 0-0 (BEAKER) (test code = 413) [id number] 05:29:00 Test Item Value Reference Range Interpretation Comments MAGNESIUM (BEAKER) 1.9 mg/dL 1.6-2.6 Specimen slightly (test code = 627) hemolyzed Director Park ID - TERRI [id number] 05:29:00 Test Item Value Reference Range Interpretation Comments PHOSPHORUS (BEAKER) 3.3 mg/dL 2.3-4.7 Specimen slightly (test code = 604) hemolyzed Director Park ID - TERRI MBASIC METABOLIC [id number] 05:29:00 Test Item Value Reference Range Interpretation [...] S NOT APPLICABLE FOR DIALYSIS PATIEN TS. Director Park ID - TERRI MCBC (HEMOGRAM ONLY)2019-05-20 04:51:00 [...] 0-0 (BEAKER) (test code = 413) POCT-GLUCOSE [id number] 18:36:00 Test Item Value Reference Range Interpretation Comments POC-GLUCOSE METER 101 mg/dL 70-110 : TESTED A T [facility] 6720 (BEAKER) (test code = [place], 1538) 66162: Director Park/Techni gretel ID = [id number] for DANDY WINSTON CBC (HEMOGRAM ONLY)2019-05-19 18:33:00 [...] 0-0 (BEAKER) (test code = 413) POCT-GLUCOSE [id number] 12:30:00 Test Item Value Reference Range Interpretation Comments POC-GLUCOSE METER 130 mg/dL 70-110 H : TESTED A T [facility] 6720 (BEAKER) (test code = HUM[facility]ERTO Mackenzie [facility], 1538) 94508: Director Park/Techni gretel ID = [id number] for DANDY ESTRADA [id number] 08:02:00 Test Item Value Reference Range Interpretation Comments PHOSPHORUS (BEAKER) (test code = 2.5 mg/dL 2.3-4.7 604) Director Park ID - TERRI [id number] 08:02:00 Test Item Value Reference Range Interpretation Comments MAGNESIUM (BEAKER) (test code = 1.6 mg/dL 1.6-2.6 627) Director Park ID - TERRI MBASIC METABOLIC [id number] 08:02:00 Test Item Value Reference Range Interpretation [...] 697) EGFR (BEAKER) (test 52 mL/min/1.73 ESTIMA YLN GFR IS code = 1092) sq m NOT ACCURATE CREATININE CLEARANCE IN PREDICTING GLOMERULAR FILTRATION RATE . ESTIMATED GFR I S NOT APPLICABLE FOR DIALYSIS PATIEN TS. Director Park ID - TERRI [id number] 07:40:00 Test Item Value Reference Range Interpretation Comments FIBRINOGEN LEVEL (BEAKER) (test 489 mg/dl 225-434 H code = 658) [id number] 07:40:00 Test Item Value Reference Range Interpretation [...] 0-0 (BEAKER) (test code = 413) POCT-GLUCOSE [id number] 00:26:00 Test Item Value Reference Range Interpretation Comments POC-GLUCOSE METER 110 mg/dL 70-110 : Notified RN/MD: (BEAKER) (test code = TESTED AT [facility] 4068 6226) [facility], 40095: Director Park/Techni gretel ID = [id number] for CHRIS PEREZ POCT-GLUCOSE [id number] 18:22:00 Test Item Value Reference Range Interpretation Comments POC-GLUCOSE METER 127 mg/dL 70-110 H : TESTED A T [facility] 6720 (BEAKER) (test code = HUMBERTO Mackenzie [facility], 1538) 84691: Director Park/Techni gretel ID = [id number] for RADHA DE LOS SANTOS POCT-GLUCOSE [id number] 12:25:00 Test Item Value Reference Range Interpretation Comments POC-GLUCOSE METER 171 mg/dL 70-110 H : TESTED A T [facility] 6720 (BEAKER) (test code = [facility], 1538) 86994: Director Park/Techni gretel ID = [id number] for RADHA DE LOS SANTOS [id number] 04:17:00 Test Item Value Reference Range Interpretation Comments PHOSPHORUS (BEAKER) (test code = 2.0 mg/dL 2.3-4.7 L 604) Director Park ID - KEARA [id number] 04:17:00 Test Item Value Reference Range Interpretation Comments MAGNESIUM (BEAKER) (test code = 1.6 mg/dL 1.6-2.6 627) Director Park ID - KEARA WBASIC METABOLIC [id number] 04:17:00 Test Item Value Reference Range Interpretation [...] S NOT APPLICABLE FOR DIALYSIS PATIEN TS. Director Park ID - KEARA [facility] (HEMOGRAM ONLY)2019-05-18 03:55:00 Test Item Value Reference [...] 0-0 (BEAKER) (test code = 413) POCT-GLUCOSE [id number] 18:43:00 Test Item Value Reference Range Interpretation Comments POC-GLUCOSE METER 139 mg/dL 70-110 H : TESTED A T [facility] 6720 (BEAKER) (test code = [place], 1538) 58465: Director Park/Techni gretel ID = [id number] for RADHA DE LOS SANTOS, CAROTID STENT W [id number] 15:10:00Reason for exam:->left carotid stenosisFINAL REPORT Date [...] guidance and strict sterile technique a 6 [place] shuttle sheath was inserted through the right [...] of approximately 70%. A distal protective device (EmboShiVMTurbo) was gently navigated through the stenotic segment [...] the stent to the arterial wall with bahai of the intraluminal flow and mild residual stenosis of approximately 20%. There is no evidence of platelet aggregation, or dissection. Intracranially there is bahai of good antegrade flow with no evidence [...] Carrasco Verified Date/Time: 05/17/2019 15:10:42 [facility] POCT-GLUCOSE [id number] 12:40:00 Test Item Value Reference Range Interpretation Comments POC-GLUCOSE METER 130 mg/dL 70-110 H : TESTED A T [facility] 6720 (BEAKER) (test code = HUMBERTO Gurdeep [facility], 1538) 53009: Director Park/Techni gretel ID = [id number] for RADHA DE LOS SANTOS PROTHROMBIN [id number] 11:08:00 Test Item Value Reference Range Interpretation [...] INR is2.5-3.5 for patients wiht mechanical heart valves.[id number] 09:19:00 Test Item Value Reference Range Interpretation Comments PARTIAL THROMBOPLASTIN TIME 37.6 seconds 22.5-36.0 H (BEAKER) (test code = 760) POCT-GLUCOSE [id number] 06:49:00 Test Item Value Reference Range Interpretation Comments POC-GLUCOSE METER 110 mg/dL 70-110 : TESTED A T [facility] 6720 (BEAKER) (test code = [place]ERT[place] Mack[place], 1538) 53676: Director Park/Techni gretel ID = [id number] for MASON PHELPS BASIC METABOLIC [id number] 05:59:00 Test Item Value Reference Range Interpretation [...] S NOT APPLICABLE FOR DIALYSIS PATIEN TS. Director Park ID - TERRI [id number] 05:35:00 Test Item Value Reference Range Interpretation Comments PARTIAL THROMBOPLASTIN TIME 38.3 seconds 22.5-36.0 H (BEAKER) (test code = 760) Prior to initiating heparinPOCT-P2Y12 PLATELET [id number] 05:34:00 Test Item Value Reference Range Interpretation Comments POC-P2Y12 PLATELET AGG (BEAKER) (test 230 PRU code = 2303) RANGE INFORMATION: PRU reference range is 194-418. Post Drug Results: Lower PRU levels are associated with expected antiplatelet effect. Values may be below the stated reference range above. The post-drug PRU values reported in the [employer] P2Y12 package insert are 18-435.POCT-ASPIRIN PLATELET [id number] 05:34:00 Test Item Value Reference Range Interpretation Comments POC-ASPIRIN PLATELET AGG (BEAKER) 564 ARU (test code = 2302) RANGE INFORMATION: 350-549 ARU Therapeutic range for platelet function. 550-700 ARU Non-Therapeutic range for platelet function.[id number] 05:34:00 Test Item Value Reference Range Interpretation [...] WBC 0-0 (BEAKER) (test code = 413) [id number] 02:03:00 Test Item Value Reference Range Interpretation Comments PARTIAL THROMBOPLASTIN TIME 35.8 seconds 22.5-36.0 (BEAKER) (test code = 760) 6 hours after starting heparin infusion and as indicated per sliding scalePOCT- GLUCOSE [id number] 00:00:00 Test Item Value Reference Range Interpretation Comments POC-GLUCOSE METER 109 mg/dL 70-110 : TESTED A T [facility] 6720 (GIFTY) (test code = HUMBERTO Mackenzie [facility], 1538) 58776: Director Park/Techni gretel ID = [id number] for MASON PHELPS POCT-GLUCOSE [id number] 18:48:00 Test Item Value Reference Range Interpretation Comments POC-GLUCOSE METER 148 mg/dL 70-110 H : Notified RN/MD: (GIFTY) (test code = TESTED AT [facility] 6720 1538) [facility], 12544: Director Park/Techni gretel ID = [id number] for STEWART MOORE, ANGIOGRAM, [id number] 16:45:00Reason for exam:->basilar tip aneurysmFINAL REPORT Date [...] guidance and strict sterile technique a 4 [place] femoral sheath was inserted into the right radial artery. Through the sheath a 4 [place] [employer] catheter was then advanced over the wire [...] 8 mm basilar apex aneurysm. Signed: Khai Carrascoeport Verified Date/Time: 05/16/2019 16:45:20 Reading [facility] POCT-GLUCOSE [id number] 13:41:00 Test Item Value Reference Range Interpretation Comments POC-GLUCOSE METER 120 mg/dL 70-110 H : TESTED A T [facility] 6720 (BEAKER) (test code = [place], 1538) 488[address]: Director Park/Techni gretel ID = [id number] for ESVIN LAMBERT [id number] 09:24:00 Test Item Value Reference Range Interpretation [...] WBC 0-0 (BEAKER) (test code = 413) [id number] 03:01:00 Test Item Value Reference Range Interpretation [...] heart valves.Prior to initiating heparinPrior to initiating [id number] 03:01:00 Test Item Value Reference Range Interpretation Comments PARTIAL THROMBOPLASTIN TIME 32.2 seconds 22.5-36.0 (BEAKER) (test code = 760) BASIC METABOLIC [id number] 02:58:00 Test Item Value Reference Range Interpretation [...] S NOT APPLICABLE FOR DIALYSIS PATIEN TS. Director Park ID - TERRI MPLATELET [id number] 02:45:00 Test Item Value Reference Range Interpretation Comments PLATELET COUNT (BEAKER) (test 231 K/CU MM 150-450 code = 756) Director Park ID - [id number], CEREBRAL PERFUSION [id number] 01:22:00FINAL REPORT CT cerebral perfusion analysis. Comparison: [...] Signed: Fabiano Montoya Verified Date/Time: 05/16/2019 01:22:48 [facility] [id number] 01:09:00 FINAL REPORT EXAM: CT, CT Angio, [...] Fabiano Montoya MDReport Verified Date/Time: 05/16/2019 01:09:25 [facility], CAROTID, ANGIO 2019-05-16 01:09:00FINAL REPORT EXAM: CT, [...] Signed: Fabiano Montoya Verified Date/Time: 05/16/2019 01:09:25 [facility], BRAIN/STROKE PROTOCOL 2019-05-15 23:34:00FINAL REPORT EXAM: CT [...] Fabiano Montoya Verified Date/Time: 05/15/2019 23:34:22 POCT-GLUCOSE [id number] 20:57:00 Test Item Value Reference Range Interpretation Comments POC-GLUCOSE METER 119 mg/dL 70-110 H : TESTED A T [facility] 6720 (BEAKER) (test code = [facility], 1538) 55912: Director Park/Techni gretel ID = [id number] for CARLINE HARDING PROTHROMBIN [id number] 19:47:00 Test Item Value Reference Range Interpretation [...] is2.5-3.5 for patients wiht mechanical heart valves.POCT-GLUCOSE [id number] 17:51:00 Test Item Value Reference Range Interpretation Comments POC-GLUCOSE METER 125 mg/dL 70-110 H : TESTED A T [facility] 6720 (BEAKER) (test code = [facility], 1538) 08939: Director Park/Techni gretel ID = [id number] for BR OWN, MARIA DEL CARMEN POCT-GLUCOSE [id number] 11:55:00 Test Item Value Reference Range Interpretation Comments POC-GLUCOSE METER 169 mg/dL 70-110 H : TESTED A T [facility] 6720 (BEAKER) (test code = [facility], 1538) 29949: Director Park/Techni gretel ID = [id number] for BR OWN, MARIA DEL CARMEN HEMOGLOBIN [id number] 10:46:00 Test Item Value Reference Range Interpretation Comments HEMOGLOBIN A1C (BEAKER) (test code = 5.8 % 4.3-6.1 368) POCT-GLUCOSE [id number] 08:50:00 Test Item Value Reference Range Interpretation Comments POC-GLUCOSE METER 134 mg/dL 70-110 H : TESTED A T [facility] 6720 (BEAKER) (test code = HUMBERTO Mackenzie [facility], 1538) 56983: Director Park/Techni gretel ID = [id number] for BR OWNMARIA DEL CARMEN VITAMIN B12 AND [id number] 07:44:00 Test Item Value Reference Range Interpretation Comments VITAMIN B12 (BEAKER) (test code = 472 pg/mL 213-816 774) FOLATE (BEAKER) (test code = 362) 19.4 ng/mL >=7.0 Director Park ID - MALOU FPOCT-GLUCOSE [id number] 06:57:00 Test Item Value Reference Range Interpretation Comments POC-GLUCOSE METER 114 mg/dL 70-110 H : TESTED A T [facility] 6720 (BEAKER) (test code = HUMBERTO Mackenzie [facility], 1538) 35198: Director Park/Techni gretel ID = [id number] for DE NNIS, MALIHA LIPID [id number] 06:53:00 Test Item Value Reference Range Interpretation [...] Borderline 130-159 High 160-189 Very High >=190 Director Park ID - PISALTYLBASIC METABOLIC [id number] 06:53:00 Test Item Value Reference Range Interpretation [...] S NOT APPLICABLE FOR DIALYSIS PATIEN TS. Director Park ID - PIAYA LCBC (HEMOGRAM ONLY)2019-05-15 06:29:00 [...] (test code = 413) MR, BRAIN, WITHOUT [id number] 04:06:00FINAL REPORT EXAM: MR, BRAIN, WITHOUT CONTRAST [...] Rosario MDReport Verified Date/Time: 05/15/2019 04:06:56 POCT-GLUCOSE [id number] 21:18:00 Test Item Value Reference Range Interpretation Comments POC-GLUCOSE METER 95 mg/dL 70-110 : TESTED A T [facility] 67[address] (BEAKER) (test code = HUMBERTO Mackenzie [facility], 1538) [address]: Director Park/Techni gretel ID = [id number] for MALIHA COWAN BASIC METABOLIC [id number] 14:37:00 Test Item Value Reference Range Interpretation [...] APPLICABLE FOR DIALYSIS PATIEN TS. BASIC METABOLIC [id number] 13:34:00 Test Item Value Reference Range Interpretation [...] S NOT APPLICABLE FOR DIALYSIS PATIEN TS. [id number] 12:49:00 Test Item Value Reference Range Interpretation [...] mechanical heart valves.CBC W/PLT COUNT & AUTO [id number] 12:48:00 Test Item Value Reference Range Interpretation [...]
[2020-08-09] MEDS ORDERED: ACETAMINOPHEN 500 MG TAB ONE (20:58)
--- NOTE | 2020-08-09 23:33 | ER ---
Nurse's Notes [facility] Name: Bharati Lancaster Age: 80 yrs Sex: Female : 1940 Arrival Date: 08/09/2020 Time: 19:51 Bed 24 Private MD: Casa Morton V Diagnosis: Fall-Mechanical;Lower Extremity Contusions, Right;Skin Tear, Right Forearm Presentation: 08/09 20:16 Chief complaint: Patient states: Reports she was standing up and her right knee buckled ea and she fell on her butt. Denies head injury. Reports pain to right knee and right arm. Coronavirus screen: At this time, the client does not indicate any symptoms associated with coronavirus-19. Ebola Screen: No symptoms or risks identified at this time. Initial Sepsis Screen: Does the patient meet any 2 criteria? No. Patient's initial sepsis screen is negative. Does the patient have a suspected source of infection? No. Patient's initial sepsis screen is negative. Risk Assessment: Do you want to hurt yourself or someone else? Patient reports no desire to harm self or others. Onset of symptoms was August 09, 2020. 20:16 Method Of Arrival: Wheelchair ea 20:16 Acuity: GONZALEZ 3 ea Triage Assessment: 20:18 General: Appears in no apparent distress. Behavior is appropriate for age. Pain: ea Complains of pain in right arm and right leg. Historical: - Allergies: 20:18 BACLOFEN; ea 20:18 ceftriaxone; ea 20:18 Codeine; ea 20:18 CYCLOBENZAPRINE; ea 20:18 Darvocet-N 100; ea 20:18 codeine sulfate; ea 20:18 Demerol; ea 20:18 Hydrocodone-Acetaminophen; ea 20:18 Morphine; ea 20:18 PENICILLINS; ea 20:18 plastic tape; ea 20:18 Propoxyphene N-Acetaminophen; ea 20:18 Tape; ea - PMHx: 20:18 Hypothyroidism; Hypertension; Gout; GERD; Diabetes - NIDDM; chronic kidney disease; ea Cervical radicular pain; Degenative join disease; CHF; Atrial Fib; DVT; Hyperlipidemia; - Immunization history:: Adult Immunizations up to date. - Social history:: Smoking status: Patient denies any tobacco usage or history of. Screenin:17 Abuse screen: Denies threats or abuse. Nutritional screening: No deficits noted. ea Tuberculosis screening: No symptoms or risk factors identified. Fall Risk Fall in past 12 months (25 points). Assessment: 20:11 General: Appears in no apparent distress. Behavior is calm, cooperative, appropriate kg for age. Pain: Complains of pain in right hip, right knee and right ankle. Pain does not radiate. Pain currently is 5 out of 10 on a pain scale. Quality of pain is described as aching. 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 Cardiovascular: Denies chest pain, lightheadedness, nausea, shortness of breath, Capillary refill < 3 seconds. Respiratory: Airway is patent Trachea midline Respiratory effort is even, unlabored, Respiratory pattern is regular. GI: Patient currently denies nausea, pain, vomiting. EENT: No deficits noted. Derm: Wound noted right forearm Wound is skin tear, scant bloody drainage. family applied medicated dressing with coband. Musculoskeletal: Capillary refill < 3 seconds, Range of motion: limited in all extremities, Swelling present in right knee and right ankle. Injury Description: patients knee gave out when transfering from to toilet. 21:00 Reassessment: Patient and/or family updated on plan of care and expected duration. Pain cr4 level reassessed. Patient is alert, oriented x 3, equal unlabored respirations, skin warm/dry/pink. 22:00 Reassessment: Patient and/or family updated on plan of care and expected duration. Pain cr4 level reassessed. Patient is alert, oriented x 3, equal unlabored respirations, skin warm/dry/pink. Patient states symptoms have improved. 23:00 Reassessment: No changes from previously documented assessment. Patient is alert, cr4 oriented x 3, equal unlabored respirations, skin warm/dry/pink. Vital Signs: 20:11 BP 177 / 58; Pulse 76; Resp 18; Pulse Ox 100% ; Pain 5/10; kg 20:16 BP 177 / 68; Pulse 77; Resp 18; Temp 97.6; Pulse Ox 97% on R/A; Weight 72.57 kg; Height ea 5 ft. 6 in. (167.64 cm); 21:00 BP 184 / 61; Pulse 75; Resp 18; Pulse Ox 100% ; Pain 5/10; cr4 22:00 BP 155 / 53; Pulse 68; Resp 17; Temp 97.8; Pulse Ox 100% ; Pain 3/10; cr4 23:30 BP 170 / 65; Pulse 66; Resp 17; Temp 97.6; Pulse Ox 98% ; Pain 0/10; cr4 20:16 Body Mass Index 25.82 (72.57 kg, 167.64 cm) ED Course: 19:51 Patient arrived in ED. es 19:51 Casa Morton MD is Private Physician. es 20:10 Jeanmarie Duncan MD is Attending Physician. [facility] 20:17 Triage completed. ea 20:18 Patient has correct armband on for positive identification. Bed in low position. Call ea light in reach. 20:38 Nona River is Primary Nurse. kg 22:23 Hip Right 2 View XRAY In Process Unspecified. EDMS 22:23 Pelvis XRAY In Process Unspecified. EDMS 22:23 Knee Right 3 View XRAY In Process Unspecified. EDMS 22:23 Ankle Right 3 View XRAY In Process Unspecified. EDMS 23:00 Awaiting lab results. cr4 23:00 No provider procedures requiring assistance completed. Patient did not have IV access cr4 during this emergency room visit. Administered Medications: 20:43 Drug: Tylenol 1000 mg Route: PO; kg 22:30 Follow up: Response: No adverse reaction; Pain is decreased cr4 Outcome: 23:32 Discharge ordered by . [facility] 23:44 Discharged to home via wheelchair. cr4 23:44 Discharged to 23:44 Condition: stable 23:44 Discharge instructions given to patient, family. 23:44 Discharge instructions given to Instructed on discharge instructions, follow up and referral plans. Demonstrated understanding of instructions, follow-up care, wound care. 23:45 Patient left the ED. cr4 Signatures: Dispatcher [employer] Helena Napoles Claudia RN TOI 4 Daria Zamora RN RN ea Holmes, Maurice, MD MD Nona Frye kg
--- NOTE | 2020-08-09 23:33 | EDPHYS ---
Physician Documentation [facility] Name: Bharati Lancaster Age: 80 yrs Sex: Female : 1940 Arrival Date: 08/09/2020 Time: 19:51 Bed 24 Private MD: Casa Morton V ED Physician Jeanmarie Duncan HPI: 08/09 20:56 This 80 yrs old Female presents to ER via Wheelchair with complaints of Fall mh7 Injury. 20:56 Details of fall: The patient fell from seated position, while transferring, and struck mh7 a linoleum surface. Onset: The symptoms/episode began/occurred just prior to arrival, today. Associated injuries: The patient sustained right forearm, abrasion, skin tear, right hip, painful injury, right knee, painful injury, right ankle, painful injury. Severity of symptoms: At their worst the symptoms were moderate, earlier today, in the emergency department the symptoms have improved, moderately. 20:56 patient is wheelchair bound and states that she fell while transferring from chair as mh7 her right knee buckled. She has had similar issues in past with the knee. Denies any head trauma or LOC.. Historical: - Allergies: 20:18 BACLOFEN; ea 20:18 ceftriaxone; ea 20:18 Codeine; ea 20:18 CYCLOBENZAPRINE; ea 20:18 Darvocet-N 100; ea 20:18 codeine sulfate; ea 20:18 Demerol; ea 20:18 Hydrocodone-Acetaminophen; ea 20:18 Morphine; ea 20:18 PENICILLINS; ea 20:18 plastic tape; ea 20:18 Propoxyphene N-Acetaminophen; ea 20:18 Tape; ea - PMHx: 20:18 Hypothyroidism; Hypertension; Gout; GERD; Diabetes - NIDDM; chronic kidney disease; ea Cervical radicular pain; Degenative join disease; CHF; Atrial Fib; DVT; Hyperlipidemia; - Immunization history:: Adult Immunizations up to date. - Social history:: Smoking status: Patient denies any tobacco usage or history of. ROS: 20:56 Constitutional: Negative for fever, chills, and weight loss, Eyes: Negative for injury, mh7 pain, redness, and discharge, ENT: Negative for injury, pain, and discharge, Neck: Negative for injury, pain, and swelling, Cardiovascular: Negative for chest pain, palpitations, and edema, Respiratory: Negative for shortness of breath, cough, wheezing, and pleuritic chest pain, Abdomen/GI: Negative for abdominal pain, nausea, vomiting, diarrhea, and constipation, Back: Negative for injury and pain, : Negative for injury, bleeding, discharge, and swelling, Neuro: Negative for headache, weakness, numbness, tingling, and seizure, Psych: Negative for depression, anxiety, suicide ideation, homicidal ideation, and hallucinations, Allergy/Immunology: Negative for hives, rash, and allergies, Endocrine: Negative for neck swelling, polydipsia, polyuria, polyphagia, and marked weight changes, Hematologic/Lymphatic: Negative for swollen nodes, abnormal bleeding, and unusual bruising. Exam: 20:56 Constitutional: This is a well developed, well nourished patient who is awake, alert, mh7 and in no acute distress. Head/Face: Normocephalic, atraumatic. Eyes: Pupils equal round and reactive to light, extra-ocular motions intact. Lids and lashes normal. Conjunctiva and sclera are non-icteric and not injected. Cornea within normal limits. Periorbital areas with no swelling, redness, or edema. Neck: Trachea midline, no thyromegaly or masses palpated, and no cervical lymphadenopathy. Supple, full range of motion without nuchal rigidity, or vertebral point tenderness. No Meningismus. Chest/axilla: Normal chest wall appearance and motion. Nontender with no deformity. No lesions are appreciated. Cardiovascular: Regular rate and rhythm with a normal S1 and S2. No gallops, murmurs, or rubs. Normal PMI, no JVD. No pulse deficits. Respiratory: Lungs have equal breath sounds bilaterally, clear to auscultation and percussion. No rales, rhonchi or wheezes noted. No increased work of breathing, no retractions or nasal flaring. Abdomen/GI: Soft, non-tender, with normal bowel sounds. No distension or tympany. No guarding or rebound. No evidence of tenderness throughout. Back: No spinal tenderness. No costovertebral tenderness. Full range of motion. 20:56 Neuro: Awake and alert, GCS 15, oriented to person, place, time, and situation. Cranial nerves II-XII grossly intact. Motor strength 5/5 in all extremities. Sensory grossly intact. Cerebellar exam normal. Normal gait. Psych: Awake, alert, with orientation to person, place and time. Behavior, mood, and affect are within normal limits. 20:56 Musculoskeletal/extremity: Extremities: noted in the righ forearm: small superficial skin tear, no bleeding, noted in the right hip: pain, tenderness, noted in the right knee: pain, tenderness, Noted in right ankle: pain, tenderness, ROM: limited active range of motion due to pain, in the right leg, limited passive range of motion due to pain, in the right leg, Circulation is intact in all extremities. Pulses: are normal with no appreciated deficits, Perfusion: the patient is normally perfused throughout, Perfusion: the extremity is normally perfused throughout, Calf tenderness, is absent, Edema, is not appreciated, Sensation intact. Compartment Syndrome exam of affected extremity: is normal. no numbness, no tingling, no sensation deficit, no palor, no weak pulses, Joints: the right hip displays tenderness, the right knee and ankle displays tenderness, Weight bearing: is unable to bear weight, Tendon exam: specific tendon testing normal through active and passive range of motion Vital Signs: 20:11 BP 177 / 58; Pulse 76; Resp 18; Pulse Ox 100% ; Pain 5/10; kg 20:16 BP 177 / 68; Pulse 77; Resp 18; Temp 97.6; Pulse Ox 97% on R/A; Weight 72.57 kg; Height ea 5 ft. 6 in. (167.64 cm); 21:00 BP 184 / 61; Pulse 75; Resp 18; Pulse Ox 100% ; Pain 5/10; cr4 22:00 BP 155 / 53; Pulse 68; Resp 17; Temp 97.8; Pulse Ox 100% ; Pain 3/10; cr4 23:30 BP 170 / 65; Pulse 66; Resp 17; Temp 97.6; Pulse Ox 98% ; Pain 0/10; cr4 20:16 Body Mass Index 25.82 (72.57 kg, 167.64 cm) ea MDM: 23:30 Differential diagnosis: abrasion, contusion, fracture. Data reviewed: vital signs, [facility] nurses notes, radiologic studies, plain films. Data interpreted: Pulse oximetry: on room air is 100 %. Interpretation: normal. Counseling: I had a detailed discussion with the patient and/or guardian regarding: the historical points, exam findings, and any diagnostic results supporting the discharge/admit diagnosis, the presence of at least one elevated blood pressure reading (>120/80) during this emergency department visit, radiology results, the need for outpatient follow up, to return to the emergency department if symptoms worsen or persist or if there are any questions or concerns that arise at home. Response to treatment: the patient's symptoms have markedly improved after treatment. 23:32 Patient medically screened. [facility] 08/09 20:34 Order name: Hip Right 2 View XRAY [facility] 08/09 20:34 Order name: Pelvis XRAY 7 08/09 20:34 Order name: Knee Right 3 View XRAY [facility] 08/09 20:34 Order name: Ankle Right 3 View XRAY [facility] Administered Medications: 20:43 Drug: Tylenol 1000 mg Route: PO; kg 22:30 Follow up: Response: No adverse reaction; Pain is decreased cr4 Disposition: 08/09/20 23:32 Discharged to Home. Impression: Fall-Mechanical, Lower Extremity Contusions, Right, Skin Tear, Right Forearm. - Condition is Stable. - Discharge Instructions: Contusion, [id number], Skin Tear Care, [id number], Fall Prevention in the Home, [id number]. - Medication Reconciliation Form, Thank You Letter, Antibiotic Education, Prescription Opioid Use form. - Follow up: Private Physician; When: 1 - 2 days; Reason: Worsening of condition, Recheck today's complaints, Continuance of care, Re-evaluation by your physician. - Problem is new. - Symptoms have improved. Signatures: Dispatcher [employer] EDUT Radha Mejia RN RN cr4 Daria Zamora RN RN ea Holmes, Maurice, MD MD 7 Nona River kg Corrections: (The following items were deleted from the chart) 23:45 23:32 08/09/2020 23:32 Discharged to Home. Impression: Fall-Mechanical; Lower Extremity cr4 Contusions, Right; Skin Tear, Right Forearm. Condition is Stable. Forms are Medication Reconciliation Form, Thank You Letter, Antibiotic Education, Prescription Opioid Use. Follow up: Private Physician; When: 1 - 2 days; Reason: Worsening of condition, Recheck today's complaints, Continuance of care, Re-evaluation by your physician. Problem is new. Symptoms have improved. mh7
[2020-08-09 23:58] VITALS: BP 170/65; TEMP 97.6; O2SAT 98
--- NOTE | 2020-08-10 19:52 | RAD REPORT ---
EXAM DESCRIPTION: RAD - Pelvis - 08/09/2020 9:25 pm CLINICAL HISTORY: 80 years, Female, TRAUMA COMPARISON: None. FINDINGS: Single frontal view of the pelvis was obtained. There is diffuse bony osteopenia. No are as of acute bony injuries were demonstrated. No gross soft tissue abnormality is identified. Ther e are no gross intraosseous lesions. No periosteal reaction were seen. Bilateral hip joints demon strate to be unremarkable. The pelvic brim is intact. Degenerative changes lower lumbar spine. Visual ized gas pattern is nondiagnostic. Minimal heterotopic calcifications are identified within the inser tion of both hamstring at the ischial tuberosities. No definitive displaced fracture are identified, if symptoms persist, clinical correlation and/or fur ther evaluation with CT scan and/or MRI could be of assistance. IMPRESSION: No areas of acute bony injuries were demonstrated. Electronically signed by: Ronnie Allison MD 08/09/2020 10:59 PM CDT Due to temporary technical issues with the PACS/Fluency reporting system, reports are being signed by the in house radiologists without review as a courtesy to insure prompt reporting. The interpreting radiologist is fully responsible for the content of the report.
--- NOTE | 2020-08-10 19:54 | RAD REPORT ---
EXAM DESCRIPTION: RAD - Knee Right 3 View - 08/09/2020 9:25 pm CLINICAL HISTORY: 80 years, Female, trauma COMPARISON: None FINDINGS: 3 X-ray views of the Right knee (frontal lateral and oblique views) were performed. There is diffuse bony osteopenia. There is no evidence for fracture or dislocation. There are no gross in traosseous lesions. There are [id number] degenerative changes 3 compartments of the right knee. There are calcification is identified within the lateral and medial meniscus. There is no joint effu rodolfo. There is no periostitis. IMPRESSION: No acute bony abnormality. Degenerative changes. Chondrocalcinosis. Electronically signed by: Ronnie Allison MD 08/09/2020 11:02 PM CDT Due to temporary technical issues with the PACS/Fluency reporting system, reports are being signed by the in house radiologists without review as a courtesy to insure prompt reporting. The interpreting radiologist is fully responsible for the content of the report.
--- NOTE | 2020-08-10 19:56 | RAD REPORT ---
EXAM DESCRIPTION: RAD - Hip Right 2 View - 08/09/2020 9:25 pm CLINICAL HISTORY: 80 years, Female, trauma Hip Right 2 View COMPARISON: None. FINDINGS: 2 views of the hip (frontal view of the left hip and frogleg view of the left hip) were ob tained. There is mild diffuse bony osteopenia. No areas of acute bony injuries were demonstrated. No gross soft tissue abnormality is identified. There are no gross intraosseous lesions. The right hip joint demonstrate spur formation along the greater trochanter and anterior superior aspect of th e acetabulum. Also minimal atrophic calcifications are noted within the insertion of the biceps tendo n within the ischial tuberosity. No definitive displaced fracture are identified, if symptoms persist, clinical correlation and/or fur ther evaluation with CT scan and/or MRI could be of assistance. IMPRESSION: No areas of acute bony injuries were demonstrated. Minimal degenerative changes seen along the greater trochanter and anterior superior aspect of the ri ght acetabulum. Electronically signed by: Ronnie Allison MD 08/09/2020 10:57 PM CDT Due to temporary technical issues with the PACS/Fluency reporting system, reports are being signed by the in house radiologists without review as a courtesy to insure prompt reporting. The interpreting radiologist is fully responsible for the content of the report.
--- NOTE | 2020-08-10 20:47 | RAD REPORT ---
EXAM DESCRIPTION: RAD - Ankle Right 3 View - 08/09/2020 9:26 pm CLINICAL HISTORY: 80 years, Female, trauma COMPARISON: None. FINDINGS: 3 X-ray views of the Right ankle (frontal lateral and oblique) were performed. There is mi ld diffuse bony osteopenia. There is minimal soft tissue swelling along the medial malleolus. There i s degenerative changes within the midfoot articulation and tibial talar joint. Calcification/spur for mations are identified within the posterior aspect of the calcaneus at the insertion of the tendons. The ankle mortise is intact. There is no significant joint effusion. There are no gross intraosse ous lesions. IMPRESSION: No acute osseous abnormality. Degenerative changes. Electronically signed by: Ronnie Allison MD 08/09/2020 10:56 PM CDT Due to temporary technical issues with the PACS/Fluency reporting system, reports are being signed by the in house radiologists without review as a courtesy to insure prompt reporting. The interpreting radiologist is fully responsible for the content of the report.
== END 2020-08-09 23:45 | disposition home or self-care (01) ==
LOC: ER 19:47
DX: S51.811A Laceration without foreign body of right forearm, initial encounter (principal); S70.01XA Contusion of right hip, initial encounter; S90.01XA Contusion of right ankle, initial encounter; S80.01XA Contusion of right knee, initial encounter; E03.9 Hypothyroidism, unspecified; I13.0 Hypertensive heart and chronic kidney disease with heart failure and stage 1 through stage 4 chronic kidney disease, or unspecified chronic kidney disease; N18.9 Chronic kidney disease, unspecified; I50.9 Heart failure, unspecified; E11.22 Type 2 diabetes mellitus with diabetic chronic kidney disease; M10.9 Gout, unspecified; K21.9 Gastro-esophageal reflux disease without esophagitis; M19.90 Unspecified osteoarthritis, unspecified site; I48.91 Unspecified atrial fibrillation; Z86.718 Personal history of other venous thrombosis and embolism; E78.5 Hyperlipidemia, unspecified; W05.0XXA Fall from non-moving wheelchair, initial encounter
CPT/HCPCS: 72170; 99283

== ENCOUNTER 2020-10-29 12:08 | Emergency (ER) | payer OTHER ==
--- OUTSIDE RECORDS SUMMARY | 2020-10-29 12:14 | XMS REPORT | Continuity of Care Document ---
:1940 Author Organization [facility] t Address [address] [place] [address] Care Team Providers Name Role Phone Aaron Morton Primary Care Physician Doctor Unassigned, Name Attending Clinician Unavailable Anna CM, A Attending Clinician Unavailable Cal DOHERTY Attending Clinician Debra DOHERTY Attending Clinician Portillo Jimenez DO Attending Clinician Semaj Horne MD Attending Clinician Darius DOHERTY Attending Clinician Janay Ye MD Attending Clinician Lionel Kwok MD Attending Clinician India Carrasco MD Attending Clinician Unknown Attending Clinician Unavailable Pob, Lab Main Attending Clinician Unavailable c-Lab Attending Clinician Unavailable Vls-Lab Attending Clinician Unavailable Only, Test Attending Clinician Unavailable INDIA CARRASCO Attending Clinician Unavailable DALE FLORES Attending Clinician Unavailable Debra DOHERTY Admitting Clinician Jose aPlma MD Admitting Clinician India Carrasco MD Admitting Clinician SHALONDA Admitting Clinician Unavailable INDIA CARRASCO Admitting Clinician Unavailable Problems Condition Condition Condition Status Onset Resolution Last Treating Co mments Source Name Details Category Date Date Treatment Clinician Date Acute Acute Disease Active [facility] blood loss blood loss 2-11 Ella kes - anemia anemia 00:00: Medical [facility] Gout flare Gout flare Disease Active 2020- [facility] Medical [facility] COPD COPD Disease Active 2019- [facility] (chronic (chronic 2 [facility] - obstructiv obstructiv 00:00: Me dical e e 00 Center pulmonary pulmonary disease) disease) Gastroesop Gastroesop Disease Active [facility] hageal hageal 2- [facility] - reflux reflux 00:00: Medical disease disease 00 [facility] with with esophagiti esophagiti s s HLD HLD Disease Active [facility] (hyperlipi (hyperlipi 2- Ella kes - demia) demia) 00:00: Medical 00 [facility] Hypothyroi Hypothyroi Disease Active 2019-[address] dism dism 2 [facility] - 00:00: Medical [facility] Coagulopat Coagulopat Disease Active 2019-[address] hy hy 2- [facility] - 00:00: Medical [facility] 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 00:00: Medica l 00 [place] Cerebral Cerebral Disease Active 2019-0 [facility] hypoperfus hypoperfus 2-05 Ella kes - ion ion 00:00: Medical 00 [facility] Hypertensi Hypertensi Disease Active 2020-[address] ve crisis ve crisis 2-05 [facility] - 00:00: Medical [facility] Atrial Atrial Disease Active 2019-[address] [facility] [address] fibrillati fibrillati 2-04 Ella kes - on on 00:00: Medical [facility] Hypertensi Hypertensi Disease Active 2020-[address] on on 2-04 [facility] - 00:00: Medical [facility] Carotid Carotid Disease Active 2019-[address] [facility] stenosis, stenosis, 2-04 [facility] - left left 00:00: Medical [facility] Acute Acute Disease Active 2020-[address] [facility] ischemic ischemic 2-03 [facility] - stroke stroke 00:00: Medical 00 [facility] RUE RUE Disease Active 2020-[address] [facility] [address] weakness weakness 2-02 [facility] - 00:[facility]: Medical Center Allergies, Adverse Reactions, Alerts Allergy Allergy Status Severity Reaction(s) Onset Inactive Treating Comm ents Source Name Type Date Date Clinician Meperidi Propensi Active Nausea And Per [facility] to Vomiting 05-17 daughter [facility] - adverse 00:00: Medical reaction 00 Center s Amlodipi Propensi Active 2018-[address] ne ty to 2- [facility] - adverse 00:00: Medical reaction 00 Center s Hydrocod Propensi Active 2018-[address] one-Acet ty to - [facility] - aminophe adverse 00:00: Medical n reaction 00 Center s Morphine Propensi Active 2018-[address] ty to 2- [facility] - adverse 00:00: Medical reaction 00 Center s Baclofen Propensi Active Other (See 2016-[address] ty to Comments) 06-06 [facility] - adverse 00:00: Medical reaction 00 Center s Propoxyp Propensi Active Nausea And 2016-[address] hene ty to Vomiting 06-06 [facility] - Napsylat adverse 00:00: Medical e reaction 00 Center s Cycloben Propensi Active Nausea And 2015-[address] zaprine ty to Vomiting 06-02 [facility] - adverse 00:00: Medical reaction 00 Center s Codeine Propensi Active Nausea And 2015-[address] [facility] ty to Vomiting, 06-01 [facility] - adverse Palpitations 00:00: Med ical reaction , Hives 00 Center s Social History Social Habit Start Date Stop Date Quantity Comments Source History of tobacco [facility] sm[facility] use [facility] History SDOH [facility] - Alcohol Std Drinks [facility] Binge Medical Carolee ter Sex Assigned At [facility] Cigarettes smoked 2019-08-30 2019-08-[address] [facility] - current (pack per 00:00:00 00:00:00 Medical Center day) - Reported Tobacco use and 2019-08-30 2019-08-30 Never used [facility] - exposure 00:00:00 00:00:00 [facility] Alcohol intake 2019-08-30 2019-08-30 Current [facility] Marc es - 00:00:00 00:00:00 non-drinker of Medical Ce nter alcohol (finding) History SDOH 2019-03-31 2019-03-[address] [facility] - Alcohol Frequency 00:00:00 00:00:00 Medical Center Smoking Status Start Date Stop Date Source Former smoker 2019-08-30 00:00:00 2019-08-30 00:00:[address] [facility] Medications Ordered Filled Start Stop Current Ordering Indication Dosage Frequency Signature Comments Components Source Medication Medication Date Date Medication? Clinician (SIG) Name Name aspirin 325 2020-0 Yes 325mg QD Take [address] MG tablet 5-27 mg by [facility] - 10:35: mouth Medical 24 daily. Cameron ticagrelor 2020-0 Yes 90mg Q.5D Take [address] (BRILINTA) 5-27 by mouth 2 Marc es - 90 mg Tab 10:35: (two) Medical tablet 24 times Center daily. torsemide 2020-0 Yes 20mg QD Take [address] (DEMADEX) 5-20 by mouth [facility] - 20 MG 09:36: daily. Medical tablet 26 Cameron azilsartan 2020-0 Yes 80mg QD Take [address] medoxomil 5-20 by mouth [facility] - (EDARBI) 80 09:31: daily . Med ical mg Tab 59 Center ranitidine 2019-0 Yes 150mg QD Take [address] (ZANTAC) 5-20 mg by [facility] - 150 MG 09:31: mouth Medical capsule 59 every Center evening . tamsulosin 2019-0 Yes .4mg QD Take 1 [facility] (FLOMAX) 2-18 capsule [facility] - 0.4 mg Cap 00:00: (0.4 mg Medi jayce 24 hr 00 total) by Center capsule mouth daily. allopurinol 2020-0 Yes 100mg QD Take [address] (ZYLOPRIM) 2-17 mg by [facility] - 100 MG 18:25: mouth Medical tablet 17 daily. Cameron colchicine 2020-0 Yes .6mg Take 0.[address] (COLCRYS) 2-17 mg by [facility] - 0.6 mg 18:25: mouth as Medical tablet 17 needed. Cameron gabapentin 2020-0 Yes 300mg Q.[id number] Take [address] (NEURONTIN) 2-17 [id number] mg by L ukes - 300 MG [...] morning on tablet an empty stomach. hydrALAZINE 2019-0 Yes 100mg Q.[id number] Take [address] (APRESOLINE 2-17 [id number] tablet [facility] - ) 100 MG 00:00: 3D (100 mg Medica l tablet 00 total) by Center mouth 3 (three) times daily. melatonin 2019-0 Yes 10mg QD Take [address] 10 mg Tab 2-17 by mouth [facility] - 00:00: nightly. [address] pantoprazol 0 Yes 40mg QD Take [address] e 2-17 tablet (40 [facility] - (PROTONIX) 00:00: mg total) Me dical 40 MG 00 by mouth Center tablet daily. cloNIDine 2020- No .2mg QD Take 1 [facility] HCl 2-17 02-16 tablet [facility] - (CATAPRES) 00:00: 23:59 (0.2 mg Med ical 0.2 MG 00 :00 total) by Center tablet mouth nightly. atorvastati 2019-2020- No 80mg QD Take [address] n (LIPITOR) 2-17 02-16 tablet (80 L ukes - 80 MG 00:00: 23:59 mg total) Medica l tablet 00 :00 by mouth Center nightly. Procedures This patient has no known procedures. Plan of Care Planned Activity Planned Date Details Comments Source Future Scheduled 2020-04-[address] [facility] - Test 00:00:00 (12+) [code = Medical Center DEPRESSION SCREENING (12+)] Future Scheduled 2019-12-[address] [facility] - Test 00:00:00 (#1) [code = Medical Center INFLUENZA VACCINE (#1)] Future Scheduled 2019-04-13 [...] ID 2020-05-07 2020-05-07 Orders Doctor SHILPA 1.2.840.114 [id number] 00:00:00 00:00:00 Only Unassigned, KAILYN [id number] Sells [facility] 4.2.7.2.686 [id number] [id number] 2020-05-03 2020-05-03 Transition Jaz Castillo 1.2.840.114 [id number] 00:00:00 00:00:00 of Care Ermias Ly [id number] [place] 4.2.7.2.686 [id number] 2020-04-26 2020-05-02 Hospital Zachary Mccall [facility] 1.2.840 .114 [id number] 19:53:00 21:15:00 Encounter Debra [facility] Margie [id number] Clear 4.2.7.2.686 [place] [id number] Hospital 109 ([facility]) 2020-04-19 2020-04-19 Transition Jaz Castillo 1.2.840.114 [id number] 00:00:00 00:00:00 of Care Ermias Ly 350.1.13.10 [place] 4.2.7.2.686 [id number] 2020-04-19 2020-04-19 Patient Tony NCJAYESH 1.2.840.114 [id number] 00:00:00 00:00:00 Outreach Rojelio PRIMARY [id number] [facility]ly [facility] 4.2.7.2.686 PAVILLION [id number] 2020-03-25 2020-04-18 Hospital ColeenKirsten millan 1.2.8 40.114 [id number] 20:15:00 20:11:00 Encounter Fred Mccoy 350.1.13.10 Cassi [facility] 4.2.7.2.686 [id number] 2020-04-02 2020-04-02 Anesthesia Rissa [facility] 1.2.840.114 [id number] 16:49:00 17:43:00 Abhinav LEDESMA 350.1.13.10 SCIENCES 4.2.7.2.686 BLDG [id number] 020 2020-03-25 2020-03-25 Telephone Khai Carrasco [facility] 1.2.840.114 [id number] 00:00:00 00:00:00 [facility] [employer] [id number] Clear 4.2.7.2.686 Guerra [id number] Medical [facility] Office Building 2020-01-25 2020-01-25 Transition Jaz Castillo 1.2.840.114 [id number] 00:00:00 00:00:00 of Care Ermias Ly 350.1.13.10 [place] 4.2.7.2.686 [id number] 2020-01-23 2020-01-24 Hospital Unknown, Attending [facility] 1.2.84 0.114 [id number] 10:26:00 11:59:00 Encounter Khai Carrasco no [facility] 350.1.13. 10 Clear 4.2.7.2.686 Guerra [id number] Hospital 111 ([facility]) 2020-01-24 2020-01-24 Telephone Elvin Khai [facility] 1.2.840.114 [id number] 00:00:00 00:00:00 [facility] [employer] [id number] Clear 4.2.7.2.686 Guerra [id number] Medical 196 Office Building 2020-01-22 2020-01-22 Academic Support Specialist Carlos Vargas [facility] 1.2.840.114 [id number] 12:34:09 12:49:09 Visit Lab Main José Miguel 350.1.13.10 [place] 4.2.7.2.686 Professio [id number] [address] 2020-01-22 2020-01-22 Orders Doctor SHILPA 1.2.840.114 [id number] 00:00:00 00:00:00 Only Unassigned, KAILYN 350.1.13.10 [facility] 4.2.7.2.686 [id number] [id number] 2020-01-17 2020-01-17 Academic Support Specialist c-Lab [facility] 1.2.840.114 [id number] 08:19:12 08:49:12 Visit HEALTH 350.1.13.10 CLINICS 4.2.7.2.686 [id number] [facility] 2020-01-15 2020-01-15 Academic Support Specialist Vls-Lab [facility] 1.2.840.114 [id number] 12:07:39 12:22:39 Visit SPECIALTY 350.1.13.10 CARE 4.2.7.2.686 [facility] [id number] TORRANCEPerla [address] [place] [address] 2020-01-15 2020-01-15 Laboratory Only, [facility] 1.2.840.114 [id number] 10:08:01 10:23:01 Only Test [place] 350.1.13.10 [place] 4.2.7.2.686 [place] [id number] [facility] 2020-01-15 2020-01-15 Orders Doctor SHILPA 1.2.840.114 [id number] 00:00:00 00:00:00 Only Unassigned, KAILYN 350.1.13.10 [facility] 4.2.7.2.686 [id number] 2020-01-08 2020-01-08 Office ElvinKhai [facility] 1.2.840.114 [id number] 10:52:01 16:03:43 Visit [facility] 350.1.13.10 [place] 4.2.7.2.686 [place] [id number] Medical [facility] Office Building Results Test Description Test Time Test Comments Results Result Comments Source SARS-COV2/RT-PCR ([facility]) 2019-09-07 06:43:00 Test Item Value Reference Range Interpretation Comme nts SARS-COV2/RT-PCR (test code = 2710128) Not Detected Not Detected, N egative SARS-COV-2 PERFORMING LAB (test code = [facility] 2320392) Negative results do not preclude SARS-CoV-2 infection [...] of the Act.Fact Sheet for Healthcare Pro viders:https://www.Protecode/Documents/Xpert%20Xpress%20SARS%20CoV-2/Fact%20Sh eets/302-3802%80UBRP-VUF-8%20HEALTHCARE%20PROVIDERS%20FACT%20SHEET.pdfFact Sheet for Healthcare Patients:https://www.Excelimmune/Documents/Xpert%20Xpress%20SARS%20CoV-2/Fact%20Sheets/302-3801%20SARS-COV -2%20PATIENT%20FACT%20SHEET.pdfPerforming Laboratory:[facility].[place], [place] [id number] PLATELET AGGREGATION 2019-09-06 11:11:00 Test Item Value Reference Range Interpretation Comments POC-P2Y12 PLATELET AGG (GIFTY) (test 79 PRU code = 2303) RANGE INFORMATION: PRU reference range is 194-418. Post Drug Results: Lower PRU levels are associated with expected antiplatelet effect. Values may be below the stated reference range above. The post-drug PRU values reported in the VerifyNow P2Y12 package insert are 18-435.POCT-ASPIRIN PLATELET [id number] 11:08:00 Test Item Value Reference Range Interpretation Comments POC-ASPIRIN PLATELET AGG (BEAKER) 385 ARU (test code = 2302) RANGE INFORMATION: 350-549 ARU Therapeutic range for platelet function. 550-700 ARU Non-Therapeutic range for platelet function.BASIC METABOLIC [id number] 10:35:00 Test Item Value Reference Range Interpretation [...] S NOT APPLICABLE FOR DIALYSIS PATIEN TS. Steel Estimator ID [facility] FCBC W/PLT COUNT & AUTO [id number] 10:33:00 Test Item Value Reference Range Interpretation [...] 0-1 PERCENT (BEAKER) (test code = 2801) [id number] 10:12:00 Test Item Value Reference Range Interpretation [...] is2.5-3.5 for patients wiht mechanical heart valves.POCT-GLUCOSE [id number] 12:47:00 Test Item Value Reference Range Interpretation Comments POC-GLUCOSE METER 133 mg/dL 70-110 H : TESTED A T [facility] 6720 (BEAKER) (test code [facility], = 1538) [address]2613: Steel Estimator/Techni gretel ID = [id number] for TSEG GAI, TSIGHEREDA POCT-GLUCOSE [id number] 07:59:00 Test Item Value Reference Range Interpretation Comments POC-GLUCOSE METER 125 mg/dL 70-110 H : TESTED A T [facility] 6720 (BEAKER) (test code [facility], = 1538) 35117: Steel Estimator/Techni gretel ID = [id number] for TSEG GAI, TSIGHEREDA POCT-GLUCOSE [id number] 21:06:00 Test Item Value Reference Range Interpretation Comments POC-GLUCOSE METER 192 mg/dL 70-110 H : TESTED A T [facility] 6720 (BEAKER) (test code = [facility], 1538) 32120: Steel Estimator/Techni gretel ID = [id number] for DE NNIS, MALIHA POCT-GLUCOSE [id number] 17:33:00 Test Item Value Reference Range Interpretation Comments POC-GLUCOSE METER 124 mg/dL 70-110 H : TESTED A T [facility] 6720 (BEAKER) (test code [facility], = 1538) 12242: Steel Estimator/Techni gretel ID = [id number] for TSEG GAI, TSIGHEREDA POCT-GLUCOSE [id number] 11:50:00 Test Item Value Reference Range Interpretation Comments POC-GLUCOSE METER 102 mg/dL 70-110 : TESTED A T [facility] 6720 (BEAKER) (test code [facility], = 1538) 01967: Steel Estimator/Techni gretel ID = [id number] for TSEG GAI, TSIGHEREDA POCT-GLUCOSE [id number] 07:44:00 Test Item Value Reference Range Interpretation Comments POC-GLUCOSE METER 96 mg/dL 70-110 : [facility] (BEAKER) (test code [facility], = 1538) 17243: Steel Estimator/Techni gretel ID = [id number] for FRANCESCA BRYANA POCT-GLUCOSE [id number] 22:28:00 Test Item Value Reference Range Interpretation Comments POC-GLUCOSE METER 201 mg/dL 70-110 H : Notified RN/MD: (GIFTY) (test code = TESTED AT [place] [address] 1538) [facility], [address]: Steel Estimator/Techni gretel ID = [id number] for LATHBRIDGE, AMRITA ICE HEMOGLOBIN AND [id number] 11:01:00 Test Item Value Reference Range Interpretation Comments HEMOGLOBIN (BEAKER) (test code = 9.3 GM/DL 11.2-15.7 L 410) HEMATOCRIT (BEAKER) (test code = 28.8 % 34.1-44.9 L 411) Steel Estimator ID - [id number]-GLUCOSE [id number] 23:42:00 Test Item Value Reference Range Interpretation Comments POC-GLUCOSE METER 158 mg/dL 70-110 H : Notified RN/MD: (GIFTY) (test code = TESTED AT [place] [address] 1538) [facility], [address]: Steel Estimator/Techni gretel ID = [id number] for LATHBRIDGE, AMRITA ICE POCT-GLUCOSE [id number] 12:06:00 Test Item Value Reference Range Interpretation Comments POC-GLUCOSE METER 157 mg/dL 70-110 H : [facility] (BEAKER) (test code [facility], = 1538) 34792: Steel Estimator/Techni gretel ID = [id number] for LIZ BRYAN [id number] 06:57:00 Test Item Value Reference Range Interpretation Comments MAGNESIUM (BEAKER) (test code = 1.7 mg/dL 1.6-2.6 627) Steel Estimator ID - KEARA WBASIC METABOLIC [id number] 06:57:00 Test Item Value Reference Range Interpretation [...] S NOT APPLICABLE FOR DIALYSIS PATIEN TS. Steel Estimator ID - KEARA WHEMOGLOBIN AND [id number] 05:42:00 Test Item Value Reference Range Interpretation Comments HEMOGLOBIN (BEAKER) (test code = 8.3 GM/DL 11.2-15.7 L 410) HEMATOCRIT (BEAKER) (test code = 26.4 % 34.1-44.9 L 411) Steel Estimator ID - [id number]-GLUCOSE [id number] 22:26:00 Test Item Value Reference Range Interpretation Comments POC-GLUCOSE METER 137 mg/dL 70-110 H : TESTED A T [facility] 6720 (BEAKER) (test code = HUMBERTO Mackenzie [facility], 1538) [address]: Steel Estimator/Techni gretel ID = [id number] for MALLORY GRAHAM RAD, CHEST, 1 VIEW, NON [id number] 21:41:00Reason for exam:->shortness of breath, coughShould this [...] Annelise Davis Verified Date/Time: 05/25/2019 21:41:23 POCT-GLUCOSE [id number] 16:37:00 Test Item Value Reference Range Interpretation Comments POC-GLUCOSE METER 217 mg/dL 70-110 H : TESTED A T [facility] 6720 (BEAKER) (test code = [facility], 1538) 43909: Steel Estimator/Techni gretel ID = [id number] for RO DGERS, JAMECA POCT-GLUCOSE [id number] 13:05:00 Test Item Value Reference Range Interpretation Comments POC-GLUCOSE METER 196 mg/dL 70-110 H : TESTED A T [facility] 6720 (BEAKER) (test code = [facility], 1538) 47785: Steel Estimator/Techni gretel ID = [id number] for RO DGERS, JAMECA POCT-GLUCOSE [id number] 08:49:00 Test Item Value Reference Range Interpretation Comments POC-GLUCOSE METER 95 mg/dL 70-110 : TESTED A T [facility] 6720 (BEAKER) (test code = [facility], 1538) 56957: Steel Estimator/Techni gretel ID = [id number] for RODG ERS, ROGERIOECA HEMOGLOBIN AND [id number] 05:24:00 Test Item Value Reference Range Interpretation Comments HEMOGLOBIN (BEAKER) (test code = 8.4 GM/DL 11.2-15.7 L 410) HEMATOCRIT (BEAKER) (test code = 27.0 % 34.1-44.9 L 411) Steel Estimator ID - [id number]-GLUCOSE [id number] 22:08:00 Test Item Value Reference Range Interpretation Comments POC-GLUCOSE METER 164 mg/dL 70-110 H : TESTED A T [facility] 6720 (BEAKER) (test code = [facility], 1538) 88465: Steel Estimator/Techni gretel ID = [id number] for MALLORY GRAHAM POCT-GLUCOSE [id number] 12:57:00 Test Item Value Reference Range Interpretation Comments POC-GLUCOSE METER 156 mg/dL 70-110 H : TESTED A T [facility] 6720 (BEAKER) (test code = [facility], 1538) 09405: Steel Estimator/Techni gretel ID = [id number] for NITA GRANGER POCT-GLUCOSE [id number] 08:38:00 Test Item Value Reference Range Interpretation Comments POC-GLUCOSE METER 102 mg/dL 70-110 : TESTED A T [facility] 6720 (BEAKER) (test code = [place]O [place], 1538) [address]: Steel Estimator/Techni gretel ID = [id number] for NITA GRANGER BASIC METABOLIC [id number] 06:30:00 Test Item Value Reference Range Interpretation [...] S NOT APPLICABLE FOR DIALYSIS PATIEN TS. Steel Estimator ID - GALAPCBC (HEMOGRAM ONLY)2019-05-24 05:51:00 Test [...] 0-0 (BEAKER) (test code = 413) POCT-GLUCOSE [id number] 18:38:00 Test Item Value Reference Range Interpretation Comments POC-GLUCOSE METER 243 mg/dL 70-110 H : Notified RN/MD: (BEAKER) (test code = TESTED AT [facility] 4592 1140) [facility], [address]: Steel Estimator/Techni gretel ID = [id number] for Keiry Owens BASIC METABOLIC [id number] 06:25:00 Test Item Value Reference Range Interpretation [...] S NOT APPLICABLE FOR DIALYSIS PATIEN TS. Steel Estimator ID - GALAPCBC (HEMOGRAM ONLY)2019-05-23 05:56:00 Test [...] 0-0 (BEAKER) (test code = 413) POCT-GLUCOSE [id number] 00:29:00 Test Item Value Reference Range Interpretation Comments POC-GLUCOSE METER 126 mg/dL 70-110 H : TESTED A T [facility] 6720 (BEAKER) (test code = [place] [place], 1538) [address]: Steel Estimator/Techni gretel ID = [id number] for MASON PHELPS CBC W/PLT COUNT & AUTO [id number] 06:36:00 Test Item Value Reference Range Interpretation [...] PERCENT (BEAKER) (test code = 2801) POCT-GLUCOSE [id number] 06:11:00 Test Item Value Reference Range Interpretation Comments POC-GLUCOSE METER 111 mg/dL 70-110 H : TESTED Eva Garcia [facility] 6720 (BEAKER) (test code = [place] [place], 1538) [address]: Steel Estimator/Techni gretel ID = [id number] for RAFAEL CARBAJAL POCT-GLUCOSE [id number] 18:56:00 Test Item Value Reference Range Interpretation Comments POC-GLUCOSE METER 137 mg/dL 70-110 H : Notified RN/MD: (BEAKER) (test code = TESTED AT [facility] 3336 8257) [place], [address]: Steel Estimator/Techni gretel ID = [id number] for DANDY ESTRADA [id number] 13:58:00 Test Item Value Reference Range Interpretation Comments POTASSIUM (BEAKER) (test code = 3.9 meq/L 3.5-5.1 379) Steel Estimator ID - MALOU [id number] 13:58:00 Test Item Value Reference Range Interpretation Comments MAGNESIUM (BEAKER) (test code = 1.8 mg/dL 1.6-2.6 627) Steel Estimator ID - MALOU FCBC (HEMOGRAM ONLY)2019-05-21 13:41:00 [...] 0-0 (BEAKER) (test code = 413) POCT-GLUCOSE [id number] 13:11:00 Test Item Value Reference Range Interpretation Comments POC-GLUCOSE METER 164 mg/dL 70-110 H : Notified RN/MD: (GIFTY) (test code = TESTED AT [facility] 6720 1538) LEONARDDANUTA [facility], [address]: Steel Estimator/Techni gretel ID = [id number] for DANDY WINSTON URIC [id number] 10:43:00 Test Item Value Reference Range Interpretation Comments URIC ACID (BEAKER) (test code = 5.7 mg/dL 2.6-7.2 773) Steel Estimator ID - MALOU FBASIC METABOLIC [id number] 06:40:00 Test Item Value Reference Range Interpretation [...] S NOT APPLICABLE FOR DIALYSIS PATIEN TS. Steel Estimator ID - KEARA WPOCT-GLUCOSE [id number] 06:37:00 Test Item Value Reference Range Interpretation Comments POC-GLUCOSE METER 156 mg/dL 70-110 H : TESTED A T [facility] 6720 (BEAKER) (test code = LEONARDMIKE Mackenzie [facility], 1538) [address]: Steel Estimator/Techni gretel ID = [id number] for VA RELA, RAJ CBC (HEMOGRAM ONLY)2019-05-21 [...] 0-0 (BEAKER) (test code = 413) POCT-GLUCOSE [id number] 00:42:00 Test Item Value Reference Range Interpretation Comments POC-GLUCOSE METER 155 mg/dL 70-110 H : TESTED A T [facility] 6720 (BEAKER) (test code = HUMBERTO Mackenzie [facility], 1538) [address]: Steel Estimator/Techni gretel ID = [id number] for VA RELA, RAJ [id number] 19:49:00 Test Item Value Reference Range Interpretation Comments FERRITIN (BEAKER) (test code = 361) 29 ng/mL 5-275 Steel Estimator ID - TERRI [id number] 18:51:00 Test Item Value Reference Range Interpretation Comments TRANSFERRIN (BEAKER) (test code = 211 mg/dL 174-382 541) Steel Estimator ID - TERRI CARL, TIBC, % SAT. (WITHOUT FERRITIN)2019-05-20 18:51:00 Test Item Value Reference Range Interpretation Comments IRON (BEAKER) (test code = 547) 14.0 ug/dL 40.0-160.0 L TOTAL IRON BINDING CAPACITY 264 ug/dL 250-450 (BEAKER) (test code = 769) IRON % SATURATION (2) (BEAKER) 5 % 20-55 L (test code = 2590) Steel Estimator ID - TERRI MRAD, ANKLE, 1 VIEW, [id number] 18:09:00Reason for exam:- >left ankle painShould this be performed at the bedside?->YesFINAL REPORT TECHNIQUE: Two views of left ankle HISTORY: left ankle pain. COMPARISON: None. IMPRESSION:No acute displaced fracture or dislocation. Joint spaces are within normal limits.Minimal Achilles enthesopathy. Large plantar calcaneal spur and enthesopathy. Signed: Steven Lyman Verified Date/Time: 05/20/2019 18:09:20 Reading Location: [address] Consult Reading Room CBC (HEMOGRAM ONLY)2019-05-20 [...] WBC 0-0 (BEAKER) (test code = 413) [id number] 05:29:00 Test Item Value Reference Range Interpretation Comments MAGNESIUM (BEAKER) 1.9 mg/dL 1.6-2.6 Specimen slightly (test code = 627) hemolyzed Steel Estimator ID - TERRI [id number] 05:29:00 Test Item Value Reference Range Interpretation Comments PHOSPHORUS (BEAKER) 3.3 mg/dL 2.3-4.7 Specimen slightly (test code = 604) hemolyzed Steel Estimator ID - TERRI MBASIC METABOLIC [id number] 05:29:00 Test Item Value Reference Range Interpretation [...] S NOT APPLICABLE FOR DIALYSIS PATIEN TS. Steel Estimator ID - TERRI MCBC (HEMOGRAM ONLY)2019-05-20 04:51:00 [...] 0-0 (BEAKER) (test code = 413) POCT-GLUCOSE [id number] 18:36:00 Test Item Value Reference Range Interpretation Comments POC-GLUCOSE METER 101 mg/dL 70-110 : TESTED A T [facility] 6720 (BEAKER) (test code = [place], 1538) [address]: Steel Estimator/Techni gretel ID = [id number] for DANDY ESTRADA CBC (HEMOGRAM ONLY)2019-05-19 18:33:00 [...] 0-0 (BEAKER) (test code = 413) POCT-GLUCOSE [id number] 12:30:00 Test Item Value Reference Range Interpretation Comments POC-GLUCOSE METER 130 mg/dL 70-110 H : TESTED A T [facility] 6720 (BEAKER) (test code = [place], 1538) [address]: Steel Estimator/Techni gretel ID = [id number] for SH DANDY WINSTON [id number] 08:02:00 Test Item Value Reference Range Interpretation Comments PHOSPHORUS (BEAKER) (test code = 2.5 mg/dL 2.3-4.7 604) Steel Estimator ID - TERRI [id number] 08:02:00 Test Item Value Reference Range Interpretation Comments MAGNESIUM (BEAKER) (test code = 1.6 mg/dL 1.6-2.6 627) Steel Estimator ID - TERRI MBASIC METABOLIC [id number] 08:02:00 Test Item Value Reference Range Interpretation [...] S NOT APPLICABLE FOR DIALYSIS PATIEN TS. Steel Estimator ID - TERRI [id number] 07:40:00 Test Item Value Reference Range Interpretation Comments FIBRINOGEN LEVEL (BEAKER) (test 489 mg/dl 225-434 H code = 658) [id number] 07:40:00 Test Item Value Reference Range Interpretation [...] 0-0 (BEAKER) (test code = 413) POCT-GLUCOSE [id number] 00:26:00 Test Item Value Reference Range Interpretation Comments POC-GLUCOSE METER 110 mg/dL 70-110 : Notified RN/MD: (BEAKER) (test code = TESTED AT [place] [address] 1538) [facility], [address]: Steel Estimator/Techni gretel ID = [id number] for CHRIS PREEZ POCT-GLUCOSE [id number] 18:22:00 Test Item Value Reference Range Interpretation Comments POC-GLUCOSE METER 127 mg/dL 70-110 H : TESTED A T [facility] 6720 (BEAKER) (test code = [facility], 1538) [address]: Steel Estimator/Techni gretel ID = [id number] for RADHA DE LOS SANTOS POCT-GLUCOSE [id number] 12:25:00 Test Item Value Reference Range Interpretation Comments POC-GLUCOSE METER 171 mg/dL 70-110 H : TESTED A T [facility] 6720 ([facility]) (test code = [facility], 1538) [address]: Steel Estimator/Techni gretel ID = [id number] for RADHA DE [place] [id number] 04:17:00 Test Item Value Reference Range Interpretation Comments PHOSPHORUS (BEAKER) (test code = 2.0 mg/dL 2.3-4.7 L 604) Steel Estimator ID - KEARA [id number] 04:17:00 Test Item Value Reference Range Interpretation Comments MAGNESIUM (BEAKER) (test code = 1.6 mg/dL 1.6-2.6 627) Steel Estimator ID - KEARA WBASIC METABOLIC [id number] 04:17:00 Test Item Value Reference Range Interpretation [...] S NOT APPLICABLE FOR DIALYSIS PATIEN TS. Steel Estimator ID - KEARA [facility] (HEMOGRAM ONLY)2019-05-18 03:55:00 Test Item Value Reference [...] 0-0 (BEAKER) (test code = 413) POCT-GLUCOSE [id number] 18:43:00 Test Item Value Reference Range Interpretation Comments POC-GLUCOSE METER 139 mg/dL 70-110 H : [facility] ([facility]ER[facility] (test code = [place], 1538) [address]: Steel Estimator/Techni gretel ID = [id number] for RADHA DE [place]ANTOS, CAROTID STENT W [id number] 15:10:00Reason for exam:->left carotid stenosisFINAL REPORT Date [...] guidance and strict sterile technique a 6 Korean shuttle sheath was inserted through the right [...] the stent to the arterial wall with worship of the intraluminal flow and mild residual stenosis of approximately 20%. There is no evidence of platelet aggregation, or dissection. Intracranially there is worship of good antegrade flow with no evidence [...] Carrasco Verified Date/Time: 05/17/2019 15:10:42 Reading Location: [facility] [id number] Neuro Angio Reading Room POCT-GLUCOSE [id number] 12:40:00 Test Item Value Reference Range Interpretation Comments POC-GLUCOSE METER 130 mg/dL 70-110 H : TESTED A T [facility] 6720 (BEAKER) (test code = HUMBERTO Mackenzie [facility], 1538) [address]: Steel Estimator/Techni gretel ID = [id number] for RADHA DE LOS SANTOS PROTHROMBIN [id number] 11:08:00 Test Item Value Reference Range Interpretation [...] INR is2.5-3.5 for patients wiht mechanical heart valves.[id number] 09:19:00 Test Item Value Reference Range Interpretation Comments PARTIAL THROMBOPLASTIN TIME 37.6 seconds 22.5-36.0 H (BEAKER) (test code = 760) POCT-GLUCOSE [id number] 06:49:00 Test Item Value Reference Range Interpretation Comments POC-GLUCOSE METER 110 mg/dL 70-110 : TESTED A T [facility] 6720 (BEAKER) (test code = [place], 1538) [address]: Steel Estimator/Techni gretel ID = [id number] for MASON PHELPS BASIC METABOLIC [id number] 05:59:00 Test Item Value Reference Range Interpretation [...] S NOT APPLICABLE FOR DIALYSIS PATIEN TS. Steel Estimator ID - TERRI [id number] 05:35:00 Test Item Value Reference Range Interpretation Comments PARTIAL THROMBOPLASTIN TIME 38.3 seconds 22.5-36.0 H (BEAKER) (test code = 760) Prior to initiating heparinPOCT-P2Y12 PLATELET [id number] 05:34:00 Test Item Value Reference Range Interpretation Comments POC-P2Y12 PLATELET AGG (BEAKER) (test 230 PRU code = 2303) RANGE INFORMATION: PRU reference range is 194-418. Post Drug Results: Lower PRU levels are associated with expected antiplatelet effect. Values may be below the stated reference range above. The post-drug PRU values reported in the [employer] P2Y12 package insert are 18-435.POCT-ASPIRIN PLATELET [id number] 05:34:00 Test Item Value Reference Range Interpretation Comments POC-ASPIRIN PLATELET AGG (BEAKER) 564 ARU (test code = 2302) RANGE INFORMATION: 350-549 ARU Therapeutic range for platelet function. 550-700 ARU Non-Therapeutic range for platelet function.[id number] 05:34:00 Test Item Value Reference Range Interpretation [...] RED BLOOD CELLS 0 /100 WBC 0-0 (GIFTY) (test code = 413) [id number] 02:03:00 Test Item Value Reference Range Interpretation Comments PARTIAL THROMBOPLASTIN TIME 35.8 seconds 22.5-36.0 (GIFTY) (test code = 760) 6 hours after starting heparin infusion and as indicated per sliding scalePOCT- GLUCOSE [id number] 00:00:00 Test Item Value Reference Range Interpretation Comments POC-GLUCOSE METER 109 mg/dL 70-110 : TESTED A T [facility] 6720 ([facility]) (test code = [facility] Mackenzie [facility], 1538) [address]: Steel Estimator/Techni gretel ID = [id number] for RA FOURNIERMASON MORALES POCT-GLUCOSE [id number] 18:48:00 Test Item Value Reference Range Interpretation Comments POC-GLUCOSE METER 148 mg/dL 70-110 H : Notified RN/MD: ([facility]) (test code = TESTED AT [facility] 6720 1538) [facility], [address]: Steel Estimator/Techni gretel ID = [id number] for STEWART MOORE, ANGIOGRAM, [id number] 16:45:00Reason for exam:->basilar tip aneurysmFINAL REPORT Date [...] guidance and strict sterile technique a 4 Korean femoral sheath was inserted into the right radial artery. Through the sheath a 4 Korean [employer] catheter was then advanced over the wire [...] Carrascoeport Verified Date/Time: 05/16/2019 16:45:20 Reading Location: [facility] Y018 Neuro Angio Reading Room POCT-GLUCOSE [id number] 13:41:00 Test Item Value Reference Range Interpretation Comments POC-GLUCOSE METER 120 mg/dL 70-110 H : TESTED A T [facility] 6720 (BEAKER) (test code = [place] [place], 1538) [address]: Steel Estimator/Techni gretel ID = [id number] for ESVIN LAMBERT [id number] 09:24:00 Test Item Value Reference Range Interpretation [...] WBC 0-0 (BEAKER) (test code = 413) [id number] 03:01:00 Test Item Value Reference Range Interpretation [...] heart valves.Prior to initiating heparinPrior to initiating [id number] 03:01:00 Test Item Value Reference Range Interpretation Comments PARTIAL THROMBOPLASTIN TIME 32.2 seconds 22.5-36.0 (BEAKER) (test code = 760) BASIC METABOLIC [id number] 02:58:00 Test Item Value Reference Range Interpretation [...] GFR I S NOT APPLICABLE FOR DIALYSIS PATINOAH TS. Steel Estimator ID - TERRI MPLATELET [id number] 02:45:00 Test Item Value Reference Range Interpretation Comments PLATELET COUNT (BEAKER) (test 231 K/CU MM 150-450 code = 756) Steel Estimator ID - [id number], CEREBRAL PERFUSION [id number] 01:22:00FINAL REPORT CT cerebral perfusion analysis. Comparison: [...] at approximately 1:20 AM 05/16/2018. Signed: [facility] Verified Date/Time: 05/16/2019 01:22:48 [facility], CTANGIO [id number] 01:09:00 FINAL REPORT EXAM: CT, CT Angio, [...] approximately 1:05 AM 05/16/2019. Signed: Fabiano Montoya [facility] Verified Date/Time: 05/16/2019 01:09:25 [facility], CAROTID, ANGIO 2019-05-16 01:09:00FINAL REPORT [...] Signed: Fabiano Montoya Verified Date/Time: 05/16/2019 01:09:25 [facility], BRAIN/STROKE PROTOCOL 2019-05-15 23:34:00FINAL REPORT EXAM: CT [...] Fabiano Montoya Verified Date/Time: 05/15/2019 23:34:22 POCT-GLUCOSE [id number] 20:57:00 Test Item Value Reference Range Interpretation Comments POC-GLUCOSE METER 119 mg/dL 70-110 H : TESTED A T [facility] 6720 (BEAKER) (test code = [facility], 1538) [address]: Steel Estimator/Techni gretel ID = [id number] for CARLINE HARDING PROTHROMBIN [id number] 19:47:00 Test Item Value Reference Range Interpretation [...] is2.5-3.5 for patients wiht mechanical heart valves.POCT-GLUCOSE [id number] 17:51:00 Test Item Value Reference Range Interpretation Comments POC-GLUCOSE METER 125 mg/dL 70-110 H : TESTED A T [facility] 6720 (BEAKER) (test code = [facility] [employer] [facility], 1538) [address]: Steel Estimator/Techni gretel ID = [id number] for BR OWN, MARIA DEL CARMEN POCT-GLUCOSE [id number] 11:55:00 Test Item Value Reference Range Interpretation Comments POC-GLUCOSE METER 169 mg/dL 70-110 H : TESTED A T [facility] 6720 (BEAKER) (test code = [facility], 1538) [address]: Steel Estimator/Techni gretel ID = [id number] for BR OWN, MARIA DEL CARMEN HEMOGLOBIN [id number] 10:46:00 Test Item Value Reference Range Interpretation Comments HEMOGLOBIN A1C (BEAKER) (test code = 5.8 % 4.3-6.1 368) POCT-GLUCOSE [id number] 08:50:00 Test Item Value Reference Range Interpretation Comments POC-GLUCOSE METER 134 mg/dL 70-110 H : TESTED A T [facility] 6720 (BEAKER) (test code = [facility], 1538) [address]: Steel Estimator/Techni gretel ID = [id number] for BR OWN, MARIA DEL CARMEN VITAMIN B12 AND [id number] 07:44:00 Test Item Value Reference Range Interpretation Comments VITAMIN B12 (BEAKER) (test code = 472 pg/mL 213-816 774) FOLATE (BEAKER) (test code = 362) 19.4 ng/mL >=7.0 Steel Estimator ID - MALOU FPOCT-GLUCOSE [id number] 06:57:00 Test Item Value Reference Range Interpretation Comments POC-GLUCOSE METER 114 mg/dL 70-110 H : TESTED A T [facility] 6720 (BEAKER) (test code = [facility], 1538) [address]: Steel Estimator/Techni gretel ID = [id number] for DE NNIS, MALIHA LIPID [id number] 06:53:00 Test Item Value Reference Range Interpretation [...] Borderline 130-159 High 160-189 Very High >=190 Steel Estimator ID - LAKIABASIC METABOLIC [id number] 06:53:00 Test Item Value Reference Range Interpretation [...] S NOT APPLICABLE FOR DIALYSIS PATIEN TS. Steel Estimator ID - PIAYA LCBC (HEMOGRAM ONLY)2019-05-15 06:29:00 [...] (test code = 413) MR, BRAIN, WITHOUT [id number] 04:06:00FINAL REPORT EXAM: MR, BRAIN, WITHOUT CONTRAST [...] Rosario MDReport Verified Date/Time: 05/15/2019 04:06:56 POCT-GLUCOSE [id number] 21:18:00 Test Item Value Reference Range Interpretation Comments POC-GLUCOSE METER 95 mg/dL 70-110 : TESTED A T [facility] 6720 (BEAKER) (test code = HUMBERTO Gurdeep [facility], 1538) [address]: Steel Estimator/Techni gretel ID = [id number] for MALIHA COWAN BASIC METABOLIC [id number] 14:37:00 Test Item Value Reference Range Interpretation [...] APPLICABLE FOR DIALYSIS PATIEN TS. BASIC METABOLIC [id number] 13:34:00 Test Item Value Reference Range Interpretation [...] S NOT APPLICABLE FOR DIALYSIS PATIEN TS. [id number] 12:49:00 Test Item Value Reference Range Interpretation [...] mechanical heart valves.CBC W/PLT COUNT & AUTO [id number] 12:48:00 Test Item Value Reference Range Interpretation [...]
--- NOTE | 2020-10-29 13:39 | RAD REPORT ---
EXAM DESCRIPTION: CT - Head Brain Wo Cont - 10/29/2020 1:29 pm CLINICAL HISTORY: Headache COMPARISON: 2019 TECHNIQUE: Computed axial tomography of the head was obtained. IV contrast was not requested. All CT scans are performed using dose optimization technique as appropriate and may include automated exposure control or mA/KV adjustment according to patient size. 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 Artifact from surrounding metal does ob scure adjacent detail. No gross intracranial bleed is seen. The ventricles are normal in caliber. No extra-axial fluid collection is noted. Mild to moderate low-density areas within periventricular, deep and subcortical white matter likely r epresent ischemic changes secondary to small vessel disease. Fluid within the sinuses/ mastoids is not seen. IMPRESSION: Post surgical changes a basilar aneurysm repair No acute intracranial abnormality seen
[2020-10-29] MEDS ORDERED: TRAMADOL 37.5mg/APAP 325mg PER TAB ONE (13:51)
--- NOTE | 2020-10-29 13:51 | RAD REPORT ---
EXAM DESCRIPTION: RAD - Shoulder Right 2 View - 10/29/2020 1:38 pm CLINICAL HISTORY: Right shoulder pain FINDINGS: No fracture or dislocation is seen. Moderate osteoarthritis AC joint. Bones appear osteopo rotic
[2020-10-29] MEDS ORDERED: TRAMADOL HCL 50 MG TAB ONE (14:07)
--- NOTE | 2020-10-29 15:37 | ER ---
Nurse's Notes [facility] Name: Bharati Lancaster Age: 80 yrs Sex: Female : 1940 Arrival Date: 10/29/2020 Time: 12:11 Bed 20 Private MD: Casa Morton V Diagnosis: Pain in right shoulder;Unspecified disturbances of smell and taste Presentation: 10/29 12:48 Chief complaint: Patient's son or daughter states: She was getting into bed Wednesday ph night, slipped while getting out of wheelchair and grabbed onto bedrail w/ R arm, was able to lower herself back into the wheelchair but is now having R arm pain. Daughter also states that pt began having loss of smell and taste yesterday, has been vaccinated for COVID. Coronavirus screen: muscle pain, nausea, loss of taste or smell, Client presents with at least one sign or symptom that may indicate coronavirus-19. Standard/surgical mask placed on the client. Provider contacted for isolation considerations. Ebola Screen: No symptoms or risks identified at this time. Initial Sepsis Screen: Does the patient meet any 2 criteria? No. Patient's initial sepsis screen is negative. Does the patient have a suspected source of infection? No. Patient's initial sepsis screen is negative. Risk Assessment: Do you want to hurt yourself or someone else? Patient reports no desire to harm self or others. Onset of symptoms was October 29, 2020. 12:48 Method Of Arrival: Wheelchair ph 12:48 Acuity: GONZALEZ 3 ph Historical: - Allergies: 12:51 Baclofen; ph 12:51 ceftriaxone; ph 12:51 Codeine; ph 12:51 codeine sulfate; ph 12:51 Cyclobenzaprine; ph 12:51 Darvocet-N 100; ph 12:51 Demerol; ph 12:51 Hydrocodone-Acetaminophen; ph 12:51 Morphine; ph 12:51 PENICILLINS; ph 12:51 plastic tape; ph 12:51 Propoxyphene N-Acetaminophen; ph 12:51 Tape; ph - Immunization history:: Client reports receiving the 1st dose of the Covid vaccine, Harpreet and Harpreet. - Social history:: Smoking status: Patient denies any tobacco usage or history of. Screenin:57 Abuse screen: Denies threats or abuse. Denies injuries from another. Nutritional ph screening: No deficits noted. Tuberculosis screening: No symptoms or risk factors identified. Fall Risk None identified. Assessment: 12:57 General: Appears in no apparent distress. uncomfortable, Behavior is calm, cooperative, ph appropriate for age. Pain: Complains of pain in anterior aspect of right shoulder and right axilla Pain does not radiate. Pain currently is 7 out of 10 on a pain scale. Quality of pain is described as crampy, Pain began Is continuous. Neuro: Level of Consciousness is awake, alert, obeys commands, Oriented to person, place, time, situation. Cardiovascular: Capillary refill < 3 seconds Patient's skin is warm and dry. Respiratory: Airway is patent Respiratory effort is even, unlabored, Respiratory pattern is regular, symmetrical. GI: Abdomen is round non-distended. : No signs and/or symptoms were reported regarding the genitourinary system. EENT: No signs and/or symptoms were reported regarding the EENT system. Derm: No signs and/or symptoms reported regarding the dermatologic system. Musculoskeletal: Reports pain in right arm since X 2 days. . 14:25 Reassessment: Patient appears in no apparent distress at this time. No changes from ph previously documented assessment. Patient and/or family updated on plan of care and expected duration. Pain level reassessed. Patient is alert, oriented x 3, equal unlabored respirations, skin warm/dry/pink. 15:35 Reassessment: Patient appears in no apparent distress at this time. No changes from ld1 previously documented assessment. Patient and/or family updated on plan of care and expected duration. Pain level reassessed. Patient is alert, oriented x 3, equal unlabored respirations, skin warm/dry/pink. Vital Signs: 12:48 BP 115 / 47; Pulse 55; Resp 16; Temp 98.9(O); Pulse Ox 99% on R/A; Weight 78.93 kg; ph Height 5 ft. 5 in. (165.10 cm); 12:57 BP 149 / 79; Pulse 88; Resp 18; Pulse Ox 95% on R/A; ph 14:25 BP 139 / 48; Pulse 73; Resp 18; Pulse Ox 96% on R/A; ph 15:35 BP 119 / 107; Pulse 76; Resp 16; Pulse Ox 99% on R/A; ld1 12:48 Body Mass Index 28.95 (78.93 kg, 165.10 cm) ph ED Course: 12:11 Patient arrived in ED. mr 12:12 Casa Morton MD is Private Physician. mr 12:51 Triage completed. ph 12:52 Arm band placed on Patient placed in an exam room. ph 12:57 Patient has correct armband on for positive identification. Bed in low position. Call ph light in reach. Side rails up X2. Pulse ox on. NIBP on. Door closed. Noise minimized. Warm blanket given. 12:57 No provider procedures requiring assistance completed. ph 12:58 Magnus Dangelo NP is PHCP. pm1 12:58 Uvaldo Branch MD is Attending Physician. pm1 13:20 Aranza Alvarez RN is Primary Nurse. ph 13:29 CT Head Brain wo Cont In Process Unspecified. EDMS 13:38 Shoulder Right (2 View) XRAY In Process Unspecified. EDMS 14:39 Primary Nurse role handed off by Aranza Alvarez RN ld1 14:39 Heather Fiore RN is Primary Nurse. ld1 16:01 Patient did not have IV access during this emergency room visit. intact, bleeding ld1 controlled, No redness/swelling at site. Administered Medications: 13:48 Drug: traMADol 50 mg Route: PO; ph 14:00 Follow up: Response: No adverse reaction ph Outcome: 15:36 Discharge ordered by MD. pm1 16:01 Discharged to home via wheelchair, with family. ld1 16:01 Condition: stable 16:01 Discharge instructions given to patient, family, Instructed on discharge instructions, follow up and referral plans. medication usage, Demonstrated understanding of instructions, follow-up care, medications. 16:01 Patient left the ED. ld1 Signatures: Dispatcher [employer] Noa Correa mr Aranza Alvarez RN RN Magnus Dangelo NP TECHNICIAN INVENTORY SPECIALIST pm1 Heather Fiore RN RN ld1
--- NOTE | 2020-10-29 15:37 | EDPHYS ---
Physician Documentation [facility] Name: Bharati Lancaster Age: 80 yrs Sex: Female : 1940 Arrival Date: 10/29/2020 Time: 12:11 Bed 20 Private MD: [facility] ED Physician Uvaldo Branch HPI: 10/29 13:17 This 80 yrs old Female presents to ER via Wheelchair with complaints of Fall pm1 Injury, Shoulder Injury, Weakness. 13:17 Details of fall: The patient fell from an upright position, while standing, and struck pm1 a carpeted surface. 13:17 Onset: The symptoms/episode began/occurred 3 day(s) ago. Associated injuries: The pm1 patient sustained anterior aspect of right shoulder, decreased range of motion, due to pain. Severity of symptoms: in the emergency department the symptoms are unchanged. The patient has experienced a previous episode, left arm rotator cuff injury. The patient has not recently seen a physician. Patient was transferring from w/c to bed. Patient was holding onto the bed frame with her right arm and then slipped. She held onto the bed rail enough to slow down the fall to a very slow fall. But once she got to the limit of her outstretched right arm she fell to the ground. fell down less than 1 foot. Patient presenting with right shoulder pain> patient also reporting change in taste and smell that has been present for many months but appears to be worse since yesterday. Historical: - Allergies: 12:51 Baclofen; ph 12:51 ceftriaxone; ph 12:51 Codeine; ph 12:51 codeine sulfate; ph 12:51 Cyclobenzaprine; ph 12:51 Darvocet-N 100; ph 12:51 Demerol; ph 12:51 Hydrocodone-Acetaminophen; ph 12:51 Morphine; ph 12:51 PENICILLINS; ph 12:51 plastic tape; ph 12:51 Propoxyphene N-Acetaminophen; ph 12:51 Tape; ph - Immunization history:: Client reports receiving the 1st dose of the Covid vaccine, [employer]. - Social history:: Smoking status: Patient denies any tobacco usage or history of. ROS: 13:17 Constitutional: Negative for fever, chills, and weight loss, Eyes: Negative for injury, pm1 pain, redness, and discharge. 13:17 Cardiovascular: Negative for chest pain, palpitations, and edema, Respiratory: Negative for shortness of breath, cough, wheezing, and pleuritic chest pain, Abdomen/GI: Negative for abdominal pain, nausea, vomiting, diarrhea, and constipation, Back: Negative for injury and pain. 13:17 Skin: Negative for injury, rash, and discoloration, Neuro: Negative for headache, weakness, numbness, tingling, and seizure. 13:17 MS/extremity: Positive for pain, of the anterior aspect of right shoulder, Negative for deformity. 13:17 All other systems are negative. Exam: 13:17 Constitutional: This is a well developed, well nourished patient who is awake, alert, pm1 and in no acute distress. Head/Face: Normocephalic, atraumatic. 13:17 Chest/axilla: Normal chest wall appearance and motion. Nontender with no deformity. No lesions are appreciated. 13:17 Skin: Warm, dry with normal turgor. Normal color with no rashes, no lesions, and no evidence of cellulitis. 13:17 Eyes: Exam is negative for acute changes, Periorbital structures: appear normal, Extraocular movements: no acute changes, Conjunctiva: no acute changes, no injection. 13:17 ENT: Exam is negative for acute changes, Mouth: Lips: normal, Oral mucosa: normal, pink and intact, moist. 13:17 Cardiovascular: Exam negative for Rate: normal, Rhythm: regular, Pulses: no pulse deficits are appreciated. 13:17 Respiratory: Exam negative for acute changes, respiratory distress, shortness of breath. 13:17 Abdomen/GI: Exam negative for acute changes, Inspection: abdomen appears normal, Palpation: abdomen is soft and non-tender, in all quadrants. 13:17 Musculoskeletal/extremity: Extremities: grossly normal except: noted in the anterior aspect of right shoulder: tenderness, Passive range of motion intact but active range of motion limited by pain. 13:17 Neuro: Exam negative for acute changes, Orientation: is normal, Mentation: is normal, Motor: is normal, moves all fours. Vital Signs: 12:48 BP 115 / 47; Pulse 55; Resp 16; Temp 98.9(O); Pulse Ox 99% on R/A; Weight 78.93 kg; ph Height 5 ft. 5 in. (165.10 cm); 12:57 BP 149 / 79; Pulse 88; Resp 18; Pulse Ox 95% on R/A; ph 14:25 BP 139 / 48; Pulse 73; Resp 18; Pulse Ox 96% on R/A; ph 15:35 BP 119 / 107; Pulse 76; Resp 16; Pulse Ox 99% on R/A; ld1 12:48 Body Mass Index 28.95 (78.93 kg, 165.10 cm) ph MDM: 12:59 Patient medically screened. pm1 15:34 Data reviewed: vital signs. Data interpreted: Pulse oximetry: on room air is 96 %. pm1 Interpretation: normal. Counseling: I had a detailed discussion with the patient and/or guardian regarding: the historical points, exam findings, and any diagnostic results supporting the discharge/admit diagnosis, lab results, radiology results, the need for outpatient follow up, to return to the emergency department if symptoms worsen or persist or if there are any questions or concerns that arise at home. 15:44 ED course: [place] reviewed. pm1 10/29 13:17 Order name: Flu; Complete Time: 15:14 pm1 10/29 13:17 Order name: Shoulder Right (2 View) XRAY; Complete Time: 15:14 pm1 10/29 13:17 Order name: CT Head Brain wo Cont; Complete Time: 15:14 pm1 10/29 15:15 Order name: SARS-COV-2 RT PCR; Complete Time: 15:16 EDMS Administered Medications: 13:48 Drug: traMADol 50 mg Route: PO; ph 14:00 Follow up: Response: No adverse reaction ph Disposition: 10/30 07:07 Co-signature as Attending Physician, Uvaldo Branch MD I agree with the assessment and kdr plan of care. Disposition Summary: 10/29/20 15:36 Discharge Ordered Location: Home pm1 Problem: new pm1 Symptoms: have improved pm1 Condition: Stable pm1 Diagnosis - Pain in right shoulder pm1 - Unspecified disturbances of smell and taste pm1 Followup: pm1 - With: Emergency Department - When: As needed - Reason: Worsening of condition Followup: pm1 - With: Private Physician - When: 2 - 3 days - Reason: Recheck today's complaints, Continuance of care, Re-evaluation by your physician Discharge Instructions: - Discharge Summary Sheet pm1 - Shoulder Pain pm1 Forms: - Medication Reconciliation Form pm1 - Thank You Letter pm1 - Antibiotic Education pm1 - Prescription Opioid Use pm1 Prescriptions: - Tramadol 50 mg Oral Tablet - take 1 tablet by ORAL route every 8 hours as needed; 12 tablet; Refills: 0, pm1 Product Selection Permitted Signatures: Dispatcher [employer] EDMS Uvaldo Branch MD MD kdr Hall, Patricia, RN RN ph Magnus Dangelo, DIRECTOR OF PEOPLE DIRECTOR OF PEOPLE pm1 Corrections: (The following items were deleted from the chart) 10/29 14:12 13:17 CORONAVIRUS+MR.LAB.BRZ ordered. EDMS EDMS
[2020-10-29 17:25] VITALS: TEMP 98.9
[2020-10-29 17:29] VITALS: BP 119/107; O2SAT 99
== END 2020-10-29 16:01 | disposition home or self-care (01) ==
LOC: ER 12:08
DX: M25.511 Pain in right shoulder (principal); R43.8 Other disturbances of smell and taste; W01.0XXA Fall on same level from slipping, tripping and stumbling without subsequent striking against object, initial encounter; Z88.0 Allergy status to penicillin; Z88.1 Allergy status to other antibiotic agents; Z88.5 Allergy status to narcotic agent; Z88.8 Allergy status to other drugs, medicaments and biological substances; Z20.822 Contact with and (suspected) exposure to COVID-19; Z91.048 Other nonmedicinal substance allergy status
CPT/HCPCS: 87804 ×2; 70450; 73030; U0003; 99284

== ENCOUNTER 2020-11-28 21:24 | Emergency (ER) | payer OTHER ==
--- OUTSIDE RECORDS SUMMARY | 2020-11-28 21:29 | XMS REPORT | Continuity of Care Document ---
:1940 Author Organization [facility] t Address [address] [place] [address] Care Team Providers Name Role Phone Aaron [...] Unavailable Pob, Lab Main Attending Clinician Unavailable [facility] Attending Clinician Unavailable Vls-Lab Attending Clinician Unavailable Only, Test Attending Clinician Unavailable INDIA CARRASCO Attending Clinician Unavailable DALE FLORES Attending Clinician Unavailable Debra DOHERTY Admitting Clinician Jose Palma MD Admitting Clinician India Carrasco MD Admitting Clinician SHALODNA Admitting Clinician Unavailable INDIA CARRASCO Admitting Clinician Unavailable Problems Condition Condition Condition Status Onset Resolution Last Treating Co mments Source Name Details Category Date Date Treatment Clinician Date Acute Acute Disease Active [facility] blood loss blood loss 2-11 Ella kes - anemia anemia 00:00: Medical 00 [place] Gout flare Gout flare Disease Active 2020-[address] [facility] Medical [place] COPD COPD Disease Active 2019- [facility] (chronic (chronic 2 [facility] - obstructiv obstructiv 00:00: Me dical e e 00 Center pulmonary pulmonary disease) disease) Gastroesop Gastroesop Disease Active [facility] hageal hageal 2- [facility] - reflux reflux 00:00: Medical disease disease 00 [place] with with esophagiti esophagiti s s HLD HLD Disease Active [facility] (hyperlipi (hyperlipi 2- Ella kes - demia) demia) 00:00: Medical 00 [place] Hypothyroi Hypothyroi Disease Active [address] dism dism 2 [facility] - 00:00: Medical [place] Coagulopat Coagulopat Disease Active 2019-[address] hy hy 2 [facility] - 00:00: Medical [place] 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 00:00: Medica l 00 [place] Cerebral Cerebral Disease Active 2019-0 [facility] hypoperfus hypoperfus 2-05 Ella kes - ion ion 00:00: Medical 00 [place] Hypertensi Hypertensi Disease Active 2019-[address] ve crisis ve crisis 2-05 [facility] - 00:00: Medical [place] Atrial Atrial Disease Active 2019-[address] [facility] [address] fibrillati fibrillati 2-04 Ella kes - on on 00:00: Medical [place] Hypertensi Hypertensi Disease Active 2020-[address] on on 2-04 [facility] - 00:00: Medical [place] Carotid Carotid Disease Active 2019-[address] [facility] stenosis, stenosis, 2-04 [facility] - left left 00:00: Medical [place] Acute Acute Disease Active 2020-[address] [facility] ischemic ischemic 2-03 [facility] - stroke stroke 00:00: Medical 00 [place] RUE RUE Disease Active 2020-[address] [facility] weakness weakness 2-02 [facility] - 00:00: Medical [place] Allergies, Adverse Reactions, Alerts Allergy Allergy Status [...] [facility] he[facility] ty to Vomiting 2- [facility] - Napsylat adverse 00:00: Medical e reaction 00 Center s Baclofen Propensi Active Other (See 2016-[address] ty to Comments) 2 [facility] - adverse 00:00: Medical reaction 00 Center s Cycloben Propensi Active Nausea And 2015-[address] zaprine ty to Vomiting 2 [facility] - adverse 00:00: Medical reaction 00 Center s Codeine Propensi Active Nausea And 2015-[address] [facility] ty to Vomiting, 2 [facility] - adverse Palpitations 00:00: Med ical reaction , Hives 00 Center s Social History Social Habit Start Date Stop Date Quantity Comments Source History of tobacco [facility] sm[facility] use [facility] Center History SDOH [facility] - Alcohol Std Drinks Medica Center History SDOH [facility] - Alcohol Binge Medical Carolee ter Sex Assigned At [facility] Cigarettes smoked 2019-08-30 2019-08-30 [facility] - current (pack per 00:00:00 00:00:00 Medical Center day) - Reported Tobacco use and 2019-08-30 2019-08-30 Never used [facility] - exposure 00:00:00 00:00:00 [facility] Center Alcohol intake 2019-08-30 2019-08-30 [facility]00 non-drinker of [...] [facility] - 10:35: mouth Medical 24 daily. [place] ticagrelor 2019-0 Yes 90mg Q.5D Take [address] (BRILINTA) 5-27 by mouth 2 Marc es - 90 mg Tab 10:35: (two) Medical tablet 24 times Center daily. torsemide 2020-0 Yes 20mg QD Take [address] (DEMADEX) 5-20 by mouth [facility] - 20 MG 09:36: daily. Medical tablet 26 [place] azilsartan 2019-0 Yes 80mg QD Take 80 mg C [...] total) by Center capsule mouth daily. allopurinol 2019-0 Yes 100mg QD Take [address] (ZYLOPRIM) 2-17 mg by [facility] - 100 MG 18:25: mouth Medical tablet 17 daily. [place] colchicine 2020-0 Yes .6mg Take 0.[address] (COLCRYS) 2-17 mg by [facility] - 0.6 mg 18:25: mouth as Medical tablet 17 needed. [place] gabapentin 2020-0 Yes 300mg Q.[id number] Take [address] (NEURONTIN) 2-17 [id number] mg by L ukes - 300 MG [...] an empty stomach. hydrALAZINE 2019-0 Yes 100mg Q.40641707 Take [address] (APRESOLINE 2-17 [id number] tablet [facility] - ) 100 MG 00:00: 3D (100 mg Medica l tablet 00 total) by Center mouth 3 (three) times daily. melatonin 2019-0 Yes 10mg QD Take [address] 10 mg Tab 2-17 by mouth [facility] - 00:00: nightly. [address] pantoprazol 0 Yes 40mg QD Take [...] ID 2020-05-07 2020-05-07 Orders Doctor SHILPA 1.2.840.114 [id number] 00:00:00 00:00:00 Only Unassigned, KAILYN 350.1.13.10 [place] [facility] 4.2.7.2.686 [id number] 009 2020-05-03 2020-05-03 Transition Jaz Castillo 1.2.840.114 [id number] 00:00:00 00:00:00 of Care Ermias Ly 350.1.13.10 [place] 4.2.7.2.686 [id number] 2020-04-26 2020-05-02 Hospital Zachary Mccall [facility] 1.2.840 .114 [id number] 19:53:00 21:15:00 Encounter Lukewendy [facility] Margie 350.1.13.10 [place] 4.2.7.2.686 [place] [phone] [facility] 109 ([facility]) 2020-04-19 2020-04-19 Transition Jaz Castillo 1.2.840.114 [id number] 00:00:00 00:00:00 of Care Ermias Ly 350.1.13.10 [place] 4.2.7.2.686 [id number] 403 2020-04-19 2020-04-19 Patient Tony DCJAYESH 1.2.840.114 [id number] 00:00:00 00:00:00 Outreach Rojelio PRIMARY 350.1.13.10 [facility] 4.2.7.2.686 PAVILLION [id number] 2020-03-25 2020-04-18 Hospital Kirsten Horne 1.2.8 40.114 [id number] 20:15:00 20:11:00 Encounter Fred Mccoy 350.1.13.10 Cassi [facility] 4.2.7.2.686 [id number] 100 2020-04-02 2020-04-02 Anesthesia Rissa [facility] 1.2.840.114 [id number] 16:49:00 17:43:00 Abhinav LEDESMA 350.1.13.10 SCIENCES 4.2.7.2.686 BLDG [id number] 020 2020-03-25 2020-03-25 Telephone Khai Carrasco [facility] 1.2.840.114 [id number] 00:00:00 00:00:00 [facility] [employer] 350.1.13.10 Clear 4.2.7.2.686 Guerra [id number] Medical [address] 2020-01-25 2020-01-25 Transition Jaz Castillo 1.2.840.114 [id number] 00:00:00 00:00:00 of Care Ermias Ly 350.1.13.10 [place] 4.2.7.2.686 [id number] 403 2020-01-23 2020-01-24 Hospital Unknown, Attending [facility] 1.2.84 0.114 [id number] 10:26:00 11:59:00 Encounter ElvinKhai no [facility] 350.1.13. 10 Clear 4.2.7.2.686 Guerra [phone] Hospital 111 ([facility]) 2020-01-24 2020-01-24 Telephone Khai Carrasco [facility] 1.2.840.114 [id number] 00:00:00 00:00:00 [facility] [employer] 350.1.13.10 Clear 4.2.7.2.686 Guerra [id number] Medical [address] 2020-01-22 2020-01-22 Animal Trapper Carlos Vargas [facility] 1.2.840.114 [id number] 12:34:09 12:49:09 Visit Lab Main Vivian 350.1.13.10 [place] 4.2.7.2.686 [facility] [id number] [address] 2020-01-22 2020-01-22 Orders Doctor SHILPA 1.2.840.114 [id number] 00:00:00 00:00:00 Only Unassigned, KAILYN 350.1.13.10 [place] [facility] 4.2.7.2.686 [id number] [id number] 2020-01-17 2020-01-17 Animal Trapper c-Lab [facility] 1.2.840.114 [id number] 08:19:12 08:49:12 Visit HEALTH 350.1.13.10 CLINICS 4.2.7.2.686 [id number] [facility] 2020-01-15 2020-01-15 Animal Trapper Vls-Lab [facility] 1.2.840.114 [id number] 12:07:39 12:22:39 Visit SPECIALTY 350.1.13.10 CARE 4.2.7.2.686 [facility] [id number] [address] 2020-01-15 2020-01-15 Laboratory Only, [facility] 1.2.840.114 [id number] 10:08:01 10:23:01 Only Test Vivian 350.1.13.10 [place] 4.2.7.2.686 [place] [id number] [facility] 2020-01-15 2020-01-15 Orders Doctor SHILPA 1.2.840.114 [id number] 00:00:00 00:00:00 Only Unassigned, KAILYN 350.1.13.10 [place] [facility] 4.2.7.2.686 [id number] [id number] 2020-01-08 2020-01-08 Office Khai Carrasco [facility] 1.2.840.114 [id number] 10:52:01 16:03:43 [facility] 350.1.13.10 [place] 4.2.7.2.686 [place] [id number] Medical [facility] Office Building Results Test Description Test Time Test Comments Results Result Comments Source SARS-COV2/RT-PCR ([facility]) 2019-09-07 06:43:00 Test Item Value Reference Range Interpretation Comme nts SARS-COV2/RT-PCR (test code = 3057563) Not Detected Not Detected, N egative SARS-COV-2 PERFORMING LAB (test code = [facility] 3418775) Negative results do not preclude SARS-CoV-2 infection [...] of the Act.Fact Sheet for Healthcare Pro viders:https://www.[employer]/Documents/Xpert%20Xpress%20SARS%20CoV-2/Fact%20Sh eets/302-3802%42ERQI-SND-6%20HEALTHCARE%20PROVIDERS%20FACT%20SHEET.pdfFact Sheet for Healthcare Patients:https://www.[employer]/Documents/Xpert%20Xpress%20SARS%20CoV-2/Fact%20Sheets/302-3801%20SARS-COV -2%20PATIENT%20FACT%20SHEET.pdfPerforming Laboratory:[facility].[place], [place] [id number] PLATELET AGGREGATION 2019-09-06 11:11:00 Test Item Value Reference Range Interpretation Comments POC-P2Y12 PLATELET AGG (GIFTY) (test 79 PRU code = 2303) RANGE INFORMATION: PRU reference range is 194-418. Post Drug Results: Lower PRU levels are associated with expected antiplatelet effect. Values may be below the stated reference range above. The post-drug PRU values reported in the [employer] P2Y12 package insert are 18-435.POCT-ASPIRIN PLATELET [id number] 11:08:00 Test Item Value Reference Range Interpretation Comments POC-ASPIRIN PLATELET AGG (BEAKER) 385 ARU (test code = 2302) RANGE INFORMATION: 350-549 ARU Therapeutic range for platelet function. 550-700 ARU Non-Therapeutic range for platelet function.BASIC METABOLIC [id number] 10:35:00 Test Item Value Reference Range Interpretation [...] S NOT APPLICABLE FOR DIALYSIS PATIEN TS. Dray Driver ID [facility] FCBC W/PLT COUNT & AUTO [id number] 10:33:00 Test Item Value Reference Range Interpretation [...] 0-1 PERCENT (BEAKER) (test code = 2801) [id number] 10:12:00 Test Item Value Reference Range Interpretation [...] is2.5-3.5 for patients wiht mechanical heart valves.POCT-GLUCOSE [id number] 12:47:00 Test Item Value Reference Range Interpretation Comments POC-GLUCOSE METER 133 mg/dL 70-110 H : TESTED A T [facility] 6720 (BEAKER) (test code [facility], = 1538) 59[address]: Dray Driver/Techni gretel ID = [id number] for TSEG GAI, TSIGHEREDA POCT-GLUCOSE [id number] 07:59:00 Test Item Value Reference Range Interpretation Comments POC-GLUCOSE METER 125 mg/dL 70-110 H : TESTED A T [facility] 6720 (BEAKER) (test code [facility], = 1538) 10603: Dray Driver/Techni gretel ID = [id number] for TSEG GAI, TSIGHEREDA POCT-GLUCOSE [id number] 21:06:00 Test Item Value Reference Range Interpretation Comments POC-GLUCOSE METER 192 mg/dL 70-110 H : TESTED A T [facility] 6720 (BEAKER) (test code = [facility], 1538) 15226: Dray Driver/Techni gretel ID = [id number] for DE NNIS, MALIHA POCT-GLUCOSE [id number] 17:33:00 Test Item Value Reference Range Interpretation Comments POC-GLUCOSE METER 124 mg/dL 70-110 H : TESTED A T [facility] 6720 (BEAKER) (test code [facility], = 1538) 91568: Dray Driver/Techni gretel ID = [id number] for TSEG GAI, TSIGHEREDA POCT-GLUCOSE [id number] 11:50:00 Test Item Value Reference Range Interpretation Comments POC-GLUCOSE METER 102 mg/dL 70-110 : TESTED A T [facility] 6720 (BEAKER) (test code [facility], = 1538) 43203: Dray Driver/Techni gretel ID = [id number] for TSEG GAI, TSIGHEREDA POCT-GLUCOSE [id number] 07:44:00 Test Item Value Reference Range Interpretation Comments POC-GLUCOSE METER 96 mg/dL 70-110 : [facility] (BEAKER) (test code [facility], = 1538) 72847: Dray Driver/Techni grteel ID = [id number] for FRANCESCA BRYANA POCT-GLUCOSE [id number] 22:28:00 Test Item Value Reference Range Interpretation Comments POC-GLUCOSE METER 201 mg/dL 70-110 H : Notified RN/MD: (GIFTY) (test code = TESTED AT [place] [address] 1538) [facility], [address]: Dray Driver/Techni gretel ID = [id number] for LATHBRIDGE, AMRITA ICE HEMOGLOBIN AND [id number] 11:01:00 Test Item Value Reference Range Interpretation Comments HEMOGLOBIN (BEAKER) (test code = 9.3 GM/DL 11.2-15.7 L 410) HEMATOCRIT (BEAKER) (test code = 28.8 % 34.1-44.9 L 411) Dray Driver ID - [id number]-GLUCOSE [id number] 23:42:00 Test Item Value Reference Range Interpretation Comments POC-GLUCOSE METER 158 mg/dL 70-110 H : Notified RN/MD: (GIFTY) (test code = TESTED AT [place] [address] 1538) [facility], [address]261: Dray Driver/Techni gretel ID = [id number] for LATHBRIDGE, AMRITA ICE POCT-GLUCOSE [id number] 12:06:00 Test Item Value Reference Range Interpretation Comments POC-GLUCOSE METER 157 mg/dL 70-110 H : TESTED A T [facility] (BEAKER) (test code [facility], = 1538) 53149: Dray Driver/Techni gretel ID = [id number] for LIZ BRYAN BASIC METABOLIC [id number] 06:57:00 Test Item Value Reference Range Interpretation [...] S NOT APPLICABLE FOR DIALYSIS PATIEN TS. Dray Driver ID - KEARA [id number] 06:57:00 Test Item Value Reference Range Interpretation Comments MAGNESIUM (BEAKER) (test code = 1.7 mg/dL 1.6-2.6 627) Dray Driver ID - KEARA WHEMOGLOBIN AND [id number] 05:42:00 Test Item Value Reference Range Interpretation Comments HEMOGLOBIN (BEAKER) (test code = 8.3 GM/DL 11.2-15.7 L 410) HEMATOCRIT (BEAKER) (test code = 26.4 % 34.1-44.9 L 411) Dray Driver ID - 6000POCT-GLUCOSE [id number] 22:26:00 Test Item Value Reference Range Interpretation Comments POC-GLUCOSE METER 137 mg/dL 70-110 H : TESTED A T [facility] 6720 (BEAKER) (test code = [facility], 1538) 0[address]87: Dray Driver/Techni gretel ID = [id number] for MALLORY GRAHAM RAD, CHEST, 1 VIEW, NON [id number] 21:41:00Reason for exam:->shortness of breath, coughShould this [...] Annelise Davis Verified Date/Time: 05/25/2019 21:41:23 POCT-GLUCOSE [id number] 16:37:00 Test Item Value Reference Range Interpretation Comments POC-GLUCOSE METER 217 mg/dL 70-110 H : TESTED A T [facility] 6720 (BEAKER) (test code = [facility], 1538) 41637: Dray Driver/Techni gretel ID = [id number] for RO DGERS, JAMECA POCT-GLUCOSE [id number] 13:05:00 Test Item Value Reference Range Interpretation Comments POC-GLUCOSE METER 196 mg/dL 70-110 H : TESTED A T [facility] 6720 (BEAKER) (test code = [facility], 1538) 27854: Dray Driver/Techni gretel ID = [id number] for RO DGERS, JAMECA POCT-GLUCOSE [id number] 08:49:00 Test Item Value Reference Range Interpretation Comments POC-GLUCOSE METER 95 mg/dL 70-110 : TESTED A T [facility] 6720 (BEAKER) (test code = [facility], 1538) 14086: Dray Driver/Techni gretel ID = [id number] for RODG ERS, ROGERIOECA HEMOGLOBIN AND [id number] 05:24:00 Test Item Value Reference Range Interpretation Comments HEMOGLOBIN (BEAKER) (test code = 8.4 GM/DL 11.2-15.7 L 410) HEMATOCRIT (BEAKER) (test code = 27.0 % 34.1-44.9 L 411) Dray Driver ID - [id number]-GLUCOSE [id number] 22:08:00 Test Item Value Reference Range Interpretation Comments POC-GLUCOSE METER 164 mg/dL 70-110 H : TESTED A T [facility] 6720 (BEAKER) (test code = [facility], 1538) 11395: Dray Driver/Techni gretel ID = [id number] for MALLORY GRAHAM POCT-GLUCOSE [id number] 12:57:00 Test Item Value Reference Range Interpretation Comments POC-GLUCOSE METER 156 mg/dL 70-110 H : TESTED A T [facility] 6720 (BEAKER) (test code = [facility], 1538) 32256: Dray Driver/Techni gretel ID = [id number] for NITA GRANGER POCT-GLUCOSE [id number] 08:38:00 Test Item Value Reference Range Interpretation Comments POC-GLUCOSE METER 102 mg/dL 70-110 : [facility]ED [facility] T [facility] 67[facility] (BEAKER) (test code = [facility] [place] [place], 1538) [address]: Dray Driver/Techni gretel ID = [id number] for NITA GRANGER BASIC METABOLIC [id number] 06:30:00 Test Item Value Reference Range Interpretation [...] S NOT APPLICABLE FOR DIALYSIS PATIEN TS. Dray Driver ID - GALAPCBC (HEMOGRAM ONLY)2019-05-24 05:51:00 Test [...] 0-0 (BEAKER) (test code = 413) POCT-GLUCOSE [id number] 18:38:00 Test Item Value Reference Range Interpretation Comments POC-GLUCOSE METER 243 mg/dL 70-110 H : Notified RN/MD: (BEAKER) (test code = TESTED AT [facility] 5153 9652) [facility], [address]: Dray Driver/Techni gretel ID = [id number] for Keiry Owens BASIC METABOLIC [id number] 06:25:00 Test Item Value Reference Range Interpretation [...] S NOT APPLICABLE FOR DIALYSIS PATIEN TS. Dray Driver ID - GALAPCBC (HEMOGRAM ONLY)2019-05-23 05:56:00 Test [...] 0-0 (BEAKER) (test code = 413) POCT-GLUCOSE [id number] 00:29:00 Test Item Value Reference Range Interpretation Comments POC-GLUCOSE METER 126 mg/dL 70-110 H : TESTED A T [facility] 6720 (BEAKER) (test code = [facility] [place], 1538) [address]331: Dray Driver/Techni gretel ID = [id number] for MASON PHELPS CBC W/PLT COUNT & AUTO [id number] 06:36:00 Test Item Value Reference Range Interpretation [...] PERCENT (BEAKER) (test code = 2801) POCT-GLUCOSE [id number] 06:11:00 Test Item Value Reference Range Interpretation Comments POC-GLUCOSE METER 111 mg/dL 70-110 H : TESTED Eva T [facility] 6720 (BEAKER) (test code = [facility] [place], 1538) 71165: Dray Driver/Techni gretel ID = [id number] for RAFAEL CARBAJAL POCT-GLUCOSE [id number] 18:56:00 Test Item Value Reference Range Interpretation Comments POC-GLUCOSE METER 137 mg/dL 70-110 H : Notified RN/MD: (BEAKER) (test code = TESTED AT [facility] 9551 5386) [facility], [address]: Dray Driver/Techni gretel ID = [id number] for DANDY ESTRADA [id number] 13:58:00 Test Item Value Reference Range Interpretation Comments POTASSIUM (BEAKER) (test code = 3.9 meq/L 3.5-5.1 379) Dray Driver ID - MALOU [id number] 13:58:00 Test Item Value Reference Range Interpretation Comments MAGNESIUM (BEAKER) (test code = 1.8 mg/dL 1.6-2.6 627) Dray Driver ID - MALOU FCBC (HEMOGRAM ONLY)2019-05-21 13:41:00 [...] 0-0 (BEAKER) (test code = 413) POCT-GLUCOSE [id number] 13:11:00 Test Item Value Reference Range Interpretation Comments POC-GLUCOSE METER 164 mg/dL 70-110 H : Notified RN/MD: (GIFTY) (test code = TESTED AT [facility] 6720 1538) [facility], [address]: Dray Driver/Techni gretel ID = [id number] for DANDY WINSTON URIC [id number] 10:43:00 Test Item Value Reference Range Interpretation Comments URIC ACID (BEAKER) (test code = 5.7 mg/dL 2.6-7.2 773) Dray Driver ID - MALOU FBASIC METABOLIC [id number] 06:40:00 Test Item Value Reference Range Interpretation [...] S NOT APPLICABLE FOR DIALYSIS PATIEN TS. Dray Driver ID - KEARA WPOCT-GLUCOSE [id number] 06:37:00 Test Item Value Reference Range Interpretation Comments POC-GLUCOSE METER 156 mg/dL 70-110 H : TESTED A T [facility] 6720 (BEAKER) (test code = [facility] Mackenzie [facility], 1538) 59062: Dray Driver/Techni gretel ID = [id number] for VA RELA, RAJ CBC (HEMOGRAM ONLY)2019-05-21 [...] 0-0 (BEAKER) (test code = 413) POCT-GLUCOSE [id number] 00:42:00 Test Item Value Reference Range Interpretation Comments POC-GLUCOSE METER 155 mg/dL 70-110 H : TESTED A T [facility] 6720 (BEAKER) (test code = [facility] Mackenzie [facility], 1538) [address]447: Dray Driver/Techni gretel ID = [id number] for RAJ YANG [id number] 19:49:00 Test Item Value Reference Range Interpretation Comments FERRITIN (BEAKER) (test code = 361) 29 ng/mL 5-275 Dray Driver ID - TERRI [id number] 18:51:00 Test Item Value Reference Range Interpretation Comments TRANSFERRIN (BEAKER) (test code = 211 mg/dL 174-382 541) Dray Driver ID - TERRI CARL, TIBC, % SAT. (WITHOUT FERRITIN)2019-05-20 18:51:00 Test Item Value Reference Range Interpretation Comments IRON (BEAKER) (test code = 547) 14.0 ug/dL 40.0-160.0 L TOTAL IRON BINDING CAPACITY 264 ug/dL 250-450 (BEAKER) (test code = 769) IRON % SATURATION (2) (BEAKER) 5 % 20-55 L (test code = 2590) Dray Driver ID - TERRI MRAD, ANKLE, 1 VIEW, [id number] 18:09:00Reason for exam:- >left ankle painShould this be performed at the bedside?->YesFINAL REPORT TECHNIQUE: Two views of left ankle HISTORY: left ankle pain. COMPARISON: None. IMPRESSION:No acute displaced fracture or dislocation. Joint spaces are within normal limits.Minimal Achilles enthesopathy. Large plantar calcaneal spur and enthesopathy. Signed: Steven Lyman MDReport Verified Date/Time: 05/20/2019 18:09:20 Reading Location: [address] Consult Reading Room CBC (HEMOGRAM ONLY)2019-05-20 [...] WBC 0-0 (BEAKER) (test code = 413) [id number] 05:29:00 Test Item Value Reference Range Interpretation Comments MAGNESIUM (BEAKER) 1.9 mg/dL 1.6-2.6 Specimen slightly (test code = 627) hemolyzed Dray Driver ID - TERRI [id number] 05:29:00 Test Item Value Reference Range Interpretation Comments PHOSPHORUS (BEAKER) 3.3 mg/dL 2.3-4.7 Specimen slightly (test code = 604) hemolyzed Dray Driver ID - TERRI MBASIC METABOLIC [id number] 05:29:00 Test Item Value Reference Range Interpretation [...] S NOT APPLICABLE FOR DIALYSIS PATIEN TS. Dray Driver ID - TERRI MCBC (HEMOGRAM ONLY)2019-05-20 04:51:00 [...] 0-0 (BEAKER) (test code = 413) POCT-GLUCOSE [id number] 18:36:00 Test Item Value Reference Range Interpretation Comments POC-GLUCOSE METER 101 mg/dL 70-110 : TESTED A T [facility] 6720 (BEAKER) (test code = [facility] [place], 1538) [address]: Dray Driver/Techni gretel ID = [id number] for DANDY ESTRADA CBC (HEMOGRAM ONLY)2019-05-19 18:33:00 [...] 0-0 (BEAKER) (test code = 413) POCT-GLUCOSE [id number] 12:30:00 Test Item Value Reference Range Interpretation Comments POC-GLUCOSE METER 130 mg/dL 70-110 H : TESTED A T [facility] 6720 (BEAKER) (test code = [facility] [place], 1538) [address]: Dray Driver/Techni gretel ID = [id number] for DANDY WINSTON [id number] 08:02:00 Test Item Value Reference Range Interpretation Comments PHOSPHORUS (BEAKER) (test code = 2.5 mg/dL 2.3-4.7 604) Dray Driver ID - TERRI [id number] 08:02:00 Test Item Value Reference Range Interpretation Comments MAGNESIUM (BEAKER) (test code = 1.6 mg/dL 1.6-2.6 627) Dray Driver ID - TERRI MBASIC METABOLIC [id number] 08:02:00 Test Item Value Reference Range Interpretation [...] S NOT APPLICABLE FOR DIALYSIS PATIEN TS. Dray Driver ID - TERRI [id number] 07:40:00 Test Item Value Reference Range Interpretation Comments FIBRINOGEN LEVEL (BEAKER) (test 489 mg/dl 225-434 H code = 658) [id number] 07:40:00 Test Item Value Reference Range Interpretation [...] 0-0 (BEAKER) (test code = 413) POCT-GLUCOSE [id number] 00:26:00 Test Item Value Reference Range Interpretation Comments POC-GLUCOSE METER 110 mg/dL 70-110 : Notified RN/MD: (BEAKER) (test code = TESTED AT [facility] 6720 1538) [facility], [address]: Dray Driver/Techni gretel ID = [id number] for CHRIS PEREZ POCT-GLUCOSE [id number] 18:22:00 Test Item Value Reference Range Interpretation Comments POC-GLUCOSE METER 127 mg/dL 70-110 H : TESTED A T [facility] [address] (BEAKER) (test code = [facility], 1538) [address]: Dray Driver/Techni gretel ID = [id number] for RADHA DE LOS SANTOS POCT-GLUCOSE [id number] 12:25:00 Test Item Value Reference Range Interpretation Comments POC-GLUCOSE METER 171 mg/dL 70-110 H : TESTED A T [facility] 6720 (BEAKER) (test code = [facility], 1538) 61862: Dray Driver/Techni gretel ID = [id number] for RADHA DE LOS SANTOS [id number] 04:17:00 Test Item Value Reference Range Interpretation Comments PHOSPHORUS (BEAKER) (test code = 2.0 mg/dL 2.3-4.7 L 604) Dray Driver ID - KEARA [id number] 04:17:00 Test Item Value Reference Range Interpretation Comments MAGNESIUM (BEAKER) (test code = 1.6 mg/dL 1.6-2.6 627) Dray Driver ID - KEARA WBASIC METABOLIC [id number] 04:17:00 Test Item Value Reference Range Interpretation [...] S NOT APPLICABLE FOR DIALYSIS PATIEN TS. Dray Driver ID - KEARA WC (HEMOGRAM ONLY)2019-05-18 03:55:00 Test Item Value Reference [...] 0-0 (BEAKER) (test code = 413) POCT-GLUCOSE [id number] 18:43:00 Test Item Value Reference Range Interpretation Comments POC-GLUCOSE METER 139 mg/dL 70-110 H : TESTED A T [facility] 6720 (BEAKER) (test code = [facility], 1538) 30754: Dray Driver/Techni gretel ID = [id number] for RADHA DE LOS SANTOS, CAROTID STENT W [id number] 15:10:00Reason for exam:->left carotid stenosisFINAL REPORT Date [...] guidance and strict sterile technique a 6 Albanian shuttle sheath was inserted through the right [...] the stent to the arterial wall with yazdanism of the intraluminal flow and mild residual stenosis of approximately 20%. There is no evidence of platelet aggregation, or dissection. Intracranially there is yazdanism of good antegrade flow with no evidence [...] Carrasco Verified Date/Time: 05/17/2019 15:10:42 Reading Location: [facility] [id number] Neuro Angio Reading Room POCT-GLUCOSE [id number] 12:40:00 Test Item Value Reference Range Interpretation Comments POC-GLUCOSE METER 130 mg/dL 70-110 H : TESTED A T [facility] 6720 (BEAKER) (test code = [facility], 1538) 73156: Dray Driver/Techni gretel ID = [id number] for RADHA DE LOS SANTOS PROTHROMBIN [id number] 11:08:00 Test Item Value Reference Range Interpretation [...] INR is2.5-3.5 for patients wiht mechanical heart valves.[id number] 09:19:00 Test Item Value Reference Range Interpretation Comments PARTIAL THROMBOPLASTIN TIME 37.6 seconds 22.5-36.0 H (BEAKER) (test code = 760) POCT-GLUCOSE [id number] 06:49:00 Test Item Value Reference Range Interpretation Comments POC-GLUCOSE METER 110 mg/dL 70-110 : TESTED A T [facility] 6720 (BEAKER) (test code = [facility], 1538) 71579: Dray Driver/Techni gretel ID = [id number] for MASON PHELPS BASIC METABOLIC [id number] 05:59:00 Test Item Value Reference Range Interpretation [...] S NOT APPLICABLE FOR DIALYSIS PATIEN TS. Dray Driver ID - TERRI [id number] 05:35:00 Test Item Value Reference Range Interpretation Comments PARTIAL THROMBOPLASTIN TIME 38.3 seconds 22.5-36.0 H (BEAKER) (test code = 760) Prior to initiating heparinPOCT-P2Y12 PLATELET [id number] 05:34:00 Test Item Value Reference Range Interpretation Comments POC-P2Y12 PLATELET AGG (BEAKER) (test 230 PRU code = 2303) RANGE INFORMATION: PRU reference range is 194-418. Post Drug Results: Lower PRU levels are associated with expected antiplatelet effect. Values may be below the stated reference range above. The post-drug PRU values reported in the [employer] P2Y12 package insert are 18-435.POCT-ASPIRIN PLATELET [id number] 05:34:00 Test Item Value Reference Range Interpretation Comments POC-ASPIRIN PLATELET AGG (BEAKER) 564 ARU (test code = 2302) RANGE INFORMATION: 350-549 ARU Therapeutic range for platelet function. 550-700 ARU Non-Therapeutic range for platelet function.[id number] 05:34:00 Test Item Value Reference Range Interpretation [...] RED BLOOD CELLS 0 /100 WBC 0-0 ([facility]) (test code = 413) [id number] 02:03:00 Test Item Value Reference Range Interpretation Comments PARTIAL THROMBOPLASTIN TIME 35.8 seconds 22.5-36.0 (GIFTY) (test code = 760) 6 hours after starting heparin infusion and as indicated per sliding scalePOCT- GLUCOSE [id number] 00:00:00 Test Item Value Reference Range Interpretation Comments POC-GLUCOSE METER 109 mg/dL 70-110 : TESTED A T [facility] 6720 ([facility]) (test code = [facility], 1538) 01813: Dray Driver/Techni gretel ID = [id number] for MASON MILLER POCT-GLUCOSE [id number] 18:48:00 Test Item Value Reference Range Interpretation Comments POC-GLUCOSE METER 148 mg/dL 70-110 H : Notified RN/MD: ([facility]) (test code = TESTED AT [facility] 6720 1538) [facility], [address]: Dray Driver/Techni gretel ID = [id number] for STEWART MOROE, ANGIOGRAM, [id number] 16:45:00Reason for exam:->basilar tip aneurysmFINAL REPORT Date [...] guidance and strict sterile technique a 4 Albanian femoral sheath was inserted into the right radial artery. Through the sheath a 4 Albanian Hukkster catheter was then advanced over the wire [...] MDReport Verified Date/Time: 05/16/2019 16:45:20 Reading Location: [facility] Y018 Neuro Angio Reading Room POCT-GLUCOSE [id number] 13:41:00 Test Item Value Reference Range Interpretation Comments POC-GLUCOSE METER 120 mg/dL 70-110 H : TESTED A T [facility] 6720 (BEAKER) (test code = [facility], 1538) 50486: Dray Driver/Techni gretel ID = [id number] for ESVIN LAMBERT [id number] 09:24:00 Test Item Value Reference Range Interpretation Comments PARTIAL THROMBOPLASTIN TIME 36.3 seconds 22.5-36.0 H (BEAKER) (test code = 760) 6 hours after starting heparin infusion and as [facility]2019-05-16 09:10:00 Test Item Value Reference [...] WBC 0-0 (BEAKER) (test code = 413) [id number] 03:01:00 Test Item Value Reference Range Interpretation [...] heart valves.Prior to initiating heparinPrior to initiating [id number] 03:01:00 Test Item Value Reference Range Interpretation Comments PARTIAL THROMBOPLASTIN TIME 32.2 seconds 22.5-36.0 (BEAKER) (test code = 760) BASIC METABOLIC [id number] 02:58:00 Test Item Value Reference Range Interpretation [...] S NOT APPLICABLE FOR DIALYSIS PATIEN TS. Dray Driver ID - TERRI MPLATELET [id number] 02:45:00 Test Item Value Reference Range Interpretation Comments PLATELET COUNT (BEAKER) (test 231 K/CU MM 150-450 code = 756) Dray Driver ID - [id number], CEREBRAL PERFUSION [id number] 01:22:00FINAL REPORT CT cerebral perfusion analysis. Comparison: [...] approximately 1:20 AM 05/16/2018. Signed: Fabiano Montoya [facility] Verified Date/Time: 05/16/2019 01:22:48 [facility], CTANGIO [id number] 01:09:00 FINAL REPORT EXAM: CT, CT Angio, [...] approximately 1:05 AM 05/16/2019. Signed: Fabiano Montoya [facility] Verified Date/Time: 05/16/2019 01:09:25 CT, CAROTID, ANGIO [...] Signed: Fabiano Montoya Verified Date/Time: 05/16/2019 01:09:25 [facility], BRAIN/STROKE PROTOCOL 2019-05-15 23:34:00FINAL REPORT EXAM: CT [...] Fabiano Montoya Verified Date/Time: 05/15/2019 23:34:22 POCT-GLUCOSE [id number] 20:57:00 Test Item Value Reference Range Interpretation Comments POC-GLUCOSE METER 119 mg/dL 70-110 H : TESTED A T [facility] 6720 (BEAKER) (test code = [facility], 1538) 24037: Dray Driver/Techni gretel ID = [id number] for CARLINE HARDING PROTHROMBIN [id number] 19:47:00 Test Item Value Reference Range Interpretation [...] is2.5-3.5 for patients wiht mechanical heart valves.POCT-GLUCOSE [id number] 17:51:00 Test Item Value Reference Range Interpretation Comments POC-GLUCOSE METER 125 mg/dL 70-110 H : TESTED A T [facility] 6720 (BEAKER) (test code = [facility] [employer] [facility], 1538) 00830: Dray Driver/Techni gretel ID = [id number] for BR OWN, MARIA DEL CARMEN POCT-GLUCOSE [id number] 11:55:00 Test Item Value Reference Range Interpretation Comments POC-GLUCOSE METER 169 mg/dL 70-110 H : TESTED A T [facility] 6720 (BEAKER) (test code = [facility] [employer] [facility], 1538) 44535: Dray Driver/Techni gretel ID = [id number] for BR OWN, MARIA DEL CARMEN HEMOGLOBIN [id number] 10:46:00 Test Item Value Reference Range Interpretation Comments HEMOGLOBIN A1C (BEAKER) (test code = 5.8 % 4.3-6.1 368) POCT-GLUCOSE [id number] 08:50:00 Test Item Value Reference Range Interpretation Comments POC-GLUCOSE METER 134 mg/dL 70-110 H : TESTED A T [facility] 6720 (BEAKER) (test code = [facility], 1538) 13700: Dray Driver/Techni gretel ID = [id number] for BR OWN, MARIA DEL CARMEN VITAMIN B12 AND [id number] 07:44:00 Test Item Value Reference Range Interpretation Comments VITAMIN B12 (BEAKER) (test code = 472 pg/mL 213-816 774) FOLATE (BEAKER) (test code = 362) 19.4 ng/mL >=7.0 Dray Driver ID - MALOU FPOCT-GLUCOSE [id number] 06:57:00 Test Item Value Reference Range Interpretation Comments POC-GLUCOSE METER 114 mg/dL 70-110 H : TESTED A T [facility] 6720 (BEAKER) (test code = [facility], 1538) 99692: Dray Driver/Techni gretel ID = [id number] for DE NNIS, MALIHA LIPID [id number] 06:53:00 Test Item Value Reference Range Interpretation [...] Borderline 130-159 High 160-189 Very High >=190 Dray Driver ID - MARITZALBASIC METABOLIC [id number] 06:53:00 Test Item Value Reference Range Interpretation [...] S NOT APPLICABLE FOR DIALYSIS PATIEN TS. Dray Driver ID - PIAYA LCBC (HEMOGRAM ONLY)2019-05-15 06:29:00 [...] (test code = 413) MR, BRAIN, WITHOUT [id number] 04:06:00FINAL REPORT EXAM: MR, BRAIN, WITHOUT CONTRAST [...] Rosario MDReport Verified Date/Time: 05/15/2019 04:06:56 POCT-GLUCOSE [id number] 21:18:00 Test Item Value Reference Range Interpretation Comments POC-GLUCOSE METER 95 mg/dL 70-110 : TESTED A T [facility] 6720 (BEAKER) (test code = [facility], 1538) 13416: Dray Driver/Techni gretel ID = [id number] for RAJAN ORVILLEMALIHA BASIC METABOLIC [id number] 14:37:00 Test Item Value Reference Range Interpretation [...] APPLICABLE FOR DIALYSIS PATIEN TS. BASIC METABOLIC [id number] 13:34:00 Test Item Value Reference Range Interpretation [...] S NOT APPLICABLE FOR DIALYSIS PATIEN TS. [id number] 12:49:00 Test Item Value Reference Range Interpretation [...] mechanical heart valves.CBC W/PLT COUNT & AUTO [id number] 12:48:00 Test Item Value Reference Range Interpretation [...] % 0-1 PERCENT (BEAKER) (test code = 2805)
--- NOTE | 2020-11-28 23:44 | ER ---
Nurse's Notes [facility] Name: Bharati Lancaster Age: 80 yrs Sex: Female : 1940 Arrival Date: 11/28/2020 Time: 21:27 Bed DIS11 Private MD: Diagnosis: Headache Presentation: 11/28 22:11 Chief complaint: Patient states: Elevated B/P x 1 week, headache starting at 19:30 . Pt kg saws her PCP Dr. Yang yesterday and it was elevated then but he associated it with pain. Pt has tooth abscess and on Clindamycin since 11/26. Daughter stated that her speech hasn't been as clear x 1 week but associated it with the tooth abscess. Coronavirus screen: Client denies travel out of the [place] in the last 14 days. At this time, unable to obtain information related to travel outside the [place] At this time, the client does not indicate any symptoms associated with coronavirus-19. Ebola Screen: Patient negative for fever greater than or equal to 101.5 degrees Fahrenheit, and additional compatible Ebola Virus Disease symptoms Patient denies exposure to infectious person. Patient denies travel to an Ebola-affected area in the 21 days before illness onset. No symptoms or risks identified at this time. Initial Sepsis Screen: Does the patient meet any 2 criteria? No. Patient's initial sepsis screen is negative. Does the patient have a suspected source of infection? No. Patient's initial sepsis screen is negative. Risk Assessment: Do you want to hurt yourself or someone else? Patient reports no desire to harm self or others. Onset of symptoms was November 21, 2020. 22:11 Method Of Arrival: Wheelchair kg 22:11 Acuity: GONZALEZ 3 kg Triage Assessment: 22:16 General: Appears in no apparent distress. Behavior is calm, cooperative, appropriate kg for age, quiet. Pain: Denies pain. Historical: - Allergies: 22:16 Codeine; kg 22:16 Morphine; kg 22:16 Propoxyphene N-Acetaminophen; kg 22:16 Hydrocodone-Acetaminophen; kg 22:16 codeine sulfate; kg 22:16 Cyclobenzaprine; kg 22:16 ceftriaxone; kg 22:16 PENICILLINS; kg 22:16 plastic tape; kg 22:16 Tape; kg 22:16 Baclofen; kg 22:16 Demerol; kg 22:16 Darvocet-N 100; kg - Home Meds: 22:16 allopurinol 100 mg Oral tab 1 tab once daily [Active]; amlodipine 5 mg tab 1 tab once kg daily [Active]; aspirin 81 mg Oral TbEC [Active]; atorvastatin 80 mg Oral tab 1 tab once daily [Active]; clonidine HCl 0.1 mg Oral tab [Active]; colchicine 0.6 mg Oral cap [Active]; levothyroxine 50 mcg tab 1 tab once daily [Active]; metoprolol tartrate 100 mg oral tab 1 tab once daily [Active]; esomeprazole magnesium 20 mg oral TbEC daily [Active]; losartan potassium (bulk) 100 mg miscellaneous powd daily [Active]; melatonin 10 mg Oral tab daily [Active]; Cosamin DS 500-400 mg oral cap every 8 hours [Active]; urinary tract complex+ D-Mannose [Active]; Preser Vision AREDS 2 [Active]; Vitamin D3 25 mcg (1,000 unit) oral chew [Active]; tramadol 50 mg Oral TbDi 50 mg as needed [Active]; - PMHx: 22:16 Atrial Fib; Carpal Tunnel; Gout; Diabetes - NIDDM; Cataract; Aneurysm; chronic kidney kg disease; Bladder infections; DVT; GERD; Hyperlipidemia; Hypertension; Hypothyroidism; Degenative join disease; CHF; Cervical radicular pain; CVA; Cerebrovascular accident; - PSHx: 22:16 Left knee Replacement; Stented artery; Cholecystectomy; Aneurysm Mesh placement; kg - Immunization history:: Adult Immunizations up to date, Client reports receiving the 1st dose of the Covid vaccine, August 17, 2020 Harpreet \T\ Harpreet . - Social history:: Smoking status: Patient denies any tobacco usage or history of. Screenin:28 Abuse screen: Denies threats or abuse. Denies injuries from another. Nutritional kg screening: No deficits noted. Tuberculosis screening: No symptoms or risk factors identified. Fall Risk None identified. Assessment: 23:55 General: Appears in no apparent distress. comfortable, Behavior is calm, cooperative, em appropriate for age. Neuro: Level of Consciousness is awake, alert, obeys commands, Oriented to person, place, time, situation. Cardiovascular: Capillary refill < 3 seconds Patient's skin is warm and dry. Respiratory: Airway is patent Respiratory effort is even, unlabored, Respiratory pattern is regular, symmetrical. Derm: Skin is intact, is healthy with good turgor, Skin is pink, warm \T\ dry. Vital Signs: 22:11 BP 183 / 52; Pulse 51; Resp 20; Temp 98.0; Pulse Ox 99% on R/A; Weight 78.02 kg (R); kg Height 5 ft. 6 in. (167.64 cm) (R); Pain 0/10; 23:55 BP 150 / 63; Pulse 49; Resp 16; Pulse Ox 100% on R/A; em 22:11 Body Mass Index 27.76 (78.02 kg, 167.64 cm) kg ED Course: 21:27 Patient arrived in ED. 22:15 Triage completed. kg 22:16 Arm band placed on right wrist. kg 22:46 CT Head Brain wo Cont In Process Unspecified. EDMS 23:07 Daphne Palma is Attending Physician. sp3 23:55 Pernell Pathak, RN is Primary Nurse. em 23:56 No provider procedures requiring assistance completed. Patient did not have IV access em during this emergency room visit. Administered Medications: No medications were administered Outcome: 23:43 Discharge ordered by MD. sp3 23:56 Discharged to home via wheelchair. em 23:56 Condition: stable 23:56 Discharge instructions given to patient, Instructed on discharge instructions, follow up and referral plans. Demonstrated understanding of instructions, follow-up care. 23:57 Patient left the ED. em Signatures: Dispatcher [employer] [facility] Pernell Pathak, Nona Wilson RN, RN RN kg Marsh, Wendy Daphne Palma sp3
--- NOTE | 2020-11-28 23:44 | EDPHYS ---
Physician Documentation [facility] Name: Bharati Lancaster Age: 80 yrs Sex: Female : 1940 Arrival Date: 11/28/2020 Time: 21:27 Bed DIS11 Private MD: ED Physician Daphne Palma HPI: 11/28 23:38 This 80 yrs old Female presents to ER via Wheelchair with complaints of High sp3 Blood Pressure - 128/102. 23:38 80-year-old female history of atrial fibrillation, diabetes, hypertension and a current sp3 tooth abscess presents with headache and mildly elevated blood pressure at 128/102. Patient saw her PCP yesterday who attributed her headache secondary to hypertension and her dental abscess pain. Patient presents today for continued symptoms and headache. She mainly wanted to get a head CT to ascertain any abnormality secondary to her prior aneurysm history. Patient with no other symptoms including neurological symptoms, motor weakness, sensory loss, speech problems, confusion, chest pain, shortness of breath, neck pain, fever, or any other ROS at this time.. Historical: - Allergies: 22:16 Codeine; kg 22:16 Morphine; kg 22:16 Propoxyphene N-Acetaminophen; kg 22:16 Hydrocodone-Acetaminophen; kg 22:16 codeine sulfate; kg 22:16 Cyclobenzaprine; kg 22:16 ceftriaxone; kg 22:16 PENICILLINS; kg 22:16 plastic tape; kg 22:16 Tape; kg 22:16 Baclofen; kg 22:16 Demerol; kg 22:16 Darvocet-N 100; kg - Home Meds: 22:16 allopurinol 100 mg Oral tab 1 tab once daily [Active]; amlodipine 5 mg tab 1 tab once kg daily [Active]; aspirin 81 mg Oral TbEC [Active]; atorvastatin 80 mg Oral tab 1 tab once daily [Active]; clonidine HCl 0.1 mg Oral tab [Active]; colchicine 0.6 mg Oral cap [Active]; levothyroxine 50 mcg tab 1 tab once daily [Active]; metoprolol tartrate 100 mg oral tab 1 tab once daily [Active]; esomeprazole magnesium 20 mg oral TbEC daily [Active]; losartan potassium (bulk) 100 mg miscellaneous powd daily [Active]; melatonin 10 mg Oral tab daily [Active]; Cosamin DS 500-400 mg oral cap every 8 hours [Active]; urinary tract complex+ D-Mannose [Active]; Preser Vision AREDS 2 [Active]; Vitamin D3 25 mcg (1,000 unit) oral chew [Active]; tramadol 50 mg Oral TbDi 50 mg as needed [Active]; - PMHx: 22:16 Atrial Fib; Carpal Tunnel; Gout; Diabetes - NIDDM; Cataract; Aneurysm; chronic kidney kg disease; Bladder infections; DVT; GERD; Hyperlipidemia; Hypertension; Hypothyroidism; Degenative join disease; CHF; Cervical radicular pain; CVA; Cerebrovascular accident; - PSHx: 22:16 Left knee Replacement; Stented artery; Cholecystectomy; Aneurysm Mesh placement; kg - Immunization history:: Adult Immunizations up to date, Client reports receiving the 1st dose of the Covid vaccine, August 17, 2020 INCIDE \T\ INCIDE . - Social history:: Smoking status: Patient denies any tobacco usage or history of. ROS: 23:39 Constitutional: Negative for fever, chills, and weight loss, Eyes: Negative for injury, sp3 pain, redness, and discharge, Neck: Negative for injury, pain, and swelling, Cardiovascular: Negative for chest pain, palpitations, and edema, Respiratory: Negative for shortness of breath, cough, wheezing, and pleuritic chest pain, Abdomen/GI: Negative for abdominal pain, nausea, vomiting, diarrhea, and constipation, Back: Negative for injury and pain, Skin: Negative for injury, rash, and discoloration, Psych: Negative for depression, anxiety, suicide ideation, homicidal ideation, and hallucinations, Endocrine: Negative for neck swelling, polydipsia, polyuria, polyphagia, and marked weight changes. 23:39 Neuro: Positive for headache, Negative for altered mental status, dizziness, gait disturbance, hearing loss, loss of consciousness, numbness, seizure activity, speech changes, syncope, near syncope, tremor, visual changes, acute changes. 23:39 All other systems are negative. Exam: 23:41 Constitutional: This is a well developed, well nourished patient who is awake, alert, sp3 and in no acute distress. Head/Face: Normocephalic, atraumatic. Eyes: Pupils equal round and reactive to light, extra-ocular motions intact. Lids and lashes normal. Conjunctiva and sclera are non-icteric and not injected. Cornea within normal limits. Periorbital areas with no swelling, redness, or edema. Neck: Trachea midline, no thyromegaly or masses palpated, and no cervical lymphadenopathy. Supple, full range of motion without nuchal rigidity, or vertebral point tenderness. No Meningismus. Chest/axilla: Normal chest wall appearance and motion. Nontender with no deformity. No lesions are appreciated. Cardiovascular: Regular rate and rhythm with a normal S1 and S2. No gallops, murmurs, or rubs. Normal PMI, no JVD. No pulse deficits. Respiratory: Lungs have equal breath sounds bilaterally, clear to auscultation and percussion. No rales, rhonchi or wheezes noted. No increased work of breathing, no retractions or nasal flaring. Abdomen/GI: Soft, non-tender, with normal bowel sounds. No distension or tympany. No guarding or rebound. No evidence of tenderness throughout. Skin: Warm, dry with normal turgor. Normal color with no rashes, no lesions, and no evidence of cellulitis. MS/ Extremity: Pulses equal, no cyanosis. Neurovascular intact. Full, normal range of motion. Neuro: Awake and alert, GCS 15, oriented to person, place, time, and situation. Cranial nerves II-XII grossly intact. Motor strength 5/5 in all extremities. Sensory grossly intact. Cerebellar exam normal. Normal gait. Psych: Awake, alert, with orientation to person, place and time. Behavior, mood, and affect are within normal limits. 23:41 ENT: Dental exam: abscess, that is mild. Vital Signs: 22:11 BP 183 / 52; Pulse 51; Resp 20; Temp 98.0; Pulse Ox 99% on R/A; Weight 78.02 kg (R); kg Height 5 ft. 6 in. (167.64 cm) (R); Pain 0/10; 23:55 BP 150 / 63; Pulse 49; Resp 16; Pulse Ox 100% on R/A; em 22:11 Body Mass Index 27.76 (78.02 kg, 167.64 cm) kg MDM: 23:11 Patient medically screened. sp3 23:41 Data reviewed: vital signs, nurses notes, radiologic studies. sp3 23:42 ED course: CT scan of the brain reviewed by me is negative. We will follow up on sp3 radiology read. Offered p.o. pain medication and further vital sign checks but patient elects to be discharged at this time. She states she has pain medicine at home and we just wanted to see what her CAT scan showed. At this time I am not suspicious for acute CVA, intracranial hemorrhage, acute coronary syndrome, sepsis, shock, any other critical illness at this time.. 11/28 22:29 Order name: CT Head Brain wo Cont kg Administered Medications: No medications were administered Disposition Summary: 11/28/20 23:43 Discharge Ordered Location: Home sp3 Condition: Stable sp3 Diagnosis - Headache sp3 Followup: sp3 - With: Private Physician - When: - Reason: Re-evaluation by your physician Discharge Instructions: - Discharge Summary Sheet sp3 - General Headache Without Cause sp3 Forms: - Medication Reconciliation Form sp3 - Thank You Letter sp3 - Antibiotic Education sp3 - Prescription Opioid Use sp3 Signatures: Dispatcher [employer] Nona Boucher RN RN Daphne Peña sp3
[2020-11-29 02:43] VITALS: TEMP 98
[2020-11-29 02:44] VITALS: BP 150/63; O2SAT 100
--- NOTE | 2020-11-29 10:44 | RAD REPORT ---
EXAM DESCRIPTION: CT - Head Brain Wo Cont - 11/29/2020 6:54 am CLINICAL HISTORY: 80 years Female HEADACHE COMPARISON: CT head without contrast dated May 31, 2019 TECHNIQUE: Contiguous axial images of the brain were obtained without the administration of intraven ous contrast.This exam was performed according to our departmental dose-optimization program which in cludes use of Automated Exposure Control, adjustment of the mA and/or kV according to patient size an d/or use of iterative reconstruction technique.DLP: 903 mGy*cm FINDINGS: Limited evaluation.Brain: Prior endovascular coiling likely in the basilar artery, new fro m prior exam. No acute intracranial hemorrhage. No extra-axial collection. No mass effect or herniati on. Unchanged prominence of the sulci and cisterns. Confluent periventricular and subcortical white matter hypodensity is noted. Vascular calcifications.Ventricles: Prominence of ventricular system wi thout hydrocephalus..Globes and orbits: No acute abnormality. Prior cataract surgery.Bones: No acute osseous findingParanasal sinuses: Paranasal sinuses are clear.Mastoid air cells: Well pneumatized.Sof t tissues: Within normal limits IMPRESSION: No acute intracranial hemorrhage, hydrocephalus or herniation. Interval bibasilar dome a neurysmal coiling. Advanced cerebral volume loss and chronic small vessel ischemic changes. Electronically signed by: Shawn Khan DO 11/28/2020 11:12 PM CDT Due to temporary technical issues with the PACS/Fluency reporting system, reports are being signed by the in house radiologist without review as a courtesy to ensure prompt reporting. The interpreting r adiologist is fully responsible for the content of the report.
== END 2020-11-28 23:57 | disposition home or self-care (01) ==
LOC: ER 21:24
DX: R51.9 Headache, unspecified (principal); I10 Essential (primary) hypertension; E11.9 Type 2 diabetes mellitus without complications; I48.91 Unspecified atrial fibrillation; Z79.82 Long term (current) use of aspirin; Z88.0 Allergy status to penicillin; Z88.1 Allergy status to other antibiotic agents; Z88.5 Allergy status to narcotic agent; Z88.8 Allergy status to other drugs, medicaments and biological substances; Z91.048 Other nonmedicinal substance allergy status
CPT/HCPCS: 70450; 99283

== ENCOUNTER 2020-12-16 21:26 | Inpatient (IN) | payer OTHER ==
--- OUTSIDE RECORDS SUMMARY | 2020-12-16 21:31 | XMS REPORT | Continuity of Care Document ---
:1940 Author Organization [facility] t Address [address] [place] [address] Care Team Providers Name Role Phone Aaron [...] Unavailable Pob, Lab Main Attending Clinician Unavailable [facility] Attending Clinician Unavailable Vls-Lab Attending Clinician Unavailable [...] kes - anemia anemia 00:00: Medical 00 [place] Gout flare Gout flare Disease Active 2020-[address] [facility] - 00:[facility]: Medical [place] COPD COPD Disease Active 2019- [facility] ([facility] (ch[facility] - obstructiv obstructiv 00:00: Me dical e e 00 Center pulmonary pulmonary disease) disease) Gastroesop Gastroesop Disease Active [facility] hageal hageal 2- [facility] - reflux reflux 00:00: Medical disease disease 00 [place] with with esophagiti esophagiti s s HLD HLD Disease Active [facility] (hyperlipi (hyperlipi 2- Ella kes - demia) demia) 00:00: Medical 00 [place] Hypothyroi Hypothyroi Disease Active [address] dism dism 2 [facility] - 00:00: Medical [place] Coagulopat Coagulopat Disease Active 2019-[address] hy hy 2 [facility] - 00:00: Medical [place] 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 00:00: Medica l 00 [place] Cerebral Cerebral Disease Active 2019-0 [facility] hypoperfus hypoperfus 2-05 Ella kes - ion ion 00:00: Medical 00 [place] Hypertensi Hypertensi Disease Active 2019-[address] ve crisis ve crisis 2-05 [facility] - 00:00: Medical [place] Atrial Atrial Disease Active 2019-[address] fibrillati fibrillati 2-04 Ella kes - on on 00:00: Medical [place] Hypertensi Hypertensi Disease Active 2020-[address] on on 2-04 [facility] - 00:00: Medical [place] Carotid Carotid Disease Active 2019-[address] stenosis, stenosis, 2-04 [facility] - left left 00:00: Medical [place] Acute Acute Disease Active 2020-[address] [facility] ischemic ischemic 2-03 [facility] - stroke stroke 00:00: Medical 00 [place] RUE RUE Disease Active 2020-[address] weakness weakness 2-02 [facility] - 00:00: Medical [place] Allergies, Adverse Reactions, Alerts Allergy Allergy Status [...] And 2015-[address] [facility] ty to Vomiting, 2- [facility] - adverse Palpitations 00:00: Med ical reaction , Hives 00 Center s Social History Social Habit Start Date Stop Date Quantity Comments Source History of tobacco Smoker [facility] [place] - use [facility] History [facility] - Alcohol Std Drinks [facility] Center History [facility] - Alcohol Binge Medical [address]ole[address] [facility] Sex Assigned At [facility] Cigarettes smoked 2019-08-30 2019-08-30 [facility] [place] - current (pack per 00:00:00 00:00:00 Medical Center day) - Reported Tobacco use and 2019-08-30 2019-08-30 Never used [facility] - exposure 00:00:00 00:00:00 [facility] Alcohol intake 2019-08-30 2019-08-30 Current [facility] St Marc es - 00:00:00 00:00:00 non-drinker of Medical Ce nter alcohol (finding) History [facility] 2019-03-31 2019-03-[address] [facility] - Alcohol Frequency 00:00:00 00:00:00 Medical Center Smoking Status Start Date Stop Date Source Former smoker 2019-08-30 00:00:00 2019-08-30 00:00:[address] [facility] Medications Ordered Filled Start Stop Current Ordering Indication Dosage Frequency Signature Comments Components Source Medication Medication Date Date Medication? Clinician (SIG) Name Name aspirin 325 2020-0 Yes 325mg QD Take [address] MG tablet 5-27 mg by [facility] - 10:35: mouth Medical 24 daily. Center ticagrelor 2020-0 Yes 90mg Q.5D Take [address] (BRILINTA) 5-27 by mouth 2 Marc es - 90 mg Tab 10:35: (two) Medical tablet 24 times Center daily. aspirin 325 2020-0 Yes 325mg QD Take [address] MG tablet 5-27 mg by [facility] - 10:35: mouth Medical 24 daily. [place] ticagrelor 2020-0 Yes 90mg Q.5D Take [address] (BRILINTA) 5-27 by mouth 2 Marc es - 90 mg Tab 10:35: (two) Medical tablet 24 times Center daily. torsemide 2020-0 Yes 20mg QD Take [address] (DEMADEX) 5-20 by mouth [facility] - 20 MG 09:36: daily. Medical tablet 26 Center torsemide 2020-0 Yes 20mg QD Take [address] (DEMADEX) 5-20 by mouth [facility] - 20 MG 09:36: daily. Medical tablet 26 [place] azilsartan 2020-0 Yes 80mg QD Take [address] medoxomil 5-20 by mouth [facility] - (EDARBI) 80 09:31: daily . Med ical mg Tab 59 Center ranitidine 2020-0 Yes 150mg QD Take [address] (ZANTAC) 5-20 mg by [facility] - 150 MG 09:31: mouth Medical capsule 59 every Center evening . azilsartan 2020-0 Yes 80mg QD Take [address] medoxomil 5-20 by mouth [facility] - (EDARBI) 80 09:31: daily . Med ical mg Tab 59 Center ranitidine 2020-0 Yes 150mg QD Take [address] (ZANTAC) 5-20 mg by [facility] - 150 MG 09:31: mouth Medical capsule 59 every Center evening . tamsulosin 2020-0 Yes .4mg QD Take 1 [facility] (FLOMAX) 2-18 capsule [facility] - 0.4 mg Cap 00:00: (0.4 mg Medi jayce 24 hr 00 total) by Center capsule mouth daily. tamsulosin 2020-0 Yes .4mg QD Take 1 [...] 17 needed. Center gabapentin 2020-0 Yes 300mg Q.[id number] Take [address] (NEURONTIN) 2-17 [id number] mg by L ukes - 300 MG [...] MCG morning on tablet an empty stomach. allopurinol 2020-0 Yes 100mg QD Take [address] (ZYLOPRIM) 2-17 mg by [facility] - 100 MG 18:25: mouth Medical tablet 17 daily. Center colchicine 2020-0 Yes .6mg Take 0.[address] (COLCRYS) 2-17 mg by [facility] - 0.6 mg 18:25: mouth as Medical tablet 17 needed. Center gabapentin 2020-0 Yes 300mg Q.[id number] Take [address] (NEURONTIN) 2-17 [id number] mg by L ukes - 300 MG [...] morning on tablet an empty stomach. hydrALAZINE 2020-0 Yes 100mg Q.45009509 Take [address] (APRESOLINE 2-17 [id number] tablet [facility] - ) 100 MG 00:00: [...] MG 00 by mouth Center tablet daily. hydrALAZINE 2020-0 Yes 100mg Q.08070995 Take [address] (APRESOLINE 2-17 [id number] tablet [facility] - ) 100 MG 00:00: 3D (100 mg Medica l tablet 00 total) by Center mouth 3 (three) times daily. melatonin 2020-0 Yes 10mg QD Take [address] 10 mg Tab 2-17 by mouth [facility] - 00:00: nightly. [address] pantoprazol Yes 40mg QD Take [address] e 2-17 tablet (40 [facility] - (PROTONIX) 00:00: mg total) Me dical 40 MG 00 by mouth Center tablet daily. cloNIDine 2020- No .2mg QD Take 1 [facility] HCl 05-29-16 tablet [facility] - (CATAPRES) 00:00: 23:59 (0.2 mg Med ical 0.2 MG 00 :00 total) by Center tablet mouth nightly. atorvastati No 80mg QD Take [address] n (LIPITOR) 2-17 -16 tablet (80 L ukes - 80 MG 00:00: 23:59 mg total) Medica l tablet 00 :00 by mouth Center nightly. cloNIDine No .2mg QD Take 1 [facility] HCl 2-17 -16 tablet [facility] - (CATAPRES) 00:00: 23:59 (0.2 mg Med ical 0.2 MG 00 :00 total) by Center tablet mouth nightly. atorvastati 2020- No 80mg QD Take [address] n (LIPITOR) 217 -16 tablet (80 L ukes - 80 MG 00:00: 23:59 mg total) Medica l tablet 00 :00 by mouth Center nightly. Procedures This patient has no known procedures. Plan of Care Planned Activity Planned Date Details Comments Source Future Scheduled 2020-12-[address] [facility] - Test 00:00:00 (#1) [code = [facility] INFLUENZA VACCINE (#1)] Future Scheduled 2020-04-[address] [facility] - Test 00:00:00 (12+) [code = [facility] DEPRESSION SCREENING (12+)] Future Scheduled 2020-04-[address] [facility] - Test 00:00:00 (12+) [code = Medical Center DEPRESSION SCREENING (12+)] Future Scheduled 2020-04-12 FALLS RISK SCREENING [facility] - Test 00:00:00 [code = FALLS RISK Medical C enter SCREENING] Future Scheduled 2019-12-[address] [facility] - Test 00:00:00 (#1) [code = Medical Center INFLUENZA VACCINE (#1)] Future Scheduled 2019-04-[address] [facility] - Test 00:00:00 WELLNESS (YEAR 2 or Medical Center FIRST YEAR if no IPPE) [code = MEDICARE ANNUAL WELLNESS (YEAR 2 or FIRST YEAR if no IPPE)] Future Scheduled 2019-04-[address] [facility] - Test 00:00:00 WELLNESS (YEAR 2 or Medical Center FIRST YEAR if no IPPE) [code = MEDICARE ANNUAL WELLNESS (YEAR 2 or FIRST YEAR if no IPPE)] Future Scheduled 1992-02-08 SHINGLES VACCINES ([address] [facility] - Test 00:00:00 of 2) [code = Medical Center SHINGLES VACCINES (1 of 2)] Future Scheduled 1961 DTAP/TDAP/TD VACCINES [facility] Test 00:00:00 (1 - Tdap) [code = Medical C enter DTAP/TDAP/TD VACCINES (1 - Tdap)] Future Scheduled 1960-02-08 HEPATITIS C SCREENING [facility] Test 00:00:00 [code = HEPATITIS C Medical Center SCREENING] Future Scheduled 1954 COVID-19 VACCINE (1) [facility] Test 00:00:00 [code = COVID-[address] VACCINE (1)] Encounters Start End Encounter Admission Attending Care Care Encounter Source Date/Time Date/Time Type Type Clinicians Facility Department ID 2020-05-07 2020-05-07 Orders Doctor SHILPA 1.2.840.114 [id number] 00:00:00 00:00:00 Only Unassigned, KAILYN [id number] [facility] 4.2.7.2.686 [id number] [id number] 2020-05-03 2020-05-03 Transition Jza Castillo 1..840.114 [id number] 00:00:00 00:00:00 of Care Ermias Eva Ly [id number] [place] 4.2.7.2.686 [id number] 403 2020-04-26 2020-05-02 [facility] Zachary Mccall [facility] 1.2.840 .114 [id number] 19:53:00 21:15:00 Encounter Debra [facility] [id number] [place] 4.2.7.2.686 [place] [id number] [place] [address] ([facility]) 2020-04-19 2020-04-19 Transition AnnaAtif delaneyrafael 1.2.840.114 [id number] 00:00:00 00:00:00 of Care Ermias Reyesy [id number] [place] 4.2.7.2.686 [id number] 403 2020-04-19 2020-04-19 Patient Tony [facility] 1.2.840.114 [id number] 00:00:00 00:00:00 Outreach [facility] [id number] [facility] 4.2.7.2.686 PAVTALIAON [id number] 2020-03-25 2020-04-18 [facility] Coleen, Kirstenjuan Sharp 1.2.8 40.114 [id number] 20:15:00 20:11:00 Encounter Fred Mccoy 350.1.13.10 [facility] 4.2.7.2.686 [id number] 100 2020-04-02 2020-04-02 Anesthesia Rissa [facility] 1.2.840.114 [id number] 16:49:00 17:43:00 Abhinav Flowers ICANuvia 350.1.13.10 [facility] 4.2.7.2.686 BLDG [id number] [id number] 2020-03-25 2020-03-25 Telephone Khai Carrasco [facility] 1.2.840.114 [id number] 00:00:00 00:00:00 [facility] [id number] [place] 4.2.7.2.686 [place] [id number] [facility] Office Building 2020-01-25 2020-01-25 Transition Atif Castillorafael 1.2.840.114 [id number] 00:00:00 00:00:00 of Care Ermias Reyesy 350.1.13.10 [place] 4.2.7.2.686 [id number] 403 2020-01-23 2020-01-24 Hospital Unknown, Attending [facility] 1.2.84 0.114 [id number] 10:26:00 11:59:00 Encounter Khai Carrasco no [facility] 350.1.13. 10 [place] 4.2.7.2.686 [place] [id number] Hospital 111 ([facility]) 2020-01-24 2020-01-24 Telephone Khai Carrasco [facility] 1.2.840.114 [id number] 00:00:00 00:00:00 [facility] [id number] [place] 4.2.7.2.686 [place] [id number] Medical 196 Office Building 2020-01-22 2020-01-22 Serology Teacher Alicia, [facility] 1.2.840.114 [id number] 12:34:09 12:49:09 Visit Lab Main [place] 350.1.13.10 [place] 4.2.7.2.686 [facility] [id number] [address] 2020-01-22 2020-01-22 Orders Doctor MASSEY 1.2.840.114 [id number] 00:00:00 00:00:00 Only Unassigned, KAILYN 350.1.13.10 [facility] 4.2.7.2.686 [id number] [id number] 2020-01-17 2020-01-17 Serology Teacher c-Lab [facility] 1.2.840.114 [id number] 08:19:12 08:49:12 Visit HEALTH 350.1.13.10 CLINICS 4.2.7.2.686 [id number] [facility] 2020-01-15 2020-01-15 Serology Teacher Vls-Lab [facility] 1.2.840.114 [id number] 12:07:39 12:22:39 Visit SPECIALTY 350.1.13.10 CARE 4.2.7.2.686 [place] AT [phone] FRANCISCO JAVIER [address] [place] [address] 2020-01-15 2020-01-15 Laboratory Only, [facility] 1.2.840.114 [id number] 10:08:01 10:23:01 Only Test [place] 350.1.13.10 [place] 4.2.7.2.686 [place] [id number] 2020-01-15 2020-01-15 Orders Doctor SHILPA 1.2.840.114 [id number] 00:00:00 00:00:00 Only Unassigned, KAILYN 350.1.13.10 [facility] 4.2.7.2.686 [id number] 2020-01-08 2020-01-08 Office ElvinKhai 1.2.840.114 [id number] 10:52:01 16:03:43 Visit [facility] 350.1.13.10 [place] 4.2.7.2.686 [place] [id number] Medical 196 Office Building Results Test Description Test Time Test Comments Results Result Comments Source SARS-COV2/RT-PCR ([facility]) 2019-09-07 06:43:00 Test Item Value Reference Range Interpretation Comme nts SARS-COV2/RT-PCR (test code = 9916240) Not Detected Not Detected, N egative SARS-COV-2 PERFORMING LAB (test code = [facility] Negative results do not preclude SARS-CoV-2 infection [...] of the Act.Fact Sheet for Healthcare Pro viders:https://www.PlayLabid.com/Documents/Xpert%20Xpress%20SARS%20CoV-2/Fact%20Sh eets/302-4452%50STQI-SEW-0%20HEALTHCARE%20PROVIDERS%20FACT%20SHEET.pdfFact Sheet for Healthcare Patients:https://www.Merkle.com/Documents/Xpert%20Xpress%20SARS%20CoV-2/Fact%20Sheets/302-5940%20SARS-COV -2%20PATIENT%20FACT%20SHEET.pdfPerforming Laboratory:[facility], [place] [id number] PLATELET AGGREGATION 2019-09-06 11:11:00 Test Item Value Reference Range Interpretation Comments POC-P2Y12 PLATELET AGG (BEAKER) (test 79 PRU code = 2303) RANGE INFORMATION: PRU reference range is 194-418. Post Drug Results: Lower PRU levels are associated with expected antiplatelet effect. Values may be below the stated reference range above. The post-drug PRU values reported in the VerifyNow P2Y12 package insert are 18-435.POCT-ASPIRIN PLATELET [id number] 11:08:00 Test Item Value Reference Range Interpretation Comments POC-ASPIRIN PLATELET AGG (BEAKER) 385 ARU (test code = 2302) RANGE INFORMATION: 350-549 ARU Therapeutic range for platelet function. 550-700 ARU Non-Therapeutic range for platelet function.BASIC METABOLIC [id number] 10:35:00 Test Item Value Reference Range Interpretation [...] S NOT APPLICABLE FOR DIALYSIS PATIEN TS. Hand Counter ID - MALOU FCBC W/PLT COUNT & AUTO [id number] 10:33:00 Test Item Value Reference Range Interpretation [...] 0-1 PERCENT (BEAKER) (test code = 2801) [id number] 10:12:00 Test Item Value Reference Range Interpretation [...] is2.5-3.5 for patients wiht mechanical heart valves.POCT-GLUCOSE [id number] 12:47:00 Test Item Value Reference Range Interpretation Comments POC-GLUCOSE METER 133 mg/dL 70-110 H : TESTED A T [facility] 6720 (BEAKER) (test code [facility], = 1538) 24094: Hand Counter/Techni gretel ID = [id number] for TSEG GAI, TSIGHEREDA POCT-GLUCOSE [id number] 07:59:00 Test Item Value Reference Range Interpretation Comments POC-GLUCOSE METER 125 mg/dL 70-110 H : TESTED A T [facility] 6720 (BEAKER) (test code [facility], = 1538) 48788: Hand Counter/Techni gretel ID = [id number] for TSEG GAI, TSIGHEREDA POCT-GLUCOSE [id number] 21:06:00 Test Item Value Reference Range Interpretation Comments POC-GLUCOSE METER 192 mg/dL 70-110 H : TESTED A T [facility] 6720 (BEAKER) (test code = [facility], 1538) 18789: Hand Counter/Techni gretel ID = [id number] for DE NNIS, MALIHA POCT-GLUCOSE [id number] 17:33:00 Test Item Value Reference Range Interpretation Comments POC-GLUCOSE METER 124 mg/dL 70-110 H : [facility] (test code [facility], = 1538) 66500: Hand Counter/Techni gretel ID = [id number] for TSEG GAI, TSIGHEREDA POCT-GLUCOSE [id number] 11:50:00 Test Item Value Reference Range Interpretation Comments POC-GLUCOSE METER 102 mg/dL 70-110 : TESTED A T [facility] 6720 [facility] (test code [facility], = 1538) 19156: Hand Counter/Techni gretel ID = [id number] for TSEG GAI, TSIGHEREDA POCT-GLUCOSE [id number] 07:44:00 Test Item Value Reference Range Interpretation Comments POC-GLUCOSE METER 96 mg/dL 70-110 : TESTED A T [facility] 6720 ([facility]) (test code [facility], = 1538) 66269: Hand Counter/Techni gretel ID = [id number] for TSEG GAI, TSIGHEREDA POCT-GLUCOSE [id number] 22:28:00 Test Item Value Reference Range Interpretation Comments POC-GLUCOSE METER 201 mg/dL 70-110 H : Notified RN/MD: (GIFTY) (test code = TESTED AT [place] [address] 1538) [facility], [address]: Hand Counter/Techni gretel ID = [id number] for LATHBRIDGE, AMRITA ICE HEMOGLOBIN AND [id number] 11:01:00 Test Item Value Reference Range Interpretation Comments HEMOGLOBIN ([facility]) (test code = 9.3 GM/DL 11.2-15.7 L 410) HEMATOCRIT ([facility]) (test code = 28.8 % 34.1-44.9 L 411) Hand Counter ID - 6000POCT-GLUCOSE [id number] 23:42:00 Test Item Value Reference Range Interpretation Comments POC-GLUCOSE METER 158 mg/dL 70-110 H : Notified RN/MD: (GIFTY) (test code = TESTED AT [place] [address] 1538) [facility], [address]: Hand Counter/Techni gretel ID = [id number] for LATHBRIDGE, AMRITA ICE POCT-GLUCOSE [id number] 12:06:00 Test Item Value Reference Range Interpretation Comments POC-GLUCOSE METER 157 mg/dL 70-110 H : TESTED A T [facility] 6720 (BEAKER) (test code [facility], = 1538) 32345: Hand Counter/Techni gretel ID = [id number] for LIZ BRYAN [id number] 06:57:00 Test Item Value Reference Range Interpretation Comments MAGNESIUM (BEAKER) (test code = 1.7 mg/dL 1.6-2.6 627) Hand Counter ID - KEARA WBASIC METABOLIC [id number] 06:57:00 Test Item Value Reference Range Interpretation [...] S NOT APPLICABLE FOR DIALYSIS PATIEN TS. Hand Counter ID - KEARA WHEMOGLOBIN AND [id number] 05:42:00 Test Item Value Reference Range Interpretation Comments HEMOGLOBIN (BEAKER) (test code = 8.3 GM/DL 11.2-15.7 L 410) HEMATOCRIT (BEAKER) (test code = 26.4 % 34.1-44.9 L 411) Hand Counter ID - 6000POCT-GLUCOSE [id number] 22:26:00 Test Item Value Reference Range Interpretation Comments POC-GLUCOSE METER 137 mg/dL 70-110 H : TESTED A T [facility] 6720 (BEAKER) (test code = [facility], [facility]8) 81783: Hand Counter/Techni gretel ID = [id number] for MALLORY GRAHAM RAD, CHEST, 1 VIEW, NON [id number] 21:41:00Reason for exam:->shortness of breath, coughShould this [...] Annelise Davis Verified Date/Time: 05/25/2019 21:41:23 POCT-GLUCOSE [id number] 16:37:00 Test Item Value Reference Range Interpretation Comments POC-GLUCOSE METER 217 mg/dL 70-110 H : TESTED A T [facility] 6720 (BEAKER) (test code = [facility], 1538) 60676: Hand Counter/Techni gretel ID = [id number] for RO DGERS, JAMECA POCT-GLUCOSE [id number] 13:05:00 Test Item Value Reference Range Interpretation Comments POC-GLUCOSE METER 196 mg/dL 70-110 H : TESTED A T [facility] 6720 (BEAKER) (test code = [facility], 1538) 87666: Hand Counter/Techni gretel ID = [id number] for RO DGERS, JAMECA POCT-GLUCOSE [id number] 08:49:00 Test Item Value Reference Range Interpretation Comments POC-GLUCOSE METER 95 mg/dL 70-110 : TESTED A T [facility] 6720 (BEAKER) (test code = [facility], 1538) 50722: Hand Counter/Techni gretel ID = [id number] for RODG ERS, JAMECA HEMOGLOBIN AND [id number] 05:24:00 Test Item Value Reference Range Interpretation Comments HEMOGLOBIN (BEAKER) (test code = 8.4 GM/DL 11.2-15.7 L 410) HEMATOCRIT (BEAKER) (test code = 27.0 % 34.1-44.9 L 411) Hand Counter ID - 6000POCT-GLUCOSE [id number] 22:08:00 Test Item Value Reference Range Interpretation Comments POC-GLUCOSE METER 164 mg/dL 70-110 H : TESTED A T [facility] 6720 (BEAKER) (test code = [facility], 1538) 87165: Hand Counter/Techni gretel ID = [id number] for MALLORY GRAHAM POCT-GLUCOSE [id number] 12:57:00 Test Item Value Reference Range Interpretation Comments POC-GLUCOSE METER 156 mg/dL 70-110 H : TESTED A T [facility] 6720 (BEAKER) (test code = [facility], 1538) 86983: Hand Counter/Techni gretel ID = [id number] for NITA GRANGER POCT-GLUCOSE [id number] 08:38:00 Test Item Value Reference Range Interpretation Comments POC-GLUCOSE METER 102 mg/dL 70-110 : TESTED A T [facility] 6720 (BEAKER) (test code = [facility], 1538) 68077: Hand Counter/Techni gretel ID = [id number] for RO DGCORETTA, ROGERIOECA BASIC METABOLIC [id number] 06:30:00 Test Item Value Reference Range Interpretation [...] S NOT APPLICABLE FOR DIALYSIS PATIEN TS. Hand Counter ID - GALAPCBC (HEMOGRAM ONLY)2019-05-24 05:51:00 Test [...] 0-0 (BEAKER) (test code = 413) POCT-GLUCOSE [id number] 18:38:00 Test Item Value Reference Range Interpretation Comments POC-GLUCOSE METER 243 mg/dL 70-110 H : Notified RN/MD: (BEAKER) (test code = TESTED AT [facility] 9053 5184) [facility], [address]: Hand Counter/Techni gretel ID = [id number] for Keiry Owens BASIC METABOLIC [id number] 06:25:00 Test Item Value Reference Range Interpretation [...] S NOT APPLICABLE FOR DIALYSIS PATIEN TS. Hand Counter ID - GALAPCBC (HEMOGRAM ONLY)2019-05-23 05:56:00 Test [...] 0-0 (BEAKER) (test code = 413) POCT-GLUCOSE [id number] 00:29:00 Test Item Value Reference Range Interpretation Comments POC-GLUCOSE METER 126 mg/dL 70-110 H : TESTED A T [facility] 6720 (BEAKER) (test code = LEONARDMIKE Gurdeep [place], 1538) 1967[address]: Hand Counter/Techni gretel ID = [id number] for MASON PHELPS CBC W/PLT COUNT & AUTO [id number] 06:36:00 Test Item Value Reference Range Interpretation [...] PERCENT (BEAKER) (test code = 2801) POCT-GLUCOSE [id number] 06:11:00 Test Item Value Reference Range Interpretation Comments POC-GLUCOSE METER 111 mg/dL 70-110 H : TESTED A T [facility] 67 (BEAKER) (test code = HUMBERTO Mackenzie [facility], 1538) 13623: Hand Counter/Techni gretel ID = [id number] for RAFAEL CARBAJAL POCT-GLUCOSE [id number] 18:56:00 Test Item Value Reference Range Interpretation Comments POC-GLUCOSE METER 137 mg/dL 70-110 H : Notified RN/MD: (BEAKER) (test code = TESTED AT [facility] 6720 1538) [facility], [address]: Hand Counter/Techni gretel ID = [id number] for DANDY ESTRADA [id number] 13:58:00 Test Item Value Reference Range Interpretation Comments POTASSIUM (BEAKER) (test code = 3.9 meq/L 3.5-5.1 379) Hand Counter ID - MALOU [id number] 13:58:00 Test Item Value Reference Range Interpretation Comments MAGNESIUM (BEAKER) (test code = 1.8 mg/dL 1.6-2.6 627) Hand Counter ID - MALOU FCBC (HEMOGRAM ONLY)2019-05-21 13:41:00 [...] 0-0 (BEAKER) (test code = 413) POCT-GLUCOSE [id number] 13:11:00 Test Item Value Reference Range Interpretation Comments POC-GLUCOSE METER 164 mg/dL 70-110 H : Notified RN/MD: (BEAKER) (test code = TESTED AT [facility] [address] [id number]) [facility], [address]: Hand Counter/Techni gretel ID = [id number] for DANDY ESTRADA URIC [id number] 10:43:00 Test Item Value Reference Range Interpretation Comments URIC ACID (BEAKER) (test code = 5.7 mg/dL 2.6-7.2 773) Hand Counter ID - MALOU FBASIC METABOLIC [id number] 06:40:00 Test Item Value Reference Range Interpretation [...] S NOT APPLICABLE FOR DIALYSIS PATIEN TS. Hand Counter ID - KEARA WPOCT-GLUCOSE [id number] 06:37:00 Test Item Value Reference Range Interpretation Comments POC-GLUCOSE METER 156 mg/dL 70-110 H : TESTED A T [facility] 67[address] (BEAKER) (test code = [place], 1538) [address]: Hand Counter/Techni gretel ID = [id number] for [facility] RELA, RAJ CBC (HEMOGRAM ONLY)2019-05-21 [...] 0-0 (BEAKER) (test code = 413) POCT-GLUCOSE [id number] 00:42:00 Test Item Value Reference Range Interpretation Comments POC-GLUCOSE METER 155 mg/dL 70-110 H : TESTED A T [facility] [address] (BEAKER) (test code = [facility], 1538) [address]: Hand Counter/Techni gretel ID = [id number] for [facility] RELA, RAJ [id number] 19:49:00 Test Item Value Reference Range Interpretation Comments FERRITIN (BEAKER) (test code = 361) 29 ng/mL 5-275 Hand Counter ID - TERRI [id number] 18:51:00 Test Item Value Reference Range Interpretation Comments TRANSFERRIN (BEAKER) (test code = 211 mg/dL 174-382 541) Hand Counter ID - TERRI CARL, TIBC, % SAT. (WITHOUT FERRITIN)2019-05-20 18:51:00 Test Item Value Reference Range Interpretation Comments IRON (BEAKER) (test code = 547) 14.0 ug/dL 40.0-160.0 L TOTAL IRON BINDING CAPACITY 264 ug/dL 250-450 (BEAKER) (test code = 769) IRON % SATURATION (2) (BEAKER) 5 % 20-55 L (test code = 2590) Hand Counter ID - TERRI GRAHAM, ANKLE, 1 VIEW, [id number] 18:09:00Reason for exam:- >left ankle painShould this be performed at the bedside?->YesFINAL REPORT TECHNIQUE: Two views of left ankle HISTORY: left ankle pain. COMPARISON: None. IMPRESSION:No acute displaced fracture or dislocation. Joint spaces are within normal limits.Minimal Achilles enthesopathy. Large plantar calcaneal spur and enthesopathy. Signed: Steven Lymaneport Verified Date/Time: 05/20/2019 18:09:20 Reading Location: [address] Consult Reading Room CBC (HEMOGRAM ONLY)2019-05-20 [...] WBC 0-0 (BEAKER) (test code = 413) [id number] 05:29:00 Test Item Value Reference Range Interpretation Comments MAGNESIUM (BEAKER) 1.9 mg/dL 1.6-2.6 Specimen slightly (test code = 627) hemolyzed Hand Counter ID - TERRI [id number] 05:29:00 Test Item Value Reference Range Interpretation Comments PHOSPHORUS (BEAKER) 3.3 mg/dL 2.3-4.7 Specimen slightly (test code = 604) hemolyzed Hand Counter ID - TERRI MBASIC METABOLIC [id number] 05:29:00 Test Item Value Reference Range Interpretation [...] S NOT APPLICABLE FOR DIALYSIS PATIEN TS. Hand Counter ID - TERRI MCBC (HEMOGRAM ONLY)2019-05-20 04:51:00 [...] 0-0 (BEAKER) (test code = 413) POCT-GLUCOSE [id number] 18:36:00 Test Item Value Reference Range Interpretation Comments POC-GLUCOSE METER 101 mg/dL 70-110 : TESTED A T [facility] 6720 (BEAKER) (test code = HUM[place]ERTO CABALLERO [place], 1538) [address]: Hand Counter/Techni gretel ID = [id number] for DANDY ESTRADA CBC (HEMOGRAM ONLY)2019-05-19 18:33:00 [...] 0-0 (BEAKER) (test code = 413) POCT-GLUCOSE [id number] 12:30:00 Test Item Value Reference Range Interpretation Comments POC-GLUCOSE METER 130 mg/dL 70-110 H : TESTED A T [facility] 6720 (BEAKER) (test code = [place], 1538) [address]: Hand Counter/Techni gretel ID = [id number] for DANDY ESTRADA [id number] 08:02:00 Test Item Value Reference Range Interpretation Comments PHOSPHORUS (BEAKER) (test code = 2.5 mg/dL 2.3-4.7 604) Hand Counter ID - TERRI [id number] 08:02:00 Test Item Value Reference Range Interpretation Comments MAGNESIUM (BEAKER) (test code = 1.6 mg/dL 1.6-2.6 627) Hand Counter ID - TERRI MBASIC METABOLIC [id number] 08:02:00 Test Item Value Reference Range Interpretation [...] S NOT APPLICABLE FOR DIALYSIS PATIEN TS. Hand Counter ID - TERRI [id number] 07:40:00 Test Item Value Reference Range Interpretation Comments FIBRINOGEN LEVEL (BEAKER) (test 489 mg/dl 225-434 H code = 658) [id number] 07:40:00 Test Item Value Reference Range Interpretation [...] CORPUSCULAR HEMOGLOBIN CONC 30.4 GM/DL 32.2-35.5 L (AKER) (test code = 752) RED CELL DISTRIBUTION WIDTH 14.5 % 11.7-14.4 H (BEAKER) (test code = 412) PLATELET COUNT ([facility]) (test 236 K/CU MM 150-450 code = 756) MEAN PLATELET VOLUME (BEAKER) 11.5 fL 9.4-12.3 (test code = 754) NUCLEATED RED BLOOD CELLS 0 /100 WBC 0-0 ([facility]) (test code = 413) POCT-GLUCOSE [id number] 00:26:00 Test Item Value Reference Range Interpretation Comments POC-GLUCOSE METER 110 mg/dL 70-110 : Notified RN/MD: ([facility]) (test code = TESTED AT [facility] 67 1538) [facility], [address]: Hand Counter/Techni gretel ID = [id number] for CHRIS PEREZ POCT-GLUCOSE [id number] 18:22:00 Test Item Value Reference Range Interpretation Comments POC-GLUCOSE METER 127 mg/dL 70-110 H : [facility] T [facility] ([facility]) (test code = [facility], 153) [address]: Hand Counter/Techni gretel ID = [id number] for RADHA DE LOS SANTOS POCT-GLUCOSE [id number] 12:25:00 Test Item Value Reference Range Interpretation Comments POC-GLUCOSE METER 171 mg/dL 70-110 H : TESTED A T [facility] ([facility]) (test code = [facility], 153) [address]: Hand Counter/Techni gretel ID = [id number] for RADHA DE LOS SANTOS [id number] 04:17:00 Test Item Value Reference Range Interpretation Comments PHOSPHORUS ([facility]) (test code = 2.0 mg/dL 2.3-4.7 L 604) Hand Counter ID - KEARA [id number] 04:17:00 Test Item Value Reference Range Interpretation Comments MAGNESIUM (BEAKER) (test code = 1.6 mg/dL 1.6-2.6 627) Hand Counter DEDE SARAH WBASIC METABOLIC [id number] 04:17:00 Test Item Value Reference Range Interpretation [...] S NOT APPLICABLE FOR DIALYSIS PATIEN TS. Hand Counter DEDE SARAH WCBC (HEMOGRAM ONLY)2019-05-18 03:55:00 Test Item [...] 0-0 (BEAKER) (test code = 413) POCT-GLUCOSE [id number] 18:43:00 Test Item Value Reference Range Interpretation Comments POC-GLUCOSE METER 139 mg/dL 70-110 H : TESTED A T [facility] 6720 (BEAKER) (test code = [place], 1538) [address]: Hand Counter/Techni gretel ID = [id number] for RADHA DE LOS SANTOS, CAROTID STENT W [id number] 15:10:00Reason for exam:->left carotid stenosisFINAL REPORT Date [...] guidance and strict sterile technique a 6 Austrian shuttle sheath was inserted through the right [...] of approximately 70%. A distal protective device (ebookpie) was gently navigated through the stenotic segment [...] MDReport Verified Date/Time: 05/17/2019 15:10:42 Reading Location: [facility] [id number] Neuro Angio Reading Room POCT-GLUCOSE [id number] 12:40:00 Test Item Value Reference Range Interpretation Comments POC-GLUCOSE METER 130 mg/dL 70-110 H : TESTED A T [facility] 6720 (BEAKER) (test code = HUMBERTO Mackenzie [facility], 1538) [address]: Hand Counter/Techni gretel ID = [id number] for RADHA DE LOS SANTOS PROTHROMBIN [id number] 11:08:00 Test Item Value Reference Range Interpretation [...] INR is2.5-3.5 for patients wiht mechanical heart valves.[id number] 09:19:00 Test Item Value Reference Range Interpretation Comments PARTIAL THROMBOPLASTIN TIME 37.6 seconds 22.5-36.0 H (BEAKER) (test code = 760) POCT-GLUCOSE [id number] 06:49:00 Test Item Value Reference Range Interpretation Comments POC-GLUCOSE METER 110 mg/dL 70-110 : TESTED A T [facility] 6720 (BEAKER) (test code = HUMBERTO Mackenzie [facility], 1538) [address]: Hand Counter/Techni gretel ID = [id number] for MASON PHELPS BASIC METABOLIC [id number] 05:59:00 Test Item Value Reference Range Interpretation [...] S NOT APPLICABLE FOR DIALYSIS PATIEN TS. Hand Counter ID - TERRI [id number] 05:35:00 Test Item Value Reference Range Interpretation Comments PARTIAL THROMBOPLASTIN TIME 38.3 seconds 22.5-36.0 H (BEAKER) (test code = 760) Prior to initiating heparinPOCT-P2Y12 PLATELET [id number] 05:34:00 Test Item Value Reference Range Interpretation Comments POC-P2Y12 PLATELET AGG (BEAKER) (test 230 PRU code = 2303) RANGE INFORMATION: PRU reference range is 194-418. Post Drug Results: Lower PRU levels are associated with expected antiplatelet effect. Values may be below the stated reference range above. The post-drug PRU values reported in the [employer]Now P2Y12 package insert are 18-435.POCT-ASPIRIN PLATELET [id number] 05:34:00 Test Item Value Reference Range Interpretation Comments POC-ASPIRIN PLATELET AGG (BEAKER) 564 ARU (test code = 2302) RANGE INFORMATION: 350-549 ARU Therapeutic range for platelet function. 550-700 ARU Non-Therapeutic range for platelet function.[id number] 05:34:00 Test Item Value Reference Range Interpretation [...] WBC 0-0 (BEAKER) (test code = 413) [id number] 02:03:00 Test Item Value Reference Range Interpretation Comments PARTIAL THROMBOPLASTIN TIME 35.8 seconds 22.5-36.0 (BEAKER) (test code = 760) 6 hours after starting heparin infusion and as indicated per sliding scalePOCT- GLUCOSE [id number] 00:00:00 Test Item Value Reference Range Interpretation Comments POC-GLUCOSE METER 109 mg/dL 70-110 : TESTED A T [facility] 67[address] ([facility]) (test code = [facility], 153) [address]: Hand Counter/Techni gretel ID = [id number] for MASON PHELPS POCT-GLUCOSE [id number] 18:48:00 Test Item Value Reference Range Interpretation Comments POC-GLUCOSE METER 148 mg/dL 70-110 H : Notified RN/MD: ([facility]) (test code = TESTED AT [facility] 6720 1538) [facility], [address]: Hand Counter/Techni gretel ID = [id number] for STEWART MOORE [place], ANGIOGRAM, [id number] 16:45:00Reason for exam:->basilar tip aneurysmFINAL REPORT Date [...] guidance and strict sterile technique a 4 Austrian femoral sheath was inserted into the right radial artery. Through the sheath a 4 Austrian Weaver catheter was then advanced over the [...] 8 mm basilar apex aneurysm. Signed: Khai Carrascoort Verified Date/Time: 05/16/2019 16:45:20 Reading Location: [facility] Reading [facility] POCT-GLUCOSE [id number] 13:41:00 Test Item Value Reference Range Interpretation Comments POC-GLUCOSE METER 120 mg/dL 70-110 H : TESTED A T [facility] 67[address] ([facility]) (test code = LEONARDMIKE Mackenzie [facility], 1538) [address]: Hand Counter/Techni gretel ID = [id number] for ESVIN LAMBERT [id number] 09:24:00 Test Item Value Reference Range Interpretation Comments PARTIAL THROMBOPLASTIN TIME 36.3 seconds 22.5-36.0 H (BEAKER) (test code = 760) 6 hours after starting heparin infusion and as indicated [facility]2019-05-16 09:10:00 Test Item Value Reference [...] WBC 0-0 (BEAKER) (test code = 413) [id number] 03:01:00 Test Item Value Reference Range Interpretation [...] heart valves.Prior to initiating heparinPrior to initiating [id number] 03:01:00 Test Item Value Reference Range Interpretation Comments PARTIAL THROMBOPLASTIN TIME 32.2 seconds 22.5-36.0 (BEAKER) (test code = 760) BASIC METABOLIC [id number] 02:58:00 Test Item Value Reference Range Interpretation [...] S NOT APPLICABLE FOR DIALYSIS PATIEN TS. Hand Counter ID - TERRI MPLATELET [id number] 02:45:00 Test Item Value Reference Range Interpretation Comments PLATELET COUNT (BEAKER) (test 231 K/CU MM 150-450 code = 756) Hand Counter ID - [id number], CEREBRAL PERFUSION [id number] 01:22:00FINAL REPORT CT cerebral perfusion analysis. Comparison: [...] Signed: Fabiano Montoya Verified Date/Time: 05/16/2019 01:22:48 CT, CTANGIO [id number] 01:09:00 FINAL REPORT EXAM: CT, CT Angio, [...] approximately 1:05 AM 05/16/2019. Signed: Fabiano Montoya MDRepmissouri [facility] Verified Date/Time: 05/16/2019 01:09:25 CT, CAROTID, ANGIO [...] Signed: Fabiano Montoya Verified Date/Time: 05/16/2019 01:09:25 [facility], BRAIN/STROKE PROTOCOL 2019-05-15 23:34:00FINAL REPORT EXAM: [...] at 11:30 PM 05/15/2019. Signed: Fabiano Montoya MDReport Verified Date/Time: 05/15/2019 23:34:22 POCT-GLUCOSE [id number] 20:57:00 Test Item Value Reference Range Interpretation Comments POC-GLUCOSE METER 119 mg/dL 70-110 H : TESTED A T [facility] 67[address] (BEAKER) (test code = HUMBERTO Mackenzie [facility], 4228) [address]: Hand Counter/Techni gretel ID = [id number] for CARLINE HARDING PROTHROMBIN [id number] 19:47:00 Test Item Value Reference Range Interpretation [...] is2.5-3.5 for patients wiht mechanical heart valves.POCT-GLUCOSE [id number] 17:51:00 Test Item Value Reference Range Interpretation Comments POC-GLUCOSE METER 125 mg/dL 70-110 H : TESTED A T [facility] 6720 (BEAKER) (test code = [facility], 1538) [address]: Hand Counter/Techni gretel ID = [id number] for BR OWN, MARIA DEL CARMEN POCT-GLUCOSE [id number] 11:55:00 Test Item Value Reference Range Interpretation Comments POC-GLUCOSE METER 169 mg/dL 70-110 H : TESTED A T [facility] 6720 (BEAKER) (test code = [facility], 1538) [address]: Hand Counter/Techni gretel ID = [id number] for BR OWN, MARIA DEL CARMEN HEMOGLOBIN [id number] 10:46:00 Test Item Value Reference Range Interpretation Comments HEMOGLOBIN A1C (BEAKER) (test code = 5.8 % 4.3-6.1 368) POCT-GLUCOSE [id number] 08:50:00 Test Item Value Reference Range Interpretation Comments POC-GLUCOSE METER 134 mg/dL 70-110 H : TESTED A T [facility] 6720 (BEAKER) (test code = [facility], 1538) [address]: Hand Counter/Techni gretel ID = [id number] for BR OWN, MARIA DEL CARMEN VITAMIN B12 AND [id number] 07:44:00 Test Item Value Reference Range Interpretation Comments VITAMIN B12 (BEAKER) (test code = 472 pg/mL 213816 774) FOLATE (BEAKER) (test code = 362) 19.4 ng/mL >=7.0 Hand Counter ID - MALOU FPOCT-GLUCOSE [id number] 06:57:00 Test Item Value Reference Range Interpretation Comments POC-GLUCOSE METER 114 mg/dL 70-110 H : TESTED A T [facility] 6720 (BEAKER) (test code = [facility], 1538) [address]: Hand Counter/Techni gretel ID = [id number] for DE NNIS, MALIHA LIPID [id number] 06:53:00 Test Item Value Reference Range Interpretation [...] Borderline 130-159 High 160-189 Very High >=190 Hand Counter ID - PIAYALBASIC METABOLIC [id number] 06:53:00 Test Item Value Reference Range Interpretation [...] S NOT APPLICABLE FOR DIALYSIS PATIEN TS. Hand Counter ID - PIAYA LCBC (HEMOGRAM ONLY)2019-05-15 06:29:00 [...] (test code = 413) MR, BRAIN, WITHOUT [id number] 04:06:00FINAL REPORT EXAM: MR, BRAIN, WITHOUT CONTRAST [...] Rosario MDReport Verified Date/Time: 05/15/2019 04:06:56 POCT-GLUCOSE [id number] 21:18:00 Test Item Value Reference Range Interpretation Comments POC-GLUCOSE METER 95 mg/dL 70-110 : TESTED A T [facility] 67[address] (BEAKER) (test code = HUM[place]ERTO [place], 1538) [address]: Hand Counter/Techni gretel ID = [id number] for MALIHA COWAN BASIC METABOLIC [id number] 14:37:00 Test Item Value Reference Range Interpretation [...] APPLICABLE FOR DIALYSIS PATIEN TS. BASIC METABOLIC [id number] 13:34:00 Test Item Value Reference Range Interpretation [...] S NOT APPLICABLE FOR DIALYSIS PATIEN TS. [id number] 12:49:00 Test Item Value Reference Range Interpretation [...] mechanical heart valves.CBC W/PLT COUNT & AUTO [id number] 12:48:00 Test Item Value Reference Range Interpretation [...] % 0-1 PERCENT (BEAKER) (test code = 6407)
[2020-12-17 00:48] LABS: Basophils % 0.2 % (0-1.3); Lymphocytes % 4.5 % (15.3-44.8); MPV 9.1 fL (7.6-11.3); RBC Red Blood Cell Count 4.48 M/uL (3.86-4.86)
[2020-12-17] MEDS ORDERED: ONDANSETRON 4 MG/2 ML VIAL ONE (00:50)
[2020-12-17] MEDS ORDERED: NA CHLORIDE 0.9% 1,000 ML ONE ×2 (00:50→14:34)
[2020-12-17] MEDS ORDERED: METOPROLOL TARTRATE 5 MG/5 ML INJ IV ONE ×2 (00:50→01:49)
[2020-12-17 00:56] LABS: Protime INR 1.23
[2020-12-17 01:18] LABS: Potassium 3.7 mmol/L (3.5-5.1)
[2020-12-17 01:19] LABS: Albumin 2.4 g/dL (3.4-5.0); Bilirubin Direct 0.2 mg/dL (0-0.2); Bilirubin Total 0.7 mg/dL (0.2-1.0); Magnesium 1.6 mg/dL (1.8-2.4); Troponin (Emerg Dept Use Only) 0.06 ng/mL (0.0-0.045); Uric Acid 5.3 mg/dL (2.6-6.0)
[2020-12-17] MEDS ORDERED: HYDRALAZINE HCL 20 MG/ML VIAL ONE (02:49)
[2020-12-17] MEDS ORDERED: NA CHLORIDE 0.9% 250 ML ONE (03:07)
[2020-12-17] MEDS ORDERED: VANCOMYCIN 1 GM/VIAL ONE (03:07)
[2020-12-17] MEDS ORDERED: MAGNESIUM SULFATE 1 gm IVPB 1 GM/100 ML BAG IV ONE (03:08)
[2020-12-17 03:21] LABS: Blood Morphology Comment NOT SEEN (NOT SEEN); Platelet Estimate ADEQ; White Blood Cell Scan OK (OK)
[2020-12-17] MEDS ORDERED: PROMETHAZINE INJ 25 MG/ML AMP ONE (03:26)
--- NOTE | 2020-12-17 05:11 | ER ---
Nurse's Notes [facility] Name: Bharati Lancaster Age: 80 yrs Sex: Female : 1940 Arrival Date: 12/16/2020 Time: 21:29 Bed 4 Private MD: Diagnosis: Cellulitis right hand and forearm. Persistent vomiting. Uncontrolled hypertension Presentation: 12/16 22:16 Chief complaint: Patient's son or daughter states: She has been having high blood jb4 pressure for the past 9 days. She has not been able to take her medications as needed because she has not been able to keep anything down. She started having swelling in her right hand and wrist over the past week and the pain has gotten worse over the past 2 days. Has had constant N/V for the past 2 days. Coronavirus screen: Vaccine status: Patient reports receiving the 1st dose of the Covid vaccine. J\T\J on August 17. Ebola Screen: No symptoms or risks identified at this time. Initial Sepsis Screen: Does the patient meet any 2 criteria? HR > 90 bpm. Yes Does the patient have a suspected source of infection? No. Patient's initial sepsis screen is negative. Risk Assessment: Do you want to hurt yourself or someone else? Patient reports no desire to harm self or others. Onset of symptoms was December 07, 2020. Transition of care: patient was not received from another setting of care. 22:16 Method Of Arrival: Wheelchair jb4 22:16 Acuity: GONZALEZ 2 jb4 Historical: - Allergies: 22:21 Baclofen; jb4 22:21 ceftriaxone; jb4 22:21 Codeine; jb4 22:21 codeine sulfate; jb4 22:21 Cyclobenzaprine; jb4 22:21 Darvocet-N 100; jb4 22:21 Demerol; jb4 22:21 Hydrocodone-Acetaminophen; jb4 22:21 Morphine; jb4 22:21 PENICILLINS; jb4 22:21 plastic tape; jb4 22:21 Propoxyphene N-Acetaminophen; jb4 22:21 Tape; jb4 - Home Meds: 22:21 allopurinol 100 mg Oral tab 1 tab once daily [Active]; amlodipine 5 mg tab 1 tab once jb4 daily [Active]; aspirin 81 mg Oral TbEC [Active]; atorvastatin 80 mg Oral tab 1 tab once daily [Active]; clonidine HCl 0.1 mg Oral tab [Active]; colchicine 0.6 mg Oral cap [Active]; Cosamin DS 500-400 mg Oral cap every 8 hours [Active]; esomeprazole magnesium 20 mg Oral TbEC daily [Active]; levothyroxine 50 mcg tab 1 tab once daily [Active]; losartan potassium (bulk) 100 mg miscellaneous powd daily [Active]; magnesium oxide 400 mg Oral tab [Active]; melatonin 10 mg Oral tab daily [Active]; metoprolol tartrate 100 mg Oral tab 1 tab once daily [Active]; pantoprazole 40 mg Oral TbEC [Active]; Preser Vision AREDS 2 [Active]; Triamcinolone Acetonide Topical [Active]; tramadol 50 mg Oral TbDi 50 mg as needed [Active]; urinary tract complex+ D-Mannose [Active]; Vitamin D3 25 mcg (1,000 unit) Oral chew [Active]; - PMHx: 22:21 Aneurysm; Atrial Fib; bladder infections; carpal tunnel; Cataract; Cerebrovascular 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 Date received August 17, 2020. - Social history:: Smoking status: Patient denies any tobacco usage or history of. Patient/guardian denies using alcohol, street drugs. Screenin:00 Abuse screen: Denies threats or abuse. Nutritional screening: No deficits noted. jb4 Tuberculosis screening: No symptoms or risk factors identified. Fall Risk IV access (20 points). Gait- Normal/Bed Rest/Wheelchair (0 pts) Mental Status- Oriented to own ability (0 pts). Total Lee Fall Scale indicates No Risk (0-24 pts). Assessment: 22:00 General: Appears in no apparent distress. uncomfortable, Behavior is calm, cooperative, jb4 appropriate for age. Pain: Complains of pain in right hand Pain does not radiate. Pain currently is 10 out of 10 on a pain scale. Neuro: Level of Consciousness is awake, alert, obeys commands, Oriented to person, place, time, situation. Cardiovascular: Patient's skin is warm and dry. Respiratory: Airway is patent Respiratory effort is even, unlabored, Respiratory pattern is regular, symmetrical. GI: Abdomen is non-distended, obese, Reports nausea. : No signs and/or symptoms were reported regarding the genitourinary system. EENT: No signs and/or symptoms were reported regarding the EENT system. Derm: Skin is intact, Skin is pink, warm \T\ dry. Musculoskeletal: Circulation, motion, and sensation intact. Range of motion: intact in all extremities. 23:00 Reassessment: Patient appears in no apparent distress at this time. Patient and/or jb4 family updated on plan of care and expected duration. Pain level reassessed. Patient is alert, oriented x 3, equal unlabored respirations, skin warm/dry/pink. 12/17 00:00 Reassessment: Patient appears in no apparent distress at this time. Patient and/or jb4 family updated on plan of care and expected duration. Pain level reassessed. Patient is alert, oriented x 3, equal unlabored respirations, skin warm/dry/pink. 01:00 Reassessment: Patient appears in no apparent distress at this time. Patient and/or jb4 family updated on plan of care and expected duration. Pain level reassessed. Patient is alert, oriented x 3, equal unlabored respirations, skin warm/dry/pink. 02:07 Reassessment: Patient appears in no apparent distress at this time. Patient and/or jb4 family updated on plan of care and expected duration. Pain level reassessed. Patient is alert, oriented x 3, equal unlabored respirations, skin warm/dry/pink. 03:00 Reassessment: Patient appears in no apparent distress at this time. Patient and/or jb4 family updated on plan of care and expected duration. Pain level reassessed. Patient is alert, oriented x 3, equal unlabored respirations, skin warm/dry/pink. 04:00 Reassessment: Patient appears in no apparent distress at this time. Patient and/or jb4 family updated on plan of care and expected duration. Pain level reassessed. Patient is alert, oriented x 3, equal unlabored respirations, skin warm/dry/pink. 05:00 Reassessment: Patient appears in no apparent distress at this time. Patient and/or jb4 family updated on plan of care and expected duration. Pain level reassessed. Patient is alert, oriented x 3, equal unlabored respirations, skin warm/dry/pink. Vital Signs: 12/16 22:16 BP 191 / 126; Pulse 107; Resp 14; Temp 97.6(TE); Pulse Ox 98% on R/A; Weight 77.56 kg jb4 (R); Height 5 ft. 6 in. (167.64 cm) (R); Pain 10/10; 12/17 00:00 BP 188 / 76; Pulse 104; Resp 16; Pulse Ox 97% on R/A; jb4 01:00 BP 200 / 81; Pulse 81; Resp 18; Pulse Ox 93% on R/A; jb4 01:45 BP 177 / 75; Pulse 76; Resp 15; Pulse Ox 93% on R/A; jb4 02:15 BP 197 / 80; Pulse 78; Resp 16; Pulse Ox 94% on R/A; jb4 03:15 BP 113 / 53; Pulse 89; Resp 18; Pulse Ox 95% on R/A; jb4 04:00 BP 150 / 69; Pulse 89; Resp 22; Pulse Ox 96% on R/A; jb4 05:00 BP 180 / 51; Pulse 90; Resp 26; Pulse Ox 95% on R/A; jb4 12/16 22:16 Body Mass Index 27.60 (77.56 kg, 167.64 cm) jb4 ED Course: 12/16 21:29 Patient arrived in ED. wm 22:00 Patient has correct armband on for positive identification. Placed in gown. Bed in low jb4 position. Call light in reach. Side rails up X 1. site monitor on. Pulse ox on. NIBP on. 22:04 Kirk Domingo MD is Attending Physician. pkl 22:15 Humberto Maddox, RN is Primary Nurse. jb4 22:21 Triage completed. jb4 22:21 Arm band placed on right wrist. jb4 23:00 XRAY Chest (1 view) In Process Unspecified. EDMS 23:18 CT Head Brain wo Cont In Process Unspecified. EDMS 12/17 00:07 UPPER EXTREMITY VENOUS UNILATE In Process Unspecified. EDMS 03:30 Reed cath inserted, using sterile technique, 16 Fr., by ne, balloon inflated, to ds4 gravity drainage. 05:08 Casa Morton MD is Hospitalizing Provider. pkl 06:00 No provider procedures requiring assistance completed. Patient admitted, IV remains in hb place. Administered Medications: 00:45 Drug: NS 0.9% 1000 ml Route: IV; Rate: 100 ml/hr; Site: left forearm; jb4 00:45 Drug: Zofran (Ondansetron) 4 mg Route: IVP; Site: left forearm; jb4 01:15 Follow up: Response: No adverse reaction; Marked relief of symptoms jb4 00:45 Drug: Lopressor (metoprolol) 5 mg Route: IVP; Site: left forearm; jb4 01:28 Drug: Lopressor (metoprolol) 5 mg Route: IVP; Site: left forearm; jb4 01:35 Drug: Lopressor (metoprolol) 5 mg Route: IVP; Site: left forearm; jb4 02:00 Follow up: Response: No adverse reaction; Marked relief of symptoms jb4 02:30 Drug: hydrALAZINE 20 mg Route: IVP; Site: left forearm; jb4 03:00 Follow up: Response: No adverse reaction; Marked relief of symptoms jb4 03:04 Drug: Phenergan (promethazine) 12.5 mg Route: IVP; Site: left hand; ea 03:30 Follow up: Response: No adverse reaction; Marked relief of symptoms jb4 03:33 Drug: vancoMYCIN 1 grams Route: IVPB; Infused Over: 2 hrs; Site: left forearm; jb4 03:33 Drug: Magnesium Sulfate 1 grams Route: IVPB; Infused Over: 1 hrs; Site: left forearm; jb4 04:33 Follow up: Response: No adverse reaction; IV Status: Completed infusion; IV Intake: jb4 100ml Intake: 04:33 IV: 100ml; Total: 100ml. jb4 Outcome: 05:10 Decision to Hospitalize by Provider. pkl 07:15 Admitted to ER Hold. Please see [facility] for further documentation. hb 07:15 Condition: stable 07:15 Instructed on the need for admit, Demonstrated understanding of instructions. 15:25 Patient left the ED. ss Signatures: Dispatcher [facility] EDKirk Sousa MD MD pkl Smirch, Shelby, RN RN ss Eusebio Taveras ds4 Peggy Rushing RN RN Humberto Maddox RN RN jb4 Daria Zamora RN RN Dana Luong Corrections: (The following items were deleted from the chart) 00:50 00:45 Zofran (Ondansetron) 4 mg IVP in left antecubital jb4 jb4 01:32 01:31 Lopressor (metoprolol) 5 mg IVP in left forearm jb4 jb4
--- NOTE | 2020-12-17 05:11 | EDPHYS ---
Physician Documentation [facility] Name: Bharati Lancaster Age: 80 yrs Sex: Female : 1940 Arrival Date: 12/16/2020 Time: 21:29 Bed 4 Private MD: ED Physician Kirk Domingo HPI: 12/16 22:40 This 80 yrs old Female presents to ER via Wheelchair with complaints of High pkl Blood Pressure - 213/106, Vomiting. 22:40 The patient or guardian complains of pain, that is acute, swelling, erythema. The pkl complaints affect the right hand and forearm. Context: resulted from unknown cause. Onset: The symptoms/episode began/occurred 1 week(s) ago, and became worse yesterday. Associated signs and symptoms: Pertinent positives: vomiting, elevated blood pressure. Historical: - Allergies: 22:21 Baclofen; jb4 22:21 ceftriaxone; jb4 22:21 Codeine; jb4 22:21 codeine sulfate; jb4 22:21 Cyclobenzaprine; jb4 22:21 Darvocet-N 100; jb4 22:21 Demerol; jb4 22:21 Hydrocodone-Acetaminophen; jb4 22:21 Morphine; jb4 22:21 PENICILLINS; jb4 22:21 plastic tape; jb4 22:21 Propoxyphene N-Acetaminophen; jb4 22:21 Tape; jb4 - Home Meds: 22:21 allopurinol 100 mg Oral tab 1 tab once daily [Active]; amlodipine 5 mg tab 1 tab once jb4 daily [Active]; aspirin 81 mg Oral TbEC [Active]; atorvastatin 80 mg Oral tab 1 tab once daily [Active]; clonidine HCl 0.1 mg Oral tab [Active]; colchicine 0.6 mg Oral cap [Active]; Cosamin DS 500-400 mg Oral cap every 8 hours [Active]; esomeprazole magnesium 20 mg Oral TbEC daily [Active]; levothyroxine 50 mcg tab 1 tab once daily [Active]; losartan potassium (bulk) 100 mg miscellaneous powd daily [Active]; magnesium oxide 400 mg Oral tab [Active]; melatonin 10 mg Oral tab daily [Active]; metoprolol tartrate 100 mg Oral tab 1 tab once daily [Active]; pantoprazole 40 mg Oral TbEC [Active]; Preser Vision AREDS 2 [Active]; Triamcinolone Acetonide Topical [Active]; tramadol 50 mg Oral TbDi 50 mg as needed [Active]; urinary tract complex+ D-Mannose [Active]; Vitamin D3 25 mcg (1,000 unit) Oral chew [Active]; - PMHx: 22:21 Aneurysm; Atrial Fib; bladder infections; carpal tunnel; Cataract; Cerebrovascular 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 Date received August 17, 2020. - Social history:: Smoking status: Patient denies any tobacco usage or history of. Patient/guardian denies using alcohol, street drugs. ROS: 22:44 Eyes: Negative for injury, pain, redness, and discharge, ENT: Negative for injury, pkl pain, and discharge, Neck: Negative for injury, pain, and swelling, Cardiovascular: Negative for chest pain, palpitations, and edema, Respiratory: Negative for shortness of breath, cough, wheezing, and pleuritic chest pain. 22:44 Abdomen/GI: Positive for nausea and vomiting. 22:44 Back: Negative for acute changes. 22:44 : Negative for urinary symptoms. 22:44 MS/extremity: Positive for erythema, pain, swelling, tenderness, warmth, of the right hand and forearm. 22:44 Skin: Negative for cellulitis, erythema, swelling, right hand and forearm. 22:44 Neuro: Negative for altered mental status, loss of consciousness. Exam: 22:44 Head/Face: Normocephalic, atraumatic. Eyes: Pupils equal round and reactive to light, pkl extra-ocular motions intact. Lids and lashes normal. Conjunctiva and sclera are non-icteric and not injected. Cornea within normal limits. Periorbital areas with no swelling, redness, or edema. ENT: Nares patent. No nasal discharge, no septal abnormalities noted. Tympanic membranes are normal and external auditory canals are clear. Oropharynx with no redness, swelling, or masses, exudates, or evidence of obstruction, uvula midline. Mucous membranes moist. Neck: Trachea midline, no thyromegaly or masses palpated, and no cervical lymphadenopathy. Supple, full range of motion without nuchal rigidity, or vertebral point tenderness. No Meningismus. Chest/axilla: Normal chest wall appearance and motion. Nontender with no deformity. No lesions are appreciated. Cardiovascular: Regular rate and rhythm with a normal S1 and S2. No gallops, murmurs, or rubs. Normal PMI, no JVD. No pulse deficits. Respiratory: Lungs have equal breath sounds bilaterally, clear to auscultation and percussion. No rales, rhonchi or wheezes noted. No increased work of breathing, no retractions or nasal flaring. Abdomen/GI: Soft, non-tender, with normal bowel sounds. No distension or tympany. No guarding or rebound. No evidence of tenderness throughout. Back: No spinal tenderness. No costovertebral tenderness. Full range of motion. Neuro: Awake and alert, GCS 15, oriented to person, place, time, and situation. Cranial nerves II-XII grossly intact. Motor strength 5/5 in all extremities. Sensory grossly intact. Cerebellar exam normal. Normal gait. 22:44 Musculoskeletal/extremity: Extremities: grossly normal except: noted in the right hand and forearm: erythema, pain, swelling, tenderness. Vital Signs: 22:16 BP 191 / 126; Pulse 107; Resp 14; Temp 97.6(TE); Pulse Ox 98% on R/A; Weight 77.56 kg jb4 (R); Height 5 ft. 6 in. (167.64 cm) (R); Pain 10/10; 0907 00:00 BP 188 / 76; Pulse 104; Resp 16; Pulse Ox 97% on R/A; jb4 01:00 BP 200 / 81; Pulse 81; Resp 18; Pulse Ox 93% on R/A; jb4 01:45 BP 177 / 75; Pulse 76; Resp 15; Pulse Ox 93% on R/A; jb4 02:15 BP 197 / 80; Pulse 78; Resp 16; Pulse Ox 94% on R/A; jb4 03:15 BP 113 / 53; Pulse 89; Resp 18; Pulse Ox 95% on R/A; jb4 04:00 BP 150 / 69; Pulse 89; Resp 22; Pulse Ox 96% on R/A; jb4 05:00 BP 180 / 51; Pulse 90; Resp 26; Pulse Ox 95% on R/A; jb4 12/16 22:16 Body Mass Index 27.60 (77.56 kg, 167.64 cm) jb4 MDM: 12/16 22:04 Patient medically screened. pkl 12/17 05:04 Data reviewed: vital signs, nurses notes, lab test result(s), EKG, radiologic studies, pkl CT scan, plain films, ultrasound. 12/16 22:32 Order name: Basic Metabolic Panel pkl 12/16 22:32 Order name: CBC with Diff; Complete Time: 05:02 pkl 12/16 22:32 Order name: LFT's; Complete Time: 02:28 pkl 12/16 22:32 Order name: Magnesium; Complete Time: 02:28 pkl 12/16 22:32 Order name: NT PRO-BNP; Complete Time: 02:28 pkl 12/16 22:32 Order name: PT-INR; Complete Time: 02:28 pkl 12/16 22:32 Order name: Troponin (emerg Dept Use Only); Complete Time: 02:28 pkl 12/16 22:32 Order name: D-Dimer; Complete Time: 02:28 pkl 12/16 22:32 Order name: Basic Metabolic Panel; Complete Time: 02:28 EDMS 12/16 22:33 Order name: Uric Acid; Complete Time: 02:28 pkl 12/16 22:33 Order name: Blood Culture Adult (2) pkl 12/16 22:33 Order name: CRP; Complete Time: 02:28 pkl 12/16 22:33 Order name: Sed Rate; Complete Time: 02:28 pkl 12/16 22:32 Order name: XRAY Chest (1 view) pkl 12/16 22:40 Order name: UPPER EXTREMITY VENOUS UNILATE EDMS 12/16 22:43 Order name: CT Head Brain wo Cont pkl 12/16 23:41 Order name: Lactate; Complete Time: 02:28 pkl 12/17 00:49 Order name: CBC Smear Scan; Complete Time: 05:02 EDMS 12/17 03:42 Order name: SARS-COV-2 RT PCR; Complete Time: 05:02 EDMS 12/17 05:32 Order name: Basic Metabolic Panel EDMS 12/17 05:32 Order name: Basic Metabolic Panel EDMS 12/17 05:32 Order name: CBC with Automated Diff EDMS 12/17 05:32 Order name: CBC with Automated Diff EDMS 12/17 10:02 Order name: RAD EDMS 12/17 10:04 Order name: RAD EDMS 12/16 22:32 Order name: EKG; Complete Time: 22:33 pkl 12/16 22:32 Order name: Cardiac monitoring; Complete Time: 23:40 pkl 12/16 22:32 Order name: EKG - Nurse/Tech; Complete Time: 23:40 pkl 12/16 22:32 Order name: IV Saline Lock; Complete Time: 00:27 pkl 12/16 22:32 Order name: Labs collected and sent; Complete Time: 00:27 pkl 12/16 22:32 Order name: O2 Per Protocol; Complete Time: 23:40 pkl 12/16 22:32 Order name: O2 Sat Monitoring; Complete Time: 23:40 pkl 12/17 05:32 Order name: Regular EDMS Administered Medications: 00:45 Drug: NS 0.9% 1000 ml Route: IV; Rate: 100 ml/hr; Site: left forearm; jb4 00:45 Drug: Zofran (Ondansetron) 4 mg Route: IVP; Site: left forearm; jb4 01:15 Follow up: Response: No adverse reaction; Marked relief of symptoms jb4 00:45 Drug: Lopressor (metoprolol) 5 mg Route: IVP; Site: left forearm; jb4 01:28 Drug: Lopressor (metoprolol) 5 mg Route: IVP; Site: left forearm; jb4 01:35 Drug: Lopressor (metoprolol) 5 mg Route: IVP; Site: left forearm; jb4 02:00 Follow up: Response: No adverse reaction; Marked relief of symptoms jb4 02:30 Drug: hydrALAZINE 20 mg Route: IVP; Site: left forearm; jb4 03:00 Follow up: Response: No adverse reaction; Marked relief of symptoms jb4 03:04 Drug: Phenergan (promethazine) 12.5 mg Route: IVP; Site: left hand; ea 03:30 Follow up: Response: No adverse reaction; Marked relief of symptoms jb4 03:33 Drug: vancoMYCIN 1 grams Route: IVPB; Infused Over: 2 hrs; Site: left forearm; jb4 03:33 Drug: Magnesium Sulfate 1 grams Route: IVPB; Infused Over: 1 hrs; Site: left forearm; jb4 04:33 Follow up: Response: No adverse reaction; IV Status: Completed infusion; IV Intake: jb4 100ml Disposition Summary: 12/17/20 05:10 Hospitalization Ordered Hospitalization Status: Inpatient Admission pkl Provider: Casa Morton pkl Condition: Stable pkl Problem: new pkl Symptoms: are unchanged pkl Bed/Room Type: Standard pkl Location: Telemetry/MedSurg (Inpatient)(12/17/20 14:17) bd Room Assignment: 211(12/17/20 14:17) bd Diagnosis - Cellulitis right hand and forearm. Persistent vomiting. Uncontrolled pkl hypertension Forms: - Medication Reconciliation Form pkl - SBAR form pkl Signatures: Dispatcher [employer] EDMS Renetta Wilburn Pin, MD MD pkl Michelle Reaves RN RN cg Bryson, James, RN RN jb4 Daria Zamora RN RN ea Corrections: (The following items were deleted from the chart) 12/16 22:40 22:39 Extremity Venous Uni Ltd+US.RAD.BRZ ordered. EDKY EDKY 12/17 02:43 12/16 22:39 CORONAVIRUS+MR.LAB.BRZ ordered. EDKY EDKY 12/17 05:20 05:10 Telemetry/MedSurg (Inpatient) pkl cg 05:20 05:10 pkl cg 14:17 05:20 BR ER HOLD cg bd 14:17 05:20 ERHOLD- cg bd
[2020-12-17] MEDS ORDERED: MORPHINE 2 MG/ML SYR IV PRN (05:22)
[2020-12-17] MEDS ORDERED: VANCOMYCIN/NS 1 gm 1 GM/250 ML BAG IVPB SCH (05:30)
[2020-12-17] MEDS ORDERED: NA CHLORIDE 0.9% 1,000 ML IV SCH (06:00)
[2020-12-17] MEDS ORDERED: PIPER/TAZO/NS 3.375gm 3.375 GM/100 ML BAG IVPB ONE (06:15)
[2020-12-17] MEDS ORDERED: VANCOMYCIN 500 MG in NA CHLORIDE 0.9% 100 ML IVPB ONE (06:45)
[2020-12-17] MEDS ORDERED: VANCOMYCIN 0.5 GM in NA CHLORIDE 0.9% 100 ML IVPB ONE (06:45)
[2020-12-17 07:25] VITALS: BMI 27.6
--- NOTE | 2020-12-17 07:31 | RAD REPORT ---
EXAM DESCRIPTION: US - UPPER EXTREMITY VENOUS UNILATE - 12/17/2020 12:06 am CLINICAL HISTORY: Right arm pain COMPARISON: None. TECHNIQUE: Real-time sonographic evaluation of the right upper extremity venous system was performed . FINDINGS: Normal compressibility, flow augmentation, phasic flow and spontaneous flow is identified in the right upper extremity venous system. No intraluminal filling defects seen. IMPRESSION: No DVT in the right upper extremity.
--- NOTE | 2020-12-17 07:35 | RAD REPORT ---
EXAM DESCRIPTION: RAD - Chest Single View - 12/16/2020 11:00 pm CLINICAL HISTORY: severe hypertension COMPARISON: Chest Single View dated 03/18/2020; Chest Single View dated 02/01/2020; Chest Single View dated 09/06/2019; Chest Single View dated 05/31/2019 FINDINGS: Lines: None. Lungs: No evidence of edema or pneumonia. Pleural: No significant pleural effusions or pneumothorax. Cardiac: Mild cardiomegaly. Atherosclerosis. Bones: No acute fractures. Other: IMPRESSION: No acute cardiopulmonary disease.
[2020-12-17] MEDS: NA CHLORIDE 0.9% 1,000 ML IV SCH (08:24)
--- NOTE | 2020-12-17 10:02 | RAD REPORT ---
EXAM DESCRIPTION: RAD - Forearm Right - 12/17/2020 9:23 am CLINICAL HISTORY: pain COMPARISON: No comparisons FINDINGS: No acute fracture. No malalignment. Spurring along the olecranon. Chondrocalcinosis at the elbow. IMPRESSION: No acute osseous abnormality involving the right forearm.
--- NOTE | 2020-12-17 10:04 | RAD REPORT ---
EXAM DESCRIPTION: RAD - Wrist Right 2 View - 12/17/2020 9:23 am CLINICAL HISTORY: pain, COMPARISON: No comparisons FINDINGS: No acute fracture. No malalignment. Radiocarpal joint space narrowing. Chondrocalcinosis o f the TFCC. Degenerative changes involving the lunate. IMPRESSION: No acute osseous abnormality involving the right hand.
[2020-12-17] MEDS ORDERED: cloNIDine HCL 0.1 MG TAB PO ONE (10:13)
[2020-12-17] MEDS ORDERED: cloNIDine HCL 0.1 MG TAB ONE ×2 (10:35→13:31)
--- NOTE | 2020-12-17 10:55 | EKG ---
Test Date: 2020-12-16 Test Time: 22:41:50 Surface Ship Usw Supervisor: TEOFILO MEASUREMENT RESULTS: Intervals: Rate: 97 MI: 132 QRSD: 106 QT: 402 QTc: 510 [place]: P: MI: 132 QRS: -48 T: 85 INTERPRETIVE STATEMENTS: Sinus rhythm with premature atrial complexes Left axis deviation Incomplete right bundle branch block Voltage criteria for left ventricular hypertrophy Anteroseptal infarct, age undetermined ST & T wave abnormality, consider lateral ischemia Prolonged QT Abnormal ECG Possible ischemia now present Prolonged QT interval now present Sinus tachycardia no longer present Right bundle-branch block no longer present Early repolarization no longer present Electronically Signed On 12-17-20 10:53:57 CDT by Renaldo Mcleod
[2020-12-17] MEDS ORDERED: PIPER/TAZO/NS 3.375gm 3.375 GM/100 ML BAG ONE (10:58)
--- NOTE | 2020-12-17 12:07 | RAD REPORT ---
EXAM DESCRIPTION: CT - Head Brain Wo Cont - 12/17/2020 6:18 am CLINICAL HISTORY: The patient is 80 years old and is Female; severe hypertension TECHNIQUE: Axial computed tomography images of the head/brain without intravenous contrast. Sagitt al and coronal reformatted images were created and reviewed. This CT exam was performed using one o r more of the following dose reduction techniques: automated exposure control, adjustment of the mA and/or kV according to patient size, and/or use of iterative reconstruction technique. COMPARISON: CT head November 28, 2020. FINDINGS: Brain: Mild cerebral atrophy. Mild nonspecific white matter changes likely related to chronic microvascular ischemic disea se. No hemorrhage. Ventricles: Mild ventricular prominence. Bones/joints: Unremarkable. No acute fracture. Soft tissues: Unremarkable. Vasculature: Basilar aneurysm coiling with related artifact. Sinuses: Unremarkable as visualized. Mastoid air cells: Unremarkable as visualized. No mastoid effusion. IMPRESSION: No acute intracranial abnormality. Electronically signed by: Benjamin Miller MD 12/16/2020 11:33 PM CDT Due to temporary technical issues with the PACS/Fluency reporting system, reports are being signed by the in house radiologist without review as a courtesy to ensure prompt reporting. The interpreting r adiologist is fully responsible for the content of the report.
[2020-12-17] MEDS: cloNIDine HCL 0.1 MG TAB PO PRN ×2 (13:04→15:57)
--- NOTE | 2020-12-17 13:12 | P.HP ---
Certification for Inpatient Patient admitted to: Inpatient With expected LOS: >2 Midnights Practitioner: I am a practitioner with admitting privileges, knowledge of patient current condition, hospital course, and medical plan of care. Services: Services provided to patient in accordance with Admission requirements found in Title 42 Section 412.3 of the Code of Federal Regulations Patient History Date of Service: 12/17/20 Reason for admission: R ARM SWELLING AND PAIN. History of Present Illness: HAS MANY MEDICAL ISSUES, HTN, CAD WITH DM. PVD, HISTORY OF VERTEBRAL MALAIKA RY ANEURYSM. GRADUALLY SHE HAS BEEN DEBILITATED AND WC BOUND. SHE HAS PAIN IN R SIDE FORARM ADN WRIST AND SWELLING. SHE HAS VOMITED OVER LAST TWO DAYS. HER WBC COUNT IS 22K. Allergies codeine phosphate [From Tylenol-Codeine #3] Allergy (Mild, Verified 09/07/19 03:31) Rash morphine Allergy (Mild, Verified 09/07/19 03:31) Hives/Rash acetaminophen [From Darvocet-N 100] Allergy (Verified 09/07/19 03:31) Rash codeine Allergy (Verified 09/07/19 03:31) Rash meperidine HCl [From Demerol] Allergy (Verified 09/07/19 03:31) Unknown propoxyphene napsylate [From Darvocet-N 100] Allergy (Verified 09/07/19 03:31) Nausea/Vomiting BACLOFEN Allergy (Severe, Uncoded 09/07/19 03:31) Unknown Hydrocodone-Acetaminophen Allergy (Severe, Uncoded 09/07/19 03:31) Itching/Hives/Rash Tape Allergy (Severe, Uncoded 09/07/19 03:31) Rash plastic Allergy (Uncoded 09/07/19 03:31) Unknown Home Medications: Allopurinol 100 mg PO [id number] 02/01/20 Atorvastatin Calcium [Lipitor] 80 mg PO [id number] 02/01/20 Hydralazine HCl [Apresoline] 100 mg PO TID PRN 02/01/20 Levothyroxine [Synthroid] 50 mcg PO [id number] 02/01/20 Melatonin 10 mg PO BEDTIME 02/01/20 Amlodipine Besylate 5 mg PO DAILY 12/17/20 Clonidine HCl [Clonidine HCl ER] 1 tab PO TID 12/17/20 Gabapentin [Neurontin*] 100 mg PO DAILY 12/17/20 Losartan Potassium 100 mg PO DAILY 12/17/20 Metoprolol Tartrate 100 mg PO BID 12/17/20 - Past Medical/Surgical History Has patient received pneumonia vaccine in the past: Yes Diabetic: Yes -: hypertension -: hyperlipidemia -: hypothyroid -: gout -: appendectomy -: cholecystectomy -: DVT L leg 30 yrs ago -: DM 2019 oral/diet controlled -: strokes 05/2018 -: mesh "in the middle of her head" anurysm -: neck stents bilat -: jaqueline -: appe -: knee surg x2 -: wrist surg x3 -: surg on chin, not sure what it was -: L Knee replacement -: appendectomy -: Cholecystectomy - Family History Brother -: Heart disease, Hypertension, Diabetes, Liver disease, Kidney disease Father -: Lung disease Mother -: Heart disease, Hypertension, Blood disorders - Social History Smoking Status: Unknown if ever smoked Alcohol use: No CD- Drugs: No Caffeine use: Yes Review of Systems 10-point ROS is otherwise unremarkable General: Weakness, Malaise Physical Examination - Vital Signs Blood Pressure: 176/66 Pulse: 92 Respirations: 17 Pulse Ox (%): 93 - Physical Exam General: Oriented x3, Moderate distress, Obese HEENT: Atraumatic, PERRLA, Mucous membr. moist/pink, EOMI, Sclerae nonicteric Neck: Supple, 2+ carotid pulse no bruit, No LAD, Without JVD or thyroid abnormality Respiratory: Clear to auscultation bilaterally, Normal air movement Cardiovascular: Regular rate/rhythm, Normal S1 S2 Gastrointestinal: Normal bowel sounds, No tenderness Musculoskeletal: No tenderness Integumentary: Tenderness/swelling (R FOREARM. WRIST MOD TO SEVERE.) Neurological: Normal gait, Normal speech, Normal strength at 5/5 x4 extr, Normal tone, Normal affect Lymphatics: No axilla or inguinal lymphadenopathy - Studies Laboratory Data (last 24 hrs) 12/17/20 00:25: PT 14.2 H, INR 1.23 12/17/20 00:25: WBC 22.50 H*, Hgb 12.0, Hct 38.0, Plt Count 307 12/17/20 00:25: Sodium 140, Potassium 3.7, BUN 21 H, Creatinine 1.27, Glucose 170 H, Uric Acid 5.3, Magnesium 1.6 L, Total Bilirubin 0.7, AST 27, ALT 22, Alkaline Phosphatase 202 H Assessment and Plan - Problems (Diagnosis) (1) Cellulitis of arm, right Current Visit: Yes Status: Acute Plan: R SIDE PAIN SEVERE. CELLULITIS SEEMS MRSA IN CHARACTER AGREE WITH VANCOMYCIN WILL CHANGE TO ORAL ABX WHEN CAN. (2) Atrial fibrillation Current Visit: No Status: Chronic (3) CKD stage 3 due to type 2 diabetes mellitus Current Visit: No Status: Chronic (4) Diabetes Current Visit: No Status: Chronic Plan: CONTINUE MEDS. FU SLIDING SCALE. Qualifiers: Diabetes mellitus type: type 2 Diabetes mellitus complication status: with circulatory complication - Advance Directives Does patient have a Living Will: Yes Does patient have a Durable POA for Healthcare: No
[2020-12-17] MEDS ORDERED: PIPER/TAZO/NS 3.375gm 3.375 GM/100 ML BAG IVPB SCH ×3 (14:00→17:00)
[2020-12-17] MEDS: cloNIDine HCL 0.1 MG TAB PO SCH ×3 (14:00→19:58)
[2020-12-17] MEDS: ENOXAPARIN 30 MG/0.3 ML SQ SCH (16:00)
[2020-12-17] MEDS: METOPROLOL TAR 50 MG TAB PO SCH (19:55)
[2020-12-17] MEDS: MELATONIN 5 MG TABLET PO SCH (19:58)
[2020-12-18] MEDS: NA CHLORIDE 0.9% 1,000 ML IV SCH (04:24)
[2020-12-18] MEDS: ATORVASTATIN 80 MG TAB PO SCH (05:41)
[2020-12-18] MEDS: LEVOTHYROXINE SOD 0.05 MG TABLET PO SCH (05:41)
[2020-12-18] MEDS: allopurinoL 100 MG TAB PO SCH (05:41)
[2020-12-18] MEDS: cloNIDine HCL 0.1 MG TAB PO PRN (05:48)
[2020-12-18 05:59] LABS: Absolute Lymphocytes (CBC) 0.7 K/uL (0.7-4.9); Basophils % 0.3 % (0-1.3); Hematocrit 27.8 % (36.0-45.0); Lymphocytes % 4.9 % (15.3-44.8); MPV 8.8 fL (7.6-11.3); RBC Red Blood Cell Count 3.25 M/uL (3.86-4.86)
[2020-12-18 06:04] LABS: Potassium 3.3 mmol/L (3.5-5.1)
[2020-12-18] MEDS: TRAMADOL HCL 50 MG TAB PO PRN ×3 (06:48→22:12)
[2020-12-18] MEDS ORDERED: POTASSIUM CL SA 10 MEQ TAB PO ONE ×2 (08:06→08:51)
[2020-12-18] MEDS: METOPROLOL TAR 50 MG TAB PO SCH ×2 (08:19→21:29)
[2020-12-18] MEDS: LOSARTAN POTASSIUM 50 MG TABLET PO SCH (08:20)
[2020-12-18] MEDS: cloNIDine HCL 0.1 MG TAB PO SCH ×3 (08:20→21:30)
[2020-12-18] MEDS: GABAPENTIN 100 MG CAP PO SCH (08:21)
[2020-12-18] MEDS: NACHLORIDE 0.45% 1,000 ML IV SCH ×2 (08:30→21:26)
[2020-12-18] MEDS ORDERED: NACHLORIDE 0.45% 1,000 ML IV ONE (08:53)
[2020-12-18] MEDS ORDERED: AMLODIPINE 5 MG TAB PO SCH (09:00)
[2020-12-18] MEDS: HYDRALAZINE HCL 25 MG TABLET PO PRN (11:48)
--- NOTE | 2020-12-18 13:08 | P.PN ---
Subjective Date of Service: 12/18/20 Chief Complaint: R ARM SWELLING AND PAIN. Subjective: Improving HER PAIN IN HAND AND FOREARM IS BETTER BUT ELBOW IS PAINFUL NOW. Physical Examination - Vital Signs Temperature: 98.5 F Blood Pressure: 173/62 Pulse: 62 Respirations: 18 Pulse Ox (%): 96 - Physical Exam General: Oriented x3, Moderate distress, Obese HEENT: Atraumatic, PERRLA, EOMI Neck: Supple, JVD not distended Respiratory: Clear to auscultation bilaterally, Normal air movement Cardiovascular: Regular rate/rhythm, Normal S1 S2, Edema Gastrointestinal: Normal bowel sounds, No tenderness Musculoskeletal: No tenderness, Other Integumentary: No rashes, Warmth (IMPROVED ON THE R SIDE.) Neurological: Normal speech, Normal tone, Normal affect Lymphatics: No axilla or inguinal lymphadenopathy - Studies Microbiology Data (last 24 hrs): 12/17/20 00:25 Blood - Blood Anaerobic Blood Culture - Final 12/17/20 00:05 Blood - Blood Anaerobic Blood Culture - Final Medications List Reviewed: Yes Assessment And Plan - Current Problems (Diagnosis) (1) Cellulitis of arm, right Current Visit: Yes Status: Acute Plan: R SIDE PAIN SEVERE. CELLULITIS SEEMS MRSA IN CHARACTER AGREE WITH VANCOMYCIN WILL CHANGE TO ORAL ABX WHEN CAN. STOP ZOSYN SHE IS ALLERGIC TO PCN. (2) Atrial fibrillation Current Visit: No Status: Chronic (3) CKD stage 3 due to type 2 diabetes mellitus Current Visit: No Status: Chronic (4) Diabetes Current Visit: No Status: Chronic Plan: CONTINUE MEDS. FU SLIDING SCALE. Qualifiers: Diabetes mellitus type: type 2 Diabetes mellitus complication status: with circulatory complication (5) Dehydration Current Visit: Yes Status: Acute Plan: RAISE IV FLUIDS AND CHANGE TO HALF NS. REPLACE K AND MAG.
[2020-12-18] MEDS: VANCOMYCIN 1.25 GM in NA CHLORIDE 0.9% 250 ML IVPB SCH (14:30)
[2020-12-18] MEDS: ENOXAPARIN 30 MG/0.3 ML SQ SCH (16:00)
[2020-12-18] MEDS ORDERED: VANCOMYCIN 1.5 GM in NA CHLORIDE 0.9% 500 ML IVPB SCH (20:00)
[2020-12-18] MEDS: MAGNESIUM OXIDE 400 MG TAB PO SCH (21:00)
[2020-12-18] MEDS: MELATONIN 5 MG TABLET PO SCH (21:30)
[2020-12-19] MEDS: NACHLORIDE 0.45% 1,000 ML IV SCH (01:18)
[2020-12-19] MEDS: HYDRALAZINE HCL 25 MG TABLET PO PRN (01:19)
[2020-12-19] MEDS: LEVOTHYROXINE SOD 0.05 MG TABLET PO SCH (05:14)
[2020-12-19] MEDS: allopurinoL 100 MG TAB PO SCH (05:14)
[2020-12-19] MEDS: ATORVASTATIN 80 MG TAB PO SCH (05:14)
[2020-12-19 08:27] LABS: Absolute Lymphocytes (CBC) 0.8 K/uL (0.7-4.9); Basophils % 0.3 % (0-1.3); Hematocrit 28.8 % (36.0-45.0); MPV 8.9 fL (7.6-11.3); RBC Red Blood Cell Count 3.38 M/uL (3.86-4.86)
[2020-12-19] MEDS: MAGNESIUM OXIDE 400 MG TAB PO SCH ×2 (09:42→21:00)
[2020-12-19] MEDS: GABAPENTIN 100 MG CAP PO SCH (09:42)
[2020-12-19] MEDS: LOSARTAN POTASSIUM 50 MG TABLET PO SCH (09:42)
[2020-12-19] MEDS: METOPROLOL TAR 50 MG TAB PO SCH ×2 (09:43→21:00)
[2020-12-19] MEDS: ONDANSETRON 4 MG/2 ML VIAL IV PRN (09:43)
[2020-12-19] MEDS: cloNIDine HCL 0.1 MG TAB PO SCH ×3 (09:43→21:00)
[2020-12-19] MEDS: ENOXAPARIN 30 MG/0.3 ML SQ SCH (17:08)
[2020-12-19] MEDS: MELATONIN 5 MG TABLET PO SCH (21:00)
--- NOTE | 2020-12-19 21:20 | P.PN ---
Subjective Date of Service: 12/19/20 Chief Complaint: R ARM SWELLING AND PAIN. Subjective: Improving HER PAIN IN HAND AND FOREARM IS BETTER BUT ELBOW IS PAINFUL NOW. HER ELBOW PAIN IS THERE FOREARM PAIN IS LOT BETTER. HAND AND FOREARM SWELLING IS LOT BETTER. Physical Examination - Vital Signs Temperature: 99 F Blood Pressure: 170/72 Pulse: 61 Respirations: 19 Pulse Ox (%): 95 - Physical Exam General: Oriented x3, Mild distress, Moderate distress, Obese HEENT: Atraumatic, PERRLA, EOMI Neck: Supple, JVD not distended Respiratory: Clear to auscultation bilaterally, Normal air movement Cardiovascular: Regular rate/rhythm, Normal S1 S2, Edema (R FOREARM. AND ELBOW.) Gastrointestinal: Normal bowel sounds, No tenderness Musculoskeletal: No tenderness Integumentary: No rashes Neurological: Normal speech, Normal tone, Normal affect Lymphatics: No axilla or inguinal lymphadenopathy - Studies Medications List Reviewed: Yes Assessment And Plan - Current Problems (Diagnosis) (1) Cellulitis of arm, right Current Visit: Yes Status: Acute Plan: R SIDE PAIN SEVERE. CELLULITIS SEEMS MRSA IN CHARACTER AGREE WITH VANCOMYCIN WILL CHANGE TO ORAL ABX WHEN CAN. STOP ZOSYN SHE IS ALLERGIC TO PCN. (2) Atrial fibrillation Current Visit: No Status: Chronic (3) CKD stage 3 due to type 2 diabetes mellitus Current Visit: No Status: Chronic (4) Diabetes Current Visit: No Status: Chronic Plan: CONTINUE MEDS. FU SLIDING SCALE. Qualifiers: Diabetes mellitus type: type 2 Diabetes mellitus complication status: with circulatory complication (5) Dehydration Current Visit: Yes Status: Acute Plan: RAISE IV FLUIDS AND CHANGE TO HALF NS. REPLACE K AND MAG. (6) Swelling of right elbow Current Visit: Yes Status: Acute Plan: THIS CAN BE GOUT OR PSEUDOGOUT. COLCHICINE TRIAL. URIC ACID IS LOW AT 5.3.
[2020-12-19] MEDS ORDERED: NACHLORIDE 0.45% 1,000 ML IV SCH (22:00)
[2020-12-20 02:33] LABS: Absolute Lymphocytes (CBC) 0.7 K/uL (0.7-4.9); Basophils % 0.4 % (0-1.3); Hematocrit 27.7 % (36.0-45.0); Lymphocytes % 6.3 % (15.3-44.8); MPV 9.2 fL (7.6-11.3); RBC Red Blood Cell Count 3.22 M/uL (3.86-4.86)
[2020-12-20 02:57] LABS: Magnesium 1.7 mg/dL (1.8-2.4); Potassium 4.3 mmol/L (3.5-5.1)
[2020-12-20] MEDS: VANCOMYCIN 1.25 GM in NA CHLORIDE 0.9% 250 ML IVPB SCH (03:00)
[2020-12-20] MEDS ORDERED: MAGNESIUM SULFATE 1 gm IVPB 1 GM/100 ML BAG IV ONE (03:15)
[2020-12-20] MEDS: ATORVASTATIN 80 MG TAB PO SCH (06:00)
[2020-12-20] MEDS: LEVOTHYROXINE SOD 0.05 MG TABLET PO SCH (06:00)
[2020-12-20] MEDS: allopurinoL 100 MG TAB PO SCH (06:00)
[2020-12-20] MEDS: HYDRALAZINE HCL 25 MG TABLET PO SCH ×3 (08:59→20:44)
[2020-12-20] MEDS: Meropenem 500 MG/100 ML BAG IV SCH ×2 (09:00→22:14)
[2020-12-20] MEDS: LOSARTAN POTASSIUM 50 MG TABLET PO SCH (09:00)
[2020-12-20] MEDS: METOPROLOL TAR 50 MG TAB PO SCH ×2 (09:00→20:44)
[2020-12-20] MEDS: cloNIDine HCL 0.1 MG TAB PO SCH ×4 (09:00→20:45)
[2020-12-20] MEDS ORDERED: COLCHICINE 0.6 MG TAB PO SCH (09:00)
[2020-12-20] MEDS: MAGNESIUM OXIDE 400 MG TAB PO SCH ×2 (09:00→20:45)
[2020-12-20] MEDS: GABAPENTIN 100 MG CAP PO SCH (09:02)
[2020-12-20] MEDS: TRAMADOL HCL 50 MG TAB PO PRN ×2 (09:04→20:41)
[2020-12-20] MEDS: NACHLORIDE 0.45% 1,000 ML IV SCH ×2 (14:26→20:46)
--- NOTE | 2020-12-20 14:31 | P.PN ---
Subjective Date of Service: 12/20/20 Chief Complaint: R ARM SWELLING AND PAIN. Subjective: No new changes HER PAIN IN HAND AND FOREARM IS BETTER BUT ELBOW IS PAINFUL NOW. HER ELBOW PAIN IS THERE FOREARM PAIN IS LOT BETTER. HAND AND FOREARM SWELLING IS LOT BETTER. FOR TWO DAYS SHE IMPROVED A LITTLE BUT STILL HAS 7/10 PAIN AND MORE SO ON MOVEMENT OF ELBOW AND WRIST, OR JUST PRESSING ON THEM. Review of Systems 10-point ROS is otherwise unremarkable General: Weakness, Malaise Musculoskeletal: As per HPI Integumentary: As per HPI Physical Examination - Vital Signs Temperature: 99.3 F Blood Pressure: 148/52 Pulse: 63 Respirations: 18 Pulse Ox (%): 97 - Physical Exam General: Oriented x3, Moderate distress HEENT: Atraumatic, PERRLA, EOMI Neck: Supple, JVD not distended Respiratory: Clear to auscultation bilaterally, Normal air movement Cardiovascular: Regular rate/rhythm, Normal S1 S2 Gastrointestinal: Normal bowel sounds, No tenderness Musculoskeletal: Tenderness (R ELBOW AND R FOREARM. SEVERE WHEN PRESSURE. TEMPERATURE OF THE WHOLE ARE BELOW ELBOW AND ELBOW IS HIGHER. NO FOCAL FLUCTUATION.), Warmth Integumentary: No rashes Neurological: Normal speech, Normal tone, Normal affect Lymphatics: No axilla or inguinal lymphadenopathy - Studies Medications List Reviewed: Yes Assessment And Plan - Current Problems (Diagnosis) (1) Cellulitis of arm, right Current Visit: Yes Status: Acute Plan: R SIDE PAIN SEVERE. CELLULITIS SEEMS MRSA IN CHARACTER AGREE WITH VANCOMYCIN WILL CHANGE TO ORAL ABX WHEN CAN. STOP ZOSYN SHE IS ALLERGIC TO PCN. START MERREM VANCOMYCIN ALONE IS FAILING TO CONTROL THIS SEVERE CELLULITES. (2) Atrial fibrillation Current Visit: No Status: Chronic (3) CKD stage 3 due to type 2 diabetes mellitus Current Visit: No Status: Chronic (4) Diabetes Current Visit: No Status: Chronic Plan: CONTINUE MEDS. FU SLIDING SCALE. Qualifiers: Diabetes mellitus type: type 2 Diabetes mellitus complication status: with circulatory complication (5) Dehydration Current Visit: Yes Status: Acute Plan: RAISE IV FLUIDS AND CHANGE TO HALF NS. REPLACE K AND MAG. CREATININE IS RISING. I WILL RAISE THE FLUIDS AGAIN. FU DAILY LAB. SHE HAS RETENTION OF URINE. JIMÉNEZ HAS BEEN REINSERTED THIS WILL HELP. (6) Swelling of right elbow Current Visit: Yes Status: Acute Plan: THIS CAN BE GOUT OR PSEUDOGOUT. COLCHICINE TRIAL. URIC ACID IS LOW AT 5.3.
[2020-12-20] MEDS: ENOXAPARIN 30 MG/0.3 ML SQ SCH (17:54)
--- NOTE | 2020-12-20 17:54 | RAD REPORT ---
EXAM DESCRIPTION: RAD - Chest Single View - 12/20/2020 5:20 pm CLINICAL HISTORY: PICC line placement COMPARISON: December 16 FINDINGS: Portable chest was obtained following placement of a left upper extremity PICC line. The c atheter tip is in the mid SVC.
[2020-12-20] MEDS: ONDANSETRON 4 MG/2 ML VIAL IV PRN (20:38)
[2020-12-20] MEDS: MELATONIN 5 MG TABLET PO SCH (20:44)
[2020-12-21] MEDS: TRAMADOL HCL 50 MG TAB PO PRN ×2 (05:30→21:10)
[2020-12-21] MEDS: LEVOTHYROXINE SOD 0.05 MG TABLET PO SCH (05:30)
[2020-12-21] MEDS: allopurinoL 100 MG TAB PO SCH (05:30)
[2020-12-21] MEDS: ATORVASTATIN 80 MG TAB PO SCH (05:30)
[2020-12-21 06:01] LABS: Absolute Lymphocytes (CBC) 0.8 K/uL (0.7-4.9); Basophils % 0.2 % (0-1.3); Hematocrit 27.8 % (36.0-45.0); Lymphocytes % 6.4 % (15.3-44.8); MPV 9.2 fL (7.6-11.3); RBC Red Blood Cell Count 3.23 M/uL (3.86-4.86)
[2020-12-21 06:07] LABS: Potassium 4.7 mmol/L (3.5-5.1)
[2020-12-21] MEDS: NACHLORIDE 0.45% 1,000 ML IV SCH ×2 (07:06→10:35)
[2020-12-21] MEDS: MAGNESIUM OXIDE 400 MG TAB PO SCH ×2 (09:00→21:00)
[2020-12-21] MEDS: HYDRALAZINE HCL 25 MG TABLET PO SCH ×3 (09:17→21:10)
[2020-12-21] MEDS: cloNIDine HCL 0.1 MG TAB PO SCH ×3 (09:17→21:56)
[2020-12-21] MEDS: METOPROLOL TAR 50 MG TAB PO SCH ×2 (09:18→21:09)
[2020-12-21] MEDS: GABAPENTIN 100 MG CAP PO SCH (09:18)
[2020-12-21] MEDS: Meropenem 500 MG/100 ML BAG IV SCH ×2 (09:19→21:11)
[2020-12-21] MEDS: ONDANSETRON 4 MG/2 ML VIAL IV PRN (09:27)
[2020-12-21] MEDS: VANCOMYCIN 1.25 GM in NA CHLORIDE 0.9% 250 ML IVPB SCH (16:41)
[2020-12-21] MEDS: ENOXAPARIN 30 MG/0.3 ML SQ SCH (16:42)
--- NOTE | 2020-12-21 17:04 | P.PN ---
Subjective Date of Service: 12/21/20 Chief Complaint: R ARM SWELLING AND PAIN. Subjective: Improving TODAY AFTER ADDING MERREM WITHIN A DAY SHE SAYS THE PAIN WAS NOT BAD LAST NIGHT. Review of Systems 10-point ROS is otherwise unremarkable General: Weakness Musculoskeletal: As per HPI Physical Examination - Vital Signs Temperature: 98.9 F Blood Pressure: 129/59 Pulse: 56 Respirations: 17 Pulse Ox (%): 94 - Physical Exam General: Oriented x3, Mild distress, Moderate distress, Obese HEENT: Atraumatic, PERRLA, EOMI Neck: Supple, JVD not distended Respiratory: Clear to auscultation bilaterally, Normal air movement Cardiovascular: Regular rate/rhythm, Normal S1 S2 Gastrointestinal: Normal bowel sounds, No tenderness Musculoskeletal: No tenderness Integumentary: No rashes, Other (TENDERNESS IS MODERATE NOW, LOT BETTER THAN DAY BEFORE. MAINLY R FOREARM AND ELBOW.) Neurological: Normal speech, Normal tone, Normal affect Lymphatics: No axilla or inguinal lymphadenopathy - Studies Medications List Reviewed: Yes Assessment And Plan - Current Problems (Diagnosis) (1) Cellulitis of arm, right Current Visit: Yes Status: Acute Plan: R SIDE PAIN SEVERE. CELLULITIS SEEMS MRSA IN CHARACTER AGREE WITH VANCOMYCIN WILL CHANGE TO ORAL ABX WHEN CAN. STOP ZOSYN SHE IS ALLERGIC TO PCN. START MERREM VANCOMYCIN ALONE IS FAILING TO CONTROL THIS SEVERE CELLULITES. IMPROVED AFTER MERREM. CONTINUE ABX. THERE IS NO CULTURE TO HELP NARROW DOWN ABX. PICC LINE HAS BEEN PLACED. ONCE STABLE. NH THIS WEEK. (2) Atrial fibrillation Current Visit: No Status: Chronic (3) CKD stage 3 due to type 2 diabetes mellitus Current Visit: No Status: Chronic (4) Diabetes Current Visit: No Status: Chronic Plan: CONTINUE MEDS. FU SLIDING SCALE. Qualifiers: Diabetes mellitus type: type 2 Diabetes mellitus complication status: with circulatory complication (5) Dehydration Current Visit: Yes Status: Acute Plan: RAISE IV FLUIDS AND CHANGE TO HALF NS. REPLACE K AND MAG. CREATININE IS RISING. I WILL RAISE THE FLUIDS AGAIN. FU DAILY LAB. SHE HAS RETENTION OF URINE. JIMÉNEZ HAS BEEN REINSERTED THIS WILL HELP. (6) Swelling of right elbow Current Visit: Yes Status: Acute Plan: THIS CAN BE GOUT OR PSEUDOGOUT. COLCHICINE TRIAL. URIC ACID IS LOW AT 5.3. (7) CKD (chronic kidney disease) Current Visit: Yes Status: Chronic Plan: MULTIFACTORIAL. DEHYDRATION, POST VOID RESIDUAL ELEVATION AND MEDS. CONTINUE IV FLUIDS. START FLOMAX TO HELP REDUCE BLADDER OUTLET OBSTRUCTION. (8) Debility Current Visit: Yes Status: Chronic Plan: NEEDS PT. NH WILL PROVIDE. (9) HTN (hypertension), benign Current Visit: Yes Status: Chronic Plan: RAISED CLONIDINE STOPPED LOSARTAN TO SEE IF CREAT IMPROVES SOME. AVOID NORVASC- EDEMA. AVOID ACEI- CREAT GOES UP. ALREADY ON HIGH DOSE OF HYDRLALAZINE AND METOPROLOL.
[2020-12-21] MEDS: MELATONIN 5 MG TABLET PO SCH (21:56)
[2020-12-22] MEDS: NACHLORIDE 0.45% 1,000 ML IV SCH ×4 (00:16→21:53)
[2020-12-22 04:45] LABS: Absolute Lymphocytes (CBC) 0.9 K/uL (0.7-4.9); Basophils % 0.4 % (0-1.3); Hematocrit 28.3 % (36.0-45.0); Lymphocytes % 6.6 % (15.3-44.8); MPV 8.9 fL (7.6-11.3)
[2020-12-22 05:13] LABS: C-Reactive Protein 73.5 mg/L (<3.00); Potassium 4.7 mmol/L (3.5-5.1)
[2020-12-22] MEDS: allopurinoL 100 MG TAB PO SCH (05:58)
[2020-12-22] MEDS: ATORVASTATIN 80 MG TAB PO SCH (05:58)
[2020-12-22] MEDS: LEVOTHYROXINE SOD 0.05 MG TABLET PO SCH (05:58)
[2020-12-22] MEDS: TRAMADOL HCL 50 MG TAB PO PRN (08:02)
[2020-12-22] MEDS: GABAPENTIN 100 MG CAP PO SCH (08:02)
[2020-12-22] MEDS: cloNIDine HCL 0.1 MG TAB PO SCH ×3 (08:02→21:54)
[2020-12-22] MEDS: METOPROLOL TAR 50 MG TAB PO SCH ×2 (08:02→21:55)
[2020-12-22] MEDS: MAGNESIUM OXIDE 400 MG TAB PO SCH ×2 (08:02→21:00)
[2020-12-22] MEDS: HYDRALAZINE HCL 25 MG TABLET PO SCH ×3 (08:02→21:54)
[2020-12-22] MEDS: Meropenem 500 MG/100 ML BAG IV SCH ×2 (08:04→21:56)
[2020-12-22] MEDS: ENOXAPARIN 30 MG/0.3 ML SQ SCH (17:10)
[2020-12-22] MEDS: ONDANSETRON 4 MG/2 ML VIAL IV PRN (19:23)
[2020-12-22] MEDS: MELATONIN 5 MG TABLET PO SCH (21:56)
[2020-12-23 04:16] LABS: Absolute Lymphocytes (CBC) 0.9 K/uL (0.7-4.9); Basophils % 0.7 % (0-1.3); Hematocrit 27.7 % (36.0-45.0); Lymphocytes % 7.2 % (15.3-44.8); MPV 8.7 fL (7.6-11.3); RBC Red Blood Cell Count 3.24 M/uL (3.86-4.86)
[2020-12-23 04:36] LABS: C-Reactive Protein 40.4 mg/L (<3.00); Magnesium 1.9 mg/dL (1.8-2.4)
[2020-12-23] MEDS: allopurinoL 100 MG TAB PO SCH (05:07)
[2020-12-23] MEDS: ATORVASTATIN 80 MG TAB PO SCH (05:07)
[2020-12-23] MEDS: LEVOTHYROXINE SOD 0.05 MG TABLET PO SCH (05:08)
[2020-12-23] MEDS: METOPROLOL TAR 50 MG TAB PO SCH ×2 (08:33→20:13)
[2020-12-23] MEDS: HYDRALAZINE HCL 25 MG TABLET PO SCH ×3 (08:34→20:10)
[2020-12-23] MEDS: cloNIDine HCL 0.1 MG TAB PO SCH ×3 (08:34→20:12)
[2020-12-23] MEDS: GABAPENTIN 100 MG CAP PO SCH (08:34)
[2020-12-23] MEDS: NACHLORIDE 0.45% 1,000 ML IV SCH ×2 (08:35→20:09)
[2020-12-23] MEDS: MAGNESIUM OXIDE 400 MG TAB PO SCH ×2 (08:35→20:12)
[2020-12-23] MEDS: Meropenem 500 MG/100 ML BAG IV SCH ×2 (08:35→20:10)
--- NOTE | 2020-12-23 14:39 | RAD REPORT ---
EXAM DESCRIPTION: CT - Hand Right Wo Con - 12/23/2020 2:24 pm CLINICAL HISTORY: right hand pain/swelling COMPARISON: Wrist Right 2 View dated 12/17/2020 TECHNIQUE: Oblique axial image of the right hand was performed. Sagittal and coronal reformatted tona ges were generated and reviewed. All CT scans are performed using dose optimization technique as appropriate and may include automate d exposure control or mA/KV adjustment according to patient size. FINDINGS: No fracture is identified in the bones of the hand nor the distal most radius and ulna. No dislocation or periosteal reaction. There are no pathologic or destructive bony changes seen. Degene rative calcifications are seen in the triangular fibrocartilage. Small calcifications are present milagro ng the ventral margin of the scaphoid. These may be small ossicles or degenerative calcifications. No injury to the scaphoid is discernible. No air or foreign body seen in the soft tissues. No hematoma, mass, abscess or other soft tissue find ing identifiable. Subcutaneous fatty soft tissues do appear mildly edematous. IMPRESSION: Mild soft tissue edema is identifiable without an abscess, mass or focal soft tissue fin ding. No osteomyelitis, fracture or other acute bony finding.
--- NOTE | 2020-12-23 14:45 | RAD REPORT ---
EXAM DESCRIPTION: CT - Shoulder Right Wo Cont - 12/23/2020 2:24 pm CLINICAL HISTORY: right shoulder pain/swelling COMPARISON: Chest Single View dated 12/20/2020; Shoulder Right 2 View dated 10/29/2020 TECHNIQUE: Axial 3 millimeter thick images of the right shoulder obtained with coronal and sagittal reconstruction images generated and reviewed. All CT scans are performed using dose optimization technique as appropriate and may include automate d exposure control or mA/KV adjustment according to patient size. FINDINGS: No fracture, dislocation or periosteal reaction. No pathologic or destructive process of t he shoulder joint identifiable. Degenerative calcifications are present in the glenoid labrum. Calcif ications are present within the subscapularis tendon attachment to the humerus. AC joint degenerative changes are present. There is capsular hypertrophy along the superior margin with inferiorly directe d clavicle and acromion spurs contacting the supraspinatus musculotendinous junction. Faint calcifica tions are present in the supraspinatus tendon. Skeletal musculature surrounding the shoulder joint shows no mass or hematoma. Subcutaneous fatty tis sues and skin are unremarkable as well. IMPRESSION: Posttraumatic or degenerative calcific tendinosis involves the supraspinatus and subscap ularis tendons. These could be a source for pain. AC joint degenerative change with capsular hypertrophy and inferiorly directed bone spurring contacti ng the supraspinatus musculotendinous junction. No acute or pathologic bone or soft tissue process identifiable.
[2020-12-23] MEDS: ENOXAPARIN 30 MG/0.3 ML SQ SCH (17:16)
--- NOTE | 2020-12-23 17:52 | P.PN ---
Subjective Date of Service: 12/23/20 Chief Complaint: R ARM SWELLING AND PAIN. Subjective: Improving TODAY AFTER ADDING MERREM WITHIN A DAY SHE SAYS THE PAIN WAS NOT BAD LAST NIGHT. SHE SAYS SHE IS BETTER TODAY BUT PAIN AND LACK OF MOBILITY BECAUSE OF PAIN CONTINUES. SHE FIRST TIME TOLD ME THAT GETTING OUT OF BED HER R ARM DID GET STUCK INTO THE RAILINGS AT HOME AND SHE FELL ON R SIDE. Physical Examination - Vital Signs Temperature: 97.6 F Blood Pressure: 140/66 Pulse: 54 Respirations: 18 Pulse Ox (%): 92 - Physical Exam General: Oriented x3, Moderate distress, Obese HEENT: Atraumatic, PERRLA, EOMI Neck: Supple, JVD not distended Respiratory: Clear to auscultation bilaterally, Normal air movement Cardiovascular: Regular rate/rhythm, Normal S1 S2 Gastrointestinal: Normal bowel sounds, No tenderness Musculoskeletal: Swelling (R SHOULDER. R HAND. TENDER BUT LOT BETTER THAN BEFORE. STILL SIGNFICANTLY PAINFUL.) Integumentary: No rashes Neurological: Normal speech, Normal tone, Normal affect Lymphatics: No axilla or inguinal lymphadenopathy - Studies Medications List Reviewed: Yes Assessment And Plan - Current Problems (Diagnosis) (1) Cellulitis of arm, right Current Visit: Yes Status: Acute Plan: R SIDE PAIN SEVERE. CELLULITIS SEEMS MRSA IN CHARACTER AGREE WITH VANCOMYCIN WILL CHANGE TO ORAL ABX WHEN CAN. STOP ZOSYN SHE IS ALLERGIC TO PCN. START MERREM VANCOMYCIN ALONE IS FAILING TO CONTROL THIS SEVERE CELLULITES. IMPROVED AFTER MERREM. CONTINUE ABX. THERE IS NO CULTURE TO HELP NARROW DOWN ABX. PICC LINE HAS BEEN PLACED. ONCE STABLE. NH THIS WEEK. WBC AND CRP ARE LOWER. ONLY MEREM FOR NOW. AWAIT NH. (2) Atrial fibrillation Current Visit: No Status: Chronic (3) CKD stage 3 due to type 2 diabetes mellitus Current Visit: No Status: Chronic (4) Diabetes Current Visit: No Status: Chronic Plan: CONTINUE MEDS. FU SLIDING SCALE. Qualifiers: Diabetes mellitus type: type 2 Diabetes mellitus complication status: with circulatory complication (5) Dehydration Current Visit: Yes Status: Acute Plan: RAISE IV FLUIDS AND CHANGE TO HALF NS. REPLACE K AND MAG. CREATININE IS RISING. I WILL RAISE THE FLUIDS AGAIN. FU DAILY LAB. SHE HAS RETENTION OF URINE. JIMÉNEZ HAS BEEN REINSERTED THIS WILL HELP. (6) Swelling of right elbow Current Visit: Yes Status: Acute Plan: THIS CAN BE GOUT OR PSEUDOGOUT. COLCHICINE TRIAL. URIC ACID IS LOW AT 5.3. (7) CKD (chronic kidney disease) Current Visit: Yes Status: Chronic Plan: MULTIFACTORIAL. DEHYDRATION, POST VOID RESIDUAL ELEVATION AND MEDS. CONTINUE IV FLUIDS. START FLOMAX TO HELP REDUCE BLADDER OUTLET OBSTRUCTION. CREAT IS LOWER THAN BEFORE. (8) Debility Current Visit: Yes Status: Chronic Plan: NEEDS PT. NH WILL PROVIDE. (9) HTN (hypertension), benign Current Visit: Yes Status: Chronic Plan: RAISED CLONIDINE STOPPED LOSARTAN TO SEE IF CREAT IMPROVES SOME. AVOID NORVASC- EDEMA. AVOID ACEI- CREAT GOES UP. ALREADY ON HIGH DOSE OF HYDRLALAZINE AND METOPROLOL.
--- NOTE | 2020-12-23 19:16 | CON ---
Date of Consultation: 12/23/2020 History Of Present Illness: I have seen this patient in the past, however, for a different problem. Apparently, by her history, she began having pain in her right wrist a few weeks ago. She attribute d this to playing cards. She specifically denies any trauma or fall. Apparently, she had increasing pain and redness. She was admitted to the hospital under the care of her primary care physician. Emmanuelle sarabia attempted to obtain a consult from me at that time; however, unfortunately, I was out of state and the other physician who was in consult unfortunately was unavailable as well. I am seeing her as kandice ckly as I can. On review of her laboratories, she did have a high CRP and sed rate. Also according to the nurse as well as the patient, she had significant redness, which she says began in her wrist. She now says that she has swelling and pain in her hand, wrist, elbow going up into her shoulder. T here is no significant redness at this time. Movement of the fingers causes pain. Also, she has pieter n with palpation of the shoulder, elbow, and basically throughout the right upper extremity. She den ies any neck pain or radicular symptoms. It is neurovascularly intact. There was no sign of an open injury. At this time, there does not appear to be much cellulitis, although she does have edema of the right upper extremity in the region of the olecranon as well as throughout the right upper extrem ity. Most likely, this is from dependency. I did not see any fluid collection, which may be amenabl e to operative intervention or draining. 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 She does have a history of gout. My understanding is that she is making some clinical improvement. She says today is her best today. She is currentl y getting IV antibiotics from PICC line and appears to be improving. Assessment: The exact etiology of her problem of right upper extremity is uncertain. She does have significant swelling of the right upper extremity as well as diffuse pain. The swelling appears to b e mostly related to dependency. She does not have any pain with gentle motion of any of the joints. Pain is mostly with palpation. There is no lymphadenopathy detected in the axilla or in the supratr ochlear region. Again, it is uncertain. She has been treated with antibiotics and appears to be titi ing clinical improvement. I will speak with Dr. Morton. She has been instructed on range of motion o f the hand and wrist. Also, we will discuss with Dr. Morton the possibility of a wrist brace. There was consideration as well of possibility of further imaging, but most likely we will have her continu e to watch this clinically. /FREDDY Voice ID: [id number] Report ID: [id number]
[2020-12-23] MEDS: MELATONIN 5 MG TABLET PO SCH (20:11)
[2020-12-23] MEDS: TAMSULOSIN 0.4 MG SR CAP PO SCH (20:14)
[2020-12-23] MEDS ORDERED: ACETAMINOPHEN 500 MG TAB PO PRN (21:54)
[2020-12-24] MEDS: NACHLORIDE 0.45% 1,000 ML IV SCH ×2 (05:06→11:14)
[2020-12-24] MEDS: LEVOTHYROXINE SOD 0.05 MG TABLET PO SCH (05:39)
[2020-12-24] MEDS: ATORVASTATIN 80 MG TAB PO SCH (05:39)
[2020-12-24] MEDS: allopurinoL 100 MG TAB PO SCH (05:39)
[2020-12-24 07:14] LABS: Absolute Lymphocytes (CBC) 1.3 K/uL (0.7-4.9); Basophils % 0.4 % (0-1.3); Hematocrit 30.4 % (36.0-45.0); Lymphocytes % 10.9 % (15.3-44.8); MPV 8.9 fL (7.6-11.3); RBC Red Blood Cell Count 3.53 M/uL (3.86-4.86)
[2020-12-24 07:24] LABS: C-Reactive Protein 24.4 mg/L (<3.00); Magnesium 2.2 mg/dL (1.8-2.4); Potassium 4.3 mmol/L (3.5-5.1)
[2020-12-24] MEDS: cloNIDine HCL 0.1 MG TAB PO SCH ×3 (09:24→20:43)
[2020-12-24] MEDS: GABAPENTIN 100 MG CAP PO SCH (09:24)
[2020-12-24] MEDS: METOPROLOL TAR 50 MG TAB PO SCH ×2 (09:24→20:44)
[2020-12-24] MEDS: Meropenem 500 MG/100 ML BAG IV SCH ×2 (09:24→20:45)
[2020-12-24] MEDS: MAGNESIUM OXIDE 400 MG TAB PO SCH ×2 (09:25→20:43)
[2020-12-24] MEDS: HYDRALAZINE HCL 25 MG TABLET PO SCH ×3 (09:25→20:43)
[2020-12-24] MEDS: ENOXAPARIN 30 MG/0.3 ML SQ SCH (16:57)
--- NOTE | 2020-12-24 18:19 | P.PN ---
Subjective Date of Service: 12/24/20 Chief Complaint: R ARM SWELLING AND PAIN. Subjective: Improving TODAY AFTER ADDING MERREM WITHIN A DAY SHE SAYS THE PAIN WAS NOT BAD LAST NIGHT. SHE SAYS SHE IS BETTER TODAY BUT PAIN AND LACK OF MOBILITY BECAUSE OF PAIN CONTINUES. SHE FIRST TIME TOLD ME THAT GETTING OUT OF BED HER R ARM DID GET STUCK INTO THE RAILINGS AT HOME AND SHE FELL ON R SIDE. HER PAIN HAS SIGNIFICANTLY IMPROVED NOW. SHE IS ABLE TO LIFT HER HAND UP ABOUT 20 DEGREES NOW. Physical Examination - Vital Signs Temperature: 97.8 F Blood Pressure: 157/67 Pulse: 54 Respirations: 18 Pulse Ox (%): 93 - Physical Exam General: Oriented x3, Mild distress, Moderate distress, Obese HEENT: Atraumatic, PERRLA, EOMI Neck: Supple, JVD not distended Respiratory: Clear to auscultation bilaterally, Normal air movement Cardiovascular: Regular rate/rhythm, Normal S1 S2 Gastrointestinal: Normal bowel sounds, No tenderness Musculoskeletal: No tenderness Integumentary: No rashes Neurological: Normal speech, Normal tone, Normal affect Lymphatics: No axilla or inguinal lymphadenopathy - Studies Medications List Reviewed: Yes Assessment And Plan - Current Problems (Diagnosis) (1) Cellulitis of arm, right Current Visit: Yes Status: Acute Plan: R SIDE PAIN SEVERE. CELLULITIS SEEMS MRSA IN CHARACTER AGREE WITH VANCOMYCIN WILL CHANGE TO ORAL ABX WHEN CAN. STOP ZOSYN SHE IS ALLERGIC TO PCN. START MERREM VANCOMYCIN ALONE IS FAILING TO CONTROL THIS SEVERE CELLULITES. IMPROVED AFTER MERREM. CONTINUE ABX. THERE IS NO CULTURE TO HELP NARROW DOWN ABX. PICC LINE HAS BEEN PLACED. ONCE STABLE. [place] THIS WEEK. WBC AND CRP ARE LOWER. ONLY MEREM FOR NOW. AWAIT NH. CONT MERREM TO [place] WHEN WE CAN. (2) Atrial fibrillation Current Visit: No Status: Chronic (3) CKD stage 3 due to type 2 diabetes mellitus Current Visit: No Status: Chronic (4) Diabetes Current Visit: No Status: Chronic Plan: CONTINUE MEDS. FU SLIDING SCALE. Qualifiers: Diabetes mellitus type: type 2 Diabetes mellitus complication status: with circulatory complication (5) Dehydration Current Visit: Yes Status: Acute Plan: RAISE IV FLUIDS AND CHANGE TO HALF NS. REPLACE K AND MAG. CREATININE IS RISING. I WILL RAISE THE FLUIDS AGAIN. FU DAILY LAB. SHE HAS RETENTION OF URINE. JIMÉNEZ HAS BEEN REINSERTED THIS WILL HELP. (6) Swelling of right elbow Current Visit: Yes Status: Acute Plan: THIS CAN BE GOUT OR PSEUDOGOUT. COLCHICINE TRIAL. URIC ACID IS LOW AT 5.3. (7) CKD (chronic kidney disease) Current Visit: Yes Status: Chronic Plan: MULTIFACTORIAL. DEHYDRATION, POST VOID RESIDUAL ELEVATION AND MEDS. CONTINUE IV FLUIDS. START FLOMAX TO HELP REDUCE BLADDER OUTLET OBSTRUCTION. CREAT IS LOWER THAN BEFORE. (8) Debility Current Visit: Yes Status: Chronic Plan: NEEDS PT. NH WILL PROVIDE. (9) HTN (hypertension), benign Current Visit: Yes Status: Chronic Plan: RAISED CLONIDINE STOPPED LOSARTAN TO SEE IF CREAT IMPROVES SOME. AVOID NORVASC- EDEMA. AVOID ACEI- CREAT GOES UP. ALREADY ON HIGH DOSE OF HYDRLALAZINE AND METOPROLOL.
[2020-12-24] MEDS: TAMSULOSIN 0.4 MG SR CAP PO SCH (20:42)
[2020-12-24] MEDS: MELATONIN 5 MG TABLET PO SCH (20:43)
[2020-12-25] MEDS: NACHLORIDE 0.45% 1,000 ML IV SCH ×4 (01:06→17:44)
[2020-12-25] MEDS: LEVOTHYROXINE SOD 0.05 MG TABLET PO SCH (05:36)
[2020-12-25] MEDS: ATORVASTATIN 80 MG TAB PO SCH (05:36)
[2020-12-25] MEDS: allopurinoL 100 MG TAB PO SCH (05:36)
[2020-12-25 05:41] LABS: Absolute Lymphocytes (CBC) 1.1 K/uL (0.7-4.9); Basophils % 0.3 % (0-1.3); Hematocrit 26.9 % (36.0-45.0); Lymphocytes % 10.5 % (15.3-44.8); MPV 8.5 fL (7.6-11.3); RBC Red Blood Cell Count 3.15 M/uL (3.86-4.86)
[2020-12-25 05:56] LABS: Potassium 4.3 mmol/L (3.5-5.1)
[2020-12-25 05:57] LABS: C-Reactive Protein 12.8 mg/L (<3.00); Magnesium 2.2 mg/dL (1.8-2.4)
[2020-12-25 07:29] LABS: Blood Morphology Comment NOT SEEN (NOT SEEN); Platelet Estimate ADEQ
[2020-12-25] MEDS: Meropenem 500 MG/100 ML BAG IV SCH ×2 (08:01→20:40)
[2020-12-25] MEDS: cloNIDine HCL 0.1 MG TAB PO SCH ×3 (08:02→20:10)
[2020-12-25] MEDS: METOPROLOL TAR 50 MG TAB PO SCH ×2 (08:02→20:09)
[2020-12-25] MEDS: HYDRALAZINE HCL 25 MG TABLET PO SCH ×3 (08:02→20:08)
[2020-12-25] MEDS: MAGNESIUM OXIDE 400 MG TAB PO SCH ×2 (08:03→20:07)
[2020-12-25] MEDS: GABAPENTIN 100 MG CAP PO SCH (08:03)
[2020-12-25] MEDS: ENOXAPARIN 30 MG/0.3 ML SQ SCH (17:24)
--- NOTE | 2020-12-25 17:44 | P.PN ---
Subjective Date of Service: 12/25/20 Chief Complaint: R ARM SWELLING AND PAIN. Subjective: Improving TODAY AFTER ADDING MERREM WITHIN A DAY SHE SAYS THE PAIN WAS NOT BAD LAST NIGHT. SHE SAYS SHE IS BETTER TODAY BUT PAIN AND LACK OF MOBILITY BECAUSE OF PAIN CONTINUES. SHE FIRST TIME TOLD ME THAT GETTING OUT OF BED HER R ARM DID GET STUCK INTO THE RAILINGS AT HOME AND SHE FELL ON R SIDE. HER PAIN HAS SIGNIFICANTLY IMPROVED NOW. SHE IS ABLE TO LIFT HER HAND UP ABOUT 20 DEGREES NOW. SHE FEELS LOT RUBÉN AFTER BEING ON MERREM FOR A FEW DAYS. VANCOMYCIN DID NOT WORK. Physical Examination - Vital Signs Temperature: 97.8 F Blood Pressure: 154/69 Pulse: 57 Respirations: 18 Pulse Ox (%): 94 - Physical Exam General: Oriented x3, Mild distress, Obese HEENT: Atraumatic, PERRLA, EOMI Neck: Supple, JVD not distended Respiratory: Clear to auscultation bilaterally, Normal air movement Cardiovascular: Regular rate/rhythm, Normal S1 S2 Gastrointestinal: Normal bowel sounds, No tenderness Musculoskeletal: No tenderness, Other (HAND, ELBOW AND SHOULDER TENDERNESS ARE IMPROVING. ) Integumentary: No rashes Neurological: Normal speech, Normal tone, Normal affect Lymphatics: No axilla or inguinal lymphadenopathy - Studies Medications List Reviewed: Yes Assessment And Plan - Current Problems (Diagnosis) (1) Cellulitis of arm, right Current Visit: Yes Status: Acute Plan: R SIDE PAIN SEVERE. CELLULITIS SEEMS MRSA IN CHARACTER AGREE WITH VANCOMYCIN WILL CHANGE TO ORAL ABX WHEN CAN. STOP ZOSYN SHE IS ALLERGIC TO PCN. START MERREM VANCOMYCIN ALONE IS FAILING TO CONTROL THIS SEVERE CELLULITES. IMPROVED AFTER MERREM. CONTINUE ABX. THERE IS NO CULTURE TO HELP NARROW DOWN ABX. PICC LINE HAS BEEN PLACED. ONCE STABLE. [place] THIS WEEK. WBC AND CRP ARE LOWER. ONLY MEREM FOR NOW. AWAIT NH. CONT MERREM TO [place] WHEN WE CAN. [place] AWIATED. STABLE FOR NOW. (2) Atrial fibrillation Current Visit: No Status: Chronic (3) CKD stage 3 due to type 2 diabetes mellitus Current Visit: No Status: Chronic (4) Diabetes Current Visit: No Status: Chronic Plan: CONTINUE MEDS. FU SLIDING SCALE. Qualifiers: Diabetes mellitus type: type 2 Diabetes mellitus complication status: with circulatory complication (5) Dehydration Current Visit: Yes Status: Acute Plan: RAISE IV FLUIDS AND CHANGE TO HALF NS. REPLACE K AND MAG. CREATININE IS RISING. I WILL RAISE THE FLUIDS AGAIN. FU DAILY LAB. SHE HAS RETENTION OF URINE. JIMÉNEZ HAS BEEN REINSERTED THIS WILL HELP. CREAT DOWN TO 1.6. (6) Swelling of right elbow Current Visit: Yes Status: Acute Plan: THIS CAN BE GOUT OR PSEUDOGOUT. COLCHICINE TRIAL. URIC ACID IS LOW AT 5.3. (7) CKD (chronic kidney disease) Current Visit: Yes Status: Chronic Plan: MULTIFACTORIAL. DEHYDRATION, POST VOID RESIDUAL ELEVATION AND MEDS. CONTINUE IV FLUIDS. START FLOMAX TO HELP REDUCE BLADDER OUTLET OBSTRUCTION. CREAT IS LOWER THAN BEFORE. (8) Debility Current Visit: Yes Status: Chronic Plan: NEEDS PT. NH WILL PROVIDE. (9) HTN (hypertension), benign Current Visit: Yes Status: Chronic Plan: RAISED CLONIDINE STOPPED LOSARTAN TO SEE IF CREAT IMPROVES SOME. AVOID NORVASC- EDEMA. AVOID ACEI- CREAT GOES UP. ALREADY ON HIGH DOSE OF HYDRLALAZINE AND METOPROLOL.
[2020-12-25] MEDS: GLUCERNA SHAKE 237 ML CAN PO SCH (20:04)
[2020-12-25] MEDS: TAMSULOSIN 0.4 MG SR CAP PO SCH (20:07)
[2020-12-25] MEDS ORDERED: MELATONIN 5 MG TABLET PO ONE (21:51)
[2020-12-25] MEDS: MELATONIN 5 MG TABLET PO SCH (22:02)
[2020-12-26] MEDS: cloNIDine HCL 0.1 MG TAB PO PRN ×2 (02:16→05:39)
[2020-12-26 05:02] LABS: Absolute Lymphocytes (CBC) 1.2 K/uL (0.7-4.9); Basophils % 0.6 % (0-1.3); Hematocrit 28.1 % (36.0-45.0); Lymphocytes % 9.9 % (15.3-44.8); MPV 8.2 fL (7.6-11.3); RBC Red Blood Cell Count 3.28 M/uL (3.86-4.86)
[2020-12-26 05:17] LABS: C-Reactive Protein 9.14 mg/L (<3.00); Potassium 4.3 mmol/L (3.5-5.1)
[2020-12-26] MEDS: allopurinoL 100 MG TAB PO SCH (05:39)
[2020-12-26] MEDS: ATORVASTATIN 80 MG TAB PO SCH (05:39)
[2020-12-26] MEDS: LEVOTHYROXINE SOD 0.05 MG TABLET PO SCH (05:40)
[2020-12-26] MEDS: NACHLORIDE 0.45% 1,000 ML IV SCH (05:41)
[2020-12-26] MEDS: GABAPENTIN 100 MG CAP PO SCH (08:00)
[2020-12-26] MEDS: METOPROLOL TAR 50 MG TAB PO SCH ×2 (08:00→20:46)
[2020-12-26] MEDS: HYDRALAZINE HCL 25 MG TABLET PO SCH ×3 (08:00→20:45)
[2020-12-26] MEDS: cloNIDine HCL 0.1 MG TAB PO SCH ×3 (08:00→20:45)
[2020-12-26] MEDS: MAGNESIUM OXIDE 400 MG TAB PO SCH ×2 (08:00→20:47)
[2020-12-26] MEDS: GLUCERNA SHAKE 237 ML CAN PO SCH ×2 (08:01→20:47)
[2020-12-26] MEDS: Meropenem 500 MG/100 ML BAG IV SCH ×2 (08:03→20:48)
--- NOTE | 2020-12-26 13:17 | P.PN ---
Subjective Date of Service: 12/26/20 Chief Complaint: R ARM SWELLING AND PAIN. Subjective: Improving TODAY AFTER ADDING MERREM WITHIN A DAY SHE SAYS THE PAIN WAS NOT BAD LAST NIGHT. SHE SAYS SHE IS BETTER TODAY BUT PAIN AND LACK OF MOBILITY BECAUSE OF PAIN CONTINUES. SHE FIRST TIME TOLD ME THAT GETTING OUT OF BED HER R ARM DID GET STUCK INTO THE RAILINGS AT HOME AND SHE FELL ON R SIDE. HER PAIN HAS SIGNIFICANTLY IMPROVED NOW. SHE IS ABLE TO LIFT HER HAND UP ABOUT 20 DEGREES NOW. SHE FEELS LOT RUBÉN AFTER BEING ON MERREM FOR A FEW DAYS. VANCOMYCIN DID NOT WORK. LOT BETTER. MOVES HER FOREARM AND ARM MUCH MORE NOW. Physical Examination - Vital Signs Temperature: 97.3 F Blood Pressure: 145/65 Pulse: 52 Respirations: 15 Pulse Ox (%): 98 - Physical Exam General: Oriented x3, Mild distress HEENT: Atraumatic, PERRLA, EOMI Neck: Supple, JVD not distended Respiratory: Clear to auscultation bilaterally, Normal air movement Cardiovascular: Regular rate/rhythm, Normal S1 S2 Gastrointestinal: Normal bowel sounds, No tenderness Musculoskeletal: No tenderness Integumentary: No rashes Neurological: Normal speech, Normal tone, Normal affect Lymphatics: No axilla or inguinal lymphadenopathy - Studies Medications List Reviewed: Yes Assessment And Plan - Current Problems (Diagnosis) (1) Cellulitis of arm, right Current Visit: Yes Status: Acute Plan: R SIDE PAIN SEVERE. CELLULITIS SEEMS MRSA IN CHARACTER AGREE WITH VANCOMYCIN WILL CHANGE TO ORAL ABX WHEN CAN. STOP ZOSYN SHE IS ALLERGIC TO PCN. START MERREM VANCOMYCIN ALONE IS FAILING TO CONTROL THIS SEVERE CELLULITES. IMPROVED AFTER MERREM. CONTINUE ABX. THERE IS NO CULTURE TO HELP NARROW DOWN ABX. PICC LINE HAS BEEN PLACED. ONCE STABLE. [place] THIS WEEK. WBC AND CRP ARE LOWER. ONLY MER[place] FOR NOW. AWAIT [place]. CONT [place] TO [place] WHEN WE CAN. [place] AW[place]. STABLE FOR NOW. [facility] HAS LOST POWER FROM THE STORM. SHE WILL HAVE TO STAY HERE UNTIL IT IS RESTORED. (2) Atrial fibrillation Current Visit: No Status: Chronic (3) CKD stage 3 due to type 2 diabetes mellitus Current Visit: No Status: Chronic (4) Diabetes Current Visit: No Status: Chronic Plan: CONTINUE MEDS. FU SLIDING SCALE. Qualifiers: Diabetes mellitus type: type 2 Diabetes mellitus complication status: with circulatory complication (5) Dehydration Current Visit: Yes Status: Acute Plan: RAISE IV FLUIDS AND CHANGE TO HALF NS. REPLACE K AND MAG. CREATININE IS RISING. I WILL RAISE THE FLUIDS AGAIN. FU DAILY LAB. SHE HAS RETENTION OF URINE. JIMÉNEZ HAS BEEN REINSERTED THIS WILL HELP. CREAT DOWN TO 1.6. (6) Swelling of right elbow Current Visit: Yes Status: Acute Plan: THIS CAN BE GOUT OR PSEUDOGOUT. COLCHICINE TRIAL. URIC ACID IS LOW AT 5.3. (7) CKD (chronic kidney disease) Current Visit: Yes Status: Chronic Plan: MULTIFACTORIAL. DEHYDRATION, POST VOID RESIDUAL ELEVATION AND MEDS. CONTINUE IV FLUIDS. START FLOMAX TO HELP REDUCE BLADDER OUTLET OBSTRUCTION. CREAT IS LOWER THAN BEFORE. (8) Debility Current Visit: Yes Status: Chronic Plan: NEEDS PT. NH WILL PROVIDE. (9) HTN (hypertension), benign Current Visit: Yes Status: Chronic Plan: RAISED CLONIDINE STOPPED LOSARTAN TO SEE IF CREAT IMPROVES SOME. AVOID NORVASC- EDEMA. AVOID ACEI- CREAT GOES UP. ALREADY ON HIGH DOSE OF HYDRLALAZINE AND METOPROLOL.
[2020-12-26] MEDS: ENOXAPARIN 30 MG/0.3 ML SQ SCH (17:59)
[2020-12-26] MEDS: MELATONIN 5 MG TABLET PO SCH (20:45)
[2020-12-26] MEDS: TAMSULOSIN 0.4 MG SR CAP PO SCH (20:47)
[2020-12-27] MEDS: LEVOTHYROXINE SOD 0.05 MG TABLET PO SCH (05:18)
[2020-12-27] MEDS: ATORVASTATIN 80 MG TAB PO SCH (05:18)
[2020-12-27] MEDS: allopurinoL 100 MG TAB PO SCH (05:18)
[2020-12-27] MEDS: cloNIDine HCL 0.1 MG TAB PO PRN (06:39)
[2020-12-27] MEDS: GABAPENTIN 100 MG CAP PO SCH (08:43)
[2020-12-27] MEDS: cloNIDine HCL 0.1 MG TAB PO SCH (08:43)
[2020-12-27] MEDS: Meropenem 500 MG/100 ML BAG IV SCH (08:43)
[2020-12-27] MEDS: HYDRALAZINE HCL 25 MG TABLET PO SCH (08:43)
[2020-12-27] MEDS: MAGNESIUM OXIDE 400 MG TAB PO SCH (08:44)
[2020-12-27] MEDS: GLUCERNA SHAKE 237 ML CAN PO SCH (08:44)
[2020-12-27] MEDS: METOPROLOL TAR 50 MG TAB PO SCH (08:44)
--- NOTE | 2020-12-27 08:56 | P.DS ---
Admission Date: 12/17/20 Discharge Date: 12/27/20 Disposition: TRANSFER TO ASSISTED Reason for Admission: R ARM SWELLING AND PAIN. - Problems (1) Cellulitis of arm, right Current Visit: Yes Status: Acute (2) Atrial fibrillation Current Visit: No Status: Chronic (3) CKD stage 3 due to type 2 diabetes mellitus Current Visit: No Status: Chronic (4) Diabetes Current Visit: No Status: Chronic Qualifiers: Diabetes mellitus type: type 2 Diabetes mellitus complication status: with circulatory complication (5) Dehydration Current Visit: Yes Status: Acute (6) Swelling of right elbow Current Visit: Yes Status: Acute (7) CKD (chronic kidney disease) Current Visit: Yes Status: Chronic (8) Debility Current Visit: Yes Status: Chronic (9) HTN (hypertension), benign Current Visit: Yes Status: Chronic Brief History of Present Illness: HAS MANY MEDICAL ISSUES, HTN, CAD WITH DM. PVD, HISTORY OF VERTEBRAL ARTERY ANEURYSM. GRADUALLY SHE HAS BEEN DEBILITATED AND WC BOUND. SHE HAS PAIN IN R SIDE FORARM ADN WRIST AND SWELLING. SHE HAS VOMITED OVER LAST TWO DAYS. HER WBC COUNT IS 22K. Hospital Course: MS BRAVO HAD A COMPLICATED HOSPITAL COURSE ABOVE. SHE IS DEBILITATED LADY WITH DM , COMPLICATIONS, PVD, CAD, CKD, SEVERE DJD. SHE INJURED HER ARM WHILE IT SLID DOWN HER BED AND DEVELOPED SEVERE CELLULITIS. SHE DID NOT GET BETTER WITH VANCOMYCIN AND CEFEPIME. I HAD TO CHANGE TO MERREM AND SINCE THEN HER PAIN, INFLAMMATION , WBC COUNT AND CRP IMPROVED. SHE ALSO HAD ACUTE ON CHRONIC RENAL FAILURE THAT IMPROVED WITH GENTLE HYDRATION AND DISCONTINUATION OF LOSARTAN IN ADDITION TO TAKE CARE OF PVR BY JIMÉNEZ CATHETER. SHE IS STALBLE TO GO TO [place]. Vital Signs/Physical Exam: Temp Pulse Resp BP Pulse Ox 98.3 F 58 14 167/70 H 94 12/27/20 08:00 12/27/20 08:00 12/27/20 08:00 12/27/20 08:44 12/27/20 08:00 Laboratory Data at Discharge: WBC 12.50 K/uL (4.3-10.9) H D 12/26/20 04:41 Hgb 9.1 g/dL (12.0-15.0) L 12/26/20 04:41 Hct 28.1 % (36.0-45.0) L 12/26/20 04:41 Plt Count 294 K/uL (152-406) 12/26/20 04:41 PT 14.2 SECONDS (9.5-12.5) H 12/17/20 00:25 INR 1.23 12/17/20 00:25 Sodium 140 mmol/L (136-145) 12/26/20 04:41 Potassium 4.3 mmol/L (3.5-5.1) 12/26/20 04:41 BUN 34 mg/dL (7-18) H 12/26/20 04:41 Creatinine 1.50 mg/dL (0.55-1.3) H 12/26/20 04:41 Glucose 116 mg/dL (74-106) H 12/26/20 04:41 Uric Acid 5.2 mg/dL (2.6-6.0) 12/19/20 21:52 Magnesium 2.0 mg/dL (1.8-2.4) 12/26/20 04:41 Total Bilirubin 0.7 mg/dL (0.2-1.0) 12/17/20 00:25 AST 27 U/L (15-37) 12/17/20 00:25 ALT 22 U/L (12-78) 12/17/20 00:25 Alkaline Phosphatase 202 U/L (45-117) H 12/17/20 00:25 Home Medications: Allopurinol 100 mg PO [id number] 02/01/20 Atorvastatin Calcium [Lipitor] 80 mg PO [id number] 02/01/20 Hydralazine HCl [Apresoline] 100 mg PO TID PRN 02/01/20 Levothyroxine [Synthroid*] 50 mcg PO [id number] 02/01/20 Melatonin 10 mg PO BEDTIME 02/01/20 Clonidine HCl [Clonidine HCl ER] 1 tab PO TID 12/17/20 Gabapentin [Neurontin*] 100 mg PO DAILY 12/17/20 Metoprolol Tartrate 100 mg PO BID 12/17/20 Tamsulosin [Flomax*] 0.4 mg PO BEDTIME cap 12/27/20 Followup: Casa Morton MD [ACTIVE - CAN ADMIT] - NONE,NONE [Primary Care Provider] -
[2020-12-27 09:42] VITALS: O2SAT 97
[2020-12-27 12:06] LABS: C.diff Antigen/Toxin Ag neg : Tox neg (NEG : NEG)
[2020-12-27 12:16] VITALS: BP 163/68; TEMP 97.4
== END 2020-12-27 13:55 | DRG 603 ==
LOC: ER 21:26 → ERHOLD 12-17 05:43 → 2ND 12-17 15:21
PROVIDERS: ADMIT Internal Medicine; ATTEND Internal Medicine
DX: L03.113 Cellulitis of right upper limb (principal); I48.20 Chronic atrial fibrillation, unspecified; N17.9 Acute kidney failure, unspecified; I12.9 Hypertensive chronic kidney disease with stage 1 through stage 4 chronic kidney disease, or unspecified chronic kidney disease; E11.22 Type 2 diabetes mellitus with diabetic chronic kidney disease; N18.30 Chronic kidney disease, stage 3 unspecified; E86.0 Dehydration; R53.81 Other malaise; E11.51 Type 2 diabetes mellitus with diabetic peripheral angiopathy without gangrene; I25.10 Atherosclerotic heart disease of native coronary artery without angina pectoris; M19.90 Unspecified osteoarthritis, unspecified site; R33.9 Retention of urine, unspecified; M10.9 Gout, unspecified; Z86.73 Personal history of transient ischemic attack (TIA), and cerebral infarction without residual deficits; Z96.652 Presence of left artificial knee joint; Z86.718 Personal history of other venous thrombosis and embolism; Z20.822 Contact with and (suspected) exposure to COVID-19; Z99.3 Dependence on wheelchair
CPT/HCPCS: 36415; 36569; 51702; 70450; 71045; 73200; 80048; 80076; 80202; 83605; 83735; 83880; 84484; 84550; 85025; 85379; 85610; 85652; 86140; 87040; 87324; 87449; 93005; 93971; 97110; 97116; 97161; 97530; 99285; J0360; J1650; J2185; J2405; J2543; J2550; J3370; J3475; J7030; J7050; U0003

== ENCOUNTER 2021-03-31 15:07 | Emergency (ER) | payer OTHER ==
--- OUTSIDE RECORDS SUMMARY | 2021-03-31 15:33 | XMS REPORT | Continuity of Care Document ---
:1940 Author Organization [facility] t Address [address] [place] [place] [address] Care Team Providers Name Role Phone Aaron Morton Primary Care Physician Doctor Unassigned, Name Attending Clinician Unavailable Anna CM, A Attending Clinician Unavailable Cal DOHERTY Attending Clinician Debra DOHERTY Attending Clinician Portillo Jimenez DO Attending Clinician Semaj Horne MD Attending Clinician Darius DOHERTY Attending Clinician Janay Ye MD Attending Clinician Jose Reaves MD Attending Clinician Lionel Kwok MD Attending Clinician India Carrasco MD Attending Clinician LEX Attending Clinician Unavailable Unknown Attending Clinician Unavailable Adrian CM, M Attending Clinician Unavailable Mandi Red Attending Clinician Unavailable Umang ROSE Attending Clinician Unavailable Pob, Lab Main Attending Clinician Unavailable [facility] Attending Clinician Unavailable Umang Guerra Attending Clinician Vls-Lab Attending Clinician Unavailable Only, Test Attending Clinician Unavailable Tracey Wild MD Attending Clinician Maico DOHERTY Attending Clinician Only, Bls Test Attending Clinician Unavailable Draw, Lab Attending Clinician Unavailable INDIA CARRASCO Attending Clinician Unavailable DALE FLORES Attending Clinician Unavailable Jose REAVES Admitting Clinician Unavailable Debra DOHERTY Admitting Clinician Jose Reaves MD Admitting Clinician India Carrasco MD Admitting Clinician Tracey Wild MD Admitting Clinician SHALONDA Admitting Clinician Unavailable INDIA CARRASCO Admitting Clinician Unavailable Payers Payer Name Policy Type Policy Number Effective Date Expiration Date S ource [employer] MEDICARE [id number] 2017 ERS 00:00:00 [employer] MEDICARE [id number] 2018 ADV 00:00:00 Problems Condition Condition Condition Status Onset Resolution Last Treating Co mments Source Name Details Category Date Date Treatment Clinician Date Hypoglycem Hypoglycem Disease Active U nivers ia ia 1-16 ity of 00:00: [place] [facility] UTI UTI Disease Active Univers (urinary (urinary 1-16 ity of tract tract 00:00: [place] infection) infection) 00 Me dical Branch Joint Joint Disease Active Univers effusion effusion 1-02 ity of of knee of knee 00:00: [place] 00 Medical Branch Systemic Systemic Disease Active 2020- Unive rs inflammato inflammato 2-17 it y of ry ry 00:00: [place] response response 00 Medica l syndrome syndrome Branch Hypertensi Hypertensi Disease Active 2020- U nivers ve urgency ve urgency 2-16 it y of 00:00: [place] 00 Medical Branch Leukocytos Leukocytos Disease Active 2020 U nivers is is 2-14 ity of 00:00: [place] 00 Medical Branch Acute Acute Disease Active 2020 Overview: Univer s anemia anemia 2-14 Added ity of 00:00: automatic 00 ally from Medical request Branch for surgery [id number] Melena Melena Disease Active 2020 Overview: Univer s 2-14 Added ity of 00:00: automatic 00 ally from Medical request Branch for surgery [id number] Vertebral Vertebral Disease Active 2020- Uni vers artery artery 0-13 ity of stenosis stenosis 00:00: [place] 00 Medical Branch S/P S/P Disease Active 2020-0 Univers aneurysm aneurysm 8-11 ity of repair repair 00:00: [place] [address] Medical Branch Acute Acute Disease Active 2020-[address] [facility] blood loss blood loss 2-11 [facility] - anemia anemia 00:00: Medical 00 [place] Gout flare Gout flare Disease Active 2020-[address] [facility] 00:[facility]: Medical [place] COPD COPD Disease Active 2020-[address] [facility] (chronic (chronic 2-11 [facility] - obstructiv obstructiv 00:00: Me dical e e 00 Center pulmonary pulmonary disease) disease) Gastroesop Gastroesop Disease Active 2020-[address] hageal hageal 2-11 [facility] - reflux reflux 00:00: Medical disease disease 00 [place] with with esophagiti esophagiti s s HLD HLD Disease Active 2020-[address] [facility] (hyperlipi (hyperlipi 2-11 [facility] kes - demia) demia) 00:00: Medical 00 [place] Hypothyroi Hypothyroi Disease Active 2020-[address] dism dism 2-11 [facility] - 00:00: Medical 00 [place] Coagulopat Coagulopat Disease Active 2020-[address] hy hy 2-11 [facility] - 00:00: Medical 00 [place] 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 00:00: Medica l 00 [place] Cerebral Cerebral Disease Active 2020-0 [facility] hypoperfus hypoperfus 2-05 [facility] - ion ion 00:00: Medical 00 [place] Hypertensi Hypertensi Disease Active 2020-[address] ve crisis ve crisis 2-05 [facility] - 00:00: Medical 00 Center Atrial Atrial Disease Active 2020-[address] [facility] fibrillati fibrillati 2-04 [facility] - on on 00:00: Medical 00 Center Hypertensi Hypertensi Disease Active 2020-[address] on on 2-04 [facility] - 00:[facility]: Medical 00 Center Carotid Carotid Disease Active 2020-[address] [facility] stenosis, stenosis, 2-04 [facility] - left left 00:00: Medical 00 [place] Acute Acute Disease Active 2020-[address] [facility] ischemic ischemic 2-03 [facility] - stroke stroke 00:00: Medical 00 [place] RUE RUE Disease Active 2020-[address] [facility] weakness weakness 2-02 [facility] - 00:00: Medical [place] Post-op Post-op Disease Active 2015-04 Univers pain pain 2-21 ity of 00:00: [place] 00 Medical Branch Allergies, Adverse Reactions, Alerts Allergy Allergy Status Severity Reaction(s) Onset Inactive Treating Comm ents Source Name Type Date Date Clinician CEFTRIAX DRUG Active High Rash 2020-1 Univers ONE INGREDI 2-21 ity of 00:00: [place] 00 Medical Branch PENICILL DRUG Active High Rash 2020- Univers IN INGREDI 2-21 ity of 00:00: [place] [address] Medical Branch Penicill Drug Active Rash 2020-1 AGEP Univers in Allergy 2-21 ity of 00:00: [place] 00 Medical Branch Ceftriax Drug Active Rash 2020-1 AGEP Univers one Allergy 2-21 ity of 00:00: [place] 00 [facility] Branch SILICONE DRUG Active Med Rash 2020-1 Univers INGREDI 2-17 ity of 00:00: [place] 00 Medical Branch PIPERACI DRUG Active High Rash 2020-1 Univers LLIN-ALEKSANDR 2-17 ity of OBACTAM 00:00: [place] 00 [facility] Branch Piperaci Drug Active Rash 2020-1 AGEP Univers llin-Aleksandr Allergy 2-17 ity of obactam 00:00: [place] 00 [facility] Branch Meperidi Propensi Active Nausea And 2020-[address] [facility] ty to Vomiting 2-05 daughter [facility] - adverse 00:00: Medical reaction 00 Center s MEPERIDI Allergy Active N\\T\\V 2020-[address] [facility] NE 2-05 [facility] - 00:00: Medical 00 [place] Amlodipi Propensi Active 2018- [facility] ne ty to 2-19 [facility] - adverse 00:00: Medical reaction 00 Center s Hydrocod Propensi Active 2019- [facility] one-Acet ty to 2-19 [facility] - aminophe adverse 00:00: Medical n reaction 00 Center s Morphine Propensi Active 2019- [facility] ty to 2-19 [facility] - adverse 00:00: Medical reaction 00 Center s AMLODIPI Allergy Active 2019- [facility] NE 2-19 [facility] - 00:00: Medical 00 Center HYDROCOD Allergy Active 2019- [facility] ONE-ACET 2-19 [facility] - AMINOPHE 00:00: Medical N 00 Center MORPHINE Allergy Active 2019- [facility] 2-19 [facility] - 00:00: Medical 00 Center Baclofen Propensi Active Other (See [address] ty to Comments) 2-25 [facility] - adverse 00:00: Medical reaction 00 Center s BACLOFEN Allergy Active High Other 2016-[address] [facility] [facility] 2-25 [facility] - 00:00: Medical 00 Center PROPOXYP Allergy Active N\\T\\V 2016-[address] [facility] [facility] HENE 2-25 [facility] - NAPSYLAT 00:00: Medical E 00 Center Propoxyp Propensi Active Nausea And [address] hene ty to Vomiting 2-25 [facility] - Napsylat adverse 00:00: Medical e reaction 00 Center s Cycloben Propensi Active Nausea And 2015-[address] zaprine ty to Vomiting 2-21 [facility] - adverse 00:00: Medical reaction 00 Center s CYCLOBEN Allergy Active N\\T\\V 2015-[address] [facility] ZAPRINE 2-21 [facility] - 00:00: Medical 00 Center Cycloben Propensi Active Other - See 2015-04 tremors Univers zaprine ty to comments 2-21 ity of adverse 00:00: [place] reaction 00 Medical s to Branch drug CYCLOBEN DRUG Active Other-Cmnt 2015-04 Univ ers ZAPRINE INGREDI 2-21 ity of 00:00: [place] 00 Medical Branch Codeine Propensi Active Nausea And 2015-[address] [facility] ty to Vomiting, 2-20 [facility] - adverse Palpitations 00:00: Med ical reaction , Hives 00 Center s CODEINE Allergy Active Med N\\T\\V 2015-[address] 2-20 [facility] - 00:00: Medical 00 Center Adhesive Propensi Active Other - See 2015-04 Tears U nivers Tape-Aditi ty to comments 2-20 skin ity of icones adverse 00:00: [place] reaction 00 Medical s to Branch drug Codeine Propensi Active Palpitations 2015-04 U nivers ty to 2-20 ity of adverse 00:00: [place] reaction 00 Medical s to Branch drug Propoxyp Propensi Active Palpitations 2015-04 Univers hene ty to 2-20 ity of N-Acetam adverse 00:00: [place] inophen reaction 00 Medical s to Branch drug Hydrocod Propensi Active Palpitations 2015-04 Univers one ty to 2-20 ity of adverse 00:00: [place] reaction 00 Medical s to Branch drug ADHESIVE DRUG Active Med Other-Cmnt 2015-04 Univ ers TAPE-ADITI 2-20 ity of ICONES 00:00: [place] 00 Medical Branch CODEINE DRUG Active Med N/V 2015-04 Univers INGREDI 2-20 ity of 00:00: [place] 00 Medical Branch PROPOXYP DRUG Active Med N/V 2015-04 Univers HENE 2-20 ity of N-ACETAM 00:00: [place] INOPHEN 00 Medical Branch HYDROCOD DRUG Active Med N/V 2015-04 Univers ONE INGREDI 2-20 ity of 00:00: [place] 00 Medical Branch MORPHINE DRUG Active Med N/V 2015-04 Univers INGREDI 2-20 ity of 00:00: [place] 00 Medical Branch ACETAMIN DRUG Active Med N/V 2015-04 Univers OPHEN-CO 2-20 ity of DEINE 00:00: [place] 00 Medical Branch Morphine Propensi Active Nausea 2015-04 Univer s ty to and/or 2-20 ity of adverse Vomiting 00:00: [place] reaction 00 Medical s to Branch drug Acetamin Propensi Active Palpitations 2015-04 Univers ophen-Co ty to 2-20 ity of deine adverse 00:00: [place] reaction 00 Medical s to Branch drug Social History Social Habit Start Date Stop Date Quantity Comments Source Tobacco Comment Quit 4 years ago Uni [facility] Sex Assigned At [facility] Exposure to Not sure University of SARS-CoV-2 (event) [facility] History of tobacco Smoker [facility] use [facility] History [facility] - Alcohol Std Drinks Medica Center History [facility] - Alcohol Binge Medical [address] [facility] Alcohol intake 2020-04-18 2020-04-18 Current University of 00:00:00 00:00:00 non-drinker of [facility] alcohol [place] (finding) Tobacco use and 2020-04-18 2020-04-18 Never used Universit y of exposure 00:00:00 00:00:00 [facility] Cigarettes smoked 2019-08-30 2019-08-[address] [facility] - current (pack per 00:00:00 00:00:00 Medical Center day) - Reported History SDOH 2019-03-31 2019-03-[address] [facility] - Alcohol Frequency 00:00:00 00:00:00 Medical Center Smoking Status Start Date Stop Date Source Former smoker 2020-04-18 00:00:00 2020-04-18 00:00:00 [facility] Medications Ordered Filled Start Stop Current Ordering Indication Dosage Frequency Signature Comments Components Source Medication Medication Date Date Medication? Clinician (SIG) Name Name colchicine Yes colchicine U nivers 0.6 mg 1-22 0.6 mg ity of tablet 03:27: tablet [address] levothyroxi Yes Synthroid U nivers ne 1-22 50 mcg ity of (SYNTHROID) 03:27: [place] 31 [facility] tablet Branch colchicine Yes colchicine U nivers 0.6 mg 1-22 0.6 mg ity of tablet 03:27: tablet [address] levothyroxi Yes Synthroid U nivers ne 1-22 50 mcg ity of (SYNTHROID) 03:27: tablet [place] 50 mcg 31 [facility] Branch colchicine Yes colchicine U nivers 0.6 mg 1-22 0.6 mg ity of tablet 03:27: tablet [address] levothyroxi Yes Synthroid U nivers ne 1-22 50 mcg ity of (SYNTHROID) 03:27: tablet [place] 50 mcg 31 [facility] Branch furosemide Yes 40mg 40 mg, Unive rs (LASIX) 1-20 Oral, ity of tablet 40 23:30: DAILY, [place] mg 00 First dose Medical on Wed Branch 05/01/20 at 1730, Until Discontinu ed, Routine furosemide Yes [id number] 40mg Take 1 Univers 40 mg 1-20 tablet by ity of tablet 00:00: mouth [place] 00 daily. [facility] furosemide Yes [id number] 40mg Take 1 Univers 40 mg 1-20 tablet by ity of tablet 00:00: mouth [place] 00 daily. [facility] furosemide Yes [id number] 40mg Take 1 Univers 40 mg 1-20 tablet by ity of tablet 00:00: mouth [place] 00 daily. [facility] levoFLOXaci No 250mg 250 mg, U nivers n 1-18 01-20 Oral, Q24H ity of (LEVAQUIN) 05:00: 16:58 ABX, First [place] tablet 250 00 :18 dose on Medica l mg [facility] 04/28/20 at 2300, Until Discontinu ed, MANPREET
Re ason for Anti-Infec tive: Empiric Therapy for Suspected Infection< br>Empiric Therapy Site: Urine
D uration of therapy: 7 days ciprofloxac 2020- No [id number] 500mg Take 1 Univers in HCl 500 04-29 tablet by ity of mg tablet 00:00: 00:00 mouth [place] 00 :00 every 12 Medical (twelve) Branch hours. levoFLOXaci 2020- No 750mg 750 mg, IV Univers n in D5W 04-28 Piggyback, ity of (LEVAQUIN) 05:00: 16:28 Q24H ABX, [place] 750 mg/150 00 :09 First dose Med ical mL (after Branch Piggyback last 750 mg reorder) on [facility] 04/27/20 at 2300, Until Discontinu ed, 150 mL
Reas on for Anti-Infec tive: Empiric Therapy for Suspected Infection< br>Empiric Therapy Site: Urine
D uration of therapy: 7 days melatonin Yes 9mg 9 mg, Univers (MELATIN) 1-17 Oral, QHS, ity of tablet 9 mg 03:00: First dose [place] 00 on [facility] Medical 04/27/20 at Branch 2100, Until Discontinu ed enoxaparin Yes 40mg 40 mg, Unive rs (LOVENOX) 1-16 Subcutaneo ity of injection 23:00: us, DAILY [place] 40 mg 00 AT 1700, Medical First dose Branch on 04/27/20 at 1700, Until Discontinu ed, Routine atorvastati Yes 80mg 80 mg, Univ ers n (LIPITOR) 1-16 Oral, ity of tablet 80 23:00: DAILY AT [place] mg 00 1700, Medical First dose Branch on 04/27/20 at 1700, Until Discontinu ed, Routine Sliding Yes Subcutaneo Univ ers Scale 1-16 us, TID ity of Insulin - 18:00: MEALS+HS, [place] Lispro 00 First dose Medical (HumaLOG) + on [facility] Branch Fsbg 04/27/20 at Testing 1200, Until Discontinu ed, Routine D5W 0.45% 2020-0 2020- No 1000mL at 100 Uni vers NaCl 16 01-18 mL/hr, ity of (1/2NS) IV 16:45: 16:30 1,000 mL, [place] infusion 00 :45 IV Medical 1,000 mL Infusion, Branch CONTINUOUS , Starting 04/27/20 at 1045, Until 04/29/20 at 1030, Routine losartan 2020-0 Yes 25mg 25 mg, Univers (COZAAR) 1-16 Oral, ity of tablet 25 15:00: DAILY, [place] mg 00 First dose Medical on Sat Branch 04/27/20 at 0900, Until Discontinu ed, Routine aspirin 2020-0 Yes 81mg 81 mg, Univers chewable 16 Oral, ity of tablet 81 15:00: DAILY, [place] mg 00 First dose Medical on [facility] Branch 04/27/20 at 0900, Until Discontinu ed, Routine amLODIPine 2020-0 Yes 10mg 10 mg, Unive rs (NORVASC) 16 Oral, ity of tablet 10 15:00: DAILY, [place] mg 00 First dose Medical on [facility] Branch 04/27/20 at 0900, Until Discontinu ed, Routine allopurinoL 2020-0 Yes 100mg 100 mg, Un yudith (ZYLOPRIM) -16 Oral, ity of tablet 100 15:00: DAILY, [place] mg 00 First dose Medical on [facility] Branch 04/27/20 at 0900, Until Discontinu ed, Routine pantoprazol 2020-0 Yes 40mg 40 mg, Univ ers e -16 Oral, BID, ity of (PROTONIX) 14:00: First dose [place] EC tablet 00 on [facility] Medical 40 mg 04/27/20 at Branch 0800, Until Discontinu ed, Routine gabapentin 2020-0 Yes 100mg 100 mg, Uni vers (NEURONTIN) 1-16 Oral, TID, it y of capsule 100 14:00: First dose [place] mg 00 on [facility] Medical 04/27/20 at Branch 0800, Until Discontinu ed, Routine levothyroxi 2020-0 Yes 25ug 25 mcg, Uni vers ne -16 Oral, ity of (SYNTHROID) 12:00: QAM-0600, [place] tablet 25 00 First dose [facility] jayce mcg on Sat Branch 04/27/20 at 0600, Until Discontinu ed, Routine glucagon Yes 1mg 1 mg, Univers (GLUCAGEN 04-27 Intramuscu ity of DIAGNOSTIC 09:42: lar, PRN, [place] KIT) 16 Starting Medical injection 1 Sat Branch mg 04/27/20 at 0342, Until Discontinu ed, MANPREET, Blood Glucose < or = 70 mg/dL and patient is unable to swallow or has mental changes. dextrose 50 Yes 25mL 25 mL, Univ ers % in water 04-27 Slow IV ity of (D50W) 09:39: Push, PRN, [place] injection 22 1 dose, Medical 25 mL Starting Branch 04/27/20 at 0339, Until Discontinu ed, MANPREET, Blood Glucose < or = 70 mg/dL and patient is unable to swallow or has mental status changes. HYDROcodone 2020- No 1{tbl} 1 tablet, Univers -acetaminop 04-27 Oral, ity of hen (NORCO 07:10: 07:09 Q6HPRN, [place] 5) 5-325 mg 00 :00 Starting Medi jayce tablet 1 Sat [place] tablet 04/27/20 at 0110, Until 04/29/20 at 0109, Routine, Pain (scale 4-6) acetaminoph Yes 650mg 650 mg, Un yudith en 04-27 Oral, ity of (TYLENOL) 07:09: Q6HPRN, [place] tablet 650 49 Starting Medic al mg Sat Branch 04/27/20 at 0109, Until Discontinu ed, Routine, Pain (scale 1-3) levoFLOXaci 2020- No 750mg 750 mg, IV Univers n in D5W 04-27 Piggyback, ity of (LEVAQUIN) 06:30: 07:13 ONCE, 1 [place] 750 mg/150 00 :00 dose, Sat Medi jayce mL 04/27/20 at Branch Piggyback 0030, 150 750 mg mL
Reas on for Anti-Infec tive: Empiric Therapy for Suspected Infection< br>Empiric Therapy Site: Urine
D uration of therapy: 72 hours KCL 2020- No 40meq 40 mEq, Univers (KLOR-CON 04-27 Oral, ity of M20) tablet 04:45: 04:52 ONCE, 1 [place] 40 mEq 00 :00 dose, Fri Medical 04/26/20 at [place] 2245, MANPREET iohexol 2020- No 100mL 100 mL, Unive rs (OMNIPAQUE 04-27 Intravenou it y of 350 04:09: 04:15 s, ONCE, 1 [place] BULK-100 00 :00 dose, Fri Medica l mL) 04/26/20 at [place] injection 2215, 100 mL Routine levothyroxi Yes Synthroid U nivers ne 1-08 50 mcg ity of (SYNTHROID) 07:22: tablet [place] 50 mcg 29 Medical [facility] colchicine Yes colchicine U nivers 0.6 mg 1-08 0.6 mg ity of tablet 07:22: tablet [address] levothyroxi Yes Synthroid U nivers ne 1-08 50 mcg ity of (SYNTHROID) 07:22: tablet [place] 50 mcg 29 [facility] colchicine Yes colchicine U nivers 0.6 mg 1-08 0.6 mg ity of tablet 07:22: tablet [address] levothyroxi Yes Synthroid U nivers ne 1-08 50 mcg ity of (SYNTHROID) 07:22: tablet [place] 50 mcg 29 [facility] colchicine Yes colchicine U nivers 0.6 mg 1-08 0.6 mg ity of tablet 07:22: tablet [address] pantoprazol Yes 40mg 40 mg, Univ ers e 04-19 Oral, BID, ity of (PROTONIX) 02:00: First dose [place] EC tablet 00 on [facility] Medical 40 mg 04/18/20 at [place] 1999, Until Discontinu ed, Routine amLODIPine 2020- No [id number] 10mg Take 1 Univers 10 mg 04-19 tablet by ity of tablet 00:00: 04:59 mouth [place] 00 :00 daily for Medical 90 days. [place] amLODIPine 2020- No [id number] 10mg Take 1 Univers 10 mg 04-19 tablet by ity of tablet 00:00: 04:59 mouth [place] 00 :00 daily for Medical 90 days. Branch amLODIPine 2020- No [id number] 10mg Take 1 Univers 10 mg 04-19 tablet by ity of tablet 00:00: 04:59 mouth [place] 00 :00 daily for Medical 90 days. [place] amLODIPine 2020- No [id number] 10mg Take 1 Univers 10 mg 04-19 tablet by ity of tablet 00:00: 04:59 mouth [place] 00 :00 daily for Medical 90 days. [place] amLODIPine 2020- No [id number] 10mg Take 1 Univers 10 mg 04-19 tablet by ity of tablet 00:00: 04:59 mouth [place] 00 :00 daily for Medical 90 days. [place] amLODIPine 2020- No [id number] 10mg Take 1 Univers 10 mg 04-19 tablet by ity of tablet 00:00: 04:59 mouth [place] 00 :00 daily for Medical 90 days. [place] KCL 2020- No 20meq 20 mEq, Univers (KLOR-CON 04-18 Oral, ity of M20) tablet 20:45: 20:16 ONCE, 1 [place] 20 mEq 00 :00 dose, [facility] Medical 04/18/20 at [place] 1445, Routine magnesium 2020- No 4g 4 g, IV Univ ers sulfate in 04-18 Piggyback, it y of water 4 20:45: 21:22 ONCE, 1 [place] gram/50 mL 00 :00 dose, [facility] Medi jayce (8 %) IV 04/18/20 at [place] Piggyback 4 1445, g Routine Sliding Yes Subcutaneo Univ ers Scale -07 us, TID, ity of Insulin - 20:00: First dose [place] Lispro 00 (after Medical (HumaLOG) + last Branch Fsbg modificati Testing on) on [facility]oti 04/18/20 at 1400, Until Discontinu ed, Routine losartan 2020- No losartan Univ ers 100 mg 04-18 100 mg ity of tablet 19:01: 00:00 tablet [place] 39 :00 Medical Branch gabapentin No 300mg 300 mg 3 U nivers 100 mg 04-18 (three) ity of capsule 19:01: 00:00 times [place] 39 :00 daily. Medical Branch cloNIDine 2020- clonidine Un yudith 0.1 mg 04-18 HCl 0.1 mg ity of tablet 19:01: 00:00 tablet [place] 39 :00 Medical Branch azilsartan 2020- No 80mg Take 80 mg Univers 80 mg Tab 04-18 by mouth. ity of 19:01: 00:00 [place] 39 :00 Medical Branch KCL 40meq 40 mEq, IV Unive rs (POTASSIUM 04-18 Piggyback, it y of CHLORIDE) 18:15: 18:31 ONCE, 1 [place] 40 mEq in 00 :00 dose, [facility] Medic al NaCl 0.9% 04/18/20 at [facility] h (NS) 1215, 250 piggyback mL pantoprazol No 40mg 40 mg, IV Univers e 04-18 Piggyback, ity of (PROTONIX) 14:00: 17:28 Q12H, [place] 40 mg in 00 :42 First dose Medic al NaCl 0.9% on [facility] Branch (NS) 100 mL 04/18/20 at [place] 0800, Until Discontinu ed, 100 mL pantoprazol 2020- No [id number] 40mg Take 1 Univers e 40 mg EC 04-18 tablet by ity of tablet 00:00: 04:59 mouth 2 [place] 00 :00 (two) Medical times [place] daily for 90 days. losartan 25 2020- No [id number] 25mg Take 1 Univers mg tablet 04-18 tablet by ity of 00:00: 04:59 mouth [place] 00 :00 daily for Medical 90 days. Branch aspirin 81 2020- No [id number] 81mg Take 1 U nivers mg chewable 04-18 tablet by it y of tablet 00:00: 04:59 mouth [place] 00 :00 daily for Medical 90 days. Branch pantoprazol 2020- No [id number] 40mg Take 1 Univers e 40 mg EC 04-18 tablet by ity of tablet 00:00: 04:59 mouth 2 [place] 00 :00 (two) Medical times [place] daily for 90 days. losartan 25 2020- No [id number] 25mg Take 1 Univers mg tablet 04-18 tablet by ity of 00:00: 04:59 mouth [place] 00 :00 daily for Medical 90 days. Branch aspirin 81 2020- No [id number] 81mg Take 1 U nivers mg chewable 04-18 tablet by it y of tablet 00:00: 04:59 mouth [place] 00 :00 daily for Medical 90 days. Branch pantoprazol 2020- No [id number] 40mg Take 1 Univers e 40 mg EC 04-18 tablet by ity of tablet 00:00: 04:59 mouth 2 [place] 00 :00 (two) Medical times [place] daily for 90 days. losartan 25 2020- No [id number] 25mg Take 1 Univers mg tablet 04-18 tablet by ity of 00:00: 04:59 mouth [place] 00 :00 daily for Medical 90 days. Branch aspirin 81 2020- No [id number] 81mg Take 1 U nivers mg chewable 04-18 tablet by it y of tablet 00:00: 04:59 mouth [place] 00 :00 daily for Medical 90 days. Branch pantoprazol 2020- No [id number] 40mg Take 1 Univers e 40 mg EC 04-18 tablet by ity of tablet 00:00: 04:59 mouth 2 [place] 00 :00 (two) Medical times [place] daily for 90 days. losartan 25 2020- No [id number] 25mg Take 1 Univers mg tablet 04-18 tablet by ity of 00:00: 04:59 mouth [place] 00 :00 daily for Medical 90 days. Branch aspirin 81 2020- No [id number] 81mg Take 1 U nivers mg chewable 04-18 tablet by it y of tablet 00:00: 04:59 mouth [place] 00 :00 daily for Medical 90 days. Branch pantoprazol 2020- No [id number] 40mg Take 1 Univers e 40 mg EC 04-18 tablet by ity of tablet 00:00: 04:59 mouth 2 [place] 00 :00 (two) Medical times Branch daily for 90 days. losartan 25 2020- No [id number] 25mg Take 1 Univers mg tablet 04-18 tablet by ity of 00:00: 04:59 mouth [place] 00 :00 daily for Medical 90 days. Branch aspirin 81 2020- No [id number] 81mg Take 1 U nivers mg chewable 04-18 tablet by it y of tablet 00:00: 04:59 mouth [place] 00 :00 daily for Medical 90 days. Branch pantoprazol 2020- No [id number] 40mg Take 1 Univers e 40 mg EC 04-18 tablet by ity of tablet 00:00: 04:59 mouth 2 [place] 00 :00 (two) Medical times Branch daily for 90 days. losartan 25 2020- No [id number] 25mg Take 1 Univers mg tablet 04-18 tablet by ity of 00:00: 04:59 mouth [place] 00 :00 daily for Medical 90 days. Branch aspirin 81 2020- No [id number] 81mg Take 1 U nivers mg chewable 04-18 tablet by it y of tablet 00:00: 04:59 mouth [place] 00 :00 daily for Medical 90 days. Branch gabapentin 2020- No [id number] 100mg Take 1 Univers 100 mg 04-18 capsule by ity of capsule 00:00: 05:59 mouth 3 [place] 00 :00 (three) Medical times Branch daily for 30 days. magnesium 2020- No [id number] 400mg Take 1 Univers oxide 400 04-18- capsule by ity of mg 00:00: 05:59 mouth 2 [place] magnesium 00 :00 (two) Medical capsule times Branch daily for 30 days. gabapentin 2020- No [id number] 100mg Take 1 [facility] 100 mg 04-18- capsule by ity of capsule 00:00: 05:59 mouth 3 [place] 00 :00 (three) Medical times Branch daily for 30 days. magnesium 2020- No [id number] 400mg Take 1 [facility] oxide 400 04-18- capsule by ity of mg 00:00: 05:59 mouth 2 [place] magnesium 00 :00 (two) Medical capsule times Branch daily for 30 days. gabapentin 2020- No [id number] 100mg Take 1 [facility] 100 mg 04-18- capsule by ity of capsule 00:00: 05:59 mouth 3 [place] 00 :00 (three) Medical times Branch daily for 30 days. magnesium 2020- No [id number] 400mg Take 1 [facility] oxide 400 04-18- capsule by ity of mg 00:00: 05:59 mouth 2 [place] magnesium 00 :00 (two) Medical capsule times Branch daily for 30 days. gabapentin 2020- No [id number] 100mg Take 1 [facility] 100 mg 04-18 capsule by ity of capsule 00:00: 05:59 mouth 3 [place] 00 :00 (three) Medical times Branch daily for 30 days. magnesium 2020- No [id number] 400mg Take 1 [facility] oxide 400 04-18 capsule by ity of mg 00:00: 05:59 mouth 2 [place] magnesium 00 :00 (two) Medical capsule times Branch daily for 30 days. gabapentin 2020- No [id number] 100mg Take 1 [facility] 100 mg 04-18 capsule by ity of capsule 00:00: 05:59 mouth 3 [place] 00 :00 (three) Medical times Branch daily for 30 days. magnesium 2020- No [id number] 400mg Take 1 [facility] oxide 400 04-18 capsule by ity of mg 00:00: 05:59 mouth 2 [place] magnesium 00 :00 (two) Medical capsule times Branch daily for 30 days. gabapentin 2020- No [id number] 100mg Take 1 [facility] 100 mg 04-18- capsule by ity of capsule 00:00: 05:59 mouth 3 [place] 00 :00 (three) Medical times Branch daily for 30 days. magnesium 2020- No [id number] 400mg Take 1 [facility] oxide 400 04-18- capsule by ity of mg 00:00: 05:59 mouth 2 [place] magnesium 00 :00 (two) Medical capsule times Branch daily for 30 days. triamcinolo 1- No [id number] Apply to [facility] 04-18 area(s) 2 ity of acetonide 00:00: 00:00 (two) [place] 0.1 % cream 00 :00 times Medical daily for Branch 90 days. KCL No 40meq 40 mEq, [facility] (KLOR-CON 04-17 Oral, ity of M20) tablet 13:45: 21:35 ONCE, 1 [place] 40 mEq 00 :00 dose, Wed Medical 04/17/20 at Branch 0745, Routine sodium,pota 2020- No 117mL 117 mL, U nivers ssium,mag 04-16 Oral, Q12H ity of sulfates 19:00: 08:04 ABX, 2 [place] (SUPREP 00 :00 doses, Medical BOWEL PREP First dose [facility] KIT) (after 17.5-3.13-1 last .6 gram reorder) oral on Wed solution 04/16/20 at 117 mL 1300, Last dose on Wed04/17/20 at 0100, Routine colchicine Yes .6mg 0.6 mg, Univ ers (COLCRYS) 105 Oral, ity of tablet 0.6 15:00: DAILY, [place] mg 00 First dose Medical on Wed04/16/20 at 0900, Until Discontinu ed, Routine allopurinoL Yes 100mg 100 mg, Un yudith (ZYLOPRIM) 105 Oral, ity of tablet 100 15:00: DAILY, [place] mg 00 First dose Medical on Wed04/16/20 at 0900, Until Discontinu ed, Routine sodium,pota No 117mL 117 mL, U nivers ssium,mag 04-1505 Oral, Q12H ity of sulfates 23:45: 15:15 ABX, 2 [place] (SUPREP 00 :00 doses, Medical BOWEL PREP First dose [facility] KIT) on Mon 17.5-3.13-1 04/15/20 at .6 gram 1745, Last oral dose on solution Wed04/16/20 117 mL at 0545, Routine KCL 2020- No 40meq 40 mEq, [facility] (KLOR-CON 04-14 Oral, ity of M20) tablet 14:45: 14:55 ONCE, 1 [place] 40 mEq 00 :00 dose, [facility] 04/14/20 at Branch 0845, Routine acetaminoph Yes 650mg 650 mg, Un yudith en 04-13 Oral, QID, ity of (TYLENOL) 18:00: First dose [place] tablet 650 00 (after Medical mg last Branch modificati on) on 04/13/20 at 1200, Until Discontinu ed, Routine lidocaine 2020- No 1{patch 1 Patch, Univers (LIDODERM) 04-13 } Topical, ity of 5 % (700 17:00: 05:29 Administer [place] mg/patch) 00 :00 over 12 Medical patch 1 Hours, Branch Patch ONCE, 1 dose, 04/13/20 at 1100, Routine pantoprazol 2020- No 40mg 40 mg, IV Univers e 04-13 Piggyback, ity of (PROTONIX) 02:00: 23:06 Q12H, [place] 40 mg in 00 :14 First dose Medic al NaCl 0.9% on Wed Branch (NS) 100 mL 04/12/20 at MINI-BAG 2000, Until Discontinu ed, 100 mL amLODIPine Yes 10mg 10 mg, Unive rs (NORVASC) 04-12 Oral, ity of tablet 10 15:00: DAILY, [place] mg 00 First dose Medical on Wed Branch 04/12/20 at 0900, Until Discontinu ed, Routine sodium 2020- No 5mL 5 mL, Univers citrate-cit 04-12 Oral, ity of bruno acid 15:00: 13:00 DAILY, [place] (BICITRA) 00 :43 First dose Medi jayce 500-334 on Wed Branch mg/5 mL 04/12/20 at solution 5 0900, mL Until Discontinu ed, Routine losartan 2020- No 25mg 25 mg, Univer s (COZAAR) 04-12 Oral, ity of tablet 25 15:00: 18:37 DAILY, [place] mg 00 :19 First dose Medical on Wed Branch 04/12/20 at 0900, Until Discontinu ed, Routine levothyroxi Yes 50ug 50 mcg, Uni vers ne 04-12 Oral, ity of (SYNTHROID) 12:00: QAM-0600, [place] tablet 50 00 First dose Medi jayce mcg (after Branch last modificati on) on Wed04/12/20 at 0600, Until Discontinu ed, Routine acetaminoph 2020- No 650mg 650 mg, U nivers en 04-12 Oral, BID, ity of (TYLENOL) 02:00: 15:53 First dose [place] tablet 650 00 :06 (after Medical mg last Branch modificati on) on [facility] 04/11/20 at 2000, Until Discontinu ed, Routine pantoprazol 2020- No 40mg 40 mg, Uni vers e 04-12 Oral, BID, ity of (PROTONIX) 02:00: 22:20 First dose [place] EC tablet 00 :47 on [facility] Medical 40 mg 04/11/20 Branch at 2000, Until Discontinu ed, Routine amLODIPine 2019-04- No 5mg 5 mg, Unive rs (NORVASC) 04-11 Oral, ONCE ity of tablet 5 mg 23:00: 23:20 AT 1700, 1 [place] 00 :00 dose, [facility] 04/11/20 Branch at 1700, Routine ondansetron 2019-04 Yes 4mg 4 mg, Unive rs (ZOFRAN) Oral, ity of tablet 4 mg 19:44: [id number], [place] 53 Starting Medical [facility] Branch 04/11/20 at 1344, Until Discontinu ed, Routine, Nausea and Vomiting (N/V) NaCl 0.9% 2019-04 Yes 10mL 10 mL, Univer s (NS) 2-30 Slow IV ity of injection 20:39: Push, PRN [place] 10 mL 43 - SEE Medical INSTRUCTIO Branch NS, Starting Wed04/10/20 at 1439, Until Discontinu ed, Routine heparin 2019-04 Yes 2mL 200 Units Unive rs lock flush 2-30 (2 mL), IV ity of (HEP-LOCK) 20:39: Push, PRN [place] 100 unit/mL 43 - SEE Medical injection INSTRUCTIO Bran ch 200 Units NS, Starting Wed04/10/20 at 1439, Until Discontinu ed, Routine phenol 2019-04- No 1{spray 1 [place], Uni vers (SORE 04-14 } Oral, TID, ity of THROAT 20:15: 14:09 First dose [place] (PHENOL)) 00 :11 on Wed Medical 1.4 % spray 04/10/20 Bran ch bottle 1 at 1415, [place] Until Discontinu ed, Routine acetaminoph 2019-04- No 650mg 650 mg, U nivers en 04-11 Enteral, ity of (TYLENOL) 17:30: 19:45 BID, First [place] tablet 650 00 :12 dose Medical mg (after Branch last modificati on) on Wed04/10/20 at 1130, Until Discontinu ed, Routine predniSONE 2019-04 No 40mg 40 mg, Univ ers (DELTASONE) 04-11 Oral, ity of tablet 40 17:30: 16:38 DAILY, 5 [place] mg 00 :11 doses, Medical First dose Branch on Wed04/10/20 at 1130, Last dose on Wed04/14/20 at 0900, Routine amLODIPine 2019-04- No 5mg 5 mg, Unive rs (NORVASC) 04-11 Enteral, ity o f tablet 5 mg 16:45: 16:36 DAILY, [place] 00 :00 First dose Medical (after Branch last modificati on) on Wed04/10/20 at 1045, Until Discontinu ed, Routine D5W 0.9% 2019-04 No 1000mL at 100 Univ ers NaCl (NS) 04-10 mL/hr, ity of IV infusion 08:15: 08:49 1,000 mL, [place] 1,000 mL 00 :00 IV Medical Infusion, Branch ONCE, 1 dose, Wed04/10/20 at 0215, Routine KCL 20 2019-04 No 40meq 40 mEq, Univer s mEq/15 mL 06-09 Oral, ity of solution 40 18:15: 02:37 ONCE, 1 [place] mEq 00 :00 dose, [facility] Medical 04/08/20 Branch at 1215, Routine magnesium 2019-04- No 2g 2 g, IV Univ ers sulfate in 06-09 Piggyback, it y of water 2 12:45: 12:08 ONCE, 1 [place] gram/50 mL 00 :00 dose, Mon Medi jayce (4 %) 04/08/20 Branch infusion 2 at 0645, g Routine KCL 2019-04 No 40meq 40 mEq, Univer s mEq/15 mL 06-09 Oral, ity of solution 40 07:30: 06:54 ONCE, 1 [place] mEq 00 :00 dose, Mon Medical 04/08/20 Branch at 0130, Routine sodium 2019-04- No IV Univers bicarbonate 06-08 Infusion, it y of 100 mEq in 20:45: 11:41 CONTINUOUS [place] D5W 1,000 00 :18 , Starting Medi jayce mL IV [place] Branch Solution 04/07/20 at 1445, Until 04/08/20 at 0541, 1,000 mL, at 100 mL/hr furosemide 2019-04 No 40mg 40 mg, Univ ers (LASIX) 06-08 Slow IV ity of injection 17:30: 18:07 Push, [place] 40 mg 00 :00 ONCE, 1 Medical dose, [place] Branch 04/07/20 at 1130, Routine KCL 20 2019-04 No 40meq 40 mEq, Univer s mEq/15 mL 06-08 Oral, Q4H, ity of solution 40 14:00: 18:07 2 doses, [place] mEq 00 :00 First dose Medical on [place] Branch 04/07/20 at 0800, Last dose on [place] 04/07/20 at 1200, Routine pantoprazol 2019-04 No 40mg 40 mg, IV Univers e 06-08 Piggyback, ity of (PROTONIX) 02:00: 19:45 Q12H, [place] 40 mg in 00 :12 First dose Medic al NaCl 0.9% on Sat Branch (NS) 100 mL 04/06/20 MINI-BAG at 2000, Until Discontinu ed, 100 mL aminocaproi 2019-04- No 1g/h 1 g/hr (50 Univers c acid 06-08 mL/hr), IV ity of (AMICAR) 01:15: 17:15 Infusion, [place] 5,000 mg in 00 :22 CONTINUOUS Me dical NaCl 0.9% , Starting Bran ch (NS) 250 mL Sat infusion 04/06/20 at 1915 aminocaproi 2019-04 2020- No 5000mg 5,000 mg, Univers c acid 06-08 IV ity of (AMICAR) 01:15: 02:36 Infusion, [place] 5,000 mg in 00 :00 ONCE, 1 Medic al NaCl 0.9% dose, Sat Branc h (NS) 250 mL 04/06/20 infusion at 191, 250 mL albumin 2019-04- No 25g 25 g, IV Unive rs (ALBUMINAR 06-08 Infusion, ity of 25%) 25 % 01:15: 00:32 ONCE, 1 [place] injection 00 :00 dose, Sat Medic al 25 g 04/06/20 Branch at 191, 100 mL
Xenia cation: NEPHROTIC SYNDROME (ACUTE, SEVERE PERIPHERAL OR PULMONARY EDEMA)
Comments: Short-term use of albumin in combinatio n with diuretic therapy when: serum albumin <2 g/dL and optimal diuretic therapy alone has failed labetaloL 2019-04- No 20mg 20 mg, Unive rs (NORMODYNE) 06-07 Slow IV ity of injection 23:16: 18:55 Push, [place] 20 mg 44 :33 Q4HPRN, Medical Starting Branch 04/06/20 at 1716, Until Wed04/10/20 at 1255, Routine, SBP >180 or DBP >120 hydrALAZINE 2019-04- No 10mg 10 mg, Uni vers (APRESOLINE 06-07 Enteral, ity of ) tablet 10 21:53: 23:17 Q6HPRN, [place] mg 14 :19 Starting Medical Sat Branch 04/06/20 at 1553, Until 04/06/20 at 1717, Routine, SBP >180 or DBP >120 acetaminoph 2019-04- No 650mg 650 mg, U nivers en 06-07 Enteral, ity of (TYLENOL) 15:00: 17:17 Q6HPRN, [place] tablet 650 24 :04 Starting Medic al mg Sat Branch 04/06/20 at 0900, Until 04/10/20 at 1117, Routine, Pain (scale 1-3) FENTanyl PF 2020-1 2020- No 50ug 50 mcg, Un yudith (SUBLIMAZE 06-07 Slow IV ity o f (PF)) 03:41: 13:23 Push, [place] injection 31 :50 Q6HPRN, Medical 50 mcg Starting Branch Wed04/05/20 at 2141, Until Tu04/09/20 at 0723, Routine, Pain (scale 7-10) D5W IV 2019-04 No 1000mL at 100 Univer s infusion 06-06- mL/hr, IV ity o f 1,000 mL 19:00: 04:08 Infusion, [place] 00 :56 CONTINUOUS Medical , Starting Branch Wed04/05/20 at 1300, Until 04/06/20 at 2208, Routine desmopressi 2019-04 No 20ug 20 mcg, IV Univers n (DDAVP) 06-06 Piggyback, ity of 20 mcg in 18:00: 18:11 ONCE, 1 [place] NaCl 0.9% 00 :00 dose, Fri Medic al (NS) 04/05/20 Branch piggyback at 1200, 50 mL phytonadion 2019-04 No 10mg 10 mg, IV Univers e (VITAMIN 06-06 Piggyback, it y of K) 10 mg in 18:00: 17:58 ONCE, 1 [place] NaCl 0.9% 00 :00 dose, Fri Medic al (NS) 04/05/20 Branch piggyback at 1200, 50 mL albumin 2019-04 No 25g 25 g, IV Unive rs (ALBUMINAR- 06-06 Infusion, it y of 5) 5 % 09:45: 09:31 ONCE, 1 [place] injection 00 :00 dose, Fri Medic al 25 g 04/05/20 Branch at 0345, 500 mL
Xenia cation: SHOCK/IMPE NDING SHOCK iodixanoL 2019-04- No 60mL 60 mL, Unive rs (VISIPAQUE -04 04- Injection, it y of 320-50 mL) 20:45: 20:38 ONCE, 1 [place] injection 00 :00 dose, J[place]oti Medic al 60 mL 04/04/20 Branch at 1445, Routine FENTanyl PF 2019-04 Slow IV Un yudith (SUBLIMAZE 06-05 Push, PRN, it y of (PF)) 18:57: 20:35 Starting [place] injection 53 :04 [facility] 04/04/20 Branch at 1257, Until [facility] 04/04/20 at 1435, Routine midazolam 2019-04 No IV [place], Uni vers (VERSED) 06-05 PRN, ity of injection 18:57: 20:34 Starting [place] 38 :58 [facility] 04/04/20 Branch at 1257, Until [facility] 04/04/20 at 1434, Routine lactated 2019-04- No 1000mL at 125 Univ ers ringers IV 06-05- mL/hr, ity of infusion 18:15: 17:41 1,000 mL, [place] 1,000 mL 00 :00 Intravenou Medic al s, ONCE, 1 Branch dose, [facility] 04/04/20 at 1215, Routine lactated 2019-04- No 500mL at 999 Unive rs ringers IV 06-05 mL/hr, 500 it y of infusion 09:15: 08:23 mL, IV [place] 500 mL 00 :00 Infusion, Medical ONCE, 1 Branch dose, [facility] 04/04/20 at 0315, STAT KCL 2019-04 No 40meq 40 mEq, IV Unive rs (POTASSIUM 06-05 Piggyback, it y of CHLORIDE) 09:15: 10:04 ONCE, 1 [place] 40 mEq in 00 :00 dose, [facility] Medic al NaCl 0.9% 04/04/20 Branch (NS) at 0315, piggyback 250 mL hydrALAZINE 2019-04- No 50mg 50 mg, Uni vers (APRESOLINE 06-05 Oral, TID, i ty of ) tablet 50 04:00: 08:14 First dose [place] mg 00 :29 on [facility] 04/03/20 Branch at 2200, Until Discontinu ed, Routine lactated 2019-04- No 500mL at 999 Unive rs ringers IV 06-04- mL/hr, 500 it y of infusion 13:45: 13:31 mL, IV [place] 500 mL 00 :00 Infusion, Medical ONCE, 1 Branch dose, [facility] 04/03/20 at 0745, STAT NaCl 0.9% 2020-1 2020- No CONTINUOUS U nivers (NS) IV 06-03 PRN, ity of infusion 23:05: 23:52 Starting [place] 00 :52 Tue Medical 04/02/20 Branch at 1705, Until Discontinu ed, Routine, Intra-op lidocaine 2019-04- No ONCE INTRA U nivers 1% 06-03 PROCEDURE, ity of (XYLOCAINE) 22:55: 23:52 Starting [place] 100 mg/10 00 :52 Tue Medical mL (1 %) 04/02/20 Branch injection at 1655, Until Discontinu ed, Routine, Intra-op propofoL IV 2019-04- No Intravenou Univers infusion 06-03 s, ONCE ity of 22:55: 23:52 INTRA [place] 00 :52 PROCEDURE, Medical Starting Branch 04/02/20 at 1655, Until Discontinu ed, Routine, Intra-op metoclopram 2019-04 No 10mg 10 mg, IV Univers yumi HCl 06-03 Piggyback, ity o f (REGLAN) 10 22:30: 03:18 ONCE, 1 [place] mg in NaCl 00 :00 dose, Tue Medi jayce 0.9% (NS) 04/02/20 Branch piggyback at 1630, 50 mL pantoprazol 2019-04 8mg/h 8 mg/hr U nivers e 06-03 (50 ity of (PROTONIX) 20:30: 21:37 mL/hr), IV [place] 80 mg in 00 :40 Infusion, Medica l NaCl 0.9% CONTINUOUS Bran ch (NS) 500 mL , Starting infusion 04/02/20 at 1430 lactated 2019-04- No 1000mL at 999 Univ ers ringers IV 06-03 mL/hr, ity of infusion 18:30: 19:15 1,000 mL, [place] 1,000 mL 00 :00 Intravenou Medic al s, ONCE, 1 Branch dose, 04/02/20 at 1230, Routine baclofen 10 2019-04- No baclofen U nivers mg tablet 06-0314 10 mg ity of 15:45: 00:00 tablet [place] 18 :00 Medical Branch glucagon 2019-04 Yes 1mg 1 mg, Univers (GLUCAGEN 06-03 Intramuscu ity of DIAGNOSTIC 15:42: lar, PRN, [place] KIT) 37 Starting Medical injection 1 Tue Branch mg 04/02/20 at 0942, Until Discontinu ed, MANPREET, Blood Glucose < or = 70 mg/dL and patient is unable to swallow or has mental changes. dextrose 50 2019-04 Yes 25mL 25 mL, Univ ers % in water 06-03 Slow IV ity of (D50W) 15:42: Push, PRN, [place] injection 37 Starting Medica l 25 mL Tue Branch 04/02/20 at 0942, Until Discontinu ed, MANPREET, Blood Glucose < or = 70 mg/dL and patient is unable to swallow or has mental status changes. NaCl 0.9% 2019-04- No 1000mL at 999 Uni vers (NS) IV 06-03 mL/hr, IV ity of infusion 15:30: 17:14 Infusion, [place] 1,000 mL 00 :00 ONCE, 1 Medical dose, Tue Branch 04/02/20 at 0930, STAT pantoprazol 2019-04- No 80mg 80 mg, IV Univers e 06-03 Push, ity of (PROTONIX) 15:30: 16:20 ONCE, 1 [place] 80 mg in 00 :00 dose, Tue Medica l NaCl 0.9% 04/02/20 Branch (NS) 20 mL at 0930, syringe 20 mL lidocaine 2019-04- No 5mL 5 mL, Univer s 1% (PF) 06-03 Subcutaneo ity o f (XYLOCAINE) 14:30: 14:30 us, ONCE, [place] injection 5 00 :00 1 dose, Medic al mL Tue Branch 04/02/20 at 0830, Routine NaCl 0.9% 2019-04 2020- No 1000mL at 125 Uni vers (NS) IV - 12-21 mL/hr, IV ity of infusion 16:45: 18:26 Infusion, [place] 1,000 mL 00 :00 ONCE, 1 Medical dose, Mon Branch 04/01/20 at 1045, Routine NaCl 0.9% 2019-04- No 1000mL at 125 Uni vers (NS) IV 06-02 12-21 mL/hr, IV ity of infusion 16:00: 15:14 Infusion, [place] 1,000 mL 00 :00 ONCE, 1 Medical dose, [place] [facility] 04/01/20 at 1000, Routine NaCl 0.9% 2019-04- No 1000mL at 125 Uni vers (NS) IV 06-01 12-20 mL/hr, IV ity of infusion 19:46: 20:05 Infusion, [place] 1,000 mL 00 :00 ONCE, 1 Medical dose, [facility] 03/31/20 at 1400, Routine amLODIPine 2019-04- No 10mg 10 mg, Univ ers (NORVASC) 06-01 Oral, ity of tablet 10 15:00: 14:11 DAILY, [place] mg 00 :06 First dose Medical on [facility] 03/31/20 at 0900, Until Discontinu ed, Routine atorvastati 2019-04 Yes 80mg 80 mg, Univ ers n (LIPITOR) -20 Oral, QHS, it y of tablet 80 03:00: First dose [place] mg 00 on [facility] 03/30/20 [place] at 2100, Until Discontinu ed, Routine gabapentin 2019-04- No 300mg 300 mg, Un yudith (NEURONTIN) 06-01 Oral, BID, i ty of capsule 300 02:00: 06:27 First dose [place] mg 00 :49 on [facility] 03/30/20 [place] at 2000, Until Discontinu ed, Routine carvediloL 2019-04- No 12.5mg 12.5 mg, Univers (COREG) 05-31 Oral, BID ity of tablet 12.5 23:00: 14:11 MEALS, [place] mg 00 :06 First dose Medical on [facility] 03/30/20 at 1700, Until Discontinu ed, Routine hydrALAZINE 2019-04- No 100mg 100 mg, U nivers (APRESOLINE 05-31- Oral, Q8H, i ty of ) tablet 20:00: 14:11 First dose [place] 100 mg 00 :06 on [facility] 03/30/20 Branch at 1400, Until Discontinu ed, Routine NaCl 0.9% 2019-04- No 1000mL at 125 Uni vers (NS) IV 05-31 12-19 mL/hr, IV ity of infusion 14:45: 15:12 Infusion, [place] 1,000 mL 00 :00 ONCE, 1 Medical dose, Sat Branch 03/30/20 at 0845, Routine gabapentin 2019-04- No 300mg 300 mg, Un yudith (NEURONTIN) 05-31 Oral, BID, i ty of 250 mg/5 mL 02:00: 17:51 First dose [place] solution 00 :44 on Fri Medical 300 mg 03/29/20 Branch at 2000, Until Discontinu ed, Routine hydrALAZINE 2019-04 2020- No 100mg 100 mg, U nivers (APRESOLINE 05-30 Oral, Q8H, i ty of ) 4 mg/mL 20:00: 17:51 First dose [place] oral 00 :44 on Fri Medical suspension 03/29/20 Branc h 100 mg at 1400, Until Discontinu ed, Routine amLODIPine 2019-04- No 10mg 10 mg, Univ ers benzoate 05-30 Oral, ity of (KATERZIA) 15:00: 17:51 DAILY, [place] 1 mg/mL 00 :44 First dose Medica l oral on Wed Branch suspension 03/29/20 10 mg at 0900, Until Discontinu ed, Routine carvedilol 2019-04- No 12.5mg 12.5 mg, Univers (COREG) 05-30 Oral, BID ity of 1.25 mg/mL 14:00: 17:51 MEALS, [place] oral 00 :44 First dose Medical suspension on Wed Branch 12.5 mg 03/29/20 at 0800, Until Discontinu ed, Routine NaCl 0.9% 2019-04 2020- No 1000mL at 125 Uni vers (NS) IV 05-30 mL/hr, IV ity of infusion 13:30: 15:37 Infusion, [place] 1,000 mL 00 :00 ONCE, 1 Medical dose, Fri Branch 03/29/20 at 0730, Routine triamcinolo 2019-04 Yes Topical, Un yudith ne 05-30 BID, First ity of acetonide 02:00: dose on [place] (TRIDERM) 00 [facility]oti Medical 0.1 % cream 03/28/20 Bran ch at 2000, Until Discontinu ed, Routine nystatin 2019-04 2020- No Topical, Univ ers (NYSTOP) 05-30 BID, First ity of powder 02:00: 13:16 dose on [place] 00 :04 [facility] Medical 03/28/20 Branch at 2000, Until Discontinu ed, Routine NaCl 0.9% 2019-04- No IV Univers (NS) 1000 05-29 Infusion, ity of mL + KCL 40 17:30: 21:43 at 125 [place] mEq 00 :00 mL/hr, Medical ONCE, 1 Branch dose, [facility] 03/28/20 at 1130, Routine magnesium 2019-04- No 2g 2 g, IV Univ ers sulfate in 05-29 Piggyback, it y of water 2 15:45: 23:55 ONCE, 1 [place] gram/50 mL 00 :00 dose, [facility] Medi jayce (4 %) 03/28/20 Branch infusion 2 at 0945, g Routine labetaloL 2019-04 No 20mg 20 mg, Unive rs (NORMODYNE) 05-29 Slow IV ity of injection 06:30: 06:07 Push, [place] 20 mg 00 :00 ONCE, 1 Medical dose, [facility] 03/28/20 at 0030, Routine ondansetron 2019-04- No 4mg 4 mg, Slow Univers (ZOFRAN 05-29 IV Push, ity of (PF)) 05:11: 19:45 Q6HPRN, [place] injection 4 43 :12 Starting Medi jayce mg [facility] 03/27/20 at 2311, Until [facility] 04/11/20 at 1345, Routine, Nausea and Vomiting (N/V) hydrOXYzine 2019-04- No 5mg 5 mg, Univ ers (ATARAX) 05-29 Oral, Q6H, ity of tablet 5 mg 00:00: 13:31 First dose [place] 00 :43 on [facility] Medical 03/27/20 Branch at 1800, Until Discontinu ed, Routine carvediloL 2019-04- No 12.5mg 12.5 mg, Univers (COREG) 05-28 Oral, BID ity of tablet 12.5 23:00: 13:31 MEALS, [place] mg 00 :43 First dose Medical on [facility] Branch 03/27/20 at 1700, Until Discontinu ed, Routine barium 2019-04- No 20mL 20 mL, Univers sulfate 05-28 Oral, ity of (LIQUID E-Z 22:27: 22:27 ONCE, 1 [place] GREEN) 60 % 00 :00 dose, Wed Med ical (w/v) oral 03/27/20 Branc h suspension at 1645, 20 mL Routine barium 2019-04 No 5mL 5 mL, Univers sulfate-NO 05-28 Oral, ity of CHARGE- 22:27: 22:45 ONCE, 1 [place] (VARIBAR 00 :00 dose, Wed Medica l PUDDING) 40 03/27/20 Bran ch % (w/v), at 1645, 30% (w/w) Routine oral paste 5 mL barium 2019-04 No 10mL 10 mL, Univers sulfate-NO 05-28 Oral, ity of CHARGE- 22:27: 22:27 ONCE, 1 [place] (VARIBAR 00 :00 dose, Wed Medica l NECTOR) 40 03/27/20 Branc h % (w/v) at 1645, oral Routine suspension 10 mL cefTRIAXone 2019-04 No 1000mg 1,000 mg, Univers (ROCEPHIN) 05-28 IV ity of 1,000 mg in 20:15: 16:23 Piggyback, [place] NaCl 0.9% 00 :26 Q24H ABX, Medic al (NS) 50 mL First dose Bra nch MINI-BAG on Wed03/27/20 at 1415, Until Discontinu ed, 50 mL
Reas on for Anti-Infec tive: Documented Infection< br>Documen shira Infection Site: Urine<br&g t;Duration of Therapy: 7 days colchicine 2019-04 Yes colchicine U nivers 0.6 mg 2-16 0.6 mg ity of tablet 19:04: tablet [address] cloNIDine 2019-04 Yes clonidine Uni vers 0.1 mg 2-16 HCl 0.1 mg ity of tablet 19:04: tablet [address] amLODIPine 2019-04 No 10mg 10 mg, Univ ers (NORVASC) 05-28 Oral, ity of tablet 10 15:00: 13:31 DAILY, [place] mg 00 :43 First dose Medical (after Branch last modificati on) on Wed03/27/20 at 0900, Until Discontinu ed, Routine hydrocortis 2019-04- No Topical Un yudith one 05-28 (Apply To ity of (CORTIZONE- 14:00: 21:49 Affected [place] 10) 1 % 00 :04 Areas), Medical ointment BID, First Branc h dose on Wed03/27/20 at 0800, Until Discontinu ed, Routine metoprolol 2019-04- No 75mg 75 mg, Univ ers tartrate 05-28 Oral, BID, ity of (LOPRESSOR) 14:00: 15:28 First dose [place] tablet 75 00 :16 (after Medical mg last Branch modificati on) on Wed03/27/20 at 0800, Until Discontinu ed, Routine diphenhydrA 2019-04- No 25mg 25 mg, Uni vers MINE 05-28 Oral, ity of (BENADRYL) 12:32: 18:35 Q6HPRN, [place] tablet 25 41 :43 Starting Medica l mg Wed03/27/20 at 0632, Until Wed03/27/20 at 1235, Routine, Mild Rash atorvastati 2019-04- No 80mg 80 mg, Uni vers n (LIPITOR) 05-28 Oral, QHS, i ty of tablet 80 03:00: 11:56 First dose [place] mg 00 :45 on Wed03/26/20 Branch at 2100, Until Discontinu ed, Routine metoprolol 2019-04- No 50mg 50 mg, [facility] ers tartrate 05-28 Oral, BID, ity of (LOPRESSOR) 02:00: 12:05 First dose [place] tablet 50 00 :09 (after Medical mg last Branch modificati on) on Wed03/26/20 at 2000, Until Discontinu ed, Routine ondansetron 2019-04- No 2mg 2 mg, Slow Univers (ZOFRAN 05-28 IV Push, ity of (PF)) 00:29: 05:12 Q6HPRN, [place] injection 2 27 :01 Starting Medi jayce mg Wed03/26/20 at 1829, Until Wed03/27/20 at 2312, Routine, Nausea and Vomiting (N/V) docusate 2019-04- No 100mg 100 mg, Univ ers (COLACE) 05-27 Oral, ity of capsule 100 15:00: 13:31 DAILY, [place] as mg 00 :43 First dose Medical on [facility] Branch 03/26/20 at 0900, Until Discontinu ed, Routine allopurinoL 2019-04- No 100mg 100 mg, U nivers (ZYLOPRIM) 05-27 Oral, ity of tablet 100 15:00: 13:57 DAILY, [place] mg 00 :17 First dose Medical on [facility] 03/26/20 at 0900, Until Discontinu ed, Routine amLODIPine 2019-04- No 5mg 5 mg, Unive rs (NORVASC) 05-27 Oral, ity of tablet 5 mg 15:00: 23:13 DAILY, [place] 00 :29 First dose Medical on [facility] 03/26/20 at 0900, Until Discontinu ed, Routine KCL 2019-04- No 40meq 40 mEq, Univers (KLOR-CON 05-27 Oral, ity of M20) tablet 14:41: 16:27 ONCE, 1 [place] 40 mEq 00 :00 dose, [facility] 03/26/20 Branch at 0845, Routine fluconazole 2019-04- No 150mg 150 mg, U nivers (DIFLUCAN) 05-27 Oral, ity of tablet 150 14:30: 16:26 Q72H, 2 [place] mg 00 :33 doses, Medical First dose Branch on Wed03/26/20 at 0830, Last dose on Wed03/29/20 at 0830, MANPREET
Re ason for Anti-Infec tive: Documented Infection< br>Documen shira Infection Site: Pelvic
Duration of Therapy: Other (see Comments) piperacilli 2019-04- No 3.375g 3.375 g, Univers n-tazobacta 05-27 IV ity of m (ZOSYN) 14:30: 19:06 [place]gyback, [place] 3.375 g in 00 :52 Q6H ABX, Medic al NaCl 0.9% First dose Bran ch (NS) 100 mL on [facility] MINI-BAG 03/26/20 at 0830, Until Discontinu ed, 100 mL
R irish for Anti-Infec tive: Documented Infection< br>Documen shira Infection Site: Urine<br&g t;Duration of Therapy: 7 days Sliding 2019-04- Subcutaneo Uni vers Scale [phone] us, TID ity of Insulin - 14:00: 15:07 MEALS+HS, [place] Lispro 00 :29 First dose Medical (HumaLOG) + on Wed Branch [facility] 03/26/20 Testing at 0800, Until Discontinu ed, Routine hydrALAZINE 2019-04- No 100mg 100 mg, U nivers (APRESOLINE 05-27 Oral, TID, i ty of ) tablet 14:00: 13:31 First [place] 100 mg 00 :44 (after Medical last Branch modificati on) on [facility] 03/26/20 at 0800, Until Discontinu ed, Routine gabapentin 2019-04 No 300mg 300 mg, Un yudith (NEURONTIN) 05-27 Oral, TID, i ty of capsule 300 14:00: 13:31 First dose [place] mg 00 :44 on [facility] 03/26/20 Branch at 0800, Until Discontinu ed, Routine metoprolol 2019-04- No 25mg 25 mg, Univ ers tartrate 05-27 Oral, BID, ity of (LOPRESSOR) 14:00: 23:13 First dose [place] tablet 25 00 :29 on [facility] Medical mg 03/26/20 Branch at 0800, Until Discontinu ed, Routine oxybutynin 2019-04- No 5mg 5 mg, Unive rs chloride 05-2715 Oral, BID, ity of (DITROPAN) 14:00: 14:42 First dose [place] tablet 5 mg 00 :29 on [facility] Medica l 03/26/20 Branch at 0800, Until Discontinu ed, Routine levothyroxi 2019-04- No 50ug 50 mcg, Un yudith ne 05-27 Oral, ity of (SYNTHROID) 12:00: 19:45 QAM-0600, [place] tablet 50 00 :12 First dose Medi jayce mcg on [facility] Branch 03/26/20 at 0600, Until Discontinu ed, Routine ticagrelor 2019-04- No 90mg 90 mg, Univ ers (BRILINTA) 2-15 12-22 Oral, BID, it y of tablet 90 04:15: 14:16 First dose [place] mg 00 :38 on [facility] 03/25/20 [place] at 2215, Until Discontinu ed, Routine hydrALAZINE 2019-04 No 50mg 50 mg, Uni vers (APRESOLINE 2-15 12-15 Oral, TID, i ty of ) tablet 50 04:15: 11:45 First dose [place] mg 00 :08 on [facility] 03/25/20 [place] at 2215, Until Discontinu ed, Routine losartan 2019-04 Yes losartan Unive rs 100 mg 2-15 100 mg ity of tablet 04:04: tablet [address] levothyroxi 2019-04 Yes Synthroid U nivers ne 2-15 50 mcg ity of (SYNTHROID) 04:04: tablet [place] 50 mcg 43 [facility] gabapentin 2019-04 Yes 300mg 300 mg 3 Un yudith 100 mg 2-15 (three) ity of capsule 04:04: times [place] 43 daily. Medical Branch colchicine 2019-04 Yes colchicine U nivers 0.6 mg 2-15 0.6 mg ity of tablet 04:04: tablet [address] cloNIDine 2019-04 Yes clonidine Uni vers 0.1 mg 2-15 HCl 0.1 mg ity of tablet 04:04: tablet [address] azilsartan 2019-04 Yes 80mg Take 80 mg U nivers 80 mg Tab 2-15 by mouth. ity o f 04:04: [address] losartan 2019-04 Yes losartan Unive rs 100 mg 2-15 100 mg ity of tablet 04:04: tablet [address] levothyroxi 2019-04 Yes Synthroid U nivers ne 2-15 50 mcg ity of (SYNTHROID) 04:04: tablet [place] 50 mcg 43 [facility] gabapentin 2019-04 Yes 300mg 300 mg 3 Un yudith 100 mg 2-15 (three) ity of capsule 04:04: times [place] 43 daily. [facility] Branch azilsartan 2019-04 Yes 80mg Take 80 mg U nivers 80 mg Tab 2-15 by mouth. ity o f 04:04: [address] traMADoL 50 2019-04- No tramadol U nivers mg tablet 2-15 12- 50 mg ity of 04:04: 00:00 tablet [place] 43 :00 Take 1 Medical tablet Branch every 8 hours by oral route for 10 days. torsemide 2019-04- 20mg Take 20 mg U nivers 20 mg 05-27 by mouth. ity of tablet 04:04: 00:00 [place] 43 :00 Medical Branch PARoxetine 2019-04- No paroxetine Univers 10 mg 05-27 10 mg ity of tablet 04:04: 00:00 tablet 43 :00 Medical Branch omeprazole- 2019-04- No omeprazole Univers sodium 05-27 40 ity of bicarbonate 04:04: 00:00 mg-sodium [place] 401.1 43 :00 bicarbonat Medical mg-gram per e 1.1 gram Br anch capsule capsule nebivoloL 2019-04- 20mg Take 20 mg U nivers 10 mg 05-27 by mouth. ity of tablet 04:04: 00:00 [place] 43 :00 Medical Branch metoprolol 2019-04- No metoprolol Univers tartrate 05-27 tartrate ity of 100 mg 04:04: 00:00 100 mg [place] tablet 43 :00 tablet Medical Branch metFORMIN 2019-04- 500mg Take 500 Un yudith 500 mg 05-27- mg by ity of tablet 04:04: 00:00 mouth. [place] 43 :00 Medical Branch labetaloL 2019-04- No labetalol Un yudith 200 mg 05-27 200 mg ity of tablet 04:04: 00:00 tablet [place] 43 :00 Medical Branch furosemide 2019-04- No furosemide Univers 20 mg 05-27- 20 mg ity of tablet 04:04: 00:00 tablet [place] 43 :00 Medical Branch doxepin 25 2019-04- No 25mg Take 25 mg Univers mg capsule 05-27 by mouth. ity of 04:04: 00:00 [place] 43 :00 Medical Branch amLODIPine 2019-04- No amlodipine Univers 2.5 mg 05-27 2.5 mg ity of tablet 04:04: 00:00 tablet [place] 43 :00 Medical Branch ALPRAZolam 2019-04- No alprazolam Univers 0.5 mg 2-15 12-14 0.5 mg ity of tablet 04:04: 00:00 tablet [place] 43 :00 Medical Branch albuterol 2019-04 2020- No 2{puff} Inhale 2 Univers 90 2-15 12-14 Puffs. ity of mcg/actuati 04:04: 00:00 [place] on inhaler 43 :00 Medical Branch acetaminoph 2019-04 2020- No 650mg 650 mg, U nivers en -15 - Oral, ity of (TYLENOL) 04:03: 15:00 Q6HPRN, [place] tablet 650 46 :42 Starting Medic al mg Mon Branch 03/25/20 at 2203, Until 04/06/20 at 0900, Routine, Pain (scale 1-3) aspirin EC 2019-04 Yes 81mg 81 mg, Unive rs tablet 81 0-15 Oral, ity of mg 14:00: DAILY, First dose Medical on [place] Branch 01/25/20 at 0900, Until Discontinu ed, Routine aspirin 81 2019-04 Yes [id number] 81mg Take 1 Univers mg EC 0-15 tablet by ity of tablet 00:00: mouth 00 daily. Medical Branch aspirin 81 2019-04 Yes [id number] 81mg Take 1 Univers mg EC 0-15 tablet by ity of tablet 00:00: mouth 00 daily. Medical Branch aspirin 81 2019-04 2020- No [id number] 81mg Take 1 Univers mg EC 0-15 12-14 tablet by ity of tablet 00:00: 00:00 mouth [place] 00 :00 daily. Medical Branch traMADoL 50 2019-04 Yes tramadol Un yudith mg tablet 0-14 50 mg ity of 17:00: tablet Take 1 Medical tablet Branch every 8 hours by oral route for 10 days. torsemide 2019-04 Yes 20mg Take 20 mg Un yudith 20 mg 0-14 by mouth. ity of tablet 17:00: Medical Branch PARoxetine 2019-04 Yes paroxetine U nivers 10 mg 0-14 10 mg ity of tablet 17:00: tablet Medical Branch omeprazole- 2019-04 Yes omeprazole Univers sodium 0-14 40 ity of bicarbonate 17:00: mg-sodium [place] 40-1.1 03 bicarbonat Medical mg-gram per e 1.1 gram Br anch capsule capsule nebivoloL 2019-04 Yes 20mg Take 20 mg Un yudith 10 mg 0-14 by mouth. ity of tablet 17:00: [address] metoprolol 2019-04 Yes metoprolol U nivers tartrate 0-14 tartrate ity of 100 mg 17:00: 100 mg [place] [facility] 03 tablet [facility] metFORMIN 2019-04 Yes 500mg Take 500 Uni vers 500 mg 0-14 mg by ity of tablet 17:00: mouth. [address] losartan 2019-04 Yes losartan Unive rs 100 mg 0-14 100 mg ity of tablet 17:00: tablet [address] levothyroxi 2019-04 Yes Synthroid U nivers ne 0-14 50 mcg ity of (SYNTHROID) 17:00: tablet [place] [address] [place] [address] labetaloL 2019-04 Yes labetalol Uni vers 200 mg 0-14 200 mg ity of tablet 17:00: tablet [address] gabapentin 2019-04 Yes gabapentin U nivers 100 mg 0-14 100 mg ity of capsule 17:00: capsule [address] furosemide 2019-04 Yes furosemide U nivers 20 mg 0-14 20 mg ity of tablet 17:00: tablet [address] doxepin 25 2019-04 Yes 25mg Take 25 mg U nivers mg capsule 0-14 by mouth. ity of 17:00: [address] colchicine 2019-04 Yes colchicine U nivers 0.6 mg 0-14 0.6 mg ity of tablet 17:00: tablet [address] cloNIDine 2019-04 Yes clonidine Uni vers 0.1 mg 0-14 HCl 0.1 mg ity of tablet 17:00: tablet [address] baclofen 10 2019-04 Yes baclofen Un yudith mg tablet 0-14 10 mg ity of 17:00: tablet [address] azilsartan 2019-04 Yes 80mg Take 80 mg U nivers 80 mg Tab 0-14 by mouth. ity o f 17:00: [address] amLODIPine 2019-04 Yes amlodipine U nivers 2.5 mg 0-14 2.5 mg ity of tablet 17:00: tablet [address] ALPRAZolam 2019-04 Yes alprazolam U nivers 0.5 mg 0-14 0.5 mg ity of tablet 17:00: tablet [address] albuterol 2019-04 Yes 2{puff} Inhale 2 U nivers 90 0-14 Puffs. ity of mcg/actuati 17:00: [place] on inhaler [facility] traMADoL 50 2019- Yes tramadol Un yudith mg tablet 0-14 50 mg ity of 17:00: tablet [place] [id number] Take 1 [facility] Branch every 8 hours by oral route for 10 days. torsemide 2019-04 Yes 20mg Take 20 mg Un yudith 20 mg 0-14 by mouth. ity of tablet 17:00: [address] PARoxetine 2019-04 Yes paroxetine U nivers 10 mg 0-14 10 mg ity of tablet 17:00: tablet [address] omeprazole- 2019-04 Yes omeprazole Univers sodium 0-14 40 ity of bicarbonate 17:00: mg-sodium [place] 40-1.1 03 bicarbonat Medical mg-gram per e 1.1 gram Br anch capsule capsule nebivoloL 2019-04 Yes 20mg Take 20 mg Un yudith 10 mg 0-14 by mouth. ity of tablet 17:00: [address] metoprolol 2019-04 Yes metoprolol U nivers tartrate 0-14 tartrate ity of 100 mg 17:00: [address] metFORMIN 2019-04 Yes 500mg Take 500 Uni vers 500 mg 0-14 mg by ity of tablet 17:00: mouth. [address] losartan 2019-04 Yes losartan Unive rs 100 mg 0-14 100 mg ity of tablet 17:00: tablet [address] levothyroxi 2019-04 Yes Synthroid U nivers ne 0-14 50 mcg ity of (SYNTHROID) 17:00: tablet [place] 50 mcg Medical [facility] Branch labetaloL 2019-04 Yes labetalol Uni vers 200 mg 0-14 200 mg ity of tablet 17:00: tablet [address] gabapentin 2019-04 Yes gabapentin U nivers 100 mg 0-14 100 mg ity of capsule 17:00: capsule [address] furosemide 2019-04 Yes furosemide U nivers 20 mg 0-14 20 mg ity of tablet 17:00: tablet [address] doxepin 25 2019-04 Yes 25mg Take 25 mg U nivers mg capsule 0-14 by mouth. ity of 17:00: [address] colchicine 2019-04 Yes colchicine U nivers 0.6 mg 0-14 0.6 mg ity of tablet 17:00: tablet [address] cloNIDine 2019-04 Yes clonidine Uni vers 0.1 mg 0-14 HCl 0.1 mg ity of tablet 17:00: tablet [address] baclofen 10 2019-04 Yes baclofen Un yudith mg tablet 0-14 10 mg ity of 17:00: tablet [address] azilsartan 2019-04 Yes 80mg Take 80 mg U nivers 80 mg Tab 0-14 by mouth. ity o f 17:00: [address] amLODIPine 2019-04 Yes amlodipine U nivers 2.5 mg 0-14 2.5 mg ity of tablet 17:00: tablet [address] ALPRAZolam 2019-04 Yes alprazolam U nivers 0.5 mg 0-14 0.5 mg ity of tablet 17:00: tablet [address] albuterol 2019-04 Yes 2{puff} Inhale 2 U nivers 90 0-14 Puffs. ity of mcg/actuati 17:00: [place] on inhaler [address] [place] [address] aspirin 325 2019-04 2020- No 325mg Take 325 Univers mg tablet 0-14 10-14 mg by ity of 16:13: 00:00 mouth. [place] 41 :00 [facility] warfarin 5 2019-04 2020- No warfarin 5 Univers mg tablet 0-14 10-14 mg tablet ity of 16:13: 00:00 [place] :00 [facility] torsemide 2019-04 2020- No 10mg Take 10 mg U nivers 10 mg 0-14 10-14 by mouth. ity of tablet 16:13: 00:00 [place] :00 [facility] ticagrelor 2019-04 2020- No 90mg Take 90 mg Univers 90 mg 0-14 10-14 by mouth. ity of tablet 16:13: 00:00 [place] :00 [facility] rivaroxaban 2019-04 2020- No Xarelto 20 Univers (XARELTO) 0-14 10-14 mg tablet ity of 20 mg 16:13: 00:00 [place] tablet :00 [facility] ranitidine 2019-04 2020- No 150mg Take 150 U nivers 150 mg 0-14 10-14 mg by ity of capsule 16:13: 00:00 mouth. [place] 41 :00 [facility] Branch Nebivolol 2019-04- No Bystolic Uni vers (BYSTOLIC) 0-14 10-14 20 mg ity of 20 mg 16:13: 00:00 tablet [place] tablet 41 :00 [facility] Branch metroNIDAZO 2019-04 2020- No metronidaz Univers LE 500 mg 0-14 -14 ole 500 mg ity of tablet 16:13: 00:00 tablet [place] 41 :00 [facility] Branch losartan-hy 2019-04 2020- No losartan U nivers drochloroth 0-14 10-14 100 ity of iazide 16:13: 00:00 mg-hydroch [place] 100-12.5 mg 41 :00 lorothiazi Me dical per tablet de 12.5 mg Bra nch tablet hydrALAZINE 2019-04- No hydralazin Univers 50 mg 0-14 -14 e 50 mg ity of tablet 16:13: 00:00 tablet [place] 41 :00 [facility] gabapentin 2019-04- No 300mg Take 300 U nivers 300 mg 0-14 10-14 mg by ity of capsule 16:13: 00:00 mouth. [place] 41 :00 [facility] ciprofloxac 2019-04- No ciprofloxa Univers in HCl 500 0-23 01-14 bella 500 mg it y of mg tablet 16:13: 00:00 tablet [place] 41 :00 [facility] allopurinoL 2019-04 2020- No allopurino Univers 300 mg 0-14 10-14 l 300 mg ity of tablet 16:13: 00:00 tablet [place] 41 :00 [facility] allopurinoL 2019-04 2020- No allopurino Univers 100 mg 0-14 10-14 l 100 mg ity of tablet 16:13: 00:00 tablet [place] 41 :00 [facility] Branch atorvastati 2019-04 Yes 80mg 80 mg, Univ ers n (LIPITOR) 0-14 Oral, ity of tablet 80 14:00: DAILY, [place] mg 00 First dose Medical on Wed01/24/20 at 0900, Until Discontinu ed, Routine amLODIPine 2019-04 Yes 5mg 5 mg, Univer s (NORVASC) 0-14 Oral, ity of tablet 5 mg 14:00: DAILY, [place] 00 First dose Medical on Wed14/20 at 0900, Until Discontinu ed, Routine allopurinoL 2019-04 Yes 100mg 100 mg, Un yudith (ZYLOPRIM) 0-14 Oral, ity of tablet 100 14:00: DAILY, [place] mg 00 First dose Medical on [facility] 01/24/20 at 0900, Until Discontinu ed, Routine aspirin 2019-04- No 325mg 325 mg, Unive rs tablet 325 0-14 10-14 Oral, ity of mg 14:00: 15:41 DAILY, [place] 00 :27 First dose Medical on [facility] 01/24/20 at 0900, Until Discontinu ed, Routine labetaloL 2019-04 Yes 10mg 10 mg, Univer s (NORMODYNE) 0-14 Slow IV ity o f injection 09:37: Push, [place] 10 mg 46 Q6HPRN, Medical Starting Branch [facility] 01/24/20 at 0437, Until Discontinu ed, Routine, SPB > 160 acetaminoph 2019-04 Yes 650mg 650 mg, Un yudith en 0-14 Oral, ity of (TYLENOL) 04:05: Q6HPRN, [place] tablet 650 38 Starting Medic al mg [facility] 01/23/20 at 2305, Until Discontinu ed, Routine, Pain (scale 1-3) ticagrelor 2019-04 Yes 90mg 90 mg, Unive rs (BRILINTA) 0-14 Oral, BID, ity of tablet 90 01:00: First dose [place] mg 00 on [facility] 01/23/20 Branch at 1999, Until Discontinu ed, Routine ticagrelor 2019-04- No 90mg 90 mg, Univ ers (BRILINTA) 0-14 - Oral, BID, it y of tablet 90 01:00: 15:21 First dose [place] mg 00 :25 on [facility] 01/23/20 Branch at 1999, Until Discontinu ed, Routine ticagrelor 2019-04 Yes [id number] 90mg Take 1 Univers 90 mg 0-14 tablet by ity of tablet 00:00: mouth 2 [place] 00 (two) Medical times Branch daily. ticagrelor 2019-04 Yes [id number] 90mg Take 1 Univers 90 mg 0-14 tablet by ity of tablet 00:00: mouth 2 [place] 00 (two) Medical times Branch daily. ticagrelor 2019-04 Yes [id number] 90mg Take 1 Univers 90 mg 0-14 tablet by ity of tablet 00:00: mouth 2 [place] 00 (two) Medical times Branch daily. ticagrelor 2019- Yes [id number] 90mg Take 1 Univers 90 mg 0-14 tablet by ity of tablet 00:00: mouth 2 [place] 00 (two) Medical times Branch daily. ticagrelor 2019-04- No [id number] 90mg Take 1 Univers 90 mg 0-14 01-07 tablet by ity of tablet 00:00: 00:00 mouth 2 [place] 00 :00 (two) Medical times Branch daily. enoxaparin 2019-04 Yes 40mg 40 mg, Unive rs (LOVENOX) 0-13 Subcutaneo ity of injection 22:45: us, DAILY, [place] 40 mg 00 First dose Medical on Wed Branch 01/23/20 at 1745, Until Discontinu ed, Routine aspirin 325 2019-04 Yes 325mg Take 325 U nivers mg tablet 0-13 mg by ity of 19:23: mouth. [address] warfarin 5 2019-04 Yes warfarin 5 U nivers mg tablet 0-13 mg tablet ity o f 19:23: [address] traMADoL 50 2019-04 Yes tramadol Un yudith mg tablet 0-13 50 mg ity of 19:23: tablet [place] [id number] Take 1 Medical tablet Branch every 8 hours by oral route for 10 days. torsemide 2019-04 Yes 20mg Take 20 mg Un yudith 20 mg 0-13 by mouth. ity of tablet 19:23: [address] torsemide 2019-04 Yes 10mg Take 10 mg Un yudith 10 mg 0-13 by mouth. ity of tablet 19:23: [address] ticagrelor 2019-04 Yes 90mg Take 90 mg U nivers 90 mg 0-13 by mouth. ity of tablet 19:23: [address] rivaroxaban 2019-04 Yes Xarelto 20 Univers (XARELTO) 0-13 mg tablet ity o f 20 mg 19:23: [address] ranitidine 2019-04 Yes 150mg Take 150 Un yudith 150 mg 0-13 mg by ity of capsule 19:23: mouth. [address] PARoxetine 2019-04 Yes paroxetine U nivers 10 mg 0-13 10 mg ity of tablet 19:23: tablet [address] omeprazole- 2019- Yes omeprazole Univers sodium 0-13 40 ity of bicarbonate 19:23: mg-sodium [place] 40-1.1 bicarbonat Medical mg-gram per e 1.1 gram Br anch capsule capsule nebivoloL 2019-04 Yes 20mg Take 20 mg Un yudith 10 mg 0-13 by mouth. ity of tablet 19:23: [address] Nebivolol 2019-04 Yes Bystolic Univ ers (BYSTOLIC) 0-13 20 mg ity of 20 mg 19:23: tablet [address] metroNIDAZO 2019-04 Yes metronidaz Univers LE 500 mg 0-13 [place] 500 mg ity of tablet 19:23: tablet [address] metoprolol 2019-04 Yes metoprolol U nivers tartrate 0-13 tartrate ity of 100 mg 19:23: 100 mg [place] [address] tablet Medical Branch metFORMIN 2019-04 Yes 500mg Take 500 Uni vers 500 mg 0-13 mg by ity of tablet 19:23: mouth. [address] losartan-hy 2019-04 Yes losartan Un yudith drochloroth 0-13 100 ity of iazide 19:23: mg-hydroch [place] 100-12.5 mg lorothiazi Me dical per tablet de 12.5 mg Bra deh tablet losartan 2019-04 Yes losartan Unive rs 100 mg 0-13 100 mg ity of tablet 19:23: tablet [address] levothyroxi 2019-04 Yes Synthroid U nivers ne 0-13 50 mcg ity of (SYNTHROID) 19:23: tablet [place] 50 mcg Medical [facility] Branch labetaloL 2019-04 Yes labetalol Uni vers 200 mg 0-13 200 mg ity of tablet 19:23: tablet [address] hydrALAZINE 2019-04 Yes hydralazin Univers 50 mg 0-13 e 50 mg ity of tablet 19:23: tablet [address] gabapentin 2019-04 Yes gabapentin U nivers 100 mg 0-13 100 mg ity of capsule 19:23: capsule [address] gabapentin 2019-04 Yes 300mg Take 300 Un yudith 300 mg 0-13 mg by ity of capsule 19:23: mouth. [address] furosemide 2019-04 Yes furosemide U nivers 20 mg 0-13 20 mg ity of tablet 19:23: tablet [address] doxepin 25 2019-04 Yes 25mg Take 25 mg U nivers mg capsule 0-13 by mouth. ity of 19:23: [address] colchicine 2019-04 Yes colchicine U nivers 0.6 mg 0-13 0.6 mg ity of tablet 19:23: tablet [address] cloNIDine 2019-04 Yes clonidine Uni vers 0.1 mg 0-13 HCl 0.1 mg ity of tablet 19:23: tablet [address] ciprofloxac 2019-04 Yes ciprofloxa Univers in HCl 500 0-13 bella 500 mg ity of mg tablet 19:23: tablet [address] baclofen 10 2019-04 Yes baclofen Un yudith mg tablet 0-13 10 mg ity of 19:23: tablet [address] azilsartan 2019-04 Yes 80mg Take 80 mg U nivers 80 mg Tab 0-13 by mouth. ity o f 19:23: [address] amLODIPine 2019-04 Yes amlodipine U nivers 2.5 mg 0-13 2.5 mg ity of tablet 19:23: tablet [address] ALPRAZolam 2019-04 Yes alprazolam U nivers 0.5 mg 0-13 0.5 mg ity of tablet 19:23: tablet [address] allopurinoL 2019-04 Yes allopurino Univers 300 mg 0-13 l 300 mg ity of tablet 19:23: tablet [address] allopurinoL 2019-04 Yes allopurino Univers 100 mg 0-13 l 100 mg ity of tablet 19:23: tablet [address] albuterol 2019-04 Yes 2{puff} Inhale 2 U nivers 90 0-13 Puffs. ity of mcg/actuati 19:23: [place] on inhaler [address] [place] [address] glucagon 2019-04 Yes 1mg 1 mg, Univers (GLUCAGEN 0-13 Intramuscu ity of DIAGNOSTIC 19:22: [place], PRN, [place] KIT) 54 Starting Medical injection 1 Wed Branch mg 01/23/20 at 1422, Until Discontinu ed, MANPREET, Blood Glucose < or = 70 mg/dL and patient is unable to swallow or has mental changes. dextrose 50 2019-04 Yes 25mL 25 mL, Univ ers % in water 0 Slow IV ity of (D50W) 19:22: Push, PRN, [place] injection 54 Starting Medica l 25 mL [facility] Branch 01/23/20 at 1422, Until Discontinu ed, MANPREET, Blood Glucose < or = 70 mg/dL and patient is unable to swallow or has mental status changes. iodixanol 2019-04- No 100mL 100 mL, Uni vers (VISIPAQUE 0-13 01-22 Injection, it y of 320-100 mL) 19:00: 19:00 ONCE, 1 [place] injection 00 :00 dose, Tue Medic al 100 mL 01/23/20 Branch at 1400, Routine iodixanoL 2019-04- No 50mL 50 mL, Unive rs (VISIPAQUE 0-13 01-22 Injection, it y of 320-50 mL) 18:00: 18:00 ONCE, 1 [place] injection 00 :00 dose, Tue Medic al 50 mL 01/23/20 Branch at 1300, Routine nitroglycer 2019-04- No PRN, Unive rs in 50 mg in 001-22 Starting ity of D5W 250 mL 16:02: 16:02 [facility] infusion 59 :59 01/23/20 Medical RTU at 1102 Branch verapamiL 2019-04- No PRN, Univers (ISOPTIN) 001-22 Starting ity o f injection 16:02: 16:02 [facility] 15 :15 01/23/20 Medical at 1102, Branch Until Discontinu ed, Routine heparin 2019-04- No Slow IV Univer s 1,000 001-22 Push, PRN, ity of unit/mL 16:01: 16:01 Starting [place] injection 22 :22 [facility] Medical 01/23/20 Branch at 1101, Until Discontinu ed, Routine lidocaine 2019-04- No PRN, Univers 1% (PF) 001-22 Starting ity of (XYLOCAINE) 15:51: 15:51 [facility] injection 00 :00 01/23/20 Medica l at 1051, Branch Until Discontinu ed, Routine FENTanyl PF 2019-04 Yes 25ug 25 mcg, Uni vers (SUBLIMAZE 0-13 Slow IV ity of (PF)) 15:44: Push, [place] injection 36 Q5MIN PRN, Medi jayce 25 mcg 4 doses, Branch Starting Wed01/23/20 at 1044, Until Discontinu ed, Routine, Pain (scale 4-6) ondansetron 2019-04 Yes 4mg 4 mg, Slow Univers (ZOFRAN 0-13 IV Push, ity of (PF)) 15:44: PRN, 1 [place] injection 4 36 dose, Medical mg Starting Branch Wed01/23/20 at 1044, Until Discontinu ed, Routine, Nausea and Vomiting (N/V) cloNIDine 2019-04 Yes Univers 0.3 mg 0-11 ity of tablet 00:00: [facility] Branch cloNIDine 2019-04 2020- No Univers 0.3 mg 0-11 10-14 ity of tablet 00:00: 00:00 [place] 00 :00 [facility] Branch EDARBI 80 2019-04 Yes Univers mg Tab 0-06 ity of 00:00: [place] Medical Branch EDARBI 80 2019-04 Yes Univers mg Tab 0-06 ity of 00:00: [place] [facility] Branch EDARBI 80 2019-04 Yes Univers mg Tab 0-06 ity of 00:00: [place] [facility] Branch EDARBI 80 2019-04 Yes Univers mg Tab 0-06 ity of 00:00: [place] Medical Branch EDARBI 80 2019-04 Yes Univers mg Tab 0-06 ity of 00:00: [place] [facility] Branch EDARBI 80 2019-04- No Univers mg Tab 0-06 01-07 ity of 00:00: 00:00 [place] 00 :00 [facility] Branch allopurinoL 2019-04 Yes Univer s 100 mg 0-05 ity of tablet 00:00: [place] [facility] Branch allopurinoL 2019-04 Yes Univer s 100 mg 0-05 ity of tablet 00:00: [place] [facility] Branch allopurinoL 2019-04 Yes Univer s 100 mg 0-05 ity of tablet 00:00: [place] [facility] allopurinoL 2019-04 Yes Univer s 100 mg 0-05 ity of tablet 00:00: [place] [facility] Branch allopurinoL 2019-04 Yes Univer s 100 mg 0-05 ity of tablet 00:00: [place] 00 Medical Branch BRILINTA 90 2020-1 Yes Univer s mg tablet 0-05 ity of 00:00: [place] Medical Branch allopurinoL 2020-1 Yes Univer s 100 mg 0-05 ity of tablet 00:00: [place] [facility] Branch allopurinoL 2020-1 Yes Univer s 100 mg 0-05 ity of tablet 00:00: [place] [address] Medical Branch allopurinoL 2020-1 Yes Univer s 100 mg 0-05 ity of tablet 00:00: [place] Medical Branch allopurinoL 2020-1 Yes Univer s 100 mg 0-05 ity of tablet 00:00: [place] [facility] allopurinoL 2020-1 Yes Univer s 100 mg 0-05 ity of tablet 00:00: [place] [address] [facility] allopurinoL 2020-1 Yes Univer s 100 mg 0-05 ity of tablet 00:00: [place] [address] [facility] Branch BRILINTA 90 2020-1 2020- No Unive rs mg tablet 0-05 10-14 ity of 00:00: 00:00 [place] 00 : Medical Branch glimepiride 2020-0 Yes 2mg Take 2 mg U nivers 2 mg tablet 9-29 by mouth ity of 00:00: daily. [place] [facility] glimepiride 2020-0 Yes 2mg Take 2 mg U nivers 2 mg tablet 9-29 by mouth ity of 00:00: daily. [place] [facility] glimepiride 2020-0 Yes 2mg Take 2 mg U nivers 2 mg tablet 9-29 by mouth ity of 00:00: daily. [place] [facility] glimepiride 2020-0 Yes 2mg Take 2 mg U nivers 2 mg tablet 9-29 by mouth ity of 00:00: daily. [place] [facility] glimepiride 2020-0 Yes 2mg Take 2 mg U nivers 2 mg tablet 9-29 by mouth ity of 00:00: daily. [place] [facility] glimepiride 2020-0 Yes 2mg Take 2 mg U nivers 2 mg tablet 9-29 by mouth ity of 00:00: daily. [place] [facility] glimepiride 2020-0 Yes 2mg Take 2 mg U nivers 2 mg tablet 9-29 by mouth ity of 00:00: daily. [place] [facility] glimepiride 2020-0 Yes 2mg Take 2 mg U nivers 2 mg tablet 01-08 by mouth ity of 00:00: daily. [place] [facility] glimepiride 2019-0 2020- No 2mg Take 2 mg Univers 2 mg tablet 01-0818 by mouth ity of 00:00: 00:00 daily. [place] 00 :00 Medical Branch gabapentin 2020-0 Yes 300mg Take 300 Un yudith 300 mg 9-26 mg by ity of capsule 00:00: mouth 3 [place] 00 (three) Medical times Branch daily. gabapentin 2020-0 2020- No 300mg Take 300 U nivers 300 mg 9-26 10-14 mg by ity of capsule 00:00: 00:00 mouth 3 [place] 00 :00 (three) Medical times [place] daily. oxybutynin 2020-0 Yes 5mg Take 5 mg Un yudith chloride 5 9-23 by mouth 2 ity of mg tablet 00:00: (two) [place] 00 times Medical daily. Branch oxybutynin 2020-0 Yes 5mg Take 5 mg Un yudith chloride 5 9-23 by mouth 2 ity of mg tablet 00:00: (two) [place] 00 times Medical daily. Branch oxybutynin 2020-0 Yes 5mg Take 5 mg Un yudith chloride 5 9-23 by mouth 2 ity of mg tablet 00:00: (two) [place] times Medical daily. Branch oxybutynin 2020-0 Yes 5mg Take 5 mg Un yudith chloride 5 9-23 by mouth 2 ity of mg tablet 00:00: (two) [place] 00 times Medical daily. Branch oxybutynin 2020-0 Yes 5mg Take 5 mg Un yudith chloride 5 9-23 by mouth 2 ity of mg tablet 00:00: (two) [place] 00 times Medical daily. Branch oxybutynin 2020-0 2020- No 5mg Take 5 mg U nivers chloride 5 9-23 01-07 by mouth 2 it y of mg tablet 00:00: 00:00 (two) [place] 00 :00 times Medical daily. Branch levothyroxi 2020-0 Yes 50ug Take 50 Uni vers ne 50 mcg 9-10 mcg by ity of tablet 00:00: mouth. [place] [address] Medical Branch levothyroxi 2019-0 2020- No 50ug Take 50 Un yudith ne 50 mcg 9-10 10-14 mcg by ity of tablet 00:00: 00:00 mouth. [place] 00 :00 Medical Branch ACCU-CHEK 2020-0 Yes CHECK Univers MAGDI PLUS 9-05 GLUCOSE ity of TEST STRP 00:00: ONCE DAILY [place] strip 00 ICD Medical E11.9 Branch (TABLET TAKING PATIENTS) BRAND ASK PATIENT ACCU-CHEK 2020-0 Yes CHECK Univers MAGDI PLUS 9-05 GLUCOSE ity of TEST STRP 00:00: ONCE DAILY [place] strip 00 ICD Medical E11.9 Branch (TABLET TAKING PATIENTS) BRAND ASK PATIENT ACCU-CHEK 2020-0 Yes CHECK Univers MAGDI PLUS 9-05 GLUCOSE ity of TEST STRP 00:00: ONCE DAILY [place] strip 00 ICD Medical E11.9 Branch (TABLET TAKING PATIENTS) BRAND ASK PATIENT ACCU-CHEK 2020-0 2020- No CHECK Univer s MAGDI PLUS 9-05 12-14 GLUCOSE ity o f TEST STRP 00:00: 00:00 ONCE DAILY [place] strip 00 :00 ICD Medical E11.9 Branch (TABLET TAKING PATIENTS) BRAND ASK PATIENT hydrALAZINE 2020-0 Yes 100mg Take 100 U nivers 100 mg 9-01 mg by ity of tablet 00:00: mouth 3 [place] ([facility]) Medical times Branch daily. hydrALAZINE 2020-0 Yes 100mg Take 100 U nivers 100 mg 9-01 mg by ity of tablet 00:00: mouth 3 [place] 00 ([facility]) Medical times Branch daily. hydrALAZINE 2020-0 Yes 100mg Take 100 U nivers 100 mg 9-01 mg by ity of tablet 00:00: mouth 3 [place] ([facility]) Medical times Branch daily. hydrALAZINE 2020-0 Yes 100mg Take 100 U nivers 100 mg 9-01 mg by ity of tablet 00:00: mouth 3 [place] 00 (three) Medical times Branch daily. hydrALAZINE 2020-0 Yes 100mg Take 100 U nivers 100 mg 9-01 mg by ity of tablet 00:00: mouth 3 [place] 00 (three) Medical times Branch daily. hydrALAZINE 2020-0 2021- No 100mg Take 100 Univers 100 mg 9-01 01-07 mg by ity of tablet 00:00: 00:00 mouth 3 [place] 00 :00 (three) Medical times Branch daily. cefUROXime 2020-0 Yes 250mg Take 250 Un yudith 250 mg 8-31 mg by ity of tablet 00:00: mouth 2 [place] 00 (two) Medical times Branch daily. cefUROXime 2019- 2020- No 250mg Take 250 U nivers 250 mg 8-31 10-14 mg by ity of tablet 00:00: 00:00 mouth 2 [place] 00 :00 (two) Medical times Branch daily. levothyroxi 2019- 2020- No 50ug Take 50 Un yudith ne 8-13 08-13 mcg by ity of (SYNTHROID) 19:25: 00:00 mouth [place] 50 [place]cg 56 :00 daily. Medical tablet Branch rivaroxaban 2019- 2020- No 20mg Take 20 mg Univers (XARELTO) 11-22 08-13 by mouth ity o f 20 mg 19:25: 00:00 daily. [place] tablet 56 :00 Medical Branch hydralAZINE 2019- 2020- No 100mg Take 100 Univers (APRESOLINE 8- 08-13 mg by ity of ) 100 mg 19:25: 00:00 mouth 2 [place] tablet 56 :00 (two) Medical times Branch daily. allopurinol 2019-0 2020- No 300mg Take 300 Univers 300 mg 8-13 08-13 mg by ity of tablet 19:25: 00:00 mouth [place] 56 :00 daily. Medical Branch cloniDINE 2019-0 2020- No .3mg Take 0.3 Uni vers 0.2 mg 8-13 08-13 mg by ity of tablet 19:25: 00:00 mouth 3 [place] 56 :00 (three) Medical times Branch daily. colchicine 2019- 2020- No .6mg Take 0.6 Un yudith 0.6 mg 8-13 08-13 mg by ity of tablet 19:25: 00:00 mouth as [place] 56 :00 needed. Medical Branch doxepin 25 2019-0 2020- No 25mg Take 25 mg Univers mg capsule 11-22 08-13 by mouth ity of 19:25: 00:00 at [place] 56 :00 bedtime. Medical Branch gabapentin 2019-0 2020- No 300mg Take 300 U nivers 300 mg 8-13 08-13 mg by ity of capsule 19:25: 00:00 mouth 3 [place] 56 :00 (three) Medical times Branch daily. albuterol 2019- 2020- No 2{puff} Inhale 2 Univers 90 8-13 08-13 Puffs ity of mcg/actuati 19:25: 00:00 every 6 [place] on inhaler 56 :00 (six) Medical hours as Branch needed for Wheezing or Shortness of Breath. torsemide 2019-0 2019- No 10mg Take 10 mg U nivers 10 mg 8- 08-13 by mouth ity of tablet 19:25: 00:00 daily. [place] 56 :00 Medical Branch ticagrelor 2019-0 2020- No 90mg Take 90 mg Univers (BRILINTA) 8- 08-13 by mouth 2 it y of 90 mg 19:25: 00:00 (two) [place] tablet 56 :00 times Medical daily. Branch levothyroxi 2019-0 Yes 50ug Take 50 Uni vers ne 8-13 mcg by ity of (SYNTHROID) 18:51: mouth [place] 50 mcg 12 daily. Medical tablet Branch rivaroxaban 2019-0 Yes 20mg Take 20 mg Univers (XARELTO) 8-13 by mouth ity of 20 mg 18:51: daily. [place] tablet 12 Medical Branch hydralAZINE 2019-0 Yes 100mg Take 100 U nivers (APRESOLINE 8-13 mg by ity of ) 100 mg 18:51: mouth 2 [place] tablet 12 (two) Medical times Branch daily. allopurinol 2020-0 Yes 300mg Take 300 U nivers 300 mg 8-13 mg by ity of tablet 18:51: mouth [place] 12 daily. Medical Branch cloniDINE 2019-0 Yes .3mg Take 0.3 Univ ers 0.2 mg 8-13 mg by ity of tablet 18:51: mouth 3 [place] 12 (three) Medical times Branch daily. colchicine 2020-0 Yes .6mg Take 0.6 Uni vers 0.6 mg 8-13 mg by ity of tablet 18:51: mouth as [place] 12 needed. Medical Branch doxepin 25 2020-0 Yes 25mg Take 25 mg U nivers mg capsule 8-13 by mouth ity o f 18:51: at [place] 12 bedtime. Medical Branch gabapentin 2020-0 Yes 300mg Take 300 Un yudith 300 mg 8-13 mg by ity of capsule 18:51: mouth 3 [place] 12 (three) Medical times Branch daily. albuterol 2020-0 Yes 2{puff} Inhale 2 U nivers 90 8-13 Puffs ity of mcg/actuati 18:51: every 6 [place] on inhaler 12 (six) Medical hours as Branch needed for Wheezing or Shortness of Breath. torsemide 2020-0 Yes 10mg Take 10 mg Un yudith 10 mg 8-13 by mouth ity of tablet 18:51: daily. [place] [address] Medical Branch ticagrelor 2020-0 Yes 90mg Take 90 mg U nivers (BRILINTA) 8-13 by mouth 2 ity of 90 mg 18:51: (two) [place] tablet 12 times Medical daily. Branch pneumococca 2020-0 2020- No .5mL 0.5 mL, Un yudith l vac 11-22 Intramuscu ity of polyvalent 17:45: 17:49 lar, ONCE, [place] (PNEUMOVAX- 00 :00 1 dose, Medic al 23) [place] Branch injection 11/23/19 at 0.5 mL 1245, Routine pneumococca 2020-0 2020- No .5mL 0.5 mL, Un yudith l vac 11-22 Intramuscu ity of polyvalent 17:45: 17:49 lar, ONCE, [place] (PNEUMOVAX- 00 :00 1 dose, Medic al 23) [place] Branch injection 11/23/19 at 0.5 mL 1245, Routine atorvastati 2020-0 Yes 80mg Take 80 mg Univers n 80 mg 8-13 by mouth ity of tablet 00:00: daily. [place] [facility] atorvastati 2020-0 Yes 80mg Take 80 mg Univers n 80 mg 8-13 by mouth ity of tablet 00:00: daily. [place] [facility] atorvastati 2020-0 Yes 80mg Take 80 mg Univers n 80 mg 8-13 by mouth ity of tablet 00:00: daily. [place] [address] Medical Branch aspirin 81 2020-0 Yes [id number] 81mg Take 1 Univers mg chewable 8-13 tablet by ity of tablet 00:00: mouth [place] daily. Medical Branch atorvastati 2020-0 Yes 80mg Take 80 mg Univers n 80 mg 8-13 by mouth ity of tablet 00:00: daily. [place] [address] Medical Branch atorvastati 2020-0 Yes 80mg Take 80 mg Univers n 80 mg 8-13 by mouth ity of tablet 00:00: daily. [place] [facility] aspirin 81 2020-0 Yes [id number] 81mg Take 1 Univers mg chewable 8-13 tablet by ity of tablet 00:00: mouth [place] 00 daily. Medical Branch aspirin 81 2020-0 Yes [id number] 81mg Take 1 Univers mg chewable 8-13 tablet by ity of tablet 00:00: mouth [place] 00 daily. Medical Branch aspirin 81 2020-0 Yes [id number] 81mg Take 1 Univers mg chewable 8-13 tablet by ity of tablet 00:00: mouth [place] 00 daily. Medical Branch aspirin 81 2020-0 Yes [id number] 81mg Take 1 Univers mg chewable 8-13 tablet by ity of tablet 00:00: mouth [place] 00 daily. Medical Branch aspirin 81 2020-0 Yes [id number] 81mg Take 1 Univers mg chewable 8-13 tablet by ity of tablet 00:00: mouth [place] 00 daily. Medical Branch aspirin 81 2020-0 Yes [id number] 81mg Take 1 Univers mg chewable 8-13 tablet by ity of tablet 00:00: mouth [place] 00 daily. Medical Branch aspirin 81 2020-0 Yes [id number] 81mg Take 1 Univers mg chewable 8-13 tablet by ity of tablet 00:00: mouth [place] 00 daily. Medical Branch aspirin 81 2020-0 Yes [id number] 81mg Take 1 Univers mg chewable 8-13 tablet by ity of tablet 00:00: mouth [place] 00 daily. Medical Branch aspirin 81 2020-0 Yes [id number] 81mg Take 1 Univers mg chewable 8-13 tablet by ity of tablet 00:00: mouth [place] 00 daily. Medical Branch aspirin 81 2020-0 Yes [id number] 81mg Take 1 Univers mg chewable 8-13 tablet by ity of tablet 00:00: mouth [place] 00 daily. Medical Branch aspirin 81 2020-0 Yes [id number] 81mg Take 1 Univers mg chewable 8-13 tablet by ity of tablet 00:00: mouth [place] 00 daily. Medical Branch aspirin 81 2020-0 Yes [id number] 81mg Take 1 Univers mg chewable 8-13 tablet by ity of tablet 00:00: mouth [place] 00 daily. Medical Branch aspirin 81 2020-0 Yes [id number] 81mg Take 1 Univers mg chewable 8-13 tablet by ity of tablet 00:00: mouth [place] 00 daily. Medical Branch atorvastati 2020-0 Yes 80mg Take 80 mg Univers n 80 mg 8-13 by mouth ity of tablet 00:00: daily. Medical Branch atorvastati 2020-0 Yes 80mg Take 80 mg Univers n 80 mg 8-13 by mouth ity of tablet 00:00: daily. Medical Branch atorvastati 2020-0 Yes 80mg Take 80 mg Univers n 80 mg 8-13 by mouth ity of tablet 00:00: daily. Medical Branch atorvastati 2020-0 Yes 80mg Take 80 mg Univers n 80 mg 8-13 by mouth ity of tablet 00:00: daily. [facility] Branch atorvastati 2020-0 Yes 80mg Take 80 mg Univers n 80 mg 8-13 by mouth ity of tablet 00:00: daily. Medical Branch atorvastati 2020-0 Yes 80mg Take 80 mg Univers n 80 mg 8-13 by mouth ity of tablet 00:00: daily. [facility] aspirin 81 2020-0 2020- No [id number] 81mg Take 1 Univers mg chewable 8-13 10-14 tablet by it y of tablet 00:00: 00:00 mouth [place] 00 :00 daily. [facility] Nebivolol 2020-0 2020- No 1{tbl} Take 1 Uni vers (BYSTOLIC) 8-12 08-12 tablet by ity of 20 mg 16:48: 00:00 mouth [place] tablet 02 :00 daily. [facility] Nebivolol 2020-0 2020- No 1{tbl} Take 1 Uni vers (BYSTOLIC) 8-12 08-12 tablet by ity of 20 mg 16:48: 00:00 mouth [place] tablet 02 :00 daily. [facility] Branch rivaroxaban 2020-0 Yes 20mg 20 mg, Univ ers (XARELTO) 8-12 Oral, ity of tablet 20 14:00: DAILY, [place] mg 00 First dose Medical on Wed [place] 11/22/19 at 0900, Until Discontinu ed, Routine aspirin 2020-0 Yes 81mg 81 mg, Univers chewable 8-12 Oral, ity of tablet 81 14:00: DAILY, [place] mg 00 First dose Medical on Wed [place] 11/22/19 at 0900, Until Discontinu ed, Routine rivaroxaban 2020-0 Yes 20mg 20 mg, Univ ers (XARELTO) 8-12 Oral, ity of tablet 20 14:00: DAILY, [place] mg 00 First dose Medical on [facility] 11/22/19 at 0900, Until Discontinu ed, Routine aspirin 2020-0 Yes 81mg 81 mg, Univers chewable 8-12 Oral, ity of tablet 81 14:00: DAILY, [place] mg 00 First dose Medical on [facility] 11/22/19 at 0900, Until Discontinu ed, Routine ticagrelor 2020-0 Yes 90mg 90 mg, Unive rs (BRILINTA) 8-12 Oral, BID, ity of tablet 90 13:00: First dose [place] mg 00 on [facility] 11/22/19 at Branch 0800, Until Discontinu ed, Routine ticagrelor 2020-0 Yes 90mg 90 mg, Unive rs (BRILINTA) 8-12 Oral, BID, ity of tablet 90 13:00: First dose [place] mg 00 on [facility] 11/22/19 at Branch 0800, Until Discontinu ed, Routine levothyroxi 2020-0 Yes 50ug 50 mcg, Uni vers ne 8-12 Oral, ity of (SYNTHROID) 11:00: QAM-0600, [place] tablet 50 00 First dose Medi jayce mcg on [facility] 11/22/19 at 0600, Until Discontinu ed, Routine levothyroxi 2020-0 Yes 50ug 50 mcg, Uni vers ne 8-12 Oral, ity of (SYNTHROID) 11:00: QAM-0600, [place] tablet 50 00 First dose Medi jayce mcg on [facility] 11/22/19 at 0600, Until Discontinu ed, Routine doxepin 2020-0 Yes 25mg 25 mg, Univers (SINEQUAN) 8-12 Oral, QHS, ity of capsule 25 02:00: First dose [place] mg 00 on [facility] 11/21/19 at Branch 2100, Until Discontinu ed, Routine doxepin 2020-0 Yes 25mg 25 mg, Univers (SINEQUAN) 8-12 Oral, QHS, ity of capsule 25 02:00: First dose [place] mg 00 on [facility] 11/21/19 at Branch 2100, Until Discontinu ed, Routine hydrALAZINE 2020-0 Yes 100mg 100 mg, Un yudith (APRESOLINE 8-12 Oral, BID, it y of ) tablet 01:00: First dose [place] as 100 mg 00 on [facility] 11/21/19 at [place] 1999, Until Discontinu ed, Routine gabapentin 2020-0 Yes 300mg 300 mg, Uni vers (NEURONTIN) 8-12 Oral, TID, it y of capsule 300 01:00: First dose [place] mg 00 on [facility] 11/21/19 at [place] 1999, Until Discontinu ed, Routine hydrALAZINE 2020-0 Yes 100mg 100 mg, Un yudith (APRESOLINE 8-12 Oral, BID, it y of ) tablet 01:00: First dose [place] as 100 mg 00 on [facility] 11/21/19 at [place] 1999, Until Discontinu ed, Routine gabapentin 2020-0 Yes 300mg 300 mg, Uni vers (NEURONTIN) 8-12 Oral, TID, it y of capsule 300 01:00: First dose [place] mg 00 on [facility] 11/21/19 at [place] 1999, Until Discontinu ed, Routine niCARdipine 2020-0 Yes 2.5mg/h 2.5-15 U nivers (CARDENE 8-11 mg/hr ity of I.V.) 40 mg 20:09: (12.5-75 [place] in 200 mL 35 mL/hr), IV Medi jayce 0.83% Infusion, Branch Sodium TITRATE, Chloride SBP Goal < (RTU) 180 mmHg, infusion 140-170, Starting 11/21/19 at 1509
In itiate infusion at 2.5 mg/hr.&nbs p; Ti trate by 2.5 mg/hr every 5 minutes to 15 minutes as needed to achieve and maintain goal blood pressure. Maximum dose = 15 mg/hr. If goal not maintained at maximum allowed dose, contact prescriber .
niCARdipine 2020-0 Yes 2.5mg/h 2.5-15 U nivers (CARDENE 8-11 mg/hr ity of I.V.) 40 mg 20:09: (12.5-75 [place] in 200 mL 35 mL/hr), IV Medi jayce 0.83% Infusion, Branch Sodium TITRATE, Chloride SBP Goal < (RTU) 180 mmHg, infusion 140-170, Starting [facility] 11/21/19 at 1509
In itiate infusion at 2.5 mg/hr.&nbs p; Ti trate by 2.5 mg/hr every 5 minutes to 15 minutes as needed to achieve and maintain goal blood pressure. Maximum dose = 15 mg/hr. If goal not maintained at maximum allowed dose, contact prescriber .
cloNIDine 2020-0 Yes .3mg 0.3 mg, Unive rs (CATAPRES) 8- Oral, TID, ity of tablet 0.3 19:30: First dose [place] mg 00 (after Medical last Branch modificati on) on Wed11/21/19 at 1430, Until Discontinu ed, Routine cloNIDine 2020-0 Yes .3mg 0.3 mg, Unive rs (CATAPRES) 811 Oral, TID, ity of tablet 0.3 19:30: First dose [place] mg 00 (after Medical last Branch modificati on) on Wed11/21/19 at 1430, Until Discontinu ed, Routine iodixanol 2020-0 2020- No 100mL 100 mL, Uni vers (VISIPAQUE 8- 08-11 Injection, it y of 320-100 mL) 19:30: 19:30 ONCE, 1 [place] injection 00 :00 dose, Tue Medic al 100 mL 11/21/19 at Branch 1430, Routine iodixanol 2020-0 2020- No 100mL 100 mL, Uni vers (VISIPAQUE 8-11 08-11 Injection, it y of 320-100 mL) 19:30: 19:30 ONCE, 1 [place] injection 00 :00 dose, Tue Medic al 100 mL 11/21/19 at Branch 1430, Routine ondansetron 2020-0 Yes 4mg 4 mg, Slow Univers (ZOFRAN 8-11 IV Push, ity of (PF)) 19:16: Q6HPRN, [place] injection 4 49 Starting Medi jayce mg [facility] Branch 11/21/19 at 1416, Until Discontinu ed, Routine, Nausea and Vomiting (N/V) ondansetron 2020-0 Yes 4mg 4 mg, Slow Univers (ZOFRAN 8-11 IV Push, ity of (PF)) 19:16: Q6HPRN, [place] injection 4 49 Starting Medi jayce mg [facility] Branch 11/21/19 at 1416, Until Discontinu ed, Routine, Nausea and Vomiting (N/V) acetaminoph 2020-0 Yes 650mg 650 mg, Un yudith en 11-20 Oral, ity of (TYLENOL) 19:16: Q6HPRN, [place] tablet 650 38 Starting Medic al mg [facility] 11/21/19 at 1416, Until Discontinu ed, Routine, Pain (scale 1-3) acetaminoph 2020-0 Yes 650mg 650 mg, Un yudith en 11 Oral, ity of (TYLENOL) 19:16: Q6HPRN, [place] tablet 650 38 Starting Medic al mg [facility] 11/21/19 at 1416, Until Discontinu ed, Routine, Pain (scale 1-3) lidocaine 2020-0 2020- No PRN, Univers 1% (PF) 11-20 Starting ity of (XYLOCAINE) 15:30: 15:30 Tue [place] injection 00 :00 11/21/19 at [place] [address], [place] Until Discontinu ed, Routine lidocaine 2020-0 2020- No PRN, Univers 1% (PF) 11-20 Starting ity of (XYLOCAINE) 15:30: 15:30 Tue [place] injection 00 :00 11/21/[address] Until Discontinu ed, Routine aspirin 2020-0 2020- No 650mg 650 mg, Unive rs tablet 650 11-20 Oral, ity of mg 14:45: 13:51 ONCE, 1 [place] 00 :00 dose, [facility] 11/21/19 at [place] [address], Routine aspirin 2020-0 2020- No 650mg 650 mg, Unive rs tablet 650 11-20 Oral, ity of mg 14:45: 13:51 ONCE, 1 [place] 00 :00 dose, [facility] 11/21/19 at [place] [address], Routine Nebivolol 2020-0 Yes 1{tbl} Take 1 Univ ers (BYSTOLIC) 8-05 tablet by ity of 20 mg 16:02: mouth [place] tablet 30 daily. Medical Branch levothyroxi 2020-0 Yes 50ug Take 50 Uni vers ne 8-05 mcg by ity of (SYNTHROID) 16:02: mouth [place] 50 mcg 30 daily. Medical [facility] rivaroxaban 2020-0 Yes 20mg Take 20 mg Univers (XARELTO) 8-05 by mouth ity of 20 mg 16:02: daily. [place] tablet 30 Medical Branch hydralAZINE 2020-0 Yes 100mg Take 100 U nivers (APRESOLINE 8-05 mg by ity of ) 100 mg 16:02: mouth 2 [place] tablet 30 (two) Medical times Branch daily. cloniDINE 2020-0 Yes .3mg Take 0.3 Univ ers 0.2 mg 8-05 mg by ity of tablet 16:02: mouth 3 [place] 30 (three) Medical times Branch daily. torsemide 2020-0 Yes 10mg Take 10 mg Un yudith 10 mg 8-05 by mouth ity of tablet 16:02: daily. 30 Medical Branch Nebivolol 2020-0 Yes 1{tbl} Take 1 Univ ers (BYSTOLIC) 8-05 tablet by ity of 20 mg 16:02: mouth [place] tablet 30 daily. Medical Branch levothyroxi 2020-0 Yes 50ug Take 50 Uni vers ne 8-05 mcg by ity of (SYNTHROID) 16:02: mouth [place] 50 mcg 30 daily. Medical tablet Branch rivaroxaban 2020-0 Yes 20mg Take 20 mg Univers (XARELTO) 8-05 by mouth ity of 20 mg 16:02: daily. [place] tablet 30 Medical Branch hydralAZINE 2020-0 Yes 100mg Take 100 U nivers (APRESOLINE 8-05 mg by ity of ) 100 mg 16:02: mouth 2 [place] tablet 30 (two) Medical times Branch daily. cloniDINE 2020-0 Yes .3mg Take 0.3 Univ ers 0.2 mg 8-05 mg by ity of tablet 16:02: mouth 3 [place] 30 (three) Medical times Branch daily. torsemide 2020-0 Yes 10mg Take 10 mg Un yudith 10 mg 8-05 by mouth ity of tablet 16:02: daily. 30 Medical Branch Nebivolol 2020-0 Yes 1{tbl} Take 1 Univ ers (BYSTOLIC) 8-05 tablet by ity of 20 mg 16:02: mouth [place] tablet 30 daily. Medical Branch levothyroxi 2020-0 Yes 50ug Take 50 Uni vers ne 8-05 mcg by ity of (SYNTHROID) 16:02: mouth [place] 50 mcg 30 daily. Medical tablet Branch rivaroxaban 2020-0 Yes 20mg Take 20 mg Univers (XARELTO) 8-05 by mouth ity of 20 mg 16:02: daily. [place] tablet 30 Medical Branch hydralAZINE 2020-0 Yes 100mg Take 100 U nivers (APRESOLINE 8-05 mg by ity of ) 100 mg 16:02: mouth 2 [place] tablet 30 (two) Medical times Branch daily. cloniDINE 2020-0 Yes .3mg Take 0.3 Univ ers 0.2 mg 8-05 mg by ity of tablet 16:02: mouth 3 [place] 30 (three) Medical times Branch daily. torsemide 2020-0 Yes 10mg Take 10 mg Un yudith 10 mg 8-05 by mouth ity of tablet 16:02: daily. [place] 30 Medical Branch metformin 2020-0 Yes TAKE 1 Univer s ER 500 mg 7-20 TABLET BY ity o f 24 hr 00:00: MOUTH [place] tablet 00 EVERY DAY Medical AFTER Branch EVENING MEAL metformin 2020-0 2020- No TAKE 1 Unive rs ER 500 mg 7-20 10-14 TABLET BY ity of 24 hr 00:00: 00:00 MOUTH [place] tablet 00 :00 EVERY DAY Medical AFTER Branch EVENING MEAL aspirin 325 2020-0 Yes 325mg QD Take [address] MG tablet 5-27 mg by [facility] 10:[facility]: mouth Medical 24 daily. [place] ticagrelor 2020-0 Yes 90mg Q.5D Take [address] (BRILINTA) 5-27 by mouth 2 [facility] - 90 mg Tab 10:35: (two) Medical tablet 24 times Center daily. aspirin 325 2020-0 Yes 325mg QD Take [address] MG tablet 5-27 mg by [facility] - 10:35: mouth Medical 24 daily. [place] ticagrelor 2020-0 Yes 90mg Q.5D Take 90 [...] 20 MG 09:36: daily. Medical tablet 26 [place] azilsartan 2020-0 Yes 80mg QD Take [address] medoxomil 5-20 by mouth [facility] - (EDARBI) 80 09:31: daily . Med ical mg Tab 59 [place] ranitidine 2020-0 Yes 150mg QD Take [address] (ZANTAC) 5-20 mg by [facility] - 150 MG 09:31: mouth Medical capsule 59 every Center evening . azilsartan 2020-0 Yes 80mg QD Take [address] medoxomil 5-20 by mouth [facility] - (EDARBI) 80 09:31: daily . Med ical mg Tab 59 [place] ranitidine 2020-0 Yes 150mg QD Take [address] (ZANTAC) 5-20 mg by [facility] - 150 MG 09:31: mouth Medical capsule 59 every Center evening . tamsulosin 2020-0 Yes .4mg Take 0.4 Uni vers 0.4 mg 24 2-18 mg by ity of hr capsule 00:00: mouth. [address] tamsulosin 2020-0 Yes .4mg Take 0.4 Uni vers 0.4 mg 24 2-18 mg by ity of hr capsule 00:00: mouth. [address] tamsulosin 2020-0 Yes .4mg Take 0.4 Uni vers 0.4 mg 24 2-18 mg by ity of hr capsule 00:00: mouth. [address] tamsulosin 2020-0 Yes .4mg QD Take 1 [...] by Center capsule mouth daily. tamsulosin 2020-0 2020- No .4mg Take 0.4 Un yudith 0.4 mg 24 2-18 12-14 mg by ity of hr capsule 00:00: 00:00 mouth. [place] :00 Medical Branch allopurinol 2020-0 Yes 100mg QD Take [address] (ZYLOPRIM) 2-17 mg by [facility] - 100 MG 18:25: mouth Medical tablet 17 daily. [place] colchicine 2020-0 Yes .6mg Take 0.[address] [facility] (COLCRYS) 2-17 mg by [facility] - 0.6 mg 18:25: mouth as Medical tablet 17 needed. Center gabapentin 2020-0 Yes 300mg [id number] Take [address] (NEURONTIN) 2-17 [id number] mg by [facility] - 300 MG [...] 17 needed. Center gabapentin 2020-0 Yes 300mg Q.[id number] Take [address] (NEURONTIN) 2-17 [id number] mg by L [facility] - 300 MG [...] MCG morning on tablet an empty stomach. melatonin 2020-0 Yes 10mg Take 10 mg Un yudith 10 mg Tab 2-17 by mouth. ity o f 00:00: [place] [facility] melatonin 2020-0 Yes 10mg Take 10 mg Un yudith 10 mg Tab 2-17 by mouth. ity o f 00:00: [place] [facility] melatonin 2020-0 Yes 10mg Take 10 mg Un yudith 10 mg Tab 2-17 by mouth. ity o f 00:00: [place] [facility] melatonin 2020-0 Yes 10mg Take 10 mg Un yudith 10 mg Tab 2-17 by mouth. ity o f 00:00: [facility] melatonin 2020-0 Yes 10mg Take 10 mg Un yudith 10 mg Tab 2-17 by mouth. ity o f 00:00: [address] pantoprazol 2019-0 Yes 40mg Take 40 mg Univers e 40 mg EC 2-17 by mouth. ity of tablet 00:00: [place] [facility] melatonin 2020-0 Yes 10mg Take 10 mg Un yudith 10 mg Tab 2-17 by mouth. ity o f 00:00: [place] [facility] hydrALAZINE 2020-0 Yes hydralazin Univers 100 mg 2-17 e 100 mg ity of tablet 00:00: tablet [place] [facility] cloNIDine 2020-0 Yes clonidine Uni vers 0.2 mg 2-17 HCl 0.2 mg ity of tablet 00:00: tablet [address] melatonin 2020-0 Yes 10mg Take 10 mg Un yudith 10 mg Tab 2-17 by mouth. ity o f 00:00: [address] hydrALAZINE 2020-0 Yes hydralazin Univers 100 mg 2-17 e 100 mg ity of tablet 00:00: tablet [address] melatonin 2020-0 Yes 10mg Take 10 mg Un yudith 10 mg Tab 2-17 by mouth. ity o f 00:00: [place] [facility] hydrALAZINE 2020-0 Yes hydralazin Univers 100 mg 2-17 e 100 mg ity of tablet 00:00: tablet [address] melatonin 2020-0 Yes 10mg Take 10 mg Un yudith 10 mg Tab 2-17 by mouth. ity o f 00:00: [address] melatonin 2020-0 Yes 10mg Take 10 mg Un yudith 10 mg Tab 2-17 by mouth. ity o f 00:00: [address] melatonin 2020-0 Yes 10mg Take 10 mg Un yudith 10 mg Tab 2-17 by mouth. ity o f 00:00: [address] hydrALAZINE 2020-0 Yes 100mg [id number] Take [address] [facility] (APRESOLINE 2-17 [id number] tablet [facility] ) 100 MG 00:00: 3D (100 mg Medica l tablet 00 total) by Center mouth 3 (three) times daily. melatonin 2020-0 Yes 10mg QD Take [address] [facility] [address] [facility] 10 mg Tab 2-17 by mouth [facility] - 00:[facility]: nightly. [address] pantoprazol 2020-0 Yes 40mg QD Take [address] [facility] e 2-17 tablet (40 [facility] - (PROTONIX) 00:00: mg total) Me dical 40 MG 00 by mouth Center tablet daily. hydrALAZINE 2020-0 Yes 100mg [id number] Take [address] [facility] (APRESOLINE 2-17 [id number] tablet [facility] - ) 100 MG 00:00: 3D (100 mg Medica l tablet 00 total) by Center mouth 3 (three) times daily. melatonin 2020-0 Yes 10mg QD Take [address] [facility] [address] [facility] 10 mg Tab 2-17 by mouth [facility] - 00:00: nightly. [address] pantoprazol 2020-0 Yes 40mg QD Take [address] [facility] 2-17 tablet (40 [facility] - (PROTONIX) 00:00: mg total) Me dical 40 MG 00 by mouth Center tablet daily. atorvastati 2019-0 2020- No 80mg Take 80 mg Univers n 80 mg 2-17 02-17 by mouth. ity of tablet 00:00: 05:59 [place] 00 :00 [facility] cloNIDine 2019-0 2021- No .2mg QD Take [facility]16 [facility] - (CATAPRES) 00:00: 23:59 (0.2 mg Med ical 0.2 MG 00 :00 total) by Center tablet mouth nightly. atorvastati 2020- No 80mg QD Take [address] [facility] (LIPITOR) 05-2916 tablet (80 [facility] - 80 MG 00:00: 23:59 mg total) Medica l tablet 00 :00 by mouth Center nightly. cloNIDine 2020- No .2mg QD Take 1 [facility]29 [facility] - (CATAPRES) 00:00: 23:59 (0.2 mg Med ical 0.2 MG 00 :00 total) by Center tablet mouth nightly. atorvastati No 80mg QD Take [address] [facility] (LIPITOR) 05-2916 tablet (80 [facility] - 80 MG 00:00: 23:59 mg total) Medica l tablet 00 :00 by mouth Center nightly. hydrALAZINE 2019- No 100mg Take 100 Univers 100 mg 05-29 12-14 mg by ity of tablet 00:00: 00:00 mouth [place] 00 :00 every 8 Medical (eight) Branch hours. pantoprazol 2019- No 40mg Take 40 mg Univers e 40 mg EC 05-29 10-14 by mouth. ity of tablet 00:00: 00:00 [place] 00 :00 Medical Branch cloNIDine 2019- No clonidine Un yudith 0.2 mg 05-29 10-14 HCl 0.2 mg ity of tablet 00:00: 00:00 tablet [place] 00 :00 Medical Branch atorvastati 2019- No 80mg Take 80 mg Univers n 80 mg 05-29 10-14 by mouth. ity of tablet 00:00: 00:00 [place] 00 :00 Medical Branch allopurinol Yes 300mg Take 300 U nivers 300 mg 9-13 mg by ity of tablet 15:20: mouth [place] 57 daily. Medical Branch colchicine Yes .6mg Take 0.6 Uni vers 0.6 mg 9-13 mg by ity of tablet 15:20: mouth as [place] 57 needed. Medical Branch doxepin 25 Yes 25mg Take 25 mg U nivers mg capsule 9-13 by mouth ity o f 15:20: at [place] 57 bedtime. Medical Branch gabapentin 0 Yes 300mg Take 300 Un yudith 300 mg 9-13 mg by ity of capsule 15:20: mouth 3 [place] 57 (three) Medical times Branch daily. albuterol Yes 2{puff} Inhale 2 U nivers 90 9-13 Puffs ity of mcg/actuati 15:20: every 6 [place] as on inhaler 57 (six) Medical hours as Branch needed for Wheezing or Shortness of Breath. allopurinol Yes 300mg Take 300 U nivers 300 mg 9-13 mg by ity of tablet 15:20: mouth [place] 57 daily. Medical Branch colchicine Yes .6mg Take 0.6 Uni vers 0.6 mg 9-13 mg by ity of tablet 15:20: mouth as [place] 57 needed. Medical Branch doxepin 25 Yes 25mg Take 25 mg U nivers mg capsule 9-13 by mouth ity o f 15:20: at [place] 57 bedtime. Medical Branch gabapentin Yes 300mg Take 300 Un yudith 300 mg 9-13 mg by ity of capsule 15:20: mouth 3 [place] 57 (three) Medical times Branch daily. albuterol Yes 2{puff} Inhale 2 U nivers 90 9-13 Puffs ity of mcg/actuati 15:20: every 6 [place] as on inhaler 57 (six) Medical hours as Branch needed for Wheezing or Shortness of Breath. Nebivolol Yes 1{tbl} Take 1 Univ ers (BYSTOLIC) 9-13 tablet by ity of 20 mg 15:20: mouth [place] tablet 57 daily. Medical Branch levothyroxi Yes 50ug Take 50 Uni vers ne 9-13 mcg by ity of (SYNTHROID) 15:20: mouth [place] 50 mcg 57 daily. Medical tablet Branch rivaroxaban Yes 20mg Take 20 mg Univers (XARELTO) 9-13 by mouth ity of 20 mg 15:20: daily. [place] tablet 57 Medical Branch hydralAZINE 0 Yes 100mg Take 100 U nivers (APRESOLINE 9-13 mg by ity of ) 100 mg 15:20: mouth 2 [place] tablet 57 (two) Medical times Branch daily. allopurinol 2018-0 Yes 300mg Take 300 U nivers 300 mg 9-13 mg by ity of tablet 15:20: mouth [place] 57 daily. Medical Branch cloniDINE 2018-0 Yes .2mg Take 0.2 Univ ers 0.2 mg 9-13 mg by ity of tablet 15:20: mouth 3 [place] 57 (three) Medical times Branch daily. colchicine 2018-0 Yes .6mg Take 0.6 Uni vers 0.6 mg 9-13 mg by ity of tablet 15:20: mouth as [place] 57 needed. Medical Branch doxepin 25 2018-0 Yes 25mg Take 25 mg U nivers mg capsule 9-13 by mouth ity o f 15:20: at [place] 57 bedtime. Medical Branch gabapentin 2018-0 Yes 300mg Take 300 Un yudith 300 mg 9-13 mg by ity of capsule 15:20: mouth 3 [place] 57 (three) Medical times Branch daily. albuterol 2018-0 Yes 2{puff} Inhale 2 U nivers 90 9-13 Puffs ity of mcg/actuati 15:20: every 6 [place] as on inhaler 57 (six) Medical hours as Branch needed for Wheezing or Shortness of Breath. torsemide 2018-0 Yes 10mg Take 10 mg Un yudith 10 mg 9-13 by mouth ity of tablet 15:20: daily. [place] 57 Medical Branch Nebivolol 2018-0 Yes 1{tbl} Take 1 Univ ers (BYSTOLIC) 9-13 tablet by ity of 20 mg 15:20: mouth [place] tablet 57 daily. Medical Branch levothyroxi 2018-0 Yes 50ug Take 50 Uni vers ne 9-13 mcg by ity of (SYNTHROID) 15:20: mouth [place] 50 mcg 57 daily. Medical tablet Branch rivaroxaban 2018-0 Yes 20mg Take 20 mg Univers (XARELTO) 9-13 by mouth ity of 20 mg 15:20: daily. [place] tablet 57 Medical Branch hydralAZINE 2018-0 Yes 100mg Take 100 U nivers (APRESOLINE 9-13 mg by ity of ) 100 mg 15:20: mouth 2 [place] tablet 57 (two) Medical times Branch daily. allopurinol 2018-0 Yes 300mg Take 300 U nivers 300 mg 9-13 mg by ity of tablet 15:20: mouth [place] 57 daily. Medical Branch cloniDINE 2018-0 Yes .2mg Take 0.2 Univ ers 0.2 mg 9-13 mg by ity of tablet 15:20: mouth 3 [place] 57 (three) Medical times Branch daily. colchicine 2018-0 Yes .6mg Take 0.6 Uni vers 0.6 mg 9-13 mg by ity of tablet 15:20: mouth as [place] 57 needed. Medical Branch doxepin 25 2018-0 Yes 25mg Take 25 mg U nivers mg capsule 9-13 by mouth ity o f 15:20: at [place] 57 bedtime. Medical Branch gabapentin 2018-0 Yes 300mg Take 300 Un yudith 300 mg 9-13 mg by ity of capsule 15:20: mouth 3 [place] 57 (three) Medical times Branch daily. albuterol 2018-0 Yes 2{puff} Inhale 2 U nivers 90 9-13 Puffs ity of mcg/actuati 15:20: every 6 [place] on inhaler 57 (six) Medical hours as Branch needed for Wheezing or Shortness of Breath. torsemide 2018-0 Yes 10mg Take 10 mg Un yudith 10 mg 9-13 by mouth ity of tablet 15:20: daily. [place] 57 Medical Branch Nebivolol 2018-0 Yes 1{tbl} Take 1 Univ ers (BYSTOLIC) 9-13 tablet by ity of 20 mg 15:20: mouth [place] tablet 57 daily. Medical Branch levothyroxi 2018-0 Yes 50ug Take 50 Uni vers ne 9-13 mcg by ity of (SYNTHROID) 15:20: mouth [place] 50 mcg 57 daily. Medical tablet Branch rivaroxaban 2018-0 Yes 20mg Take 20 mg Univers (XARELTO) 9-13 by mouth ity of 20 mg 15:20: daily. [place] tablet 57 Medical Branch hydralAZINE 2018-0 Yes 100mg Take 100 U nivers (APRESOLINE 9-13 mg by ity of ) 100 mg 15:20: mouth 2 [place] tablet 57 (two) Medical times Branch daily. allopurinol 2018-0 Yes 300mg Take 300 U nivers 300 mg 9-13 mg by ity of tablet 15:20: mouth [place] 57 daily. Medical Branch cloniDINE 2018-0 Yes .2mg Take 0.2 Univ ers 0.2 mg 9-13 mg by ity of tablet 15:20: mouth 3 [place] 57 (three) Medical times Branch daily. colchicine 2018-0 Yes .6mg Take 0.6 Uni vers 0.6 mg 9-13 mg by ity of tablet 15:20: mouth as [place] 57 needed. Medical Branch doxepin 25 2018-0 Yes 25mg Take 25 mg U nivers mg capsule 9-13 by mouth ity o f 15:20: at [place] 57 bedtime. Medical Branch gabapentin 2018-0 Yes 300mg Take 300 Un yudith 300 mg 9-13 mg by ity of capsule 15:20: mouth 3 [place] 57 (three) Medical times Branch daily. albuterol 2018-0 Yes 2{puff} Inhale 2 U nivers 90 9-13 Puffs ity of mcg/actuati 15:20: every 6 [place] as on inhaler 57 (six) Medical hours as Branch needed for Wheezing or Shortness of Breath. torsemide 2018-0 Yes 10mg Take 10 mg Un yudith 10 mg 9-13 by mouth ity of tablet 15:20: daily. [place] 57 Medical Branch Nebivolol 2018-0 Yes 1{tbl} Take 1 Univ ers (BYSTOLIC) 9-13 tablet by ity of 20 mg 15:20: mouth [place] tablet 57 daily. Medical Branch levothyroxi 2018-0 Yes 50ug Take 50 Uni vers ne 9-13 mcg by ity of (SYNTHROID) 15:20: mouth [place] 50 mcg 57 daily. Medical tablet Branch rivaroxaban 2018-0 Yes 20mg Take 20 mg Univers (XARELTO) 9-13 by mouth ity of 20 mg 15:20: daily. [place] tablet 57 Medical Branch hydralAZINE 2018-0 Yes 100mg Take 100 U nivers (APRESOLINE 9-13 mg by ity of ) 100 mg 15:20: mouth 2 [place] tablet 57 (two) Medical times Branch daily. allopurinol 2018-0 Yes 300mg Take 300 U nivers 300 mg 9-13 mg by ity of tablet 15:20: mouth [place] 57 daily. Medical Branch cloniDINE 2018-0 Yes .2mg Take 0.2 Univ ers 0.2 mg 9-13 mg by ity of tablet 15:20: mouth 3 [place] 57 (three) Medical times Branch daily. colchicine 2018-0 Yes .6mg Take 0.6 Uni vers 0.6 mg 9-13 mg by ity of tablet 15:20: mouth as [place] needed. Medical Branch doxepin 25 20180 Yes 25mg Take 25 mg U nivers mg capsule 9-13 by mouth ity o f 15:20: at [place] 57 bedtime. Medical Branch gabapentin 2018-0 Yes 300mg Take 300 Un yudith 300 mg 9-13 mg by ity of capsule 15:20: mouth 3 [place] 57 (three) Medical times Branch daily. albuterol 2018-0 Yes 2{puff} Inhale 2 U nivers 90 9-13 Puffs ity of mcg/actuati 15:20: every 6 [place] as on inhaler 57 (six) Medical hours as Branch needed for Wheezing or Shortness of Breath. torsemide 2018-0 Yes 10mg Take 10 mg Un yudith 10 mg 9-13 by mouth ity of tablet 15:20: daily. [place] 57 Medical Branch allopurinol 2018-0 Yes 300mg Take 300 U nivers 300 mg 9-13 mg by ity of tablet 15:20: mouth [place] 57 daily. Medical Branch colchicine 2018-0 Yes .6mg Take 0.6 Uni vers 0.6 mg 9-13 mg by ity of tablet 15:20: mouth as [place] needed. Medical Branch doxepin 25 0 Yes 25mg Take 25 mg U nivers mg capsule 9-13 by mouth ity o f 15:20: at [place] 57 bedtime. Medical Branch gabapentin 2018-0 Yes 300mg Take 300 Un yudith 300 mg 9-13 mg by ity of capsule 15:20: mouth 3 [place] 57 (three) Medical times Branch daily. albuterol 0 Yes 2{puff} Inhale 2 U nivers 90 9-13 Puffs ity of mcg/actuati 15:20: every 6 [place] as on inhaler 57 (six) Medical hours as Branch needed for Wheezing or Shortness of Breath. Immunizations Ordered Filled Immunization Date Status Comments [facility] e Immunization Name Name Pneumococcal 2019-11-23 Completed [place] o f Polysaccharide, 00:00:00 [place] Med ical PPSV23 (PNEUMOVAX) Branch Pneumococcal 2019-11-23 Completed [place] o f Polysaccharide, 00:00:00 [place] Med ical PPSV23 (PNEUMOVAX) Branch Pneumococcal 2019-11-23 Completed [place] o f Polysaccharide, 00:00:00 [place] Med ical PPSV23 (PNEUMOVAX) Branch Pneumococcal 2019-11-23 Completed University o f Polysaccharide, 00:00:00 [place] Med ical PPSV23 (PNEUMOVAX) Branch Pneumococcal 2019-11-23 Completed University o f Polysaccharide, 00:00:00 [place] Med ical PPSV23 (PNEUMOVAX) Branch Pneumococcal 2019-11-23 Completed University o f Polysaccharide, 00:00:00 [place] Med ical PPSV23 (PNEUMOVAX) Branch Pneumococcal 2019-11-23 Completed University o f Polysaccharide, 00:00:00 [place] Med ical PPSV23 (PNEUMOVAX) Branch Pneumococcal 2019-11-23 Completed University o f Polysaccharide, 00:00:00 [place] Med ical PPSV23 (PNEUMOVAX) Branch Pneumococcal 2019-11-23 Completed University o f Polysaccharide, 00:00:00 [place] Med ical PPSV23 (PNEUMOVAX) Branch Pneumococcal 2019-11-23 Completed University o f Polysaccharide, 00:00:00 [place] Med ical PPSV23 (PNEUMOVAX) Branch Pneumococcal 2019-11-23 Completed University o f Polysaccharide, 00:00:00 [place] Med ical PPSV23 (PNEUMOVAX) Branch Pneumococcal 2019-11-23 Completed University o f Polysaccharide, 00:00:00 [place] Med ical PPSV23 (PNEUMOVAX) Branch Pneumococcal 2019-11-23 Completed University o f Polysaccharide, 00:00:00 [place] Med ical PPSV23 (PNEUMOVAX) Branch Pneumococcal 2019-11-23 Completed University o f Polysaccharide, 00:00:00 [place] Med ical PPSV23 (PNEUMOVAX) Branch Pneumococcal 2019-11-23 Completed University o f Polysaccharide, 00:00:00 [place] Med ical PPSV23 (PNEUMOVAX) Branch Pneumococcal 2019-11-23 Completed University o f Polysaccharide, 00:00:00 [place] Med ical PPSV23 (PNEUMOVAX) Branch Pneumococcal 2019-11-23 Completed University o f Polysaccharide, 00:00:00 [place] Med ical PPSV23 (PNEUMOVAX) Branch Pneumococcal 2019-11-23 Completed University o f Polysaccharide, 00:00:00 [place] Med ical PPSV23 (PNEUMOVAX) Branch Pneumococcal 2019-11-23 Completed University o f Polysaccharide, 00:00:00 [place] Med ical PPSV23 (PNEUMOVAX) Branch Pneumococcal 2019-11-23 Completed University o f Polysaccharide, 00:00:00 [place] Med ical PPSV23 (PNEUMOVAX) Branch Pneumococcal 2019-11-23 Completed University o f Polysaccharide, 00:00:00 [place] Med ical PPSV23 (PNEUMOVAX) Branch Pneumococcal 2019-11-23 Completed University o f Polysaccharide, 00:00:00 [place] Med ical PPSV23 (PNEUMOVAX) Branch Pneumococcal 2019-11-23 Completed University o f Polysaccharide, 00:00:00 [place] Med ical PPSV23 (PNEUMOVAX) Branch Pneumococcal 2019-11-23 Completed University o f Polysaccharide, 00:00:00 [place] Med ical PPSV23 (PNEUMOVAX) Branch Vital Signs Vital Name Observation Time Observation Value Comments Source Systolic blood 2020-05-03 01:29:00 153 mm[Hg] Univer sity [facility] Diastolic blood 2020-05-03 01:29:00 68 mm[Hg] [facility] Heart rate 2020-05-03 01:29:00 103 /min [facility] Body temperature 2020-05-03 01:29:00 36.94 [place] [facility] Respiratory rate 2020-05-03 01:29:00 18 /min [facility] Oxygen saturation in 2020-05-03 01:29:00 91 /min [facility] blood by [facility] Pulse oximetry [place] Body height 2020-04-27 07:15:00 162.6 cm [facility] Body weight 2020-04-27 02:05:00 91.173 kg [facility] BMI 2020-04-27 02:05:00 34.50 kg/m2 [facility] Systolic blood 2020-05-03 01:29:00 153 mm[Hg] [facility] 2020-05-03 01:29:00 68 [facility]Hg[facility] 2020-05-03 01:29:00 103 /min [facility] Body temperature 2020-05-03 01:29:00 36.94 [place] [facility] [place] [facility] 2020-05-03 01:29:00 18 /min [facility] Oxygen saturation in 2020-05-03 01:29:00 91 /min University of Arterial blood by [facility] jayce Pulse oximetry Branch Body height 2020-04-27 07:15:00 162.6 cm Universi ty [facility] [place] [facility] Body weight 2020-04-27 02:05:00 91.173 kg Universi ty [facility] [place] [facility] BMI 2020-04-27 02:05:00 34.50 kg/m2 [facility] [place] [facility] Systolic blood 2020-04-19 00:31:00 168 mm[Hg] Univer sity of pressure [place] [facility] Diastolic blood 2020-04-19 00:31:00 69 mm[Hg] Unive rsity of pressure [place] [facility] Heart rate 2020-04-19 00:31:00 90 /min [facility] [place] [facility] Body temperature 2020-04-19 00:31:00 36.67 Sri Univ ersity [facility] [place] [facility] Respiratory rate 2020-04-19 00:31:00 18 /min Univ ersity of [place] [facility] Oxygen saturation in 2020-04-19 00:31:00 95 /min University of Arterial blood by [facility] Pulse oximetry Branch Body height 2020-04-12 14:04:00 165.1 cm Universi ty [facility] [place] [facility] Body weight 2020-04-12 14:04:00 91.5 kg [facility] [place] [facility] BMI 2020-04-12 14:04:00 33.57 kg/m2 [facility] [place] [facility] Systolic blood 2020-04-19 00:31:00 168 mm[Hg] Univer sity of pressure [place] [facility] Diastolic blood 2020-04-19 00:31:00 69 mm[Hg] Unive rsity of pressure [place] [facility] Heart rate 2020-04-19 00:31:00 90 /min [facility] ty [facility] [place] [facility] Body temperature 2020-04-19 00:31:00 36.67 [place] Univ ersity [facility] [place] [facility] Respiratory rate 2020-04-19 00:31:00 18 /min Univ ersity of [place] [facility] Oxygen saturation in 2020-04-19 00:31:00 95 /min University of Arterial blood by [facility] jayce Pulse oximetry Branch Body height 2020-04-12 14:04:00 165.1 cm Universi ty [facility] [place] [facility] Body weight 2020-04-12 14:04:00 91.5 kg [facility] [place] [facility] BMI 2020-04-12 14:04:00 33.57 kg/m2 [facility] [place] [facility] Respiratory rate 2020-04-02 23:33:00 26 /min Univ ersity [facility] [place] [facility] Respiratory rate 2020-04-02 23:33:00 26 /min Univ ersity of [place] [facility] Systolic blood 2020-01-24 14:00:00 176 mm[Hg] Univer sity of pressure [place] [facility] Diastolic blood 2020-01-24 14:00:00 74 mm[Hg] Unive rsity of pressure [place] [facility] Heart rate 2020-01-24 14:00:00 88 /min [facility]i ty [facility] [place] [facility] Respiratory rate 2020-01-24 14:00:00 19 /min Univ ersity [facility] [place] [facility] Oxygen saturation in 2020-01-24 14:00:00 96 /min University of Arterial blood by [place] [facility]i jayce Pulse oximetry Branch Body temperature 2020-01-24 13:00:00 37 Sri Univ ersity [facility] [place] [facility] Body height 2020-01-23 19:26:00 167.6 cm Universi ty [facility] [place] [facility] Body weight 2020-01-23 17:45:00 90 kg [facility] [place] [facility] BMI 2020-01-23 17:45:00 32.02 kg/m2 [facility] [place] [facility] Systolic blood 2020-01-24 14:00:00 176 mm[Hg] Univer sity of pressure [place] [facility] Diastolic blood 2020-01-24 14:00:00 74 mm[Hg] Unive rsity of pressure [place] [facility] Heart rate 2020-01-24 14:00:00 88 /min [facility]i ty [facility] [place] [facility] Respiratory rate 2020-01-24 14:00:00 19 /min Univ ersity of [place] [facility] Oxygen saturation in 2020-01-24 14:00:00 96 /min [facility] of Arterial blood by [place] Medi jayce Pulse oximetry Branch Body temperature 2020-01-24 13:00:00 37 Sri Univ ersity [facility] [place] [facility] Body height 2020-01-23 19:26:00 167.6 cm Universi ty [facility] [place] [facility] Body weight 2020-01-23 17:45:00 90 kg [facility] [place] [facility] BMI 2020-01-23 17:45:00 32.02 kg/m2 Universi ty of [facility] Systolic blood 2020-01-08 16:02:00 184 mm[Hg] Univer sity of pressure [facility] Diastolic blood 2020-01-08 16:02:00 75 mm[Hg] Unive rsity of pressure [facility] Heart rate 2020-01-08 16:02:00 73 /min Universi ty of [facility] Body height 2020-01-08 16:01:00 167.6 cm Universi ty of [facility] Body weight 2020-01-08 16:01:00 89.404 kg Universi ty of [facility] Branch BMI 2020-01-08 16:01:00 31.81 kg/m2 Universi ty of [facility] Systolic blood 2020-01-08 16:02:00 184 mm[Hg] Univer sity of pressure [facility] Diastolic blood 2020-01-08 16:02:00 75 mm[Hg] Unive rsity of pressure [facility] Heart rate 2020-01-08 16:02:00 73 /min Universi ty of [facility] Body height 2020-01-08 16:01:00 167.6 cm [facility] ty [facility] [place] [facility] Body weight 2020-01-08 16:01:00 89.404 kg Universi ty of [facility] BMI 2020-01-08 16:01:00 31.81 kg/m2 Universi ty of [facility] Systolic blood 2019-11-23 16:15:00 132 mm[Hg] Univer sity of pressure [facility] Diastolic blood 2019-11-23 16:15:00 47 mm[Hg] Unive rsity of pressure [facility] Heart rate 2019-11-23 16:15:00 69 /min [facility]i ty [facility] [place] [facility] Body temperature 2019-11-23 16:15:00 36.83 Sri Univ ersity of [facility] Respiratory rate 2019-11-23 16:15:00 17 /min Univ ersity of [facility] Oxygen saturation in 2019-11-23 16:15:00 97 /min University Arterial blood by [facility] Pulse oximetry Branch Body weight 2019-11-23 11:19:00 93.895 kg Universi ty of [facility] BMI 2019-11-23 11:19:00 33.41 kg/m2 Universi ty of [facility] Body height 2019-11-21 15:20:00 167.6 cm Universi ty of [facility] Systolic blood 2019-10-30 14:52:00 144 mm[Hg] Univer sity of pressure [facility] Diastolic blood 2019-10-30 14:52:00 74 mm[Hg] Unive rsity of pressure [facility] Heart rate 2019-10-30 14:52:00 73 /min Universi ty of [facility] Body height 2019-10-30 14:50:00 165.1 cm Universi ty [facility] Body weight 2019-10-30 14:50:00 86.183 kg Universi ty [facility] BMI 2019-10-30 14:50:00 31.62 kg/m2 Universi ty [facility] HEIGHT 2019-09-06 00:00:00 167.6 cm WEIGHT 2019-09-06 00:00:00 90.719 kg HEIGHT 2019-09-06 00:00:00 167.6 cm WEIGHT 2019-09-06 00:00:00 90.719 kg Procedures Procedure Date / Time Performing Source Performed Clinician POWER [employer] 2020-05-07 Doctor Unassigned, [place] of 06:01:00 [place] [facility] POCT GLUCOSE (AUTOMATED) 2020-05-03 Debra Ali [facility] of 01:29:00 [facility] POCT GLUCOSE (AUTOMATED) 2020-05-02 Debra Ali [facility]y of 23:55:00 [facility] COVID-19 (ID NOW RAPID TESTING) 2020-05-02 [facility] of 23:19:00 [facility] POCT GLUCOSE (AUTOMATED) 2020-05-02 Debra Ali [facility] ity of 19:12:00 [facility] POCT GLUCOSE (AUTOMATED) 2020-05-02 Debra Ali Univers ity of 18:58:00 [facility] POCT GLUCOSE (AUTOMATED) 2020-05-02 Debra Ali Univers ity of 16:08:00 [facility] POCT GLUCOSE (AUTOMATED) 2020-05-02 Debra Ali Univers ity of 03:02:00 [facility] POCT GLUCOSE (AUTOMATED) 2020-05-01 Debra Ali Univers ity of 15:03:00 [facility] POCT GLUCOSE (AUTOMATED) 2020-05-01 Ezzo, Ali Univers ity of 02:39:00 [facility] POCT GLUCOSE (AUTOMATED) 2020-05-01 Ezzo, Ali Univers ity of 00:41:00 [place] [facility] POCT GLUCOSE (AUTOMATED) 2020-04-30 Ezzo, Ali Univers ity of 18:50:00 [place] [facility] POCT GLUCOSE (AUTOMATED) 2020-04-30 Ezzo, Ali Univers [facility]y of 15:34:00 [place] [facility] POCT GLUCOSE (AUTOMATED) 2020-04-30 Ezzo, Ali Univers [facility]y of 11:55:00 [place] [facility] Branch POCT GLUCOSE (AUTOMATED) 2020-04-30 Ezzo, Ali Univers ity of 08:04:00 [facility] POCT GLUCOSE (AUTOMATED) 2020-04-30 Ezzo, Ali Univers ity of 04:19:00 [facility] POCT GLUCOSE (AUTOMATED) 2020-04-30 Ezzo, Ali Univers ity of 00:11:00 [facility] POCT GLUCOSE (AUTOMATED) 2020-04-29 Ezzo, Ali Univers ity of 19:45:00 [facility] POCT GLUCOSE (AUTOMATED) 2020-04-29 Ezzo, [employer] of 19:07:00 [facility] POCT GLUCOSE (AUTOMATED) 2020-04-29 Ezzo, [employer] [facility] 14:10:00 [facility] BASIC METABOLIC PANEL (NA, K, CL, 2020-04-29 [facility] of CO2, GLUCOSE, BUN, CREATININE, CA) 10:15:00 [facility] CBC WITH DIFF 2020-04-29 [facility] of 10:14:00 [facility] POCT GLUCOSE (AUTOMATED) 2020-04-29 Ezzo, [employer] of 10:14:00 [facility] POCT GLUCOSE (AUTOMATED) 2020-04-29 [facility], [employer] of 05:53:00 [facility] POCT GLUCOSE (AUTOMATED) 2020-04-29 Ezzo, [employer] of 02:22:00 [facility] POCT GLUCOSE (AUTOMATED) 2020-04-28 [facility], [employer] of 22:35:00 [facility] POCT GLUCOSE (AUTOMATED) 2020-04-28 Ezzo, [employer] of 18:01:00 [facility] POCT GLUCOSE (AUTOMATED) 2020-04-28 Ezzo, [employer] of 14:35:00 [facility] POCT GLUCOSE (AUTOMATED) 2020-04-28 Ezzo, [employer] [facility] of 11:58:00 [facility] POCT GLUCOSE (AUTOMATED) 2020-04-28 [facility], [employer] of 07:58:00 [facility] POCT GLUCOSE (AUTOMATED) 2020-04-28 Ezzo, [employer] [facility] of 04:16:00 [facility] POCT GLUCOSE (AUTOMATED) 2020-04-28 Ezzo, [employer] [facility] of 00:40:00 [facility] POCT GLUCOSE (AUTOMATED) 2020-04-27 Ezzo, [employer] [facility] of 21:02:00 [facility] POCT GLUCOSE (AUTOMATED) 2020-04-27 Ezzo, [employer] [facility] of 18:39:00 [facility] POCT GLUCOSE (AUTOMATED) 2020-04-27 Ezzo, [employer] [facility] of 16:50:00 [facility] POCT GLUCOSE (AUTOMATED) 2020-04-27 Ezzo, [employer] [facility] of 16:08:00 [facility] POCT GLUCOSE (AUTOMATED) 2020-04-27 Ezzo, [employer] [facility] of 14:05:00 [facility] POCT GLUCOSE (AUTOMATED) 2020-04-27 Ezzo, [employer] [facility] of 13:27:00 [facility] POCT GLUCOSE (AUTOMATED) 2020-04-27 Ezzo, [employer] of 11:17:00 [facility] POCT GLUCOSE (AUTOMATED) 2020-04-27 Ezzo, [employer] [facility] of 10:03:00 [facility] POCT GLUCOSE (AUTOMATED) 2020-04-27 Ezzo, [employer] of 08:11:00 [facility] POCT GLUCOSE (AUTOMATED) 2020-04-27 Ezzo, [facility] [employer] [facility] [facility] 07:22:00 [facility] POCT GLUCOSE (AUTOMATED) 2020-04-27 [facility] of 06:29:00 [facility] URINALYSIS 2020-04-[address] [facility] of 04:29:00 [facility] EXTRA TUBE URINE CULTURE 2020-04-27 [facility] rsity of 04:29:[address] [facility] [address] ABDOMEN PELVIS W CONTRAST 2020-04-27 [facility] niversity of 04:13:[address] [facility] [address] HEAD WO CONTRAST 2020-04-27 Count Includes [facility] of 04:13:[address] [facility] [address] THORAX W CONTRAST 2020[facility] 04:13[facility]56 [facility] HB ECG ROUTINE & RHYTHM STRIP 2020-04-27 [facility] 02:57:49 [facility] TROPONIN I 2020-04-27 [facility] 02:54:00 [facility] HEPATIC FUNCTION PANEL (71956) 2020-04-27 [facility] (ALB,T.PRO,BILI 02:54:00 [facility],BU/BC,ALT,AST,ALK PHOS) [place] BASIC METABOLIC PANEL (NA, K, CL, 2020-04-27 [place] [address], GLUCOSE, BUN, CREATININE, CA) 02:54:00 [facility] CBC WITH DIFF 2020-04-27 [facility] 02:54:00 [facility] COVID-19 (ID NOW RAPID TESTING) 2020-04-27 [facility] 02:54:00 [facility] LAB ONLY COVID INTERPRETATION 2020-04-27 [facility] 02:54:00 [facility] POCT GLUCOSE (AUTOMATED) 2020-04-27 [facility] rsity of 01:56:00 [facility] HOSPITAL ADMISSION 2020-04-26 Doctor Unassigned, [place] of 06:01:00 [place] [facility] POCT GLUCOSE (AUTOMATED) 2020-04-19 Cata Ye [facility] ersity of 00:11:00 [facility] BASIC METABOLIC PANEL (NA, K, CL, 2020-04-18 [facility] CO2, GLUCOSE, BUN, CREATININE, CA) 21:27:00 [facility] MAGNESIUM 2020-04-18 [facility] of 21:27:00 [facility] POCT GLUCOSE (AUTOMATED) 2020-04-18 [facility] ersity of 18:22:00 [facility] POCT GLUCOSE (AUTOMATED) 2020-04-18 [facility] ersity of 15:09:00 [facility] BASIC METABOLIC PANEL (NA, K, CL, 2020-04-18 [facility] of CO2, GLUCOSE, BUN, CREATININE, CA) 11:51:00 [facility] CBC WITH DIFF 2020-04-18 [facility] of 11:51:00 [facility] MAGNESIUM 2020-04-18 [facility] of 11:51:00 [facility] POCT GLUCOSE (AUTOMATED) 2020-04-18 [facility] ersity of 02:09:00 [facility] CBC WITH DIFF 2020-04-18 [facility] of 00:04:00 [facility] POCT GLUCOSE (AUTOMATED) 2020-04-17 [facility] ersity of 21:39:00 [facility] COLONOSCOPY 2020-04-17 [facility] of 17:25:00 [facility] COLONOSCOPY (ENDO) 2020-04-17 [facility] of 16:28:15 [facility] BASIC METABOLIC PANEL (NA, K, CL, 2020-04-17 [facility] of CO2, GLUCOSE, BUN, CREATININE, CA) 11:37:00 [facility] CBC WITH DIFF 2020-04-17 [facility] of 11:37:00 [facility] POCT GLUCOSE (AUTOMATED) 2020-04-17 [facility] ersity of 02:02:00 [facility] POCT GLUCOSE (AUTOMATED) 2020-04-16 [facility] ersity of 23:42:00 [facility] CBC WITH DIFF 2020-04-16 [facility] of 19:53:00 [facility] POCT GLUCOSE (AUTOMATED) 2020-04-16 [facility] ersity of 18:50:00 [facility] POCT GLUCOSE (AUTOMATED) 2020-04-16 [facility] ersity of 15:17:00 [facility] PREPARE PACKED RBC 2020-04-16 [facility] of 11:52:01 [facility] BASIC METABOLIC PANEL (NA, K, CL, 2020-04-16 [facility] of CO2, GLUCOSE, BUN, CREATININE, CA) 10:47:00 [facility] CBC WITH DIFF 2020-04-16 [facility] of 10:47:00 [facility] POCT GLUCOSE (AUTOMATED) 2020-04-16 [facility] ersity of 03:36:00 [facility] POCT GLUCOSE (AUTOMATED) 2020-04-16 [facility] ersity of 00:07:00 [facility] CBC WITH DIFF 2020-04-15 [facility] of 21:44:00 [facility] EGD (ENDO) 2020-04-15 [facility] of 19:02:31 [facility] ESOPHAGOGASTRODUODENOSCOPY 2020-04-15 Marciano Mccoy [facility] rsity of 18:59:00 [facility] HB ABO GROUPING 2020-04-15 [facility] of 15:30:00 [facility] POCT GLUCOSE (AUTOMATED) 2020-04-15 [facility] ersity of 14:17:00 [facility] BASIC METABOLIC PANEL (NA, K, CL, 2020-04-15 [facility] of CO2, GLUCOSE, BUN, CREATININE, CA) 07:50:00 [facility] CBC WITH DIFF 2020-04-15 [facility] of 07:50:00 [facility] COVID-19 (ID NOW RAPID TESTING) 2020-04-15 [facility] of 05:42:00 [facility] LAB ONLY COVID INTERPRETATION 2020-04-15 [facility] iversity of 05:42:00 [facility] PREPARE PACKED RBC 2020-04-15 [facility] of 03:45:44 [facility] POCT GLUCOSE (AUTOMATED) 2020-04-15 [facility] ersity of 03:45:00 [facility] POCT GLUCOSE (AUTOMATED) 2020-04-15 [facility] ersity of 00:08:00 [facility] CBC WITH DIFF 2020-04-14 [facility] of 21:37:00 [facility] POCT GLUCOSE (AUTOMATED) 2020-04-14 [facility] ersity of 19:15:00 [facility] POCT GLUCOSE (AUTOMATED) 2020-04-14 [facility] ersity of 16:08:00 [facility] BASIC METABOLIC PANEL (NA, K, CL, 2020-04-14 [facility] of CO2, GLUCOSE, BUN, CREATININE, CA) 12:34:00 [facility] POCT GLUCOSE (AUTOMATED) 2020-04-14 [facility] ersity of 06:08:00 [facility] POCT GLUCOSE (AUTOMATED) 2020-04-14 [facility] ersity of 02:19:00 [facility] POCT GLUCOSE (AUTOMATED) 2020-04-13 [facility] ersity of 22:26:00 [facility] CBC WITH DIFF 2020-04-13 [facility] of 21:38:00 [facility] POCT GLUCOSE (AUTOMATED) 2020-04-13 [facility] ersity of 18:30:00 [facility] XR KNEE 3 VW RIGHT 2020-04-13 [facility] of 18:00:00 [facility] POCT GLUCOSE (AUTOMATED) 2020-04-13 [facility] ersity of 15:01:00 [facility] BASIC METABOLIC PANEL (NA, K, CL, 2020-04-13 [facility] of CO2, GLUCOSE, BUN, CREATININE, CA) 11:45:00 [facility] CBC WITH DIFF 2020-04-13 [facility] of 11:45:00 [facility] POCT GLUCOSE (AUTOMATED) 2020-04-13 [facility] ersity of 01:46:00 [facility] PREPARE PACKED RBC 2020-04-13 [facility] of 00:16:50 [facility] POCT GLUCOSE (AUTOMATED) 2020-04-12 [facility] ersity of 23:32:00 [facility] HB ABO GROUPING 2020-04-12 [facility] of 21:45:00 [facility] CBC WITH DIFF 2020-04-12 [facility] of 20:28:00 [facility] POCT GLUCOSE (AUTOMATED) 2020[facility]04-12 [facility] ersity of 18:52:00 [facility] POCT GLUCOSE (AUTOMATED) 2020-04-12 [facility] ersity of 15:28:00 [facility] BASIC METABOLIC PANEL (NA, K, CL, 2020-04-12 [facility] of CO2, GLUCOSE, BUN, CREATININE, CA) 09:51:00 [facility] CBC WITH DIFF 2020-04-12 [facility] of 09:51:00 [facility] POCT GLUCOSE (AUTOMATED) 2020-04-12 [facility] ersity of 02:38:00 [facility] POCT GLUCOSE (AUTOMATED) 2020-04-11 [facility] ersity of 23:21:00 [facility] POCT GLUCOSE (AUTOMATED) 2020-04-11 [facility] ersity of 19:30:00 [facility] POCT GLUCOSE (AUTOMATED) 2020-04-11 [facility] ersity of 14:32:00 [facility] BASIC METABOLIC PANEL (NA, K, CL, 2020-04-11 [facility] of CO2, GLUCOSE, BUN, CREATININE, CA) 10:20:00 [facility] CBC WITH DIFF 2020-04-11 [facility] of 10:20:00 [facility] POCT GLUCOSE (AUTOMATED) 2020-04-11 [facility] ersity of 03:29:00 [facility] POCT GLUCOSE (AUTOMATED) 2020-04-10 [facility], [facility] ersity of 22:35:00 [facility] XR CHEST 1 VW 2020-04-10 [facility] of 19:42:00 [facility] POCT GLUCOSE (AUTOMATED) 2020-04-10 [facility] ersity of 18:14:00 [facility] POCT GLUCOSE (AUTOMATED) 2020-04-10 [facility] ersity of 13:22:00 [facility] HEPATIC FUNCTION PANEL (00976) 2020-04-10 [facility] niversity of (ALB,T.PRO,BILI 12:12:00 [facility],BU/BC,ALT,AST,ALK PHOS) [place] BASIC METABOLIC PANEL (NA, K, CL, 2020-04-10 [facility] of CO2, GLUCOSE, BUN, CREATININE, CA) 12:12:00 [facility] CBC WITH DIFF 2020-04-10 [facility] of 12:12:00 [facility] POCT GLUCOSE (AUTOMATED) 2020-04-10 [facility] ersity of 03:46:00 [facility] POCT GLUCOSE (AUTOMATED) 2020-04-10 [facility] ersity of 00:18:00 [facility] XR KUB 2020-04-09 [facility] 11:59:58 [facility] BASIC METABOLIC PANEL (NA, K, CL, 2020-04-09 Tyrel [facility] of CO2, GLUCOSE, BUN, CREATININE, CA) 11:48:00 [facility] PROTHROMBIN TIME / INR 2020-04-09 [facility] of 11:48:00 [facility] FIBRINOGEN 2020-04-09 [facility] 11:48:00 [facility] MAGNESIUM 2020-04-09 Tyrel, [facility] of 11:48:00 [facility] POCT GLUCOSE (AUTOMATED) 2020-04-09 [facility] ersity of 03:47:00 [facility] BASIC METABOLIC PANEL (NA, K, CL, 2020-04-08 [place] [address], GLUCOSE, BUN, CREATININE, CA) 23:49:00 [facility] POCT GLUCOSE (AUTOMATED) 2020-04-08 Fred Mccoy [facility] ity of 22:57:00 [facility] URINALYSIS 2020-04-08 [facility] of 22:08:00 [facility] POTASSIUM, URINE RANDOM 2020-04-08 [facility] of 22:08:00 [facility] SODIUM, URINE RANDOM 2020-04-08 [facility], [facility] 22:08:00 [facility] OSMOLALITY URINE 2020-04-08 [facility], [place] of 22:08:00 [facility] POCT GLUCOSE (AUTOMATED) 2020-04-08 Fred Mccoy [facility] ity of 19:58:00 [facility] BASIC METABOLIC PANEL (NA, K, CL, 2020-04-08 [facility], [facility] CO2, GLUCOSE, BUN, CREATININE, CA) 15:53:00 [facility] BASIC METABOLIC PANEL (NA, K, CL, 2020-04-08 [facility], [facility] CO2, GLUCOSE, BUN, CREATININE, CA) 09:18:00 [facility] CBC WITHOUT DIFF 2020-04-08 [facility] of 09:18:00 [facility] PROTHROMBIN TIME / INR 2020-04-08 [facility] of 09:18:00 [facility] FIBRINOGEN 2020-04-08 [facility] of 09:18:00 [facility] MAGNESIUM 2020-04-[address] [facility] of 09:18:00 [facility] BASIC METABOLIC PANEL (NA, K, CL, 2020-04-08 [facility] CO2, GLUCOSE, BUN, CREATININE, CA) 02:32:00 [facility] POCT GLUCOSE (AUTOMATED) 2020-04-08 Fred Mccoy [facility] ity of 02:28:00 [facility] POCT GLUCOSE (AUTOMATED) 2020-04-08 Fred Mccoy [facility] ity of 01:45:00 [facility] BASIC METABOLIC PANEL (NA, K, CL, 2020-04-07 Tyrel [facility] CO2, GLUCOSE, BUN, CREATININE, CA) 20:13:00 [facility] CBC WITHOUT DIFF 2020-04-[address] [facility] of 20:13:00 [facility] MAGNESIUM 2020-04-[address] [facility] of 20:13:00 [facility] POCT GLUCOSE (AUTOMATED) 2020-04-07 MccoyFred nieves [facility] ity of 18:15:00 [facility] POCT GLUCOSE (AUTOMATED) 2020-04-07 [facility] of 14:22:00 [facility] CBC WITHOUT DIFF 2020-04-07 [facility] 07:16:00 [facility] BASIC METABOLIC PANEL (NA, K, CL, 2020-04-07 [facility] CO2, GLUCOSE, BUN, CREATININE, CA) 07:15:00 [facility] PROTHROMBIN TIME / INR 2020-04-07 [facility] 07:15:00 [facility] FIBRINOGEN 2020-04-07 [facility] of 07:15:00 [facility] POCT GLUCOSE (AUTOMATED) 2020-04-07 Fred Mccoy [facility] ity of 02:05:00 [facility] POCT GLUCOSE (AUTOMATED) 2020-04-06 Desmond Mccoylshan [facility] ity of 21:39:00 [facility] EKG-12 LEAD 2020-04-06 Doctor Unassigned, [place] of 20:14:31 [place] [facility] CBC WITHOUT DIFF 2020-04-06 Tyrel [facility] of 17:50:00 [facility] CBC WITHOUT DIFF 2020-04-06 [facility] of 14:45:00 [facility] POCT GLUCOSE (AUTOMATED) 2020-04-06 Fred Mccoy [facility] ity of 14:44:00 [facility] BASIC METABOLIC PANEL (NA, K, CL, 2020-04-06 [facility], [place] [address], GLUCOSE, BUN, CREATININE, CA) 09:20:00 [facility] CBC WITHOUT DIFF 2020-04-06 Tyrel [facility] of 09:20:00 [facility] PROTHROMBIN TIME / INR 2020-04-06 [facility] of 09:20:00 [facility] ACTIVATED PARTIAL THRMPLAS ELHAM 2020-04-06 Tyrel [facility] of 09:20:00 [facility] FIBRINOGEN 2020-04-06 [facility] of 09:20:00 [facility] CLOSTRIDIUM DIFFICILE TOXIN 2020-04-06 [facility] ersity of 06:44:00 [facility] PREPARE PACKED RBC 2020-04-06 Tyrel [facility] o f 04:48:05 [facility] BASIC METABOLIC PANEL (NA, K, CL, 2020-04-06 [facility], [facility] CO2, GLUCOSE, BUN, CREATININE, CA) 04:09:00 [facility] CBC WITHOUT DIFF 2020-04-06 Tyrel [facility] of 04:09:00 [facility] POCT GLUCOSE (AUTOMATED) 2020-04-06 [facility] of 02:34:00 [facility] US RETROPERITONEAL LIMITED 2020-04-06 [place], [facility] rs[facility] of 00:00:00 [facility] BASIC METABOLIC PANEL (NA, K, CL, 2020-04-05 Aldana, University of CO2, GLUCOSE, BUN, CREATININE, CA) 23:55:00 [facility] CBC WITHOUT DIFF 2020-04-05 [facility] 23:55:00 [facility] PHOSPHORUS 2020-04-05 Jeremy Javon [place] of 23:55:00 [facility] UREA NITROGEN, URINE RANDOM 2020-04-05 [facility], [facility] ersity of 21:03:00 [facility] SODIUM, URINE RANDOM 2020-04-05 [facility] 21:03:00 [facility] PROTEIN CREAT RATIO URINE RANDOM 2020-04-05 [facility], [facility] 21:03:00 [facility] INTACT PTH CALCIUM GROUP 2020-04-05 Javon Luna [facility] ity of 20:52:00 [facility] CBC WITHOUT DIFF 2020-04-05 [facility] 20:22:00 [facility] XR KUB 2020-04-05 [facility] 19:26:00 [facility] POCT GLUCOSE (AUTOMATED) 2020-04-05 [facility]ccoy, [facility] of 18:19:00 [facility] BASIC METABOLIC PANEL (NA, K, CL, 2020-04-05 [place], [facility] CO2, GLUCOSE, BUN, CREATININE, CA) 17:57:00 [facility] PREPARE PACKED RBC 2020-04-05 [facility] 16:58:07 [facility] FIBRINOGEN 2020-04-05 [facility] 14:36:00 [facility] LACTATE DEHYDROGENASE 2020-04-05 [facility] 14:36:00 [facility] POCT GLUCOSE (AUTOMATED) 2020-04-05 [facility] ity of 13:24:00 [facility] BASIC METABOLIC PANEL (NA, K, CL, 2020-04-05 Torito Sarah as [employer] of CO2, GLUCOSE, BUN, CREATININE, CA) 12:18:00 [facility] CBC WITHOUT DIFF 2020-04-05 Ottoniel Norwood [place] of 12:18:00 [facility] RETICULOCYTES AUTOMATED 2020-04-05 [facility] ty of 12:18:00 [facility] HAPTOGLOBIN, SERUM 2020-04-05 [facility] 06:17:00 [facility] HEPATIC FUNCTION PANEL ([id number]) 2020-04-05 [facility] of (ALB,T.PRO,BILI 06:17:00 [facility],BU/BC,ALT,AST,ALK PHOS) [place] BASIC METABOLIC PANEL (NA, K, CL, 2020-04-05 [facility] CO2, GLUCOSE, BUN, CREATININE, CA) 06:17:00 [facility] CBC WITHOUT DIFF 2020-04-05 [facility] 06:17:00 [facility] PROTHROMBIN TIME / INR 2020-04-05 [facility] of 06:17:00 [facility] FIBRINOGEN 2020-04-05 [facility] 06:17:00 [facility] POCT GLUCOSE (AUTOMATED) 2020-04-05 Fred Mccoy [facility] ity of 02:14:00 [facility] PREPARE PACKED RBC 2020-04-05 [facility] 01:41:43 [facility] POCT GLUCOSE (AUTOMATED) 2020-04-04 Fred Mccoy [facility] ity of 23:57:00 [facility] CBC WITHOUT DIFF 2020-04-04 [facility] 21:35:00 [facility] IR EMBOLIZATION ARTERIAL OR VENOUS 2020-04-04 [facility] HEMORRHAGE OR LYMPHATIC 21:06:25 [facility] dical EXTRAVASATION Branch POCT GLUCOSE (AUTOMATED) 2020-04-04 Fred Mccoy [facility] ity of 17:53:00 [facility] PREPARE PACKED RBC 2020-04-04 [facility] 15:57:52 [facility] CBC WITHOUT DIFF 2020-04-[address] [facility] of 15:06:00 [facility] POCT GLUCOSE (AUTOMATED) 2020-04-04 Fred Mccoy [facility] ity of 15:01:00 [facility] CBC WITHOUT DIFF 2020-04-04 Tyrel [facility] of 08:20:00 [facility] BASIC METABOLIC PANEL (NA, K, CL, 2020-04-04 [facility] of CO2, GLUCOSE, BUN, CREATININE, CA) 06:52:00 [facility] PROTHROMBIN TIME / INR 2020-04-04 [facility] of 06:52:00 [facility] FIBRINOGEN 2020-04-04 [facility] of 06:52:00 [facility] EXTRA TUBE LAV 2020-04-04 [facility] of 06:52:00 [facility] POCT GLUCOSE (AUTOMATED) 2020-04-04 [facility] ity of 02:12:00 [facility] EGD (ENDO) 2020-04-04 [facility] of 00:05:14 [facility] ESOPHAGOGASTRODUODENOSCOPY 2020-04-03 [facility] rsity of 23:56:00 [facility] CBC WITHOUT DIFF 2020-04-03 Aldana, [facility] 23:03:00 [facility] PREPARE PACKED RBC 2020-04-03 Aldana, [facility] 20:38:48 [facility] CBC WITHOUT DIFF 2020-04-03 Aldana, [facility] 20:20:00 [facility] BLOOD CULTURE SCREEN 2020-04-03 Lita [facility] of 20:20:00 [facility] CBC WITH DIFF 2020-04-03 Aldana, [place] of 18:23:00 [facility] POCT GLUCOSE (AUTOMATED) 2020-04-03 Fred Mccoy [facility] ity of 18:04:00 [facility] POCT GLUCOSE (AUTOMATED) 2020-04-03 [facility] ity of 14:19:00 [facility] CBC WITH DIFF 2020-04-03 Aldana, [place] of 10:52:00 [facility] PROTHROMBIN TIME / INR 2020-04-03 [facility] y of 10:52:00 [facility] FIBRINOGEN 2020-04-03 [facility] of 10:52:00 [facility] BLOOD CULTURE SCREEN 2020-04-03 Dorothy London [place] of 09:46:[address] [facility] [address] HEAD WO CONTRAST 2020-04-03 [facility] 08:13:57 [facility] HEPATIC FUNCTION PANEL (67089) 2020-04-03 [facility] (ALB,T.PRO,BILI 07:07:00 [facility],BU/BC,ALT,AST,ALK PHOS) [place] BASIC METABOLIC PANEL (NA, K, CL, 2020-04-03 [facility] of CO2, GLUCOSE, BUN, CREATININE, CA) 07:07:00 [facility] URINALYSIS 2020-04-03 [facility] 07:05:00 [facility] URINE CULTURE 2020-04-03 [facility] 07:05:00 [facility] HELICOBACTER PYLORI ANTIGEN, FECAL 2020-04-03 [facility] BY EIA 07:05:00 [facility] AC PANEL 20 + LACTIC ACID 2020-04-03 [facility] rsity of 06:02:00 [facility] DIFF CONSULT INTERPRETATION 2020-04-03 [facility] versity of 03:23:00 [facility] CBC WITH DIFF 2020-04-03 [facility] 03:23:00 [facility] POCT GLUCOSE (AUTOMATED) 2020-04-03 Fred Mccoy [facility] ity of 03:22:00 [facility] TRANSFUSE PACKED RBC 2020-04-03 [facility] 01:58:11 [facility] TRANSFUSE PACKED RBC 2020-04-03 [facility] of 01:54:48 [facility] GASTRIN 2020-04-03 [facility] 01:27:00 [facility] POCT GLUCOSE (AUTOMATED) 2020-04-03 Fred Mccoy [facility] ity of 01:26:00 [facility] PREPARE PACKED RBC 2020-04-02 [facility] 23:24:16 [facility] EGD (ENDO) 2020-04-02 Darius [facility] 22:51:18 [facility] ESOPHAGOGASTRODUODENOSCOPY 2020-04-02 [facility] rsity of 22:38:00 [facility] CBC WITHOUT DIFF 2020-04-02 [facility] 21:49:00 [facility] TRANSFUSE PACKED RBC 2020-04-02 [facility] of 21:16:59 [facility] PREPARE PACKED RBC 2020-04-02 [facility] of 20:27:33 [facility] CBC WITHOUT DIFF 2020-04-02 Tania Gaines [place] of 20:10:00 [facility] FIBRINOGEN 2020-04-02 [facility] of 20:10:00 [facility] XR CHEST 1 VW 2020-04-02 April [facility] of 19:49:56 [facility] MRSA / MSSA SCREEN BY PCR, NARES 2020-04-02 April [facility] of 18:16:00 [facility] COVID-19 (ID NOW RAPID TESTING) 2020-04-02 April [facility] of 18:16:00 [facility] LAB ONLY COVID INTERPRETATION 2020-04-02 Benjamin Chen iversity of 18:16:00 [facility] POCT GLUCOSE (AUTOMATED) 2020-04-02 Fred Mccoy [facility] ity of 17:58:00 [facility] CBC WITH DIFF 2020-04-02 [facility] of 15:10:00 [facility] INDIRECT ANTIGLOBULIN TEST 2020-04-02 [facility] rsity of 15:10:00 [facility] ABORH INVESTIGATION 2020-04-02 [facility] o f 15:10:00 [facility] IRON PANEL 2020-04-02 [facility] of 12:37:00 [facility] FERRITIN SERUM 2020-04-02 [facility] of 12:37:00 [facility] BASIC METABOLIC PANEL (NA, K, CL, 2020-04-02 [facility] of CO2, GLUCOSE, BUN, CREATININE, CA) 12:36:00 [facility] POCT GLUCOSE (AUTOMATED) 2020-04-02 [facility], Kirsten Univers ity of 03:05:00 [facility] POCT GLUCOSE (AUTOMATED) 2020-04-01 [facility], [facility]irsten Univers ity of 23:24:00 [facility] CLOSTRIDIUM DIFFICILE TOXIN 2020-04-01 [facility], [facility] Univ ersity of 20:34:00 [facility] POCT GLUCOSE (AUTOMATED) 2020-04-01 [facility], [facility]irsten Univers ity of 18:37:00 [facility] POCT GLUCOSE (AUTOMATED) 2020-04-01 [facility], [facility] ity of 14:19:00 [facility] BASIC METABOLIC PANEL (NA, K, CL, 2020-04-01 [facility] of CO2, GLUCOSE, BUN, CREATININE, CA) 11:10:00 [facility] CBC WITH DIFF 2020-04-01 Maria Stein [facility] of 11:10:00 [facility] POCT GLUCOSE (AUTOMATED) 2020-04-01 [facility], [facility] ity of 03:25:00 [facility] POCT GLUCOSE (AUTOMATED) 2020-03-31 [facility], [facility] Univers ity of 14:30:00 [facility] HEPATIC FUNCTION PANEL ([id number]) 2020-03-31 Maria Stein [facility] niversity of (ALB,T.PRO,BILI 12:08:00 [facility],BU/BC,ALT,AST,ALK PHOS) [place] BASIC METABOLIC PANEL (NA, K, CL, 2020-03-31 [facility] of CO2, GLUCOSE, BUN, CREATININE, CA) 12:08:00 [facility] CBC WITH DIFF 2020-03-31 Maria Stein [facility] of 12:08:00 [facility] POCT GLUCOSE (AUTOMATED) 2020-03-31 [facility], [facility] ity of 03:41:00 [facility] POCT GLUCOSE (AUTOMATED) 2020-03-30 [facility], [facility] ity of 23:18:00 [facility] US ABDOMEN COMPLETE 2020-03-30 [facility] o f 20:21:00 [facility] POCT GLUCOSE (AUTOMATED) 2020-03-30 [facility], [facility] ity of 18:17:00 [facility] POCT GLUCOSE (AUTOMATED) 2020-03-30 [facility], [facility] ity of 14:30:00 [facility] BASIC METABOLIC PANEL (NA, K, CL, 2020-03-30 [facility] of CO2, GLUCOSE, BUN, CREATININE, CA) 11:07:00 [facility] CBC WITH DIFF 2020-03-30 Maria Stein [facility] of 11:07:00 [facility] POCT GLUCOSE (AUTOMATED) 2020-03-30 [facility], [facility] ity of 02:55:00 [facility] POCT GLUCOSE (AUTOMATED) 2020-03-29 [facility], [facility] ity of 23:57:00 [facility] CT HEAD WO CONTRAST 2020-03-29 Maria Stein [facility] o f 22:25:19 [facility] POCT GLUCOSE (AUTOMATED) 2020-03-29 [facility], [facility] ity of 20:24:00 [facility] POCT GLUCOSE (AUTOMATED) 2020-03-29 [facility], [facility] ity of 16:23:00 [facility] CBC WITH DIFF 2020-03-29 [facility] of 10:11:00 [facility] BASIC METABOLIC PANEL (NA, K, CL, 2020-03-29 [facility] of CO2, GLUCOSE, BUN, CREATININE, CA) 10:10:00 [facility] POCT GLUCOSE (AUTOMATED) 2020-03-29 [facility], [facility] Univers ity of 03:44:00 [facility] URINALYSIS 2020-03-29 [facility] of 01:21:00 [facility] URINE CULTURE 2020-03-28 [facility] of 21:43:00 [facility] XR CHEST 1 VW 2020-03-28 [facility] of 20:29:00 [facility] BLOOD CULTURE SCREEN 2020-03-28 [facility] of 13:51:00 [facility] BASIC METABOLIC PANEL (NA, K, CL, 2020-03-28 [facility] of CO2, GLUCOSE, BUN, CREATININE, CA) 11:02:00 [facility] DIFF CONSULT INTERPRETATION 2020-03-28 [facility] ersity of 11:02:00 [facility] CBC WITH DIFF 2020-03-28 [facility] of 11:02:00 [facility] MAGNESIUM 2020-03-28 [facility] of 11:02:00 [facility] POCT GLUCOSE (AUTOMATED) 2020-03-28 [facility], [facility] ity of 04:42:00 [facility] DERMATOPATHOLOGY TISSUE EXAM 2020-03-28 Froy Pratt Uni versity of 00:00:00 [facility] BASIC METABOLIC PANEL (NA, K, CL, 2020-03-27 neftali [facility] of CO2, GLUCOSE, BUN, CREATININE, CA) 23:05:00 [facility] CBC WITH DIFF 2020-03-27 Damon [facility] of 23:05:00 [facility] FL MODIFIED BARIUM SWALLOW 2020-03-27 Damon Count [facility] rs[facility] of 22:39:07 [facility] POCT GLUCOSE (AUTOMATED) 2020-03-27 [facility], [facility] ity of 18:47:00 [facility] POCT GLUCOSE (AUTOMATED) 2020-03-27 [facility], [facility] ity of 15:52:00 [facility] POCT GLUCOSE (AUTOMATED) 2020-03-27 [facility], [facility] ity of 04:07:00 [facility] POCT GLUCOSE (AUTOMATED) 2020-03-26 [facility], [facility] ity of 23:46:00 [facility] HB ABO GROUPING 2020-03-26 [facility] 20:15:00 [facility] POCT GLUCOSE (AUTOMATED) 2020-03-26 [facility], [facility] ity of 19:28:00 [facility] POCT GLUCOSE (AUTOMATED) 2020-03-26 [facility], [facility] ity of 15:11:00 [facility] URINE CULTURE 2020-03-26 Gómez, [facility] of 11:50:00 [facility] URINALYSIS 2020-03-26 [facility] of 11:49:00 [facility] BLOOD CULTURE SCREEN 2020-03-26 Gómez, [facility] of 10:28:00 [facility] BLOOD CULTURE SCREEN 2020-03-26 Gómez, [facility] of 10:21:00 [facility] FOLATE 2020-03-26 [facility] of 10:18:00 [facility] THYROID STIMULATING HORMONE 2020-03-26 Gómze, [facility] ersity of 10:18:00 [facility] HEPATIC FUNCTION PANEL ([id number]) 2020-03-26 Bennett Gómez niversity of (ALB,T.PRO,BILI 10:18:00 [facility],BU/BC,ALT,AST,ALK PHOS) [place] BASIC METABOLIC PANEL (NA, K, CL, 2020-03-26 Gómez, [facility] of CO2, GLUCOSE, BUN, CREATININE, CA) 10:18:00 [facility] URIC ACID 2020-03-26 Gómez, [facility] of 10:18:00 [facility] MAGNESIUM 2020-03-26 Gómez, [facility] of 10:18:00 [facility] VITAMIN B12, LEVEL 2020-03-26 Gómez, [facility] of 10:18:00 [facility] C-REACTIVE PROTEIN 2020-03-26 Gómez, [facility] of 10:17:00 [facility] PROTHROMBIN TIME / INR 2020-03-26 [facility], [facility] of 10:16:00 [facility] ACTIVATED PARTIAL THRMPLAS ELHAM 2020-03-26 Rico, [place] [facility] niversity of 10:16:00 [facility] SEDIMENTATION RATE 2020-03-26 Gómez, [facility] of 10:14:00 [facility] DIFF CONSULT INTERPRETATION 2020-03-26 Gómez, [facility] ersity of 10:14:00 [facility] CBC WITH DIFF 2020-03-26 Gómez, [facility] of 10:14:00 [facility] GLYCOSYLATED HEMOGLOBIN (A1C) 2020-03-26 Rico [place] [facility] iversity of 10:13:00 [facility] COVID-19 (ID NOW RAPID TESTING) 2020-03-26 [facility] of 10:01:00 [facility] LAB ONLY COVID INTERPRETATION 2020-03-26 Rico [facility] iversity of 10:01:00 [facility] AUTHORIZATION FOR RELEASE OF PHI 2020-03-26 Doctor Unassign ed, [place] of 06:01:00 [place] [facility] POCT GLUCOSE (AUTOMATED) 2020-03-26 Kirsten Horne it of 04:55:00 [facility] HOSPITAL ADMISSION 2020-03-25 Doctor Unassigned, [place] of 06:01:00 [place] [facility] MAGNESIUM 2020-01-24 Tracey Lee [facility] of 07:35:00 [facility] BASIC METABOLIC PANEL (NA, K, CL, 2020-01-24 [facility] [place] of CO2, GLUCOSE, BUN, CREATININE, CA) 07:35:00 [facility] CBC WITH DIFF 2020-01-24 [facility] of 07:35:00 [facility] BASIC METABOLIC PANEL (NA, K, CL, 2020-01-23 Luke, [facility] of CO2, GLUCOSE, BUN, CREATININE, CA) 21:41:00 [facility] IR INTRAVASCULAR STENT WITHOUT 2020-01-23 Patricia Rose [facility] DISTAL EMBOLIC PROTECTION 16:58:00 [facility] TYPE AND SCREEN 2020-01-23 Patricia Rose [place] of 14:45:00 [facility] ASSIGNMENT OF BENEFITS 2020-01-22 Doctor Unassigned, Univer sity of 17:33:04 [place] [facility] ASSIGNMENT OF BENEFITS 2020-01-15 Doctor Unassigned, Univer sity of 15:05:38 [place] [facility] CBC WITH DIFF 2019-11-22 [facility] of 16:36:00 [facility] MAGNESIUM 2019-11-22 [facility] of 09:28:00 [facility] BASIC METABOLIC PANEL (NA, K, CL, 2019-11-22 [facility], [facility] of CO2, GLUCOSE, BUN, CREATININE, CA) 09:28:00 [facility] CBC WITH DIFF 2019-11-22 byron Lee [facility] of 09:28:00 [facility] IR EMBOLIZATION CENTRAL NERVOUS 2019-11-21 Patricia Rose [facility] 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 18:16:59 [facility] [place] POCT ACT LOW RANGE 2019-11-21 Patricia Rose [facility] 15:37:00 [facility] CBC WITH DIFF 2019-11-21 [facility] of 14:15:00 [facility] PROTHROMBIN TIME / INR 2019-11-21 [facility] y of 14:15:00 [facility] BASIC METABOLIC PANEL (NA, K, CL, 2019-11-21 [facility] of CO2, GLUCOSE, BUN, CREATININE, CA) 14:14:00 [facility] HB ABO GROUPING 2019-11-21 Maico [facility] of 13:43:00 [facility] Plan of Care Planned Activity Planned Date Details Comments Source Future Scheduled 2020-12-[address] [facility] - Test 00:00:00 (#1) [code = Medical Center INFLUENZA VACCINE (#1)] Future Scheduled 2020-04-12 [...] Date/Time Type Type Clinicians Facility Department ID 2021-02-08 Emergency [facility] [id number] Univers 17:41:20 ity [facility] 2021-02-08 Inpatient U [facility] [id number] Univers 11:14:20 ity [facility] 2021-01-14 Inpatient [facility] [id number] [facility] 14:24:15 2020-05-07 2020-05-07 Orders Doctor SHILPA 1.2.840.114 [id number] 00:00:00 00:00:00 Only Unassigned, KAILYN [id number] [place] [facility] 4.2.7.2.686 [id number] 2020-05-07 2020-05-07 Orders Doctor SHILPA 1.2.840.114 [id number] Univers 00:00:00 00:00:00 Only Unassigned, KAILYN [id number] ity of [place] [facility] 4.2.7.2.[address] Ke[phone] [facility] [address] 2020-05-03 2020-05-03 Transition Jaz Castillo 1.2.840.114 [id number] 00:00:00 00:00:00 of Care Ermias Velasuqez Ly [id number] [place] 4.2.7.2.686 [id number] 403 2020-05-03 2020-05-03 Transition Jaz Castillo 1.2.840.114 [id number] [facility] 00:00:00 00:00:00 of Care Ermias Velasquez Ly [id number] [place] [id number] [facility] [address] 2020-04-26 2020-05-02 [facility] 1.2.840 .114 [id number] 19:53:00 21:15:00 Encounter Ezzo, [facility] [id number] [place] 4.2.7.2.686 [place] [phone] [place] [address] ([facility]) 2020-04-26 2020-05-02 [facility] 1.2.840 .114 [id number] Univers 19:53:00 21:15:00 Encounter Ezzo, [facility] [id number] [place]y [place] [phone] [facility] [address] ([facility]) 2020-04-19 2020-04-19 Transition Jaz Castillo 1.2.840.114 [id number] 00:00:00 00:00:00 of Care Ermias Reyesy [id number] [place] 4.2.7.2.686 [id number] 403 2020-04-19 2020-04-19 Patient Tony [facility] 1.2.840.114 [id number] 00:00:00 00:00:00 Outreach Rojelio PRIMARY [id number] [place] [facility] 4.2.7.2.686 PAVILLION [id number] 2020-04-19 2020-04-19 Transition Jaz Castillo 1.2.840.114 [id number] Univers 00:00:00 00:00:00 of Care Ermias Reyesy [id number] [place] [id number] [facility] [address] 2020-04-19 2020-04-19 Patient Tony [facility] 1.2.840.114 [id number] Univers 00:00:00 00:00:00 Outreach Rojelio PRIMARY [id number] i ty of [place] PAV[place]ION [id number] De dical [address] 2020-03-25 2020-04-18 [facility] Kirsten Sharp 1.2.8 40.114 [id number] 20:15:00 20:11:00 Encounter Fred Mccoy [id number] [facility] 4.2.7.2.686 [id number] [facility] 2020-03-25 2020-04-18 [facility] 1.2.8 40.114 [id number] Univers 20:15:00 20:11:00 Encounter Fred Mccoy [id number] ity of [facility] 4.2.7.2.686 Destinee Howard G [id number] Medical [address] 2020-04-02 2020-04-02 Anesthesia Rissa [facility] 1.2.840.114 [id number] 16:49:00 17:43:00 Abhinav Lionel ICAL [id number] SCIENCES 4.2.7.2.686 BLDG [id number] 2020-04-02 2020-04-02 Anesthesia [facility] 1.2.840.114 [id number] Univers 16:49:00 17:43:00 Abhinav Flowers ICAL [id number] ity of SCIENCES 4.2.7.2.686 Keagan as BLDG [id number] [place] [address] Branch 2020-03-25 2020-03-25 Telephone Khai Carrasco [facility] 1.2.840.114 [id number] 00:00:00 00:00:00 [facility] [id number] [place] 4.2.7.2.686 Guerra [id number] [place] [address] Office Building 2020-03-25 2020-03-25 Telephone Khai Carrasco [facility] 1.2.840.114 [id number] Univers 00:00:00 00:00:00 [facility] [id number] it y [place] [id number] [facility] [address] [place] Office Building 2020-02-01 2020-02-01 [facility]patient [facility] [id number] Univers 09:30:00 09:30:00 BILME [id number] ity [facility] 2020-02-01 2020-02-01 Outpatient Gur[facility] [id number] Univers 09:30:00 09:30:00 BILAL ity [facility] 2020-01-25 2020-01-25 Transition Jaz Castillo 1.2.840.114 [id number] 00:00:00 00:00:00 of Care Ermias Reyesy 350.1.13.10 [place] 4.2.7.2.686 [id number] 2020-01-25 2020-01-25 Transition Jaz Castillo 1.2.840.114 [id number] Univers 00:00:00 00:00:00 of Care Ermias A Ly 350.1.13.10 ity of [place] [id number] [place] [address] Branch 2020-01-23 2020-01-24 Hospital Unknown, Attending [facility] 1.2.84 0.114 [id number] 10:26:00 11:59:00 Encounter Khai Carrasco [facility] 350.1.13. 10 [place] 4.2.7.2.686 Guerra [id number] [place] [address] ([facility]) 2020-01-23 2020-01-24 Hospital Unknown, Attending [place] 1.2.84 0.114 [id number] Univers 10:26:00 11:59:00 Encounter Khai Carrasco [facility] 350.1.13. 10 ity of [place] 4.2.7.2.686 Catalino Cancino Guerra [phone] [place] [address] Branch ([facility]) 2020-01-24 2020-01-24 Telephone Khai Carrasco [facility] 1.2.840.114 [id number] 00:00:00 00:00:00 [facility] [id number] [place] 4.2.7.2.686 Guerra [phone] Medical [facility] Office Building 2020-01-24 2020-01-24 Telephone Khai Carrasco [facility] 1.2.840.114 [id number] Univers 00:00:00 00:00:00 [facility] [id number] it y of [place] 4.2.7.2.686 Isidro Guerra [id number] [facility] [address] Office Building 2020-01-23 2020-01-23 Outpatient [facility] [id number] Univers 11:00:00 11:00:00 PATRICIA [id number] ity [facility] 2020-01-23 2020-01-23 Outpatient R MILTON [facility] [id number] Univers 11:00:00 11:00:00 PATRICIA ity [facility] 2020-01-22 2020-01-22 Outpatient R [facility] [id number] Univers 13:00:00 13:00:00 [id number] ity [facility] 2020-01-22 2020-01-22 Outpatient R KHAI CARRASCO [facility] [id number] Univers 13:00:00 13:00:00 ity [facility] 2020-01-22 2020-01-22 Underwear Hemmer Carlos Vargas [facility] 1.2.840.114 [id number] 12:34:09 12:49:09 Visit Lab Main José Miguel 350.1.13.10 [place] 4.2.7.2.686 Professio [phone] [address] 2020-01-22 2020-01-22 Underwear Hemmer Carlos Vargas Lab Main [facility] 1.2.8 40.114 [id number] Univers 12:34:09 12:49:09 Visit Khai Carrasco 350.1.13.1 0 ity of [place] Profess[place] [id number] De dical [address] 2020-01-22 2020-01-22 Orders Doctor SHILPA 1.2.840.114 [id number] 00:00:00 00:00:00 Only Unassigned, KAILYN 350.1.13.10 [place] [facility] 4.2.7.2.686 [id number] [facility] 2020-01-22 2020-01-22 Orders Doctor SHILPA 1.2.840.114 [id number] Univers 00:00:00 00:00:00 Only Unassigned, KAILYN 350.1.13.10 ity of [place] [facility] 4.2.7.2.686 Keagan as [id number] [address] 2020-01-17 2020-01-17 Underwear Hemmer [facility] UNIVERSIT 1.2.840.114 [id number] 08:19:12 08:49:12 Visit Y HEALTH [id number] CLINICS 4.2.7.2.686 [id number] [facility] 2020-01-17 2020-01-17 Underwear Hemmer [facility] UN[facility]ERS[facility] 1.2.840.114 [id number] Univers 08:19:12 08:49:12 Visit Patricia Rose Y HEALTH 350.1.13.1 0 ity of CLIN[place] [id number] [address] 2020-01-17 2020-01-17 Outpatient R [facility] [id number] Univers 08:30:00 08:30:00 [id number] ity of [facility] 2020-01-17 2020-01-17 Outpatient R MILTON [facility] [id number] Univers 08:30:00 08:30:00 PATRICIA brown [facility] 2020-01-15 2020-01-15 Underwear Hemmer Vls-Lab [facility] 1.2.840.114 [id number] 12:07:39 12:22:39 Visit SPECIALTY 350.1.13.10 CARE 4.2.7.2.686 CENTER AT [id number] FRANCISCO JAVIER [address] [place] [address] 2020-01-15 2020-01-15 Underwear Hemmer Vls-Lab [facility] 1.2.840.114 [id number] Univers 12:07:39 12:22:39 Visit Khai Carrasco SPECIALTY 350.1.13. 10 ity of [facility] 4.2.7.2.686 [facility] CENTER AT [phone] De judiekatya [address] 2020-01-15 2020-01-15 Outpatient R [facility] [id number] Univers 10:30:00 10:30:00 luci [facility] 2020-01-15 2020-01-15 [facility] [id number] Univers 10:30:00 10:30:00 PATRICIA luci [facility] 2020-01-15 2020-01-15 Laboratory Only, [facility] 1..840.114 [id number] 10:08:01 10:23:01 Only Test [place] 350.1.13.10 [place] 4.2.7.2.686 [place] [id number] [facility] 2020-01-15 2020-01-15 Laboratory Only, Adc Test [facility] 1.2.840. 114 [id number] Univers 10:08:01 10:23:01 Only Patricia Rose 350.1.13.1 0 ity [facility] 4.2.7.2.686 [facility] [phone] [address] 2020-01-15 2020-01-15 Orders Doctor MASSEY 1.2.840.114 [id number] 00:00:00 00:00:00 Only Unassigned, KAILYN 350.1.13.10 [facility] 4.2.7.2.686 [id number] [id number] 2020-01-15 2020-01-15 Orders Doctor SHILPA 1.2.840.114 [id number] Univers 00:00:00 00:00:00 Only Unassigned, KAILYN 350.1.13.10 ity of [facility] 4.2.7.2.686 Keagan as [phone] [address] 2020-01-08 2020-01-08 Office Khai Carrasco RIJAYESH 1.2.840.114 [id number] 10:52:01 16:03:43 Visit [facility] 350.1.13.10 [place] 4.2.7.2.686 [place] [id number] [place] [address] Office Building 2020-01-08 2020-01-08 Office Khai Carrasco RIJAYESH 1.2.840.114 [id number] Univers 10:52:01 16:03:43 Visit [facility] 350.1.13.10 [place] [id number] [address] Office Building 2020-01-08 2020-01-08 Outpatient R DANILOKHAI [facility] [id number] [id number]-20 Univers 11:15:00 11:15:00 [id number] ity of [facility] 2020-01-08 2020-01-08 Outpatient R DANLIO KHAI [facility] [id number] Univers 11:15:00 11:15:00 ity of [facility] 2020-01-05 2020-01-05 Telephone Khai Carrasco [facility] 1.2.840.114 [id number] Univers 00:00:00 00:00:00 [facility] 350.1.13.10 [place] [id number] [address] Office Building 2020-01-01 2020-01-01 Outpatient R DANILOKHAI [facility] [id number] 14P-20 Univers 11:00:00 11:00:00 [id number] ity [facility] 2020-01-01 2020-01-01 Outpatient R DANILO KHAI [facility] [id number] Univers 11:00:00 11:00:00 ity [facility] 2019-11-24 2019-11-24 Transition Jaz Castillo 1.2.840.114 [id number] Univers 00:00:00 00:00:00 of Care Ermias Ly 350.1.13.10 [place] [phone] [address] 2019-11-21 2019-11-23 [facility] Ortega Álvarez [facility] 1.2.84 0.114 [id number] Univers 13:47:00 14:25:00 Encounter Benjamin Nina [facility] 350.1.13.10 ity of [place] 4.2.7.2.686 Mook RedCatalino perry Mandi [place] [phone] [address] ([facility]) 2019-11-21 2019-11-21 [facility] [id number] 4P-20 Univers 09:00:00 09:00:00 PATRICIA [id number] ity [facility] 2019-11-21 2019-11-21 [facility] [id number] Univers 09:00:00 09:00:00 [facility] 2019-11-16 2019-11-16 [facility] [id number] Univers 11:00:00 11:00:00 [facility] 2019-11-16 2019-11-16 Outpatient R [facility] [id number] Univers 10:15:00 10:15:[facility] 2019-11-16 2019-11-16 Laboratory Only, Clc Bls Test [facility] 1.2. 840.114 [id number] Univers 09:20:36 09:35:36 Only [facility] 350.1.13.10 [place] [phone] [address] Office Building 2019-11-16 2019-11-16 Underwear Hemmer Draw, Clc-Bls Lab [facility] 1.2.8 40.114 [id number] Univers 09:20:09 09:35:09 Visit [facility] 350.1.13.10 [place] [id number] [address] Office Building 2019-11-15 2019-11-15 Telephone [facility] 1.2.840.114 [id number] Univers 00:00:00 00:00:00 [facility] 350.1.13.10 i [place] [id number] [address] Office Building 2019-11-06 2019-11-06 [facility] 1.2.452.760 [id number] Univers 00:00:00 00:00:00 Management [facility] 350.1.13.10 [place] [id number] [address] Office Building 2019-10-30 2019-10-30 Office Danilo Khai [facility] 1.2.840.114 [id number] Univers 09:42:30 10:19:11 Visit India Hanson 350.1.13.10 it y [place] [id number] [address] Office Building 2019-10-30 2019-10-30 Outpatient KHAI LUU [facility] [id number] Univers 10:00:00 10:00:00 ity of [facility] 2019-09-07 2019-09-07 Outpatient KHAI COOK [facility] [id number] [facility] 00:00:00 00:00:00 2019-09-06 2019-09-06 [facility] [id number] [facility] 00:00:00 00:00:00 2019-09-06 2019-09-06 Outpatient [facility] [id number] [facility] 00:00:00 00:00:00 2019-09-06 2019-09-06 Outpatient [facility] [id number] [facility] 00:00:00 00:00:00 2019-08-30 2019-08-30 Outpatient [facility] [id number] [facility] 00:00:00 00:00:00 2019-07-04 2019-07-04 [facility] [id number] [facility] 00:00:00 00:00:00 [id number] Results Test Description Test Time Test Comments Results Result Comments Source POCT GLUCOSE (AUTOMATED) 2020-05-03 03:04:00 Test Item Value Reference Range Interpretation Comme nts POCT GLU (test code = 8656022886) 151 mg/dL 70-110 H Lab Interpretation (test code = 42810-1) Abnormal [facility] GLUCOSE (AUTOMATED)2020-05-03 00:01:00 Test Item Value Reference Range Interpretation Comments POCT GLU (test code = 8551505256) 115 mg/dL 70-110 H Lab Interpretation (test code = Abnormal 17030-8) [facility]ID [facility]2020-05-02 23:47:00 Test Item Value Reference Range Interpretation Comments SARS-CoV-2 Rapid ID NOW Not Detected Not Detected (test code = 38732-4) JACI (test code = JACI) ID NOW COVID-19 Assay is an isothermal nucleic acid amplification test intended for the qualitative detection of nucleic acid from SARS-CoV-2 viral RNA in nasopharyngeal (INNER DIAMETER GRINDER TOOL) specimens. It is used under Emergency Use Authorization (EUA) by FDA. The limit of detection (LOD) of the assay is 125 Genome Equivalents/mL. A positive result is indicative of the presence of SARS-CoV-2 RNA. ?Clinical correlation with patient history and other diagnostic information is necessary to determine patient infection status. A negative (Not Detected) result does not preclude SARS-CoV-2 infection. In patients with clinical symptoms and other tests that are consistent with SARS-CoV-2 infection, negative results should be treated as presumptive negative and a new specimen should be tested with alternative PCR molecular test. Invalid: Please collect a new specimen for repeat patient testing if clinically indicated. Lab Interpretation Normal (test code = 09605-3) [facility] GLUCOSE (AUTOMATED)2020-05-02 19:14:00 Test Item Value Reference Range Interpretation Comments POCT GLU (test code = 8959667001) 126 mg/dL 70-110 H Lab Interpretation (test code = Abnormal 44225-8) [facility] GLUCOSE (AUTOMATED)2020-05-02 18:59:00 Test Item Value Reference Range Interpretation Comments POCT GLU (test code = 4053275036) 119 mg/dL 70-110 H Lab Interpretation (test code = Abnormal 38903-6) [facility] GLUCOSE (AUTOMATED)2020-05-02 16:10:00 Test Item Value Reference Range Interpretation Comments POCT GLU (test code = 5958062965) 148 mg/dL 70-110 H Lab Interpretation (test code = Abnormal 50385-2) [facility]2020-05-02 03:03:00 Test Item Value Reference Range Interpretation Comments POCT GLU (test code = 1668915369) 135 mg/dL 70-110 H Lab Interpretation (test code = Abnormal 87314-1) [facility] COVID PGHMRAATIXOYGH8730-22-68 19:44:00COVID DMT InterpretationInterpretation/Recommendations: Molecular NAAT Tests for Active Infection with the SARS-CoV-2 Virus: This patient has a history of testing negative on multiple occasions for ooaQKMQ-EkT-0 virus that causes COVID-19 illness, with no prior history of a positive result. The current test results are also negative. This most likely indicates that the patient does not have an active infection with the SARS-CoV-2 virus, especially if all of these tests coincide with the patient's current presentation. However, infection is not completely ruled out as the false negative rate for molecular NAAT testing using a nasopharyngeal sample can be up to 30%, mostly dependent on the timing of sample collection in relation to illness onset and any deficiencies in sampling techniques. If the patient has symptoms concerning for COVID-19 illness, a repeat NAAT test (PCR, Rapid ID Now, etc.) should be performed, at which time the SARS-CoV-2 virus - if present - may have reached a detectable vir al load (usually peaking by the end of the first week of symptoms). Tests for IgM and/or IgG Antibodies to SARS-CoV-2 Virus: Testing for IgM and IgG antibodies 1-3 weeks after illness onset will indicate whether the patient has produced antibodies to the virus. At this time, it is not known if the pr oduction of antibodies - specifically IgG antibodies - indicates whether the patient is immune to future infections with the SARS-CoV-2 virus. Interpretation Result Comments:These interpretation comments are based upon all COVID-19 testing the patient has had at [facility], including molecular NAAT testing (more commonly known as PCR testing and Rapid ID Now testing) and antibody testing. It does not take into account any testing that a patient has had outside of the [facility] medical record. [facility] LABORATORY SERVICESCOVID ResultsSARS- CoV-2 NAAT (no units) ? ? Date ? Value ? 01/15/2020 ? Not Detected ? ? ? 11/16/2019 ? Not Detected ? SARS-CoV-2 Rapid ID NOW (no units) ? ? Date ? Value ? 04/26/2020 ? Not Detected ? ? ? 04/14/2020 ? Not Detected ? ? ? 04/02/2020 ? Not Detected ? ? ? 03/26/2020 ? Not Detected ? ? ? 01/22/2020 ? Not Detected ? [facility] SERVICESUn[facility] PO[facility]UCOSE (AUTOMATED)2020-05-01 15:09:00 Test Item Value Reference Range Interpretation Comments POCT GLU (test code = 8239181597) 109 mg/dL 70-110 Lab Interpretation (test code = Normal 61517-7) [facility] GLUCOSE (AUTOMATED)2020-05-01 02:43:00 Test Item Value Reference Range Interpretation Comments POCT GLU (test code = 7785245731) 132 mg/dL 70-110 H Lab Interpretation (test code = Abnormal 30328-1) [facility] GLUCOSE (AUTOMATED)2020-05-01 00:46:00 Test Item Value Reference Range Interpretation Comments POCT GLU (test code = 4591433866) 118 mg/dL 70-110 H Lab Interpretation (test code = Abnormal 06100-6) [facility] GLUCOSE (AUTOMATED)2020-04-30 18:53:00 Test Item Value Reference Range Interpretation Comments POCT GLU (test code = 2306927283) 147 mg/dL 70-110 H Lab Interpretation (test code = Abnormal 11804-3) [facility] GLUCOSE (AUTOMATED)2020-04-30 15:36:00 Test Item Value Reference Range Interpretation Comments POCT GLU (test code = 7885187262) 104 mg/dL 70-110 Lab Interpretation (test code = Normal 34953-1) [facility] GLUCOSE (AUTOMATED)2020-04-30 11:59:00 Test Item Value Reference Range Interpretation Comments POCT GLU (test code = 3270670872) 93 mg/dL 70-110 Lab Interpretation (test code = Normal 24388-6) [facility] GLUCOSE (AUTOMATED)2020-04-30 08:06:00 Test Item Value Reference Range Interpretation Comments POCT GLU (test code = 1517160410) 99 mg/dL 70-110 Lab Interpretation (test code = Normal 23410-0) [facility] GLUCOSE (AUTOMATED)2020-04-30 04:22:00 Test Item Value Reference Range Interpretation Comments POCT GLU (test code = 4819782852) 120 mg/dL 70-110 H Lab Interpretation (test code = Abnormal 17922-7) [facility] GLUCOSE (AUTOMATED)2020-04-30 00:13:00 Test Item Value Reference Range Interpretation Comments POCT GLU (test code = 4034771845) 123 mg/dL 70-110 H Lab Interpretation (test code = Abnormal 16932-1) [facility] GLUCOSE (AUTOMATED)2020-04-29 19:46:00 Test Item Value Reference Range Interpretation Comments POCT GLU (test code = 9020263471) 133 mg/dL 70-110 H Lab Interpretation (test code = Abnormal 70438-8) [facility] GLUCOSE (AUTOMATED)2020-04-29 19:10:00 Test Item Value Reference Range Interpretation Comments POCT GLU (test code = 3165573602) 121 mg/dL 70-110 H Lab Interpretation (test code = Abnormal 38212-4) [facility] GLUCOSE (AUTOMATED)2020-04-29 15:08:00 Test Item Value Reference Range Interpretation Comments POCT GLU (test code = 3132353419) 123 mg/dL 70-110 H Lab Interpretation (test code = Abnormal 59628-1) [facility] (NA, K, CL, CO2, GLUCOSE, BUN, CREATININE, CA)2020-04-29 10:37:00 Test Item Value Reference Range Interpretation Comments NA (test code = 135 mmol/L 135-145 2219693242) K (test code = 3.7 mmol/L 3.5-5 8201109802) CL (test code = 103 mmol/L 98-108 4517615078) CO2 TOTAL (test code = 29 mmol/L 23-31 7722705486) AGAP (test code = 2-16 7307693512) BUN (test code = 10 mg/dL 7-23 4983735129) GLUCOSE (test code = 127 mg/dL 70-110 H 6209025454) CREATININE (test code = 0.82 mg/dL 0.5-1.04 0521339807) CALCIUM (test code = 7.8 mg/dL 8.6-10.6 L 3349164617) eGFR Calculation mL/min/1.73m2 (Non-) (test code = 1028716806) eGFR Calculation mL/min/1.73m2 () (test code = 7885582907) JACI (test code = JACI) Association of Glomerular Filtration Rate (GFR) and Staging of Kidney Disease* + --+ --+ ------+| GFR (mL/min/1.73 m2) ?| With Kidney Damage ?| ?Without Kidney Damage+ --------+ --------+ +| ?>90 ?| ?Stage one ?| ? Normal ?+ ---+ ---+ -------+| ?60-89 ?| ?Stage two ?| ? Decreased GFR ? + --+ --+ ------+| ?30-59 ?| ?Stage three ?| ? Stage three ? + --+ --+ ------+| ?15-29 ?| ?Stage four ? | ? Stage four ?+ ---+ ---+ -------+| ?<15 (or dialysis) ? ?| ?Stage five ? | ? Stage five ?+ ---+ ---+ -------+ *Each stage assumes the associated GFR level has been in effect for at least three months. ?Stages 1 to 5, with or without kidney disease, indicate chronic kidney disease. Notes: Determination of stages one and two (with eGFR >59mL/min/1.73 m2) requires estimation of kidney damage for at least three months as defined by structural or functional abnormalities of the kidney, manifested by either:Pathological abnormalities or Markers of kidney damage (including abnormalities in the composition of the blood or urine or abnormalities in imaging tests). Lab Interpretation Abnormal (test code = 99811-5) [facility] WITH [id number] 10:27:00 Test Item Value Reference Range Interpretation Comments WBC (test code = See_Comment H [Automated 6690-2) message] The system which generated this result transmit shira reference range : 4.30 - 11.10 10*3/?L. The reference range was not used to interpret this result as normal/abnormal . RBC (test code = See_Comment L [Automated 789-8) message] The system which generated this result transmit shira reference range : 3.93 - 5.25 10*6/?L. The reference range was not used to interpret this result as normal/abnormal . HGB (test code = 7.9 g/dL 11.6-15 L 718-7) HCT (test code = 25.3 % 35.7-45.2 L 4544-3) MCV (test code = 90.7 fL 80.6-95.5 787-2) MCH (test code = 28.3 pg 25.9-32.8 785-6) MCHC (test code = 31.2 g/dL 31.6-35.1 L 786-4) RDW-SD (test code = 58.4 fL 39-49.9 H 39182-3) RDW-CV (test code = 18.3 % 12-15.5 H 788-0) PLT (test code = See_Comment [Automated 777-3) message] The system which generated this result transmit shira reference range : 166 - 358 10*3/ ?L. The reference range was not u sed to interpret th is result as normal/abnormal . MPV (test code = 9.9 fL 9.5-12.9 01555-9) NRBC/100 WBC (test See_Comment [Automat ed code = 5991077795) message] The system which generated this result transmit shira reference range : 0.0 - 10.0 /100 WBCs. The reference range was not used to interpret this result as normal/abnormal . NRBC x10^3 (test code <0.01 See_Comment [Auto mated = 5234258663) message] The system which generated this result transmit shira reference range : 10*3/?L. The reference range was not used to interpret this result as normal/abnormal . GRAN MAT (NEUT) % 81.0 % (test code = 770-8) IMM GRAN % (test code 1.70 % = 7567936464) LYMPH % (test code = 6.7 % 736-9) MONO % (test code = 7.1 % 5905-5) EOS % (test code = 3.3 % 713-8) BASO % (test code = 0.2 % 706-2) GRAN MAT x10^3(ANC) 10.05 10*3/uL 1.88-7.09 H (test code = 4207166653) IMM GRAN x10^3 (test 0.21 10*3/uL 0-0.06 H code = 3254826907) LYMPH x10^3 (test code 0.83 10*3/uL 1.32-3.29 L = 731-0) MONO x10^3 (test code 0.88 10*3/uL 0.33-0.92 = 742-7) EOS x10^3 (test code = 0.41 10*3/uL 0.03-0.39 H 711-2) BASO x10^3 (test code 0.03 10*3/uL 0.01-0.07 = 704-7) Lab Interpretation Abnormal (test code = 82397-3) [facility] GLUCOSE (AUTOMATED)2020-04-29 10:17:00 Test Item Value Reference Range Interpretation Comments POCT GLU (test code = 8893517500) 132 mg/dL 70-110 H Lab Interpretation (test code = Abnormal 22316-8) [facility] GLUCOSE (AUTOMATED)2020-04-29 05:56:00 Test Item Value Reference Range Interpretation Comments POCT GLU (test code = 7215706763) 111 mg/dL 70-110 H Lab Interpretation (test code = Abnormal 16390-8) [facility] GLUCOSE (AUTOMATED)2020-04-29 02:26:00 Test Item Value Reference Range Interpretation Comments POCT GLU (test code = 3691360650) 152 mg/dL 70-110 H Lab Interpretation (test code = Abnormal 19633-5) [facility] GLUCOSE (AUTOMATED)2020-04-28 22:46:00 Test Item Value Reference Range Interpretation Comments POCT GLU (test code = 5459317369) 159 mg/dL 70-110 H Lab Interpretation (test code = Abnormal 54233-4) [facility] GLUCOSE (AUTOMATED)2020-04-28 18:13:00 Test Item Value Reference Range Interpretation Comments POCT GLU (test code = 0339557037) 115 mg/dL 70-110 H Lab Interpretation (test code = Abnormal 11280-1) [facility] GLUCOSE (AUTOMATED)2020-04-28 14:36:00 Test Item Value Reference Range Interpretation Comments POCT GLU (test code = 2696073134) 111 mg/dL 70-110 H Lab Interpretation (test code = Abnormal 62172-0) [facility] GLUCOSE (AUTOMATED)2020-04-28 12:03:00 Test Item Value Reference Range Interpretation Comments POCT GLU (test code = 2633511910) 105 mg/dL 70-110 Lab Interpretation (test code = Normal 50181-9) [facility] GLUCOSE (AUTOMATED)2020-04-28 08:00:00 Test Item Value Reference Range Interpretation Comments POCT GLU (test code = 7638047815) 110 mg/dL 70-110 Lab Interpretation (test code = Normal 98916-4) [facility] GLUCOSE (AUTOMATED)2020-04-28 04:18:00 Test Item Value Reference Range Interpretation Comments POCT GLU (test code = 7040051113) 145 mg/dL 70-110 H Lab Interpretation (test code = Abnormal 02003-3) [facility] GLUCOSE (AUTOMATED)2020-04-28 00:41:00 Test Item Value Reference Range Interpretation Comments POCT GLU (test code = 9245191003) 142 mg/dL 70-110 H Lab Interpretation (test code = Abnormal 31189-5) [facility] GLUCOSE (AUTOMATED)2020-04-27 21:03:00 Test Item Value Reference Range Interpretation Comments POCT GLU (test code = 4069113178) 120 mg/dL 70-110 H Lab Interpretation (test code = Abnormal 72924-4) [facility]2020-04[facility]27 18:41:00 Test Item Value Reference Range Interpretation Comments POCT GLU (test code = 3452504319) 103 mg/dL 70-110 Lab Interpretation (test code = Normal 86761-3) [facility]2020-04-27 16:51:00 Test Item Value Reference Range Interpretation Comments POCT GLU (test code = 6783187121) 51 mg/dL 70-110 L Lab Interpretation (test code = Abnormal 19845-0) [facility]2020-04-27 16:09:00 Test Item Value Reference Range Interpretation Comments POCT GLU (test code = 4237734391) 31 mg/dL 70-110 LL Lab Interpretation (test code = Abnormal 02808-0) [facility] GLUCOSE (AUTOMATED)2020-04-27 14:11:00 Test Item Value Reference Range Interpretation Comments POCT GLU (test code = 2514634163) 74 mg/dL 70-110 Lab Interpretation (test code = Normal 24231-3) [facility] 13:29:00 Test Item Value Reference Range Interpretation Comments POCT GLU (test code = 7029481112) 43 mg/dL 70-110 LL Lab Interpretation (test code = Abnormal 35366-1) [facility]2020-04-27 11:18:00 Test Item Value Reference Range Interpretation Comments POCT GLU (test code = 0779057682) 91 mg/dL 70-110 Lab Interpretation (test code = Normal 45866-6) [facility]2020-04-27 10:05:00 Test Item Value Reference Range Interpretation Comments POCT GLU (test code = 2208602322) 69 mg/dL 70-110 L Lab Interpretation (test code = Abnormal 26277-0) [facility]2020-04-27 08:13:00 Test Item Value Reference Range Interpretation Comments POCT GLU (test code = 7163004994) 93 mg/dL 70-110 Lab Interpretation (test code = Normal 46324-7) [facility] GLUCOSE (AUTOMATED)2020-04-27 07:26:00 Test Item Value Reference Range Interpretation Comments POCT GLU (test code = 2279518602) 58 mg/dL 70-110 L Lab Interpretation (test code = Abnormal 21968-9) [facility] GLUCOSE (AUTOMATED)2020-04-27 06:31:00 Test Item Value Reference Range Interpretation Comments POCT GLU (test code = 8763443196) 68 mg/dL 70-110 L Lab Interpretation (test code = Abnormal 19224-1) [facility] 04:55:00 Test Item Value Reference Range Interpretation Comments APPEARANCE (test code = Turbid Clear A 3010040373) COLOR (test code = Sarai Yellow A 8937483141) PH (test code = 4.8-8.0 4892211404) SP GRAVITY (test code = 1.003-1.030 9765883650) GLU U QUAL (test code = Normal Normal 6882117378) BLOOD (test code = 2+ Negative A 0856926594) KETONES (test code = Negative Negative 7230085625) PROTEIN (test code = 100 mg/dL Negative A 2887-8) UROBILIN (test code = Normal Normal 3471991594) BILIRUBIN (test code = Negative Negative 4542853226) NITRITE (test code = Negative Negative 2901860391) LEUK TRENA (test code = 250/uL Negative A 6493849791) RBC/HPF (test code = See_Comment H [Autom ated message] 4201110998) The system [employer] generated this result transmit shira reference range : 0 - 3 HPF. The refe rence range was not u sed to interpret th is result as normal/abnormal . WBC/HPF (test code = >182 See_Comment H [Autom ated message] 5583729632) The system [employer] generated this result transmit shira reference range : 0 - 5 HPF. The refe rence range was not u sed to interpret th is result as normal/abnormal . BACTERIA (test code = Many Negative A 3476855396) MUCOUS (test code = Moderate Negative LPF A 3237464480) SQ EPITH (test code = See_Comment H [Auto mated message] 2153853281) The system [employer] generated this result transmit shira reference range : <=2 HPF. The refere nce range was not u sed to interpret th is result as normal/abnormal . WBC CLUMPS (test code = See_Comment H [Au tomated message] [id number]) The system [employer] generated this result transmit shira reference range : <=1 HPF. The refere nce range was not u sed to interpret th is result as normal/abnormal . YEAST BUD (test code = See_Comment H [Aut omated message] [id number]) The system [employer] generated this result transmit shira reference range : <=1 HPF. The refere nce range was not u sed to interpret th is result as normal/abnormal . Lab Interpretation (test Abnormal code = 75151-3) [facility] [id number] 04:35:08 Cardiomegaly without pericardial effusion. Mild dependent atelectasis in the lung bases without other acute pulmonaryprocess. 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 No acute process identified in the abdomen or pelvis. Small amount of air in the lumen of the urinary bladder, possibly due torecent instrumentation. Clinical correlation is suggested. RL: 460 AFC: [id number] Ordering physician: DERRICK WEAVER Indication: Hypoglycemia, leukocytosis COMPARISON: Abdominal ultrasound dated 03/30/2020 TECHNIQUE: Axial images of the chest, abdomen and pelvis were performedfollowing administration of intravenous contrast material. Images werereformatted in the coronal and sagittal plane.CT scan was performedaccording to ALARA (as low as reasonably achievable) policy. FINDINGS: The visualized thyroid gland is within normal limits. There isdiffuse atherosclerotic plaque in the thoracic aorta without dissection.There is a small saccular aneurysm or ductal diverticulum in the transverseaorta, measuring 14 mm. The heart is enlarged without pericardial effusion.There are no pathologicallyenlarged mediastinal or hilar lymph nodes. Nolarge central pulmonary embolus is appreciated. There is mild dependentatelectasis in the lung bases without other acute pulmonary process. Theheart is enlarged without pericardial effusion. Bone windows through thechest demonstrate no osseous destructive lesion. The patient is status post cholecystectomy. The liver, spleen, adrenalglands and pancreas are within normal limits. There are multiple surgicalclips adjacent to the pancreatic head. There are cortical cysts in thekidneys bilaterally, measuring up to 4.2 cm. There is atheroscleroticcalcification of the aorta without significant aneurysmal dilatation. There is no free fluid in the pelvis. The urinary bladder is moderatelydistended. There is a small amount of air in the lumen of the urinarybladder. There is no bowel obstruction, widespread diverticulosis or acutediverticulitis. The appendix is is not separately identified. 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 [facility], Radiant Results Inft User- 04/26/2020 10:36 PM CSTOrdering physician: DERRICK Bianchidication: Hypoglycemia, leukocytosisCOMPARISON: Abdominal ultrasound dated 03/30/2020TECHNIQUE: Axial images of the chest, abdomen and pelvis were performedfollowing administration of intravenous contrast material. Images werereformatted in the coronal and sagittal plane. CT scan was performedaccording to ALARA (as low as reasonably achievable) policy.FINDINGS: The visualized thyroid gland is within normal limits. There isdiffuse atherosc lerotic plaque in the thoracic aorta without dissection.There is a small saccular aneurysm or ductaldiverticulum in the transverseaorta, measuring 14 mm. The heart is enlarged without pericardial effusion.There are no pathologically enlarged mediastinal or hilar lymph nodes. Nolarge central pulmonaryembolus is appreciated. There is mild dependentatelectasis in the lung bases without other acute pulmonary process. Theheart is enlarged without pericardial effusion. Bone windows through thechest demonstrate no osseous destructive lesion.The patient is status post cholecystectomy. The liver, spleen, adrenalglands and pancreas are within normal limits. There are multiple surgicalclips adjacent to the pancreatic head. There are cortical cysts in thekidneys bilaterally, measuring up to 4.2 cm. There is atheroscleroticcalcification of the aorta without significant aneurysmal dilatation.There is no free fluid in the pelvis. The urinary bladder is moderatelydistended. There is a small amount of air in the lumen of the urinarybladder. There is no bowel obstruction, widespread diverticulosis or acutediverticulitis. The appendix is is not separately identified. 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 Clinical correlation is suggested.RL: 460AFC: [id number] [facility]CT [facility] pelvis with [id number] 04:35:08 Cardiomegaly without pericardial effusion. Mild dependent atelectasis in the lung bases without other acute pulmonaryprocess. 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 No acute process identified in the abdomen or pelvis. Small amount of air in the lumen of the urinary bladder, possibly due torecent instrumentation. Clinical correlation is suggested. RL: 460 [facility]: [id number] Ordering physician: DERRICK WEAVER Indication: Hypoglycemia, leukocytosis COMPARISON: Abdominal ultrasound dated 03/30/2020 TECHNIQUE: Axial images of the chest, abdomen and pelvis were performedfollowing administration of intravenous contrast material. Images werereformatted in the coronal and sagittal plane.CT scan was performedaccording to ALARA (as low as reasonably achievable) policy. FINDINGS: The visualized thyroid gland is within normal limits. There isdiffuse atherosclerotic plaque in the thoracic aorta without dissection.There is a small saccular aneurysm or ductal diverticulum in the transverseaorta, measuring 14 mm. The heart is enlarged without pericardial effusion.There are no pathologicallyenlarged mediastinal or hilar lymph nodes. Nolarge central pulmonary embolus is appreciated. There is mild dependentatelectasis in the lung bases without other acute pulmonary process. Theheart is enlarged without pericardial effusion. Bone windows through thechest demonstrate no osseous destructive lesion. The patient is status post cholecystectomy. The liver, spleen, adrenalglands and pancreas are within normal limits. There are multiple surgicalclips adjacent to the pancreatic head. There are cortical cysts in thekidneys bilaterally, measuring up to 4.2 cm. There is atheroscleroticcalcification of the aorta without significant aneurysmal dilatation. There is no free fluid in the pelvis. The urinary bladder is moderatelydistended. There is a small amount of air in the lumen of the urinarybladder. There is no bowel obstruction, widespread diverticulosis or acutediverticulitis. The appendix is is not separately identified. 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 [facility], Radiant Results Inft User- 04/26/2020 10:36 PM CSTOrdering physician: DERRICK Bianchidication: Hypoglycemia, leukocytosisCOMPARISON: Abdominal ultrasound dated 03/30/2020TECHNIQUE: Axial images of the chest, abdomen and pelvis were performedfollowing administration of intravenous contrast material. Images werereformatted in the coronal and sagittal plane. CT scan was performedaccording to ALARA (as low as reasonably achievable) policy.FINDINGS: The visualized thyroid gland is within normal limits. There isdiffuse atherosc lerotic plaque in the thoracic aorta without dissection.There is a small saccular aneurysm or ductaldiverticulum in the transverseaorta, measuring 14 mm. The heart is enlarged without pericardial effusion.There are no pathologically enlarged mediastinal or hilar lymph nodes. Nolarge central pulmonaryembolus is appreciated. There is mild dependentatelectasis in the lung bases without other acute pulmonary process. Theheart is enlarged without pericardial effusion. Bone windows through thechest demonstrate no osseous destructive lesion.The patient is status post cholecystectomy. The liver, spleen, adrenalglands and pancreas are within normal limits. There are multiple surgicalclips adjacent to the pancreatic head. There are cortical cysts in thekidneys bilaterally, measuring up to 4.2 cm. There is atheroscleroticcalcification of the aorta without significant aneurysmal dilatation.There is no free fluid in the pelvis. The urinary bladder is moderatelydistended. There is a small amount of air in the lumen of the urinarybladder. There is no bowel obstruction, widespread diverticulosis or acutediverticulitis. The appendix is is not separately identified. 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 CT HEAD WO CONTRAST HISTORY: hypoglycemia, leukocytosis, limited hx, unclear baseline COMPARISON: 04/03/20. TECHNIQUE: Routine unenhanced brain CT. ? 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 Redemonstration of chronic lacunar infarcts in the left do and rightbasal ganglia. Chronic left postcentral gyrus infarct. Probable chronicischemic changes of the white matter. Intracranial atherosclerosis. Unchanged prominence of the ventricles and cerebral sulci.Partially empty sella. No depressed calvarial fracture. Bilateral pseudophakia. Visualized paranasal sinuses are essentially clear. [facility], Radiant Results Inft User - 04/26/2020 10:29 PM CSTCT HEAD WO CONTRASTHISTORY: hypoglycemia, leukocytosis, limited hx, unclear baseline COMPARISON: 04/03/20. TECHNIQUE: Routine unenhanced brain CT. 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 Redemonstration of chronic lacunar infarcts in the left do and rightbasal ganglia. Chronic left postcentral gyrus infarct. Probable chronicischemic changes of the whitematter. Intracranial atherosclerosis. Unchanged prominence of the ventricles and cerebral sulci.Partially empty sella. No depressed calvarial fracture. Bilateral pseudophakia. Visualized paranasal sinuses are essentially clear. IMPRESSIONWithin confines of artifact related to stent and coil embolization of thebasilar artery, no interval acute intracranial abnormality.[facility] with [id number] 03:44:00 Test Item Value Reference Range Interpretation Comments WBC (test code = See_Comment H [Automated 6690-2) message] The system which generated this result transmit shira reference range : 4.30 - 11.10 10*3/?L. The reference range was not used to interpret this result as normal/abnormal . RBC (test code = See_Comment L [Automated 789-8) message] The system which generated this result transmit shira reference range : 3.93 - 5.25 10*6/?L. The reference range was not used to interpret this result as normal/abnormal . HGB (test code = 8.6 g/dL 11.6-15 L 718-7) HCT (test code = 28.3 % 35.7-45.2 L 4544-3) MCV (test code = 89.8 fL 80.6-95.5 787-2) MCH (test code = 27.3 pg 25.9-32.8 785-6) MCHC (test code = 30.4 g/dL 31.6-35.1 L 786-4) RDW-SD (test code = 58.3 fL 39-49.9 H 99011-1) RDW-CV (test code = 18.6 % 12-15.5 H 788-0) PLT (test code = See_Comment H [Automated 777-3) message] The system which generated this result transmit shira reference range : 166 - 358 10*3/ ?L. The reference range was not u sed to interpret th is result as normal/abnormal . MPV (test code = 10.5 fL 9.5-12.9 89317-5) NRBC/100 WBC (test See_Comment [Automat ed code = 8422007027) message] The system which generated this result transmit shira reference range : 0.0 - 10.0 /100 WBCs. The reference range was not used to interpret this result as normal/abnormal . NRBC x10^3 (test code <0.01 See_Comment [Auto mated = 3154403175) message] The system which generated this result transmit shira reference range : 10*3/?L. The reference range was not used to interpret this result as normal/abnormal . GRAN MAT (NEUT) % 85.6 % (test code = 770-8) IMM GRAN % (test code 1.40 % = 1347912144) LYMPH % (test code = 4.9 % 736-9) MONO % (test code = 6.9 % 5905-5) EOS % (test code = 0.9 % 713-8) BASO % (test code = 0.3 % 706-2) GRAN MAT x10^3(ANC) 15.56 10*3/uL 1.88-7.09 H (test code = 1015700883) IMM GRAN x10^3 (test 0.26 10*3/uL 0-0.06 H code = 0243573640) LYMPH x10^3 (test code 0.89 10*3/uL 1.32-3.29 L = 731-0) MONO x10^3 (test code 1.26 10*3/uL 0.33-0.92 H = 742-7) EOS x10^3 (test code = 0.16 10*3/uL 0.03-0.39 711-2) BASO x10^3 (test code 0.06 10*3/uL 0.01-0.07 = 704-7) Lab Interpretation Abnormal (test code = 00663-1) [id number]00 Test Item Value Reference Range Interpretation Comments TROPONIN I (test 0.056 ng/mL See_Comment H [Automated code = 2413210649) message] The system which generated this result transmitted reference range : <=0.034. The reference range was not used to interpret this result as normal/abnormal . JACI (test code = Equal or Less than JACI) 0.034 ng/ml---Normal ?Note: Cardiac troponin begins to rise 3-4 hours after the onset of ischemia. Repeat in 4-6 hours if the sample was drawn within 3-4 hours of the onset of the symptom and found normal. Between 0.035 and 0.120 ng/mL--- Borderline. Questionable myocardial injury or necrosis ? ?Note: Serial measurement may be necessary to confirm or exclude the diagnosis of myocardial injury or necrosis; Clinical correlation (symptoms, EKGs, imaging studies, and others) required; Repeat in 4-6 hours if clinically indicated. ? Equal or Higher than 0.121 ng/mL---Abnormal. Myocardial Injury or Necrosis Likely ? Biotin has been reported to cause a negative bias, interpret results relative to patient's use of biotin. ? Lab Interpretation Abnormal (test code = 10535-7) [facility]ID [facility]2020-04-27 03:40:00 Test Item Value Reference Range Interpretation Comments SARS-CoV-2 Rapid ID NOW Not Detected Not Detected (test code = 72398-8) JACI (test code = JACI) ID NOW COVID-19 Assay is an isothermal nucleic acid amplification test intended for the qualitative detection of nucleic acid from SARS-CoV-2 viral RNA in nasopharyngeal (INNER DIAMETER GRINDER TOOL) specimens. It is used under Emergency Use Authorization (EUA) by FDA. The limit of detection (LOD) of the assay is 125 Genome Equivalents/mL. A positive result is indicative of the presence of SARS-CoV-2 RNA. ?Clinical correlation with patient history and other diagnostic information is necessary to determine patient infection status. A negative (Not Detected) result does not preclude SARS-CoV-2 infection. In patients with clinical symptoms and other tests that are consistent with SARS-CoV-2 infection, negative results should be treated as presumptive negative and a new specimen should be tested with alternative PCR molecular test. Invalid: Please collect a new specimen for repeat patient testing if clinically indicated. Lab Interpretation Normal (test code = 94637-1) [facility] (NA, K, CL, CO2, GLUCOSE, BUN, CREATININE, CA)2020-04-27 03:31:00 Test Item Value Reference Range Interpretation Comments NA (test code = 137 mmol/L 135-145 2380761497) K (test code = 3.1 mmol/L 3.5-5 L 9106161464) CL (test code = 105 mmol/L 98-108 9724701900) CO2 TOTAL (test code = 30 mmol/L 23-31 7725490290) AGAP (test code = 2-16 1228301730) BUN (test code = 16 mg/dL 7-23 4350981692) GLUCOSE (test code = 74 mg/dL 70-110 0545385915) CREATININE (test code = 0.77 mg/dL 0.5-1.04 8907941007) CALCIUM (test code = 7.7 mg/dL 8.6-10.6 L 6863984555) eGFR Calculation mL/min/1.73m2 (Non-) (test code = 8272878723) eGFR Calculation mL/min/1.73m2 () (test code = 4935331719) JACI (test code = JACI) Association of Glomerular Filtration Rate (GFR) and Staging of Kidney Disease* + --+ --+ ------+| GFR (mL/min/1.73 m2) ?| With Kidney Damage ?| ?Without Kidney Damage+ --------+ --------+ +| ?>90 ?| ?Stage one ?| ? Normal ?+ ---+ ---+ -------+| ?60-89 ?| ?Stage two ?| ? Decreased GFR ? + --+ --+ ------+| ?30-59 ?| ?Stage three ?| ? Stage three ? + --+ --+ ------+| ?15-29 ?| ?Stage four ? | ? Stage four ?+ ---+ ---+ -------+| ?<15 (or dialysis) ? ?| ?Stage five ? | ? Stage five ?+ ---+ ---+ -------+ *Each stage assumes the associated GFR level has been in effect for at least three months. ?Stages 1 to 5, with or without kidney disease, indicate chronic kidney disease. Notes: Determination of stages one and two (with eGFR >59mL/min/1.73 m2) requires estimation of kidney damage for at least three months as defined by structural or functional abnormalities of the kidney, manifested by either:Pathological abnormalities or Markers of kidney damage (including abnormalities in the composition of the blood or urine or abnormalities in imaging tests). Lab Interpretation Abnormal (test code = 11719-6) [facility] (ALB, T.PRO, BILI T, BU/BC, ALT, AST, ALK PHOS)2020-04-27 03:31:00 Test Item Value Reference Range Interpretation Comments TOTAL BILI (test code = 5897051389) <0.1 0.1-1.1 L BILI UNCON (test code = 9705312123) 0.1 mg/dL 0.1-1.1 BILI CONJ (test code = 8019658954) 0.0 mg/dL 0-0.3 T PROTEIN (test code = 9161434062) 4.7 g/dL 6.3-8.2 L ALBUMIN (test code = 0934999054) 2.1 g/dL 3.5-5 L ALK PHOS (test code = 9781331083) 149 U/L 34-122 H ALTv (test code = 1742-6) 14 U/L 5-35 AST(SGOT) (test code = 3373977876) 21 U/L 13-40 Lab Interpretation (test code = Abnormal 02318-7) [facility] GLUCOSE (AUTOMATED)2020-04-27 01:58:00 Test Item Value Reference Range Interpretation Comments POCT GLU (test code = 9332230955) 112 mg/dL 70-110 H Lab Interpretation (test code = Abnormal 60625-6) [facility] GLUCOSE (AUTOMATED)2020-04-19 00:16:00 Test Item Value Reference Range Interpretation Comments POCT GLU (test code = 0362034307) 105 mg/dL 70-110 Lab Interpretation (test code = Normal 02623-9) [facility] METABOLIC PANEL (NA, K, CL, CO2, GLUCOSE, BUN, CREATININE, CA)2020-04-18 22:13:00 Test Item Value Reference Range Interpretation Comments NA (test code = 139 mmol/L 135-145 6469847458) K (test code = 3.5 mmol/L 3.5-5 9679306668) CL (test code = 110 mmol/L 98-108 H 7698940214) CO2 TOTAL (test code = 26 mmol/L 23-31 0345790797) AGAP (test code = 2-16 0152690007) BUN (test code = 9 mg/dL 7-23 8246551831) GLUCOSE (test code = 93 mg/dL 70-110 6888038144) CREATININE (test code = 0.65 mg/dL 0.5-1.04 2107514879) CALCIUM (test code = 7.1 mg/dL 8.6-10.6 L 3586312627) eGFR Calculation mL/min/1.73m2 (Non-) (test code = 7733534712) eGFR Calculation mL/min/1.73m2 () (test code = 9160990962) JACI (test code = JACI) Association of Glomerular Filtration Rate (GFR) and Staging of Kidney Disease* + --+ --+ ------+| GFR (mL/min/1.73 m2) ?| With Kidney Damage ?| ?Without Kidney Damage+ --------+ --------+ +| ?>90 ?| ?Stage one ?| ? Normal ?+ ---+ ---+ -------+| ?60-89 ?| ?Stage two ?| ? Decreased GFR ? + --+ --+ ------+| ?30-59 ?| ?Stage three ?| ? Stage three ? + --+ --+ ------+| ?15-29 ?| ?Stage four ? | ? Stage four ?+ ---+ ---+ -------+| ?<15 (or dialysis) ? ?| ?Stage five ? | ? Stage five ?+ ---+ ---+ -------+ *Each stage assumes the associated GFR level has been in effect for at least three months. ?Stages 1 to 5, with or without kidney disease, indicate chronic kidney disease. Notes: Determination of stages one and two (with eGFR >59mL/min/1.73 m2) requires estimation of kidney damage for at least three months as defined by structural or functional abnormalities of the kidney, manifested by either:Pathological abnormalities or Markers of kidney damage (including abnormalities in the composition of the blood or urine or abnormalities in imaging tests). Lab Interpretation Abnormal (test code = 98475-9) [facility]2021-01-07 22:13:00 Test Item Value Reference Range Interpretation Comments MAGNESIUM (test code = 3026037308) 1.3 mg/dL 1.7-2.4 L Lab Interpretation (test code = Abnormal 73717-1) [facility]2021-01-07 19:17:00 Test Item Value Reference Range Interpretation Comments MAGNESIUM (test code = 5199002326) 1.4 mg/dL 1.7-2.4 L Lab Interpretation (test code = Abnormal 86584-9) [facility] GLUCOSE (AUTOMATED)2020-04-18 18:23:00 Test Item Value Reference Range Interpretation Comments POCT GLU (test code = 4987310900) 104 mg/dL 70-110 Lab Interpretation (test code = Normal 44720-5) [facility] METABOLIC PANEL (NA, K, CL, CO2, GLUCOSE, BUN, CREATININE, CA)2020-04-18 16:52:00 Test Item Value Reference Range Interpretation Comments NA (test code = 140 mmol/L 135-145 4259039479) K (test code = 2.7 mmol/L 3.5-5 LL 5946140639) CL (test code = 111 mmol/L 98-108 H 3432260092) CO2 TOTAL (test code = 22 mmol/L 23-31 L 4126125240) AGAP (test code = 2-16 8455855729) BUN (test code = 11 mg/dL 7-23 6518643059) GLUCOSE (test code = 96 mg/dL 70-110 8074476645) CREATININE (test code = 0.63 mg/dL 0.5-1.04 6882243997) CALCIUM (test code = 7.4 mg/dL 8.6-10.6 L 1033255053) eGFR Calculation mL/min/1.73m2 (Non-) (test code = 8922538926) eGFR Calculation mL/min/1.73m2 () (test code = 1588049408) JACI (test code = JACI) Association of Glomerular Filtration Rate (GFR) and Staging of Kidney Disease* + --+ --+ ------+| GFR (mL/min/1.73 m2) ?| With Kidney Damage ?| ?Without Kidney Damage+ --------+ --------+ +| ?>90 ?| ?Stage one ?| ? Normal ?+ ---+ ---+ -------+| ?60-89 ?| ?Stage two ?| ? Decreased GFR ? + --+ --+ ------+| ?30-59 ?| ?Stage three ?| ? Stage three ? + --+ --+ ------+| ?15-29 ?| ?Stage four ? | ? Stage four ?+ ---+ ---+ -------+| ?<15 (or dialysis) ? ?| ?Stage five ? | ? Stage five ?+ ---+ ---+ -------+ *Each stage assumes the associated GFR level has been in effect for at least three months. ?Stages 1 to 5, with or without kidney disease, indicate chronic kidney disease. Notes: Determination of stages one and two (with eGFR >59mL/min/1.73 m2) requires estimation of kidney damage for at least three months as defined by structural or functional abnormalities of the kidney, manifested by either:Pathological abnormalities or Markers of kidney damage (including abnormalities in the composition of the blood or urine or abnormalities in imaging tests). Lab Interpretation Abnormal (test code = 74592-1) [facility] 15:11:00 Test Item Value Reference Range Interpretation Comments POCT GLU (test code = 9201675150) 100 mg/dL 70-110 Lab Interpretation (test code = Normal 78803-7) [facility] WITH [id number] 12:07:00 Test Item Value Reference Range Interpretation Comments WBC (test code = See_Comment H [Automated 6690-2) message] The sy stem which generated this result transmitted reference range : 4.30 - 11.10 10*3/?L. The reference range was not used to interpret this result as normal/abnormal . RBC (test code = See_Comment L [Automated 789-8) message] The sy stem which generated this result transmitted reference range : 3.93 - 5.25 10*6/?L. The reference range was not used to interpret this result as normal/abnormal . HGB (test code = 8.1 g/dL 11.6-15 L 718-7) HCT (test code = 25.3 % 35.7-45.2 L 4544-3) MCV (test code = 86.3 fL 80.6-95.5 787-2) MCH (test code = 27.6 pg 25.9-32.8 785-6) MCHC (test code = 32.0 g/dL 31.6-35.1 786-4) RDW-SD (test code = 55.1 fL 39-49.9 H 96529-4) RDW-CV (test code = 19.8 % 12-15.5 H 788-0) PLT (test code = See_Comment L [Automated 777-3) message] The sy stem which generated this result transmitted reference range : 166 - 358 10*3/ ?L. The reference r louise was not used to interpret this result as normal/abnormal . MPV (test code = 11.1 fL 9.5-12.9 35605-5) NRBC/100 WBC (test See_Comment [Automat ed code = 9239965310) message] The system which generated this result transmitted reference range : 0.0 - 10.0 /100 WBCs. The refer ence range was not u sed to interpret th is result as normal/abnormal . NRBC x10^3 (test code <0.01 See_Comment [Auto mated = 9348828143) message] The s ystem which generated this result transmitted reference range : 10*3/?L. The reference range was not used to interpret this result as normal/abnormal . GRAN MAT (NEUT) % 80.4 % (test code = 770-8) IMM GRAN % (test code 1.70 % = 3482485728) LYMPH % (test code = 8.4 % 736-9) MONO % (test code = 8.0 % 5905-5) EOS % (test code = 1.4 % 713-8) BASO % (test code = 0.1 % 706-2) GRAN MAT x10^3(ANC) 9.21 10*3/uL 1.88-7.09 H (test code = 9268955755) IMM GRAN x10^3 (test 0.19 10*3/uL 0-0.06 H code = 9704044608) LYMPH x10^3 (test code 0.96 10*3/uL 1.32-3.29 L = 731-0) MONO x10^3 (test code 0.91 10*3/uL 0.33-0.92 = 742-7) EOS x10^3 (test code = 0.16 10*3/uL 0.03-0.39 711-2) BASO x10^3 (test code <0.03 0.01-0.07 = 704-7) Lab Interpretation Abnormal (test code = 91480-7) [facility] GLUCOSE (AUTOMATED)2020-04-18 02:15:00 Test Item Value Reference Range Interpretation Comments POCT GLU (test code = 5232599449) 195 mg/dL 70-110 H Lab Interpretation (test code = Abnormal 19390-3) [facility] WITH [id number] 00:14:00 Test Item Value Reference Range Interpretation Comments WBC (test code = See_Comment H [Automated 6690-2) message] The system which generated this result transmit shira reference range : 4.30 - 11.10 10*3/?L. The reference range was not used to interpret this result as normal/abnormal . RBC (test code = See_Comment L [Automated 789-8) message] The system which generated this result transmit shira reference range : 3.93 - 5.25 10*6/?L. The reference range was not used to interpret this result as normal/abnormal . HGB (test code = 7.9 g/dL 11.6-15 L 718-7) HCT (test code = 24.5 % 35.7-45.2 L 4544-3) MCV (test code = 86.0 fL 80.6-95.5 787-2) MCH (test code = 27.7 pg 25.9-32.8 785-6) MCHC (test code = 32.2 g/dL 31.6-35.1 786-4) RDW-SD (test code = 56.4 fL 39-49.9 H 12866-9) RDW-CV (test code = 20.0 % 12-15.5 H 788-0) PLT (test code = See_Comment L [Automated 777-3) message] The system which generated this result transmit shira reference range : 166 - 358 10*3/ ?L. The reference range was not u sed to interpret th is result as normal/abnormal . MPV (test code = 11.3 fL 9.5-12.9 77614-2) NRBC/100 WBC (test See_Comment [Automat ed code = 4058758351) message] The system which generated this result transmit shira reference range : 0.0 - 10.0 /100 WBCs. The reference range was not used to interpret this result as normal/abnormal . NRBC x10^3 (test code <0.01 See_Comment [Auto mated = 6865851487) message] The system which generated this result transmit shira reference range : 10*3/?L. The reference range was not used to interpret this result as normal/abnormal . GRAN MAT (NEUT) % 78.4 % (test code = 770-8) IMM GRAN % (test code 1.60 % = 3004336127) LYMPH % (test code = 10.2 % 736-9) MONO % (test code = 9.1 % 5905-5) EOS % (test code = 0.6 % 713-8) BASO % (test code = 0.1 % 706-2) GRAN MAT x10^3(ANC) 10.95 10*3/uL 1.88-7.09 H (test code = 0129046825) IMM GRAN x10^3 (test 0.23 10*3/uL 0-0.06 H code = 2835456956) LYMPH x10^3 (test code 1.42 10*3/uL 1.32-3.29 = 731-0) MONO x10^3 (test code 1.27 10*3/uL 0.33-0.92 H = 742-7) EOS x10^3 (test code = 0.08 10*3/uL 0.03-0.39 711-2) BASO x10^3 (test code <0.03 0.01-0.07 = 704-7) Lab Interpretation Abnormal (test code = 62298-9) [facility] 21:40:00 Test Item Value Reference Range Interpretation Comments POCT GLU (test code = 4239743582) 138 mg/dL 70-110 H Lab Interpretation (test code = Abnormal 43555-3) [facility] WITH [id number] 12:47:00 Test Item Value Reference Range Interpretation Comments WBC (test code = See_Comment H [Automated 8690-2) message] The system which generated this result transmit shira reference range : 4.30 - 11.10 10*3/?L. The reference range was not used to interpret this result as normal/abnormal . RBC (test code = See_Comment L [Automated 649-8) message] The system which generated this result transmit shira reference range : 3.93 - 5.25 10*6/?L. The reference range was not used to interpret this result as normal/abnormal . HGB (test code = 8.3 g/dL 11.6-15 L 718-7) HCT (test code = 25.7 % 35.7-45.2 L 4544-3) MCV (test code = 85.4 fL 80.6-95.5 787-2) MCH (test code = 27.6 pg 25.9-32.8 785-6) MCHC (test code = 32.3 g/dL 31.6-35.1 786-4) RDW-SD (test code = 57.1 fL 39-49.9 H 53435-9) RDW-CV (test code = 20.4 % 12-15.5 H 788-0) PLT (test code = See_Comment L [Automated 777-3) message] The system which generated this result transmit shira reference range : 166 - 358 10*3/ ?L. The reference range was not u sed to interpret th is result as normal/abnormal . MPV (test code = 11.1 fL 9.5-12.9 36395-6) NRBC/100 WBC (test See_Comment [Automat ed code = 9698118062) message] The system which generated this result transmit shira reference range : 0.0 - 10.0 /100 WBCs. The reference range was not used to interpret this result as normal/abnormal . NRBC x10^3 (test code <0.01 See_Comment [Auto mated = 6374856029) message] The system which generated this result transmit shira reference range : 10*3/?L. The reference range was not used to interpret this result as normal/abnormal . GRAN MAT (NEUT) % 81.0 % (test code = 770-8) IMM GRAN % (test code 2.10 % = 9916739298) LYMPH % (test code = 7.9 % 736-9) MONO % (test code = 8.2 % 5905-5) EOS % (test code = 0.7 % 713-8) BASO % (test code = 0.1 % 706-2) GRAN MAT x10^3(ANC) 12.25 10*3/uL 1.88-7.09 H (test code = 6476459889) IMM GRAN x10^3 (test 0.32 10*3/uL 0-0.06 H code = 4531747220) LYMPH x10^3 (test code 1.19 10*3/uL 1.32-3.29 L = 731-0) MONO x10^3 (test code 1.24 10*3/uL 0.33-0.92 H = 742-7) EOS x10^3 (test code = 0.11 10*3/uL 0.03-0.39 711-2) BASO x10^3 (test code <0.03 0.01-0.07 = 704-7) SIDEROTIC GRAN (test Suggestive of A code = 7795-8) HYPERSEG NEUTS (test Present See_Comment A [Autom ated code = 765-8) message] The system which generated this result transmit shira reference range : (none). The reference range was not used to interpret this result as normal/abnormal . Lab Interpretation Abnormal (test code = 30801-7) [facility] METABOLIC PANEL (NA, K, CL, CO2, GLUCOSE, BUN, CREATININE, CA)2020-04-17 12:40:00 Test Item Value Reference Range Interpretation Comments NA (test code = 145 mmol/L 135-145 4822528102) K (test code = 3.0 mmol/L 3.5-5 L 0827957279) CL (test code = 114 mmol/L 98-108 H 2420493739) CO2 TOTAL (test code = 23 mmol/L 23-31 0881798261) AGAP (test code = 2-16 0492885073) BUN (test code = 20 mg/dL 7-23 5075189987) GLUCOSE (test code = 88 mg/dL 70-110 3425390586) CREATININE (test code = 0.83 mg/dL 0.5-1.04 5703777575) CALCIUM (test code = 7.4 mg/dL 8.6-10.6 L 4730667909) eGFR Calculation mL/min/1.73m2 (Non-) (test code = 6588870212) eGFR Calculation mL/min/1.73m2 () (test code = 7138026238) JACI (test code = JACI) Association of Glomerular Filtration Rate (GFR) and Staging of Kidney Disease* + --+ --+ ------+| GFR (mL/min/1.73 m2) ?| With Kidney Damage ?| ?Without Kidney Damage+ --------+ --------+ +| ?>90 ?| ?Stage one ?| ? Normal ?+ ---+ ---+ -------+| ?60-89 ?| ?Stage two ?| ? Decreased GFR ? + --+ --+ ------+| ?30-59 ?| ?Stage three ?| ? Stage three ? + --+ --+ ------+| ?15-29 ?| ?Stage four ? | ? Stage four ?+ ---+ ---+ -------+| ?<15 (or dialysis) ? ?| ?Stage five ? | ? Stage five ?+ ---+ ---+ -------+ *Each stage assumes the associated GFR level has been in effect for at least three months. ?Stages 1 to 5, with or without kidney disease, indicate chronic kidney disease. Notes: Determination of stages one and two (with eGFR >59mL/min/1.73 m2) requires estimation of kidney damage for at least three months as defined by structural or functional abnormalities of the kidney, manifested by either:Pathological abnormalities or Markers of kidney damage (including abnormalities in the composition of the blood or urine or abnormalities in imaging tests). Lab Interpretation Abnormal (test code = 04530-1) [facility] GLUCOSE (AUTOMATED)2020-04-17 02:05:00 Test Item Value Reference Range Interpretation Comments POCT GLU (test code = 3026401522) 131 mg/dL 70-110 H Lab Interpretation (test code = Abnormal 46664-1) [facility] GLUCOSE (AUTOMATED)2020-04-16 23:46:00 Test Item Value Reference Range Interpretation Comments POCT GLU (test code = 1764839979) 115 mg/dL 70-110 H Lab Interpretation (test code = Abnormal 48058-5) [facility] WITH [id number] 20:05:00 Test Item Value Reference Range Interpretation Comments WBC (test code = See_Comment H [Automated 6690-2) message] The system which generated this result transmit shira reference range : 4.30 - 11.10 10*3/?L. The reference range was not used to interpret this result as normal/abnormal . RBC (test code = See_Comment L [Automated 789-8) message] The system which generated this result transmit shira reference range : 3.93 - 5.25 10*6/?L. The reference range was not used to interpret this result as normal/abnormal . HGB (test code = 9.2 g/dL 11.6-15 L 718-7) HCT (test code = 28.5 % 35.7-45.2 L 4544-3) MCV (test code = 85.6 fL 80.6-95.5 787-2) MCH (test code = 27.6 pg 25.9-32.8 785-6) MCHC (test code = 32.3 g/dL 31.6-35.1 786-4) RDW-SD (test code = 55.8 fL 39-49.9 H 46719-3) RDW-CV (test code = 20.2 % 12-15.5 H 788-0) PLT (test code = See_Comment [Automated 777-3) message] The system which generated this result transmit shira reference range : 166 - 358 10*3/ ?L. The reference range was not u sed to interpret th is result as normal/abnormal . MPV (test code = 10.9 fL 9.5-12.9 53259-6) NRBC/100 WBC (test See_Comment [Automat ed code = 3181561392) message] The system which generated this result transmit shira reference range : 0.0 - 10.0 /100 WBCs. The reference range was not used to interpret this result as normal/abnormal . NRBC x10^3 (test code See_Comment [Auto mated = 6155586899) message] The system which generated this result transmit shira reference range : 10*3/?L. The reference range was not used to interpret this result as normal/abnormal . GRAN MAT (NEUT) % 80.9 % (test code = 770-8) IMM GRAN % (test code 1.90 % = 7110255725) LYMPH % (test code = 9.2 % 736-9) MONO % (test code = 7.7 % 5905-5) EOS % (test code = 0.1 % 713-8) BASO % (test code = 0.2 % 706-2) GRAN MAT x10^3(ANC) 12.98 10*3/uL 1.88-7.09 H (test code = 6892799462) IMM GRAN x10^3 (test 0.30 10*3/uL 0-0.06 H code = 6960223114) LYMPH x10^3 (test code 1.48 10*3/uL 1.32-3.29 = 731-0) MONO x10^3 (test code 1.23 10*3/uL 0.33-0.92 H = 742-7) EOS x10^3 (test code = <0.03 0.03-0.39 L 711-2) BASO x10^3 (test code 0.03 10*3/uL 0.01-0.07 = 704-7) Lab Interpretation Abnormal (test code = 54154-0) [facility] GLUCOSE (AUTOMATED)2020-04-16 18:52:00 Test Item Value Reference Range Interpretation Comments POCT GLU (test code = 7187171082) 135 mg/dL 70-110 H Lab Interpretation (test code = Abnormal 43266-6) [facility] GLUCOSE (AUTOMATED)2020-04-16 15:19:00 Test Item Value Reference Range Interpretation Comments POCT GLU (test code = 2247245338) 101 mg/dL 70-110 Lab Interpretation (test code = Normal 87530-5) [facility] 1 Units 2020-04-16 11:52:01 Test Item Value Reference Range Interpretation Comments Cross Match Result Compatible (test code = 4409) ISBT Blood Type Code (test code = 857958) Unit Blood Type (test A Pos code = 4410) Unit Number (test [id number] code = 4411) Blood Expiration Date & Time (test code = 649484) Status Information Issued (test code = 4412) Product Red Blood Cells Identification (test code = 4413) Product Code (test H8127Y20 Performed at [facility] code = 4414) Laboratory Services - [facility] Blood [address] [address]Timo Free: [phone] A No. [id number] [facility] (NA, K, CL, CO2, GLUCOSE, BUN, CREATININE, CA)2020-04-16 11:32:00 Test Item Value Reference Range Interpretation Comments NA (test code = 139 mmol/L 135-145 1955742049) K (test code = 3.6 mmol/L 3.5-5 4789924068) CL (test code = 112 mmol/L 98-108 H 3744292290) CO2 TOTAL (test code = 22 mmol/L 23-31 L 6760536373) AGAP (test code = 2-16 2404192239) BUN (test code = 40 mg/dL 7-23 H 0654745164) GLUCOSE (test code = 85 mg/dL 70-110 5608485907) CREATININE (test code = 1.01 mg/dL 0.5-1.04 7625502663) CALCIUM (test code = 7.7 mg/dL 8.6-10.6 L 8720790220) eGFR Calculation mL/min/1.73m2 (Non-) (test code = 7901571654) eGFR Calculation mL/min/1.73m2 () (test code = 5825911221) JACI (test code = JACI) Association of Glomerular Filtration Rate (GFR) and Staging of Kidney Disease* + --+ --+ ------+| GFR (mL/min/1.73 m2) ?| With Kidney Damage ?| ?Without Kidney Damage+ --------+ --------+ +| ?>90 ?| ?Stage one ?| ? Normal ?+ ---+ ---+ -------+| ?60-89 ?| ?Stage two ?| ? Decreased GFR ? + --+ --+ ------+| ?30-59 ?| ?Stage three ?| ? Stage three ? + --+ --+ ------+| ?15-29 ?| ?Stage four ? | ? Stage four ?+ ---+ ---+ -------+| ?<15 (or dialysis) ? ?| ?Stage five ? | ? Stage five ?+ ---+ ---+ -------+ *Each stage assumes the associated GFR level has been in effect for at least three months. ?Stages 1 to 5, with or without kidney disease, indicate chronic kidney disease. Notes: Determination of stages one and two (with eGFR >59mL/min/1.73 m2) requires estimation of kidney damage for at least three months as defined by structural or functional abnormalities of the kidney, manifested by either:Pathological abnormalities or Markers of kidney damage (including abnormalities in the composition of the blood or urine or abnormalities in imaging tests). Lab Interpretation Abnormal (test code = 99942-6) [facility] WITH [id number] 11:04:00 Test Item Value Reference Range Interpretation Comments WBC (test code = See_Comment H [Automated 6690-2) message] The system which generated this result transmit shira reference range : 4.30 - 11.10 10*3/?L. The reference range was not used to interpret this result as normal/abnormal . RBC (test code = See_Comment L [Automated 789-8) message] The system which generated this result transmit shira reference range : 3.93 - 5.25 10*6/?L. The reference range was not used to interpret this result as normal/abnormal . HGB (test code = 6.4 g/dL 11.6-15 L 718-7) HCT (test code = 19.7 % 35.7-45.2 L 4544-3) MCV (test code = 87.6 fL 80.6-95.5 787-2) MCH (test code = 28.4 pg 25.9-32.8 785-6) MCHC (test code = 32.5 g/dL 31.6-35.1 786-4) RDW-SD (test code = 59.5 fL 39-49.9 H 72872-5) RDW-CV (test code = 20.4 % 12-15.5 H 788-0) PLT (test code = See_Comment L [Automated 777-3) message] The system which generated this result transmit shira reference range : 166 - 358 10*3/ ?L. The reference range was not u sed to interpret th is result as normal/abnormal . MPV (test code = 11.0 fL 9.5-12.9 25462-1) NRBC/100 WBC (test See_Comment [Automat ed code = 0150764081) message] The system which generated this result transmit shira reference range : 0.0 - 10.0 /100 WBCs. The reference range was not used to interpret this result as normal/abnormal . NRBC x10^3 (test code See_Comment [Auto mated = 0839975396) message] The system which generated this result transmit shira reference range : 10*3/?L. The reference range was not used to interpret this result as normal/abnormal . GRAN MAT (NEUT) % 79.2 % (test code = 770-8) IMM GRAN % (test code 1.90 % = 5179929114) LYMPH % (test code = 10.2 % 736-9) MONO % (test code = 8.4 % 5905-5) EOS % (test code = 0.2 % 713-8) BASO % (test code = 0.1 % 706-2) GRAN MAT x10^3(ANC) 10.15 10*3/uL 1.88-7.09 H (test code = 3321301240) IMM GRAN x10^3 (test 0.24 10*3/uL 0-0.06 H code = 8608450604) LYMPH x10^3 (test code 1.30 10*3/uL 1.32-3.29 L = 731-0) MONO x10^3 (test code 1.08 10*3/uL 0.33-0.92 H = 742-7) EOS x10^3 (test code = <0.03 0.03-0.39 L 711-2) BASO x10^3 (test code <0.03 0.01-0.07 = 704-7) Lab Interpretation Abnormal (test code = 98341-4) [facility] GLUCOSE (AUTOMATED)2020-04-16 03:38:00 Test Item Value Reference Range Interpretation Comments POCT GLU (test code = 3555246105) 130 mg/dL 70-110 H Lab Interpretation (test code = Abnormal 82814-5) [facility] GLUCOSE (AUTOMATED)2020-04-16 00:09:00 Test Item Value Reference Range Interpretation Comments POCT GLU (test code = 5898060835) 158 mg/dL 70-110 H Lab Interpretation (test code = Abnormal 87087-7) [facility] ONLY COVID [id number] 23:03:00COVID DMT InterpretationInterpretation/Recommendations: Molecular NAAT Tests for Active Infection with the SARS-CoV-2 Virus: This patient has a history of testing negative on multiple occasions for fucPZQE-PwI-7 virus that causes COVID-19 illness. The current test results are also negative. This mostlikely indicates that the patient does not have an active infection with the SARS-CoV-2 virus, especially if all of these tests coincide with the patient's current presentation. However, infection is not completely ruled out as the false negative rate for molecular NAAT testing using a nasopharyngeal sample can be up to 30%, mostly dependent on the timing of sample collection in relation to illness onset and any deficiencies in sampling techniques. If the patient continues to have persistent or worsening symptoms concerning for COVID-19 illness, a repeat NAAT test (PCR, Rapid ID Now, etc.) should be performed, at which time the SARS-CoV-2 virus - if present - may have reached a detectable viral load (usually peaking by the end of the first week of symptoms). Tests for IgM and/or IgG Antibodies to SARS-CoV-2 Virus: Testing for IgM and IgG antibodies 1-3 weeks after illness onset will indicate whether the patient has produced antibodies to the virus. At this time, it is not known if the producti on of antibodies - specifically IgG antibodies - indicates whether the patient is immune to future infections with the SARS-CoV-2 virus. Interpretation Result Comments:These interpretation comments are based upon all COVID-19 testing the patient has had at [facility], including molecular NAAT testing (more commonly known as PCR testing and Rapid ID Now testing) and antibody testing. It does not take into account any testing that a patient has had outside of the [facility] medical record. [facility] LABORATORY SERVICESCOVID NcufepaRBWB-ThY-1 NAAT (no units) ? ? Date ? Value ? 01/15/2020 ? Not Detected ? ? ? 11/16/2019 ? Not Detected ? SARS-CoV-2 Rapid ID NOW (no units) ? ? Date ? Value ? 04/14/2020 ? Not Detected ? ? ? 04/02/2020 ? Not Detected ? ? ? 03/26/2020 ? Not Detected ? ? ? 01/22/2020 ? Not Detected ? [facility] LABORATORY SERVICES [facility] WITH [id number] 22:28:00 Test Item Value Reference Range Interpretation Comments WBC (test code = See_Comment H [Automated 6690-2) message] The system which generated this result transmit shira reference range : 4.30 - 11.10 10*3/?L. The reference range was not used to interpret this result as normal/abnormal . RBC (test code = See_Comment L [Automated 789-8) message] The system which generated this result transmit shira reference range : 3.93 - 5.25 10*6/?L. The reference range was not used to interpret this result as normal/abnormal . HGB (test code = 7.9 g/dL 11.6-15 L 718-7) HCT (test code = 24.2 % 35.7-45.2 L 4544-3) MCV (test code = 86.4 fL 80.6-95.5 787-2) MCH (test code = 28.2 pg 25.9-32.8 785-6) MCHC (test code = 32.6 g/dL 31.6-35.1 786-4) RDW-SD (test code = 58.1 fL 39-49.9 H 62323-9) RDW-CV (test code = 20.8 % 12-15.5 H 788-0) PLT (test code = See_Comment [Automated 777-3) message] The system which generated this result transmit shira reference range : 166 - 358 10*3/ ?L. The reference range was not u sed to interpret th is result as normal/abnormal . MPV (test code = 11.6 fL 9.5-12.9 12122-1) NRBC/100 WBC (test See_Comment [Automat ed code = 5771560926) message] The system which generated this result transmit shira reference range : 0.0 - 10.0 /100 WBCs. The reference range was not used to interpret this result as normal/abnormal . NRBC x10^3 (test code See_Comment [Auto mated = 5955650963) message] The system which generated this result transmit shira reference range : 10*3/?L. The reference range was not used to interpret this result as normal/abnormal . GRAN MAT (NEUT) % 88.2 % (test code = 770-8) IMM GRAN % (test code 1.80 % = 9856243496) LYMPH % (test code = 5.4 % 736-9) MONO % (test code = 4.5 % 5905-5) EOS % (test code = 0.0 % 713-8) BASO % (test code = 0.1 % 706-2) GRAN MAT x10^3(ANC) 15.52 10*3/uL 1.88-7.09 H (test code = 0744342309) IMM GRAN x10^3 (test 0.32 10*3/uL 0-0.06 H code = 4501449741) LYMPH x10^3 (test code 0.95 10*3/uL 1.32-3.29 L = 731-0) MONO x10^3 (test code 0.79 10*3/uL 0.33-0.92 = 742-7) EOS x10^3 (test code = <0.03 0.03-0.39 L 711-2) BASO x10^3 (test code <0.03 0.01-0.07 = 704-7) Lab Interpretation Abnormal (test code = 41249-7) [facility] ON[facility] [id number] 16:14:11 Test Item Value Reference Range Interpretation Comments ABO & RH (test code A POSITIVE Performe d at [facility] = 20) Laboratory Serv [facility] Blood [facility] [place] [place], [place] [address]bautista [address]Opks Free: [phone] A No. [id number] IAT (test code = Negative Performed a t [facility] 1185) Laboratory Serv [facility] Blood [facility] [place] [place], [place] [address]Isidro frost [address]Fdkn Free: [phone] A No. [id number] [facility]2020-04-15 14:22:00 Test Item Value Reference Range Interpretation Comments POCT GLU (test code = 3367739585) 142 mg/dL 70-110 H Lab Interpretation (test code = Abnormal 47255-7) [facility] METABOLIC PANEL (NA, K, CL, CO2, GLUCOSE, BUN, CREATININE, CA)2020-04-15 08:39:00 Test Item Value Reference Range Interpretation Comments NA (test code = 137 mmol/L 135-145 1897298881) K (test code = 4.4 mmol/L 3.5-5 5868640145) CL (test code = 112 mmol/L 98-108 H 1371116098) CO2 TOTAL (test code = 22 mmol/L 23-31 L 5751635506) AGAP (test code = 2-16 7288995316) BUN (test code = 59 mg/dL 7-23 H 0063467578) GLUCOSE (test code = 155 mg/dL 70-110 H 6169077683) CREATININE (test code = 1.00 mg/dL 0.5-1.04 6804852074) CALCIUM (test code = 7.7 mg/dL 8.6-10.6 L 6340747415) eGFR Calculation mL/min/1.73m2 (Non-) (test code = 7324811180) eGFR Calculation mL/min/1.73m2 () (test code = 6683379864) JACI (test code = JACI) Association of Glomerular Filtration Rate (GFR) and Staging of Kidney Disease* + --+ --+ ------+| GFR (mL/min/1.73 m2) ?| With Kidney Damage ?| ?Without Kidney Damage+ --------+ --------+ +| ?>90 ?| ?Stage one ?| ? Normal ?+ ---+ ---+ -------+| ?60-89 ?| ?Stage two ?| ? Decreased GFR ? + --+ --+ ------+| ?30-59 ?| ?Stage three ?| ? Stage three ? + --+ --+ ------+| ?15-29 ?| ?Stage four ? | ? Stage four ?+ ---+ ---+ -------+| ?<15 (or dialysis) ? ?| ?Stage five ? | ? Stage five ?+ ---+ ---+ -------+ *Each stage assumes the associated GFR level has been in effect for at least three months. ?Stages 1 to 5, with or without kidney disease, indicate chronic kidney disease. Notes: Determination of stages one and two (with eGFR >59mL/min/1.73 m2) requires estimation of kidney damage for at least three months as defined by structural or functional abnormalities of the kidney, manifested by either:Pathological abnormalities or Markers of kidney damage (including abnormalities in the composition of the blood or urine or abnormalities in imaging tests). Lab Interpretation Abnormal (test code = 41303-8) [facility] WITH [id number] 08:09:00 Test Item Value Reference Range Interpretation Comments WBC (test code = See_Comment H [Automated 2590-2) message] The system which generated this result transmit shira reference range : 4.30 - 11.10 10*3/?L. The reference range was not used to interpret this result as normal/abnormal . RBC (test code = See_Comment L [Automated 789-8) message] The system which generated this result transmit shira reference range : 3.93 - 5.25 10*6/?L. The reference range was not used to interpret this result as normal/abnormal . HGB (test code = 7.7 g/dL 11.6-15 L 718-7) HCT (test code = 23.1 % 35.7-45.2 L 4544-3) MCV (test code = 84.9 fL 80.6-95.5 787-2) MCH (test code = 28.3 pg 25.9-32.8 785-6) MCHC (test code = 33.3 g/dL 31.6-35.1 786-4) RDW-SD (test code = 51.0 fL 39-49.9 H 29165-0) RDW-CV (test code = 17.8 % 12-15.5 H 788-0) PLT (test code = See_Comment [Automated 777-3) message] The system which generated this result transmit shira reference range : 166 - 358 10*3/ ?L. The reference range was not u sed to interpret th is result as normal/abnormal . MPV (test code = 11.3 fL 9.5-12.9 18901-8) NRBC/100 WBC (test See_Comment [Automat ed code = 6708427228) message] The system which generated this result transmit shira reference range : 0.0 - 10.0 /100 WBCs. The reference range was not used to interpret this result as normal/abnormal . NRBC x10^3 (test code See_Comment [Auto mated = 8588992876) message] The system which generated this result transmit shira reference range : 10*3/?L. The reference range was not used to interpret this result as normal/abnormal . GRAN MAT (NEUT) % 83.4 % (test code = 770-8) IMM GRAN % (test code 1.50 % = 1233554756) LYMPH % (test code = 8.2 % 736-9) MONO % (test code = 6.8 % 5905-5) EOS % (test code = 0.0 % 713-8) BASO % (test code = 0.1 % 706-2) GRAN MAT x10^3(ANC) 12.25 10*3/uL 1.88-7.09 H (test code = 0193975139) IMM GRAN x10^3 (test 0.22 10*3/uL 0-0.06 H code = 9019052922) LYMPH x10^3 (test code 1.20 10*3/uL 1.32-3.29 L = 731-0) MONO x10^3 (test code 1.00 10*3/uL 0.33-0.92 H = 742-7) EOS x10^3 (test code = <0.03 0.03-0.39 L 711-2) BASO x10^3 (test code <0.03 0.01-0.07 = 704-7) Lab Interpretation Abnormal (test code = 91610-0) [facility]15 06:17:00 Test Item Value Reference Range Interpretation Comments SARS-CoV-2 Rapid ID NOW Not Detected Not Detected (test code = 43965-4) JACI (test code = JACI) ID NOW COVID-19 Assay is an isothermal nucleic acid amplification test intended for the qualitative detection of nucleic acid from SARS-CoV-2 viral RNA in nasopharyngeal (INNER DIAMETER GRINDER TOOL) specimens. It is used under Emergency Use Authorization (EUA) by FDA. The limit of detection (LOD) of the assay is 125 Genome Equivalents/mL. A positive result is indicative of the presence of SARS-CoV-2 RNA. ?Clinical correlation with patient history and other diagnostic information is necessary to determine patient infection status. A negative (Not Detected) result does not preclude SARS-CoV-2 infection. In patients with clinical symptoms and other tests that are consistent with SARS-CoV-2 infection, negative results should be treated as presumptive negative and a new specimen should be tested with alternative PCR molecular test. Invalid: Please collect a new specimen for repeat patient testing if clinically indicated. Lab Interpretation Normal (test code = 34121-7) [facility] GLUCOSE (AUTOMATED)2020-04-15 03:47:00 Test Item Value Reference Range Interpretation Comments POCT GLU (test code = 4779895925) 192 mg/dL 70-110 H Lab Interpretation (test code = Abnormal 99063-9) [facility] ([facility]), 2 Units 2020-04-15 03:45:44 Test Item Value Reference Range Interpretation Comments Cross Match Result Compatible (test code = 4409) ISBT Blood Type Code (test code = 535904) Unit Blood Type (test A Pos code = 4410) Unit Number (test [id number] code = 4411) Blood Expiration Date & Time (test code = 853208) Status Information Issued (test code = 4412) Product Red Blood Cells Identification (test code = 4413) Product Code (test [id number] Performed at [facility] code = 4414) Laboratory Services - [facility] Blood [address] [place] [address] 52535Tdsl Free: [phone] A No. [id number] [facility] GLUCOSE (AUTOMATED)2020-04-15 00:43:00 Test Item Value Reference Range Interpretation Comments POCT GLU (test code = 0176997077) 264 mg/dL 70-110 H Lab Interpretation (test code = Abnormal 23666-6) [facility] WITH [id number] 22:18:00 Test Item Value Reference Range Interpretation Comments WBC (test code = See_Comment H [Automated 6690-2) message] The system which generated this result transmit shira reference range : 4.30 - 11.10 10*3/?L. The reference range was not used to interpret this result as normal/abnormal . RBC (test code = See_Comment L [Automated 789-8) message] The system which generated this result transmit shira reference range : 3.93 - 5.25 10*6/?L. The reference range was not used to interpret this result as normal/abnormal . HGB (test code = 5.4 g/dL 11.6-15 L 718-7) HCT (test code = 16.8 % 35.7-45.2 L 4544-3) MCV (test code = 93.3 fL 80.6-95.5 787-2) MCH (test code = 30.0 pg 25.9-32.8 785-6) MCHC (test code = 32.1 g/dL 31.6-35.1 786-4) RDW-SD (test code = 55.0 fL 39-49.9 H 62020-5) RDW-CV (test code = 17.2 % 12-15.5 H 788-0) PLT (test code = See_Comment [Automated 777-3) message] The system which generated this result transmit shira reference range : 166 - 358 10*3/ ?L. The reference range was not u sed to interpret th is result as normal/abnormal . MPV (test code = 11.6 fL 9.5-12.9 14769-6) NRBC/100 WBC (test See_Comment [Automat ed code = 9707399732) message] The system which generated this result transmit shira reference range : 0.0 - 10.0 /100 WBCs. The reference range was not used to interpret this result as normal/abnormal . NRBC x10^3 (test code See_Comment [Auto mated = 9384907127) message] The system which generated this result transmit shira reference range : 10*3/?L. The reference range was not used to interpret this result as normal/abnormal . GRAN MAT (NEUT) % 93.7 % (test code = 770-8) IMM GRAN % (test code 0.90 % = 0869097102) LYMPH % (test code = 2.7 % 736-9) MONO % (test code = 2.6 % 5905-5) EOS % (test code = 0.0 % 713-8) BASO % (test code = 0.1 % 706-2) GRAN MAT x10^3(ANC) 17.93 10*3/uL 1.88-7.09 H (test code = 2813629407) IMM GRAN x10^3 (test 0.17 10*3/uL 0-0.06 H code = 2720979305) LYMPH x10^3 (test code 0.51 10*3/uL 1.32-3.29 L = 731-0) MONO x10^3 (test code 0.49 10*3/uL 0.33-0.92 = 742-7) EOS x10^3 (test code = <0.03 0.03-0.39 L 711-2) BASO x10^3 (test code <0.03 0.01-0.07 = 704-7) Lab Interpretation Abnormal (test code = 80551-2) [facility] GLUCOSE (AUTOMATED)2020-04-14 19:24:00 Test Item Value Reference Range Interpretation Comments POCT GLU (test code = 2516780776) 216 mg/dL 70-110 H Lab Interpretation (test code = Abnormal 27035-4) [facility] GLUCOSE (AUTOMATED)2020-04-14 16:25:00 Test Item Value Reference Range Interpretation Comments POCT GLU (test code = 5073432703) 212 mg/dL 70-110 H Lab Interpretation (test code = Abnormal 31236-0) [facility] [id number] 14:11:37 Large joint effusion. Soft tissue swelling. Moderate osteoarthrosis. EXAM: XR KNEE 3 VW RIGHT HISTORY: concern for joint effusion 2/2 gout flare COMPARISON: None. FINDINGS: A large joint effusion is present. Mild soft tissue swelling is seen. Noacute fracture or dislocation is identified. Chondrocalcinosis is present.Tricompartmental osteophytosis is seen with medial compartment narrowingand subchondral sclerosis. Calcification of the quadriceps tendon is seen. [facility], Radiant Results Inft User - 04/14/2020 8:12 AM CSTEXAM:XR KNEE 3 VW RIGHTHISTORY:concern for joint effusion 2/2 gout flare COMPARISON:None.FINDINGS: A large joint effusion is present. Mild soft tissue swelling is seen. Noacute fracture or dislocation is identified. Chondrocalcinosis is present.Tricompartmental osteophytosis is seen with medial compartment narrowingand subchondral sclerosis. Calcification of the quadriceps tendon is seen.IMPRESSIONLarge joint effusion.Soft tissue swelling.Moderate osteoarthrosis.[facility] (NA, K, CL, CO2, GLUCOSE, BUN, CREATININE, CA)2020-04-14 13:23:00 Test Item Value Reference Range Interpretation Comments NA (test code = 140 mmol/L 135-145 1967010771) K (test code = 3.3 mmol/L 3.5-5 L 1268697322) CL (test code = 110 mmol/L 98-108 H 5027997357) CO2 TOTAL (test code = 27 mmol/L 23-31 5130543858) AGAP (test code = 2-16 8376403719) BUN (test code = 39 mg/dL 7-23 H 5585529867) GLUCOSE (test code = 126 mg/dL 70-110 H 1392955436) CREATININE (test code = 0.90 mg/dL 0.5-1.04 3265722783) CALCIUM (test code = 7.5 mg/dL 8.6-10.6 L 8085809021) eGFR Calculation mL/min/1.73m2 (Non-) (test code = 0828958950) eGFR Calculation mL/min/1.73m2 () (test code = 4569598745) JACI (test code = JACI) Association of Glomerular Filtration Rate (GFR) and Staging of Kidney Disease* + --+ --+ ------+| GFR (mL/min/1.73 m2) ?| With Kidney Damage ?| ?Without Kidney Damage+ --------+ --------+ +| ?>90 ?| ?Stage one ?| ? Normal ?+ ---+ ---+ -------+| ?60-89 ?| ?Stage two ?| ? Decreased GFR ? + --+ --+ ------+| ?30-59 ?| ?Stage three ?| ? Stage three ? + --+ --+ ------+| ?15-29 ?| ?Stage four ? | ? Stage four ?+ ---+ ---+ -------+| ?<15 (or dialysis) ? ?| ?Stage five ? | ? Stage five ?+ ---+ ---+ -------+ *Each stage assumes the associated GFR level has been in effect for at least three months. ?Stages 1 to 5, with or without kidney disease, indicate chronic kidney disease. Notes: Determination of stages one and two (with eGFR >59mL/min/1.73 m2) requires estimation of kidney damage for at least three months as defined by structural or functional abnormalities of the kidney, manifested by either:Pathological abnormalities or Markers of kidney damage (including abnormalities in the composition of the blood or urine or abnormalities in imaging tests). Lab Interpretation Abnormal (test code = 94381-0) [facility] GLUCOSE (AUTOMATED)2020-04-14 06:10:00 Test Item Value Reference Range Interpretation Comments POCT GLU (test code = 9323583336) 149 mg/dL 70-110 H Lab Interpretation (test code = Abnormal 93671-9) [facility] GLUCOSE (AUTOMATED)2020-04-14 02:20:00 Test Item Value Reference Range Interpretation Comments POCT GLU (test code = 3264799673) 167 mg/dL 70-110 H Lab Interpretation (test code = Abnormal 26271-0) [facility] GLUCOSE (AUTOMATED)2020-04-13 22:28:00 Test Item Value Reference Range Interpretation Comments POCT GLU (test code = 1922826918) 364 mg/dL 70-110 H Lab Interpretation (test code = Abnormal 89021-4) [facility] WITH [id number] 21:45:00 Test Item Value Reference Range Interpretation Comments WBC (test code = See_Comment H [Automated 6690-2) message] The system which generated this result transmit shira reference range : 4.30 - 11.10 10*3/?L. The reference range was not used to interpret this result as normal/abnormal . RBC (test code = See_Comment L [Automated 789-8) message] The system which generated this result transmit shira reference range : 3.93 - 5.25 10*6/?L. The reference range was not used to interpret this result as normal/abnormal . HGB (test code = 7.1 g/dL 11.6-15 L 718-7) HCT (test code = 22.0 % 35.7-45.2 L 4544-3) MCV (test code = 91.7 fL 80.6-95.5 787-2) MCH (test code = 29.6 pg 25.9-32.8 785-6) MCHC (test code = 32.3 g/dL 31.6-35.1 786-4) RDW-SD (test code = 55.7 fL 39-49.9 H 59140-6) RDW-CV (test code = 17.4 % 12-15.5 H 788-0) PLT (test code = See_Comment [Automated 777-3) message] The system which generated this result transmit shira reference range : 166 - 358 10*3/ ?L. The reference range was not u sed to interpret th is result as normal/abnormal . MPV (test code = 11.1 fL 9.5-12.9 29835-1) NRBC/100 WBC (test See_Comment [Automat ed code = 4103262225) message] The system which generated this result transmit shira reference range : 0.0 - 10.0 /100 WBCs. The reference range was not used to interpret this result as normal/abnormal . NRBC x10^3 (test code <0.01 See_Comment [Auto mated = 7275697555) message] The system which generated this result transmit shira reference range : 10*3/?L. The reference range was not used to interpret this result as normal/abnormal . GRAN MAT (NEUT) % 94.5 % (test code = 770-8) IMM GRAN % (test code 0.60 % = 1370758773) LYMPH % (test code = 2.9 % 736-9) MONO % (test code = 1.9 % 5905-5) EOS % (test code = 0.0 % 713-8) BASO % (test code = 0.1 % 706-2) GRAN MAT x10^3(ANC) 12.79 10*3/uL 1.88-7.09 H (test code = 3855394609) IMM GRAN x10^3 (test 0.08 10*3/uL 0-0.06 H code = 1184743422) LYMPH x10^3 (test code 0.39 10*3/uL 1.32-3.29 L = 731-0) MONO x10^3 (test code 0.26 10*3/uL 0.33-0.92 L = 742-7) EOS x10^3 (test code = <0.03 0.03-0.39 L 711-2) BASO x10^3 (test code <0.03 0.01-0.07 = 704-7) Lab Interpretation Abnormal (test code = 06752-8) [facility] GLUCOSE (AUTOMATED)2020-04-13 18:52:00 Test Item Value Reference Range Interpretation Comments POCT GLU (test code = 7977530175) 183 mg/dL 70-110 H Lab Interpretation (test code = Abnormal 08011-1) [facility] GLUCOSE (AUTOMATED)2020-04-13 15:05:00 Test Item Value Reference Range Interpretation Comments POCT GLU (test code = 2370329041) 111 mg/dL 70-110 H Lab Interpretation (test code = Abnormal 40894-8) [facility] METABOLIC PANEL (NA, K, CL, CO2, GLUCOSE, BUN, CREATININE, CA)2020-04-13 12:50:00 Test Item Value Reference Range Interpretation Comments NA (test code = 141 mmol/L 135-145 0850969664) K (test code = 3.7 mmol/L 3.5-5 1107453515) CL (test code = 113 mmol/L 98-108 H 9177745859) CO2 TOTAL (test code = 27 mmol/L 23-31 8713439516) AGAP (test code = 2-16 L 8108914044) BUN (test code = 34 mg/dL 7-23 H 1873382140) GLUCOSE (test code = 93 mg/dL 70-110 2976739719) CREATININE (test code = 0.92 mg/dL 0.5-1.04 9248489108) CALCIUM (test code = 7.7 mg/dL 8.6-10.6 L 4968706768) eGFR Calculation mL/min/1.73m2 (Non-) (test code = 5551788005) eGFR Calculation mL/min/1.73m2 () (test code = 0101988365) JACI (test code = JACI) Association of Glomerular Filtration Rate (GFR) and Staging of Kidney Disease* + --+ --+ ------+| GFR (mL/min/1.73 m2) ?| With Kidney Damage ?| ?Without Kidney Damage+ --------+ --------+ +| ?>90 ?| ?Stage one ?| ? Normal ?+ ---+ ---+ -------+| ?60-89 ?| ?Stage two ?| ? Decreased GFR ? + --+ --+ ------+| ?30-59 ?| ?Stage three ?| ? Stage three ? + --+ --+ ------+| ?15-29 ?| ?Stage four ? | ? Stage four ?+ ---+ ---+ -------+| ?<15 (or dialysis) ? ?| ?Stage five ? | ? Stage five ?+ ---+ ---+ -------+ *Each stage assumes the associated GFR level has been in effect for at least three months. ?Stages 1 to 5, with or without kidney disease, indicate chronic kidney disease. Notes: Determination of stages one and two (with eGFR >59mL/min/1.73 m2) requires estimation of kidney damage for at least three months as defined by structural or functional abnormalities of the kidney, manifested by either:Pathological abnormalities or Markers of kidney damage (including abnormalities in the composition of the blood or urine or abnormalities in imaging tests). Lab Interpretation Abnormal (test code = 29698-0) [facility] WITH [id number] 12:12:00 Test Item Value Reference Range Interpretation Comments WBC (test code = See_Comment H [Automated 6690-2) message] The system which generated this result transmit shira reference range : 4.30 - 11.10 10*3/?L. The reference range was not used to interpret this result as normal/abnormal . RBC (test code = See_Comment L [Automated 789-8) message] The system which generated this result transmit shira reference range : 3.93 - 5.25 10*6/?L. The reference range was not used to interpret this result as normal/abnormal . HGB (test code = 7.1 g/dL 11.6-15 L 718-7) HCT (test code = 21.8 % 35.7-45.2 L 4544-3) MCV (test code = 92.4 fL 80.6-95.5 787-2) MCH (test code = 30.1 pg 25.9-32.8 785-6) MCHC (test code = 32.6 g/dL 31.6-35.1 786-4) RDW-SD (test code = 56.5 fL 39-49.9 H 78700-2) RDW-CV (test code = 17.7 % 12-15.5 H 788-0) PLT (test code = See_Comment [Automated 777-3) message] The system which generated this result transmit shira reference range : 166 - 358 10*3/ ?L. The reference range was not u sed to interpret th is result as normal/abnormal . MPV (test code = 11.7 fL 9.5-12.9 97803-7) NRBC/100 WBC (test See_Comment [Automat ed code = 2203293386) message] The system which generated this result transmit shira reference range : 0.0 - 10.0 /100 WBCs. The reference range was not used to interpret this result as normal/abnormal . NRBC x10^3 (test code <0.01 See_Comment [Auto mated = 4235649927) message] The system which generated this result transmit shira reference range : 10*3/?L. The reference range was not used to interpret this result as normal/abnormal . GRAN MAT (NEUT) % 82.3 % (test code = 770-8) IMM GRAN % (test code 0.70 % = 6343688458) LYMPH % (test code = 8.0 % 736-9) MONO % (test code = 7.0 % 5905-5) EOS % (test code = 1.9 % 713-8) BASO % (test code = 0.1 % 706-2) GRAN MAT x10^3(ANC) 11.94 10*3/uL 1.88-7.09 H (test code = 5470354565) IMM GRAN x10^3 (test 0.10 10*3/uL 0-0.06 H code = 5674601920) LYMPH x10^3 (test code 1.16 10*3/uL 1.32-3.29 L = 731-0) MONO x10^3 (test code 1.02 10*3/uL 0.33-0.92 H = 742-7) EOS x10^3 (test code = 0.27 10*3/uL 0.03-0.39 711-2) BASO x10^3 (test code <0.03 0.01-0.07 = 704-7) Lab Interpretation Abnormal (test code = 39361-4) [facility] GLUCOSE (AUTOMATED)2020-04-13 01:57:00 Test Item Value Reference Range Interpretation Comments POCT GLU (test code = 7989228344) 182 mg/dL 70-110 H Lab Interpretation (test code = Abnormal 60733-2) [facility]), 1 Units 2020-04-13 00:16:50 Test Item Value Reference Range Interpretation Comments Cross Match Result Compatible (test code = 4409) ISBT Blood Type Code (test code = 647534) Unit Blood Type (test A Pos code = 4410) Unit Number (test [id number] code = 4411) Blood Expiration Date & Time (test code = 381652) Status Information Issued (test code = 4412) Product Red Blood Cells Identification (test code = 4413) Product Code (test X5714D46 Performed at [facility] code = 4414) Laboratory Services - [facility] Blood [address] [place] [address]Hlzk Free: [phone] A No. [id number] [facility] GLUCOSE (AUTOMATED)2020-04-12 23:34:00 Test Item Value Reference Range Interpretation Comments POCT GLU (test code = 1406781080) 139 mg/dL 70-110 H Lab Interpretation (test code = Abnormal 50124-2) [facility] - ONCE [id number] 22:38:12 Test Item Value Reference Range Interpretation Comments ABO & RH (test code A POSITIVE Performe d at [facility] = 20) Laboratory Serv [facility] Blood Bank[address] [facility] s [address]Dzqp Free: [phone] A No. [id number] IAT (test code = Negative Performed a t [facility] 1185) Laboratory Serv [facility] Blood Bank[address] [facility] s [address]Snnh Free: [phone] A No. [id number] [facility] WITH [id number] 20:37:00 Test Item Value Reference Range Interpretation Comments WBC (test code = See_Comment H [Automated 2790-2) message] The system which generated this result transmit shira reference range : 4.30 - 11.10 10*3/?L. The reference range was not used to interpret this result as normal/abnormal . RBC (test code = See_Comment L [Automated 789-8) message] The system which generated this result transmit shira reference range : 3.93 - 5.25 10*6/?L. The reference range was not used to interpret this result as normal/abnormal . HGB (test code = 6.3 g/dL 11.6-15 L 718-7) HCT (test code = 20.4 % 35.7-45.2 L 4544-3) MCV (test code = 94.4 fL 80.6-95.5 787-2) MCH (test code = 29.2 pg 25.9-32.8 785-6) MCHC (test code = 30.9 g/dL 31.6-35.1 L 786-4) RDW-SD (test code = 57.7 fL 39-49.9 H 32262-9) RDW-CV (test code = 17.9 % 12-15.5 H 788-0) PLT (test code = See_Comment [Automated 777-3) message] The system which generated this result transmit shira reference range : 166 - 358 10*3/ ?L. The reference range was not u sed to interpret th is result as normal/abnormal . MPV (test code = 11.6 fL 9.5-12.9 35034-1) NRBC/100 WBC (test See_Comment [Automat ed code = 5160438214) message] The system which generated this result transmit shira reference range : 0.0 - 10.0 /100 WBCs. The reference range was not used to interpret this result as normal/abnormal . NRBC x10^3 (test code <0.01 See_Comment [Auto mated = 9289448689) message] The system which generated this result transmit shira reference range : 10*3/?L. The reference range was not used to interpret this result as normal/abnormal . GRAN MAT (NEUT) % 84.6 % (test code = 770-8) IMM GRAN % (test code 0.80 % = 4031579209) LYMPH % (test code = 6.6 % 736-9) MONO % (test code = 7.5 % 5905-5) EOS % (test code = 0.4 % 713-8) BASO % (test code = 0.1 % 706-2) GRAN MAT x10^3(ANC) 14.14 10*3/uL 1.88-7.09 H (test code = 0878931610) IMM GRAN x10^3 (test 0.13 10*3/uL 0-0.06 H code = 6252656370) LYMPH x10^3 (test code 1.10 10*3/uL 1.32-3.29 L = 731-0) MONO x10^3 (test code 1.26 10*3/uL 0.33-0.92 H = 742-7) EOS x10^3 (test code = 0.06 10*3/uL 0.03-0.39 711-2) BASO x10^3 (test code <0.03 0.01-0.07 = 704-7) Lab Interpretation Abnormal (test code = 45824-5) [facility] GLUCOSE (AUTOMATED)2020-04-12 19:03:00 Test Item Value Reference Range Interpretation Comments POCT GLU (test code = 6439385224) 137 mg/dL 70-110 H Lab Interpretation (test code = Abnormal 33779-3) [facility] GLUCOSE (AUTOMATED)2020-04-12 15:30:00 Test Item Value Reference Range Interpretation Comments POCT GLU (test code = 6877573793) 131 mg/dL 70-110 H Lab Interpretation (test code = Abnormal 00640-6) [facility] METABOLIC PANEL (NA, K, CL, CO2, GLUCOSE, BUN, CREATININE, CA)2020-04-12 10:34:00 Test Item Value Reference Range Interpretation Comments NA (test code = 141 mmol/L 135-145 0221246517) K (test code = 3.5 mmol/L 3.5-5 6181350530) CL (test code = 113 mmol/L 98-108 H 6491835825) CO2 TOTAL (test code = 25 mmol/L 23-31 9648545177) AGAP (test code = 2-16 2609892052) BUN (test code = 41 mg/dL 7-23 H 6658086369) GLUCOSE (test code = 106 mg/dL 70-110 7421872373) CREATININE (test code = 0.96 mg/dL 0.5-1.04 0889706302) CALCIUM (test code = 7.9 mg/dL 8.6-10.6 L 8356164224) eGFR Calculation mL/min/1.73m2 (Non-) (test code = 2564327187) eGFR Calculation mL/min/1.73m2 () (test code = 4652275615) JACI (test code = JACI) Association of Glomerular Filtration Rate (GFR) and Staging of Kidney Disease* + --+ --+ ------+| GFR (mL/min/1.73 m2) ?| With Kidney Damage ?| ?Without Kidney Damage+ --------+ --------+ +| ?>90 ?| ?Stage one ?| ? Normal ?+ ---+ ---+ -------+| ?60-89 ?| ?Stage two ?| ? Decreased GFR ? + --+ --+ ------+| ?30-59 ?| ?Stage three ?| ? Stage three ? + --+ --+ ------+| ?15-29 ?| ?Stage four ? | ? Stage four ?+ ---+ ---+ -------+| ?<15 (or dialysis) ? ?| ?Stage five ? | ? Stage five ?+ ---+ ---+ -------+ *Each stage assumes the associated GFR level has been in effect for at least three months. ?Stages 1 to 5, with or without kidney disease, indicate chronic kidney disease. Notes: Determination of stages one and two (with eGFR >59mL/min/1.73 m2) requires estimation of kidney damage for at least three months as defined by structural or functional abnormalities of the kidney, manifested by either:Pathological abnormalities or Markers of kidney damage (including abnormalities in the composition of the blood or urine or abnormalities in imaging tests). Lab Interpretation Abnormal (test code = 56415-0) [facility] WITH [id number] 10:08:00 Test Item Value Reference Range Interpretation Comments WBC (test code = See_Comment H [Automated 6690-2) message] The system which generated this result transmit shira reference range : 4.30 - 11.10 10*3/?L. The reference range was not used to interpret this result as normal/abnormal . RBC (test code = See_Comment L [Automated 789-8) message] The system which generated this result transmit shira reference range : 3.93 - 5.25 10*6/?L. The reference range was not used to interpret this result as normal/abnormal . HGB (test code = 7.0 g/dL 11.6-15 L 718-7) HCT (test code = 21.9 % 35.7-45.2 L 4544-3) MCV (test code = 93.2 fL 80.6-95.5 787-2) MCH (test code = 29.8 pg 25.9-32.8 785-6) MCHC (test code = 32.0 g/dL 31.6-35.1 786-4) RDW-SD (test code = 57.1 fL 39-49.9 H 55159-7) RDW-CV (test code = 18.1 % 12-15.5 H 788-0) PLT (test code = See_Comment [Automated 777-3) message] The system which generated this result transmit shira reference range : 166 - 358 10*3/ ?L. The reference range was not u sed to interpret th is result as normal/abnormal . MPV (test code = 11.9 fL 9.5-12.9 31912-5) NRBC/100 WBC (test See_Comment [Automat ed code = 7494741909) message] The system which generated this result transmit shira reference range : 0.0 - 10.0 /100 WBCs. The reference range was not used to interpret this result as normal/abnormal . NRBC x10^3 (test code <0.01 See_Comment [Auto mated = 5398727440) message] The system which generated this result transmit shira reference range : 10*3/?L. The reference range was not used to interpret this result as normal/abnormal . GRAN MAT (NEUT) % 81.1 % (test code = 770-8) IMM GRAN % (test code 1.00 % = 8542537172) LYMPH % (test code = 9.2 % 736-9) MONO % (test code = 8.5 % 5905-5) EOS % (test code = 0.1 % 713-8) BASO % (test code = 0.1 % 706-2) GRAN MAT x10^3(ANC) 13.53 10*3/uL 1.88-7.09 H (test code = 6782508629) IMM GRAN x10^3 (test 0.17 10*3/uL 0-0.06 H code = 8355316874) LYMPH x10^3 (test code 1.53 10*3/uL 1.32-3.29 = 731-0) MONO x10^3 (test code 1.42 10*3/uL 0.33-0.92 H = 742-7) EOS x10^3 (test code = <0.03 0.03-0.39 L 711-2) BASO x10^3 (test code <0.03 0.01-0.07 = 704-7) Lab Interpretation Abnormal (test code = 35934-1) [facility] GLUCOSE (AUTOMATED)2020-04-12 02:41:00 Test Item Value Reference Range Interpretation Comments POCT GLU (test code = 1811539616) 184 mg/dL 70-110 H Lab Interpretation (test code = Abnormal 95223-2) [facility] GLUCOSE (AUTOMATED)2020-04-11 23:23:00 Test Item Value Reference Range Interpretation Comments POCT GLU (test code = 0867050990) 191 mg/dL 70-110 H Lab Interpretation (test code = Abnormal 07555-5) [facility] GLUCOSE (AUTOMATED)2020-04-11 19:33:00 Test Item Value Reference Range Interpretation Comments POCT GLU (test code = 2366340987) 268 mg/dL 70-110 H Lab Interpretation (test code = Abnormal 83618-4) [facility] GLUCOSE (AUTOMATED)2020-04-11 14:34:00 Test Item Value Reference Range Interpretation Comments POCT GLU (test code = 9449481897) 185 mg/dL 70-110 H Lab Interpretation (test code = Abnormal 43833-9) [facility] WITH [id number] 11:18:00 Test Item Value Reference Range Interpretation Comments WBC (test code = See_Comment H [Automated 6690-2) message] The system which generated this result transmit shira reference range : 4.30 - 11.10 10*3/?L. The reference range was not used to interpret this result as normal/abnormal . RBC (test code = See_Comment L [Automated 789-8) message] The system which generated this result transmit shira reference range : 3.93 - 5.25 10*6/?L. The reference range was not used to interpret this result as normal/abnormal . HGB (test code = 7.5 g/dL 11.6-15 L 718-7) HCT (test code = 23.6 % 35.7-45.2 L 4544-3) MCV (test code = 92.9 fL 80.6-95.5 787-2) MCH (test code = 29.5 pg 25.9-32.8 785-6) MCHC (test code = 31.8 g/dL 31.6-35.1 786-4) RDW-SD (test code = 56.7 fL 39-49.9 H 45666-2) RDW-CV (test code = 18.2 % 12-15.5 H 788-0) PLT (test code = See_Comment [Automated 777-3) message] The system which generated this result transmit shira reference range : 166 - 358 10*3/ ?L. The reference range was not u sed to interpret th is result as normal/abnormal . MPV (test code = 11.9 fL 9.5-12.9 47969-5) NRBC/100 WBC (test See_Comment [Automat ed code = 7057714726) message] The system which generated this result transmit shira reference range : 0.0 - 10.0 /100 WBCs. The reference range was not used to interpret this result as normal/abnormal . NRBC x10^3 (test code <0.01 See_Comment [Auto mated = 4589514518) message] The system which generated this result transmit shira reference range : 10*3/?L. The reference range was not used to interpret this result as normal/abnormal . GRAN MAT (NEUT) % 82.3 % (test code = 770-8) IMM GRAN % (test code 1.80 % = 9564184297) LYMPH % (test code = 5.4 % 736-9) MONO % (test code = 10.2 % 5905-5) EOS % (test code = 0.1 % 713-8) BASO % (test code = 0.2 % 706-2) GRAN MAT x10^3(ANC) 14.67 10*3/uL 1.88-7.09 H (test code = 7829454677) IMM GRAN x10^3 (test 0.32 10*3/uL 0-0.06 H code = 4273090332) LYMPH x10^3 (test code 0.97 10*3/uL 1.32-3.29 L = 731-0) MONO x10^3 (test code 1.82 10*3/uL 0.33-0.92 H = 742-7) EOS x10^3 (test code = <0.03 0.03-0.39 L 711-2) BASO x10^3 (test code 0.04 10*3/uL 0.01-0.07 = 704-7) BANDS (test code = Increased A 5292773080) Lab Interpretation Abnormal (test code = 63731-7) [facility] METABOLIC PANEL (NA, K, CL, CO2, GLUCOSE, BUN, CREATININE, CA)2020-04-11 11:05:00 Test Item Value Reference Range Interpretation Comments NA (test code = 140 mmol/L 135-145 7148906475) K (test code = 3.5 mmol/L 3.5-5 6396961053) CL (test code = 114 mmol/L 98-108 H 5786114530) CO2 TOTAL (test code = 21 mmol/L 23-31 L 2382952873) AGAP (test code = 2-16 8559855485) BUN (test code = 35 mg/dL 7-23 H 7373806347) GLUCOSE (test code = 173 mg/dL 70-110 H 1777283396) CREATININE (test code = 0.91 mg/dL 0.5-1.04 0797179468) CALCIUM (test code = 7.7 mg/dL 8.6-10.6 L 1022373335) eGFR Calculation mL/min/1.73m2 (Non-) (test code = 4513354565) eGFR Calculation mL/min/1.73m2 () (test code = 7664078226) JACI (test code = JACI) Association of Glomerular Filtration Rate (GFR) and Staging of Kidney Disease* + --+ --+ ------+| GFR (mL/min/1.73 m2) ?| With Kidney Damage ?| ?Without Kidney Damage+ --------+ --------+ +| ?>90 ?| ?Stage one ?| ? Normal ?+ ---+ ---+ -------+| ?60-89 ?| ?Stage two ?| ? Decreased GFR ? + --+ --+ ------+| ?30-59 ?| ?Stage three ?| ? Stage three ? + --+ --+ ------+| ?15-29 ?| ?Stage four ? | ? Stage four ?+ ---+ ---+ -------+| ?<15 (or dialysis) ? ?| ?Stage five ? | ? Stage five ?+ ---+ ---+ -------+ *Each stage assumes the associated GFR level has been in effect for at least three months. ?Stages 1 to 5, with or without kidney disease, indicate chronic kidney disease. Notes: Determination of stages one and two (with eGFR >59mL/min/1.73 m2) requires estimation of kidney damage for at least three months as defined by structural or functional abnormalities of the kidney, manifested by either:Pathological abnormalities or Markers of kidney damage (including abnormalities in the composition of the blood or urine or abnormalities in imaging tests). Lab Interpretation Abnormal (test code = 59161-3) [facility] 03:37:00 Test Item Value Reference Range Interpretation Comments POCT GLU (test code = 5724860278) 250 mg/dL 70-110 H Lab Interpretation (test code = Abnormal 37109-0) [facility] [id number] 00:10:15 Interval development of bibasilar ill-defined airspace opacities which mayrepresent aspiration or developing infection. Preliminary Report Dictated by Resident: Jennie Suárez MD., have reviewed this study and agree with theabove report.EXAM: XR CHEST 1 VW COMPARISON: Chest x-ray 04/02/2020 HISTORY: altered mentation, NGT in place, please rule out new onsetconsolidation, pneumon ia ? TECHNIQUE: Frontal view of the chest was obtained. FINDINGS: Lines/Tubes: Left internal jugularcentral venous catheter terminates atthe distal SVC. An endogastric tube terminates within the stomach with itsdistal tip outside the [id number]-[id number]. Lungs/pleura: ?Bilateral basilar ill-defined airspace opacities are newfrom prior mild apical pleural thickening on the left. Heart/Mediastinum: The cardiac silhouette is normal in size. Calcifiedaortic arch. No acute osseous abnormality. [facility], Radiant Results Inft User - 04/11/2020 12:41 PM CSTEXAM: XR CHEST 1 VWCOMPARISON: Chest x-ray 04/02/2020HISTORY: altered mentation, NGT in place, please rule out new onsetconsolidation, pneumonia TECHNIQUE: Frontal view of the chest was obtained.FINDINGS:Lines/Tubes: Left internal jugular central venous catheter terminates atthe distal SVC. An endogastric tube terminates within the stomach with itsdistal tip outside the [id number].Lungs/pleura: Bilateral basilar ill-defined airspace opacities are newfromprior mild apical pleural thickening on the left.Heart/Mediastinum: The cardiac silhouette is normalin size. Calcifiedaortic arch.No acute osseous abnormality.IMPRESSIONInterval development of bibasilar ill-defined airspace opacities which mayrepresent aspiration or developing infection.Preliminary Re port Dictated by Resident: Jennie Mcbride MD., have reviewed this study and agree with theabove report.[facility] 22:36:00 Test Item Value Reference Range Interpretation Comments POCT GLU (test code = 2476629487) 240 mg/dL 70-110 H Lab Interpretation (test code = Abnormal 20398-2) [facility] ART[facility] OR VENOUS HEMORRHAGE OR LYMPHATIC [id number] 22:05:12 Successful mesenteric angiogram and coil embolization of the gastroduodenalartery vascular territory, as described above. I, as teaching physician, was present during the entire procedure and/orduringthe greenwood components. Preliminary Report Dictated by Resident: Lex Cruz I, Abel Chamberlain MD., have reviewed this study and agree with the abovereport.EXAMINATION: MESENTERIC ANGIOGRAM WITH EMBOLIZATION History: Upper GI bleed with bleeding duodenal ulcers, failed endoscopictreatment Comparison:CT abdomen and pelvis from 03/24/2020 Procedure summary:-Ultrasound guided right common femoral access-Diagnostic celiac angiogram and catheterization (first order)-Selective catheterization and angiography of the gastroduodenal artery(third order) -Selective catheterization and angiography of the superiorpancreaticoduodenal artery (additional third order)-Embolization of the superior pancreaticoduodenal and gastroduodenal arteryvascular territory-Post embolization diagnostic angiography from the com mon hepatic artery(2nd order)-Angiography of the superior mesenteric artery.- Retrograde common femoral angiography and successful vascular closure withMynx. Sedation: Moderate sedation was utilized during the performance of thisprocedure with pre-and post sedation patient evaluation, administration ofthe sedation and/or analgesic, and monitoring of the patient'scardiorespiratory function. An independent, trained nurse was used toassist in monitoring the patient. Documentation of this procedure is inthepatient's chart. Procedure: After appropriate informed consent was obtained, the patient was placedsupine on the angiographic table. The right groin was then prepped anddraped in a sterile fashion.Maximal sterile barrier technique was used(cap and mask and sterile gown and sterile gloves and a large sterile sheetand hand hygiene and 2% chlorhexidine for cutaneous antisepsis). Ultrasound guidancewas used for vascular access in the common femoralartery. Real time ultrasound was used for evaluation of potential accesssites and documentation of selected access vessel patency. Concurrentreal-time ultrasound visualization was used in vascular needle entry. Apermanent recorded ultrasound image was obtained. The skin and subcutaneous tissues overlying the common femoral artery wereanesthetized with lidocaine. The common femoral artery was accessed using amicropuncture needle and sheath using real-time ultrasound guidance. Theinner dilator and wire were removed and a [employer]son wire was advanced intothe abdominal aorta. The micropuncture sheath was then exchanged for a 5French slender vascular sheath over the wire. The inner dilator was removedand the side port was connected to a gravity bag for continuous salineflush. A 5 [place] Olman catheter was inserted over the wire. The celiac arterywas selectively catheterized and diagnostic angiography was performed(first order), which showed no active extravasation or pseudoaneurysm.There is diffuse vasospasm of the superior pancreaticoduodenal artery andgastroepiploic arteries. Using a microcatheter and microwire, the gastroduodenal artery wasselectively catheterized and gastroduodenal angiography was performed(third order) which demonstrated opac ification of the right gastroepiploicartery, superior pancreaticoduodenal artery and small branches of theduodenal artery without evidence of active extravasation. Diffuse vasospasmof the distal branches of the GDA territory was again noted. Afterwards, the superior pancreaticoduodenal artery was selec tivelycatheterized and diagnostic angiography performed (additional third order),which was negative for active bleed. Given the findings seen on thecomparison endoscopy of suspected active bleeding in the gastroduodenalterritory and findings of diffuse vasospasm in this territory, the decisionwas madeto perform embolization of the gastroduodenal artery territory.Multiple 2 and 3 mm coils were placedextending from the superiorpancreaticoduodenal artery extending to the origin of the gastroduodenalartery. Follow-up angiography from the common hepatic artery (second order)demonstrates successful embolization without opacification of the GDA andonly minimal opacification of the GDA stump. The hepatic artery branchesare unremarkable. The superior mesenteric artery was then catheterized and angiography wasperformed (first order). No active extravasation or pseudoaneurysmidentified. A right femoral arteriogram was performed through the sheath indicating thepatient was an adequate candidate for closure device. Of note, patient hashigh bifurcation of the femoral arteries. All wires and catheters wereremoved and the right groin site was closed with a Mynx device. Steriledressing was placed after hemostasis was ensured. The patient tolerated theprocedure well. [facility], Radiant Results Inft User - 04/10/2020 4:06 PM CSTEXAMINATION: MESENTERIC ANGIOGRAM WITH EMBOLIZATION History: Upper GI bleed with bleeding duodenal ulcers, failed endoscopictreatmentComparison: CT abdomen and pelvis from 03/24/2020Procedure summary:-Ultrasound guided right common femoral access-Diagnostic celiac angiogram and catheterization (first order)- Selective catheterization and angiography of the gastroduodenal artery(third order) -Selective catheterization and angiography of the superiorpancreaticoduodenal artery (additional third order)-Embolization of the superior pancreaticoduodenal and gastroduodenal arteryvascular territory-Post embolization diagnostic angiography from the common hepatic artery(2nd order)-Angiography of the superior mesenteric artery.-Retrograde common femoral angiography and successful vascular closure withMynx.Sedation: Moderate sedation was utilized during the performance of thisprocedure withpre-and post sedation patient evaluation, administration ofthe sedation and/or analgesic, and monitor ing of the patient'scardiorespiratory function. An independent, trained nurse was used toassist in monitoring the patient. Documentation of this procedure is in thepatient's chart. Procedure:After appropriate informed consent was obtained, the patient was placedsupine on the angiographic table. The right groin was then prepped anddraped in a sterile fashion. Maximal sterile barrier technique was used(cap and mask and sterile gown and sterile gloves and a large sterile sheetand hand hygiene and 2% chlorhexidine for cutaneous antisepsis).Ultrasound guidance was used for vascular access in the common f emoralartery. Real time ultrasound was used for evaluation of potential accesssites and documentation of selected access vessel patency. Concurrentreal- time ultrasound visualization was used in vascular needle entry. Apermanent recorded ultrasound image was obtained.The skin and subcutaneous tissues ov erlying the common femoral artery wereanesthetized with lidocaine. The common femoral artery was accessed using amicropuncture needle and sheath using real- time ultrasound guidance. Theinner dilator and wire were removed and a Bentson wire was advanced intothe abdominal aorta. The micropuncture sheathwas then exchanged for a 5French slender vascular sheath over the wire. The inner dilator was removedand the side port was connected to a gravity bag for continuous salineflush.A 5 [place]i Olman catheter was inserted over the wire. The celiac arterywas selectively catheterized and diagnostic angiography was performed(first order), which showed no active extravasation or pseudoaneurysm.There is diffuse vasospasm of the superior pancreaticoduodenal artery andgastroepiploic arteries.Using a microcatheter and microwire, the gastroduodenal artery wasselectively catheterized and gastroduodenal angiography was performed(third order) which demonstrated opacification of the right gastroepiploicartery, superior pancreaticoduodenal artery and small branches of theduodenal artery without evidence of active extravasation. Diffuse vasospasmof the distal branches of the GDA territory was again noted.Afterwards, the superior pancreaticoduodenal artery was selectivelycatheterized and diagnostic angiography performed (additional third order),which was negative for active bleed. Given the findings seen on thecomparison endoscopy of suspected active bleeding in the gastroduodenalterritory and findings of diffuse vasospasm in this territory, the decisionwas made to perform embolization of the gastroduodenal artery territory.Multiple 2 and 3 mm coils were placed extending from the superiorpancreaticoduodenal artery extending to the origin of the gastroduodenalartery. Follow-up angiography from the common hepatic artery (second order)demonstrates successful embolization without opacification of the GDA andonly minimal opacification of the GDA stump. The hepatic artery branchesare unremarkable.The superior mesenteric artery was then catheterized and angiography wasperformed (first order). No active extravasation or pseudoaneurysmidentified.A right femoral arteriogram was performed through the sheath indicating thepatient was an adequate candidate for closure device. Of note, patient hashigh bifurcation ofthe femoral arteries. All wires and catheters wereremoved and the right groin site was closed with aMynx device. Steriledressing was placed after hemostasis was ensured. The patient tolerated theprocedure well. IMPRESSIONSuccessful mesenteric angiogram and coil embolization of the gastroduodenalartery vascular territory, as described above.I, as teaching physician, was present during the entire procedure and/orduring the greenwood components.Preliminary Report Dictated by Resident: Lex Wilhelm, Abel Sweeney MD., have reviewed this study and agree with the abovereport.[facility] (ALB,T.PRO,BILI T,BU/BC,ALT,AST,ALK PHOS)2020-04-10 19:57:00 Test Item Value Reference Range Interpretation Comments TOTAL BILI (test code = 4554565716) 0.5 mg/dL 0.1-1.1 BILI UNCON (test code = 2255909636) 0.4 mg/dL 0.1-1.1 BILI CONJ (test code = 1002560021) 0.0 mg/dL 0-0.3 T PROTEIN (test code = 4562907537) 5.0 g/dL 6.3-8.2 L ALBUMIN (test code = 1097227976) 2.3 g/dL 3.5-5 L ALK PHOS (test code = 1090629863) 102 U/L 34-122 ALTv (test code = 1742-6) 20 U/L 5-35 AST(SGOT) (test code = 7072055541) 29 U/L 13-40 Lab Interpretation (test code = Abnormal 57375-8) [facility] GLUCOSE (AUTOMATED)2020-04-10 18:25:00 Test Item Value Reference Range Interpretation Comments POCT GLU (test code = 6287921270) 164 mg/dL 70-110 H Lab Interpretation (test code = Abnormal 81851-8) [facility] GLUCOSE (AUTOMATED)2020-04-10 15:54:00 Test Item Value Reference Range Interpretation Comments POCT GLU (test code = 1781731357) 121 mg/dL 70-110 H Lab Interpretation (test code = Abnormal 34415-2) [facility] [id number] 15:42:48 Enteric tube terminates at the gastric body. Preliminary Report Dictated by Resident: Rachael Barnes I reviewed this study and agree. I, Roberto Arevalo MD., have reviewed this study and agree with theabove report.EXAM: XR KUB HISTORY: 80 years-old Female presenting with ng tube placement COMPARISON: 04/05/2020. TECHNIQUE: Frontal views of the abdomen were obtained. FINDINGS: An enteric tube tipterminates at the gastric body with the sidehole justdistal to the GE junction. Scattered gas is seen in the small and largebowel. [facility], Radiant Results Inft User - 04/10/2020 9:43 AM CSTEXAM: XR KARTHIKEYANISTORY: 80 years-old Female presenting with ng tube placement COMPARISON: 04/05/2020. TECHNIQUE: Frontal views of the abdomen were obtained.FINDINGS:An enteric tube tip terminates at the gastric body with the sidehole justdistal to the GE junction. Scattered gas is seen in the small and largebowel.IMPRESSIONEnteric tube terminates at the gastric body.Preliminary Report Dictated by Resident: Rachael Lorenzo reviewed this study and agree.IRoberto MD., have reviewed this study and agree withtheabove report.[facility] WITH [id number] 13:03:00 Test Item Value Reference Range Interpretation Comments WBC (test code = See_Comment H [Automated 6690-2) message] The system which generated this result transmit shira reference range : 4.30 - 11.10 10*3/?L. The reference range was not used to interpret this result as normal/abnormal . RBC (test code = See_Comment L [Automated 789-8) message] The system which generated this result transmit shira reference range : 3.93 - 5.25 10*6/?L. The reference range was not used to interpret this result as normal/abnormal . HGB (test code = 8.2 g/dL 11.6-15 L 718-7) HCT (test code = 25.1 % 35.7-45.2 L 4544-3) MCV (test code = 91.6 fL 80.6-95.5 787-2) MCH (test code = 29.9 pg 25.9-32.8 785-6) MCHC (test code = 32.7 g/dL 31.6-35.1 786-4) RDW-SD (test code = 55.8 fL 39-49.9 H 15074-5) RDW-CV (test code = 18.9 % 12-15.5 H 788-0) PLT (test code = See_Comment L [Automated 777-3) message] The system which generated this result transmit shira reference range : 166 - 358 10*3/ ?L. The reference range was not u sed to interpret th is result as normal/abnormal . MPV (test code = 11.8 fL 9.5-12.9 51570-9) NRBC/100 WBC (test See_Comment [Automat ed code = 7090101092) message] The system which generated this result transmit shira reference range : 0.0 - 10.0 /100 WBCs. The reference range was not used to interpret this result as normal/abnormal . NRBC x10^3 (test code <0.01 See_Comment [Auto mated = 6200442932) message] The system which generated this result transmit shira reference range : 10*3/?L. The reference range was not used to interpret this result as normal/abnormal . GRAN MAT (NEUT) % 82.3 % (test code = 770-8) IMM GRAN % (test code 3.50 % = 0657535410) LYMPH % (test code = 4.4 % 736-9) MONO % (test code = 9.3 % 5905-5) EOS % (test code = 0.3 % 713-8) BASO % (test code = 0.2 % 706-2) GRAN MAT x10^3(ANC) 14.42 10*3/uL 1.88-7.09 H (test code = 7539479012) IMM GRAN x10^3 (test 0.61 10*3/uL 0-0.06 H code = 8091043849) LYMPH x10^3 (test code 0.78 10*3/uL 1.32-3.29 L = 731-0) MONO x10^3 (test code 1.64 10*3/uL 0.33-0.92 H = 742-7) EOS x10^3 (test code = 0.06 10*3/uL 0.03-0.39 711-2) BASO x10^3 (test code 0.04 10*3/uL 0.01-0.07 = 704-7) BASO STIPPLING (test Present A code = 703-9) TOXIC CHANGES (test Present A code = 803-7) Lab Interpretation Abnormal (test code = 62675-1) [facility]NA, K, CL, CO2, GLUCOSE, BUN, CREATININE, CA)2020-04-10 12:56:00 Test Item Value Reference Range Interpretation Comments NA (test code = 143 mmol/L 135-145 0253779489) K (test code = 3.6 mmol/L 3.5-5 0149175027) CL (test code = 117 mmol/L 98-108 H 7949255250) CO2 TOTAL (test code = 23 mmol/L 23-31 0585725969) AGAP (test code = 2-16 7049391289) BUN (test code = 25 mg/dL 7-23 H 5597236664) GLUCOSE (test code = 123 mg/dL 70-110 H 8344115746) CREATININE (test code = 0.98 mg/dL 0.5-1.04 7293999871) CALCIUM (test code = 7.6 mg/dL 8.6-10.6 L 1938398511) eGFR Calculation mL/min/1.73m2 (Non-) (test code = 0332296556) eGFR Calculation mL/min/1.73m2 () (test code = 4225363473) JACI (test code = JACI) Association of Glomerular Filtration Rate (GFR) and Staging of Kidney Disease* + --+ --+ ------+| GFR (mL/min/1.73 m2) ?| With Kidney Damage ?| ?Without Kidney Damage+ --------+ --------+ +| ?>90 ?| ?Stage one ?| ? Normal ?+ ---+ ---+ -------+| ?60-89 ?| ?Stage two ?| ? Decreased GFR ? + --+ --+ ------+| ?30-59 ?| ?Stage three ?| ? Stage three ? + --+ --+ ------+| ?15-29 ?| ?Stage four ? | ? Stage four ?+ ---+ ---+ -------+| ?<15 (or dialysis) ? ?| ?Stage five ? | ? Stage five ?+ ---+ ---+ -------+ *Each stage assumes the associated GFR level has been in effect for at least three months. ?Stages 1 to 5, with or without kidney disease, indicate chronic kidney disease. Notes: Determination of stages one and two (with eGFR >59mL/min/1.73 m2) requires estimation of kidney damage for at least three months as defined by structural or functional abnormalities of the kidney, manifested by either:Pathological abnormalities or Markers of kidney damage (including abnormalities in the composition of the blood or urine or abnormalities in imaging tests). Lab Interpretation Abnormal (test code = 01019-6) [facility] GLUCOSE (AUTOMATED)2020-04-10 03:48:00 Test Item Value Reference Range Interpretation Comments POCT GLU (test code = 6478902769) 97 mg/dL 70-110 Lab Interpretation (test code = Normal 56674-8) [facility] GLUCOSE (AUTOMATED)2020-04-10 00:21:00 Test Item Value Reference Range Interpretation Comments POCT GLU (test code = 5673995741) 107 mg/dL 70-110 Lab Interpretation (test code = Normal 02425-4) [facility] METABOLIC PANEL (NA, K, CL, CO2, GLUCOSE, BUN, CREATININE, CA)2020-04-09 12:37:00 Test Item Value Reference Range Interpretation Comments NA (test code = 137 mmol/L 135-145 3869044525) K (test code = 4.0 mmol/L 3.5-5 3347218023) CL (test code = 113 mmol/L 98-108 H 2796538373) CO2 TOTAL (test code = 20 mmol/L 23-31 L 9663492459) AGAP (test code = 2-16 8184780144) BUN (test code = 35 mg/dL 7-23 H 6709094441) GLUCOSE (test code = 126 mg/dL 70-110 H 3671304255) CREATININE (test code = 1.04 mg/dL 0.5-1.04 2940566792) CALCIUM (test code = 7.6 mg/dL 8.6-10.6 L 6680136432) eGFR Calculation mL/min/1.73m2 (Non-) (test code = 5866246126) eGFR Calculation mL/min/1.73m2 () (test code = 9535196887) JACI (test code = JACI) Association of Glomerular Filtration Rate (GFR) and Staging of Kidney Disease* + --+ --+ ------+| GFR (mL/min/1.73 m2) ?| With Kidney Damage ?| ?Without Kidney Damage+ --------+ --------+ +| ?>90 ?| ?Stage one ?| ? Normal ?+ ---+ ---+ -------+| ?60-89 ?| ?Stage two ?| ? Decreased GFR ? + --+ --+ ------+| ?30-59 ?| ?Stage three ?| ? Stage three ? + --+ --+ ------+| ?15-29 ?| ?Stage four ? | ? Stage four ?+ ---+ ---+ -------+| ?<15 (or dialysis) ? ?| ?Stage five ? | ? Stage five ?+ ---+ ---+ -------+ *Each stage assumes the associated GFR level has been in effect for at least three months. ?Stages 1 to 5, with or without kidney disease, indicate chronic kidney disease. Notes: Determination of stages one and two (with eGFR >59mL/min/1.73 m2) requires estimation of kidney damage for at least three months as defined by structural or functional abnormalities of the kidney, manifested by either:Pathological abnormalities or Markers of kidney damage (including abnormalities in the composition of the blood or urine or abnormalities in imaging tests). Lab Interpretation Abnormal (test code = 54152-2) [facility] 12:37:00 Test Item Value Reference Range Interpretation Comments MAGNESIUM (test code = 9288880233) 1.7 mg/dL 1.7-2.4 Lab Interpretation (test code = Normal 24524-6) [facility]29 12:18:00 Test Item Value Reference Range Interpretation Comments Fibrinogen (test code = 7390109014) 491 mg/dL 167-453 H Lab Interpretation (test code = Abnormal 24410-2) [facility] / [id number] 12:15:00 Test Item Value Reference Range Interpretation Comments PROTIME PATIENT (test See_Comment [Auto mated message] code = 5964-2) The system [employer] generated this result transmitted ref erence range: 10.1 - 1 2.6 Seconds. The re ference range was not u sed to interpret this result as normal/abnor mal. INR (test code = 6301-6) Nor mal INR <1.1; Warfarin Therap eutic range 2.0 to 3. 0 or 2.5 to 3.5, dep ending upon the indica tions. Lab Interpretation (test Normal code = 43407-1) [facility]2020-04-09 03:48:00 Test Item Value Reference Range Interpretation Comments POCT GLU (test code = 4953857638) 160 mg/dL 70-110 H Lab Interpretation (test code = Abnormal 44031-3) [facility] METABOLIC PANEL (NA, K, CL, CO2, GLUCOSE, BUN, CREATININE, CA)2020-04-09 00:08:00 Test Item Value Reference Range Interpretation Comments NA (test code = 135 mmol/L 135-145 1377635091) K (test code = 3.8 mmol/L 3.5-5 1252449872) CL (test code = 112 mmol/L 98-108 H 5640260013) CO2 TOTAL (test code = 21 mmol/L 23-31 L 1196817758) AGAP (test code = 2-16 4223993307) BUN (test code = 40 mg/dL 7-23 H 3897470754) GLUCOSE (test code = 147 mg/dL 70-110 H 5111002072) CREATININE (test code = 1.26 mg/dL 0.5-1.04 H 4924552300) CALCIUM (test code = 7.1 mg/dL 8.6-10.6 L 4267318727) eGFR Calculation mL/min/1.73m2 (Non-) (test code = 5979019560) eGFR Calculation mL/min/1.73m2 () (test code = 1591700934) JACI (test code = JACI) Association of Glomerular Filtration Rate (GFR) and Staging of Kidney Disease* + --+ --+ ------+| GFR (mL/min/1.73 m2) ?| With Kidney Damage ?| ?Without Kidney Damage+ --------+ --------+ +| ?>90 ?| ?Stage one ?| ? Normal ?+ ---+ ---+ -------+| ?60-89 ?| ?Stage two ?| ? Decreased GFR ? + --+ --+ ------+| ?30-59 ?| ?Stage three ?| ? Stage three ? + --+ --+ ------+| ?15-29 ?| ?Stage four ? | ? Stage four ?+ ---+ ---+ -------+| ?<15 (or dialysis) ? ?| ?Stage five ? | ? Stage five ?+ ---+ ---+ -------+ *Each stage assumes the associated GFR level has been in effect for at least three months. ?Stages 1 to 5, with or without kidney disease, indicate chronic kidney disease. Notes: Determination of stages one and two (with eGFR >59mL/min/1.73 m2) requires estimation of kidney damage for at least three months as defined by structural or functional abnormalities of the kidney, manifested by either:Pathological abnormalities or Markers of kidney damage (including abnormalities in the composition of the blood or urine or abnormalities in imaging tests). Lab Interpretation Abnormal (test code = 80665-8) [facility] [id number] 23:31:00 Test Item Value Reference Range Interpretation Comments OSMO U (test code = See_Comment [Automa shira message] 5983354959) The system [employer] generated this result transmitted ref erence range: 50-1,100 mOsm/kg. The re ference range was not u sed to interpret this result as normal/abnor mal. Lab Interpretation (test Normal code = 85297-7) [facility] 23:26:00 Test Item Value Reference Range Interpretation Comments APPEARANCE (test code = Cloudy Clear A 6789871516) COLOR (test code = Yellow Yellow 6657777593) PH (test code = 4.8-8.0 2138677965) SP GRAVITY (test code = 1.003-1.030 7856029908) GLU U QUAL (test code = 50 mg/dL Normal A 4753730626) BLOOD (test code = 1+ Negative A 7868692676) KETONES (test code = Negative Negative 9110239996) PROTEIN (test code = 30 mg/dL Negative A 2887-8) UROBILIN (test code = Normal Normal 4704875736) BILIRUBIN (test code = Negative Negative 5527784987) NITRITE (test code = Negative Negative 6299298141) LEUK TRENA (test code = 75/uL Negative A 3392501384) RBC/HPF (test code = See_Comment H [Autom ated message] 2478577996) The system [employer] generated this result transmitted ref erence range: 0 - 3 HP F. The reference range was not used to int erpret this result as normal/abnormal . WBC/HPF (test code = See_Comment H [Autom ated message] 2044878494) The system [employer] generated this result transmitted ref erence range: 0 - 5 HP F. The reference range was not used to int erpret this result as normal/abnormal . BACTERIA (test code = Few Negative A 8759262848) MUCOUS (test code = Slight Negative LPF A 1848447939) AMORPHOUS (test code = Rare Rare HPF 0529216975) SQ EPITH (test code = See_Comment [Auto mated message] 6925708115) The system [employer] generated this result transmitted ref erence range: <=2 HPF. The reference range was not used to int erpret this result as normal/abnormal . YEAST BUD (test code = See_Comment H [Aut omated message] 4791896034) The system [employer] generated this result transmitted ref erence range: <=1 HPF. The reference range was not used to int erpret this result as normal/abnormal . Lab Interpretation (test Abnormal code = 40773-0) [facility]2020-[facility] 23:07:00 Test Item Value Reference Range Interpretation Comments POCT GLU (test code = 3249223813) 166 mg/dL 70-110 H Lab Interpretation (test code = Abnormal 80741-5) [facility]INE [id number] 22:24:00 Test Item Value Reference Range Interpretation Comments NA URINE (test code = 4648000952) 87 mmol/L [facility] URINE [id number] 22:24:00 Test Item Value Reference Range Interpretation Comments K URINE (test code = 7808569982) 15.7 mmol/L [facility] [id number] 21:01:00 Test Item Value Reference Range Interpretation Comments Blood Culture-Aerobic No organisms No growth Previo us (test code = 42739-4) isolated prelim inary verified result was Culture In Progress on 04/03/2020 at 1801 CSTPreviou s preliminary verified result was No growth a t 24 hours on 04/04/2020 at 1501 CSTPreviou s preliminary verified result was No growth a t 48 hours on 04/05/2020 at 1501 CSTPreviou s preliminary verified result was No growth a t 72 hours on 04/06/2020 at 1501 [employer] Blood No organisms No growth Previous Culture-Anaerobic isolated preliminar y (test code = 09296-1) verifi ed result was Culture In Progress on 04/03/2020 at 1801 CSTPreviou s preliminary verified result was No growth a t 24 hours on 04/04/2020 at 1501 CSTPreviou s preliminary verified result was No growth a t 48 hours on 04/05/2020 at 1501 CSTPreviou s preliminary verified result was No growth a t 72 hours on 04/06/2020 at 1501 [employer] Lab Interpretation Normal (test code = 59889-7) [facility] GLUCOSE (AUTOMATED)2020-04-08 20:03:00 Test Item Value Reference Range Interpretation Comments POCT GLU (test code = 1704280859) 170 mg/dL 70-110 H Lab Interpretation (test code = Abnormal 57128-8) [facility] METABOLIC PANEL (NA, K, CL, CO2, GLUCOSE, BUN, CREATININE, CA)2020-04-08 16:26:00 Test Item Value Reference Range Interpretation Comments NA (test code = 136 mmol/L 135-145 0489618880) K (test code = 3.8 mmol/L 3.5-5 2014981356) CL (test code = 113 mmol/L 98-108 H 7743357065) CO2 TOTAL (test code = 19 mmol/L 23-31 L 7256307150) AGAP (test code = 2-16 8894446532) BUN (test code = 44 mg/dL 7-23 H 5541312757) GLUCOSE (test code = 165 mg/dL 70-110 H 4898280643) CREATININE (test code = 1.25 mg/dL 0.5-1.04 H 6250620065) CALCIUM (test code = 7.1 mg/dL 8.6-10.6 L 8931634834) eGFR Calculation mL/min/1.73m2 (Non-) (test code = 0168400317) eGFR Calculation mL/min/1.73m2 () (test code = 5006417033) JACI (test code = JACI) Association of Glomerular Filtration Rate (GFR) and Staging of Kidney Disease* + --+ --+ ------+| GFR (mL/min/1.73 m2) ?| With Kidney Damage ?| ?Without Kidney Damage+ --------+ --------+ +| ?>90 ?| ?Stage one ?| ? Normal ?+ ---+ ---+ -------+| ?60-89 ?| ?Stage two ?| ? Decreased GFR ? + --+ --+ ------+| ?30-59 ?| ?Stage three ?| ? Stage three ? + --+ --+ ------+| ?15-29 ?| ?Stage four ? | ? Stage four ?+ ---+ ---+ -------+| ?<15 (or dialysis) ? ?| ?Stage five ? | ? Stage five ?+ ---+ ---+ -------+ *Each stage assumes the associated GFR level has been in effect for at least three months. ?Stages 1 to 5, with or without kidney disease, indicate chronic kidney disease. Notes: Determination of stages one and two (with eGFR >59mL/min/1.73 m2) requires estimation of kidney damage for at least three months as defined by structural or functional abnormalities of the kidney, manifested by either:Pathological abnormalities or Markers of kidney damage (including abnormalities in the composition of the blood or urine or abnormalities in imaging tests). Lab Interpretation Abnormal (test code = 42140-0) [facility] [id number] 14:01:00 Test Item Value Reference Range Interpretation Comments Blood Culture-Aerobic No organisms No growth Previo us (test code = 43090-4) isolated prelim inary verified result was Culture In Progress on 04/03/2020 at 1101 CSTPreviou s preliminary verified result was No growth a t 24 hours on 04/04/2020 at 0801 CSTPreviou s preliminary verified result was No growth a t 48 hours on 04/05/2020 at 0801 CSTPreviou s preliminary verified result was No growth a t 72 hours on 04/06/2020 at 0801 [employer] Blood No organisms No growth Previous Culture-Anaerobic isolated preliminar y (test code = 19519-8) verifi ed result was Culture In Progress on 04/03/2020 at 1101 CSTPreviou s preliminary verified result was No growth a t 24 hours on 04/04/2020 at 0801 CSTPreviou s preliminary verified result was No growth a t 48 hours on 04/05/2020 at 0801 CSTPreviou s preliminary verified result was No growth a t 72 hours on 04/06/2020 at 0801 [employer] Lab Interpretation Normal (test code = 21702-1) [facility] 09:55:00 Test Item Value Reference Range Interpretation Comments MAGNESIUM (test code = 7223121535) 1.5 mg/dL 1.7-2.4 L Lab Interpretation (test code = Abnormal 03143-0) [facility] (NA, K, CL, CO2, GLUCOSE, BUN, CREATININE, CA)2020-04-08 09:55:00 Test Item Value Reference Range Interpretation Comments NA (test code = 139 mmol/L 135-145 4382116111) K (test code = 4.0 mmol/L 3.5-5 9194097655) CL (test code = 118 mmol/L 98-108 H 8386329829) CO2 TOTAL (test code = 19 mmol/L 23-31 L 2901964577) AGAP (test code = 2-16 0970491823) BUN (test code = 51 mg/dL 7-23 H 1229947537) GLUCOSE (test code = 146 mg/dL 70-110 H 0012055641) CREATININE (test code = 1.46 mg/dL 0.5-1.04 H 4833773211) CALCIUM (test code = 7.2 mg/dL 8.6-10.6 L 3822652035) eGFR Calculation mL/min/1.73m2 (Non-) (test code = 6603436611) eGFR Calculation mL/min/1.73m2 () (test code = 5313707335) JACI (test code = JACI) Association of Glomerular Filtration Rate (GFR) and Staging of Kidney Disease* + --+ --+ ------+| GFR (mL/min/1.73 m2) ?| With Kidney Damage ?| ?Without Kidney Damage+ --------+ --------+ +| ?>90 ?| ?Stage one ?| ? Normal ?+ ---+ ---+ -------+| ?60-89 ?| ?Stage two ?| ? Decreased GFR ? + --+ --+ ------+| ?30-59 ?| ?Stage three ?| ? Stage three ? + --+ --+ ------+| ?15-29 ?| ?Stage four ? | ? Stage four ?+ ---+ ---+ -------+| ?<15 (or dialysis) ? ?| ?Stage five ? | ? Stage five ?+ ---+ ---+ -------+ *Each stage assumes the associated GFR level has been in effect for at least three months. ?Stages 1 to 5, with or without kidney disease, indicate chronic kidney disease. Notes: Determination of stages one and two (with eGFR >59mL/min/1.73 m2) requires estimation of kidney damage for at least three months as defined by structural or functional abnormalities of the kidney, manifested by either:Pathological abnormalities or Markers of kidney damage (including abnormalities in the composition of the blood or urine or abnormalities in imaging tests). Lab Interpretation Abnormal (test code = 18125-2) [facility]2020-[facility]28 09:54:00 Test Item Value Reference Range Interpretation Comments Fibrinogen (test code = 5352325310) 387 mg/dL 167-453 Lab Interpretation (test code = Normal 78076-8) [facility] / [id number] 09:43:00 Test Item Value Reference Range Interpretation Comments PROTIME PATIENT (test See_Comment [Auto mated message] code = 5964-2) The system [employer] generated this result transmitted ref erence range: 10.1 - 1 2.6 Seconds. The re ference range was not u sed to interpret this result as normal/abnor mal. INR (test code = 6301-6) Nor mal INR <1.1; Warfarin Therap eutic range 2.0 to 3. 0 or 2.5 to 3.5, dep ending upon the indica tions. Lab Interpretation (test Normal code = 70240-8) [facility] WITHOUT [id number] 09:35:00 Test Item Value Reference Range Interpretation Comments WBC (test code = 6690-2) See_Comment H [A utomated message] The system [employer] generated this result transmit shira reference range : 4.30 - 11.10 10*3/?L. The reference range was not used to interpret this result as normal/abnormal . RBC (test code = 789-8) See_Comment L [Au tomated message] The system [employer] generated this result transmit shira reference range : 3.93 - 5.25 10* 6/?L. The reference r louise was not used to interpret this result as normal/abnormal . HGB (test code = 718-7) 7.6 g/dL 11.6-15 L HCT (test code = 4544-3) 22.6 % 35.7-45.2 L MCH (test code = 785-6) 29.8 pg 25.9-32.8 MCV (test code = 787-2) 88.6 fL 80.6-95.5 MCHC (test code = 786-4) 33.6 g/dL 31.6-35.1 PLT (test code = 777-3) See_Comment L [Au tomated message] The system [employer] generated this result transmit shira reference range : 166 - 358 10*3/?L. The reference range was not used to interpret this result as normal/abnormal . MPV (test code = 12.4 fL 9.5-12.9 04986-2) RDW-CV (test code = 18.4 % 12-15.5 H 788-0) RDW-SD (test code = 55.8 fL 39-49.9 H 27898-0) NRBC x10^3 (test code = See_Comment [Au tomated message] 2847414669) The system [employer] generated this result transmit shira reference range : 10*3/?L. The reference range was not used to interpret this result as normal/abnormal . NRBC/100 WBC (test code See_Comment [Au tomated message] = 1736557862) The system [facility] generated this result transmit shira reference range : 0.0 - 10.0 /100 WBC s. The reference r louise was not used to interpret this result as normal/abnormal . IPF % (test code = 0702614801) Lab Interpretation (test Abnormal code = 02332-0) [facility] METABOLIC PANEL (NA, K, CL, CO2, GLUCOSE, BUN, CREATININE, CA)2020-04-08 03:23:00 Test Item Value Reference Range Interpretation Comments NA (test code = 142 mmol/L 135-145 0885011508) K (test code = 3.7 mmol/L 3.5-5 2191065327) CL (test code = 119 mmol/L 98-108 H 2609429518) CO2 TOTAL (test code = 18 mmol/L 23-31 L 7579042602) AGAP (test code = 2-16 0195109047) BUN (test code = 58 mg/dL 7-23 H 5545184338) GLUCOSE (test code = 122 mg/dL 70-110 H 0279049339) CREATININE (test code = 1.60 mg/dL 0.5-1.04 H 8190225977) CALCIUM (test code = 7.4 mg/dL 8.6-10.6 L 3905642946) eGFR Calculation mL/min/1.73m2 (Non-) (test code = 7635131324) eGFR Calculation mL/min/1.73m2 () (test code = 1657576011) JACI (test code = JACI) Association of Glomerular Filtration Rate (GFR) and Staging of Kidney Disease* + --+ --+ ------+| GFR (mL/min/1.73 m2) ?| With Kidney Damage ?| ?Without Kidney Damage+ --------+ --------+ +| ?>90 ?| ?Stage one ?| ? Normal ?+ ---+ ---+ -------+| ?60-89 ?| ?Stage two ?| ? Decreased GFR ? + --+ --+ ------+| ?30-59 ?| ?Stage three ?| ? Stage three ? + --+ --+ ------+| ?15-29 ?| ?Stage four ? | ? Stage four ?+ ---+ ---+ -------+| ?<15 (or dialysis) ? ?| ?Stage five ? | ? Stage five ?+ ---+ ---+ -------+ *Each stage assumes the associated GFR level has been in effect for at least three months. ?Stages 1 to 5, with or without kidney disease, indicate chronic kidney disease. Notes: Determination of stages one and two (with eGFR >59mL/min/1.73 m2) requires estimation of kidney damage for at least three months as defined by structural or functional abnormalities of the kidney, manifested by either:Pathological abnormalities or Markers of kidney damage (including abnormalities in the composition of the blood or urine or abnormalities in imaging tests). Lab Interpretation Abnormal (test code = 98310-6) [facility] GLUCOSE (AUTOMATED)2020-04-08 02:30:00 Test Item Value Reference Range Interpretation Comments POCT GLU (test code = 2680665682) 131 mg/dL 70-110 H Lab Interpretation (test code = Abnormal 49150-1) [facility] GLUCOSE (AUTOMATED)2020-04-08 01:48:00 Test Item Value Reference Range Interpretation Comments POCT GLU (test code = 2128100496) 125 mg/dL 70-110 H Lab Interpretation (test code = Abnormal 17016-6) [facility] METABOLIC PANEL (NA, K, CL, CO2, GLUCOSE, BUN, CREATININE, CA)2020-04-07 20:43:00 Test Item Value Reference Range Interpretation Comments NA (test code = 143 mmol/L 135-145 1295473489) K (test code = 4.6 mmol/L 3.5-5 0158313007) CL (test code = 124 mmol/L 98-108 H 2685745871) CO2 TOTAL (test code = 16 mmol/L 23-31 L 4435114027) AGAP (test code = 2-16 4817097895) BUN (test code = 63 mg/dL 7-23 H 0320582514) GLUCOSE (test code = 109 mg/dL 70-110 5310769533) CREATININE (test code = 1.74 mg/dL 0.5-1.04 H 4768035482) CALCIUM (test code = 7.7 mg/dL 8.6-10.6 L 5724906756) eGFR Calculation mL/min/1.73m2 (Non-) (test code = 1422913766) eGFR Calculation mL/min/1.73m2 () (test code = 4173801220) JACI (test code = JACI) Association of Glomerular Filtration Rate (GFR) and Staging of Kidney Disease* + --+ --+ ------+| GFR (mL/min/1.73 m2) ?| With Kidney Damage ?| ?Without Kidney Damage+ --------+ --------+ +| ?>90 ?| ?Stage one ?| ? Normal ?+ ---+ ---+ -------+| ?60-89 ?| ?Stage two ?| ? Decreased GFR ? + --+ --+ ------+| ?30-59 ?| ?Stage three ?| ? Stage three ? + --+ --+ ------+| ?15-29 ?| ?Stage four ? | ? Stage four ?+ ---+ ---+ -------+| ?<15 (or dialysis) ? ?| ?Stage five ? | ? Stage five ?+ ---+ ---+ -------+ *Each stage assumes the associated GFR level has been in effect for at least three months. ?Stages 1 to 5, with or without kidney disease, indicate chronic kidney disease. Notes: Determination of stages one and two (with eGFR >59mL/min/1.73 m2) requires estimation of kidney damage for at least three months as defined by structural or functional abnormalities of the kidney, manifested by either:Pathological abnormalities or Markers of kidney damage (including abnormalities in the composition of the blood or urine or abnormalities in imaging tests). Lab Interpretation Abnormal (test code = 67458-1) [facility]00 Test Item Value Reference Range Interpretation Comments MAGNESIUM (test code = 5906544450) 1.7 mg/dL 1.7-2.4 Lab Interpretation (test code = Normal 27001-2) [facility] [id number] 20:22:00 Test Item Value Reference Range Interpretation Comments WBC (test code = 6690-2) See_Comment H [A utomated message] The system [employer] generated this result transmit shira reference range : 4.30 - 11.10 10*3/?L. The reference range was not used to interpret this result as normal/abnormal . RBC (test code = 789-8) See_Comment L [Au tomated message] The system [employer] generated this result transmit shira reference range : 3.93 - 5.25 10* 6/?L. The reference r louise was not used to interpret this result as normal/abnormal . HGB (test code = 718-7) 8.1 g/dL 11.6-15 L HCT (test code = 4544-3) 24.6 % 35.7-45.2 L MCH (test code = 785-6) 29.8 pg 25.9-32.8 MCV (test code = 787-2) 90.4 fL 80.6-95.5 MCHC (test code = 786-4) 32.9 g/dL 31.6-35.1 PLT (test code = 777-3) See_Comment L [Au tomated message] The system [employer] generated this result transmit shira reference range : 166 - 358 10*3/?L. The reference range was not used to interpret this result as normal/abnormal . MPV (test code = 12.0 fL 9.5-12.9 05838-3) RDW-CV (test code = 18.3 % 12-15.5 H 788-0) RDW-SD (test code = 57.6 fL 39-49.9 H 44392-6) NRBC x10^3 (test code = See_Comment [Au tomated message] 0983448984) The system [employer] generated this result transmit shira reference range : 10*3/?L. The reference range was not used to interpret this result as normal/abnormal . NRBC/100 WBC (test code See_Comment [Au tomated message] = 9970242909) The system [facility] generated this result transmit shira reference range : 0.0 - 10.0 /100 WBC s. The reference r louise was not used to interpret this result as normal/abnormal . IPF % (test code = 5740250818) Lab Interpretation (test Abnormal code = 26431-8) [facility] [id number] 20:12:42 The tip and side- port of the enteric tube terminates within the gastriclumen. Preliminary Report Dictated by Resident: Deng Mcintosh MD., have reviewed this study and agree withthe above report.EXAM: XR KUB HISTORY: 80 years-old Female NGT placement TECHNIQUE: Frontal viewof the abdomen and pelvis COMPARISON: Chest radiograph 03/28/2020 FINDINGS: The tip of the enteric tube projects over the proximal body of the stomach. The visualized bowel gas pattern is unremarkable and does not suggestobstruction. Multilevel degenerative changes affect the thoracic spine.Embolization coils project over the lumbar spine. [facility], Radiant Results Inft User - 04/07/2020 2:13 PM CSTEXAM: XR KUBHISTORY: 80 years-old Female NGT placement TECHNIQUE: Frontal view of the abdomen and pelvisCOMPARISON: Chest radiograph 03/28/2020FINDINGS:The tip of the enteric tube projects over the proximalbody of the stomach.The visualized bowel gas pattern is unremarkable and does not suggestobstruction. Multilevel degenerative changes affect the thoracic spine.Embolization coils project over the lumbar spine.IMPRESSIONThe tip and side-port of the enteric tube terminates within the gastriclumen.Preliminary Report Dictated by Resident: Deng Mercado MD., have reviewed this study and agree withthe above report. [facility] GLUCOSE (AUTOMATED)2020-04-07 18:25:00 Test Item Value Reference Range Interpretation Comments POCT GLU (test code = 8479834458) 119 mg/dL 70-110 H Lab Interpretation (test code = Abnormal 45210-8) [facility] GLUCOSE (AUTOMATED)2020-04-07 14:25:00 Test Item Value Reference Range Interpretation Comments POCT GLU (test code = 4061020171) 106 mg/dL 70-110 Lab Interpretation (test code = Normal 14880-9) [facility] (NA, K, CL, CO2, GLUCOSE, BUN, CREATININE, CA)2020-04-07 10:40:00 Test Item Value Reference Range Interpretation Comments NA (test code = 146 mmol/L 135-145 H 3309996750) K (test code = 3.4 mmol/L 3.5-5 L 2730677515) CL (test code = 127 mmol/L 98-108 H 3245045972) CO2 TOTAL (test code = 14 mmol/L 23-31 L 0255094346) AGAP (test code = 2-16 6479459843) BUN (test code = 77 mg/dL 7-23 H 9527474208) GLUCOSE (test code = 90 mg/dL 70-110 9240288797) CREATININE (test code = 1.79 mg/dL 0.5-1.04 H 8825288577) CALCIUM (test code = 7.6 mg/dL 8.6-10.6 L 7774383132) eGFR Calculation mL/min/1.73m2 (Non-) (test code = 9692002415) eGFR Calculation mL/min/1.73m2 () (test code = 0402154834) JACI (test code = JACI) Association of Glomerular Filtration Rate (GFR) and Staging of Kidney Disease* + --+ --+ ------+| GFR (mL/min/1.73 m2) ?| With Kidney Damage ?| ?Without Kidney Damage+ --------+ --------+ +| ?>90 ?| ?Stage one ?| ? Normal ?+ ---+ ---+ -------+| ?60-89 ?| ?Stage two ?| ? Decreased GFR ? + --+ --+ ------+| ?30-59 ?| ?Stage three ?| ? Stage three ? + --+ --+ ------+| ?15-29 ?| ?Stage four ? | ? Stage four ?+ ---+ ---+ -------+| ?<15 (or dialysis) ? ?| ?Stage five ? | ? Stage five ?+ ---+ ---+ -------+ *Each stage assumes the associated GFR level has been in effect for at least three months. ?Stages 1 to 5, with or without kidney disease, indicate chronic kidney disease. Notes: Determination of stages one and two (with eGFR >59mL/min/1.73 m2) requires estimation of kidney damage for at least three months as defined by structural or functional abnormalities of the kidney, manifested by either:Pathological abnormalities or Markers of kidney damage (including abnormalities in the composition of the blood or urine or abnormalities in imaging tests). Lab Interpretation Abnormal (test code = 37607-2) [facility]2020-[facility]-27 07:41:00 Test Item Value Reference Range Interpretation Comments Fibrinogen (test code = 8255846409) 265 mg/dL 167-453 Lab Interpretation (test code = Normal 65387-5) [facility]PROTHROMBIN [facility] / [id number] 07:38:00 Test Item Value Reference Range Interpretation Comments PROTIME PATIENT (test See_Comment [Auto mated message] code = 5964-2) The system [employer] generated this result transmitted ref erence range: 10.1 - 1 2.6 Seconds. The re ference range was not u sed to interpret this result as normal/abnor mal. INR (test code = 6301-6) Nor mal INR <1.1; Warfarin Therap eutic range 2.0 to 3. 0 or 2.5 to 3.5, dep ending upon the indica tions. Lab Interpretation (test Normal code = 91285-8) [facility] WITHOUT [id number] 07:36:00 Test Item Value Reference Range Interpretation Comments WBC (test code = 6690-2) See_Comment H [A utomated message] The system [employer] generated this result transmit shira reference range : 4.30 - 11.10 10*3/?L. The reference range was not used to interpret this result as normal/abnormal . RBC (test code = 789-8) See_Comment L [Au tomated message] The system [employer] generated this result transmit shira reference range : 3.93 - 5.25 10* 6/?L. The reference r louise was not used to interpret this result as normal/abnormal . HGB (test code = 718-7) 7.5 g/dL 11.6-15 L HCT (test code = 4544-3) 22.1 % 35.7-45.2 L MCH (test code = 785-6) 29.6 pg 25.9-32.8 MCV (test code = 787-2) 87.4 fL 80.6-95.5 MCHC (test code = 786-4) 33.9 g/dL 31.6-35.1 PLT (test code = 777-3) See_Comment L [Au tomated message] The system [employer] generated this result transmit shira reference range : 166 - 358 10*3/?L. The reference range was not used to interpret this result as normal/abnormal . MPV (test code = 12.3 fL 9.5-12.9 30138-4) RDW-CV (test code = 17.5 % 12-15.5 H 788-0) RDW-SD (test code = 53.5 fL 39-49.9 H 96733-6) NRBC x10^3 (test code = See_Comment [Au tomated message] 2291315828) The system [employer] h generated this result transmit shira reference range : 10*3/?L. The reference range was not used to interpret this result as normal/abnormal . NRBC/100 WBC (test code See_Comment [Au tomated message] = 1094622548) The system [employer] generated this result transmit shira reference range : 0.0 - 10.0 /100 WBC s. The reference r louise was not used to interpret this result as normal/abnormal . IPF % (test code = 0768779036) Lab Interpretation (test Abnormal code = 67783-7) [facility] COVID [id number] 04:54:00COVID DMT InterpretationInterpretation/Recommendations: Molecular NAAT Tests for Active Infection with the SARS-CoV-2 Virus: This patient has a history of testing negative on multiple occasions for wyyGYXK-SjG-4 virus that causes COVID-19 illness, with no prior history of a positive result. The current test results are also negative. This most likely indicates that the patient does not have an active infection with the SARS-CoV-2 virus, especially if all of these tests coincide with the patient's current presentation. However, infection is not completely ruled out as the false negative rate for molecular NAAT testing using a nasopharyngeal sample can be up to 30%, mostly dependent on the timing of sample collection in relation to illness onset and any deficiencies in sampling techniques. If the patient continues to have persistent or worsening symptoms concerning for COVID-19 illness, a repeat NAAT test (PCR, Rapid ID Now, etc.) should be performed, at which time the SARS-CoV-2 virus - if present - may have reached a detectable viral load (usually peaking by the end of the first week of symptoms). Tests for IgM and/or IgG Antibodies to SARS-CoV-2 Virus: Testing for IgM and IgG antibodies 1-3 weeks after illness onset will indicate whether the patient has produced antibodies to the virus. At this time, it is not known if the production of antibodies - specifically IgG antibodies - indicates whether the patient is immune to future infections with the SARS-CoV-2 virus. Interpretation Result Comments:These interpretation comments are based upon all COVID-19 testing the patient has had at [facility], including molecular NAAT testing (more commonly known as PCR testing and Rapid ID Now testing) and antibody testing. It does not take into account any testing that a patient has had outside of the [facility] medical record. [facility] SERVICESCOVID NawmdxvZASO-TcX-3 NAAT (no units) ? ? Date ? Value ? 01/15/2020 ? Not Detected ? ? ? 11/16/2019 ? Not Detected ? SARS-CoV-2 Rapid ID NOW (no units) ? ? Date ? Value ? 04/02/2020 ? Not Detected ? ? ? 03/26/2020 ? Not Detected ? ? ? 01/22/2020 ? Not Detected ? [facility]2020-04-07 02:15:00 Test Item Value Reference Range Interpretation Comments POCT GLU (test code = 7361984458) 148 mg/dL 70-110 H Lab Interpretation (test code = Abnormal 35260-5) [facility] GLUCOSE (AUTOMATED)2020-04-06 21:46:00 Test Item Value Reference Range Interpretation Comments POCT GLU (test code = 5808212930) 151 mg/dL 70-110 H Lab Interpretation (test code = Abnormal 86785-5) [facility] WITHOUT [id number] 18:01:00 Test Item Value Reference Range Interpretation Comments WBC (test code = 6690-2) See_Comment H [A utomated message] The system [employer] generated this result transmit shira reference range : 4.30 - 11.10 10*3/?L. The reference range was not used to interpret this result as normal/abnormal . RBC (test code = 789-8) See_Comment L [Au tomated message] The system [employer] generated this result transmit shira reference range : 3.93 - 5.25 10* 6/?L. The reference r louise was not used to interpret this result as normal/abnormal . HGB (test code = 718-7) 8.9 g/dL 11.6-15 L HCT (test code = 4544-3) 26.1 % 35.7-45.2 L MCH (test code = 785-6) 29.5 pg 25.9-32.8 MCV (test code = 787-2) 86.4 fL 80.6-95.5 MCHC (test code = 786-4) 34.1 g/dL 31.6-35.1 PLT (test code = 777-3) See_Comment L [Au tomated message] The system [facility] generated this result transmit shira reference range : 166 - 358 10*3/?L. The reference range was not used to interpret this result as normal/abnormal . MPV (test code = 12.4 fL 9.5-12.9 67865-8) RDW-CV (test code = 17.2 % 12-15.5 H 788-0) RDW-SD (test code = 53.0 fL 39-49.9 H 90596-4) NRBC x10^3 (test code = See_Comment [Au tomated message] 4305776955) The [facility] generated this result transmit shira reference range : 10*3/?L. The reference range was not used to interpret this result as normal/abnormal . NRBC/100 WBC (test code See_Comment [Au tomated message] = 6164238204) The system [facility] generated this result transmit shira reference range : 0.0 - 10.0 /100 WBC s. The reference r louise was not used to interpret this result as normal/abnormal . IPF % (test code = 8846815939) Lab Interpretation (test Abnormal code = 41453-7) [facility]CLOSTRIDIUM DIFFICILE [id number] 16:51:00 Test Item Value Reference Range Interpretation Comments Clostridioides (Clostridium) Negative Negative difficile (test code = 27289-3) Lab Interpretation (test code = Normal 39110-0) [facility] WITHOUT [id number] 14:56:00 Test Item Value Reference Range Interpretation Comments WBC (test code = 6690-2) See_Comment H [A utomated message] The system [employer] generated this result transmit shira reference range : 4.30 - 11.10 10*3/?L. The reference range was not used to interpret this result as normal/abnormal . RBC (test code = 789-8) See_Comment L [Au tomated message] The system [employer] generated this result transmit shira reference range : 3.93 - 5.25 10* 6/?L. The reference r louise was not used to interpret this result as normal/abnormal . HGB (test code = 718-7) 8.9 g/dL 11.6-15 L HCT (test code = 4544-3) 26.1 % 35.7-45.2 L MCH (test code = 785-6) 29.5 pg 25.9-32.8 MCV (test code = 787-2) 86.4 fL 80.6-95.5 MCHC (test code = 786-4) 34.1 g/dL 31.6-35.1 PLT (test code = 777-3) See_Comment L [Au tomated message] The system [employer] generated this result transmit shira reference range : 166 - 358 10*3/?L. The reference range was not used to interpret this result as normal/abnormal . MPV (test code = 12.1 fL 9.5-12.9 09274-7) RDW-CV (test code = 17.2 % 12-15.5 H 788-0) RDW-SD (test code = 52.2 fL 39-49.9 H 25508-7) NRBC x10^3 (test code = See_Comment [Au tomated message] 2589781366) The system [employer] generated this result transmit shira reference range : 10*3/?L. The reference range was not used to interpret this result as normal/abnormal . NRBC/100 WBC (test code See_Comment [Au tomated message] = 5033530159) The system [employer] generated this result transmit shira reference range : 0.0 - 10.0 /100 WBC s. The reference r louise was not used to interpret this result as normal/abnormal . IPF % (test code = 1139028128) Lab Interpretation (test Abnormal code = 28954-9) [facility]2020-04-06 14:55:00 Test Item Value Reference Range Interpretation Comments POCT GLU (test code = 1628824517) 175 mg/dL 70-110 H Lab Interpretation (test code = Abnormal 93259-9) [facility] METABOLIC PANEL (NA, K, CL, CO2, GLUCOSE, BUN, CREATININE, CA)2020-04-06 10:28:00 Test Item Value Reference Range Interpretation Comments NA (test code = 152 mmol/L 135-145 H 2708792203) K (test code = 3.8 mmol/L 3.5-5 8076087934) CL (test code = 134 mmol/L 98-108 H 8119474929) CO2 TOTAL (test code = 13 mmol/L 23-31 L 0142825931) AGAP (test code = 2-16 2220462699) BUN (test code = 109 mg/dL 7-23 H 1876560920) GLUCOSE (test code = 173 mg/dL 70-110 H 3289716121) CREATININE (test code = 2.25 mg/dL 0.5-1.04 H 5806276601) CALCIUM (test code = 7.9 mg/dL 8.6-10.6 L 9485785060) eGFR Calculation mL/min/1.73m2 (Non-) (test code = 2775709367) eGFR Calculation mL/min/1.73m2 () (test code = 5464128657) JACI (test code = JACI) Association of Glomerular Filtration Rate (GFR) and Staging of Kidney Disease* + --+ --+ ------+| GFR (mL/min/1.73 m2) ?| With Kidney Damage ?| ?Without Kidney Damage+ --------+ --------+ +| ?>90 ?| ?Stage one ?| ? Normal ?+ ---+ ---+ -------+| ?60-89 ?| ?Stage two ?| ? Decreased GFR ? + --+ --+ ------+| ?30-59 ?| ?Stage three ?| ? Stage three ? + --+ --+ ------+| ?15-29 ?| ?Stage four ? | ? Stage four ?+ ---+ ---+ -------+| ?<15 (or dialysis) ? ?| ?Stage five ? | ? Stage five ?+ ---+ ---+ -------+ *Each stage assumes the associated GFR level has been in effect for at least three months. ?Stages 1 to 5, with or without kidney disease, indicate chronic kidney disease. Notes: Determination of stages one and two (with eGFR >59mL/min/1.73 m2) requires estimation of kidney damage for at least three months as defined by structural or functional abnormalities of the kidney, manifested by either:Pathological abnormalities or Markers of kidney damage (including abnormalities in the composition of the blood or urine or abnormalities in imaging tests). Lab Interpretation Abnormal (test code = 58770-5) [facility]2020-[facility]-26 10:03:00 Test Item Value Reference Range Interpretation Comments Fibrinogen (test code = 4899869585) 238 mg/dL 167-453 Lab Interpretation (test code = Normal 04909-4) [facility] NortheastPROTHROMBIN TIME / [id number] 09:55:00 Test Item Value Reference Range Interpretation Comments PROTIME PATIENT (test See_Comment H [Auto mated message] code = 5964-2) The system [employer] generated this result transmitted ref erence range: 10.1 - 1 2.6 Seconds. The reference range was not used to int erpret this result as normal/abnormal . INR (test code = 6301-6) Nor mal INR <1.1; Warfarin Therap eutic range 2.0 to 3. 0 or 2.5 to 3.5, dep ending upon the indica tions. Lab Interpretation (test Abnormal code = 49486-7) [facility]ACT[facility] THRMPLAS [id number] 09:55:00 Test Item Value Reference Range Interpretation Comments APTT Patient (test code See_Comment L [Au tomated message] = 3173-2) The system [employer] generated this result transmitted ref erence range: 26 - 36 Seconds. The reference range was not used to int erpret this result as normal/abnormal . Lab Interpretation (test Abnormal code = 27551-9) [facility] WITHOUT [id number] 09:39:00 Test Item Value Reference Range Interpretation Comments WBC (test code = 6690-2) See_Comment H [A utomated message] The system [employer] generated this result transmit shira reference range : 4.30 - 11.10 10*3/?L. The reference range was not used to interpret this result as normal/abnormal . RBC (test code = 789-8) See_Comment L [Au tomated message] The system [employer] generated this result transmit shira reference range : 3.93 - 5.25 10* 6/?L. The reference r louise was not used to interpret this result as normal/abnormal . HGB (test code = 718-7) 8.6 g/dL 11.6-15 L HCT (test code = 4544-3) 25.1 % 35.7-45.2 L MCH (test code = 785-6) 30.0 pg 25.9-32.8 MCV (test code = 787-2) 87.5 fL 80.6-95.5 MCHC (test code = 786-4) 34.3 g/dL 31.6-35.1 PLT (test code = 777-3) See_Comment L [Au tomated message] The system [employer] generated this result transmit shira reference range : 166 - 358 10*3/?L. The reference range was not used to interpret this result as normal/abnormal . MPV (test code = 12.0 fL 9.5-12.9 09666-4) RDW-CV (test code = 16.9 % 12-15.5 H 788-0) RDW-SD (test code = 52.3 fL 39-49.9 H 03478-8) NRBC x10^3 (test code = See_Comment [Au tomated message] 9672608213) The system [employer] generated this result transmit shira reference range : 10*3/?L. The reference range was not used to interpret this result as normal/abnormal . NRBC/100 WBC (test code See_Comment [Au tomated message] = 2675132843) The system [employer] generated this result transmit shira reference range : 0.0 - 10.0 /100 WBC s. The reference r louise was not used to interpret this result as normal/abnormal . IPF % (test code = 2289172147) Lab Interpretation (test Abnormal code = 20869-9) [facility]2020-[facility] 07:32:00 Test Item Value Reference Range Interpretation Comments GASTRIN (test code = 48 pg/mL 0-100 Perform ed By: KRISTEN 2333-3) [address] [place] [id number] Director: Elida Jansen MD [facility] NortheastPrepare Packed RBC (in units), 1 Units 2020-04-06 04:48:05 Test Item Value Reference Range Interpretation Comments Cross Match Result Compatible (test code = 4409) ISBT Blood Type Code (test code = 082152) Unit Blood Type (test A Pos code = 4410) Unit Number (test [id number] code = 4411) Blood Expiration Date & Time (test code = 110902) Status Information Issued (test code = 4412) Product Red Blood Cells Identification (test code = 4413) Product Code (test D4410X73 Performed at [facility] code = 4414) Laboratory Services - [facility] Blood [address] [place] [id number] Free: [phone] A No. [id number] [facility] (NA, K, CL, CO2, GLUCOSE, BUN, CREATININE, CA)2020-04-06 04:41:00 Test Item Value Reference Range Interpretation Comments NA (test code = 153 mmol/L 135-145 H 6558320471) K (test code = 3.6 mmol/L 3.5-5 1619670933) CL (test code = 134 mmol/L 98-108 H 9106398056) CO2 TOTAL (test code = 14 mmol/L 23-31 L 0537758389) AGAP (test code = 2-16 6784780169) BUN (test code = 115 mg/dL 7-23 H 4405258865) GLUCOSE (test code = 184 mg/dL 70-110 H 6843732317) CREATININE (test code = 2.48 mg/dL 0.5-1.04 H 0851922313) CALCIUM (test code = 7.9 mg/dL 8.6-10.6 L 5124828489) eGFR Calculation mL/min/1.73m2 (Non-) (test code = 3637248624) eGFR Calculation mL/min/1.73m2 () (test code = 4064974869) JACI (test code = JACI) Association of Glomerular Filtration Rate (GFR) and Staging of Kidney Disease* + --+ --+ ------+| GFR (mL/min/1.73 m2) ?| With Kidney Damage ?| ?Without Kidney Damage+ --------+ --------+ +| ?>90 ?| ?Stage one ?| ? Normal ?+ ---+ ---+ -------+| ?60-89 ?| ?Stage two ?| ? Decreased GFR ? + --+ --+ ------+| ?30-59 ?| ?Stage three ?| ? Stage three ? + --+ --+ ------+| ?15-29 ?| ?Stage four ? | ? Stage four ?+ ---+ ---+ -------+| ?<15 (or dialysis) ? ?| ?Stage five ? | ? Stage five ?+ ---+ ---+ -------+ *Each stage assumes the associated GFR level has been in effect for at least three months. ?Stages 1 to 5, with or without kidney disease, indicate chronic kidney disease. Notes: Determination of stages one and two (with eGFR >59mL/min/1.73 m2) requires estimation of kidney damage for at least three months as defined by structural or functional abnormalities of the kidney, manifested by either:Pathological abnormalities or Markers of kidney damage (including abnormalities in the composition of the blood or urine or abnormalities in imaging tests). Lab Interpretation Abnormal (test code = 39743-6) [facility] WITHOUT [id number] 04:15:00 Test Item Value Reference Range Interpretation Comments WBC (test code = 6690-2) See_Comment H [A utomated message] The system [employer] generated this result transmit shira reference range : 4.30 - 11.10 10*3/?L. The reference range was not used to interpret this result as normal/abnormal . RBC (test code = 789-8) See_Comment L [Au tomated message] The system [employer] generated this result transmit shira reference range : 3.93 - 5.25 10* 6/?L. The reference r louise was not used to interpret this result as normal/abnormal . HGB (test code = 718-7) 7.6 g/dL 11.6-15 L HCT (test code = 4544-3) 22.3 % 35.7-45.2 L MCH (test code = 785-6) 29.7 pg 25.9-32.8 MCV (test code = 787-2) 87.1 fL 80.6-95.5 MCHC (test code = 786-4) 34.1 g/dL 31.6-35.1 PLT (test code = 777-3) See_Comment L [Au tomated message] The system [employer] generated this result transmit shira reference range : 166 - 358 10*3/?L. The reference range was not used to interpret this result as normal/abnormal . MPV (test code = 12.0 fL 9.5-12.9 18647-4) RDW-CV (test code = 16.9 % 12-15.5 H 788-0) RDW-SD (test code = 51.8 fL 39-49.9 H 25931-7) NRBC x10^3 (test code = See_Comment [Au tomated message] 3453059605) The system [employer] generated this result transmit shira reference range : 10*3/?L. The reference range was not used to interpret this result as normal/abnormal . NRBC/100 WBC (test code See_Comment [Au tomated message] = 1050187902) The system [facility] generated this result transmit shira reference range : 0.0 - 10.0 /100 WBC s. The reference r louise was not used to interpret this result as normal/abnormal . IPF % (test code = 2712616937) Lab Interpretation (test Abnormal code = 80909-0) [facility]2020-[facility]-06 02:43:00 Test Item Value Reference Range Interpretation Comments POCT GLU (test code = 0537488103) 232 mg/dL 70-110 H Lab Interpretation (test code = Abnormal 93431-6) [facility] RETROPERITONE[facility] [id number] 02:26:45 Limited evaluation due to large body habitus. No hydronephrosis or focal lesion of the right kidney. The left kidneys notvisualized. Preliminary Report Dictated by Resident: Zach Stewart MD., have reviewed this study and agree with the abovereport.EXAM: US RETROPERITONEAL LIMITED HISTORY: 80 years- old Female with KARTIK US both kidneys. TECHNIQUE: Ultrasound of kidneys was performed with grayscale and selectedcolor Doppler imaging. Supervisor Edging images were obtained for the record. COMPARISON: None FINDINGS: The examination is severely limited due to large body habitus. KIDNEYS:RIGHT:Size: 9.6 x 4.6 x 5.2 cm.Parenchyma: Normal renal cortical thickness. No focal solid or cystic renallesions are detected.Collecting System: No hydronephrosis. LEFT:Not visualized. [facility], Radiant Results Inft User - 04/05/2020 8:27 PM CSTEXAM: US RETROPERITONEAL LIMITEDHISTORY: 80 years-old Female with KARTIK US both kidneys.TECHNIQUE: Ultrasound of kidneys was performed with grayscale and selectedcolor Doppler imaging. Supervisor Edging images were obtained for the record.COMPARISON: NoneFINDINGS:The examination is severely limited due to large body habitus.KIDNEYS:RIGHT:Size: 9.6 x 4.6 x 5.2 cm.Parenchyma: Normal renal cortical thickness. No focal solid or cystic renallesions are detected.Collecti ng System: No hydronephrosis.LEFT:Not visualized.IMPRESSIONLimited evaluation due to large body habitus.No hydronephrosis or focal lesion of the right kidney. The left kidneys notvisualized.PreliminaryReport Dictated by Resident: Paul Owen MD., have reviewed this study and agree with the abovereport.[facility] [id number] 02:01:00 Test Item Value Reference Range Interpretation Comments PTH-INTACT (test code = 197.7 pg/mL 12-88 H 5024809809) PTH-CA Interpretation Furthe r clinical (test code = 2128283268) kalpana a needed for interpretation. CALCIUM (test code = 7.9 mg/dL 8.6-10.6 L 2382409003) Lab Interpretation (test Abnormal code = 21184-6) [facility] (NA, K, CL, CO2, GLUCOSE, BUN, CREATININE, CA)2020-04-06 00:44:00 Test Item Value Reference Range Interpretation Comments NA (test code = 155 mmol/L 135-145 H 9385144855) K (test code = 3.8 mmol/L 3.5-5 1897459478) CL (test code = 134 mmol/L 98-108 H 3452078904) CO2 TOTAL (test code = 14 mmol/L 23-31 L 3635778760) AGAP (test code = 2-16 3253879943) BUN (test code = 117 mg/dL 7-23 H 4215398402) GLUCOSE (test code = 213 mg/dL 70-110 H 1005994638) CREATININE (test code = 2.47 mg/dL 0.5-1.04 H 0548944633) CALCIUM (test code = 7.9 mg/dL 8.6-10.6 L 0303926324) eGFR Calculation mL/min/1.73m2 (Non-) (test code = 4845343775) eGFR Calculation mL/min/1.73m2 () (test code = 3991783531) JACI (test code = JACI) Association of Glomerular Filtration Rate (GFR) and Staging of Kidney Disease* + --+ --+ ------+| GFR (mL/min/1.73 m2) ?| With Kidney Damage ?| ?Without Kidney Damage+ --------+ --------+ +| ?>90 ?| ?Stage one ?| ? Normal ?+ ---+ ---+ -------+| ?60-89 ?| ?Stage two ?| ? Decreased GFR ? + --+ --+ ------+| ?30-59 ?| ?Stage three ?| ? Stage three ? + --+ --+ ------+| ?15-29 ?| ?Stage four ? | ? Stage four ?+ ---+ ---+ -------+| ?<15 (or dialysis) ? ?| ?Stage five ? | ? Stage five ?+ ---+ ---+ -------+ *Each stage assumes the associated GFR level has been in effect for at least three months. ?Stages 1 to 5, with or without kidney disease, indicate chronic kidney disease. Notes: Determination of stages one and two (with eGFR >59mL/min/1.73 m2) requires estimation of kidney damage for at least three months as defined by structural or functional abnormalities of the kidney, manifested by either:Pathological abnormalities or Markers of kidney damage (including abnormalities in the composition of the blood or urine or abnormalities in imaging tests). Lab Interpretation Abnormal (test code = 04133-4) [facility] NortheastPhosphorus [id number] 00:44:00 Test Item Value Reference Range Interpretation Comments PHOSPHORUS (test code = 5888491964) 3.6 mg/dL 2.5-5 Lab Interpretation (test code = Normal 80841-8) [facility] NortheastCBC WITHOUT [id number] 00:22:00 Test Item Value Reference Range Interpretation Comments WBC (test code = 6690-2) See_Comment H [A utomated message] The system [employer] generated this result transmit shira reference range : 4.30 - 11.10 10*3/?L. The reference range was not used to interpret this result as normal/abnormal . RBC (test code = 789-8) See_Comment L [Au tomated message] The system [employer] generated this result transmit shira reference range : 3.93 - 5.25 10* 6/?L. The reference r louise was not used to interpret this result as normal/abnormal . HGB (test code = 718-7) 8.5 g/dL 11.6-15 L HCT (test code = 4544-3) 25.0 % 35.7-45.2 L MCH (test code = 785-6) 29.7 pg 25.9-32.8 MCV (test code = 787-2) 87.4 fL 80.6-95.5 MCHC (test code = 786-4) 34.0 g/dL 31.6-35.1 PLT (test code = 777-3) See_Comment L [Au tomated message] The system [employer] generated this result transmit shira reference range : 166 - 358 10*3/?L. The reference range was not used to interpret this result as normal/abnormal . MPV (test code = 12.0 fL 9.5-12.9 52528-9) RDW-CV (test code = 16.6 % 12-15.5 H 788-0) RDW-SD (test code = 51.1 fL 39-49.9 H 96034-3) NRBC x10^3 (test code = See_Comment [Au tomated message] 3573207722) The system [employer] generated this result transmit shira reference range : 10*3/?L. The reference range was not used to interpret this result as normal/abnormal . NRBC/100 WBC (test code See_Comment [Au tomated message] = 9433579922) The system [facility] generated this result transmit shira reference range : 0.0 - 10.0 /100 WBC s. The reference r louise was not used to interpret this result as normal/abnormal . IPF % (test code = 8914972956) Lab Interpretation (test Abnormal code = 24395-6) [facility] NortheastPROTEIN CREAT RATIO URINE [id number] 21:51:00 Test Item Value Reference Range Interpretation Comments T. PROT U (test code = 2888-6) 16 mg/dL CREAT U (test code = 0153655905) 31.6 mg/dL Protein/Creatinine Ratio Urine 0.0-2.0 (test code = 8941382189) [facility] NortheastUREA NITROGEN, URINE [id number] 21:51:00 Test Item Value Reference Range Interpretation Comments UREA N UR (test code = 1286266162) 796 mg/dL [facility] NortheastSODIUM, URINE [id number] 21:19:00 Test Item Value Reference Range Interpretation Comments NA URINE (test code = 3854592612) 78 mmol/L [facility] NortheastCBC WITHOUT [id number] 20:39:00 Test Item Value Reference Range Interpretation Comments WBC (test code = 6690-2) See_Comment H [A utomated message] The system [employer] generated this result transmit shira reference range : 4.30 - 11.10 10*3/?L. The reference range was not used to interpret this result as normal/abnormal . RBC (test code = 789-8) See_Comment L [Au tomated message] The system [employer] generated this result transmit shira reference range : 3.93 - 5.25 10* 6/?L. The reference r louise was not used to interpret this result as normal/abnormal . HGB (test code = 718-7) 8.5 g/dL 11.6-15 L HCT (test code = 4544-3) 25.5 % 35.7-45.2 L MCH (test code = 785-6) 29.4 pg 25.9-32.8 MCV (test code = 787-2) 88.2 fL 80.6-95.5 MCHC (test code = 786-4) 33.3 g/dL 31.6-35.1 PLT (test code = 777-3) See_Comment L [Au tomated message] The system [facility] generated this result transmit shira reference range : 166 - 358 10*3/?L. The reference range was not used to interpret this result as normal/abnormal . MPV (test code = 11.8 fL 9.5-12.9 84633-5) RDW-CV (test code = 16.2 % 12-15.5 H 788-0) RDW-SD (test code = 50.9 fL 39-49.9 H 82315-1) NRBC x10^3 (test code = See_Comment [Au tomated message] 4327471768) The system [facility] generated this result transmit shira reference range : 10*3/?L. The reference range was not used to interpret this result as normal/abnormal . NRBC/100 WBC (test code See_Comment [Au tomated message] = 9225090923) The system [facility] generated this result transmit shira reference range : 0.0 - 10.0 /100 WBC s. The reference r louise was not used to interpret this result as normal/abnormal . IPF % (test code = 1959050399) Lab Interpretation (test Abnormal code = 96153-0) [facility] METABOLIC PANEL (NA, K, CL, CO2, GLUCOSE, BUN, CREATININE, CA)2020-04-05 18:56:00 Test Item Value Reference Range Interpretation Comments NA (test code = 155 mmol/L 135-145 H 8555311283) K (test code = 3.9 mmol/L 3.5-5 6926334975) CL (test code = 136 mmol/L 98-108 H 9226669177) CO2 TOTAL (test code = 14 mmol/L 23-31 L 8679422802) AGAP (test code = 2-16 5691136350) BUN (test code = 122 mg/dL 7-23 H 4309073138) GLUCOSE (test code = 147 mg/dL 70-110 H 4975099911) CREATININE (test code = 2.60 mg/dL 0.5-1.04 H 1648566570) CALCIUM (test code = 7.9 mg/dL 8.6-10.6 L 2295514418) eGFR Calculation mL/min/1.73m2 (Non-) (test code = 9902043960) eGFR Calculation mL/min/1.73m2 () (test code = 8985471871) JACI (test code = JACI) Association of Glomerular Filtration Rate (GFR) and Staging of Kidney Disease* + --+ --+ ------+| GFR (mL/min/1.73 m2) ?| With Kidney Damage ?| ?Without Kidney Damage+ --------+ --------+ +| ?>90 ?| ?Stage one ?| ? Normal ?+ ---+ ---+ -------+| ?60-89 ?| ?Stage two ?| ? Decreased GFR ? + --+ --+ ------+| ?30-59 ?| ?Stage three ?| ? Stage three ? + --+ --+ ------+| ?15-29 ?| ?Stage four ? | ? Stage four ?+ ---+ ---+ -------+| ?<15 (or dialysis) ? ?| ?Stage five ? | ? Stage five ?+ ---+ ---+ -------+ *Each stage assumes the associated GFR level has been in effect for at least three months. ?Stages 1 to 5, with or without kidney disease, indicate chronic kidney disease. Notes: Determination of stages one and two (with eGFR >59mL/min/1.73 m2) requires estimation of kidney damage for at least three months as defined by structural or functional abnormalities of the kidney, manifested by either:Pathological abnormalities or Markers of kidney damage (including abnormalities in the composition of the blood or urine or abnormalities in imaging tests). Lab Interpretation Abnormal (test code = 96454-0) [facility]2020-04-05 18:20:00 Test Item Value Reference Range Interpretation Comments POCT GLU (test code = 2107726822) 157 mg/dL 70-110 H Lab Interpretation (test code = Abnormal 92959-1) [facility] NortheastHAPTOGLOBIN, [id number] 17:27:00 Test Item Value Reference Range Interpretation Comments HAPTOGLOB (test code = 9603958835) 37 mg/dL 16-200 Lab Interpretation (test code = Normal 19558-2) [facility] NortheastPrepare Packed RBC (in units)2020-04-05 16:58:07 Test Item Value Reference Range Interpretation Comments Cross Match Result Compatible (test code = 4409) ISBT Blood Type Code (test code = 807079) Unit Blood Type (test A Pos code = 4410) Unit Number (test [id number] code = 4411) Blood Expiration Date & Time (test code = 531102) Status Information Issued (test code = 4412) Product Red Blood Cells Identification (test code = 4413) Product Code (test I9720S87 Performed at [facility] code = 4414) Laboratory Services - [facility] Blood [address] [place] [id number] Free: [phone] A No. [id number] [facility] NortheastRETICULOCYTES [id number] 16:18:00 Test Item Value Reference Range Interpretation Comments RETIC Count Automated 2.08 % 0.51-1.9 H (test code = 2649979562) RETIC Absolute Count See_Comment Reticul ocyte count (test code = 9975688601) may be affected by the presence of an interfering sub stance or condition. [Automated mess age] The system whic h generated this result transmitted ref erence range: 0.0230 - 0.0950 10*6/?L. The reference range was not used to int erpret this result as normal/abnormal . IRF % (test code = 43.10 % 2.1-12.6 H 4375030714) RETIC-HE (test code = 35.8 pg 28.1-35.8 5433733537) Lab Interpretation (test Abnormal code = 53725-6) [facility] NortheastLAMIATE [id number] 15:06:00 Test Item Value Reference Range Interpretation Comments LDH (test code = 9559883132) 681 U/L 300-600 H Lab Interpretation (test code = Abnormal 48078-9) [facility] NortheastFIBRINOGEN2020-12-25 14:54:00 Test Item Value Reference Range Interpretation Comments Fibrinogen (test code = 1227413998) 160 mg/dL 167-453 L Lab Interpretation (test code = Abnormal 66489-0) [facility] METABOLIC PANEL (NA, K, CL, CO2, GLUCOSE, BUN, CREATININE, CA)2020-04-05 13:30:00 Test Item Value Reference Range Interpretation Comments NA (test code = 155 mmol/L 135-145 H 8050522874) K (test code = 4.1 mmol/L 3.5-5 4313573662) CL (test code = 135 mmol/L 98-108 H 8177485018) CO2 TOTAL (test code = 14 mmol/L 23-31 L 7571788272) AGAP (test code = 2-16 6806375164) BUN (test code = 125 mg/dL 7-23 H 3305925670) GLUCOSE (test code = 162 mg/dL 70-110 H 5384815084) CREATININE (test code = 2.74 mg/dL 0.5-1.04 H 1709921667) CALCIUM (test code = 8.1 mg/dL 8.6-10.6 L 3870932646) eGFR Calculation mL/min/1.73m2 (Non-) (test code = 2918544121) eGFR Calculation mL/min/1.73m2 () (test code = 0618623651) JACI (test code = JACI) Association of Glomerular Filtration Rate (GFR) and Staging of Kidney Disease* + --+ --+ ------+| GFR (mL/min/1.73 m2) ?| With Kidney Damage ?| ?Without Kidney Damage+ --------+ --------+ +| ?>90 ?| ?Stage one ?| ? Normal ?+ ---+ ---+ -------+| ?60-89 ?| ?Stage two ?| ? Decreased GFR ? + --+ --+ ------+| ?30-59 ?| ?Stage three ?| ? Stage three ? + --+ --+ ------+| ?15-29 ?| ?Stage four ? | ? Stage four ?+ ---+ ---+ -------+| ?<15 (or dialysis) ? ?| ?Stage five ? | ? Stage five ?+ ---+ ---+ -------+ *Each stage assumes the associated GFR level has been in effect for at least three months. ?Stages 1 to 5, with or without kidney disease, indicate chronic kidney disease. Notes: Determination of stages one and two (with eGFR >59mL/min/1.73 m2) requires estimation of kidney damage for at least three months as defined by structural or functional abnormalities of the kidney, manifested by either:Pathological abnormalities or Markers of kidney damage (including abnormalities in the composition of the blood or urine or abnormalities in imaging tests). Lab Interpretation Abnormal (test code = 87661-7) [facility]PO[facility]2020-04-05 13:25:00 Test Item Value Reference Range Interpretation Comments POCT GLU (test code = 1997864914) 172 mg/dL 70-110 H Lab Interpretation (test code = Abnormal 07378-6) [facility] WITHOUT [id number] 12:46:00 Test Item Value Reference Range Interpretation Comments WBC (test code = 6690-2) See_Comment H [A utomated message] The system [employer] generated this result transmit shira reference range : 4.30 - 11.10 10*3/?L. The reference range was not used to interpret this result as normal/abnormal . RBC (test code = 789-8) See_Comment L [Au tomated message] The system [employer] generated this result transmit shira reference range : 3.93 - 5.25 10* 6/?L. The reference r louise was not used to interpret this result as normal/abnormal . HGB (test code = 718-7) 6.2 g/dL 11.6-15 L HCT (test code = 4544-3) 17.9 % 35.7-45.2 L MCH (test code = 785-6) 31.2 pg 25.9-32.8 MCV (test code = 787-2) 89.9 fL 80.6-95.5 MCHC (test code = 786-4) 34.6 g/dL 31.6-35.1 PLT (test code = 777-3) See_Comment [Au tomated message] The system [employer] generated this result transmit shira reference range : 166 - 358 10*3/?L. The reference range was not used to interpret this result as normal/abnormal . MPV (test code = 12.1 fL 9.5-12.9 35615-4) RDW-CV (test code = 16.6 % 12-15.5 H 788-0) RDW-SD (test code = 51.9 fL 39-49.9 H 50860-0) NRBC x10^3 (test code = See_Comment [Au tomated message] 5876557477) The system [employer] generated this result transmit shira reference range : 10*3/?L. The reference range was not used to interpret this result as normal/abnormal . NRBC/100 WBC (test code See_Comment [Au tomated message] = 1873861539) The system [employer] generated this result transmit shira reference range : 0.0 - 10.0 /100 WBC s. The reference r louise was not used to interpret this result as normal/abnormal . IPF % (test code = 8385007211) Lab Interpretation (test Abnormal code = 21799-1) [facility] NortheastHEPATIC FUNCTION PANEL (77331) (ALB,T.PRO,BILI T,BU/BC,ALT,AST,ALK PHOS)2020-04-05 07:49:00 Test Item Value Reference Range Interpretation Comments TOTAL BILI (test code = 4953738905) 0.7 mg/dL 0.1-1.1 BILI UNCON (test code = 3536758230) 0.5 mg/dL 0.1-1.1 BILI CONJ (test code = 3647734614) 0.0 mg/dL 0-0.3 T PROTEIN (test code = 8648126337) 3.6 g/dL 6.3-8.2 L ALBUMIN (test code = 7319709370) 1.6 g/dL 3.5-5 L ALK PHOS (test code = 0980085752) 67 U/L 34-122 ALTv (test code = 1742-6) 46 U/L 5-35 H AST(SGOT) (test code = 9646795635) 44 U/L 13-40 H Lab Interpretation (test code = Abnormal 69061-2) [facility] METABOLIC PANEL (NA, K, CL, CO2, GLUCOSE, BUN, CREATININE, CA)2020-04-05 07:31:00 Test Item Value Reference Range Interpretation Comments NA (test code = 152 mmol/L 135-145 H 8358511004) K (test code = 4.0 mmol/L 3.5-5 5468080116) CL (test code = 134 mmol/L 98-108 H 7668746416) CO2 TOTAL (test code = 14 mmol/L 23-31 L 6057027832) AGAP (test code = 2-16 8138570589) BUN (test code = 126 mg/dL 7-23 H 8438981094) GLUCOSE (test code = 156 mg/dL 70-110 H 7609197177) CREATININE (test code = 2.74 mg/dL 0.5-1.04 H 7597549585) CALCIUM (test code = 8.2 mg/dL 8.6-10.6 L 9463605154) eGFR Calculation mL/min/1.73m2 (Non-) (test code = 7462016765) eGFR Calculation mL/min/1.73m2 () (test code = 7460169639) JACI (test code = JACI) Association of Glomerular Filtration Rate (GFR) and Staging of Kidney Disease* + --+ --+ ------+| GFR (mL/min/1.73 m2) ?| With Kidney Damage ?| ?Without Kidney Damage+ --------+ --------+ +| ?>90 ?| ?Stage one ?| ? Normal ?+ ---+ ---+ -------+| ?60-89 ?| ?Stage two ?| ? Decreased GFR ? + --+ --+ ------+| ?30-59 ?| ?Stage three ?| ? Stage three ? + --+ --+ ------+| ?15-29 ?| ?Stage four ? | ? Stage four ?+ ---+ ---+ -------+| ?<15 (or dialysis) ? ?| ?Stage five ? | ? Stage five ?+ ---+ ---+ -------+ *Each stage assumes the associated GFR level has been in effect for at least three months. ?Stages 1 to 5, with or without kidney disease, indicate chronic kidney disease. Notes: Determination of stages one and two (with eGFR >59mL/min/1.73 m2) requires estimation of kidney damage for at least three months as defined by structural or functional abnormalities of the kidney, manifested by either:Pathological abnormalities or Markers of kidney damage (including abnormalities in the composition of the blood or urine or abnormalities in imaging tests). Lab Interpretation Abnormal (test code = 20708-8) [facility] NortheastPROTHROMBIN TIME / [id number] 06:55:00 Test Item Value Reference Range Interpretation Comments PROTIME PATIENT (test See_Comment H [Auto mated message] code = 5964-2) The system [employer] generated this result transmitted ref erence range: 10.1 - 1 2.6 Seconds. The reference range was not used to int erpret this result as normal/abnormal . INR (test code = 6301-6) Nor mal INR <1.1; Warfarin Therap eutic range 2.0 to 3. 0 or 2.5 to 3.5, dep ending upon the indica tions. Lab Interpretation (test Abnormal code = 36078-9) [facility] NortheastFIBRINOGEN2020-12-25 06:55:00 Test Item Value Reference Range Interpretation Comments Fibrinogen (test code = 8834485645) 178 mg/dL 167-453 Lab Interpretation (test code = Normal 98289-2) [facility] NortheastCBC WITHOUT [id number] 06:52:00 Test Item Value Reference Range Interpretation Comments WBC (test code = 6690-2) See_Comment H [A utomated message] The system [employer] generated this result transmit shira reference range : 4.30 - 11.10 10*3/?L. The reference range was not used to interpret this result as normal/abnormal . RBC (test code = 789-8) See_Comment L [Au tomated message] The system [employer] generated this result transmit shira reference range : 3.93 - 5.25 10* 6/?L. The reference r louise was not used to interpret this result as normal/abnormal . HGB (test code = 718-7) 8.1 g/dL 11.6-15 L HCT (test code = 4544-3) 23.2 % 35.7-45.2 L MCH (test code = 785-6) 31.2 pg 25.9-32.8 MCV (test code = 787-2) 89.2 fL 80.6-95.5 MCHC (test code = 786-4) 34.9 g/dL 31.6-35.1 PLT (test code = 777-3) See_Comment [Au tomated message] The system [employer] generated this result transmit shira reference range : 166 - 358 10*3/?L. The reference range was not used to interpret this result as normal/abnormal . MPV (test code = 12.4 fL 9.5-12.9 31756-9) RDW-CV (test code = 16.2 % 12-15.5 H 788-0) RDW-SD (test code = 51.6 fL 39-49.9 H 66479-8) NRBC x10^3 (test code = See_Comment [Au tomated message] 5108736877) The system [employer] generated this result transmit shira reference range : 10*3/?L. The reference range was not used to interpret this result as normal/abnormal . NRBC/100 WBC (test code See_Comment [Au tomated message] = 5890389141) The system [facility] generated this result transmit shira reference range : 0.0 - 10.0 /100 WBC s. The reference r louise was not used to interpret this result as normal/abnormal . IPF % (test code = 9448332638) Lab Interpretation (test Abnormal code = 72400-3) [facility]PO[facility]ATED[facility]2020-04-05 02:24:00 Test Item Value Reference Range Interpretation Comments POCT GLU (test code = 2629949001) 202 mg/dL 70-110 H Lab Interpretation (test code = Abnormal 70296-8) [facility] NortheastPrepare Packed RBC (in units), 1 Units 2020-04-05 01:41:43 Test Item Value Reference Range Interpretation Comments Cross Match Result Compatible (test code = 4409) ISBT Blood Type Code (test code = 094199) Unit Blood Type (test A Pos code = 4410) Unit Number (test [id number] code = 4411) Blood Expiration Date & Time (test code = 813781) Status Information Issued (test code = 4412) Product Red Blood Cells Identification (test code = 4413) Product Code (test Y6620Z16 Performed at [facility] code = 4414) Laboratory Services - [facility] [address] [place], [place] [address]vesWest [facility] Hospitalbautista [address]Pfpj Free: [phone] A No. [id number] [facility] NortheastHELICOBACTER PYLORI ANTIGEN, FECAL BY EIA 2020-04-05 01:22:00 Test Item Value Reference Range Interpretation Comments H. PYLO Ag (test Negative Negative Performed B y: ARUP code = 33987-1) Laboratories [address] [place] [id number] Director: Elida Jansen MD [facility] NortheastPOMI GLUCOSE (AUTOMATED)2020-04-04 23:57:00 Test Item Value Reference Range Interpretation Comments POCT GLU (test code = 1918672337) 189 mg/dL 70-110 H Lab Interpretation (test code = Abnormal 91101-4) [facility] WITHOUT [id number] 21:52:00 Test Item Value Reference Range Interpretation Comments WBC (test code = 6690-2) See_Comment H [A utomated message] The system [employer] generated this result transmit shiar reference range : 4.30 - 11.10 10*3/?L. The reference range was not used to interpret this result as normal/abnormal . RBC (test code = 789-8) See_Comment L [Au tomated message] The system [employer] generated this result transmit shira reference range : 3.93 - 5.25 10* 6/?L. The reference r louise was not used to interpret this result as normal/abnormal . HGB (test code = 718-7) 7.7 g/dL 11.6-15 L HCT (test code = 4544-3) 22.8 % 35.7-45.2 L MCH (test code = 785-6) 30.1 pg 25.9-32.8 MCV (test code = 787-2) 89.1 fL 80.6-95.5 MCHC (test code = 786-4) 33.8 g/dL 31.6-35.1 PLT (test code = 777-3) See_Comment [Au tomated message] The system [employer] generated this result transmit shira reference range : 166 - 358 10*3/?L. The reference range was not used to interpret this result as normal/abnormal . MPV (test code = 12.2 fL 9.5-12.9 71043-8) RDW-CV (test code = 17.6 % 12-15.5 H 788-0) RDW-SD (test code = 56.1 fL 39-49.9 H 27646-3) NRBC x10^3 (test code = See_Comment [Au tomated message] [id number]) The system [employer] generated this result transmit shira reference range : 10*3/?L. The reference range was not used to interpret this result as normal/abnormal . NRBC/100 WBC (test code See_Comment [Au tomated message] = 9572821340) The system [employer] generated this result transmit shira reference range : 0.0 - 10.0 /100 WBC s. The reference r louise was not used to interpret this result as normal/abnormal . IPF % (test code = 3387542071) Lab Interpretation (test Abnormal code = 33132-4) [facility] 17:55:00 Test Item Value Reference Range Interpretation Comments POCT GLU (test code = 8663659802) 201 mg/dL 70-110 H Lab Interpretation (test code = Abnormal 60672-4) [facility] RBC (in units), 1 Units 2020-04-04 15:57:52 Test Item Value Reference Range Interpretation Comments Cross Match Result Compatible (test code = 4409) ISBT Blood Type Code (test code = 048270) Unit Blood Type (test A Pos code = 4410) Unit Number (test [id number] code = 4411) Blood Expiration Date & Time (test code = 146123) Status Information Issued (test code = 4412) Product Red Blood Cells Identification (test code = 4413) Product Code (test [id number] Performed at [facility] code = 4414) Laboratory Services - [facility] Blood [address] [place] [address]Zkzi Free: [phone] A No. [id number] [facility] WITHOUT [id number] 15:25:00 Test Item Value Reference Range Interpretation Comments WBC (test code = 6690-2) See_Comment H [A utomated message] The system [employer] generated this result transmit shira reference range : 4.30 - 11.10 10*3/?L. The reference range was not used to interpret this result as normal/abnormal . RBC (test code = 789-8) See_Comment L [Au tomated message] The system [facility] generated this result transmit shira reference range : 3.93 - 5.25 10* 6/?L. The reference r louise was not used to interpret this result as normal/abnormal . HGB (test code = 718-7) 6.3 g/dL 11.6-15 L HCT (test code = 4544-3) 18.5 % 35.7-45.2 L MCH (test code = 785-6) 29.3 pg 25.9-32.8 MCV (test code = 787-2) 86.0 fL 80.6-95.5 MCHC (test code = 786-4) 34.1 g/dL 31.6-35.1 PLT (test code = 777-3) See_Comment [Au tomated message] The system [facility] generated this result transmit shira reference range : 166 - 358 10*3/?L. The reference range was not used to interpret this result as normal/abnormal . MPV (test code = 12.0 fL 9.5-12.9 12880-7) RDW-CV (test code = 17.9 % 12-15.5 H 788-0) RDW-SD (test code = 53.8 fL 39-49.9 H 67707-1) NRBC x10^3 (test code = See_Comment [Au tomated message] 5031453375) The system [facility] generated this result transmit shira reference range : 10*3/?L. The reference range was not used to interpret this result as normal/abnormal . NRBC/100 WBC (test code See_Comment [Au tomated message] = 5394158863) The system [facility] generated this result transmit shira reference range : 0.0 - 10.0 /100 WBC s. The reference r louise was not used to interpret this result as normal/abnormal . IPF % (test code = 7842442067) Lab Interpretation (test Abnormal code = 38921-2) [facility] 15:02:00 Test Item Value Reference Range Interpretation Comments POCT GLU (test code = 8109352708) 220 mg/dL 70-110 H Lab Interpretation (test code = Abnormal 25026-2) [facility] [id number] 14:27:00 Test Item Value Reference Range Interpretation Comments URINE CULTURE (test < 10,000 CFU/mL mixed code = 630-4) aerobic organisms - suggests endogenous microbial contamination [facility] WITHOUT [id number] 08:33:00 Test Item Value Reference Range Interpretation Comments WBC (test code = 6690-2) See_Comment H [A utomated message] The system [employer] generated this result transmit shira reference range : 4.30 - 11.10 10*3/?L. The reference range was not used to interpret this result as normal/abnormal . RBC (test code = 789-8) See_Comment L [Au tomated message] The system [employer] generated this result transmit shira reference range : 3.93 - 5.25 10* 6/?L. The reference r louise was not used to interpret this result as normal/abnormal . HGB (test code = 718-7) 7.1 g/dL 11.6-15 L HCT (test code = 4544-3) 21.2 % 35.7-45.2 L MCH (test code = 785-6) 28.6 pg 25.9-32.8 MCV (test code = 787-2) 85.5 fL 80.6-95.5 MCHC (test code = 786-4) 33.5 g/dL 31.6-35.1 PLT (test code = 777-3) See_Comment [Au tomated message] The system [employer] generated this result transmit shira reference range : 166 - 358 10*3/?L. The reference range was not used to interpret this result as normal/abnormal . MPV (test code = 12.1 fL 9.5-12.9 11394-7) RDW-CV (test code = 17.2 % 12-15.5 H 788-0) RDW-SD (test code = 52.4 fL 39-49.9 H 02347-7) NRBC x10^3 (test code = See_Comment [Au tomated message] 2658865720) The system [employer] generated this result transmit shira reference range : 10*3/?L. The reference range was not used to interpret this result as normal/abnormal . NRBC/100 WBC (test code See_Comment [Au tomated message] = 7534450324) The system [employer] generated this result transmit shira reference range : 0.0 - 10.0 /100 WBC s. The reference r louise was not used to interpret this result as normal/abnormal . IPF % (test code = 4818112456) Lab Interpretation (test Abnormal code = 48552-9) [facility] METABOLIC PANEL (NA, K, CL, CO2, GLUCOSE, BUN, CREATININE, CA)2020-04-04 07:59:00 Test Item Value Reference Range Interpretation Comments NA (test code = 146 mmol/L 135-145 H 5112549273) K (test code = 3.5 mmol/L 3.5-5 3637013100) CL (test code = 125 mmol/L 98-108 H 2597900394) CO2 TOTAL (test code = 14 mmol/L 23-31 L 8324506038) AGAP (test code = 2-16 8346199889) BUN (test code = 117 mg/dL 7-23 H 0522650651) GLUCOSE (test code = 164 mg/dL 70-110 H 5520769737) CREATININE (test code = 2.45 mg/dL 0.5-1.04 H 5464212116) CALCIUM (test code = 8.0 mg/dL 8.6-10.6 L 5063711454) eGFR Calculation mL/min/1.73m2 (Non-) (test code = 0123622595) eGFR Calculation mL/min/1.73m2 () (test code = 1595810964) JACI (test code = JACI) Association of Glomerular Filtration Rate (GFR) and Staging of Kidney Disease* + --+ --+ ------+| GFR (mL/min/1.73 m2) ?| With Kidney Damage ?| ?Without Kidney Damage+ --------+ --------+ +| ?>90 ?| ?Stage one ?| ? Normal ?+ ---+ ---+ -------+| ?60-89 ?| ?Stage two ?| ? Decreased GFR ? + --+ --+ ------+| ?30-59 ?| ?Stage three ?| ? Stage three ? + --+ --+ ------+| ?15-29 ?| ?Stage four ? | ? Stage four ?+ ---+ ---+ -------+| ?<15 (or dialysis) ? ?| ?Stage five ? | ? Stage five ?+ ---+ ---+ -------+ *Each stage assumes the associated GFR level has been in effect for at least three months. ?Stages 1 to 5, with or without kidney disease, indicate chronic kidney disease. Notes: Determination of stages one and two (with eGFR >59mL/min/1.73 m2) requires estimation of kidney damage for at least three months as defined by structural or functional abnormalities of the kidney, manifested by either:Pathological abnormalities or Markers of kidney damage (including abnormalities in the composition of the blood or urine or abnormalities in imaging tests). Lab Interpretation Abnormal (test code = 82132-3) [facility] / [id number] 07:15:00 Test Item Value Reference Range Interpretation Comments PROTIME PATIENT (test See_Comment H [Auto mated message] code = 5964-2) The system [employer] generated this result transmitted ref erence range: 10.1 - 1 2.6 Seconds. The reference range was not used to int erpret this result as normal/abnormal . INR (test code = 6301-6) Nor mal INR <1.1; Warfarin Therap eutic range 2.0 to 3. 0 or 2.5 to 3.5, dep ending upon the indica tions. Lab Interpretation (test Abnormal code = 57792-2) [facility]2020-[facility]-24 07:15:00 Test Item Value Reference Range Interpretation Comments Fibrinogen (test code = 2390412987) 160 mg/dL 167-453 L Lab Interpretation (test code = Abnormal 13962-3) [facility]2020-04-04 02:20:00 Test Item Value Reference Range Interpretation Comments POCT GLU (test code = 3971638156) 215 mg/dL 70-110 H Lab Interpretation (test code = Abnormal 24351-7) [facility] WITHOUT [id number] 23:13:00 Test Item Value Reference Range Interpretation Comments WBC (test code = 6690-2) See_Comment H [A utomated message] The system [employer] generated this result transmit shira reference range : 4.30 - 11.10 10*3/?L. The reference range was not used to interpret this result as normal/abnormal . RBC (test code = 789-8) See_Comment L [Au tomated message] The system [employer] generated this result transmit shira reference range : 3.93 - 5.25 10* 6/?L. The reference r louise was not used to interpret this result as normal/abnormal . HGB (test code = 718-7) 8.4 g/dL 11.6-15 L HCT (test code = 4544-3) 24.9 % 35.7-45.2 L MCH (test code = 785-6) 29.1 pg 25.9-32.8 MCV (test code = 787-2) 86.2 fL 80.6-95.5 MCHC (test code = 786-4) 33.7 g/dL 31.6-35.1 PLT (test code = 777-3) See_Comment [Au tomated message] The system [employer] generated this result transmit shira reference range : 166 - 358 10*3/?L. The reference range was not used to interpret this result as normal/abnormal . MPV (test code = 11.7 fL 9.5-12.9 23728-0) RDW-CV (test code = 16.0 % 12-15.5 H 788-0) RDW-SD (test code = 49.1 fL 39-49.9 37315-0) NRBC x10^3 (test code = See_Comment [Au tomated message] 6704442655) The system [employer] generated this result transmit shira reference range : 10*3/?L. The reference range was not used to interpret this result as normal/abnormal . NRBC/100 WBC (test code See_Comment [Au tomated message] = 4267364703) The system [employer] generated this result transmit shira reference range : 0.0 - 10.0 /100 WBC s. The reference r louise was not used to interpret this result as normal/abnormal . IPF % (test code = 4449505431) Lab Interpretation (test Abnormal code = 68950-0) [facility] RBC (in units), 1 Units 2020-04-03 20:38:48 Test Item Value Reference Range Interpretation Comments Cross Match Result Compatible (test code = 4409) ISBT Blood Type Code (test code = 979963) Unit Blood Type (test A Pos code = 4410) Unit Number (test [id number] code = 4411) Blood Expiration Date & Time (test code = 658098) Status Information Issued (test code = 4412) Product Red Blood Cells Identification (test code = 4413) Product Code (test [id number] Performed at [facility] code = 4414) Laboratory Services - [facility] Blood [address] [address]Croi Free: [phone] A No. [id number] [facility] WITHOUT [id number] 20:37:00 Test Item Value Reference Range Interpretation Comments WBC (test code = 6690-2) See_Comment H [A utomated message] The system [employer] generated this result transmit shira reference range : 4.30 - 11.10 10*3/?L. The reference range was not used to interpret this result as normal/abnormal . RBC (test code = 789-8) See_Comment L [Au tomated message] The system [employer] generated this result transmit shira reference range : 3.93 - 5.25 10* 6/?L. The reference r louise was not used to interpret this result as normal/abnormal . HGB (test code = 718-7) 7.0 g/dL 11.6-15 L HCT (test code = 4544-3) 20.5 % 35.7-45.2 L MCH (test code = 785-6) 30.2 pg 25.9-32.8 MCV (test code = 787-2) 88.4 fL 80.6-95.5 MCHC (test code = 786-4) 34.1 g/dL 31.6-35.1 PLT (test code = 777-3) See_Comment [Au tomated message] The system [employer] generated this result transmit shira reference range : 166 - 358 10*3/?L. The reference range was not used to interpret this result as normal/abnormal . MPV (test code = 11.6 fL 9.5-12.9 87599-6) RDW-CV (test code = 16.3 % 12-15.5 H 788-0) RDW-SD (test code = 51.8 fL 39-49.9 H 41546-6) NRBC x10^3 (test code = See_Comment [Au tomated message] 9393550540) The system [employer] generated this result transmit shira reference range : 10*3/?L. The reference range was not used to interpret this result as normal/abnormal . NRBC/100 WBC (test code See_Comment [Au tomated message] = 6519147006) The system [facility] generated this result transmit shira reference range : 0.0 - 10.0 /100 WBC s. The reference r louise was not used to interpret this result as normal/abnormal . IPF % (test code = 6969739542) Lab Interpretation (test Abnormal code = 12025-1) [facility] WITH [id number] 19:20:00 Test Item Value Reference Range Interpretation Comments WBC (test code = See_Comment H [Automated 6690-2) message] The system which generated this result transmit shira reference range : 4.30 - 11.10 10*3/?L. The reference range was not used to interpret this result as normal/abnormal . RBC (test code = See_Comment L [Automated 789-8) message] The system which generated this result transmit shira reference range : 3.93 - 5.25 10*6/?L. The reference range was not used to interpret this result as normal/abnormal . HGB (test code = 6.5 g/dL 11.6-15 L 718-7) HCT (test code = 18.9 % 35.7-45.2 L 4544-3) MCV (test code = 88.3 fL 80.6-95.5 787-2) MCH (test code = 30.4 pg 25.9-32.8 785-6) MCHC (test code = 34.4 g/dL 31.6-35.1 786-4) RDW-SD (test code = 50.7 fL 39-49.9 H 03566-4) RDW-CV (test code = 16.0 % 12-15.5 H 788-0) PLT (test code = See_Comment [Automated 777-3) message] The system which generated this result transmit shira reference range : 166 - 358 10*3/ ?L. The reference range was not u sed to interpret th is result as normal/abnormal . MPV (test code = 11.6 fL 9.5-12.9 12849-4) NRBC/100 WBC (test See_Comment [Automat ed code = 2428154564) message] The system which generated this result transmit shira reference range : 0.0 - 10.0 /100 WBCs. The reference range was not used to interpret this result as normal/abnormal . NRBC x10^3 (test code See_Comment [Auto mated = 5808154350) message] The system which generated this result transmit shira reference range : 10*3/?L. The reference range was not used to interpret this result as normal/abnormal . SEG % (test code = 46 % 33-76 32362-4) BAND % (test code = 33 % 0-1 H 70308-4) META % (test code = 8 % See_Comment H [Automa shira 86104-5) message] The system which generated this result transmit shira reference range : <=0. The refere nce range was not u sed to interpret th is result as normal/abnormal . MYELO % (test code = 4 % See_Comment H [Autom ated 45230-1) message] The system which generated this result transmit shira reference range : <=0. The refere nce range was not u sed to interpret th is result as normal/abnormal . LYMPH % (test code = 4 % 14-54 L 87285-4) MONO % (test code = 5 % 0-4 H 55201-0) ANC (test code = 42.66 10*3/uL 1.88-7.09 H 4905705233) Lab Interpretation Abnormal (test code = 66621-4) [facility] [id number] 18:33:00 LEUKOCYTOSIS WITH LEUKOERYTHROBLASTOSIS, ABSOLUTE TOXIC NEUTROPHILIA, REACTIVE LYMPHOCYTES AND ABSOLUTE REACTIVE MONOCYTOSIS SUGGESTIVE OF SYSTEMIC INFECTION/INFLAMMATION. EXCLUDE SEPSIS. RARE HYPERSEGMENTED NEUTROPHILS AND RARE CIRCULATING BLASTS NOTED. ? NORMOCYTIC NORMOCHROMIC ANEMIA WITH ANISOPOIK ILOCYTOSIS INCLUDING SHER CELLS, POLYCHROMASIA, OVALOCYTES AND RARE SPHEROCYTES, SUGGESTIVE OF ACUTEBLOOD LOSS/HEMOLYSIS. EXCLUDE EARLY IRON DEFICIENCY. ? PLATELETS ARE ADEQUATE IN NUMBER AND MORPHOLOGY.[facility]2020-[facility]-03 18:05:00 Test Item Value Reference Range Interpretation Comments POCT GLU (test code = 9165451186) 225 mg/dL 70-110 H Lab Interpretation (test code = Abnormal 31872-5) [facility]MRSA / MSSA Screen by Carol [id number] 16:53:00 Test Item Value Reference Range Interpretation Comments MSSA Screen by Carol HIDALGO (test code Negative Negative = 74891-1) MRSA/MSSA Positive? (test code = No No [id number]) Lab Interpretation (test code = Normal 00617-9) [facility] HEAD WO [id number] 14:23:02 No interval acute abnormality.EXAM: CT HEAD WO CONTRAST HISTORY: Altered mental status (AMS), unclear cause TECHNIQUE: COMPARISON: None. 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 The ventricles and sulci are normal in caliber and configuration. N ohydrocephalus, midline shift or pathological extra-axial fluid collection.Basal cisterns are unremarkable. 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 Chronic left po stcentral gyrusinfarct noted. No acute intracranial hemorrhage or significant mass effect. The arnold-whitematter differentiation is a preserved. The calvarium and skull base are unremarkable. 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 Nohydrocephalus, midline shift or pathological extra-axial fluid collection.Basal cisterns are unremarkable.Remote lacunar infarcts are noted in the do and right basal ganglia.Confluent periv entricular and deep white matter hypodensities likelyrepresent microvascular ischemic changes. Chronic left postcentral gyrusinfarct noted.No acute intracranial hemorrhage or significant mass effect. The arnold-whitematter differentiation is a preserved.The calvarium and skull base are unremarkable.IMPRESSIONNo interval acute abnormality.[facility]2020-04-03 14:20:00 Test Item Value Reference Range Interpretation Comments POCT GLU (test code = 6909694381) 210 mg/dL 70-110 H Lab Interpretation (test code = Abnormal 59855-4) [facility] WITH [id number] 11:46:00 Test Item Value Reference Range Interpretation Comments WBC (test code = See_Comment H [Automated 6690-2) message] The system which generated this result transmit shira reference range : 4.30 - 11.10 10*3/?L. The reference range was not used to interpret this result as normal/abnormal . RBC (test code = See_Comment L [Automated 789-8) message] The system which generated this result transmit shira reference range : 3.93 - 5.25 10*6/?L. The reference range was not used to interpret this result as normal/abnormal . HGB (test code = 8.7 g/dL 11.6-15 L 718-7) HCT (test code = 25.7 % 35.7-45.2 L 4544-3) MCV (test code = 86.8 fL 80.6-95.5 787-2) MCH (test code = 29.4 pg 25.9-32.8 785-6) MCHC (test code = 33.9 g/dL 31.6-35.1 786-4) RDW-SD (test code = 48.6 fL 39-49.9 76963-0) RDW-CV (test code = 15.5 % 12-15.5 788-0) PLT (test code = See_Comment [Automated 777-3) message] The system which generated this result transmit shira reference range : 166 - 358 10*3/ ?L. The reference range was not u sed to interpret th is result as normal/abnormal . MPV (test code = 11.7 fL 9.5-12.9 81113-1) NRBC/100 WBC (test See_Comment [Automat ed code = 5327075590) message] The system which generated this result transmit shira reference range : 0.0 - 10.0 /100 WBCs. The reference range was not used to interpret this result as normal/abnormal . NRBC x10^3 (test code See_Comment [Auto mated = 1495949634) message] The system which generated this result transmit shira reference range : 10*3/?L. The reference range was not used to interpret this result as normal/abnormal . GRAN MAT (NEUT) % 59.6 % (test code = 770-8) IMM GRAN % (test code 22.60 % = 8480362774) LYMPH % (test code = 10.0 % 736-9) MONO % (test code = 7.7 % 5905-5) EOS % (test code = 0.0 % 713-8) BASO % (test code = 0.1 % 706-2) GRAN MAT x10^3(ANC) 33.17 10*3/uL 1.88-7.09 H (test code = 4858861388) IMM GRAN x10^3 (test 12.62 10*3/uL 0-0.06 H code = 7977598976) LYMPH x10^3 (test code 5.60 10*3/uL 1.32-3.29 H = 731-0) MONO x10^3 (test code 4.30 10*3/uL 0.33-0.92 H = 742-7) EOS x10^3 (test code = <0.03 0.03-0.39 L 711-2) BASO x10^3 (test code 0.08 10*3/uL 0.01-0.07 H = 704-7) BANDS (test code = Increased A 2592137753) TOXIC CHANGES (test Present A code = 803-7) Lab Interpretation Abnormal (test code = 57639-5) [facility]PROT[facility] / [id number] 11:18:00 Test Item Value Reference Range Interpretation Comments PROTIME PATIENT (test See_Comment H [Auto mated message] code = 5964-2) The system [employer] generated this result transmitted ref erence range: 10.1 - 1 2.6 Seconds. The reference range was not used to int erpret this result as normal/abnormal . INR (test code = 6301-6) Nor mal INR <1.1; Warfarin Therap eutic range 2.0 to 3. 0 or 2.5 to 3.5, dep ending upon the indica tions. Lab Interpretation (test Abnormal code = 74075-0) [facility]EN2020-12-23 11:18:00 Test Item Value Reference Range Interpretation Comments Fibrinogen (test code = 5086411883) 200 mg/dL 167-453 Lab Interpretation (test code = Normal 89670-2) [facility]IN[facility]IS2020-12-23 07:43:00 Test Item Value Reference Range Interpretation Comments APPEARANCE (test code = Cloudy Clear A 8033061715) COLOR (test code = Yellow Yellow 5140801198) PH (test code = 4.8-8.0 0543131799) SP GRAVITY (test code = 1.003-1.030 9243981167) GLU U QUAL (test code = Normal Normal 6963610498) BLOOD (test code = Negative Negative 9075359586) KETONES (test code = Negative Negative 4285446667) PROTEIN (test code = Negative Negative 2887-8) UROBILIN (test code = Normal Normal 8830312556) BILIRUBIN (test code = Negative Negative 2435641480) NITRITE (test code = Negative Negative 8325401938) LEUK TRENA (test code = 25/uL Negative A 8586113496) RBC/HPF (test code = See_Comment H [Autom ated message] 5751078233) The system [employer] generated this result transmitted ref erence range: 0 - 3 HP F. The reference range was not used to int erpret this result as normal/abnormal . WBC/HPF (test code = See_Comment [Autom ated message] 2760434255) The system [employer] generated this result transmitted ref erence range: 0 - 5 HP F. The reference range was not used to int erpret this result as normal/abnormal . BACTERIA (test code = Negative Negative 9553404927) SQ EPITH (test code = See_Comment [Auto mated message] 9882535877) The system [employer] generated this result transmitted ref erence range: <=2 HPF. The reference range was not used to int erpret this result as normal/abnormal . Lab Interpretation (test Abnormal code = 01269-7) [facility] METABOLIC PANEL (NA, K, CL, CO2, GLUCOSE, BUN, CREATININE, CA)2020-04-03 07:35:00 Test Item Value Reference Range Interpretation Comments NA (test code = 141 mmol/L 135-145 4882763713) K (test code = 3.8 mmol/L 3.5-5 6266093685) CL (test code = 120 mmol/L 98-108 H 7779636036) CO2 TOTAL (test code = 16 mmol/L 23-31 L 0846377835) AGAP (test code = 2-16 4111927939) BUN (test code = 93 mg/dL 7-23 H 3418562644) GLUCOSE (test code = 161 mg/dL 70-110 H 7489270926) CREATININE (test code = 1.75 mg/dL 0.5-1.04 H 0219527399) CALCIUM (test code = 7.9 mg/dL 8.6-10.6 L 8941840467) eGFR Calculation mL/min/1.73m2 (Non-) (test code = 2458741315) eGFR Calculation mL/min/1.73m2 () (test code = 2843409032) JACI (test code = JACI) Association of Glomerular Filtration Rate (GFR) and Staging of Kidney Disease* + --+ --+ ------+| GFR (mL/min/1.73 m2) ?| With Kidney Damage ?| ?Without Kidney Damage+ --------+ --------+ +| ?>90 ?| ?Stage one ?| ? Normal ?+ ---+ ---+ -------+| ?60-89 ?| ?Stage two ?| ? Decreased GFR ? + --+ --+ ------+| ?30-59 ?| ?Stage three ?| ? Stage three ? + --+ --+ ------+| ?15-29 ?| ?Stage four ? | ? Stage four ?+ ---+ ---+ -------+| ?<15 (or dialysis) ? ?| ?Stage five ? | ? Stage five ?+ ---+ ---+ -------+ *Each stage assumes the associated GFR level has been in effect for at least three months. ?Stages 1 to 5, with or without kidney disease, indicate chronic kidney disease. Notes: Determination of stages one and two (with eGFR >59mL/min/1.73 m2) requires estimation of kidney damage for at least three months as defined by structural or functional abnormalities of the kidney, manifested by either:Pathological abnormalities or Markers of kidney damage (including abnormalities in the composition of the blood or urine or abnormalities in imaging tests). Lab Interpretation Abnormal (test code = 25557-2) [facility] (ALB,T.PRO,BILI T,BU/BC,ALT,AST,ALK PHOS)2020-04-03 07:35:00 Test Item Value Reference Range Interpretation Comments TOTAL BILI (test code = 7313377824) 0.7 mg/dL 0.1-1.1 BILI UNCON (test code = 3308030959) 0.5 mg/dL 0.1-1.1 BILI CONJ (test code = 6303184708) 0.0 mg/dL 0-0.3 T PROTEIN (test code = 3305502258) 4.7 g/dL 6.3-8.2 L ALBUMIN (test code = 0857707221) 2.0 g/dL 3.5-5 L ALK PHOS (test code = 8296786378) 109 U/L 34-122 ALTv (test code = 1742-6) 41 U/L 5-35 H AST(SGOT) (test code = 7849805952) 72 U/L 13-40 H Lab Interpretation (test code = Abnormal 70687-2) [facility] + LACTIC [id number] 06:09:00 Test Item Value Reference Range Interpretation Comments PH (test code = 2) 7.35-7.45 PCO2 (test code = See_Comment L [Automat ed 8233975623) message] The sy stem which generated this result transmitted reference range : 35 - 45 mmHg. The reference range was not used to interpret this result as normal/abnormal . PO2 (test code = See_Comment L [Automated 7939451862) message] The sy stem which generated this result transmitted reference range : 80 - 100 mmHg. The reference range was not used to interpret this result as normal/abnormal . HCO3 (test code = See_Comment L [Automate d 4899333854) message] The sy stem which generated this result transmitted reference range : 22 - 26 mEq/L. The reference range was not used to interpret this result as normal/abnormal . BE (test code = See_Comment L [Automated 0664846089) message] The sy stem which generated this result transmitted reference range : -3.0 - 3.0 mEq/ L. The reference r louise was not used to interpret this result as normal/abnormal . THB (test code = 9.6 g/dL 12-16 L 0425091930) %O2HB (test code = 94.1 % 94-99 4995196616) %COHB ART (test code = 0.5 % 0-1.5 5383611471) %METHB ART (test code = 0.2 % 0.4-1.5 L 7441433048) VOL%O2 ART (test code = 12.8 % 15-23 L 8154867314) NA (test code = 141 mmol/L 135-145 8296278091) K+ (test code = 3.6 mmol/L 3.5-5 9633348898) AC CA IONZ (test code = 4.90 mg/dL 4.5-5.3 6626377185) GLUCOSE (test code = 176 mg/dL 70-110 H 9468973803) LACTIC ACID (test code 0.89 mmol/L = 5102614510) Lab Interpretation Abnormal (test code = 75376-6) [facility] 1 [id number] 04:50:28 No acute intrathoracic abnormality. Preliminary Report Dictated by Resident: Deng Garcia MD., have reviewed this study and agree withthe above report.PROCEDURE: XR CHEST 1 VW CLINICAL INDICATION: confirm central line placement COMPARISON: Chest radiograph dated 03/28/2020. FINDINGS: Interval placement of left IJ catheter with tip projects over the rightatrium.Aortic arch calcifications are noted. The cardiomediastinal silhouetteappears unchanged. No focal consolidation, pleural effusion orpneumothorax.No acute osseous abnormality is noted. [facility], Radiant ResultsInft User - 04/02/2020 10:51 PM CSTPROCEDURE: XR CHEST 1 VWCLINICAL INDICATION: confirm central lineplacement COMPARISON: Chest radiograph dated 03/28/2020.FINDINGS:Interval placement of left IJ catheter with tip projects over the rightatrium.Aortic arch calcifications are noted. The cardiomediastinal silhouetteappears unchanged. No focal consolidation, pleural effusion orpneumothorax.No acute osseous abnormality is noted.IMPRESSIONNo acute intrathoracic abnormality.Preliminary Report Dictated by Resident: Deng Landry MD., have reviewed this study and agree withthe above report.[facility] WITH [id number] 04:06:00 Test Item Value Reference Range Interpretation Comments WBC (test code = See_Comment H [Automated 6690-2) message] The system which generated this result transmit shira reference range : 4.30 - 11.10 10*3/?L. The reference range was not used to interpret this result as normal/abnormal . RBC (test code = See_Comment L [Automated 789-8) message] The system which generated this result transmit shira reference range : 3.93 - 5.25 10*6/?L. The reference range was not used to interpret this result as normal/abnormal . HGB (test code = 9.7 g/dL 11.6-15 L 718-7) HCT (test code = 28.7 % 35.7-45.2 L 4544-3) MCV (test code = 87.5 fL 80.6-95.5 787-2) MCH (test code = 29.6 pg 25.9-32.8 785-6) MCHC (test code = 33.8 g/dL 31.6-35.1 786-4) RDW-SD (test code = 47.2 fL 39-49.9 94329-2) RDW-CV (test code = 15.0 % 12-15.5 788-0) PLT (test code = See_Comment [Automated 777-3) message] The system which generated this result transmit shira reference range : 166 - 358 10*3/ ?L. The reference range was not u sed to interpret th is result as normal/abnormal . MPV (test code = 11.3 fL 9.5-12.9 83928-3) NRBC/100 WBC (test See_Comment [Automat ed code = 5073913920) message] The system which generated this result transmit shira reference range : 0.0 - 10.0 /100 WBCs. The reference range was not used to interpret this result as normal/abnormal . NRBC x10^3 (test code See_Comment [Auto mated = 1984059082) message] The system which generated this result transmit shira reference range : 10*3/?L. The reference range was not used to interpret this result as normal/abnormal . GRAN MAT (NEUT) % 60.2 % (test code = 770-8) IMM GRAN % (test code 23.50 % = 5914289191) LYMPH % (test code = 9.5 % 736-9) MONO % (test code = 6.7 % 5905-5) EOS % (test code = 0.0 % 713-8) BASO % (test code = 0.1 % 706-2) GRAN MAT x10^3(ANC) 31.12 10*3/uL 1.88-7.09 H (test code = 3211038018) IMM GRAN x10^3 (test 12.13 10*3/uL 0-0.06 H code = 8391102210) LYMPH x10^3 (test code 4.89 10*3/uL 1.32-3.29 H = 731-0) MONO x10^3 (test code 3.47 10*3/uL 0.33-0.92 H = 742-7) EOS x10^3 (test code = <0.03 0.03-0.39 L 711-2) BASO x10^3 (test code 0.07 10*3/uL 0.01-0.07 = 704-7) BANDS (test code = Increased A 1917608014) Lab Interpretation Abnormal (test code = 98743-8) [facility]2020-04-03 03:24:00 Test Item Value Reference Range Interpretation Comments POCT GLU (test code = 0090570952) 211 mg/dL 70-110 H Lab Interpretation (test code = Abnormal 12081-5) [facility]2020-04-03 01:28:00 Test Item Value Reference Range Interpretation Comments POCT GLU (test code = 2155070119) 217 mg/dL 70-110 H Lab Interpretation (test code = Abnormal 74141-4) [facility] WITHOUT [id number] 21:56:00 Test Item Value Reference Range Interpretation Comments WBC (test code = 6690-2) See_Comment H [A utomated message] The system [employer] generated this result transmit shira reference range : 4.30 - 11.10 10*3/?L. The reference range was not used to interpret this result as normal/abnormal . RBC (test code = 789-8) See_Comment L [Au tomated message] The system [employer] generated this result transmit shira reference range : 3.93 - 5.25 10* 6/?L. The reference r louise was not used to interpret this result as normal/abnormal . HGB (test code = 718-7) 6.9 g/dL 11.6-15 L HCT (test code = 4544-3) 21.6 % 35.7-45.2 L MCH (test code = 785-6) 28.9 pg 25.9-32.8 MCV (test code = 787-2) 90.4 fL 80.6-95.5 MCHC (test code = 786-4) 31.9 g/dL 31.6-35.1 PLT (test code = 777-3) See_Comment H [Au tomated message] The system [employer] generated this result transmit shira reference range : 166 - 358 10*3/?L. The reference range was not used to interpret this result as normal/abnormal . MPV (test code = 11.2 fL 9.5-12.9 62343-1) RDW-CV (test code = 15.2 % 12-15.5 788-0) RDW-SD (test code = 49.1 fL 39-49.9 35626-2) NRBC x10^3 (test code = See_Comment [Au tomated message] 4933602219) The system [employer] generated this result transmit shira reference range : 10*3/?L. The reference range was not used to interpret this result as normal/abnormal . NRBC/100 WBC (test code See_Comment [Au tomated message] = 3301485713) The system [facility] generated this result transmit shira reference range : 0.0 - 10.0 /100 WBC s. The reference r louise was not used to interpret this result as normal/abnormal . IPF % (test code = 8676538330) Lab Interpretation (test Abnormal code = 60661-9) [facility]2020-12-22 20:43:00 Test Item Value Reference Range Interpretation Comments Fibrinogen (test code = 2111247528) 188 mg/dL 167-453 Lab Interpretation (test code = Normal 48798-6) [facility]Prep[facility] Packed RBC (in units), 2 Units 2020-04-02 20:27:33 Test Item Value Reference Range Interpretation Comments Cross Match Result Compatible (test code = 4409) ISBT Blood Type Code (test code = 407038) Unit Blood Type (test A Pos code = 4410) Unit Number (test [id number] code = 4411) Blood Expiration Date & Time (test code = 287617) Status Information Issued (test code = 4412) Product Red Blood Cells Identification (test code = 4413) Product Code (test M7550N39 Performed at [facility] code = 4414) Laboratory Services - [facility] Blood [address] [address]Wnpi Free: [phone] A No. [id number] [facility] WITHOUT [id number] 20:21:00 Test Item Value Reference Range Interpretation Comments WBC (test code = 6690-2) See_Comment H [A utomated message] The system [employer] generated this result transmit shira reference range : 4.30 - 11.10 10*3/?L. The reference range was not used to interpret this result as normal/abnormal . RBC (test code = 789-8) See_Comment L [Au tomated message] The system [facility] [employer] generated this result transmit shira reference range : 3.93 - 5.25 10* 6/?L. The reference r louise was not used to interpret this result as normal/abnormal . HGB (test code = 718-7) 5.7 g/dL 11.6-15 L HCT (test code = 4544-3) 17.9 % 35.7-45.2 L MCH (test code = 785-6) 28.8 pg 25.9-32.8 MCV (test code = 787-2) 90.4 fL 80.6-95.5 MCHC (test code = 786-4) 31.8 g/dL 31.6-35.1 PLT (test code = 777-3) See_Comment H [Au tomated message] The system [employer] generated this result transmit shira reference range : 166 - 358 10*3/?L. The reference range was not used to interpret this result as normal/abnormal . MPV (test code = 11.3 fL 9.5-12.9 28275-0) RDW-CV (test code = 16.0 % 12-15.5 H 788-0) RDW-SD (test code = 52.8 fL 39-49.9 H 50406-9) NRBC x10^3 (test code = See_Comment [Au tomated message] 4201037359) The system [employer] generated this result transmit shira reference range : 10*3/?L. The reference range was not used to interpret this result as normal/abnormal . NRBC/100 WBC (test code See_Comment [Au tomated message] = 2621502939) The [facility] generated this result transmit shira reference range : 0.0 - 10.0 /100 WBC s. The reference r louise was not used to interpret this result as normal/abnormal . IPF % (test code = 5623782941) Lab Interpretation (test Abnormal code = 53158-0) [facility] (ID NOW RAPID TESTING)2020-04-02 18:58:00 Test Item Value Reference Range Interpretation Comments SARS-CoV-2 Rapid ID NOW Not Detected Not Detected (test code = 70754-3) JACI (test code = JACI) ID NOW COVID-19 Assay is an isothermal nucleic acid amplification test intended for the qualitative detection of nucleic acid from SARS-CoV-2 viral RNA in nasopharyngeal (INNER DIAMETER GRINDER TOOL) specimens. It is used under Emergency Use Authorization (EUA) by FDA. The limit of detection (LOD) of the assay is 125 Genome Equivalents/mL. A positive result is indicative of the presence of SARS-CoV-2 RNA. ?Clinical correlation with patient history and other diagnostic information is necessary to determine patient infection status. A negative (Not Detected) result does not preclude SARS-CoV-2 infection. In patients with clinical symptoms and other tests that are consistent with SARS-CoV-2 infection, negative results should be treated as presumptive negative and a new specimen should be tested with alternative PCR molecular test. Invalid: Please collect a new specimen for repeat patient testing if clinically indicated. Lab Interpretation Normal (test code = 58662-7) [facility]2020-04-02 18:08:00 Test Item Value Reference Range Interpretation Comments POCT GLU (test code = 6405324225) 234 mg/dL 70-110 H Lab Interpretation (test code = Abnormal 62350-5) [facility] NortheastINDIRECT ANTIGLOBULIN [id number] 17:00:04 Test Item Value Reference Range Interpretation Comments IAT (test code = Negative Performed a t [facility] 1185) Laboratory [facility] Blood [address] [place], [place] [address]Fdxg Free: [phone] A No. [id number] [facility]ABORH INVESTIGATION [id number] 16:47:59 Test Item Value Reference Range Interpretation Comments ABO & RH (test code A Positive Performe d at [facility] = 20) Laboratory [facility] Blood Bank[address] [facility] s [address]Qgsp Free: [phone] A No. [id number] [facility]BLO[facility] CULTURE [id number] 16:01:00 Test Item Value Reference Range Interpretation Comments Blood Culture-Aerobic No organisms No growth Previo us (test code = 20297-2) isolated prelim inary verified result was Culture In Progress on 03/28/2020 at 1301 CSTPreviou s preliminary verified result was No growth a t 24 hours on 03/29/2020 at 1001 CSTPreviou s preliminary verified result was No growth a t 48 hours on 03/30/2020 at 1001 CSTPreviou s preliminary verified result was No growth a t 72 hours on 03/31/2020 at 1001 [employer] Blood No organisms No growth Previous Culture-Anaerobic isolated preliminar y (test code = 89562-3) verifi ed result was Culture In Progress on 03/28/2020 at 1301 CSTPreviou s preliminary verified result was No growth a t 24 hours on 03/29/2020 at 1001 CSTPreviou s preliminary verified result was No growth a t 48 hours on 03/30/2020 at 1001 CSTPreviou s preliminary verified result was No growth a t 72 hours on 03/31/2020 at 1001 [employer] Lab Interpretation Normal (test code = 59063-9) [facility] WITH [id number] 15:54:00 Test Item Value Reference Range Interpretation Comments WBC (test code = See_Comment H [Automated 6690-2) message] The system which generated this result transmit shira reference range : 4.30 - 11.10 10*3/?L. The reference range was not used to interpret this result as normal/abnormal . RBC (test code = See_Comment L [Automated 789-8) message] The system which generated this result transmit shira reference range : 3.93 - 5.25 10*6/?L. The reference range was not used to interpret this result as normal/abnormal . HGB (test code = 5.0 g/dL 11.6-15 LL 718-7) HCT (test code = 15.8 % 35.7-45.2 L 4544-3) MCV (test code = 87.8 fL 80.6-95.5 787-2) MCH (test code = 27.8 pg 25.9-32.8 785-6) MCHC (test code = 31.6 g/dL 31.6-35.1 786-4) RDW-SD (test code = 55.6 fL 39-49.9 H 41834-8) RDW-CV (test code = 17.3 % 12-15.5 H 788-0) PLT (test code = See_Comment H [Automated 777-3) message] The system which generated this result transmit shira reference range : 166 - 358 10*3/ ?L. The reference range was not u sed to interpret th is result as normal/abnormal . MPV (test code = 11.5 fL 9.5-12.9 51462-4) NRBC/100 WBC (test See_Comment [Automat ed code = 5294500168) message] The system which generated this result transmit shira reference range : 0.0 - 10.0 /100 WBCs. The reference range was not used to interpret this result as normal/abnormal . NRBC x10^3 (test code See_Comment [Auto mated = 3400982351) message] The system which generated this result transmit shira reference range : 10*3/?L. The reference range was not used to interpret this result as normal/abnormal . SEG % (test code = 55 % 33-76 84917-3) BAND % (test code = 16 % 0-1 H 85546-6) META % (test code = 8 % See_Comment H [Automa shira 43716-4) message] The system which generated this result transmit shira reference range : <=0. The refere nce range was not u sed to interpret th is result as normal/abnormal . MYELO % (test code = 5 % See_Comment H [Autom ated 51175-8) message] The system which generated this result transmit shira reference range : <=0. The refere nce range was not u sed to interpret th is result as normal/abnormal . LYMPH % (test code = 10 % 14-54 L 62461-9) MONO % (test code = 6 % 0-4 H 64802-8) ANC (test code = 32.85 10*3/uL 1.88-7.09 H 3452430218) Lab Interpretation Abnormal (test code = 20779-5) [facility]OSTRIDIUM DIFFICILE [id number] 15:27:00 Test Item Value Reference Range Interpretation Comments Clostridioides (Clostridium) Negative Negative difficile (test code = 64493-5) Lab Interpretation (test code = Normal 74529-0) [facility]FERRITIN [id number] 14:35:00 Test Item Value Reference Range Interpretation Comments FERRITIN (test code = 31.7 ng/mL 4828714995) JACI (test code = JACI) Biotin has been reported to cause a negative bias, interpret results relative to patient's use of biotin. Lab Interpretation (test Normal code = 59214-3) [facility] NortheastIRO [id number] 14:08:00 Test Item Value Reference Range Interpretation Comments IRON (test code = 7982631273) 43 ug/dL 50-160 L TIBC (test code = 1495320747) 243 ug/dL 250-410 L % FE SAT (test code = 0393719544) 18 % 20-50 L Lab Interpretation (test code = Abnormal 46483-2) [facility] METABOLIC PANEL (NA, K, CL, CO2, GLUCOSE, BUN, CREATININE, CA)2020-04-02 13:20:00 Test Item Value Reference Range Interpretation Comments NA (test code = 139 mmol/L 135-145 4753441247) K (test code = 3.8 mmol/L 3.5-5 2228566777) CL (test code = 116 mmol/L 98-108 H 3600351698) CO2 TOTAL (test code = 19 mmol/L 23-31 L 0859912004) AGAP (test code = 2-16 2539805558) BUN (test code = 87 mg/dL 7-23 H 7545563810) GLUCOSE (test code = 195 mg/dL 70-110 H 5856820923) CREATININE (test code = 1.45 mg/dL 0.5-1.04 H 8012106083) CALCIUM (test code = 8.1 mg/dL 8.6-10.6 L 9349238803) eGFR Calculation mL/min/1.73m2 (Non-) (test code = 5879739453) eGFR Calculation mL/min/1.73m2 () (test code = 7100644318) JACI (test code = JACI) Association of Glomerular Filtration Rate (GFR) and Staging of Kidney Disease* + --+ --+ ------+| GFR (mL/min/1.73 m2) ?| With Kidney Damage ?| ?Without Kidney Damage+ --------+ --------+ +| ?>90 ?| ?Stage one ?| ? Normal ?+ ---+ ---+ -------+| ?60-89 ?| ?Stage two ?| ? Decreased GFR ? + --+ --+ ------+| ?30-59 ?| ?Stage three ?| ? Stage three ? + --+ --+ ------+| ?15-29 ?| ?Stage four ? | ? Stage four ?+ ---+ ---+ -------+| ?<15 (or dialysis) ? ?| ?Stage five ? | ? Stage five ?+ ---+ ---+ -------+ *Each stage assumes the associated GFR level has been in effect for at least three months. ?Stages 1 to 5, with or without kidney disease, indicate chronic kidney disease. Notes: Determination of stages one and two (with eGFR >59mL/min/1.73 m2) requires estimation of kidney damage for at least three months as defined by structural or functional abnormalities of the kidney, manifested by either:Pathological abnormalities or Markers of kidney damage (including abnormalities in the composition of the blood or urine or abnormalities in imaging tests). Lab Interpretation Abnormal (test code = 28840-2) [facility] GLUCOSE (AUTOMATED)2020-04-02 03:06:00 Test Item Value Reference Range Interpretation Comments POCT GLU (test code = 0222349710) 174 mg/dL 70-110 H Lab Interpretation (test code = Abnormal 31058-8) [facility] GLUCOSE (AUTOMATED)2020-04-01 23:26:00 Test Item Value Reference Range Interpretation Comments POCT GLU (test code = 0240363941) 183 mg/dL 70-110 H Lab Interpretation (test code = Abnormal 05808-9) [facility] GLUCOSE (AUTOMATED)2020-04-01 18:38:00 Test Item Value Reference Range Interpretation Comments POCT GLU (test code = 0729628225) 192 mg/dL 70-110 H Lab Interpretation (test code = Abnormal 74115-7) [facility] GLUCOSE (AUTOMATED)2020-04-01 14:20:00 Test Item Value Reference Range Interpretation Comments POCT GLU (test code = 9681039452) 126 mg/dL 70-110 H Lab Interpretation (test code = Abnormal 53415-4) [facility] WITH [id number] 12:36:00 Test Item Value Reference Range Interpretation Comments WBC (test code = See_Comment H [Automated 6690-2) message] The system which generated this result transmitted reference range : 4.30 - 11.10 10*3/?L. The reference range was not used to interpret this result as normal/abnormal . RBC (test code = See_Comment L [Automated 789-8) message] The system which generated this result transmitted reference range : 3.93 - 5.25 10*6/?L. The reference range was not used to interpret this result as normal/abnormal . HGB (test code = 8.9 g/dL 11.6-15 L 718-7) HCT (test code = 28.5 % 35.7-45.2 L 4544-3) MCV (test code = 87.2 fL 80.6-95.5 787-2) MCH (test code = 27.2 pg 25.9-32.8 785-6) MCHC (test code = 31.2 g/dL 31.6-35.1 L 786-4) RDW-SD (test code = 55.1 fL 39-49.9 H 79993-5) RDW-CV (test code = 17.2 % 12-15.5 H 788-0) PLT (test code = See_Comment H [Automated 777-3) message] The system which generated this result transmitted reference range : 166 - 358 10*3/?L. The reference range was not used to interpret this result as normal/abnormal . MPV (test code = 10.6 fL 9.5-12.9 76769-9) NRBC/100 WBC (test See_Comment [Automat ed code = 7783350205) message] The system which generated this result transmitted reference range : 0.0 - 10.0 /100 WBCs. The reference range was not used to interpret this result as normal/abnormal . NRBC x10^3 (test code See_Comment [Auto mated = 7295933068) message] The system which generated this result transmitted reference range : 10*3/?L. The reference range was not used to interpret this result as normal/abnormal . GRAN MAT (NEUT) % 73.8 % (test code = 770-8) IMM GRAN % (test code 11.20 % = 9800231239) LYMPH % (test code = 8.6 % 736-9) MONO % (test code = 5.5 % 5905-5) EOS % (test code = 0.8 % 713-8) BASO % (test code = 0.1 % 706-2) GRAN MAT x10^3(ANC) 30.46 10*3/uL 1.88-7.09 H (test code = 8973431182) IMM GRAN x10^3 (test 4.62 10*3/uL 0-0.06 H code = 2650906494) LYMPH x10^3 (test 3.53 10*3/uL 1.32-3.29 H code = 731-0) MONO x10^3 (test code 2.29 10*3/uL 0.33-0.92 H = 742-7) EOS x10^3 (test code 0.35 10*3/uL 0.03-0.39 = 711-2) BASO x10^3 (test code 0.03 10*3/uL 0.01-0.07 = 704-7) BANDS (test code = MARKED INCREASED A 8831464189) Lab Interpretation Abnormal (test code = 26206-3) [facility] METABOLIC PANEL (NA, K, CL, CO2, GLUCOSE, BUN, CREATININE, CA)2020-04-01 12:11:00 Test Item Value Reference Range Interpretation Comments NA (test code = 139 mmol/L 135-145 9122202206) K (test code = 3.5 mmol/L 3.5-5 4498709911) CL (test code = 113 mmol/L 98-108 H 0270039284) CO2 TOTAL (test code = 22 mmol/L 23-31 L 3318075382) AGAP (test code = 2-16 8661062388) BUN (test code = 61 mg/dL 7-23 H 3246969966) GLUCOSE (test code = 109 mg/dL 70-110 2382865911) CREATININE (test code = 1.57 mg/dL 0.5-1.04 H 3587504307) CALCIUM (test code = 8.6 mg/dL 8.6-10.6 1768063934) eGFR Calculation mL/min/1.73m2 (Non-) (test code = 9495844876) eGFR Calculation mL/min/1.73m2 () (test code = [id number]) JACI (test code = JACI) Association of Glomerular Filtration Rate (GFR) and Staging of Kidney Disease* + --+ --+ ------+| GFR (mL/min/1.73 m2) ?| With Kidney Damage ?| ?Without Kidney Damage+ --------+ --------+ +| ?>90 ?| ?Stage one ?| ? Normal ?+ ---+ ---+ -------+| ?60-89 ?| ?Stage two ?| ? Decreased GFR ? + --+ --+ ------+| ?30-59 ?| ?Stage three ?| ? Stage three ? + --+ --+ ------+| ?15-29 ?| ?Stage four ? | ? Stage four ?+ ---+ ---+ -------+| ?<15 (or dialysis) ? ?| ?Stage five ? | ? Stage five ?+ ---+ ---+ -------+ *Each stage assumes the associated GFR level has been in effect for at least three months. ?Stages 1 to 5, with or without kidney disease, indicate chronic kidney disease. Notes: Determination of stages one and two (with eGFR >59mL/min/1.73 m2) requires estimation of kidney damage for at least three months as defined by structural or functional abnormalities of the kidney, manifested by either:Pathological abnormalities or Markers of kidney damage (including abnormalities in the composition of the blood or urine or abnormalities in imaging tests). Lab Interpretation Abnormal (test code = 12082-6) [facility] ABDOMEN [id number] 05:23:06 Gallbladder surgically absent. Otherwise normal exam. Preliminary Report Dictated by Resident: Chris Lynn MD., have reviewed this study and agree with the abovereport.EXAM: US ABDOMEN COMPLETE HISTORY: 80 years-old Female with possible intra-abdominal infection . TECHNIQUE: Complete abdominal ultrasound was performed. Main portal veinwas evaluated with color Doppler imaging. Supervisor Edging images wereobtained for the record. COMPARISON: None FINDINGS: LIVER: Length: 16.5 cm.Parenchyma: Normal hepatic echogenicity and echotexture. No focal lesion isdetected.Portal vein: Hepatopetal flow present in the main portal vein. The mainportal vein measures 1.0 cm in diameter with measured velocity of 39 cm/s. GALLBLADDER:The gallbladder is absent, likely surgically. BILE DUCTS:No intra- or extrahepatic biliary dilatation..Common Duct diameter: 9 mm. Mildly dilated, likely secondary to reservoirphenomenon. PANCREAS: The visualized pancreas is unremarkable. SPLEEN: The spleen is normal in size. The spleen measures 12.5 cm. KIDNEYS:RIGHT:Size: 10.4 x 3.9 x 4.4 cm.Parenchyma: Normalrenal cortical echogenicity and thickness. An anechoicsimple cyst in the superior pole, measuring 1.5 cm. Another anechoic simplecyst in the inferior pole, measuring 3.5 cm.Collecting System: No hydrone phrosis.Other: None. LEFT:Size: 9.6 x 5.3 x 4.4 cmParenchyma:Normal renal cortical echogenicity and thickness. No focal solidor cystic renal lesions are detected.Collecting System: No hydronephrosis.Other: None. AORTA:Abdominal aorta is normal in caliber where visualized. The mid abdomenaorta measures1.6 cm in diameter. [facility], Radiant Results Inft User - 03/31/2020 11:24 PM CSTEXAM: US ABDOMEN COMPLETEHISTORY: 80 years-old Female with possible intra-abdominal infection .TECHNIQUE: Complete abdominal ultrasound was performed. Main portal veinwas evaluated with color Doppler imaging. Supervisor Edging images wereobtained for the record.COMPARISON: NoneFINDINGS: LIVER: Length: 16.5 cm.Parenchyma: Normal hepatic echogenicity and echotexture. No focal lesion isdetected.Portal vein: Hepatopetal flow present in the main portal vein. The mainportal vein measures 1.0 cm in diameter with measured velocity of 39 cm/s.GALLBLADDER:The gallbladder is absent, likely surgically.BILE DUCTS:No intra- or extrahepatic biliary dilatation..Common Duct diameter: 9 mm. Mildly dilated, likely secondary to reservoirphenomenon.PANCREAS: The visualized pancreas is unremarkable.SPLEEN: The spleen is normal in size. The spleen measures 12.5 cm.KIDNEYS:RIGHT:Size: 10.4 x 3.9 x 4.4 cm.Parenchyma: Normal renal cortical echogenicity and thickness. An anechoicsimple cyst in the superior pole, measuring 1.5 cm. Another anechoicsimplecyst in the inferior pole, measuring 3.5 cm.Collecting System: No hydronephrosis.Other: None.LEFT:Size: 9.6 x 5.3 x 4.4 cmParenchyma:Normal renal cortical echogenicity and thickness. No focal solidor cystic renal lesions are detected.Collecting System: No hydronephrosis.Other: None.AORTA:Abdominal aorta is normal in caliber where visualized. The mid abdomenaorta measures 1.6 cm in diameter.IMPRESSIONGallbladder surgically absent. Otherwise normal exam.Preliminary Report Dictated by Resident: Chris Dale MD., have reviewed this study and agree with the abovereport.[facility] 03:27:00 Test Item Value Reference Range Interpretation Comments POCT GLU (test code = 4076976341) 132 mg/dL 70-110 H Lab Interpretation (test code = Abnormal 20664-9) [facility] WITH [id number] 14:41:00 Test Item Value Reference Range Interpretation Comments WBC (test code = See_Comment H [Automated 6690-2) message] The system which generated this result transmitted reference range : 4.30 - 11.10 10*3/?L. The reference range was not used to interpret this result as normal/abnormal . RBC (test code = See_Comment L [Automated 789-8) message] The system which generated this result transmitted reference range : 3.93 - 5.25 10*6/?L. The reference range was not used to interpret this result as normal/abnormal . HGB (test code = 9.9 g/dL 11.6-15 L 718-7) HCT (test code = 31.3 % 35.7-45.2 L 4544-3) MCV (test code = 86.5 fL 80.6-95.5 787-2) MCH (test code = 27.3 pg 25.9-32.8 785-6) MCHC (test code = 31.6 g/dL 31.6-35.1 786-4) RDW-SD (test code = 54.5 fL 39-49.9 H 02314-7) RDW-CV (test code = 17.2 % 12-15.5 H 788-0) PLT (test code = See_Comment H [Automated 777-3) message] The system which generated this result transmitted reference range : 166 - 358 10*3/?L. The reference range was not used to interpret this result as normal/abnormal . MPV (test code = 10.8 fL 9.5-12.9 40977-3) NRBC/100 WBC (test See_Comment [Automat ed code = 7646158698) message] The system which generated this result transmitted reference range : 0.0 - 10.0 /100 WBCs. The reference range was not used to interpret this result as normal/abnormal . NRBC x10^3 (test code See_Comment [Auto mated = 3836971748) message] The system which generated this result transmitted reference range : 10*3/?L. The reference range was not used to interpret this result as normal/abnormal . GRAN MAT (NEUT) % 87.5 % (test code = 770-8) IMM GRAN % (test code 5.10 % = 4697280855) LYMPH % (test code = 3.4 % 736-9) MONO % (test code = 3.8 % 5905-5) EOS % (test code = 0.2 % 713-8) BASO % (test code = 0.0 % 706-2) GRAN MAT x10^3(ANC) 58.27 10*3/uL 1.88-7.09 H (test code = 7629991188) IMM GRAN x10^3 (test 3.42 10*3/uL 0-0.06 H code = 1223341836) LYMPH x10^3 (test 2.29 10*3/uL 1.32-3.29 code = 731-0) MONO x10^3 (test code 2.53 10*3/uL 0.33-0.92 H = 742-7) EOS x10^3 (test code 0.15 10*3/uL 0.03-0.39 = 711-2) BASO x10^3 (test code <0.03 0.01-0.07 = 704-7) SHER CELLS (test code 2+ See_Comment A [Auto mated = 4898-1) message] The system which generated this result transmitted reference range : (none). The reference range was not used to interpret this result as normal/abnormal . BANDS (test code = MARKED INCREASED A 0683254079) REACT LYMPHS (test Rare code = 7820803101) Lab Interpretation Abnormal (test code = 61765-8) [facility] 14:31:00 Test Item Value Reference Range Interpretation Comments POCT GLU (test code = 8955765450) 175 mg/dL 70-110 H Lab Interpretation (test code = Abnormal 10698-2) [facility]996[facility] (ALB,T.PRO,BILI T,BU/BC,ALT,AST,ALK PHOS)2020-03-31 12:59:00 Test Item Value Reference Range Interpretation Comments TOTAL BILI (test code = 8296724167) 0.4 mg/dL 0.1-1.1 BILI UNCON (test code = 8149533732) 0.2 mg/dL 0.1-1.1 BILI CONJ (test code = 8072234047) 0.0 mg/dL 0-0.3 T PROTEIN (test code = 6272588666) 5.6 g/dL 6.3-8.2 L ALBUMIN (test code = 2155984698) 2.5 g/dL 3.5-5 L ALK PHOS (test code = 3124227470) 170 U/L 34-122 H ALTv (test code = 1742-6) 20 U/L 5-35 AST(SGOT) (test code = 5053105663) 32 U/L 13-40 Lab Interpretation (test code = Abnormal 60787-3) [facility] (NA, K, CL, CO2, GLUCOSE, BUN, CREATININE, CA)2020-03-31 12:45:00 Test Item Value Reference Range Interpretation Comments NA (test code = 136 mmol/L 135-145 6120812504) K (test code = 3.7 mmol/L 3.5-5 9800779238) CL (test code = 109 mmol/L 98-108 H 1732804545) CO2 TOTAL (test code = 19 mmol/L 23-31 L 6966801448) AGAP (test code = 2-16 7025283509) BUN (test code = 70 mg/dL 7-23 H 1733241815) GLUCOSE (test code = 116 mg/dL 70-110 H 2147482869) CREATININE (test code = 2.00 mg/dL 0.5-1.04 H 1502717233) CALCIUM (test code = 9.1 mg/dL 8.6-10.6 1848714443) eGFR Calculation mL/min/1.73m2 (Non-) (test code = 7450458020) eGFR Calculation mL/min/1.73m2 () (test code = 9906032616) JACI (test code = JACI) Association of Glomerular Filtration Rate (GFR) and Staging of Kidney Disease* + --+ --+ ------+| GFR (mL/min/1.73 m2) ?| With Kidney Damage ?| ?Without Kidney Damage+ --------+ --------+ +| ?>90 ?| ?Stage one ?| ? Normal ?+ ---+ ---+ -------+| ?60-89 ?| ?Stage two ?| ? Decreased GFR ? + --+ --+ ------+| ?30-59 ?| ?Stage three ?| ? Stage three ? + --+ --+ ------+| ?15-29 ?| ?Stage four ? | ? Stage four ?+ ---+ ---+ -------+| ?<15 (or dialysis) ? ?| ?Stage five ? | ? Stage five ?+ ---+ ---+ -------+ *Each stage assumes the associated GFR level has been in effect for at least three months. ?Stages 1 to 5, with or without kidney disease, indicate chronic kidney disease. Notes: Determination of stages one and two (with eGFR >59mL/min/1.73 m2) requires estimation of kidney damage for at least three months as defined by structural or functional abnormalities of the kidney, manifested by either:Pathological abnormalities or Markers of kidney damage (including abnormalities in the composition of the blood or urine or abnormalities in imaging tests). Lab Interpretation Abnormal (test code = 18480-1) [facility] [id number] 11:01:00 Test Item Value Reference Range Interpretation Comments Blood Culture-Aerobic No organisms No growth Previo us (test code = 37357-6) isolated prelim inary verified result was Culture In Progress on 03/26/2020 at 0801 CSTPreviou s preliminary verified result was No growth a t 24 hours on 03/27/2020 at 0501 CSTPreviou s preliminary verified result was No growth a t 48 hours on 03/28/2020 at 0501 CSTPreviou s preliminary verified result was No growth a t 72 hours on 03/29/2020 at 0501 [employer] Blood No organisms No growth Previous Culture-Anaerobic isolated preliminar y (test code = 31879-9) verifi ed result was Culture In Progress on 03/26/2020 at 0801 CSTPreviou s preliminary verified result was No growth a t 24 hours on 03/27/2020 at 0501 CSTPreviou s preliminary verified result was No growth a t 48 hours on 03/28/2020 at 0501 CSTPreviou s preliminary verified result was No growth a t 72 hours on 03/29/2020 at 0501 [employer] Lab Interpretation Normal (test code = 65866-4) [facility] [id number] 11:01:00 Test Item Value Reference Range Interpretation Comments Blood Culture-Aerobic No organisms No growth Previo us (test code = 20809-1) isolated prelim inary verified result was Culture In Progress on 03/26/2020 at 0801 CSTPreviou s preliminary verified result was No growth a t 24 hours on 03/27/2020 at 0501 CSTPreviou s preliminary verified result was No growth a t 48 hours on 03/28/2020 at 0501 CSTPreviou s preliminary verified result was No growth a t 72 hours on 03/29/2020 at 0501 [employer] Blood No organisms No growth Previous Culture-Anaerobic isolated preliminar y (test code = 00084-2) verifi ed result was Culture In Progress on 03/26/2020 at 0801 CSTPreviou s preliminary verified result was No growth a t 24 hours on 03/27/2020 at 0501 CSTPreviou s preliminary verified result was No growth a t 48 hours on 03/28/2020 at 0501 CSTPreviou s preliminary verified result was No growth a t 72 hours on 03/29/2020 at 0501 [employer] Lab Interpretation Normal (test code = 75787-4) [facility] GLUCOSE (AUTOMATED)2020-03-31 04:03:00 Test Item Value Reference Range Interpretation Comments POCT GLU (test code = 1629238956) 118 mg/dL 70-110 H Lab Interpretation (test code = Abnormal 93749-4) [facility] GLUCOSE (AUTOMATED)2020-03-30 23:18:00 Test Item Value Reference Range Interpretation Comments POCT GLU (test code = 5773353606) 136 mg/dL 70-110 H Lab Interpretation (test code = Abnormal 56650-1) [facility] GLUCOSE (AUTOMATED)2020-03-30 18:18:00 Test Item Value Reference Range Interpretation Comments POCT GLU (test code = 2840054935) 131 mg/dL 70-110 H Lab Interpretation (test code = Abnormal 59198-9) [facility] GLUCOSE (AUTOMATED)2020-03-30 14:31:00 Test Item Value Reference Range Interpretation Comments POCT GLU (test code = 6680833163) 127 mg/dL 70-110 H Lab Interpretation (test code = Abnormal 68323-6) [facility] WITH [id number] 12:26:00 Test Item Value Reference Range Interpretation Comments WBC (test code = See_Comment H [Automated 6690-2) message] The system which generated this result transmitted reference range : 4.30 - 11.10 10*3/?L. The reference range was not used to interpret this result as normal/abnormal . RBC (test code = See_Comment L [Automated 789-8) message] The system which generated this result transmitted reference range : 3.93 - 5.25 10*6/?L. The reference range was not used to interpret this result as normal/abnormal . HGB (test code = 10.5 g/dL 11.6-15 L 718-7) HCT (test code = 33.4 % 35.7-45.2 L 4544-3) MCV (test code = 87.4 fL 80.6-95.5 787-2) MCH (test code = 27.5 pg 25.9-32.8 785-6) MCHC (test code = 31.4 g/dL 31.6-35.1 L 786-4) RDW-SD (test code = 55.6 fL 39-49.9 H 07083-3) RDW-CV (test code = 17.3 % 12-15.5 H 788-0) PLT (test code = See_Comment H [Automated 777-3) message] The system which generated this result transmitted reference range : 166 - 358 10*3/?L. The reference range was not used to interpret this result as normal/abnormal . MPV (test code = 10.8 fL 9.5-12.9 60880-0) NRBC/100 WBC (test See_Comment [Automat ed code = 1953000223) message] The system which generated this result transmitted reference range : 0.0 - 10.0 /100 WBCs. The reference range was not used to interpret this result as normal/abnormal . NRBC x10^3 (test code <0.01 See_Comment [Auto mated = 5707186305) message] The system which generated this result transmitted reference range : 10*3/?L. The reference range was not used to interpret this result as normal/abnormal . GRAN MAT (NEUT) % 88.7 % (test code = 770-8) IMM GRAN % (test code 6.20 % = 2660673510) LYMPH % (test code = 1.9 % 736-9) MONO % (test code = 3.1 % 5905-5) EOS % (test code = 0.1 % 713-8) BASO % (test code = 0.0 % 706-2) GRAN MAT x10^3(ANC) 68.46 10*3/uL 1.88-7.09 H (test code = 3208839122) IMM GRAN x10^3 (test 4.82 10*3/uL 0-0.06 H code = 9566070429) LYMPH x10^3 (test 1.45 10*3/uL 1.32-3.29 code = 731-0) MONO x10^3 (test code 2.38 10*3/uL 0.33-0.92 H = 742-7) EOS x10^3 (test code 0.06 10*3/uL 0.03-0.39 = 711-2) BASO x10^3 (test code 0.03 10*3/uL 0.01-0.07 = 704-7) SHER CELLS (test code 2+ See_Comment A [Auto mated = 6719-9) message] The system which generated this result transmitted reference range : (none). The reference range was not used to interpret this result as normal/abnormal . BANDS (test code = MARKED INCREASED A 9377761028) Lab Interpretation Abnormal (test code = 66701-7) [facility] METABOLIC PANEL (NA, K, CL, CO2, GLUCOSE, BUN, CREATININE, CA)2020-03-30 12:15:00 Test Item Value Reference Range Interpretation Comments NA (test code = 137 mmol/L 135-145 4665392654) K (test code = 3.7 mmol/L 3.5-5 7106074780) CL (test code = 110 mmol/L 98-108 H 3443639311) CO2 TOTAL (test code = 18 mmol/L 23-31 L 3256966448) AGAP (test code = 2-16 2090765664) BUN (test code = 61 mg/dL 7-23 H 2773494606) GLUCOSE (test code = 112 mg/dL 70-110 H 7707006853) CREATININE (test code = 2.46 mg/dL 0.5-1.04 H 0201558935) CALCIUM (test code = 9.3 mg/dL 8.6-10.6 0632639187) eGFR Calculation mL/min/1.73m2 (Non-) (test code = 1553495864) eGFR Calculation mL/min/1.73m2 () (test code = 0257022428) JACI (test code = JACI) Association of Glomerular Filtration Rate (GFR) and Staging of Kidney Disease* + --+ --+ ------+| GFR (mL/min/1.73 m2) ?| With Kidney Damage ?| ?Without Kidney Damage+ --------+ --------+ +| ?>90 ?| ?Stage one ?| ? Normal ?+ ---+ ---+ -------+| ?60-89 ?| ?Stage two ?| ? Decreased GFR ? + --+ --+ ------+| ?30-59 ?| ?Stage three ?| ? Stage three ? + --+ --+ ------+| ?15-29 ?| ?Stage four ? | ? Stage four ?+ ---+ ---+ -------+| ?<15 (or dialysis) ? ?| ?Stage five ? | ? Stage five ?+ ---+ ---+ -------+ *Each stage assumes the associated GFR level has been in effect for at least three months. ?Stages 1 to 5, with or without kidney disease, indicate chronic kidney disease. Notes: Determination of stages one and two (with eGFR >59mL/min/1.73 m2) requires estimation of kidney damage for at least three months as defined by structural or functional abnormalities of the kidney, manifested by either:Pathological abnormalities or Markers of kidney damage (including abnormalities in the composition of the blood or urine or abnormalities in imaging tests). Lab Interpretation Abnormal (test code = 92924-1) [facility] GLUCOSE (AUTOMATED)2020-03-30 02:56:00 Test Item Value Reference Range Interpretation Comments POCT GLU (test code = 5494509861) 131 mg/dL 70-110 H Lab Interpretation (test code = Abnormal 11538-7) [facility] GLUCOSE (AUTOMATED)2020-03-29 23:58:00 Test Item Value Reference Range Interpretation Comments POCT GLU (test code = 5755609602) 125 mg/dL 70-110 H Lab Interpretation (test code = Abnormal 10975-3) [facility] HEAD WO [id number] 22:42:17 No acute intracranial abnormality. Postprocedural changes of stent and coil embolization of basilararterynoted. Background of advanced microvascular ischemic changes. Remote lacunarinfarcts are notedin the do and right basal ganglia.EXAM: CT HEAD WO CONTRAST HISTORY: Altered mental status (AMS), unclear cause leukocytosis uknownetiology TECHNIQUE: CT of the head was performed without intravenous contrast.Sagittal and coronal reformats were generated. COMPARISON: None. FINDINGS: Postproceduralchanges of the stent and coil embolization of the basilarartery noted. The ventricles and sulci are normal in caliber and configuration. Nohydrocephalus, midline shift or pathological extra- axial fluidcollection.Basal cisterns are unremarkable. 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 Chronic left postcentral gyrusinfarct noted. No acute intracranial hemorrhage or significant mass effect. The arnold-whitematter differentiation is a preserved. The calvarium and skull base are unremarkable. [facility], Radiant Results Inft User - 03/29/2020 4:43 PM CSTEXAM: CT HEAD WO CONTRASTHISTORY: Altered mental status (AMS), unclear cause leukocytosis uknownetiology TECHNIQUE: CTof the head was performed without intravenous contrast.Sagittal and coronal reformats were generated.COMPARISON: None.FINDINGS: Postprocedural changes of the stent and coil embolization of the basilarartery noted.The ventricles and sulci are normal in caliber and configuration. Nohydrocephalus, midline shift or pathological extra-axial fluid collection.Basal cisterns are unremarkable.Remote lacunar in farcts are noted in the do and right basal ganglia.Confluent periventricular and deep white matterhypodensities likelyrepresent microvascular ischemic changes. Chronic left postcentral gyrusinfarct noted.No acute intracranial hemorrhage or significant mass effect. The arnold-whitematter differentiation is a preserved.The calvarium and skull base are unremarkable.IMPRESSIONNo acute intracranial abnormality.Postprocedural changes of stent and coil embolization of basilar arterynoted.Background of advanced microvascular ischemic changes. Remote lacunarinfarcts are noted in the do and right basal ganglia.[facility] GLUCOSE (AUTOMATED)2020-03-29 20:25:00 Test Item Value Reference Range Interpretation Comments POCT GLU (test code = 1697345720) 209 mg/dL 70-110 H Lab Interpretation (test code = Abnormal 93152-6) [facility] [id number] 17:29:00 Test Item Value Reference Range Interpretation Comments URINE CULTURE (test > 100,000 CFU/mL mixed code = 630-4) aerobic organisms - suggests endogenous microbial contamination [facility] GLUCOSE (AUTOMATED)2020-03-29 16:24:00 Test Item Value Reference Range Interpretation Comments POCT GLU (test code = 5727135816) 136 mg/dL 70-110 H Lab Interpretation (test code = Abnormal 75923-3) [facility] (NA, K, CL, CO2, GLUCOSE, BUN, CREATININE, CA)2020-03-29 11:44:00 Test Item Value Reference Range Interpretation Comments NA (test code = 138 mmol/L 135-145 6594748479) K (test code = 3.9 mmol/L 3.5-5 0501826171) CL (test code = 111 mmol/L 98-108 H 2469474000) CO2 TOTAL (test code = 18 mmol/L 23-31 L 1425543714) AGAP (test code = 2-16 1988371112) BUN (test code = 39 mg/dL 7-23 H 8886145636) GLUCOSE (test code = 140 mg/dL 70-110 H 3961327797) CREATININE (test code = 2.38 mg/dL 0.5-1.04 H 8618972853) CALCIUM (test code = 9.1 mg/dL 8.6-10.6 0817058465) eGFR Calculation mL/min/1.73m2 (Non-) (test code = 5280517175) eGFR Calculation mL/min/1.73m2 () (test code = 4821314363) JACI (test code = JACI) Association of Glomerular Filtration Rate (GFR) and Staging of Kidney Disease* + --+ --+ ------+| GFR (mL/min/1.73 m2) ?| With Kidney Damage ?| ?Without Kidney Damage+ --------+ --------+ +| ?>90 ?| ?Stage one ?| ? Normal ?+ ---+ ---+ -------+| ?60-89 ?| ?Stage two ?| ? Decreased GFR ? + --+ --+ ------+| ?30-59 ?| ?Stage three ?| ? Stage three ? + --+ --+ ------+| ?15-29 ?| ?Stage four ? | ? Stage four ?+ ---+ ---+ -------+| ?<15 (or dialysis) ? ?| ?Stage five ? | ? Stage five ?+ ---+ ---+ -------+ *Each stage assumes the associated GFR level has been in effect for at least three months. ?Stages 1 to 5, with or without kidney disease, indicate chronic kidney disease. Notes: Determination of stages one and two (with eGFR >59mL/min/1.73 m2) requires estimation of kidney damage for at least three months as defined by structural or functional abnormalities of the kidney, manifested by either:Pathological abnormalities or Markers of kidney damage (including abnormalities in the composition of the blood or urine or abnormalities in imaging tests). Lab Interpretation Abnormal (test code = 55115-7) [facility] WITH [id number] 11:18:00 Test Item Value Reference Range Interpretation Comments WBC (test code = See_Comment H [Automated 6690-2) message] The system which generated this result transmitted reference range : 4.30 - 11.10 10*3/?L. The reference range was not used to interpret this result as normal/abnormal . RBC (test code = See_Comment L [Automated 789-8) message] The system which generated this result transmitted reference range : 3.93 - 5.25 10*6/?L. The reference range was not used to interpret this result as normal/abnormal . HGB (test code = 10.7 g/dL 11.6-15 L 718-7) HCT (test code = 34.2 % 35.7-45.2 L 4544-3) MCV (test code = 87.5 fL 80.6-95.5 787-2) MCH (test code = 27.4 pg 25.9-32.8 785-6) MCHC (test code = 31.3 g/dL 31.6-35.1 L 786-4) RDW-SD (test code = 55.5 fL 39-49.9 H 32102-3) RDW-CV (test code = 17.2 % 12-15.5 H 788-0) PLT (test code = See_Comment H [Automated 777-3) message] The system which generated this result transmitted reference range : 166 - 358 10*3/?L. The reference range was not used to interpret this result as normal/abnormal . MPV (test code = 10.8 fL 9.5-12.9 83234-9) NRBC/100 WBC (test See_Comment [Automat ed code = 9662893736) message] The system which generated this result transmitted reference range : 0.0 - 10.0 /100 WBCs. The reference range was not used to interpret this result as normal/abnormal . NRBC x10^3 (test code <0.01 See_Comment [Auto mated = 7686552037) message] The system which generated this result transmitted reference range : 10*3/?L. The reference range was not used to interpret this result as normal/abnormal . GRAN MAT (NEUT) % 86.4 % (test code = 770-8) IMM GRAN % (test code 8.10 % = 1787436650) LYMPH % (test code = 1.4 % 736-9) MONO % (test code = 3.7 % 5905-5) EOS % (test code = 0.0 % 713-8) BASO % (test code = 0.4 % 706-2) GRAN MAT x10^3(ANC) 61.96 10*3/uL 1.88-7.09 H (test code = 1083409177) IMM GRAN x10^3 (test 5.84 10*3/uL 0-0.06 H code = 1531149174) LYMPH x10^3 (test 1.01 10*3/uL 1.32-3.29 L code = 731-0) MONO x10^3 (test code 2.66 10*3/uL 0.33-0.92 H = 742-7) EOS x10^3 (test code <0.03 0.03-0.39 L = 711-2) BASO x10^3 (test code 0.30 10*3/uL 0.01-0.07 H = 704-7) SHER CELLS (test code 2+ See_Comment A [Auto mated = 3307-6) message] The system which generated this result transmitted reference range : (none). The reference range was not used to interpret this result as normal/abnormal . BANDS (test code = MARKED INCREASED A 0807769778) Lab Interpretation Abnormal (test code = 67275-0) [facility]2020-[facility]-29 03:46:00 Test Item Value Reference Range Interpretation Comments POCT GLU (test code = 3858538025) 144 mg/dL 70-110 H Lab Interpretation (test code = Abnormal 94476-1) [facility]2020[facility] 01:53:00 Test Item Value Reference Range Interpretation Comments APPEARANCE (test code = Cloudy Clear A 8020630414) COLOR (test code = Sarai Yellow A 3225802678) PH (test code = 4.8-8.0 3596938391) SP GRAVITY (test code = 1.003-1.030 4688035164) GLU U QUAL (test code = Normal Normal 0344262872) BLOOD (test code = 1+ Negative A 3322398615) KETONES (test code = Negative Negative 3411050885) PROTEIN (test code = 100 mg/dL Negative A 2887-8) UROBILIN (test code = Normal Normal 8771339796) BILIRUBIN (test code = Negative Negative 2074238223) NITRITE (test code = Negative Negative 6202060572) LEUK TRENA (test code = 250/uL Negative A 6487917204) RBC/HPF (test code = See_Comment H [Autom ated message] 6882618253) The system [employer]im[employer] generated this result transmit shira reference range : 0 - 3 HPF. The refe rence range was not u sed to interpret th is result as normal/abnormal . WBC/HPF (test code = See_Comment H [Autom ated message] 4132890401) The system [employer]im[employer] generated this result transmit shira reference range : 0 - 5 HPF. The refe rence range was not u sed to interpret th is result as normal/abnormal . BACTERIA (test code = Few Negative A 5872463581) AMORPHOUS (test code = Rare HPF 3961188302) SQ EPITH (test code = See_Comment H [Auto mated message] 3626011777) The system [employer]im[employer] generated this result transmit shira reference range : <=2 HPF. The refere nce range was not u sed to interpret th is result as normal/abnormal . WBC CLUMPS (test code = See_Comment H [Au tomated message] 2863401555) The system [employer]im[employer] generated this result transmit shira reference range : <=1 HPF. The refere nce range was not u sed to interpret th is result as normal/abnormal . Lab Interpretation (test Abnormal code = 70883-5) [facility] 1 [id number] 00:54:31 - ? No acute cardiopulmonary disease. Preliminary Report Dictated by Resident: Norah Salazar MD., have reviewed this study and agree with theove report.EXAM: XR CHEST 1 VW 03/28/2020 2:20 PM. HISTORY: 80 years-old Female with persistent leukocytosis of unknownetiology, rule out pulmonary infectious process . COMPARISON: none. TECHNIQUE: Frontal chest radiograph. FINDINGS: The lungs are clear. There is no focal consolidation, pleural effusion orpneumothorax. The cardiomediastinal silhouette is normal in size. Calcified aortic knob. No acute osseous abnormalities. Degenerative changes of the thoracic spine. [facility], Radiant Results Inft User - 03/28/2020 6:55 PM CSTEXAM: XR CHEST 1 VW 03/28/2020 2:20 PM.HISTORY: 80 years-old Female with persistent leukocytosis of unknownetiology, rule out pulmonary infectious process .COMPARISON: none.TECHNIQUE: Frontal chest radiograph.FINDINGS:The lungs are clear. There is no focal consolidation, pleural effusion orpneumothorax.The cardiomediastinal silhouette is normal in size. Calcified aortic knob.No acute osseous abnormalities. Degenerative changes of the thoracic spine.IMPRESSION- No acute cardiopulmonary disease.Preliminary Report Dictated by Resident: Regina Mckeon, Norah Koch MD., have reviewed this study and agree with theabove report.[facility] 2020-03-28 18:37:00INTERVAL INCREASE IN LEUKOCYTE COUNT. SUGGEST INFECTIOUS DISEASE CONSULT.[facility]MOD BARIUM SWALLOW, (COOKIE) 2020-03-28 17:25:271. ?Penetration with thin barium. 2. ?Patient coughing with most swallows. However, no aspiration was noted. 3. ?Patient began vomiting and examination was terminated early 4. ?Please see separate Speech Pathology report for recommendations andadditional findings. Preliminary Report Dictated by Resident: Rachael Barnes I, Dale Quinn MD., have reviewed this study and agree with the abovereport.FL MODIFIED BARIUM SWALLOW HISTORY: 80 years-old; Female; progressive dysphagia from solids to liquidswith new onset leukocytosis TECHNIQUE: A video swallowing exam with fluoroscopy was performed inconjunction with Speech Pathology who administered multiple consistenciesof barium. Fluoroscopy was performed under the supervision of aradiologist. COMPARISON: None FINDINGS: Penetration is seen with thinbarium. Although patient was coughing withmost of the swallows, no aspiration was noted. Patient felt nauseous andstarted vomiting; the exam was terminated early. Straightening of the normal cervical lordotic curvature. [facility], Radiant Results Inft User - 03/28/2020 11:26 AM CSTFL MODIFIED BARIUM SWALLOWHISTORY: 80 years-old; Female; progressive dysphagia from solids to liquidswith new onset leukocytosis TECHNIQUE: A video swallowing exam with fluoroscopy was performed inconjunction with Speech Pathology who administered multiple consistenciesof barium. Fluoroscopy was performed under the supervisionof aradiologist. COMPARISON: NoneFINDINGS:Penetration is seen with thin barium. Although patient wascoughing withmost of the swallows, no aspiration was noted. Patient felt nauseous andstarted vomiting; the exam was terminated early.Straightening of the normal cervical lordotic curvature.IMPRESSION1. Penetration with thin barium.2. Patient coughing with most swallows. However, no aspiration was noted.3. Patient began vomiting and examination was terminated early4. Please see separate Speech Pathology report for recommendations andadditional findings.Preliminary Report Dictated by Resident: Rachael Lorenzo, Dale Quinn MD., have reviewed this study and agree with the abovereport.[facility]IUM2020-12-17 14:31:00 Test Item Value Reference Range Interpretation Comments MAGNESIUM (test code = 2348961579) 1.6 mg/dL 1.7-2.4 L Lab Interpretation (test code = Abnormal 87303-7) [facility]URINE [id number] 14:22:00 Test Item Value Reference Range Interpretation Comments URINE CULTURE 10,000-100,000 Previous pre liminary (test code = CFU/mL Stephanie verified resu lt was 630-4) glabrata Yeast on 2019 at 1416 [employer] [facility]BAS[facility] METABOLIC PANEL (NA, K, CL, CO2, GLUCOSE, BUN, CREATININE, CA)2020-03-28 12:51:00 Test Item Value Reference Range Interpretation Comments NA (test code = 139 mmol/L 135-145 9490664534) K (test code = 3.1 mmol/L 3.5-5 L 0143616114) CL (test code = 111 mmol/L 98-108 H 3664582808) CO2 TOTAL (test code = 18 mmol/L 23-31 L 1638717968) AGAP (test code = 2-16 0708601066) BUN (test code = 24 mg/dL 7-23 H 7609693677) GLUCOSE (test code = 182 mg/dL 70-110 H 4212363503) CREATININE (test code = 1.41 mg/dL 0.5-1.04 H 4411598537) CALCIUM (test code = 8.8 mg/dL 8.6-10.6 2989545778) eGFR Calculation mL/min/1.73m2 (Non-) (test code = 1021802888) eGFR Calculation mL/min/1.73m2 () (test code = 4567864032) JACI (test code = JACI) Association of Glomerular Filtration Rate (GFR) and Staging of Kidney Disease* + --+ --+ ------+| GFR (mL/min/1.73 m2) ?| With Kidney Damage ?| ?Without Kidney Damage+ --------+ --------+ +| ?>90 ?| ?Stage one ?| ? Normal ?+ ---+ ---+ -------+| ?60-89 ?| ?Stage two ?| ? Decreased GFR ? + --+ --+ ------+| ?30-59 ?| ?Stage three ?| ? Stage three ? + --+ --+ ------+| ?15-29 ?| ?Stage four ? | ? Stage four ?+ ---+ ---+ -------+| ?<15 (or dialysis) ? ?| ?Stage five ? | ? Stage five ?+ ---+ ---+ -------+ *Each stage assumes the associated GFR level has been in effect for at least three months. ?Stages 1 to 5, with or without kidney disease, indicate chronic kidney disease. Notes: Determination of stages one and two (with eGFR >59mL/min/1.73 m2) requires estimation of kidney damage for at least three months as defined by structural or functional abnormalities of the kidney, manifested by either:Pathological abnormalities or Markers of kidney damage (including abnormalities in the composition of the blood or urine or abnormalities in imaging tests). Lab Interpretation Abnormal (test code = 97019-0) [facility] WITH [id number] 12:50:00 Test Item Value Reference Range Interpretation Comments WBC (test code = See_Comment H [Automated 2913-2) message] The system which generated this result transmit shira reference range : 4.30 - 11.10 10*3/?L. The reference range was not used to interpret this result as normal/abnormal . RBC (test code = See_Comment [Automated 712-2) message] The system which generated this result transmit shira reference range : 3.93 - 5.25 10*6/?L. The reference range was not used to interpret this result as normal/abnormal . HGB (test code = 10.9 g/dL 11.6-15 L 718-7) HCT (test code = 34.6 % 35.7-45.2 L 4544-3) MCV (test code = 86.7 fL 80.6-95.5 787-2) MCH (test code = 27.3 pg 25.9-32.8 785-6) MCHC (test code = 31.5 g/dL 31.6-35.1 L 786-4) RDW-SD (test code = 52.7 fL 39-49.9 H 69279-8) RDW-CV (test code = 16.6 % 12-15.5 H 788-0) PLT (test code = See_Comment H [Automated 777-3) message] The system which generated this result transmit shira reference range : 166 - 358 10*3/ ?L. The reference range was not u sed to interpret th is result as normal/abnormal . MPV (test code = 10.4 fL 9.5-12.9 63651-6) NRBC/100 WBC (test See_Comment [Automat ed code = 3298059192) message] The system which generated this result transmit shira reference range : 0.0 - 10.0 /100 WBCs. The reference range was not used to interpret this result as normal/abnormal . NRBC x10^3 (test code <0.01 See_Comment [Auto mated = 7969618961) message] The system which generated this result transmit shira reference range : 10*3/?L. The reference range was not used to interpret this result as normal/abnormal . GRAN MAT (NEUT) % 89.7 % (test code = 770-8) IMM GRAN % (test code 5.10 % = 9206115368) LYMPH % (test code = 1.0 % 736-9) MONO % (test code = 4.1 % 5905-5) EOS % (test code = 0.0 % 713-8) BASO % (test code = 0.1 % 706-2) GRAN MAT x10^3(ANC) 57.33 10*3/uL 1.88-7.09 H (test code = 1521357597) IMM GRAN x10^3 (test 3.27 10*3/uL 0-0.06 H code = 1830638040) LYMPH x10^3 (test code 0.65 10*3/uL 1.32-3.29 L = 731-0) MONO x10^3 (test code 2.60 10*3/uL 0.33-0.92 H = 742-7) EOS x10^3 (test code = <0.03 0.03-0.39 L 711-2) BASO x10^3 (test code 0.05 10*3/uL 0.01-0.07 = 704-7) BANDS (test code = Increased A 0074490010) Lab Interpretation Abnormal (test code = 27328-3) [facility]2020-03-28 04:43:00 Test Item Value Reference Range Interpretation Comments POCT GLU (test code = 7928429700) 152 mg/dL 70-110 H Lab Interpretation (test code = Abnormal 21641-0) [facility] WITH [id number] 01:21:00 Test Item Value Reference Range Interpretation Comments WBC (test code = See_Comment H [Automated 6690-2) message] The system which generated this result transmit shira reference range : 4.30 - 11.10 10*3/?L. The reference range was not used to interpret this result as normal/abnormal . RBC (test code = See_Comment [Automated 789-8) message] The system which generated this result transmit shira reference range : 3.93 - 5.25 10*6/?L. The reference range was not used to interpret this result as normal/abnormal . HGB (test code = 11.4 g/dL 11.6-15 L 718-7) HCT (test code = 36.8 % 35.7-45.2 4544-3) MCV (test code = 87.6 fL 80.6-95.5 787-2) MCH (test code = 27.1 pg 25.9-32.8 785-6) MCHC (test code = 31.0 g/dL 31.6-35.1 L 786-4) RDW-SD (test code = 52.9 fL 39-49.9 H 23300-9) RDW-CV (test code = 16.7 % 12-15.5 H 788-0) PLT (test code = See_Comment H [Automated 777-3) message] The system which generated this result transmit shira reference range : 166 - 358 10*3/ ?L. The reference range was not u sed to interpret th is result as normal/abnormal . MPV (test code = 10.5 fL 9.5-12.9 89929-3) NRBC/100 WBC (test See_Comment [Automat ed code = 7620281727) message] The system which generated this result transmit shira reference range : 0.0 - 10.0 /100 WBCs. The reference range was not used to interpret this result as normal/abnormal . NRBC x10^3 (test code <0.01 See_Comment [Auto mated = 4208587361) message] The system which generated this result transmit shira reference range : 10*3/?L. The reference range was not used to interpret this result as normal/abnormal . GRAN MAT (NEUT) % 91.5 % (test code = 770-8) IMM GRAN % (test code 1.80 % = 6141140401) LYMPH % (test code = 2.5 % 736-9) MONO % (test code = 3.9 % 5905-5) EOS % (test code = 0.0 % 713-8) BASO % (test code = 0.3 % 706-2) GRAN MAT x10^3(ANC) 39.53 10*3/uL 1.88-7.09 H (test code = 6192029380) IMM GRAN x10^3 (test 0.78 10*3/uL 0-0.06 H code = 1755930127) LYMPH x10^3 (test code 1.10 10*3/uL 1.32-3.29 L = 731-0) MONO x10^3 (test code 1.67 10*3/uL 0.33-0.92 H = 742-7) EOS x10^3 (test code = <0.03 0.03-0.39 L 711-2) BASO x10^3 (test code 0.13 10*3/uL 0.01-0.07 H = 704-7) Lab Interpretation Abnormal (test code = 55058-2) [facility] METABOLIC PANEL (NA, K, CL, CO2, GLUCOSE, BUN, CREATININE, CA)2020-03-28 00:00:00 Test Item Value Reference Range Interpretation Comments NA (test code = 139 mmol/L 135-145 7074767431) K (test code = 3.3 mmol/L 3.5-5 L 7211490064) CL (test code = 111 mmol/L 98-108 H 5063924331) CO2 TOTAL (test code = 21 mmol/L 23-31 L 3400066307) AGAP (test code = 2-16 4451395333) BUN (test code = 18 mg/dL 7-23 9218020272) GLUCOSE (test code = 152 mg/dL 70-110 H 2576791249) CREATININE (test code = 1.15 mg/dL 0.5-1.04 H 8830393255) CALCIUM (test code = 9.0 mg/dL 8.6-10.6 0806941645) eGFR Calculation mL/min/1.73m2 (Non-) (test code = 1842388259) eGFR Calculation mL/min/1.73m2 () (test code = 8259951342) JACI (test code = JACI) Association of Glomerular Filtration Rate (GFR) and Staging of Kidney Disease* + --+ --+ ------+| GFR (mL/min/1.73 m2) ?| With Kidney Damage ?| ?Without Kidney Damage+ --------+ --------+ +| ?>90 ?| ?Stage one ?| ? Normal ?+ ---+ ---+ -------+| ?60-89 ?| ?Stage two ?| ? Decreased GFR ? + --+ --+ ------+| ?30-59 ?| ?Stage three ?| ? Stage three ? + --+ --+ ------+| ?15-29 ?| ?Stage four ? | ? Stage four ?+ ---+ ---+ -------+| ?<15 (or dialysis) ? ?| ?Stage five ? | ? Stage five ?+ ---+ ---+ -------+ *Each stage assumes the associated GFR level has been in effect for at least three months. ?Stages 1 to 5, with or without kidney disease, indicate chronic kidney disease. Notes: Determination of stages one and two (with eGFR >59mL/min/1.73 m2) requires estimation of kidney damage for at least three months as defined by structural or functional abnormalities of the kidney, manifested by either:Pathological abnormalities or Markers of kidney damage (including abnormalities in the composition of the blood or urine or abnormalities in imaging tests). Lab Interpretation Abnormal (test code = 65253-4) [facility] GLUCOSE (AUTOMATED)2020-03-27 18:48:00 Test Item Value Reference Range Interpretation Comments POCT GLU (test code = 0099222831) 152 mg/dL 70-110 H Lab Interpretation (test code = Abnormal 81149-1) [facility] GLUCOSE (AUTOMATED)2020-03-27 15:53:00 Test Item Value Reference Range Interpretation Comments POCT GLU (test code = 5337679987) 139 mg/dL 70-110 H Lab Interpretation (test code = Abnormal 97128-2) [facility] GLUCOSE (AUTOMATED)2020-03-27 04:08:00 Test Item Value Reference Range Interpretation Comments POCT GLU (test code = 9417798916) 122 mg/dL 70-110 H Lab Interpretation (test code = Abnormal 47841-8) [facility] COVID [id number] 03:51:00COVID DMT InterpretationInterpretation/Recommendations: Molecular NAAT Tests for Active Infection with the SARS-CoV-2 Virus: This patient has a history of testing negative on multiple occasions for dnfBLPK-NuN-0 virus that causes COVID-19 illness, with no prior history of a positive result. The current test results are also negative. This most likely indicates that the patient does not have an active infection with the SARS-CoV-2 virus, especially if all of these tests coincide with the patient's current presentation. However, infection is not completely ruled out as the false negative rate for molecular NAAT testing using a nasopharyngeal sample can be up to 30%, mostly dependent on the timing of sample collection in relation to illness onset and any deficiencies in sampling techniques. If the patient continues to have persistent or worsening symptoms concerning for COVID-19 illness, a repeat NAAT test (PCR, Rapid ID Now, etc.) should be performed, at which time the SARS-CoV-2 virus - if present - may have reached a detectable viral load (usually peaking by the end of the first week of symptoms). Tests for IgM and/or IgG Antibodies to SARS-CoV-2 Virus: Testing for IgM and IgG antibodies 1-3 weeks after illness onset will indicate whether the patient has produced antibodies to the virus. At this time, it is not known if the production of antibodies - specifically IgG antibodies - indicates whether the patient is immune to future infections with the SARS-CoV-2 virus. Interpretation Result Comments: These interpretation comments are based upon aggregate COVID-19 test results pooled from [facility]. They apply to the following tests offered at [facility] and assume the acceptable specimen type(s) were used: A. Tests for the Identification of SARS-CoV-2 RNA (Molecular NAAT Tests): ?- SARS-CoV-2 PCR assays including Sidney Aptima, Sidney Fusion, Aguilar RealTime, and Smappo Xpert Xpress. ?- SARS-CoV-2 Rapid IDNOW by the ID NOW assay. ? B. Tests for the Identification of SARS-CoV-2 Antibodies: ?- Chemi luminescent immunoassays including Access SARS-CoV-2 IgM (DXI 600), [place] IlluminationS Ndzs-SITS-AqL-2 IgG (Vitros 5600 and Vitros 3600), and Aguilar SARS-CoV-2 IgG (SEARCH PLANNER I System). These interpretations are autopopulated into [facility] based on computerized algorithms matching an interpretation code to the patient's set of test results, and a clinical pathologist evaluates the comments for accuracy. However, these comments do not consider testing a patient may have had outside of the [facility] system. If results for COVID-19 infection continue to be negative in the context of a suspected viral respiratory illness,it is possible the patient may have an infection with another respiratory virus. Influenza testing and a respiratory pathogen panel if clinically indicated may be beneficial in this setting. If there continues to be a high degree of clinical suspicion for COVID- 19 illness despite multiple negative tests on nasopharyngeal specimens, then it may be necessary to test the patient for the SARS-CoV-2 virususing lower respiratory tract samples (such as sputum, bronchoalveolar lavage fluid (BAL), tracheal aspirate, etc.). ? [facility] LABORATORY SERVICESCOVID RmubjtmEAXQ-BvR-4 NAAT (no units) ? ? Date ? Value ? 01/15/2020 ? Not Detected ? ? ? 11/16/2019 ?Not Detected ? SARS-CoV-2 Rapid ID NOW (no units) ? ? Date ? Value ? 03/26/2020 ? Not Detected ? ? ? 01/22/2020 ? Not Detected ? [facility]2020-03-26 23:53:00 Test Item Value Reference Range Interpretation Comments POCT GLU (test code = 3089663533) 128 mg/dL 70-110 H Lab Interpretation (test code = Abnormal 52713-3) [facility] NortheastType and Screen - ONCE [id number] 21:12:59 Test Item Value Reference Range Interpretation Comments ABO & RH (test code A POSITIVE Performe d at [facility] = 20) Laboratory Serv [facility] [facility] [address]Xozt Free: [phone] A No. [id number] IAT (test code = Negative Performed a t [facility] 1185) Laboratory Serv [facility] [facility] [address]Vtjo Free: [phone] A No. [id number] [facility] NortheastC-REACTIVE [id number] 19:43:00 Test Item Value Reference Range Interpretation Comments CRP (test code = 1473095504) 1.6 mg/dL <0.8 H Lab Interpretation (test code = Abnormal 46521-8) [facility] GLUCOSE (AUTOMATED)2020-03-26 19:29:00 Test Item Value Reference Range Interpretation Comments POCT GLU (test code = 1121938394) 138 mg/dL 70-110 H Lab Interpretation (test code = Abnormal 57232-5) [facility] NortheastDIFF CONSULT [id number] 18:37:00 LEUKOCYTOSIS WITH ABSOLUTE NEUTROPHILIA INCLUDING TOXIC NEUTROPHILS, REACTIVE LYMPHOCYTES AND ABSOLUTE REACTIVE MONOCYTOSIS SUGGESTIVE OF SYSTEMIC INFECTION/INFLAMMATION. NORMOCYTIC NORMOCHROMIC ANEMIAWITH ANISOPOIKILOCYTOSIS INCLUDING SHER CELLS, POLYCHROMASIA, OVALOCYTES AND RARE SPHEROCYTES, SUGGESTIVE OF ANEMIA OF CHRONIC DISEASE AND EARLY IRON DEFICIENCY. ? THROMBOCYTOSIS WITH LARGE FORMS, LIKELY TO BE REACTIVE.[facility]PO[facility]2020-03-26 15:14:00 Test Item Value Reference Range Interpretation Comments POCT GLU (test code = 9452085336) 123 mg/dL 70-110 H Lab Interpretation (test code = Abnormal 27402-1) [facility] NortheastVITAMIN B12, [id number] 14:58:00 Test Item Value Reference Range Interpretation Comments VIT B12 (test code = 734 pg/mL 240-930 5794769646) JACI (test code = JACI) Biotin has been reported to cause a positive bias, interpret results relative to patient's use of biotin. Lab Interpretation (test Normal code = 56866-8) [facility] NortheastFOLATE2020-12-15 14:58:00 Test Item Value Reference Range Interpretation Comments FOLATE SER (test code = 10.4 ng/mL 3-20 7599709411) Lab Interpretation (test code = Normal 67965-7) [facility] NortheastSEDIMENTATION [id number] 13:25:00 Test Item Value Reference Range Interpretation Comments ESR (test code = See_Comment H [Automated message] 9129284149) The system [employer] generated this result transmitted ref erence range: 0 - 20 m m/HR. The reference r louise was not used to interpret this result as normal/abnor mal. Lab Interpretation (test Abnormal code = 77706-4) [facility] NortheastTHYROID STIMULATING [id number] 13:21:00 Test Item Value Reference Range Interpretation Comments TSH (test code = See_Comment [Automated message] 6025734483) The system [employer] generated this result transmitted ref erence range: 0.45 - 4 .70 mIU/L. The refe rence range was not u sed to interpret this result as normal/abnor mal. Lab Interpretation (test Normal code = 51964-9) [facility] METABOLIC PANEL (NA, K, CL, CO2, GLUCOSE, BUN, CREATININE, CA)2020-03-26 13:10:00 Test Item Value Reference Range Interpretation Comments NA (test code = 137 mmol/L 135-145 9197834023) K (test code = 3.3 mmol/L 3.5-5 L 1588146045) CL (test code = 109 mmol/L 98-108 H 8223654133) CO2 TOTAL (test code = 21 mmol/L 23-31 L 5039430687) AGAP (test code = 2-16 3196955111) BUN (test code = 16 mg/dL 7-23 8540955745) GLUCOSE (test code = 112 mg/dL 70-110 H 1190651717) CREATININE (test code = 1.03 mg/dL 0.5-1.04 6428785102) CALCIUM (test code = 8.9 mg/dL 8.6-10.6 9064606543) eGFR Calculation mL/min/1.73m2 (Non-) (test code = 9892394214) eGFR Calculation mL/min/1.73m2 () (test code = 2714734231) JACI (test code = JACI) Association of Glomerular Filtration Rate (GFR) and Staging of Kidney Disease* + --+ --+ ------+| GFR (mL/min/1.73 m2) ?| With Kidney Damage ?| ?Without Kidney Damage+ --------+ --------+ +| ?>90 ?| ?Stage one ?| ? Normal ?+ ---+ ---+ -------+| ?60-89 ?| ?Stage two ?| ? Decreased GFR ? + --+ --+ ------+| ?30-59 ?| ?Stage three ?| ? Stage three ? + --+ --+ ------+| ?15-29 ?| ?Stage four ? | ? Stage four ?+ ---+ ---+ -------+| ?<15 (or dialysis) ? ?| ?Stage five ? | ? Stage five ?+ ---+ ---+ -------+ *Each stage assumes the associated GFR level has been in effect for at least three months. ?Stages 1 to 5, with or without kidney disease, indicate chronic kidney disease. Notes: Determination of stages one and two (with eGFR >59mL/min/1.73 m2) requires estimation of kidney damage for at least three months as defined by structural or functional abnormalities of the kidney, manifested by either:Pathological abnormalities or Markers of kidney damage (including abnormalities in the composition of the blood or urine or abnormalities in imaging tests). Lab Interpretation Abnormal (test code = 17575-7) [facility] (ALB,T.PRO,BILI T,BU/BC,ALT,AST,ALK PHOS)2020-03-26 12:47:00 Test Item Value Reference Range Interpretation Comments TOTAL BILI (test code = 6507220748) 0.4 mg/dL 0.1-1.1 BILI UNCON (test code = 0581241959) 0.3 mg/dL 0.1-1.1 BILI CONJ (test code = 6847237751) 0.0 mg/dL 0-0.3 T PROTEIN (test code = 8582598921) 6.6 g/dL 6.3-8.2 ALBUMIN (test code = 1586395646) 2.9 g/dL 3.5-5 L ALK PHOS (test code = 5412693544) 185 U/L 34-122 H ALTv (test code = 1742-6) 25 U/L 5-35 AST(SGOT) (test code = 5396812895) 44 U/L 13-40 H Lab Interpretation (test code = Abnormal 78367-1) [facility] 12[facility]47:00 Test Item Value Reference Range Interpretation Comments MAGNESIUM (test code = 3865761061) 1.8 mg/dL 1.7-2.4 Lab Interpretation (test code = Normal 80685-1) [facility] [id number] 12:47:00 Test Item Value Reference Range Interpretation Comments URIC ACID (test code = 9825561781) 4.9 mg/dL 2.9-6 Lab Interpretation (test code = Normal 14335-3) [facility]GLOB[facility] (A1C)2020-03-26 12:34:00 Test Item Value Reference Range Interpretation Comments HGB A1C (test code = 4548-4) 5.8 % 4-6 Lab Interpretation (test code = Normal 49871-8) [facility]2020-[facility]-15 12:34:00 Test Item Value Reference Range Interpretation Comments APPEARANCE (test code = Turbid Clear A 9428728657) COLOR (test code = Yellow Yellow 9600998367) PH (test code = 4.8-8.0 3566613359) SP GRAVITY (test code = 1.003-1.030 5993605854) GLU U QUAL (test code = Normal Normal 4102652710) BLOOD (test code = 1+ Negative A 4604569987) KETONES (test code = Negative Negative 1832324063) PROTEIN (test code = 100 mg/dL Negative A 2887-8) UROBILIN (test code = Normal Normal 5727760649) BILIRUBIN (test code = Negative Negative 2284244249) NITRITE (test code = Negative Negative 9276177683) LEUK TRENA (test code = 500/uL Negative A 2761184412) RBC/HPF (test code = See_Comment H [Autom ated message] 0749877567) The system [employer] generated this result transmit shira reference range : 0 - 3 HPF. The refe rence range was not u sed to interpret th is result as normal/abnormal . WBC/HPF (test code = >182 See_Comment H [Autom ated message] 2741955639) The system [employer] generated this result transmit shira reference range : 0 - 5 HPF. The refe rence range was not u sed to interpret th is result as normal/abnormal . BACTERIA (test code = Few Negative A 7362749918) Lab Interpretation (test Abnormal code = 10561-7) [facility] [id number] 12:32:00 Test Item Value Reference Range Interpretation Comments WBC (test code = See_Comment H [Automated 6690-2) message] The system which generated this result transmit shira reference range : 4.30 - 11.10 10*3/?L. The reference range was not used to interpret this result as normal/abnormal . RBC (test code = See_Comment L [Automated 789-8) message] The system which generated this result transmit shira reference range : 3.93 - 5.25 10*6/?L. The reference range was not used to interpret this result as normal/abnormal . HGB (test code = 10.7 g/dL 11.6-15 L 718-7) HCT (test code = 34.2 % 35.7-45.2 L 4544-3) MCV (test code = 87.5 fL 80.6-95.5 787-2) MCH (test code = 27.4 pg 25.9-32.8 785-6) MCHC (test code = 31.3 g/dL 31.6-35.1 L 786-4) RDW-SD (test code = 51.5 fL 39-49.9 H 75583-1) RDW-CV (test code = 16.1 % 12-15.5 H 788-0) PLT (test code = See_Comment H [Automated 777-3) message] The system which generated this result transmit shira reference range : 166 - 358 10*3/ ?L. The reference range was not u sed to interpret th is result as normal/abnormal . MPV (test code = 10.3 fL 9.5-12.9 45560-1) NRBC/100 WBC (test See_Comment [Automat ed code = 6033013122) message] The system which generated this result transmit shira reference range : 0.0 - 10.0 /100 WBCs. The reference range was not used to interpret this result as normal/abnormal . NRBC x10^3 (test code <0.01 See_Comment [Auto mated = 8886255235) message] The system which generated this result transmit shira reference range : 10*3/?L. The reference range was not used to interpret this result as normal/abnormal . GRAN MAT (NEUT) % 79.3 % (test code = 770-8) IMM GRAN % (test code 1.10 % = 5531779436) LYMPH % (test code = 8.7 % 736-9) MONO % (test code = 8.0 % 5905-5) EOS % (test code = 2.4 % 713-8) BASO % (test code = 0.5 % 706-2) GRAN MAT x10^3(ANC) 13.49 10*3/uL 1.88-7.09 H (test code = 5145377495) IMM GRAN x10^3 (test 0.19 10*3/uL 0-0.06 H code = 8161969902) LYMPH x10^3 (test code 1.49 10*3/uL 1.32-3.29 = 731-0) MONO x10^3 (test code 1.37 10*3/uL 0.33-0.92 H = 742-7) EOS x10^3 (test code = 0.41 10*3/uL 0.03-0.39 H 711-2) BASO x10^3 (test code 0.08 10*3/uL 0.01-0.07 H = 704-7) Lab Interpretation Abnormal (test code = 26330-2) [facility]PROT[facility] / [id number] 11:52:00 Test Item Value Reference Range Interpretation Comments PROTIME PATIENT (test See_Comment H [Auto mated message] code = 5964-2) The system [employer] generated this result transmitted ref erence range: 10.1 - 1 2.6 Seconds. The reference range was not used to int erpret this result as normal/abnormal . INR (test code = 6301-6) Nor mal INR <1.1; Warfarin Therap eutic range 2.0 to 3. 0 or 2.5 to 3.5, dep ending upon the indica tions. Lab Interpretation (test Abnormal code = 17648-3) [facility] THRM[facility]AS [id number] 11:52:00 Test Item Value Reference Range Interpretation Comments APTT Patient (test code See_Comment L [Au tomated message] = 3173-2) The system [employer] generated this result transmitted ref erence range: 26 - 36 Seconds. The reference range was not used to int erpret this result as normal/abnormal . Lab Interpretation (test Abnormal code = 36290-5) [facility] (ID NOW RAPID TESTING)2020-03-26 10:25:00 Test Item Value Reference Range Interpretation Comments SARS-CoV-2 Rapid ID NOW Not Detected Not Detected (test code = 91766-0) JACI (test code = JACI) ID NOW COVID-19 Assay is an isothermal nucleic acid amplification test intended for the qualitative detection of nucleic acid from SARS-CoV-2 viral RNA in nasopharyngeal (INNER DIAMETER GRINDER TOOL) specimens. It is used under Emergency Use Authorization (EUA) by FDA. The limit of detection (LOD) of the assay is 125 Genome Equivalents/mL. A positive result is indicative of the presence of SARS-CoV-2 RNA. ?Clinical correlation with patient history and other diagnostic information is necessary to determine patient infection status. A negative (Not Detected) result does not preclude SARS-CoV-2 infection. In patients with clinical symptoms and other tests that are consistent with SARS-CoV-2 infection, negative results should be treated as presumptive negative and a new specimen should be tested with alternative PCR molecular test. Invalid: Please collect a new specimen for repeat patient testing if clinically indicated. 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 Examination:1 Cerebral angiography 2 right vertebral artery origin stenting Date of surgery January 23, 2020 Operators: Dr. Khai Carrasco Indication: Right vertebral artery origin stenosis Consent: The patient was given a full and complete explanation of the procedureincluding the risks, benefits, and possible complications which include butare not limited to vessel injury, vessel rupture, stroke, infection, comaand , and may include additional procedures. ?Patient understood andwished to proceed. Anesthesia: Conscious sedation and local infiltration of the right wrist usingsubcutaneous and subcuticular injection of 1% lidocaine. Procedure: The patient was brought into the biplane high resolution angiography suiteand placed supine on the table. ?After prepping and draping both femoralregions in the usual sterile fashion, a 21-gauge Cook micro puncture needlewas used to puncture the femoral artery and after briskreturn of ?arterialblood, a 0.018 inch wire was threaded via the needle, after the needle waswithdrawn a 6-Ku[place]i vascular sheath was then advanced over the wire andconnected to a pressurized arterial saline bag infusing 4 units heparin/ML. A 5 [place]i Weaver 2 catheter, ?was then advanced over an 0.035 inch TerumoGlidewire was used to select the following arteries followed by biplaneimage acquisition of the same: Vessels catheterized: - Right Common Carotid Artery ?- Right Vertebral Artery - Left Co mmon Carotid Artery -Left subclavian artery-Right subclavian artery Vessels imaged: Right common carotid artery, cervical, oblique AP, lateralRight internal carotid artery, intracranial, AP, lateralRight internal carotid artery, intracranial, biplane obliqueRight external carotid artery, intracranial, biplane, AP, lateralLeft common carotid artery, cervical, oblique AP and lateralLeft internal carotid artery, intracranial, AP, lateralLeft internal carotid artery, intracranial, biplane obliqueLeft external carotid artery, intracranial, biplane, AP, lateralRight vertebral artery, intracranial, AP, lat eralLeft vertebral artery, intracranial, AP, lateral Intervention After diagnostic angiogram a 6 [place] Envoy guide catheter was placed intothe subclavian artery at the vertebral artery origin. We thenused amicrocatheter and microwire to traverse the lesion, and then we exchangedmicrocatheter for a BMW exchange length wire. Over the exchange length wirea xience drug-eluting stent measured 4 x 15 mm was placed across lesion. Itwas then slowly inflated to nominal pressure. Post deployment run showscomplete patency with no residual stenosis. The catheter was removed from the patient and images were reviewed. The right common femoral artery arterial sheath was then removed and groinhemostasis was achieved by compressive device. Patient tolerated the procedure well without complications. Findings were discussed with the patient, his family and the referringphysicians. Findings: - Right Common Carotid Artery: Carotid bifurcation is widely patent. There is no carotid stenosis.Cervical ICA is normal. - Right Internal Carotid Artery: Normal appearance of the petrous, cavernous and supraclinoid internalcarotid arteries. The carotid terminus, anterior and middle cerebralarteries are normal. Anterior communicating artery is demonstrated well andis normal in appearance. Right External Carotid Artery: Normal anatomy and no evidence of arteriovenous shunting or duralfistulization. - Left Common Carotid Artery: Previous carotid stent is seen there is mild less than 50% in-stentstenosis with no flow limitation. - Left Internal Carotid Artery: Normal appearance of the petrous, cavernous and supraclinoid internalcarotid arteries. The carotid terminus, anterior and middle cerebralarteries are normal. Anterior communicating artery is demonstrated well andis normal in appearance. - Left External Carotid Artery: Normal anatomy and no evidence of arteriovenous shunting or duralfistulization. - Right Subclavian Artery: The origin of the right vertebral artery has a 90% stenosis. - Right Vertebral Artery: Normal course in the cervical segment. 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 ? Right vertebral artery post stentingIt reviewed complete resolution of the stenosis with no vessel drop-offintracranially or in the cervical vertebral segment. - Left Subclavian Artery: Normal anatomy with no evidence of stenosis or dissection. The vertebralartery is not seen [facility], Radiant Results Inft User - 01/24/2020 11:11 AM CDTExamination:1 Cerebral angiography2 right vertebral artery origin stentingDate of surgery January 23, 2020Operators: Dr. Khai Christiansenication:Right vertebral artery origin stenosisConsent:The patient was given a full and complete explanation of the procedureincluding the risks, benefits, and possible complications which include butare not limited to vessel injury, vessel rupture, stroke, infection, comaand , and may include misti tional procedures. Patient understood andwished to proceed.Anesthesia:Conscious sedation and local infiltration of the right wrist usingsubcutaneous and subcuticular injection of 1% lidocaine.Procedure:The patient was brought into the biplane high resolution angiography suiteand placed supine on the table. After prepping and draping both femoralregions in the usual sterile fashion, a 21-gauge Cook micro puncture needlewas used to puncture the femoral artery and after brisk return of arterialblood, a 0.018 inch wire was threaded via the needle, after the needle waswithdrawn a 6-[place]i vascular sheath was then advanced over the wire andconnected to a pressurized arterial saline bag infusing 4 units heparin/ML.A 5 [place] Weaver 2 catheter, was then advanced over an 0.035 inch TerumoGlidewire was used to select the following arteries followed by biplaneimage acquisition of the same:Vessels catheterized:- Right Common Carotid Artery - Right Vertebral Artery - Left Common Carotid Artery - Left subclavian artery-Right subclavian arteryVessels imaged:Right common carotid artery, cervical, obliqueAP, lateralRight internal carotid artery, intracranial, AP, lateralRight internal carotid artery, intracranial, biplane obliqueRight external carotid artery, intracranial, biplane, AP, lateralLeft common carotid artery, cervical, oblique AP and lateralLeft internal carotid artery, intracranial, AP, lateralLeft internal carotid artery, intracranial, biplane obliqueLeft external carotid artery, intracranial, biplane, AP, lateralRight vertebral artery, intracranial, AP, lateralLeft vertebral artery, intracranial, AP, lateralInterventionAfter diagnostic angiogram a 6 [place]i Envoy guide catheter was placed intothe subclavian artery at the vertebral artery origin. We then used amicrocatheter and microwire to traverse the lesion, and then we exchangedmicrocatheter for a BMW exchange length wire. Over the exchange length wirea xience drug-eluting stent measured 4 x 15 mm was placed across lesion. Itwas then slowly inflated to nominal pressure. Post deployment run showscomplete patency with no residual stenosis.The catheter was removed from the patient and images were reviewed. The right common femoralartery arterial sheath was then removed and groinhemostasis was achieved by compressive device.Patient tolerated the procedure well without complications.Findings were discussed with the patient, his family and the referringphysicians.Findings:- Right Common Carotid Artery: Carotid bifurcation is widely patent. There is no carotid stenosis.Cervical ICA is normal.- Right Internal Carotid Artery: Normal appearance of the petrous, cavernous and supraclinoid internalcarotid arteries. The carotid terminus, anterior and middle cerebralarteries are normal. Anterior communicating artery is demonstrated well andis normal in appearance.Right External Carotid Artery: Normal anatomy and no evidence of arteriovenous shunting or duralfistulization.- Left Common Carotid Artery: Previous carotid stent is seen there is mild less than 50% in-stentstenosis with no flow limitation.- Left Internal Carotid Artery: Normal appearance of the petrous, cavernous and supraclinoid internalcarotid arteries. The carotid terminus, anterior and middle cerebralarteries are normal. Anterior communicating artery is demonstrated well andis normal in appearance.- Left External Carotid Artery: Normal anatomy and no evidence of arteriovenous shunting or duralfistulization.- Right Subclavian Artery: The origin of the right vertebral artery has a 90% stenosis.- Right Vertebral Artery: Normal course in the cervical segment. 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 Right vertebral artery post stentingIt reviewed complete resolution of the stenosis with no vessel drop-offintracranially or in the cervical vertebral segment.- Left Subclavian Artery: Normal anatomy with no evidence of s tenosis or dissection. 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.Mild less than 50% left car otid stent stenosis with no flow limitation.[facility] BASIC METABOLIC PANEL (NA, K, CL, CO2, GLUCOSE, BUN, CREATININE, CA)2020-01-24 08:09:00 Test Item Value Reference Range Interpretation Comments NA (test code = 141 mmol/L 135-145 8626235079) K (test code = 4.7 mmol/L 3.5-5 7488389122) CL (test code = 109 mmol/L 98-108 H 7008599144) CO2 TOTAL (test code = 21 mmol/L 23-31 L 9634860526) AGAP (test code = 2-16 0384838298) BUN (test code = 38 mg/dL 7-23 H 1335794254) GLUCOSE (test code = 162 mg/dL 70-110 H 5271545579) CREATININE (test code = 1.61 mg/dL 0.5-1.04 H 6303507756) CALCIUM (test code = 9.6 mg/dL 8.6-10.6 5737880459) eGFR Calculation mL/min/1.73m2 (Non-) (test code = 8157432100) eGFR Calculation mL/min/1.73m2 () (test code = 1400866063) JACI (test code = JACI) Association of Glomerular Filtration Rate (GFR) and Staging of Kidney Disease* + --+ --+ ------+| GFR (mL/min/1.73 m2) ?| With Kidney Damage ?| ?Without Kidney Damage+ --------+ --------+ +| ?>90 ?| ?Stage one ?| ? Normal ?+ ---+ ---+ -------+| ?60-89 ?| ?Stage two ?| ? Decreased GFR ? + --+ --+ ------+| ?30-59 ?| ?Stage three ?| ? Stage three ? + --+ --+ ------+| ?15-29 ?| ?Stage four ? | ? Stage four ?+ ---+ ---+ -------+| ?<15 (or dialysis) ? ?| ?Stage five ? | ? Stage five ?+ ---+ ---+ -------+ *Each stage assumes the associated GFR level has been in effect for at least three months. ?Stages 1 to 5, with or without kidney disease, indicate chronic kidney disease. Notes: Determination of stages one and two (with eGFR >59mL/min/1.73 m2) requires estimation of kidney damage for at least three months as defined by structural or functional abnormalities of the kidney, manifested by either:Pathological abnormalities or Markers of kidney damage (including abnormalities in the composition of the blood or urine or abnormalities in imaging tests). Lab Interpretation Abnormal (test code = 19201-1) [facility]2020-[facility]-14 08:09:00 Test Item Value Reference Range Interpretation Comments MAGNESIUM (test code = 2696394917) 2.1 mg/dL 1.7-2.4 Lab Interpretation (test code = Normal 84814-7) [facility] WITH [id number] 07:46:00 Test Item Value Reference Range Interpretation Comments WBC (test code = See_Comment H [Automated 3490-2) message] The sy stem which generated this result transmitted reference range : 4.30 - 11.10 10*3/?L. The reference range was not used to interpret this result as normal/abnormal . RBC (test code = See_Comment [Automated 078-8) message] The sy stem which generated this result transmitted reference range : 3.93 - 5.25 10*6/?L. The reference range was not used to interpret this result as normal/abnormal . HGB (test code = 11.2 g/dL 11.6-15 L 718-7) HCT (test code = 37.5 % 35.7-45.2 4544-3) MCV (test code = 91.5 fL 80.6-95.5 787-2) MCH (test code = 27.3 pg 25.9-32.8 785-6) MCHC (test code = 29.9 g/dL 31.6-35.1 L 786-4) RDW-SD (test code = 52.7 fL 39-49.9 H 06431-3) RDW-CV (test code = 15.7 % 12-15.5 H 788-0) PLT (test code = See_Comment [Automated 777-3) message] The sy stem which generated this result transmitted reference range : 166 - 358 10*3/ ?L. The reference r louise was not used to interpret this result as normal/abnormal . MPV (test code = 10.5 fL 9.5-12.9 22939-3) NRBC/100 WBC (test See_Comment [Automat ed code = 0706271278) message] The system which generated this result transmitted reference range : 0.0 - 10.0 /100 WBCs. The refer ence range was not u sed to interpret th is result as normal/abnormal . NRBC x10^3 (test code <0.01 See_Comment [Auto mated = 7943878152) message] The s ystem which generated this result transmitted reference range : 10*3/?L. The reference range was not used to interpret this result as normal/abnormal . GRAN MAT (NEUT) % 69.6 % (test code = 770-8) IMM GRAN % (test code 1.30 % = 1372038270) LYMPH % (test code = 16.4 % 736-9) MONO % (test code = 9.9 % 5905-5) EOS % (test code = 2.4 % 713-8) BASO % (test code = 0.4 % 706-2) GRAN MAT x10^3(ANC) 8.36 10*3/uL 1.88-7.09 H (test code = 2453047505) IMM GRAN x10^3 (test 0.16 10*3/uL 0-0.06 H code = 6635871650) LYMPH x10^3 (test code 1.97 10*3/uL 1.32-3.29 = 731-0) MONO x10^3 (test code 1.19 10*3/uL 0.33-0.92 H = 742-7) EOS x10^3 (test code = 0.29 10*3/uL 0.03-0.39 711-2) BASO x10^3 (test code 0.05 10*3/uL 0.01-0.07 = 704-7) Lab Interpretation Abnormal (test code = 58412-6) [facility] METABOLIC PANEL (NA, K, CL, CO2, GLUCOSE, BUN, CREATININE, CA)2020-01-23 22:12:00 Test Item Value Reference Range Interpretation Comments NA (test code = 140 mmol/L 135-145 7724245216) K (test code = 4.4 mmol/L 3.5-5 9304569899) CL (test code = 108 mmol/L 98-108 7733963645) CO2 TOTAL (test code = 25 mmol/L 23-31 7515862297) AGAP (test code = 2-16 3658236453) BUN (test code = 39 mg/dL 7-23 H 7204609689) GLUCOSE (test code = 109 mg/dL 70-110 4987821006) CREATININE (test code = 1.57 mg/dL 0.5-1.04 H 8058026286) CALCIUM (test code = 9.4 mg/dL 8.6-10.6 5223705887) eGFR Calculation mL/min/1.73m2 (Non-) (test code = 5841551081) eGFR Calculation mL/min/1.73m2 () (test code = 8437357695) JACI (test code = JACI) Association of Glomerular Filtration Rate (GFR) and Staging of Kidney Disease* + --+ --+ ------+| GFR (mL/min/1.73 m2) ?| With Kidney Damage ?| ?Without Kidney Damage+ --------+ --------+ +| ?>90 ?| ?Stage one ?| ? Normal ?+ ---+ ---+ -------+| ?60-89 ?| ?Stage two ?| ? Decreased GFR ? + --+ --+ ------+| ?30-59 ?| ?Stage three ?| ? Stage three ? + --+ --+ ------+| ?15-29 ?| ?Stage four ? | ? Stage four ?+ ---+ ---+ -------+| ?<15 (or dialysis) ? ?| ?Stage five ? | ? Stage five ?+ ---+ ---+ -------+ *Each stage assumes the associated GFR level has been in effect for at least three months. ?Stages 1 to 5, with or without kidney disease, indicate chronic kidney disease. Notes: Determination of stages one and two (with eGFR >59mL/min/1.73 m2) requires estimation of kidney damage for at least three months as defined by structural or functional abnormalities of the kidney, manifested by either:Pathological abnormalities or Markers of kidney damage (including abnormalities in the composition of the blood or urine or abnormalities in imaging tests). Lab Interpretation Abnormal (test code = 28586-9) [facility] [id number] 15:49:30 Test Item Value Reference Range Interpretation Comments ABO & RH (test code A Positive Performe d at [facility] = 20) Laboratory [facility] [address] [phone] Free: [phone] 266CLIA No. [id number] IAT (test code = Negative Performed a t [facility] 1185) Laboratory [facility] [address] [phone] Free: [phone] 266CLIA No. [id number] [facility] [id number] 16:56:00 Test Item Value Reference Range Interpretation Comments WBC (test code = See_Comment H [Automated 6690-2) message] The sy stem which generated this result transmitted reference range : 4.30 - 11.10 10*3/?L. The reference range was not used to interpret this result as normal/abnormal . RBC (test code = See_Comment L [Automated 789-8) message] The sy stem which generated this result transmitted reference range : 3.93 - 5.25 10*6/?L. The reference range was not used to interpret this result as normal/abnormal . HGB (test code = 9.0 g/dL 11.6-15 L 718-7) HCT (test code = 29.2 % 35.7-45.2 L 4544-3) MCV (test code = 96.1 fL 80.6-95.5 H 787-2) MCH (test code = 29.6 pg 25.9-32.8 785-6) MCHC (test code = 30.8 g/dL 31.6-35.1 L 786-4) RDW-SD (test code = 53.2 fL 39-49.9 H 77672-6) RDW-CV (test code = 15.1 % 12-15.5 788-0) PLT (test code = See_Comment [Automated 777-3) message] The sy stem which generated this result transmitted reference range : 166 - 358 10*3/ ?L. The reference r louise was not used to interpret this result as normal/abnormal . MPV (test code = 11.2 fL 9.5-12.9 61385-0) NRBC/100 WBC (test See_Comment [Automat ed code = 5796790359) message] The system which generated this result transmitted reference range : 0.0 - 10.0 /100 WBCs. The refer ence range was not u sed to interpret th is result as normal/abnormal . NRBC x10^3 (test code <0.01 See_Comment [Auto mated = 8254136129) message] The s ystem which generated this result transmitted reference range : 10*3/?L. The reference range was not used to interpret this result as normal/abnormal . GRAN MAT (NEUT) % 76.4 % (test code = 770-8) IMM GRAN % (test code 0.60 % = 0554041249) LYMPH % (test code = 13.1 % 736-9) MONO % (test code = 7.3 % 5905-5) EOS % (test code = 2.3 % 713-8) BASO % (test code = 0.3 % 706-2) GRAN MAT x10^3(ANC) 9.05 10*3/uL 1.88-7.09 H (test code = 4496477582) IMM GRAN x10^3 (test 0.07 10*3/uL 0-0.06 H code = 2716928606) LYMPH x10^3 (test code 1.55 10*3/uL 1.32-3.29 = 731-0) MONO x10^3 (test code 0.86 10*3/uL 0.33-0.92 = 742-7) EOS x10^3 (test code = 0.27 10*3/uL 0.03-0.39 711-2) BASO x10^3 (test code 0.03 10*3/uL 0.01-0.07 = 704-7) Lab Interpretation Abnormal (test code = 52509-9) [facility] WITH [id number] 16:56:00 Test Item Value Reference Range Interpretation Comments WBC (test code = See_Comment H [Automated 6690-2) message] The sy stem which generated this result transmitted reference range : 4.30 - 11.10 10*3/?L. The reference range was not used to interpret this result as normal/abnormal . RBC (test code = See_Comment L [Automated 789-8) message] The sy stem which generated this result transmitted reference range : 3.93 - 5.25 10*6/?L. The reference range was not used to interpret this result as normal/abnormal . HGB (test code = 9.0 g/dL 11.6-15 L 718-7) HCT (test code = 29.2 % 35.7-45.2 L 4544-3) MCV (test code = 96.1 fL 80.6-95.5 H 787-2) MCH (test code = 29.6 pg 25.9-32.8 785-6) MCHC (test code = 30.8 g/dL 31.6-35.1 L 786-4) RDW-SD (test code = 53.2 fL 39-49.9 H 61410-3) RDW-CV (test code = 15.1 % 12-15.5 788-0) PLT (test code = See_Comment [Automated 777-3) message] The sy stem which generated this result transmitted reference range : 166 - 358 10*3/ ?L. The reference r louise was not used to interpret this result as normal/abnormal . MPV (test code = 11.2 fL 9.5-12.9 45612-7) NRBC/100 WBC (test See_Comment [Automat ed code = 8155100146) message] The system which generated this result transmitted reference range : 0.0 - 10.0 /100 WBCs. The refer ence range was not u sed to interpret th is result as normal/abnormal . NRBC x10^3 (test code <0.01 See_Comment [Auto mated = 0644361917) message] The s ystem which generated this result transmitted reference range : 10*3/?L. The reference range was not used to interpret this result as normal/abnormal . GRAN MAT (NEUT) % 76.4 % (test code = 770-8) IMM GRAN % (test code 0.60 % = 1825398838) LYMPH % (test code = 13.1 % 736-9) MONO % (test code = 7.3 % 5905-5) EOS % (test code = 2.3 % 713-8) BASO % (test code = 0.3 % 706-2) GRAN MAT x10^3(ANC) 9.05 10*3/uL 1.88-7.09 H (test code = 7086816363) IMM GRAN x10^3 (test 0.07 10*3/uL 0-0.06 H code = 7849148027) LYMPH x10^3 (test code 1.55 10*3/uL 1.32-3.29 = 731-0) MONO x10^3 (test code 0.86 10*3/uL 0.33-0.92 = 742-7) EOS x10^3 (test code = 0.27 10*3/uL 0.03-0.39 711-2) BASO x10^3 (test code 0.03 10*3/uL 0.01-0.07 = 704-7) Lab Interpretation Abnormal (test code = 88278-1) [facility] METABOLIC PANEL (NA, K, CL, CO2, GLUCOSE, BUN, CREATININE, CA)2019-11-22 09:45:00 Test Item Value Reference Range Interpretation Comments NA (test code = 139 mmol/L 135-145 1731241498) K (test code = 5.1 mmol/L 3.5-5 H 0074530597) CL (test code = 115 mmol/L 98-108 H 0160703434) CO2 TOTAL (test code = 21 mmol/L 23-31 L 1226469802) AGAP (test code = 2-16 3344702002) BUN (test code = 35 mg/dL 7-23 H 9426691219) GLUCOSE (test code = 128 mg/dL 70-110 H 5170750687) CREATININE (test code = 1.43 mg/dL 0.5-1.04 H 2882041208) CALCIUM (test code = 8.5 mg/dL 8.6-10.6 L 3653857230) eGFR Calculation mL/min/1.73m2 (Non-) (test code = 5128888937) eGFR Calculation mL/min/1.73m2 () (test code = 2950793251) JACI (test code = JACI) Association of Glomerular Filtration Rate (GFR) and Staging of Kidney Disease* + --+ --+ ------+| GFR (mL/min/1.73 m2) ?| With Kidney Damage ?| ?Without Kidney Damage+ --------+ --------+ +| ?>90 ?| ?Stage one ?| ? Normal ?+ ---+ ---+ -------+| ?60-89 ?| ?Stage two ?| ? Decreased GFR ? + --+ --+ ------+| ?30-59 ?| ?Stage three ?| ? Stage three ? + --+ --+ ------+| ?15-29 ?| ?Stage four ? | ? Stage four ?+ ---+ ---+ -------+| ?<15 (or dialysis) ? ?| ?Stage five ? | ? Stage five ?+ ---+ ---+ -------+ *Each stage assumes the associated GFR level has been in effect for at least three months. ?Stages 1 to 5, with or without kidney disease, indicate chronic kidney disease. Notes: Determination of stages one and two (with eGFR >59mL/min/1.73 m2) requires estimation of kidney damage for at least three months as defined by structural or functional abnormalities of the kidney, manifested by either:Pathological abnormalities or Markers of kidney damage (including abnormalities in the composition of the blood or urine or abnormalities in imaging tests). Lab Interpretation Abnormal (test code = 64969-3) [facility]00 Test Item Value Reference Range Interpretation Comments MAGNESIUM (test code = 4409393036) 1.9 mg/dL 1.7-2.4 Lab Interpretation (test code = Normal 19425-7) [facility] METABOLIC PANEL (NA, K, CL, CO2, GLUCOSE, BUN, CREATININE, CA)2019-11-22 09:45:00 Test Item Value Reference Range Interpretation Comments NA (test code = 139 mmol/L 135-145 5761894111) K (test code = 5.1 mmol/L 3.5-5 H 1090028288) CL (test code = 115 mmol/L 98-108 H 7546813644) CO2 TOTAL (test code = 21 mmol/L 23-31 L 0531912910) AGAP (test code = 2-16 3436636916) BUN (test code = 35 mg/dL 7-23 H 5287542980) GLUCOSE (test code = 128 mg/dL 70-110 H 6779687121) CREATININE (test code = 1.43 mg/dL 0.5-1.04 H 1978281554) CALCIUM (test code = 8.5 mg/dL 8.6-10.6 L 2252681340) eGFR Calculation mL/min/1.73m2 (Non-) (test code = 7245743635) eGFR Calculation mL/min/1.73m2 () (test code = 3100518057) JAIC (test code = JACI) Association of Glomerular Filtration Rate (GFR) and Staging of Kidney Disease* + --+ --+ ------+| GFR (mL/min/1.73 m2) ?| With Kidney Damage ?| ?Without Kidney Damage+ --------+ --------+ +| ?>90 ?| ?Stage one ?| ? Normal ?+ ---+ ---+ -------+| ?60-89 ?| ?Stage two ?| ? Decreased GFR ? + --+ --+ ------+| ?30-59 ?| ?Stage three ?| ? Stage three ? + --+ --+ ------+| ?15-29 ?| ?Stage four ? | ? Stage four ?+ ---+ ---+ -------+| ?<15 (or dialysis) ? ?| ?Stage five ? | ? Stage five ?+ ---+ ---+ -------+ *Each stage assumes the associated GFR level has been in effect for at least three months. ?Stages 1 to 5, with or without kidney disease, indicate chronic kidney disease. Notes: Determination of stages one and two (with eGFR >59mL/min/1.73 m2) requires estimation of kidney damage for at least three months as defined by structural or functional abnormalities of the kidney, manifested by either:Pathological abnormalities or Markers of kidney damage (including abnormalities in the composition of the blood or urine or abnormalities in imaging tests). Lab Interpretation Abnormal (test code = 82510-8) [facility] 09:[facility]00 Test Item Value Reference Range Interpretation Comments MAGNESIUM (test code = 5928009132) 1.9 mg/dL 1.7-2.4 Lab Interpretation (test code = Normal 60003-7) [facility] [id number] 09:34:00 Test Item Value Reference Range Interpretation Comments WBC (test code = See_Comment H [Automated 5190-2) message] The sy stem which generated this result transmitted reference range : 4.30 - 11.10 10*3/?L. The reference range was not used to interpret this result as normal/abnormal . RBC (test code = See_Comment L [Automated 789-8) message] The sy stem which generated this result transmitted reference range : 3.93 - 5.25 10*6/?L. The reference range was not used to interpret this result as normal/abnormal . HGB (test code = 9.1 g/dL 11.6-15 L 718-7) HCT (test code = 29.8 % 35.7-45.2 L 4544-3) MCV (test code = 94.6 fL 80.6-95.5 787-2) MCH (test code = 28.9 pg 25.9-32.8 785-6) MCHC (test code = 30.5 g/dL 31.6-35.1 L 786-4) RDW-SD (test code = 52.1 fL 39-49.9 H 40230-7) RDW-CV (test code = 15.1 % 12-15.5 788-0) PLT (test code = See_Comment [Automated 777-3) message] The sy stem which generated this result transmitted reference range : 166 - 358 10*3/ ?L. The reference r louise was not used to interpret this result as normal/abnormal . MPV (test code = 10.6 fL 9.5-12.9 60473-2) NRBC/100 WBC (test See_Comment [Automat ed code = 9261076671) message] The system which generated this result transmitted reference range : 0.0 - 10.0 /100 WBCs. The refer ence range was not u sed to interpret th is result as normal/abnormal . NRBC x10^3 (test code <0.01 See_Comment [Auto mated = 9585539384) message] The s ystem which generated this result transmitted reference range : 10*3/?L. The reference range was not used to interpret this result as normal/abnormal . GRAN MAT (NEUT) % 71.4 % (test code = 770-8) IMM GRAN % (test code 0.40 % = 7119211771) LYMPH % (test code = 15.6 % 736-9) MONO % (test code = 8.4 % 5905-5) EOS % (test code = 3.8 % 713-8) BASO % (test code = 0.4 % 706-2) GRAN MAT x10^3(ANC) 8.04 10*3/uL 1.88-7.09 H (test code = 4065789392) IMM GRAN x10^3 (test 0.04 10*3/uL 0-0.06 code = 4883318105) LYMPH x10^3 (test code 1.75 10*3/uL 1.32-3.29 = 731-0) MONO x10^3 (test code 0.95 10*3/uL 0.33-0.92 H = 742-7) EOS x10^3 (test code = 0.43 10*3/uL 0.03-0.39 H 711-2) BASO x10^3 (test code 0.04 10*3/uL 0.01-0.07 = 704-7) Lab Interpretation Abnormal (test code = 83223-8) [facility] with [id number] 09:34:00 Test Item Value Reference Range Interpretation Comments WBC (test code = See_Comment H [Automated 6690-2) message] The sy stem which generated this result transmitted reference range : 4.30 - 11.10 10*3/?L. The reference range was not used to interpret this result as normal/abnormal . RBC (test code = See_Comment L [Automated 789-8) message] The sy stem which generated this result transmitted reference range : 3.93 - 5.25 10*6/?L. The reference range was not used to interpret this result as normal/abnormal . HGB (test code = 9.1 g/dL 11.6-15 L 718-7) HCT (test code = 29.8 % 35.7-45.2 L 4544-3) MCV (test code = 94.6 fL 80.6-95.5 787-2) MCH (test code = 28.9 pg 25.9-32.8 785-6) MCHC (test code = 30.5 g/dL 31.6-35.1 L 786-4) RDW-SD (test code = 52.1 fL 39-49.9 H 33654-9) RDW-CV (test code = 15.1 % 12-15.5 788-0) PLT (test code = See_Comment [Automated 777-3) message] The sy stem which generated this result transmitted reference range : 166 - 358 10*3/ ?L. The reference r louise was not used to interpret this result as normal/abnormal . MPV (test code = 10.6 fL 9.5-12.9 44000-1) NRBC/100 WBC (test See_Comment [Automat ed code = 7650273667) message] The system which generated this result transmitted reference range : 0.0 - 10.0 /100 WBCs. The refer ence range was not u sed to interpret th is result as normal/abnormal . NRBC x10^3 (test code <0.01 See_Comment [Auto mated = 1177882757) message] The s ystem which generated this result transmitted reference range : 10*3/?L. The reference range was not used to interpret this result as normal/abnormal . GRAN MAT (NEUT) % 71.4 % (test code = 770-8) IMM GRAN % (test code 0.40 % = 4893255675) LYMPH % (test code = 15.6 % 736-9) MONO % (test code = 8.4 % 5905-5) EOS % (test code = 3.8 % 713-8) BASO % (test code = 0.4 % 706-2) GRAN MAT x10^3(ANC) 8.04 10*3/uL 1.88-7.09 H (test code = 9915905053) IMM GRAN x10^3 (test 0.04 10*3/uL 0-0.06 code = 1145610907) LYMPH x10^3 (test code 1.75 10*3/uL 1.32-3.29 = 731-0) MONO x10^3 (test code 0.95 10*3/uL 0.33-0.92 H = 742-7) EOS x10^3 (test code = 0.43 10*3/uL 0.03-0.39 H 711-2) BASO x10^3 (test code 0.04 10*3/uL 0.01-0.07 = 704-7) Lab Interpretation Abnormal (test code = 70961-5) [facility] (BODY SHOP MECHANIC) [id number] 19:51:24Impression: 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 Examination: stent-assisted coiling of a basilar apex aneurysm Operators: Dr. Khai Carrasco Indication: Large basilar apex aneurysm. Consent: The patient was given a full and complete explanation of the procedureincluding the risks, benefits, and possible complications which include butare not limited to vessel injury, vesselrupture, stroke, infection, comaand , and may include additional procedures. ?Patient understood andwished to proceed. Anesthesia: General. Procedure: The patient was brought into the biplane highresolution angiography suiteand placed supine on the table. ?After prepping and draping both femoralregions and the right radial artery in the usual sterile fashion, q87-gznud Cook micro puncture needle was used to puncture the radial arteryand after brisk return of ?arterial blood, a 0.018 inch wire w as threadedvia the needle, after the 6-[place] vascular sheath was then advanced overthe wire and connected to a pressurized arterial saline bag infusing 4units heparin/ML. A 6-[place]i benchmark catheter, was then advanced over a glide wire to thesubclavian artery followed by biplane image acquisition of the same: Patient is on aspirin and brilinta. She was heparinized with 3000 units ofheparin an ACT of close to 250. Vessels catheterized: - Right subclavian- Right vertebral Vessels imaged: Right subclavian artery, cervical, oblique AP, lateralRight vertebral artery, intracranial, AP, lateral, and oblique 3-D rotational angiography acquisitions were performed through the rightvertebral artery. These3-D acquisitions were then transferred,reconstructed and analyzed on independent computer workstation. ? Intervention 1. Placement of intracranial stent in the left GRINDER OPERATOR SURFACE TOOL and basilar artery. 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 Following the diagnostic angiography and 3-D rotational angiography, theguide catheter was left in the subclavian artery due to significantstenosis at the vertebral artery origin. A SL 10 microcatheter was used totraverse the lesion and navigated into the leftPCA. A Neuroform stent wasdeployed from the left GRINDER OPERATOR SURFACE TOOL into the basilar artery. The measurement of thes tent was 3 mm x 24 mm. Next the same micro-catheter was used to traversethe stent into the aneurysm.3 coils were used to embolize the aneurysm. After each coil, a control run was performed to ensure there is nocompromise of the GRINDER OPERATOR SURFACE TOOL and the basilar artery. Final run showed goodobliteration of the basilar apex aneurysm with no thrombus in any vesselsvisualized. The catheter was removed from the patient and images were reviewed.The right radial artery arterial sheath was then removed and hemostasis wasachieved by TR band. Patient tolerated the procedure well without complications. Findings were discussed with the patient, his family and the referringphysicians. Findings: - Right subclavian artery: There is a 90% critical stenosis at the vertebral artery origin. - Right Vertebral Artery: Atherosclerosis in the cervical segment. Maximal stenosis around 60% withno flow limitation. Intracranial images showed a large basilar apexaneurysm which measures 6 mm in height 8 millimeter in width and 6 mminthe neck. ? -Right vertebral artery after placement of the neural amount of a stent. The stent is well-positioned from the basilar artery to left GRINDER OPERATOR SURFACE TOOL. There isno stenosis or thrombus seen. It bridgesthe neck of the aneurysm well. Right vertebral artery control run 1: There is no encroachment of thebasilar apex. The coil was within the confines of the aneurysm. Right vertebral artery control run 2:There is no encroachment of thebasilar apex. The coil was within the confines of the aneurysm. Rightvertebral artery control run 3: There is no encroachment of thebasilar apex. The coil was within theconfines of the aneurysm. There isadequate occlusion of the aneurysm. [facility], Radiant Results Inft User - 11/21/2019 2:52 PM CDTExamination: stent-assisted coiling of a basilar apex aneurysmOperators: Dr. Khai Christiansenication: Large basilar apex aneurysm.Consent:The patient was given a full and completeexplanation of the procedureincluding the risks, benefits, and possible complications which include butare not limited to vessel injury, vessel rupture, stroke, infection, comaand , and may include additional procedures. Patient understood andwished to proceed.Anesthesia:General.Procedure:The patient was brought into the biplane high resolution angiography suiteand placed supine on the table. After prepping and draping both femoralregions and the right radial artery in the usual sterile fashion, g29-gupas Cook micro puncture needle was used to puncture the radial arteryand after brisk returnof arterial blood, a 0.018 inch wire was threadedvia the needle, after the 6-[place]i vascular sheathwas then advanced overthe wire and connected to a pressurized arterial saline bag infusing 4units heparin/ML.A 6-[place]i benchmark catheter, was then advanced over a glide wire to thesubclavian artery followed by biplane image acquisition of the same:Patient is on aspirin and brilinta. She was heparinized with 3000 units ofheparin an ACT of close to 250.Vessels catheterized:- Right subclavian- Right vertebral Vessels imaged:Right subclavian artery, cervical, oblique AP, lateralRight vertebral artery,intracranial, AP, lateral, and oblique3-D rotational angiography acquisitions were performed throughthe rightvertebral artery. These 3-D acquisitions were then transferred,reconstructed and analyzed on independent computer workstation. Intervention1. Placement of intracranial stent in the left GRINDER OPERATOR SURFACE TOOL and basilar artery.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 A SL 10 microcatheter was used totraverse the lesionand navigated into the left GRINDER OPERATOR SURFACE TOOL. A Neuroform stent wasdeployed from the left GRINDER OPERATOR SURFACE TOOL into the basilar artery. The measurement of thestent was 3 mm x 24 mm. Next the same micro-catheter was used to traversethe stent into the aneurysm. 3 coils were used to embolize the aneurysm. After each coil, a control run was performed to ensure there is nocompromise of the GRINDER OPERATOR SURFACE TOOL and the basilar artery. 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 Maximal stenosis around 60% withno flow limitation. 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 -Right vertebral artery after placement of the neural amount of a stent. The stent is well-positioned from the basilar artery to left GRINDER OPERATOR SURFACE TOOL. There isno stenosis or thrombusseen. It bridges the neck of the aneurysm well.Right vertebral artery control run 1: There is no encroachment of thebasilar apex. The coil was within the confines of the aneurysm.Right vertebral arterycontrol run 2: There is no encroachment of thebasilar apex. The coil was within the confines of the a neurysm.Right vertebral artery control run 3: There is no encroachment of thebasilar apex. The coil was within the confines of the aneurysm. 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 Examination: stent-assisted coiling of a basilar apex aneurysm Operators: Dr. Khai Carrasco Indication: Large basilar apex aneurysm. Consent: The patient was given a full and complete explanation of the procedureincluding the risks, benefits, and possible complications which include butare not limited to vessel injury, vesselrupture, stroke, infection, comaand , and may include additional procedures. ?Patient understood andwished to proceed. Anesthesia: General. Procedure: The patient was brought into the biplane highresolution angiography suiteand placed supine on the table. ?After prepping and draping both femoralregions and the right radial artery in the usual sterile fashion, o01-uysdy Cook micro puncture needle was used to puncture the radial arteryand after brisk return of ?arterial blood, a 0.018 inch wire was threadedvia the needle, after the 6-[place] vascular sheath was then advanced overthe wire and connected to a pressurized arterial saline bag infusing 4units heparin/ML. A 6- [place]i benchmark catheter, was then advanced over a glide wire to thesubclavian artery followed by biplane image acquisition of the same: Patient is on aspirin and brilinta. She was heparinized with 3000 units ofheparin an ACT of close to 250. Vessels catheterized: - Right subclavian- Right vertebral Vessels imaged: Right subclavian artery, cervical, oblique AP, lateralRight vertebral artery, intracranial, AP, lateral, and oblique 3-D rotational angiography acquisitions were performed through the rightvertebral artery. These3-D acquisitions were then transferred,reconstructed and analyzed on independent computer workstation. ? Intervention 1. Placement of intracranial stent in the left GRINDER OPERATOR SURFACE TOOL and basilar artery. 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 Following the diagnostic angiography and 3-D rotational angiography, theguide catheter was left in the subclavian artery due to significantstenosis at the vertebral artery origin. A SL 10 microcatheter was used totraverse the lesion and navigated into the leftPCA. A Neuroform stent wasdeployed from the left GRINDER OPERATOR SURFACE TOOL into the basilar artery. The measurement of thestent was 3 mm x 24 mm. Next the same micro- catheter was used to traversethe stent into the aneurysm.3 coils were used to embolize the aneurysm. After each coil, a control run was performed to ensure t here is nocompromise of the GRINDER OPERATOR SURFACE TOOL and the basilar artery. Final run showed goodobliteration of the basilar apex aneurysm with no thrombus in any vesselsvisualized. The catheter was removed from the patient and images were reviewed.The right radial artery arterial sheath was then removed and hemostasis wasachieved by JACQUELYN goldberg. Patient tolerated the procedure well without complications. Findings were discussed with the patient, his family and the referringphysicians. Findings: - Right subclavian artery: There is a 90% critical stenosis at the vertebral artery origin. - Right Vertebral Artery: Atherosclerosis in the cervical segment. Maximal stenosis around 60% withno flow limitation. Intracranial images showed a large basilar apexaneurysm which measures 6 mm in height 8 millimeter in width and 6 mminthe neck. ? -Right vertebral artery after placement of the neural amount of a stent. The stent is w ell-positioned from the basilar artery to left GRINDER OPERATOR SURFACE TOOL. There isno stenosis or thrombus seen. It bridgesthe neck of the aneurysm well. Right vertebral artery control run 1: There is no encroachment of thebasilar apex. The coil was within the confines of the aneurysm. Right vertebral artery control run 2:There is no encroachment of thebasilar apex. The coil was within the confines of the aneurysm. Rightvertebral artery control run 3: There is no encroachment of thebasilar apex. The coil was within theconfines of the aneurysm. There isadequate occlusion of the aneurysm. [facility], Radiant Results Inft User - 11/21/2019 2:52 PM CDTExamination: stent-assisted coiling of a basilar apex aneurysmOperators: Dr. Khai Christiansenication: Large basilar apex aneurysm.Consent:The patient was given a full and completeexplanation of the procedureincluding the risks, benefits, and possible complications which include butare not limited to vessel injury, vessel rupture, stroke, infection, comaand , and may include additional procedures. Patient understood andwished to proceed.Anesthesia:General.Procedure:The patient was brought into the biplane high resolution angiography suiteand placed supine on the table. After prepping and draping both femoralregions and the right radial artery in the usual sterile fashion, d22-ginbi Cook micro puncture needle was used to puncture the radial arteryand after brisk returnof arterial blood, a 0.018 inch wire was threadedvia the needle, after the 6-Kuwaiti vascular sheathwas then advanced overthe wire and connected to a pressurized arterial saline bag infusing 4units heparin/ML.A 6-Kuwaiti benchmark catheter, was then advanced over a glide wire to thesubclavian artery followed by biplane image acquisition of the same:Patient is on aspirin and brilinta. She was heparinized with 3000 units ofheparin an ACT of close to 250.Vessels catheterized:- Right subclavian- Right vertebral Vessels imaged:Right subclavian artery, cervical, oblique AP, lateralRight vertebral artery,intracranial, AP, lateral, and oblique3-D rotational angiography acquisitions were performed throughthe rightvertebral artery. These 3-D acquisitions were then transferred,reconstructed and analyzed on independent computer workstation. Intervention1. Placement of intracranial stent in the left GRINDER OPERATOR SURFACE TOOL and basilar artery.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 A SL 10 microcatheter was used totraverse the lesionand navigated into the left GRINDER OPERATOR SURFACE TOOL. A Neuroform stent wasdeployed from the left GRINDER OPERATOR SURFACE TOOL into the basilar artery. The measurement of thestent was 3 mm x 24 mm. Next the same micro-catheter was used to traversethe stent into the aneurysm. 3 coils were used to embolize the aneurysm. After each coil, a control run was performed to ensure there is nocompromise of the GRINDER OPERATOR SURFACE TOOL and the basilar artery. 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 Maximal stenosis around 60% withno flow limitation. 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 -Right vertebral artery after placement of the neural amount of a stent. The stent is well-positioned from the basilar artery to left GRINDER OPERATOR SURFACE TOOL. There isno stenosis or thrombusseen. It bridges the neck of the aneurysm well.Right vertebral artery control run 1: There is no encroachment of thebasilar apex. The coil was within the confines of the aneurysm.Right vertebral arterycontrol run 2: There is no encroachment of thebasilar apex. The coil was within the confines of the a neurysm.Right vertebral artery control run 3: There is no encroachment of thebasilar apex. The coil was within the confines of the aneurysm. There isadequate occlusion of the aneurysm.IMPRESSIONImpression:Successful stent- assisted coiling of a large basilar apex aneurysm.[facility] ACT LOW [id number] 18:22:00 Test Item Value Reference Range Interpretation Comments ACTLR (test code = See_Comment H [Automat ed message] 4040791363) The system [employer] generated this result transmitted ref erence range: 89 - 169 Seconds. The reference range was not used to int erpret this result as normal/abnormal . Lab Interpretation (test Abnormal code = 14380-8) [facility] ACT LOW [id number] 18:22:00 Test Item Value Reference Range Interpretation Comments ACTLR (test code = See_Comment H [Automat ed message] 2207149974) The system [employer] generated this result transmitted ref erence range: 89 - 169 Seconds. The reference range was not used to int erpret this result as normal/abnormal . Lab Interpretation (test Abnormal code = 51975-6) [facility] and Screen - ONCE [id number] 14:43:40 Test Item Value Reference Range Interpretation Comments ABO & RH (test code A Positive Performe d at [facility]IM[facility] = 20) Laboratory Serv [facility] [address] [place] [phone] 4Toll Free: [phone] 266CLIA No. [id number] IAT (test code = Negative Performed a t [facility] 1185) Laboratory Serv [employer] [facility] [address] [phone] 4Toll Free: [phone] 266CLIA No. [id number] [facility] and Screen - ONCE [id number] 14:43:40 Test Item Value Reference Range Interpretation Comments ABO & RH (test code A Positive Performe d at [facility] = 20) Laboratory Serv [employer] [facility] [address] [place], [place] [address] 4Toll Free: [phone] 266CLIA No. [id number] IAT (test code = Negative Performed a t [facility] 1185) Laboratory Serv [facility] [address] [place], [place] [address] 4Toll Free: [phone] 266CLIA No. [id number] [facility] METABOLIC PANEL (NA, K, CL, CO2, GLUCOSE, BUN, CREATININE, CA)2019-11-21 14:33:00 Test Item Value Reference Range Interpretation Comments NA (test code = 140 mmol/L 135-145 3199980136) K (test code = 5.3 mmol/L 3.5-5 H Slight 0911575214) hemolysis CL (test code = 112 mmol/L 98-108 H 2950621634) CO2 TOTAL (test code 21 mmol/L 23-31 L = 3048349064) AGAP (test code = 2-16 0926208495) BUN (test code = 43 mg/dL 7-23 H Slight 9630642994) hemolysis GLUCOSE (test code = 135 mg/dL 70-110 H 6710730306) CREATININE (test code 1.40 mg/dL 0.5-1.04 H = 1198932653) CALCIUM (test code = 9.5 mg/dL 8.6-10.6 6526030847) eGFR Calculation mL/min/1.73m2 (Non-) (test code = 3516360338) eGFR Calculation mL/min/1.73m2 () (test code = 3100235717) JACI (test code = JACI) Association of Glomerular Filtration Rate (GFR) and Staging of Kidney Disease* + -----+ --------+ +| GFR (mL/min/1.73 m2) ?| With Kidney Damage ?| ?Without Kidney Damage+ +------- +---- --+| ?>90 ?| ?Stage one ?| ? Normal ?+ ------+ ---------+--------- +| ?60-89 ?| ?Stage two ?| ? Decreased GFR ? + -----+ --------+ +| ?30-59 ?| ?Stage three ?| ? Stage three ? + -----+ --------+ +| ?15-29 ?| ?Stage four ? | ? Stage four ?+ ------+ ---------+--------- +| ?<15 (or dialysis) ? ?| ?Stage five ? | ? Stage five ?+ ------+ ---------+--------- + *Each stage assumes the associated GFR level has been in effect for at least three months. ?Stages 1 to 5, with or without kidney disease, indicate chronic kidney disease. Notes: Determination of stages one and two (with eGFR >59mL/min/1.73 m2) requires estimation of kidney damage for at least three months as defined by structural or functional abnormalities of the kidney, manifested by either:Pathological abnormalities or Markers of kidney damage (including abnormalities in the composition of the blood or urine or abnormalities in imaging tests). Lab Interpretation Abnormal (test code = 63232-7) [facility] METABOLIC PANEL (NA, K, CL, CO2, GLUCOSE, BUN, CREATININE, CA)2019-11-21 14:33:00 Test Item Value Reference Range Interpretation Comments NA (test code = 140 mmol/L 135-145 0532708768) K (test code = 5.3 mmol/L 3.5-5 H Slight 3642558431) hemolysis CL (test code = 112 mmol/L 98-108 H 6390485478) CO2 TOTAL (test code 21 mmol/L 23-31 L = 6388184324) AGAP (test code = 2-16 1918784528) BUN (test code = 43 mg/dL 7-23 H Slight 6038447817) hemolysis GLUCOSE (test code = 135 mg/dL 70-110 H 8848655426) CREATININE (test code 1.40 mg/dL 0.5-1.04 H = 0672761834) CALCIUM (test code = 9.5 mg/dL 8.6-10.6 5859355864) eGFR Calculation mL/min/1.73m2 (Non-) (test code = 0010942353) eGFR Calculation mL/min/1.73m2 () (test code = 0085009446) JACI (test code = JACI) Association of Glomerular Filtration Rate (GFR) and Staging of Kidney Disease* + -----+ --------+ +| GFR (mL/min/1.73 m2) ?| With Kidney Damage ?| ?Without Kidney Damage+ +------- +---- --+| ?>90 ?| ?Stage one ?| ? Normal ?+ ------+ ---------+--------- +| ?60-89 ?| ?Stage two ?| ? Decreased GFR ? + -----+ --------+ +| ?30-59 ?| ?Stage three ?| ? Stage three ? + -----+ --------+ +| ?15-29 ?| ?Stage four ? | ? Stage four ?+ ------+ ---------+--------- +| ?<15 (or dialysis) ? ?| ?Stage five ? | ? Stage five ?+ ------+ ---------+--------- + *Each stage assumes the associated GFR level has been in effect for at least three months. ?Stages 1 to 5, with or without kidney disease, indicate chronic kidney disease. Notes: Determination of stages one and two (with eGFR >59mL/min/1.73 m2) requires estimation of kidney damage for at least three months as defined by structural or functional abnormalities of the kidney, manifested by either:Pathological abnormalities or Markers of kidney damage (including abnormalities in the composition of the blood or urine or abnormalities in imaging tests). Lab Interpretation Abnormal (test code = 58395-0) [facility] [id number] 14:31:00 Test Item Value Reference Range Interpretation Comments PROTIME PATIENT (test See_Comment [Auto mated message] code = 5964-2) The system [employer] generated this result transmitted ref erence range: 10.1 - 1 2.6 Seconds. The re ference range was not u sed to interpret this result as normal/abnor mal. INR (test code = 6301-6) Nor mal INR <1.1; Warfarin Therap eutic range 2.0 to 3. 0 or 2.5 to 3.5, dep ending upon the indica tions. Lab Interpretation (test Normal code = 50188-1) [facility] [id number] 14:31:00 Test Item Value Reference Range Interpretation Comments PROTIME PATIENT (test See_Comment [Auto mated message] code = 5964-2) The system wh ich generated this result transmitted ref erence range: 10.1 - 1 2.6 Seconds. The re ference range was not u sed to interpret this result as normal/abnor mal. INR (test code = 6301-6) Nor mal INR <1.1; Warfarin Therap eutic range 2.0 to 3. 0 or 2.5 to 3.5, dep ending upon the indica tions. Lab Interpretation (test Normal code = 30413-6) [facility] WITH [id number] 14:21:00 Test Item Value Reference Range Interpretation Comments WBC (test code = See_Comment H [Automated 6690-2) message] The sy stem which generated this result transmitted reference range : 4.30 - 11.10 10*3/?L. The reference range was not used to interpret this result as normal/abnormal . RBC (test code = See_Comment L [Automated 789-8) message] The sy stem which generated this result transmitted reference range : 3.93 - 5.25 10*6/?L. The reference range was not used to interpret this result as normal/abnormal . HGB (test code = 11.0 g/dL 11.6-15 L 718-7) HCT (test code = 34.6 % 35.7-45.2 L 4544-3) MCV (test code = 93.8 fL 80.6-95.5 787-2) MCH (test code = 29.8 pg 25.9-32.8 785-6) MCHC (test code = 31.8 g/dL 31.6-35.1 786-4) RDW-SD (test code = 51.1 fL 39-49.9 H 98183-7) RDW-CV (test code = 14.8 % 12-15.5 788-0) PLT (test code = See_Comment [Automated 777-3) message] The sy stem which generated this result transmitted reference range : 166 - 358 10*3/ ?L. The reference r louise was not used to interpret this result as normal/abnormal . MPV (test code = 10.8 fL 9.5-12.9 96093-2) NRBC/100 WBC (test See_Comment [Automat ed code = 5153436324) message] The system which generated this result transmitted reference range : 0.0 - 10.0 /100 WBCs. The refer ence range was not u sed to interpret th is result as normal/abnormal . NRBC x10^3 (test code <0.01 See_Comment [Auto mated = 0646457027) message] The s ystem which generated this result transmitted reference range : 10*3/?L. The reference range was not used to interpret this result as normal/abnormal . GRAN MAT (NEUT) % 69.7 % (test code = 770-8) IMM GRAN % (test code 0.90 % = 6387575036) LYMPH % (test code = 15.9 % 736-9) MONO % (test code = 9.4 % 5905-5) EOS % (test code = 3.7 % 713-8) BASO % (test code = 0.4 % 706-2) GRAN MAT x10^3(ANC) 8.00 10*3/uL 1.88-7.09 H (test code = 8800874995) IMM GRAN x10^3 (test 0.10 10*3/uL 0-0.06 H code = 1712254361) LYMPH x10^3 (test code 1.83 10*3/uL 1.32-3.29 = 731-0) MONO x10^3 (test code 1.08 10*3/uL 0.33-0.92 H = 742-7) EOS x10^3 (test code = 0.43 10*3/uL 0.03-0.39 H 711-2) BASO x10^3 (test code 0.05 10*3/uL 0.01-0.07 = 704-7) Lab Interpretation Abnormal (test code = 26803-7) [facility] WITH [id number] 14:21:00 Test Item Value Reference Range Interpretation Comments WBC (test code = See_Comment H [Automated 6690-2) message] The sy stem which generated this result transmitted reference range : 4.30 - 11.10 10*3/?L. The reference range was not used to interpret this result as normal/abnormal . RBC (test code = See_Comment L [Automated 929-8) message] The sy stem which generated this result transmitted reference range : 3.93 - 5.25 10*6/?L. The reference range was not used to interpret this result as normal/abnormal . HGB (test code = 11.0 g/dL 11.6-15 L 718-7) HCT (test code = 34.6 % 35.7-45.2 L 4544-3) MCV (test code = 93.8 fL 80.6-95.5 787-2) MCH (test code = 29.8 pg 25.9-32.8 785-6) MCHC (test code = 31.8 g/dL 31.6-35.1 786-4) RDW-SD (test code = 51.1 fL 39-49.9 H 79372-5) RDW-CV (test code = 14.8 % 12-15.5 788-0) PLT (test code = See_Comment [Automated 777-3) message] The sy stem which generated this result transmitted reference range : 166 - 358 10*3/ ?L. The reference r louise was not used to interpret this result as normal/abnormal . MPV (test code = 10.8 fL 9.5-12.9 34950-9) NRBC/100 WBC (test See_Comment [Automat ed code = 6065852471) message] The system which generated this result transmitted reference range : 0.0 - 10.0 /100 WBCs. The refer ence range was not u sed to interpret th is result as normal/abnormal . NRBC x10^3 (test code <0.01 See_Comment [Auto mated = 7252862042) message] The s ystem which generated this result transmitted reference range : 10*3/?L. The reference range was not used to interpret this result as normal/abnormal . GRAN MAT (NEUT) % 69.7 % (test code = 770-8) IMM GRAN % (test code 0.90 % = 5960566390) LYMPH % (test code = 15.9 % 736-9) MONO % (test code = 9.4 % 5905-5) EOS % (test code = 3.7 % 713-8) BASO % (test code = 0.4 % 706-2) GRAN MAT x10^3(ANC) 8.00 10*3/uL 1.88-7.09 H (test code = 8869556281) IMM GRAN x10^3 (test 0.10 10*3/uL 0-0.06 H code = 0116977630) LYMPH x10^3 (test code 1.83 10*3/uL 1.32-3.29 = 731-0) MONO x10^3 (test code 1.08 10*3/uL 0.33-0.92 H = 742-7) EOS x10^3 (test code = 0.43 10*3/uL 0.03-0.39 H 711-2) BASO x10^3 (test code 0.05 10*3/uL 0.01-0.07 = 704-7) Lab Interpretation Abnormal (test code = 50359-4) [facility] 2019-09-07 06:43:00 Test Item Value Reference Range Interpretation Comments SARS-COV2/RT-PCR (test Not Detected Not Detected, Negative code = 0810512) SARS-COV-2 PERFORMING LAB [facility] (test code = 7260034) Negative results do not preclude SARS-CoV-2 infection [...] of the Act.Fact Sheet for Healthcare Pro viders:https://www.iSTAR.[employer]/Documents/Xpert%20Xpress%20SARS%20CoV-2/Fact%20Sh eets/302-3802%19XMTA-QCX-6%20HEALTHCARE%20PROVIDERS%20FACT%20SHEET.pdfFact Sheet for Healthcare Patients:https://www.M:Metrics.[employer]/Documents/Xpert%20Xpress%20SARS%20CoV-2/Fact%20Sheets/302-3801%20SARS-COV -2%20PATIENT%20FACT%20SHEET.pdfPerforming Laboratory:[facility] [facility] [place] [id number] PLATELET AGGREGATION 2019-09-06 11:11:00 Test Item Value Reference Range Interpretation Comments POC-P2Y12 PLATELET AGG (BEAKER) (test 79 PRU code = 2303) RANGE INFORMATION: PRU reference range is 194-418. Post Drug Results: Lower PRU levels are associated with expected antiplatelet effect. Values may be below the stated reference range above. The post-drug PRU values reported in the [employer] P2Y12 package insert are [id number].POCT-ASPIRIN PLATELET [id number] 11:08:00 Test Item Value Reference Range Interpretation Comments POC-ASPIRIN PLATELET AGG (BEAKER) 385 ARU (test code = 2302) RANGE INFORMATION: 350-549 ARU Therapeutic range for platelet function. 550-700 ARU Non-Therapeutic range for platelet function.BASIC METABOLIC [id number] 10:35:00 Test Item Value Reference Range Interpretation [...] 697) EGFR (BEAKER) (test 23 mL/min/1.73 ESTIMA SHIRA GFR IS code = 1092) sq m NOT ACCURATE CREATININE CLEARANCE IN PREDICTING GLOMERULAR FILTRATION RATE . ESTIMATED GFR I S NOT APPLICABLE FOR DIALYSIS PATIEN TS. Rfid Strategist ID - MALOU FCBC W/PLT COUNT & AUTO [id number] 10:33:00 Test Item Value Reference Range Interpretation [...] 0-1 PERCENT (BEAKER) (test code = 2801) [id number] 10:12:00 Test Item Value Reference Range Interpretation [...] is2.5-3.5 for patients wiht mechanical heart valves.POCT-GLUCOSE [id number] 12:47:00 Test Item Value Reference Range Interpretation Comments POC-GLUCOSE METER 133 mg/dL 70-110 H : TESTED A T [facility] 6720 (BEAKER) (test code [facility], = 1538) 46360: Rfid Strategist/Techni gretel ID = [id number] for TSEG GAI, TSIGHEREDA POCT-GLUCOSE [id number] 07:59:00 Test Item Value Reference Range Interpretation Comments POC-GLUCOSE METER 125 mg/dL 70-110 H : TESTED A T [facility] 6720 (BEAKER) (test code [facility], = 1538) 00270: Rfid Strategist/Techni gretel ID = [id number] for TSEG GAI, TSIGHEREDA POCT-GLUCOSE [id number] 21:06:00 Test Item Value Reference Range Interpretation Comments POC-GLUCOSE METER 192 mg/dL 70-110 H : TESTED A T [facility] 67[address] (BEAKER) (test code = HUMBERTO Mackenzie [facility], 1538) 28112: Rfid Strategist/Techni gretel ID = [id number] for DE NNIS, MALIHA POCT-GLUCOSE [id number] 17:33:00 Test Item Value Reference Range Interpretation Comments POC-GLUCOSE METER 124 mg/dL 70-110 H : TESTED A T [facility] 67[address] (BEAKER) (test code [facility], = 1538) 44898: Rfid Strategist/Techni gretel ID = [id number] for TSEG GAI, TSIGHEREDA POCT-GLUCOSE [id number] 11:50:00 Test Item Value Reference Range Interpretation Comments POC-GLUCOSE METER 102 mg/dL 70-110 : TESTED A T [facility] 67[facility] (BEAKER) (test code [facility], = 1538) 59012: Rfid Strategist/Techni gretel ID = [id number] for TSEG GAI, TSIGHEREDA POCT-GLUCOSE [id number] 07:44:00 Test Item Value Reference Range Interpretation Comments POC-GLUCOSE METER 96 mg/dL 70-110 : [facility] (BEAKER) (test code [facility], = 1538) 20224: Rfid Strategist/Techni gretel ID = [id number] for TSEG GAI, TSIGHEREDA POCT-GLUCOSE [id number] 22:28:00 Test Item Value Reference Range Interpretation Comments POC-GLUCOSE METER 201 mg/dL 70-110 H : Notified RN/MD: (GIFTY) (test code = TESTED AT [facility] 67[address] 1538) [facility], [address]: Rfid Strategist/Techni gretel ID = [id number] for LATHBRIDGE, AMRITA ICE HEMOGLOBIN AND [id number] 11:01:00 Test Item Value Reference Range Interpretation Comments HEMOGLOBIN ([facility]) (test code = 9.3 GM/DL 11.2-15.7 L 410) HEMATOCRIT ([facility]) (test code = 28.8 % 34.1-44.9 L 411) Rfid Strategist ID - [id number]-GLUCOSE [id number] 23:42:00 Test Item Value Reference Range Interpretation Comments POC-GLUCOSE METER 158 mg/dL 70-110 H : Notified RN/MD: (GIFTY) (test code = TESTED AT [facility] 67[address] 1538) [facility], [address]: Rfid Strategist/Techni gretel ID = [id number] for AMRITA RYAO ICE POCT-GLUCOSE [id number] 12:06:00 Test Item Value Reference Range Interpretation Comments POC-GLUCOSE METER 157 mg/dL 70-110 H : TESTED A T [facility] 6720 (BEAKER) (test code [facility], = 1538) 99352: Rfid Strategist/Techni gretel ID = [id number] for LIZ BRYAN [id number] 06:57:00 Test Item Value Reference Range Interpretation Comments MAGNESIUM (BEAKER) (test code = 1.7 mg/dL 1.6-2.6 627) Rfid Strategist ID - KEARA WBASIC METABOLIC [id number] 06:57:00 Test Item Value Reference Range Interpretation [...] 697) EGFR (BEAKER) (test 42 mL/min/1.73 ESTIMA SHIRA GFR IS code = 1092) sq m NOT ACCURATE CREATININE CLEARANCE IN PREDICTING GLOMERULAR FILTRATION RATE . ESTIMATED GFR I S NOT APPLICABLE FOR DIALYSIS PATIEN TS. Rfid Strategist ID - KEARA WHEMOGLOBIN AND [id number] 05:42:00 Test Item Value Reference Range Interpretation Comments HEMOGLOBIN (BEAKER) (test code = 8.3 GM/DL 11.2-15.7 L 410) HEMATOCRIT (BEAKER) (test code = 26.4 % 34.1-44.9 L 411) Rfid Strategist ID - [id number]-GLUCOSE [id number] 22:26:00 Test Item Value Reference Range Interpretation Comments POC-GLUCOSE METER 137 mg/dL 70-110 H : TESTED A T [facility] 6720 (BEAKER) (test code = [facility] [facility], 1538) [address]: Rfid Strategist/Techni gretel ID = [id number] for MALLORY GRAHAM RAD, CHEST, 1 VIEW, NON [id number] 21:41:00Reason for exam:->shortness of breath, coughShould this [...] Annelise Davis Verified Date/Time: 05/25/2019 21:41:23 POCT-GLUCOSE [id number] 16:37:00 Test Item Value Reference Range Interpretation Comments POC-GLUCOSE METER 217 mg/dL 70-110 H : TESTED A T [facility] 6720 (BEAKER) (test code = [facility], 153) [address]30: Rfid Strategist/Techni gretel ID = [id number] for RO DGERS, JAMECA POCT-GLUCOSE [id number] 13:05:00 Test Item Value Reference Range Interpretation Comments POC-GLUCOSE METER 196 mg/dL 70-110 H : TESTED A T [facility] 6720 (BEAKER) (test code = [facility], 1538) 80646: Rfid Strategist/Techni gretel ID = [id number] for RO DGERS, JAMECA POCT-GLUCOSE [id number] 08:49:00 Test Item Value Reference Range Interpretation Comments POC-GLUCOSE METER 95 mg/dL 70-110 : TESTED A T [facility] 6720 (BEAKER) (test code = [facility], 1538) 27813: Rfid Strategist/Techni gretel ID = [id number] for NITA PORTER HEMOGLOBIN AND [id number] 05:24:00 Test Item Value Reference Range Interpretation Comments HEMOGLOBIN (BEAKER) (test code = 8.4 GM/DL 11.2-15.7 L 410) HEMATOCRIT (BEAKER) (test code = 27.0 % 34.1-44.9 L 411) Rfid Strategist ID - [id number]-GLUCOSE [id number] 22:08:00 Test Item Value Reference Range Interpretation Comments POC-GLUCOSE METER 164 mg/dL 70-110 H : TESTED A T [facility] 6720 (BEAKER) (test code = [facility], 1538) 87775: Rfid Strategist/Techni gretel ID = [id number] for MALLORY GRAHAM POCT-GLUCOSE [id number] 12:57:00 Test Item Value Reference Range Interpretation Comments POC-GLUCOSE METER 156 mg/dL 70-110 H : TESTED A T [facility] 6720 (BEAKER) (test code = [facility], 1538) 34547: Rfid Strategist/Techni gretel ID = [id number] for NITA GRANGER POCT-GLUCOSE [id number] 08:38:00 Test Item Value Reference Range Interpretation Comments POC-GLUCOSE METER 102 mg/dL 70-110 : TESTED A T [facility] 6720 (BEAKER) (test code = [facility], 1538) 79670: Rfid Strategist/Techni gretel ID = [id number] for NITA GRANGER BASIC METABOLIC [id number] 06:30:00 Test Item Value Reference Range Interpretation [...] 697) EGFR (BEAKER) (test 52 mL/min/1.73 ESTIMA SHIRA GFR IS code = 1092) sq m NOT ACCURATE CREATININE CLEARANCE IN PREDICTING GLOMERULAR FILTRATION RATE . ESTIMATED GFR I S NOT APPLICABLE FOR DIALYSIS PATIEN TS. Rfid Strategist ID - GALAPCBC (HEMOGRAM ONLY)2019-05-24 05:51:00 Test [...] 0-0 (BEAKER) (test code = 413) POCT-GLUCOSE [id number] 18:38:00 Test Item Value Reference Range Interpretation Comments POC-GLUCOSE METER 243 mg/dL 70-110 H : Notified RN/: (GIFTY) (test code = TESTED AT [facility] 1415 5762) [facility], [address]: Rfid Strategist/Techni gretel ID = [id number] for Keiry Owens BASIC METABOLIC [id number] 06:25:00 Test Item Value Reference Range Interpretation [...] 697) EGFR (BEAKER) (test 44 mL/min/1.73 ESTIMA SHIRA GFR IS code = 1092) sq m NOT ACCURATE CREATININE CLEARANCE IN PREDICTING GLOMERULAR FILTRATION RATE . ESTIMATED GFR I S NOT APPLICABLE FOR DIALYSIS PATIEN TS. Rfid Strategist ID - GALAPCBC (HEMOGRAM ONLY)2019-05-23 05:56:00 Test [...] 0-0 (BEAKER) (test code = 413) POCT-GLUCOSE [id number] 00:29:00 Test Item Value Reference Range Interpretation Comments POC-GLUCOSE METER 126 mg/dL 70-110 H : [facility] 6720 (BEAKER) (test code = [facility] [place], 1538) [address]: Rfid Strategist/Techni gretel ID = [id number] for MASON PHELPS CBC W/PLT COUNT & AUTO [id number] 06:36:00 Test Item Value Reference Range Interpretation [...] PERCENT (BEAKER) (test code = 2801) POCT-GLUCOSE [id number] 06:11:00 Test Item Value Reference Range Interpretation Comments POC-GLUCOSE METER 111 mg/dL 70-110 H : TESTED A T [facility] 67 ([facility]) (test code = [facility], 1538) 92969: Rfid Strategist/Techni gretel ID = [id number] for RAFAEL CARBAJAL POCT-GLUCOSE [id number] 18:56:00 Test Item Value Reference Range Interpretation Comments POC-GLUCOSE METER 137 mg/dL 70-110 H : Notified RN/MD: ([facility]) (test code = TESTED AT [place] [address] 1538) [facility], [address]: Rfid Strategist/Techni gretel ID = [id number] for DANDY ESTRADA [id number] 13:58:00 Test Item Value Reference Range Interpretation Comments POTASSIUM (BEAKER) (test code = 3.9 meq/L 3.5-5.1 379) Rfid Strategist ID - MALOU [id number] 13:58:00 Test Item Value Reference Range Interpretation Comments MAGNESIUM (BEAKER) (test code = 1.8 mg/dL 1.6-2.6 627) Rfid Strategist ID Ross WEST[place]ALL FCBC (HEMOGRAM ONLY)2019-05-21 13:41:00 Test Item Value [...] 0-0 (BEAKER) (test code = 413) POCT-GLUCOSE [id number] 13:11:00 Test Item Value Reference Range Interpretation Comments POC-GLUCOSE METER 164 mg/dL 70-110 H : Notified RN/MD: (BEAKER) (test code = TESTED AT [facility] 9573 7772) [facility], [address]: Rfid Strategist/Techni gretel ID = [id number] for DANDY WINSTON URIC [id number] 10:43:00 Test Item Value Reference Range Interpretation Comments URIC ACID (BEAKER) (test code = 5.7 mg/dL 2.6-7.2 773) Rfid Strategist ID - MALOU FBASIC METABOLIC [id number] 06:40:00 Test Item Value Reference Range Interpretation [...] 697) EGFR (BEAKER) (test 44 mL/min/1.73 ESTIMA SHIRA GFR IS code = 1092) sq m NOT ACCURATE CREATININE CLEARANCE IN PREDICTING GLOMERULAR FILTRATION RATE . ESTIMATED GFR I S NOT APPLICABLE FOR DIALYSIS PATIEN TS. Rfid Strategist ID - KEARA WPOCT-GLUCOSE [id number] 06:37:00 Test Item Value Reference Range Interpretation Comments POC-GLUCOSE METER 156 mg/dL 70-110 H : TESTED A T [facility] 6720 (BEAKER) (test code = [facility] [place], 1538) [address]: Rfid Strategist/Techni gretel ID = [id number] for VA RELA, RAJ CBC (HEMOGRAM ONLY)2019-05-21 [...] 0-0 (BEAKER) (test code = 413) POCT-GLUCOSE [id number] 00:42:00 Test Item Value Reference Range Interpretation Comments POC-GLUCOSE METER 155 mg/dL 70-110 H : TESTED A T [facility] 6720 (BEAKER) (test code = [facility] Mackenzie [facility], 1538) 14291: Rfid Strategist/Techni gretel ID = [id number] for VA RELA, RAJ [id number] 19:49:00 Test Item Value Reference Range Interpretation Comments FERRITIN (BEAKER) (test code = 361) 29 ng/mL 5-275 Rfid Strategist ID - TERRI [id number] 18:51:00 Test Item Value Reference Range Interpretation Comments TRANSFERRIN (BEAKER) (test code = 211 mg/dL 174-382 541) Rfid Strategist ID - TERRI HENRY, TIBC, % SAT. (WITHOUT FERRITIN)2019-05-20 18:51:00 Test Item Value Reference Range Interpretation Comments IRON (BEAKER) (test code = 547) 14.0 ug/dL 40.0-160.0 L TOTAL IRON BINDING CAPACITY 264 ug/dL 250-450 (BEAKER) (test code = 769) IRON % SATURATION (2) (BEAKER) 5 % 20-55 L (test code = 2590) Rfid Strategist ID - TERRI MRAD, ANKLE, 1 VIEW, [id number] 18:09:00Reason for exam:- >left ankle painShould this be performed at the bedside?->YesFINAL REPORT TECHNIQUE: Two views of left ankle HISTORY: left ankle pain. COMPARISON: None. IMPRESSION:No acute displaced fracture or dislocation. Joint spaces are within normal limits.Minimal Achilles enthesopathy. Large plantar calcaneal spur and enthesopathy. Signed: Steven Houston MDReport Verified Date/Time: 05/20/2019 18:09:20 Reading Location: [address] Consult Reading Room CBC (HEMOGRAM ONLY)2019-05-20 [...] WBC 0-0 (BEAKER) (test code = 413) [id number] 05:29:00 Test Item Value Reference Range Interpretation Comments MAGNESIUM (BEAKER) 1.9 mg/dL 1.6-2.6 Specimen slightly (test code = 627) hemolyzed Rfid Strategist ID - TERRI [id number] 05:29:00 Test Item Value Reference Range Interpretation Comments PHOSPHORUS (BEAKER) 3.3 mg/dL 2.3-4.7 Specimen slightly (test code = 604) hemolyzed Rfid Strategist ID - TERRI MBASIC METABOLIC [id number] 05:29:00 Test Item Value Reference Range Interpretation [...] 697) EGFR (BEAKER) (test 51 mL/min/1.73 ESTIMA SHIRA GFR IS code = 1092) sq m NOT ACCURATE CREATININE CLEARANCE IN PREDICTING GLOMERULAR FILTRATION RATE . ESTIMATED GFR I S NOT APPLICABLE FOR DIALYSIS PATIEN TS. Rfid Strategist ID - TERRI MCBC (HEMOGRAM ONLY)2019-05-20 04:51:00 [...] 0-0 (BEAKER) (test code = 413) POCT-GLUCOSE [id number] 18:36:00 Test Item Value Reference Range Interpretation Comments POC-GLUCOSE METER 101 mg/dL 70-110 : TESTED A T [facility] 6720 (BEAKER) (test code = [facility] [place], 1538) 45[address]: Rfid Strategist/Techni gretel ID = [id number] for DANDY ESTRADA CBC (HEMOGRAM ONLY)2019-05-19 18:33:00 [...] 0-0 (BEAKER) (test code = 413) POCT-GLUCOSE [id number] 12:30:00 Test Item Value Reference Range Interpretation Comments POC-GLUCOSE METER 130 mg/dL 70-110 H : TESTED A T [facility] 6720 (BEAKER) (test code = [facility]ERT[facility] Mackenzie [facility], 1538) 31376: Rfid Strategist/Techni grteel ID = [id number] for DANDY WINSTON [id number] 08:02:00 Test Item Value Reference Range Interpretation Comments PHOSPHORUS (BEAKER) (test code = 2.5 mg/dL 2.3-4.7 604) Rfid Strategist ID - TERRI [id number] 08:02:00 Test Item Value Reference Range Interpretation Comments MAGNESIUM (BEAKER) (test code = 1.6 mg/dL 1.6-2.6 627) Rfid Strategist ID - TERRI MBASIC METABOLIC [id number] 08:02:00 Test Item Value Reference Range Interpretation [...] 697) EGFR (BEAKER) (test 52 mL/min/1.73 ESTIMA SHIRA GFR IS code = 1092) sq m NOT ACCURATE CREATININE CLEARANCE IN PREDICTING GLOMERULAR FILTRATION RATE . ESTIMATED GFR I S NOT APPLICABLE FOR DIALYSIS PATIEN TS. Rfid Strategist ID - TERRI [id number] 07:40:00 Test Item Value Reference Range Interpretation Comments FIBRINOGEN LEVEL (BEAKER) (test 489 mg/dl 225-434 H code = 658) [id number] 07:40:00 Test Item Value Reference Range Interpretation [...] RED BLOOD CELLS 0 /100 WBC 0-0 ([facility]) (test code = 413) POCT-GLUCOSE [id number] 00:26:00 Test Item Value Reference Range Interpretation Comments POC-GLUCOSE METER 110 mg/dL 70-110 : Notified RN/MD: ([facility]) (test code = TESTED AT [place] [address]) [facility], [address]: Rfid Strategist/Techni gretel ID = [id number] for CHRIS PEREZ POCT-GLUCOSE [id number] 18:22:00 Test Item Value Reference Range Interpretation Comments POC-GLUCOSE METER 127 mg/dL 70-110 H : TESTED A T [place] [id number] ([facility]) (test code = [facility], 153) [address]72: Rfid Strategist/Techni gretel ID = [id number] for RADHA DE LOS SANTOS POCT-GLUCOSE [id number] 12:25:00 Test Item Value Reference Range Interpretation Comments POC-GLUCOSE METER 171 mg/dL 70-110 H : TESTED A T [facility] 6720 ([facility]) (test code = [facility], 153) 00576: Rfid Strategist/Techni gretel ID = [id number] for RADHA DE LOS SANTOS [id number] 04:17:00 Test Item Value Reference Range Interpretation Comments PHOSPHORUS (BEAKER) (test code = 2.0 mg/dL 2.3-4.7 L 604) Rfid Strategist ID Ross SARAH [id number] 04:17:00 Test Item Value Reference Range Interpretation Comments MAGNESIUM (BEAKER) (test code = 1.6 mg/dL 1.6-2.6 627) Rfid Strategist ID Ross SARAH WBASIC METABOLIC [id number] 04:17:00 Test Item Value Reference Range Interpretation [...] 697) EGFR (BEAKER) (test 49 mL/min/1.73 ESTIMA SHIRA GFR IS code = 1092) sq m NOT ACCURATE CREATININE CLEARANCE IN PREDICTING GLOMERULAR FILTRATION RATE . ESTIMATED GFR I S NOT APPLICABLE FOR DIALYSIS PATIEN TS. Rfid Strategist ID Ross SARAH WCBC (HEMOGRAM ONLY)2019-05-18 03:55:00 [...] 0-0 (BEAKER) (test code = 413) POCT-GLUCOSE [id number] 18:43:00 Test Item Value Reference Range Interpretation Comments POC-GLUCOSE METER 139 mg/dL 70-110 H : TESTED A T [facility] 6720 (BEAKER) (test code = [facility] Mackenzie [facility], 1538) [address]: Rfid Strategist/Techni gretel ID = [id number] for RADHA DE LOS SANTOS, CAROTID STENT W [id number] 15:10:00Reason for exam:->left carotid stenosisFINAL REPORT Date [...] guidance and strict sterile technique a 6 Kuwaiti shuttle sheath was inserted through the right [...] of approximately 70%. A distal protective device ([employer]) was gently navigated through the stenotic segment [...] the stent to the arterial wall with anabaptism of the intraluminal flow and mild residual stenosis of approximately 20%. There is no evidence of platelet aggregation, or dissection. Intracranially there is anabaptism of good antegrade flow with no evidence [...] Carrasco Verified Date/Time: 05/17/2019 15:10:42 Reading Location: [facility] [id number] Neuro Angio Reading Room POCT-GLUCOSE [id number] 12:40:00 Test Item Value Reference Range Interpretation Comments POC-GLUCOSE METER 130 mg/dL 70-110 H : TESTED A T [facility] 6720 (BEAKER) (test code = [facility] Gurdeep [place], 1538) [address]: Rfid Strategist/Techni gretel ID = [id number] for RADHA DE LOS SANTOS PROTHROMBIN [id number] 11:08:00 Test Item Value Reference Range Interpretation [...] INR is2.5-3.5 for patients wiht mechanical heart valves.[id number] 09:19:00 Test Item Value Reference Range Interpretation Comments PARTIAL THROMBOPLASTIN TIME 37.6 seconds 22.5-36.0 H (BEAKER) (test code = 760) POCT-GLUCOSE [id number] 06:49:00 Test Item Value Reference Range Interpretation Comments POC-GLUCOSE METER 110 mg/dL 70-110 : TESTED A T [facility] 6720 (BEAKER) (test code = [facility] [place], 1538) [address]: Rfid Strategist/Techni gretel ID = [id number] for MASON PHELPS BASIC METABOLIC [id number] 05:59:00 Test Item Value Reference Range Interpretation [...] 697) EGFR (BEAKER) (test 42 mL/min/1.73 ESTIMA SHIRA GFR IS code = 1092) sq m NOT ACCURATE CREATININE CLEARANCE IN PREDICTING GLOMERULAR FILTRATION RATE . ESTIMATED GFR I S NOT APPLICABLE FOR DIALYSIS PATIEN TS. Rfid Strategist ID - TERRI [id number] 05:35:00 Test Item Value Reference Range Interpretation Comments PARTIAL THROMBOPLASTIN TIME 38.3 seconds 22.5-36.0 H (BEAKER) (test code = 760) Prior to initiating heparinPOCT-P2Y12 PLATELET [id number] 05:34:00 Test Item Value Reference Range Interpretation Comments POC-P2Y12 PLATELET AGG (BEAKER) (test 230 PRU code = 2303) RANGE INFORMATION: PRU reference range is 194-418. Post Drug Results: Lower PRU levels are associated with expected antiplatelet effect. Values may be below the stated reference range above. The post-drug PRU values reported in the [employer] P2Y12 package insert are 18-435.POCT-ASPIRIN PLATELET [id number] 05:34:00 Test Item Value Reference Range Interpretation Comments POC-ASPIRIN PLATELET AGG (BEAKER) 564 ARU (test code = 2302) RANGE INFORMATION: 350-549 ARU Therapeutic range for platelet function. 550-700 ARU Non-Therapeutic range for platelet function.[id number] 05:34:00 Test Item Value Reference Range Interpretation [...] WBC 0-0 (BEAKER) (test code = 413) [id number] 02:03:00 Test Item Value Reference Range Interpretation Comments PARTIAL THROMBOPLASTIN TIME 35.8 seconds 22.5-36.0 (AKER) (test code = 760) 6 hours after starting heparin infusion and as indicated per sliding scalePOCT- GLUCOSE [id number] 00:00:00 Test Item Value Reference Range Interpretation Comments POC-GLUCOSE METER 109 mg/dL 70-110 : TESTED A T [facility] 6720 ([facility]) (test code = [facility], 153) 15[address]: Rfid Strategist/Techni gretel ID = [id number] for MASON PHELPS POCT-GLUCOSE [id number] 18:48:00 Test Item Value Reference Range Interpretation Comments POC-GLUCOSE METER 148 mg/dL 70-110 H : Notified RN/MD: ([facility]) (test code = TESTED AT [facility] 6720 1538) [facility], [address]: Rfid Strategist/Techni gretel ID = [id number] for STEWART MOORE [place], ANGIOGRAM, [id number] 16:45:00Reason for exam:->basilar tip aneurysmFINAL REPORT Date [...] guidance and strict sterile technique a 4 Kuwaiti femoral sheath was inserted into the right radial artery. Through the sheath a 4 [place]i [employer] catheter was then advanced over the wire [...] MDReport Verified Date/Time: 05/16/2019 16:45:20 Reading Location: [place] [address] Neuro Angio Reading Room POCT-GLUCOSE [id number] 13:41:00 Test Item Value Reference Range Interpretation Comments POC-GLUCOSE METER 120 mg/dL 70-110 H : TESTED A T [facility] 6720 ([facility]) (test code = HUM[facility]ERTO Mackenzie [facility], 1538) [address]: Rfid Strategist/Techni gretel ID = [id number] for ESVIN LAMBERT [id number] 09:24:00 Test Item Value Reference Range Interpretation Comments PARTIAL THROMBOPLASTIN TIME 36.3 seconds 22.5-36.0 H ([facility]) (test code = 760) 6 hours after starting heparin infusion and as indicated per sliding scaleCB (HEMOGRAM ONLY)2019-05-16 09:10:00 Test Item Value Reference Range Interpretation Comments WHITE BLOOD CELL COUNT ([facility]) 10.1 K/ L 3.5-10.5 (test code = [...] WBC 0-0 (BEAKER) (test code = 413) [id number] 03:01:00 Test Item Value Reference Range Interpretation [...] heart valves.Prior to initiating heparinPrior to initiating [id number] 03:01:00 Test Item Value Reference Range Interpretation Comments PARTIAL THROMBOPLASTIN TIME 32.2 seconds 22.5-36.0 (BEAKER) (test code = 760) BASIC METABOLIC [id number] 02:58:00 Test Item Value Reference Range Interpretation [...] 697) EGFR (BEAKER) (test 45 mL/min/1.73 ESTIMA SHIRA GFR IS code = 1092) sq m NOT ACCURATE CREATININE CLEARANCE IN PREDICTING GLOMERULAR FILTRATION RATE . ESTIMATED GFR I S NOT APPLICABLE FOR DIALYSIS PATIEN TS. Rfid Strategist ID - TERRI MPLATELET [id number] 02:45:00 Test Item Value Reference Range Interpretation Comments PLATELET COUNT (BEAKER) (test 231 K/CU MM 150-450 code = 756) Rfid Strategist ID - [id number], CEREBRAL PERFUSION [id number] 01:22:00FINAL REPORT CT cerebral perfusion analysis. Comparison: [...] at approximately 1:20 AM 05/16/2018. Signed: Fabiano Garrett Verified Date/Time: 05/16/2019 01:22:48 CT, NORA [id number] 01:09:00 FINAL REPORT EXAM: CT, CT Angio, [...] at approximately 1:05 AM 05/16/2019. Signed: Fabiano Garrett MDRepst. [facility] Verified Date/Time: 05/16/2019 01:09:25 CT, CAROTID, ANGIO [...] at approximately 1:05 AM 05/16/2019. Signed: Fabiano Garrett Verified Date/Time: 05/16/2019 01:09:25 [facility], B[facility]IN/STROKE PROTOCOL 2019-05-15 23:34:00FINAL [...] resident at 11:30 PM 05/15/2019. Signed: Fabiano Garretteport Verified Date/Time: 05/15/2019 23:34:22 POCT-GLUCOSE [id number] 20:57:00 Test Item Value Reference Range Interpretation Comments POC-GLUCOSE METER 119 mg/dL 70-110 H : TESTED A T [facility] 6720 (BEAKER) (test code = HUMBERTO Macknezie [facility], 1538) [address]: Rfid Strategist/Techni gretel ID = [id number] for CARLINE HARDING PROTHROMBIN [id number] 19:47:00 Test Item Value Reference Range Interpretation [...] is2.5-3.5 for patients wiht mechanical heart valves.POCT-GLUCOSE [id number] 17:51:00 Test Item Value Reference Range Interpretation Comments POC-GLUCOSE METER 125 mg/dL 70-110 H : TESTED A T [facility] 6720 (BEAKER) (test code = [facility], 1538) [address]: Rfid Strategist/Techni gretel ID = [id number] for BR OWN, MARIA DEL CARMEN POCT-GLUCOSE [id number] 11:55:00 Test Item Value Reference Range Interpretation Comments POC-GLUCOSE METER 169 mg/dL 70-110 H : TESTED A T [facility] 6720 (BEAKER) (test code = [facility], 1538) [address]: Rfid Strategist/Techni gretel ID = [id number] for BR OWN, MARIA DEL CARMEN HEMOGLOBIN [id number] 10:46:00 Test Item Value Reference Range Interpretation Comments HEMOGLOBIN A1C (BEAKER) (test code = 5.8 % 4.3-6.1 368) POCT-GLUCOSE [id number] 08:50:00 Test Item Value Reference Range Interpretation Comments POC-GLUCOSE METER 134 mg/dL 70-110 H : TESTED A T [facility] 6720 (BEAKER) (test code = [facility], 1538) [address]: Rfid Strategist/Techni gretel ID = [id number] for BR OWN, MARIA DEL CARMEN VITAMIN B12 AND [id number] 07:44:00 Test Item Value Reference Range Interpretation Comments VITAMIN B12 (BEAKER) (test code = 472 pg/mL 213-816 774) FOLATE (BEAKER) (test code = 362) 19.4 ng/mL >=7.0 Rfid Strategist ID - MALOU FPOCT-GLUCOSE [id number] 06:57:00 Test Item Value Reference Range Interpretation Comments POC-GLUCOSE METER 114 mg/dL 70-110 H : TESTED A T [facility] 6720 (BEAKER) (test code = [facility], 1538) [address]: Rfid Strategist/Techni gretel ID = [id number] for DE NNIS, MALIHA LIPID [id number] 06:53:00 Test Item Value Reference Range Interpretation [...] Borderline 130-159 High 160-189 Very High >=190 Rfid Strategist ID - PIAYALBASIC METABOLIC [id number] 06:53:00 Test Item Value Reference Range Interpretation [...] 697) EGFR (BEAKER) (test 46 mL/min/1.73 ESTIMA SHIRA GFR IS code = 1092) sq m NOT ACCURATE CREATININE CLEARANCE IN PREDICTING GLOMERULAR FILTRATION RATE . ESTIMATED GFR I S NOT APPLICABLE FOR DIALYSIS PATIEN TS. Rfid Strategist ID - PIAYA LCBC (HEMOGRAM ONLY)2019-05-15 06:29:00 [...] (test code = 413) MR, BRAIN, WITHOUT [id number] 04:06:00FINAL REPORT EXAM: MR, BRAIN, WITHOUT CONTRAST [...] Rosario MDReport Verified Date/Time: 05/15/2019 04:06:56 POCT-GLUCOSE [id number] 21:18:00 Test Item Value Reference Range Interpretation Comments POC-GLUCOSE METER 95 mg/dL 70-110 : TESTED A T [facility] 6720 (BEAKER) (test code = HUMBERTO Mackenzie [facility], 1538) [address]: Rfid Strategist/Techni gretel ID = [id number] for MALIHA COWAN BASIC METABOLIC [id number] 14:37:00 Test Item Value Reference Range Interpretation [...] 697) EGFR (BEAKER) (test 20 mL/min/1.73 ESTIMA SHIRA GFR IS code = 1092) sq m NOT ACCURATE CREATININE CLEARANCE IN PREDICTING GLOMERULAR FILTRATION RATE . ESTIMATED GFR I S NOT APPLICABLE FOR DIALYSIS PATIEN TS. BASIC METABOLIC [id number] 13:34:00 Test Item Value Reference Range Interpretation [...] 697) EGFR (BEAKER) (test 19 mL/min/1.73 ESTIMA SHIRA GFR IS code = 1092) sq m NOT ACCURATE CREATININE CLEARANCE IN PREDICTING GLOMERULAR FILTRATION RATE . ESTIMATED GFR I S NOT APPLICABLE FOR DIALYSIS PATIEN TS. [id number] 12:49:00 Test Item Value Reference Range Interpretation [...] mechanical heart valves.CBC W/PLT COUNT & AUTO [id number] 12:48:00 Test Item Value Reference Range Interpretation [...] % 0-1 PERCENT (BEAKER) (test code = 7251)"
[2021-03-31 17:08] LABS: Urine Blood 1+ (Negative); Urine Glucose Negative (Negative); Urine Protein 2+ (Negative); Urine Specific Gravity 1.025 (1.005-1.030); Urine pH 5.5 (5.0-7.0)
[2021-03-31 17:35] LABS: Urine Bacteria <20 /HPF (<20); Urine RBC <5 /HPF (NONE SEEN)
--- NOTE | 2021-03-31 18:09 | RAD REPORT ---
EXAM DESCRIPTION: RAD - Chest Single View - 03/31/2021 5:44 pm CLINICAL HISTORY: SWELLING COMPARISON: December 20 TECHNIQUE: AP portable chest image was obtained 03/31/2021 5:44 pm . FINDINGS: No focal lung parenchymal process. Interstitial pattern matches comparison. No new hilar m ass or lymphadenopathy. Heart and vasculature are normal. No measurable pleural effusion and no pneum othorax. No acute bony abnormality seen. No acute aortic findings suspected. IMPRESSION: No acute cardiopulmonary process. No significant change from comparison study.
[2021-03-31 18:15] LABS: Absolute Lymphocytes (CBC) 2.3 K/uL (0.7-4.9); Basophils % 0.9 % (0-1.3); Hematocrit 31.9 % (36.0-45.0); Lymphocytes % 18.2 % (15.3-44.8); MPV 8.6 fL (7.6-11.3); RBC Red Blood Cell Count 3.57 M/uL (3.86-4.86)
[2021-03-31 18:28] LABS: Protime INR 0.9
[2021-03-31 18:33] LABS: ALT/SGPT 65 U/L (12-78); AST/SGOT 45 U/L (15-37); Albumin 2.6 g/dL (3.4-5.0); Alkaline Phosphatase 182 U/L (45-117); BUN Blood Urea Nitrogen 25 mg/dL (7-18); Bicarbonate 23 mmol/L (21-32); Bilirubin Direct 0.1 mg/dL (0-0.2); Bilirubin Total 0.3 mg/dL (0.2-1.0); Glucose Level 92 mg/dL (74-106); Magnesium 2.1 mg/dL (1.8-2.4); NT PRO-BNP 1622 pg/mL (<450); Potassium 4.2 mmol/L (3.5-5.1); Protein, Total 7.1 g/dL (6.4-8.2); Sodium Level 143 mmol/L (136-145); Troponin (Emerg Dept Use Only) < 0.02 ng/mL (0.0-0.045)
--- NOTE | 2021-03-31 20:04 | ER ---
Nurse's Notes [facility] Name: Bharati Lancaster Age: 81 yrs Sex: Female : 1940 Arrival Date: 03/31/2021 Time: 15:14 Bed 7 Private MD: Casa Morton V Diagnosis: Dysuria-No UTI Presentation: 03/31 15:40 Chief complaint: Patient states: Notified by Dr. Maharaj for abnormal labs. She has ww recently been treated outpatient with antibiotics. Patient denies any urgency or painful urination. Coronavirus screen: Vaccine status: Patient reports receiving the 2nd dose of the covid vaccine. Client denies travel out of the [place] in the last 14 days. Ebola Screen: Patient negative for fever greater than or equal to 101.5 degrees Fahrenheit, and additional compatible Ebola Virus Disease symptoms Patient denies exposure to infectious person. Patient denies travel to an Ebola-affected area in the 21 days before illness onset. Initial Sepsis Screen: Does the patient meet any 2 criteria? No. Patient's initial sepsis screen is negative. Does the patient have a suspected source of infection? No. Patient's initial sepsis screen is negative. Risk Assessment: Do you want to hurt yourself or someone else? Patient reports no desire to harm self or others. Onset of symptoms is unknown. 15:40 Acuity: GONZALEZ 3 ww 15:40 Method Of Arrival: Wheelchair ww Triage Assessment: 15:48 General: Appears comfortable, well groomed, well developed, Behavior is calm, ww cooperative, appropriate for age. Pain: Denies pain. EENT: No deficits noted. No signs and/or symptoms were reported regarding the EENT system. Neuro: Level of Consciousness is awake, alert, obeys commands, Oriented to person, place, time, situation, Appropriate for age Speech is normal. Cardiovascular: Denies chest pain, shortness of breath, Capillary refill < 3 seconds. Respiratory: Airway is patent Respiratory effort is even, unlabored, Respiratory pattern is regular, symmetrical. GI: No deficits noted. No signs and/or symptoms were reported involving the gastrointestinal system. : Reports recurrent urinary tract infection. Derm: No deficits noted. No signs and/or symptoms reported regarding the dermatologic system. Skin is intact, Skin is pink, warm \T\ dry. Historical: - Allergies: 15:48 Baclofen; ww 15:48 ceftriaxone; ww 15:48 Codeine; ww 15:48 Cyclobenzaprine; ww 15:48 Darvocet-N 100; ww 15:48 Demerol; ww 15:48 Hydrocodone-Acetaminophen; ww 15:48 Morphine; ww 15:48 PENICILLINS; ww 15:48 plastic tape; ww 15:48 Propoxyphene N-Acetaminophen; ww - Home Meds: 15:48 allopurinol 100 mg Oral tab 1 tab once daily [Active]; amlodipine 5 mg tab 1 tab once ww daily [Active]; aspirin 81 mg Oral TbEC [Active]; atorvastatin 80 mg Oral tab 1 tab once daily [Active]; clonidine HCl 0.1 mg Oral tab [Active]; colchicine 0.6 mg Oral cap [Active]; levothyroxine 50 mcg tab 1 tab once daily [Active]; losartan potassium (bulk) 100 mg miscellaneous powd daily [Active]; metoprolol tartrate 100 mg Oral tab 1 tab once daily [Active]; Preser Vision AREDS 2 [Active]; tramadol 50 mg Oral TbDi 50 mg as needed [Active]; hydroxyzine HCl 25 mg Oral tab [Active]; - PMHx: 15:48 Aneurysm; Atrial Fib; bladder infections; Cataract; carpal tunnel; Cerebrovascular ww accident; Hypothyroidism; Hyperlipidemia; GERD; DVT; CVA; chronic kidney disease; Cervical radicular pain; Hypertension; Gout; Diabetes - NIDDM; Degenative join disease; CHF; - PSHx: 15:48 Aneurysm Mesh placement; Left knee replacement; Cholecystectomy; Stented artery; ww - Immunization history:: Flu vaccine is up to date. - Social history:: Smoking status: Patient denies any tobacco usage or history of. Screenin:45 Abuse screen: Denies threats or abuse. Nutritional screening: No deficits noted. jd3 Tuberculosis screening: No symptoms or risk factors identified. Fall Risk Ambulatory Aid- None/Bed Rest/Nurse Assist (0 pts). Gait- Normal/Bed Rest/Wheelchair (0 pts) Mental Status- Oriented to own ability (0 pts). Total Lee Fall Scale indicates No Risk (0-24 pts). Assessment: 17:42 General: Appears in no apparent distress. uncomfortable, Behavior is calm, cooperative, jd3 appropriate for age. Pain: Denies pain. Neuro: Level of Consciousness is awake, alert, obeys commands, Oriented to person, place, time, situation. Cardiovascular: Capillary refill < 3 seconds Patient's skin is warm and dry. Respiratory: Airway is patent Respiratory effort is even, unlabored, Respiratory pattern is regular, symmetrical. GI: Abdomen is round Reports nausea. : Reports burning with urination. EENT: No signs and/or symptoms were reported regarding the EENT system. Derm: Skin is intact, Skin is dry, Skin is normal, Skin temperature is warm. Musculoskeletal: Circulation, motion, and sensation intact. Range of motion: intact in all extremities. 18:30 Reassessment: Patient appears in no apparent distress at this time. No changes from jd3 previously documented assessment. Patient and/or family updated on plan of care and expected duration. Pain level reassessed. Patient is alert, oriented x 3, equal unlabored respirations, skin warm/dry/pink. 19:38 Reassessment: Patient and/or family updated on plan of care and expected duration. Pain tw5 level reassessed. Patient is alert, oriented x 3, equal unlabored respirations, skin warm/dry/pink. Patient denies pain at this time. Extra warm blanket given to patient. Lights dimmed. 20:45 Reassessment: Patient appears in no apparent distress at this time. No changes from marianela previously documented assessment. Patient is alert, oriented x 3, equal unlabored respirations, skin warm/dry/pink. Patient states feeling better. Vital Signs: 15:40 BP 157 / 45; Pulse 50; Resp 18; Temp 97.5; Pulse Ox 100% on R/A; Weight 74.84 kg; ww Height 5 ft. 5 in. (165.10 cm); Pain 0/10; 17:55 BP 173 / 51 LA Sitting (auto/lg); Pulse 66; Resp 16 S; Pulse Ox 99% on R/A; Pain 0/10; mb4 19:39 BP 157 / 59; Pulse 73; Resp 18; Pulse Ox 9% on R/A; tw5 20:45 BP 182 / 65; Pulse 78; Resp 22; Pulse Ox 98% ; marianela 15:40 Body Mass Index 27.46 (74.84 kg, 165.10 cm) ED Course: 15:14 Patient arrived in ED. am2 15:14 Selene, Casa, MD is Private Physician. am2 15:47 Triage completed. ww 15:48 Arm band placed on left wrist. ww 16:10 Matt Reilly PA is PHCP. cp 16:10 Matt Blackburn MD is Attending Physician. cp 16:12 Juan Aviles, TOI is Primary Nurse. jd3 17:11 Straight cath inserted, using sterile technique, Returned Patient tolerated well. mb7 17:28 EKG done, by ED staff, reviewed by Matt PIZANO. mb4 17:44 XRAY Chest (1 view) In Process Unspecified. EDMS 17:46 Patient has correct armband on for positive identification. Bed in low position. Call jd3 light in reach. Side rails up X 1. Adult w/ patient. transfusion nurse on. Pulse ox on. NIBP on. 17:54 Initial lab(s) drawn, by md, sent to lab. Inserted saline lock: 22 gauge in right mb4 antecubital area, using aseptic technique. Blood collected. IV infiltrated during blood draw. 18:11 Inserted saline lock: 22 gauge in left antecubital area, using aseptic technique. Blood jd3 collected. 18:44 Cleaned of incontinence. mb4 19:27 Primary Nurse role handed off by Juan Aviles, RN mw2 19:28 Helen Michael is Primary Nurse. tw5 19:29 Blood Culture Adult (2) Sent. tw5 19:29 Basic Metabolic Panel Sent. tw5 19:29 CBC with Diff Sent. tw5 19:29 LFT's Sent. tw5 19:29 Magnesium Sent. tw5 19:38 Door closed. Noise minimized. Moved to private room. Warm blanket given. Verbal tw5 reassurance given. 19:39 Lights dimmed. tw5 20:02 Casa Morton MD is Referral Physician. jr8 20:45 No provider procedures requiring assistance completed. IV discontinued, intact, marianela bleeding controlled, No redness/swelling at site. Pressure dressing applied. Administered Medications: No medications were administered Outcome: 20:03 Discharge ordered by . jr8 20:45 Discharged to home via wheelchair, with family. marianela 20:45 Condition: good 20:45 Discharge instructions given to patient, family, Instructed on discharge instructions, follow up and referral plans. Demonstrated understanding of instructions, follow-up care. 20:49 Patient left the ED. marianela Signatures: Dispatcher [employer] EDMS Jose Manuel Leavitt PA PA jr8 Matt Reilly PA PA cp Moreno, Amanda 2 Juan Aviles RN RN jd3 Austin Vann 2 Jennifer Rushing mb4 Helen Michael tw5 Noa Gaviria mb7 Shikha Forbes RN RN bo Wood, Whitney, RN RN ww
--- NOTE | 2021-03-31 20:04 | EDPHYS ---
Physician Documentation [facility] Name: Bharati Lancaster Age: 81 yrs Sex: Female : 1940 Arrival Date: 03/31/2021 Time: 15:14 Bed 7 Private MD: Casa Morton V ED Physician Matt Blackburn HPI: 03/31 16:45 This 81 yrs old Female presents to ER via Wheelchair with complaints of infection. cp 16:45 The patient presents with chronic UTI. cp 16:45 Associated signs and symptoms: Pertinent negatives: fever, hematuria. cp 16:45 Daughter reports patient with history of frequent UTIs. Finished oral antibiotic about cp 1 week ago. Sent to ED by office of DR Stallworth today for evaluation of positive urine culture 03-25-2021. Historical: - Allergies: 15:48 Baclofen; ww 15:48 ceftriaxone; ww 15:48 Codeine; ww 15:48 Cyclobenzaprine; ww 15:48 Darvocet-N 100; ww 15:48 Demerol; ww 15:48 Hydrocodone-Acetaminophen; ww 15:48 Morphine; ww 15:48 PENICILLINS; ww 15:48 plastic tape; ww 15:48 Propoxyphene N-Acetaminophen; ww - Home Meds: 15:48 allopurinol 100 mg Oral tab 1 tab once daily [Active]; amlodipine 5 mg tab 1 tab once ww daily [Active]; aspirin 81 mg Oral TbEC [Active]; atorvastatin 80 mg Oral tab 1 tab once daily [Active]; clonidine HCl 0.1 mg Oral tab [Active]; colchicine 0.6 mg Oral cap [Active]; levothyroxine 50 mcg tab 1 tab once daily [Active]; losartan potassium (bulk) 100 mg miscellaneous powd daily [Active]; metoprolol tartrate 100 mg Oral tab 1 tab once daily [Active]; Preser Vision AREDS 2 [Active]; tramadol 50 mg Oral TbDi 50 mg as needed [Active]; hydroxyzine HCl 25 mg Oral tab [Active]; - PMHx: 15:48 Aneurysm; Atrial Fib; bladder infections; Cataract; carpal tunnel; Cerebrovascular ww accident; Hypothyroidism; Hyperlipidemia; GERD; DVT; CVA; chronic kidney disease; Cervical radicular pain; Hypertension; Gout; Diabetes - NIDDM; Degenative join disease; CHF; - PSHx: 15:48 Aneurysm Mesh placement; Left knee replacement; Cholecystectomy; Stented artery; ww - Immunization history:: Flu vaccine is up to date. - Social history:: Smoking status: Patient denies any tobacco usage or history of. ROS: 16:50 Constitutional: Negative for body aches, chills, fever, poor PO intake. cp 16:50 Cardiovascular: Negative for chest pain, palpitations. cp Exam: 16:55 Constitutional: The patient appears in no acute distress, alert, awake, cp non-diaphoretic, non-toxic, well developed, well nourished. 16:55 Head/Face: Normocephalic, atraumatic. cp 16:55 Eyes: Periorbital structures: appear normal, Conjunctiva: normal, no exudate, no injection, Sclera: no appreciated abnormality, Lids and lashes: appear normal, bilaterally. 16:55 ENT: External ear(s): are unremarkable, Nose: is normal, Mouth: Lips: moist, Oral mucosa: moist, Posterior pharynx: Airway: no evidence of obstruction, patent. 16:55 Neck: ROM/movement: is normal, is supple, without pain, no range of motions limitations, no meningismus. 16:55 Chest/axilla: Inspection: normal. 16:55 Cardiovascular: Rate: bradycardic, Rhythm: regular, Edema: is not appreciated, JVD: is not appreciated. 16:55 Respiratory: the patient does not display signs of respiratory distress, Respirations: normal, no use of accessory muscles, no retractions, labored breathing, is not present, Breath sounds: are clear throughout, no decreased breath sounds, no stridor, no wheezing. 16:55 Abdomen/GI: Inspection: abdomen appears normal, Bowel sounds: active, all quadrants, Palpation: abdomen is soft and non-tender, in all quadrants, voluntary guarding, is not appreciated, involuntary guarding, is not appreciated. 16:55 Back: pain, that is very mild, of the low back area, ROM is normal. 16:55 Neuro: Orientation: to person, place \T\ time. Mentation: is normal, Motor: moves all fours, strength is normal, Sensation: is normal. 17:25 ECG was reviewed by the Attending Physician. cp Vital Signs: 15:40 BP 157 / 45; Pulse 50; Resp 18; Temp 97.5; Pulse Ox 100% on R/A; Weight 74.84 kg; ww Height 5 ft. 5 in. (165.10 cm); Pain 0/10; 17:55 BP 173 / 51 LA Sitting (auto/lg); Pulse 66; Resp 16 S; Pulse Ox 99% on R/A; Pain 0/10; mb4 19:39 BP 157 / 59; Pulse 73; Resp 18; Pulse Ox 9% on R/A; tw5 20:45 BP 182 / 65; Pulse 78; Resp 22; Pulse Ox 98% ; marianela 15:40 Body Mass Index 27.46 (74.84 kg, 165.10 cm) ww MDM: 16:17 Patient medically screened. dudley 17:00 Differential diagnosis: UTI, sepsis, electrolyte abnormality, cardiac arrythmia. cp 20:01 Data reviewed: vital signs, nurses notes, lab test result(s), EKG, radiologic studies, jr8 plain films. Data interpreted: Pulse oximetry: on room air is 99 %. Interpretation: normal. Counseling: I had a detailed discussion with the patient and/or guardian regarding: the historical points, exam findings, and any diagnostic results supporting the discharge/admit diagnosis, lab results, radiology results, the need for outpatient follow up, a family practitioner, to return to the emergency department if symptoms worsen or persist or if there are any questions or concerns that arise at home. ED course: Urine dipstick did not show any nitrate or leukocyte, urine microscopic examination without any red blood cell, white blood cell, or bacteria. Patient remains asymptomatic and was recently treated for chronic UTI. I will send patient home to follow-up with family medicine but at this time patient should not be treated with IV antibiotics.. 03/31 16:43 Order name: Basic Metabolic Panel cp 03/31 16:43 Order name: CBC with Diff cp 03/31 16:43 Order name: LFT's cp 03/31 16:43 Order name: Magnesium cp 03/31 16:43 Order name: NT PRO-BNP; Complete Time: 20:00 cp 03/31 16:43 Order name: PT-INR; Complete Time: 20:00 cp 03/31 16:43 Order name: Troponin (emerg Dept Use Only); Complete Time: 20:00 cp 03/31 16:43 Order name: Procalcitonin; Complete Time: 20:00 03/31 16:43 Order name: Lactate; Complete Time: 20:00 03/31 16:43 Order name: Blood Culture Adult (2) cp 03/31 16:43 Order name: Urine Microscopic Only; Complete Time: 17:51 03/31 17:51 Interpretation: Reviewed. 03/31 16:44 Order name: Basic Metabolic Panel; Complete Time: 20:00 EDMS 03/31 16:44 Order name: CBC with Automated Diff; Complete Time: 20:00 EDMS 03/31 16:44 Order name: Liver (Hepatic) Function; Complete Time: 20:00 EDMS 03/31 16:43 Order name: XRAY Chest (1 view); Complete Time: 20:00 03/31 16:43 Order name: EKG; Complete Time: 16:44 03/31 16:43 Order name: Cardiac monitoring; Complete Time: 17:42 03/31 16:43 Order name: EKG - Nurse/Tech; Complete Time: 17:42 03/31 16:43 Order name: IV Saline Lock; Complete Time: 18:28 03/31 16:43 Order name: Labs collected and sent; Complete Time: 18:28 03/31 16:43 Order name: O2 Per Protocol; Complete Time: 17:42 03/31 16:43 Order name: O2 Sat Monitoring; Complete Time: 17:42 03/31 16:43 Order name: Urine Dipstick-Ancillary (obtain specimen); Complete Time: 17:11 03/31 16:43 Order name: Cath; Complete Time: 17:11 03/31 16:44 Order name: Magnesium; Complete Time: 20:00 EDMS 03/31 17:08 Order name: Urine Dipstick-Ancillary; Complete Time: 17:35 EDMS 03/31 17:35 Interpretation: Normal except: UBLD 1+; UPROT 2+. cp EC:25 Rate is 57 beats/min. Rhythm is regular. VT interval is normal. QRS interval is cp prolonged at 116 msec. QT interval is normal. T waves are Inverted in lead aVR. Interpreted by me. Reviewed by me. Administered Medications: No medications were administered Disposition: 04/01 18:58 Co-signature as Attending Physician, Matt Blackburn MD I agree with the assessment and dudley plan of care. Disposition Summary: 03/31/21 20:03 Discharge Ordered Location: Home jr8 Problem: new jr8 Symptoms: have improved jr8 Condition: Stable jr8 Diagnosis - Dysuria - No UTI jr8 Followup: jr8 - With: Casa Morton MD - When: 1 - 2 days - Reason: Recheck today's complaints, Continuance of care, Re-evaluation by your physician Discharge Instructions: - Discharge Summary Sheet jr8 - Dysuria jr8 Forms: - Medication Reconciliation Form jr8 - Thank You Letter jr8 - Antibiotic Education jr8 - Prescription Opioid Use jr8 Signatures: Dispatcher [employer] EDMS Matt Blackburn MD MD cha Roszak, Josh, PA PA jr8 Matt Reilly PA PA cp Wood, Whitney, RN RN ww
[2021-03-31 21:12] VITALS: TEMP 97.5
[2021-03-31 21:17] VITALS: BP 182/65; O2SAT 98
--- NOTE | 2021-04-01 07:35 | EKG ---
Test Date: 2021-03-31 Test Time: 17:18:05 Director Of Teaching And Learning: ALEIDA MEASUREMENT RESULTS: Intervals: Rate: 57 DE: 148 QRSD: 116 QT: 478 QTc: 465 Hondo: P: 74 DE: 148 QRS: -39 T: -4 INTERPRETIVE STATEMENTS: Sinus bradycardia with marked sinus arrhythmia Left axis deviation Left ventricular hypertrophy with QRS widening Anteroseptal infarct, age undetermined Abnormal ECG Compared to ECG 12/16/2020 22:41:50 Sinus rhythm no longer present Atrial premature complex(es) no longer present Incomplete right bundle-branch block no longer present ST (T wave) deviation no longer present Possible ischemia no longer present Electronically Signed On 04-01-21 07:34:35 [employer] by Renaldo Mcleod
== END 2021-03-31 20:49 | disposition home or self-care (01) ==
LOC: ER 15:07
DX: R30.0 Dysuria (principal); I10 Essential (primary) hypertension; E11.9 Type 2 diabetes mellitus without complications; I50.9 Heart failure, unspecified; Z88.0 Allergy status to penicillin; Z88.1 Allergy status to other antibiotic agents; Z88.5 Allergy status to narcotic agent; Z88.8 Allergy status to other drugs, medicaments and biological substances; Z91.048 Other nonmedicinal substance allergy status
CPT/HCPCS: 36415; 51702; 71045; 80048; 80076; 81003; 81015; 83605; 83735; 83880; 84145; 84484; 85025; 85610; 87040; 87077; 87186; 87205; 93005; 99284

== ENCOUNTER 2021-07-17 15:31 | Emergency (ER) | payer OTHER ==
--- OUTSIDE RECORDS SUMMARY | 2021-07-17 15:53 | XMS REPORT | Continuity of Care Document ---
:1940 Author Organization [facility] t Address [address] [place] [address] Care Team Providers Name Role Phone JYOTI IKE Primary Care Physician Unavailable Doctor Unassigned, Name Attending Clinician Unavailable Anna [...] Unavailable Pob, Lab Main Attending Clinician Unavailable [facility] Attending Clinician Unavailable Umang Guerra Attending Clinician [facility]-Lab Attending Clinician Unavailable Only, Test Attending Clinician Unavailable Tracey Wild MD Attending Clinician Maico DOHERTY Attending Clinician Only, Bls Test Attending Clinician Unavailable Draw, Lab Attending Clinician Unavailable INDIA CARRASCO Attending Clinician Unavailable DALE FLORES Attending Clinician Unavailable Jose REAVES Admitting Clinician Unavailable Debra DOHERTY Admitting Clinician Jose Reaves MD Admitting Clinician Danilo DOHERTY Loreleiyuly Avendaño Admitting Clinician Tracey Wild MD Admitting Clinician SHALONDA Admitting Clinician Unavailable DANILOINDIA Admitting Clinician Unavailable Payers Payer Name Policy Type Policy Number Effective Date Expiration Date S ource [employer] MEDICARE [id number] 2017 ERS 00:00:00 [employer] MEDICARE [id number] 2018 ADV 00:00:00 Problems Condition Condition Condition Status Onset Resolution Last Treating Co mments Source Name Details Category Date Date Treatment Clinician Date Hypoglycem Hypoglycem Disease Active U nivers ia ia 1-16 ity of 00:00: [place] 00 Medical Branch UTI UTI Disease Active Univers (urinary (urinary 1-16 ity of tract tract 00:00: [place] infection) infection) 00 Me dical Branch Joint Joint Disease Active Univers effusion effusion 1-02 ity of of knee of knee 00:00: [place] 00 Medical Branch Systemic Systemic Disease Active 2020- Unive rs inflammato inflammato 2-17 it y of ry ry 00:00: [place] response response 00 Medica l syndrome syndrome Branch Hypertensi Hypertensi Disease Active 2020 U nivers ve urgency ve urgency 2-16 it y of 00:00: [place] 00 Medical Branch Leukocytos Leukocytos Disease Active 2020- U nivers is is 2-14 ity of 00:00: [place] 00 Medical Branch Acute Acute Disease Active 2020 Overview: Univer s anemia anemia 2-14 Added ity of 00:00: automatic [place] 00 ally from Medical request Branch for surgery [id number] Melena Melena Disease Active 2020 Overview: Univer s 2-14 Added ity of 00:00: automatic [place] 00 ally from Medical request Branch for surgery [id number] Vertebral Vertebral Disease Active 2020 Uni vers artery artery 0-13 ity of stenosis stenosis 00:00: [place] 00 Medical Branch S/P S/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 8-11 ity of repair repair 00:00: [place] 00 Medical Branch Acute Acute Disease Active 2019- [facility] blood loss blood loss 2-11 [facility] [facility] - anemia anemia 00:00: Medical 00 [place] Gout flare Gout flare Disease Active 2020-[address] [facility] Medical [facility] [place] COPD COPD Disease Active 2019- [facility] (chronic (chronic 2-11 [facility] - obstructiv obstructiv 00:00: Me dical e e 00 Center pulmonary pulmonary disease) disease) Gastroesop Gastroesop Disease Active 2020-[address] hageal hageal 2-11 [facility] - reflux reflux 00:00: Medical disease disease 00 Center with with esophagiti esophagiti s s HLD HLD Disease Active 2019- [facility] (hyperlipi (hyperlipi 2-11 [place] [facility] - demia) demia) 00:00: Medical 00 [place] Hypothyroi Hypothyroi Disease Active 2019-[address] dism dism 2-11 [facility] - 00:[facility]: Medical 00 [place] Coagulopat Coagulopat Disease Active 2020-[address] hy hy 2-11 [facility] - 00:00: Medical 00 [place] 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 00:00: Medica l 00 [place] Cerebral Cerebral Disease Active 2019-0 [facility] hypoperfus hypoperfus 2-05 [place] [facility] - ion ion 00:00: Medical 00 [place] Hypertensi Hypertensi Disease Active 2020-[address] ve crisis ve crisis 2-05 [facility] - 00:00: Medical 00 [place] Atrial Atrial Disease Active 2019- [facility] fibrillati fibrillati 2-04 [place] [facility] - on on 00:00: Medical [place] Hypertensi Hypertensi Disease Active 2020-[address] on on 2-04 [facility] Carotid Carotid Disease Active 2019-[address] [facility] stenosis, stenosis, 2-04 [facility] - left left 00:00: Medical 00 [place] Acute Acute Disease Active 2020-[address] [facility] ischemic ischemic 2-03 [facility] - stroke stroke 00:00: Medical 00 [place] RUE RUE Disease Active 2019-[address] [facility] weakness weakness 2-02 [facility] - 00:00: Medical [place] Post-op Post-op Disease Active 2015-04 Univers pain pain 2-21 ity of 00:00: [place] 00 Medical Branch Allergies, Adverse Reactions, Alerts Allergy Allergy Status Severity Reaction(s) Onset Inactive Treating Comm ents Source Name Type Date Date Clinician CEFTRIAX DRUG Active High Rash 2020-1 Univers ONE INGREDI 2-21 ity of 00:00: [place] 00 Medical Branch PENICILL DRUG Active High Rash 2020-1 Univers IN INGREDI 2-21 ity of 00:00: [place] 00 Medical Branch Penicill Drug Active Rash 2020-1 AGEP Univers in Allergy 2-21 ity of 00:00: [place] 00 Medical Branch Ceftriax Drug Active Rash 2020-1 AGEP Univers one Allergy 2-21 ity of 00:00: [place] 00 Medical Branch SILICONE DRUG Active Med Rash 2020-1 Univers INGREDI 2-17 ity of 00:00: [place] 00 Medical Branch PIPERACI DRUG Active High Rash 2020-1 Univers LLIN-ALEKSANDR 2-17 ity of OBACTAM 00:00: [place] 00 Medical Branch Piperaci Drug Active Rash 2020-1 AGEP Univers llin-Aleksandr Allergy 2-17 ity of obactam 00:00: [place] 00 [facility] Branch Meperidi Propensi Active Nausea And 2020-[address] [facility] ty to Vomiting 2-05 daughter [facility] - adverse 00:00: Medical reaction 00 Center s MEPERIDI Allergy Active N\\T\\V 2019-[address] [facility] NE 2-05 [facility] - 00:00: Medical 00 Center Amlodipi Propensi Active 2018- [facility] ne [...] 00 Center Baclofen Propensi Active Other (See 2017- [facility] ty to Comments) 2-25 [facility] - adverse 00:00: Medical reaction 00 Center s BACLOFEN Allergy Active High Other 2017- [facility] 2-25 [facility] - 00:00: Medical 00 Center PROPOXYP Allergy Active N\\T\\V 2016-[address] [facility] HENE 2-25 [facility] - [place] 00:00: Medical E 00 Center Propoxyp Propensi Active Nausea And 2017- [facility] he[facility] ty to Vomiting [...] Quit 4 years ago Uni versity of [facility] [place] [facility] Sex Assigned At Universit y of [facility] [place] [facility] Exposure to Not sure [facility] SARS-CoV-2 (event) [facility] [place] [facility] History of tobacco Smoker [facility] - use [facility] Center History SDOH [facility] - Alcohol Std Drinks Medica Center History SDOH [facility] - Alcohol Binge Medical [address] [facility] Alcohol intake 2020-04-18 2020-04-18 Current University of 00:00:00 00:00:00 non-drinker of [facility] alcohol [place] (finding) Tobacco use and 2020-04-18 2020-04-18 Never used Universit y of exposure 00:00:00 00:00:00 [facility] [place] [facility] Cigarettes smoked 2019-08-30 2019-08-[address] [facility] - current (pack per 00:00:00 00:00:00 Medical Center day) - Reported History SDOH 2019-03-31 2019-03-[address] [facility] - Alcohol Frequency 00:00:00 00:00:00 Medical Center Smoking Status Start Date Stop Date Source Former smoker 2020-04-18 00:00:00 2020-04-18 00:00:00 [facility] Medications Ordered Filled Start Stop Current Ordering Indication Dosage Frequency Signature Comments Components Source Medication Medication Date Date Medication? Clinician (SIG) Name Name colchicine Yes colchicine U nivers 0.6 mg 1-22 0.6 mg ity of tablet 03:27: tablet [address] levothyroxi Yes Synthroid U nivers ne 1-22 50 mcg ity of (SYNTHROID) 03:27: tablet [place] 50 [place] 31 [facility] colchicine Yes colchicine U nivers 0.6 mg 1-22 0.6 mg ity of tablet 03:27: tablet [address] levothyroxi Yes Synthroid U nivers ne 1-22 50 mcg ity of (SYNTHROID) 03:27: tablet [place] 50 mcg 31 [facility] colchicine Yes colchicine U nivers 0.6 mg 1-22 0.6 mg ity of tablet 03:27: tablet [address] levothyroxi Yes Synthroid U nivers ne 1-22 50 mcg ity of (SYNTHROID) 03:27: tablet [place] 50 mcg 31 [facility] furosemide Yes 40mg 40 mg, Unive rs (LASIX) 1-20 Oral, ity of tablet 40 23:30: DAILY, [place] mg 00 First dose Medical on Wed Branch 05/01/20 at 1730, Until Discontinu ed, Routine furosemide Yes [id number] 40mg Take 1 Univers 40 mg 1-20 tablet by ity of tablet 00:00: mouth [place] 00 daily. [facility] furosemide Yes [id number] 40mg Take 1 Univers 40 mg 1-20 tablet by ity of tablet 00:00: mouth [place] 00 daily. [facility] furosemide Yes [id number] 40mg Take 1 Univers 40 mg 1-20 tablet by ity of tablet 00:00: mouth [place] 00 daily. [facility] levoFLOXaci No 250mg 250 mg, U nivers n 1-18 01-20 Oral, Q24H ity of (LEVAQUIN) 05:00: 16:58 ABX, First [place] tablet 250 00 :18 dose on Medica l mg [place] Branch 04/28/20 at 2300, Until Discontinu ed, MANPREET
Re ason for Anti-Infec tive: Empiric Therapy for Suspected Infection< br>Empiric Therapy Site: Urine
D uration of therapy: 7 days ciprofloxac 2020- No [id number] 500mg Take 1 Univers in HCl 500 [...] Branch Piggyback last 750 mg reorder) on 04/27/20 at 2300, Until Discontinu ed, 150 mL
Reas on for Anti-Infec tive: Empiric Therapy for Suspected Infection< br>Empiric Therapy Site: Urine
D uration of therapy: 7 days melatonin Yes 9mg 9 mg, Univers (MELATIN) -17 Oral, QHS, ity of tablet 9 mg 03:00: First dose [place] 00 on Sat Medical 04/27/20 at Branch 2100, Until Discontinu [...] 00 First dose Medical (HumaLOG) + on Sat Branch Fsbg 04/27/20 at Testing 1200, Until Discontinu ed, Routine D5W 0.45% 2020-0 2020- No 1000mL at 100 Uni vers NaCl -16 01-18 mL/hr, ity of (1/2NS) IV 16:45: 16:30 1,000 mL, [place] infusion 00 :45 IV Medical 1,000 mL Infusion, Branch CONTINUOUS , Starting 04/27/20 at 1045, Until 04/29/20 at 1030, Routine losartan 2020-0 Yes 25mg 25 mg, Univers (COZAAR) 1-16 Oral, ity of tablet 25 15:00: DAILY, [place] mg 00 First dose Medical on [facility] Branch 04/27/20 at 0900, Until Discontinu ed, Routine aspirin 2020-0 Yes 81mg 81 mg, Univers chewable -16 Oral, ity of tablet 81 15:00: DAILY, [place] mg 00 First dose Medical on [facility] Branch 04/27/20 at 0900, Until Discontinu ed, Routine amLODIPine 0 Yes 10mg 10 mg, Unive rs (NORVASC) -16 Oral, ity of tablet 10 15:00: DAILY, [place] mg 00 First dose Medical on [facility] Branch 04/27/20 at 0900, Until Discontinu ed, Routine allopurinoL 0 Yes 100mg 100 mg, Un yudith (ZYLOPRIM) -16 Oral, ity of tablet 100 15:00: DAILY, [place] mg 00 First dose Medical on [facility] Branch 04/27/20 at 0900, Until Discontinu ed, Routine pantoprazol 0 Yes 40mg 40 mg, Univ ers e -16 Oral, BID, ity of (PROTONIX) 14:00: First dose [place] EC tablet 00 on [facility] Medical 40 mg 04/27/20 at Branch 0800, Until Discontinu ed, Routine gabapentin 2020-0 Yes 100mg 100 mg, Uni vers (NEURONTIN) 1-16 Oral, TID, it y of capsule 100 14:00: First dose [place] mg 00 on [facility] Medical 04/27/20 at Branch 0800, Until Discontinu ed, Routine levothyroxi 2020-0 Yes 25ug 25 mcg, Uni vers ne 1-16 Oral, ity of (SYNTHROID) 12:00: QAM-0600, [place] tablet 25 00 First dose Medi jayce mcg on Sat Branch 04/27/20 at [...] :00 Starting Medi jayce tablet 1 Sat [place] tablet 04/27/20 at 0110, Until 04/29/20 at 0109, Routine, Pain (scale 4-6) acetaminoph Yes 650mg 650 mg, Un yudith en 04-27 Oral, ity of (TYLENOL) 07:09: Q6HPRN, [place] tablet 650 49 Starting Medic al mg [...] 00 :00 dose, Fri Medical 04/26/20 at [place] 2245, MANPREET iohexol 2020- No 100mL 100 mL, Unive rs (OMNIPAQUE 04-27 Intravenou it y of 350 04:09: 04:15 s, ONCE, 1 [place] BULK-100 00 :00 dose, Fri Medica l mL) 04/26/20 at [place] injection 2215, 100 mL Routine levothyroxi Yes Synthroid U nivers ne 1-08 50 mcg ity of (SYNTHROID) 07:22: tablet [place] 50 mcg 29 Medical tablet [place] colchicine Yes colchicine U nivers 0.6 mg 1-08 0.6 mg ity of tablet 07:22: tablet [address] levothyroxi Yes Synthroid U nivers ne 1-08 50 mcg ity of (SYNTHROID) 07:22: tablet [place] 50 mcg 29 Medical tablet [place] colchicine Yes colchicine U nivers 0.6 mg 1-08 0.6 mg ity of tablet 07:22: tablet [address] levothyroxi Yes Synthroid U nivers ne 1-08 50 mcg ity of (SYNTHROID) 07:22: tablet [place] 50 mcg 29 Medical tablet [place] colchicine Yes colchicine U nivers 0.6 mg 1-08 0.6 mg ity of tablet 07:22: tablet [address] pantoprazol Yes 40mg 40 mg, Univ ers e 08 Oral, BID, ity of (PROTONIX) 02:00: First dose [place] EC tablet 00 on [facility] Medical 40 mg 04/18/20 at [place] 2000, Until Discontinu ed, Routine amLODIPine 2020- No [id number] 10mg Take 1 Univers 10 mg 04-19 tablet by ity of tablet 00:00: 04:59 mouth [place] 00 :00 daily for Medical 90 days. [place] amLODIPine 2020- No [id number] 10mg Take 1 Univers 10 mg 04-19- tablet by ity of tablet 00:00: 04:59 mouth [place] 00 :00 daily for Medical 90 days. [place] amLODIPine 2020- No [id number] 10mg Take 1 Univers 10 mg 04-19 tablet by ity of tablet 00:00: 04:59 mouth [place] 00 :00 daily for Medical 90 days. [place] amLODIPine 2020- No [id number] 10mg Take 1 Univers 10 mg 04-19 tablet by ity of tablet 00:00: 04:59 mouth [place] 00 :00 daily for Medical 90 days. [place] amLODIPine 2020- No [id number] 10mg Take 1 Univers 10 mg 04-19 tablet by ity of tablet 00:00: 04:59 mouth [place] 00 :00 daily for Medical 90 days. [place] amLODIPine 2020- No [id number] 10mg Take 1 Univers 10 mg 04-19 tablet by ity of tablet 00:00: 04:59 mouth [place] 00 :00 daily for Medical 90 days. [place] KCL 2020- No 20meq 20 mEq, Univers (KLOR-CON 04-18 Oral, ity of M20) tablet 20:45: 20:16 ONCE, 1 [place] 20 mEq 00 :00 dose, [facility] Medical 04/18/20 at [place] 1445, Routine magnesium 2020- No 4g 4 g, IV Univ ers sulfate in 04-18 Piggyback, it y of water 4 20:45: 21:22 ONCE, 1 [place] gram/50 mL 00 :00 dose, [place] Medi jayce (8 %) IV 04/18/20 at [place] Piggyback 4 1445, g Routine Sliding Yes Subcutaneo Univ ers Scale 1-07 us, TID, ity of Insulin - 20:00: First dose [place] Lispro 00 (after Medical (HumaLOG) + last Branch Fsbg modificati Testing on) on [facility] 04/18/20 at 1400, Until Discontinu ed, Routine losartan 2020- No losartan Univ ers 100 mg 04-18 100 mg ity of tablet 19:01: 00:00 tablet [place] 39 :00 Medical Branch gabapentin 2020- No 300mg 300 mg 3 U nivers [...] 00:00 [place] 39 :00 Medical Branch KCL 2020- No 40meq 40 mEq, IV Unive rs (POTASSIUM 04-18 Piggyback, it y of CHLORIDE) 18:15: 18:31 ONCE, 1 [place] 40 mEq in 00 :00 dose, [place] Medic al NaCl 0.9% 04/18/20 at [facility] h (NS) 1215, 250 piggyback mL pantoprazol No 40mg 40 mg, IV Univers e 04-18 Piggyback, ity of (PROTONIX) 14:00: 17:28 Q12H, [place] 40 mg in 00 :42 First dose Medic al NaCl 0.9% on [place] Branch (NS) 100 mL 04/18/20 at [place] 0800, Until Discontinu ed, 100 mL pantoprazol 2020- No [id number] 40mg Take 1 Univers e 40 mg EC 04-18 tablet by ity of tablet 00:00: 04:59 mouth 2 [place] 00 :00 (two) Medical times Branch daily for 90 days. losartan 25 2020- No [id number] 25mg Take 1 Univers mg tablet 04-18 tablet by ity of 00:00: 04:59 mouth [place] 00 :00 daily for Medical 90 days. Branch aspirin 81 2020- No [id number] 81mg Take 1 U nivers mg chewable 04-18 tablet by it y of tablet 00:00: 04:59 mouth [place] 00 :00 daily for Medical 90 days. Branch pantoprazol 2020- No [id number] 40mg Take 1 Univers e 40 mg EC 04-18 tablet by ity of tablet 00:00: 04:59 mouth 2 [place] 00 :00 (two) Medical times [place] daily for 90 days. losartan 25 2020- No [id number] 25mg Take 1 Univers mg tablet 04-18 tablet by ity of 00:00: 04:59 mouth [place] 00 :00 daily for Medical 90 days. Branch aspirin 81 2020- No [id number] 81mg Take 1 U nivers mg chewable 04-18 tablet by it y of tablet 00:00: 04:59 mouth [place] 00 :00 daily for Medical 90 days. Branch pantoprazol 2020- No [id number] 40mg Take 1 Univers e 40 mg EC 04-18 tablet by ity of tablet 00:00: 04:59 mouth 2 [place] 00 :00 (two) Medical times [place] daily for 90 days. losartan 25 2020- No [id number] 25mg Take 1 Univers mg tablet 04-18 tablet by ity of 00:00: 04:59 mouth [place] 00 :00 daily for Medical 90 days. Branch aspirin 81 2020- No [id number] 81mg Take 1 U nivers mg chewable 04-18 tablet by it y of tablet 00:00: 04:59 mouth [place] 00 :00 daily for Medical 90 days. Branch pantoprazol 2020- No [id number] 40mg Take 1 Univers e 40 mg EC 04-18 tablet by ity of tablet 00:00: 04:59 mouth 2 [place] 00 :00 (two) Medical times [place] daily for 90 days. losartan 25 2020- No [id number] 25mg Take 1 Univers mg tablet 04-18 tablet by ity of 00:00: 04:59 mouth [place] 00 :00 daily for Medical 90 days. Branch aspirin 81 2020- No [id number] 81mg Take 1 U nivers mg chewable 04-18 tablet by it y of tablet 00:00: 04:59 mouth [place] 00 :00 daily for Medical 90 days. Branch pantoprazol 2020- No [id number] 40mg Take 1 Univers e 40 mg EC 04-18 tablet by ity of tablet 00:00: 04:59 mouth 2 [place] 00 :00 (two) Medical times Branch daily for 90 days. losartan 25 2020- No [id number] 25mg Take 1 Univers mg tablet 04-18 tablet by ity of 00:00: 04:59 mouth [place] 00 :00 daily for Medical 90 days. Branch aspirin 81 2020- No [id number] 81mg Take 1 U nivers mg chewable 04-18 tablet by it y of tablet 00:00: 04:59 mouth [place] 00 :00 daily for Medical 90 days. Branch pantoprazol 2020- No [id number] 40mg Take 1 Univers e 40 mg EC 04-18 tablet by ity of tablet 00:00: 04:59 mouth 2 [place] 00 :00 (two) Medical times Branch daily for 90 days. losartan 25 2020- No [id number] 25mg Take 1 Univers mg tablet 04-18 tablet by ity of 00:00: 04:59 mouth [place] 00 :00 daily for Medical 90 days. Branch aspirin 81 2020- No [id number] 81mg Take 1 U nivers mg chewable 04-18 tablet by it y of tablet 00:00: 04:59 mouth [place] 00 :00 daily for Medical 90 days. Branch gabapentin 2020- No [id number] 100mg Take 1 Univers 100 mg 04-18 capsule by ity of capsule 00:00: 05:59 mouth 3 [place] 00 :00 (three) Medical times Branch daily for 30 days. magnesium 2020- No [id number] 400mg Take 1 Univers oxide 400 04-18 capsule by ity of mg 00:00: 05:59 mouth 2 [place] magnesium 00 :00 (two) Medical capsule times Branch daily for 30 days. gabapentin 2020- No [id number] 100mg Take 1 Univers 100 mg 04-18 capsule by ity of capsule 00:00: 05:59 mouth 3 [place] 00 :00 (three) Medical times Branch daily for 30 days. magnesium 2020- No [id number] 400mg Take 1 Univers oxide 400 04-18 capsule by ity of mg 00:00: 05:59 mouth 2 [place] magnesium 00 :00 (two) Medical capsule times Branch daily for 30 days. gabapentin 2020- No [id number] 100mg Take 1 Univers 100 mg 04-18 capsule by ity of capsule 00:00: 05:59 mouth 3 [place] 00 :00 (three) Medical times Branch daily for 30 days. magnesium 2020- No [id number] 400mg Take 1 Univers oxide 400 04-18 capsule by ity of mg 00:00: 05:59 mouth 2 [place] magnesium 00 :00 (two) Medical capsule times Branch daily for 30 days. gabapentin 2020- No [id number] 100mg Take 1 Univers 100 mg 04-18 capsule by ity of capsule 00:00: 05:59 mouth 3 [place] 00 :00 (three) Medical times Branch daily for 30 days. magnesium 2020- No [id number] 400mg Take 1 Univers oxide 400 04-18 capsule by ity of mg 00:00: 05:59 mouth 2 [place] magnesium 00 :00 (two) Medical capsule times Branch daily for 30 days. gabapentin 2020- No [id number] 100mg Take 1 Univers 100 mg 04-18 capsule by ity of capsule 00:00: 05:59 mouth 3 [place] 00 :00 (three) Medical times Branch daily for 30 days. magnesium 2020- No [id number] 400mg Take 1 Univers oxide 400 04-18 capsule by ity of mg 00:00: 05:59 mouth 2 [place] magnesium 00 :00 (two) Medical capsule times Branch daily for 30 days. gabapentin 2020- No [id number] 100mg Take 1 Univers 100 mg 04-18 capsule by ity of capsule 00:00: 05:59 mouth 3 [place] 00 :00 (three) Medical times Branch daily for 30 days. magnesium 2020- No [id number] 400mg Take 1 Univers oxide 400 04-18 capsule by ity of mg 00:00: 05:59 mouth 2 [place] magnesium 00 :00 (two) Medical capsule times Branch daily for 30 days. triamcinolo 1- No [id number] Apply to Univers ne 04-18 area(s) 2 ity of acetonide 00:00: 00:00 (two) [place] 0.1 % cream 00 :00 times Medical daily for Branch 90 days. KCL 2020- No 40meq 40 mEq, Univers (KLOR-CON 04-17 Oral, ity of M20) tablet 13:45: 21:35 ONCE, 1 [place] 40 mEq 00 :00 dose, Wed Medical 04/17/20 at Branch 0745, Routine sodium,pota 2020- No 117mL 117 mL, U nivers ssium,mag 04-16 Oral, Q12H ity of sulfates 19:00: 08:04 ABX, 2 [place] (SUPREP 00 :00 doses, Medical BOWEL PREP First dose Bra [facility] KIT) (after 17.5-3.- last .6 gram reorder) oral on Wed solution 04/16/20 at 117 mL 1300, Last dose on Wed04/17/20 at 0100, Routine colchicine Yes .6mg 0.6 mg, Univ ers (COLCRYS) 04-16 Oral, ity of tablet 0.6 15:00: DAILY, [place] mg 00 First dose Medical on Wed04/16/20 at 0900, Until Discontinu ed, Routine allopurinoL Yes 100mg 100 mg, Un yudith (ZYLOPRIM) 04-16 Oral, ity of tablet 100 15:00: DAILY, [place] mg 00 First dose Medical on Wed04/16/20 at 0900, Until Discontinu ed, Routine sodium,pota No 117mL 117 mL, U nivers ssium,mag 04-15 Oral, Q12H ity of sulfates 23:45: 15:15 ABX, 2 [place] (SUPREP 00 :00 doses, Medical BOWEL PREP First dose Bra [facility] KIT) on Mon 17.5-3.13-1 04/15/20 at .6 gram 1745, Last oral dose on solution Wed04/16/20 117 mL at 0545, Routine KCL 2020- No 40meq 40 mEq, Univers (KLOR-CON 04-14 Oral, ity of M20) tablet [...] Medical mg last Branch modificati on) on [facility] 04/11/20 at 2000, Until Discontinu ed, Routine pantoprazol 2020- No 40mg 40 mg, Uni vers e 04-12 Oral, BID, ity of (PROTONIX) 02:00: 22:20 First dose [place] EC tablet 00 :47 on [facility] Medical 40 mg 04/11/20 Branch at 2000, Until Discontinu ed, Routine amLODIPine 2019-04- No 5mg 5 mg, Unive rs (NORVASC) 04-11 Oral, ONCE ity of tablet 5 mg 23:00: 23:20 AT 1700, 1 [place] 00 :00 dose, [facility] Medical 04/11/20 Branch at 1700, Routine ondansetron 2019-04 Yes 4mg 4 mg, Unive rs (ZOFRAN) Oral, ity of tablet 4 mg 19:44: [id number], [place] 53 Starting Medical [facility] Branch 04/11/20 at 1344, Until Discontinu [...] ed, Routine phenol 2019-04- No 1{spray 1 [place], Uni vers (SORE 04-14 } Oral, TID, ity of THROAT 20:15: 14:09 First dose [place] (PHENOL)) 00 :11 on Wed Medical 1.4 % spray 04/10/20 Bran ch bottle 1 at 1415, [place] Until Discontinu ed, Routine acetaminoph 2019-04- No 650mg 650 mg, U nivers en 04-11 Enteral, ity of (TYLENOL) 17:30: 19:45 BID, First [place] tablet 650 00 :12 dose Medical mg (after Branch last modificati on) on Wed04/10/20 at 1130, Until Discontinu ed, Routine predniSONE 2019-04- No 40mg 40 mg, Univ ers (DELTASONE) [...] of IV infusion 08:15: 08:49 1,000 mL, [place] 1,000 mL 00 :00 IV Medical Infusion, Branch ONCE, 1 dose, Wed04/10/20 at 0215, Routine KCL 20 2019-04- No 40meq 40 mEq, Univer s mEq/15 mL 06-09 Oral, ity of solution 40 18:15: 02:37 ONCE, 1 [place] mEq 00 :00 dose, [facility] Medical 04/08/20 Branch at 1215, Routine magnesium [...] Medical 04/08/20 Branch at 0130, Routine sodium 2019-04 No IV Univers bicarbonate 06-08 Infusion, it y of 100 mEq in 20:45: 11:41 CONTINUOUS [place] D5W 1,000 00 :18 , Starting Medi jayce mL IV [place] Branch Solution 04/07/20 at 1445, Until 04/08/20 at 0541, 1,000 mL, at 100 mL/hr furosemide 2019-04 No 40mg 40 mg, Univ ers (LASIX) 06-08 Slow IV ity of injection 17:30: 18:07 Push, [place] 40 mg 00 :00 ONCE, 1 Medical dose, [facility] 04/07/20 at 1130, Routine KCL 2019-04 No 40meq 40 mEq, Univer s mEq/15 mL 06-08 Oral, Q4H, ity of solution 40 14:00: 18:07 2 doses, [place] mEq 00 :00 First dose Medical on [place] Branch 04/07/20 at 0800, Last dose on [place] 04/07/20 at 1200, Routine pantoprazol 2019-04 No [...] 1117, Routine, Pain (scale 1-3) FENTanyl PF 2019-04 2020- No 50ug 50 mcg, Un yudith (SUBLIMAZE 06-07 Slow IV ity o f (PF)) 03:41: 13:23 Push, [place] injection 31 :50 Q6HPRN, Medical 50 mcg Starting Branch Wed04/05/20 at 2141, Until Tu04/09/20 at 0723, Routine, Pain (scale 7-10) D5W IV 2019-04- No 1000mL at 100 Univer s infusion 06-06 12-27 mL/hr, IV ity o f 1,000 mL [...] No 60mL 60 mL, Unive rs (VISIPAQUE 06-05 Injection, it y of 320-50 mL) 20:45: 20:38 ONCE, 1 [place] injection 00 :00 dose, Jyoti Medic al 60 mL 04/04/20 Branch at 1445, Routine FENTanyl PF 2019-04 Slow IV Un yudith (SUBLIMAZE 06-05 Push, PRN, it y of (PF)) 18:57: 20:35 Starting [place] injection 53 :04 [facility]oti Medical 04/04/20 Branch at 1257, Until [facility] 04/04/20 at 1435, Routine midazolam 2019-04- No IV Push, Uni vers (VERSED) 06-05- PRN, ity of injection 18:57: 20:34 Starting [place] 38 :58 Jyoti [facility] 04/04/20 Branch at 1257, Until [facility] 04/04/20 at 1434, Routine lactated 2019-04- No 1000mL at 125 Univ ers ringers IV 2-04 04- mL/hr, ity of infusion 18:15: 17:41 1,000 mL, [place] 1,000 mL 00 :00 Intravenou Medic al s, ONCE, 1 Branch dose, [facility] 04/04/20 at 1215, Routine lactated 2019-04- No 500mL at 999 Unive rs ringers IV -04 04- mL/hr, 500 it y of infusion 09:15: 08:23 mL, IV [place] 500 mL 00 :00 Infusion, Medical ONCE, 1 Branch dose, [facility] 04/04/20 at 0315, STAT KCL 2019-04 No 40meq 40 mEq, IV Unive rs (POTASSIUM 06-05 Piggyback, it y of CHLORIDE) 09:15: 10:04 ONCE, 1 [place] 40 mEq in 00 :00 dose, [facility] Medic al NaCl 0.9% 04/04/20 Branch (NS) at 0315, piggyback 250 mL hydrALAZINE 2019-04 No 50mg 50 mg, Uni vers (APRESOLINE 06-05 Oral, TID, i ty of ) tablet 50 04:00: 08:14 First dose [place] mg 00 :29 on [facility] 04/03/20 Branch at 2200, Until Discontinu ed, Routine lactated 2019-04 2020- No 500mL at 999 Unive rs ringers IV 06-04- mL/hr, 500 it y of infusion 13:45: 13:31 mL, IV [place] 500 mL 00 :00 Infusion, Medical ONCE, 1 Branch dose, [facility] 04/03/20 at 0745, STAT NaCl 0.9% 2019-04- No CONTINUOUS U nivers (NS) IV 06-03 PRN, ity of infusion 23:05: 23:52 Starting [place] 00 :52 Tue Medical 04/02/20 Branch at 1705, Until Discontinu ed, Routine, Intra-op lidocaine 2019-04 ONCE INTRA U nivers 1% 06-03 PROCEDURE, ity of (XYLOCAINE) 22:55: 23:52 Starting [place] 100 mg/10 00 :52 Tue Medical mL (1 %) 04/02/20 Branch injection at 1655, Until Discontinu ed, Routine, Intra-op propofoL IV 2019-04 Intravenou Univers infusion 06-03 s, ONCE ity of 22:55: 23:52 INTRA [place] 00 :52 PROCEDURE, Medical Starting Branch 04/02/20 at 1655, Until Discontinu ed, Routine, Intra-op metoclopram 2019-04 10mg 10 mg, IV Univers yumi HCl [...] ch (NS) 500 mL , Starting infusion e 04/02/20 at 1430 lactated 2019-04 No 1000mL at 999 Univ ers ringers IV 06-03 mL/hr, ity of infusion 18:30: 19:15 1,000 mL, [place] 1,000 mL 00 :00 Intravenou Medic al s, ONCE, 1 Branch dose, Tu04/02/20 at 1230, Routine baclofen 10 2019-04- No baclofen U nivers mg tablet 06-03 10 mg ity of 15:45: 00:00 tablet [...] Branch 04/01/20 at 1045, Routine NaCl 0.9% 2019-04 2020- No 1000mL at 125 Uni vers (NS) IV 06-02 12-21 mL/hr, IV ity of infusion 16:00: 15:14 Infusion, [place] 1,000 mL 00 :00 ONCE, 1 Medical dose, [facility] 04/01/20 at 1000, Routine NaCl 0.9% 2019-04- No 1000mL at 125 Uni vers (NS) IV 06-01 12-20 mL/hr, IV ity of infusion 19:46: 20:05 Infusion, [place] 1,000 mL 00 :00 ONCE, 1 Medical dose, [facility] 03/31/20 at 1400, Routine amLODIPine 2019-04- No 10mg 10 mg, Univ ers (NORVASC) 06-01 Oral, ity of tablet 10 15:00: 14:11 DAILY, [place] mg 00 :06 First dose Medical on [facility] 03/31/20 at 0900, Until Discontinu ed, Routine atorvastati 2019-04 Yes 80mg 80 mg, Univ ers n (LIPITOR) -20 Oral, QHS, it y of tablet 80 03:00: First dose [place] mg 00 on [facility] 03/30/20 Branch at 2100, Until Discontinu ed, Routine gabapentin 2019-04- No 300mg 300 mg, Un yudith (NEURONTIN) 06-01 Oral, BID, i ty of capsule 300 02:00: 06:27 First dose [place] mg 00 :49 on [facility] 03/30/20 Branch at 2000, Until Discontinu ed, Routine carvediloL 2019-04- No 12.5mg 12.5 mg, Univers (COREG) 05-31 Oral, BID ity of tablet 12.5 23:00: 14:11 MEALS, [place] mg 00 :06 First dose Medical on [facility] 03/30/20 at 1700, Until Discontinu ed, Routine hydrALAZINE 2019-04- No 100mg 100 mg, U nivers (APRESOLINE 05-31 Oral, Q8H, i ty of ) tablet 20:00: 14:11 First dose [place] 100 mg 00 :06 on [facility] 03/30/20 Branch at 1400, Until Discontinu ed, Routine NaCl 0.9% 2019-04 2020- No 1000mL at 125 Uni vers (NS) IV 05-31 12- mL/hr, IV ity of infusion 14:45: 15:12 Infusion, [place] 1,000 mL 00 :00 ONCE, 1 Medical dose, [facility] 03/30/20 at 0845, Routine gabapentin 2019-04- No 300mg 300 mg, Un yudith (NEURONTIN) 05-31 Oral, BID, i ty of 250 mg/5 mL 02:00: 17:51 First dose [place] solution 00 :44 on Fri Medical 300 mg 03/29/20 Branch at 2000, Until Discontinu ed, Routine hydrALAZINE 2019-04- No [...] 00 :44 First dose Medical suspension on [facility] Branch 12.5 mg 03/29/20 at 0800, Until Discontinu ed, Routine NaCl 0.9% 2019-04- No 1000mL at 125 Uni vers (NS) IV 05-30 mL/hr, IV ity of infusion 13:30: 15:37 Infusion, [place] 1,000 mL 00 :00 ONCE, 1 Medical dose, [facility] Branch 03/29/20 at 0730, Routine triamcinolo 2019-04 Yes Topical, Un yudith ne 05-30 BID, First ity of acetonide 02:00: dose on [place] (TRIDERM) 00 Jyoti Medical 0.1 % cream 03/28/20 Bran ch at 2000, Until Discontinu ed, Routine nystatin 2019-04 2020- No Topical, Univ ers (NYSTOP) 05-30 BID, First ity of powder 02:00: 13:16 dose on [place] 00 :04 [facility] Medical 03/28/20 Branch at 2000, Until Discontinu ed, Routine NaCl 0.9% 2019-04- No IV Univers (NS) 1000 05-29 Infusion, ity of mL + KCL 40 17:30: 21:43 at 125 [place] mEq 00 :00 mL/hr, Medical ONCE, 1 Branch dose, [facility] 03/28/20 at 1130, Routine magnesium 2019-04- No 2g 2 g, IV Univ ers sulfate in 05-29 Piggyback, it y of water 2 15:45: 23:55 ONCE, 1 [place] gram/50 mL 00 :00 dose, [facility] Medi jayce (4 %) 03/28/20 Branch infusion 2 at 0945, g Routine labetaloL 2019-04- No 20mg 20 mg, Unive rs (NORMODYNE) 05-29 Slow IV ity of injection 06:30: 06:07 Push, [place] 20 mg 00 :00 ONCE, 1 Medical dose, [facility] 03/28/20 at 0030, Routine ondansetron 2019-04- No 4mg 4 mg, Slow Univers (ZOFRAN 05-29 IV Push, ity of (PF)) 05:11: 19:45 Q6HPRN, [place] injection 4 43 :12 Starting Medi jayce mg [facility] 03/27/20 at 2311, Until [facility] 04/11/20 at 1345, Routine, Nausea and Vomiting (N/V) hydrOXYzine 2019-04- No 5mg 5 mg, Univ ers (ATARAX) 05-29 Oral, Q6H, ity of tablet 5 mg 00:00: 13:31 First dose [place] 00 :43 on [facility] Medical 03/27/20 Branch at 1800, Until Discontinu ed, Routine carvediloL 2019-04- No 12.5mg 12.5 mg, Univers (COREG) 05-28 Oral, BID ity of tablet 12.5 23:00: 13:31 MEALS, [place] mg 00 :43 First dose Medical on [facility] Branch 03/27/20 at 1700, Until Discontinu ed, Routine barium 2019-04- No 20mL 20 mL, Univers sulfate 05-28 Oral, ity of (LIQUID E-Z 22:27: 22:27 ONCE, 1 Jose GREEN) 60 % 00 :00 dose, Wed Med ical (w/v) oral 03/27/20 Branc h suspension at 1645, 20 mL Routine barium 2019-04- No 5mL 5 mL, Univers sulfate-NO 05-28 Oral, ity of CHARGE- 22:27: 22:45 ONCE, 1 [place] (VARIBAR 00 :00 dose, Wed Medica l PUDDING) 40 03/27/20 Bran ch % (w/v), at 1645, 30% (w/w) Routine oral paste 5 mL barium 2019-04- No 10mL 10 mL, Univers sulfate-NO 05-28 Oral, ity of CHARGE- 22:27: 22:27 ONCE, 1 [place] (VARIBAR 00 :00 dose, Wed Medica l NECTOR) 40 03/27/20 Branc h % (w/v) at 1645, oral Routine suspension 10 mL cefTRIAXone 2019-04 No 1000mg 1,000 mg, Univers (ROCEPHIN) 05-28 IV ity of 1,000 mg in 20:15: 16:23 Piggyback, [place] NaCl 0.9% 00 :26 Q24H ABX, Medic al (NS) 50 mL First dose Bra nch MINI-BAG on Wed03/27/20 at 1415, Until Discontinu ed, 50 mL
Reas on for Anti-Infec tive: Documented Infection< br>Documen shira Infection Site: Urine<br&g t;Duration of Therapy: 7 days colchicine 2019-04 Yes colchicine U nivers 0.6 mg 2-16 0.6 mg ity of tablet 19:04: tablet [address] cloNIDine 2019-04 Yes clonidine Uni vers 0.1 mg -16 HCl 0.1 mg ity of tablet 19:04: tablet [address] amLODIPine 2019-04- No 10mg 10 mg, Univ [...] dose [place] mg 00 :45 on [facility] 03/26/20 Branch at 2100, Until Discontinu ed, Routine metoprolol 2019-04- No 50mg 50 mg, Univ ers tartrate 05-28 Oral, BID, ity of (LOPRESSOR) 02:00: 12:05 First dose [place] tablet 50 00 :09 (after Medical mg modificati on) on Wed03/26/20 at 2000, Until [...] mg 00 :43 First dose Medical on [facility] Branch 03/26/20 at 0900, Until Discontinu ed, Routine allopurinoL 2019-04 No 100mg 100 mg, U nivers (ZYLOPRIM) 05-27 Oral, ity of tablet 100 15:00: 13:57 DAILY, [place] mg 00 :17 First dose Medical on [facility] 03/26/20 at 0900, Until Discontinu ed, Routine amLODIPine 2019-04- No 5mg 5 mg, Unive rs (NORVASC) 05-27 Oral, ity of tablet 5 mg 15:00: 23:13 DAILY, [place] 00 :29 First dose Medical on [facility] 03/26/20 at 0900, Until Discontinu ed, Routine KCL 2019-04 No 40meq 40 mEq, Univers (KLOR-CON 05-27 Oral, ity of M20) tablet 14:41: 16:27 ONCE, 1 [place] 40 mEq 00 :00 dose, [facility] Medical 03/26/20 Branch at 0845, Routine fluconazole 2019-04 No 150mg 150 mg, U nivers (DIFLUCAN) 05-27 Oral, ity of tablet 150 14:30: 16:26 Q72H, 2 [place] mg 00 :33 doses, Medical First dose Branch on Wed03/26/20 at 0830, Last dose on Wed03/29/20 at 0830, MANPREET
Re ason for Anti-Infec tive: Documented Infection< br>Documen shira Infection Site: Pelvic
Duration of Therapy: Other (see Comments) piperacilli 2019-04 No 3.375g 3.375 g, Univers n-tazobacta 05-27 IV ity of m (ZOSYN) 14:30: 19:06 Piggyback, [place] 3.375 g in 00 :52 Q6H ABX, Medic al NaCl 0.9% First dose Bran ch (NS) 100 mL on MINI-BAG 03/26/20 at 0830, Until Discontinu ed, 100 mL
[place] for Anti-Infec tive: Documented Infection< br>Documen shira Infection Site: Urine<br&g t;Duration of Therapy: 7 days Sliding 2019-04- No Subcutaneo Uni vers Scale 05-27 us, TID ity of Insulin - 14:00: [...] (after Medical last Branch modificati on) on 03/26/20 at 0800, Until Discontinu ed, Routine gabapentin 2019-04- No 300mg 300 mg, Un yudith (NEURONTIN) 05-27 Oral, TID, i ty of capsule 300 14:00: 13:31 First dose [place] mg 00 :44 on [facility] 03/26/20 Branch at 0800, Until Discontinu ed, Routine metoprolol 2019-04- No 25mg 25 mg, Univ ers tartrate 05-2715 Oral, BID, ity of (LOPRESSOR) 14:00: 23:13 First dose [place] tablet 25 00 :29 on [facility] Medical mg 03/26/20 Branch at 0800, Until Discontinu ed, Routine oxybutynin 2019-04- No 5mg 5 mg, Unive rs chloride 05-2715 Oral, BID, ity of (DITROPAN) 14:00: 14:42 First dose [place] tablet 5 mg 00 :29 on [facility]ica l 03/26/20 Branch at 0800, Until Discontinu ed, Routine levothyroxi 2019-04- No 50ug 50 mcg, Un yudith ne 05-27 Oral, ity of (SYNTHROID) 12:00: 19:45 QAM-0600, [place] tablet 50 00 :12 First dose Medi jayce mcg on Branch 03/26/20 at 0600, Until Discontinu ed, Routine ticagrelor 2019-04- No 90mg 90 mg, Univ ers (BRILINTA) 2-15 12- Oral, BID, it y of tablet 90 04:15: 14:16 First dose [place] mg 00 :38 on [facility] 03/25/20 Branch at 2215, Until Discontinu ed, Routine hydrALAZINE 2019-04 No 50mg 50 mg, Uni vers (APRESOLINE 2-15 12-15 Oral, TID, i ty of ) tablet 50 04:15: 11:45 First dose [place] mg 00 :08 on [facility] 03/25/20 Branch at 2215, Until Discontinu ed, Routine losartan 2019-04 Yes losartan Unive rs 100 mg 2-15 100 mg ity of tablet 04:04: tablet [address] levothyroxi 2019-04 Yes Synthroid U nivers ne 2-15 50 mcg ity of (SYNTHROID) 04:04: tablet [place] 50 mcg 43 Medical tablet Branch gabapentin 2019-04 Yes 300mg 300 mg 3 Un yudith 100 mg 2-15 (three) ity of capsule 04:04: times [place] [id number] daily. Medical Branch colchicine 2019-04 Yes colchicine U nivers 0.6 mg 2-15 0.6 mg ity of tablet 04:04: tablet [address] cloNIDine 2019-04 Yes clonidine Uni vers 0.1 mg 2-15 HCl 0.1 mg ity of tablet 04:04: tablet [address] azilsartan 2019-04 Yes 80mg Take 80 mg U nivers 80 mg Tab 2-15 by mouth. ity o f 04:04: [address] losartan 2019-04 Yes losartan Unive rs 100 mg 2-15 100 mg ity of tablet 04:04: tablet [address] levothyroxi 2019-04 Yes Synthroid U nivers ne 2-15 50 mcg ity of (SYNTHROID) 04:04: tablet [place] 50 mcg 43 Medical tablet Branch gabapentin 2019-04 Yes 300mg 300 mg 3 Un yudith 100 mg 2-15 (three) ity of capsule 04:04: times [place] 43 daily. Medical Branch azilsartan 2019-04 Yes 80mg Take 80 mg U nivers 80 mg Tab 2-15 by mouth. ity o f 04:04: [address] traMADoL 50 2019-04- No tramadol U nivers mg tablet 2-15 12-14 50 mg ity of 04:04: 00:00 tablet [place] 43 :00 Take 1 Medical tablet Branch every 8 hours by oral route for 10 days. torsemide 2019-04 20mg Take 20 mg U nivers 20 mg - 12-14 by mouth. ity of tablet 04:04: 00:00 [place] 43 :00 Medical Branch PARoxetine 2019-04- No paroxetine Univers 10 mg -26 03-14 10 mg ity of tablet 04:04: 00:00 tablet [place] 43 :00 Medical Branch omeprazole- 2019-04- No omeprazole Univers sodium -26 03-14 40 ity of bicarbonate 04:04: 00:00 mg-sodium [place] 40-1.1 43 :00 bicarbonat Medical mg-gram per e 1.1 gram Br anch capsule capsule nebivoloL 2019-04 20mg Take 20 mg U nivers 10 mg -26 03-14 by mouth. ity of tablet 04:04: 00:00 [place] 43 :00 Medical Branch metoprolol 2019-04- No metoprolol Univers tartrate 05-27 tartrate ity of 100 mg 04:04: 00:00 100 mg [place] tablet 43 :00 tablet Medical Branch metFORMIN 2019-04- 500mg Take 500 Un yudith 500 mg -15 -14 mg by ity of tablet 04:04: 00:00 mouth. [place] 43 :00 Medical Branch labetaloL 2019-04- No labetalol Un yudith 200 mg -26 03-14 200 mg ity of tablet 04:04: 00:00 tablet [place] 43 :00 Medical Branch furosemide 2019-04- No furosemide Univers 20 mg -15 -14 20 mg ity of tablet 04:04: 00:00 tablet [place] 43 :00 Medical Branch doxepin 25 2019-04- 25mg Take 25 mg Univers mg capsule 05-27-14 by mouth. ity of 04:04: 00:00 [place] 43 :00 Medical Branch amLODIPine 2019-04- No amlodipine Univers 2.5 mg -26 03-14 2.5 mg ity of tablet 04:04: 00:00 tablet [place] 43 :00 Medical Branch ALPRAZolam 2019-04- No alprazolam Univers 0.5 mg -26 03-14 0.5 mg ity of tablet 04:04: 00:00 tablet [place] 43 :00 Medical Branch albuterol 2019-04 2020- No 2{puff} Inhale 2 Univers 90 2-15 12-14 Puffs. ity of mcg/actuati 04:04: 00:00 [place] on inhaler 43 :00 Medical Branch acetaminoph 2019-04 2020- No 650mg 650 mg, U nivers en 2-15 04-06 Oral, ity of (TYLENOL) 04:03: 15:00 Q6HPRN, [facility] s tablet 650 46 :42 Starting Medic al mg Mon Branch 03/25/20 at 2203, Until 04/06/20 at 0900, Routine, Pain (scale 1-3) aspirin EC 2019-04 Yes 81mg 81 mg, Unive rs tablet 81 0-15 Oral, ity of mg 14:00: DAILY, First dose Medical on Jyoti Branch 01/25/20 at 0900, Until Discontinu ed, Routine aspirin 81 2019-04 Yes [id number] 81mg Take 1 Univers mg EC 0-15 tablet by ity of tablet 00:00: mouth [place] 00 daily. Medical Branch aspirin 81 2019-04 Yes [id number] 81mg Take 1 Univers mg EC 0-15 tablet by ity of tablet 00:00: mouth 00 daily. Medical Branch aspirin 81 2019-04 2020- No [id number] 81mg Take 1 Univers mg EC 0-15 [...] 0-14 by mouth. ity of tablet 17:00: [address] metoprolol 2019-04 Yes metoprolol U nivers tartrate 0-14 tartrate ity of 100 mg 17:00: 100 mg [place] tablet 03 tablet [facility] metFORMIN 2019-04 Yes 500mg Take 500 Uni vers 500 mg 0-14 mg by ity of tablet 17:00: mouth. [address] losartan 2019-04 Yes losartan Unive rs 100 mg 0-14 100 mg ity of tablet 17:00: tablet [address] levothyroxi 2019-04 Yes Synthroid U nivers ne 0-14 50 mcg ity of (SYNTHROID) 17:00: tablet [place] [address] [place] [address] labetaloL 2019-04 Yes labetalol Uni vers 200 mg 0-14 200 mg ity of tablet 17:00: tablet [address] gabapentin 2019-04 Yes gabapentin U nivers 100 mg 0-14 100 mg ity of capsule 17:00: capsule [address] furosemide 2019-04 Yes furosemide U nivers 20 mg 0-14 20 mg ity of tablet 17:00: tablet [address] doxepin 25 2019-04 Yes 25mg Take 25 mg U nivers mg capsule 0-14 by mouth. ity of 17:00: [address] colchicine 2019-04 Yes colchicine U nivers 0.6 mg 0-14 0.6 mg ity of tablet 17:00: tablet [address] cloNIDine 2019- Yes clonidine Uni vers 0.1 mg 0-14 HCl 0.1 mg ity of tablet 17:00: tablet [address] baclofen 10 2019-04 Yes baclofen Un yudith mg tablet 0-14 10 mg ity of 17:00: tablet [address] azilsartan 2019-04 Yes 80mg Take 80 mg U nivers 80 mg Tab 0-14 by mouth. ity o f 17:00: [address] amLODIPine 2019-04 Yes amlodipine U nivers 2.5 mg 0-14 2.5 mg ity of tablet 17:00: tablet [address] ALPRAZolam 2019-04 Yes alprazolam U nivers 0.5 mg 0-14 0.5 mg ity of tablet 17:00: tablet [address] albuterol 2019-04 Yes 2{puff} Inhale 2 U nivers 90 0-14 Puffs. ity of mcg/actuati 17:00: [place] on inhaler [facility] traMADoL 50 2019-04 Yes tramadol Un yudith mg tablet 0-14 50 mg ity of 17:00: tablet [place] Take 1 Medical tablet Branch every 8 hours by oral route for 10 days. torsemide 2019-04 Yes 20mg Take 20 mg Un yudith 20 mg 0-14 by mouth. ity of tablet 17:00: [address] PARoxetine 2019-04 Yes paroxetine U nivers 10 mg 0-14 10 mg ity of tablet 17:00: tablet [address] omeprazole- 2019-04 Yes omeprazole Univers sodium 0-14 40 ity of bicarbonate 17:00: mg-sodium [place] 40-1.1 03 bicarbonat Medical mg-gram per e 1.1 gram Br anch capsule capsule nebivoloL 2019-04 Yes 20mg Take 20 mg Un yudith 10 mg 0-14 by mouth. ity of tablet 17:00: [address] metoprolol 2019-04 Yes metoprolol U nivers tartrate 0-14 tartrate ity of 100 mg 17:00: 100 mg [place] tablet tablet [facility] Branch metFORMIN 2019-04 Yes 500mg Take 500 Uni vers 500 mg 0-14 mg by ity of tablet 17:00: mouth. [address] losartan 2019-04 Yes losartan Unive rs 100 mg 0-14 100 mg ity of tablet 17:00: tablet [address] levothyroxi 2019-04 Yes Synthroid U nivers ne 0-14 50 mcg ity of (SYNTHROID) 17:00: tablet [place] 50 mcg [facility] Branch labetaloL 2019-04 Yes labetalol Uni vers 200 mg 0-14 200 mg ity of tablet 17:00: tablet [address] gabapentin 2019-04 Yes gabapentin U nivers 100 mg 0-14 100 mg ity of capsule 17:00: capsule [address] furosemide 2019- Yes furosemide U nivers 20 mg 0-14 20 mg ity of tablet 17:00: tablet [address] doxepin 25 2019-04 Yes 25mg Take 25 mg U nivers mg capsule 0-14 by mouth. ity of 17:00: [address] colchicine 2019- Yes colchicine U nivers 0.6 mg 0-14 0.6 mg ity of tablet 17:00: tablet [address] cloNIDine 2019- Yes clonidine Uni vers 0.1 mg 0-14 HCl 0.1 mg ity of tablet 17:00: tablet [address] baclofen 10 2019-04 Yes baclofen Un yudith mg tablet 0-14 10 mg ity of 17:00: tablet [address] azilsartan 2019-04 Yes 80mg Take 80 mg U nivers 80 mg Tab 0-14 by mouth. ity o f 17:00: [address] amLODIPine 2019-04 Yes amlodipine U nivers 2.5 mg 0-14 2.5 mg ity of tablet 17:00: tablet [address] ALPRAZolam 2019-04 Yes alprazolam U nivers 0.5 mg 0-14 0.5 mg ity of tablet 17:00: tablet [address] albuterol 2019-04 Yes 2{puff} Inhale 2 U nivers 90 0-14 Puffs. ity of mcg/actuati 17:00: [place] on inhaler [address] [place] [address] aspirin 325 2019-04 2020- No 325mg Take 325 Univers mg tablet 0-14 10-14 mg by ity of 16:13: 00:00 mouth. [place] [address] :00 [facility] warfarin 5 2019-04 2020- No warfarin 5 Univers mg tablet 0-14 10-14 mg tablet ity of 16:13: 00:00 [place] [address] :[address] [place] [address] torsemide 2019-04 2020- No 10mg Take 10 mg U nivers 10 mg 0-14 10-14 by mouth. ity of tablet 16:13: 00:00 [place] 41 :00 [facility] ticagrelor 2019-04 2020- No 90mg Take 90 mg Univers 90 mg 0-14 10-14 by mouth. ity of tablet 16:13: 00:00 [place] [address] :00 [facility] rivaroxaban 2019-04 2020- No Xarelto 20 Univers (XARELTO) 0-14 10-14 mg tablet ity of 20 mg 16:13: 00:00 [place] tablet :00 [facility] ranitidine 2019-04 2020- No 150mg Take 150 U nivers 150 mg 0-14 10-14 mg by ity of capsule 16:13: 00:00 mouth. [place] 41 :00 [facility] Branch Nebivolol 2019-04 2020- No Bystolic Uni vers (BYSTOLIC) 0-14 10-14 20 mg ity of 20 mg 16:13: 00:00 tablet [place] tablet 41 :00 Medical Branch metroNIDAZO 2019-04 2020- No metronidaz Univers LE 500 mg 0-14 10-14 ole 500 mg ity of tablet 16:13: 00:00 tablet [place] 41 :00 [facility] Branch losartan-hy 2019-04 2020- No losartan U nivers drochloroth 0-14 10-14 100 ity of iazide 16:13: 00:00 mg-hydroch [place] 100-12.5 mg 41 :00 lorothiazi Me dical per tablet de 12.5 mg Bra nch tablet hydrALAZINE 2019-04- No hydralazin Univers 50 mg 0-14 10-14 e 50 mg ity of tablet 16:13: 00:00 tablet [place] 41 :00 [facility] gabapentin 2019-04- No 300mg Take 300 U nivers 300 mg 0-14 10-14 mg by ity of capsule 16:13: 00:00 mouth. [place] 41 :00 [facility] ciprofloxac 2019-04 2020- No ciprofloxa Univers in HCl 500 0-14 -14 bella 500 mg it y of mg tablet 16:13: 00:00 tablet [place] 41 :00 [facility] allopurinoL 2019-04 2020- No allopurino Univers 300 mg 0-14 10-14 l 300 mg ity of tablet 16:13: 00:00 tablet [place] 41 :00 [facility] allopurinoL 2019-04 2020- No allopurino Univers 100 mg 0-14 10-14 l 100 mg ity of tablet 16:13: 00:00 tablet [place] 41 :00 [facility] atorvastati 2019-04 Yes 80mg 80 mg, Univ ers n (LIPITOR) 0-14 Oral, ity of tablet 80 14:00: DAILY, [place] mg 00 First dose Medical on Wed01/24/20 at 0900, Until Discontinu ed, Routine amLODIPine 2019-04 Yes 5mg 5 mg, Univer s (NORVASC) 0-14 Oral, ity of tablet 5 mg 14:00: DAILY, [place] 00 First dose Medical on Wed Branch 10/14/20 at 0900, Until Discontinu ed, Routine allopurinoL 2019-04 Yes 100mg 100 mg, Un yudith (ZYLOPRIM) 0-14 Oral, ity of tablet 100 14:00: DAILY, [place] mg 00 First dose Medical on Wed01/24/20 at 0900, Until Discontinu ed, Routine aspirin 2019-04- No 325mg 325 mg, Unive rs tablet 325 0-14 10-14 Oral, ity of mg 14:00: 15:41 DAILY, [place] 00 :27 First dose Medical on Wed01/24/20 at 0900, Until Discontinu ed, Routine labetaloL 2019-04 Yes 10mg 10 mg, Univer s (NORMODYNE) 0-14 Slow IV ity o f injection 09:37: Push, [place] 10 mg 46 Q6HPRN, Medical Starting Branch Wed01/24/20 at 0437, Until Discontinu ed, Routine, SPB > 160 acetaminoph 2019-04 Yes 650mg 650 mg, Un yudith en 0-14 Oral, ity of (TYLENOL) 04:05: Q6HPRN, [place] tablet 650 38 Starting Medic al mg [facility] 01/23/20 at 2305, Until Discontinu ed, Routine, Pain (scale 1-3) ticagrelor 2019-04 Yes 90mg 90 mg, Unive rs (BRILINTA) 0-14 Oral, BID, ity of tablet 90 01:00: First dose [place] mg 00 on [facility] 01/23/20 Branch at 1999, Until Discontinu ed, Routine ticagrelor 2019-04- No 90mg 90 mg, Univ ers (BRILINTA) 0-14 10-13 Oral, BID, it y of tablet 90 01:00: 15:21 First dose [place] mg 00 :25 on [facility] 01/23/20 Branch at 1999, Until Discontinu ed, Routine ticagrelor 2019-04 Yes [id number] 90mg Take 1 Univers 90 mg 0-14 tablet by ity of tablet 00:00: mouth 2 [place] (two) Medical times [place] daily. ticagrelor 2019-04 Yes [id number] 90mg Take 1 Univers 90 mg 0-14 tablet by ity of tablet 00:00: mouth 2 [place] (two) Medical times Branch daily. ticagrelor 2019-04 Yes [id number] 90mg Take 1 Univers 90 mg 0-14 tablet by ity of tablet 00:00: mouth 2 [place] 00 (two) Medical times Branch daily. ticagrelor 2019-04 Yes [id number] 90mg Take 1 Univers 90 mg 0-14 tablet by ity of tablet 00:00: mouth 2 [place] 00 (two) Medical times Branch daily. ticagrelor 2019-04- No [id number] 90mg Take 1 [facility] 90 mg 0-14 -07 tablet by ity of tablet 00:00: 00:00 mouth 2 [place] 00 :00 (two) Medical times Branch daily. enoxaparin 2019-04 Yes 40mg 40 mg, Unive rs (LOVENOX) 0-13 Subcutaneo ity of injection 22:45: [place], DAILY, [place] 40 mg 00 First dose Medical on Wed Branch 01/23/20 at 1745, Until Discontinu ed, Routine aspirin 325 2019-04 Yes 325mg Take 325 U nivers mg tablet 0-13 mg by ity of 19:23: mouth. [address] warfarin 5 2019-04 Yes warfarin 5 U nivers mg tablet 0-13 mg tablet ity o f 19:23: [address] traMADoL 50 2019-04 Yes tramadol Un yudith mg tablet 0-13 50 mg ity of 19:23: tablet [place] [id number] Take 1 Medical tablet Branch every 8 hours by oral route for 10 days. torsemide 2019-04 Yes 20mg Take 20 mg Un yudith 20 mg 0-13 by mouth. ity of tablet 19:23: [address] torsemide 2019-04 Yes 10mg Take 10 mg Un yudith 10 mg 0-13 by mouth. ity of tablet 19:23: [address] ticagrelor 2019-04 Yes 90mg Take 90 mg U nivers 90 mg 0-13 by mouth. ity of tablet 19:23: [address] rivaroxaban 2019-04 Yes Xarelto 20 Univers (XARELTO) 0-13 mg tablet ity o f 20 mg 19:23: [address] ranitidine 2019-04 Yes 150mg Take 150 Un yudith 150 mg 0-13 mg by ity of capsule 19:23: mouth. [address] PARoxetine 2019-04 Yes paroxetine U nivers 10 mg 0-13 10 mg ity of tablet 19:23: tablet [address] omeprazole- 2019-04 Yes omeprazole Univers sodium 0-13 40 ity of bicarbonate 19:23: mg-sodium [place] 40-1.1 57 bicarbonat Medical mg-gram per e 1.1 gram Br anch capsule capsule nebivoloL 2019-04 Yes 20mg Take 20 mg Un yudith 10 mg 0-13 by mouth. ity of tablet 19:23: [address] Branch Nebivolol 2019-04 Yes Bystolic Univ ers (BYSTOLIC) 0-13 20 mg ity of 20 mg 19:23: tablet [place] [address] Medical Branch metroNIDAZO 2019-04 Yes metronidaz Univers LE 500 mg 0-13 ole 500 mg ity of tablet 19:23: tablet [address] metoprolol 2019-04 Yes metoprolol U nivers tartrate 0-13 tartrate ity of 100 mg 19:23: 100 mg [place] tablet tablet Medical Branch metFORMIN 2019-04 Yes 500mg Take 500 Uni vers 500 mg 0-13 mg by ity of tablet 19:23: mouth. [address] losartan-hy 2019-04 Yes losartan Un yudith drochloroth 0-13 100 ity of iazide 19:23: mg-hydroch [place] 100-12.5 mg 57 lorothiazi Me dical per tablet de 12.5 mg Bra nch tablet losartan 2019-04 Yes losartan Unive rs 100 mg 0-13 100 mg ity of tablet 19:23: tablet [address] levothyroxi 2019-04 Yes Synthroid U nivers ne 0-13 50 mcg ity of (SYNTHROID) 19:23: tablet [place] 50 m[place] [facility] Branch labetaloL 2019-04 Yes labetalol Uni vers 200 mg 0-13 200 mg ity of tablet 19:23: tablet [address] hydrALAZINE 2019-04 Yes hydralazin Univers 50 mg 0-13 e 50 mg ity of tablet 19:23: tablet [address] gabapentin 2019-04 Yes gabapentin U nivers 100 mg 0-13 100 mg ity of capsule 19:23: capsule [address] gabapentin 2019-04 Yes 300mg Take 300 Un yudith 300 mg 0-13 mg by ity of capsule 19:23: mouth. [address] furosemide 2019-04 Yes furosemide U nivers 20 mg 0-13 20 mg ity of tablet 19:23: tablet [address] doxepin 25 2019-04 Yes 25mg Take 25 mg U nivers mg capsule 0-13 by mouth. ity of 19:23: [address] colchicine 2019-04 Yes colchicine U nivers 0.6 mg 0-13 0.6 mg ity of tablet 19:23: tablet [address] cloNIDine 2019-04 Yes clonidine Uni vers 0.1 mg 0-13 HCl 0.1 mg ity of tablet 19:23: tablet [address] ciprofloxac 2019-04 Yes ciprofloxa Univers in HCl 500 0-13 bella 500 mg ity of mg tablet 19:23: tablet [address] baclofen 10 2019-04 Yes baclofen Un yudith mg tablet 0-13 10 mg ity of 19:23: tablet [address] azilsartan 2019-04 Yes 80mg Take 80 mg U nivers 80 mg Tab 0-13 by mouth. ity o f 19:23: [address] amLODIPine 2019-04 Yes amlodipine U nivers 2.5 mg 0-13 2.5 mg ity of tablet 19:23: tablet [address] ALPRAZolam 2019-04 Yes alprazolam U nivers 0.5 mg 0-13 0.5 mg ity of tablet 19:23: tablet [address] allopurinoL 2019-04 Yes allopurino Univers 300 mg 0-13 l 300 mg ity of tablet 19:23: tablet [address] allopurinoL 2019-04 Yes allopurino Univers 100 mg 0-13 l 100 mg ity of tablet 19:23: tablet [address] albuterol 2019-04 Yes 2{puff} Inhale 2 U nivers 90 0-13 Puffs. ity of mcg/actuati 19:23: [place] on inhaler [address] [place] [address] glucagon 2019-04 Yes 1mg 1 mg, Univers (GLUCAGEN 0-13 Intramuscu ity of DIAGNOSTIC 19:22: lar, PRN, [place] KIT) 54 Starting Medical injection 1 Tue Branch mg 01/23/20 at 1422, Until Discontinu ed, MANPREET, Blood Glucose < or = 70 mg/dL and patient is unable to swallow or has mental changes. dextrose 50 2019-04 Yes 25mL 25 mL, Univ ers % in water 0 Slow IV ity of (D50W) 19:22: Push, PRN, [place] injection 54 Starting Medica l 25 mL [facility] Branch 01/23/20 at 1422, Until Discontinu ed, MANPREET, Blood Glucose < or = 70 mg/dL and patient is unable to swallow or has mental status changes. iodixanol 2019-04- No 100mL 100 mL, Uni vers (VISIPAQUE 0-01-22 Injection, it y of 320-100 mL) 19:00: [...] ity of D5W 250 mL 16:02: 16:02 [facility] infusion 59 :59 01/23/20 Medical RTU at 1102 Branch verapamiL 2019-04- No PRN, Univers (ISOPTIN) 001-22 Starting ity o f injection 16:02: 16:02 [facility] 15 :15 01/23/20 Medical at 1102, Branch Until Discontinu ed, Routine heparin 2019-04- No Slow IV Univer s 1,000 001-22 Push, PRN, ity of unit/mL 16:01: 16:01 Starting [place] injection 22 :22 [facility] Medical 01/23/20 Branch at 1101, Until Discontinu ed, Routine lidocaine 2019-04- No PRN, Univers 1% (PF) 001-22 Starting ity of (XYLOCAINE) 15:51: 15:51 [facility] [place] injection 00 :00 01/23/20 Medica l at [...] 0.3 mg 0-11 ity of tablet 00:00: Medical Branch cloNIDine 2019-04 2020- No Univers 0.3 mg 0-11 10-14 ity of tablet 00:00: 00:00 [place] 00 :00 Medical Branch EDARBI 80 2019-04 Yes Univers mg Tab 0-06 ity of 00:00: [place] Medical Branch EDARBI 80 2019-04 Yes Univers mg Tab 0-06 ity of 00:00: [place] Medical Branch EDARBI 80 2019-04 Yes Univers mg Tab 0-06 ity of 00:00: [place] Medical [facility] EDARBI 80 2019-04 Yes Univers mg Tab 0-06 ity of 00:00: [place] Medical Branch EDARBI 80 2019-04 Yes Univers mg Tab 0-06 ity of 00:00: [place] Medical Branch EDARBI 80 2019-04- No Univers mg Tab 0-06 01-07 ity of 00:00: 00:00 [place] 00 :00 Medical Branch allopurinoL 2019-04 Yes Univer s 100 mg 0-05 ity of tablet 00:00: [place] Medical Branch allopurinoL 2019-04 Yes Univer s 100 mg 0-05 ity of tablet 00:00: [place] Medical Branch allopurinoL 2019-04 Yes Univer s 100 mg 0-05 ity of tablet 00:00: [place] Medical [facility] allopurinoL 2019-04 Yes Univer s 100 mg 0-05 ity of tablet 00:00: [place] Medical [facility] allopurinoL 2019-04 Yes Univer s 100 mg 0-05 ity of tablet 00:00: [place] Medical [facility] BRILINTA 90 2019-04 Yes Univer s mg tablet 0-05 ity of 00:00: [place] Medical Branch allopurinoL 2020-1 Yes Univer s 100 mg 0-05 ity of tablet 00:00: [place] Medical Branch allopurinoL 2020-1 Yes Univer s 100 mg 0-05 ity of tablet 00:00: [place] Medical Branch allopurinoL 2020-1 Yes Univer s 100 mg 0-05 ity of tablet 00:00: [place] Medical Branch allopurinoL 2020-1 Yes Univer s 100 mg 0-05 ity of tablet 00:00: [place] Medical Branch allopurinoL 2020-1 Yes Univer s 100 mg 0-05 ity of tablet 00:00: [place] [address] Medical Branch allopurinoL 2020-1 Yes Univer s 100 mg 0-05 ity of tablet 00:00: [place] [address] Medical Branch BRILINTA 90 2020-1 2020- No Unive rs mg tablet 0-05 10-14 ity of 00:00: 00:00 [place] 00 : Medical Branch glimepiride 2020-0 Yes 2mg Take 2 mg U nivers 2 mg tablet 9-29 by mouth ity of 00:00: daily. [place] Medical Branch glimepiride 2020-0 Yes 2mg Take 2 mg U nivers 2 mg tablet 9-29 by mouth ity of 00:00: daily. [place] Medical Branch glimepiride 2020-0 Yes 2mg Take 2 mg U nivers 2 mg tablet 9-29 by mouth ity of 00:00: daily. [place] Medical Branch glimepiride 2020-0 Yes 2mg Take 2 mg U nivers 2 mg tablet 9-29 by mouth ity of 00:00: daily. [place] Medical Branch glimepiride 2020-0 Yes 2mg Take 2 mg U nivers 2 mg tablet 9-29 by mouth ity of 00:00: daily. [place] Medical Branch glimepiride 2020-0 Yes 2mg Take 2 mg U nivers 2 mg tablet 9-29 by mouth ity of 00:00: daily. [place] Medical Branch glimepiride 2020-0 Yes 2mg Take 2 mg U nivers 2 mg tablet 9-29 by mouth ity of 00:00: daily. [place] [facility] Branch glimepiride 2020-0 Yes 2mg Take 2 mg U nivers 2 mg tablet 9-29 by mouth ity of 00:00: daily. [place] Medical Branch glimepiride 2019-0 2020- No 2mg Take 2 mg Univers 2 mg tablet 01-08 by mouth ity of 00:00: 00:00 daily. [place] 00 :00 Medical Branch gabapentin 2020-0 Yes 300mg Take 300 Un yudith 300 mg 9-26 mg by ity of capsule 00:00: mouth 3 [place] 00 (three) Medical times Branch daily. gabapentin 2019-0 2020- No 300mg Take 300 U nivers 300 mg 9-26 10-14 mg by ity of capsule 00:00: 00:00 mouth 3 [place] 00 :00 (three) Medical times Branch daily. oxybutynin 2020-0 Yes 5mg Take 5 mg Un yudith chloride 5 9-23 by mouth 2 ity of mg tablet 00:00: (two) [place] 00 times Medical daily. Branch oxybutynin 2020-0 Yes 5mg Take 5 mg Un yudith chloride 5 9-23 by mouth 2 ity of mg tablet 00:00: (two) [place] 00 times Medical daily. Branch oxybutynin 2020-0 Yes 5mg Take 5 mg Un yudith chloride 5 9-23 by mouth 2 ity of mg tablet 00:00: (two) [place] 00 times Medical daily. Branch oxybutynin 2020-0 Yes 5mg Take 5 mg Un yudith chloride 5 9-23 by mouth 2 ity of mg tablet 00:00: (two) [place] 00 times Medical daily. Branch oxybutynin 2020-0 Yes 5mg Take 5 mg Un yudith chloride 5 9-23 by mouth 2 ity of mg tablet 00:00: (two) [place] 00 times Medical daily. Branch oxybutynin 2020-0 2020- No 5mg Take 5 mg U nivers chloride 5 9-23 -07 by mouth 2 it y of mg tablet 00:00: 00:00 (two) [place] 00 :00 times Medical daily. Branch levothyroxi 2019-0 Yes 50ug Take 50 Uni vers ne 50 mcg 9-10 mcg by ity of tablet 00:00: mouth. [place] Medical Branch levothyroxi 2019-0 2020- No 50ug [...] by ity of tablet 00:00: mouth 3 [place] [facility]) Medical times Branch daily. hydrALAZINE 2020-0 Yes 100mg Take 100 U nivers 100 mg 9-01 mg by ity of tablet 00:00: mouth 3 [place] [facility]) Medical times Branch daily. hydrALAZINE 2020-0 Yes 100mg Take 100 U nivers 100 mg 9-01 mg by ity of tablet 00:00: mouth 3 [place] [facility]) Medical times Branch daily. hydrALAZINE 2020-0 Yes 100mg Take 100 U nivers 100 mg 9-01 mg by ity of tablet 00:00: mouth 3 [place] [facility]) Medical times Branch daily. hydrALAZINE 2020-0 Yes 100mg Take 100 U nivers 100 mg 9-01 mg by ity of tablet 00:00: mouth 3 [place] ([facility]) Medical times Branch daily. hydrALAZINE 2020-0 2021- No 100mg Take 100 Univers 100 mg 9-01 01-07 mg by ity of tablet 00:00: 00:00 mouth 3 [place] 00 :00 (three) Medical times Branch daily. [...] No 50ug Take 50 Un yudith ne 8- 08-13 mcg by ity of (SYNTHROID) 19:25: 00:00 mouth [place] 50 [place]cg [place] :00 daily. Medical tablet Branch rivaroxaban 2020- No 20mg Take 20 mg Univers (XARELTO) 8- 08-13 by mouth ity o f 20 mg 19:25: 00:00 daily. [place] tablet 56 :00 Medical Branch hydralAZINE 2019- 2020- No 100mg Take 100 Univers (APRESOLINE 8- 08-13 mg by ity of ) 100 mg 19:25: 00:00 mouth 2 [place] tablet 56 :00 (two) Medical times Branch daily. allopurinol 2019- No 300mg Take 300 Univers 300 mg 8-13 08-13 mg by ity of tablet 19:25: 00:00 mouth [place] 56 :00 daily. Medical Branch cloniDINE 2019- 2020- No .3mg Take 0.3 Uni vers 0.2 mg 8-13 08-13 mg by ity of tablet 19:25: 00:00 mouth 3 [place] 56 :00 (three) Medical times Branch daily. colchicine 2019- 2020- No .6mg Take 0.6 Un yudith 0.6 mg 8-13 08-13 mg by ity of tablet 19:25: 00:00 mouth as [place] 56 :00 needed. Medical Branch doxepin 25 2020- No 25mg Take 25 mg Univers mg capsule 11-22 08-13 by mouth ity of 19:25: 00:00 at [place] 56 :00 bedtime. Medical Branch gabapentin 2019- 2020- No 300mg Take 300 U nivers 300 mg 8-13 08-13 mg by ity of capsule 19:25: 00:00 mouth 3 [place] 56 :00 (three) Medical times Branch daily. albuterol 2019- 2020- No 2{puff} Inhale 2 Univers 90 8- 08-13 Puffs ity of mcg/actuati 19:25: 00:00 every 6 [place] on inhaler 56 :00 (six) Medical hours as Branch needed for Wheezing or Shortness of Breath. torsemide 2020-0 2020- No 10mg Take 10 mg U nivers 10 mg 8-13 08-13 by mouth ity of tablet 19:25: 00:00 daily. [place] 56 :00 Medical Branch ticagrelor 2019-0 2020- No 90mg Take 90 mg Univers (BRILINTA) 8-13 08-13 by mouth 2 it y of 90 mg 19:25: 00:00 (two) [place] tablet 56 :00 times Medical daily. Branch levothyroxi 2020-0 Yes 50ug Take 50 Uni vers ne 8-13 mcg by ity of (SYNTHROID) 18:51: mouth [place] 50 mcg 12 daily. Medical tablet Branch rivaroxaban 2020-0 Yes 20mg Take 20 mg Univers (XARELTO) 8-13 by mouth ity of 20 mg 18:51: daily. [place] tablet 12 Medical Branch hydralAZINE 2020-0 Yes 100mg Take 100 U nivers (APRESOLINE 8-13 mg by ity of ) 100 mg 18:51: mouth 2 [place] tablet 12 (two) Medical times Branch daily. allopurinol 2020-0 Yes 300mg Take 300 U nivers 300 mg 8-13 mg by ity of tablet 18:51: mouth [place] 12 daily. Medical Branch cloniDINE 2020-0 Yes .3mg Take 0.3 Univ ers 0.2 mg 8-13 mg by ity of tablet 18:51: mouth 3 [place] 12 (three) Medical times Branch daily. colchicine 2020-0 Yes .6mg Take 0.6 Uni vers 0.6 mg 8-13 mg by ity of tablet 18:51: mouth as [place] needed. Medical Branch doxepin 25 2020-0 Yes 25mg Take 25 mg U nivers mg capsule 8-13 by mouth ity o f 18:51: at [place] 12 bedtime. Medical Branch gabapentin 2020-0 Yes [...] by mouth ity of tablet 18:51: daily. [place] [address] Medical Branch ticagrelor 2020-0 Yes 90mg Take 90 mg U nivers (BRILINTA) 8-13 by mouth 2 ity of 90 mg 18:51: (two) [place] tablet 12 times Medical daily. Branch pneumococca 2020-0 2020- No .5mL 0.5 mL, Un yudith l vac -22 11- Intramuscu ity of polyvalent 17:45: 17:49 lar, ONCE, [place] (PNEUMOVAX- 00 :00 1 dose, Medic al 23) [place] Branch injection 11/23/19 at 0.5 mL 1245, Routine pneumococca 2020-0 2020- No .5mL 0.5 mL, Un yudith l vac 11-22 Intramuscu ity of polyvalent 17:45: 17:49 lar, ONCE, [place] (PNEUMOVAX- 00 :00 1 dose, Medic al 23) [place] Branch injection 11/23/19 at 0.5 mL 1245, Routine atorvastati 2020-0 Yes 80mg Take 80 mg Univers n 80 mg 8-13 by mouth ity of tablet 00:00: daily. [place] [address] Medical Branch atorvastati 2020-0 Yes 80mg Take 80 mg Univers n 80 mg 8-13 by mouth ity of tablet 00:00: daily. [place] [address] Medical Branch atorvastati 2020-0 Yes 80mg Take 80 mg Univers n 80 mg 8-13 by mouth ity of tablet 00:00: daily. [place] [address] Medical Branch aspirin 81 2020-0 Yes [id number] 81mg Take 1 Univers mg chewable 8-13 tablet by ity of tablet 00:00: mouth [place] daily. Medical Branch atorvastati 2020-0 Yes 80mg Take 80 mg Univers n 80 mg 8-13 by mouth ity of tablet 00:00: daily. [place] [address] Medical Branch atorvastati 2020-0 Yes 80mg Take 80 mg Univers n 80 mg 8-13 by mouth ity of tablet 00:00: daily. [place] [address] Medical Branch aspirin 81 2020-0 Yes [id number] 81mg Take 1 Univers mg chewable 8-13 tablet by ity of tablet 00:00: mouth [place] 00 daily. Medical Branch aspirin 81 2020-0 Yes [id number] 81mg Take 1 Univers mg chewable 8-13 tablet by ity of tablet 00:00: mouth [place] 00 daily. Medical Branch aspirin 81 2020-0 Yes [id number] 81mg Take 1 Univers mg chewable 8-13 tablet by ity of tablet 00:00: mouth [place] 00 daily. Medical Branch aspirin 81 2020-0 Yes [id number] 81mg Take 1 Univers mg chewable 8-13 tablet by ity of tablet 00:00: mouth [place] 00 daily. Medical Branch aspirin 81 2020-0 Yes [id number] 81mg Take 1 Univers mg chewable 8-13 tablet by ity of tablet 00:00: mouth [place] 00 daily. Medical Branch aspirin 81 2020-0 Yes [id number] 81mg Take 1 Univers mg chewable 8-13 tablet by ity of tablet 00:00: mouth [place] 00 daily. Medical Branch aspirin 81 2020-0 Yes [id number] 81mg Take 1 Univers mg chewable 8-13 tablet by ity of tablet 00:00: mouth [place] 00 daily. Medical Branch aspirin 81 2020-0 Yes [id number] 81mg Take 1 Univers mg chewable 8-13 tablet by ity of tablet 00:00: mouth [place] 00 daily. Medical Branch aspirin 81 2020-0 Yes [id number] 81mg Take 1 Univers mg chewable 8-13 tablet by ity of tablet 00:00: mouth [place] 00 daily. Medical Branch aspirin 81 2020-0 Yes [id number] 81mg Take 1 Univers mg chewable 8-13 tablet by ity of tablet 00:00: mouth [place] 00 daily. Medical Branch aspirin 81 2020-0 Yes [id number] 81mg Take 1 Univers mg chewable 8-13 tablet by ity of tablet 00:00: mouth [place] 00 daily. Medical Branch aspirin 81 2020-0 Yes [id number] 81mg Take 1 Univers mg chewable 8-13 tablet by ity of tablet 00:00: mouth [place] 00 daily. Medical Branch aspirin 81 2020-0 Yes [id number] 81mg Take 1 Univers mg chewable 8-13 [...] by mouth ity of tablet 00:00: daily. [facility] Branch aspirin 81 2020-0 2020- No [id number] 81mg Take 1 Univers mg chewable 8-13 10-14 tablet by it y of tablet 00:00: 00:00 mouth [place] 00 :00 daily. Medical Branch Nebivolol 2020-0 2020- No 1{tbl} Take 1 Uni vers (BYSTOLIC) 8-12 08-12 tablet by ity of 20 mg 16:48: 00:00 mouth [place] tablet 02 :00 daily. [facility] Nebivolol 2020-0 2020- No 1{tbl} Take 1 Uni vers (BYSTOLIC) 8-12 08-12 tablet by ity of 20 mg 16:48: 00:00 mouth [place] tablet 02 :00 daily. [facility] Branch rivaroxaban 2020-0 Yes 20mg 20 mg, Univ ers (XARELTO) 8-12 Oral, ity of tablet 20 14:00: DAILY, [place] mg 00 First dose Medical on Wed [place] 11/22/19 at 0900, Until Discontinu ed, Routine aspirin 2020-0 Yes 81mg 81 mg, Univers chewable 8-12 Oral, ity of tablet 81 14:00: DAILY, [place] mg 00 First dose Medical on Wed [place] 11/22/19 at 0900, Until Discontinu ed, Routine rivaroxaban 2020-0 Yes 20mg 20 mg, Univ ers (XARELTO) 8-12 Oral, ity of tablet 20 14:00: DAILY, [place] mg 00 First dose Medical on [facility] 11/22/19 at 0900, Until Discontinu ed, Routine aspirin 2020-0 Yes 81mg 81 mg, Univers chewable 8-12 Oral, ity of tablet 81 14:00: DAILY, [place] mg 00 First dose Medical on [facility] 11/22/19 at 0900, Until Discontinu ed, Routine ticagrelor 2020-0 Yes 90mg 90 mg, Unive rs (BRILINTA) 8-12 Oral, BID, ity of tablet 90 13:00: First dose [place] mg 00 on [facility] 11/22/19 at Branch 0800, Until Discontinu ed, Routine ticagrelor 2020-0 Yes 90mg 90 mg, Unive rs (BRILINTA) 8-12 Oral, BID, ity of tablet 90 13:00: First dose [place] mg 00 on [facility] 11/22/19 at Branch 0800, Until Discontinu ed, Routine levothyroxi 2020-0 Yes 50ug 50 mcg, Uni vers ne 8-12 Oral, ity of (SYNTHROID) 11:00: QAM-0600, [place] tablet 50 00 First dose Medi jayce mcg on [facility] 11/22/19 at 0600, Until Discontinu ed, Routine levothyroxi 2020-0 Yes 50ug 50 mcg, Uni vers ne 8-12 Oral, ity of (SYNTHROID) 11:00: QAM-0600, [place] tablet 50 00 First dose Medi jayce mcg on [facility] 11/22/19 at 0600, Until Discontinu ed, Routine doxepin 2020-0 Yes 25mg 25 mg, Univers (SINEQUAN) 8-12 Oral, QHS, ity of capsule 25 02:00: First dose [place] mg 00 on [facility] 11/21/19 at Branch 2100, Until Discontinu ed, Routine doxepin 2020-0 Yes 25mg 25 mg, Univers (SINEQUAN) 8-12 Oral, QHS, ity of capsule 25 02:00: First dose [place] mg 00 on [facility] 11/21/19 at Branch 2100, Until Discontinu ed, Routine hydrALAZINE 2020-0 Yes 100mg 100 mg, Un yudith (APRESOLINE 8-12 Oral, BID, it y of ) tablet 01:00: First dose [place] 100 mg 00 on [facility] 11/21/19 at Branch 2000, Until Discontinu ed, Routine gabapentin 2020-0 Yes 300mg 300 mg, Uni vers (NEURONTIN) 8-12 Oral, TID, it y of capsule 300 01:00: First dose [place] mg 00 on [facility] 11/21/19 at [place] 1999, Until Discontinu ed, Routine hydrALAZINE 2020-0 Yes 100mg 100 mg, Un yudith (APRESOLINE 8-12 Oral, BID, it y of ) tablet 01:00: First dose [place] 100 mg 00 on [facility] 11/21/19 at [place] 1999, Until Discontinu ed, Routine gabapentin 2020-0 Yes 300mg 300 mg, Uni vers (NEURONTIN) 8-12 Oral, TID, it y of capsule 300 01:00: First dose [place] mg 00 on [facility] 11/21/19 at [place] 1999, Until Discontinu ed, Routine niCARdipine 2020-0 Yes 2.5mg/h 2.5-15 U nivers (CARDENE 8-11 mg/hr ity of I.V.) 40 mg 20:09: (12.5-75 [place] in 200 mL 35 mL/hr), IV Medi jayce 0.83% Infusion, Branch Sodium TITRATE, Chloride SBP Goal < (RTU) 180 mmHg, infusion 140-170, Starting [facility] 11/21/19 at 1509
In itiate infusion at [...] < (RTU) 180 mmHg, infusion 140-170, Starting [facility] 11/21/19 at 1509
In itiate infusion at 2.5 mg/hr.&nbs p; Ti trate by 2.5 mg/hr every 5 minutes to 15 minutes as needed to achieve and maintain goal blood pressure. Maximum dose = 15 mg/hr. If goal not maintained at maximum allowed dose, contact prescriber .
cloNIDine 2020-0 Yes .3mg 0.3 mg, Unive rs (CATAPRES) 8 Oral, TID, ity of tablet 0.3 19:30: First dose [place] mg 00 (after Medical last Branch modificati on) on Wed11/21/19 at 1430, Until Discontinu ed, Routine cloNIDine 2020-0 Yes .3mg 0.3 mg, Unive rs (CATAPRES) 8 Oral, TID, ity of tablet 0.3 19:30: First dose [place] mg 00 (after Medical last Branch modificati on) on Wed11/21/19 at 1430, Until Discontinu ed, Routine iodixanol 2020-0 2020- No 100mL 100 mL, Uni vers (VISIPAQUE 8 08 Injection, it y of 320-100 mL) 19:30: 19:30 ONCE, 1 [place] injection 00 :00 dose, Tue Medic al 100 mL 11/21/19 at Branch 1430, Routine iodixanol 2020-0 2020- No 100mL 100 mL, Uni vers (VISIPAQUE 8 08-11 Injection, it y of 320-100 mL) 19:30: 19:30 ONCE, 1 [place] injection 00 :00 dose, Tue Medic al 100 mL 11/21/19 at Branch 1430, Routine ondansetron 2020-0 Yes 4mg 4 mg, Slow Univers (ZOFRAN 8-11 IV Push, ity of (PF)) 19:16: Q6HPRN, [place] injection 4 49 Starting Medi jayce mg [facility] 11/21/19 at 1416, Until Discontinu ed, Routine, Nausea and Vomiting (N/V) ondansetron 2020-0 Yes 4mg 4 mg, Slow Univers (ZOFRAN 8-11 IV Push, ity of (PF)) 19:16: Q6HPRN, [place] injection 4 49 Starting Medi jayce mg [facility] 11/21/19 at 1416, Until Discontinu ed, Routine, Nausea and Vomiting (N/V) acetaminoph 2020-0 Yes 650mg 650 mg, Un yudith en 8-11 Oral, ity of (TYLENOL) 19:16: Q6HPRN, [place] tablet 650 38 Starting Medic al mg [facility] 11/21/19 at 1416, Until Discontinu ed, Routine, Pain (scale 1-3) acetaminoph 2020-0 Yes 650mg 650 mg, Un yudith en 11-20 Oral, ity of (TYLENOL) 19:16: Q6HPRN, [place] tablet 650 38 Starting Medic al mg [facility] 11/21/19 at 1416, Until Discontinu ed, Routine, Pain (scale 1-3) lidocaine 2020-0 2020- No PRN, Univers 1% (PF) 11-20 Starting ity of (XYLOCAINE) 15:30: 15:30 Tue [place] injection 00 :00 11/21/19 at [place] [id number], Branch Until Discontinu ed, Routine lidocaine 2020-0 2020- No PRN, Univers 1% (PF) 11-20 Starting ity of (XYLOCAINE) 15:30: 15:30 [facility] injection 00 :00 11/21/19 at [place] [id number], Branch Until Discontinu ed, Routine aspirin 2020-0 2020- No 650mg 650 mg, Unive rs tablet 650 11-20 Oral, ity of mg 14:45: 13:51 ONCE, 1 [place] 00 :00 dose, [facility] 11/21/19 at [place] [address], Routine aspirin 2020-0 2020- No 650mg 650 mg, Unive rs tablet 650 11-20 Oral, ity of mg 14:45: 13:51 ONCE, 1 [place] 00 :00 dose, [facility] 11/21/19 at [place] [address], Routine Nebivolol 2020-0 Yes 1{tbl} Take 1 Univ ers (BYSTOLIC) 8-05 tablet by ity of 20 mg 16:02: mouth [place] tablet 30 daily. [facility] levothyroxi 2020-0 Yes 50ug Take 50 Uni vers ne 8-05 mcg by ity of (SYNTHROID) 16:02: mouth [place] 50 mcg 30 daily. [facility] rivaroxaban 2020-0 Yes 20mg Take 20 mg Univers (XARELTO) 8-05 by mouth ity of 20 mg 16:02: daily. [place] tablet 30 [facility] hydralAZINE 2020-0 Yes 100mg Take 100 U [...] by mouth ity of tablet 16:02: daily. [place] 30 Medical Branch metformin 2020-0 Yes TAKE [...] [facility] - 10:35: mouth Medical 24 daily. [place] ticagrelor 2020-0 Yes 90mg Q.5D Take [address] (BRILINTA) 5-27 by mouth 2 Marc es - 90 mg Tab 10:35: (two) Medical tablet 24 times Center daily. aspirin 325 2020-0 Yes 325mg QD Take [address] MG tablet 5-27 mg by [facility] - 10:35: mouth Medical 24 daily. [place] ticagrelor 2020-0 Yes 90mg Q.5D Take [address] (BRILINTA) 5-27 by mouth 2 Marc es - 90 mg Tab 10:35: (two) Medical tablet 24 times Center daily. torsemide 2020-0 Yes 20mg QD Take [address] (DEMADEX) 5-20 by mouth [facility] - 20 MG 09:36: daily. Medical tablet 26 [place] torsemide 2020-0 Yes 20mg QD Take [address] (DEMADEX) 5-20 by mouth [facility] - 20 MG 09:36: daily. Medical tablet 26 [place] azilsartan 2020-0 Yes 80mg QD Take 80 [...] daily . Med ical mg Tab 59 [place] ranitidine 2020-0 Yes 150mg QD Take [address] (ZANTAC) 5-20 mg by [facility] - 150 MG 09:31: mouth Medical capsule 59 every Center evening . tamsulosin 2020-0 Yes .4mg Take 0.4 Uni vers 0.4 mg 24 2-18 mg by ity of hr capsule 00:00: mouth. [address] tamsulosin 2020-0 Yes .4mg Take 0.4 Uni vers 0.4 mg 24 2-18 mg by ity of hr capsule 00:00: mouth. [address] tamsulosin 2020-0 Yes .4mg Take 0.4 Uni vers 0.4 mg 24 2-18 mg by ity of hr capsule 00:00: mouth. [address] tamsulosin 2020-0 Yes .4mg QD Take [...] 00:00: [place] [facility] allopurinol 2020-0 Yes 100mg QD Take [address] (ZYLOPRIM) 2-17 mg by [facility] - 100 MG 18:25: mouth Medical tablet 17 daily. [place] colchicine 2020-0 Yes .6mg Take 0.[address] [facility] (COLCRYS) 2-17 mg by [facility] - 0.6 mg 18:25: mouth as Medical tablet 17 needed. Center gabapentin 2020-0 Yes 300mg Q.[id number] Take [address] [facility] (NEURONTIN) 2-17 [id number] mg by L ukes - 300 MG [...] 17 needed. Center gabapentin 2020-0 Yes 300mg Q.[id number] Take [address] [facility] [address] (NEURONTIN) 2-17 [id number] mg by L ukes - 300 MG [...] 2-17 by mouth. ity o f 00:00: [place] [facility] melatonin 2020-0 Yes 10mg Take 10 mg Un yudith 10 mg Tab 2-17 by mouth. ity o f 00:00: [place] [facility] melatonin 2020-0 Yes 10mg Take 10 mg Un yudith 10 mg Tab 2-17 by mouth. ity o f 00:00: [place] [facility] melatonin 2020-0 Yes 10mg Take 10 mg Un yudith 10 mg Tab 2-17 by mouth. ity o f 00:00: [place] [facility] melatonin 2020-0 Yes 10mg Take 10 mg Un yudith 10 mg Tab 2-17 by mouth. ity o f 00:00: [place] [facility] pantoprazol 2020-0 Yes 40mg Take 40 mg Univers e 40 mg EC 2-17 by mouth. ity of tablet 00:00: [place] [facility] melatonin 2020-0 Yes 10mg Take 10 mg Un yudith 10 mg Tab 2-17 by mouth. ity o f 00:00: [place] [facility] hydrALAZINE 2020-0 Yes hydralazin Univers 100 mg 2-17 e 100 mg ity of tablet 00:00: tablet [place] [facility] cloNIDine 2020-0 Yes clonidine Uni vers 0.2 mg 2-17 HCl 0.2 mg ity of tablet 00:00: tablet [address] melatonin 2020-0 Yes 10mg Take 10 mg Un yudith 10 mg Tab 2-17 by mouth. ity o f 00:00: [place] [facility] hydrALAZINE 2020-0 Yes hydralazin Univers 100 mg 2-17 e 100 mg ity of tablet 00:00: tablet [address] melatonin 2020-0 Yes 10mg Take 10 mg Un yudith 10 mg Tab 2-17 by mouth. ity o f 00:00: [address] hydrALAZINE 2020-0 Yes hydralazin Univers 100 mg 2-17 e 100 mg ity of tablet 00:00: tablet [address] melatonin 2020-0 Yes 10mg Take 10 mg Un yudith 10 mg Tab 2-17 by mouth. ity o f 00:00: [address] melatonin 2020-0 Yes 10mg Take 10 mg Un yudith 10 mg Tab 2-17 by mouth. ity o f 00:00: [address] melatonin 2020-0 Yes 10mg Take 10 mg Un yudith 10 mg Tab 2-17 by mouth. ity o f 00:00: [address] hydrALAZINE 2020-0 Yes 100mg Q.[id number] Take [address] [facility] (APRESOLINE 2-17 [id number] tablet [facility] - ) 100 MG 00:00: 3D (100 mg Medica l tablet 00 total) by Center mouth 3 (three) times daily. melatonin 2020-0 Yes 10mg QD Take [address] 10 mg Tab 2-17 by mouth [facility] - 00:00: nightly. [address] pantoprazol 2020-0 Yes 40mg QD Take [address] e 2-17 tablet (40 [facility] - (PROTONIX) 00:00: mg total) Me dical 40 MG 00 by mouth Center tablet daily. hydrALAZINE 2020-0 Yes 100mg Q.[id number] Take [address] [facility] (APRESOLINE 2-17 [id number] tablet [facility] - ) 100 MG 00:00: 3D (100 mg Medica l tablet 00 total) by Center mouth 3 (three) times daily. melatonin 2020-0 Yes 10mg QD Take [address] 10 mg Tab 2-17 by mouth [facility] - 00:00: nightly. [address] pantoprazol 2020-0 Yes 40mg QD Take [address] e 2-17 tablet (40 [facility] - (PROTONIX) 00:00: mg total) Me dical 40 MG 00 by mouth Center tablet daily. atorvastati 2019-0 2020- No 80mg Take 80 mg Univers n 80 mg 2-17 17 by mouth. ity of tablet 00:00: 05:59 [place] 00 00 [facility] cloNIDine 2019-0 2020- No .2mg QD Take [...] at [place] 57 bedtime. Medical Branch gabapentin 20180 Yes 300mg Take 300 Un yudith 300 mg 9-13 mg by ity of capsule 15:20: mouth 3 [place] 57 (three) Medical times Branch daily. albuterol 2018-0 Yes 2{puff} Inhale 2 U nivers 90 9-13 Puffs ity of mcg/actuati 15:20: every 6 [place] as on inhaler 57 (six) Medical hours as Branch needed for Wheezing or Shortness of Breath. allopurinol 20180 Yes 300mg Take 300 U nivers 300 [...] for Wheezing or Shortness of Breath. Nebivolol 20180 Yes 1{tbl} Take 1 Univ ers (BYSTOLIC) 9-13 tablet by ity of 20 mg 15:20: mouth [place] tablet 57 daily. Medical Branch levothyroxi 20180 Yes 50ug Take 50 Uni vers ne 9-13 mcg by ity of (SYNTHROID) 15:20: mouth [place] 50 mcg 57 daily. Medical tablet Branch rivaroxaban 20180 Yes 20mg Take 20 mg Univers (XARELTO) [...] [place] 57 needed. Medical Branch doxepin 25 20180 Yes 25mg Take 25 mg U nivers mg capsule 9-13 by mouth ity o f 15:20: at [place] 57 bedtime. Medical Branch gabapentin 20180 Yes 300mg Take 300 Un yudith 300 mg 9-13 mg by ity of capsule 15:20: mouth 3 [place] 57 (three) Medical times Branch daily. albuterol 2018-0 Yes 2{puff} Inhale 2 U nivers 90 9-13 Puffs ity of mcg/actuati 15:20: every 6 [place] as on inhaler 57 (six) Medical hours as Branch needed for Wheezing or Shortness of Breath. torsemide 20180 Yes 10mg Take 10 mg Un yudith 10 mg 9-13 by mouth ity of tablet 15:20: daily. [place] 57 Medical Branch Nebivolol 2017-0 Yes 1{tbl} Take 1 Univ ers (BYSTOLIC) 9-13 tablet by ity of 20 mg 15:20: mouth [place] tablet 57 daily. Medical Branch levothyroxi 0 Yes 50ug Take 50 Uni vers ne [...] 57 (three) Medical times Branch daily. colchicine 2018 Yes .6mg Take 0.6 Uni vers 0.6 mg 9-13 mg by ity of tablet 15:20: mouth as [place] 57 needed. Medical Branch doxepin 25 20180 Yes 25mg Take 25 mg U nivers mg capsule 9-13 by mouth ity o f 15:20: at [place] 57 bedtime. Medical Branch gabapentin 2018 Yes 300mg Take 300 Un yudith 300 mg 9-13 mg by ity of capsule 15:20: mouth 3 [place] 57 (three) Medical times Branch daily. albuterol 2018-0 Yes 2{puff} Inhale 2 U nivers 90 9-13 Puffs ity of mcg/actuati 15:20: every 6 [place] as on inhaler 57 (six) Medical hours as Branch needed for Wheezing or Shortness of Breath. torsemide 20180 Yes 10mg Take 10 mg Un yudith 10 mg 9-13 by mouth ity of tablet 15:20: daily. [place] 57 Medical Branch Nebivolol 0 Yes 1{tbl} Take 1 Univ ers (BYSTOLIC) 9-13 tablet by ity of 20 mg 15:20: mouth [place] tablet 57 daily. Medical Branch levothyroxi 0 Yes 50ug Take 50 Uni vers ne 9-13 mcg by ity of (SYNTHROID) 15:20: mouth [place] 50 mcg 57 daily. Medical tablet Branch rivaroxaban 0 Yes 20mg Take 20 mg Univers (XARELTO) [...] mouth [place] 57 daily. Medical Branch cloniDINE 2017- Yes .2mg Take 0.2 Univ ers 0.2 mg 9-13 mg by ity of tablet 15:20: mouth 3 [place] 57 (three) Medical times Branch daily. colchicine 2017- Yes .6mg Take 0.6 Uni vers 0.6 mg 9-13 mg by ity of tablet 15:20: mouth as [place] 57 needed. Medical Branch doxepin 25 Yes 25mg Take 25 mg U nivers mg capsule 9-13 by mouth ity o f 15:20: at [place] 57 bedtime. Medical Branch gabapentin 2018 Yes 300mg Take 300 Un yudith 300 mg 9-13 mg by ity of capsule 15:20: mouth 3 [place] 57 (three) Medical times Branch daily. albuterol 2018- Yes 2{puff} Inhale 2 U nivers 90 9-13 Puffs ity of mcg/actuati 15:20: every 6 [place] as on inhaler 57 (six) Medical hours as Branch needed for Wheezing or Shortness of Breath. torsemide 2018-0 Yes 10mg Take 10 mg Un yudith 10 mg 9-13 by mouth ity of tablet 15:20: daily. [place] 57 Medical Branch Nebivolol 0 Yes 1{tbl} Take 1 Univ ers (BYSTOLIC) 9-13 tablet by ity of 20 mg 15:20: mouth [place] tablet 57 daily. Medical Branch levothyroxi Yes 50ug Take 50 Uni vers ne 9-13 mcg by ity of (SYNTHROID) 15:20: mouth [place] 50 mcg 57 daily. Medical tablet Branch rivaroxaban 0 Yes 20mg Take 20 mg Univers (XARELTO) 9-13 by mouth ity of 20 mg 15:20: daily. [place] tablet 57 Medical Branch hydralAZINE 0 Yes 100mg Take 100 U nivers (APRESOLINE 9-13 mg by ity of ) 100 mg 15:20: mouth 2 [place] tablet 57 (two) Medical times Branch daily. allopurinol 2018- Yes 300mg Take 300 U nivers 300 mg 9-13 mg by ity of tablet 15:20: mouth [place] 57 daily. Medical Branch cloniDINE 2018-0 Yes .2mg Take 0.2 Univ ers 0.2 mg 9-13 mg by ity of tablet 15:20: mouth 3 [place] 57 (three) Medical times Branch daily. colchicine 2018- Yes .6mg Take 0.6 Uni vers 0.6 mg 9-13 mg by ity of tablet 15:20: mouth as [place] 57 needed. Medical Branch doxepin 25 0 Yes 25mg Take 25 mg U nivers mg capsule 9-13 by mouth ity o f 15:20: at [place] bedtime. Medical Branch gabapentin 2018-0 Yes 300mg Take 300 Un yudith 300 mg 9-13 mg by ity of capsule 15:20: mouth 3 [place] 57 (three) Medical times Branch daily. albuterol 20180 Yes 2{puff} Inhale 2 U nivers 90 9-13 Puffs ity of mcg/actuati 15:20: every 6 [place] as on inhaler 57 (six) Medical hours as Branch needed for Wheezing or Shortness of Breath. torsemide 2018-0 Yes 10mg Take 10 mg Un yudith 10 mg 9-13 by mouth ity of tablet 15:20: daily. [place] [id number] Medical Branch allopurinol 2017-0 Yes 300mg Take 300 U nivers 300 mg 9-13 mg by ity of tablet 15:20: mouth [place] 57 daily. Medical Branch colchicine 0 Yes .6mg Take 0.6 Uni vers 0.6 mg 9-13 mg by ity of tablet 15:20: mouth as [place] needed. Medical Branch doxepin 25 0 Yes 25mg Take 25 mg U nivers mg capsule 9-13 by mouth ity o f 15:20: at [place] bedtime. Medical Branch gabapentin 0 Yes 300mg [...] Immunizations Ordered Filled Immunization Date Status Comments [facility] e Immunization Name Name Pneumococcal 2019-11-23 Completed University o f Polysaccharide, [...] ical PPSV23 (PNEUMOVAX) Branch Pneumococcal 2019-11-23 Completed [place] o f Polysaccharide, 00:00:00 [place] Med ical PPSV23 (PNEUMOVAX) Branch Pneumococcal 2019-11-23 Completed University o f Polysaccharide, 00:00:00 [place] Med ical PPSV23 (PNEUMOVAX) Branch Pneumococcal 2019-11-23 Completed University o f Polysaccharide, 00:00:00 [place] Med ical PPSV23 (PNEUMOVAX) Branch Pneumococcal 2019-11-23 Completed [place] o f Polysaccharide, 00:00:00 [place] Med ical PPSV23 (PNEUMOVAX) Branch Vital Signs Vital Name Observation Time Observation Value Comments Source Systolic blood 2020-05-03 01:29:00 153 mm[Hg] Univer sity of [facility] Diastolic blood 2020-05-03 01:29:00 68 mm[Hg] [facility] Heart rate 2020-05-03 01:29:00 103 /min [facility] Body temperature 2020-05-03 01:29:00 36.94 [facility] Respiratory rate 2020-05-03 01:29:00 18 /min Univ [facility] Oxygen saturation in 2020-05-03 01:29:00 91 /min [facility] Arterial blood by [place] [employer] [facility] Pulse oximetry [place] Body height 2020-04-27 07:15:00 162.6 cm [facility] Body weight 2020-04-27 02:05:00 91.173 kg [facility] BMI 2020-04-27 02:05:00 34.50 kg/m2 [facility] Systolic blood 2020-05-03 01:29:00 153 mm[Hg] Univer sity of [facility] Diastolic blood 2020-05-03 01:29:00 68 mm[Hg] [facility] Heart rate 2020-05-03 01:29:00 103 /min [facility] Body temperature 2020-05-03 01:29:00 36.94 [facility] Respiratory rate 2020-05-03 01:29:00 18 /min [facility] Oxygen saturation in 2020-05-03 01:29:00 91 /min University of Arterial blood by [facility] Pulse oximetry Branch Body height 2020-04-27 07:15:00 162.6 cm Universi ty of [place] [facility] Body weight 2020-04-27 02:05:00 91.173 kg Universi ty of [place] [facility] BMI 2020-04-27 02:05:00 34.50 kg/m2 Universi ty of [place] [facility] Systolic blood 2020-04-19 00:31:00 168 mm[Hg] Univer sity of pressure [place] [facility] Diastolic blood 2020-04-19 00:31:00 69 mm[Hg] Unive rsity of pressure [place] [facility] Heart rate 2020-04-19 00:31:00 90 /min Universi ty of [place] [facility] Body temperature 2020-04-19 00:31:00 36.67 Sri Univ ersity of [place] [facility] Respiratory rate 2020-04-19 00:31:00 18 /min Univ ersity of [place] [facility] Oxygen saturation in 2020-04-19 00:31:00 95 /min University of Arterial blood by [facility] Pulse oximetry Branch Body height 2020-04-12 14:04:00 165.1 cm Universi ty of [place] [facility] Body weight 2020-04-12 14:04:00 91.5 kg Universi ty of [place] [facility] BMI 2020-04-12 14:04:00 33.57 kg/m2 Universi ty of [place] [facility] Systolic blood 2020-04-19 00:31:00 168 mm[Hg] Univer sity of pressure [place] [facility] Diastolic blood 2020-04-19 00:31:00 69 mm[Hg] Unive rsity of pressure [place] [facility] Heart rate 2020-04-19 00:31:00 90 /min Universi ty of [place] [facility] Body temperature 2020-04-19 00:31:00 36.67 Sri Univ ersity of [place] [facility] Respiratory rate 2020-04-19 00:31:00 18 /min Univ ersity of [place] [facility] Oxygen saturation in 2020-04-19 00:31:00 95 /min University of Arterial blood by [facility] Pulse oximetry Branch Body height 2020-04-12 14:04:00 165.1 cm Universi ty of [place] [facility] Body weight 2020-04-12 14:04:00 91.5 kg Universi ty of [place] [facility] BMI 2020-04-12 14:04:00 33.57 kg/m2 Universi ty [facility] [place] [facility] Respiratory rate 2020-04-02 23:33:00 26 /min Univ ersity of [place] [facility] Respiratory rate 2020-04-02 23:33:00 26 /min Univ ersity of [place] [facility] Systolic blood 2020-01-24 14:00:00 176 mm[Hg] Univer sity of pressure [place] [facility] Diastolic blood 2020-01-24 14:00:00 74 mm[Hg] Unive rsity of pressure [place] [facility] Heart rate 2020-01-24 14:00:00 88 /min Universi ty of [place] [facility] Respiratory rate 2020-01-24 14:00:00 19 /min Univ ersity of [place] [facility] Oxygen saturation in 2020-01-24 14:00:00 96 /min University of Arterial blood by [place] [employer] jayce Pulse oximetry Branch Body temperature 2020-01-24 13:00:00 37 Sri Univ ersity of [place] [facility] Body height 2020-01-23 19:26:00 167.6 cm Universi ty [facility] [place] [facility] Body weight 2020-01-23 17:45:00 90 kg Universi [facility] [place] [facility] BMI 2020-01-23 17:45:00 32.02 kg/m2 Universi ty of [place] [facility] Systolic blood 2020-01-24 14:00:00 176 mm[Hg] Univer sity of pressure [place] [facility] Diastolic blood 2020-01-24 14:00:00 74 mm[Hg] Unive rsity of pressure [place] [facility] Heart rate 2020-01-24 14:00:00 88 /min Universi ty of [place] [facility] Respiratory rate 2020-01-24 14:00:00 19 /min Univ ersity [facility] [place] [facility] Oxygen saturation in 2020-01-24 14:00:00 96 /min University of Arterial blood by [place] Medi jayce Pulse oximetry Branch Body temperature 2020-01-24 13:00:00 37 Sri Univ ersity of [place] [facility] Body height 2020-01-23 19:26:00 167.6 cm Universi ty [facility] [place] [facility] Body weight 2020-01-23 17:45:00 90 kg [facility]i [facility] [place] [facility] BMI 2020-01-23 17:45:00 32.02 kg/m2 [facility] [place] [facility] Systolic blood 2020-01-08 16:02:00 184 mm[Hg] Univer sity of pressure [facility] [place] [facility] Diastolic blood 2020-01-08 16:02:00 75 mm[Hg] Unive rsity of pressure [facility] [place] [facility] Heart rate 2020-01-08 16:02:00 73 /min Universi ty of [facility] [place] [facility] Body height 2020-01-08 16:01:00 167.6 cm Universi ty of [place] [facility] [place] Body weight 2020-01-08 16:01:00 89.404 kg Universi ty of [place] [facility] BMI 2020-01-08 16:01:00 31.81 kg/m2 Universi ty of [facility] [place] [facility] Systolic blood 2020-01-08 16:02:00 184 mm[Hg] Univer sity of pressure [facility] [place] [facility] Branch Diastolic blood 2020-01-08 16:02:00 75 mm[Hg] Unive rsity of pressure [facility] [place] [facility] Heart rate 2020-01-08 16:02:00 73 /min Universi ty of [facility] [place] [facility] Body height 2020-01-08 16:01:00 167.6 cm Universi ty of [place] [facility] [place] Body weight 2020-01-08 16:01:00 89.404 kg Universi ty of [place] [facility] [place] BMI 2020-01-08 16:01:00 31.81 kg/m2 Universi ty of [facility] [place] [facility] Systolic blood 2019-11-23 16:15:00 132 mm[Hg] Univer sity of pressure [facility] [place] [facility] Branch Diastolic blood 2019-11-23 16:15:00 47 mm[Hg] Unive rsity of pressure [facility] [place] [facility] Heart rate 2019-11-23 16:15:00 69 /min Universi ty of [facility] [place] [facility] Body temperature 2019-11-23 16:15:00 36.83 Sri Univ ersity of [facility] [place] [facility] Respiratory rate 2019-11-23 16:15:00 17 /min Univ ersity of [facility] [place] [facility] Oxygen saturation in 2019-11-23 16:15:00 97 /min [facility] Arterial blood by [facility] Pulse oximetry Branch Body weight 2019-11-23 11:19:00 93.895 kg Universi ty of [facility] [place] [facility] BMI 2019-11-23 11:19:00 33.41 kg/m2 Universi ty of [facility] [place] [facility] Body height 2019-11-21 15:20:00 167.6 cm [facility]i ty [facility] [place] [facility] Systolic blood 2019-10-30 14:52:00 144 mm[Hg] Univer sity of pressure [facility] [place] [facility] Diastolic blood 2019-10-30 14:52:00 74 mm[Hg] Unive rsity of pressure [facility] [place] [facility] Heart rate 2019-10-30 14:52:00 73 /min Universi ty [facility] Body height 2019-10-30 14:50:00 165.1 cm Universi ty [facility] Body weight 2019-10-30 14:50:00 86.183 kg Universi ty [facility] BMI 2019-10-30 14:50:00 31.62 kg/m2 Universi ty [facility] HEIGHT 2019-09-06 00:00:00 167.6 cm WEIGHT 2019-09-06 00:00:00 90.719 kg HEIGHT 2019-09-06 00:00:00 167.6 cm WEIGHT 2019-09-06 00:00:00 90.719 kg Procedures Procedure Date / Time Performing Source Performed Clinician POWER OF DEPUTY BRAND INSPECTOR 2020-05-07 Doctor Unassigned, [place] of 06:01:00 [place] [facility] [place] [facility] POCT GLUCOSE (AUTOMATED) 2020-05-03 Debra Ali Univers ity of 01:29:00 [facility] [place] [facility] POCT GLUCOSE (AUTOMATED) 2020-05-02 Debra Ali Univers ity of 23:55:00 [facility] [place] [facility] COVID-19 (ID NOW RAPID TESTING) 2020-05-02 [facility] 23:19:00 [facility] [place] [facility] POCT GLUCOSE (AUTOMATED) 2020-05-02 Debra Ali Univers ity of 19:12:00 [facility] [place] [facility] POCT GLUCOSE (AUTOMATED) 2020-05-02 Lukezo Ali Univers ity of 18:58:00 [facility] [place] [facility] POCT GLUCOSE (AUTOMATED) 2020-05-02 Ezwendy Ali Univers ity of 16:08:00 [facility] [place] [facility] POCT GLUCOSE (AUTOMATED) 2020-05-02 Ezwendy Ali Univers ity of 03:02:00 [facility] [place] [facility] POCT GLUCOSE (AUTOMATED) 2020-05-01 Debra Ali Univers ity of 15:03:00 [facility] [place] [facility] POCT GLUCOSE (AUTOMATED) 2020-05-01 Ezzo, Ali Univers ity of 02:39:00 [facility] [place] [facility] POCT GLUCOSE (AUTOMATED) 2020-05-01 Ezzo, Ali Univers ity of 00:41:00 [place] [facility] POCT GLUCOSE (AUTOMATED) 2020-04-30 Ezzo, Ali Univers ity of 18:50:00 [place] [facility] POCT GLUCOSE (AUTOMATED) 2020-04-30 Ezzo, Ali Univers ity of 15:34:00 [place] [facility] POCT GLUCOSE (AUTOMATED) 2020-04-30 Ezzo, Ali Univers ity of 11:55:00 [place] [facility] POCT GLUCOSE (AUTOMATED) 2020-04-30 Ezzo, Ali Univers ity of 08:04:00 [place] [facility] POCT GLUCOSE (AUTOMATED) 2020-04-30 Ezzo, Ali Univers ity of 04:19:00 [facility] [place] [facility] POCT GLUCOSE (AUTOMATED) 2020-04-30 Ezzo, Ali Univers ity of 00:11:00 [facility] [place] [facility] POCT GLUCOSE (AUTOMATED) 2020-04-29 Ezzo, Ali Univers ity of 19:45:00 [facility] [place] [facility] POCT GLUCOSE (AUTOMATED) 2020-04-29 Ezzo, Ali Univers ity of 19:07:00 [facility] [place] [facility] POCT GLUCOSE (AUTOMATED) 2020-04-29 Ezzo, Ali Univers ity of 14:10:00 [facility] [place] [facility] BASIC METABOLIC PANEL (NA, K, CL, 2020-04-29 [facility] of CO2, GLUCOSE, BUN, CREATININE, CA) 10:15:00 [facility] [place] [facility] CBC WITH DIFF 2020-04-29 [facility] 10:14:00 [facility] [place] [facility] POCT GLUCOSE (AUTOMATED) 2020-04-29 Ezzo, Ali Univers ity of 10:14:00 [facility] [place] [facility] POCT GLUCOSE (AUTOMATED) 2020-04-29 Ezzo, Ali Univers ity of 05:53:00 [facility] [place] [facility] POCT GLUCOSE (AUTOMATED) 2020-04-29 Ezzo, Ali Univers ity of 02:22:00 [facility] [place] [facility] POCT GLUCOSE (AUTOMATED) 2020-04-28 Ezzo, Ali Univers ity of 22:35:00 [facility] [place] [facility] POCT GLUCOSE (AUTOMATED) 2020-04-28 Ezzo, Ali Univers [...] Ezzo, Ali Univers ity of 07:22:00 [place] [facility] POCT GLUCOSE (AUTOMATED) 2020-04-27 Zachary Mccall rsity of 06:29:00 [facility] [place] [facility] URINALYSIS 2020-04-27 Zachary Mccall University of 04:29:00 [facility] [place] [facility] EXTRA TUBE URINE CULTURE 2020-04-27 Zachary Mccall rsity of 04:29:00 [facility] [place] [facility] CT ABDOMEN PELVIS W CONTRAST 2020-04-27 [facility] of 04:13:56 [facility] [place] [facility] CT HEAD WO CONTRAST 2020-04-27 [facility] of 04:13:56 [facility] [place] [facility] CT THORAX W CONTRAST 2020-04-27 [facility] of 04:13:56 [facility] [place] [facility] HB ECG ROUTINE & RHYTHM STRIP 2020-04-27 [facility] of 02:57:49 [facility] [place] [facility] TROPONIN I 2020-04-27 [facility] 02:54:00 [facility] HEPATIC FUNCTION PANEL (89260) 2020-04-27 [facility] (ALB,T.PRO,BILI 02:54:00 [facility],BU/BC,ALT,AST,ALK PHOS) [place] BASIC METABOLIC PANEL (NA, K, CL, 2020-04-27 [facility] CO2, GLUCOSE, BUN, CREATININE, CA) 02:54:00 [facility] CBC WITH DIFF 2020-04-27 [facility] 02:54:00 [facility] COVID-19 (ID NOW RAPID TESTING) 2020-04-27 [facility] 02:54:00 [facility] LAB ONLY COVID INTERPRETATION 2020-04-27 [facility] 02:54:00 [facility] POCT GLUCOSE (AUTOMATED) 2020-04-27 [facility] rsity of 01:56:00 [facility] HOSPITAL ADMISSION 2020-04-26 Doctor Unassigned, [place] of 06:01:00 [place] [facility] POCT GLUCOSE (AUTOMATED) 2020-04-19 Cata Ye [facility] ersity of 00:11:00 [facility] BASIC METABOLIC PANEL (NA, K, CL, 2020-04-18 [facility] CO2, GLUCOSE, BUN, CREATININE, CA) 21:27:00 [facility] MAGNESIUM 2020-04-18 [facility] of 21:27:00 [facility] POCT GLUCOSE (AUTOMATED) 2020-04-18 [facility] ersity of 18:22:00 [facility] POCT GLUCOSE (AUTOMATED) 2020-04-18 [facility] ersity of 15:09:00 [facility] BASIC METABOLIC PANEL (NA, K, CL, 2020-04-18 [facility] of CO2, GLUCOSE, BUN, CREATININE, CA) 11:51:00 [facility] CBC WITH DIFF 2020-04-18 [facility] 11:51:00 [facility] MAGNESIUM 2020-04-18 [facility] of 11:51:00 [facility] POCT GLUCOSE (AUTOMATED) 2020-04-18 [facility] ersity of 02:09:00 [facility] CBC WITH DIFF 2020-04-18 [facility] 00:04:00 [facility] POCT GLUCOSE (AUTOMATED) 2020-04-17 [facility] ersity of 21:39:00 [facility] COLONOSCOPY 2020-04-17 [facility] of 17:25:00 [facility] COLONOSCOPY (ENDO) 2020-04-17 [facility] of 16:28:15 [facility] BASIC METABOLIC PANEL (NA, K, CL, 2020-04-17 [facility] CO2, GLUCOSE, BUN, CREATININE, CA) 11:37:00 [facility] CBC WITH DIFF 2020-04-17 [facility] 11:37:00 [facility] POCT GLUCOSE (AUTOMATED) 2020-04-17 [facility] ersity of 02:02:00 [facility] POCT GLUCOSE (AUTOMATED) 2020-04-[address] [facility] ersity of 23:42:00 [facility] CBC WITH DIFF 2020-04-16 [facility] of 19:53:00 [facility] POCT GLUCOSE (AUTOMATED) 2020-04-[address] [facility] ersity of 18:50:00 [facility] POCT GLUCOSE (AUTOMATED) 2020-04-16 [facility] ersity of 15:17:00 [facility] PREPARE PACKED RBC 2020-04-16 [facility] of 11:52:01 [facility] BASIC METABOLIC PANEL (NA, K, CL, 2020-04-16 [facility] CO2, GLUCOSE, BUN, CREATININE, CA) 10:47:00 [facility] CBC WITH DIFF 2020-04-16 [facility] 10:47:00 [facility] POCT GLUCOSE (AUTOMATED) 2020-04-[address] [facility] ersity of 03:36:00 [facility] POCT GLUCOSE (AUTOMATED) 2020-04-[address] [facility] ersity of 00:07:00 [facility] CBC WITH DIFF 2020-04-15 [facility] of 21:44:00 [facility] EGD (ENDO) 2020-04-15 [facility] of 19:02:31 [facility] ESOPHAGOGASTRODUODENOSCOPY 2020-04-15 Marciano Mccoy [facility] rsity of 18:59:00 [facility] HB ABO GROUPING 2020-04-15 [facility] of 15:30:00 [facility] POCT GLUCOSE (AUTOMATED) 2020-04-[address] [facility] ersity of 14:17:00 [facility] BASIC METABOLIC PANEL (NA, K, CL, 2020-04-15 [facility] of CO2, GLUCOSE, BUN, CREATININE, CA) 07:50:00 [facility] CBC WITH DIFF 2020-04-15 [facility] of 07:50:00 [facility] COVID-19 (ID NOW RAPID TESTING) 2020-04-15 [facility] of 05:42:00 [facility] LAB ONLY COVID INTERPRETATION 2020-04-15 [facility] iversity of 05:42:00 [facility] PREPARE PACKED RBC 2020-04-15 [facility] of 03:45:44 [facility] POCT GLUCOSE (AUTOMATED) 2020-04-[address] [facility] ersity of 03:45:00 [facility] POCT GLUCOSE (AUTOMATED) 2020-04-[address] [facility] ersity of 00:08:00 [facility] CBC WITH DIFF 2020-04-14 [facility] of 21:37:00 [facility] POCT GLUCOSE (AUTOMATED) 2020-04-[address] [facility] ersity of 19:15:00 [facility] POCT GLUCOSE (AUTOMATED) 2020-04-14 [facility] ersity of 16:08:00 [facility] BASIC METABOLIC PANEL (NA, K, CL, 2020-04-14 [facility] of CO2, GLUCOSE, BUN, CREATININE, CA) 12:34:00 [facility] POCT GLUCOSE (AUTOMATED) 2020-04-14 [facility] ersity of 06:08:00 [facility] POCT GLUCOSE (AUTOMATED) 2020-04-14 [facility] ersity of 02:19:00 [facility] POCT GLUCOSE (AUTOMATED) 2020-04-13 [facility] ersity of 22:26:00 [facility] CBC WITH DIFF 2020-04-13 [facility] of 21:38:00 [facility] POCT GLUCOSE (AUTOMATED) 2020-04-13 [facility] ersity of 18:30:00 [facility] XR KNEE 3 VW RIGHT 2020-04-13 [facility] of 18:00:00 [facility] POCT GLUCOSE (AUTOMATED) 2020-04-[address] [facility] ersity of 15:01:00 [facility] BASIC METABOLIC PANEL (NA, K, CL, 2020-04-13 [facility] of CO2, GLUCOSE, BUN, CREATININE, CA) 11:45:00 [facility] CBC WITH DIFF 2020-04-13 [facility] of 11:45:00 [facility] POCT GLUCOSE (AUTOMATED) 2020-04-[address] [facility] ersity of 01:46:00 [facility] PREPARE PACKED RBC 2020-04-13 [facility] of 00:16:50 [facility] POCT GLUCOSE (AUTOMATED) 2020-04-[address] [facility] ersity of 23:32:00 [facility] HB ABO GROUPING 2020-04-12 [facility] of 21:45:00 [facility] CBC WITH DIFF 2020-04-12 Jose, [facility] of 20:28:00 [facility] POCT GLUCOSE (AUTOMATED) 2020-04-12 [facility] ersity of 18:52:00 [facility] POCT GLUCOSE (AUTOMATED) 2020-04-12 [facility] ersity of 15:28:00 [facility] BASIC METABOLIC PANEL (NA, K, CL, 2020-04-12 [facility] of CO2, GLUCOSE, BUN, CREATININE, CA) 09:51:00 [facility] CBC WITH DIFF 2020-04-12 [facility] of 09:51:00 [facility] POCT GLUCOSE (AUTOMATED) 2020-04-[address] [facility] ersity of 02:38:00 [facility] POCT GLUCOSE (AUTOMATED) 2020-04-11 [facility] ersity of 23:21:00 [facility] POCT GLUCOSE (AUTOMATED) 2020-04-[address] [facility] ersity of 19:30:00 [facility] POCT GLUCOSE (AUTOMATED) 2020-04-11 [facility] ersity of 14:32:00 [facility] BASIC METABOLIC PANEL (NA, K, CL, 2020-04-11 [facility] of CO2, GLUCOSE, BUN, CREATININE, CA) 10:20:00 [facility] CBC WITH DIFF 2020-04-11 Jose, [facility] of 10:20:00 [facility] POCT GLUCOSE (AUTOMATED) 2020-04-[address] [facility] ersity of 03:29:00 [facility] POCT GLUCOSE (AUTOMATED) 2020-04-10 [facility] ersity of 22:35:00 [facility] XR CHEST 1 VW 2020-04-10 Jose, [facility] of 19:42:00 [facility] POCT GLUCOSE (AUTOMATED) 2020-04-[address] [facility] ersity of 18:14:00 [facility] POCT GLUCOSE (AUTOMATED) 2020-04-10 [facility] ersity of 13:22:00 [facility] HEPATIC FUNCTION PANEL ([id number]) 2020-04-10 Jose, Genevieve [facility] of (ALB,T.PRO,BILI 12:12:00 [facility],BU/BC,ALT,AST,ALK PHOS) [place] BASIC METABOLIC PANEL (NA, K, CL, 2020-04-10 [facility] CO2, GLUCOSE, BUN, CREATININE, CA) 12:12:00 [facility] CBC WITH DIFF 2020-04-10 [facility] of 12:12:00 [facility] POCT GLUCOSE (AUTOMATED) 2020-04-[address] [facility] ersity of 03:46:00 [facility] POCT GLUCOSE (AUTOMATED) 2020-04-[address] [facility] ersity of 00:18:00 [facility] XR KUB 2020-04-09 [facility] of 11:59:58 [facility] BASIC METABOLIC PANEL (NA, K, CL, 2020-04-09 Tyrel [facility] of CO2, GLUCOSE, BUN, CREATININE, CA) 11:48:00 [facility] PROTHROMBIN TIME / INR 2020-04-09 [facility] of 11:48:00 [facility] FIBRINOGEN 2020-04-09 [facility] 11:48:00 [facility] MAGNESIUM 2020-04-09 [place], [facility] of 11:48:00 [facility] POCT GLUCOSE (AUTOMATED) 2020-04-[address] [facility] ersity of 03:47:00 [facility] BASIC METABOLIC PANEL (NA, K, CL, 2020-04-08 [facility] CO2, GLUCOSE, BUN, CREATININE, CA) 23:49:00 [facility] POCT GLUCOSE (AUTOMATED) 2020-04-08 Fred Mccoy [facility] ity of 22:57:00 [facility] URINALYSIS 2020-04-08 [facility] 22:08:00 [facility] POTASSIUM, URINE RANDOM 2020-04-08 [facility] 22:08:00 [facility] SODIUM, URINE RANDOM 2020-04-08 [facility] [place] of 22:08:00 [facility] OSMOLALITY URINE 2020-04-08 [facility] [place] of 22:08:00 [facility] POCT GLUCOSE (AUTOMATED) 2020-04-08 [facility]ccoy [facility] it[facility] of 19:58:00 [facility] BASIC METABOLIC PANEL (NA, K, CL, 2020-04-08 [facility] CO2, GLUCOSE, BUN, CREATININE, CA) 15:53:00 [facility] BASIC METABOLIC PANEL (NA, K, CL, 2020-04-08 [facility] CO2, GLUCOSE, BUN, CREATININE, CA) 09:18:00 [facility] CBC WITHOUT DIFF 2020-04-08 [facility] of 09:18:00 [facility] PROTHROMBIN TIME / INR 2020-04-08 [facility] of 09:18:00 [facility] FIBRINOGEN 2020-04-08 [facility] of 09:18:00 [facility] MAGNESIUM 2020-04-08 [facility] of 09:18:00 [facility] BASIC METABOLIC PANEL (NA, K, CL, 2020-04-08 [place] [id number], GLUCOSE, BUN, CREATININE, CA) 02:32:00 [facility] POCT GLUCOSE (AUTOMATED) 2020-04-08 [facility] Mccoy [facility] of 02:28:00 [facility] POCT GLUCOSE (AUTOMATED) 2020-04-08 Fred Mccoy [facility] ity of 01:45:00 [facility] BASIC METABOLIC PANEL (NA, K, CL, 2020-04-07 Tyrel [facility] of CO2, GLUCOSE, BUN, CREATININE, CA) 20:13:00 [facility] CBC WITHOUT DIFF 2020-04-07 [facility] of 20:13:00 [facility] MAGNESIUM 2020-04-07 [facility] of 20:13:00 [facility] POCT GLUCOSE (AUTOMATED) 2020-04-07 MccoyFred nieves [facility] ity of 18:15:00 [facility] POCT GLUCOSE (AUTOMATED) 2020-04-07 [facility] of 14:22:00 [facility] CBC WITHOUT DIFF 2020-04-07 [facility] 07:16:00 [facility] BASIC METABOLIC PANEL (NA, K, CL, 2020-04-07 [facility] CO2, GLUCOSE, BUN, CREATININE, CA) 07:15:00 [facility] PROTHROMBIN TIME / INR 2020-04-07 [facility] 07:15:00 [facility] FIBRINOGEN 2020-04-07 [facility] 07:15:00 [facility] POCT GLUCOSE (AUTOMATED) 2020-04-07 Fred Mccoy [facility] ity of 02:05:00 [facility] POCT GLUCOSE (AUTOMATED) 2020-04-06 Fred Mccoy [facility] ity of 21:39:00 [facility] EKG-12 LEAD 2020-04-06 Doctor Unassigned, [place] of 20:14:31 [place] [facility] CBC WITHOUT DIFF 2020-04-06 [facility] 17:50:00 [facility] CBC WITHOUT DIFF 2020-04-06 [facility] of 14:45:00 [facility] POCT GLUCOSE (AUTOMATED) 2020-04-06 Fred Mccoy [facility] ity of 14:44:00 [facility] BASIC METABOLIC PANEL (NA, K, CL, 2020-04-06 [facility] CO2, GLUCOSE, BUN, CREATININE, CA) 09:20:00 [facility] CBC WITHOUT DIFF 2020-04-06 [facility] 09:20:00 [facility] PROTHROMBIN TIME / INR 2020-04-06 [facility] of 09:20:00 [facility] ACTIVATED PARTIAL THRMPLAS [place] 2020-04-06 [facility] of 09:20:00 [facility] FIBRINOGEN 2020-04-06 [facility] of 09:20:00 [facility] CLOSTRIDIUM DIFFICILE TOXIN 2020-04-06 [facility] ersity of 06:44:00 [facility] PREPARE PACKED RBC 2020-04-06 [facility] f 04:48:05 [facility] BASIC METABOLIC PANEL (NA, K, CL, 2020-04-06 [facility] CO2, GLUCOSE, BUN, CREATININE, CA) 04:09:00 [facility] CBC WITHOUT DIFF 2020-04-06 [facility] of 04:09:00 [facility] POCT GLUCOSE (AUTOMATED) 2020-04-06 Fred Mccoy [facility] ity of 02:34:00 [facility] US RETROPERITONEAL LIMITED 2020-04-06 [place], [facility] of 00:00:00 [facility] BASIC METABOLIC PANEL (NA, K, CL, 2020-04-05 [place], [place] of CO2, GLUCOSE, BUN, CREATININE, CA) 23:55:00 [facility] CBC WITHOUT DIFF 2020-04-05 [facility] 23:55:00 [facility] PHOSPHORUS 2020-04-[address] [facility] 23:55:00 [facility] UREA NITROGEN, URINE RANDOM 2020-04-05 [facility], [facility] ersity of 21:03:00 [facility] SODIUM, URINE RANDOM 2020-04-05 [facility] 21:03:00 [facility] PROTEIN CREAT RATIO URINE RANDOM 2020-04-05 [facility] 21:03:00 [facility] INTACT PTH CALCIUM GROUP 2020-04-05 Javon Luna [facility] ity of 20:52:00 [facility] CBC WITHOUT DIFF 2020[facility]04[facility]05 [facility] 20:22:00 [facility] XR KUB 2020-04-05 [facility] 19:26:00 [facility] POCT GLUCOSE (AUTOMATED) 2020-04-05 Fred Mccoy [facility] ity of 18:19:00 [facility] BASIC METABOLIC PANEL (NA, K, CL, 2020-04-05 Ald[place], [facility] CO2, GLUCOSE, BUN, CREATININE, CA) 17:57:00 [facility] PREPARE PACKED RBC 2020-04-05 [facility] 16:58:07 [facility] FIBRINOGEN 2020-04-05 [facility] 14:36:00 [facility] LACTATE DEHYDROGENASE 2020-04-05 [facility] 14:36:00 [facility] POCT GLUCOSE (AUTOMATED) 2020-04-05 Fred Mccoy [facility] ity of 13:24:00 [facility] BASIC METABOLIC PANEL (NA, K, CL, 2020-04-05 [employer] of CO2, GLUCOSE, BUN, CREATININE, CA) 12:18:00 [facility] CBC WITHOUT DIFF 2020-04-05 Ottoniel Nor[place] of 12:18:00 [facility] RETICULOCYTES AUTOMATED 2020-04-05 [facility] 12:18:00 [facility] HAPTOGLOBIN, SERUM 2020-04-05 [facility] 06:17:00 [facility] HEPATIC FUNCTION PANEL ([id number]) 2020-04-05 Tyrel [facility] of (ALB,T.PRO,BILI 06:17:00 [facility],BU/BC,ALT,AST,ALK PHOS) [place] BASIC METABOLIC PANEL (NA, K, CL, 2020-04-05 Tyrel [facility] CO2, GLUCOSE, BUN, CREATININE, CA) 06:17:00 [facility] CBC WITHOUT DIFF 2020-04-05 [facility] 06[facility]17:00 [facility] PROTHROMBIN TIME / INR 2020-04-05 [facility] 06:17:00 [facility] FIBRINOGEN 2020-04-05 [facility] 06:17:00 [facility] POCT GLUCOSE (AUTOMATED) 2020-04-05 Fred Mccoy [facility] ity of 02:14:00 [facility] PREPARE PACKED RBC 2020-04-05 [facility] 01:41:43 [facility] POCT GLUCOSE (AUTOMATED) 2020-04-04 Fred Mccoy [facility] ity of 23:57:00 [facility] CBC WITHOUT DIFF 2020-04-04 [facility] 21:35:00 [facility] IR EMBOLIZATION ARTERIAL OR VENOUS 2020-04-04 [facility] HEMORRHAGE OR LYMPHATIC 21:06:25 [facility] dical EXTRAVASATION Branch POCT GLUCOSE (AUTOMATED) 2020-04-04 Fred Mccoy [facility] ity of 17:53:00 [facility] PREPARE PACKED RBC 2020-04-04 [facility] 15:57:52 [facility] CBC WITHOUT DIFF 2020-04-04 [place], [facility] of 15:06:00 [facility] POCT GLUCOSE (AUTOMATED) 2020-04-04 Fred Mccoy [facility] ity of 15:01:00 [facility] CBC WITHOUT DIFF 2020-04-04 [place], [facility] of 08:20:00 [facility] BASIC METABOLIC PANEL (NA, K, CL, 2020[facility]04 [facility] CO2, GLUCOSE, BUN, CREATININE, CA) 06:52:00 [facility] PROTHROMBIN TIME / INR 2020-04-04 [facility] y of 06:52:00 [facility] FIBRINOGEN 2020-04-04 [facility] of 06:52:00 [facility] EXTRA TUBE LAV 2020-04-04 [facility] of 06:52:00 [facility] POCT GLUCOSE (AUTOMATED) 2020-04-04 [facility] ity of 02:12:00 [facility] EGD (ENDO) 2020-04-04 [facility] of 00:05:14 [facility] ESOPHAGOGASTRODUODENOSCOPY 2020-04-03 [facility] rsity of 23:56:00 [facility] CBC WITHOUT DIFF 2020-04-03 Aldana, [facility] 23:03:00 [facility] PREPARE PACKED RBC 2020-04-03 Aldana, [facility] 20:38:48 [facility] CBC WITHOUT DIFF 2020-04-03 Aldana, [place] of 20:20:00 [facility] BLOOD CULTURE SCREEN 2020-04-03 [facility] of 20:20:00 [facility] CBC WITH DIFF 2020-04-03 Aldana, [place] of 18:23:00 [facility] POCT GLUCOSE (AUTOMATED) 2020-04-03 Fred Mccoy [facility] ity of 18:04:00 [facility] POCT GLUCOSE (AUTOMATED) 2020-04-03 [facility] it[facility] of 14:19:00 [facility] CBC WITH DIFF 2020-04-03 Aldana, [place] of 10:52:00 [facility] PROTHROMBIN TIME / INR 2020-04-03 [facility] y of 10:52:00 [facility] FIBRINOGEN 2020-04-03 [facility] of 10:52:00 [facility] BLOOD CULTURE SCREEN 2020-04-03 Dorothy [place] of 09:46:00 [facility] CT HEAD WO CONTRAST 2020-04-03 [facility] 08:13:57 [facility] HEPATIC FUNCTION PANEL ([id number]) 2020-04-03 [facility] (ALB,T.PRO,BILI 07:07:00 [facility],BU/BC,ALT,AST,ALK PHOS) [place] BASIC METABOLIC PANEL (NA, K, CL, 2020-04-03 [facility] CO2, GLUCOSE, BUN, CREATININE, CA) 07:07:00 [facility] URINALYSIS 2020-04-03 [facility] 07:05:00 [facility] URINE CULTURE 2020-04-03 [facility] 07:05:00 [facility] HELICOBACTER PYLORI ANTIGEN, FECAL 2020-04-03 [facility] BY EIA 07:05:00 [facility] AC PANEL 20 + LACTIC ACID 2020-04-03 [facility] rsity of 06:02:00 [facility] DIFF CONSULT INTERPRETATION 2020-04-03 [facility] versity of 03:23:00 [facility] CBC WITH DIFF 2020-04-03 [facility] 03:23:00 [facility] POCT GLUCOSE (AUTOMATED) 2020-04-03 Fred Mccoy [facility] ity of 03:22:00 [facility] TRANSFUSE PACKED RBC 2020-04-03 [facility] :58:11 [facility] TRANSFUSE PACKED RBC 2020-04-03 April [facility] of 01:54:48 [facility] GASTRIN 2020-04-03 [facility] 01:27:00 [facility] POCT GLUCOSE (AUTOMATED) 2020-04-03 Fred Mccoy [facility] ity of 01:26:00 [facility] PREPARE PACKED RBC 2020-04-02 [facility] 23:24:16 [facility] EGD (ENDO) 2020-04-02 [facility] 22:51:18 [facility] ESOPHAGOGASTRODUODENOSCOPY 2020-04-02 Bryn Rick [facility] rsity of 22:38:00 [facility] CBC WITHOUT DIFF 2020-04-02 [facility] 21:49:00 [facility] TRANSFUSE PACKED RBC 2020-04-02 April [facility] of 21:16:59 [facility] PREPARE PACKED RBC 2020-04-02 [facility] of 20:27:33 [facility] CBC WITHOUT DIFF 2020-04-02 ne[facility]Formerly [facility] of 20:10:00 [facility] FIBRINOGEN 2020-04-02 [facility] of 20:10:00 [facility] XR CHEST 1 VW 2020-04-02 April [facility] of 19:49:56 [facility] MRSA / MSSA SCREEN BY PCR, NARES 2020-04-02 April [facility] of 18:16:00 [facility] COVID-19 (ID NOW RAPID TESTING) 2020-04-02 [facility] of 18:16:00 [facility] LAB ONLY COVID INTERPRETATION 2020-04-02 [facility] iversity of 18:16:00 [facility] POCT GLUCOSE (AUTOMATED) 2020-04-02 Fred Mccoy [facility] ity of 17:58:00 [facility] CBC WITH DIFF 2020-04-02 [facility] of 15:10:00 [facility] INDIRECT ANTIGLOBULIN TEST 2020-04-02 [facility] rsity of 15:10:00 [facility] ABORH INVESTIGATION 2020-04-02 [facility] f 15:10:00 [facility] IRON PANEL 2020-04-02 [facility] of 12:37:00 [facility] FERRITIN SERUM 2020-04-02 [facility] of 12:37:00 [facility] BASIC METABOLIC PANEL (NA, K, CL, 2020-04-02 [facility] CO2, GLUCOSE, BUN, CREATININE, CA) 12:36:00 [facility] POCT GLUCOSE (AUTOMATED) 2020-04-02 [facility], [facility]en [facility] ity of 03:05:00 [facility] POCT GLUCOSE (AUTOMATED) 2020-04-01 [facility], [facility] ity of 23:24:00 [facility] CLOSTRIDIUM DIFFICILE TOXIN 2020-04-01 [facility], [facility] ersity of 20:34:00 [facility] POCT GLUCOSE (AUTOMATED) 2020-04-01 [facility], [facility] ity of 18:37:00 [facility] POCT GLUCOSE (AUTOMATED) 2020-04-01 [facility], [facility] ity of 14:19:00 [facility] BASIC METABOLIC PANEL (NA, K, CL, 2020-04-01 [facility] CO2, GLUCOSE, BUN, CREATININE, CA) 11:10:00 [facility] CBC WITH DIFF 2020-04-01 [facility] of 11:10:00 [facility] POCT GLUCOSE (AUTOMATED) 2020-04-01 [facility], [facility] ity of 03:25:00 [facility] POCT GLUCOSE (AUTOMATED) 2020-03-31 [facility], [facility] ity of 14:30:00 [facility] HEPATIC FUNCTION PANEL ([id number]) 2020-03-31 [facility] niversity of (ALB,T.PRO,BILI 12:08:00 [facility],BU/BC,ALT,AST,ALK PHOS) [place] BASIC METABOLIC PANEL (NA, K, CL, 2020-03-31 [facility] CO2, GLUCOSE, BUN, CREATININE, CA) 12:08:00 [facility] CBC WITH DIFF 2020-03-31 [facility] of 12:08:00 [facility] POCT GLUCOSE (AUTOMATED) 2020-03-31 [facility], [facility] ity of 03:41:00 [facility] POCT GLUCOSE (AUTOMATED) 2020-03-30 [facility], [facility] ity of 23:18:00 [facility] US ABDOMEN COMPLETE 2020-03-30 [facility] o f 20:21:00 [facility] POCT GLUCOSE (AUTOMATED) 2020-03-30 [facility], [facility] ity of 18:17:00 [facility] POCT GLUCOSE (AUTOMATED) 2020-03-30 [facility], [facility] ity of 14:30:00 [facility] BASIC METABOLIC PANEL (NA, K, CL, 2020-03-30 [facility] CO2, GLUCOSE, BUN, CREATININE, CA) 11:07:00 [facility] CBC WITH DIFF 2020-03-30 [facility] of 11:07:00 [facility] POCT GLUCOSE (AUTOMATED) 2020-03-30 [facility], [facility] ity of 02:55:00 [facility] POCT GLUCOSE (AUTOMATED) 2020-03-29 [facility], [facility] ity of 23:57:00 [facility] CT HEAD WO CONTRAST 2020-03-29 Jose, [facility] o f 22:25:19 [facility] POCT GLUCOSE (AUTOMATED) 2020-03-29 [facility], [facility] ity of 20:24:00 [facility] POCT GLUCOSE (AUTOMATED) 2020-03-29 [facility], [facility] ity of 16:23:00 [facility] CBC WITH DIFF 2020-03-29 [facility] 10:11:00 [facility] BASIC METABOLIC PANEL (NA, K, CL, 2020-03-29 [facility] CO2, GLUCOSE, BUN, CREATININE, CA) 10:10:00 [facility] POCT GLUCOSE (AUTOMATED) 2020-03-29 [facility], [facility] ity of 03:44:00 [facility] URINALYSIS 2020-03-29 Jose, [facility] of 01:21:00 [facility] URINE CULTURE 2020-03-28 [facility] of 21:43:00 [facility] XR CHEST 1 VW 2020-03-28 [place] [facility] of 20:29:00 [facility] BLOOD CULTURE SCREEN 2020-03-28 [facility] of 13:51:00 [facility] BASIC METABOLIC PANEL (NA, K, CL, 2020-03-28 [facility] CO2, GLUCOSE, BUN, CREATININE, CA) 11:02:00 [facility] DIFF CONSULT INTERPRETATION 2020-03-28 Jose, [facility] ersity of 11:02:00 [facility] CBC WITH DIFF 2020-03-28 [place] [facility] of 11:02:00 [facility] MAGNESIUM 2020-03-28 Jose, [facility] of 11:02:00 [facility] POCT GLUCOSE (AUTOMATED) 2020-03-28 [facility], [facility] ity of 04:42:00 [facility] DERMATOPATHOLOGY TISSUE EXAM 2020-03-28 Froy [facility] versity of 00:00:00 [facility] BASIC METABOLIC PANEL (NA, K, CL, 2020-03-27 Ahmed, [facility] of CO2, GLUCOSE, BUN, CREATININE, CA) 23:05:00 [facility] CBC WITH DIFF 2020-03-27 [facility] of 23:05:00 [facility] FL MODIFIED BARIUM SWALLOW 2020-03-27 Genevieve Jose [facility] rsity of 22:39:07 [facility] POCT GLUCOSE (AUTOMATED) 2020-03-27 [facility], [facility] ity of 18:47:00 [facility] POCT GLUCOSE (AUTOMATED) 2020-03-27 [facility], [facility] ity of 15:52:00 [facility] POCT GLUCOSE (AUTOMATED) 2020-03-27 [facility], [facility] ity of 04:07:00 [facility] POCT GLUCOSE (AUTOMATED) 2020-03-26 [facility], [facility] ity of 23:46:00 [facility] HB ABO GROUPING 2020-03-26 [facility], [facility] of 20:15:00 [facility] POCT GLUCOSE (AUTOMATED) 2020-03-26 [facility], [facility] ity of 19:28:00 [facility] POCT GLUCOSE (AUTOMATED) 2020-03-26 [facility], [facility] ity of 15:11:00 [facility] URINE CULTURE 2020-03-26 Gómez, [facility] of 11:50:00 [facility] URINALYSIS 2020-03-26 [facility] of 11:49:00 [facility] BLOOD CULTURE SCREEN 2020-03-26 [facility] of 10:28:00 [facility] BLOOD CULTURE SCREEN 2020-03-26 [facility], [facility] of 10:21:00 [facility] FOLATE 2020-03-26 [facility] of 10:18:00 [facility] THYROID STIMULATING HORMONE 2020-03-26 [facility] ersity of 10:18:00 [facility] HEPATIC FUNCTION PANEL ([id number]) 2020-03-26 Gómez, [facility] of (ALB,T.PRO,BILI 10:18:00 [facility],BU/BC,ALT,AST,ALK PHOS) [place] BASIC METABOLIC PANEL (NA, K, CL, 2020-03-26 [facility] of CO2, GLUCOSE, BUN, CREATININE, CA) 10:18:00 [facility] URIC ACID 2020-03-26 Gómez, [facility] of 10:18:00 [facility] MAGNESIUM 2020-03-26 Gómez, [facility] of 10:18:00 [facility] VITAMIN B12, LEVEL 2020-03-26 Gómez, [facility] of 10:18:00 [facility] C-REACTIVE PROTEIN 2020-03-26 Gómez, [facility] of 10:17:00 [facility] PROTHROMBIN TIME / INR 2020-03-26 [facility] 10:16:00 [facility] ACTIVATED PARTIAL THRMPLAS ELHAM 2020-03-26 Gómez, [facility] niversity of 10:16:00 [facility] SEDIMENTATION RATE 2020-03-26 Gómez, [facility] of 10:14:00 [facility] DIFF CONSULT INTERPRETATION 2020-03-26 Gómez, [facility] ersity of 10:14:00 [facility] CBC WITH DIFF 2020-03-26 Gómez, [facility] of 10:14:00 [facility] GLYCOSYLATED HEMOGLOBIN (A1C) 2020-03-26 Gómez, [facility] iversity of 10:13:00 [facility] COVID-19 (ID NOW RAPID TESTING) 2020-03-26 [facility] of 10:01:00 [facility] LAB ONLY COVID INTERPRETATION 2020-03-26 Gómez, [facility] iversity of 10:01:00 [facility] AUTHORIZATION FOR RELEASE OF PHI 2020-03-26 Doctor Unassign ed, [place] of 06:01:00 [place] [facility] POCT GLUCOSE (AUTOMATED) 2020-03-26 Kirsten Horne [facility] of 04:55:00 [facility] HOSPITAL ADMISSION 2020-03-25 Doctor Unassigned, [facility] 06:01:00 [place] [facility] MAGNESIUM 2020-01-24 [facility]acey [facility] [place] of 07:35:00 [facility] BASIC METABOLIC PANEL (NA, K, CL, 2020-01-24 Tracey LeeYuly [facility] of CO2, GLUCOSE, BUN, CREATININE, CA) 07:35:00 [facility] CBC WITH DIFF 2020-01-24 Tracey Wild [facility] [place] of 07:35:00 [facility] BASIC METABOLIC PANEL (NA, K, CL, 2020-01-23 Ezzo, [facility] of CO2, GLUCOSE, BUN, CREATININE, CA) 21:41:00 [facility] IR INTRAVASCULAR STENT WITHOUT 2020-01-23 Patricia Rose [place] of DISTAL EMBOLIC PROTECTION 16:58:00 [facility] TYPE AND SCREEN 2020-01-23 Patricia Rose [place] of 14:45:00 [facility] ASSIGNMENT OF BENEFITS 2020-01-22 Doctor Unassigned, Univer sity of 17:33:04 [place] [facility] ASSIGNMENT OF BENEFITS 2020-01-15 Doctor Unassigned, Univer sity of 15:05:38 [place] [facility] CBC WITH DIFF 2019-11-22 [facility] of 16:36:00 [facility] MAGNESIUM 2019-11-22 [facility] of 09:28:00 [facility] BASIC METABOLIC PANEL (NA, K, CL, 2019-11-22 [facility] of CO2, GLUCOSE, BUN, CREATININE, CA) 09:28:00 [facility] CBC WITH DIFF 2019-11-22 [facility] of 09:28:00 [facility] IR EMBOLIZATION CENTRAL NERVOUS 2019-11-[address] [facility] SYSTEM (MEDICAL INSURANCE CODING SPECIALIST) PERMANENT 18:16:[address] [facility] ical [place] POCT ACT LOW RANGE 2019-11-21 Patricia Rose [place] of 15:37:00 [facility] CBC WITH DIFF 2019-11-21 [facility] of 14:15:00 [facility] PROTHROMBIN TIME / INR 2019-11-21 [facility] y of 14:15:00 [facility] BASIC METABOLIC PANEL (NA, K, CL, 2019-11-21 [facility] of CO2, GLUCOSE, BUN, CREATININE, CA) 14:14:00 [facility] HB ABO GROUPING 2019-11-21 [facility] of 13:43:00 [facility] Plan of Care Planned Activity Planned Date [...] Type Clinicians Facility Department ID 2021-02-08 Emergency [facility] [id number] [facility]08 [facility] U [facility] [id number] Univers [facility]-01[facility]14 Inpatient [facility] [id number] SLE 14:24:15 2020-05-07 2020-05-07 Orders Doctor MASSEY [id number] 00:00:00 00:00:00 Only Unassigned, CLIVE [id number] [facility] [id number] 2020-05-07 2020-05-07 Orders Doctor SHILPA [id number] Univers 00:00:00 00:00:00 Only Unassigned, CLIVE [id number] ity of [facility] [id number] Keagan as [id number] [facility] [address] 2020-05-03 2020-05-03 Transition Jaz Castillo 1.2.840.114 [id number] 00:00:00 00:00:00 of Care Ermias A Ly [id number] [place] [id number] 2020-05-03 2020-05-03 Transition Jaz Castillo [id number] [facility] 00:00:00 00:00:00 of Care Ermias A Ly [id number] [place]y [id number] [id number] [facility] [address] 2020-04-26 2020-05-02 [facility] 1.2.840 .114 [id number] 19:53:00 21:15:00 Encounter Ezzo, [facility] [id number] [place] [id number] [place] [id number] [place] [address] ([facility]) 2020-04-26 2020-05-02 [facility] 1.2.840 .114 [id number] [facility] 19:53:00 21:15:00 Encounter Ezzo, [facility] [id number] ity of [place] [phone] [facility] [address] ([facility]) 2020-04-19 2020-04-19 Transition Jaz Castillo 1.2.840.114 [id number] 00:00:00 00:00:00 of Care Ermias A Ly [id number] [place] [id number] [id number] 403 2020-04-19 2020-04-19 Patient Tony [facility] 1.2.840.114 [id number] 00:00:00 00:00:00 Outreach Rojelio PRIMARY [id number] [place] [facility] [id number] PAVILLION [id number] 388 2020-04-19 2020-04-19 Transition Jaz Castillo 1.2.840.114 [id number] Univers 00:00:00 00:00:00 of Care Ermias Reyesy [id number] ity [place] [id number] [facility] [address] 2020-04-19 2020-04-19 Patient Tony [facility] 1.2.840.114 [id number] Univers 00:00:00 00:00:00 Outreach Rojelio PRIMARY [id number] i ty of [place]2.7.2.686 [place]AV[place] [id number] [place] [address] 2020-03-25 2020-04-18 [facility] Kirsten Sharp 1.2.8 40.114 [id number] 20:15:00 20:11:00 Encounter Desmond Mccoylshan Clive [id number] [facility] [id number] [id number] [facility] 2020-03-25 2020-04-18 [facility] Kirsten Sharp 1.2.8 40.114 [id number] [facility] 20:15:00 20:11:00 Encounter Fred Mccoy Clive [id number] ity of [facility] 4.2.7.2.686 Destinee Howard [id number] [facility] [address] 2020-04-02 2020-04-02 Anesthesia [facility] 1.2.840.114 [id number] 16:49:00 17:43:00 Abhinav LEDESMA 350.1.13.10 SCIENCES 4.2.7.2.686 BLDG [id number] 2020-04-02 2020-04-02 Anesthesia Rissa [facility] 1.2.840.114 [id number] Univers 16:49:00 17:43:00 Abhinav LEDESMA [id number] ity of SCIENCES 4.2.7.2.686 Keagan as BLDG [id number] [facility] [address] 2020-03-25 2020-03-25 Telephone Khai Carrasco [facility] 1.2.840.114 [id number] 00:00:00 00:00:00 [facility] [id number] [place] [id number] Guerra [id number] [place] [address] Office Building 2020-03-25 2020-03-25 Telephone Khia Carrasco [facility] 1.2.840.114 [id number] Univers 00:00:00 00:00:00 [facility] Hospital 350.1.13.10 [place] [phone] [facility] [address] Office [address] 2020-02-01 2020-02-01 Outpatient Gur[facility] [id number] Univers 09:30:00 09:30:00 [facility] [id number] ity [facility] 2020-02-01 2020-02-01 Outpatient Gurdeep [facility] [id number] Univers 09:30:00 09:30:00 BILAL ity [facility] 2020-01-25 2020-01-25 Transition Jaz Castillo 1.2.840.114 [id number] 00:00:00 00:00:00 of Care Ermias Ly 350.1.13.10 [place] 4.2.7.2.686 [id number] 403 2020-01-25 2020-01-25 Transition Jaz Castillo 1.2.840.114 [id number] Univers 00:00:00 00:00:00 of Care Ermias Ly 350.1.13.10 [place] [id number] [facility] [address] 2020-01-23 2020-01-24 Hospital Unknown, Attending [facility] 1.2.84 0.114 [id number] 10:26:00 11:59:00 Encounter Khai Carrasco [facility] 350.1.13. 10 [place] 4.2.7.2.686 [place] [phone] [place] [address] ([facility]) 2020-01-23 2020-01-24 Hospital Unknown, Attending [facility] 1.2.84 0.114 [id number] Univers 10:26:00 11:59:00 Encounter Khai Carrasco [facility] 350.1.13. 10 ity of [place] Kathleen Chao [place] 4.2.7.2.686 [place] Red Catalino Mandi Guerra [phone] [address] ([facility]) 2020-01-24 2020-01-24 Telephone Khai Carrasco [facility] 1.2.840.114 [id number] 00:00:00 00:00:00 [place] [facility] 350.1.13.10 [place] 4.2.7.2.686 [place] [id number] [place] [address] Office Building 2020-01-24 2020-01-24 Telephone Khai Carrasco [facility] 1.2.840.114 [id number] Univers 00:00:00 00:00:00 [facility] 350.1.13.10 it y of [place] 4.2.7.2.686 Isidro noguera Guerra [phone] [place] [address] [address] Office Building 2020-01-23 2020-01-23 Outpatient R MILTON [facility] [id number] Univers 11:00:00 11:00:00 PATRICIA [id number] ity [facility] 2020-01-23 2020-01-23 Outpatient R MILTON [facility] [id number] Univers 11:00:00 11:00:00 PATRICIA ity [facility] 2020-01-22 2020-01-22 Outpatient R [facility] [id number] Univers 13:00:00 13:00:00 [id number] ity [facility] 2020-01-22 2020-01-22 Outpatient R KHAI CARRASCO [facility] [id number] Univers 13:00:00 13:00:00 ity [facility] 2020-01-22 2020-01-22 Web Art Director Carlos Vargas [facility] 1.2.840.114 [id number] 12:34:09 12:49:09 Visit Lab Main José Miguel 350.1.13.10 [place] 4.2.7.2.686 Professio [id number] [address] 2020-01-22 2020-01-22 Web Art Director Carlos Vargas Lab Main [facility] 1.2.8 40.114 [id number] Univers 12:34:09 12:49:09 Visit Khai Carrasco 350.1.13.1 0 it[place] of [place] [id number] [place] [address] 2020-01-22 2020-01-22 Orders Doctor SHILPA 1.2.840.114 [id number] 00:00:00 00:00:00 Only Unassigned, CLIVE 350.1.13.10 [facility] 4.2.7.2.686 [id number] [facility] 2020-01-22 2020-01-22 Orders Doctor SHILPA 1.2.840.114 [id number] Univers 00:00:00 00:00:00 Only Unassigned, CLIVE 350.1.13.10 ity of [facility] 4.2.7.2.686 Keagan as [phone] [address] 2020-01-17 2020-01-17 Web Art Director [facility] UNIVERSIT 1.2.840.114 [id number] 08:19:12 08:49:12 Visit Y HEALTH 350.1.13.10 CLINICS 4.2.7.2.686 [phone] [facility] 2020-01-17 2020-01-17 Web Art Director [facility] UNIVERSIT 1.2.840.114 [id number] Univers 08:19:12 08:49:12 Visit Patricia Rose Y HEALTH 350.1.13.1 0 ity of CL[place] [phone] [address] 2020-01-17 2020-01-17 Outpatient R [facility] [id number] Univers 08:30:00 08:30:00 ity of [facility] 2020-01-17 2020-01-17 Outpatient [facility] [id number] Univers 08:30:00 08:30:00 PATRICIA brown [facility] 2020-01-15 2020-01-15 Web Art Director Vls-Lab [facility] 1.2.840.114 [id number] 12:07:39 12:22:39 Visit SPECIALTY 350.1.13.10 CARE 4.2.7.2.686 CENTER AT [phone] FRANCISCO JAVIER [address] [place] [address] 2020-01-15 2020-01-15 Web Art Director Vls-Lab [facility] 1.2.840.114 [id number] Univers 12:07:39 12:22:39 Visit Khai Carrasco Man SPECIALTY 350.1.13. 10 ity of [facility] 4.2.7.2.686 [facility] CENTER AT [phone] [place] judiekatya MCINTYRE [address] [place] [address] 2020-01-15 2020-01-15 Outpatient R [facility] [id number] Univers 10:30:00 10:30:00 stephanie [facility] 2020-01-15 2020-01-15 Outpatient R MILTON [facility] [id number] Univers 10:30:00 10:30:00 PATRICIA brown [facility] 2020-01-15 2020-01-15 Laboratory Only, [facility] 1.2.840.114 [id number] 10:08:01 10:23:01 Only Test [place] 350.1.13.10 [place] 4.2.7.2.686 [place] [id number] [facility] 2020-01-15 2020-01-15 Laboratory Only, Adc Test [facility] 1.2.840. 114 [id number] Univers 10:08:01 10:23:01 Only Patricia Rose 350.1.13.1 0 ity [facility] 4.2.7.2.686 [facility] [id number] [address] 2020-01-15 2020-01-15 Orders Doctor MASSEY 1.2.840.114 [id number] 00:00:00 00:00:00 Only Unassigned, CLIVE 350.1.13.10 [facility] 4.2.7.2.686 [id number] 009 2020-01-15 2020-01-15 Orders Doctor MASSEY 1.2.840.114 [id number] Univers 00:00:00 00:00:00 Only Unassigned, CLIVE 350.1.13.10 ity of [facility] 4.2.7.2.686 Keagan as [phone] [address] 2020-01-08 2020-01-08 Office Khai Carrasco 1.2.840.114 [id number] 10:52:01 16:03:43 Visit [facility] 350.1.13.10 [place] 4.2.7.2.686 [place] [phone] [place] [address] Office Building 2020-01-08 2020-01-08 Office Khai Carrasco DEJAYESH 1.2.840.114 [id number] Univers 10:52:01 16:03:43 Visit [facility] 350.1.13.10 [place] [id number] [address] Office Building 2020-01-08 2020-01-08 Outpatient R DANILO KHAI [facility] [id number] [id number] Univers 11:15:00 11:15:00 [id number] ity of [facility] 2020-01-08 2020-01-08 Outpatient R KHAI CARRASCO [facility] [id number] Univers 11:15:00 11:15:00 ity [facility] 2020-01-05 2020-01-05 Telephone Khai Carrasco [facility] 1.2.840.114 [id number] Univers 00:00:00 00:00:00 [facility] 350.1.13.10 [place] [phone] [address] Office Building 2020-01-01 2020-01-01 Outpatient R KHAI CARRASCO [facility] [id number] [id number]-20 Univers 11:00:00 11:00:00 [id number] ity [facility] 2020-01-01 2020-01-01 Outpatient R KHAI CARRASCO [facility] [id number] Univers 11:00:00 11:00:00 ity [facility] 2019-11-24 2019-11-24 Transition Jaz Castillo 1.2.840.114 [id number] Univers 00:00:00 00:00:00 of Carson Velasquez Ly 350.1.13.10 it[place] [id number] [address] 2019-11-21 2019-11-23 Hospital Ortega Álvarez [facility] 1.2.84 0.114 [id number] Univers 13:47:00 14:25:00 Encounter Benjamin Nina [facility] 350.1.13.10 ity of [place]Kathleen Zhanna [place] 4.2.7.2.686 [place] Catalino Red Mandi Guerra [phone] [address] ([facility]) 2019-11-21 2019-11-21 Outpatient [facility] [id number]-20 Univers 09:00:00 09:00:00 PATRICIA [id number] ity [facility] 2019-11-21 2019-11-21 Outpatient [facility] [id number] Univers 09:00:00 09:00:00 [facility] 2019-11-16 Outpatient R MILTON [facility] [id number] Univers 11:00:00 11:00:00 PATRICIA [facility] 2019-11-16 2019-11-16 Outpatient R [facility] [id number] -[id number] Univers 10:15:00 10:15:00 [facility] 2019-11-16 2019-11-16 Laboratory Only, Clc Bls Test [facility] 1.2. 840.114 [id number] Univers 09:20:36 09:35:36 Only Patricia Rose [facility] 350.1.13.10 [place] [id number] [address] Office Building 2019-11-16 2019-11-16 Web Art Director Draw, Clc-Bls Lab [facility] 1.2.8 40.114 [id number] Univers 09:20:09 09:35:09 Visit Patricia Rose [facility] 350.1.13.10 [place] [id number] [address] Office Building 2019-11-15 2019-11-15 Telephone [place] [facility] 1.2.840.114 [id number] Univers 00:00:00 00:00:00 Patricia Heck [facility] 350.1.13.10 i [place] [phone] [address] Office Building 2019-11-06 2019-11-06 Chester Rose [facility] 1.2.739.235 [id number] Univers 00:00:00 00:00:00 Management Patricia [facility] 350.1.13.10 [place] [id number] [address] Office Building 2019-10-30 2019-10-30 Office Khai Carrasco [facility] 1.2.840.114 [id number] Univers 09:42:30 10:19:11 Visit India Avendaño [facility] 350.1.13.10 [place] [id number] [address] Office Building 2019-10-30 2019-10-30 Outpatient KHAI LUU [facility] [id number] Univers 10:00:00 10:00:00 ity of [facility] 2019-09-07 2019-09-07 Outpatient ELIEZER KHAI CARRASCO [facility] [id number] SLE 00:00:00 00:00:00 2019-09-06 2019-09-06 Outpatient [facility] [id number] SLEH 00:00:00 00:00:00 2019-09-06 2019-09-06 Outpatient [facility] [id number] SLEH 00:00:00 00:00:00 2019-09-06 2019-09-06 Outpatient [facility] [id number] SLE 00:00:00 00:00:00 2019-08-30 2019-08-30 Outpatient [facility] [id number] SLE 00:00:00 00:00:00 2019-07-04 2019-07-04 Outpatient [facility] [id number] [facility]H 00:00:00 00:00:00 [id number] Results Test Description Test Time Test Comments Results Result Comments Source POCT GLUCOSE (AUTOMATED) 2020-05-03 03:04:00 Test Item Value Reference Range Interpretation Comme nts POCT GLU (test code = 0607810259) 151 mg/dL 70-110 H Lab Interpretation (test code = 92370-6) Abnormal [facility] GLUCOSE (AUTOMATED)2020-05-03 00:01:00 Test Item Value Reference Range Interpretation Comments POCT GLU (test code = 6642063267) 115 mg/dL 70-110 H Lab Interpretation (test code = Abnormal 90562-8) [facility]APID [facility]ING[facility]2020-05-02 23:47:00 Test Item Value Reference Range Interpretation Comments SARS-CoV-2 Rapid ID NOW Not Detected Not Detected (test code = 76107-3) JACI (test code = JACI) ID NOW COVID-19 Assay is an isothermal nucleic acid amplification test intended for the qualitative detection of nucleic acid from SARS-CoV-2 viral RNA in nasopharyngeal (TUB ATTENDANT) specimens. It is used under Emergency Use [...] indicated. Lab Interpretation Normal (test code = 18872-8) [facility] GLUCOSE (AUTOMATED)2020-05-02 19:14:00 Test Item Value Reference Range Interpretation Comments POCT GLU (test code = 5062892659) 126 mg/dL 70-110 H Lab Interpretation (test code = Abnormal 54190-1) [facility] GLUCOSE (AUTOMATED)2020-05-02 18:59:00 Test Item Value Reference Range Interpretation Comments POCT GLU (test code = 2149397976) 119 mg/dL 70-110 H Lab Interpretation (test code = Abnormal 38142-5) [facility] GLUCOSE (AUTOMATED)2020-05-02 16:10:00 Test Item Value Reference Range Interpretation Comments POCT GLU (test code = 3337084073) 148 mg/dL 70-110 H Lab Interpretation (test code = Abnormal 44749-8) [facility]2020-05-02 03:03:00 Test Item Value Reference Range Interpretation Comments POCT GLU (test code = 6059513521) 135 mg/dL 70-110 H Lab Interpretation (test code = Abnormal 33042-0) [facility] COVID [id number] 19:44:00COVID DMT InterpretationInterpretation/Recommendations: Molecular NAAT Tests for Active Infection with the SARS-CoV-2 Virus: This patient has a history of testing negative on multiple occasions for hthLVFO-WiC-2 virus that causes COVID-19 illness, with no [...] COVID-19 testing the patient has had at [facility], including molecular NAAT testing (more commonly known as PCR testing and Rapid ID Now testing) and antibody testing. It does not take into account any testing that a patient has had outside of the [facility] medical record. [facility] LABORATORY SERVICESCOVID ResultsSARS- CoV-2 NAAT (no [...] ? ? 01/22/2020 ? Not Detected ? [facility] PO[facility]UCOSE (AUTOMATED)2020-05-01 15:09:00 Test Item Value Reference Range Interpretation Comments POCT GLU (test code = 3563605004) 109 mg/dL 70-110 Lab Interpretation (test code = Normal 21790-0) [facility] GLUCOSE (AUTOMATED)2020-05-01 02:43:00 Test Item Value Reference Range Interpretation Comments POCT GLU (test code = 6101805286) 132 mg/dL 70-110 H Lab Interpretation (test code = Abnormal 07005-2) [facility] GLUCOSE (AUTOMATED)2020-05-01 00:46:00 Test Item Value Reference Range Interpretation Comments POCT GLU (test code = 7423176316) 118 mg/dL 70-110 H Lab Interpretation (test code = Abnormal 43737-8) [facility] GLUCOSE (AUTOMATED)2020-04-30 18:53:00 Test Item Value Reference Range Interpretation Comments POCT GLU (test code = 8431110727) 147 mg/dL 70-110 H Lab Interpretation (test code = Abnormal 69793-0) [facility] GLUCOSE (AUTOMATED)2020-04-30 15:36:00 Test Item Value Reference Range Interpretation Comments POCT GLU (test code = 4076287871) 104 mg/dL 70-110 Lab Interpretation (test code = Normal 59573-5) [facility] GLUCOSE (AUTOMATED)2020-04-30 11:59:00 Test Item Value Reference Range Interpretation Comments POCT GLU (test code = 8560937831) 93 mg/dL 70-110 Lab Interpretation (test code = Normal 83048-2) [facility] GLUCOSE (AUTOMATED)2020-04-30 08:06:00 Test Item Value Reference Range Interpretation Comments POCT GLU (test code = 6322069734) 99 mg/dL 70-110 Lab Interpretation (test code = Normal 66157-1) [facility] GLUCOSE (AUTOMATED)2020-04-30 04:22:00 Test Item Value Reference Range Interpretation Comments POCT GLU (test code = 1725148858) 120 mg/dL 70-110 H Lab Interpretation (test code = Abnormal 86311-0) [facility] GLUCOSE (AUTOMATED)2020-04-30 00:13:00 Test Item Value Reference Range Interpretation Comments POCT GLU (test code = 9665197165) 123 mg/dL 70-110 H Lab Interpretation (test code = Abnormal 87303-1) [facility] GLUCOSE (AUTOMATED)2020-04-29 19:46:00 Test Item Value Reference Range Interpretation Comments POCT GLU (test code = 0473822015) 133 mg/dL 70-110 H Lab Interpretation (test code = Abnormal 20729-3) [facility] GLUCOSE (AUTOMATED)2020-04-29 19:10:00 Test Item Value Reference Range Interpretation Comments POCT GLU (test code = 9266548545) 121 mg/dL 70-110 H Lab Interpretation (test code = Abnormal 56816-8) [facility] GLUCOSE (AUTOMATED)2020-04-29 15:08:00 Test Item Value Reference Range Interpretation Comments POCT GLU (test code = 5683079772) 123 mg/dL 70-110 H Lab Interpretation (test code = Abnormal 13993-8) [facility] METABOLIC PANEL (NA, K, CL, CO2, GLUCOSE, BUN, CREATININE, CA)2020-04-29 10:37:00 Test Item Value Reference Range Interpretation Comments NA (test code = 135 mmol/L 135-145 5872178245) K (test code = 3.7 mmol/L 3.5-5 7908664406) CL (test code = 103 mmol/L 98-108 0052611713) CO2 TOTAL (test code = 29 mmol/L 23-31 2366096121) AGAP (test code = 2-16 9654070774) BUN (test code = 10 mg/dL 7-23 2536101118) GLUCOSE (test code = 127 mg/dL 70-110 H 1946157409) CREATININE (test code = 0.82 mg/dL 0.5-1.04 1632139356) CALCIUM (test code = 7.8 mg/dL 8.6-10.6 L 4796637807) eGFR Calculation mL/min/1.73m2 (Non-) (test code = 4472817779) eGFR Calculation mL/min/1.73m2 () (test code = 8912069897) JACI (test code = JACI) Association of [...] tests). Lab Interpretation Abnormal (test code = 42080-3) [facility] WITH [id number] 10:27:00 Test Item Value Reference Range Interpretation [...] (test code = 58.4 fL 39-49.9 H 91674-8) RDW-CV (test code = 18.3 % 12-15.5 H 788-0) PLT (test code = See_Comment [Automated 777-3) message] The system which generated this result transmit shira reference range : 166 - 358 10*3/ ?L. The reference range was not u sed to interpret th is result as normal/abnormal . MPV (test code = 9.9 fL 9.5-12.9 08032-3) NRBC/100 WBC (test See_Comment [Automat ed code = 8217097346) message] The system which generated this result transmit shira reference range : 0.0 - 10.0 /100 WBCs. The reference range was not used to interpret this result as normal/abnormal . NRBC x10^3 (test code <0.01 See_Comment [Auto mated = 2057809989) message] The system which generated this result transmit shira reference range : 10*3/?L. The reference range was not used to interpret this result as normal/abnormal . GRAN MAT (NEUT) % 81.0 % (test code = 770-8) IMM GRAN % (test code 1.70 % = 2708513392) LYMPH % (test code = 6.7 % 736-9) MONO % (test code = 7.1 % 5905-5) EOS % (test code = 3.3 % 713-8) BASO % (test code = 0.2 % 706-2) GRAN MAT x10^3(ANC) 10.05 10*3/uL 1.88-7.09 H (test code = 3550622109) IMM GRAN x10^3 (test 0.21 10*3/uL 0-0.06 H code = 0534987761) LYMPH x10^3 (test code 0.83 10*3/uL 1.32-3.29 L = 731-0) MONO x10^3 (test code 0.88 10*3/uL 0.33-0.92 = 742-7) EOS x10^3 (test code = 0.41 10*3/uL 0.03-0.39 H 711-2) BASO x10^3 (test code 0.03 10*3/uL 0.01-0.07 = 704-7) Lab Interpretation Abnormal (test code = 68093-2) [facility] GLUCOSE (AUTOMATED)2020-04-29 10:17:00 Test Item Value Reference Range Interpretation Comments POCT GLU (test code = 8860899312) 132 mg/dL 70-110 H Lab Interpretation (test code = Abnormal 24992-6) [facility] GLUCOSE (AUTOMATED)2020-04-29 05:56:00 Test Item Value Reference Range Interpretation Comments POCT GLU (test code = 5062347064) 111 mg/dL 70-110 H Lab Interpretation (test code = Abnormal 80105-0) [facility] GLUCOSE (AUTOMATED)2020-04-29 02:26:00 Test Item Value Reference Range Interpretation Comments POCT GLU (test code = 6926356934) 152 mg/dL 70-110 H Lab Interpretation (test code = Abnormal 92114-2) [facility] GLUCOSE (AUTOMATED)2020-04-28 22:46:00 Test Item Value Reference Range Interpretation Comments POCT GLU (test code = 7685712852) 159 mg/dL 70-110 H Lab Interpretation (test code = Abnormal 70071-3) [facility] GLUCOSE (AUTOMATED)2020-04-28 18:13:00 Test Item Value Reference Range Interpretation Comments POCT GLU (test code = 7248141073) 115 mg/dL 70-110 H Lab Interpretation (test code = Abnormal 14333-9) [facility] GLUCOSE (AUTOMATED)2020-04-28 14:36:00 Test Item Value Reference Range Interpretation Comments POCT GLU (test code = 8508750356) 111 mg/dL 70-110 H Lab Interpretation (test code = Abnormal 26460-5) [facility] GLUCOSE (AUTOMATED)2020-04-28 12:03:00 Test Item Value Reference Range Interpretation Comments POCT GLU (test code = 0701553942) 105 mg/dL 70-110 Lab Interpretation (test code = Normal 58774-8) [facility] GLUCOSE (AUTOMATED)2020-04-28 08:00:00 Test Item Value Reference Range Interpretation Comments POCT GLU (test code = 8617787538) 110 mg/dL 70-110 Lab Interpretation (test code = Normal 83245-9) [facility] GLUCOSE (AUTOMATED)2020-04-28 04:18:00 Test Item Value Reference Range Interpretation Comments POCT GLU (test code = 2947517578) 145 mg/dL 70-110 H Lab Interpretation (test code = Abnormal 15734-9) [facility] GLUCOSE (AUTOMATED)2020-04-28 00:41:00 Test Item Value Reference Range Interpretation Comments POCT GLU (test code = 2620561389) 142 mg/dL 70-110 H Lab Interpretation (test code = Abnormal 14063-8) [facility] GLUCOSE (AUTOMATED)2020-04-27 21:03:00 Test Item Value Reference Range Interpretation Comments POCT GLU (test code = 2366420889) 120 mg/dL 70-110 H Lab Interpretation (test code = Abnormal 22631-7) [facility] GLUCOSE (AUTOMATED)2020-04-27 18:41:00 Test Item Value Reference Range Interpretation Comments POCT GLU (test code = 7685613796) 103 mg/dL 70-110 Lab Interpretation (test code = Normal 81054-3) [facility] GLUCOSE (AUTOMATED)2020-04-27 16:51:00 Test Item Value Reference Range Interpretation Comments POCT GLU (test code = 3043711456) 51 mg/dL 70-110 L Lab Interpretation (test code = Abnormal 77178-8) [facility] GLUCOSE (AUTOMATED)2020-04-27 16:09:00 Test Item Value Reference Range Interpretation Comments POCT GLU (test code = 2348585910) 31 mg/dL 70-110 LL Lab Interpretation (test code = Abnormal 99230-7) [facility] GLUCOSE (AUTOMATED)2020-04-27 14:11:00 Test Item Value Reference Range Interpretation Comments POCT GLU (test code = 2353576776) 74 mg/dL 70-110 Lab Interpretation (test code = Normal 56503-1) [facility] GLUCOSE (AUTOMATED)2020-04-27 13:29:00 Test Item Value Reference Range Interpretation Comments POCT GLU (test code = 9266337962) 43 mg/dL 70-110 LL Lab Interpretation (test code = Abnormal 69595-9) [facility]2020-04-27 11:18:00 Test Item Value Reference Range Interpretation Comments POCT GLU (test code = 8590194734) 91 mg/dL 70-110 Lab Interpretation (test code = Normal 66023-9) [facility]2020-04-27 10:05:00 Test Item Value Reference Range Interpretation Comments POCT GLU (test code = 7517770785) 69 mg/dL 70-110 L Lab Interpretation (test code = Abnormal 12008-4) [facility] GLUCOSE (AUTOMATED)2020-04-27 08:13:00 Test Item Value Reference Range Interpretation Comments POCT GLU (test code = 4088621642) 93 mg/dL 70-110 Lab Interpretation (test code = Normal 70300-2) [facility] GLUCOSE (AUTOMATED)2020-04-27 07:26:00 Test Item Value Reference Range Interpretation Comments POCT GLU (test code = 9135670753) 58 mg/dL 70-110 L Lab Interpretation (test code = Abnormal 01077-8) [facility]2020-04-27 06:31:00 Test Item Value Reference Range Interpretation Comments POCT GLU (test code = 2526937653) 68 mg/dL 70-110 L Lab Interpretation (test code = Abnormal 29972-9) [facility] 04:55:00 Test Item Value Reference Range Interpretation Comments APPEARANCE (test code = Turbid Clear A 1336327405) COLOR (test code = Sarai Yellow A 4356291489) PH (test code = 4.8-8.0 2691467622) SP GRAVITY (test code = 1.003-1.030 2653568438) GLU U QUAL (test code = Normal Normal 7649284376) BLOOD (test code = 2+ Negative A 9086092195) KETONES (test code = Negative Negative 7270850997) PROTEIN (test code = 100 mg/dL Negative A 2887-8) UROBILIN (test code = Normal Normal 1011684606) BILIRUBIN (test code = Negative Negative 6217232567) NITRITE (test code = Negative Negative 2945640024) LEUK TRENA (test code = 250/uL Negative A 8166839781) RBC/HPF (test code = See_Comment H [Autom ated message] 5334711056) The system Jambool generated this result transmit shira reference range : 0 - 3 HPF. The refe rence range was not u sed to interpret th is result as normal/abnormal . WBC/HPF (test code = >182 See_Comment H [Autom ated message] 0925295667) The system Jambool generated this result transmit shira reference range : 0 - 5 HPF. The refe rence range was not u sed to interpret th is result as normal/abnormal . BACTERIA (test code = Many Negative A 1041682033) MUCOUS (test code = Moderate Negative LPF A 1107631944) SQ EPITH (test code = See_Comment H [Auto mated message] 4021726537) The system Jambool generated this result transmit shira reference range : <=2 HPF. The refere nce range was not u sed to interpret th is result as normal/abnormal . WBC CLUMPS (test code = See_Comment H [Au tomated message] 5144869178) The system Jambool generated this result transmit shira reference range : <=1 HPF. The refere nce range was not u sed to interpret th is result as normal/abnormal . YEAST BUD (test code = See_Comment H [Aut omated message] 0580545217) The system Jambool generated this result transmit shira reference range : <=1 HPF. The refere nce range was not u sed to interpret th is result as normal/abnormal . Lab Interpretation (test Abnormal code = 65020-1) [facility] [id number] 04:35:08 Cardiomegaly without pericardial effusion. Mild dependent atelectasis in the lung bases without other acute pulmonaryprocess. 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 No acute process identified in the abdomen or pelvis. Small amount of air in the lumen of the urinary bladder, possibly due torecent instrumentation. Clinical correlation is suggested. RL: 460 AFC: [id number] Ordering physician: ZACHARY MCCALL Indication: Hypoglycemia, leukocytosis COMPARISON: Abdominal ultrasound dated [...] Inft User- 04/26/2020 10:36 PM CSTOrdering physician: ZACHARY Bianchidication: Hypoglycemia, leukocytosisCOMPARISON: Abdominal ultrasound dated 03/30/2020TECHNIQUE: [...] torecent instrumentation. Clinical correlation is suggested.RL: 460AFC: 65277 [facility] with cyisdjba5247-06-68 04:35:08 Cardiomegaly without pericardial effusion. Mild dependent atelectasis in the lung bases without other acute pulmonaryprocess. 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 No acute process identified in the abdomen or pelvis. Small amount of air in the lumen of the urinary bladder, possibly due torecent instrumentation. Clinical correlation is suggested. RL: 460 [facility]: [id number] Ordering physician: ZACHARY MCCALL Indication: Hypoglycemia, leukocytosis COMPARISON: Abdominal ultrasound dated [...] Inft User- 04/26/2020 10:36 PM CSTOrdering physician: ZACHARY Bianchidication: Hypoglycemia, leukocytosisCOMPARISON: Abdominal ultrasound dated 03/30/2020TECHNIQUE: [...] due torecent instrumentation. Clinical correlation is suggested.RL: 460AF: 31647 [facility] 2020-04-27 04:28:04 Within confines [...] of thebasilar artery, no interval acute intracranial abnormality.[facility] with Kmhgcbpohhvv2372-91-10 03:44:00 Test Item Value Reference Range Interpretation [...] (test code = 58.3 fL 39-49.9 H 38453-6) RDW-CV (test code = 18.6 % 12-15.5 H 788-0) PLT (test code = See_Comment H [Automated 777-3) message] The system which generated this result transmit shira reference range : 166 - 358 10*3/ ?L. The reference range was not u sed to interpret th is result as normal/abnormal . MPV (test code = 10.5 fL 9.5-12.9 49475-3) NRBC/100 WBC (test See_Comment [Automat ed code = 8439077304) message] The system which generated this result transmit shira reference range : 0.0 - 10.0 /100 WBCs. The reference range was not used to interpret this result as normal/abnormal . NRBC x10^3 (test code <0.01 See_Comment [Auto mated = 1252556650) message] The system which generated this result transmit shira reference range : 10*3/?L. The reference range was not used to interpret this result as normal/abnormal . GRAN MAT (NEUT) % 85.6 % (test code = 770-8) IMM GRAN % (test code 1.40 % = 1591347839) LYMPH % (test code = 4.9 % 736-9) MONO % (test code = 6.9 % 5905-5) EOS % (test code = 0.9 % 713-8) BASO % (test code = 0.3 % 706-2) GRAN MAT x10^3(ANC) 15.56 10*3/uL 1.88-7.09 H (test code = 9993535584) IMM GRAN x10^3 (test 0.26 10*3/uL 0-0.06 H code = 6623215874) LYMPH x10^3 (test code 0.89 10*3/uL 1.32-3.29 L = 731-0) MONO x10^3 (test code 1.26 10*3/uL 0.33-0.92 H = 742-7) EOS x10^3 (test code = 0.16 10*3/uL 0.03-0.39 711-2) BASO x10^3 (test code 0.06 10*3/uL 0.01-0.07 = 704-7) Lab Interpretation Abnormal (test code = 52202-4) [facility] [id number] 03:41:00 Test Item Value Reference Range Interpretation Comments TROPONIN I (test 0.056 ng/mL See_Comment H [Automated code = 3398235320) message] The system which generated this result [...] ? Lab Interpretation Abnormal (test code = 56011-7) [facility] NOW RAPID TESTING)2020-04-27 03:40:00 Test Item Value Reference Range Interpretation Comments SARS-CoV-2 Rapid ID NOW Not Detected Not Detected (test code = 37930-3) JACI (test code = JACI) ID NOW COVID-19 Assay is an isothermal nucleic acid amplification test intended for the qualitative detection of nucleic acid from SARS-CoV-2 viral RNA in nasopharyngeal (TUB ATTENDANT) specimens. It is used under Emergency Use [...] indicated. Lab Interpretation Normal (test code = 87459-6) [facility] (NA, K, CL, CO2, GLUCOSE, BUN, CREATININE, CA)2020-04-27 03:31:00 Test Item Value Reference Range Interpretation Comments NA (test code = 137 mmol/L 135-145 4595127699) K (test code = 3.1 mmol/L 3.5-5 L 4534558065) CL (test code = 105 mmol/L 98-108 9158475272) CO2 TOTAL (test code = 30 mmol/L 23-31 3914395586) AGAP (test code = 2-16 2849825339) BUN (test code = 16 mg/dL 7-23 8999832663) GLUCOSE (test code = 74 mg/dL 70-110 9596667251) CREATININE (test code = 0.77 mg/dL 0.5-1.04 9533845847) CALCIUM (test code = 7.7 mg/dL 8.6-10.6 L 8179326609) eGFR Calculation mL/min/1.73m2 (Non-) (test code = 2597906989) eGFR Calculation mL/min/1.73m2 () (test code = 0284838753) JACI (test code = JACI) Association of [...] tests). Lab Interpretation Abnormal (test code = 99625-7) [facility] (ALB, T.PRO, BILI T, BU/BC, ALT, AST, ALK PHOS)2020-04-27 03:31:00 Test Item Value Reference Range Interpretation Comments TOTAL BILI (test code = 4758410054) <0.1 0.1-1.1 L BILI UNCON (test code = 0435742773) 0.1 mg/dL 0.1-1.1 BILI CONJ (test code = 9421727339) 0.0 mg/dL 0-0.3 T PROTEIN (test code = 5563434150) 4.7 g/dL 6.3-8.2 L ALBUMIN (test code = 8714337811) 2.1 g/dL 3.5-5 L ALK PHOS (test code = 5704851368) 149 U/L 34-122 H ALTv (test code = 1742-6) 14 U/L 5-35 AST(SGOT) (test code = 8139191444) 21 U/L 13-40 Lab Interpretation (test code = Abnormal 68718-9) [facility] GLUCOSE (AUTOMATED)2020-04-27 01:58:00 Test Item Value Reference Range Interpretation Comments POCT GLU (test code = 9169484966) 112 mg/dL 70-110 H Lab Interpretation (test code = Abnormal 08536-6) [facility] GLUCOSE (AUTOMATED)2020-04-19 00:16:00 Test Item Value Reference Range Interpretation Comments POCT GLU (test code = 2776867906) 105 mg/dL 70-110 Lab Interpretation (test code = Normal 76511-1) [facility] METABOLIC PANEL (NA, K, CL, CO2, GLUCOSE, BUN, CREATININE, CA)2020-04-18 22:13:00 Test Item Value Reference Range Interpretation Comments NA (test code = 139 mmol/L 135-145 6585821770) K (test code = 3.5 mmol/L 3.5-5 6095845709) CL (test code = 110 mmol/L 98-108 H 7526629881) CO2 TOTAL (test code = 26 mmol/L 23-31 1605012485) AGAP (test code = 2-16 4231257414) BUN (test code = 9 mg/dL 7-23 7901796630) GLUCOSE (test code = 93 mg/dL 70-110 4205586936) CREATININE (test code = 0.65 mg/dL 0.5-1.04 9050866451) CALCIUM (test code = 7.1 mg/dL 8.6-10.6 L 6095983578) eGFR Calculation mL/min/1.73m2 (Non-) (test code = 8440978775) eGFR Calculation mL/min/1.73m2 () (test code = 6703025997) JACI (test code = JACI) Association of [...] tests). Lab Interpretation Abnormal (test code = 71473-5) [facility]2021-01-07 22:13:00 Test Item Value Reference Range Interpretation Comments MAGNESIUM (test code = 8974222610) 1.3 mg/dL 1.7-2.4 L Lab Interpretation (test code = Abnormal 79302-2) [facility]2021-01-07 19:17:00 Test Item Value Reference Range Interpretation Comments MAGNESIUM (test code = 6889811123) 1.4 mg/dL 1.7-2.4 L Lab Interpretation (test code = Abnormal 21219-5) [facility]2020-04-18 18:23:00 Test Item Value Reference Range Interpretation Comments POCT GLU (test code = 0678357246) 104 mg/dL 70-110 Lab Interpretation (test code = Normal 49192-0) [facility] METABOLIC PANEL (NA, K, CL, CO2, GLUCOSE, BUN, CREATININE, CA)2020-04-18 16:52:00 Test Item Value Reference Range Interpretation Comments NA (test code = 140 mmol/L 135-145 4253475344) K (test code = 2.7 mmol/L 3.5-5 LL 3934646461) CL (test code = 111 mmol/L 98-108 H 2040005364) CO2 TOTAL (test code = 22 mmol/L 23-31 L 8537021347) AGAP (test code = 2-16 0028750069) BUN (test code = 11 mg/dL 7-23 4710282589) GLUCOSE (test code = 96 mg/dL 70-110 8681932465) CREATININE (test code = 0.63 mg/dL 0.5-1.04 5076108503) CALCIUM (test code = 7.4 mg/dL 8.6-10.6 L 6364343097) eGFR Calculation mL/min/1.73m2 (Non-) (test code = 4291970537) eGFR Calculation mL/min/1.73m2 () (test code = 0697457612) JACI (test code = JACI) Association of [...] tests). Lab Interpretation Abnormal (test code = 67100-4) [facility]2020-04-18 15:11:00 Test Item Value Reference Range Interpretation Comments POCT GLU (test code = 7221461317) 100 mg/dL 70-110 Lab Interpretation (test code = Normal 16228-3) [facility] WITH [id number] 12:07:00 Test Item Value Reference Range Interpretation [...] (test code = 55.1 fL 39-49.9 H 51112-5) RDW-CV (test code = 19.8 % 12-15.5 H 788-0) PLT (test code = See_Comment L [Automated 777-3) message] The sy stem which generated this result transmitted reference range : 166 - 358 10*3/ ?L. The reference r louise was not used to interpret this result as normal/abnormal . MPV (test code = 11.1 fL 9.5-12.9 56751-2) NRBC/100 WBC (test See_Comment [Automat ed code = 7478493370) message] The system which generated this result transmitted reference range : 0.0 - 10.0 /100 WBCs. The refer ence range was not u sed to interpret th is result as normal/abnormal . NRBC x10^3 (test code <0.01 See_Comment [Auto mated = 1088519365) message] The s ystem which generated this result transmitted reference range : 10*3/?L. The reference range was not used to interpret this result as normal/abnormal . GRAN MAT (NEUT) % 80.4 % (test code = 770-8) IMM GRAN % (test code 1.70 % = 5985057945) LYMPH % (test code = 8.4 % 736-9) MONO % (test code = 8.0 % 5905-5) EOS % (test code = 1.4 % 713-8) BASO % (test code = 0.1 % 706-2) GRAN MAT x10^3(ANC) 9.21 10*3/uL 1.88-7.09 H (test code = 9332721752) IMM GRAN x10^3 (test 0.19 10*3/uL 0-0.06 H code = 7048386211) LYMPH x10^3 (test code 0.96 10*3/uL 1.32-3.29 L = 731-0) MONO x10^3 (test code 0.91 10*3/uL 0.33-0.92 = 742-7) EOS x10^3 (test code = 0.16 10*3/uL 0.03-0.39 711-2) BASO x10^3 (test code <0.03 0.01-0.07 = 704-7) Lab Interpretation Abnormal (test code = 76687-1) [facility] GLUCOSE (AUTOMATED)2020-04-18 02:15:00 Test Item Value Reference Range Interpretation Comments POCT GLU (test code = 1625256650) 195 mg/dL 70-110 H Lab Interpretation (test code = Abnormal 89786-8) [facility] WITH [id number] 00:14:00 Test Item Value Reference Range Interpretation [...] (test code = 56.4 fL 39-49.9 H 50006-8) RDW-CV (test code = 20.0 % 12-15.5 H 788-0) PLT (test code = See_Comment L [Automated 777-3) message] The system which generated this result transmit shira reference range : 166 - 358 10*3/ ?L. The reference range was not u sed to interpret th is result as normal/abnormal . MPV (test code = 11.3 fL 9.5-12.9 75103-7) NRBC/100 WBC (test See_Comment [Automat ed code = 7817632488) message] The system which generated this result transmit shira reference range : 0.0 - 10.0 /100 WBCs. The reference range was not used to interpret this result as normal/abnormal . NRBC x10^3 (test code <0.01 See_Comment [Auto mated = 5312520673) message] The system which generated this result transmit shira reference range : 10*3/?L. The reference range was not used to interpret this result as normal/abnormal . GRAN MAT (NEUT) % 78.4 % (test code = 770-8) IMM GRAN % (test code 1.60 % = 3854541855) LYMPH % (test code = 10.2 % 736-9) MONO % (test code = 9.1 % 5905-5) EOS % (test code = 0.6 % 713-8) BASO % (test code = 0.1 % 706-2) GRAN MAT x10^3(ANC) 10.95 10*3/uL 1.88-7.09 H (test code = 9179287618) IMM GRAN x10^3 (test 0.23 10*3/uL 0-0.06 H code = 2742651052) LYMPH x10^3 (test code 1.42 10*3/uL 1.32-3.29 = 731-0) MONO x10^3 (test code 1.27 10*3/uL 0.33-0.92 H = 742-7) EOS x10^3 (test code = 0.08 10*3/uL 0.03-0.39 711-2) BASO x10^3 (test code <0.03 0.01-0.07 = 704-7) Lab Interpretation Abnormal (test code = 47993-0) [facility]2020-04-17 21:40:00 Test Item Value Reference Range Interpretation Comments POCT GLU (test code = 1174788984) 138 mg/dL 70-110 H Lab Interpretation (test code = Abnormal 79526-8) [facility] WITH [id number] 12:47:00 Test Item Value Reference Range Interpretation [...] (test code = 57.1 fL 39-49.9 H 11205-7) RDW-CV (test code = 20.4 % 12-15.5 H 788-0) PLT (test code = See_Comment L [Automated 777-3) message] The system which generated this result transmit shira reference range : 166 - 358 10*3/ ?L. The reference range was not u sed to interpret th is result as normal/abnormal . MPV (test code = 11.1 fL 9.5-12.9 70481-1) NRBC/100 WBC (test See_Comment [Automat ed code = 3920241471) message] The system which generated this result transmit shira reference range : 0.0 - 10.0 /100 WBCs. The reference range was not used to interpret this result as normal/abnormal . NRBC x10^3 (test code <0.01 See_Comment [Auto mated = 1747720345) message] The system which generated this result transmit shira reference range : 10*3/?L. The reference range was not used to interpret this result as normal/abnormal . GRAN MAT (NEUT) % 81.0 % (test code = 770-8) IMM GRAN % (test code 2.10 % = 0407859730) LYMPH % (test code = 7.9 % 736-9) MONO % (test code = 8.2 % 5905-5) EOS % (test code = 0.7 % 713-8) BASO % (test code = 0.1 % 706-2) GRAN MAT x10^3(ANC) 12.25 10*3/uL 1.88-7.09 H (test code = 7893731363) IMM GRAN x10^3 (test 0.32 10*3/uL 0-0.06 H code = 7957095721) LYMPH x10^3 (test code 1.19 10*3/uL 1.32-3.29 [...] . Lab Interpretation Abnormal (test code = 88814-3) [facility] (NA, K, CL, CO2, GLUCOSE, BUN, CREATININE, CA)2020-04-17 12:40:00 Test Item Value Reference Range Interpretation Comments NA (test code = 145 mmol/L 135-145 4872576017) K (test code = 3.0 mmol/L 3.5-5 L 2578251248) CL (test code = 114 mmol/L 98-108 H 1567135652) CO2 TOTAL (test code = 23 mmol/L 23-31 0906500775) AGAP (test code = 2-16 3136999265) BUN (test code = 20 mg/dL 7-23 4206795958) GLUCOSE (test code = 88 mg/dL 70-110 5465047453) CREATININE (test code = 0.83 mg/dL 0.5-1.04 8636754717) CALCIUM (test code = 7.4 mg/dL 8.6-10.6 L 6551581794) eGFR Calculation mL/min/1.73m2 (Non-) (test code = 7000832482) eGFR Calculation mL/min/1.73m2 () (test code = 1743425670) JACI (test code = JACI) Association of [...] tests). Lab Interpretation Abnormal (test code = 40730-2) [facility] GLUCOSE (AUTOMATED)2020-04-17 02:05:00 Test Item Value Reference Range Interpretation Comments POCT GLU (test code = 1989984904) 131 mg/dL 70-110 H Lab Interpretation (test code = Abnormal 53489-0) [facility] GLUCOSE (AUTOMATED)2020-04-16 23:46:00 Test Item Value Reference Range Interpretation Comments POCT GLU (test code = 9977709335) 115 mg/dL 70-110 H Lab Interpretation (test code = Abnormal 05540-0) [facility] WITH [id number] 20:05:00 Test Item Value Reference Range Interpretation [...] (test code = 55.8 fL 39-49.9 H 85162-7) RDW-CV (test code = 20.2 % 12-15.5 H 788-0) PLT (test code = See_Comment [Automated 777-3) message] The system which generated this result transmit shira reference range : 166 - 358 10*3/ ?L. The reference range was not u sed to interpret th is result as normal/abnormal . MPV (test code = 10.9 fL 9.5-12.9 53274-5) NRBC/100 WBC (test See_Comment [Automat ed code = 7009202260) message] The system which generated this result transmit shira reference range : 0.0 - 10.0 /100 WBCs. The reference range was not used to interpret this result as normal/abnormal . NRBC x10^3 (test code See_Comment [Auto mated = 4959786952) message] The system which generated this result transmit shira reference range : 10*3/?L. The reference range was not used to interpret this result as normal/abnormal . GRAN MAT (NEUT) % 80.9 % (test code = 770-8) IMM GRAN % (test code 1.90 % = 8691230161) LYMPH % (test code = 9.2 % 736-9) MONO % (test code = 7.7 % 5905-5) EOS % (test code = 0.1 % 713-8) BASO % (test code = 0.2 % 706-2) GRAN MAT x10^3(ANC) 12.98 10*3/uL 1.88-7.09 H (test code = 7184587358) IMM GRAN x10^3 (test 0.30 10*3/uL 0-0.06 H code = 2949890263) LYMPH x10^3 (test code 1.48 10*3/uL 1.32-3.29 = 731-0) MONO x10^3 (test code 1.23 10*3/uL 0.33-0.92 H = 742-7) EOS x10^3 (test code = <0.03 0.03-0.39 L 711-2) BASO x10^3 (test code 0.03 10*3/uL 0.01-0.07 = 704-7) Lab Interpretation Abnormal (test code = 30116-3) [facility] GLUCOSE (AUTOMATED)2020-04-16 18:52:00 Test Item Value Reference Range Interpretation Comments POCT GLU (test code = 6451349680) 135 mg/dL 70-110 H Lab Interpretation (test code = Abnormal 43285-1) [facility] GLUCOSE (AUTOMATED)2020-04-16 15:19:00 Test Item Value Reference Range Interpretation Comments POCT GLU (test code = 2953807228) 101 mg/dL 70-110 Lab Interpretation (test code = Normal 76846-2) [facility] RBC (in units), 1 Units 2020-04-16 11:52:01 Test Item Value Reference Range Interpretation Comments Cross Match Result Compatible (test code = 4409) ISBT Blood Type Code (test code = 149224) Unit Blood Type (test A Pos code = 4410) Unit Number (test [id number] code = 4411) Blood Expiration Date & Time (test code = 265406) Status Information Issued (test code = 4412) Product Red Blood Cells Identification (test code = 4413) Product Code (test Z3143P08 Performed at [facility] code = 4414) Laboratory Services - [facility] Blood [address] [place] [address]Dtcr Free: [phone] A No. [id number] [facility] METABOLIC PANEL (NA, K, CL, CO2, GLUCOSE, BUN, CREATININE, CA)2020-04-16 11:32:00 Test Item Value Reference Range Interpretation Comments NA (test code = 139 mmol/L 135-145 7651228404) K (test code = 3.6 mmol/L 3.5-5 0075510932) CL (test code = 112 mmol/L 98-108 H 8805205683) CO2 TOTAL (test code = 22 mmol/L 23-31 L 3823067430) AGAP (test code = 2-16 8116903154) BUN (test code = 40 mg/dL 7-23 H 9815505224) GLUCOSE (test code = 85 mg/dL 70-110 7034006852) CREATININE (test code = 1.01 mg/dL 0.5-1.04 9710256534) CALCIUM (test code = 7.7 mg/dL 8.6-10.6 L 8903076939) eGFR Calculation mL/min/1.73m2 (Non-) (test code = 0451553419) eGFR Calculation mL/min/1.73m2 () (test code = 4671466738) JACI (test code = JACI) Association of [...] tests). Lab Interpretation Abnormal (test code = 55431-7) [facility] WITH [id number] 11:04:00 Test Item Value Reference Range Interpretation [...] (test code = 59.5 fL 39-49.9 H 67226-2) RDW-CV (test code = 20.4 % 12-15.5 H 788-0) PLT (test code = See_Comment L [Automated 777-3) message] The system which generated this result transmit shira reference range : 166 - 358 10*3/ ?L. The reference range was not u sed to interpret th is result as normal/abnormal . MPV (test code = 11.0 fL 9.5-12.9 91486-7) NRBC/100 WBC (test See_Comment [Automat ed code = 3156377413) message] The system which generated this result transmit shira reference range : 0.0 - 10.0 /100 WBCs. The reference range was not used to interpret this result as normal/abnormal . NRBC x10^3 (test code See_Comment [Auto mated = 7095767964) message] The system which generated this result transmit shira reference range : 10*3/?L. The reference range was not used to interpret this result as normal/abnormal . GRAN MAT (NEUT) % 79.2 % (test code = 770-8) IMM GRAN % (test code 1.90 % = 9931989629) LYMPH % (test code = 10.2 % 736-9) MONO % (test code = 8.4 % 5905-5) EOS % (test code = 0.2 % 713-8) BASO % (test code = 0.1 % 706-2) GRAN MAT x10^3(ANC) 10.15 10*3/uL 1.88-7.09 H (test code = 9712632363) IMM GRAN x10^3 (test 0.24 10*3/uL 0-0.06 H code = 5024559053) LYMPH x10^3 (test code 1.30 10*3/uL 1.32-3.29 L = 731-0) MONO x10^3 (test code 1.08 10*3/uL 0.33-0.92 H = 742-7) EOS x10^3 (test code = <0.03 0.03-0.39 L 711-2) BASO x10^3 (test code <0.03 0.01-0.07 = 704-7) Lab Interpretation Abnormal (test code = 47498-8) [facility] GLUCOSE (AUTOMATED)2020-04-16 03:38:00 Test Item Value Reference Range Interpretation Comments POCT GLU (test code = 4149765029) 130 mg/dL 70-110 H Lab Interpretation (test code = Abnormal 04487-7) [facility] GLUCOSE (AUTOMATED)2020-04-16 00:09:00 Test Item Value Reference Range Interpretation Comments POCT GLU (test code = 5355233257) 158 mg/dL 70-110 H Lab Interpretation (test code = Abnormal 70993-2) [facility] ONLY COVID [id number] 23:03:00COVID DMT InterpretationInterpretation/Recommendations: Molecular NAAT Tests for Active Infection with the SARS-CoV-2 Virus: This patient has a history of testing negative on multiple occasions for lvcUTYX-ZdH-1 virus that causes COVID-19 illness. The current [...] COVID-19 testing the patient has had at [facility], including molecular NAAT testing (more commonly known as PCR testing and Rapid ID Now testing) and antibody testing. It does not take into account any testing that a patient has had outside of the [facility] medical record. [facility] LABORATORY SERVICESCOVID RetrpznBPYV-JjX-2 NAAT (no units) ? ? Date ? Value ? 01/15/2020 ? Not Detected ? ? ? 11/16/2019 ? Not Detected ? SARS-CoV-2 Rapid ID NOW (no units) ? ? Date ? Value ? 04/14/2020 ? Not Detected ? ? ? 04/02/2020 ? Not Detected ? ? ? 03/26/2020 ? Not Detected ? ? ? 01/22/2020 ? Not Detected ? [facility] LABORATORY SERVICES [facility] WITH [id number] 22:28:00 Test Item Value Reference Range Interpretation [...] (test code = 58.1 fL 39-49.9 H 25525-6) RDW-CV (test code = 20.8 % 12-15.5 H 788-0) PLT (test code = See_Comment [Automated 777-3) message] The system which generated this result transmit shira reference range : 166 - 358 10*3/ ?L. The reference range was not u sed to interpret th is result as normal/abnormal . MPV (test code = 11.6 fL 9.5-12.9 24674-4) NRBC/100 WBC (test See_Comment [Automat ed code = 9968350251) message] The system which generated this result transmit shira reference range : 0.0 - 10.0 /100 WBCs. The reference range was not used to interpret this result as normal/abnormal . NRBC x10^3 (test code See_Comment [Auto mated = 1141377382) message] The system which generated this result transmit shira reference range : 10*3/?L. The reference range was not used to interpret this result as normal/abnormal . GRAN MAT (NEUT) % 88.2 % (test code = 770-8) IMM GRAN % (test code 1.80 % = 7967449560) LYMPH % (test code = 5.4 % 736-9) MONO % (test code = 4.5 % 5905-5) EOS % (test code = 0.0 % 713-8) BASO % (test code = 0.1 % 706-2) GRAN MAT x10^3(ANC) 15.52 10*3/uL 1.88-7.09 H (test code = 3944780318) IMM GRAN x10^3 (test 0.32 10*3/uL 0-0.06 H code = 5499700409) LYMPH x10^3 (test code 0.95 10*3/uL 1.32-3.29 L = 731-0) MONO x10^3 (test code 0.79 10*3/uL 0.33-0.92 = 742-7) EOS x10^3 (test code = <0.03 0.03-0.39 L 711-2) BASO x10^3 (test code <0.03 0.01-0.07 = 704-7) Lab Interpretation Abnormal (test code = 10483-1) [facility] ONCE [id number] 16:14:11 Test Item Value Reference Range Interpretation Comments ABO & RH (test code A POSITIVE Performe d at [facility] = 20) Laboratory Serv [facility] Blood Bank3 [address] [facility] [address]Guhm Free: [phone] A No. [id number] IAT (test code = Negative Performed a t [facility] 1185) Laboratory Serv [facility] Blood Bank[address] [place], [place] [address]Isidro frost [address]Rfzc Free: [phone] A No. [id number] [facility]2020-04-15 14:22:00 Test Item Value Reference Range Interpretation Comments POCT GLU (test code = 9242835574) 142 mg/dL 70-110 H Lab Interpretation (test code = Abnormal 63101-9) [facility] (NA, K, CL, CO2, GLUCOSE, BUN, CREATININE, CA)2020-04-15 08:39:00 Test Item Value Reference Range Interpretation Comments NA (test code = 137 mmol/L 135-145 4037609501) K (test code = 4.4 mmol/L 3.5-5 0665837785) CL (test code = 112 mmol/L 98-108 H 0502199595) CO2 TOTAL (test code = 22 mmol/L 23-31 L 8452181040) AGAP (test code = 2-16 8387053780) BUN (test code = 59 mg/dL 7-23 H 5667700585) GLUCOSE (test code = 155 mg/dL 70-110 H 7324292629) CREATININE (test code = 1.00 mg/dL 0.5-1.04 1715780729) CALCIUM (test code = 7.7 mg/dL 8.6-10.6 L 4286798178) eGFR Calculation mL/min/1.73m2 (Non-) (test code = 8643430710) eGFR Calculation mL/min/1.73m2 () (test code = 8246673411) JACI (test code = JACI) Association of [...] tests). Lab Interpretation Abnormal (test code = 78249-8) [facility] WITH [id number] 08:09:00 Test Item Value Reference Range Interpretation [...] (test code = 51.0 fL 39-49.9 H 54158-6) RDW-CV (test code = 17.8 % 12-15.5 H 788-0) PLT (test code = See_Comment [Automated 777-3) message] The system which generated this result transmit shira reference range : 166 - 358 10*3/ ?L. The reference range was not u sed to interpret th is result as normal/abnormal . MPV (test code = 11.3 fL 9.5-12.9 65209-4) NRBC/100 WBC (test See_Comment [Automat ed code = 6518584456) message] The system which generated this result transmit shira reference range : 0.0 - 10.0 /100 WBCs. The reference range was not used to interpret this result as normal/abnormal . NRBC x10^3 (test code See_Comment [Auto mated = 6423492070) message] The system which generated this result transmit shira reference range : 10*3/?L. The reference range was not used to interpret this result as normal/abnormal . GRAN MAT (NEUT) % 83.4 % (test code = 770-8) IMM GRAN % (test code 1.50 % = 7492590090) LYMPH % (test code = 8.2 % 736-9) MONO % (test code = 6.8 % 5905-5) EOS % (test code = 0.0 % 713-8) BASO % (test code = 0.1 % 706-2) GRAN MAT x10^3(ANC) 12.25 10*3/uL 1.88-7.09 H (test code = 5897549099) IMM GRAN x10^3 (test 0.22 10*3/uL 0-0.06 H code = 4553409411) LYMPH x10^3 (test code 1.20 10*3/uL 1.32-3.29 L = 731-0) MONO x10^3 (test code 1.00 10*3/uL 0.33-0.92 H = 742-7) EOS x10^3 (test code = <0.03 0.03-0.39 L 711-2) BASO x10^3 (test code <0.03 0.01-0.07 = 704-7) Lab Interpretation Abnormal (test code = 21212-8) [facility] (ID NOW RAPID TESTING)2020-04-15 06:17:00 Test Item Value Reference Range Interpretation Comments SARS-CoV-2 Rapid ID NOW Not Detected Not Detected (test code = 76905-3) JACI (test code = JACI) ID NOW COVID-19 Assay is an isothermal nucleic acid amplification test intended for the qualitative detection of nucleic acid from SARS-CoV-2 viral RNA in nasopharyngeal (TUB ATTENDANT) specimens. It is used under Emergency Use [...] indicated. Lab Interpretation Normal (test code = 72896-9) [facility] GLUCOSE (AUTOMATED)2020-04-15 03:47:00 Test Item Value Reference Range Interpretation Comments POCT GLU (test code = 5303836814) 192 mg/dL 70-110 H Lab Interpretation (test code = Abnormal 13878-7) [facility] Packed RBC (in units), 2 Units 2020-04-15 03:45:44 Test Item Value Reference Range Interpretation Comments Cross Match Result Compatible (test code = 4409) ISBT Blood Type Code (test code = 198176) Unit Blood Type (test A Pos code = 4410) Unit Number (test [id number] code = 4411) Blood Expiration Date & Time (test code = 775794) Status Information Issued (test code = 4412) Product Red Blood Cells Identification (test code = 4413) Product Code (test R1670V91 Performed at [facility] code = 4414) Laboratory Services - [facility] [address] [place] [address]Biei Free: [phone] A No. [id number] [facility] GLUCOSE (AUTOMATED)2020-04-15 00:43:00 Test Item Value Reference Range Interpretation Comments POCT GLU (test code = 1113504191) 264 mg/dL 70-110 H Lab Interpretation (test code = Abnormal 07290-0) [facility] WITH [id number] 22:18:00 Test Item Value Reference Range Interpretation [...] (test code = 55.0 fL 39-49.9 H 81531-1) RDW-CV (test code = 17.2 % 12-15.5 H 788-0) PLT (test code = See_Comment [Automated 777-3) message] The system which generated this result transmit shira reference range : 166 - 358 10*3/ ?L. The reference range was not u sed to interpret th is result as normal/abnormal . MPV (test code = 11.6 fL 9.5-12.9 18764-0) NRBC/100 WBC (test See_Comment [Automat ed code = 9233022443) message] The system which generated this result transmit shira reference range : 0.0 - 10.0 /100 WBCs. The reference range was not used to interpret this result as normal/abnormal . NRBC x10^3 (test code See_Comment [Auto mated = 1921003418) message] The system which generated this result transmit shira reference range : 10*3/?L. The reference range was not used to interpret this result as normal/abnormal . GRAN MAT (NEUT) % 93.7 % (test code = 770-8) IMM GRAN % (test code 0.90 % = 7424917859) LYMPH % (test code = 2.7 % 736-9) MONO % (test code = 2.6 % 5905-5) EOS % (test code = 0.0 % 713-8) BASO % (test code = 0.1 % 706-2) GRAN MAT x10^3(ANC) 17.93 10*3/uL 1.88-7.09 H (test code = 4957313949) IMM GRAN x10^3 (test 0.17 10*3/uL 0-0.06 H code = 1157998759) LYMPH x10^3 (test code 0.51 10*3/uL 1.32-3.29 L = 731-0) MONO x10^3 (test code 0.49 10*3/uL 0.33-0.92 = 742-7) EOS x10^3 (test code = <0.03 0.03-0.39 L 711-2) BASO x10^3 (test code <0.03 0.01-0.07 = 704-7) Lab Interpretation Abnormal (test code = 29618-4) [facility] GLUCOSE (AUTOMATED)2020-04-14 19:24:00 Test Item Value Reference Range Interpretation Comments POCT GLU (test code = 3205955034) 216 mg/dL 70-110 H Lab Interpretation (test code = Abnormal 52504-2) [facility] GLUCOSE (AUTOMATED)2020-04-14 16:25:00 Test Item Value Reference Range Interpretation Comments POCT GLU (test code = 8330252785) 212 mg/dL 70-110 H Lab Interpretation (test code = Abnormal 89665-1) [facility] AtlantaXR [facility] 3 VW [id number] 14:11:37 Large joint effusion. Soft tissue swelling. Moderate osteoarthrosis. EXAM: XR KNEE 3 VW RIGHT HISTORY: concern for joint effusion 2/2 gout flare COMPARISON: None. FINDINGS: A large joint effusion is present. Mild soft tissue swelling is seen. Noacute fracture or dislocation is identified. Chondrocalcinosis is present.Tricompartmental osteophytosis is seen with medial compartment narrowingand subchondral sclerosis. Calcification of the quadriceps tendon is seen. Memb, Radiant Results Inft User - 04/14/2020 8:12 AM CSTEXAM:XR KNEE 3 VW RIGHTHISTORY:concern for joint effusion 2/2 gout flare COMPARISON:None.FINDINGS: A large joint effusion is present. Mild soft tissue swelling is seen. Noacute fracture or dislocation is identified. Chondrocalcinosis is present.Tricompartmental osteophytosis is seen with medial compartment narrowingand subchondral sclerosis. Calcification of the quadriceps tendon is seen.IMPRESSIONLarge joint effusion.Soft tissue swelling.Moderate osteoarthrosis.[facility] (NA, K, CL, CO2, GLUCOSE, BUN, CREATININE, CA)2020-04-14 13:23:00 Test Item Value Reference Range Interpretation Comments NA (test code = 140 mmol/L 135-145 7959634026) K (test code = 3.3 mmol/L 3.5-5 L 3042099774) CL (test code = 110 mmol/L 98-108 H 2339366283) CO2 TOTAL (test code = 27 mmol/L 23-31 8890530357) AGAP (test code = 2-16 9219754134) BUN (test code = 39 mg/dL 7-23 H 9846010383) GLUCOSE (test code = 126 mg/dL 70-110 H 7054699209) CREATININE (test code = 0.90 mg/dL 0.5-1.04 7258774660) CALCIUM (test code = 7.5 mg/dL 8.6-10.6 L 4581909889) eGFR Calculation mL/min/1.73m2 (Non-) (test code = 1776515717) eGFR Calculation mL/min/1.73m2 () (test code = 8346310477) JACI (test code = JACI) Association of [...] tests). Lab Interpretation Abnormal (test code = 19210-6) [facility] GLUCOSE (AUTOMATED)2020-04-14 06:10:00 Test Item Value Reference Range Interpretation Comments POCT GLU (test code = 9355521810) 149 mg/dL 70-110 H Lab Interpretation (test code = Abnormal 30529-3) [facility] GLUCOSE (AUTOMATED)2020-04-14 02:20:00 Test Item Value Reference Range Interpretation Comments POCT GLU (test code = 2598469942) 167 mg/dL 70-110 H Lab Interpretation (test code = Abnormal 66892-4) [facility] GLUCOSE (AUTOMATED)2020-04-13 22:28:00 Test Item Value Reference Range Interpretation Comments POCT GLU (test code = 7991834207) 364 mg/dL 70-110 H Lab Interpretation (test code = Abnormal 69634-7) [facility] WITH [id number] 21:45:00 Test Item Value Reference Range Interpretation [...] (test code = 55.7 fL 39-49.9 H 31345-6) RDW-CV (test code = 17.4 % 12-15.5 H 788-0) PLT (test code = See_Comment [Automated 777-3) message] The system which generated this result transmit shira reference range : 166 - 358 10*3/ ?L. The reference range was not u sed to interpret th is result as normal/abnormal . MPV (test code = 11.1 fL 9.5-12.9 05143-0) NRBC/100 WBC (test See_Comment [Automat ed code = 1106428624) message] The system which generated this result transmit shira reference range : 0.0 - 10.0 /100 WBCs. The reference range was not used to interpret this result as normal/abnormal . NRBC x10^3 (test code <0.01 See_Comment [Auto mated = 4542412227) message] The system which generated this result transmit shira reference range : 10*3/?L. The reference range was not used to interpret this result as normal/abnormal . GRAN MAT (NEUT) % 94.5 % (test code = 770-8) IMM GRAN % (test code 0.60 % = 8091044686) LYMPH % (test code = 2.9 % 736-9) MONO % (test code = 1.9 % 5905-5) EOS % (test code = 0.0 % 713-8) BASO % (test code = 0.1 % 706-2) GRAN MAT x10^3(ANC) 12.79 10*3/uL 1.88-7.09 H (test code = 6586195057) IMM GRAN x10^3 (test 0.08 10*3/uL 0-0.06 H code = 1056444807) LYMPH x10^3 (test code 0.39 10*3/uL 1.32-3.29 L = 731-0) MONO x10^3 (test code 0.26 10*3/uL 0.33-0.92 L = 742-7) EOS x10^3 (test code = <0.03 0.03-0.39 L 711-2) BASO x10^3 (test code <0.03 0.01-0.07 = 704-7) Lab Interpretation Abnormal (test code = 76913-3) [facility] GLUCOSE (AUTOMATED)2020-04-13 18:52:00 Test Item Value Reference Range Interpretation Comments POCT GLU (test code = 1634818041) 183 mg/dL 70-110 H Lab Interpretation (test code = Abnormal 45533-0) [facility] GLUCOSE (AUTOMATED)2020-04-13 15:05:00 Test Item Value Reference Range Interpretation Comments POCT GLU (test code = 6672421834) 111 mg/dL 70-110 H Lab Interpretation (test code = Abnormal 51566-4) [facility] METABOLIC PANEL (NA, K, CL, CO2, GLUCOSE, BUN, CREATININE, CA)2020-04-13 12:50:00 Test Item Value Reference Range Interpretation Comments NA (test code = 141 mmol/L 135-145 8341033272) K (test code = 3.7 mmol/L 3.5-5 9996439002) CL (test code = 113 mmol/L 98-108 H 5205043603) CO2 TOTAL (test code = 27 mmol/L 23-31 9902156767) AGAP (test code = 2-16 L 8978012214) BUN (test code = 34 mg/dL 7-23 H 5697753958) GLUCOSE (test code = 93 mg/dL 70-110 3628092587) CREATININE (test code = 0.92 mg/dL 0.5-1.04 7036791108) CALCIUM (test code = 7.7 mg/dL 8.6-10.6 L 9118853961) eGFR Calculation mL/min/1.73m2 (Non-) (test code = 1386145175) eGFR Calculation mL/min/1.73m2 () (test code = 0153309717) JACI (test code = JACI) Association of [...] tests). Lab Interpretation Abnormal (test code = 46688-8) [facility] WITH [id number] 12:12:00 Test Item Value Reference Range Interpretation Comments WBC (test code = See_Comment H [Automated 4819-2) message] The system which generated this result [...] (test code = 56.5 fL 39-49.9 H 73251-7) RDW-CV (test code = 17.7 % 12-15.5 H 788-0) PLT (test code = See_Comment [Automated 777-3) message] The system which generated this result transmit shira reference range : 166 - 358 10*3/ ?L. The reference range was not u sed to interpret th is result as normal/abnormal . MPV (test code = 11.7 fL 9.5-12.9 79200-5) NRBC/100 WBC (test See_Comment [Automat ed code = 3847705030) message] The system which generated this result transmit shira reference range : 0.0 - 10.0 /100 WBCs. The reference range was not used to interpret this result as normal/abnormal . NRBC x10^3 (test code <0.01 See_Comment [Auto mated = 0938148665) message] The system which generated this result transmit shira reference range : 10*3/?L. The reference range was not used to interpret this result as normal/abnormal . GRAN MAT (NEUT) % 82.3 % (test code = 770-8) IMM GRAN % (test code 0.70 % = 4747924339) LYMPH % (test code = 8.0 % 736-9) MONO % (test code = 7.0 % 5905-5) EOS % (test code = 1.9 % 713-8) BASO % (test code = 0.1 % 706-2) GRAN MAT x10^3(ANC) 11.94 10*3/uL 1.88-7.09 H (test code = 9671603072) IMM GRAN x10^3 (test 0.10 10*3/uL 0-0.06 H code = 2877936310) LYMPH x10^3 (test code 1.16 10*3/uL 1.32-3.29 L = 731-0) MONO x10^3 (test code 1.02 10*3/uL 0.33-0.92 H = 742-7) EOS x10^3 (test code = 0.27 10*3/uL 0.03-0.39 711-2) BASO x10^3 (test code <0.03 0.01-0.07 = 704-7) Lab Interpretation Abnormal (test code = 65457-9) [facility] GLUCOSE (AUTOMATED)2020-04-13 01:57:00 Test Item Value Reference Range Interpretation Comments POCT GLU (test code = 4352958870) 182 mg/dL 70-110 H Lab Interpretation (test code = Abnormal 36513-9) [facility] RBC (in units), 1 Units 2020-04-13 00:16:50 Test Item Value Reference Range Interpretation Comments Cross Match Result Compatible (test code = 4409) ISBT Blood Type Code (test code = 629696) Unit Blood Type (test A Pos code = 4410) Unit Number (test [id number] code = 4411) Blood Expiration Date & Time (test code = 283508) Status Information Issued (test code = 4412) Product Red Blood Cells Identification (test code = 4413) Product Code (test Z0520C07 Performed at [facility] code = 4414) Laboratory Services - [facility] [address] [place] [address]Mqop Free: [phone] A No. [id number] [facility] GLUCOSE (AUTOMATED)2020-04-12 23:34:00 Test Item Value Reference Range Interpretation Comments POCT GLU (test code = 3285834441) 139 mg/dL 70-110 H Lab Interpretation (test code = Abnormal 87609-2) [facility] - ONCE [id number] 22:38:12 Test Item Value Reference Range Interpretation Comments ABO & RH (test code A POSITIVE Performe d at [facility] = 20) Laboratory Serv [facility] Blood Bank3 [facility] s [address]Twpb Free: [phone] A No. [id number] IAT (test code = Negative Performed a t [facility] 1185) Laboratory Serv [facility] Blood Bank3 [facility] [address]Plfn Free: [phone] A No. [id number] [facility] WITH [id number] 20:37:00 Test Item Value Reference Range Interpretation Comments WBC (test code = See_Comment H [Automated 0190-2) message] The system which generated this result transmit shira reference range : 4.30 - 11.10 10*3/?L. The reference range was not used to interpret this result as normal/abnormal . RBC (test code = See_Comment L [Automated 459-8) message] The system which generated this result [...] (test code = 57.7 fL 39-49.9 H 99432-7) RDW-CV (test code = 17.9 % 12-15.5 H 788-0) PLT (test code = See_Comment [Automated 777-3) message] The system which generated this result transmit shira reference range : 166 - 358 10*3/ ?L. The reference range was not u sed to interpret th is result as normal/abnormal . MPV (test code = 11.6 fL 9.5-12.9 99714-3) NRBC/100 WBC (test See_Comment [Automat ed code = 2989905504) message] The system which generated this result transmit shira reference range : 0.0 - 10.0 /100 WBCs. The reference range was not used to interpret this result as normal/abnormal . NRBC x10^3 (test code <0.01 See_Comment [Auto mated = 9792223759) message] The system which generated this result transmit shira reference range : 10*3/?L. The reference range was not used to interpret this result as normal/abnormal . GRAN MAT (NEUT) % 84.6 % (test code = 770-8) IMM GRAN % (test code 0.80 % = 2653532549) LYMPH % (test code = 6.6 % 736-9) MONO % (test code = 7.5 % 5905-5) EOS % (test code = 0.4 % 713-8) BASO % (test code = 0.1 % 706-2) GRAN MAT x10^3(ANC) 14.14 10*3/uL 1.88-7.09 H (test code = 0852981501) IMM GRAN x10^3 (test 0.13 10*3/uL 0-0.06 H code = 8679936489) LYMPH x10^3 (test code 1.10 10*3/uL 1.32-3.29 L = 731-0) MONO x10^3 (test code 1.26 10*3/uL 0.33-0.92 H = 742-7) EOS x10^3 (test code = 0.06 10*3/uL 0.03-0.39 711-2) BASO x10^3 (test code <0.03 0.01-0.07 = 704-7) Lab Interpretation Abnormal (test code = 50744-5) [facility] GLUCOSE (AUTOMATED)2020-04-12 19:03:00 Test Item Value Reference Range Interpretation Comments POCT GLU (test code = 9270980895) 137 mg/dL 70-110 H Lab Interpretation (test code = Abnormal 87168-2) [facility] GLUCOSE (AUTOMATED)2020-04-12 15:30:00 Test Item Value Reference Range Interpretation Comments POCT GLU (test code = 6504914717) 131 mg/dL 70-110 H Lab Interpretation (test code = Abnormal 46177-4) [facility] (NA, K, CL, CO2, GLUCOSE, BUN, CREATININE, CA)2020-04-12 10:34:00 Test Item Value Reference Range Interpretation Comments NA (test code = 141 mmol/L 135-145 8101307165) K (test code = 3.5 mmol/L 3.5-5 6778948152) CL (test code = 113 mmol/L 98-108 H 8286902438) CO2 TOTAL (test code = 25 mmol/L 23-31 3094379546) AGAP (test code = 2-16 5646513770) BUN (test code = 41 mg/dL 7-23 H 2931750372) GLUCOSE (test code = 106 mg/dL 70-110 3617267205) CREATININE (test code = 0.96 mg/dL 0.5-1.04 6581245794) CALCIUM (test code = 7.9 mg/dL 8.6-10.6 L 1202364897) eGFR Calculation mL/min/1.73m2 (Non-) (test code = 2266373245) eGFR Calculation mL/min/1.73m2 () (test code = 6303144060) JACI (test code = JACI) Association of [...] tests). Lab Interpretation Abnormal (test code = 14845-1) [facility] WITH [id number] 10:08:00 Test Item Value Reference Range Interpretation [...] (test code = 57.1 fL 39-49.9 H 50462-6) RDW-CV (test code = 18.1 % 12-15.5 H 788-0) PLT (test code = See_Comment [Automated 777-3) message] The system which generated this result transmit shira reference range : 166 - 358 10*3/ ?L. The reference range was not u sed to interpret th is result as normal/abnormal . MPV (test code = 11.9 fL 9.5-12.9 39014-5) NRBC/100 WBC (test See_Comment [Automat ed code = 6686433207) message] The system which generated this result transmit shira reference range : 0.0 - 10.0 /100 WBCs. The reference range was not used to interpret this result as normal/abnormal . NRBC x10^3 (test code <0.01 See_Comment [Auto mated = 5552217708) message] The system which generated this result transmit shira reference range : 10*3/?L. The reference range was not used to interpret this result as normal/abnormal . GRAN MAT (NEUT) % 81.1 % (test code = 770-8) IMM GRAN % (test code 1.00 % = 5023888130) LYMPH % (test code = 9.2 % 736-9) MONO % (test code = 8.5 % 5905-5) EOS % (test code = 0.1 % 713-8) BASO % (test code = 0.1 % 706-2) GRAN MAT x10^3(ANC) 13.53 10*3/uL 1.88-7.09 H (test code = 8629243962) IMM GRAN x10^3 (test 0.17 10*3/uL 0-0.06 H code = 0654577754) LYMPH x10^3 (test code 1.53 10*3/uL 1.32-3.29 = 731-0) MONO x10^3 (test code 1.42 10*3/uL 0.33-0.92 H = 742-7) EOS x10^3 (test code = <0.03 0.03-0.39 L 711-2) BASO x10^3 (test code <0.03 0.01-0.07 = 704-7) Lab Interpretation Abnormal (test code = 76022-1) [facility] GLUCOSE (AUTOMATED)2020-04-12 02:41:00 Test Item Value Reference Range Interpretation Comments POCT GLU (test code = 3514043606) 184 mg/dL 70-110 H Lab Interpretation (test code = Abnormal 06023-3) [facility] GLUCOSE (AUTOMATED)2020-04-11 23:23:00 Test Item Value Reference Range Interpretation Comments POCT GLU (test code = 3418856070) 191 mg/dL 70-110 H Lab Interpretation (test code = Abnormal 45019-5) [facility] GLUCOSE (AUTOMATED)2020-04-11 19:33:00 Test Item Value Reference Range Interpretation Comments POCT GLU (test code = 5346683743) 268 mg/dL 70-110 H Lab Interpretation (test code = Abnormal 32971-1) [facility] GLUCOSE (AUTOMATED)2020-04-11 14:34:00 Test Item Value Reference Range Interpretation Comments POCT GLU (test code = 6768381300) 185 mg/dL 70-110 H Lab Interpretation (test code = Abnormal 80320-3) [facility] WITH [id number] 11:18:00 Test Item Value Reference Range Interpretation [...] (test code = 56.7 fL 39-49.9 H 48281-5) RDW-CV (test code = 18.2 % 12-15.5 H 788-0) PLT (test code = See_Comment [Automated 777-3) message] The system which generated this result transmit shira reference range : 166 - 358 10*3/ ?L. The reference range was not u sed to interpret th is result as normal/abnormal . MPV (test code = 11.9 fL 9.5-12.9 40947-0) NRBC/100 WBC (test See_Comment [Automat ed code = 0254575236) message] The system which generated this result transmit shira reference range : 0.0 - 10.0 /100 WBCs. The reference range was not used to interpret this result as normal/abnormal . NRBC x10^3 (test code <0.01 See_Comment [Auto mated = 9322840517) message] The system which generated this result transmit shira reference range : 10*3/?L. The reference range was not used to interpret this result as normal/abnormal . GRAN MAT (NEUT) % 82.3 % (test code = 770-8) IMM GRAN % (test code 1.80 % = [id number]) LYMPH % (test code = 5.4 % 736-9) MONO % (test code = 10.2 % 5905-5) EOS % (test code = 0.1 % 713-8) BASO % (test code = 0.2 % 706-2) GRAN MAT x10^3(ANC) 14.67 10*3/uL 1.88-7.09 H (test code = [id number]) IMM GRAN x10^3 (test 0.32 10*3/uL 0-0.06 H code = [id number]) LYMPH x10^3 (test code 0.97 10*3/uL 1.32-3.29 L = 731-0) MONO x10^3 (test code 1.82 10*3/uL 0.33-0.92 H = 742-7) EOS x10^3 (test code = <0.03 0.03-0.39 L 711-2) BASO x10^3 (test code 0.04 10*3/uL 0.01-0.07 = 704-7) BANDS (test code = Increased A 1420257968) Lab Interpretation Abnormal (test code = 55379-9) [facility] METABOLIC PANEL (NA, K, CL, CO2, GLUCOSE, BUN, CREATININE, CA)2020-04-11 11:05:00 Test Item Value Reference Range Interpretation Comments NA (test code = 140 mmol/L 135-145 6415684756) K (test code = 3.5 mmol/L 3.5-5 8822802291) CL (test code = 114 mmol/L 98-108 H 7122626538) CO2 TOTAL (test code = 21 mmol/L 23-31 L 1613338852) AGAP (test code = 2-16 3918040785) BUN (test code = 35 mg/dL 7-23 H 0227343940) GLUCOSE (test code = 173 mg/dL 70-110 H 7146697328) CREATININE (test code = 0.91 mg/dL 0.5-1.04 4982417635) CALCIUM (test code = 7.7 mg/dL 8.6-10.6 L 6022129197) eGFR Calculation mL/min/1.73m2 (Non-) (test code = 9953376302) eGFR Calculation mL/min/1.73m2 () (test code = 7017975792) JACI (test code = JACI) Association of [...] tests). Lab Interpretation Abnormal (test code = 05037-9) [facility]2020-[facility]11 03:37:00 Test Item Value Reference Range Interpretation Comments POCT GLU (test code = 6515380643) 250 mg/dL 70-110 H Lab Interpretation (test code = Abnormal 43031-9) [facility] 1 [id number] 00:10:15 Interval development of bibasilar ill-defined airspace [...] the stomach with itsdistal tip outside the ndunx-re-vylh. Lungs/pleura: ?Bilateral basilar ill-defined airspace opacities are [...] the stomach with itsdistal tip outside the fkrnf-gx-ceer.Lungs/pleura: Bilateral basilar ill-defined airspace opacities are newfromprior mild apical pleural thickening on the left.Heart/Mediastinum: The cardiac silhouette is normalin size. Calcifiedaortic arch.No acute osseous abnormality.IMPRESSIONInterval development of bibasilar ill-defined airspace opacities which mayrepresent aspiration or developing infection.Preliminary Re port Dictated by Resident: Jennie Mcbride MD., have reviewed this study and agree with theabove report.[facility]2020-04-10 22:36:00 Test Item Value Reference Range Interpretation Comments POCT GLU (test code = 5001167969) 240 mg/dL 70-110 H Lab Interpretation (test code = Abnormal 66778-4) [facility] ARTERIAL OR VENOUS HEMORRHAGE OR LYMPHATIC [id number] 22:05:12 Successful mesenteric angiogram and coil embolization [...] dilator and wire were removed and a [employer]or[employer]son wire was advanced intothe abdominal aorta. The micropuncture sheath was then exchanged for a 5French slender vascular sheath over the wire. The inner dilator was removedand the side port was connected to a gravity bag for continuous salineflush. A 5 [place] Olman catheter was inserted over the wire. [...] was ensured. The patient tolerated theprocedure well. [facility], Radiant Results Inft User - 04/10/2020 [...] a gravity bag for continuous salineflush.A 5 [place] Olman catheter was inserted over the wire. [...] reviewed this study and agree with the abovereport.[facility] [place]02853[facility] (ALB,T.PRO,BILI T,BU/BC,ALT,AST,ALK PHOS)2020-04-10 19:57:00 Test Item Value Reference Range Interpretation Comments TOTAL BILI (test code = 6336483780) 0.5 mg/dL 0.1-1.1 BILI UNCON (test code = 6257412877) 0.4 mg/dL 0.1-1.1 BILI CONJ (test code = 7890075916) 0.0 mg/dL 0-0.3 T PROTEIN (test code = 5744856270) 5.0 g/dL 6.3-8.2 L ALBUMIN (test code = 7941319140) 2.3 g/dL 3.5-5 L ALK PHOS (test code = 2950023524) 102 U/L 34-122 ALTv (test code = 1742-6) 20 U/L 5-35 AST(SGOT) (test code = 3202513908) 29 U/L 13-40 Lab Interpretation (test code = Abnormal 50259-1) [facility]2020-04-10 18:25:00 Test Item Value Reference Range Interpretation Comments POCT GLU (test code = 9618828129) 164 mg/dL 70-110 H Lab Interpretation (test code = Abnormal 18885-3) [facility] 15:54:00 Test Item Value Reference Range Interpretation Comments POCT GLU (test code = 7416710204) 121 mg/dL 70-110 H Lab Interpretation (test code = Abnormal 97141-7) [facility] [id number] 15:42:48 Enteric tube terminates at the gastric body. Preliminary Report Dictated by Resident: Rachael Barnes I reviewed this study and agree. IRoberto MD., have reviewed this study and agree [...] have reviewed this study and agree withtheabove report.[facility] WITH [id number] 13:03:00 Test Item Value Reference Range Interpretation [...] (test code = 55.8 fL 39-49.9 H 33832-5) RDW-CV (test code = 18.9 % 12-15.5 H 788-0) PLT (test code = See_Comment L [Automated 777-3) message] The system which generated this result transmit shira reference range : 166 - 358 10*3/ ?L. The reference range was not u sed to interpret th is result as normal/abnormal . MPV (test code = 11.8 fL 9.5-12.9 05812-7) NRBC/100 WBC (test See_Comment [Automat ed code = 4672933664) message] The system which generated this result transmit shira reference range : 0.0 - 10.0 /100 WBCs. The reference range was not used to interpret this result as normal/abnormal . NRBC x10^3 (test code <0.01 See_Comment [Auto mated = 2259698221) message] The system which generated this result transmit shira reference range : 10*3/?L. The reference range was not used to interpret this result as normal/abnormal . GRAN MAT (NEUT) % 82.3 % (test code = 770-8) IMM GRAN % (test code 3.50 % = 8707066822) LYMPH % (test code = 4.4 % 736-9) MONO % (test code = 9.3 % 5905-5) EOS % (test code = 0.3 % 713-8) BASO % (test code = 0.2 % 706-2) GRAN MAT x10^3(ANC) 14.42 10*3/uL 1.88-7.09 H (test code = 2085086895) IMM GRAN x10^3 (test 0.61 10*3/uL 0-0.06 H code = 4979601680) LYMPH x10^3 (test code 0.78 10*3/uL 1.32-3.29 L = 731-0) MONO x10^3 (test code 1.64 10*3/uL 0.33-0.92 H = 742-7) EOS x10^3 (test code = 0.06 10*3/uL 0.03-0.39 711-2) BASO x10^3 (test code 0.04 10*3/uL 0.01-0.07 = 704-7) BASO STIPPLING (test Present A code = 703-9) TOXIC CHANGES (test Present A code = 803-7) Lab Interpretation Abnormal (test code = 90496-9) [facility] METABOLIC PANEL (NA, K, CL, CO2, GLUCOSE, BUN, CREATININE, CA)2020-04-10 12:56:00 Test Item Value Reference Range Interpretation Comments NA (test code = 143 mmol/L 135-145 1460842704) K (test code = 3.6 mmol/L 3.5-5 0872856604) CL (test code = 117 mmol/L 98-108 H 2256766783) CO2 TOTAL (test code = 23 mmol/L 23-31 2012364744) AGAP (test code = 2-16 6262278995) BUN (test code = 25 mg/dL 7-23 H 0022680894) GLUCOSE (test code = 123 mg/dL 70-110 H 2682272465) CREATININE (test code = 0.98 mg/dL 0.5-1.04 8075889223) CALCIUM (test code = 7.6 mg/dL 8.6-10.6 L 1138155314) eGFR Calculation mL/min/1.73m2 (Non-) (test code = 2258828702) eGFR Calculation mL/min/1.73m2 () (test code = 5459389555) JACI (test code = JACI) Association of [...] tests). Lab Interpretation Abnormal (test code = 15126-9) [facility] GLUCOSE (AUTOMATED)2020-04-10 03:48:00 Test Item Value Reference Range Interpretation Comments POCT GLU (test code = 2823696317) 97 mg/dL 70-110 Lab Interpretation (test code = Normal 75343-1) [facility] GLUCOSE (AUTOMATED)2020-04-10 00:21:00 Test Item Value Reference Range Interpretation Comments POCT GLU (test code = 7572083196) 107 mg/dL 70-110 Lab Interpretation (test code = Normal 67930-3) [facility] (NA, K, CL, CO2, GLUCOSE, BUN, CREATININE, CA)2020-04-09 12:37:00 Test Item Value Reference Range Interpretation Comments NA (test code = 137 mmol/L 135-145 3515194338) K (test code = 4.0 mmol/L 3.5-5 7968538665) CL (test code = 113 mmol/L 98-108 H 7503547708) CO2 TOTAL (test code = 20 mmol/L 23-31 L 5278659868) AGAP (test code = 2-16 9242412650) BUN (test code = 35 mg/dL 7-23 H 6258871495) GLUCOSE (test code = 126 mg/dL 70-110 H 8108099092) CREATININE (test code = 1.04 mg/dL 0.5-1.04 2661773358) CALCIUM (test code = 7.6 mg/dL 8.6-10.6 L 4629430369) eGFR Calculation mL/min/1.73m2 (Non-) (test code = 5855798677) eGFR Calculation mL/min/1.73m2 () (test code = 1741182574) JACI (test code = JACI) Association of [...] tests). Lab Interpretation Abnormal (test code = 47204-0) [facility]2020-12-29 12:37:00 Test Item Value Reference Range Interpretation Comments MAGNESIUM (test code = 4702583252) 1.7 mg/dL 1.7-2.4 Lab Interpretation (test code = Normal 47360-0) [facility]2020-12-29 12:18:00 Test Item Value Reference Range Interpretation Comments Fibrinogen (test code = 4249477253) 491 mg/dL 167-453 H Lab Interpretation (test code = Abnormal 93751-2) [facility] / [id number] 12:15:00 Test Item Value Reference Range Interpretation Comments PROTIME PATIENT (test See_Comment [Auto mated message] code = 5964-2) The system Spring[employer] generated this result transmitted ref erence range: 10.1 - 1 2.6 Seconds. The re ference range was not u sed to interpret this result as normal/abnor mal. INR (test code = 6301-6) Nor mal INR <1.1; Warfarin Therap eutic range 2.0 to 3. 0 or 2.5 to 3.5, dep ending upon the indica tions. Lab Interpretation (test Normal code = 17495-1) [facility]2020-04-09 03:48:00 Test Item Value Reference Range Interpretation Comments POCT GLU (test code = 7745583490) 160 mg/dL 70-110 H Lab Interpretation (test code = Abnormal 39910-1) [facility] METABOLIC PANEL (NA, K, CL, CO2, GLUCOSE, BUN, CREATININE, CA)2020-04-09 00:08:00 Test Item Value Reference Range Interpretation Comments NA (test code = 135 mmol/L 135-145 6850071291) K (test code = 3.8 mmol/L 3.5-5 7779930504) CL (test code = 112 mmol/L 98-108 H 1578034747) CO2 TOTAL (test code = 21 mmol/L 23-31 L 6455554531) AGAP (test code = 2-16 8535114244) BUN (test code = 40 mg/dL 7-23 H 0777514309) GLUCOSE (test code = 147 mg/dL 70-110 H 7766831245) CREATININE (test code = 1.26 mg/dL 0.5-1.04 H 4509141538) CALCIUM (test code = 7.1 mg/dL 8.6-10.6 L 8669752157) eGFR Calculation mL/min/1.73m2 (Non-) (test code = 3984086311) eGFR Calculation mL/min/1.73m2 () (test code = 1645849656) JACI (test code = JACI) Association of [...] tests). Lab Interpretation Abnormal (test code = 33818-2) [facility]MOL[facility] [id number] 23:31:00 Test Item Value Reference Range Interpretation Comments OSMO U (test code = See_Comment [Automa shira message] 7023699032) The system Jamb[employer] generated this result transmitted ref erence range: 50-1,100 mOsm/kg. The re ference range was not u sed to interpret this result as normal/abnor mal. Lab Interpretation (test Normal code = 72666-9) [facility]2020-12-28 23:26:00 Test Item Value Reference Range Interpretation Comments APPEARANCE (test code = Cloudy Clear A 8447811263) COLOR (test code = Yellow Yellow 8422262156) PH (test code = 4.8-8.0 3250461395) SP GRAVITY (test code = 1.003-1.030 0370132294) GLU U QUAL (test code = 50 mg/dL Normal A 0425900189) BLOOD (test code = 1+ Negative A 7388406390) KETONES (test code = Negative Negative 5423733382) PROTEIN (test code = 30 mg/dL Negative A 2887-8) UROBILIN (test code = Normal Normal 6052011075) BILIRUBIN (test code = Negative Negative 1548493605) NITRITE (test code = Negative Negative 7091205253) LEUK TRENA (test code = 75/uL Negative A 2648487345) RBC/HPF (test code = See_Comment H [Autom ated message] 6748907452) The system [employer] generated this result transmitted ref erence range: 0 - 3 HP F. The reference range was not used to int erpret this result as normal/abnormal . WBC/HPF (test code = See_Comment H [Autom ated message] 1276693076) The system [employer] generated this result transmitted ref erence range: 0 - 5 HP F. The reference range was not used to int erpret this result as normal/abnormal . BACTERIA (test code = Few Negative A 7410929071) MUCOUS (test code = Slight Negative LPF A 6711032905) AMORPHOUS (test code = Rare Rare HPF 8040799731) SQ EPITH (test code = See_Comment [Auto mated message] 9560337558) The system [employer] generated this result transmitted ref erence range: <=2 HPF. The reference range was not used to int erpret this result as normal/abnormal . YEAST BUD (test code = See_Comment H [Aut omated message] 9543238103) The system [employer] generated this result transmitted ref erence range: <=1 HPF. The reference range was not used to int erpret this result as normal/abnormal . Lab Interpretation (test Abnormal code = 40992-6) [facility] 23:07:00 Test Item Value Reference Range Interpretation Comments POCT GLU (test code = 9431969771) 166 mg/dL 70-110 H Lab Interpretation (test code = Abnormal 82841-9) [facility] URINE [id number] 22:24:00 Test Item Value Reference Range Interpretation Comments NA URINE (test code = 1668188952) 87 mmol/L [facility]OT[facility], URINE [id number] 22:24:00 Test Item Value Reference Range Interpretation Comments K URINE (test code = 6142854948) 15.7 mmol/L [facility] [id number] 21:01:00 Test Item Value Reference Range Interpretation Comments Blood Culture-Aerobic No organisms No growth Previo us (test code = 21485-3) isolated prelim inary verified result was Culture In Progress on 04/03/2020 at 1801 CSTPreviou s preliminary verified result was No growth a t 24 hours on 04/04/2020 at 1501 CSTPreviou s preliminary verified result was No growth a t 48 hours on 04/05/2020 at 1501 CSTPreviou s preliminary verified result was No growth a t 72 hours on 04/06/2020 at 1501 [employer] Blood No organisms No growth Previous Culture-Anaerobic isolated preliminar y (test code = 53992-9) verifi ed result was Culture In Progress on 04/03/2020 at 1801 CSTPreviou s preliminary verified result was No growth a t 24 hours on 04/04/2020 at 1501 CSTPreviou s preliminary verified result was No growth a t 48 hours on 04/05/2020 at 1501 CSTPreviou s preliminary verified result was No growth a t 72 hours on 04/06/2020 at 1501 [employer] Lab Interpretation Normal (test code = 43128-2) [facility]2020-04-08 20:03:00 Test Item Value Reference Range Interpretation Comments POCT GLU (test code = 4712351255) 170 mg/dL 70-110 H Lab Interpretation (test code = Abnormal 40342-9) [facility] METABOLIC PANEL (NA, K, CL, CO2, GLUCOSE, BUN, CREATININE, CA)2020-04-08 16:26:00 Test Item Value Reference Range Interpretation Comments NA (test code = 136 mmol/L 135-145 9979071564) K (test code = 3.8 mmol/L 3.5-5 5491518598) CL (test code = 113 mmol/L 98-108 H 5816613892) CO2 TOTAL (test code = 19 mmol/L 23-31 L 0009621346) AGAP (test code = 2-16 7459980224) BUN (test code = 44 mg/dL 7-23 H 0961258809) GLUCOSE (test code = 165 mg/dL 70-110 H 5066863990) CREATININE (test code = 1.25 mg/dL 0.5-1.04 H 3604455088) CALCIUM (test code = 7.1 mg/dL 8.6-10.6 L 8957275814) eGFR Calculation mL/min/1.73m2 (Non-) (test code = 6497348108) eGFR Calculation mL/min/1.73m2 () (test code = 3617467732) JACI (test code = JACI) Association of [...] tests). Lab Interpretation Abnormal (test code = 30391-9) [facility] [id number] 14:01:00 Test Item Value Reference Range Interpretation Comments Blood Culture-Aerobic No organisms No growth Previo us (test code = 15563-0) isolated prelim inary verified result was Culture In Progress on 04/03/2020 at 1101 CSTPreviou s preliminary verified result was No growth a t 24 hours on 04/04/2020 at 0801 CSTPreviou s preliminary verified result was No growth a t 48 hours on 04/05/2020 at 0801 CSTPreviou s preliminary verified result was No growth a t 72 hours on 04/06/2020 at 0801 [employer] Blood No organisms No growth Previous Culture-Anaerobic isolated preliminar y (test code = 54280-4) verifi ed result was Culture In Progress on 04/03/2020 at 1101 CSTPreviou s preliminary verified result was No growth a t 24 hours on 04/04/2020 at 0801 CSTPreviou s preliminary verified result was No growth a t 48 hours on 04/05/2020 at 0801 CSTPreviou s preliminary verified result was No growth a t 72 hours on 04/06/2020 at 0801 [employer] Lab Interpretation Normal (test code = 92422-3) [facility]2020-12-28 09:55:00 Test Item Value Reference Range Interpretation Comments MAGNESIUM (test code = 5691268259) 1.5 mg/dL 1.7-2.4 L Lab Interpretation (test code = Abnormal 39577-7) [facility] (NA, K, CL, CO2, GLUCOSE, BUN, CREATININE, CA)2020-04-08 09:55:00 Test Item Value Reference Range Interpretation Comments NA (test code = 139 mmol/L 135-145 9871202256) K (test code = 4.0 mmol/L 3.5-5 2985896312) CL (test code = 118 mmol/L 98-108 H 5925992397) CO2 TOTAL (test code = 19 mmol/L 23-31 L 9256767175) AGAP (test code = 2-16 9358521307) BUN (test code = 51 mg/dL 7-23 H 7936695397) GLUCOSE (test code = 146 mg/dL 70-110 H 1512518363) CREATININE (test code = 1.46 mg/dL 0.5-1.04 H 8695346565) CALCIUM (test code = 7.2 mg/dL 8.6-10.6 L 0086738031) eGFR Calculation mL/min/1.73m2 (Non-) (test code = 6245651558) eGFR Calculation mL/min/1.73m2 () (test code = 1167691486) JACI (test code = JACI) Association of [...] tests). Lab Interpretation Abnormal (test code = 02684-4) [facility]2020-12-28 09:54:00 Test Item Value Reference Range Interpretation Comments Fibrinogen (test code = 5498333972) 387 mg/dL 167-453 Lab Interpretation (test code = Normal 05435-6) [facility]PROT[facility] / [id number] 09:43:00 Test Item Value Reference Range Interpretation Comments PROTIME PATIENT (test See_Comment [Auto mated message] code = 5964-2) The system Springpad generated this result transmitted ref erence range: 10.1 - 1 2.6 Seconds. The re ference range was not u sed to interpret this result as normal/abnor mal. INR (test code = 6301-6) Nor mal INR <1.1; Warfarin Therap eutic range 2.0 to 3. 0 or 2.5 to 3.5, dep ending upon the indica tions. Lab Interpretation (test Normal code = 92701-6) [facility] WITHOUT [id number] 09:35:00 Test Item Value Reference Range Interpretation Comments WBC (test code = 6690-2) See_Comment H [A utomated message] The system [employer] generated this result transmit shira reference range : 4.30 - 11.10 10*3/?L. The reference range was not used to interpret this result as normal/abnormal . RBC (test code = 789-8) See_Comment L [Au tomated message] The system [employer] generated this result transmit shira reference range [...] See_Comment L [Au tomated message] The system [employer] generated this result transmit shira reference range : 166 - 358 10*3/?L. The reference range was not used to interpret this result as normal/abnormal . MPV (test code = 12.4 fL 9.5-12.9 22521-2) RDW-CV (test code = 18.4 % 12-15.5 H 788-0) RDW-SD (test code = 55.8 fL 39-49.9 H 93487-8) NRBC x10^3 (test code = See_Comment [Au tomated message] 1342151107) The system [employer] generated this result transmit shira reference range : 10*3/?L. The reference range was not used to interpret this result as normal/abnormal . NRBC/100 WBC (test code See_Comment [Au tomated message] = 2674099191) The system [facility] generated this result transmit shira reference range : 0.0 - 10.0 /100 WBC s. The reference r louise was not used to interpret this result as normal/abnormal . IPF % (test code = 0480328753) Lab Interpretation (test Abnormal code = 01515-5) [facility] (NA, K, CL, CO2, GLUCOSE, BUN, CREATININE, CA)2020-04-08 03:23:00 Test Item Value Reference Range Interpretation Comments NA (test code = 142 mmol/L 135-145 9914943790) K (test code = 3.7 mmol/L 3.5-5 2127412424) CL (test code = 119 mmol/L 98-108 H 9418011914) CO2 TOTAL (test code = 18 mmol/L 23-31 L 9098170295) AGAP (test code = 2-16 8646960504) BUN (test code = 58 mg/dL 7-23 H 1081980455) GLUCOSE (test code = 122 mg/dL 70-110 H 3232801853) CREATININE (test code = 1.60 mg/dL 0.5-1.04 H 6773035097) CALCIUM (test code = 7.4 mg/dL 8.6-10.6 L 6036626269) eGFR Calculation mL/min/1.73m2 (Non-) (test code = 5337249234) eGFR Calculation mL/min/1.73m2 () (test code = 9214305456) JACI (test code = JACI) Association of [...] tests). Lab Interpretation Abnormal (test code = 76271-8) [facility] GLUCOSE (AUTOMATED)2020-04-08 02:30:00 Test Item Value Reference Range Interpretation Comments POCT GLU (test code = 8033139417) 131 mg/dL 70-110 H Lab Interpretation (test code = Abnormal 71294-9) [facility] GLUCOSE (AUTOMATED)2020-04-08 01:48:00 Test Item Value Reference Range Interpretation Comments POCT GLU (test code = 6125317648) 125 mg/dL 70-110 H Lab Interpretation (test code = Abnormal 03006-2) [facility] METABOLIC PANEL (NA, K, CL, CO2, GLUCOSE, BUN, CREATININE, CA)2020-04-07 20:43:00 Test Item Value Reference Range Interpretation Comments NA (test code = 143 mmol/L 135-145 5976725075) K (test code = 4.6 mmol/L 3.5-5 3281515155) CL (test code = 124 mmol/L 98-108 H 8541198014) CO2 TOTAL (test code = 16 mmol/L 23-31 L 5918434642) AGAP (test code = 2-16 3073129932) BUN (test code = 63 mg/dL 7-23 H 7510874953) GLUCOSE (test code = 109 mg/dL 70-110 9391868504) CREATININE (test code = 1.74 mg/dL 0.5-1.04 H 9160500408) CALCIUM (test code = 7.7 mg/dL 8.6-10.6 L 0335881112) eGFR Calculation mL/min/1.73m2 (Non-) (test code = 9913845965) eGFR Calculation mL/min/1.73m2 () (test code = 2132195316) JACI (test code = JACI) Association of [...] tests). Lab Interpretation Abnormal (test code = 96759-3) [facility]2020-[facility]-27 20:35:00 Test Item Value Reference Range Interpretation Comments MAGNESIUM (test code = 0806516083) 1.7 mg/dL 1.7-2.4 Lab Interpretation (test code = Normal 76568-7) [facility] WITHOUT [id number] 20:22:00 Test Item Value Reference Range Interpretation Comments WBC (test code = 6690-2) See_Comment H [A utomated message] The system [employer] generated this result transmit shira reference range : 4.30 - 11.10 10*3/?L. The reference range was not used to interpret this result as normal/abnormal . RBC (test code = 789-8) See_Comment L [Au tomated message] The system [employer] generated this result transmit shira reference range [...] See_Comment L [Au tomated message] The system [employer] generated this result transmit shira reference range : 166 - 358 10*3/?L. The reference range was not used to interpret this result as normal/abnormal . MPV (test code = 12.0 fL 9.5-12.9 12022-4) RDW-CV (test code = 18.3 % 12-15.5 H 788-0) RDW-SD (test code = 57.6 fL 39-49.9 H 67485-4) NRBC x10^3 (test code = See_Comment [Au tomated message] 5528033194) The system [employer] generated this result transmit shira reference range : 10*3/?L. The reference range was not used to interpret this result as normal/abnormal . NRBC/100 WBC (test code See_Comment [Au tomated message] = 4341819327) The system [facility] generated this result transmit shira reference range : 0.0 - 10.0 /100 WBC s. The reference r louise was not used to interpret this result as normal/abnormal . IPF % (test code = 4535629736) Lab Interpretation (test Abnormal code = 60185-7) [facility] [id number] 20:12:42 The tip and side- port of [...] within the gastriclumen.Preliminary Report Dictated by Resident: Khai Yang, Deng English MD., have reviewed this study and agree withthe above report. [facility] GLUCOSE (AUTOMATED)2020-04-07 18:25:00 Test Item Value Reference Range Interpretation Comments POCT GLU (test code = 1210222261) 119 mg/dL 70-110 H Lab Interpretation (test code = Abnormal 56671-0) [facility] GLUCOSE (AUTOMATED)2020-04-07 14:25:00 Test Item Value Reference Range Interpretation Comments POCT GLU (test code = 9323343411) 106 mg/dL 70-110 Lab Interpretation (test code = Normal 26326-5) [facility] METABOLIC PANEL (NA, K, CL, CO2, GLUCOSE, BUN, CREATININE, CA)2020-04-07 10:40:00 Test Item Value Reference Range Interpretation Comments NA (test code = 146 mmol/L 135-145 H 8609210164) K (test code = 3.4 mmol/L 3.5-5 L 3192257859) CL (test code = 127 mmol/L 98-108 H 2275768088) CO2 TOTAL (test code = 14 mmol/L 23-31 L 3802260147) AGAP (test code = 2-16 3381702718) BUN (test code = 77 mg/dL 7-23 H 3160056843) GLUCOSE (test code = 90 mg/dL 70-110 4401035785) CREATININE (test code = 1.79 mg/dL 0.5-1.04 H 1112401035) CALCIUM (test code = 7.6 mg/dL 8.6-10.6 L 3148246353) eGFR Calculation mL/min/1.73m2 (Non-) (test code = 0754019338) eGFR Calculation mL/min/1.73m2 () (test code = 9846094044) JACI (test code = JACI) Association of [...] tests). Lab Interpretation Abnormal (test code = 28348-7) [facility]2020[facility] 07:41:00 Test Item Value Reference Range Interpretation Comments Fibrinogen (test code = 3793759386) 265 mg/dL 167-453 Lab Interpretation (test code = Normal 24570-6) [facility] AtlantaPROTHROM[facility] / [id number] 07:38:00 Test Item Value Reference Range Interpretation Comments PROTIME PATIENT (test See_Comment [Auto mated message] code = 5964-2) The system Springpad generated this result transmitted ref erence range: 10.1 - 1 2.6 Seconds. The re ference range was not u sed to interpret this result as normal/abnor mal. INR (test code = 6301-6) Nor mal INR <1.1; Warfarin Therap eutic range 2.0 to 3. 0 or 2.5 to 3.5, dep ending upon the indica tions. Lab Interpretation (test Normal code = 87211-6) [facility] WITHOUT [id number] 07:36:00 Test Item Value Reference Range Interpretation Comments WBC (test code = 6690-2) See_Comment H [A utomated message] The system Jamb[employer] generated this result transmit shira reference range : 4.30 - 11.10 10*3/?L. The reference range was not used to interpret this result as normal/abnormal . RBC (test code = 789-8) See_Comment L [Au tomated message] The system [employer] generated this result transmit shira reference range [...] See_Comment L [Au tomated message] The system [employer] generated this result transmit shira reference range : 166 - 358 10*3/?L. The reference range was not used to interpret this result as normal/abnormal . MPV (test code = 12.3 fL 9.5-12.9 97289-8) RDW-CV (test code = 17.5 % 12-15.5 H 788-0) RDW-SD (test code = 53.5 fL 39-49.9 H 85940-8) NRBC x10^3 (test code = See_Comment [Au tomated message] 2964749717) The system [employer] generated this result transmit shira reference range : 10*3/?L. The reference range was not used to interpret this result as normal/abnormal . NRBC/100 WBC (test code See_Comment [Au tomated message] = 3214809095) The system [employer] generated this result transmit shira reference range : 0.0 - 10.0 /100 WBC s. The reference r louise was not used to interpret this result as normal/abnormal . IPF % (test code = 5059454168) Lab Interpretation (test Abnormal code = 32071-9) [facility] COVID [id number] 04:54:00COVID DMT InterpretationInterpretation/Recommendations: Molecular NAAT Tests for Active Infection with the SARS-CoV-2 Virus: This patient has a history of testing negative on multiple occasions for qsuBJBN-OnL-7 virus that causes COVID-19 illness, with no [...] COVID-19 testing the patient has had at [facility], including molecular NAAT testing (more commonly known as PCR testing and Rapid ID Now testing) and antibody testing. It does not take into account any testing that a patient has had outside of the [facility] medical record. [facility] SERVICESLABORATORY SERVICESCOVID NdficzwARIB-MyH-9 NAAT (no units) ? ? Date ? Value ? 01/15/2020 ? Not Detected ? ? ? 11/16/2019 ? Not Detected ? SARS-CoV-2 Rapid ID NOW (no units) ? ? Date ? Value ? 04/02/2020 ? Not Detected ? ? ? 03/26/2020 ? Not Detected ? ? ? 01/22/2020 ? Not Detected ? [facility]2020-04-07 02:15:00 Test Item Value Reference Range Interpretation Comments POCT GLU (test code = 6652929667) 148 mg/dL 70-110 H Lab Interpretation (test code = Abnormal 03021-8) [facility] GLUCOSE (AUTOMATED)2020-04-06 21:46:00 Test Item Value Reference Range Interpretation Comments POCT GLU (test code = 7959401185) 151 mg/dL 70-110 H Lab Interpretation (test code = Abnormal 23419-8) [facility] WITHOUT [id number] 18:01:00 Test Item Value Reference Range Interpretation Comments WBC (test code = 6690-2) See_Comment H [A utomated message] The system Jambool generated this result transmit shira reference range : 4.30 - 11.10 10*3/?L. The reference range was not used to interpret this result as normal/abnormal . RBC (test code = 789-8) See_Comment L [Au tomated message] The system [facility] generated this result transmit shira reference [...] See_Comment L [Au tomated message] The system [facility] generated this result transmit shira reference range : 166 - 358 10*3/?L. The reference range was not used to interpret this result as normal/abnormal . MPV (test code = 12.4 fL 9.5-12.9 85559-8) RDW-CV (test code = 17.2 % 12-15.5 H 788-0) RDW-SD (test code = 53.0 fL 39-49.9 H 96070-3) NRBC x10^3 (test code = See_Comment [Au tomated message] 0818556937) The system [facility] generated this result transmit shira reference range : 10*3/?L. The reference range was not used to interpret this result as normal/abnormal . NRBC/100 WBC (test code See_Comment [Au tomated message] = 2116617442) The system [facility] generated this result transmit shira reference range : 0.0 - 10.0 /100 WBC s. The reference r louise was not used to interpret this result as normal/abnormal . IPF % (test code = 0083879509) Lab Interpretation (test Abnormal code = 76705-8) [facility] AtlantaCLOSTRIDIUM DIFFICILE [id number] 16:51:00 Test Item Value Reference Range Interpretation Comments Clostridioides (Clostridium) Negative Negative difficile (test code = 81874-3) Lab Interpretation (test code = Normal 59285-5) [facility] WITHOUT [id number] 14:56:00 Test Item Value Reference Range Interpretation Comments WBC (test code = 6690-2) See_Comment H [A utomated message] The system [employer] generated this result transmit shira reference range : 4.30 - 11.10 10*3/?L. The reference range was not used to interpret this result as normal/abnormal . RBC (test code = 789-8) See_Comment L [Au tomated message] The system [employer] generated this result transmit shira reference range [...] See_Comment L [Au tomated message] The system [employer] generated this result transmit shira reference range : 166 - 358 10*3/?L. The reference range was not used to interpret this result as normal/abnormal . MPV (test code = 12.1 fL 9.5-12.9 50885-3) RDW-CV (test code = 17.2 % 12-15.5 H 788-0) RDW-SD (test code = 52.2 fL 39-49.9 H 35570-9) NRBC x10^3 (test code = See_Comment [Au tomated message] 9293178082) The system [employer] generated this result transmit shira reference range : 10*3/?L. The reference range was not used to interpret this result as normal/abnormal . NRBC/100 WBC (test code See_Comment [Au tomated message] = 8071356513) The system [employer] generated this result transmit shira reference range : 0.0 - 10.0 /100 WBC s. The reference r louise was not used to interpret this result as normal/abnormal . IPF % (test code = 6745162273) Lab Interpretation (test Abnormal code = 07602-9) [facility] GLU[facility]SE (AUTOMATED)2020-04-06 14:55:00 Test Item Value Reference Range Interpretation Comments POCT GLU (test code = 0421919738) 175 mg/dL 70-110 H Lab Interpretation (test code = Abnormal 76679-2) [facility] METABOLIC PANEL (NA, K, CL, CO2, GLUCOSE, BUN, CREATININE, CA)2020-04-06 10:28:00 Test Item Value Reference Range Interpretation Comments NA (test code = 152 mmol/L 135-145 H 8849241201) K (test code = 3.8 mmol/L 3.5-5 7978715406) CL (test code = 134 mmol/L 98-108 H 6983556261) CO2 TOTAL (test code = 13 mmol/L 23-31 L 5477851440) AGAP (test code = 2-16 0103666877) BUN (test code = 109 mg/dL 7-23 H 4471922298) GLUCOSE (test code = 173 mg/dL 70-110 H 3345562414) CREATININE (test code = 2.25 mg/dL 0.5-1.04 H 1736593087) CALCIUM (test code = 7.9 mg/dL 8.6-10.6 L 5899942462) eGFR Calculation mL/min/1.73m2 (Non-) (test code = 7496080818) eGFR Calculation mL/min/1.73m2 () (test code = 3704708147) JACI (test code = JACI) Association of [...] tests). Lab Interpretation Abnormal (test code = 07520-6) [facility]2020-12-26 10:03:00 Test Item Value Reference Range Interpretation Comments Fibrinogen (test code = 3672533782) 238 mg/dL 167-453 Lab Interpretation (test code = Normal 18475-7) [facility] AtlantaPROTHROMBIN TIME / [id number] 09:55:00 Test Item Value Reference Range Interpretation Comments PROTIME PATIENT (test See_Comment H [Auto mated message] code = 5964-2) The system Springpad generated this result transmitted ref erence range: 10.1 - 1 2.6 Seconds. The reference range was not used to int erpret this result as normal/abnormal . INR (test code = 6301-6) Nor mal INR <1.1; Warfarin Therap eutic range 2.0 to 3. 0 or 2.5 to 3.5, dep ending upon the indica tions. Lab Interpretation (test Abnormal code = 76585-8) [facility] AtlantaACTIV[facility] PARTIAL THRMPLAS [id number] 09:55:00 Test Item Value Reference Range Interpretation Comments APTT Patient (test code See_Comment L [Au tomated message] = 3173-2) The system Jamb[employer] generated this result transmitted ref erence range: 26 - 36 Seconds. The reference range was not used to int erpret this result as normal/abnormal . Lab Interpretation (test Abnormal code = 00221-9) [facility] WITHOUT [id number] 09:39:00 Test Item Value Reference Range Interpretation Comments WBC (test code = 6690-2) See_Comment H [A utomated message] The system J[employer] generated this result transmit shira reference range : 4.30 - 11.10 10*3/?L. The reference range was not used to interpret this result as normal/abnormal . RBC (test code = 789-8) See_Comment L [Au tomated message] The system [employer] generated this result transmit shira reference range [...] See_Comment L [Au tomated message] The system [employer] generated this result transmit shira reference range : 166 - 358 10*3/?L. The reference range was not used to interpret this result as normal/abnormal . MPV (test code = 12.0 fL 9.5-12.9 59017-4) RDW-CV (test code = 16.9 % 12-15.5 H 788-0) RDW-SD (test code = 52.3 fL 39-49.9 H 99010-0) NRBC x10^3 (test code = See_Comment [Au tomated message] 8998464197) The system J[employer] generated this result transmit shira reference range : 10*3/?L. The reference range was not used to interpret this result as normal/abnormal . NRBC/100 WBC (test code See_Comment [Au tomated message] = 2994085037) The system [facility] generated this result transmit shira reference range : 0.0 - 10.0 /100 WBC s. The reference r louise was not used to interpret this result as normal/abnormal . IPF % (test code = 9772397901) Lab Interpretation (test Abnormal code = 24380-1) [facility] AtlantaGASTRIN2020-12-26 07:32:00 Test Item Value Reference Range Interpretation Comments GASTRIN (test code = 48 pg/mL 0-100 Perform ed By: KRISTEN 2333-3) [address] [place] [address] 18051Zcdjinnlzs Director: Elida Jansen MD [facility] AtlantaPrepare Packed RBC (in units), 1 Units 2020-04-06 04:48:05 Test Item Value Reference Range Interpretation Comments Cross Match Result Compatible (test code = 4409) ISBT Blood Type Code (test code = 117035) Unit Blood Type (test A Pos code = 4410) Unit Number (test [id number] code = 4411) Blood Expiration Date & Time (test code = 912851) Status Information Issued (test code = 4412) Product Red Blood Cells Identification (test code = 4413) Product Code (test L7323E79 Performed at [facility] code = 4414) Laboratory Services - [facility] Blood [address] [place] [address] 43645Pipz Free: [phone] A No. [id number] [facility] (NA, K, CL, CO2, GLUCOSE, BUN, CREATININE, CA)2020-04-06 04:41:00 Test Item Value Reference Range Interpretation Comments NA (test code = 153 mmol/L 135-145 H 4338583590) K (test code = 3.6 mmol/L 3.5-5 2234739372) CL (test code = 134 mmol/L 98-108 H 1925458008) CO2 TOTAL (test code = 14 mmol/L 23-31 L 0210854223) AGAP (test code = 2-16 8950159121) BUN (test code = 115 mg/dL 7-23 H 3887358430) GLUCOSE (test code = 184 mg/dL 70-110 H 3105789780) CREATININE (test code = 2.48 mg/dL 0.5-1.04 H 7167919430) CALCIUM (test code = 7.9 mg/dL 8.6-10.6 L 0166611549) eGFR Calculation mL/min/1.73m2 (Non-) (test code = 8697926865) eGFR Calculation mL/min/1.73m2 () (test code = 2449781730) JACI (test code = JACI) Association of [...] tests). Lab Interpretation Abnormal (test code = 16279-3) [facility] WITHOUT [id number] 04:15:00 Test Item Value Reference Range Interpretation Comments WBC (test code = 6690-2) See_Comment H [A utomated message] The system Jamb[employer] generated this result transmit shira reference range : 4.30 - 11.10 10*3/?L. The reference range was not used to interpret this result as normal/abnormal . RBC (test code = 789-8) See_Comment L [Au tomated message] The system [employer] generated this result transmit shira reference range [...] See_Comment L [Au tomated message] The system [facility] generated this result transmit shira reference range : 166 - 358 10*3/?L. The reference range was not used to interpret this result as normal/abnormal . MPV (test code = 12.0 fL 9.5-12.9 14788-5) RDW-CV (test code = 16.9 % 12-15.5 H 788-0) RDW-SD (test code = 51.8 fL 39-49.9 H 09581-6) NRBC x10^3 (test code = See_Comment [Au tomated message] 2855648096) The system Jamb[employer] generated this result transmit shira reference range : 10*3/?L. The reference range was not used to interpret this result as normal/abnormal . NRBC/100 WBC (test code See_Comment [Au tomated message] = 3129662393) The system [facility] generated this result transmit shira reference range : 0.0 - 10.0 /100 WBC s. The reference r louise was not used to interpret this result as normal/abnormal . IPF % (test code = 1210938114) Lab Interpretation (test Abnormal code = 93807-7) [facility]OMATED)2020-04-06 02:43:00 Test Item Value Reference Range Interpretation Comments POCT GLU (test code = 6217345203) 232 mg/dL 70-110 H Lab Interpretation (test code = Abnormal 50295-3) [facility] AtlantaUS RETROPERITONEAL [id number] 02:26:45 Limited evaluation due to large body habitus. No hydronephrosis or focal lesion of the right kidney. The left kidneys notvisualized. Preliminary Report Dictated by Resident: Zach Stewart MD., have reviewed this study and agree with the abovereport.EXAM: US RETROPERITONEAL LIMITED HISTORY: 80 years- old Female with KARTIK US both kidneys. TECHNIQUE: Ultrasound of kidneys was performed with grayscale and selectedcolor Doppler imaging. Sk[employer] Maker images were obtained for the record. COMPARISON: None FINDINGS: The examination is severely limited due to large body habitus. KIDNEYS:RIGHT:Size: 9.6 x 4.6 x 5.2 cm.Parenchyma: Normal renal cortical thickness. No focal solid or cystic renallesions are detected.Collecting System: No hydronephrosis. LEFT:Not visualized. Memb, Radiant Results Inft User - 04/05/2020 8:27 PM CSTEXAM: US RETROPERITONEAL LIMITEDHISTORY: 80 years-old Female with KARTIK US both kidneys.TECHNIQUE: Ultrasound of kidneys was performed with grayscale and selectedcolor Doppler imaging. Sk[employer] Maker images were obtained for the record.COMPARISON: NoneFINDINGS:The [...] reviewed this study and agree with the abovereport.[facility] AtlantaINTACT PTH CALCIUM [id number] 02:01:00 Test Item Value Reference Range Interpretation Comments PTH-INTACT (test code = 197.7 pg/mL 12-88 H 4568707222) PTH-CA Interpretation Furthe r clinical (test code = 3327917613) kalpana a needed for interpretation. CALCIUM (test code = 7.9 mg/dL 8.6-10.6 L 8721701635) Lab Interpretation (test Abnormal code = 38288-0) [facility] (NA, K, CL, CO2, GLUCOSE, BUN, CREATININE, CA)2020-04-06 00:44:00 Test Item Value Reference Range Interpretation Comments NA (test code = 155 mmol/L 135-145 H 7070031357) K (test code = 3.8 mmol/L 3.5-5 7802567200) CL (test code = 134 mmol/L 98-108 H 5541686037) CO2 TOTAL (test code = 14 mmol/L 23-31 L 1488553565) AGAP (test code = 2-16 1344501637) BUN (test code = 117 mg/dL 7-23 H 3653585130) GLUCOSE (test code = 213 mg/dL 70-110 H 9113921536) CREATININE (test code = 2.47 mg/dL 0.5-1.04 H 1108142675) CALCIUM (test code = 7.9 mg/dL 8.6-10.6 L 2885216087) eGFR Calculation mL/min/1.73m2 (Non-) (test code = 2363752113) eGFR Calculation mL/min/1.73m2 () (test code = 9376704389) JACI (test code = JACI) Association of [...] tests). Lab Interpretation Abnormal (test code = 22145-1) [facility] AtlantaPhosphorus [id number] 00:44:00 Test Item Value Reference Range Interpretation Comments PHOSPHORUS (test code = 1762484552) 3.6 mg/dL 2.5-5 Lab Interpretation (test code = Normal 90843-2) [facility] AtlantaCBC WITHOUT [id number] 00:22:00 Test Item Value Reference Range Interpretation Comments WBC (test code = 6690-2) See_Comment H [A utomated message] The system J[employer] generated this result transmit shira reference range : 4.30 - 11.10 10*3/?L. The reference range was not used to interpret this result as normal/abnormal . RBC (test code = 789-8) See_Comment L [Au tomated message] The system [employer] generated this result transmit shira reference range [...] See_Comment L [Au tomated message] The system [employer] generated this result transmit shira reference range : 166 - 358 10*3/?L. The reference range was not used to interpret this result as normal/abnormal . MPV (test code = 12.0 fL 9.5-12.9 59027-9) RDW-CV (test code = 16.6 % 12-15.5 H 788-0) RDW-SD (test code = 51.1 fL 39-49.9 H 51467-0) NRBC x10^3 (test code = See_Comment [Au tomated message] 7177313457) The system [employer] generated this result transmit shira reference range : 10*3/?L. The reference range was not used to interpret this result as normal/abnormal . NRBC/100 WBC (test code See_Comment [Au tomated message] = 7731456455) The system [facility] generated this result transmit shira reference range : 0.0 - 10.0 /100 WBC s. The reference r louise was not used to interpret this result as normal/abnormal . IPF % (test code = 7013163472) Lab Interpretation (test Abnormal code = 23195-6) [facility] AtlantaPROTEIN CREAT RATIO URINE [id number] 21:51:00 Test Item Value Reference Range Interpretation Comments T. PROT U (test code = 2888-6) 16 mg/dL CREAT U (test code = 3519447083) 31.6 mg/dL Protein/Creatinine Ratio Urine 0.0-2.0 (test code = 5145360461) [facility] AtlantaUREA NITROGEN, URINE [id number] 21:51:00 Test Item Value Reference Range Interpretation Comments UREA N UR (test code = 8359284109) 796 mg/dL [facility] AtlantaSODIUM, URINE [id number] 21:19:00 Test Item Value Reference Range Interpretation Comments NA URINE (test code = 0303942725) 78 mmol/L [facility] AtlantaCBC WITHOUT [id number] 20:39:00 Test Item Value Reference Range Interpretation Comments WBC (test code = 6690-2) See_Comment H [A utomated message] The system [employer] generated this result transmit shira reference range : 4.30 - 11.10 10*3/?L. The reference range was not used to interpret this result as normal/abnormal . RBC (test code = 789-8) See_Comment L [Au tomated message] The system [employer] generated this result transmit shira reference range [...] See_Comment L [Au tomated message] The system [facility] generated this result transmit shira reference range : 166 - 358 10*3/?L. The reference range was not used to interpret this result as normal/abnormal . MPV (test code = 11.8 fL 9.5-12.9 20674-7) RDW-CV (test code = 16.2 % 12-15.5 H 788-0) RDW-SD (test code = 50.9 fL 39-49.9 H 28312-3) NRBC x10^3 (test code = See_Comment [Au tomated message] 4540669438) The system [facility] generated this result transmit shira reference range : 10*3/?L. The reference range was not used to interpret this result as normal/abnormal . NRBC/100 WBC (test code See_Comment [Au tomated message] = 2811434765) The system [facility] generated this result transmit shira reference range : 0.0 - 10.0 /100 WBC s. The reference r louise was not used to interpret this result as normal/abnormal . IPF % (test code = 6972297961) Lab Interpretation (test Abnormal code = 82940-7) [facility] METABOLIC PANEL (NA, K, CL, CO2, GLUCOSE, BUN, CREATININE, CA)2020-04-05 18:56:00 Test Item Value Reference Range Interpretation Comments NA (test code = 155 mmol/L 135-145 H 3941810119) K (test code = 3.9 mmol/L 3.5-5 4286786847) CL (test code = 136 mmol/L 98-108 H 8054729697) CO2 TOTAL (test code = 14 mmol/L 23-31 L 4200858951) AGAP (test code = 2-16 4920429074) BUN (test code = 122 mg/dL 7-23 H 5143335556) GLUCOSE (test code = 147 mg/dL 70-110 H 3178637699) CREATININE (test code = 2.60 mg/dL 0.5-1.04 H 0180657550) CALCIUM (test code = 7.9 mg/dL 8.6-10.6 L 6108754975) eGFR Calculation mL/min/1.73m2 (Non-) (test code = 1915268415) eGFR Calculation mL/min/1.73m2 () (test code = 3503286252) JACI (test code = JACI) Association of [...] tests). Lab Interpretation Abnormal (test code = 65623-2) [facility] GLUCOSE (AUTOMATED)2020-04-05 18:20:00 Test Item Value Reference Range Interpretation Comments POCT GLU (test code = 4124329137) 157 mg/dL 70-110 H Lab Interpretation (test code = Abnormal 50320-6) [facility] AtlantaHAPTOGLOBIN, [id number] 17:27:00 Test Item Value Reference Range Interpretation Comments HAPTOGLOB (test code = 1382574774) 37 mg/dL 16-200 Lab Interpretation (test code = Normal 66880-3) [facility] AtlantaPrepare Packed RBC (in units)2020-04-05 16:58:07 Test Item Value Reference Range Interpretation Comments Cross Match Result Compatible (test code = 4409) ISBT Blood Type Code (test code = 771325) Unit Blood Type (test A Pos code = 4410) Unit Number (test [id number] code = 4411) Blood Expiration Date & Time (test code = 625097) Status Information Issued (test code = 4412) Product Red Blood Cells Identification (test code = 4413) Product Code (test R4543B87 Performed at [facility] code = 4414) Laboratory Services - [facility] Blood [address] [place] [address] 37651Wtss Free: [phone] A No. [id number] [facility] AtlantaRETICULOCYTES [id number] 16:18:00 Test Item Value Reference Range Interpretation Comments RETIC Count Automated 2.08 % 0.51-1.9 H (test code = 5708106050) RETIC Absolute Count See_Comment Reticul ocyte count (test code = 3530296200) may be affected by the presence of an interfering sub stance or condition. [Automated mess age] The system [employer] generated this result transmitted ref erence range: 0.0230 - 0.0950 10*6/?L. The reference range was not used to int erpret this result as normal/abnormal . IRF % (test code = 43.10 % 2.1-12.6 H 4683995932) RETIC-HE (test code = 35.8 pg 28.1-35.8 5226002326) Lab Interpretation (test Abnormal code = 98240-7) [facility] [id number] 15:06:00 Test Item Value Reference Range Interpretation Comments LDH (test code = 6211549906) 681 U/L 300-600 H Lab Interpretation (test code = Abnormal 33405-6) [facility]2020-12-25 14:54:00 Test Item Value Reference Range Interpretation Comments Fibrinogen (test code = 8740131970) 160 mg/dL 167-453 L Lab Interpretation (test code = Abnormal 45823-7) [facility] (NA, K, CL, CO2, GLUCOSE, BUN, CREATININE, CA)2020-04-05 13:30:00 Test Item Value Reference Range Interpretation Comments NA (test code = 155 mmol/L 135-145 H 8264804183) K (test code = 4.1 mmol/L 3.5-5 8798388031) CL (test code = 135 mmol/L 98-108 H 4699587791) CO2 TOTAL (test code = 14 mmol/L 23-31 L 4636506475) AGAP (test code = 2-16 8293339642) BUN (test code = 125 mg/dL 7-23 H 8478672547) GLUCOSE (test code = 162 mg/dL 70-110 H 2310942428) CREATININE (test code = 2.74 mg/dL 0.5-1.04 H 7872129217) CALCIUM (test code = 8.1 mg/dL 8.6-10.6 L 0954932217) eGFR Calculation mL/min/1.73m2 (Non-) (test code = 4211530326) eGFR Calculation mL/min/1.73m2 () (test code = 4523151484) JACI (test code = JACI) Association of [...] tests). Lab Interpretation Abnormal (test code = 82345-6) [facility]2020-04-05 13:25:00 Test Item Value Reference Range Interpretation Comments POCT GLU (test code = 1631241783) 172 mg/dL 70-110 H Lab Interpretation (test code = Abnormal 57138-5) [facility] WITHOUT [id number] 12:46:00 Test Item Value Reference Range Interpretation Comments WBC (test code = 6690-2) See_Comment H [A utomated message] The system J[employer] generated this result transmit shira reference range : 4.30 - 11.10 10*3/?L. The reference range was not used to interpret this result as normal/abnormal . RBC (test code = 789-8) See_Comment L [Au tomated message] The system [employer] generated this result transmit shira reference range [...] 777-3) See_Comment [Au tomated message] The system [employer] generated this result transmit shira reference range : 166 - 358 10*3/?L. The reference range was not used to interpret this result as normal/abnormal . MPV (test code = 12.1 fL 9.5-12.9 97124-0) RDW-CV (test code = 16.6 % 12-15.5 H 788-0) RDW-SD (test code = 51.9 fL 39-49.9 H 62401-7) NRBC x10^3 (test code = See_Comment [Au tomated message] 1224796274) The system [employer] generated this result transmit shira reference range : 10*3/?L. The reference range was not used to interpret this result as normal/abnormal . NRBC/100 WBC (test code See_Comment [Au tomated message] = 7997413589) The system [employer] generated this result transmit shira reference range : 0.0 - 10.0 /100 WBC s. The reference r louise was not used to interpret this result as normal/abnormal . IPF % (test code = 0906214314) Lab Interpretation (test Abnormal code = 82623-8) [facility] [place] PAN[facility] (37831) (ALB,T.PRO,BILI T,BU/BC,ALT,AST,ALK PHOS)2020-04-05 07:49:00 Test Item Value Reference Range Interpretation Comments TOTAL BILI (test code = 2595800648) 0.7 mg/dL 0.1-1.1 BILI UNCON (test code = 9182076715) 0.5 mg/dL 0.1-1.1 BILI CONJ (test code = 4496142714) 0.0 mg/dL 0-0.3 T PROTEIN (test code = 5606892358) 3.6 g/dL 6.3-8.2 L ALBUMIN (test code = 4749631650) 1.6 g/dL 3.5-5 L ALK PHOS (test code = 1117792533) 67 U/L 34-122 ALTv (test code = 1742-6) 46 U/L 5-35 H AST(SGOT) (test code = 8825115874) 44 U/L 13-40 H Lab Interpretation (test code = Abnormal 92090-3) [facility] METABOLIC PANEL (NA, K, CL, CO2, GLUCOSE, BUN, CREATININE, CA)2020-04-05 07:31:00 Test Item Value Reference Range Interpretation Comments NA (test code = 152 mmol/L 135-145 H 9935304960) K (test code = 4.0 mmol/L 3.5-5 1615924117) CL (test code = 134 mmol/L 98-108 H 2621352085) CO2 TOTAL (test code = 14 mmol/L 23-31 L 4108502836) AGAP (test code = 2-16 4803100917) BUN (test code = 126 mg/dL 7-23 H 3972278287) GLUCOSE (test code = 156 mg/dL 70-110 H 0693260230) CREATININE (test code = 2.74 mg/dL 0.5-1.04 H 6090531271) CALCIUM (test code = 8.2 mg/dL 8.6-10.6 L 4719274833) eGFR Calculation mL/min/1.73m2 (Non-) (test code = 2609974464) eGFR Calculation mL/min/1.73m2 () (test code = 3334774972) JACI (test code = JACI) Association of [...] tests). Lab Interpretation Abnormal (test code = 50914-0) [facility] AtlantaPROTHROMBIN TIME / [id number] 06:55:00 Test Item Value Reference Range Interpretation Comments PROTIME PATIENT (test See_Comment H [Auto mated message] code = 5964-2) The system [employer] generated this result transmitted ref erence range: 10.1 - 1 2.6 Seconds. The reference range was not used to int erpret this result as normal/abnormal . INR (test code = 6301-6) Nor mal INR <1.1; Warfarin Therap eutic range 2.0 to 3. 0 or 2.5 to 3.5, dep ending upon the indica tions. Lab Interpretation (test Abnormal code = 97311-6) [facility]2020-12-25 06:55:00 Test Item Value Reference Range Interpretation Comments Fibrinogen (test code = 4918673964) 178 mg/dL 167-453 Lab Interpretation (test code = Normal 55823-6) [facility] AtlantaCBC WITHOUT [id number] 06:52:00 Test Item Value Reference Range Interpretation Comments WBC (test code = 6690-2) See_Comment H [A utomated message] The system [employer] generated this result transmit shira reference range : 4.30 - 11.10 10*3/?L. The reference range was not used to interpret this result as normal/abnormal . RBC (test code = 789-8) See_Comment L [Au tomated message] The system [employer] generated this result transmit shira reference range [...] 777-3) See_Comment [Au tomated message] The system [employer] generated this result transmit shira reference range : 166 - 358 10*3/?L. The reference range was not used to interpret this result as normal/abnormal . MPV (test code = 12.4 fL 9.5-12.9 58431-9) RDW-CV (test code = 16.2 % 12-15.5 H 788-0) RDW-SD (test code = 51.6 fL 39-49.9 H 24184-2) NRBC x10^3 (test code = See_Comment [Au tomated message] 8131225537) The system [employer] generated this result transmit shira reference range : 10*3/?L. The reference range was not used to interpret this result as normal/abnormal . NRBC/100 WBC (test code See_Comment [Au tomated message] = 9046653723) The system [employer] generated this result transmit shira reference range : 0.0 - 10.0 /100 WBC s. The reference r louise was not used to interpret this result as normal/abnormal . IPF % (test code = 3068595742) Lab Interpretation (test Abnormal code = 66753-1) [facility])2020-04-05 02:24:00 Test Item Value Reference Range Interpretation Comments POCT GLU (test code = 0012786942) 202 mg/dL 70-110 H Lab Interpretation (test code = Abnormal 82578-7) [facility] AtlantaPrepare Packed RBC (in units), 1 Units 2020-04-05 01:41:43 Test Item Value Reference Range Interpretation Comments Cross Match Result Compatible (test code = 4409) ISBT Blood Type Code (test code = 188151) Unit Blood Type (test A Pos code = 4410) Unit Number (test [id number] code = 4411) Blood Expiration Date & Time (test code = 570499) Status Information Issued (test code = 4412) Product Red Blood Cells Identification (test code = 4413) Product Code (test [id number] Performed at [facility] code = 4414) [facility] - [facility] Blood [address] [place] [address]Deb[place] Free: [phone] A No. [id number] [facility] AtlantaHELICOBACTER PYLORI ANTIGEN, FECAL BY EIA 2020-04-05 01:22:00 Test Item Value Reference Range Interpretation Comments H. PYLO Ag (test Negative Negative Performed B y: ARUP code = 60202-1) Laboratories [address] [place] [id number] Director: Elida Jansen MD [facility])2020-04-04 23:57:00 Test Item Value Reference Range Interpretation Comments POCT GLU (test code = 9454007508) 189 mg/dL 70-110 H Lab Interpretation (test code = Abnormal 92821-5) [facility] WITHOUT [id number] 21:52:00 Test Item Value Reference Range Interpretation Comments WBC (test code = 6690-2) See_Comment H [A utomated message] The system [employer] generated this result transmit shira reference range : 4.30 - 11.10 10*3/?L. The reference range was not used to interpret this result as normal/abnormal . RBC (test code = 789-8) See_Comment L [Au tomated message] The system [employer] generated this result transmit shira reference range [...] 777-3) See_Comment [Au tomated message] The system [employer] generated this result transmit shira reference range : 166 - 358 10*3/?L. The reference range was not used to interpret this result as normal/abnormal . MPV (test code = 12.2 fL 9.5-12.9 46269-7) RDW-CV (test code = 17.6 % 12-15.5 H 788-0) RDW-SD (test code = 56.1 fL 39-49.9 H 38851-2) NRBC x10^3 (test code = See_Comment [Au tomated message] 5683806096) The system [employer] generated this result transmit shira reference range : 10*3/?L. The reference range was not used to interpret this result as normal/abnormal . NRBC/100 WBC (test code See_Comment [Au tomated message] = 0551565473) The system [employer] generated this result transmit shira reference range : 0.0 - 10.0 /100 WBC s. The reference r louise was not used to interpret this result as normal/abnormal . IPF % (test code = 1416287220) Lab Interpretation (test Abnormal code = 74369-2) [facility]2020-04-04 17:55:00 Test Item Value Reference Range Interpretation Comments POCT GLU (test code = 9540912953) 201 mg/dL 70-110 H Lab Interpretation (test code = Abnormal 78163-1) [facility] Atlanta[facility] Packed RBC (in units), 1 Units 2020-04-04 15:57:52 Test Item Value Reference Range Interpretation Comments Cross Match Result Compatible (test code = 4409) ISBT Blood Type Code (test code = 087728) Unit Blood Type (test A Pos code = 4410) Unit Number (test [id number] code = 4411) Blood Expiration Date & Time (test code = 141416) Status Information Issued (test code = 4412) Product Red Blood Cells Identification (test code = 4413) Product Code (test [id number] Performed at [facility] code = 4414) Laboratory Services - [facility] Blood [address] [address]Rwlz Free: [phone] A No. [id number] [facility] WITHOUT [id number] 15:25:00 Test Item Value Reference Range Interpretation Comments WBC (test code = 6690-2) See_Comment H [A utomated message] The system [employer] generated this result transmit shira reference range : 4.30 - 11.10 10*3/?L. The reference range was not used to interpret this result as normal/abnormal . RBC (test code = 789-8) See_Comment L [Au tomated message] The system [employer] generated this result transmit shira reference range [...] 777-3) See_Comment [Au tomated message] The system [employer] generated this result transmit shira reference range : 166 - 358 10*3/?L. The reference range was not used to interpret this result as normal/abnormal . MPV (test code = 12.0 fL 9.5-12.9 79812-3) RDW-CV (test code = 17.9 % 12-15.5 H 788-0) RDW-SD (test code = 53.8 fL 39-49.9 H 79379-1) NRBC x10^3 (test code = See_Comment [Au tomated message] 7668641469) The system [employer] generated this result transmit shira reference range : 10*3/?L. The reference range was not used to interpret this result as normal/abnormal . NRBC/100 WBC (test code See_Comment [Au tomated message] = 9476861421) The system [facility] generated this result transmit shira reference range : 0.0 - 10.0 /100 WBC s. The reference r louise was not used to interpret this result as normal/abnormal . IPF % (test code = 8840922876) Lab Interpretation (test Abnormal code = 50670-6) [facility]2020-04-04 15:02:00 Test Item Value Reference Range Interpretation Comments POCT GLU (test code = 8030262529) 220 mg/dL 70-110 H Lab Interpretation (test code = Abnormal 77902-9) [facility] AtlantaURINE [id number] 14:27:00 Test Item Value Reference Range Interpretation Comments URINE CULTURE (test < 10,000 CFU/mL mixed code = 630-4) aerobic organisms - suggests endogenous microbial contamination [facility] WITHOUT [id number] 08:33:00 Test Item Value Reference Range Interpretation Comments WBC (test code = 6690-2) See_Comment H [A utomated message] The system [employer] generated this result transmit shira reference range : 4.30 - 11.10 10*3/?L. The reference range was not used to interpret this result as normal/abnormal . RBC (test code = 789-8) See_Comment L [Au tomated message] The system [employer] generated this result transmit shira reference range [...] 777-3) See_Comment [Au tomated message] The system [employer] generated this result transmit shira reference range : 166 - 358 10*3/?L. The reference range was not used to interpret this result as normal/abnormal . MPV (test code = 12.1 fL 9.5-12.9 62456-3) RDW-CV (test code = 17.2 % 12-15.5 H 788-0) RDW-SD (test code = 52.4 fL 39-49.9 H 00880-6) NRBC x10^3 (test code = See_Comment [Au tomated message] 6118157530) The system [employer] generated this result transmit shira reference range : 10*3/?L. The reference range was not used to interpret this result as normal/abnormal . NRBC/100 WBC (test code See_Comment [Au tomated message] = 0445513071) The system [employer] generated this result transmit shira reference range : 0.0 - 10.0 /100 WBC s. The reference r louise was not used to interpret this result as normal/abnormal . IPF % (test code = 8550535849) Lab Interpretation (test Abnormal code = 71576-7) [facility] (NA, K, CL, CO2, GLUCOSE, BUN, CREATININE, CA)2020-04-04 07:59:00 Test Item Value Reference Range Interpretation Comments NA (test code = 146 mmol/L 135-145 H 1732630216) K (test code = 3.5 mmol/L 3.5-5 2147697127) CL (test code = 125 mmol/L 98-108 H 1282389527) CO2 TOTAL (test code = 14 mmol/L 23-31 L 4771097974) AGAP (test code = 2-16 4197946097) BUN (test code = 117 mg/dL 7-23 H 2364754265) GLUCOSE (test code = 164 mg/dL 70-110 H 0766314062) CREATININE (test code = 2.45 mg/dL 0.5-1.04 H 9918941235) CALCIUM (test code = 8.0 mg/dL 8.6-10.6 L 2864165231) eGFR Calculation mL/min/1.73m2 (Non-) (test code = 3514883683) eGFR Calculation mL/min/1.73m2 () (test code = 0383462821) JACI (test code = JACI) Association of [...] tests). Lab Interpretation Abnormal (test code = 75726-6) [facility] AtlantaPROTHROMBIN TIME / [id number] 07:15:00 Test Item Value Reference Range Interpretation Comments PROTIME PATIENT (test See_Comment H [Auto mated message] code = 5964-2) The system [employer] generated this result transmitted ref erence range: 10.1 - 1 2.6 Seconds. The reference range was not used to int erpret this result as normal/abnormal . INR (test code = 6301-6) Nor mal INR <1.1; Warfarin Therap eutic range 2.0 to 3. 0 or 2.5 to 3.5, dep ending upon the indica tions. Lab Interpretation (test Abnormal code = 24163-7) [facility]EN2020-12-24 07:15:00 Test Item Value Reference Range Interpretation Comments Fibrinogen (test code = 4775073856) 160 mg/dL 167-453 L Lab Interpretation (test code = Abnormal 48111-3) [facility]2020-04-04 02:20:00 Test Item Value Reference Range Interpretation Comments POCT GLU (test code = 5006383786) 215 mg/dL 70-110 H Lab Interpretation (test code = Abnormal 14829-7) [facility] WITHOUT [id number] 23:13:00 Test Item Value Reference Range Interpretation Comments WBC (test code = 6690-2) See_Comment H [A utomated message] The system [employer] generated this result transmit shira reference range : 4.30 - 11.10 10*3/?L. The reference range was not used to interpret this result as normal/abnormal . RBC (test code = 789-8) See_Comment L [Au tomated message] The system [employer] generated this result transmit shira reference range [...] 777-3) See_Comment [Au tomated message] The system [employer] generated this result transmit shira reference range : 166 - 358 10*3/?L. The reference range was not used to interpret this result as normal/abnormal . MPV (test code = 11.7 fL 9.5-12.9 11228-7) RDW-CV (test code = 16.0 % 12-15.5 H 788-0) RDW-SD (test code = 49.1 fL 39-49.9 35974-0) NRBC x10^3 (test code = See_Comment [Au tomated message] 5832615865) The system [employer] generated this result transmit shira reference range : 10*3/?L. The reference range was not used to interpret this result as normal/abnormal . NRBC/100 WBC (test code See_Comment [Au tomated message] = 1139318898) The system [employer] generated this result transmit shira reference range : 0.0 - 10.0 /100 WBC s. The reference r louise was not used to interpret this result as normal/abnormal . IPF % (test code = 6532216465) Lab Interpretation (test Abnormal code = 70242-8) [facility] Packed RBC (in units), 1 Units 2020-04-03 20:38:48 Test Item Value Reference Range Interpretation Comments Cross Match Result Compatible (test code = 4409) ISBT Blood Type Code (test code = 815551) Unit Blood Type (test A Pos code = 4410) Unit Number (test [id number] code = 4411) Blood Expiration Date & Time (test code = 471628) Status Information Issued (test code = 4412) Product Red Blood Cells Identification (test code = 4413) Product Code (test [id number] Performed at [facility] code = 4414) Laboratory Services - [facility] Blood [address] [address]Ecty Free: [phone] A No. [id number] [facility] WITHOUT [id number] 20:37:00 Test Item Value Reference Range Interpretation Comments WBC (test code = 6690-2) See_Comment H [A utomated message] The system [employer] generated this result transmit shira reference range : 4.30 - 11.10 10*3/?L. The reference range was not used to interpret this result as normal/abnormal . RBC (test code = 789-8) See_Comment L [Au tomated message] The system [employer] generated this result transmit shira reference range [...] 777-3) See_Comment [Au tomated message] The system [employer] generated this result transmit shira reference range : 166 - 358 10*3/?L. The reference range was not used to interpret this result as normal/abnormal . MPV (test code = 11.6 fL 9.5-12.9 28023-4) RDW-CV (test code = 16.3 % 12-15.5 H 788-0) RDW-SD (test code = 51.8 fL 39-49.9 H 14285-6) NRBC x10^3 (test code = See_Comment [Au tomated message] 4166369456) The system [employer] generated this result transmit shira reference range : 10*3/?L. The reference range was not used to interpret this result as normal/abnormal . NRBC/100 WBC (test code See_Comment [Au tomated message] = 9532648929) The system [facility] generated this result transmit shira reference range : 0.0 - 10.0 /100 WBC s. The reference r louise was not used to interpret this result as normal/abnormal . IPF % (test code = 5100673784) Lab Interpretation (test Abnormal code = 10062-1) [facility] WITH [id number] 19:20:00 Test Item Value Reference Range Interpretation Comments WBC (test code = See_Comment H [Automated 2481-2) message] The system which generated this result transmit shira reference range : 4.30 - 11.10 10*3/?L. The reference range was not used to interpret this result as normal/abnormal . RBC (test code = See_Comment L [Automated 899-8) message] The system which generated this result [...] (test code = 50.7 fL 39-49.9 H 46730-5) RDW-CV (test code = 16.0 % 12-15.5 H 788-0) PLT (test code = See_Comment [Automated 777-3) message] The system which generated this result transmit shira reference range : 166 - 358 10*3/ ?L. The reference range was not u sed to interpret th is result as normal/abnormal . MPV (test code = 11.6 fL 9.5-12.9 08895-8) NRBC/100 WBC (test See_Comment [Automat ed code = 1346535316) message] The system which generated this result transmit shira reference range : 0.0 - 10.0 /100 WBCs. The reference range was not used to interpret this result as normal/abnormal . NRBC x10^3 (test code See_Comment [Auto mated = 9924672489) message] The system which generated this result transmit shira reference range : 10*3/?L. The reference range was not used to interpret this result as normal/abnormal . SEG % (test code = 46 % 33-76 34193-9) BAND % (test code = 33 % 0-1 H 20829-8) META % (test code = 8 % See_Comment H [Automa shira 87397-6) message] The system which generated this result transmit shira reference range : <=0. The refere nce range was not u sed to interpret th is result as normal/abnormal . MYELO % (test code = 4 % See_Comment H [Autom ated 03943-4) message] The system which generated this result transmit shira reference range : <=0. The refere nce range was not u sed to interpret th is result as normal/abnormal . LYMPH % (test code = 4 % 14-54 L 54031-8) MONO % (test code = 5 % 0-4 H 97303-4) ANC (test code = 42.66 10*3/uL 1.88-7.09 H 4705612510) Lab Interpretation Abnormal (test code = 94196-8) [facility] CONSULT [id number] 18:33:00 LEUKOCYTOSIS WITH LEUKOERYTHROBLASTOSIS, ABSOLUTE TOXIC NEUTROPHILIA, REACTIVE LYMPHOCYTES AND ABSOLUTE REACTIVE MONOCYTOSIS SUGGESTIVE OF SYSTEMIC INFECTION/INFLAMMATION. EXCLUDE SEPSIS. RARE HYPERSEGMENTED NEUTROPHILS AND RARE CIRCULATING BLASTS NOTED. ? NORMOCYTIC NORMOCHROMIC ANEMIA WITH ANISOPOIK ILOCYTOSIS INCLUDING SHER CELLS, POLYCHROMASIA, OVALOCYTES AND RARE SPHEROCYTES, SUGGESTIVE OF ACUTEBLOOD LOSS/HEMOLYSIS. EXCLUDE EARLY IRON DEFICIENCY. ? PLATELETS ARE ADEQUATE IN NUMBER AND MORPHOLOGY.[facility]2020-04-03 18:05:00 Test Item Value Reference Range Interpretation Comments POCT GLU (test code = 6299220137) 225 mg/dL 70-110 H Lab Interpretation (test code = Abnormal 54086-5) [facility] AtlantaMRSA / MSSA Screen by [id number] 16:53:00 Test Item Value Reference Range Interpretation Comments MSSA Screen by PCR Narsalud (test code Negative Negative = 19554-2) MRSA/MSSA Positive? (test code = No No [id number]) Lab Interpretation (test code = Normal 11538-0) [facility] HEAD WO [id number] 14:23:02 No interval acute abnormality.EXAM: CT HEAD [...] and skull base are unremarkable.IMPRESSIONNo interval acute abnormality.[facility]2020-04-03 14:20:00 Test Item Value Reference Range Interpretation Comments POCT GLU (test code = 1812306579) 210 mg/dL 70-110 H Lab Interpretation (test code = Abnormal 91445-3) [facility] WITH [id number] 11:46:00 Test Item Value Reference Range Interpretation [...] RDW-SD (test code = 48.6 fL 39-49.9 99910-6) RDW-CV (test code = 15.5 % 12-15.5 788-0) PLT (test code = See_Comment [Automated 777-3) message] The system which generated this result transmit shira reference range : 166 - 358 10*3/ ?L. The reference range was not u sed to interpret th is result as normal/abnormal . MPV (test code = 11.7 fL 9.5-12.9 43242-4) NRBC/100 WBC (test See_Comment [Automat ed code = 0504529175) message] The system which generated this result transmit shira reference range : 0.0 - 10.0 /100 WBCs. The reference range was not used to interpret this result as normal/abnormal . NRBC x10^3 (test code See_Comment [Auto mated = 3303177268) message] The system which generated this result transmit shira reference range : 10*3/?L. The reference range was not used to interpret this result as normal/abnormal . GRAN MAT (NEUT) % 59.6 % (test code = 770-8) IMM GRAN % (test code 22.60 % = 3077116976) LYMPH % (test code = 10.0 % 736-9) MONO % (test code = 7.7 % 5905-5) EOS % (test code = 0.0 % 713-8) BASO % (test code = 0.1 % 706-2) GRAN MAT x10^3(ANC) 33.17 10*3/uL 1.88-7.09 H (test code = 9994170988) IMM GRAN x10^3 (test 12.62 10*3/uL 0-0.06 H code = 6861449676) LYMPH x10^3 (test code 5.60 10*3/uL 1.32-3.29 H = 731-0) MONO x10^3 (test code 4.30 10*3/uL 0.33-0.92 H = 742-7) EOS x10^3 (test code = <0.03 0.03-0.39 L 711-2) BASO x10^3 (test code 0.08 10*3/uL 0.01-0.07 H = 704-7) BANDS (test code = Increased A 1162238024) TOXIC CHANGES (test Present A code = 803-7) Lab Interpretation Abnormal (test code = 47846-2) [facility] / [id number] 11:18:00 Test Item Value Reference Range Interpretation Comments PROTIME PATIENT (test See_Comment H [Auto mated message] code = 5964-2) The system [employer] generated this result transmitted ref erence range: 10.1 - 1 2.6 Seconds. The reference range was not used to int erpret this result as normal/abnormal . INR (test code = 6301-6) Nor mal INR <1.1; Warfarin Therap eutic range 2.0 to 3. 0 or 2.5 to 3.5, dep ending upon the indica tions. Lab Interpretation (test Abnormal code = 53926-5) [facility]2020-[facility]-23 11:18:00 Test Item Value Reference Range Interpretation Comments Fibrinogen (test code = 3830626262) 200 mg/dL 167-453 Lab Interpretation (test code = Normal 22704-2) [facility]2020-12-23 07:43:00 Test Item Value Reference Range Interpretation Comments APPEARANCE (test code = Cloudy Clear A 1898349670) COLOR (test code = Yellow Yellow 2005774280) PH (test code = 4.8-8.0 7687718049) SP GRAVITY (test code = 1.003-1.030 0859452290) GLU U QUAL (test code = Normal Normal 2838080718) BLOOD (test code = Negative Negative 5914679205) KETONES (test code = Negative Negative 6224195808) PROTEIN (test code = Negative Negative 2887-8) UROBILIN (test code = Normal Normal 3113485098) BILIRUBIN (test code = Negative Negative 0428508001) NITRITE (test code = Negative Negative 6512873190) LEUK TRENA (test code = 25/uL Negative A 1672701851) RBC/HPF (test code = See_Comment H [Autom ated message] 7027511537) The system [employer] generated this result transmitted ref erence range: 0 - 3 HP F. The reference range was not used to int erpret this result as normal/abnormal . WBC/HPF (test code = See_Comment [Autom ated message] 5638202149) The system [employer] generated this result transmitted ref erence range: 0 - 5 HP F. The reference range was not used to int erpret this result as normal/abnormal . BACTERIA (test code = Negative Negative 2695274915) SQ EPITH (test code = See_Comment [Auto mated message] 4917474377) The system [employer] generated this result transmitted ref erence range: <=2 HPF. The reference range was not used to int erpret this result as normal/abnormal . Lab Interpretation (test Abnormal code = 85884-9) [facility] METABOLIC PANEL (NA, K, CL, CO2, GLUCOSE, BUN, CREATININE, CA)2020-04-03 07:35:00 Test Item Value Reference Range Interpretation Comments NA (test code = 141 mmol/L 135-145 3724896156) K (test code = 3.8 mmol/L 3.5-5 9578412465) CL (test code = 120 mmol/L 98-108 H 2742676409) CO2 TOTAL (test code = 16 mmol/L 23-31 L 8860709073) AGAP (test code = 2-16 0950507233) BUN (test code = 93 mg/dL 7-23 H 4603341040) GLUCOSE (test code = 161 mg/dL 70-110 H 9675235613) CREATININE (test code = 1.75 mg/dL 0.5-1.04 H 0526595019) CALCIUM (test code = 7.9 mg/dL 8.6-10.6 L 8784336015) eGFR Calculation mL/min/1.73m2 (Non-) (test code = 5478907950) eGFR Calculation mL/min/1.73m2 () (test code = 9940863029) JACI (test code = JACI) Association of [...] tests). Lab Interpretation Abnormal (test code = 13660-9) [facility] [place] (63919) (ALB,T.PRO,BILI T,BU/BC,ALT,AST,ALK PHOS)2020-04-03 07:35:00 Test Item Value Reference Range Interpretation Comments TOTAL BILI (test code = 7806257776) 0.7 mg/dL 0.1-1.1 BILI UNCON (test code = 5442013135) 0.5 mg/dL 0.1-1.1 BILI CONJ (test code = 7137048518) 0.0 mg/dL 0-0.3 T PROTEIN (test code = 2161343588) 4.7 g/dL 6.3-8.2 L ALBUMIN (test code = 7029035783) 2.0 g/dL 3.5-5 L ALK PHOS (test code = 2543330779) 109 U/L 34-122 ALTv (test code = 1742-6) 41 U/L 5-35 H AST(SGOT) (test code = 1750380447) 72 U/L 13-40 H Lab Interpretation (test code = Abnormal 12001-7) [facility] 20 + LACTIC [id number] 06:09:00 Test Item Value Reference Range Interpretation Comments PH (test code = 2) 7.35-7.45 PCO2 (test code = See_Comment L [Automat ed 3560144698) message] The sy stem which generated this result transmitted reference range : 35 - 45 mmHg. The reference range was not used to interpret this result as normal/abnormal . PO2 (test code = See_Comment L [Automated 1420815390) message] The sy stem which generated this result transmitted reference range : 80 - 100 mmHg. The reference range was not used to interpret this result as normal/abnormal . HCO3 (test code = See_Comment L [Automate d 3784885381) message] The sy stem which generated this result transmitted reference range : 22 - 26 mEq/L. The reference range was not used to interpret this result as normal/abnormal . BE (test code = See_Comment L [Automated 2949256751) message] The sy stem which generated this result transmitted reference range : -3.0 - 3.0 mEq/ L. The reference r louise was not used to interpret this result as normal/abnormal . THB (test code = 9.6 g/dL 12-16 L 4092187703) %O2HB (test code = 94.1 % 94-99 4764979883) %COHB ART (test code = 0.5 % 0-1.5 8943690820) %METHB ART (test code = 0.2 % 0.4-1.5 L 4848857564) VOL%O2 ART (test code = 12.8 % 15-23 L 0502111958) NA (test code = 141 mmol/L 135-145 2517196169) K+ (test code = 3.6 mmol/L 3.5-5 0446960826) AC CA IONZ (test code = 4.90 mg/dL 4.5-5.3 4404983175) GLUCOSE (test code = 176 mg/dL 70-110 H 1616105368) LACTIC ACID (test code 0.89 mmol/L = 9315628015) Lab Interpretation Abnormal (test code = 40697-0) [facility] AtlantaXR CHEST 1 [id number] 04:50:28 No acute intrathoracic abnormality. Preliminary Report [...] effusion orpneumothorax.No acute osseous abnormality is noted. [facility], Radiant ResultsInft User - 04/02/2020 10:51 PM [...] reviewed this study and agree withthe above report.[facility] WITH [id number] 04:06:00 Test Item Value Reference Range Interpretation Comments WBC (test code = See_Comment H [Automated 90-2) message] The system which generated this result [...] RDW-SD (test code = 47.2 fL 39-49.9 61230-9) RDW-CV (test code = 15.0 % 12-15.5 788-0) PLT (test code = See_Comment [Automated 777-3) message] The system which generated this result transmit shira reference range : 166 - 358 10*3/ ?L. The reference range was not u sed to interpret th is result as normal/abnormal . MPV (test code = 11.3 fL 9.5-12.9 46924-9) NRBC/100 WBC (test See_Comment [Automat ed code = 2420772650) message] The system which generated this result transmit shira reference range : 0.0 - 10.0 /100 WBCs. The reference range was not used to interpret this result as normal/abnormal . NRBC x10^3 (test code See_Comment [Auto mated = 9930655844) message] The system which generated this result transmit shira reference range : 10*3/?L. The reference range was not used to interpret this result as normal/abnormal . GRAN MAT (NEUT) % 60.2 % (test code = 770-8) IMM GRAN % (test code 23.50 % = 7884206772) LYMPH % (test code = 9.5 % 736-9) MONO % (test code = 6.7 % 5905-5) EOS % (test code = 0.0 % 713-8) BASO % (test code = 0.1 % 706-2) GRAN MAT x10^3(ANC) 31.12 10*3/uL 1.88-7.09 H (test code = 3946085631) IMM GRAN x10^3 (test 12.13 10*3/uL 0-0.06 H code = 2160292893) LYMPH x10^3 (test code 4.89 10*3/uL 1.32-3.29 H = 731-0) MONO x10^3 (test code 3.47 10*3/uL 0.33-0.92 H = 742-7) EOS x10^3 (test code = <0.03 0.03-0.39 L 711-2) BASO x10^3 (test code 0.07 10*3/uL 0.01-0.07 = 704-7) BANDS (test code = Increased A 8132325401) Lab Interpretation Abnormal (test code = 00882-6) [facility] GLUCOSE (AUTOMATED)2020-04-03 03:24:00 Test Item Value Reference Range Interpretation Comments POCT GLU (test code = 8250378639) 211 mg/dL 70-110 H Lab Interpretation (test code = Abnormal 93079-4) [facility]2020-04-03 01:28:00 Test Item Value Reference Range Interpretation Comments POCT GLU (test code = 2655756126) 217 mg/dL 70-110 H Lab Interpretation (test code = Abnormal 37492-3) [facility] AtlantaCBC WITHOUT [id number] 21:56:00 Test Item Value Reference Range Interpretation Comments WBC (test code = 6690-2) See_Comment H [A utomated message] The system [employer] generated this result transmit shira reference range : 4.30 - 11.10 10*3/?L. The reference range was not used to interpret this result as normal/abnormal . RBC (test code = 789-8) See_Comment L [Au tomated message] The system [employer] generated this result transmit shira reference range [...] See_Comment H [Au tomated message] The system [employer] generated this result transmit shira reference range : 166 - 358 10*3/?L. The reference range was not used to interpret this result as normal/abnormal . MPV (test code = 11.2 fL 9.5-12.9 10769-9) RDW-CV (test code = 15.2 % 12-15.5 788-0) RDW-SD (test code = 49.1 fL 39-49.9 69424-1) NRBC x10^3 (test code = See_Comment [Au tomated message] 9049001106) The system [employer] generated this result transmit shira reference range : 10*3/?L. The reference range was not used to interpret this result as normal/abnormal . NRBC/100 WBC (test code See_Comment [Au tomated message] = 1739933580) The system [employer] generated this result transmit shira reference range : 0.0 - 10.0 /100 WBC s. The reference r louise was not used to interpret this result as normal/abnormal . IPF % (test code = 9269926342) Lab Interpretation (test Abnormal code = 62834-5) [facility]IB[facility]EN2020-12-22 20:43:00 Test Item Value Reference Range Interpretation Comments Fibrinogen (test code = 4751644051) 188 mg/dL 167-453 Lab Interpretation (test code = Normal 06126-0) [facility] AtlantaPrepare Packed RBC (in units), 2 Units 2020-04-02 20:27:33 Test Item Value Reference Range Interpretation Comments Cross Match Result Compatible (test code = 4409) ISBT Blood Type Code (test code = 077501) Unit Blood Type (test A Pos code = 4410) Unit Number (test [id number] code = 4411) Blood Expiration Date & Time (test code = 165836) Status Information Issued (test code = 4412) Product Red Blood Cells Identification (test code = 4413) Product Code (test [id number] Performed at [facility] code = 4414) Laboratory Services - [facility] Blood [address] [place] [address]Bpgd Free: [phone] A No. [id number] [facility] AtlantaCB WITHOUT [id number] 20:21:00 Test Item Value Reference Range Interpretation Comments WBC (test code = 6690-2) See_Comment H [A utomated message] The system [employer] generated this result transmit shira reference range : 4.30 - 11.10 10*3/?L. The reference range was not used to interpret this result as normal/abnormal . RBC (test code = 789-8) See_Comment L [Au tomated message] The system [employer] generated this result transmit shira reference range [...] See_Comment H [Au tomated message] The system [facility] generated this result transmit shira reference range : 166 - 358 10*3/?L. The reference range was not used to interpret this result as normal/abnormal . MPV (test code = 11.3 fL 9.5-12.9 08383-0) RDW-CV (test code = 16.0 % 12-15.5 H 788-0) RDW-SD (test code = 52.8 fL 39-49.9 H 37846-3) NRBC x10^3 (test code = See_Comment [Au tomated message] 2615341490) The system [facility] generated this result transmit shira reference range : 10*3/?L. The reference range was not used to interpret this result as normal/abnormal . NRBC/100 WBC (test code See_Comment [Au tomated message] = 7881204769) The system [facility] generated this result transmit shira reference range : 0.0 - 10.0 /100 WBC s. The reference r louise was not used to interpret this result as normal/abnormal . IPF % (test code = 6124264693) Lab Interpretation (test Abnormal code = 91262-3) [facility]OVID-[facility] (ID NOW RAPID TESTING)2020-04-02 18:58:00 Test Item Value Reference Range Interpretation Comments SARS-CoV-2 Rapid ID NOW Not Detected Not Detected (test code = 73963-0) JACI (test code = JACI) ID NOW COVID-19 Assay is an isothermal nucleic acid amplification test intended for the qualitative detection of nucleic acid from SARS-CoV-2 viral RNA in nasopharyngeal (TUB ATTENDANT) specimens. It is used under Emergency Use [...] indicated. Lab Interpretation Normal (test code = 29466-4) [facility] GLUCOSE (AUTOMATED)2020-04-02 18:08:00 Test Item Value Reference Range Interpretation Comments POCT GLU (test code = 9712998689) 234 mg/dL 70-110 H Lab Interpretation (test code = Abnormal 72576-3) [facility] AtlantaINDIRECT ANTIGLOBULIN [id number] 17:00:04 Test Item Value Reference Range Interpretation Comments IAT (test code = Negative Performed a t [facility] 1185) Laboratory Serv [facility] Blood [address] [place], [place] [address]Pabw Free: [phone] A No. [id number] [facility] AtlantaABORH INVESTIGATION [id number] 16:47:59 Test Item Value Reference Range Interpretation Comments ABO & RH (test code A Positive Performe d at [facility] = 20) Laboratory [facility] Blood Bank3 [address] [facility] s [address]Wbso Free: [phone] A No. [id number] [facility] AtlantaBLOOD CULTURE [id number] 16:01:00 Test Item Value Reference Range Interpretation Comments Blood Culture-Aerobic No organisms No growth Previo us (test code = 69411-4) isolated prelim inary verified result was Culture In Progress on 03/28/2020 at 1301 CSTPreviou s preliminary verified result was No growth a t 24 hours on 03/29/2020 at 1001 CSTPreviou s preliminary verified result was No growth a t 48 hours on 03/30/2020 at 1001 CSTPreviou s preliminary verified result was No growth a t 72 hours on 03/31/2020 at 1001 [employer] Blood No organisms No growth Previous Culture-Anaerobic isolated preliminar y (test code = 40660-0) verifi ed result was Culture In Progress on 03/28/2020 at 1301 CSTPreviou s preliminary verified result was No growth a t 24 hours on 03/29/2020 at 1001 CSTPreviou s preliminary verified result was No growth a t 48 hours on 03/30/2020 at 1001 CSTPreviou s preliminary verified result was No growth a t 72 hours on 03/31/2020 at 1001 [employer] Lab Interpretation Normal (test code = 35183-8) [facility] WITH [id number] 15:54:00 Test Item Value Reference Range Interpretation [...] (test code = 55.6 fL 39-49.9 H 83164-6) RDW-CV (test code = 17.3 % 12-15.5 H 788-0) PLT (test code = See_Comment H [Automated 777-3) message] The system which generated this result transmit shira reference range : 166 - 358 10*3/ ?L. The reference range was not u sed to interpret th is result as normal/abnormal . MPV (test code = 11.5 fL 9.5-12.9 10380-3) NRBC/100 WBC (test See_Comment [Automat ed code = 0760081325) message] The system which generated this result transmit shira reference range : 0.0 - 10.0 /100 WBCs. The reference range was not used to interpret this result as normal/abnormal . NRBC x10^3 (test code See_Comment [Auto mated = 7377440792) message] The system which generated this result transmit shira reference range : 10*3/?L. The reference range was not used to interpret this result as normal/abnormal . SEG % (test code = 55 % 33-76 98506-7) BAND % (test code = 16 % 0-1 H 81697-2) META % (test code = 8 % See_Comment H [Automa shira 94455-2) message] The system which generated this result transmit shira reference range : <=0. The refere nce range was not u sed to interpret th is result as normal/abnormal . MYELO % (test code = 5 % See_Comment H [Autom ated 77545-1) message] The system which generated this result transmit shira reference range : <=0. The refere nce range was not u sed to interpret th is result as normal/abnormal . LYMPH % (test code = 10 % 14-54 L 50496-1) MONO % (test code = 6 % 0-4 H 77451-7) ANC (test code = 32.85 10*3/uL 1.88-7.09 H 4388696073) Lab Interpretation Abnormal (test code = 00471-8) [facility] AtlantaCLOSTRIDIUM DIFFICILE [id number] 15:27:00 Test Item Value Reference Range Interpretation Comments Clostridioides (Clostridium) Negative Negative difficile (test code = 86549-7) Lab Interpretation (test code = Normal 06786-4) [facility] AtlantaFERRITIN [id number] 14:35:00 Test Item Value Reference Range Interpretation Comments FERRITIN (test code = 31.7 ng/mL 6398299664) JACI (test code = JACI) Biotin has been reported to cause a negative bias, interpret results relative to patient's use of biotin. Lab Interpretation (test Normal code = 34736-7) [facility] AtlantaIRON [id number] 14:08:00 Test Item Value Reference Range Interpretation Comments IRON (test code = 2053849785) 43 ug/dL 50-160 L TIBC (test code = 1680049655) 243 ug/dL 250-410 L % FE SAT (test code = 1375908124) 18 % 20-50 L Lab Interpretation (test code = Abnormal 06769-5) [facility] METABOLIC PANEL (NA, K, CL, CO2, GLUCOSE, BUN, CREATININE, CA)2020-04-02 13:20:00 Test Item Value Reference Range Interpretation Comments NA (test code = 139 mmol/L 135-145 8631508291) K (test code = 3.8 mmol/L 3.5-5 0594890437) CL (test code = 116 mmol/L 98-108 H 8019174291) CO2 TOTAL (test code = 19 mmol/L 23-31 L 1260909791) AGAP (test code = 2-16 2311080177) BUN (test code = 87 mg/dL 7-23 H 2757433877) GLUCOSE (test code = 195 mg/dL 70-110 H 1924652385) CREATININE (test code = 1.45 mg/dL 0.5-1.04 H 4257808524) CALCIUM (test code = 8.1 mg/dL 8.6-10.6 L 8843676984) eGFR Calculation mL/min/1.73m2 (Non-) (test code = 6175552695) eGFR Calculation mL/min/1.73m2 () (test code = 6983806226) JACI (test code = JACI) Association of [...] tests). Lab Interpretation Abnormal (test code = 06657-7) [facility] GLUCOSE (AUTOMATED)2020-04-02 03:06:00 Test Item Value Reference Range Interpretation Comments POCT GLU (test code = 6923844760) 174 mg/dL 70-110 H Lab Interpretation (test code = Abnormal 89320-3) [facility] GLUCOSE (AUTOMATED)2020-04-01 23:26:00 Test Item Value Reference Range Interpretation Comments POCT GLU (test code = 5822140758) 183 mg/dL 70-110 H Lab Interpretation (test code = Abnormal 54029-4) [facility] GLUCOSE (AUTOMATED)2020-04-01 18:38:00 Test Item Value Reference Range Interpretation Comments POCT GLU (test code = 1179276992) 192 mg/dL 70-110 H Lab Interpretation (test code = Abnormal 63118-0) [facility] GLUCOSE (AUTOMATED)2020-04-01 14:20:00 Test Item Value Reference Range Interpretation Comments POCT GLU (test code = 9832357079) 126 mg/dL 70-110 H Lab Interpretation (test code = Abnormal 23743-4) [facility] WITH [id number] 12:36:00 Test Item Value Reference Range Interpretation Comments WBC (test code = See_Comment H [Automated 2390-2) message] The system which generated this result [...] (test code = 55.1 fL 39-49.9 H 49458-0) RDW-CV (test code = 17.2 % 12-15.5 H 788-0) PLT (test code = See_Comment H [Automated 777-3) message] The system which generated this result transmitted reference range : 166 - 358 10*3/?L. The reference range was not used to interpret this result as normal/abnormal . MPV (test code = 10.6 fL 9.5-12.9 14261-7) NRBC/100 WBC (test See_Comment [Automat ed code = 7266495504) message] The system which generated this result transmitted reference range : 0.0 - 10.0 /100 WBCs. The reference range was not used to interpret this result as normal/abnormal . NRBC x10^3 (test code See_Comment [Auto mated = 4657778199) message] The system which generated this result transmitted reference range : 10*3/?L. The reference range was not used to interpret this result as normal/abnormal . GRAN MAT (NEUT) % 73.8 % (test code = 770-8) IMM GRAN % (test code 11.20 % = 7833492356) LYMPH % (test code = 8.6 % 736-9) MONO % (test code = 5.5 % 5905-5) EOS % (test code = 0.8 % 713-8) BASO % (test code = 0.1 % 706-2) GRAN MAT x10^3(ANC) 30.46 10*3/uL 1.88-7.09 H (test code = 1149797615) IMM GRAN x10^3 (test 4.62 10*3/uL 0-0.06 H code = 2663777531) LYMPH x10^3 (test 3.53 10*3/uL 1.32-3.29 H code = 731-0) MONO x10^3 (test code 2.29 10*3/uL 0.33-0.92 H = 742-7) EOS x10^3 (test code 0.35 10*3/uL 0.03-0.39 = 711-2) BASO x10^3 (test code 0.03 10*3/uL 0.01-0.07 = 704-7) BANDS (test code = MARKED INCREASED A 8107974985) Lab Interpretation Abnormal (test code = 09162-9) [facility] METABOLIC PANEL (NA, K, CL, CO2, GLUCOSE, BUN, CREATININE, CA)2020-04-01 12:11:00 Test Item Value Reference Range Interpretation Comments NA (test code = 139 mmol/L 135-145 0273125333) K (test code = 3.5 mmol/L 3.5-5 3037136211) CL (test code = 113 mmol/L 98-108 H 1227152937) CO2 TOTAL (test code = 22 mmol/L 23-31 L 9552245906) AGAP (test code = 2-16 3436770416) BUN (test code = 61 mg/dL 7-23 H 6887304750) GLUCOSE (test code = 109 mg/dL 70-110 2007882260) CREATININE (test code = 1.57 mg/dL 0.5-1.04 H 0212213590) CALCIUM (test code = 8.6 mg/dL 8.6-10.6 7551472297) eGFR Calculation mL/min/1.73m2 (Non-) (test code = 3172917613) eGFR Calculation mL/min/1.73m2 () (test code = 1978355796) JACI (test code = JACI) Association of [...] tests). Lab Interpretation Abnormal (test code = 28153-4) [facility] ABDOMEN [id number] 05:23:06 Gallbladder surgically absent. Otherwise normal exam. Preliminary Report Dictated by Resident: Chris Lynn MD., have reviewed this study and agree with the abovereport.EXAM: US ABDOMEN COMPLETE HISTORY: 80 years-old Female with possible intra-abdominal infection . TECHNIQUE: Complete abdominal ultrasound was performed. Main portal veinwas evaluated with color Doppler imaging. [employer] images wereobtained for the record. COMPARISON: None [...] The mid abdomenaorta measures1.6 cm in diameter. [facility], Radiant Results Inft User - 03/31/2020 11:24 PM CSTEXAM: US ABDOMEN COMPLETEHISTORY: 80 years-old Female with possible intra-abdominal infection .TECHNIQUE: Complete abdominal ultrasound was performed. Main portal veinwas evaluated with color Doppler imaging. [employer] images wereobtained for the record.COMPARISON: NoneFINDINGS: LIVER: [...] reviewed this study and agree with the abovereport.[facility]2020-04-01 03:27:00 Test Item Value Reference Range Interpretation Comments POCT GLU (test code = 2513392919) 132 mg/dL 70-110 H Lab Interpretation (test code = Abnormal 03746-4) [facility] WITH [id number] 14:41:00 Test Item Value Reference Range Interpretation [...] (test code = 54.5 fL 39-49.9 H 07570-9) RDW-CV (test code = 17.2 % 12-15.5 H 788-0) PLT (test code = See_Comment H [Automated 777-3) message] The system which generated this result transmitted reference range : 166 - 358 10*3/?L. The reference range was not used to interpret this result as normal/abnormal . MPV (test code = 10.8 fL 9.5-12.9 19171-3) NRBC/100 WBC (test See_Comment [Automat ed code = 6957983362) message] The system which generated this result transmitted reference range : 0.0 - 10.0 /100 WBCs. The reference range was not used to interpret this result as normal/abnormal . NRBC x10^3 (test code See_Comment [Auto mated = 8687512067) message] The system which generated this result transmitted reference range : 10*3/?L. The reference range was not used to interpret this result as normal/abnormal . GRAN MAT (NEUT) % 87.5 % (test code = 770-8) IMM GRAN % (test code 5.10 % = 6001731508) LYMPH % (test code = 3.4 % 736-9) MONO % (test code = 3.8 % 5905-5) EOS % (test code = 0.2 % 713-8) BASO % (test code = 0.0 % 706-2) GRAN MAT x10^3(ANC) 58.27 10*3/uL 1.88-7.09 H (test code = 8045837616) IMM GRAN x10^3 (test 3.42 10*3/uL 0-0.06 H code = 0520136245) LYMPH x10^3 (test 2.29 10*3/uL 1.32-3.29 code = 731-0) MONO x10^3 (test code 2.53 10*3/uL 0.33-0.92 H = 742-7) EOS x10^3 (test code 0.15 10*3/uL 0.03-0.39 = 711-2) BASO x10^3 (test code <0.03 0.01-0.07 = 704-7) SHER CELLS (test code 2+ See_Comment A [Auto mated = 6497-9) message] The system which generated this result transmitted reference range : (none). The reference range was not used to interpret this result as normal/abnormal . BANDS (test code = MARKED INCREASED A 0360968644) REACT LYMPHS (test Rare code = 8038421600) Lab Interpretation Abnormal (test code = 97515-3) [facility] GLUCOSE (AUTOMATED)2020-03-31 14:31:00 Test Item Value Reference Range Interpretation Comments POCT GLU (test code = 0885323032) 175 mg/dL 70-110 H Lab Interpretation (test code = Abnormal 49208-9) [facility] [place] (ALB,T.PRO,BILI T,BU/BC,ALT,AST,ALK PHOS)2020-03-31 12:59:00 Test Item Value Reference Range Interpretation Comments TOTAL BILI (test code = 6023221748) 0.4 mg/dL 0.1-1.1 BILI UNCON (test code = 4224675544) 0.2 mg/dL 0.1-1.1 BILI CONJ (test code = 8753177594) 0.0 mg/dL 0-0.3 T PROTEIN (test code = 4149820563) 5.6 g/dL 6.3-8.2 L ALBUMIN (test code = 6350897578) 2.5 g/dL 3.5-5 L ALK PHOS (test code = 2274356866) 170 U/L 34-122 H ALTv (test code = 1742-6) 20 U/L 5-35 AST(SGOT) (test code = 6970466705) 32 U/L 13-40 Lab Interpretation (test code = Abnormal 25509-9) [facility] (NA, K, CL, CO2, GLUCOSE, BUN, CREATININE, CA)2020-03-31 12:45:00 Test Item Value Reference Range Interpretation Comments NA (test code = 136 mmol/L 135-145 5697812023) K (test code = 3.7 mmol/L 3.5-5 0856443336) CL (test code = 109 mmol/L 98-108 H 4327107624) CO2 TOTAL (test code = 19 mmol/L 23-31 L 5385961487) AGAP (test code = 2-16 3016557098) BUN (test code = 70 mg/dL 7-23 H 6295872350) GLUCOSE (test code = 116 mg/dL 70-110 H 4483951339) CREATININE (test code = 2.00 mg/dL 0.5-1.04 H 9057952439) CALCIUM (test code = 9.1 mg/dL 8.6-10.6 2905156254) eGFR Calculation mL/min/1.73m2 (Non-) (test code = 5932389998) eGFR Calculation mL/min/1.73m2 () (test code = 1610775760) JACI (test code = JACI) Association of [...] tests). Lab Interpretation Abnormal (test code = 54547-4) [facility] [id number] 11:01:00 Test Item Value Reference Range Interpretation Comments Blood Culture-Aerobic No organisms No growth Previo us (test code = 09933-6) isolated prelim inary verified result was Culture In Progress on 03/26/2020 at 0801 CSTPreviou s preliminary verified result was No growth a t 24 hours on 03/27/2020 at 0501 CSTPreviou s preliminary verified result was No growth a t 48 hours on 03/28/2020 at 0501 CSTPreviou s preliminary verified result was No growth a t 72 hours on 03/29/2020 at 0501 [employer] Blood No organisms No growth Previous Culture-Anaerobic isolated preliminar y (test code = 05395-6) verifi ed result was Culture In Progress on 03/26/2020 at 0801 CSTPreviou s preliminary verified result was No growth a t 24 hours on 03/27/2020 at 0501 CSTPreviou s preliminary verified result was No growth a t 48 hours on 03/28/2020 at 0501 CSTPreviou s preliminary verified result was No growth a t 72 hours on 03/29/2020 at 0501 [employer] Lab Interpretation Normal (test code = 23661-5) [facility] [id number] 11:01:00 Test Item Value Reference Range Interpretation Comments Blood Culture-Aerobic No organisms No growth Previo us (test code = 94517-7) isolated prelim inary verified result was Culture In Progress on 03/26/2020 at 0801 CSTPreviou s preliminary verified result was No growth a t 24 hours on 03/27/2020 at 0501 CSTPreviou s preliminary verified result was No growth a t 48 hours on 03/28/2020 at 0501 CSTPreviou s preliminary verified result was No growth a t 72 hours on 03/29/2020 at 0501 [employer] Blood No organisms No growth Previous Culture-Anaerobic isolated preliminar y (test code = 43073-6) verifi ed result was Culture In Progress on 03/26/2020 at 0801 CSTPreviou s preliminary verified result was No growth a t 24 hours on 03/27/2020 at 0501 CSTPreviou s preliminary verified result was No growth a t 48 hours on 03/28/2020 at 0501 CSTPreviou s preliminary verified result was No growth a t 72 hours on 03/29/2020 at 0501 [employer] Lab Interpretation Normal (test code = 43380-4) [facility] GLUCOSE (AUTOMATED)2020-03-31 04:03:00 Test Item Value Reference Range Interpretation Comments POCT GLU (test code = 9553935506) 118 mg/dL 70-110 H Lab Interpretation (test code = Abnormal 78472-8) [facility] GLUCOSE (AUTOMATED)2020-03-30 23:18:00 Test Item Value Reference Range Interpretation Comments POCT GLU (test code = 9639255968) 136 mg/dL 70-110 H Lab Interpretation (test code = Abnormal 60930-1) [facility] GLUCOSE (AUTOMATED)2020-03-30 18:18:00 Test Item Value Reference Range Interpretation Comments POCT GLU (test code = 8286143975) 131 mg/dL 70-110 H Lab Interpretation (test code = Abnormal 80314-3) [facility] GLUCOSE (AUTOMATED)2020-03-30 14:31:00 Test Item Value Reference Range Interpretation Comments POCT GLU (test code = 6677278190) 127 mg/dL 70-110 H Lab Interpretation (test code = Abnormal 08701-9) [facility] WITH [id number] 12:26:00 Test Item Value Reference Range Interpretation [...] (test code = 55.6 fL 39-49.9 H 29894-3) RDW-CV (test code = 17.3 % 12-15.5 H 788-0) PLT (test code = See_Comment H [Automated 777-3) message] The system which generated this result transmitted reference range : 166 - 358 10*3/?L. The reference range was not used to interpret this result as normal/abnormal . MPV (test code = 10.8 fL 9.5-12.9 45669-7) NRBC/100 WBC (test See_Comment [Automat ed code = 8764798541) message] The system which generated this result transmitted reference range : 0.0 - 10.0 /100 WBCs. The reference range was not used to interpret this result as normal/abnormal . NRBC x10^3 (test code <0.01 See_Comment [Auto mated = 7168973443) message] The system which generated this result transmitted reference range : 10*3/?L. The reference range was not used to interpret this result as normal/abnormal . GRAN MAT (NEUT) % 88.7 % (test code = 770-8) IMM GRAN % (test code 6.20 % = 4454715796) LYMPH % (test code = 1.9 % 736-9) MONO % (test code = 3.1 % 5905-5) EOS % (test code = 0.1 % 713-8) BASO % (test code = 0.0 % 706-2) GRAN MAT x10^3(ANC) 68.46 10*3/uL 1.88-7.09 H (test code = 2048778037) IMM GRAN x10^3 (test 4.82 10*3/uL 0-0.06 H code = 3144212644) LYMPH x10^3 (test 1.45 10*3/uL 1.32-3.29 code = 731-0) MONO x10^3 (test code 2.38 10*3/uL 0.33-0.92 H = 742-7) EOS x10^3 (test code 0.06 10*3/uL 0.03-0.39 = 711-2) BASO x10^3 (test code 0.03 10*3/uL 0.01-0.07 = 704-7) SHER CELLS (test code 2+ See_Comment A [Auto mated = 1157-9) message] The system which generated this result transmitted reference range : (none). The reference range was not used to interpret this result as normal/abnormal . BANDS (test code = MARKED INCREASED A 7070742138) Lab Interpretation Abnormal (test code = 10471-1) [facility] METABOLIC PANEL (NA, K, CL, CO2, GLUCOSE, BUN, CREATININE, CA)2020-03-30 12:15:00 Test Item Value Reference Range Interpretation Comments NA (test code = 137 mmol/L 135-145 2823618028) K (test code = 3.7 mmol/L 3.5-5 7377851831) CL (test code = 110 mmol/L 98-108 H 1851266304) CO2 TOTAL (test code = 18 mmol/L 23-31 L 2438735355) AGAP (test code = 2-16 7871466490) BUN (test code = 61 mg/dL 7-23 H 8525506225) GLUCOSE (test code = 112 mg/dL 70-110 H 0630249165) CREATININE (test code = 2.46 mg/dL 0.5-1.04 H 3104336835) CALCIUM (test code = 9.3 mg/dL 8.6-10.6 5897269776) eGFR Calculation mL/min/1.73m2 (Non-) (test code = 2932596026) eGFR Calculation mL/min/1.73m2 () (test code = 7080794545) JACI (test code = JACI) Association of [...] tests). Lab Interpretation Abnormal (test code = 20443-1) [facility] GLUCOSE (AUTOMATED)2020-03-30 02:56:00 Test Item Value Reference Range Interpretation Comments POCT GLU (test code = 1479752974) 131 mg/dL 70-110 H Lab Interpretation (test code = Abnormal 49909-2) [facility] GLUCOSE (AUTOMATED)2020-03-29 23:58:00 Test Item Value Reference Range Interpretation Comments POCT GLU (test code = 9279651017) 125 mg/dL 70-110 H Lab Interpretation (test code = Abnormal 56395-5) [facility] HEAD WO [id number] 22:42:17 No acute intracranial abnormality. Postprocedural changes [...] noted in the do and right basal ganglia.[facility] GLUCOSE (AUTOMATED)2020-03-29 20:25:00 Test Item Value Reference Range Interpretation Comments POCT GLU (test code = 6890266014) 209 mg/dL 70-110 H Lab Interpretation (test code = Abnormal 33513-8) [facility] [id number] 17:29:00 Test Item Value Reference Range Interpretation Comments URINE CULTURE (test > 100,000 CFU/mL mixed code = 630-4) aerobic organisms - suggests endogenous microbial contamination [facility] GLUCOSE (AUTOMATED)2020-03-29 16:24:00 Test Item Value Reference Range Interpretation Comments POCT GLU (test code = 0373985043) 136 mg/dL 70-110 H Lab Interpretation (test code = Abnormal 82523-5) [facility] (NA, K, CL, CO2, GLUCOSE, BUN, CREATININE, CA)2020-03-29 11:44:00 Test Item Value Reference Range Interpretation Comments NA (test code = 138 mmol/L 135-145 0192629215) K (test code = 3.9 mmol/L 3.5-5 0799317414) CL (test code = 111 mmol/L 98-108 H 2741956305) CO2 TOTAL (test code = 18 mmol/L 23-31 L 1741017277) AGAP (test code = 2-16 2847765472) BUN (test code = 39 mg/dL 7-23 H 7616473017) GLUCOSE (test code = 140 mg/dL 70-110 H 3623138397) CREATININE (test code = 2.38 mg/dL 0.5-1.04 H 3883790019) CALCIUM (test code = 9.1 mg/dL 8.6-10.6 9376390117) eGFR Calculation mL/min/1.73m2 (Non-) (test code = 2430989085) eGFR Calculation mL/min/1.73m2 () (test code = 1676910785) JACI (test code = JACI) Association of [...] tests). Lab Interpretation Abnormal (test code = 21208-5) [facility] WITH [id number] 11:18:00 Test Item Value Reference Range Interpretation [...] (test code = 55.5 fL 39-49.9 H 15914-0) RDW-CV (test code = 17.2 % 12-15.5 H 788-0) PLT (test code = See_Comment H [Automated 777-3) message] The system which generated this result transmitted reference range : 166 - 358 10*3/?L. The reference range was not used to interpret this result as normal/abnormal . MPV (test code = 10.8 fL 9.5-12.9 75669-2) NRBC/100 WBC (test See_Comment [Automat ed code = 4622088156) message] The system which generated this result transmitted reference range : 0.0 - 10.0 /100 WBCs. The reference range was not used to interpret this result as normal/abnormal . NRBC x10^3 (test code <0.01 See_Comment [Auto mated = 2450208502) message] The system which generated this result transmitted reference range : 10*3/?L. The reference range was not used to interpret this result as normal/abnormal . GRAN MAT (NEUT) % 86.4 % (test code = 770-8) IMM GRAN % (test code 8.10 % = 3699708342) LYMPH % (test code = 1.4 % 736-9) MONO % (test code = 3.7 % 5905-5) EOS % (test code = 0.0 % 713-8) BASO % (test code = 0.4 % 706-2) GRAN MAT x10^3(ANC) 61.96 10*3/uL 1.88-7.09 H (test code = 0410266966) IMM GRAN x10^3 (test 5.84 10*3/uL 0-0.06 H code = 1005386421) LYMPH x10^3 (test 1.01 10*3/uL 1.32-3.29 L code = 731-0) MONO x10^3 (test code 2.66 10*3/uL 0.33-0.92 H = 742-7) EOS x10^3 (test code <0.03 0.03-0.39 L = 711-2) BASO x10^3 (test code 0.30 10*3/uL 0.01-0.07 H = 704-7) SHER CELLS (test code 2+ See_Comment A [Auto mated = 7823-3) message] The system which generated this result transmitted reference range : (none). The reference range was not used to interpret this result as normal/abnormal . BANDS (test code = MARKED INCREASED A 4216072061) Lab Interpretation Abnormal (test code = 11058-6) [facility]2020-03-29 03:46:00 Test Item Value Reference Range Interpretation Comments POCT GLU (test code = 3731424136) 144 mg/dL 70-110 H Lab Interpretation (test code = Abnormal 79012-1) [facility]2020[facility]18 01:53:00 Test Item Value Reference Range Interpretation Comments APPEARANCE (test code = Cloudy Clear A 6448849517) COLOR (test code = Sarai Yellow A 6461841917) PH (test code = 4.8-8.0 9390812498) SP GRAVITY (test code = 1.003-1.030 2606432858) GLU U QUAL (test code = Normal Normal 3787424119) BLOOD (test code = 1+ Negative A 6121647776) KETONES (test code = Negative Negative 7738361437) PROTEIN (test code = 100 mg/dL Negative A 2887-8) UROBILIN (test code = Normal Normal 6629162489) BILIRUBIN (test code = Negative Negative 0962868931) NITRITE (test code = Negative Negative 6853729745) LEUK TRENA (test code = 250/uL Negative A 4670698366) RBC/HPF (test code = See_Comment H [Autom ated message] 0937470660) The system [employer] generated this result transmit shira reference range : 0 - 3 HPF. The refe rence range was not u sed to interpret th is result as normal/abnormal . WBC/HPF (test code = See_Comment H [Autom ated message] 2219390670) The system [employer] generated this result transmit shira reference range : 0 - 5 HPF. The refe rence range was not u sed to interpret th is result as normal/abnormal . BACTERIA (test code = Few Negative A 3173648545) AMORPHOUS (test code = Rare HPF 5837948007) SQ EPITH (test code = See_Comment H [Auto mated message] 4522078775) The system [employer] generated this result transmit shira reference range : <=2 HPF. The refere nce range was not u sed to interpret th is result as normal/abnormal . WBC CLUMPS (test code = See_Comment H [Au tomated message] 5960135363) The system [employer] generated this result transmit shira reference range : <=1 HPF. The refere nce range was not u sed to interpret th is result as normal/abnormal . Lab Interpretation (test Abnormal code = 66225-2) [facility] [id number] 00:54:31 - ? No acute cardiopulmonary disease. Preliminary Report Dictated by Resident: Regina Dean I, Norah ?MD. Zee, have reviewed this study and agree with theabove report.EXAM: XR CHEST 1 03/28/2020 2:20 PM. HISTORY: 80 years-old Female [...] 03/28/2020 6:55 PM CSTEXAM: XR CHEST 1 03/28/2020 2:20 PM.HISTORY: 80 years-old Female with [...] reviewed this study and agree with theabove report.[facility]PRET[facility] 2020-03-28 18:37:00INTERVAL INCREASE IN LEUKOCYTE COUNT. SUGGEST INFECTIOUS DISEASE CONSULT.[facility] [place] BARIUM SWALLOW, (COOKIE) 2020-03-28 17:25:271. ?Penetration with [...] Straightening of the normal cervical lordotic curvature. [facility], Radiant Results Inft User - 03/28/2020 11:26 [...] reviewed this study and agree with the abovereport.[facility]2020-12-17 14:31:00 Test Item Value Reference Range Interpretation Comments MAGNESIUM (test code = 5838274199) 1.6 mg/dL 1.7-2.4 L Lab Interpretation (test code = Abnormal 26136-8) [facility] [id number] 14:22:00 Test Item Value Reference Range Interpretation Comments URINE CULTURE 10,000-100,000 Previous pre liminary (test code = CFU/mL Stephanie verified resu lt was 630-4) glabrata Yeast on 2019 at [address] [employer] [facility] (NA, K, CL, CO2, GLUCOSE, BUN, CREATININE, CA)2020-03-28 12:51:00 Test Item Value Reference Range Interpretation Comments NA (test code = 139 mmol/L 135-145 6672446440) K (test code = 3.1 mmol/L 3.5-5 L 8606203778) CL (test code = 111 mmol/L 98-108 H 5649319670) CO2 TOTAL (test code = 18 mmol/L 23-31 L 8654702497) AGAP (test code = 2-16 0916607484) BUN (test code = 24 mg/dL 7-23 H 3555108770) GLUCOSE (test code = 182 mg/dL 70-110 H 6909487066) CREATININE (test code = 1.41 mg/dL 0.5-1.04 H 4243250554) CALCIUM (test code = 8.8 mg/dL 8.6-10.6 4054383543) eGFR Calculation mL/min/1.73m2 (Non-) (test code = 2912190664) eGFR Calculation mL/min/1.73m2 () (test code = 0027739579) JACI (test code = JACI) Association of [...] tests). Lab Interpretation Abnormal (test code = 65275-7) [facility] WITH [id number] 12:50:00 Test Item Value Reference Range Interpretation Comments WBC (test code = See_Comment H [Automated 8845-2) message] The system which generated this result transmit shira reference range : 4.30 - 11.10 10*3/?L. The reference range was not used to interpret this result as normal/abnormal . RBC (test code = See_Comment [Automated 597-8) message] The system which generated this result [...] (test code = 52.7 fL 39-49.9 H 10964-9) RDW-CV (test code = 16.6 % 12-15.5 H 788-0) PLT (test code = See_Comment H [Automated 777-3) message] The system which generated this result transmit shira reference range : 166 - 358 10*3/ ?L. The reference range was not u sed to interpret th is result as normal/abnormal . MPV (test code = 10.4 fL 9.5-12.9 68260-0) NRBC/100 WBC (test See_Comment [Automat ed code = 8623007507) message] The system which generated this result transmit shira reference range : 0.0 - 10.0 /100 WBCs. The reference range was not used to interpret this result as normal/abnormal . NRBC x10^3 (test code <0.01 See_Comment [Auto mated = 1878371983) message] The system which generated this result transmit shira reference range : 10*3/?L. The reference range was not used to interpret this result as normal/abnormal . GRAN MAT (NEUT) % 89.7 % (test code = 770-8) IMM GRAN % (test code 5.10 % = 5647317838) LYMPH % (test code = 1.0 % 736-9) MONO % (test code = 4.1 % 5905-5) EOS % (test code = 0.0 % 713-8) BASO % (test code = 0.1 % 706-2) GRAN MAT x10^3(ANC) 57.33 10*3/uL 1.88-7.09 H (test code = 0724157508) IMM GRAN x10^3 (test 3.27 10*3/uL 0-0.06 H code = 7767000692) LYMPH x10^3 (test code 0.65 10*3/uL 1.32-3.29 L = 731-0) MONO x10^3 (test code 2.60 10*3/uL 0.33-0.92 H = 742-7) EOS x10^3 (test code = <0.03 0.03-0.39 L 711-2) BASO x10^3 (test code 0.05 10*3/uL 0.01-0.07 = 704-7) BANDS (test code = Increased A 0119385727) Lab Interpretation Abnormal (test code = 41756-2) [facility]2020-03-28 04:43:00 Test Item Value Reference Range Interpretation Comments POCT GLU (test code = 6798352024) 152 mg/dL 70-110 H Lab Interpretation (test code = Abnormal 33392-3) [facility] WITH [id number] 01:21:00 Test Item Value Reference Range Interpretation [...] (test code = 52.9 fL 39-49.9 H 52985-1) RDW-CV (test code = 16.7 % 12-15.5 H 788-0) PLT (test code = See_Comment H [Automated 777-3) message] The system which generated this result transmit shira reference range : 166 - 358 10*3/ ?L. The reference range was not u sed to interpret th is result as normal/abnormal . MPV (test code = 10.5 fL 9.5-12.9 98554-8) NRBC/100 WBC (test See_Comment [Automat ed code = 5240343161) message] The system which generated this result transmit shira reference range : 0.0 - 10.0 /100 WBCs. The reference range was not used to interpret this result as normal/abnormal . NRBC x10^3 (test code <0.01 See_Comment [Auto mated = 3444461962) message] The system which generated this result transmit shira reference range : 10*3/?L. The reference range was not used to interpret this result as normal/abnormal . GRAN MAT (NEUT) % 91.5 % (test code = 770-8) IMM GRAN % (test code 1.80 % = 5196710205) LYMPH % (test code = 2.5 % 736-9) MONO % (test code = 3.9 % 5905-5) EOS % (test code = 0.0 % 713-8) BASO % (test code = 0.3 % 706-2) GRAN MAT x10^3(ANC) 39.53 10*3/uL 1.88-7.09 H (test code = 2005206872) IMM GRAN x10^3 (test 0.78 10*3/uL 0-0.06 H code = 2985938340) LYMPH x10^3 (test code 1.10 10*3/uL 1.32-3.29 L = 731-0) MONO x10^3 (test code 1.67 10*3/uL 0.33-0.92 H = 742-7) EOS x10^3 (test code = <0.03 0.03-0.39 L 711-2) BASO x10^3 (test code 0.13 10*3/uL 0.01-0.07 H = 704-7) Lab Interpretation Abnormal (test code = 79906-1) [facility] METABOLIC PANEL (NA, K, CL, CO2, GLUCOSE, BUN, CREATININE, CA)2020-03-28 00:00:00 Test Item Value Reference Range Interpretation Comments NA (test code = 139 mmol/L 135-145 8977612697) K (test code = 3.3 mmol/L 3.5-5 L 2033208798) CL (test code = 111 mmol/L 98-108 H 5728115409) CO2 TOTAL (test code = 21 mmol/L 23-31 L 6345537961) AGAP (test code = 2-16 2402787388) BUN (test code = 18 mg/dL 7-23 0278810707) GLUCOSE (test code = 152 mg/dL 70-110 H 8782199576) CREATININE (test code = 1.15 mg/dL 0.5-1.04 H 0186618608) CALCIUM (test code = 9.0 mg/dL 8.6-10.6 5231517769) eGFR Calculation mL/min/1.73m2 (Non-) (test code = 7691514386) eGFR Calculation mL/min/1.73m2 () (test code = 8098273002) JACI (test code = JACI) Association of [...] tests). Lab Interpretation Abnormal (test code = 55530-1) [facility] GLUCOSE (AUTOMATED)2020-03-27 18:48:00 Test Item Value Reference Range Interpretation Comments POCT GLU (test code = 5034371593) 152 mg/dL 70-110 H Lab Interpretation (test code = Abnormal 87288-4) [facility] GLUCOSE (AUTOMATED)2020-03-27 15:53:00 Test Item Value Reference Range Interpretation Comments POCT GLU (test code = 4830946542) 139 mg/dL 70-110 H Lab Interpretation (test code = Abnormal 94689-2) [facility] GLUCOSE (AUTOMATED)2020-03-27 04:08:00 Test Item Value Reference Range Interpretation Comments POCT GLU (test code = 2400504735) 122 mg/dL 70-110 H Lab Interpretation (test code = Abnormal 99481-0) [facility] COVID [id number] 03:51:00COVID DMT InterpretationInterpretation/Recommendations: Molecular NAAT Tests for Active Infection with the SARS-CoV-2 Virus: This patient has a history of testing negative on multiple occasions for scuPEZK-CuM-7 virus that causes COVID-19 illness, with no [...] upon aggregate COVID-19 test results pooled from [facility]. They apply to the following tests offered at [facility] and assume the acceptable specimen type(s) were used: A. Tests for the Identification of SARS-CoV-2 RNA (Molecular NAAT Tests): ?- SARS-CoV-2 PCR assays including [place] Aptima, [place] Fusion, [employer] RealTime, and [employer] Xpert Xpress. ?- SARS-CoV-2 Rapid IDNOW by the ID NOW assay. ? B. Tests for the Identification of SARS-CoV-2 Antibodies: ?- Chemi luminescent immunoassays including Access SARS-CoV-2 IgM (DXI 600), VITROS Jssp-ABST-HlC-2 IgG (Vitros 5600 and Vitros 3600), and Aguilar SARS-CoV-2 IgG (HOSPICE MUSIC THERAPIST I System). These interpretations are autopopulated into [facility] based on computerized algorithms matching an interpretation code to the patient's set of test results, and a clinical pathologist evaluates the comments for accuracy. However, these comments do not consider testing a patient may have had outside of the [facility] system. If results for COVID-19 infection [...] lavage fluid (BAL), tracheal aspirate, etc.). ? [facility] CARE SERVICES LABORATORY SERVICESCOVID [id number]-[id number] NAAT (no units) ? ? Date ? Value ? 01/15/2020 ? Not Detected ? ? ? 11/16/2019 ?Not Detected ? SARS-CoV-2 Rapid ID NOW (no units) ? ? Date ? Value ? 03/26/2020 ? Not Detected ? ? ? 01/22/2020 ? Not Detected ? [facility]2020-03-26 23:53:00 Test Item Value Reference Range Interpretation Comments POCT GLU (test code = 9928634080) 128 mg/dL 70-110 H Lab Interpretation (test code = Abnormal 65354-7) [facility] Screen - ONCE [id number] 21:12:59 Test Item Value Reference Range Interpretation Comments ABO & RH (test code A POSITIVE Performe d at [facility] = 20) Laboratory Serv [facility] Blood Bank3 [facility] s [address]Rvnv Free: [phone] A No. [id number] IAT (test code = Negative Performed a t [facility] 1185) Laboratory Serv [facility] Blood Bank3 [address] [facility] s [address]Ueca Free: [phone] A No. [id number] [facility] AtlantaC-REACTIVE [id number] 19:43:00 Test Item Value Reference Range Interpretation Comments CRP (test code = 2886604099) 1.6 mg/dL <0.8 H Lab Interpretation (test code = Abnormal 29849-7) [facility] GLUCOSE (AUTOMATED)2020-03-26 19:29:00 Test Item Value Reference Range Interpretation Comments POCT GLU (test code = 5361832669) 138 mg/dL 70-110 H Lab Interpretation (test code = Abnormal 67194-1) [facility] AtlantaDIFF CONSULT [id number] 18:37:00 LEUKOCYTOSIS WITH ABSOLUTE NEUTROPHILIA INCLUDING TOXIC NEUTROPHILS, REACTIVE LYMPHOCYTES AND ABSOLUTE REACTIVE MONOCYTOSIS SUGGESTIVE OF SYSTEMIC INFECTION/INFLAMMATION. NORMOCYTIC NORMOCHROMIC ANEMIAWITH ANISOPOIKILOCYTOSIS INCLUDING SHER CELLS, POLYCHROMASIA, OVALOCYTES AND RARE SPHEROCYTES, SUGGESTIVE OF ANEMIA OF CHRONIC DISEASE AND EARLY IRON DEFICIENCY. ? THROMBOCYTOSIS WITH LARGE FORMS, LIKELY TO BE REACTIVE.[facility] Atlanta[facility]AUTOMATED)2020-03-26 15:14:00 Test Item Value Reference Range Interpretation Comments POCT GLU (test code = 1718594334) 123 mg/dL 70-110 H Lab Interpretation (test code = Abnormal 48820-3) [facility] AtlantaVITAMIN B12, [id number] 14:58:00 Test Item Value Reference Range Interpretation Comments VIT B12 (test code = 734 pg/mL 240-930 5417491374) JACI (test code = JACI) Biotin has been reported to cause a positive bias, interpret results relative to patient's use of biotin. Lab Interpretation (test Normal code = 92029-8) [facility] AtlantaFOLATE2020-12-15 14:58:00 Test Item Value Reference Range Interpretation Comments FOLATE SER (test code = 10.4 ng/mL 3-20 9834991096) Lab Interpretation (test code = Normal 98295-3) [facility] AtlantaSEDIMENTATION [id number] 13:25:00 Test Item Value Reference Range Interpretation Comments ESR (test code = See_Comment H [Automated message] 8295992199) The system Jambool generated this result transmitted ref erence range: 0 - 20 m m/HR. The reference r louise was not used to interpret this result as normal/abnor mal. Lab Interpretation (test Abnormal code = 61942-1) [facility] AtlantaTHYROID STIMULATING [id number] 13:21:00 Test Item Value Reference Range Interpretation Comments TSH (test code = See_Comment [Automated message] 1623265019) The system Jambool generated this result transmitted ref erence range: 0.45 - 4 .70 mIU/L. The refe rence range was not u sed to interpret this result as normal/abnor mal. Lab Interpretation (test Normal code = 89281-4) [facility] AtlantaBASI METABOLIC PANEL (NA, K, CL, CO2, GLUCOSE, BUN, CREATININE, CA)2020-03-26 13:10:00 Test Item Value Reference Range Interpretation Comments NA (test code = 137 mmol/L 135-145 8908090724) K (test code = 3.3 mmol/L 3.5-5 L 1328140910) CL (test code = 109 mmol/L 98-108 H 1075367458) CO2 TOTAL (test code = 21 mmol/L 23-31 L 7215135557) AGAP (test code = 2-16 3507759366) BUN (test code = 16 mg/dL 7-23 3432453161) GLUCOSE (test code = 112 mg/dL 70-110 H 5887573331) CREATININE (test code = 1.03 mg/dL 0.5-1.04 0490552781) CALCIUM (test code = 8.9 mg/dL 8.6-10.6 9564390098) eGFR Calculation mL/min/1.73m2 (Non-) (test code = 4691711548) eGFR Calculation mL/min/1.73m2 () (test code = 4446179814) JACI (test code = JACI) Association of [...] tests). Lab Interpretation Abnormal (test code = 17567-0) [facility] AtlantaHEPATIC FUNCTION PANEL (41491) (ALB,T.PRO,BILI T,BU/BC,ALT,AST,ALK PHOS)2020-03-26 12:47:00 Test Item Value Reference Range Interpretation Comments TOTAL BILI (test code = 7354036012) 0.4 mg/dL 0.1-1.1 BILI UNCON (test code = 8556543183) 0.3 mg/dL 0.1-1.1 BILI CONJ (test code = 8579970546) 0.0 mg/dL 0-0.3 T PROTEIN (test code = 2067512639) 6.6 g/dL 6.3-8.2 ALBUMIN (test code = 6561839399) 2.9 g/dL 3.5-5 L ALK PHOS (test code = 7369718208) 185 U/L 34-122 H ALTv (test code = 1742-6) 25 U/L 5-35 AST(SGOT) (test code = 8632030221) 44 U/L 13-40 H Lab Interpretation (test code = Abnormal 56645-1) [facility] AtlantaMAGNESIUM2020-12-15 12:47:00 Test Item Value Reference Range Interpretation Comments MAGNESIUM (test code = 6577725633) 1.8 mg/dL 1.7-2.4 Lab Interpretation (test code = Normal 25551-5) [facility] AtlantaURIC [id number] 12:47:00 Test Item Value Reference Range Interpretation Comments URIC ACID (test code = 9075250767) 4.9 mg/dL 2.9-6 Lab Interpretation (test code = Normal 14601-2) [facility] AtlantaGLYCOSYLATED HEMOGLOBIN (A1C)2020-03-26 12:34:00 Test Item Value Reference Range Interpretation Comments HGB A1C (test code = 4548-4) 5.8 % 4-6 Lab Interpretation (test code = Normal 25372-9) [facility] AtlantaURINALYSIS2020-12-15 12:34:00 Test Item Value Reference Range Interpretation Comments APPEARANCE (test code = Turbid Clear A 7511153639) COLOR (test code = Yellow Yellow 9968920002) PH (test code = 4.8-8.0 8578833748) SP GRAVITY (test code = 1.003-1.030 5268817467) GLU U QUAL (test code = Normal Normal 5966704150) BLOOD (test code = 1+ Negative A 5269113620) KETONES (test code = Negative Negative 2083702084) PROTEIN (test code = 100 mg/dL Negative A 2887-8) UROBILIN (test code = Normal Normal 1471567316) BILIRUBIN (test code = Negative Negative 8577806378) NITRITE (test code = Negative Negative 6659752688) LEUK TRENA (test code = 500/uL Negative A 8984091316) RBC/HPF (test code = See_Comment H [Autom ated message] 2858130818) The system Jambool generated this result transmit shira reference range : 0 - 3 HPF. The refe rence range was not u sed to interpret th is result as normal/abnormal . WBC/HPF (test code = >182 See_Comment H [Autom ated message] 6993272020) The system Jambool generated this result transmit shira reference range : 0 - 5 HPF. The refe rence range was not u sed to interpret th is result as normal/abnormal . BACTERIA (test code = Few Negative A 3679091184) Lab Interpretation (test Abnormal code = 06587-3) [facility] AtlantaCB WITH [id number] 12:32:00 Test Item Value Reference Range Interpretation Comments WBC (test code = See_Comment H [Automated 8390-2) message] The system which generated this result [...] (test code = 51.5 fL 39-49.9 H 74777-8) RDW-CV (test code = 16.1 % 12-15.5 H 788-0) PLT (test code = See_Comment H [Automated 777-3) message] The system which generated this result transmit shira reference range : 166 - 358 10*3/ ?L. The reference range was not u sed to interpret th is result as normal/abnormal . MPV (test code = 10.3 fL 9.5-12.9 31529-0) NRBC/100 WBC (test See_Comment [Automat ed code = 5550342657) message] The system which generated this result transmit shira reference range : 0.0 - 10.0 /100 WBCs. The reference range was not used to interpret this result as normal/abnormal . NRBC x10^3 (test code <0.01 See_Comment [Auto mated = 2995200990) message] The system which generated this result transmit shira reference range : 10*3/?L. The reference range was not used to interpret this result as normal/abnormal . GRAN MAT (NEUT) % 79.3 % (test code = 770-8) IMM GRAN % (test code 1.10 % = 1010201139) LYMPH % (test code = 8.7 % 736-9) MONO % (test code = 8.0 % 5905-5) EOS % (test code = 2.4 % 713-8) BASO % (test code = 0.5 % 706-2) GRAN MAT x10^3(ANC) 13.49 10*3/uL 1.88-7.09 H (test code = 5453484775) IMM GRAN x10^3 (test 0.19 10*3/uL 0-0.06 H code = 0404578650) LYMPH x10^3 (test code 1.49 10*3/uL 1.32-3.29 = 731-0) MONO x10^3 (test code 1.37 10*3/uL 0.33-0.92 H = 742-7) EOS x10^3 (test code = 0.41 10*3/uL 0.03-0.39 H 711-2) BASO x10^3 (test code 0.08 10*3/uL 0.01-0.07 H = 704-7) Lab Interpretation Abnormal (test code = 13532-6) [facility] AtlantaPROTHROMBIN TIME / [id number] 11:52:00 Test Item Value Reference Range Interpretation Comments PROTIME PATIENT (test See_Comment H [Auto mated message] code = 5964-2) The system Springpad generated this result transmitted ref erence range: 10.1 - 1 2.6 Seconds. The reference range was not used to int erpret this result as normal/abnormal . INR (test code = 6301-6) Nor mal INR <1.1; Warfarin Therap eutic range 2.0 to 3. 0 or 2.5 to 3.5, dep ending upon the indica tions. Lab Interpretation (test Abnormal code = 82513-3) [facility] AtlantaACTIVATED PARTIAL THRMPLAS [id number] 11:52:00 Test Item Value Reference Range Interpretation Comments APTT Patient (test code See_Comment L [Au tomated message] = 3173-2) The system Jambool generated this result transmitted ref erence range: 26 - 36 Seconds. The reference range was not used to int erpret this result as normal/abnormal . Lab Interpretation (test Abnormal code = 60991-3) [facility] AtlantaCOVID-19 (ID NOW RAPID TESTING)2020-03-26 10:25:00 Test Item Value Reference Range Interpretation Comments SARS-CoV-2 Rapid ID NOW Not Detected Not Detected (test code = 67765-5) JACI (test code = JACI) ID NOW COVID-19 Assay is an isothermal nucleic acid amplification test intended for the qualitative detection of nucleic acid from SARS-CoV-2 viral RNA in nasopharyngeal (TUB ATTENDANT) specimens. It is used under Emergency Use [...] indicated. Lab Interpretation Normal (test code = 61616-0) [facility] AtlantaPOCT GLUCOSE (AUTOMATED)2020-03-26 04:56:00 Test Item Value Reference Range Interpretation Comments POCT GLU (test code = 0873845019) 119 mg/dL 70-110 H Lab Interpretation (test code = Abnormal 13589-3) [facility] AtlantaIR INTRAVASCULAR STENT WITHOUT DISTAL EMBOLIC [id number] 16:10:23Impression: Successful vertebral artery stenting of the [...] in the usual sterile fashion, a 21-gauge Boxever micro puncture needlewas used to puncture the femoral artery and after briskreturn of ?arterialblood, a 0.018 inch wire was threaded via the needle, after the needle waswithdrawn a 6-Zimbabwean vascular sheath was then advanced over the wire andconnected to a pressurized arterial saline bag infusing 4 units heparin/ML. A 5 Zimbabwean Weaver 2 catheter, ?was then advanced over [...] lateral Intervention After diagnostic angiogram a 6 Zimbabwean Envoy guide catheter was placed intothe subclavian [...] or dissection. The vertebralartery is not seen [facility], Radiant Results Inft User - 01/24/2020 11:11 AM CDTExamination:1 Cerebral angiography2 right vertebral artery origin stentingDate of surgery January 23, 2020Operators: Dr. Khai CarrascoIndication:Right vertebral artery origin stenosisConsent:The patient was given [...] in the usual sterile fashion, a 21-gauge Boxever micro puncture needlewas used to puncture the femoral artery and after brisk return of arterialblood, a 0.018 inch wire was threaded via the needle, after the needle waswithdrawn a 6-Zimbabwean vascular sheath was then advanced over the wire andconnected to a pressurized arterial saline bag infusing 4 units heparin/ML.A 5 Zimbabwean Weaver 2 catheter, was then advanced over [...] intracranial, AP, lateralInterventionAfter diagnostic angiogram a 6 [place]an Envoy guide catheter was placed intothe subclavian [...] car otid stent stenosis with no flow limitation.[facility] BASIC METABOLIC PANEL (NA, K, CL, CO2, GLUCOSE, BUN, CREATININE, CA)2020-01-24 08:09:00 Test Item Value Reference Range Interpretation Comments NA (test code = 141 mmol/L 135-145 9960184696) K (test code = 4.7 mmol/L 3.5-5 8550587562) CL (test code = 109 mmol/L 98-108 H 6807793254) CO2 TOTAL (test code = 21 mmol/L 23-31 L 3254038910) AGAP (test code = 2-16 6836772407) BUN (test code = 38 mg/dL 7-23 H 3414835071) GLUCOSE (test code = 162 mg/dL 70-110 H 1968323227) CREATININE (test code = 1.61 mg/dL 0.5-1.04 H 2036463223) CALCIUM (test code = 9.6 mg/dL 8.6-10.6 6819949438) eGFR Calculation mL/min/1.73m2 (Non-) (test code = 0468934939) eGFR Calculation mL/min/1.73m2 () (test code = 7691669910) JACI (test code = JACI) Association of [...] tests). Lab Interpretation Abnormal (test code = 71937-6) [facility] AtlantaMAGNESIUM2020-10-14 08:09:00 Test Item Value Reference Range Interpretation Comments MAGNESIUM (test code = 4019332323) 2.1 mg/dL 1.7-2.4 Lab Interpretation (test code = Normal 47171-3) [facility] WITH [id number] 07:46:00 Test Item Value Reference Range Interpretation Comments WBC (test code = See_Comment H [Automated 7790-2) message] The sy stem which generated this result transmitted reference range : 4.30 - 11.10 10*3/?L. The reference range was not used to interpret this result as normal/abnormal . RBC (test code = See_Comment [Automated 379-8) message] The sy stem which generated this [...] (test code = 52.7 fL 39-49.9 H 57646-5) RDW-CV (test code = 15.7 % 12-15.5 H 788-0) PLT (test code = See_Comment [Automated 777-3) message] The sy stem which generated this result transmitted reference range : 166 - 358 10*3/ ?L. The reference r louise was not used to interpret this result as normal/abnormal . MPV (test code = 10.5 fL 9.5-12.9 38527-2) NRBC/100 WBC (test See_Comment [Automat ed code = 2782806862) message] The system which generated this result transmitted reference range : 0.0 - 10.0 /100 WBCs. The refer ence range was not u sed to interpret th is result as normal/abnormal . NRBC x10^3 (test code <0.01 See_Comment [Auto mated = 1902056150) message] The s ystem which generated this result transmitted reference range : 10*3/?L. The reference range was not used to interpret this result as normal/abnormal . GRAN MAT (NEUT) % 69.6 % (test code = 770-8) IMM GRAN % (test code 1.30 % = 2534883113) LYMPH % (test code = 16.4 % 736-9) MONO % (test code = 9.9 % 5905-5) EOS % (test code = 2.4 % 713-8) BASO % (test code = 0.4 % 706-2) GRAN MAT x10^3(ANC) 8.36 10*3/uL 1.88-7.09 H (test code = 5287436657) IMM GRAN x10^3 (test 0.16 10*3/uL 0-0.06 H code = 8761382056) LYMPH x10^3 (test code 1.97 10*3/uL 1.32-3.29 = 731-0) MONO x10^3 (test code 1.19 10*3/uL 0.33-0.92 H = 742-7) EOS x10^3 (test code = 0.29 10*3/uL 0.03-0.39 711-2) BASO x10^3 (test code 0.05 10*3/uL 0.01-0.07 = 704-7) Lab Interpretation Abnormal (test code = 56351-0) [facility] (NA, K, CL, CO2, GLUCOSE, BUN, CREATININE, CA)2020-01-23 22:12:00 Test Item Value Reference Range Interpretation Comments NA (test code = 140 mmol/L 135-145 5891551690) K (test code = 4.4 mmol/L 3.5-5 5593121092) CL (test code = 108 mmol/L 98-108 7697474916) CO2 TOTAL (test code = 25 mmol/L 23-31 2697640492) AGAP (test code = 2-16 8788193630) BUN (test code = 39 mg/dL 7-23 H 2499985758) GLUCOSE (test code = 109 mg/dL 70-110 7883193718) CREATININE (test code = 1.57 mg/dL 0.5-1.04 H 5222944715) CALCIUM (test code = 9.4 mg/dL 8.6-10.6 9241790373) eGFR Calculation mL/min/1.73m2 (Non-) (test code = 4177205253) eGFR Calculation mL/min/1.73m2 () (test code = 7099792907) JACI (test code = JACI) Association of [...] tests). Lab Interpretation Abnormal (test code = 53225-2) [facility] AtlantaType and Screen - [id number] 15:49:30 Test Item Value Reference Range Interpretation Comments ABO & RH (test code A Positive Performe d at [facility] = 20) Laboratory Serv [facility] Blood Bank2 [address] [id number] Free: [phone] 266CLIA No. [id number] IAT (test code = Negative Performed a t [facility] 1185) Laboratory Serv [facility] Blood Bank2 [address] [id number] 4Toll Free: [phone] 266CLIA No. [id number] [facility] AtlantaCBC WITH [id number] 16:56:00 Test Item Value Reference Range Interpretation [...] (test code = 53.2 fL 39-49.9 H 77543-9) RDW-CV (test code = 15.1 % 12-15.5 788-0) PLT (test code = See_Comment [Automated 777-3) message] The sy stem which generated this result transmitted reference range : 166 - 358 10*3/ ?L. The reference r louise was not used to interpret this result as normal/abnormal . MPV (test code = 11.2 fL 9.5-12.9 80177-8) NRBC/100 WBC (test See_Comment [Automat ed code = 0838827492) message] The system which generated this result transmitted reference range : 0.0 - 10.0 /100 WBCs. The refer ence range was not u sed to interpret th is result as normal/abnormal . NRBC x10^3 (test code <0.01 See_Comment [Auto mated = 3624253982) message] The s ystem which generated this result transmitted reference range : 10*3/?L. The reference range was not used to interpret this result as normal/abnormal . GRAN MAT (NEUT) % 76.4 % (test code = 770-8) IMM GRAN % (test code 0.60 % = 7624461523) LYMPH % (test code = 13.1 % 736-9) MONO % (test code = 7.3 % 5905-5) EOS % (test code = 2.3 % 713-8) BASO % (test code = 0.3 % 706-2) GRAN MAT x10^3(ANC) 9.05 10*3/uL 1.88-7.09 H (test code = 2093882747) IMM GRAN x10^3 (test 0.07 10*3/uL 0-0.06 H code = 6333106336) LYMPH x10^3 (test code 1.55 10*3/uL 1.32-3.29 = 731-0) MONO x10^3 (test code 0.86 10*3/uL 0.33-0.92 = 742-7) EOS x10^3 (test code = 0.27 10*3/uL 0.03-0.39 711-2) BASO x10^3 (test code 0.03 10*3/uL 0.01-0.07 = 704-7) Lab Interpretation Abnormal (test code = 84044-5) [facility] WITH [id number] 16:56:00 Test Item Value Reference Range Interpretation [...] (test code = 53.2 fL 39-49.9 H 17213-4) RDW-CV (test code = 15.1 % 12-15.5 788-0) PLT (test code = See_Comment [Automated 777-3) message] The sy stem which generated this result transmitted reference range : 166 - 358 10*3/ ?L. The reference r louise was not used to interpret this result as normal/abnormal . MPV (test code = 11.2 fL 9.5-12.9 27741-3) NRBC/100 WBC (test See_Comment [Automat ed code = 5242750285) message] The system which generated this result transmitted reference range : 0.0 - 10.0 /100 WBCs. The refer ence range was not u sed to interpret th is result as normal/abnormal . NRBC x10^3 (test code <0.01 See_Comment [Auto mated = 9315405910) message] The s ystem which generated this result transmitted reference range : 10*3/?L. The reference range was not used to interpret this result as normal/abnormal . GRAN MAT (NEUT) % 76.4 % (test code = 770-8) IMM GRAN % (test code 0.60 % = 3889226786) LYMPH % (test code = 13.1 % 736-9) MONO % (test code = 7.3 % 5905-5) EOS % (test code = 2.3 % 713-8) BASO % (test code = 0.3 % 706-2) GRAN MAT x10^3(ANC) 9.05 10*3/uL 1.88-7.09 H (test code = 3123892013) IMM GRAN x10^3 (test 0.07 10*3/uL 0-0.06 H code = 2020314704) LYMPH x10^3 (test code 1.55 10*3/uL 1.32-3.29 = 731-0) MONO x10^3 (test code 0.86 10*3/uL 0.33-0.92 = 742-7) EOS x10^3 (test code = 0.27 10*3/uL 0.03-0.39 711-2) BASO x10^3 (test code 0.03 10*3/uL 0.01-0.07 = 704-7) Lab Interpretation Abnormal (test code = 09024-7) [facility] METABOLIC PANEL (NA, K, CL, CO2, GLUCOSE, BUN, CREATININE, CA)2019-11-22 09:45:00 Test Item Value Reference Range Interpretation Comments NA (test code = 139 mmol/L 135-145 8143401311) K (test code = 5.1 mmol/L 3.5-5 H 7262642821) CL (test code = 115 mmol/L 98-108 H 5739210607) CO2 TOTAL (test code = 21 mmol/L 23-31 L 4028491007) AGAP (test code = 2-16 7291206165) BUN (test code = 35 mg/dL 7-23 H 0765951042) GLUCOSE (test code = 128 mg/dL 70-110 H 6773669523) CREATININE (test code = 1.43 mg/dL 0.5-1.04 H 4756854732) CALCIUM (test code = 8.5 mg/dL 8.6-10.6 L 3613123858) eGFR Calculation mL/min/1.73m2 (Non-) (test code = 0039655664) eGFR Calculation mL/min/1.73m2 () (test code = 9358465178) JACI (test code = JACI) Association of [...] tests). Lab Interpretation Abnormal (test code = 48228-6) [facility]2020-08-12 09:45:00 Test Item Value Reference Range Interpretation Comments MAGNESIUM (test code = 9861561414) 1.9 mg/dL 1.7-2.4 Lab Interpretation (test code = Normal 34940-5) [facility] (NA, K, CL, CO2, GLUCOSE, BUN, CREATININE, CA)2019-11-22 09:45:00 Test Item Value Reference Range Interpretation Comments NA (test code = 139 mmol/L 135-145 6430807521) K (test code = 5.1 mmol/L 3.5-5 H 9015499203) CL (test code = 115 mmol/L 98-108 H 5223407027) CO2 TOTAL (test code = 21 mmol/L 23-31 L 3522682378) AGAP (test code = 2-16 2384997074) BUN (test code = 35 mg/dL 7-23 H 0814822769) GLUCOSE (test code = 128 mg/dL 70-110 H 7369876072) CREATININE (test code = 1.43 mg/dL 0.5-1.04 H 4030062117) CALCIUM (test code = 8.5 mg/dL 8.6-10.6 L 1985717970) eGFR Calculation mL/min/1.73m2 (Non-) (test code = 5424731168) eGFR Calculation mL/min/1.73m2 () (test code = 5636703659) JACI (test code = JACI) Association of [...] tests). Lab Interpretation Abnormal (test code = 26876-3) [facility]2020-08-12 09:45:00 Test Item Value Reference Range Interpretation Comments MAGNESIUM (test code = 7141858176) 1.9 mg/dL 1.7-2.4 Lab Interpretation (test code = Normal 20413-5) [facility] with [id number] 09:34:00 Test Item Value Reference Range Interpretation [...] (test code = 52.1 fL 39-49.9 H 23085-7) RDW-CV (test code = 15.1 % 12-15.5 788-0) PLT (test code = See_Comment [Automated 777-3) message] The sy stem which generated this result transmitted reference range : 166 - 358 10*3/ ?L. The reference r louise was not used to interpret this result as normal/abnormal . MPV (test code = 10.6 fL 9.5-12.9 12404-6) NRBC/100 WBC (test See_Comment [Automat ed code = 9327829486) message] The system which generated this result transmitted reference range : 0.0 - 10.0 /100 WBCs. The refer ence range was not u sed to interpret th is result as normal/abnormal . NRBC x10^3 (test code <0.01 See_Comment [Auto mated = 8188596991) message] The s ystem which generated this result transmitted reference range : 10*3/?L. The reference range was not used to interpret this result as normal/abnormal . GRAN MAT (NEUT) % 71.4 % (test code = 770-8) IMM GRAN % (test code 0.40 % = 9126656233) LYMPH % (test code = 15.6 % 736-9) MONO % (test code = 8.4 % 5905-5) EOS % (test code = 3.8 % 713-8) BASO % (test code = 0.4 % 706-2) GRAN MAT x10^3(ANC) 8.04 10*3/uL 1.88-7.09 H (test code = 1239520473) IMM GRAN x10^3 (test 0.04 10*3/uL 0-0.06 code = 4811799816) LYMPH x10^3 (test code 1.75 10*3/uL 1.32-3.29 = 731-0) MONO x10^3 (test code 0.95 10*3/uL 0.33-0.92 H = 742-7) EOS x10^3 (test code = 0.43 10*3/uL 0.03-0.39 H 711-2) BASO x10^3 (test code 0.04 10*3/uL 0.01-0.07 = 704-7) Lab Interpretation Abnormal (test code = 05561-3) [facility] with [id number] 09:34:00 Test Item Value Reference Range Interpretation [...] (test code = 52.1 fL 39-49.9 H 51362-8) RDW-CV (test code = 15.1 % 12-15.5 788-0) PLT (test code = See_Comment [Automated 777-3) message] The sy stem which generated this result transmitted reference range : 166 - 358 10*3/ ?L. The reference r louise was not used to interpret this result as normal/abnormal . MPV (test code = 10.6 fL 9.5-12.9 79373-9) NRBC/100 WBC (test See_Comment [Automat ed code = 2989898381) message] The system which generated this result transmitted reference range : 0.0 - 10.0 /100 WBCs. The refer ence range was not u sed to interpret th is result as normal/abnormal . NRBC x10^3 (test code <0.01 See_Comment [Auto mated = 5162363271) message] The s ystem which generated this result transmitted reference range : 10*3/?L. The reference range was not used to interpret this result as normal/abnormal . GRAN MAT (NEUT) % 71.4 % (test code = 770-8) IMM GRAN % (test code 0.40 % = 4804634509) LYMPH % (test code = 15.6 % 736-9) MONO % (test code = 8.4 % 5905-5) EOS % (test code = 3.8 % 713-8) BASO % (test code = 0.4 % 706-2) GRAN MAT x10^3(ANC) 8.04 10*3/uL 1.88-7.09 H (test code = 0758020769) IMM GRAN x10^3 (test 0.04 10*3/uL 0-0.06 code = 6483861863) LYMPH x10^3 (test code 1.75 10*3/uL 1.32-3.29 = 731-0) MONO x10^3 (test code 0.95 10*3/uL 0.33-0.92 H = 742-7) EOS x10^3 (test code = 0.43 10*3/uL 0.03-0.39 H 711-2) BASO x10^3 (test code 0.04 10*3/uL 0.01-0.07 = 704-7) Lab Interpretation Abnormal (test code = 06241-3) [facility]ERVOUS [facility] (MEDICAL INSURANCE CODING SPECIALIST) [id number] 19:51:24Impression: Successful stent-assisted coiling of a large [...] radial artery in the usual sterile fashion, u10-ibbil Cook micro puncture needle was used to puncture the radial arteryand after brisk return of ?arterial blood, a 0.018 inch wire w as threadedvia the needle, after the 6-Zimbabwean vascular sheath was then advanced overthe wire and connected to a pressurized arterial saline bag infusing 4units heparin/ML. A 6-Zimbabwean benchmark catheter, was then advanced over a [...] Placement of intracranial stent in the left COMPETITIVE INTELLIGENCE ANALYST and basilar artery. 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 Following the diagnostic angiography and 3-D rotational angiography, theguide catheter was left in the subclavian artery due to significantstenosis at the vertebral artery origin. A SL 10 microcatheter was used totraverse the lesion and navigated into the leftPCA. A Neuroform stent wasdeployed from the left COMPETITIVE INTELLIGENCE ANALYST into the basilar artery. The measurement of thes tent was 3 mm x 24 mm. Next the same micro-catheter was used to traversethe stent into the aneurysm.3 coils were used to embolize the aneurysm. After each coil, a control run was performed to ensure there is nocompromise of the COMPETITIVE INTELLIGENCE ANALYST and the basilar artery. Final run showed [...] well-positioned from the basilar artery to left COMPETITIVE INTELLIGENCE ANALYST. There isno stenosis or thrombus seen. It [...] aneurysm. There isadequate occlusion of the aneurysm. [facility], Radiant Results Inft User - 11/21/2019 [...] radial artery in the usual sterile fashion, a67-wfugt Cook micro puncture needle was used to puncture the radial arteryand after brisk returnof arterial blood, a 0.018 inch wire was threadedvia the needle, after the 6-Zimbabwean vascular sheathwas then advanced overthe wire and connected to a pressurized arterial saline bag infusing 4units heparin/ML.A 6-Zimbabwean benchmark catheter, was then advanced over a [...] Placement of intracranial stent in the left COMPETITIVE INTELLIGENCE ANALYST and basilar artery.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 A SL 10 microcatheter was used totraverse the lesionand navigated into the left COMPETITIVE INTELLIGENCE ANALYST. A Neuroform stent wasdeployed from the left COMPETITIVE INTELLIGENCE ANALYST into the basilar artery. The measurement of thestent was 3 mm x 24 mm. Next the same micro-catheter was used to traversethe stent into the aneurysm. 3 coils were used to embolize the aneurysm. After each coil, a control run was performed to ensure there is nocompromise of the COMPETITIVE INTELLIGENCE ANALYST and the basilar artery. Final run showed [...] well-positioned from the basilar artery to left COMPETITIVE INTELLIGENCE ANALYST. There isno stenosis or thrombusseen. It bridges [...] assisted coiling of a large basilar apex aneurysm.[facility] C[facility]TRAL NERVOUS SYSTEM (MEDICAL INSURANCE CODING SPECIALIST) [id number] 19:51:24 Impression: Successful stent-assisted coiling of a [...] radial artery in the usual sterile fashion, q42-zwkin Cook micro puncture needle was used to puncture the radial arteryand after brisk return of ?arterial blood, a 0.018 inch wire was threadedvia the needle, after the 6-Zimbabwean vascular sheath was then advanced overthe wire and connected to a pressurized arterial saline bag infusing 4units heparin/ML. A 6- Zimbabwean benchmark catheter, was then advanced over a [...] Placement of intracranial stent in the left COMPETITIVE INTELLIGENCE ANALYST and basilar artery. 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 Following the diagnostic angiography and 3-D rotational angiography, theguide catheter was left in the subclavian artery due to significantstenosis at the vertebral artery origin. A SL 10 microcatheter was used totraverse the lesion and navigated into the leftPCA. A Neuroform stent wasdeployed from the left COMPETITIVE INTELLIGENCE ANALYST into the basilar artery. The measurement of thestent was 3 mm x 24 mm. Next the same micro- catheter was used to traversethe stent into the aneurysm.3 coils were used to embolize the aneurysm. After each coil, a control run was performed to ensure t here is nocompromise of the COMPETITIVE INTELLIGENCE ANALYST and the basilar artery. Final run showed [...] ell-positioned from the basilar artery to left COMPETITIVE INTELLIGENCE ANALYST. There isno stenosis or thrombus seen. It [...] aneurysm. There isadequate occlusion of the aneurysm. [facility], Radiant Results Inft User - 11/21/2019 [...] radial artery in the usual sterile fashion, a58-dxkrz Cook micro puncture needle was used to puncture the radial arteryand after brisk returnof arterial blood, a 0.018 inch wire was threadedvia the needle, after the 6-Zimbabwean vascular sheathwas then advanced overthe wire and connected to a pressurized arterial saline bag infusing 4units heparin/ML.A 6-Zimbabwean benchmark catheter, was then advanced over a [...] Placement of intracranial stent in the left COMPETITIVE INTELLIGENCE ANALYST and basilar artery.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 A SL 10 microcatheter was used totraverse the lesionand navigated into the left COMPETITIVE INTELLIGENCE ANALYST. A Neuroform stent wasdeployed from the left COMPETITIVE INTELLIGENCE ANALYST into the basilar artery. The measurement of thestent was 3 mm x 24 mm. Next the same micro-catheter was used to traversethe stent into the aneurysm. 3 coils were used to embolize the aneurysm. After each coil, a control run was performed to ensure there is nocompromise of the COMPETITIVE INTELLIGENCE ANALYST and the basilar artery. Final run showed [...] well-positioned from the basilar artery to left COMPETITIVE INTELLIGENCE ANALYST. There isno stenosis or thrombusseen. It bridges [...] assisted coiling of a large basilar apex aneurysm.[facility] ACT LOW [id number] 18:22:00 Test Item Value Reference Range Interpretation Comments ACTLR (test code = See_Comment H [Automat ed message] [id number]) The system Jambool generated this result transmitted ref erence range: 89 - 169 Seconds. The reference range was not used to int erpret this result as normal/abnormal . Lab Interpretation (test Abnormal code = 28011-8) [facility] LOW [id number] 18:22:00 Test Item Value Reference Range Interpretation Comments ACTLR (test code = See_Comment H [Automat ed message] 9770022310) The system Jambool generated this result transmitted ref erence range: 89 - 169 Seconds. The reference range was not used to int erpret this result as normal/abnormal . Lab Interpretation (test Abnormal code = 81118-3) [facility] Screen - ONCE [id number] 14:43:40 Test Item Value Reference Range Interpretation Comments ABO & RH (test code A Positive Performe d at [facility] = 20) Laboratory Serv [email or web address] [address] [id number] 4Toll Free: [phone] 266CLIA No. [id number] IAT (test code = Negative Performed a t [facility] 1185) Laboratory Serv [facility] [address] [place], [place] [address] 4Toll Free: [phone] 266CLIA No. [id number] [facility] - ONCE [id number] 14:43:40 Test Item Value Reference Range Interpretation Comments ABO & RH (test code A Positive Performe d at [facility] = 20) Laboratory Serv ices - [facility] [address] [place], [place] [address] 4Toll Free: [phone] 266CLIA No. [id number] IAT (test code = Negative Performed a t [facility] 1185) Laboratory Serv ices - [facility] [place], [place] [address] 4Toll Free: [phone] 266CLIA No. [id number] [facility] (NA, K, CL, CO2, GLUCOSE, BUN, CREATININE, CA)2019-11-21 14:33:00 Test Item Value Reference Range Interpretation Comments NA (test code = 140 mmol/L 135-145 2924384151) K (test code = 5.3 mmol/L 3.5-5 H Slight 9238104739) hemolysis CL (test code = 112 mmol/L 98-108 H 6332689793) CO2 TOTAL (test code 21 mmol/L 23-31 L = 4974610438) AGAP (test code = 2-16 0691457205) BUN (test code = 43 mg/dL 7-23 H Slight 3143651236) hemolysis GLUCOSE (test code = 135 mg/dL 70-110 H 6058326338) CREATININE (test code 1.40 mg/dL 0.5-1.04 H = 0153537726) CALCIUM (test code = 9.5 mg/dL 8.6-10.6 1655393244) eGFR Calculation mL/min/1.73m2 (Non-) (test code = 1488071543) eGFR Calculation mL/min/1.73m2 () (test code = 7793526461) JACI (test code = JACI) Association of [...] tests). Lab Interpretation Abnormal (test code = 00279-7) [facility] METABOLIC PANEL (NA, K, CL, CO2, GLUCOSE, BUN, CREATININE, CA)2019-11-21 14:33:00 Test Item Value Reference Range Interpretation Comments NA (test code = 140 mmol/L 135-145 9336038051) K (test code = 5.3 mmol/L 3.5-5 H Slight 2151596158) hemolysis CL (test code = 112 mmol/L 98-108 H 7192942210) CO2 TOTAL (test code 21 mmol/L 23-31 L = 0831867348) AGAP (test code = 2-16 8826779598) BUN (test code = 43 mg/dL 7-23 H Slight 2517825683) hemolysis GLUCOSE (test code = 135 mg/dL 70-110 H 5873166757) CREATININE (test code 1.40 mg/dL 0.5-1.04 H = 0603603508) CALCIUM (test code = 9.5 mg/dL 8.6-10.6 4167887350) eGFR Calculation mL/min/1.73m2 (Non-) (test code = 1158961880) eGFR Calculation mL/min/1.73m2 () (test code = 8484134088) JACI (test code = JACI) Association of [...] tests). Lab Interpretation Abnormal (test code = 36272-3) [facility] / [id number] 14:31:00 Test Item Value Reference Range Interpretation Comments PROTIME PATIENT (test See_Comment [Auto mated message] code = 5964-2) The system Springpad generated this result transmitted ref erence range: 10.1 - 1 2.6 Seconds. The re ference range was not u sed to interpret this result as normal/abnor mal. INR (test code = 6301-6) Nor mal INR <1.1; Warfarin Therap eutic range 2.0 to 3. 0 or 2.5 to 3.5, dep ending upon the indica tions. Lab Interpretation (test Normal code = 76226-2) [facility] / [id number] 14:31:00 Test Item Value Reference Range Interpretation Comments PROTIME PATIENT (test See_Comment [Auto mated message] code = 5964-2) The system Springpad generated this result transmitted ref erence range: 10.1 - 1 2.6 Seconds. The re ference range was not u sed to interpret this result as normal/abnor mal. INR (test code = 6301-6) Nor mal INR <1.1; Warfarin Therap eutic range 2.0 to 3. 0 or 2.5 to 3.5, dep ending upon the indica tions. Lab Interpretation (test Normal code = 39558-7) [facility] WITH [id number] 14:21:00 Test Item Value Reference Range Interpretation [...] (test code = 51.1 fL 39-49.9 H 98466-3) RDW-CV (test code = 14.8 % 12-15.5 788-0) PLT (test code = See_Comment [Automated 777-3) message] The sy stem which generated this result transmitted reference range : 166 - 358 10*3/ ?L. The reference r louise was not used to interpret this result as normal/abnormal . MPV (test code = 10.8 fL 9.5-12.9 32024-1) NRBC/100 WBC (test See_Comment [Automat ed code = 9430475458) message] The system which generated this result transmitted reference range : 0.0 - 10.0 /100 WBCs. The refer ence range was not u sed to interpret th is result as normal/abnormal . NRBC x10^3 (test code <0.01 See_Comment [Auto mated = 0383745395) message] The s ystem which generated this result transmitted reference range : 10*3/?L. The reference range was not used to interpret this result as normal/abnormal . GRAN MAT (NEUT) % 69.7 % (test code = 770-8) IMM GRAN % (test code 0.90 % = 0885708537) LYMPH % (test code = 15.9 % 736-9) MONO % (test code = 9.4 % 5905-5) EOS % (test code = 3.7 % 713-8) BASO % (test code = 0.4 % 706-2) GRAN MAT x10^3(ANC) 8.00 10*3/uL 1.88-7.09 H (test code = 8818915419) IMM GRAN x10^3 (test 0.10 10*3/uL 0-0.06 H code = 8576752908) LYMPH x10^3 (test code 1.83 10*3/uL 1.32-3.29 = 731-0) MONO x10^3 (test code 1.08 10*3/uL 0.33-0.92 H = 742-7) EOS x10^3 (test code = 0.43 10*3/uL 0.03-0.39 H 711-2) BASO x10^3 (test code 0.05 10*3/uL 0.01-0.07 = 704-7) Lab Interpretation Abnormal (test code = 82435-1) [facility] WITH [id number] 14:21:00 Test Item Value Reference Range Interpretation [...] (test code = 51.1 fL 39-49.9 H 85011-4) RDW-CV (test code = 14.8 % 12-15.5 788-0) PLT (test code = See_Comment [Automated 777-3) message] The sy stem which generated this result transmitted reference range : 166 - 358 10*3/ ?L. The reference r louise was not used to interpret this result as normal/abnormal . MPV (test code = 10.8 fL 9.5-12.9 56572-2) NRBC/100 WBC (test See_Comment [Automat ed code = 0544510645) message] The system which generated this result transmitted reference range : 0.0 - 10.0 /100 WBCs. The refer ence range was not u sed to interpret th is result as normal/abnormal . NRBC x10^3 (test code <0.01 See_Comment [Auto mated = 2741633194) message] The s ystem which generated this result transmitted reference range : 10*3/?L. The reference range was not used to interpret this result as normal/abnormal . GRAN MAT (NEUT) % 69.7 % (test code = 770-8) IMM GRAN % (test code 0.90 % = 9294412445) LYMPH % (test code = 15.9 % 736-9) MONO % (test code = 9.4 % 5905-5) EOS % (test code = 3.7 % 713-8) BASO % (test code = 0.4 % 706-2) GRAN MAT x10^3(ANC) 8.00 10*3/uL 1.88-7.09 H (test code = 1550856259) IMM GRAN x10^3 (test 0.10 10*3/uL 0-0.06 H code = 9203254959) LYMPH x10^3 (test code 1.83 10*3/uL 1.32-3.29 = 731-0) MONO x10^3 (test code 1.08 10*3/uL 0.33-0.92 H = 742-7) EOS x10^3 (test code = 0.43 10*3/uL 0.03-0.39 H 711-2) BASO x10^3 (test code 0.05 10*3/uL 0.01-0.07 = 704-7) Lab Interpretation Abnormal (test code = 18649-3) [facility] ([facility]) 2019-09-07 06:43:00 Test Item Value Reference Range Interpretation Comments SARS-COV2/RT-PCR (test Not Detected Not Detected, Negative code = 5256854) SARS-COV-2 PERFORMING LAB [facility] (test code = 3879510) Negative results do not preclude SARS-CoV-2 infection [...] of the Act.Fact Sheet for Healthcare Pro viders:https://www.[employer]com/Documents/Xpert%20Xpress%20SARS%20CoV-2/Fact%20Sh eets/302-3802%09XWEF-VPJ-6%20HEALTHCARE%20PROVIDERS%20FACT%20SHEET.pdfFact Sheet for Healthcare Patients:https://www.[employer]/Documents/Xpert%20Xpress%20SARS%20CoV-2/Fact%20Sheets/302-3801%20SARS-COV -2%20PATIENT%20FACT%20SHEET.pdfPerforming Laboratory:[facility] [place], [place] [id number] PLATELET AGGREGATION 2019-09-06 11:11:00 Test Item Value Reference Range Interpretation Comments POC-P2Y12 PLATELET AGG (BEAKER) (test 79 PRU code = 2303) RANGE INFORMATION: PRU reference range is 194-418. Post Drug Results: Lower PRU levels are associated with expected antiplatelet effect. Values may be below the stated reference range above. The post-drug PRU values reported in the Ver[employer]Now P2Y12 package insert are 18-435.POCT-ASPIRIN PLATELET [id number] 11:08:00 Test Item Value Reference Range Interpretation Comments POC-ASPIRIN PLATELET AGG (BEAKER) 385 ARU (test code = 2302) RANGE INFORMATION: 350-549 ARU Therapeutic range for platelet function. 550-700 ARU Non-Therapeutic range for platelet function.BASIC METABOLIC [id number] 10:35:00 Test Item Value Reference Range Interpretation [...] S NOT APPLICABLE FOR DIALYSIS PATIEN TS. Green Prize Packer ID - MALOU FCBC W/PLT COUNT & AUTO [id number] 10:33:00 Test Item Value Reference Range Interpretation [...] 0-1 PERCENT (BEAKER) (test code = 2801) [id number] 10:12:00 Test Item Value Reference Range Interpretation [...] is2.5-3.5 for patients wiht mechanical heart valves.POCT-GLUCOSE [id number] 12:47:00 Test Item Value Reference Range Interpretation Comments POC-GLUCOSE METER 133 mg/dL 70-110 H : TESTED A T [facility] 6720 (BEAKER) (test code [facility], = 1538) [address]: Green Prize Packer/Techni gretel ID = [id number] for TSEG GAI, TSIGHEREDA POCT-GLUCOSE [id number] 07:59:00 Test Item Value Reference Range Interpretation Comments POC-GLUCOSE METER 125 mg/dL 70-110 H : TESTED A T [facility] 6720 (BEAKER) (test code [facility], = 1538) [address]: Green Prize Packer/Techni gretel ID = [id number] for TSEG GAI, TSIGHEREDA POCT-GLUCOSE [id number] 21:06:00 Test Item Value Reference Range Interpretation Comments POC-GLUCOSE METER 192 mg/dL 70-110 H : TESTED A T [facility] 67[address] (BEAKER) (test code = [facility], 1538) [address]24[address]: Green Prize Packer/Techni gretel ID = [id number] for DE NNIS, MALIHA POCT-GLUCOSE [id number] 17:33:00 Test Item Value Reference Range Interpretation Comments POC-GLUCOSE METER 124 mg/dL 70-110 H : [facility] ([facility] (test code [facility], = 1538) [address]1427: Green Prize Packer/Techni gretel ID = [id number] for TSEG GAI, TSIGHEREDA POCT-GLUCOSE [id number] 11:50:00 Test Item Value Reference Range Interpretation Comments POC-GLUCOSE METER 102 mg/dL 70-110 : [facility] ([facility]) (test code [facility], = 1538) [address]: Green Prize Packer/Techni gretel ID = [id number] for TSEG GAI, TSIGHEREDA POCT-GLUCOSE [id number] 07:44:00 Test Item Value Reference Range Interpretation Comments POC-GLUCOSE METER 96 mg/dL 70-110 : [facility] (test code [facility], = 1538) 35922: Green Prize Packer/Techni gretel ID = [id number] for TSEG GAI, TSIGHEREDA POCT-GLUCOSE [id number] 22:28:00 Test Item Value Reference Range Interpretation Comments POC-GLUCOSE METER 201 mg/dL 70-110 H : Notified RN/MD: (GIFTY) (test code = TESTED AT [place] [address] 1538) [facility], [address]: Green Prize Packer/Techni gretel ID = [id number] for LATHBRIDGE, AMRITA ICE HEMOGLOBIN AND [id number] 11:01:00 Test Item Value Reference Range Interpretation Comments HEMOGLOBIN ([facility]) (test code = 9.3 GM/DL 11.2-15.7 L 410) HEMATOCRIT ([facility]) (test code = 28.8 % 34.1-44.9 L 411) Green Prize Packer ID - 6000POCT-GLUCOSE [id number] 23:42:00 Test Item Value Reference Range Interpretation Comments POC-GLUCOSE METER 158 mg/dL 70-110 H : Notified RN/MD: (GIFTY) (test code = TESTED AT [place] [address] 1538) [facility], [address]: Green Prize Packer/Techni gretel ID = [id number] for LATAMRITA WHITING ICE POCT-GLUCOSE [id number] 12:06:00 Test Item Value Reference Range Interpretation Comments POC-GLUCOSE METER 157 mg/dL 70-110 H : TESTED A T [facility] 6720 (BEAKER) (test code [facility], = 1538) [address]: Green Prize Packer/Techni gretel ID = [id number] for CHARLOTTE BRYANEREDEva [id number] 06:57:00 Test Item Value Reference Range Interpretation Comments MAGNESIUM (BEAKER) (test code = 1.7 mg/dL 1.6-2.6 627) Green Prize Packer ID - KEARA WBASIC METABOLIC [id number] 06:57:00 Test Item Value Reference Range Interpretation [...] S NOT APPLICABLE FOR DIALYSIS PATIEN TS. Green Prize Packer ID - KEARA WHEMOGLOBIN AND [id number] 05:42:00 Test Item Value Reference Range Interpretation Comments HEMOGLOBIN (BEAKER) (test code = 8.3 GM/DL 11.2-15.7 L 410) HEMATOCRIT (BEAKER) (test code = 26.4 % 34.1-44.9 L 411) Green Prize Packer ID - [id number]-GLUCOSE [id number] 22:26:00 Test Item Value Reference Range Interpretation Comments POC-GLUCOSE METER 137 mg/dL 70-110 H : TESTED A T [facility] 6720 (BEAKER) (test code = [facility], 1538) [address]: Green Prize Packer/Techni gretel ID = [id number] for MALLORY GRAHAM RAD, CHEST, 1 VIEW, NON [id number] 21:41:00Reason for exam:->shortness of breath, coughShould this [...] Annelise Davis Verified Date/Time: 05/25/2019 21:41:23 POCT-GLUCOSE [id number] 16:37:00 Test Item Value Reference Range Interpretation Comments POC-GLUCOSE METER 217 mg/dL 70-110 H : TESTED A T [facility] 6720 (BEAKER) (test code = [facility], 153) [address]: Green Prize Packer/Techni gretel ID = [id number] for RO DGERS, JAMECA POCT-GLUCOSE [id number] 13:05:00 Test Item Value Reference Range Interpretation Comments POC-GLUCOSE METER 196 mg/dL 70-110 H : TESTED A T [facility] 6720 (BEAKER) (test code = [facility], 1538) [address]: Green Prize Packer/Techni gretel ID = [id number] for RO DGERS, JAMECA POCT-GLUCOSE [id number] 08:49:00 Test Item Value Reference Range Interpretation Comments POC-GLUCOSE METER 95 mg/dL 70-110 : TESTED A T [facility] 6720 (BEAKER) (test code = [facility], 1538) [address]: Green Prize Packer/Techni gretel ID = [id number] for RODG ERS, JAMECA HEMOGLOBIN AND [id number] 05:24:00 Test Item Value Reference Range Interpretation Comments HEMOGLOBIN (BEAKER) (test code = 8.4 GM/DL 11.2-15.7 L 410) HEMATOCRIT (BEAKER) (test code = 27.0 % 34.1-44.9 L 411) Green Prize Packer ID - [id number]-GLUCOSE [id number] 22:08:00 Test Item Value Reference Range Interpretation Comments POC-GLUCOSE METER 164 mg/dL 70-110 H : TESTED A T [facility] 6720 (BEAKER) (test code = [facility], 1538) [address]: Green Prize Packer/Techni gretel ID = [id number] for MALLORY GRAHAM POCT-GLUCOSE [id number] 12:57:00 Test Item Value Reference Range Interpretation Comments POC-GLUCOSE METER 156 mg/dL 70-110 H : TESTED A T [facility] 6720 (BEAKER) (test code = [facility], 1538) [address]: Green Prize Packer/Techni gretel ID = [id number] for NITA GRANGER POCT-GLUCOSE [id number] 08:38:00 Test Item Value Reference Range Interpretation Comments POC-GLUCOSE METER 102 mg/dL 70-110 : TESTED A T [facility] 6720 (BEAKER) (test code = [facility], 1538) [address]: Green Prize Packer/Techni gretel ID = [id number] for NITA GRANGER BASIC METABOLIC [id number] 06:30:00 Test Item Value Reference Range Interpretation [...] S NOT APPLICABLE FOR DIALYSIS PATIEN TS. Green Prize Packer ID - GALAPCBC (HEMOGRAM ONLY)2019-05-24 05:51:00 Test [...] 0-0 (BEAKER) (test code = 413) POCT-GLUCOSE [id number] 18:38:00 Test Item Value Reference Range Interpretation Comments POC-GLUCOSE METER 243 mg/dL 70-110 H : Notified RN/MD: (MAKENNAAKER) (test code = TESTED AT [facility] 6902 1182) [facility], [address]: Green Prize Packer/Techni gretel ID = [id number] for Keiry Owens BASIC METABOLIC [id number] 06:25:00 Test Item Value Reference Range Interpretation [...] S NOT APPLICABLE FOR DIALYSIS PATIEN TS. Green Prize Packer ID - GALAPCBC (HEMOGRAM ONLY)2019-05-23 05:56:00 Test [...] 0-0 (BEAKER) (test code = 413) POCT-GLUCOSE [id number] 00:29:00 Test Item Value Reference Range Interpretation Comments POC-GLUCOSE METER 126 mg/dL 70-110 H : TESTED A T [facility] 6720 (BEAKER) (test code = [place], 1538) [address]: Green Prize Packer/Techni gretel ID = [id number] for MASON PHELPS CBC W/PLT COUNT & AUTO [id number] 06:36:00 Test Item Value Reference Range Interpretation [...] PERCENT (BEAKER) (test code = 2801) POCT-GLUCOSE [id number] 06:11:00 Test Item Value Reference Range Interpretation Comments POC-GLUCOSE METER 111 mg/dL 70-110 H : TESTED A T [facility] 6720 (BEAKER) (test code = LEONARDMIKE Mackenzie [facility], 1538) [address]: Green Prize Packer/Techni gretel ID = [id number] for RAFAEL CARBAJAL POCT-GLUCOSE [id number] 18:56:00 Test Item Value Reference Range Interpretation Comments POC-GLUCOSE METER 137 mg/dL 70-110 H : Notified RN/MD: (BEAKER) (test code = TESTED AT [place] [id number] 1538) [facility], [address]: Green Prize Packer/Techni gretel ID = [id number] for DANDY ESTRADA [id number] 13:58:00 Test Item Value Reference Range Interpretation Comments POTASSIUM (BEAKER) (test code = 3.9 meq/L 3.5-5.1 379) Green Prize Packer ID - MALOU [id number] 13:58:00 Test Item Value Reference Range Interpretation Comments MAGNESIUM (BEAKER) (test code = 1.8 mg/dL 1.6-2.6 627) Green Prize Packer ID Ross WEST[place]ALL FCBC (HEMOGRAM ONLY)2019-05-21 13:41:00 [...] 0-0 (BEAKER) (test code = 413) POCT-GLUCOSE [id number] 13:11:00 Test Item Value Reference Range Interpretation Comments POC-GLUCOSE METER 164 mg/dL 70-110 H : Notified RN/MD: (BEAKER) (test code = TESTED AT [facility] 4838 8652) [facility], [address]: Green Prize Packer/Techni gretel ID = [id number] for DANDY ESTRADA URIC [id number] 10:43:00 Test Item Value Reference Range Interpretation Comments URIC ACID (BEAKER) (test code = 5.7 mg/dL 2.6-7.2 773) Green Prize Packer ID - MALOU FBASIC METABOLIC [id number] 06:40:00 Test Item Value Reference Range Interpretation [...] S NOT APPLICABLE FOR DIALYSIS PATIEN TS. Green Prize Packer ID - KEARA WPOCT-GLUCOSE [id number] 06:37:00 Test Item Value Reference Range Interpretation Comments POC-GLUCOSE METER 156 mg/dL 70-110 H : TESTED A T [facility] 6720 (BEAKER) (test code = [place], 1538) [address]: Green Prize Packer/Techni gretel ID = [id number] for VA RELA, RAJ CBC (HEMOGRAM ONLY)2019-05-21 [...] 0-0 (BEAKER) (test code = 413) POCT-GLUCOSE [id number] 00:42:00 Test Item Value Reference Range Interpretation Comments POC-GLUCOSE METER 155 mg/dL 70-110 H : TESTED A T [facility] 6720 (BEAKER) (test code = HUMBERTO Mackenzie [facility], 1538) [address]: Green Prize Packer/Techni gretel ID = [id number] for VA RELA, RAJ [id number] 19:49:00 Test Item Value Reference Range Interpretation Comments FERRITIN (BEAKER) (test code = 361) 29 ng/mL 5-275 Green Prize Packer ID - TERRI [id number] 18:51:00 Test Item Value Reference Range Interpretation Comments TRANSFERRIN (BEAKER) (test code = 211 mg/dL 174-382 541) Green Prize Packer ID - TERRI CARL, TIBC, % SAT. (WITHOUT FERRITIN)2019-05-20 18:51:00 Test Item Value Reference Range Interpretation Comments IRON (BEAKER) (test code = 547) 14.0 ug/dL 40.0-160.0 L TOTAL IRON BINDING CAPACITY 264 ug/dL 250-450 (BEAKER) (test code = 769) IRON % SATURATION (2) (BEAKER) 5 % 20-55 L (test code = 2590) Green Prize Packer ID - TERRI GRAHAM, ANKLE, 1 VIEW, [id number] 18:09:00Reason for exam:- >left ankle painShould this be performed at the bedside?->YesFINAL REPORT TECHNIQUE: Two views of left ankle HISTORY: left ankle pain. COMPARISON: None. IMPRESSION:No acute displaced fracture or dislocation. Joint spaces are within normal limits.Minimal Achilles enthesopathy. Large plantar calcaneal spur and enthesopathy. Signed: Steven Houston MDReport Verified Date/Time: 05/20/2019 18:09:20 Reading Location: [address] Consult Reading Room CBC (HEMOGRAM ONLY)2019-05-20 [...] WBC 0-0 (BEAKER) (test code = 413) [id number] 05:29:00 Test Item Value Reference Range Interpretation Comments MAGNESIUM (BEAKER) 1.9 mg/dL 1.6-2.6 Specimen slightly (test code = 627) hemolyzed Green Prize Packer ID - TERRI [id number] 05:29:00 Test Item Value Reference Range Interpretation Comments PHOSPHORUS (BEAKER) 3.3 mg/dL 2.3-4.7 Specimen slightly (test code = 604) hemolyzed Green Prize Packer ID - TERRI MBASIC METABOLIC [id number] 05:29:00 Test Item Value Reference Range Interpretation [...] S NOT APPLICABLE FOR DIALYSIS PATIEN TS. Green Prize Packer ID - TERRI MCBC (HEMOGRAM ONLY)2019-05-20 04:51:00 [...] 0-0 (BEAKER) (test code = 413) POCT-GLUCOSE [id number] 18:36:00 Test Item Value Reference Range Interpretation Comments POC-GLUCOSE METER 101 mg/dL 70-110 : TESTED A T [facility] 6720 (BEAKER) (test code = [place], 1538) [address]: Green Prize Packer/Techni gretel ID = [id number] for DANDY ESTRADA CBC (HEMOGRAM ONLY)2019-05-19 18:33:00 [...] 0-0 (BEAKER) (test code = 413) POCT-GLUCOSE [id number] 12:30:00 Test Item Value Reference Range Interpretation Comments POC-GLUCOSE METER 130 mg/dL 70-110 H : TESTED A T [facility] 6720 (BEAKER) (test code = [place], 1538) [address]: Green Prize Packer/Techni gretel ID = [id number] for DANDY ESTRADA [id number] 08:02:00 Test Item Value Reference Range Interpretation Comments PHOSPHORUS (BEAKER) (test code = 2.5 mg/dL 2.3-4.7 604) Green Prize Packer ID - TERRI [id number] 08:02:00 Test Item Value Reference Range Interpretation Comments MAGNESIUM (BEAKER) (test code = 1.6 mg/dL 1.6-2.6 627) Green Prize Packer ID - TERRI MBASIC METABOLIC [id number] 08:02:00 Test Item Value Reference Range Interpretation [...] S NOT APPLICABLE FOR DIALYSIS PATIEN TS. Green Prize Packer ID - TERRI [id number] 07:40:00 Test Item Value Reference Range Interpretation Comments FIBRINOGEN LEVEL (BEAKER) (test 489 mg/dl 225-434 H code = 658) [id number] 07:40:00 Test Item Value Reference Range Interpretation [...] (BEAKER) (test code = 412) PLATELET COUNT ([facility]) (test 236 K/CU MM 150-450 code = 756) MEAN PLATELET VOLUME (BEAKER) 11.5 fL 9.4-12.3 (test code = 754) NUCLEATED RED BLOOD CELLS 0 /100 WBC 0-0 ([facility]) (test code = 413) POCT-GLUCOSE [id number] 00:26:00 Test Item Value Reference Range Interpretation Comments POC-GLUCOSE METER 110 mg/dL 70-110 : Notified RN/MD: ([facility]) (test code = TESTED AT [place] [address]) [facility], [address]: Green Prize Packer/Techni gretel ID = [id number] for CHRIS PEREZ POCT-GLUCOSE [id number] 18:22:00 Test Item Value Reference Range Interpretation Comments POC-GLUCOSE METER 127 mg/dL 70-110 H : [facility] ([facility]) (test code = [facility], 153) [address]: Green Prize Packer/Techni gretel ID = [id number] for RADHA DE LOS SANTOS POCT-GLUCOSE [id number] 12:25:00 Test Item Value Reference Range Interpretation Comments POC-GLUCOSE METER 171 mg/dL 70-110 H : [facility] ([facility]) (test code = [facility], 153) [address]: Green Prize Packer/Techni gretel ID = [id number] for RADHA DE LOS SANTOS [id number] 04:17:00 Test Item Value Reference Range Interpretation Comments PHOSPHORUS ([facility]) (test code = 2.0 mg/dL 2.3-4.7 L 604) Green Prize Packer ID Ross SARAH [id number] 04:17:00 Test Item Value Reference Range Interpretation Comments MAGNESIUM (BEAKER) (test code = 1.6 mg/dL 1.6-2.6 627) Green Prize Packer ID Ross SARAH WBASIC METABOLIC [id number] 04:17:00 Test Item Value Reference Range Interpretation [...] S NOT APPLICABLE FOR DIALYSIS PATIEN TS. Green Prize Packer ID Ross SARAH WCBC (HEMOGRAM ONLY)2019-05-18 03:55:00 [...] 0-0 (BEAKER) (test code = 413) POCT-GLUCOSE [id number] 18:43:00 Test Item Value Reference Range Interpretation Comments POC-GLUCOSE METER 139 mg/dL 70-110 H : TESTED A T [facility] 6720 (BEAKER) (test code = [place], 1538) [address]: Green Prize Packer/Techni gretel ID = [id number] for RADHA DE LOS SANTOS, CAROTID STENT W [id number] 15:10:00Reason for exam:->left carotid stenosisFINAL REPORT Date [...] guidance and strict sterile technique a 6 [place]an shuttle sheath was inserted through the right [...] of approximately 70%. A distal protective device ([employer]) was gently navigated through the stenotic segment [...] the stent to the arterial wall with taoism of the intraluminal flow and mild residual stenosis of approximately 20%. There is no evidence of platelet aggregation, or dissection. Intracranially there is taoism of good antegrade flow with no evidence [...] Carrasco Verified Date/Time: 05/17/2019 15:10:42 Reading Location: [facility] [id number] Neuro Angio Reading Room POCT-GLUCOSE [id number] 12:40:00 Test Item Value Reference Range Interpretation Comments POC-GLUCOSE METER 130 mg/dL 70-110 H : TESTED A T [facility] 6720 (BEAKER) (test code = HUMBERTO Mackenzie [facility], 1538) [address]: Green Prize Packer/Techni gretel ID = [id number] for RADHA DE LOS SANTOS PROTHROMBIN [id number] 11:08:00 Test Item Value Reference Range Interpretation [...] INR is2.5-3.5 for patients wiht mechanical heart valves.[id number] 09:19:00 Test Item Value Reference Range Interpretation Comments PARTIAL THROMBOPLASTIN TIME 37.6 seconds 22.5-36.0 H (BEAKER) (test code = 760) POCT-GLUCOSE [id number] 06:49:00 Test Item Value Reference Range Interpretation Comments POC-GLUCOSE METER 110 mg/dL 70-110 : TESTED A T [facility] 6720 (BEAKER) (test code = [place], 1538) [address]: Green Prize Packer/Techni gretel ID = [id number] for MASON PHELPS BASIC METABOLIC [id number] 05:59:00 Test Item Value Reference Range Interpretation [...] S NOT APPLICABLE FOR DIALYSIS PATIEN TS. Green Prize Packer ID - TERRI [id number] 05:35:00 Test Item Value Reference Range Interpretation Comments PARTIAL THROMBOPLASTIN TIME 38.3 seconds 22.5-36.0 H (BEAKER) (test code = 760) Prior to initiating heparinPOCT-P2Y12 PLATELET [id number] 05:34:00 Test Item Value Reference Range Interpretation Comments POC-P2Y12 PLATELET AGG (BEAKER) (test 230 PRU code = 2303) RANGE INFORMATION: PRU reference range is 194-418. Post Drug Results: Lower PRU levels are associated with expected antiplatelet effect. Values may be below the stated reference range above. The post-drug PRU values reported in the [employer] P2Y12 package insert are 18-435.POCT-ASPIRIN PLATELET [id number] 05:34:00 Test Item Value Reference Range Interpretation Comments POC-ASPIRIN PLATELET AGG (BEAKER) 564 ARU (test code = 2302) RANGE INFORMATION: 350-549 ARU Therapeutic range for platelet function. 550-700 ARU Non-Therapeutic range for platelet function.[id number] 05:34:00 Test Item Value Reference Range Interpretation [...] WBC 0-0 (BEAKER) (test code = 413) [id number] 02:03:00 Test Item Value Reference Range Interpretation Comments PARTIAL THROMBOPLASTIN TIME 35.8 seconds 22.5-36.0 (BEAKER) (test code = 760) 6 hours after starting heparin infusion and as indicated per sliding scalePOCT- GLUCOSE [id number] 00:00:00 Test Item Value Reference Range Interpretation Comments POC-GLUCOSE METER 109 mg/dL 70-110 : TESTED A T [facility] 67 (GIFTY) (test code = HUMBERTO Mackenzie [facility], 153) [address]: Green Prize Packer/Techni gretel ID = [id number] for RA MILLER MASON POCT-GLUCOSE [id number] 18:48:00 Test Item Value Reference Range Interpretation Comments POC-GLUCOSE METER 148 mg/dL 70-110 H : Notified RN/MD: (GIFTY) (test code = TESTED AT [facility] 6720 153) [facility], [address]: Green Prize Packer/Techni gretel ID = [id number] for STEWART MOORE [place], ANGIOGRAM, [id number] 16:45:00Reason for exam:->basilar tip aneurysmFINAL REPORT Date [...] guidance and strict sterile technique a 4 Zimbabwean femoral sheath was inserted into the right radial artery. Through the sheath a 4 [place]an [employer] catheter was then advanced over the wire [...] Carrascoeport Verified Date/Time: 05/16/2019 16:45:20 Reading Location: [place] [address] Neuro Angio Reading Room POCT-GLUCOSE [id number] 13:41:00 Test Item Value Reference Range Interpretation Comments POC-GLUCOSE METER 120 mg/dL 70-110 H : TESTED A T [facility] 6720 ([facility]) (test code = HUMBERTO Mackeznie [facility], 1538) [address]: Green Prize Packer/Techni gretel ID = [id number] for ESVIN LAMBERT [id number] 09:24:00 Test Item Value Reference Range Interpretation Comments PARTIAL THROMBOPLASTIN TIME 36.3 seconds 22.5-36.0 H ([facility]) (test code = 760) 6 hours after starting heparin infusion and as indicated [facility] ([facility] ONLY)2019-05-16 09:10:00 Test Item Value Reference Range Interpretation Comments WHITE BLOOD CELL COUNT ([facility]) 10.1 K/ L 3.5-10.5 (test code = 775) RED BLOOD CELL COUNT (AKER) 3.68 M/ L 3.93-5.22 L (test code [...] WBC 0-0 (BEAKER) (test code = 413) [id number] 03:01:00 Test Item Value Reference Range Interpretation [...] heart valves.Prior to initiating heparinPrior to initiating [id number] 03:01:00 Test Item Value Reference Range Interpretation Comments PARTIAL THROMBOPLASTIN TIME 32.2 seconds 22.5-36.0 (BEAKER) (test code = 760) BASIC METABOLIC [id number] 02:58:00 Test Item Value Reference Range Interpretation [...] S NOT APPLICABLE FOR DIALYSIS PATIEN TS. Green Prize Packer ID - TERRI MPLATELET [id number] 02:45:00 Test Item Value Reference Range Interpretation Comments PLATELET COUNT (BEAKER) (test 231 K/CU MM 150-450 code = 756) Green Prize Packer ID - [id number], CEREBRAL PERFUSION [id number] 01:22:00FINAL REPORT CT cerebral perfusion analysis. Comparison: [...] approximately 1:20 AM 05/16/2018. Signed: Fabiano Garrett MDReport Verified Date/Time: 05/16/2019 01:22:48 [facility], CTANGIO [id number] 01:09:00 FINAL REPORT EXAM: CT, CT Angio, [...] approximately 1:05 AM 05/16/2019. Signed: Fabiano Garrett MDRjanineort Verified Date/Time: 05/16/2019 01:09:25 CT, CAROTID, ANGIO [...] Signed: Fabiano Garrett Verified Date/Time: 05/16/2019 01:09:25 [facility], BRAIN/STROKE PROTOCOL 2019-05-15 23:34:00FINAL REPORT [...] resident at 11:30 PM 05/15/2019. Signed: Fabiano Garrett Verified Date/Time: 05/15/2019 23:34:22 POCT-GLUCOSE [id number] 20:57:00 Test Item Value Reference Range Interpretation Comments POC-GLUCOSE METER 119 mg/dL 70-110 H : TESTED A T [facility] 6720 ([facility]) (test code = HUMBERTO Mackenzie [facility], 1538) [address]: Green Prize Packer/Techni gretel ID = [id number] for CARLINE HARDING PROTHROMBIN [id number] 19:47:00 Test Item Value Reference Range Interpretation [...] is2.5-3.5 for patients wiht mechanical heart valves.POCT-GLUCOSE [id number] 17:51:00 Test Item Value Reference Range Interpretation Comments POC-GLUCOSE METER 125 mg/dL 70-110 H : TESTED A T [facility] 6720 (BEAKER) (test code = [facility], 1538) [address]: Green Prize Packer/Techni gretel ID = [id number] for BR OWN, MARIA DEL CARMEN POCT-GLUCOSE [id number] 11:55:00 Test Item Value Reference Range Interpretation Comments POC-GLUCOSE METER 169 mg/dL 70-110 H : TESTED A T [facility] 6720 (BEAKER) (test code = [facility], [facility]8) [address]: Green Prize Packer/Techni gretel ID = [id number] for BR OWN, MARIA DEL CARMEN HEMOGLOBIN [id number] 10:46:00 Test Item Value Reference Range Interpretation Comments HEMOGLOBIN A1C (BEAKER) (test code = 5.8 % 4.3-6.1 368) POCT-GLUCOSE [id number] 08:50:00 Test Item Value Reference Range Interpretation Comments POC-GLUCOSE METER 134 mg/dL 70-110 H : TESTED A T [facility] 6720 (BEAKER) (test code = [facility], [facility]) [address]: Green Prize Packer/Techni gretel ID = [id number] for BR OWN, MARIA DEL CARMEN VITAMIN B12 AND [id number] 07:44:00 Test Item Value Reference Range Interpretation Comments VITAMIN B12 (BEAKER) (test code = 472 pg/mL 213819 774) FOLATE (BEAKER) (test code = 362) 19.4 ng/mL >=7.0 Green Prize Packer ID - MALOU FPOCT-GLUCOSE [id number] 06:57:00 Test Item Value Reference Range Interpretation Comments POC-GLUCOSE METER 114 mg/dL 70-110 H : TESTED A T [facility] 6720 (BEAKER) (test code = [facility], 1538) [address]: Green Prize Packer/Techni gretle ID = [id number] for DE NNIS, MALIHA LIPID [id number] 06:53:00 Test Item Value Reference Range Interpretation [...] Borderline 130-159 High 160-189 Very High >=190 Green Prize Packer ID - PIAYALBASIC METABOLIC [id number] 06:53:00 Test Item Value Reference Range Interpretation [...] S NOT APPLICABLE FOR DIALYSIS PATIEN TS. Green Prize Packer ID - PIAYA LCBC (HEMOGRAM ONLY)2019-05-15 06:29:00 [...] (test code = 413) MR, BRAIN, WITHOUT [id number] 04:06:00FINAL REPORT EXAM: MR, BRAIN, WITHOUT CONTRAST [...] Rosario MDReport Verified Date/Time: 05/15/2019 04:06:56 POCT-GLUCOSE [id number] 21:18:00 Test Item Value Reference Range Interpretation Comments POC-GLUCOSE METER 95 mg/dL 70-110 : TESTED A T [facility] 6720 (BEAKER) (test code = [place], 1538) [address]: Green Prize Packer/Techni gretel ID = [id number] for MALIHA COWAN BASIC METABOLIC [id number] 14:37:00 Test Item Value Reference Range Interpretation [...] APPLICABLE FOR DIALYSIS PATIEN TS. BASIC METABOLIC [id number] 13:34:00 Test Item Value Reference Range Interpretation [...] S NOT APPLICABLE FOR DIALYSIS PATIEN TS. [id number] 12:49:00 Test Item Value Reference Range Interpretation [...] mechanical heart valves.CBC W/PLT COUNT & AUTO [id number] 12:48:00 Test Item Value Reference Range Interpretation [...] % 0-1 PERCENT (BEAKER) (test code = 6112)"
[2021-07-17 18:46] LABS: Absolute Lymphocytes (CBC) 2.2 K/uL (0.7-4.9); Hematocrit 37.8 % (36.0-45.0); MPV 8.9 fL (7.6-11.3); RBC Red Blood Cell Count 4.24 M/uL (3.86-4.86)
[2021-07-17 19:00] LABS: Albumin 3.3 g/dL (3.4-5.0); Bilirubin Total 0.2 mg/dL (0.2-1.0); Potassium 5.5 mmol/L (3.5-5.1); Protein, Total 8.4 g/dL (6.4-8.2)
[2021-07-17] MEDS ORDERED: FAMOTIDINE 20 MG/2 ML VIAL IV ONE (19:03)
[2021-07-17] MEDS ORDERED: NA CHLORIDE 0.9% 500 ML ONE (19:03)
[2021-07-17] MEDS ORDERED: ONDANSETRON 4 MG/2 ML VIAL ONE (19:03)
--- NOTE | 2021-07-17 20:22 | RAD REPORT ---
EXAM DESCRIPTION: CT - Abdomen Pelvis Wo Contrast - 07/17/2021 7:56 pm CLINICAL HISTORY: Abd pain;Nausea / vomiting Dysuria, history of kidney infections COMPARISON: <Comparisons> TECHNIQUE: Axial [address] imaging of the abdomen and pelvis was performed without IV contrast. No IV contrast was given because of allergy, abnormal renal function, patient refusal or physician re quest. No oral contrast administered. All CT scans are performed using dose optimization technique as appropriate and may include automated exposure control or mA/KV adjustment according to patient size. FINDINGS: No suspicious findings in the lung bases. No focal liver lesions seen on noncontrast imaging. Left lobe is prominent in size with normal size c audate lobe. No nodularity or other finding of cirrhosis. This is a stable presentation. Spleen and p ancreas show no suspicious findings. Gallbladder is absent. No biliary tree dilatation. Numerous clip s are seen near the duodenal bulb pancreatic head junction. These are new from 2017. No hydronephrosis or suspicious renal mass. No obstructing or nonobstructing calculi. A 4.3 centimete r thin-walled cyst is present projecting from the lower pole of the right kidney. Both kidneys show s mall round low-density masses that are most likely cysts but are not fully characterized. There is no perinephric stranding. No significant adrenal finding. Isodense renal masses and pyelonephritis awais ot be excluded in the absence of IV contrast. Urinary bladder is abnormal. There is thickened bladder wall with shaggy margins and congestion or edema in the adjacent fat. No bladder stone. Uterus and a trophic ovaries show no acute findings. Pelvic floor laxity is present. No stomach or small bowel acute finding. Fatty ileocecal valve is present. There is diverticulosis mi nimal in degree with no diverticulitis. No free air, free fluid or inflammatory stranding. No mass o r bulky lymphadenopathy. Fat only left inguinal hernia is present similar to comparison. Disc and bone degenerative changes are present. Left greater than right hip joint degenerative change s are present. No acute or pathologic process evident. IMPRESSION: Abnormal bladder wall findings are consistent with cystitis and can be correlated with c linical findings an UA findings. No hydronephrosis or obstructing calculi. Pyelonephritis cannot be excluded without use of contrast. There are no indirect findings for pyelonephritis. Nonacute findings are detailed in the body of the report. Full assessment is limited is the absence of IV contrast.
[2021-07-17 20:43] LABS: Urine Blood 3+ (Negative); Urine Glucose Negative (Negative); Urine Protein 3+ (Negative)
[2021-07-17 21:07] LABS: Urine Appearance TURBID (Clear); Urine Bilirubin Negative (Negative); Urine Blood 2+ (Negative); Urine Color Yellow (Yellow); Urine Glucose Negative (Negative); Urine Protein 3+ (Negative); Urine Urobilinogen 0.2 mg/dL (0.2-1.0)
[2021-07-17 21:31] LABS: Urine Microscopic Reflex ORDER UMIC
[2021-07-17 21:33] LABS: Urine Bacteria 20-50 /HPF (<20); Urine Mucus 2+ /HPF (NONE SEEN)
--- NOTE | 2021-07-17 21:37 | ER ---
Nurse's Notes [facility] Name: Bharati Lancaster Age: 81 yrs Sex: Female : 1940 Arrival Date: 07/17/2021 Time: 15:38 Bed 23 Private MD: Casa Morton V Diagnosis: UTI/ Urinary tract infection, site not specified;Abdominal pain, unspecified Presentation: 07/17 15:57 Chief complaint: Patient's son or daughter states: "She has been really nauseated the ab2 last 2 days, she threw up once last night and she has been having diarrhea for 2 days. Also, this morning I noticed she was c/o burning with urination and it smells and its cloudy.". Coronavirus screen: Vaccine status: Patient reports receiving the 2nd dose of the covid vaccine. Client denies travel out of the [place] in the last 14 days. At this time, the client does not indicate any symptoms associated with coronavirus-19. Ebola Screen: Patient negative for fever greater than or equal to 101.5 degrees Fahrenheit, and additional compatible Ebola Virus Disease symptoms Patient denies exposure to infectious person. Patient denies travel to an Ebola-affected area in the 21 days before illness onset. No symptoms or risks identified at this time. Initial Sepsis Screen: Does the patient meet any 2 criteria? No. Patient's initial sepsis screen is negative. Does the patient have a suspected source of infection? No. Patient's initial sepsis screen is negative. Risk Assessment: Do you want to hurt yourself or someone else? Patient reports no desire to harm self or others. Onset of symptoms is unknown. 15:57 Method Of Arrival: Wheelchair ab2 15:57 Acuity: GONZALEZ 3 ab2 Triage Assessment: 16:00 General: Appears in no apparent distress. Behavior is calm, cooperative, appropriate ab2 for age. Pain: Denies pain. EENT: No deficits noted. Neuro: No deficits noted. Level of Consciousness is awake, alert, obeys commands, Oriented to person, place, time, situation, Appropriate for age Sand System Operator are equal bilaterally Moves all extremities. Speech is normal, Facial symmetry appears normal. Cardiovascular: No deficits noted. Denies chest pain, shortness of breath, Patient's skin is warm and dry. Respiratory: Airway is patent Respiratory effort is even, unlabored, Respiratory pattern is regular, symmetrical. GI: Reports diarrhea, nausea, vomiting. : Reports burning with urination. Historical: - Allergies: 15:59 Baclofen; ab2 15:59 ceftriaxone; ab2 15:59 Codeine; ab2 15:59 Cyclobenzaprine; ab2 15:59 Darvocet-N 100; ab2 15:59 Demerol; ab2 15:59 Hydrocodone-Acetaminophen; ab2 15:59 Morphine; ab2 15:59 PENICILLINS; ab2 15:59 plastic tape; ab2 15:59 Propoxyphene N-Acetaminophen; ab2 - Home Meds: 21:21 allopurinol 100 mg Oral tab 1 tab once daily [Active]; marianeal - PMHx: 15:59 Aneurysm; chronic kidney disease; carpal tunnel; Diabetes - NIDDM; GERD; Gout; ab2 Hypothyroidism; Degenative join disease; DVT; CHF; Atrial Fib; Cerebrovascular accident; Cervical radicular pain; bladder infections; Hyperlipidemia; Hypertension; CVA; Cataract; - PSHx: 15:59 Aneurysm Mesh placement; Cholecystectomy; Left knee replacement; Stented artery; ab2 Appendectomy; - Immunization history:: Adult Immunizations up to date. - Social history:: Smoking status: Patient denies any tobacco usage or history of. Screenin:21 Abuse screen: Denies threats or abuse. Denies injuries from another. Nutritional marianela screening: No deficits noted. Tuberculosis screening: No symptoms or risk factors identified. Fall Risk None identified. Assessment: 21:17 Reassessment: No changes from previously documented assessment. I recv'd report on the marianela pt in room 23 \\T\\ 1900. She is in NAD. The straight cath was performed and purulent discharge was found in a great amount, as the urine slowed. The pt reported relief. The pt's daughter is at bedside and extremely doting. 21:20 Reassessment: It should be noted that the provider is aware of the bp. marianela 22:02 General: Appears in no apparent distress. Behavior is calm, cooperative, appropriate tw5 for age. GI: Abdomen is non-distended. 22:02 Reassessment: The pt was dc'd by my charge nurse. Her daughter is assisting her. marianela Vital Signs: 15:57 BP 108 / 45; Pulse 50; Resp 17; Temp 97.9(TE); Pulse Ox 99% on R/A; Weight 72.57 kg; ab2 Height 5 ft. 6 in. (167.64 cm); Pain 0/10; 18:26 BP 125 / 45; Pulse 47; Resp 18; Pulse Ox 99% ; ld1 21:17 BP 120 / 47; Pulse 42; Resp 16; Pulse Ox 99% on R/A; marianela 22:02 BP 152 / 44; Pulse 79; Resp 18; Pulse Ox 98% on R/A; tw5 15:57 Body Mass Index 25.82 (72.57 kg, 167.64 cm) ab2 ED Course: 15:38 Patient arrived in ED. am2 15:38 Casa Morton MD is Private Physician. am2 15:59 Triage completed. ab2 16:00 Uvaldo Branch MD is Attending Physician. kdr 16:01 Arm band placed on right wrist. ab2 18:10 Heather Fiore, TOI is Primary Nurse. ld1 18:25 Inserted saline lock: 22 gauge in right antecubital area, using aseptic technique. ld1 Blood collected. 19:12 Attending Physician role handed off by Uvaldo Branch MD ms3 19:12 Adria Moore DO is Attending Physician. ms3 19:57 Abdomen In Process Unspecified. EDMS 21:17 Urinalysis Sent. marianela 21:17 Urine Culture Sent. marianela 21:21 No provider procedures requiring assistance completed. marianela 21:22 Patient has correct armband on for positive identification. Bed in low position. Call marianela light in reach. Adult w/ patient. 21:36 Casa Morton MD is Referral Physician. ms3 22:02 assistant counsel on. Pulse ox on. NIBP on. Door closed. Noise minimized. Moved to tw5 private room. 22:02 IV discontinued, intact, bleeding controlled, No redness/swelling at site. Pressure tw5 dressing applied. Administered Medications: 19:02 Drug: NS 0.9% 500 ml Route: IV; Rate: bolus; Site: right antecubital; ld1 21:17 Follow up: IV Status: Completed infusion; IV Intake: 500ml marianela 19:02 Not Given (Patient Refused): Pepcid (famotidine) 20 mg IVP once; dilute with 10 mL 0.9% ld1 NaCl; give over 2 minutes 19:02 Drug: Zofran (Ondansetron) 4 mg Route: IVP; Site: right antecubital; ld1 19:02 Follow up: Response: No adverse reaction ld1 Intake: 21:17 IV: 500ml; Total: 500ml. marianela Outcome: 21:22 Condition: stable marianela 21:36 Discharge ordered by . ms3 22:02 Discharged to home via wheelchair, with family. tw5 22:02 Condition: improved 22:02 Discharge instructions given to patient, family, Instructed on discharge instructions, follow up and referral plans. medication usage, Demonstrated understanding of instructions, follow-up care, medications, Prescriptions given X 1. 22:03 Patient left the ED. tw5 Signatures: Dispatcher [employer] EDMS Uvaldo Branch MD MD kdr Moreno, Amanda amAdria Mariee DO DO ms3 Heather Fiore, RN RN ld1 Helen Michael tw5 Shikha Forbes RN RN bo Bleininger, Alexis ab2 Corrections: (The following items were deleted from the chart) 21:33 21:17 URINALYSIS+U.LAB.BRZ drawn and sent. marianela EDMS
--- NOTE | 2021-07-17 21:37 | EDPHYS ---
Physician Documentation [facility] Name: Bharati Lancaster Age: 81 yrs Sex: Female : 1940 Arrival Date: 07/17/2021 Time: 15:38 Bed 23 Private MD: Casa Morton V ED Physician Adria Moore HPI: 07/17 18:39 This 81 yrs old Female presents to ER via Wheelchair with complaints of kdr Nausea/Vomiting, Abdominal Pain. 18:39 The patient presents to the emergency department with nausea, that is mild, vomiting, kdr that is intermittent, diarrhea, that is intermittent, abdominal pain, of the abdomen diffusely. Onset: The symptoms/episode began/occurred yesterday. Possible causes: unknown. The symptoms are aggravated by nothing. The symptoms are alleviated by nothing. Associated signs and symptoms: Pertinent positives: abdominal pain, diarrhea, dysuria, nausea. Severity of symptoms: At their worst the symptoms were mild in the emergency department the symptoms are unchanged. The patient has not experienced similar symptoms in the past. The patient has not recently seen a physician. Historical: - Allergies: 15:59 Baclofen; ab2 15:59 ceftriaxone; ab2 15:59 Codeine; ab2 15:59 Cyclobenzaprine; ab2 15:59 Darvocet-N 100; ab2 15:59 Demerol; ab2 15:59 Hydrocodone-Acetaminophen; ab2 15:59 Morphine; ab2 15:59 PENICILLINS; ab2 15:59 plastic tape; ab2 15:59 Propoxyphene N-Acetaminophen; ab2 - Home Meds: 21:21 allopurinol 100 mg Oral tab 1 tab once daily [Active]; marianela - PMHx: 15:59 Aneurysm; chronic kidney disease; carpal tunnel; Diabetes - NIDDM; GERD; Gout; ab2 Hypothyroidism; Degenative join disease; DVT; CHF; Atrial Fib; Cerebrovascular accident; Cervical radicular pain; bladder infections; Hyperlipidemia; Hypertension; CVA; Cataract; - PSHx: 15:59 Aneurysm Mesh placement; Cholecystectomy; Left knee replacement; Stented artery; ab2 Appendectomy; - Immunization history:: Adult Immunizations up to date. - Social history:: Smoking status: Patient denies any tobacco usage or history of. ROS: 18:39 Constitutional: Negative for fever, chills, and weight loss, Eyes: Negative for injury, kdr pain, redness, and discharge, Neck: Negative for injury, pain, and swelling, Cardiovascular: Negative for chest pain, palpitations, and edema, Respiratory: Negative for shortness of breath, cough, wheezing, and pleuritic chest pain, Back: Negative for injury and pain, MS/Extremity: Negative for injury and deformity, Skin: Negative for injury, rash, and discoloration, Neuro: Negative for headache, weakness, numbness, tingling, and seizure activity. Psych: Negative for depression, anxiety, suicide ideation, homicidal ideation, and hallucinations, Allergy/Immunology: Negative for hives, rash, and allergies, Endocrine: Negative for neck swelling, polydipsia, polyuria, polyphagia, and marked weight changes, Hematologic/Lymphatic: Negative for swollen nodes, abnormal bleeding, and unusual bruising. 18:39 Abdomen/GI: Positive for abdominal pain, nausea, vomiting, and diarrhea, Negative for black/tarry stool, rectal pain, rectal bleeding, bowel incontinence. 18:39 : Positive for urinary symptoms, urinary frequency, small amounts, burning with urination. Exam: 18:39 Constitutional: This is a well developed, well nourished patient who is awake, alert, kdr and in no acute distress. Head/Face: Normocephalic, atraumatic. Eyes: Pupils equal round and reactive to light, extra-ocular motions intact. Lids and lashes normal. Conjunctiva and sclera are non-icteric and not injected. Cornea within normal limits. Periorbital areas with no swelling, redness, or edema. Neck: Trachea midline, no thyromegaly or masses palpated, and no cervical lymphadenopathy. Supple, full range of motion without nuchal rigidity, or vertebral point tenderness. No Meningismus. Chest/axilla: Normal chest wall appearance and motion. Nontender with no deformity. No lesions are appreciated. Cardiovascular: Regular rate and rhythm with a normal S1 and S2. No gallops, murmurs, or rubs. Normal PMI, no JVD. No pulse deficits. Respiratory: Lungs have equal breath sounds bilaterally, clear to auscultation and percussion. No rales, rhonchi or wheezes noted. No increased work of breathing, no retractions or nasal flaring. Abdomen/GI: Soft, non-tender, with normal bowel sounds. No distension or tympany. No guarding or rebound. No evidence of tenderness throughout. Back: No spinal tenderness. No costovertebral tenderness. Full range of motion. Skin: Warm, dry with normal turgor. Normal color with no rashes, no lesions, and no evidence of cellulitis. MS/ Extremity: Pulses equal, no cyanosis. Neurovascular intact. Full, normal range of motion. Neuro: Awake and alert, GCS 15, oriented to person, place, time, and situation. Cranial nerves II-XII grossly intact. Motor strength 5/5 in all extremities. Sensory grossly intact. Cerebellar exam normal. Normal gait. Psych: Awake, alert, with orientation to person, place and time. Behavior, mood, and affect are within normal limits. Vital Signs: 15:57 BP 108 / 45; Pulse 50; Resp 17; Temp 97.9(TE); Pulse Ox 99% on R/A; Weight 72.57 kg; ab2 Height 5 ft. 6 in. (167.64 cm); Pain 0/10; 18:26 BP 125 / 45; Pulse 47; Resp 18; Pulse Ox 99% ; ld1 21:17 BP 120 / 47; Pulse 42; Resp 16; Pulse Ox 99% on R/A; marianela 22:02 BP 152 / 44; Pulse 79; Resp 18; Pulse Ox 98% on R/A; tw5 15:57 Body Mass Index 25.82 (72.57 kg, 167.64 cm) ab2 MDM: 18:39 Data reviewed: vital signs, nurses notes, lab test result(s), radiologic studies. kdr Counseling: I had a detailed discussion with the patient and/or guardian regarding: the historical points, exam findings, and any diagnostic results supporting the discharge/admit diagnosis, lab results, radiology results. 19:12 Patient medically screened. ms3 07/17 18:10 Order name: CBC with Diff; Complete Time: 19:42 ld1 07/17 18:10 Order name: CMP; Complete Time: 19:42 ld1 07/17 18:10 Order name: Lipase; Complete Time: 19:42 ld1 07/17 18:38 Order name: Urine Culture kdr 07/17 20:44 Order name: Urine Dipstick-Ancillary; Complete Time: 21:27 EDMS 07/17 18:10 Order name: IV Saline Lock; Complete Time: 18:25 ld1 07/17 19:45 Order name: Abdomen ; Complete Time: 20:25 EDMS 07/17 21:07 Order name: Urinalysis; Complete Time: 21:37 EDMS 07/17 21:33 Order name: Urine Microscopic Only; Complete Time: 21:37 EDMS 07/17 18:10 Order name: Labs collected and sent; Complete Time: 18:25 ld1 Administered Medications: 19:02 Drug: NS 0.9% 500 ml Route: IV; Rate: bolus; Site: right antecubital; ld1 21:17 Follow up: IV Status: Completed infusion; IV Intake: 500ml marianela 19:02 Not Given (Patient Refused): Pepcid (famotidine) 20 mg IVP once; dilute with 10 mL 0.9% ld1 NaCl; give over 2 minutes 19:02 Drug: Zofran (Ondansetron) 4 mg Route: IVP; Site: right antecubital; ld1 19:02 Follow up: Response: No adverse reaction ld1 Disposition Summary: 07/17/21 21:36 Discharge Ordered Location: Home ms3 Condition: Stable ms3 Diagnosis - UTI/ Urinary tract infection, site not specified ms3 - Abdominal pain, unspecified ms3 Followup: ms3 - With: Casa Morton MD - When: 2 - 3 days - Reason: Re-evaluation by your physician Discharge Instructions: - Discharge Summary Sheet ms3 - Abdominal Pain, Adult ms3 - Urinary Tract Infection, Adult ms3 Forms: - Medication Reconciliation Form ms3 - Thank You Letter ms3 - Antibiotic Education ms3 - Prescription Opioid Use ms3 Prescriptions: - FOSFOMYCIN - take 3 gram by ORAL route one time; 3 gram; Refills: 0, Product Selection ms3 Permitted Signatures: Dispatcher [employer] EDMA Uvaldo Branch MD MD kdr Mickail, Joel, PA PA jmm Sims, Marcus, DO DO ms3 Heather Fiore RN RN ld1 Shikha Forbes RN RN bo Bleininger, Alexis ab2 Corrections: (The following items were deleted from the chart) 19:45 18:38 Abdomen Pelvis W Con+CT.RAD.BRZ ordered. EDMS EDMS 21:33 18:38 URINALYSIS+U.LAB.BRZ ordered. EDMS EDMS
[2021-07-18 02:46] VITALS: TEMP 97.9
[2021-07-18 02:50] VITALS: BP 152/44; O2SAT 98
== END 2021-07-17 22:03 | disposition home or self-care (01) ==
LOC: ER 15:31
DX: N39.0 Urinary tract infection, site not specified (principal); R11.2 Nausea with vomiting, unspecified; E11.22 Type 2 diabetes mellitus with diabetic chronic kidney disease; I13.0 Hypertensive heart and chronic kidney disease with heart failure and stage 1 through stage 4 chronic kidney disease, or unspecified chronic kidney disease; N18.9 Chronic kidney disease, unspecified; I50.9 Heart failure, unspecified; I48.91 Unspecified atrial fibrillation; Z88.0 Allergy status to penicillin; Z88.1 Allergy status to other antibiotic agents; Z88.5 Allergy status to narcotic agent; Z88.6 Allergy status to analgesic agent; Z91.048 Other nonmedicinal substance allergy status
CPT/HCPCS: 96361; 87088; 85025; 87086; 36415; 87077; 87186; 83690; 80053; 74176; 96374; 99284; J7040; J2405; 81003; 81015